=== PATIENT | male | born 1960 | race Caucasian/White ===

== ENCOUNTER 2017-08-23 09:18 | Day surgery (SDC) | END 2017-08-23 21:34 | disposition home or self-care (01) | DX: Z12.11 Encounter for screening for malignant neoplasm of colon (principal); K63.5 Polyp of colon; K64.8 Other hemorrhoids; I10 Essential (primary) hypertension | CPT/HCPCS: 45378; 93005; J2250; J3010; Z7610 ==

== ENCOUNTER 2017-10-26 11:53 | Day surgery (SDC) | END 2017-10-26 14:42 | disposition home or self-care (01) ==

== ENCOUNTER 2017-12-28 05:20 | Inpatient (IN) | END 2018-01-04 20:20 | disposition home health service (06) | DRG 330 ==

== ENCOUNTER 2018-01-08 06:10 | Inpatient (IN) | END 2018-01-15 21:15 | disposition home or self-care (01) | DRG 862 ==

== ENCOUNTER 2018-01-18 15:30 | Outpatient (CLI) | END 2018-01-18 15:59 | disposition home or self-care (01) ==

== ENCOUNTER 2018-02-01 14:33 | Outpatient (CLI) | END 2018-02-01 15:30 | disposition home or self-care (01) ==

== ENCOUNTER 2018-11-02 07:37 | Day surgery (SDC) | payer OTHER ==
[~2018-11-02] VITALS: Ht 172.7 cm; Wt 97.2 kg
[~2018-11-02 07:37] MED LIST: AMLO-147 PO; ATOR20TA38 PO; BENA10TA4 PO; CARV25TA79 PO; FURO20TA3 PO
[2018-11-02 08:11] VITALS: Ht 172.7 cm; Wt 97.2 kg
[2018-11-02] MEDS ORDERED: CAPE500T17 PO (08:19)
[2018-11-02] MEDS ORDERED: NIFE60TA18 PO (08:19)
[2018-11-02] MEDS ORDERED: APIX5TAB PO (08:19)
[2018-11-02] MEDS ORDERED: LOSA100T15 PO (08:19)
--- NOTE | 2018-11-02 08:37 | PREAC ---
Date/Time of Note Date/Time of Note DATE: 11/02/18 TIME: 08:34 Anesthesia Eval and Record Evaluation Time Pre-Procedure Interview DATE: 11/02/18 TIME: 08:34 Age 58 Sex male NPO: 8 hrs Preoperative diagnosis screening Planned procedure colonoscopy Past Medical History Past Medical History: Includes Cardio: HTN, Dyslipidemia Musculoskeletal: Other (hx of dvt) GI: Other (hx of sigmoid colon ca) Surgery & Anesthesia Issues No known issue Meds Anticoagulation: Yes Beta Maurizio within 24 hr: Yes Active Scripts Carvedilol* (Carvedilol*) 25 Mg Tablet, 25 MG PO BID for 30 Days, TAB Prov:DOELL PACHECO 01/15/18 Furosemide* (Furosemide*) 20 Mg Tablet, 20 MG PO DAILY for 30 Days, TAB Prov:ODELL PACHECO 01/15/18 Reported Medications Capecitabine* (Xeloda*) 500 Mg Tablet, 500 MG PO BID, TAB 11/02/18 Apixaban* (Eliquis*) 5 Mg Tablet, 5 MG PO BID, TAB 11/02/18 Losartan Potassium* (Losartan Potassium*) 100 Mg Tablet, 100 MG PO DAILY, TAB 11/02/18 Nifedipine* (Nifedipine ER*) 60 Mg Tablet.sa, 60 MG PO DAILY, TAB.SA 11/02/18 Atorvastatin Calcium* (Atorvastatin Calcium*) 20 Mg Tablet, 20 MG PO QHS, #30 TAB 01/07/18 Discontinued Scripts Benazepril Hcl* (Benazepril Hcl*) 10 Mg Tablet, 10 MG PO BID for 30 Days, TAB Prov:ODELL PACHECO 01/15/18 Amlodipine Besylate* (Amlodipine Besylate*) 10 Mg Tablet, 10 MG PO DAILY for 30 Days, TAB Prov:ODELL PACHECO 01/15/18 Meds reviewed: Yes Allergies Coded Allergies: No Known Allergy (Unverified , 01/07/18) Allergies Reviewed: Yes Labs/Studies Labs Reviewed: Reviewed by anesthesiologist test: N/A Pre-procedure Exam Airway: Adequate mouth opening, Adequate thyromental dist Mallampati: Mallampati II Teeth: Normal Lung: Normal Heart: Normal ASA Physical Status ASA physical status: 2 Emergency: None Planned Anesthetic General/MAC: MAC Planned Pain Management Parenteral pain med Pre-operative Attestations Prior to commencing anesthesia and surgery, the patient was re-evaluated, there was verification of: *The patient's identity *The results of appropriate recent lab work and preoperative vital signs *The above evaluation not changing prior to induction *Anesthetic plan, risk benefits, alternative and complications discussed with patient/family; questions answered; patient/family understands, accepts and wishes to proceed. JERRY HAIRSTON Nov 02, 2018 08:37
[2018-11-02] MEDS ORDERED: PROPOFOL 60 ML ONE (08:41)
[2018-11-02] MEDS ORDERED: LIDOCAINE 2% (SDV) 5 ML INJ ONE (08:42)
[2018-11-02 08:47] VITALS: BP 163/79; PULSE 51; RESP 14
[2018-11-02] MEDS ORDERED: ONDANSETRON 4 MG INJ IV PRN (09:00)
[2018-11-02] MEDS ORDERED: hydrALAzine 20 MG INJ IV PRN (09:00)
[2018-11-02] MEDS ORDERED: EPHEDrine SULFATE 50 MG/5 ML SYG IV PRN (09:00)
[2018-11-02] MEDS ORDERED: LABETALOL HCL 20MG INJ IV PRN (09:00)
[2018-11-02] MEDS ORDERED: FENTAnyl 50 MCG/ML VIAL IV PRN (09:00)
--- NOTE | 2018-11-02 09:49 | PAC ---
Date/Time of Note Date/Time of Note DATE: 11/02/18 TIME: 09:49 Post-Anesthesia Notes Post-Anesthesia Note Last documented vital signs Vital Signs Date Temp Pulse Resp B/P (MAP) Pulse Ox O2 O2 Flow FiO2 Time Delivery Rate 11/02/18 98.3 51 14 163/79 97 Room Air 09:47 (107) Activity: WNL Respiratory function: WNL Cardiovascular function: WNL Mental status: Baseline Pain reasonably controlled: Yes Hydration appropriate: Yes Nausea/Vomiting absent: Yes JERRY HAIRSTON Nov 02, 2018 09:49
== END 2018-11-02 12:17 | disposition home or self-care (01) ==
LOC: GIL 07:37
PROVIDERS: ATTEND Internal Medicine Gastroenterology
DX: Z12.11 Encounter for screening for malignant neoplasm of colon (principal); D12.0 Benign neoplasm of cecum; Z85.038 Personal history of other malignant neoplasm of large intestine; I10 Essential (primary) hypertension
CPT/HCPCS: 45380; 88305; Z7610

== ENCOUNTER 2019-01-21 06:18 | Inpatient (IN) | payer OTHER ==
[~2019-01-21] VITALS: Ht 170.2 cm; Wt 101.0 kg
[2019-01-21] VITALS (36 sets, daily range): BP systolic 87–134; BP diastolic 51–78; PULSE 48–93; RESP 12–20; BMI 32.5
[~2019-01-21 06:18] MED LIST changes: -AMLO-147 PO; +APIX5TAB PO; -BENA10TA4 PO; +CAPE500T17 PO; +LOSA100T15 PO; +NIFE60TA18 PO
[2019-01-21] MEDS ORDERED: BUPIVACAINE 0.25% (MPF) 30 ML INJ ONE (06:56)
[2019-01-21] MEDS ORDERED: DESFLURANE 15 MIN ONE (07:00)
[2019-01-21] MEDS ORDERED: SUGAMMADEX SODIUM 200 MG/2 ML VIAL IV ONE (07:00)
[2019-01-21] MEDS ORDERED: ONDANSETRON 4 MG INJ ONE (07:00)
[2019-01-21] MEDS ORDERED: hydrALAzine 20 MG INJ ONE (07:00)
[2019-01-21] MEDS ORDERED: ROCURONIUM 50 MG INJ ONE ×2 (07:00→07:18)
[2019-01-21] MEDS ORDERED: ALBUMIN HUMAN 25% 100 ML INJ ONE (07:00)
[2019-01-21] MEDS ORDERED: metroNIDAZOLE 500 MG/100 ML NS IVPB ONE (07:00)
[2019-01-21] MEDS ORDERED: FENTAnyl 50 MCG/ML VIAL ONE ×2 (07:18→09:35)
[2019-01-21] MEDS ORDERED: PROPOFOL 20 ML ONE (07:18)
[2019-01-21] MEDS ORDERED: SUCCINYLCHOLINE CHLORIDE 100 MG/5 ML SYG IV ONE (07:18)
[2019-01-21] MEDS ORDERED: MIDAZOLAM 1 MG/ML 2 ML INJ ONE (07:18)
[2019-01-21] MEDS ORDERED: ROPIVACAINE 0.5 % 30 ML VIAL ONE (07:19)
[2019-01-21] MEDS ORDERED: LIDOCAINE 2% (SDV) 5 ML INJ ONE (07:19)
[2019-01-21] MEDS ORDERED: METOCLOPRAMIDE 10 MG INJ ONE (07:19)
--- NOTE | 2019-01-21 07:36 | PREAC ---
Date/Time of Note Date/Time of Note DATE: 01/21/19 TIME: 07:34 Anesthesia Eval and Record Evaluation Time Pre-Procedure Interview DATE: 01/21/19 TIME: 07:34 Age 59 Sex male NPO: 8 hrs Preoperative diagnosis colostomy w/ herniation Planned procedure reversal of colostomy w/ mesh reinforcement Past Medical History Past Medical History: Includes Cardio: HTN, Dyslipidemia, Arrythmia, CHF Endo: Diabetes Pulm: Smoking Hx Neuro: Peripheral neuropathy Renal: CKD Hepatic: Other (s/p colostomy) GI: Obesity Heme: Coagulation disorder, Other (elequis, 2 days ago) Surgery & Anesthesia Issues No known issue Meds Anticoagulation: No Beta Maurizio within 24 hr: Yes Active Scripts Carvedilol* (Carvedilol*) 25 Mg Tablet, 25 MG PO BID for 30 Days, TAB Prov:ODELL PACHECO 01/15/18 Furosemide* (Furosemide*) 20 Mg Tablet, 20 MG PO DAILY for 30 Days, TAB Prov:CRISTAL PACHECOA 01/15/18 Reported Medications Apixaban* (Eliquis*) 5 Mg Tablet, 5 MG PO BID, TAB 11/02/18 Losartan Potassium* (Losartan Potassium*) 100 Mg Tablet, 100 MG PO DAILY, TAB 11/02/18 Nifedipine* (Nifedipine ER*) 60 Mg Tablet.sa, 60 MG PO BID, TAB.SA 11/02/18 Atorvastatin Calcium* (Atorvastatin Calcium*) 20 Mg Tablet, 20 MG PO QHS, #30 TAB 01/07/18 Discontinued Reported Medications Capecitabine* (Xeloda*) 500 Mg Tablet, 500 MG PO BID, TAB 11/02/18 Meds reviewed: Yes Allergies Coded Allergies: No Known Allergy (Unverified , 01/21/19) Allergies Reviewed: Yes Labs/Studies Labs Reviewed: Reviewed by anesthesiologist test: N/A Studies: ECG, CXR Pre-procedure Exam Airway: Adequate mouth opening, Adequate thyromental dist Mallampati: Mallampati III Teeth: Normal Lung: Normal Heart: Normal ASA Physical Status ASA physical status: 3 Emergency: None Planned Anesthetic General/MAC: ETT Planned Pain Management Sub-arachniod narcotics, Parenteral pain med, Other neuraxial med, Local by surgeon Pre-operative Attestations Prior to commencing anesthesia and surgery, the patient was re-evaluated, there was verification of: *The patient's identity *The results of appropriate recent lab work and preoperative vital signs *The above evaluation not changing prior to induction *Anesthetic plan, risk benefits, alternative and complications discussed with patient/family; questions answered; patient/family understands, accepts and wishes to proceed. MAGNOLIA MENDEZ MD Jan 21, 2019 07:36
[2019-01-21] MEDS ORDERED: morphine SULFATE/PF (10 MG/10 ML) INJ ONE (07:43)
[2019-01-21] MEDS ORDERED: EPINEPHrine 1 MG INJ ONE (07:45)
[2019-01-21] MEDS ORDERED: MIDAZOLAM 1 MG/ML 2 ML INJ IV PRN (08:00)
[2019-01-21] MEDS ORDERED: LEVALBUTEROL (NEB) 1.25 MG/0.5 ML AMP HHN PRN (08:00)
[2019-01-21] MEDS ORDERED: CEFAZOLIN 2 GM/50 ML (PMX) 50 ML IVPB ONE (08:00)
[2019-01-21] MEDS ORDERED: HYDROmorphONE 1 MG/5 ML IV SYRINGE IV PRN ×3 (08:00)
[2019-01-21] MEDS ORDERED: LORAZEPAM 2 MG INJ IV PRN (08:00)
[2019-01-21] MEDS ORDERED: ONDANSETRON 4 MG INJ IV PRN ×3 (08:00→12:00)
[2019-01-21] MEDS ORDERED: SOD CHLORIDE 0.9% 1,000 ML IV SCH (08:00)
[2019-01-21] MEDS ORDERED: DIPHENHYDRAMINE 50 MG INJ IV PRN ×3 (08:00→12:00)
[2019-01-21] MEDS ORDERED: IPRATROPIUM (NEB) 0.5 MG/2.5 ML AMP HHN PRN (08:00)
[2019-01-21] MEDS ORDERED: FENTAnyl 50 MCG/ML VIAL IV PRN ×2 (08:00)
[2019-01-21] MEDS ORDERED: MEPERIDINE 25 MG INJ IV PRN (08:00)
[2019-01-21] MEDS ORDERED: hydrALAzine 20 MG INJ IV PRN ×2 (08:00→14:00)
[2019-01-21] MEDS ORDERED: LABETALOL HCL 20MG INJ IV PRN (08:00)
[2019-01-21] MEDS ORDERED: AMPICILLIN/SULB 3 GM/NS (PMX) 100 ML IVPB SCH (09:00)
[2019-01-21] MEDS ORDERED: NALBUPHINE HCL (10 MG/1 ML) INJ IV PRN ×2 (10:00→12:00)
[2019-01-21] MEDS ORDERED: KETOROLAC 30 MG INJ IV PRN ×2 (10:00→12:00)
[2019-01-21] MEDS ORDERED: HYDROmorphONE 0.5 MG/0.5 ML SYG IV PRN ×2 (10:00)
[2019-01-21] MEDS ORDERED: FENTAnyl 2MCG/ML-ROPIV 0.2% 100 ML BAG EPI SCH ×2 (10:00→12:00)
[2019-01-21] MEDS ORDERED: ZOLPIDEM 5 MG TAB PO PRN ×2 (10:00→12:00)
[2019-01-21] MEDS ORDERED: HYDROCODONE/APAP (5/325) TAB PO PRN ×2 (10:00→12:00)
[2019-01-21] MEDS ORDERED: NALOXONE (0.4 MG/ML) INJ IV PRN ×2 (10:00→12:00)
[2019-01-21] MEDS ORDERED: HYDROmorphONE 2 MG/ML SYG ONE (10:08)
--- NOTE | 2019-01-21 11:43 | OPR ---
Date/Time of Note Date/Time of Note DATE: 01/21/19 TIME: 11:30 Operative Report Procedure Date: Jan 21, 2019 Preoperative Diagnosis colon cancer and colostomy status Postoperative Diagnosis same Operation/Procedure Performed 1. open hartmans' reversal and colorectal low pelvic anastomosis 2. segmental partial colectomy 3. open extensive lysis of adhesions 4. splenic flexure mobilization 5. open incarcerated incisional hernia repair 6. open incarcerated parastomal hernia repair 7. implantation of biologic mesh in the abdomen cpt code 88837 8. excision of cicatrix Surgeon see signature line Life Enrichment Director none Anesthesia Type: general Estimated Blood Loss: 100 - 150 ml's Transfusion none Specimen segmental colon Grafts/Implants none Complications none Pt Condition Post Procedure: stable Indications This is a 59-year-old male with a history of colon cancer in the sigmoid colon. He underwent segmental resection and end colostomy. He is undergone his chemotherapy and radiation is functional. He requests reversal of his colostomy. Risks alternatives benefits and percent were discussed the patient. In particular due to his comorbidities and his hypercoagulable state he was told that he has increased risk of bleeding infection and perioperative morbidity. Patient expressed understanding and request surgical anastomosis of his colon to allow colonic continuity. Ample time was given for questions and all questions were answered. Patient expressed understanding consents to the operation. Procedure Description Patient taken to the OR and prepped and draped in usual sterile fashion. Surgical time was performed. IV antibiotics given. 2-0 silk was used to close the colostomy in a running fashion to control any further output. Circular incision was made around the prior colostomy site with a 15 blade. Careful lysis of adhesion was performed with careful blunt dissection and with cautery the colostomy was completely mobilized. The large parastomal hernia was identified and this was also manually reduced after an extensive lysis of adhesions. The colostomy was then flipped over into the abdomen. Generous midline incision was made with a 10 blade excising the prior cicatrix. Cautery was used to go down to the area of the fascia. The fascia was opened with a 10 blade going layer by layer. Entry into the abdomen was made. This incision was taken up superiorly and inferiorly. At the superior mid epigastric region and incarcerated incisional hernia was identified. Incarcerated incisional hernia was then manually reduced. From this point extensive lysis of adhesions was performed along the wall of the abdomen laterally on both sides of the right and left. Additionally small bowel adhesions were also lysed. The colon was traced back to the colostomy site and further lysis of adhesions performed to allow full mobilization of the colostomy. Segmental resection of the colostomy and additional distal colon on the left side was sent for specimen. Doppler ultrasound was used to identify good vascular flow to the colostomy pedicle. Additional lysis of adhesions was performed to allow mobilization of the left colon the transverse colon. This was then reexamined for good hemostasis. The colon edges were freshened and good blood flow was visually seen in a pulsatile fashion. Additionally the pedicle was identified under direct Doppler which showed a biphasic flow to the colon. Additional lysis of adhesions was performed around the pelvis all the way down to the area of the rectum. Further lysis of adhesions was performed to allow good reach of the colon to the pelvis without any tension along the tension-free anastomosis. Anal sizers were used from 25 and then to 29 and this was manipulated all the way to the pelvis. The parastomal hernia was then addressed by closure with [id number] #1 Prolene. Underlay biologic 8 layer a soft mesh was then used to augment the repair of the parastomal hernia. The anvil portion was then sutured to the proximal end colostomy site with a pursestring 2-0 Prolene. The bladder was held out of harm's way by retraction with [id number] 0 chromic. EEA 29 mm stapler was then placed into the rectum and manipulated forward. The EEA stapler was opened and this was attached to the anvil of the colostomy site. This was then closed down and sealed and held down for approximately 1 minute. The EEA stapler was then fired. Leak test was performed by placing irrigation in the pelvis and closing the proximal colon to the anastomotic site. The rectum was then insufflated with bulb syringe with air. There is no evidence of any air leakage. Additionally 2 donuts were identified and the EEA stapler. Good hemostasis was ensured in the pelvic site. The fascia was then closed with the #1 loop PDS from inferior to superior and superior inferior and the incarcerated incisional hernia was repaired with running of the #1 loop PDS. This was then tied down in the middle. The surgical wound was irrigated and cleaned. The colostomy site was then irrigated and cleaned and then closed partially with a pursestring 2-0 Vicryl. Skin was closed using skin abbey. Dry dressings were applied. Ann FERNANDEZ Jan 21, 2019 11:43
--- NOTE | 2019-01-21 11:45 | PAC ---
Date/Time of Note Date/Time of Note DATE: 01/21/19 TIME: 11:45 Post-Anesthesia Notes Post-Anesthesia Note Last documented vital signs Vital Signs Date Temp Pulse Resp B/P (MAP) Pulse Ox O2 O2 Flow FiO2 Time Delivery Rate 01/21/19 97.1 48 16 133/78 99 Room Air 07:39 (96) Activity: WNL Respiratory function: WNL Cardiovascular function: WNL Mental status: Baseline Pain reasonably controlled: Yes Hydration appropriate: Yes Nausea/Vomiting absent: Yes MAGNOLIA MENDEZ MD Jan 21, 2019 11:45
[2019-01-21] MEDS ORDERED: TRIMETHOBENZAMIDE 100 MG/ML VIAL IM PRN (12:00)
[2019-01-21] MEDS: SOD CHLORIDE 0.9% 1,000 ML IV SCH ×2 (13:33→21:29)
--- NOTE | 2019-01-21 14:27 | HP ---
DATE OF ADMISSION: 01/21/2019 CHIEF COMPLAINT AND HISTORY OF PRESENT ILLNESS: The patient is a 59-year-old gentleman with a history of colon cancer diagnosed back in 10/2017. The patient in 12/2017 underwent left colon resection and leslee evaluation showed moderately differentiated metastatic carcinoma in 1/9 nodes. The patient was given chemotherapy and had an end colostomy. The patient was brought in to hospital today and underwent open Reagan reversal and colorectal low pelvic anastomosis, segmental partial colectomy, lysis of adhesion, open incarcerated incisional hernia repair, open incarcerated parastomal hernia repair. The patient is being admitted for the repair. Postoperatively, the patient is lethargic, but responds to verbal commands. Denies any chest pain. Since admission the patient has not had any vomiting, no reported fever or chills, no reported focal weakness. The patient's blood pressure has been running in the low 100s and high 90s. The patient also has history of left upper extremity deep venous thrombosis and had been taking Eliquis for that. The patient also has history of hypertension, dyslipidemia and was on multiple antihypertensive medications, although the patient's blood pressure is close to 100. The patient is moving all extremities, no resting leg pain. Other than postoperative pain, rest of the systems were unremarkable. PAST MEDICAL HISTORY: The patient has history of paroxysmal atrial fibrillation and was seen by Dr. Alejandro last year. Echocardiogram revealed EF of 60% to 65%. The patient's past medical history significant for postoperative abdominal wound infection during last admission and sepsis with bacteremia secondary to abdominal wound infection. ALLERGIES: None. SOCIAL HISTORY: No smoking or alcohol. FAMILY HISTORY: Noncontributory. PHYSICAL EXAMINATION: GENERAL: The patient sleepy, but arousable. VITAL SIGNS: Temperature 98.2, pulse 58, respirations 16, blood pressure 101/58, O2 saturation 100% on 3 liters. HEENT: No eye discharge or redness. Nose is normal. Oropharynx grossly negative. NECK: No mass. CHEST: Fairly clear. CARDIOVASCULAR: S1, S2 normal. ABDOMEN: Deferred due to recent surgery CVS: S1, S2 normal. The patient clinically is in sinus rhythm. No murmur or gallop. ABDOMEN: Soft, nontender, and reactive. Reduction was deferred due to recent surgery. EXTREMITIES: No edema. Pedal pulses palpable. SKIN: Without acute rash. NEUROLOGIC: The patient is lethargic but arousable and follows simple commands and postoperative labs revealed WBC 14.3, hemoglobin 12.3, platelet 208. Sodium 143, potassium 4.2, BUN 15, creatinine 1.1, glucose 171. Liver enzymes normal. IMPRESSION: 1. Stage III sigmoid colon cancer, status post surgery and chemo in 2018, now has been admitted for open Reagan reversal and colorectal low pelvic anastomosis. 2. History of hypertension. 3. Paroxysmal atrial fibrillation. 4. History of left upper extremity deep venous thrombosis. PLAN: The patient admitted on medical floor. The patient will be kept n.p.o. and be started on IV fluids. Will hold anticoagulants at this time due to recent surgery. For pain control, patient will also be given IV Unasyn and Flagyl as per protocol. For pain control, patient will be on Toradol, [place], and IV Dilaudid. We will use SCDs for DVT prophylaxis. We will add IV hydralazine on p.r.n. basis for hypertension since BP is only 101. All oral medications will be withheld. spoke with his children and staff nurse, Praveena. Repeat CBC and CMP will be obtained on 01/22/2019. Dictated By: ANDREY ZHENG MD AB/NTS Conf#: [id number] DID#: [id number] CC: JACOB FERNANDEZ MD;*EndCC* MTDD
[2019-01-21] MEDS: AMPICILLIN/SULB 3 GM/NS (PMX) 100 ML IVPB SCH ×2 (15:48→22:22)
[2019-01-21] MEDS: metroNIDAZOLE 500 MG/NS (PMX) 100 ML IVPB SCH (17:21)
[2019-01-21] MEDS ORDERED: ACETAMINOPHEN 1000MG/100ML IV 100 ML IVPB PRN (22:00)
[2019-01-22] VITALS (20 sets, daily range): BP systolic 95–140; BP diastolic 55–80; PULSE 88–123; RESP 18–22
[2019-01-22] MEDS ORDERED: SOD CHLORIDE 0.9% 1,000 ML IV ONE ×2 (00:30)
[2019-01-22] MEDS: metroNIDAZOLE 500 MG/NS (PMX) 100 ML IVPB SCH ×2 (00:40→08:46)
[2019-01-22] MEDS: SOD CHLORIDE 0.9% 1,000 ML IV SCH ×4 (01:43→17:29)
[2019-01-22] MEDS: AMPICILLIN/SULB 3 GM/NS (PMX) 100 ML IVPB SCH ×2 (03:15→10:07)
[2019-01-22] MEDS: HYDROmorphONE 0.5 MG/0.5 ML SYG IV PRN ×3 (08:53→20:21)
--- NOTE | 2019-01-22 13:48 | PN ---
Date/Time of Note Date/Time of Note DATE: 01/22/19 TIME: 13:43 Assessment/Plan VTE Prophylaxis Risk score (from [facility] [place]0 risk: 8 SCD applied (from [facility] [place]): Yes Pharmacological prophylaxis: NA/contraindicated Pharm contraindication: surgical contra Lines/Catheters IV [facility] Type (from [facility] Peripheral IV Assessment/Plan Hospital Course Patient with marginal urine output and increased BUN and creatinine continue IV fluids, pain is adequately controlled with IV Dilaudid patient's continues n.p.o. with ice chips only Assessment/Plan -S/p open Reagan reversal and colorectal low pelvic anastomosis, segmental partial colectomy, and open incarcerated incisional and parastomal hernia repairs with mesh by Dr. Art on 01/21/2019. Continue IV fluids and antibiotics. Continue Dilaudid and Toradol as needed for pain and Zofran as needed for nausea. -Stage III sigmoid colon cancer, status post surgery and chemo in 2018. -Acute kidney injury on chronic kidney disease, continue IV fluids monitor urine output BUN and creatinine. Dr. Stuart is asked to see patient in nephrology consultation. -Diastolic CHF -Paroxysmal atrial fibrillation, currently in sinus rhythm -Obstructive sleep apnea -History of hypertension -History of left upper extremity DVT Further recommendations based on clinical course. Plan of care discussed with Dr. Fox. Result Diagram: 01/22/1918 01/22/19 0918 Results 24hrs Laboratory Tests Test 01/22/19 03:07 01/22/19 09:18 White Blood Count 4.4 #L 7.4 # Red Blood Count 4.05 L 4.20 L Hemoglobin 12.4 L 13.0 L Hematocrit 37.2 L 38.6 L Mean Corpuscular Volume 91.9 91.9 Mean Corpuscular Hemoglobin 30.6 31.0 Mean Corpuscular Hemoglobin Concent 33.3 33.7 Red Cell Distribution Width 12.4 12.7 Platelet Count 153 # 153 Mean Platelet Volume 11.2 H 11.8 H Immature Granulocytes % 0.500 H 0.700 H Neutrophils % 82.9 H Lymphocytes % 6.7 L Monocytes % 9.4 Eosinophils % 0.0 Basophils % 0.5 Nucleated Red Blood Cells % 0.0 0.0 Immature Granulocytes # 0.020 0.050 H Neutrophils # 3.6 Lymphocytes # 0.3 L Monocytes # 0.4 Eosinophils # 0.0 Basophils # 0.0 Nucleated Red Blood Cells # 0.0 Segmented Neutrophils % (Manual) 12 L Band Neutrophils % (Manual) 65 H Lymphocytes % (Manual) 7 L Reactive Lymphocytes % (Manual) 1 H Monocytes % (Manual) 7 Metamyelocytes % (manual) 3 H Myelocytes % (Manual) 5 H Neutrophils # (Manual) 1.2 L Band Neutrophils # 4.8 H Lymphocytes (Manual) 0.5 L Reactive Lymphocytes # 0.0 Monocytes # (Manual) 0.5 Metamyelocytes # 0.2 H Myelocytes # 0.3 H Platelet Estimate NORMAL Polychromasia 1+ Poikilocytosis 1+ Anisocytosis 2+ Microcytosis 2+ Sodium Level 144 Potassium Level 4.3 Chloride Level 114 H Carbon Dioxide Level 16 L Anion Gap 14 H Blood Urea Nitrogen 33 #H Creatinine 3.22 #H Est Glomerular Filtrat Rate mL/min 20 L Glucose Level 78 # Calcium Level 7.9 L Total Bilirubin 1.0 Direct Bilirubin 0.00 Indirect Bilirubin 1.0 Aspartate Amino Transf (AST/SGOT) 25 Alanine Aminotransferase (ALT/SGPT) 23 Alkaline Phosphatase 48 Total Protein 5.4 L Albumin 3.0 L Globulin 2.40 Albumin/Globulin Ratio 1.25 Exam/Review of Systems Exam Vitals Vital Signs Date Temp Pulse Resp B/P (MAP) Pulse Ox O2 O2 Flow FiO2 Time Delivery Rate 01/22/19 99.1 105 18 115/74 91 11:35 (88) 01/22/19 Nasal 3.0 08:10 Cannula Intake and Output 01/21/19 01/21/19 01/22/19 1515:00 23:00 07:00 IntakeIntake Total 3200 ml 630 ml 2970 ml OutputOutput Total 350 ml 200 ml 125 ml BalanceBalance 2850 ml 430 ml 2845 ml Constitutional: alert, oriented (3) Head: normocephalic Neck: supple Respiratory: clear to auscultation Cardiovascular: regular rate and rhythm Gastrointestinal: soft, other (s/p surgery) Genitourinary - Male: other ([place]) Musculoskeletal: nl extremities to inspection Extremities: normal pulses Neurological: nl mental status Skin: nl turgor Results Results 24hrs Laboratory Tests Test 01/22/19 03:07 01/22/19 09:18 White Blood Count 4.4 #L 7.4 # Red Blood Count 4.05 L 4.20 L Hemoglobin 12.4 L 13.0 L Hematocrit 37.2 L 38.6 L Mean Corpuscular Volume 91.9 91.9 Mean Corpuscular Hemoglobin 30.6 31.0 Mean Corpuscular Hemoglobin Concent 33.3 33.7 Red Cell Distribution Width 12.4 12.7 Platelet Count 153 # 153 Mean Platelet Volume 11.2 H 11.8 H Immature Granulocytes % 0.500 H 0.700 H Neutrophils % 82.9 H Lymphocytes % 6.7 L Monocytes % 9.4 Eosinophils % 0.0 Basophils % 0.5 Nucleated Red Blood Cells % 0.0 0.0 Immature Granulocytes # 0.020 0.050 H Neutrophils # 3.6 Lymphocytes # 0.3 L Monocytes # 0.4 Eosinophils # 0.0 Basophils # 0.0 Nucleated Red Blood Cells # 0.0 Segmented Neutrophils % (Manual) 12 L Band Neutrophils % (Manual) 65 H Lymphocytes % (Manual) 7 L Reactive Lymphocytes % (Manual) 1 H Monocytes % (Manual) 7 Metamyelocytes % (manual) 3 H Myelocytes % (Manual) 5 H Neutrophils # (Manual) 1.2 L Band Neutrophils # 4.8 H Lymphocytes (Manual) 0.5 L Reactive Lymphocytes # 0.0 Monocytes # (Manual) 0.5 Metamyelocytes # 0.2 H Myelocytes # 0.3 H Platelet Estimate NORMAL Polychromasia 1+ Poikilocytosis 1+ Anisocytosis 2+ Microcytosis 2+ Sodium Level 144 Potassium Level 4.3 Chloride Level 114 H Carbon Dioxide Level 16 L Anion Gap 14 H Blood Urea Nitrogen 33 #H Creatinine 3.22 #H Est Glomerular Filtrat Rate mL/min 20 L Glucose Level 78 # Calcium Level 7.9 L Total Bilirubin 1.0 Direct Bilirubin 0.00 Indirect Bilirubin 1.0 Aspartate Amino Transf (AST/SGOT) 25 Alanine Aminotransferase (ALT/SGPT) 23 Alkaline Phosphatase 48 Total Protein 5.4 L Albumin 3.0 L Globulin 2.40 Albumin/Globulin Ratio 1.25 Medications Medication Current Medications Miscellaneous Information (* Miscellaneous Pharmacy Order) DURAMORPH: 3.5MG EPIDU... GIVEN NEURAXIAL XX ; Start 01/21/19 at 10:00 Ampicillin Sodium/ Sulbactam Sodium 100 ml @ 200 mls/hr Q6H IVPB Last administered on 01/22/19at 10:07; Admin Dose 200 MLS/HR; Start 01/21/19 at 15:00; Stop 01/22/19 at 14:59 Metronidazole 100 ml @ 100 mls/hr Q8H IVPB Last administered on 01/22/19at 08:46; Admin Dose 100 MLS/HR; Start 01/21/19 at 17:00; Stop 01/22/19 at 16:59 Sodium Chloride 1,000 ml @ 100 mls/hr Q10H IV Last administered on 01/22/19at 01:43; Admin Dose 100 MLS/HR; Start 01/21/19 at 11:29 Hydromorphone HCl (Dilaudid) 0.2 mg Q2H PRN IV .PAIN 1-5 Last administered on 01/22/19at 08:53; Admin Dose 0.2 MG; Start 01/21/19 at 12:00 Hydromorphone HCl (Dilaudid) 0.4 mg Q2H PRN IV .PAIN 6-10; Start 01/21/19 at 12:00 Ketorolac Tromethamine (Toradol) 30 mg Q6H PRN IV .PAIN 6-10; Start 01/21/19 at 12:00; Stop 01/24/19 at 11:59 Acetaminophen/ Hydrocodone Bitart ([place] (5/325)) 1 tab Q4H PRN PO .PAIN 4-6; Start 01/21/19 at 12:00 Diphenhydramine HCl (Benadryl) 25 mg Q4H PRN IV .PRURITUS; Start 01/21/19 at 12:00 Nalbuphine HCl (Nubain) 10 mg Q4H PRN IV .PRURITUS; Start 01/21/19 at 12:00 Ondansetron HCl (Zofran Inj) 4 mg Q6H PRN IV .NAUSEA/VOMITING; Start 01/21/19 at 12:00 Trimethobenzamide HCl (Tigan) 200 mg Q6H PRN IM .NAUSEA/VOMITING; Start 01/21/19 at 12:00 Zolpidem Tartrate (Ambien) 5 mg HS MAY REPEAT X 1 PRN PO .INSOMNIA; Start 01/21/19 at 12:00 Naloxone HCl (Narcan) 0.2 mg Q2M PRN IV .RESP RATE; Start 01/21/19 at 12:00 Hydralazine HCl (Apresoline) 10 mg Q4H PRN IV >150/95; Start 01/21/19 at 14:00 Acetaminophen 100 ml @ 400 mls/hr Q6H PRN IVPB PAIN/FEVER; Start 01/21/19 at 22:00; Stop 01/22/19 at 21:59 ODELL PACHECO Jan 22, 2019 13:48
--- NOTE | 2019-01-22 14:06 | PN ---
Date/Time of Note Date/Time of Note DATE: 01/22/19 TIME: 14:04 Assessment/Plan VTE Prophylaxis Risk score (from [facility] [place])>0 risk: 7 SCD applied (from 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 renal insufficiency on top of baseline insufficiency continue fluid bolus and monitoring closely Result Diagram: 01/22/1918 01/22/1918 Results 24hrs Laboratory Tests Test 01/22/19 03:07 01/22/19 09:18 White Blood Count 4.4 #L 7.4 # Red Blood Count 4.05 L 4.20 L Hemoglobin 12.4 L 13.0 L Hematocrit 37.2 L 38.6 L Mean Corpuscular Volume 91.9 91.9 Mean Corpuscular Hemoglobin 30.6 31.0 Mean Corpuscular Hemoglobin Concent 33.3 33.7 Red Cell Distribution Width 12.4 12.7 Platelet Count 153 # 153 Mean Platelet Volume 11.2 H 11.8 H Immature Granulocytes % 0.500 H 0.700 H Neutrophils % 82.9 H Lymphocytes % 6.7 L Monocytes % 9.4 Eosinophils % 0.0 Basophils % 0.5 Nucleated Red Blood Cells % 0.0 0.0 Immature Granulocytes # 0.020 0.050 H Neutrophils # 3.6 Lymphocytes # 0.3 L Monocytes # 0.4 Eosinophils # 0.0 Basophils # 0.0 Nucleated Red Blood Cells # 0.0 Segmented Neutrophils % (Manual) 12 L Band Neutrophils % (Manual) 65 H Lymphocytes % (Manual) 7 L Reactive Lymphocytes % (Manual) 1 H Monocytes % (Manual) 7 Metamyelocytes % (manual) 3 H Myelocytes % (Manual) 5 H Neutrophils # (Manual) 1.2 L Band Neutrophils # 4.8 H Lymphocytes (Manual) 0.5 L Reactive Lymphocytes # 0.0 Monocytes # (Manual) 0.5 Metamyelocytes # 0.2 H Myelocytes # 0.3 H Platelet Estimate NORMAL Polychromasia 1+ Poikilocytosis 1+ Anisocytosis 2+ Microcytosis 2+ Sodium Level 144 Potassium Level 4.3 Chloride Level 114 H Carbon Dioxide Level 16 L Anion Gap 14 H Blood Urea Nitrogen 33 #H Creatinine 3.22 #H Est Glomerular Filtrat Rate mL/min 20 L Glucose Level 78 # Calcium Level 7.9 L Total Bilirubin 1.0 Direct Bilirubin 0.00 Indirect Bilirubin 1.0 Aspartate Amino Transf (AST/SGOT) 25 Alanine Aminotransferase (ALT/SGPT) 23 Alkaline Phosphatase 48 Total Protein 5.4 L Albumin 3.0 L Globulin 2.40 Albumin/Globulin Ratio 1.25 Subjective 24 Hr Interval Summary Free Text/Dictation increased Cr. suspect prerenal on top of baseline renal insufficiency albumin was given by anesthesiologist during the operationg otherwise doing well Exam/Review of Systems Exam Vitals Vital Signs Date Temp Pulse Resp B/P (MAP) Pulse Ox O2 O2 Flow FiO2 Time Delivery Rate 01/22/19 107 12:01 01/22/19 99.1 18 115/74 91 11:35 (88) 01/22/19 Nasal 3.0 08:10 Cannula Intake and Output 01/21/19 01/21/19 01/22/19 1515:00 23:00 07:00 IntakeIntake Total 3200 ml 630 ml 2970 ml OutputOutput Total 350 ml 200 ml 125 ml BalanceBalance 2850 ml 430 ml 2845 ml Exam c/d/i Results Results 24hrs Laboratory Tests Test 01/22/19 03:07 01/22/19 09:18 White Blood Count 4.4 #L 7.4 # Red Blood Count 4.05 L 4.20 L Hemoglobin 12.4 L 13.0 L Hematocrit 37.2 L 38.6 L Mean Corpuscular Volume 91.9 91.9 Mean Corpuscular Hemoglobin 30.6 31.0 Mean Corpuscular Hemoglobin Concent 33.3 33.7 Red Cell Distribution Width 12.4 12.7 Platelet Count 153 # 153 Mean Platelet Volume 11.2 H 11.8 H Immature Granulocytes % 0.500 H 0.700 H Neutrophils % 82.9 H Lymphocytes % 6.7 L Monocytes % 9.4 Eosinophils % 0.0 Basophils % 0.5 Nucleated Red Blood Cells % 0.0 0.0 Immature Granulocytes # 0.020 0.050 H Neutrophils # 3.6 Lymphocytes # 0.3 L Monocytes # 0.4 Eosinophils # 0.0 Basophils # 0.0 Nucleated Red Blood Cells # 0.0 Segmented Neutrophils % (Manual) 12 L Band Neutrophils % (Manual) 65 H Lymphocytes % (Manual) 7 L Reactive Lymphocytes % (Manual) 1 H Monocytes % (Manual) 7 Metamyelocytes % (manual) 3 H Myelocytes % (Manual) 5 H Neutrophils # (Manual) 1.2 L Band Neutrophils # 4.8 H Lymphocytes (Manual) 0.5 L Reactive Lymphocytes # 0.0 Monocytes # (Manual) 0.5 Metamyelocytes # 0.2 H Myelocytes # 0.3 H Platelet Estimate NORMAL Polychromasia 1+ Poikilocytosis 1+ Anisocytosis 2+ Microcytosis 2+ Sodium Level 144 Potassium Level 4.3 Chloride Level 114 H Carbon Dioxide Level 16 L Anion Gap 14 H Blood Urea Nitrogen 33 #H Creatinine 3.22 #H Est Glomerular Filtrat Rate mL/min 20 L Glucose Level 78 # Calcium Level 7.9 L Total Bilirubin 1.0 Direct Bilirubin 0.00 Indirect Bilirubin 1.0 Aspartate Amino Transf (AST/SGOT) 25 Alanine Aminotransferase (ALT/SGPT) 23 Alkaline Phosphatase 48 Total Protein 5.4 L Albumin 3.0 L Globulin 2.40 Albumin/Globulin Ratio 1.25 Medications Medication Current Medications Miscellaneous Information (* Miscellaneous Pharmacy Order) DURAMORPH: 3.5MG EPIDU... GIVEN NEURAXIAL XX ; Start 01/21/19 at 10:00 Ampicillin Sodium/ Sulbactam Sodium 100 ml @ 200 mls/hr Q6H IVPB Last administered on 01/22/19at 10:07; Admin Dose 200 MLS/HR; Start 01/21/19 at 15:00; Stop 01/22/19 at 14:59 Metronidazole 100 ml @ 100 mls/hr Q8H IVPB Last administered on 01/22/19at 08:46; Admin Dose 100 MLS/HR; Start 01/21/19 at 17:00; Stop 01/22/19 at 16:59 Sodium Chloride 1,000 ml @ 100 mls/hr Q10H IV Last administered on 01/22/19at 01:43; Admin Dose 100 MLS/HR; Start 01/21/19 at 11:29 Hydromorphone HCl (Dilaudid) 0.2 mg Q2H PRN IV .PAIN 1-5 Last administered on 01/22/19at 08:53; Admin Dose 0.2 MG; Start 01/21/19 at 12:00 Hydromorphone HCl (Dilaudid) 0.4 mg Q2H PRN IV .PAIN 6-10; Start 01/21/19 at 12:00 Ketorolac Tromethamine (Toradol) 30 mg Q6H PRN IV .PAIN 6-10; Start 01/21/19 at 12:00; Stop 01/24/19 at 11:59 Acetaminophen/ Hydrocodone Bitart ([place] (5/325)) 1 tab Q4H PRN PO .PAIN 4-6; Start 01/21/19 at 12:00 Diphenhydramine HCl (Benadryl) 25 mg Q4H PRN IV .PRURITUS; Start 01/21/19 at 12:00 Nalbuphine HCl (Nubain) 10 mg Q4H PRN IV .PRURITUS; Start 01/21/19 at 12:00 Ondansetron HCl (Zofran Inj) 4 mg Q6H PRN IV .NAUSEA/VOMITING; Start 01/21/19 at 12:00 Trimethobenzamide HCl (Tigan) 200 mg Q6H PRN IM .NAUSEA/VOMITING; Start 01/21/19 at 12:00 Zolpidem Tartrate (Ambien) 5 mg HS MAY REPEAT X 1 PRN PO .INSOMNIA; Start 01/21/19 at 12:00 Naloxone HCl (Narcan) 0.2 mg Q2M PRN IV .RESP RATE; Start 01/21/19 at 12:00 Hydralazine HCl (Apresoline) 10 mg Q4H PRN IV >150/95; Start 01/21/19 at 14:00 Acetaminophen 100 ml @ 400 mls/hr Q6H PRN IVPB PAIN/FEVER; Start 01/21/19 at 22:00; Stop 01/22/19 at 21:59 Ann FERNANDEZ Jan 22, 2019 14:06
[2019-01-22] MEDS ORDERED: SODIUM CHLORIDE 0.9% 1L BAG IV* ONE (14:30)
--- NOTE | 2019-01-22 17:01 | OPPN ---
Date/Time of Note Date/Time of Note DATE: 01/22/19 TIME: 16:58 Anesthesia Follow up Anesthesia Follow up Last documented vital signs Vital Signs Date Temp Pulse Resp B/P (MAP) Pulse Ox O2 O2 Flow FiO2 Time Delivery Rate 01/22/19 112 16:01 01/22/19 100.0 21 132/75 95 15:21 (94) 01/22/19 Nasal 3.0 08:10 Cannula Respiratory function: WNL Cardiovascular function: WNL Comments Patient seen and examined at bedside. VSS w/ BP 110/74, P 81, RR 18, SaO2 on RA. Pt reports only a 2/10 pain scale and after discussion with attending surgeon, decision made to D/C epidural catheter and ambulate when able. Positioned L lateral, occlusive dressings removed, and epidural catheter removed completely with tip documented as intact. Pt tolerated process well and bandaid placed over catheter site. Site without erythema, induration of signs of infection. Thank you for allowing my assistance with this patient's care. MAGNOLIA MENDEZ MD Jan 22, 2019 17:01
--- NOTE | 2019-01-22 20:36 | CONS ---
DATE OF ADMISSION: 01/21/2019 DATE OF CONSULTATION: 01/22/2019 TYPE OF CONSULTATION: Nephrology. REASON FOR CONSULTATION: Acute kidney injury. PHYSICIAN REQUESTING CONSULT: Andrey Fox MD HISTORY OF PRESENT ILLNESS: This is a 59-year-old male with a past medical history of colon cancer d iagnosed in 10/2017. The patient is status post left colon resection. The patient is status post ch emotherapy. The patient had end colostomy. The patient also has history of hypertension and AFib. The patient was brought in to [facility] to undergo open Reagan's reversal. The patient underwent surgical takedown of his colostomy. Following the procedure, the patient was admit susanna to telemetry for continued evaluation. Prior to surgery, the patient denied any hemoptysis, citlaly temesis or hematochezia. In terms of patient's renal history, the patient denies any prior history of acute kidney injury or C KD. Denies any frothy urine, any rashes. Following surgery, the patient had elevated creatinine of 3.22 mg/dL. The patient had marginal urinary output. PAST MEDICAL HISTORY: As stated above, history of colon cancer, history of hypertension, history of AFib, history of left upper extremity DVT. FAMILY HISTORY: No family history of kidney disease. SOCIAL HISTORY: The patient does not drink, smoke or do drugs. ALLERGIES: NONE. PAST SURGICAL HISTORY: Status post left colon resection with end colostomy. MEDICATIONS: Have been reviewed. REVIEW OF SYSTEMS: A 14-point review of systems was conducted. Pertinent positives stated in HPI, o therwise negative. PHYSICAL EXAMINATION: VITAL SIGNS: Blood pressure is 100/62, respirations 16, pulse 70, temperature 98.2. HEENT: Head is normocephalic. NECK: Supple. HEART: Regular rate. LUNGS: Show diminished breath sounds at base. ABDOMEN: Soft, positive tenderness to palpation. Positive dressing clean, dry, intact. DERMATOLOGIC: No rashes. MUSCULOSKELETAL: No joint effusions. NEUROLOGIC: No focal deficits. LABORATORY DATA: Show sodium 144, potassium 4.3, bicarbonate 16, BUN 33, creatinine 3.22. White cou nt 10.4, hemoglobin 13.0, platelet count is 153. IMAGING STUDIES: Reviewed. Chest x-ray shows a mild increased interstitial edema. ASSESSMENT AND PLAN: This is a 59-year-old male who presents with: 1. Oliguric acute kidney injury with previously normal baseline creatinine. Etiology of acute kidne y injury is concerning for acute tubular necrosis, possibly due to hemodynamics and questionable anes thesia-induced hypertension, NSAID use. The patient's creatinine has increased from 1.1 to 3.2 mg/dL in 24-hour period. The patient has no overt signs of uremia. Plan at this point is to do a full ev aluation. We will check UA with microanalysis, check urine electrolytes. We will check a renal ultr asound to evaluate renal parenchyma and rule out obstruction, although suspicion is low. We would co ntinue supportive care, renally dose meds, avoid nephrotoxins. Discontinue any NSAIDs. Monitor the patient closely on IV fluids. No immediate need for renal replacement therapy at this time. 2. Metabolic acidosis secondary to acute kidney injury. Monitor bicarbonate levels. No need for bi carbonate therapy. 3. Mild anemia. Monitor hemoglobin and hematocrit levels. 4. Mineral bone disorder. Monitor calcium and phosphorus level. 5. History of colon cancer. The patient is status post Reagan's reversal. We will continue to mo nitor. Follow up with general surgery. Continue pain control. 6. History of stage III sigmoid colon cancer, status post surgical resection, status post chemothera py. 7. Acute heart failure. The patient has noted pulmonary congestion, elevated jugular venous distent ion. We would deescalate IV fluids and monitor closely. 8. Obstructive sleep apnea. 9. History of hypertension. 10. Paroxysmal atrial fibrillation. Continue medical management. 11. History of left upper extremity deep venous thrombosis. Thank you, Dr. Fox, for this interesting consult. It will be a pleasure to follow patient with you throughout the hospital course. Dictated By: SUSAN ZURITA DO NR/NTS Conf#: [id number] DID#: [id number] CC: ANDREY FOX MD; JACOB FERNANDEZ MD;*EndCC*
[2019-01-23] VITALS (10 sets, daily range): BP systolic 135–149; BP diastolic 83–90; PULSE 118–137; RESP 18–20
[2019-01-23] MEDS ORDERED: FUROSEMIDE 40 MG INJ IV ONE ×2 (00:30→09:30)
[2019-01-23] MEDS: CEFTRIAXONE 1 GM/50 ML (PMX) 50 ML IVPB SCH (00:39)
--- NOTE | 2019-01-23 10:20 | PN ---
DATE: 01/23/2019 Overnight, the patient was noted to be short of breath. The patient was given diuretic therapy with improvement in urinary output. No other acute events noted. No hemoptysis, hematemesis, hematochezi a. OBJECTIVE: VITAL SIGNS: Blood pressure is 149/90, respiration 18, pulse 131, temperature 99.6. HEENT: Head is normocephalic. NECK: Supple. HEART: Regular rate. LUNGS: Show diminished breath sounds at the base. Positive crackles. ABDOMEN: Soft, nontender to palpation. No rebound or guarding. EXTREMITIES: Negative for clubbing, cyanosis, no edema. DERMATOLOGIC: No rashes. MUSCULOSKELETAL: No joint effusion. NEUROLOGIC: No change in exam. MEDICATIONS: The patient's medications have been reviewed. LABORATORY DATA: Shows sodium 146, BUN 38, creatinine 2.78, magnesium 1.6. Urinalysis was reviewed, showed a of less than 1%, a white count of 13.1, hemoglobin 13.0, platelet count is 149. ASSESSMENT AND PLAN: 1. Nonoliguric acute kidney injury with previously normal baseline creatinine. Etiology of JULIETA is c oncerning for possible acute tubular necrosis likely due to hemodynamics, possible NSAID use. Zay t's renal function has improved in the last 24 hours. Recommendation at this point would be to willam nue current treatment plan. I will deescalate IV fluids as the patient is volume overloaded. Will c ontinue diuretic therapy, monitor renal function closely. Continue supportive care, renally dose all meds, avoid nephrotoxins. 2. Volume overload. The patient has noted pulmonary congestion. Will discontinue normal saline. C ontinue diuretic therapy, monitor I's and O's closely. 3. Acute hypoxemic respiratory failure, severe volume overload. Continue diuretic therapy. 4. Tachyarrhythmia, possibly due to heart failure. Continue to monitor. Other etiologies may be fr om anxiety and pain. Continue pain medication. Consider cardiology evaluation. 5. Metabolic acidosis secondary to acute kidney injury. Continue to monitor. 6. Mild anemia. Monitor hemoglobin and hematocrit levels. 7. Mineral bone disorder. Monitor calcium and phosphorus levels. 8. History of colon cancer, status post Reagan reversal, continue to monitor. 9. History of hypertension. 10. History of deep venous thrombosis. Dictated By: SUSAN HERNANDEZ/MARIAN Conf#: [id number] DID#: [id number] CC: ANDREY ZHENG MD; JACOB FERNANDEZ MD;*EndCC*
[2019-01-23] MEDS: DEXTROSE 5% 1,000 ML IV SCH (10:31)
[2019-01-23] MEDS ORDERED: MAGNESIUM SULFATE 2 GM/50 ML 50 ML IVPB ONE (11:00)
[2019-01-23] MEDS: HYDROmorphONE 0.5 MG/0.5 ML SYG IV PRN ×2 (11:36→20:14)
--- NOTE | 2019-01-23 14:25 | PN ---
Date/Time of Note Date/Time of Note DATE: 01/23/19 TIME: 14:13 Assessment/Plan VTE Prophylaxis Risk score (from [facility])>0 risk: 7 SCD applied (from [facility]): Yes Pharmacological prophylaxis: NA/contraindicated Pharm contraindication: surgical contra Lines/Catheters IV [facility]ter Type [facility]from [facility] Peripheral IV Urinary Cath still in place: Yes Reason Cath still needed: urinary retention Assessment/Plan Hospital Course Patient with tachycardia, low-grade fever, and increased conjectured congestion per chest x-ray. Urine output improved with Lasix. Pending 2D echo. Dr. Alejandro is asked to see patient in cardiology consultation. Patient had bowel movement and was able to get up and work with physical therapy earlier today and currently feels tired. Patient's condition and plan of care discussed with patient and patient's son at the bedside. Assessment/Plan -S/p open Reagan reversal and colorectal low pelvic anastomosis, segmental partial colectomy, and open incarcerated incisional and parastomal hernia repairs with mesh by Dr. Art on 01/21/2019. Continue IV fluids and antibiotics. Continue Dilaudid and Toradol as needed for pain and Zofran as needed for nausea. -Stage III sigmoid colon cancer, status post surgery and chemo in 2018. -Acute kidney injury on chronic kidney disease, monitor urine output BUN and creatinine. Dr. Stuart is following in nephrology consultation. -Acute diastolic CHF -Paroxysmal atrial fibrillation, currently in sinus rhythm -Obstructive sleep apnea -History of hypertension -History of left upper extremity DVT Further recommendations based on clinical course. Plan of care discussed with Dr. Fox. Result Diagram: 01/23/19 0515 01/23/19 0515 Results 24hrs Laboratory Tests Test 01/22/19 20:00 01/23/19 05:15 Urine Color JACQUELINE Urine Clarity CLOUDY A Urine pH 5.0 Urine Specific [place] 1.021 Urine Ketones NEGATIVE Urine Nitrite NEGATIVE Urine Bilirubin NEGATIVE Urine Urobilinogen NEGATIVE Urine Leukocyte Esterase NEGATIVE Urine Microscopic RBC 8 H Urine Microscopic WBC 0 Urine Mucus FEW A Urine Hemoglobin 2+ H Urine Random Creatinine 205.16 Urine Random Sodium < 13 L Urine Glucose NEGATIVE Urine Total Protein 45.0 H White Blood Count 13.1 #H Red Blood Count 4.28 L Hemoglobin 13.0 L Hematocrit 39.0 L Mean Corpuscular Volume 91.1 Mean Corpuscular Hemoglobin 30.4 Mean Corpuscular Hemoglobin Concent 33.3 Red Cell Distribution Width 13.0 Platelet Count 149 Mean Platelet Volume 11.8 H Immature Granulocytes % 8.100 H Neutrophils % Segmented Neutrophils % (Manual) 23 L Band Neutrophils % (Manual) 65 H Lymphocytes % Lymphocytes % (Manual) 5 L Monocytes % Monocytes % (Manual) 3 Eosinophils % Basophils % Metamyelocytes % (manual) 4 H Nucleated Red Blood Cells % 0.0 Immature Granulocytes # 1.060 H Neutrophils # Neutrophils # (Manual) 4.1 Band Neutrophils # 8.5 H Lymphocytes (Manual) 0.6 L Lymphocytes # Monocytes # Monocytes # (Manual) 0.3 Eosinophils # Basophils # Metamyelocytes # 0.5 H Nucleated Red Blood Cells # Platelet Estimate NORMAL Poikilocytosis 1+ Anisocytosis 1+ Microcytosis 1+ Sodium Level 146 H Potassium Level 4.0 Chloride Level 117 H Carbon Dioxide Level 16 L Anion Gap 13 Blood Urea Nitrogen 38 H Creatinine 2.78 H Est Glomerular Filtrat Rate mL/min 23 L Glucose Level 92 Calcium Level 8.5 Phosphorus Level 4.7 Magnesium Level 1.6 L Exam/Review of Systems Exam Vitals Vital Signs Date Temp Pulse Resp B/P (MAP) Pulse Ox O2 O2 Flow FiO2 Time Delivery Rate 01/23/19 136 12:46 01/23/19 99.9 18 144/83 93 12:14 (103) 01/23/19 Nasal 3.0 08:44 Cannula Intake and Output 01/22/19 01/22/19 01/23/19 1515:00 23:00 07:00 IntakeIntake Total 200 ml 3058 ml 720 ml OutputOutput Total 260 ml 275 ml 1400 ml BalanceBalance -60 ml 2783 ml -680 ml Exam Constitutional: alert, oriented Respiratory: clear to auscultation Cardiovascular: regular rate and rhythm Gastrointestinal: soft, other (s/p surgery) Genitourinary - Male: other ([place]) Musculoskeletal: nl extremities to inspection Extremities: normal pulses Neurological: nl mental status Results Results 24hrs Laboratory Tests Test 01/22/19 20:00 01/23/19 05:15 Urine Color JACQUELINE Urine Clarity CLOUDY A Urine pH 5.0 Urine Specific [place] 1.021 Urine Ketones NEGATIVE Urine Nitrite NEGATIVE Urine Bilirubin NEGATIVE Urine Urobilinogen NEGATIVE Urine Leukocyte Esterase NEGATIVE Urine Microscopic RBC 8 H Urine Microscopic WBC 0 Urine Mucus FEW A Urine Hemoglobin 2+ H Urine Random Creatinine 205.16 Urine Random Sodium < 13 L Urine Glucose NEGATIVE Urine Total Protein 45.0 H White Blood Count 13.1 #H Red Blood Count 4.28 L Hemoglobin 13.0 L Hematocrit 39.0 L Mean Corpuscular Volume 91.1 Mean Corpuscular Hemoglobin 30.4 Mean Corpuscular Hemoglobin Concent 33.3 Red Cell Distribution Width 13.0 Platelet Count 149 Mean Platelet Volume 11.8 H Immature Granulocytes % 8.100 H Neutrophils % Segmented Neutrophils % (Manual) 23 L Band Neutrophils % (Manual) 65 H Lymphocytes % Lymphocytes % (Manual) 5 L Monocytes % Monocytes % (Manual) 3 Eosinophils % Basophils % Metamyelocytes % (manual) 4 H Nucleated Red Blood Cells % 0.0 Immature Granulocytes # 1.060 H Neutrophils # Neutrophils # (Manual) 4.1 Band Neutrophils # 8.5 H Lymphocytes (Manual) 0.6 L Lymphocytes # Monocytes # Monocytes # (Manual) 0.3 Eosinophils # Basophils # Metamyelocytes # 0.5 H Nucleated Red Blood Cells # Platelet Estimate NORMAL Poikilocytosis 1+ Anisocytosis 1+ Microcytosis 1+ Sodium Level 146 H Potassium Level 4.0 Chloride Level 117 H Carbon Dioxide Level 16 L Anion Gap 13 Blood Urea Nitrogen 38 H Creatinine 2.78 H Est Glomerular Filtrat Rate mL/min 23 L Glucose Level 92 Calcium Level 8.5 Phosphorus Level 4.7 Magnesium Level 1.6 L Medications Medication Current Medications Miscellaneous Information (* Miscellaneous Pharmacy Order) DURAMORPH: 3.5MG EPIDU... GIVEN NEURAXIAL XX ; Start 01/21/19 at 10:00 Hydromorphone HCl (Dilaudid) 0.2 mg Q2H PRN IV .PAIN 1-5 Last administered on 01/22/19at 16:08; Admin Dose 0.2 MG; Start 01/21/19 at 12:00 Hydromorphone HCl (Dilaudid) 0.4 mg Q2H PRN IV .PAIN 6-10 Last administered on 01/23/19at 11:36; Admin Dose 0.4 MG; Start 01/21/19 at 12:00 Acetaminophen/ Hydrocodone Bitart ([place] (5/325)) 1 tab Q4H PRN PO .PAIN 4-6; Start 01/21/19 at 12:00 Diphenhydramine HCl (Benadryl) 25 mg Q4H PRN IV .PRURITUS; Start 01/21/19 at 12:00 Nalbuphine HCl (Nubain) 10 mg Q4H PRN IV .PRURITUS; Start 01/21/19 at 12:00 Ondansetron HCl (Zofran Inj) 4 mg Q6H PRN IV .NAUSEA/VOMITING Last administered on 01/22/19at 23:48; Admin Dose 4 MG; Start 01/21/19 at 12:00 Trimethobenzamide HCl (Tigan) 200 mg Q6H PRN IM .NAUSEA/VOMITING; Start 01/21/19 at 12:00 Zolpidem Tartrate (Ambien) 5 mg HS MAY REPEAT X 1 PRN PO .INSOMNIA; Start 01/21/19 at 12:00 Naloxone HCl (Narcan) 0.2 mg Q2M PRN IV .RESP RATE; Start 01/21/19 at 12:00 Hydralazine HCl (Apresoline) 10 mg Q4H PRN IV >150/95; Start 01/21/19 at 14:00 Ceftriaxone Sodium 50 ml @ 100 mls/hr Q24H IVPB Last administered on 01/23/19 00:39; Admin Dose 100 MLS/HR; Start 01/23/19 at 00:30 Dextrose 1,000 ml @ 40 mls/hr Q24H IV Last administered on 01/23/19at 10:31; Admin Dose 40 MLS/HR; Start 01/23/19 at 09:30 ODELL PACHECO Jan 23, 2019 14:23
[2019-01-23] MEDS ORDERED: DIGOXIN 500 MCG INJ IV ONE (20:30)
--- NOTE | 2019-01-23 23:44 | RADRPT ---
Echocardiogram Report Patient Name: ASHTYN PATRICKPatient ID: [id number] : 1960 (59y )Study Date: 01/23/2019 7:45:06 AM Gender: MAccession #: [id number] Tech: [facility] Location: Ref.Physician: ANDREY ZHENG Height(Cm): BSA: Weight(Kg): Quality: AdequateAccount #: Procedures: Echocardiographic Report: Transthoracic echocardiogram with complete 2D, M-Mode, and doppler examination. Indications: Post-op, and Tachycardia. Measurements: 2D/M Mode Doppler Measurement Value Normal Range Measurement Value Normal Range LVIDd 2D 3.4 [ 4.2 - 5.8 ] cm CARLY VTI 2.9 [ 2.0 - 4.0 ] cm2 LVIDs 2D 2.5 [ 2.5 - 4.0 ] cm AV Mean José Miguel 1.4 [ 70.0 - 90.0 ] cm/sec LVPWd 2D 1.5 [ 0.6 - 1.0 ] cm AV Mean PG 9.0 [ 2.0 - 4.0 ] mmHg IVSd 2D 1.6 [ 0.6 - 1.0 ] cm AV VTI 30.0 cm AoR Diam 2D 3.0 [ 2.6 - 3.4 ] cm LVOT Mean José Miguel 0.9 [ 60.0 - 80.0 ] cm/sec EDV 2D 47.4 [ 62.0 - 150.0 ] ml LVOT Mean PG 4.0 [ 1.0 - 3.0 ] mmHg ESV 2D 22.3 [ 21.0 - 61.0 ] ml LVOT Peak José Miguel 1.4 [ 70.0 - 110.0 ] cm/sec EF 2D 53.0 [ 52.0 - 72.0 ] percent LVOT Peak PG 8.0 [ 2.0 - 6.0 ] mmHg LA Dimen 2D 2.9 [ 3.0 - 4.0 ] cm LVOT VTI 23.2 [ 20.0 - 30.0 ] cm LVOT Diam 2.2 [ 2.3 - 2.9 ] cm TR Peak José Miguel 3.3 [ 100.0 - 280.0 ] cm/sec TR Peak PG 44.0 mmHg RVSP 52.0 [ 10.0 - 36.0 ] mmHg RA Pressure 8.0 mmHg Findings: Left Ventricle: Normal left ventricular systolic function. Normal left ventricular cavity size. Moderate concentric left ventricular hypertrophy. Ejection fraction is visually estimated at 65 %. Tissue Doppler/Mitral Doppler indices are consistent with impaired relaxation (Stage I diastolic dysfunction). Right Ventricle: Normal right ventricular size. Normal right ventricular systolic function. Left Atrium: The left atrium is normal in size. Right Atrium: The right atrium is normal in size. Mitral Valve: Mitral valve leaflets appear mildly thickened. Mild mitral annular calcification. Trace mitral regurgitation. Aortic Valve: Aortic valve Max velocity 2.18 m/sec. Max PG 19.00 mmHg. Mean PG 9.00 mmHg. Aortic sclerosis without significant stenosis. Trace aortic valve regurgitation. Tricuspid Valve: Normal appearance of the tricuspid valve. Estimated peak PA systolic pressure 52 mmHg. There is mild tricuspid regurgitation. Pulmonic Valve: Pulmonic valve not well visualized. Pericardium: Small pericardial effusion. Aorta: Normal aortic root. IVC: The IVC is not well visualized. Conclusions: Normal left ventricular systolic function. Normal left ventricular cavity size. Moderate concentric left ventricular hypertrophy. Ejection fraction is visually estimated at 65 %. Tissue Doppler/Mitral Doppler indices are consistent with impaired relaxation (Stage I diastolic dysfunction). Mitral valve leaflets appear mildly thickened. Mild mitral annular calcification. Trace mitral regurgitation. Aortic valve Max velocity 2.18 m/sec. Max PG 19.00 mmHg. Mean PG 9.00 mmHg. Aortic sclerosis without significant stenosis. Trace aortic valve regurgitation. Normal appearance of the tricuspid valve. Estimated peak PA systolic pressure 52 mmHg. There is mild tricuspid regurgitation. Electronically Signed By: Mihir Alejandro 2019-01-23 23:43:15 PDT
[2019-01-24] VITALS (16 sets, daily range): BP systolic 121–164; BP diastolic 77–93; PULSE 47–180; RESP 18–22
[2019-01-24] MEDS: CEFTRIAXONE 1 GM/50 ML (PMX) 50 ML IVPB SCH (01:09)
--- NOTE | 2019-01-24 01:21 | CONS ---
DATE OF ADMISSION: 01/21/2019 DATE OF CONSULTATION: 01/23/2019 REASON FOR CONSULTATION: Tachycardia, history of paroxysmal atrial fibrillation, hypertension. REQUESTING PHYSICIAN: Andrey Zheng MD HISTORY OF PRESENT ILLNESS: Mr. Kelly is a 59-year-old male with history of colon cancer chrystal gnosed back in 10/2017, status post colostomy. The patient was given chemotherapy. The patient was subsequently brought back for reversal of his colostomy which he underwent 01/21/[address] Fernandez. Po stoperatively, the patient has had significant pain and episodes of tachycardia very recently up to t he 120s and 130s starting in the evening last night. Additionally, the patient has had low-grade fev ers of 100 to 100.5. The patient at this time denies chest pain. Has significant abdominal pain. N o significant shortness of breath. PAST MEDICAL HISTORY: As above in the HPI. MEDICATIONS CURRENTLY IN THE HOSPITAL: 1. Ceftriaxone. 2. Hydralazine 10 IV push q.4h. p.r.n. 3. Fork p.r.n. 4. Benadryl p.r.n. 5. Dilaudid 0.4 mg q.2h. p.r.n. pain. ALLERGIES: NO KNOWN DRUG ALLERGIES. SOCIAL HISTORY: No current tobacco, ETOH or illicit drug use. FAMILY HISTORY: No history of sudden cardiac or early CAD. REVIEW OF SYSTEMS: As above in the HPI. CONSTITUTIONAL: No fevers, chills. Brief positive fevers. PULMONARY: No current shortness of breath. CARDIOVASCULAR: Tachycardia. GASTROINTESTINAL: Status post reversal of colostomy. GENITOURINARY: No hematuria. MUSCULOSKELETAL: Degenerative joint disease. PSYCHIATRIC: No documented psych history. NEUROLOGIC: No documented history of CVA. ENDOCRINE: No documented history of diabetes mellitus. PHYSICAL EXAMINATION: VITAL SIGNS: T current most recent 100.5, blood pressure 141/83, pulse 118, O2 sat 93% on 3 liters. GENERAL: The patient is alert, awake, in significant pain. NECK: JVP approximately 8 to 9 cm of water. CHEST: Fair movement throughout with mildly decreased breath sounds at the bases bilaterally with po or inspiratory effort. HEART: Tachycardic, regular rhythm, normal S1, S2, I/ systolic murmur. ABDOMEN: Distended. Dressing covering over the front of the abdomen with significant tenderness to palpation diffusely. EXTREMITIES: No significant pitting edema, 1+ pulses bilateral posterior tibial. LABORATORY DATA: Most recent from today, white count of 13.1, hemoglobin 13, platelet count of 149. Sodium 146, potassium 4, creatinine 2.78, BUN of 38. UA negative. Magnesium 1.6. IMAGING STUDIES: A chest x-ray from the revealing a mildly increased interstitial edema suggesti ng cardiopulmonary congestion, mildly increased bibasilar atelectasis. ELECTROCARDIOGRAM: No recent EKGs in the chart for my review at this time. The only EKG available f or my review at this time is what appears to be the patient's outpatient preop EKG which reveals a si nus bradycardia at a rate of 54, normal axis, normal intervals with lateral biphasic T-wave abnormali ties, isolated in leads aVL. IMPRESSION: 1. Tachycardia, at this time sinus tachycardia in the setting of significant pain, fevers, status po st surgery. 2. Possible congestive heart failure by chest x-ray with the patient having the onset of acute renal failure at this time. 3. Hypertension, mildly elevated. 4. Postoperative status post reversal colostomy. 5. Fevers postop. 6. Renal failure, acute. 7. History of colon carcinoma status post prior colectomy with colostomy. 8. Hypernatremia, mild. 9. Hypomagnesemia. 10. Leukocytosis. RECOMMENDATIONS: 1. At this time, we would maintain patient on telemetry monitoring to follow rhythm and rate control closely. 2. We would initiate patient on IV push beta meka as necessary to improve overall heart rate cont rol. 3. We would continue the patient's IV fluid hydration at this time. 4. Continue the patient's antibiotics and follow up all culture data. 5. We will increase pain control. 6. We will check a 2D echo to reassess patient's ejection fraction, last known to be 60% to 65% by sridevi sloan, 01/10/2019. Thank you for allowing me to take part in the care of this patient. I will continue to follow along very closely with you, with recommendations to be made as the patient progresses through his [facility] clinical course. Dictated By: EUGENE EMERY/MARIAN Conf#: [id number] DID#: [id number] CC: JACOB FERNANDEZ MD; ANDREY ZHENG MD;*EndCC*
[2019-01-24] MEDS: HYDROmorphONE 0.5 MG/0.5 ML SYG IV PRN ×4 (02:02→23:39)
[2019-01-24] MEDS: DEXTROSE 5% 1,000 ML IV SCH (08:24)
--- NOTE | 2019-01-24 08:43 | PN ---
Date/Time of Note Date/Time of Note DATE: 01/24/19 TIME: 08:41 Assessment/Plan VTE Prophylaxis Risk score (from Ns)>0 risk: 7 SCD applied (from Ns): Yes Pharmacological prophylaxis: other Lines/Catheters IV Catheter Type (from Nrsg): Peripheral IV Urinary Cath still in place: Yes Reason Cath still needed: other (indicate) (renal insufficiency) Assessment/Plan Assessment/Plan colon cancer s/p resection s/p chemo and was re anastomosed doing well but will start diet slowly due to his chemo will start abx empirically due to increased wbc JULIETA on CKD slowly improving start clears today Result Diagram: 01/24/1951201/24/1913 Results 24hrs Laboratory Tests Test 01/24/19 00:22 01/24/19 05:13 01/24/19 05:14 Troponin I 0.028 0.015 White Blood Count 15.9 #H Red Blood Count 4.02 L Hemoglobin 12.3 L Hematocrit 36.6 L Mean Corpuscular Volume 91.0 Mean Corpuscular Hemoglobin 30.6 Mean Corpuscular Hemoglobin Concent 33.6 Red Cell Distribution Width 13.4 Platelet Count 135 L Mean Platelet Volume 12.1 H Immature Granulocytes % 0.400 Neutrophils % Segmented Neutrophils % (Manual) 92 H Band Neutrophils % (Manual) 1 Lymphocytes % Lymphocytes % (Manual) 2 L Monocytes % Monocytes % (Manual) 5 Eosinophils % Basophils % Nucleated Red Blood Cells % 0.0 Immature Granulocytes # 0.070 H Neutrophils # Neutrophils # (Manual) 14.6 H Band Neutrophils # 0.1 Lymphocytes (Manual) 0.3 L Lymphocytes # Monocytes # Monocytes # (Manual) 0.7 Eosinophils # Basophils # Nucleated Red Blood Cells # Platelet Estimate DECREASED Giant Platelets 1 H Polychromasia 1+ Poikilocytosis 1+ Anisocytosis 1+ Sodium Level 144 Potassium Level 4.0 Chloride Level 113 H Carbon Dioxide Level 19 L Anion Gap 12 Blood Urea Nitrogen 53 H Creatinine 2.29 H Est Glomerular Filtrat Rate mL/min 29 L Glucose Level 140 # Calcium Level 8.6 Phosphorus Level 4.1 Magnesium Level 2.2 Subjective 24 Hr Interval Summary Free Text/Dictation patient doing well, walking and pain managed appropriately increased WBC acute on chronic renal insufficiency improving had two bm minimal flatus Exam/Review of Systems Exam Vitals Vital Signs Date Temp Pulse Resp B/P (MAP) Pulse Ox O2 O2 Flow FiO2 Time Delivery Rate 01/24/19 114 08:01 01/24/19 99.9 22 164/86 96 Nasal 5.0 07:14 (112) Cannula Intake and Output 01/23/19 01/23/19 01/24/19 1515:00 23:00 07:00 IntakeIntake Total 50 ml 100 ml 1050 ml OutputOutput Total 1300 ml 800 ml BalanceBalance 50 ml -1200 ml 250 ml Exam c/d/i ostomy packing removal no peritoneal signs Results Results 24hrs Laboratory Tests Test 01/24/19 00:22 01/24/19 05:13 01/24/19 05:14 Troponin I 0.028 0.015 White Blood Count 15.9 #H Red Blood Count 4.02 L Hemoglobin 12.3 L Hematocrit 36.6 L Mean Corpuscular Volume 91.0 Mean Corpuscular Hemoglobin 30.6 Mean Corpuscular Hemoglobin Concent 33.6 Red Cell Distribution Width 13.4 Platelet Count 135 L Mean Platelet Volume 12.1 H Immature Granulocytes % 0.400 Neutrophils % Segmented Neutrophils % (Manual) 92 H Band Neutrophils % (Manual) 1 Lymphocytes % Lymphocytes % (Manual) 2 L Monocytes % Monocytes % (Manual) 5 Eosinophils % Basophils % Nucleated Red Blood Cells % 0.0 Immature Granulocytes # 0.070 H Neutrophils # Neutrophils # (Manual) 14.6 H Band Neutrophils # 0.1 Lymphocytes (Manual) 0.3 L Lymphocytes # Monocytes # Monocytes # (Manual) 0.7 Eosinophils # Basophils # Nucleated Red Blood Cells # Platelet Estimate DECREASED Giant Platelets 1 H Polychromasia 1+ Poikilocytosis 1+ Anisocytosis 1+ Sodium Level 144 Potassium Level 4.0 Chloride Level 113 H Carbon Dioxide Level 19 L Anion Gap 12 Blood Urea Nitrogen 53 H Creatinine 2.29 H Est Glomerular Filtrat Rate mL/min 29 L Glucose Level 140 # Calcium Level 8.6 Phosphorus Level 4.1 Magnesium Level 2.2 Medications Medication Current Medications Miscellaneous Information (* Miscellaneous Pharmacy Order) DURAMORPH: 3.5MG EPIDU... GIVEN NEURAXIAL XX ; Start 01/21/19 at 10:00 Hydromorphone HCl (Dilaudid) 0.2 mg Q2H PRN IV .PAIN 1-5 Last administered on 01/22/19at 16:08; Admin Dose 0.2 MG; Start 01/21/19 at 12:00 Hydromorphone HCl (Dilaudid) 0.4 mg Q2H PRN IV .PAIN 6-10 Last administered on 01/24/19at 05:34; Admin Dose 0.4 MG; Start 01/21/19 at 12:00 Acetaminophen/ Hydrocodone Bitart ([place] (5/325)) 1 tab Q4H PRN PO .PAIN 4-6; Start 01/21/19 at 12:00 Diphenhydramine HCl (Benadryl) 25 mg Q4H PRN IV .PRURITUS; Start 01/21/19 at 12: 00 Nalbuphine HCl (Nubain) 10 mg Q4H PRN IV .PRURITUS; Start 01/21/19 at 12:00 Ondansetron HCl (Zofran Inj) 4 mg Q6H PRN IV .NAUSEA/VOMITING Last administered on 01/22/19at 23:48; Admin Dose 4 MG; Start 01/21/19 at 12:00 Trimethobenzamide HCl (Tigan) 200 mg Q6H PRN IM .NAUSEA/VOMITING; Start 01/21/19 at 12:00 Zolpidem Tartrate (Ambien) 5 mg HS MAY REPEAT X 1 PRN PO .INSOMNIA; Start 01/21/19 at 12:00 Naloxone HCl (Narcan) 0.2 mg Q2M PRN IV .RESP RATE; Start 01/21/19 at 12:00 Hydralazine HCl (Apresoline) 10 mg Q4H PRN IV >150/95 Last administered on 01/24/19at 05:34; Admin Dose 10 MG; Start 01/21/19 at 14:00 Dextrose 1,000 ml @ 40 mls/hr Q24H IV Last administered on 01/24/19at 08:24; Admin Dose 40 MLS/HR; Start 01/23/19 at 09:30 Metoprolol Tartrate (Lopressor) 5 mg Q4H PRN IV HR>110 HOld SBP<100; Start 01/23/19 at 20:30 Piperacillin Sod/ Tazobactam Sod 100 ml @ 200 mls/hr Q8 IVPB ; Start 01/24/19 at 09:00; Status UNV Metronidazole 100 ml @ 100 mls/hr Q8 IVPB ; Start 01/24/19 at 09:00; Status Ann PENALOZA Jan 24, 2019 08:43
[2019-01-24] MEDS: PIPER-TAZO 3.375 GM IV (PMX) 100 ML IVPB SCH ×3 (09:21→21:30)
[2019-01-24] MEDS: metroNIDAZOLE 500 MG/NS (PMX) 100 ML IVPB SCH ×3 (09:22→22:36)
--- NOTE | 2019-01-24 09:23 | PN ---
DATE: 01/24/2019 SUBJECTIVE: The patient continues to have abdominal pain. The patient has shortness of breath, stab le on 5 liters nasal cannula. No other acute events noted. OBJECTIVE: VITAL SIGNS: Blood pressure is 164/86, respiration 22, pulse 111, temperature 98.9. Patient's I's a nd O's reviewed. HEENT: Head is normocephalic. NECK: Supple. HEART: Regular rate. LUNGS: Show diminished breath sounds at the base. ABDOMEN: Soft, nontender to palpation without rebound or guarding. EXTREMITIES: Negative for clubbing, cyanosis, no edema. DERMATOLOGIC: No rashes. MUSCULOSKELETAL: No joint effusion. NEUROLOGIC: No change in exam. MEDICATIONS: Reviewed. LABORATORY DATA: Shows sodium 144, potassium 4.0, chloride 113, bicarbonate 19, BUN 53, creatinine 2 .29. White count 15.9, hemoglobin 12.3, platelet count is 135. ASSESSMENT AND PLAN: 1. Nonoliguric acute kidney injury with previously normal baseline creatinine. Etiology of acute ki dney injury is secondary to acute tubular necrosis due to hemodynamics, NSAID use. The patient's danya al function has been improving as the patient is entering recovery phase of acute tubular necrosis. At this point, continue current treatment plan. Continue supportive care, renally dose all meds. 2. Volume overload. The patient continues to have noted pulmonary congestion, respiratory distress. The patient's IV fluids were discontinued. Will continue diuretic therapy. Consider repeating fitz st x-ray. 4. Acute hypoxic respiratory failure secondary to pulmonary edema. Continue diuretic regimen. 5. Tachyarrhythmia. Etiology is multifactorial secondary to respiratory failure, pain. Continue cu rrent pain regimen. Continue medical management and monitor. 6. Metabolic acidosis secondary to acute kidney injury. Continue current treatment plan. 7. Anemia. Continue to monitor hemoglobin and hematocrit levels. 8. Systemic inflammatory response syndrome, possible sepsis. Continue current antibiotic regimen. 9. History of colon cancer, status post Reagan reversal. 10. Hypertension. Continue current blood pressure regimen. 11. History of deep venous thrombosis. 12. Hypernatremia, improved. Continue hypertonic fluid. Dictated By: SUSAN HERNANDEZ/MARIAN Conf#: [id number] DID#: [id number] CC: JACOB FERNANDEZ MD;*EndCC*
[2019-01-24] MEDS: ALBUTEROL/IPRATROPIUM (NEB) 3 ML AMP HHN SCH ×3 (09:29→20:00)
[2019-01-24] MEDS ORDERED: FUROSEMIDE 20 MG INJ IV ONE (09:30)
--- NOTE | 2019-01-24 13:23 | CONS ---
Assessment/Plan Assessment/Plan Hospital Course (Demo Recall) IMPRESSION: 1. Tachycardia, at this time sinus tachycardia in the setting of significant pain, fevers, status post surgery. NL EF by echo 60-65 2. Possible congestive heart failure by chest x-ray with the patient having the onset of acute renal failure at this time. 3. Hypertension, mildly elevated. 4. Postoperative status post reversal colostomy. 5. Fevers postop. 6. Renal failure, acute. 7. History of colon carcinoma status post prior colectomy with colostomy. 8. Hypernatremia, mild. 9. Hypomagnesemia. 10. Leukocytosis. Recc: -Tele -IVP BB -Pain control -Continue abx's and f/u cx data -Follow volume status closely -ONgoing renal eval and follow-up Consultation Date/Type/Reason Admit Date/Time Jan 21, 2019 at 06:18 Initial Consult Date 01/23/19 Type of Consult Cardiology Reason for Consultation tachycardia Requesting Provider: ROSIE ROCHA Date/Time of Note DATE: 01/24/19 TIME: 13:19 Exam/Review of Systems Vital Signs Vitals Vital Signs Date Temp Pulse Resp B/P (MAP) Pulse Ox O2 O2 Flow FiO2 Time Delivery Rate 01/24/19 107 12:00 01/24/19 98.0 20 141/83 96 Nasal 11:07 (102) Cannula 01/24/19 5.0 40 09:32 Intake and Output 01/23/19 01/23/19 01/24/19 1515:00 23:00 07:00 IntakeIntake Total 50 ml 100 ml 1050 ml OutputOutput Total 1300 ml 800 ml BalanceBalance 50 ml -1200 ml 250 ml Exam Exam Review of Systems: CONSTITUTIONAL: No fevers, chills. PULMONARY: No sob CARDIOVASCULAR: No chest pain/palpitations GASTROINTESTINAL: abd pain GENITOURINARY: No hematuria/dysuria. MUSCULOSKELETAL: No myagias/arthalgias. PSYCHIATRIC: The patient denies depression. NEUROLOGIC: No weakness Constitutional: alert, oriented Psych: no complaints Head: normocephalic ENMT: mucosa pink and moist Neck: supple, jvd (9 cm water) Respiratory: diminished breath sounds (at bases/B) Cardiovascular: other (tachycardic, regular rhythm) Gastrointestinal: soft Musculoskeletal: muscle tone (normal) Extremities: edema (none) Neurological: other (NO focal deficits) Labs Result Diagram: 01/24/19 0513 01/24/19 0513 Results 24hrs Laboratory Tests Test 01/24/19 00:22 01/24/19 05:13 01/24/19 05:14 Troponin I 0.028 0.015 White Blood Count 15.9 #H Red Blood Count 4.02 L Hemoglobin 12.3 L Hematocrit 36.6 L Mean Corpuscular Volume 91.0 Mean Corpuscular Hemoglobin 30.6 Mean Corpuscular Hemoglobin Concent 33.6 Red Cell Distribution Width 13.4 Platelet Count 135 L Mean Platelet Volume 12.1 H Immature Granulocytes % 0.400 Neutrophils % Segmented Neutrophils % (Manual) 92 H Band Neutrophils % (Manual) 1 Lymphocytes % Lymphocytes % (Manual) 2 L Monocytes % Monocytes % (Manual) 5 Eosinophils % Basophils % Nucleated Red Blood Cells % 0.0 Immature Granulocytes # 0.070 H Neutrophils # Neutrophils # (Manual) 14.6 H Band Neutrophils # 0.1 Lymphocytes (Manual) 0.3 L Lymphocytes # Monocytes # Monocytes # (Manual) 0.7 Eosinophils # Basophils # Nucleated Red Blood Cells # Platelet Estimate DECREASED Giant Platelets 1 H Polychromasia 1+ Poikilocytosis 1+ Anisocytosis 1+ Sodium Level 144 Potassium Level 4.0 Chloride Level 113 H Carbon Dioxide Level 19 L Anion Gap 12 Blood Urea Nitrogen 53 H Creatinine 2.29 H Est Glomerular Filtrat Rate mL/min 29 L Glucose Level 140 # Calcium Level 8.6 Phosphorus Level 4.1 Magnesium Level 2.2 Medications Medications Current Medications Miscellaneous Information (* Miscellaneous Pharmacy Order) DURAMORPH: 3.5MG EPIDU... GIVEN NEURAXIAL XX ; Start 01/21/19 at 10:00 Hydromorphone HCl (Dilaudid) 0.2 mg Q2H PRN IV .PAIN 1-5 Last administered on 01/22/19at 16:08; Admin Dose 0.2 MG; Start 01/21/19 at 12:00 Hydromorphone HCl (Dilaudid) 0.4 mg Q2H PRN IV .PAIN 6-10 Last administered on 01/24/19at 05:34; Admin Dose 0.4 MG; Start 01/21/19 at 12:00 Acetaminophen/ Hydrocodone Bitart ([place] (5/325)) 1 tab Q4H PRN PO .PAIN 4-6; Start 01/21/19 at 12:00 Diphenhydramine HCl (Benadryl) 25 mg Q4H PRN IV .PRURITUS; Start 01/21/19 at 12:00 Nalbuphine HCl (Nubain) 10 mg Q4H PRN IV .PRURITUS; Start 01/21/19 at 12:00 Ondansetron HCl (Zofran Inj) 4 mg Q6H PRN IV .NAUSEA/VOMITING Last administered on 01/22/19at 23:48; Admin Dose 4 MG; Start 01/21/19 at 12:00 Trimethobenzamide HCl (Tigan) 200 mg Q6H PRN IM .NAUSEA/VOMITING; Start 01/21/19 at 12:00 Zolpidem Tartrate (Ambien) 5 mg HS MAY REPEAT X 1 PRN PO .INSOMNIA; Start 01/21/19 at 12:00 Naloxone HCl (Narcan) 0.2 mg Q2M PRN IV .RESP RATE; Start 01/21/19 at 12:00 Hydralazine HCl (Apresoline) 10 mg Q4H PRN IV >150/95 Last administered on 01/24/19at 05:34; Admin Dose 10 MG; Start 01/21/19 at 14:00 Dextrose 1,000 ml @ 40 mls/hr Q24H IV Last administered on 01/24/19at 08:24; Admin Dose 40 MLS/HR; Start 01/23/19 at 09:30 Metoprolol Tartrate (Lopressor) 5 mg Q4H PRN IV HR>110 HOld SBP<100; Start 01/23/19 at 20:30 Piperacillin Sod/ Tazobactam Sod 100 ml @ 200 mls/hr Q8 IVPB Last administered on 01/24/19 09:21; Admin Dose 200 MLS/HR; Start 01/24/19 at 09:00 Metronidazole 100 ml @ 100 mls/hr Q8 IVPB Last administered on 01/24/19at 09:22; Admin Dose 100 MLS/HR; Start 01/24/19 at 09:00 Albuterol/ Ipratropium (Duoneb) 3 ml Q6HWA RESP THERAPY HHN Last administered on 01/24/19at 09:29; Admin Dose 3 ML; Start 01/24/19 at 09:00 EUGENE ANDERSON Jan 24, 2019 13:22
--- NOTE | 2019-01-24 14:01 | PN ---
Date/Time of Note Date/Time of Note DATE: 01/24/19 TIME: 13:56 Assessment/Plan VTE Prophylaxis Risk score (from Ns)>0 risk: 10 SCD applied (from Ns): Yes Pharmacological prophylaxis: NA/contraindicated Pharm contraindication: surgical contra Lines/Catheters IV Catheter Type (from [facility]): Peripheral IV Central line still needed: Yes Urinary Cath still in place: Yes Reason Cath still needed: urinary retention Assessment/Plan Hospital Course Patient with increased leukocytosis and low-grade fever, antibiotics changed to Zosyn and Flagyl, patient is continues to have tachycardia, denies shortness of breath. Assessment/Plan -S/p open Reagan reversal and colorectal low pelvic anastomosis, segmental partial colectomy, and open incarcerated incisional and parastomal hernia repairs with mesh by Dr. Art on 01/21/2019. Continue IV fluids and antibiotics. Continue Dilaudid and Toradol as needed for pain and Zofran as needed for nausea. -Stage III sigmoid colon cancer, status post surgery and chemo in 2018. -Acute kidney injury on chronic kidney disease, monitor urine output BUN and creatinine. Dr. Stuart is following in nephrology consultation. -Acute diastolic CHF -Paroxysmal atrial fibrillation, currently in sinus rhythm -Obstructive sleep apnea -History of hypertension -History of left upper extremity DVT Further recommendations based on clinical course. Plan of care discussed with Dr. Fox. Result Diagram: 01/24/19 0513 01/24/19512 Results 24hrs Laboratory Tests Test 01/24/19 00:22 01/24/19 05:13 01/24/19 05:14 01/24/19 13:05 Troponin I 0.028 0.015 < 0.012 White Blood Count 15.9 #H Red Blood Count 4.02 L Hemoglobin 12.3 L Hematocrit 36.6 L Mean Corpuscular 91.0 Volume Mean Corpuscular 30.6 Hemoglobin Mean Corpuscular 33.6 Hemoglobin Concent Red Cell 13.4 Distribution Width Platelet Count 135 L Mean Platelet Volume 12.1 H Immature 0.400 Granulocytes % Neutrophils % Segmented 92 H Neutrophils % (Manual) Band Neutrophils % 1 (Manual) Lymphocytes % Lymphocytes % 2 L (Manual) Monocytes % Monocytes % (Manual) 5 Eosinophils % Basophils % Nucleated Red Blood 0.0 Cells % Immature 0.070 H Granulocytes # Neutrophils # Neutrophils # 14.6 H (Manual) Band Neutrophils # 0.1 Lymphocytes (Manual) 0.3 L Lymphocytes # Monocytes # Monocytes # (Manual) 0.7 Eosinophils # Basophils # Nucleated Red Blood Cells # Platelet Estimate DECREASED Giant Platelets 1 H Polychromasia 1+ Poikilocytosis 1+ Anisocytosis 1+ Sodium Level 144 Potassium Level 4.0 Chloride Level 113 H Carbon Dioxide Level 19 L Anion Gap 12 Blood Urea Nitrogen 53 H Creatinine 2.29 H Est Glomerular 29 L Filtrat Rate mL/min Glucose Level 140 # Calcium Level 8.6 Phosphorus Level 4.1 Magnesium Level 2.2 Exam/Review of Systems Exam Vitals Vital Signs Date Temp Pulse Resp B/P (MAP) Pulse Ox O2 O2 Flow FiO2 Time Delivery Rate 01/24/19 101 19 96 Nasal 5.0 40 13:40 Cannula 01/24/19 98.0 141/83 11:07 (102) Intake and Output 01/23/19 01/23/19 01/24/19 1515:00 23:00 07:00 IntakeIntake Total 50 ml 100 ml 1050 ml OutputOutput Total 1300 ml 800 ml BalanceBalance 50 ml -1200 ml 250 ml Exam Constitutional: alert, oriented Respiratory: clear to auscultation Cardiovascular: regular rate and rhythm Gastrointestinal: soft, other (s/p surgery) Genitourinary - Male: other ([place]) Musculoskeletal: nl extremities to inspection Extremities: normal pulses Neurological: nl mental status Results Results 24hrs Laboratory Tests Test 01/24/19 00:22 01/24/19 05:13 01/24/19 05:14 01/24/19 13:05 Troponin I 0.028 0.015 < 0.012 White Blood Count 15.9 #H Red Blood Count 4.02 L Hemoglobin 12.3 L Hematocrit 36.6 L Mean Corpuscular 91.0 Volume Mean Corpuscular 30.6 Hemoglobin Mean Corpuscular 33.6 Hemoglobin Concent Red Cell 13.4 Distribution Width Platelet Count 135 L Mean Platelet Volume 12.1 H Immature 0.400 Granulocytes % Neutrophils % Segmented 92 H Neutrophils % (Manual) Band Neutrophils % 1 (Manual) Lymphocytes % Lymphocytes % 2 L (Manual) Monocytes % Monocytes % (Manual) 5 Eosinophils % Basophils % Nucleated Red Blood 0.0 Cells % Immature 0.070 H Granulocytes # Neutrophils # Neutrophils # 14.6 H (Manual) Band Neutrophils # 0.1 Lymphocytes (Manual) 0.3 L Lymphocytes # Monocytes # Monocytes # (Manual) 0.7 Eosinophils # Basophils # Nucleated Red Blood Cells # Platelet Estimate DECREASED Giant Platelets 1 H Polychromasia 1+ Poikilocytosis 1+ Anisocytosis 1+ Sodium Level 144 Potassium Level 4.0 Chloride Level 113 H Carbon Dioxide Level 19 L Anion Gap 12 Blood Urea Nitrogen 53 H Creatinine 2.29 H Est Glomerular 29 L Filtrat Rate mL/min Glucose Level 140 # Calcium Level 8.6 Phosphorus Level 4.1 Magnesium Level 2.2 Medications Medication Current Medications Miscellaneous Information (* Miscellaneous Pharmacy Order) DURAMORPH: 3.5MG EPIDU... GIVEN NEURAXIAL XX ; Start 01/21/19 at 10:00 Hydromorphone HCl (Dilaudid) 0.2 mg Q2H PRN IV .PAIN 1-5 Last administered on 01/22/19at 16:08; Admin Dose 0.2 MG; Start 01/21/19 at 12:00 Hydromorphone HCl (Dilaudid) 0.4 mg Q2H PRN IV .PAIN 6-10 Last administered on 01/24/19at 05:34; Admin Dose 0.4 MG; Start 01/21/19 at 12:00 Acetaminophen/ Hydrocodone Bitart ([place] (5/325)) 1 tab Q4H PRN PO .PAIN 4-6; Start 01/21/19 at 12:00 Diphenhydramine HCl (Benadryl) 25 mg Q4H PRN IV .PRURITUS; Start 01/21/19 at 12:00 Nalbuphine HCl (Nubain) 10 mg Q4H PRN IV .PRURITUS; Start 01/21/19 at 12:00 Ondansetron HCl (Zofran Inj) 4 mg Q6H PRN IV .NAUSEA/VOMITING Last administered on 01/22/19at 23:48; Admin Dose 4 MG; Start 01/21/19 at 12:00 Trimethobenzamide HCl (Tigan) 200 mg Q6H PRN IM .NAUSEA/VOMITING; Start 01/21/19 at 12:00 Zolpidem Tartrate (Ambien) 5 mg HS MAY REPEAT X 1 PRN PO .INSOMNIA; Start 01/21/19 at 12:00 Naloxone HCl (Narcan) 0.2 mg Q2M PRN IV .RESP RATE; Start 01/21/19 at 12:00 Hydralazine HCl (Apresoline) 10 mg Q4H PRN IV >150/95 Last administered on 01/24/19at 05:34; Admin Dose 10 MG; Start 01/21/19 at 14:00 Dextrose 1,000 ml @ 40 mls/hr Q24H IV Last administered on 01/24/19at 08:24; Admin Dose 40 MLS/HR; Start 01/23/19 at 09:30 Metoprolol Tartrate (Lopressor) 5 mg Q4H PRN IV HR>110 HOld SBP<100; Start 01/23/19 at 20:30 Piperacillin Sod/ Tazobactam Sod 100 ml @ 200 mls/hr Q8 IVPB Last administered on 01/24/19at 09:21; Admin Dose 200 MLS/HR; Start 01/24/19 at 09:00 Metronidazole 100 ml @ 100 mls/hr Q8 IVPB Last administered on 01/24/19at 09:22; Admin Dose 100 MLS/HR; Start 01/24/19 at 09:00 Albuterol/ Ipratropium (Duoneb) 3 ml Q6HWA RESP THERAPY HHN Last administered on 01/24/19at 13:39; Admin Dose 3 ML; Start 01/24/19 at 09:00 ODELL PACHECO Jan 24, 2019 14:01
[2019-01-24] MEDS: METOPROLOL 5 MG INJ IV PRN (20:29)
[2019-01-24] MEDS ORDERED: DIGOXIN 500 MCG INJ IV ONE (22:00)
[2019-01-24] MEDS: ATENOLOL 25 MG TAB PO SCH (23:36)
[2019-01-25] VITALS (12 sets, daily range): BP systolic 95–141; BP diastolic 68–77; PULSE 73–169; RESP 17–22
[2019-01-25] MEDS: LEVALBUTEROL (NEB) 0.63 MG/3 ML AMP HHN SCH ×5 (00:29→19:31)
[2019-01-25] MEDS: METOPROLOL 5 MG INJ IV PRN ×2 (00:35→05:11)
[2019-01-25] MEDS: metroNIDAZOLE 500 MG/NS (PMX) 100 ML IVPB SCH ×3 (05:15→20:08)
[2019-01-25] MEDS: PIPER-TAZO 3.375 GM IV (PMX) 100 ML IVPB SCH ×3 (06:13→20:07)
[2019-01-25] MEDS: ATENOLOL 25 MG TAB PO SCH ×2 (08:18→20:08)
[2019-01-25] MEDS: DEXTROSE 5% 1,000 ML IV SCH (08:19)
[2019-01-25] MEDS ORDERED: FUROSEMIDE 20 MG INJ IV ONE (08:30)
--- NOTE | 2019-01-25 09:20 | PN ---
DATE: 01/25/2019 SUBJECTIVE: The patient is noted to have shortness of breath overnight. No other events noted. No hemoptysis, hematemesis, or hematochezia. OBJECTIVE: VITAL SIGNS: Blood pressure is 141/74, respirations 24, pulse 90, temperature 97.6. The patient's I 's and O's were reviewed. HEENT: Head is normocephalic. NECK: Supple. HEART: Regular rate. LUNGS: Show diminished breath sounds at the base. ABDOMEN: Soft, nontender to palpation without rebound or guarding. EXTREMITIES: Negative for clubbing, cyanosis, no edema. DERMATOLOGIC: No rashes. MUSCULOSKELETAL: No joint effusion. NEUROLOGIC: No change in exam. MEDICATIONS: The patient's medications have been reviewed. LABORATORY DATA: From 01/25/2019 was reviewed. The patient's BUN 42, creatinine 1.71, magnesium 2.6 . ASSESSMENT AND PLAN: 1. Nonoliguric acute kidney injury with previously normal baseline creatinine. Etiology of acute ki dney injury is secondary to acute tubular necrosis due to hemodynamics, NSAID use. The patient's danya al function has improved. The patient is in recovery phase of acute tubular necrosis. Continue curr ent treatment plan, supportive care, renally dose all medications. 2. Volume overload. Continue low-dose diuretic therapy and monitor I's and O's closely. 3. Acute respiratory failure. Etiology may be secondary to pulmonary edema, questionable possible b ronchitis. Continue current diuretic regimen. Continue nebulizers, and supplemental oxygen. 4. Tachyarrhythmia. Continue current medical management. Follow up with cardiology and continue to treat underlying pain. 5. Metabolic acidosis secondary to acute kidney injury. Continue to monitor. 6. Anemia. Continue to monitor hemoglobin and hematocrit levels. 7. Systemic inflammatory response syndrome, possible sepsis. The patient is completing antibiotic c ourse. 8. History of colon cancer, status post Reagan reversal. 9. Hypertension. Continue current blood pressure regimen. 10. History of deep venous thrombosis. 11. Hypernatremia, improved. Dictated By: SUSAN ZURITA DO NR/NTS Conf#: [id number] DID#: [id number] CC: ANDREY ZHENG MD; JACOB FERNANDEZ MD;*End*
--- NOTE | 2019-01-25 10:45 | PN ---
Date/Time of Note Date/Time of Note DATE: 01/25/19 TIME: 10:43 Assessment/Plan VTE Prophylaxis Risk score (from Ns)>0 risk: 12 SCD applied (from Ns): Yes Pharmacological prophylaxis: other Lines/Catheters IV Catheter Type (from Nrsg): Peripheral IV Urinary Cath still in place: Yes Reason Cath still needed: urinary retention Assessment/Plan Assessment/Plan s/p chisholm's reversal from colostomy for colon ca with multiple comorbidities and cardiac issues will continue clears for now Result Diagram: 01/25/19 0505 01/25/19 0505 Results 24hrs Laboratory Tests Test 01/24/19 13:05 01/25/19 05:05 Troponin I < 0.012 White Blood Count 13.7 H Red Blood Count 3.94 L Hemoglobin 11.9 L Hematocrit 35.5 L Mean Corpuscular Volume 90.1 Mean Corpuscular Hemoglobin 30.2 Mean Corpuscular Hemoglobin Concent 33.5 Red Cell Distribution Width 13.2 Platelet Count 131 L Mean Platelet Volume 12.1 H Immature Granulocytes % 0.400 Neutrophils % 92.6 H Lymphocytes % 3.4 L Monocytes % 3.4 Eosinophils % 0.1 Basophils % 0.1 Nucleated Red Blood Cells % 0.0 Immature Granulocytes # 0.060 H Neutrophils # 12.7 H Lymphocytes # 0.5 L Monocytes # 0.5 Eosinophils # 0.0 Basophils # 0.0 Nucleated Red Blood Cells # 0.0 Sodium Level 142 Potassium Level 3.5 Chloride Level 114 H Carbon Dioxide Level 21 Anion Gap 7 Blood Urea Nitrogen 42 #H Creatinine 1.71 H Est Glomerular Filtrat Rate mL/min 41 L Glucose Level 151 Calcium Level 8.5 Phosphorus Level 2.5 Magnesium Level 2.6 H Subjective 24 Hr Interval Summary Free Text/Dictation patient had increased HR overnight which was managed with medication acute tubular necrosis improving and cr trending to baseline patient feels distended, no nausea no vomiting no flatus Exam/Review of Systems Exam Vitals Vital Signs Date Temp Pulse Resp B/P (MAP) Pulse Ox O2 O2 Flow FiO2 Time Delivery Rate 01/25/19 114 08:03 01/25/19 Nasal 4.0 08:00 Cannula 01/25/19 20 94 07:54 01/25/19 97.6 141/74 07:10 (96) 01/25/19 40 00:31 Intake and Output 01/24/19 01/24/19 01/25/19 1515:00 23:00 07:00 IntakeIntake Total 250 ml 1210 ml OutputOutput Total 1200 ml BalanceBalance 250 ml 10 ml Exam distended, no peritoneal signs c/d/i Results Results 24hrs Laboratory Tests Test 01/24/19 13:05 01/25/19 05:05 Troponin I < 0.012 White Blood Count 13.7 H Red Blood Count 3.94 L Hemoglobin 11.9 L Hematocrit 35.5 L Mean Corpuscular Volume 90.1 Mean Corpuscular Hemoglobin 30.2 Mean Corpuscular Hemoglobin Concent 33.5 Red Cell Distribution Width 13.2 Platelet Count 131 L Mean Platelet Volume 12.1 H Immature Granulocytes % 0.400 Neutrophils % 92.6 H Lymphocytes % 3.4 L Monocytes % 3.4 Eosinophils % 0.1 Basophils % 0.1 Nucleated Red Blood Cells % 0.0 Immature Granulocytes # 0.060 H Neutrophils # 12.7 H Lymphocytes # 0.5 L Monocytes # 0.5 Eosinophils # 0.0 Basophils # 0.0 Nucleated Red Blood Cells # 0.0 Sodium Level 142 Potassium Level 3.5 Chloride Level 114 H Carbon Dioxide Level 21 Anion Gap 7 Blood Urea Nitrogen 42 #H Creatinine 1.71 H Est Glomerular Filtrat Rate mL/min 41 L Glucose Level 151 Calcium Level 8.5 Phosphorus Level 2.5 Magnesium Level 2.6 H Medications Medication Current Medications Miscellaneous Information (* Miscellaneous Pharmacy Order) DURAMORPH: 3.5MG EPIDU... GIVEN NEURAXIAL XX ; Start 01/21/19 at 10:00 Hydromorphone HCl (Dilaudid) 0.2 mg Q2H PRN IV .PAIN 1-5 Last administered on 01/22/19at 16:08; Admin Dose 0.2 MG; Start 01/21/19 at 12:00 Hydromorphone HCl (Dilaudid) 0.4 mg Q2H PRN IV .PAIN 6-10 Last administered on 01/24/19at 23:39; Admin Dose 0.4 MG; Start 01/21/19 at 12:00 Acetaminophen/ Hydrocodone Bitart ([place] (5/325)) 1 tab Q4H PRN PO .PAIN 4-6 Last administered on 01/25/19at 08:34; Admin Dose 1 TAB; Start 01/21/19 at 12:00 Diphenhydramine HCl (Benadryl) 25 mg Q4H PRN IV .PRURITUS; Start 01/21/19 at 12:00 Nalbuphine HCl (Nubain) 10 mg Q4H PRN IV .PRURITUS; Start 01/21/19 at 12:00 Ondansetron HCl (Zofran Inj) 4 mg Q6H PRN IV .NAUSEA/VOMITING Last administered on 01/22/19at 23:48; Admin Dose 4 MG; Start 01/21/19 at 12:00 Trimethobenzamide HCl (Tigan) 200 mg Q6H PRN IM .NAUSEA/VOMITING; Start 01/21/19 at 12:00 Zolpidem Tartrate (Ambien) 5 mg HS MAY REPEAT X 1 PRN PO .INSOMNIA; Start 01/21/19 at 12:00 Naloxone HCl (Narcan) 0.2 mg Q2M PRN IV .RESP RATE; Start 01/21/19 at 12:00 Hydralazine HCl (Apresoline) 10 mg Q4H PRN IV >150/95 Last administered on 01/24/19at 05:34; Admin Dose 10 MG; Start 01/21/19 at 14:00 Metoprolol Tartrate (Lopressor) 5 mg Q4H PRN IV HR>110 HOld SBP<100 Last administered on 01/25/19at 05:11; Admin Dose 5 MG; Start 01/23/19 at 20:30 Piperacillin Sod/ Tazobactam Sod 100 ml @ 200 mls/hr Q8 IVPB Last administered on 01/25/19 06:13; Admin Dose 200 MLS/HR; Start 01/24/19 at 09:00 Metronidazole 100 ml @ 100 mls/hr Q8 IVPB Last administered on 01/25/19 05:15; Admin Dose 100 MLS/HR; Start 01/24/19 at 09:00 Atenolol (Tenormin) 25 mg BID PO Last administered on 01/25/19 08:18; Admin Dose 25 MG; Start 01/24/19 at 22:00 Levalbuterol (Xopenex Neb) 0.63 mg Q6H RESP THERAPY HHN Last administered on 01/25/19at 07:54; Admin Dose 0.63 MG; Start 01/24/19 at 23:30 Ann FERNANDEZ Jan 25, 2019 10:45
--- NOTE | 2019-01-25 12:08 | PN ---
Date/Time of Note Date/Time of Note DATE: 01/25/19 TIME: 12:03 Assessment/Plan VTE Prophylaxis Risk score (from Ns)>0 risk: 12 SCD applied (from [facility] [place] Yes SCD contraindicated: other Pharmacological prophylaxis: other Pharm contraindication: other Lines/Catheters IV C[facility]ter Type (from [facility]): Peripheral IV Urinary Cath still in place: Yes Reason Cath still needed: urinary retention Assessment/Plan Assessment/Plan -S/p open Reagan reversal and colorectal low pelvic anastomosis, segmental partial colectomy, and open incarcerated incisional and parastomal hernia repairs with mesh by Dr. Fernandez on 01/21/2019. - Continue IV fluids and antibiotics. - Continue Dilaudid and Toradol as needed for pain and Zofran as needed for nausea. - Constipation/ distention- will do KUB; staff notified Dr FERNANDEZ- VALORIE -Stage III sigmoid colon cancer, status post surgery and chemo in 2018. -Acute kidney injury on chronic kidney disease, monitor urine output BUN and creatinine. Dr. Stuart is following in nephrology consultation. -Acute diastolic CHF -Paroxysmal atrial fibrillation, currently in sinus rhythm -Obstructive sleep apnea -History of hypertension -History of left upper extremity DVT Further recommendations based on clinical course. Plan of care discussed with Dr. Fox. Result Diagram: 01/25/19 0505 01/25/19 0505 Results 24hrs Laboratory Tests Test 01/24/19 13:05 01/25/19 05:05 Troponin I < 0.012 White Blood Count 13.7 H Red Blood Count 3.94 L Hemoglobin 11.9 L Hematocrit 35.5 L Mean Corpuscular Volume 90.1 Mean Corpuscular Hemoglobin 30.2 Mean Corpuscular Hemoglobin Concent 33.5 Red Cell Distribution Width 13.2 Platelet Count 131 L Mean Platelet Volume 12.1 H Immature Granulocytes % 0.400 Neutrophils % 92.6 H Lymphocytes % 3.4 L Monocytes % 3.4 Eosinophils % 0.1 Basophils % 0.1 Nucleated Red Blood Cells % 0.0 Immature Granulocytes # 0.060 H Neutrophils # 12.7 H Lymphocytes # 0.5 L Monocytes # 0.5 Eosinophils # 0.0 Basophils # 0.0 Nucleated Red Blood Cells # 0.0 Sodium Level 142 Potassium Level 3.5 Chloride Level 114 H Carbon Dioxide Level 21 Anion Gap 7 Blood Urea Nitrogen 42 #H Creatinine 1.71 H Est Glomerular Filtrat Rate mL/min 41 L Glucose Level 151 Calcium Level 8.5 Phosphorus Level 2.5 Magnesium Level 2.6 H Subjective 24 Hr Interval Summary Free Text/Dictation c/o abdominal distension; constipation. Dr Fernandez notifed by staff. Constitutional: requiring O2 Eyes: no complaints ENT: no complaints Respiratory: no complaints Cardiovascular: no complaints Gastrointestinal: constipation, other (distention) Genitourinary: no complaints Musculoskeletal: no complaints Skin: no complaints Neurologic: no complaints Endocrine: no complaints Psychological: nl mood/affect Immunologic: no complaints Exam/Review of Systems Exam Vitals Vital Signs Date Temp Pulse Resp B/P (MAP) Pulse Ox O2 O2 Flow FiO2 Time Delivery Rate 01/25/19 98.6 96 22 110/68 96 Nasal 4.0 11:25 (82) Cannula 01/25/19 40 00:31 Intake and Output 01/24/19 01/24/19 01/25/19 1515:00 23:00 07:00 IntakeIntake Total 250 ml 1210 ml OutputOutput Total 1200 ml BalanceBalance 250 ml 10 ml Constitutional: alert, oriented, well developed, obese Psych: nl mood/affect Head: normocephalic Eyes: EOMI, nl lids, nl sclera ENMT: nl external ears & nose Neck: non-tender Respiratory: clear to auscultation Cardiovascular: nl pulses, other Gastrointestinal: non-tender, distended, other (surgical abdomen- ddi ) Musculoskeletal: nl extremities to inspection Extremities: normal pulses Neurological: nl speech Skin: nl turgor Lymph: nontender Results Results 24hrs Laboratory Tests Test 01/24/19 13:05 01/25/19 05:05 Troponin I < 0.012 White Blood Count 13.7 H Red Blood Count 3.94 L Hemoglobin 11.9 L Hematocrit 35.5 L Mean Corpuscular Volume 90.1 Mean Corpuscular Hemoglobin 30.2 Mean Corpuscular Hemoglobin Concent 33.5 Red Cell Distribution Width 13.2 Platelet Count 131 L Mean Platelet Volume 12.1 H Immature Granulocytes % 0.400 Neutrophils % 92.6 H Lymphocytes % 3.4 L Monocytes % 3.4 Eosinophils % 0.1 Basophils % 0.1 Nucleated Red Blood Cells % 0.0 Immature Granulocytes # 0.060 H Neutrophils # 12.7 H Lymphocytes # 0.5 L Monocytes # 0.5 Eosinophils # 0.0 Basophils # 0.0 Nucleated Red Blood Cells # 0.0 Sodium Level 142 Potassium Level 3.5 Chloride Level 114 H Carbon Dioxide Level 21 Anion Gap 7 Blood Urea Nitrogen 42 #H Creatinine 1.71 H Est Glomerular Filtrat Rate mL/min 41 L Glucose Level 151 Calcium Level 8.5 Phosphorus Level 2.5 Magnesium Level 2.6 H Medications Medication Current Medications Miscellaneous Information (* Miscellaneous Pharmacy Order) DURAMORPH: 3.5MG EPIDU... GIVEN NEURAXIAL XX ; Start 01/21/19 at 10:00 Hydromorphone HCl (Dilaudid) 0.2 mg Q2H PRN IV .PAIN 1-5 Last administered on 01/22/19at 16:08; Admin Dose 0.2 MG; Start 01/21/19 at 12:00 Hydromorphone HCl (Dilaudid) 0.4 mg Q2H PRN IV .PAIN 6-10 Last administered on 01/24/19at 23:39; Admin Dose 0.4 MG; Start 01/21/19 at 12:00 Acetaminophen/ Hydrocodone Bitart ([place] (5/325)) 1 tab Q4H PRN PO .PAIN 4-6 Last administered on 01/25/19at 08:34; Admin Dose 1 TAB; Start 01/21/19 at 12:00 Diphenhydramine HCl (Benadryl) 25 mg Q4H PRN IV .PRURITUS; Start 01/21/19 at 12:00 Nalbuphine HCl (Nubain) 10 mg Q4H PRN IV .PRURITUS; Start 01/21/19 at 12:00 Ondansetron HCl (Zofran Inj) 4 mg Q6H PRN IV .NAUSEA/VOMITING Last administered on 01/22/19at 23:48; Admin Dose 4 MG; Start 01/21/19 at 12:00 Trimethobenzamide HCl (Tigan) 200 mg Q6H PRN IM .NAUSEA/VOMITING; Start 01/21/19 at 12:00 Zolpidem Tartrate (Ambien) 5 mg HS MAY REPEAT X 1 PRN PO .INSOMNIA; Start 01/21/19 at 12:00 Naloxone HCl (Narcan) 0.2 mg Q2M PRN IV .RESP RATE; Start 01/21/19 at 12:00 Hydralazine HCl (Apresoline) 10 mg Q4H PRN IV >150/95 Last administered on 01/24/19 05:34; Admin Dose 10 MG; Start 01/21/19 at 14:00 Metoprolol Tartrate (Lopressor) 5 mg Q4H PRN IV HR>110 HOld SBP<100 Last administered on 01/25/19 05:11; Admin Dose 5 MG; Start 01/23/19 at 20:30 Piperacillin Sod/ Tazobactam Sod 100 ml @ 200 mls/hr Q8 IVPB Last administered on 01/25/19 06:13; Admin Dose 200 MLS/HR; Start 01/24/19 at 09:00 Metronidazole 100 ml @ 100 mls/hr Q8 IVPB Last administered on 01/25/19at 05:15; Admin Dose 100 MLS/HR; Start 01/24/19 at 09:00 Atenolol (Tenormin) 25 mg BID PO Last administered on 01/25/19 08:18; Admin Dose 25 MG; Start 01/24/19 at 22:00 Levalbuterol (Xopenex Neb) 0.63 mg Q6H RESP THERAPY HHN Last administered on 01/25/19at 07:54; Admin Dose 0.63 MG; Start 01/24/19 at 23:30 LUIS HARDWICK Jan 25, 2019 12:08
--- NOTE | 2019-01-25 14:15 | RADRPT ---
Vent Rate: 160 bpm RR Interval: 0 msec NH Interval: 0 msec QRS Duration: 96 msec QT Interval: 298 msec QTC Interval: 486 msec P-R-T E[place]: 0 - 59 - 0 degrees Atrial fibrillation vs flutter with rapid ventricular response Cannot rule out Inferior infarct , age undetermined Marked ST abnormality, possible lateral subendocardial injury Abnormal ECG Electronically Signed By: Kaushal Snell
[2019-01-25] MEDS: SOD CHLORIDE 0.45% 1,000 ML IV SCH (16:21)
--- NOTE | 2019-01-25 17:02 | CONS ---
Assessment/Plan Assessment/Plan Hospital Course (Demo Recall) IMPRESSION: 1. Tachycardia, at this time sinus tachycardia in the setting of significant pain, fevers, status post surgery. NL EF by echo 60-65. ON had onset of AF with RVR 2. Possible congestive heart failure by chest x-ray with the patient having the onset of acute renal failure at this time. 3. Hypertension, mildly elevated. 4. Postoperative status post reversal colostomy. 5. Fevers postop. 6. Renal failure, acute. 7. History of colon carcinoma status post prior colectomy with colostomy. 8. Hypernatremia, mild. 9. Hypomagnesemia. 10. Leukocytosis. Recc: -Tele -Continue PO BB -Digoxin IVP additional dose -start lovenox systemic anticoag if ok with surgery -Pain control -Continue abx's and f/u cx data -Follow volume status closely -Ongoing renal eval and follow-up Consultation Date/Type/Reason Admit Date/Time Jan 21, 2019 at 06:18 Initial Consult Date 01/23/19 Type of Consult Cardiology Reason for Consultation tachycardia Requesting Provider: ROSIE ROCHA Date/Time of Note DATE: 01/25/19 TIME: 16:59 Exam/Review of Systems Vital Signs Vitals Vital Signs Date Temp Pulse Resp B/P (MAP) Pulse Ox O2 O2 Flow FiO2 Time Delivery Rate 01/25/19 95 16:11 01/25/19 98.6 20 127/74 96 Room Air 15:18 (91) 01/25/19 5.0 13:27 01/25/19 40 00:31 Intake and Output 01/24/19 01/24/19 01/25/19 1515:00 23:00 07:00 IntakeIntake Total 250 ml 1210 ml OutputOutput Total 1200 ml BalanceBalance 250 ml 10 ml Exam Exam Review of Systems: CONSTITUTIONAL: No fevers, chills. PULMONARY: No sob CARDIOVASCULAR: No chest pain/palpitations GASTROINTESTINAL: abd pain GENITOURINARY: No hematuria/dysuria. MUSCULOSKELETAL: No myagias/arthalgias. PSYCHIATRIC: The patient denies depression. NEUROLOGIC: No weakness Constitutional: alert, oriented Psych: no complaints Head: normocephalic ENMT: mucosa pink and moist Neck: supple, jvd (9 cm water) Respiratory: clear to auscultation Cardiovascular: irregular rhythm (tachycardic) Gastrointestinal: soft Musculoskeletal: muscle tone (normal) Extremities: edema (none) Labs Result Diagram: 01/25/19 0505 01/25/19 0505 Results 24hrs Laboratory Tests Test 01/25/19 05:05 White Blood Count 13.7 H Red Blood Count 3.94 L Hemoglobin 11.9 L Hematocrit 35.5 L Mean Corpuscular Volume 90.1 Mean Corpuscular Hemoglobin 30.2 Mean Corpuscular Hemoglobin Concent 33.5 Red Cell Distribution Width 13.2 Platelet Count 131 L Mean Platelet Volume 12.1 H Immature Granulocytes % 0.400 Neutrophils % 92.6 H Lymphocytes % 3.4 L Monocytes % 3.4 Eosinophils % 0.1 Basophils % 0.1 Nucleated Red Blood Cells % 0.0 Immature Granulocytes # 0.060 H Neutrophils # 12.7 H Lymphocytes # 0.5 L Monocytes # 0.5 Eosinophils # 0.0 Basophils # 0.0 Nucleated Red Blood Cells # 0.0 Sodium Level 142 Potassium Level 3.5 Chloride Level 114 H Carbon Dioxide Level 21 Anion Gap 7 Blood Urea Nitrogen 42 #H Creatinine 1.71 H Est Glomerular Filtrat Rate mL/min 41 L Glucose Level 151 Calcium Level 8.5 Phosphorus Level 2.5 Magnesium Level 2.6 H Medications Medications Current Medications Miscellaneous Information (* Miscellaneous Pharmacy Order) DURAMORPH: 3.5MG EPIDU... GIVEN NEURAXIAL XX ; Start 01/21/19 at 10:00 Hydromorphone HCl (Dilaudid) 0.2 mg Q2H PRN IV .PAIN 1-5 Last administered on 01/22/19at 16:08; Admin Dose 0.2 MG; Start 01/21/19 at 12:00 Hydromorphone HCl (Dilaudid) 0.4 mg Q2H PRN IV .PAIN 6-10 Last administered on 01/24/19at 23:39; Admin Dose 0.4 MG; Start 01/21/19 at 12:00 Acetaminophen/ Hydrocodone Bitart ([place] (5/325)) 1 tab Q4H PRN PO .PAIN 4-6 Last administered on 01/25/19at 08:34; Admin Dose 1 TAB; Start 01/21/19 at 12:00 Diphenhydramine HCl (Benadryl) 25 mg Q4H PRN IV .PRURITUS; Start 01/21/19 at 12:00 Nalbuphine HCl (Nubain) 10 mg Q4H PRN IV .PRURITUS; Start 01/21/19 at 12:00 Ondansetron HCl (Zofran Inj) 4 mg Q6H PRN IV .NAUSEA/VOMITING Last administered on 01/22/19at 23:48; Admin Dose 4 MG; Start 01/21/19 at 12:00 Trimethobenzamide HCl (Tigan) 200 mg Q6H PRN IM .NAUSEA/VOMITING; Start 01/21/19 at 12:00 Zolpidem Tartrate (Ambien) 5 mg HS MAY REPEAT X 1 PRN PO .INSOMNIA; Start 01/21/19 at 12:00 Naloxone HCl (Narcan) 0.2 mg Q2M PRN IV .RESP RATE; Start 01/21/19 at 12:00 Hydralazine HCl (Apresoline) 10 mg Q4H PRN IV >150/95 Last administered on 01/24/19at 05:34; Admin Dose 10 MG; Start 01/21/19 at 14:00 Metoprolol Tartrate (Lopressor) 5 mg Q4H PRN IV HR>110 HOld SBP<100 Last administered on 01/25/19 05:11; Admin Dose 5 MG; Start 01/23/19 at 20:30 Piperacillin Sod/ Tazobactam Sod 100 ml @ 200 mls/hr Q8 IVPB Last administered on 01/25/19at 13:49; Admin Dose 200 MLS/HR; Start 01/24/19 at 09:00 Metronidazole 100 ml @ 100 mls/hr Q8 IVPB Last administered on 01/25/19 13 :49; Admin Dose 100 MLS/HR; Start 01/24/19 at 09:00 Atenolol (Tenormin) 25 mg BID PO Last administered on 01/25/19 08:18; Admin Dose 25 MG; Start 01/24/19 at 22:00 Levalbuterol (Xopenex Neb) 0.63 mg Q6H RESP THERAPY HHN Last administered on 01/25/19 13:27; Admin Dose 0.63 MG; Start 01/24/19 at 23:30 Sodium Chloride 1,000 ml @ 100 mls/hr Q10H IV Last administered on 01/25/19at 16:21; Admin Dose 100 MLS/HR; Start 01/25/19 at 16:30 EUGENE ANDERSON Jan 25, 2019 17:02
[2019-01-25] MEDS ORDERED: DIGOXIN 500 MCG INJ IV ONE (17:30)
[2019-01-25] MEDS: ENOXAPARIN 100 MG/ML SYG SC SCH (18:21)
[2019-01-25] MEDS ORDERED: LEVALBUTEROL (NEB) 0.63 MG/3 ML AMP HHN SCH (22:00)
[2019-01-26] VITALS (10 sets, daily range): BP systolic 119–141; BP diastolic 76–90; PULSE 81–108; RESP 16–18
[2019-01-26] MEDS: LEVALBUTEROL (NEB) 0.63 MG/3 ML AMP HHN SCH ×4 (02:02→20:43)
[2019-01-26] MEDS: SOD CHLORIDE 0.45% 1,000 ML IV SCH ×3 (02:30→21:11)
[2019-01-26] MEDS: PIPER-TAZO 3.375 GM IV (PMX) 100 ML IVPB SCH ×3 (05:50→21:11)
[2019-01-26] MEDS: metroNIDAZOLE 500 MG/NS (PMX) 100 ML IVPB SCH ×3 (06:50→21:11)
[2019-01-26] MEDS ORDERED: POTASSIUM CHLORIDE (SR) 20 MEQ TAB PO STA (08:38)
[2019-01-26] MEDS: ATENOLOL 25 MG TAB PO SCH ×2 (08:54→21:11)
--- NOTE | 2019-01-26 09:01 | PN ---
DATE: 01/26/2019 SUBJECTIVE: The patient stable. The patient's shortness of breath is improving. Urinary output has been adequate. OBJECTIVE: VITAL SIGNS: Blood pressure is 119/77, pulse 89, temperature 97.6. HEENT: Head is normocephalic. NECK: Supple. HEART: Regular rate. LUNGS: Show diminished breath sounds at the base. ABDOMEN: Soft, nontender to palpation without rebound or guarding. EXTREMITIES: Negative for clubbing, cyanosis, no edema. DERMATOLOGIC: No rashes. MUSCULOSKELETAL: No joint effusion. NEUROLOGIC: No change in exam. MEDICATIONS: The patient's medications have been reviewed. LABORATORY DATA: The laboratory data from 01/26/2019 was reviewed. ASSESSMENT AND PLAN: 1. Nonoliguric acute kidney injury with previously normal baseline creatinine. Etiology of acute ki dney injury secondary to acute tubular necrosis. Renal function has been improving. Continue curren t treatment plans, supportive care, renally dose all medication. 2. Volume overload secondary to acute kidney injury, questionable congestive heart failure. The pat ient is clinically improving. Continue low-dose diuretic therapy. Follow up chest x-ray. 3. Acute respiratory failure. Etiology may be secondary to pulmonary edema, possible bronchitis. C ontinue current medical management. Continue diuretic therapy. Continue nebulizers. 4. Tachyarrhythmia. Continue current medical management. Follow up with cardiology. 5. Metabolic acidosis secondary to acute kidney injury. Continue to monitor. 6. Hypokalemia, replete potassium chloride. 7. Anemia. Monitor hemoglobin and hematocrit levels. 8. Systemic inflammatory response syndrome, possible sepsis. Patient is completing antibiotic cours e. 9. History of colon cancer, status post Reagan reversal. 10. Hypertension. Continue current blood pressure regimen. 11. History of deep venous thrombosis. 12. Hyponatremia, improved. Dictated By: SUSAN ZURITA DO NR/NTS Conf#: [id number] DID#: [id number] CC: ANDREY ZHENG MD; JACOB FERNANDEZ MD;*EndCC*
[2019-01-26] MEDS: ENOXAPARIN 100 MG/ML SYG SC SCH (11:14)
--- NOTE | 2019-01-26 13:19 | PN ---
DATE: 01/26/2019 DATE OF VISIT: 01/26/2019 Postop day #5 status post closure of colostomy and repair of the parastomal hernia. SUBJECTIVE: The patient complains of too much abdominal distention. OBJECTIVE: GENERAL: Awake, alert, lying in bed. Grossly appears that the abdomen is very distended. VITAL SIGNS: Temperature maximum 98.9, heart rate 87, respirations 16, blood pressure 123/88, satura tion 97% room air. LABORATORY DATA: WBC 9100 with 84% segmented, shift to the left, hemoglobin is stable at 12.5, hemat ocrit 36.8. Chemistry: Sodium normal, potassium low 3.3, carbon monoxide is 20, which is low. BUN 34, creatinine 1.22. Creatinine is normal. BUN has increased. Chest x-ray today was read as follows: Increased opacity suggesting worsening of the pleural effusion and atelectasis infiltrate at the right base, stable small left pleural effusion and patchy atelecta sis infiltrate. HEART: Regular. LUNGS: Decreased breathing sound at bases. ABDOMEN: Very distended, very tympanic. Bowel sounds hypoactive. Dressing was changed, wound clean . EXTREMITIES: Legs no calf tenderness. Has had a very small amount of bowel movement today, not pass ing flatus. PLAN: Keep the patient n.p.o. Get a KUB today. Keep the Carrillo in place. Ambulate as much as possi ble. Patient is very distended and the abdomen is tympanic. This could be ileus or could be gastric dilatation. We will wait for the result of the KUB and official reading. Dictated By: LIAT LOOMIS MD PS/NTS Conf#: [id number] DID#: [id number] CC: JACOB FERNANDEZ MD; ANDREY ZHENG MD;*EndCC*
--- NOTE | 2019-01-26 17:47 | CONS ---
Assessment/Plan Assessment/Plan Assessment/Plan (Daily) PAF CHF HTN Postoperative status post reversal colostomy. ARF History of colon carcinoma status post prior colectomy with colostomy. Continue antibiotics Continue Flagyl Continue atenolol Continue Lovenox Consultation Date/Type/Reason Admit Date/Time Jan 21, 2019 at 06:18 Type of Consult Cardiology Date/Time of Note DATE: 01/26/19 TIME: 17:44 Past Medical History Home Meds Active Scripts Carvedilol* (Carvedilol*) 25 Mg Tablet, 25 MG PO BID for 30 Days, TAB Prov:ODELL PACHECO 01/15/18 Furosemide* (Furosemide*) 20 Mg Tablet, 20 MG PO DAILY for 30 Days, TAB Prov:ODELL PACHECO 01/15/18 Reported Medications Apixaban* (Eliquis*) 5 Mg Tablet, 5 MG PO BID, TAB 11/02/18 Losartan Potassium* (Losartan Potassium*) 100 Mg Tablet, 100 MG PO DAILY, TAB 11/02/18 Nifedipine* (Nifedipine ER*) 60 Mg Tablet.sa, 60 MG PO BID, TAB.SA 11/02/18 Atorvastatin Calcium* (Atorvastatin Calcium*) 20 Mg Tablet, 20 MG PO QHS, #30 TAB 01/07/18 Discontinued Reported Medications Capecitabine* (Xeloda*) 500 Mg Tablet, 500 MG PO BID, TAB 11/02/18 Medications Current Medications Miscellaneous Information (* Miscellaneous Pharmacy Order) DURAMORPH: 3.5MG EPIDU... GIVEN NEURAXIAL XX ; Start 01/21/19 at 10:00 Hydromorphone HCl (Dilaudid) 0.2 mg Q2H PRN IV .PAIN 1-5 Last administered on 01/22/19at 16:08; Admin Dose 0.2 MG; Start 01/21/19 at 12:00 Hydromorphone HCl (Dilaudid) 0.4 mg Q2H PRN IV .PAIN 6-10 Last administered on 01/24/19at 23:39; Admin Dose 0.4 MG; Start 01/21/19 at 12:00 Acetaminophen/ Hydrocodone Bitart ([place] (5/325)) 1 tab Q4H PRN PO .PAIN 4-6 Last administered on 01/25/19at 08:34; Admin Dose 1 TAB; Start 01/21/19 at 12:00 Diphenhydramine HCl (Benadryl) 25 mg Q4H PRN IV .PRURITUS; Start 01/21/19 at 12:00 Nalbuphine HCl (Nubain) 10 mg Q4H PRN IV .PRURITUS; Start 01/21/19 at 12:00 Ondansetron HCl (Zofran Inj) 4 mg Q6H PRN IV .NAUSEA/VOMITING Last administered on 01/22/19 23:48; Admin Dose 4 MG; Start 01/21/19 at 12:00 Trimethobenzamide HCl (Tigan) 200 mg Q6H PRN IM .NAUSEA/VOMITING; Start 01/21/19 at 12:00 Zolpidem Tartrate (Ambien) 5 mg HS MAY REPEAT X 1 PRN PO .INSOMNIA; Start 01/21/19 at 12:00 Naloxone HCl (Narcan) 0.2 mg Q2M PRN IV .RESP RATE; Start 01/21/19 at 12:00 Hydralazine HCl (Apresoline) 10 mg Q4H PRN IV >150/95 Last administered on 01/24/19 05:34; Admin Dose 10 MG; Start 01/21/19 at 14:00 Metoprolol Tartrate (Lopressor) 5 mg Q4H PRN IV HR>110 HOld SBP<100 Last administered on 01/25/19 05:11; Admin Dose 5 MG; Start 01/23/19 at 20:30 Piperacillin Sod/ Tazobactam Sod 100 ml @ 200 mls/hr Q8 IVPB Last administered on 01/26/19 15:27; Admin Dose 200 MLS/HR; Start 01/24/19 at 09:00 Metronidazole 100 ml @ 100 mls/hr Q8 IVPB Last administered on 01/26/19 16:00; Admin Dose 100 MLS/HR; Start 01/24/19 at 09:00 Atenolol (Tenormin) 25 mg BID PO Last administered on 01/26/19 08:54; Admin Dose 25 MG; Start 01/24/19 at 22:00 Levalbuterol (Xopenex Neb) 0.63 mg Q6H RESP THERAPY HHN Last administered on 01/26/19 14:07; Admin Dose 0.63 MG; Start 01/24/19 at 23:30 Sodium Chloride 1,000 ml @ 100 mls/hr Q10H IV Last administered on 01/26/19at 10:29; Admin Dose 100 MLS/HR; Start 01/25/19 at 16:30 Enoxaparin Sodium (Lovenox) 95 mg DAILY RESP THERAPY SC Last administered on 01/26/19at 11:14; Admin Dose 95 MG; Start 01/25/19 at 17:30 Allergies: Coded Allergies: No Known Allergy (Unverified , 01/21/19) Past Surgical History Past Surgical Hx: other Social History Smoking Status: Never smoker Exam/Review of Systems Vital Signs Vitals Vital Signs Date Temp Pulse Resp B/P (MAP) Pulse Ox O2 O2 Flow FiO2 Time Delivery Rate 01/26/19 98 16:00 01/26/19 98.7 16 132/90 94 15:18 (104) 01/26/19 3.0 14:10 01/26/19 Nasal 14:07 Cannula 01/25/19 40 00:31 Intake and Output 01/25/19 01/25/19 01/26/19 1515:00 23:00 07:00 IntakeIntake Total 900 ml 1300 ml OutputOutput Total 2300 ml BalanceBalance 900 ml -1000 ml Exam Constitutional: alert Head: normocephalic, atraumatic Respiratory: clear to auscultation Cardiovascular: regular rate and rhythm (no m/r/g) Gastrointestinal: soft, nl liver, spleen Extremities: normal pulses Labs Result Diagram: 01/26/19 0543 01/26/19 0543 Results 24hrs Laboratory Tests Test 01/26/19 05:43 White Blood Count 9.1 # Red Blood Count 4.07 L Hemoglobin 12.5 L Hematocrit 36.8 L Mean Corpuscular Volume 90.4 Mean Corpuscular Hemoglobin 30.7 Mean Corpuscular Hemoglobin Concent 34.0 Red Cell Distribution Width 13.5 Platelet Count 174 # Mean Platelet Volume 12.4 H Immature Granulocytes % 1.600 H Neutrophils % 84.3 H Lymphocytes % 5.9 L Monocytes % 7.0 Eosinophils % 0.9 Basophils % 0.3 Nucleated Red Blood Cells % 0.0 Immature Granulocytes # 0.150 H Neutrophils # 7.7 H Lymphocytes # 0.5 L Monocytes # 0.6 Eosinophils # 0.1 Basophils # 0.0 Nucleated Red Blood Cells # 0.0 Sodium Level 141 Potassium Level 3.3 L Chloride Level 112 H Carbon Dioxide Level 20 L Anion Gap 9 Blood Urea Nitrogen 34 H Creatinine 1.22 Est Glomerular Filtrat Rate mL/min > 60 Glucose Level 131 Calcium Level 8.5 Phosphorus Level 3.0 Magnesium Level 2.5 Medications Medications Current Medications Miscellaneous Information (* Miscellaneous Pharmacy Order) DURAMORPH: 3.5MG EPIDU... GIVEN NEURAXIAL XX ; Start 01/21/19 at 10:00 Hydromorphone HCl (Dilaudid) 0.2 mg Q2H PRN IV .PAIN 1-5 Last administered on 01/22/19at 16:08; Admin Dose 0.2 MG; Start 01/21/19 at 12:00 Hydromorphone HCl (Dilaudid) 0.4 mg Q2H PRN IV .PAIN 6-10 Last administered on 01/24/19at 23:39; Admin Dose 0.4 MG; Start 01/21/19 at 12:00 Acetaminophen/ Hydrocodone Bitart ([place] (5/325)) 1 tab Q4H PRN PO .PAIN 4-6 Last administered on 01/25/19at 08:34; Admin Dose 1 TAB; Start 01/21/19 at 12:00 Diphenhydramine HCl (Benadryl) 25 mg Q4H PRN IV .PRURITUS; Start 01/21/19 at 12:00 Nalbuphine HCl (Nubain) 10 mg Q4H PRN IV .PRURITUS; Start 01/21/19 at 12:00 Ondansetron HCl (Zofran Inj) 4 mg Q6H PRN IV .NAUSEA/VOMITING Last administered on 01/22/19at 23:48; Admin Dose 4 MG; Start 01/21/19 at 12:00 Trimethobenzamide HCl (Tigan) 200 mg Q6H PRN IM .NAUSEA/VOMITING; Start 01/21/19 at 12:00 Zolpidem Tartrate (Ambien) 5 mg HS MAY REPEAT X 1 PRN PO .INSOMNIA; Start 01/21/19 at 12:00 Naloxone HCl (Narcan) 0.2 mg Q2M PRN IV .RESP RATE; Start 01/21/19 at 12:00 Hydralazine HCl (Apresoline) 10 mg Q4H PRN IV >150/95 Last administered on 01/24/19 05:34; Admin Dose 10 MG; Start 01/21/19 at 14:00 Metoprolol Tartrate (Lopressor) 5 mg Q4H PRN IV HR>110 HOld SBP<100 Last administered on 01/25/19 05:11; Admin Dose 5 MG; Start 01/23/19 at 20:30 Piperacillin Sod/ Tazobactam Sod 100 ml @ 200 mls/hr Q8 IVPB Last administered on 01/26/19 15:27; Admin Dose 200 MLS/HR; Start 01/24/19 at 09:00 Metronidazole 100 ml @ 100 mls/hr Q8 IVPB Last administered on 01/26/19 16:00; Admin Dose 100 MLS/HR; Start 01/24/19 at 09:00 Atenolol (Tenormin) 25 mg BID PO Last administered on 01/26/19 08:54; Admin Dose 25 MG; Start 01/24/19 at 22:00 Levalbuterol (Xopenex Neb) 0.63 mg Q6H RESP THERAPY HHN Last administered on 01/26/19 14:07; Admin Dose 0.63 MG; Start 01/24/19 at 23:30 Sodium Chloride 1,000 ml @ 100 mls/hr Q10H IV Last administered on 01/26/19 10:29; Admin Dose 100 MLS/HR; Start 01/25/19 at 16:30 Enoxaparin Sodium (Lovenox) 95 mg DAILY RESP THERAPY SC Last administered on 01/26/19 11:14; Admin Dose 95 MG; Start 01/25/19 at 17:30 YESSICA RO M.D. Jan 26, 2019 17:47
--- NOTE | 2019-01-26 19:42 | PN ---
DATE: 01/26/2019 SUBJECTIVE: The patient is complaining of abdominal distention. No vomiting. Denies any chest pain , no reported fever or chills. The patient does say that he has a bowel movement and also had been r ecorded by nursing staff. PHYSICAL EXAMINATION: GENERAL: Revealed the patient to be awake, alert. VITAL SIGNS: Temperature 98.7, pulse 96, respirations 16, blood pressure 132/90, O2 saturation 94% o n 3 liters nasal cannula. HEENT: No eye discharge or redness. Oropharynx negative. NECK: No mass. CHEST: Fairly clear. CARDIOVASCULAR: S1, S2 normal. ABDOMEN: Soft, tympanic and distended. Dressing intact in the wound. EXTREMITIES: No edema. LABORATORY DATA: Done this morning revealed creatinine of 1.2, down from 1.7. IMPRESSION: 1. Status post open Reagan reversal and colorectal low pelvic anastomosis, status partial colectom y, also status post open incarcerated incision and parastomal hernia repair. The patient postoperati vely had episode of CHF and also now has ____. The patient was seen by Dr. Schwartz and workup phyllis worley. 2. Paroxysmal atrial fibrillation. The patient is in sinus rhythm. 3. Hypertension. The patient is on atenolol and p.r.n. hydralazine. 4. History of left upper extremity DVT. Continue Lovenox. Also, in view of paroxysmal atrial fibri llation. 5. Acute kidney injury. The patient is being seen by Dr. Stuart. Continue fluid management as per nephrology. The patient did receive a dose of potassium due to hypokalemia this morning. We will d o followup labs. Dictated By: ANDREY MAGALLON/MARIAN Conf#: [id number] DID#: [id number]
[2019-01-27] VITALS (12 sets, daily range): BP systolic 134–147; BP diastolic 84–91; PULSE 71–98; RESP 18–19
[2019-01-27] MEDS: LEVALBUTEROL (NEB) 0.63 MG/3 ML AMP HHN SCH ×4 (03:30→20:14)
[2019-01-27] MEDS: PIPER-TAZO 3.375 GM IV (PMX) 100 ML IVPB SCH ×3 (05:55→21:22)
[2019-01-27] MEDS: metroNIDAZOLE 500 MG/NS (PMX) 100 ML IVPB SCH ×3 (05:55→21:35)
[2019-01-27] MEDS: ATENOLOL 25 MG TAB PO SCH ×2 (08:23→21:22)
[2019-01-27] MEDS ORDERED: DEXTROSE 5%-0.45% NACL 1,000 ML IV SCH (08:30)
--- NOTE | 2019-01-27 08:32 | PN ---
DATE: 01/27/2019 SUBJECTIVE: The patient is stable, no acute events overnight. No hemoptysis, hematemesis or hematoc hezia. OBJECTIVE: VITAL SIGNS: Blood pressure is 135/90, respirations 18, pulse 86, temperature 98.3. HEENT: Head is normocephalic. NECK: Supple. HEART: Regular rate. LUNGS: Show diminished breath sounds at the base. ABDOMEN: Soft, nontender to palpation. EXTREMITIES: Negative for clubbing, cyanosis, no edema. DERMATOLOGIC: No rashes. MUSCULOSKELETAL: No joint effusion. NEUROLOGIC: No change in exam. MEDICATIONS: The patient's medications have been reviewed. LABORATORY DATA: From 01/27/2019 was reviewed. ASSESSMENT AND PLAN: 1. Nonoliguric acute kidney injury with previously normal baseline creatinine. Etiology of acute ki dney injury is secondary to acute tubular necrosis. Renal function is improving. Continue current t reatment plans, supportive care, renally dose all medicines. 2. Volume overload secondary to acute kidney injury, congestive heart failure, improving. The patie nt is status post diuretic therapy. 3. Acute respiratory failure secondary to pulmonary edema, possible bronchitis. Clinically improvin g. Continue medical management status post diuretics. Continue nebulizers. 4. Tachyarrhythmia, improved. 5. Metabolic acidosis secondary to acute kidney injury, improved. 6. Hypokalemia. Continue to monitor and replete as needed. 7. Anemia. Monitor hemoglobin and hematocrit levels. 8. Systemic inflammatory response syndrome. The patient is completing antibiotic course. 9. History of colon cancer with Reagan reversal. 10. Hypertension. Continue current blood pressure regimen. 11. History of deep vein thrombosis. 12. Hypernatremia, resolved. Dictated By: SUSAN ZURITA DO NR/NTS Conf#: [id number] DID#: [id number] CC: ANDREY ZHENG MD; JACOB FERNANDEZ MD;*End*
[2019-01-27] MEDS: ENOXAPARIN 100 MG/ML SYG SC SCH (12:29)
[2019-01-27] MEDS ORDERED: D5W-0.45 NACL + KCL 20 MEQ 1,000 ML IV SCH (14:30)
--- NOTE | 2019-01-27 15:08 | PN ---
DATE: 01/27/2019 Postop day #6 status post takedown of the Reagan end colostomy and closure of colostomy and also re pair of the parastomal hernia. SUBJECTIVE: No specific complaint. The patient states that has had 3 bowel movements today, small amount liquidish and is passing gas. OBJECTIVE: GENERAL: Awake, alert, oriented, lying down in the bed. VITAL SIGNS: Temperature maximum 98.5, heart rate fluctuating between 74 and 89, respirations 18, bl ood pressure 147/91, saturation 97% on 3 L nasal cannula. Urine output in the past 24 hours has had 2300 mL urine. The patient has Carrillo catheter . HEART: Regular. LUNGS: Decreased breathing sound at bases. ABDOMEN: Severely distended, tympanic. Bowel sounds 2+/4+ or 3+/4+, but sometimes one can hear dist ant sounds, which is characteristic of ileus. No tenderness. LOWER EXTREMITY: No pitting edema. LABORATORY DATA: Today, WBC is 9900 with 86% segmented, which is shift to the left, hemoglobin 12.1, hematocrit 35.9. Chemistry: Sodium 141, potassium 3.6, BUN is 32, creatinine has dropped to normal , which is 1.02. IMAGING: Yesterday, the belly was also distended, so we got a KUB and the report of the KUB is as fo llows: 1. Surgical clips are again seen to extend vertically across the midline, lower abdomen and pelvis: 2. Moderately organized air distended segment of small bowel are again seen in the right abdomen wit h increasing air seen within the colon, compatible with a partial distal small-bowel obstruction with the moderate ileus, 3 subsegmental atelectasis involving both lower lung zones created on the right than the left with the small bilateral pleural fluid accommodations, for extensive degenerative enthe sopathy involving the lumbar spine. PLAN: 1. Considering the abdominal findings clinically and x-ray [place], I am going to continue keeping the patient n.p.o. except ice chips. 2. I am going to order a small bowel series tomorrow with Gastrografin to make sure the patient does not have obstruction. 3. We will add potassium today maintenance IV and increase it to 75 mL, it is 50 mL at this time. 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 I am following the patient from surgical point of view for Dr. Art. Dictated By: LIAT ANDREW/MARIAN Conf#: [id number] DID#: [id number]
--- NOTE | 2019-01-27 15:11 | CONS ---
Assessment/Plan Assessment/Plan Assessment/Plan (Daily) PAF CHF HTN Status post reversal colostomy. ARF History of colon carcinoma status post prior colectomy with colostomy. Continue antibiotics Continue Flagyl Continue atenolol Continue Lovenox Consultation Date/Type/Reason Admit Date/Time Jan 21, 2019 at 06:18 Initial Consult Date Type of Consult Cardiology Requesting Provider: ROSIE ROCHA Date/Time of Note DATE: 01/27/19 TIME: 15:10 Exam/Review of Systems Vital Signs Vitals Vital Signs Date Temp Pulse Resp B/P (MAP) Pulse Ox O2 O2 Flow FiO2 Time Delivery Rate 01/27/19 3.0 13:55 01/27/19 74 16 97 Nasal 13:54 Cannula 01/27/19 98.5 147/91 11:11 (109) 01/27/19 30 04:33 Intake and Output 01/26/19 01/26/19 01/27/19 1414:59 22:59 06:59 IntakeIntake Total 500 ml 400 ml OutputOutput Total 400 ml BalanceBalance 100 ml 400 ml Exam Exam Constitutional: alert Head: normocephalic, atraumatic Respiratory: clear to auscultation Cardiovascular: regular rate and rhythm (no m/r/g) Gastrointestinal: soft, nl liver, spleen Extremities: normal pulses Labs Result Diagram: 01/27/198 01/27/19 0458 Results 24hrs Laboratory Tests Test 01/27/19 04:58 White Blood Count 9.9 Red Blood Count 3.97 L Hemoglobin 12.1 L Hematocrit 35.9 L Mean Corpuscular Volume 90.4 Mean Corpuscular Hemoglobin 30.5 Mean Corpuscular Hemoglobin Concent 33.7 Red Cell Distribution Width 13.5 Platelet Count 186 Mean Platelet Volume 11.9 H Immature Granulocytes % 1.400 H Neutrophils % 86.2 H Lymphocytes % 5.6 L Monocytes % 6.2 Eosinophils % 0.3 Basophils % 0.3 Nucleated Red Blood Cells % 0.0 Immature Granulocytes # 0.140 H Neutrophils # 8.5 H Lymphocytes # 0.6 L Monocytes # 0.6 Eosinophils # 0.0 Basophils # 0.0 Nucleated Red Blood Cells # 0.0 Sodium Level 141 Potassium Level 3.6 Chloride Level 111 H Carbon Dioxide Level 19 L Anion Gap 11 Blood Urea Nitrogen 32 H Creatinine 1.02 Est Glomerular Filtrat Rate mL/min > 60 Glucose Level 126 Calcium Level 8.1 L Phosphorus Level 3.7 Magnesium Level 2.5 Medications Medications Current Medications Miscellaneous Information (* Miscellaneous Pharmacy Order) DURAMORPH: 3.5MG EPIDU... GIVEN NEURAXIAL XX ; Start 01/21/19 at 10:00 Hydromorphone HCl (Dilaudid) 0.2 mg Q2H PRN IV .PAIN 1-5 Last administered on 01/22/19at 16:08; Admin Dose 0.2 MG; Start 01/21/19 at 12:00 Hydromorphone HCl (Dilaudid) 0.4 mg Q2H PRN IV .PAIN 6-10 Last administered on 01/24/19at 23:39; Admin Dose 0.4 MG; Start 01/21/19 at 12:00 Acetaminophen/ Hydrocodone Bitart ([place] (5/325)) 1 tab Q4H PRN PO .PAIN 4-6 Last administered on 01/25/19at 08:34; Admin Dose 1 TAB; Start 01/21/19 at 12:00 Diphenhydramine HCl (Benadryl) 25 mg Q4H PRN IV .PRURITUS; Start 01/21/19 at 12:00 Nalbuphine HCl (Nubain) 10 mg Q4H PRN IV .PRURITUS; Start 01/21/19 at 12:00 Ondansetron HCl (Zofran Inj) 4 mg Q6H PRN IV .NAUSEA/VOMITING Last administered on 01/22/19at 23:48; Admin Dose 4 MG; Start 01/21/19 at 12:00 Trimethobenzamide HCl (Tigan) 200 mg Q6H PRN IM .NAUSEA/VOMITING; Start 01/21/19 at 12:00 Zolpidem Tartrate (Ambien) 5 mg HS MAY REPEAT X 1 PRN PO .INSOMNIA; Start 01/21/19 at 12:00 Naloxone HCl (Narcan) 0.2 mg Q2M PRN IV .RESP RATE; Start 01/21/19 at 12:00 Hydralazine HCl (Apresoline) 10 mg Q4H PRN IV >150/95 Last administered on 01/24/19at 05:34; Admin Dose 10 MG; Start 01/21/19 at 14:00 Metoprolol Tartrate (Lopressor) 5 mg Q4H PRN IV HR>110 HOld SBP<100 Last administered on 01/25/19 05:11; Admin Dose 5 MG; Start 01/23/19 at 20:30 Piperacillin Sod/ Tazobactam Sod 100 ml @ 200 mls/hr Q8 IVPB Last administered on 01/27/19 14:20; Admin Dose 200 MLS/HR; Start 01/24/19 at 09:00 Metronidazole 100 ml @ 100 mls/hr Q8 IVPB Last administered on 01/27/19at 15:03; Admin Dose 100 MLS/HR; Start 01/24/19 at 09:00 Atenolol (Tenormin) 25 mg BID PO Last administered on 01/27/19 08:23; Admin Dose 25 MG; Start 01/24/19 at 22:00 Levalbuterol (Xopenex Neb) 0.63 mg Q6H RESP THERAPY HHN Last administered on 01/27/19at 13:53; Admin Dose 0.63 MG; Start 01/24/19 at 23:30 Enoxaparin Sodium (Lovenox) 95 mg DAILY RESP THERAPY SC Last administered on 01/27/19 12:29; Admin Dose 95 MG; Start 01/25/19 at 17:30 Potassium Chloride/Dextrose/ Sod Cl 1,000 ml @ 75 mls/hr [id number] IV ; Start 01/27/19 at 14:30 YESSICA RO M.D. Jan 27, 2019 15:11
[2019-01-27] MEDS ORDERED: POTASSIUM CHLORIDE (SR) 20 MEQ TAB PO STA (20:28)
[2019-01-27] MEDS ORDERED: FUROSEMIDE 40 MG INJ IV ONE (20:30)
[2019-01-28] VITALS (10 sets, daily range): BP systolic 123–153; BP diastolic 73–87; PULSE 73–101; RESP 18–22
[2019-01-28] MEDS: LEVALBUTEROL (NEB) 0.63 MG/3 ML AMP HHN SCH ×4 (02:04→21:01)
[2019-01-28] MEDS: HYDROmorphONE 0.5 MG/0.5 ML SYG IV PRN (05:56)
[2019-01-28] MEDS: PIPER-TAZO 3.375 GM IV (PMX) 100 ML IVPB SCH ×3 (05:56→20:56)
[2019-01-28] MEDS: metroNIDAZOLE 500 MG/NS (PMX) 100 ML IVPB SCH ×3 (05:56→20:56)
[2019-01-28] MEDS: ATENOLOL 25 MG TAB PO SCH ×2 (08:16→20:55)
--- NOTE | 2019-01-28 09:15 | PN ---
DATE: 01/28/2019 SUBJECTIVE: The patient was given a course of Lasix overnight with good urinary output. No other ev ents noted. OBJECTIVE: VITAL SIGNS: Blood pressure is 153/81, respirations 22, pulse 73, temperature 98.1. HEENT: Head is normocephalic. NECK: Supple. HEART: Regular rate. LUNGS: Show diminished breath sounds at the base. ABDOMEN: Soft, nontender to palpation without rebound or guarding. EXTREMITIES: Negative for clubbing, cyanosis. No edema. DERMATOLOGIC: No rashes. MUSCULOSKELETAL: No joint effusion. NEUROLOGIC: No change in exam. MEDICATIONS: Reviewed. LABORATORY DATA: From 01/28/2019 was reviewed. ASSESSMENT AND PLAN: 1. Nonoliguric acute kidney injury with previously normal baseline creatinine. Etiology of acute ki dney injury is secondary to acute tubular necrosis. Renal function is improved. Continue current tr eatment plans, supportive care, renally dose all medicines. 2. Volume overload secondary to acute kidney injury and IV fluids. The patient's IV fluids have bee n discontinued. Continue intermittent diuretic therapy. 3. Acute respiratory failure secondary to pulmonary edema, possible bronchitis. Continue diuretic t herapy. Agree with discontinuing IV fluids. 4. Tachyarrhythmia. Continue to monitor. 5. Metabolic acidosis secondary to acute kidney injury, improved. 6. Hypokalemia. Continue to monitor and replete. 7. Anemia. Monitor hemoglobin and hematocrit levels. 8. Systemic inflammatory response syndrome. The patient is completing antibiotic course. 9. History of colon cancer. 10. Hypertension. Continue current blood pressure regimen. 11. History of deep venous thrombosis. 12. Hypernatremia, resolved. Dictated By: SUSAN HERNANDEZ/NTS Conf#: [id number] DID#: [id number] CC: JACOB FERNANDEZ MD; ANDREY ZHENG MD;*EndCC*
--- NOTE | 2019-01-28 09:24 | PN ---
DATE: 01/27/2019 SUBJECTIVE: The patient had multiple bowel movements; however, still has abdominal distention. He d enies any chest pain, no reported fever or chills. PHYSICAL EXAMINATION: GENERAL: The patient is awake, alert. VITAL SIGNS: Temperature 98.5, pulse 86, respirations 18, blood pressure 147/91, O2 saturation 95% o n 3 liters. HEENT: No eye discharge or redness. Conjunctivae and lids are normal. Oropharynx is clear. NECK: No JVD. CHEST: Diminished air entry at bases. CARDIOVASCULAR: S1, S2 normal. ABDOMEN: Soft, distended, tympanic. EXTREMITIES: No edema. NEUROLOGIC: The patient is awake, alert. LABORATORY DATA: WBC 9.9, hemoglobin 12.1, platelet 186. Sodium 141, potassium 3.6, BUN 32, creatin ine 1, glucose 126. IMPRESSION AND PLAN: 1. Partial small-bowel obstruction. The patient will be continued to be n.p.o. and on IV fluid. 2. Atelectasis. Continue Xopenex. 3. Hypertension. The patient is being followed by Dr. Alejandro' group. 4. Paroxysmal atrial fibrillation and diastolic CHF. 5. Acute kidney injury. The patient is being followed by Dr. Stuart. 6. Left upper extremity deep venous thrombosis and paroxysmal atrial fibrillation. Continue Lovenox . 7. Status post colostomy reversal and colorectal low pelvic anastomosis. The patient has underlying history of colon cancer. Dictated By: ANDREY ZHENG MD AB/MARIAN Conf#: [id number] DID#: [id number] CC: ANDREY ZHENG MD; JACOB FERNANDEZ MD;*EndCC*
--- NOTE | 2019-01-28 09:59 | PN ---
Date/Time of Note Date/Time of Note DATE: 01/28/19 TIME: 09:56 Assessment/Plan VTE Prophylaxis Risk score (from Ns)>0 risk: 2 SCD applied (from Nsg): Yes Pharmacological prophylaxis: other Lines/Catheters IV Catheter Type (from Nrsg): Peripheral IV Urinary Cath still in place: No Assessment/Plan Assessment/Plan s/p reversal of chisholm's with abdominal distention will check ct of abd/pelvis to evaluate for partial bowel obstruction vs abscess will need to restart regular diet vs assess nutritional needs will continue to monitor closely Result Diagram: 01/28/19 0442 01/28/19 0459 Results 24hrs Laboratory Tests Test 01/28/19 04:42 01/28/19 04:59 White Blood Count 15.6 #H Red Blood Count 3.99 L Hemoglobin 12.3 L Hematocrit 35.6 L Mean Corpuscular Volume 89.2 Mean Corpuscular Hemoglobin 30.8 Mean Corpuscular Hemoglobin Concent 34.6 Red Cell Distribution Width 13.8 Platelet Count 257 # Mean Platelet Volume 11.9 H Immature Granulocytes % 1.700 H Neutrophils % 88.7 H Lymphocytes % 4.4 L Monocytes % 4.7 Eosinophils % 0.3 Basophils % 0.2 Nucleated Red Blood Cells % 0.0 Immature Granulocytes # 0.270 H Neutrophils # 13.9 H Lymphocytes # 0.7 L Monocytes # 0.7 Eosinophils # 0.1 Basophils # 0.0 Nucleated Red Blood Cells # 0.0 Sodium Level 139 Potassium Level 3.3 L Chloride Level 109 Carbon Dioxide Level 21 Anion Gap 9 Blood Urea Nitrogen 25 H Creatinine 0.96 Est Glomerular Filtrat Rate mL/min > 60 Glucose Level 147 Calcium Level 8.2 L Phosphorus Level 3.3 Magnesium Level 2.2 Subjective 24 Hr Interval Summary Free Text/Dictation patient was slowly improving but had some cardiac issues and his wbc went from normal to elevated today no fevers, still having bowel movements, no nausea Exam/Review of Systems Exam Vitals Vital Signs Date Temp Pulse Resp B/P (MAP) Pulse Ox O2 O2 Flow FiO2 Time Delivery Rate 01/28/19 82 20 95 Nasal 3.0 09:00 Cannula 01/28/19 98.1 153/81 07:43 (105) 01/27/19 30 04:33 Intake and Output 01/27/19 01/27/19 01/28/19 1515:00 23:00 07:00 IntakeIntake Total 100 ml 900 ml OutputOutput Total 900 ml BalanceBalance -800 ml 900 ml Exam colostomy wound healing midline incision with drainage left flank with skin tears Results Results 24hrs Laboratory Tests Test 01/28/19 04:42 01/28/19 04:59 White Blood Count 15.6 #H Red Blood Count 3.99 L Hemoglobin 12.3 L Hematocrit 35.6 L Mean Corpuscular Volume 89.2 Mean Corpuscular Hemoglobin 30.8 Mean Corpuscular Hemoglobin Concent 34.6 Red Cell Distribution Width 13.8 Platelet Count 257 # Mean Platelet Volume 11.9 H Immature Granulocytes % 1.700 H Neutrophils % 88.7 H Lymphocytes % 4.4 L Monocytes % 4.7 Eosinophils % 0.3 Basophils % 0.2 Nucleated Red Blood Cells % 0.0 Immature Granulocytes # 0.270 H Neutrophils # 13.9 H Lymphocytes # 0.7 L Monocytes # 0.7 Eosinophils # 0.1 Basophils # 0.0 Nucleated Red Blood Cells # 0.0 Sodium Level 139 Potassium Level 3.3 L Chloride Level 109 Carbon Dioxide Level 21 Anion Gap 9 Blood Urea Nitrogen 25 H Creatinine 0.96 Est Glomerular Filtrat Rate mL/min > 60 Glucose Level 147 Calcium Level 8.2 L Phosphorus Level 3.3 Magnesium Level 2.2 Medications Medication Current Medications Miscellaneous Information (* Miscellaneous Pharmacy Order) DURAMORPH: 3.5MG EPIDU... GIVEN NEURAXIAL XX ; Start 01/21/19 at 10:00 Hydromorphone HCl (Dilaudid) 0.2 mg Q2H PRN IV .PAIN 1-5 Last administered on 01/22/19at 16:08; Admin Dose 0.2 MG; Start 01/21/19 at 12:00 Hydromorphone HCl (Dilaudid) 0.4 mg Q2H PRN IV .PAIN 6-10 Last administered on 01/28/19at 05:56; Admin Dose 0.4 MG; Start 01/21/19 at 12:00 Acetaminophen/ Hydrocodone Bitart ([place] (5/325)) 1 tab Q4H PRN PO .PAIN 4-6 Last administered on 01/25/19at 08:34; Admin Dose 1 TAB; Start 01/21/19 at 12:00 Diphenhydramine HCl (Benadryl) 25 mg Q4H PRN IV .PRURITUS; Start 01/21/19 at 12:00 Nalbuphine HCl (Nubain) 10 mg Q4H PRN IV .PRURITUS; Start 01/21/19 at 12:00 Ondansetron HCl (Zofran Inj) 4 mg Q6H PRN IV .NAUSEA/VOMITING Last administered on 01/22/19at 23:48; Admin Dose 4 MG; Start 01/21/19 at 12:00 Trimethobenzamide HCl (Tigan) 200 mg Q6H PRN IM .NAUSEA/VOMITING; Start 01/21/19 at 12:00 Zolpidem Tartrate (Ambien) 5 mg HS MAY REPEAT X 1 PRN PO .INSOMNIA; Start 01/21/19 at 12:00 Naloxone HCl (Narcan) 0.2 mg Q2M PRN IV .RESP RATE; Start 01/21/19 at 12:00 Hydralazine HCl (Apresoline) 10 mg Q4H PRN IV >150/95 Last administered on 01/14 11/03at 05:34; Admin Dose 10 MG; Start 01/21/19 at 14:00 Metoprolol Tartrate (Lopressor) 5 mg Q4H PRN IV HR>110 HOld SBP<100 Last administered on 01/25/19at 05:11; Admin Dose 5 MG; Start 01/23/19 at 20:30 Piperacillin Sod/ Tazobactam Sod 100 ml @ 200 mls/hr Q8 IVPB Last administered on 01/28/19at 05:56; Admin Dose 200 MLS/HR; Start 01/24/19 at 09:00 Metronidazole 100 ml @ 100 mls/hr Q8 IVPB Last administered on 01/28/19at 05:56; Admin Dose 100 MLS/HR; Start 01/24/19 at 09:00 Atenolol (Tenormin) 25 mg BID PO Last administered on 01/28/19at 08:16; Admin Dose 25 MG; Start 01/24/19 at 22:00 Levalbuterol (Xopenex Neb) 0.63 mg Q6H RESP THERAPY HHN Last administered on 01/28/19 09:00; Admin Dose 0.63 MG; Start 01/24/19 at 23:30 Enoxaparin Sodium (Lovenox) 95 mg DAILY RESP THERAPY SC Last administered on 01/27/19at 12:29; Admin Dose 95 MG; Start 01/25/19 at 17:30 Iohexol ((Gastrografin therapeutic equivalent)) 900 ml [address]IOR TO CT ONCE PO ; Start 01/28/19 at 10:00; Stop 01/28/19 at 10:01 Sodium Chloride 1,000 ml @ 75 mls/hr [id number] IV ; Start 01/28/19 at 10:00 Ann FERNANDEZ Jan 28, 2019 09:59
[2019-01-28] MEDS ORDERED: IOHEXOL 14.3 MG(I)/ML (ADULT) BTL PO ONE (10:00)
[2019-01-28] MEDS: SOD CHLORIDE 0.45% 1,000 ML IV SCH ×2 (10:02→23:20)
[2019-01-28] MEDS: ENOXAPARIN 100 MG/ML SYG SC SCH (11:32)
--- NOTE | 2019-01-28 12:39 | PN ---
Date/Time of Note Date/Time of Note DATE: 01/28/19 TIME: 12:33 Assessment/Plan VTE Prophylaxis Risk score (from Nsg)>0 risk: 2 SCD applied (from Nsg): Yes Pharmacological prophylaxis: LMWH Lines/Catheters IV Catheter Type (from Nrsg): Peripheral IV Central line still needed: Yes Urinary Cath still in place: No Assessment/Plan Hospital Course Patient was distended abdomen and drainage from incision site, pending CT of the abdomen and pelvis. Patient is sitting in chair, denies chest pain, denies shortness of breath. Assessment/Plan -Partial small bowel obstruction versus ileus -S/p open Reagan reversal and colorectal low pelvic anastomosis, segmental partial colectomy, and open incarcerated incisional and parastomal hernia repairs with mesh by Dr. Art on 01/21/2019. Continue IV fluids and antibiotics. Patient is currently on Zosyn and Flagyl IV. Continue Fombell and Dilaudid as needed for pain and Zofran as needed for nausea. -Stage III sigmoid colon cancer, status post surgery and chemo in 2018. -Acute kidney injury on chronic kidney disease, monitor urine output BUN and creatinine. Dr. tSuart is following in nephrology consultation. -Acute diastolic CHF -Paroxysmal atrial fibrillation, currently in sinus rhythm -Obstructive sleep apnea -History of hypertension -History of left upper extremity DVT Further recommendations based on clinical course. Plan of care discussed with Dr. Fox. Result Diagram: 01/28/19 0442 01/28/19 0459 Results 24hrs Laboratory Tests Test 01/28/19 04:42 01/28/19 04:59 White Blood Count 15.6 #H Red Blood Count 3.99 L Hemoglobin 12.3 L Hematocrit 35.6 L Mean Corpuscular Volume 89.2 Mean Corpuscular Hemoglobin 30.8 Mean Corpuscular Hemoglobin Concent 34.6 Red Cell Distribution Width 13.8 Platelet Count 257 # Mean Platelet Volume 11.9 H Immature Granulocytes % 1.700 H Neutrophils % 88.7 H Lymphocytes % 4.4 L Monocytes % 4.7 Eosinophils % 0.3 Basophils % 0.2 Nucleated Red Blood Cells % 0.0 Immature Granulocytes # 0.270 H Neutrophils # 13.9 H Lymphocytes # 0.7 L Monocytes # 0.7 Eosinophils # 0.1 Basophils # 0.0 Nucleated Red Blood Cells # 0.0 Sodium Level 139 Potassium Level 3.3 L Chloride Level 109 Carbon Dioxide Level 21 Anion Gap 9 Blood Urea Nitrogen 25 H Creatinine 0.96 Est Glomerular Filtrat Rate mL/min > 60 Glucose Level 147 Calcium Level 8.2 L Phosphorus Level 3.3 Magnesium Level 2.2 Exam/Review of Systems Exam Vitals Vital Signs Date Temp Pulse Resp B/P (MAP) Pulse Ox O2 O2 Flow FiO2 Time Delivery Rate 01/28/19 84 12:01 01/28/19 97.8 22 123/81 96 Room Air 11:35 (95) Nasal Cannula 01/28/19 3.0 09:00 01/27/19 30 04:33 Intake and Output 01/27/19 01/27/19 01/28/19 1515:00 23:00 07:00 IntakeIntake Total 100 ml 900 ml OutputOutput Total 900 ml BalanceBalance -800 ml 900 ml Exam Constitutional: alert, oriented Respiratory: clear to auscultation Cardiovascular: regular rate and rhythm Gastrointestinal: soft, other (s/p surgery) Genitourinary - Male: other ([place]) Musculoskeletal: nl extremities to inspection Extremities: normal pulses Neurological: nl mental status Results Results 24hrs Laboratory Tests Test 01/28/19 04:42 01/28/19 04:59 White Blood Count 15.6 #H Red Blood Count 3.99 L Hemoglobin 12.3 L Hematocrit 35.6 L Mean Corpuscular Volume 89.2 Mean Corpuscular Hemoglobin 30.8 Mean Corpuscular Hemoglobin Concent 34.6 Red Cell Distribution Width 13.8 Platelet Count 257 # Mean Platelet Volume 11.9 H Immature Granulocytes % 1.700 H Neutrophils % 88.7 H Lymphocytes % 4.4 L Monocytes % 4.7 Eosinophils % 0.3 Basophils % 0.2 Nucleated Red Blood Cells % 0.0 Immature Granulocytes # 0.270 H Neutrophils # 13.9 H Lymphocytes # 0.7 L Monocytes # 0.7 Eosinophils # 0.1 Basophils # 0.0 Nucleated Red Blood Cells # 0.0 Sodium Level 139 Potassium Level 3.3 L Chloride Level 109 Carbon Dioxide Level 21 Anion Gap 9 Blood Urea Nitrogen 25 H Creatinine 0.96 Est Glomerular Filtrat Rate mL/min > 60 Glucose Level 147 Calcium Level 8.2 L Phosphorus Level 3.3 Magnesium Level 2.2 Medications Medication Current Medications Miscellaneous Information (* Miscellaneous Pharmacy Order) DURAMORPH: 3.5MG EPIDU... GIVEN NEURAXIAL XX ; Start 01/21/19 at 10:00 Hydromorphone HCl (Dilaudid) 0.2 mg Q2H PRN IV .PAIN 1-5 Last administered on 01/22/19at 16:08; Admin Dose 0.2 MG; Start 01/21/19 at 12:00 Hydromorphone HCl (Dilaudid) 0.4 mg Q2H PRN IV .PAIN 6-10 Last administered on 01/28/19at 05:56; Admin Dose 0.4 MG; Start 01/21/19 at 12:00 Acetaminophen/ Hydrocodone Bitart ([place] (5/325)) 1 tab Q4H PRN PO .PAIN 4-6 Last administered on 01/25/19 08:34; Admin Dose 1 TAB; Start 01/21/19 at 12:00 Diphenhydramine HCl (Benadryl) 25 mg Q4H PRN IV .PRURITUS; Start 01/21/19 at 12:00 Nalbuphine HCl (Nubain) 10 mg Q4H PRN IV .PRURITUS; Start 01/21/19 at 12:00 Ondansetron HCl (Zofran Inj) 4 mg Q6H PRN IV .NAUSEA/VOMITING Last administered on 01/22/19at 23:48; Admin Dose 4 MG; Start 01/21/19 at 12:00 Trimethobenzamide HCl (Tigan) 200 mg Q6H PRN IM .NAUSEA/VOMITING; Start 01/21/19 at 12:00 Zolpidem Tartrate (Ambien) 5 mg HS MAY REPEAT X 1 PRN PO .INSOMNIA; Start 01/21/19 at 12:00 Naloxone HCl (Narcan) 0.2 mg Q2M PRN IV .RESP RATE; Start 01/21/19 at 12:00 Hydralazine HCl (Apresoline) 10 mg Q4H PRN IV >150/95 Last administered on 01/24/19 05:34; Admin Dose 10 MG; Start 01/21/19 at 14:00 Metoprolol Tartrate (Lopressor) 5 mg Q4H PRN IV HR>110 HOld SBP<100 Last administered on 01/25/19at 05:11; Admin Dose 5 MG; Start 01/23/19 at 20:30 Piperacillin Sod/ Tazobactam Sod 100 ml @ 200 mls/hr Q8 IVPB Last administered on 01/28/19 05:56; Admin Dose 200 MLS/HR; Start 01/24/19 at 09:00 Metronidazole 100 ml @ 100 mls/hr Q8 IVPB Last administered on 01/28/19 05: 56; Admin Dose 100 MLS/HR; Start 01/24/19 at 09:00 Atenolol (Tenormin) 25 mg BID PO Last administered on 01/28/19 08:16; Admin Dose 25 MG; Start 01/24/19 at 22:00 Levalbuterol (Xopenex Neb) 0.63 mg Q6H RESP THERAPY HHN Last administered on 01/28/19 09:00; Admin Dose 0.63 MG; Start 01/24/19 at 23:30 Enoxaparin Sodium (Lovenox) 95 mg DAILY RESP THERAPY SC Last administered on 01/28/19 11:32; Admin Dose 95 MG; Start 01/25/19 at 17:30 Sodium Chloride 1,000 ml @ 75 mls/hr [id number] IV Last administered on 01/28/19 10:02; Admin Dose 75 MLS/HR; Start 01/28/19 at 10:00 ODELL PACHECO Jan 28, 2019 12:39
[2019-01-28] MEDS ORDERED: SOD CHLORIDE 0.9% 100 ML ONE (13:50)
[2019-01-28] MEDS ORDERED: IOHEXOL 300MG/ML 150 ML BTL ONE (13:50)
--- NOTE | 2019-01-28 13:56 | CONS ---
Assessment/Plan Assessment/Plan Hospital Course (Demo Recall) IMPRESSION: 1. Tachycardia, at this time sinus tachycardia in the setting of significant pain, fevers, status post surgery. NL EF by echo 60-65. ON had onset of AF with RVR 2. Possible congestive heart failure by chest x-ray with the patient having the onset of acute renal failure at this time. 3. Hypertension, mildly elevated. 4. Postoperative status post reversal colostomy. 5. Fevers postop. 6. Renal failure, acute.-improved now 7. History of colon carcinoma status post prior colectomy with colostomy. 8. Hypernatremia, mild. 9. Hypomagnesemia. 10. Leukocytosis. Recc: -Tele -Continue PO BB and lovenox systemic anticoagulation -Digoxin IVP additional dose -Pain control -Continue abx's and f/u cx data -Follow volume status closely -Ongoing renal eval and follow-up Consultation Date/Type/Reason Admit Date/Time Jan 21, 2019 at 06:18 Initial Consult Date 01/23/19 Type of Consult Cardiology Reason for Consultation tachycardia Requesting Provider: ROSIE ROCHA Date/Time of Note DATE: 01/28/19 TIME: 13:54 Exam/Review of Systems Vital Signs Vitals Vital Signs Date Temp Pulse Resp B/P (MAP) Pulse Ox O2 O2 Flow FiO2 Time Delivery Rate 01/28/19 84 12:01 01/28/19 97.8 22 123/81 96 Room Air 11:35 (95) Nasal Cannula 01/28/19 3.0 09:00 01/27/19 30 04:33 Intake and Output 01/27/19 01/27/19 01/28/19 1515:00 23:00 07:00 IntakeIntake Total 100 ml 900 ml OutputOutput Total 900 ml BalanceBalance -800 ml 900 ml Exam Exam Review of Systems: CONSTITUTIONAL: No fevers, chills. PULMONARY: No sob CARDIOVASCULAR: No chest pain/palpitations GASTROINTESTINAL: pain in abdomen GENITOURINARY: No hematuria/dysuria. MUSCULOSKELETAL: No myagias/arthalgias. PSYCHIATRIC: The patient denies depression. NEUROLOGIC: No weakness Constitutional: alert Psych: no complaints Head: normocephalic ENMT: mucosa pink and moist Neck: supple, jvd (9 cm water) Respiratory: diminished breath sounds (at bases/B) Cardiovascular: regular rate and rhythm Gastrointestinal: soft, non-tender Musculoskeletal: muscle tone (normal) Extremities: edema (trace/B) Neurological: other (No focal deficits) Labs Result Diagram: 01/28/19 0442 01/28/19 0459 Results 24hrs Laboratory Tests Test 01/28/19 04:42 01/28/19 04:59 White Blood Count 15.6 #H Red Blood Count 3.99 L Hemoglobin 12.3 L Hematocrit 35.6 L Mean Corpuscular Volume 89.2 Mean Corpuscular Hemoglobin 30.8 Mean Corpuscular Hemoglobin Concent 34.6 Red Cell Distribution Width 13.8 Platelet Count 257 # Mean Platelet Volume 11.9 H Immature Granulocytes % 1.700 H Neutrophils % 88.7 H Lymphocytes % 4.4 L Monocytes % 4.7 Eosinophils % 0.3 Basophils % 0.2 Nucleated Red Blood Cells % 0.0 Immature Granulocytes # 0.270 H Neutrophils # 13.9 H Lymphocytes # 0.7 L Monocytes # 0.7 Eosinophils # 0.1 Basophils # 0.0 Nucleated Red Blood Cells # 0.0 Sodium Level 139 Potassium Level 3.3 L Chloride Level 109 Carbon Dioxide Level 21 Anion Gap 9 Blood Urea Nitrogen 25 H Creatinine 0.96 Est Glomerular Filtrat Rate mL/min > 60 Glucose Level 147 Calcium Level 8.2 L Phosphorus Level 3.3 Magnesium Level 2.2 Medications Medications Current Medications Miscellaneous Information (* Miscellaneous Pharmacy Order) DURAMORPH: 3.5MG EPIDU... GIVEN NEURAXIAL XX ; Start 01/21/19 at 10:00 Hydromorphone HCl (Dilaudid) 0.2 mg Q2H PRN IV .PAIN 1-5 Last administered on 01/22/19at 16:08; Admin Dose 0.2 MG; Start 01/21/19 at 12:00 Hydromorphone HCl (Dilaudid) 0.4 mg Q2H PRN IV .PAIN 6-10 Last administered on 01/28/19at 05:56; Admin Dose 0.4 MG; Start 01/21/19 at 12:00 Acetaminophen/ Hydrocodone Bitart ([place] (5/325)) 1 tab Q4H PRN PO .PAIN 4-6 Last administered on 01/25/19at 08:34; Admin Dose 1 TAB; Start 01/21/19 at 12:00 Diphenhydramine HCl (Benadryl) 25 mg Q4H PRN IV .PRURITUS; Start 01/21/19 at 12:00 Nalbuphine HCl (Nubain) 10 mg Q4H PRN IV .PRURITUS; Start 01/21/19 at 12:00 Ondansetron HCl (Zofran Inj) 4 mg Q6H PRN IV .NAUSEA/VOMITING Last administered on 01/22/19at 23:48; Admin Dose 4 MG; Start 01/21/19 at 12:00 Trimethobenzamide HCl (Tigan) 200 mg Q6H PRN IM .NAUSEA/VOMITING; Start 01/21/19 at 12:00 Zolpidem Tartrate (Ambien) 5 mg HS MAY REPEAT X 1 PRN PO .INSOMNIA; Start 01/21/19 at 12:00 Naloxone HCl (Narcan) 0.2 mg Q2M PRN IV .RESP RATE; Start 01/21/19 at 12:00 Hydralazine HCl (Apresoline) 10 mg Q4H PRN IV >150/95 Last administered on 01/24/19at 05:34; Admin Dose 10 MG; Start 01/21/19 at 14:00 Metoprolol Tartrate (Lopressor) 5 mg Q4H PRN IV HR>110 HOld SBP<100 Last administered on 01/25/19 05:11; Admin Dose 5 MG; Start 01/23/19 at 20:30 Piperacillin Sod/ Tazobactam Sod 100 ml @ 200 mls/hr Q8 IVPB Last administered on 01/28/19at 05:56; Admin Dose 200 MLS/HR; Start 01/24/19 at 09:00 Metronidazole 100 ml @ 100 mls/hr Q8 IVPB Last administered on 01/28/19 05:56; Admin Dose 100 MLS/HR; Start 01/24/19 at 09:00 Atenolol (Tenormin) 25 mg BID PO Last administered on 01/28/19 08:16; Admin Dose 25 MG; Start 01/24/19 at 22:00 Levalbuterol (Xopenex Neb) 0.63 mg Q6H RESP THERAPY HHN Last administered on 01/28/19at 13:32; Admin Dose 0.63 MG; Start 01/24/19 at 23:30 Enoxaparin Sodium (Lovenox) 95 mg DAILY RESP THERAPY SC Last administered on 01/28/19at 11:32; Admin Dose 95 MG; Start 01/25/19 at 17:30 Sodium Chloride 1,000 ml @ 75 mls/hr [id number] IV Last administered on 01/28/19at 10:02; Admin Dose 75 MLS/HR; Start 01/28/19 at 10:00 EUGENE ANDERSON Jan 28, 2019 13:56
[2019-01-29] VITALS (10 sets, daily range): BP systolic 122–140; BP diastolic 73–85; PULSE 70–101; RESP 18–20
[2019-01-29] MEDS: LEVALBUTEROL (NEB) 0.63 MG/3 ML AMP HHN SCH ×4 (01:57→20:12)
[2019-01-29] MEDS: SOD CHLORIDE 0.45% 1,000 ML IV SCH (03:32)
[2019-01-29] MEDS: metroNIDAZOLE 500 MG/NS (PMX) 100 ML IVPB SCH ×3 (05:34→21:00)
[2019-01-29] MEDS: PIPER-TAZO 3.375 GM IV (PMX) 100 ML IVPB SCH ×3 (05:34→22:07)
[2019-01-29] MEDS: ATENOLOL 25 MG TAB PO SCH ×2 (07:50→20:51)
[2019-01-29] MEDS ORDERED: POTASSIUM CHLORIDE 40 MEQ in SOD CHLORIDE 0.45% 1,000 ML IV SCH (08:30)
[2019-01-29] MEDS ORDERED: POTASSIUM CHLORIDE (SR) 20 MEQ TAB PO STA (08:48)
--- NOTE | 2019-01-29 10:22 | PN ---
Date/Time of Note Date/Time of Note DATE: 01/29/19 TIME: 10:19 Assessment/Plan VTE Prophylaxis Risk score (from Ns)>0 risk: 2 SCD applied (from Ns): Yes Pharmacological prophylaxis: other Lines/Catheters IV [facility] Type (from [facility]): Peripheral IV Urinary Cath still in place: No Assessment/Plan Assessment/Plan s/p colostomy reversal for colon cancer s/p chemo with cirrhosis most likely from history of alcohol abuse small wound infection patient tolerating diet and no nausea nor vomiting with good bowel movements no concern for peritonitis or anastomotic leak but suspect leukocytosis from wound infection or pleural effusion will continue abx to prevent SBP in the perioperative period continue close monitoring and management Result Diagram: 01/29/19 0501 01/29/19 0501 Results 24hrs Laboratory Tests Test 01/29/19 04:56 01/29/19 05:01 B-Type Natriuretic Peptide 3690 H White Blood Count 19.3 #H Red Blood Count 4.03 L Hemoglobin 12.3 L Hematocrit 36.1 L Mean Corpuscular Volume 89.6 Mean Corpuscular Hemoglobin 30.5 Mean Corpuscular Hemoglobin Concent 34.1 Red Cell Distribution Width 13.9 Platelet Count 338 # Mean Platelet Volume 12.0 H Immature Granulocytes % 2.600 H Neutrophils % 88.9 H Lymphocytes % 3.6 L Monocytes % 4.0 Eosinophils % 0.6 Basophils % 0.3 Nucleated Red Blood Cells % 0.0 Immature Granulocytes # 0.510 H Neutrophils # 17.1 H Lymphocytes # 0.7 L Monocytes # 0.8 Eosinophils # 0.1 Basophils # 0.1 Nucleated Red Blood Cells # 0.0 Sodium Level 135 Potassium Level 3.0 L Chloride Level 106 Carbon Dioxide Level 21 Anion Gap 8 Blood Urea Nitrogen 23 H Creatinine 0.94 Est Glomerular Filtrat Rate mL/min > 60 Glucose Level 120 Calcium Level 8.0 L Phosphorus Level 3.7 Magnesium Level 2.2 Total Bilirubin 0.5 Direct Bilirubin 0.00 Indirect Bilirubin 0.5 Aspartate Amino Transf (AST/SGOT) 28 Alanine Aminotransferase (ALT/SGPT) 20 Alkaline Phosphatase 70 Total Protein 5.4 L Albumin 2.6 L Globulin 2.80 Albumin/Globulin Ratio 0.92 Subjective 24 Hr Interval Summary Free Text/Dictation CT scan with ascites and increased leukocytosis additionally air in the wound with probable wound infection Exam/Review of Systems Exam Vitals Vital Signs Date Temp Pulse Resp B/P (MAP) Pulse Ox O2 O2 Flow FiO2 Time Delivery Rate 01/29/19 93 2.0 08:40 01/29/19 80 20 Nasal 08:37 Cannula 01/29/19 97.4 128/84 07:14 (99) 01/27/19 30 04:33 Intake and Output 01/28/19 01/28/19 01/29/19 1515:00 23:00 07:00 IntakeIntake Total 480 ml 1500 ml BalanceBalance 480 ml 1500 ml Exam midline incision opened up with air in the wound and packed Results Results 24hrs Laboratory Tests Test 01/29/19 04:56 01/29/19 05:01 B-Type Natriuretic Peptide 3690 H White Blood Count 19.3 #H Red Blood Count 4.03 L Hemoglobin 12.3 L Hematocrit 36.1 L Mean Corpuscular Volume 89.6 Mean Corpuscular Hemoglobin 30.5 Mean Corpuscular Hemoglobin Concent 34.1 Red Cell Distribution Width 13.9 Platelet Count 338 # Mean Platelet Volume 12.0 H Immature Granulocytes % 2.600 H Neutrophils % 88.9 H Lymphocytes % 3.6 L Monocytes % 4.0 Eosinophils % 0.6 Basophils % 0.3 Nucleated Red Blood Cells % 0.0 Immature Granulocytes # 0.510 H Neutrophils # 17.1 H Lymphocytes # 0.7 L Monocytes # 0.8 Eosinophils # 0.1 Basophils # 0.1 Nucleated Red Blood Cells # 0.0 Sodium Level 135 Potassium Level 3.0 L Chloride Level 106 Carbon Dioxide Level 21 Anion Gap 8 Blood Urea Nitrogen 23 H Creatinine 0.94 Est Glomerular Filtrat Rate mL/min > 60 Glucose Level 120 Calcium Level 8.0 L Phosphorus Level 3.7 Magnesium Level 2.2 Total Bilirubin 0.5 Direct Bilirubin 0.00 Indirect Bilirubin 0.5 Aspartate Amino Transf (AST/SGOT) 28 Alanine Aminotransferase (ALT/SGPT) 20 Alkaline Phosphatase 70 Total Protein 5.4 L Albumin 2.6 L Globulin 2.80 Albumin/Globulin Ratio 0.92 Medications Medication Current Medications Miscellaneous Information (* Miscellaneous Pharmacy Order) DURAMORPH: 3.5MG EPIDU... GIVEN NEURAXIAL XX ; Start 01/21/19 at 10:00 Hydromorphone HCl (Dilaudid) 0.2 mg Q2H PRN IV .PAIN 1-5 Last administered on 4/9/19at 16:08; Admin Dose 0.2 MG; Start 01/21/19 at 12:00 Hydromorphone HCl (Dilaudid) 0.4 mg Q2H PRN IV .PAIN 6-10 Last administered on 01/28/19 05:56; Admin Dose 0.4 MG; Start 01/21/19 at 12:00 Acetaminophen/ Hydrocodone Bitart ([place] (5/325)) 1 tab Q4H PRN PO .PAIN 4-6 Last administered on 01/25/19 08:34; Admin Dose 1 TAB; Start 01/21/19 at 12:00 Diphenhydramine HCl (Benadryl) 25 mg Q4H PRN IV .PRURITUS; Start 01/21/19 at 12:00 Nalbuphine HCl (Nubain) 10 mg Q4H PRN IV .PRURITUS; Start 01/21/19 at 12:00 Ondansetron HCl (Zofran Inj) 4 mg Q6H PRN IV .NAUSEA/VOMITING Last administered on 01/22/19 23:48; Admin Dose 4 MG; Start 01/21/19 at 12:00 Trimethobenzamide HCl (Tigan) 200 mg Q6H PRN IM .NAUSEA/VOMITING; Start 01/21/19 at 12:00 Zolpidem Tartrate (Ambien) 5 mg HS MAY REPEAT X 1 PRN PO .INSOMNIA; Start 01/21/19 at 12:00 Naloxone HCl (Narcan) 0.2 mg Q2M PRN IV .RESP RATE; Start 01/21/19 at 12:00 Hydralazine HCl (Apresoline) 10 mg Q4H PRN IV >150/95 Last administered on 01/24/19 05:34; Admin Dose 10 MG; Start 01/21/19 at 14:00 Metoprolol Tartrate (Lopressor) 5 mg Q4H PRN IV HR>110 HOld SBP<100 Last administered on 01/25/19 05:11; Admin Dose 5 MG; Start 01/23/19 at 20:30 Piperacillin Sod/ Tazobactam Sod 100 ml @ 200 mls/hr Q8 IVPB Last administered on 01/29/19 05:34; Admin Dose 200 MLS/HR; Start 01/24/19 at 09:00 Metronidazole 100 ml @ 100 mls/hr Q8 IVPB Last administered on 01/29/19 05:34; Admin Dose 100 MLS/HR; Start 01/24/19 at 09:00 Atenolol (Tenormin) 25 mg BID PO Last administered on 01/29/19 07:50; Admin Dose 25 MG; Start 01/24/19 at 22:00 Levalbuterol (Xopenex Neb) 0.63 mg Q6H RESP THERAPY HHN Last administered on 01/29/19 08:34; Admin Dose 0.63 MG; Start 01/24/19 at 23:30 Enoxaparin Sodium (Lovenox) 95 mg DAILY RESP THERAPY SC Last administered on 01/28/19 11:32; Admin Dose 95 MG; Start 01/25/19 at 17:30 Potassium Chloride 40 meq/ Sodium Chloride 1,000 ml @ 40 mls/hr Q24H IV Last administered on 01/29/19 10:13; Admin Dose 40 MLS/HR; Start 01/29/19 at 08:30 Ann FERNANDEZ Jan 29, 2019 10:22
[2019-01-29] MEDS ORDERED: FUROSEMIDE 20 MG INJ IV ONE (10:30)
--- NOTE | 2019-01-29 10:39 | CONS ---
Consultation Date/Type/Reason Admit Date/Time Jan 21, 2019 at 06:18 Initial Consult Date Type of Consult Cardiology Requesting Provider: ROSIE ROCHA Date/Time of Note DATE: 01/29/19 TIME: 10:39 24 HR Interval Summary Free Text/Dictation VS reviewed - stable Exam/Review of Systems Vital Signs Vitals Vital Signs Date Temp Pulse Resp B/P (MAP) Pulse Ox O2 O2 Flow FiO2 Time Delivery Rate 01/29/19 93 2.0 08:40 01/29/19 80 20 Nasal 08:37 Cannula 01/29/19 97.4 128/84 07:14 (99) 01/27/19 30 04:33 Intake and Output 01/28/19 01/28/19 01/29/19 1515:00 23:00 07:00 IntakeIntake Total 480 ml 1500 ml BalanceBalance 480 ml 1500 ml Labs Result Diagram: 01/29/19 0501 01/29/19 0501 Results 24hrs Laboratory Tests Test 01/29/19 04:56 01/29/19 05:01 B-Type Natriuretic Peptide 3690 H White Blood Count 19.3 #H Red Blood Count 4.03 L Hemoglobin 12.3 L Hematocrit 36.1 L Mean Corpuscular Volume 89.6 Mean Corpuscular Hemoglobin 30.5 Mean Corpuscular Hemoglobin Concent 34.1 Red Cell Distribution Width 13.9 Platelet Count 338 # Mean Platelet Volume 12.0 H Immature Granulocytes % 2.600 H Neutrophils % 88.9 H Lymphocytes % 3.6 L Monocytes % 4.0 Eosinophils % 0.6 Basophils % 0.3 Nucleated Red Blood Cells % 0.0 Immature Granulocytes # 0.510 H Neutrophils # 17.1 H Lymphocytes # 0.7 L Monocytes # 0.8 Eosinophils # 0.1 Basophils # 0.1 Nucleated Red Blood Cells # 0.0 Sodium Level 135 Potassium Level 3.0 L Chloride Level 106 Carbon Dioxide Level 21 Anion Gap 8 Blood Urea Nitrogen 23 H Creatinine 0.94 Est Glomerular Filtrat Rate mL/min > 60 Glucose Level 120 Calcium Level 8.0 L Phosphorus Level 3.7 Magnesium Level 2.2 Total Bilirubin 0.5 Direct Bilirubin 0.00 Indirect Bilirubin 0.5 Aspartate Amino Transf (AST/SGOT) 28 Alanine Aminotransferase (ALT/SGPT) 20 Alkaline Phosphatase 70 Total Protein 5.4 L Albumin 2.6 L Globulin 2.80 Albumin/Globulin Ratio 0.92 Medications Medications Current Medications Miscellaneous Information (* Miscellaneous Pharmacy Order) DURAMORPH: 3.5MG EPI DU... GIVEN NEURAXIAL XX ; Start 01/21/19 at 10:00 Hydromorphone HCl (Dilaudid) 0.2 mg Q2H PRN IV .PAIN 1-5 Last administered on 01/22/19at 16:08; Admin Dose 0.2 MG; Start 01/21/19 at 12:00 Hydromorphone HCl (Dilaudid) 0.4 mg Q2H PRN IV .PAIN 6-10 Last administered on 01/28/19at 05:56; Admin Dose 0.4 MG; Start 01/21/19 at 12:00 Acetaminophen/ Hydrocodone Bitart ([place] (5/325)) 1 tab Q4H PRN PO .PAIN 4-6 Last administered on 01/25/19at 08:34; Admin Dose 1 TAB; Start 01/21/19 at 12:00 Diphenhydramine HCl (Benadryl) 25 mg Q4H PRN IV .PRURITUS; Start 01/21/19 at 12:00 Nalbuphine HCl (Nubain) 10 mg Q4H PRN IV .PRURITUS; Start 01/21/19 at 12:00 Ondansetron HCl (Zofran Inj) 4 mg Q6H PRN IV .NAUSEA/VOMITING Last administered on 01/22/19at 23:48; Admin Dose 4 MG; Start 01/21/19 at 12:00 Trimethobenzamide HCl (Tigan) 200 mg Q6H PRN IM .NAUSEA/VOMITING; Start 01/21/19 at 12:00 Zolpidem Tartrate (Ambien) 5 mg HS MAY REPEAT X 1 PRN PO .INSOMNIA; Start 01/21/19 at 12:00 Naloxone HCl (Narcan) 0.2 mg Q2M PRN IV .RESP RATE; Start 01/21/19 at 12:00 Hydralazine HCl (Apresoline) 10 mg Q4H PRN IV >150/95 Last administered on 01/24/19at 05:34; Admin Dose 10 MG; Start 01/21/19 at 14:00 Metoprolol Tartrate (Lopressor) 5 mg Q4H PRN IV HR>110 HOld SBP<100 Last administered on 01/25/19 05:11; Admin Dose 5 MG; Start 01/23/19 at 20:30 Piperacillin Sod/ Tazobactam Sod 100 ml @ 200 mls/hr Q8 IVPB Last administered on 01/29/19 05:34; Admin Dose 200 MLS/HR; Start 01/24/19 at 09:00 Metronidazole 100 ml @ 100 mls/hr Q8 IVPB Last administered on 01/29/19 05:34; Admin Dose 100 MLS/HR; Start 01/24/19 at 09:00 Atenolol (Tenormin) 25 mg BID PO Last administered on 01/29/19 07:50; Admin Dose 25 MG; Start 01/24/19 at 22:00 Levalbuterol (Xopenex Neb) 0.63 mg Q6H RESP THERAPY HHN Last administered on 01/29/19 08:34; Admin Dose 0.63 MG; Start 01/24/19 at 23:30 Enoxaparin Sodium (Lovenox) 95 mg DAILY RESP THERAPY SC Last administered on 01/28/19 11:32; Admin Dose 95 MG; Start 01/25/19 at 17:30 SUSSY ANTHONY MD Jan 29, 2019 10:39
[2019-01-29] MEDS: ENOXAPARIN 100 MG/ML SYG SC SCH (11:06)
--- NOTE | 2019-01-29 13:46 | PN ---
DATE: 01/29/2019 SUBJECTIVE: The patient is complaining of respiratory shortness of breath. As stated, the patient r eceived diuretic therapy. The patient is currently on IV fluids. No other acute events noted. No h emoptysis, hematemesis, hematochezia. OBJECTIVE: VITAL SIGNS: Blood pressure is 128/84, respiratory rate 20, pulse 84, temperature 97.4. HEENT: Head is normocephalic. NECK: Supple. HEART: Regular rate. LUNGS: Show diminished breath sounds at base. Positive crackles. ABDOMEN: Soft, nontender to palpation. No rebound or guarding. EXTREMITIES: Negative for clubbing, cyanosis. Positive edema. DERMATOLOGIC: No rashes. MUSCULOSKELETAL: No joint effusion. NEUROLOGIC: No change in exam. MEDICATIONS: Have been reviewed. LABORATORY DATA: Show sodium 135, potassium 3.0, BUN 23, creatinine 0.94. White count 19.3, hemoglo bin 12.3, platelet count 338. IMAGING STUDIES: Have been reviewed. IMAGING: Chest x-ray, CT scan of abdomen and pelvis was reviewed. The patient's CT scan does show e vidence of ascites, questionable peritonitis, questionable abscess, noted right lung infiltrate and m oderate sized pericardial effusion. ASSESSMENT AND PLAN: 1. Nonoliguric acute kidney injury with previously normal baseline creatinine. Etiology of acute ki dney injury is secondary to acute tubular necrosis. Renal function is improved. Continue to monitor . 2. Hypokalemia. We will replete with potassium chloride 60 mEq p.o. x1. 3. Volume overload. The patient has noted lower extremity edema. We would recommend to deescalate IV fluids as the patient is currently on regular diet. We will give intermittent diuretic therapy. 4. Acute respiratory failure secondary to possible pneumonia, bronchitis. Continue current antibiot ic regimen. I agree with de-escalating or discontinuing IV fluids as the patient had previous episod es of pulmonary edema. 5. Tachyarrhythmia. Etiology is multifactorial. Continue to monitor. Follow up with cardiology. 6. Metabolic acidosis secondary to acute kidney injury, improved. 7. Systemic inflammatory response syndrome. 8. History of colon cancer, status post Reagan reversal. The patient's CT scan of abdomen and pel vis was reviewed. Findings showed moderate ascites, questionable peritonitis or abscess. Follow up with general surgery. 9. Hypertension. Continue current blood pressure regimen. 10. History of deep venous thrombosis. 11. Hypernatremia, resolved. Dictated By: SUSAN ZURITA DO NR/MARIAN Conf#: [id number] DID#: [id number] CC: JACOB FERNANDEZ MD; ANDREY ZHENG MD;*EndCC*
--- NOTE | 2019-01-29 16:28 | PN ---
Date/Time of Note Date/Time of Note DATE: 01/29/19 TIME: 16:06 Assessment/Plan VTE Prophylaxis Risk score (from Nsg)>0 risk: 2 SCD applied (from Nsg): Yes Pharmacological prophylaxis: LMWH Lines/Catheters IV Catheter Type (from Nrs): Peripheral IV Urinary Cath still in place: No Assessment/Plan Hospital Course Patient with increased leukocytosis currently on Zosyn and Flagyl, CT of the abdomen and pelvis revealed moderate ascites, questionable peritonitis or abscess, and increasing right lower lobe infiltrate. Patient gets short of breath on exertion, currently on Lasix. Tolerates diet without nausea and vomiting, BM. No fever. Abdomen is very distended, soft. Assessment/Plan -Increased leukocytosis patient is currently on Zosyn and Flagyl, CT revealed moderate ascites, questionable peritonitis or abscess increased right lower lobe infiltrate. Dr. Vázquez is asked to see patient in infection disease consultation. -S/p open Reagan reversal and colorectal low pelvic anastomosis, segmental partial colectomy, and open incarcerated incisional and parastomal hernia repairs with mesh by Dr. Art on 01/21/2019. Continue [place] and Dilaudid as needed for pain and Zofran as needed for nausea. -Stage III sigmoid colon cancer, status post surgery and chemo in 2018. -Acute kidney injury on chronic kidney disease, monitor urine output BUN and creatinine. Dr. Stuart is following in nephrology consultation. -Acute on chronic diastolic CHF -Atrial fibrillation. -Obstructive sleep apnea -History of hypertension -History of left upper extremity DVT Further recommendations based on clinical course. Plan of care discussed with Dr. Fox. Result Diagram: 01/29/19 0501 01/29/19 0501 Results 24hrs Laboratory Tests Test 01/29/19 04:56 01/29/19 05:01 B-Type Natriuretic Peptide 3690 H White Blood Count 19.3 #H Red Blood Count 4.03 L Hemoglobin 12.3 L Hematocrit 36.1 L Mean Corpuscular Volume 89.6 Mean Corpuscular Hemoglobin 30.5 Mean Corpuscular Hemoglobin Concent 34.1 Red Cell Distribution Width 13.9 Platelet Count 338 # Mean Platelet Volume 12.0 H Immature Granulocytes % 2.600 H Neutrophils % 88.9 H Lymphocytes % 3.6 L Monocytes % 4.0 Eosinophils % 0.6 Basophils % 0.3 Nucleated Red Blood Cells % 0.0 Immature Granulocytes # 0.510 H Neutrophils # 17.1 H Lymphocytes # 0.7 L Monocytes # 0.8 Eosinophils # 0.1 Basophils # 0.1 Nucleated Red Blood Cells # 0.0 Sodium Level 135 Potassium Level 3.0 L Chloride Level 106 Carbon Dioxide Level 21 Anion Gap 8 Blood Urea Nitrogen 23 H Creatinine 0.94 Est Glomerular Filtrat Rate mL/min > 60 Glucose Level 120 Calcium Level 8.0 L Phosphorus Level 3.7 Magnesium Level 2.2 Total Bilirubin 0.5 Direct Bilirubin 0.00 Indirect Bilirubin 0.5 Aspartate Amino Transf (AST/SGOT) 28 Alanine Aminotransferase (ALT/SGPT) 20 Alkaline Phosphatase 70 Total Protein 5.4 L Albumin 2.6 L Globulin 2.80 Albumin/Globulin Ratio 0.92 Exam/Review of Systems Exam Vitals Vital Signs Date Temp Pulse Resp B/P (MAP) Pulse Ox O2 O2 Flow FiO2 Time Delivery Rate 01/29/19 97.9 88 20 129/79 96 Ambu Bag 15:01 (96) Nasal Cannula 01/29/19 2.0 08:40 01/27/19 30 04:33 Intake and Output 01/28/19 01/28/19 01/29/19 1515:00 23:00 07:00 IntakeIntake Total 480 ml 1500 ml BalanceBalance 480 ml 1500 ml Exam Constitutional: alert, oriented Respiratory: clear to auscultation Cardiovascular: regular rate and rhythm Gastrointestinal: soft, other (s/p surgery) Genitourinary - Male: other ([place]) Musculoskeletal: nl extremities to inspection Extremities: normal pulses Neurological: nl mental status Results Results 24hrs Laboratory Tests Test 01/29/19 04:56 01/29/19 05:01 B-Type Natriuretic Peptide 3690 H White Blood Count 19.3 #H Red Blood Count 4.03 L Hemoglobin 12.3 L Hematocrit 36.1 L Mean Corpuscular Volume 89.6 Mean Corpuscular Hemoglobin 30.5 Mean Corpuscular Hemoglobin Concent 34.1 Red Cell Distribution Width 13.9 Platelet Count 338 # Mean Platelet Volume 12.0 H Immature Granulocytes % 2.600 H Neutrophils % 88.9 H Lymphocytes % 3.6 L Monocytes % 4.0 Eosinophils % 0.6 Basophils % 0.3 Nucleated Red Blood Cells % 0.0 Immature Granulocytes # 0.510 H Neutrophils # 17.1 H Lymphocytes # 0.7 L Monocytes # 0.8 Eosinophils # 0.1 Basophils # 0.1 Nucleated Red Blood Cells # 0.0 Sodium Level 135 Potassium Level 3.0 L Chloride Level 106 Carbon Dioxide Level 21 Anion Gap 8 Blood Urea Nitrogen 23 H Creatinine 0.94 Est Glomerular Filtrat Rate mL/min > 60 Glucose Level 120 Calcium Level 8.0 L Phosphorus Level 3.7 Magnesium Level 2.2 Total Bilirubin 0.5 Direct Bilirubin 0.00 Indirect Bilirubin 0.5 Aspartate Amino Transf (AST/SGOT) 28 Alanine Aminotransferase (ALT/SGPT) 20 Alkaline Phosphatase 70 Total Protein 5.4 L Albumin 2.6 L Globulin 2.80 Albumin/Globulin Ratio 0.92 Medications Medication Current Medications Miscellaneous Information (* Miscellaneous Pharmacy Order) DURAMORPH: 3.5MG EPIDU... GIVEN NEURAXIAL XX ; Start 01/21/19 at 10:00 Hydromorphone HCl (Dilaudid) 0.2 mg Q2H PRN IV .PAIN 1-5 Last administered on 01/22/19at 16:08; Admin Dose 0.2 MG; Start 01/21/19 at 12:00 Hydromorphone HCl (Dilaudid) 0.4 mg Q2H PRN IV .PAIN 6-10 Last administered on 01/28/19at 05:56; Admin Dose 0.4 MG; Start 01/21/19 at 12:00 Acetaminophen/ Hydrocodone Bitart ([place] (5/325)) 1 tab Q4H PRN PO .PAIN 4-6 Last administered on 01/25/19at 08:34; Admin Dose 1 TAB; Start 01/21/19 at 12:00 Diphenhydramine HCl (Benadryl) 25 mg Q4H PRN IV .PRURITUS; Start 01/21/19 at 12:00 Nalbuphine HCl (Nubain) 10 mg Q4H PRN IV .PRURITUS; Start 01/21/19 at 12:00 Ondansetron HCl (Zofran Inj) 4 mg Q6H PRN IV .NAUSEA/VOMITING Last administered on 01/22/19at 23:48; Admin Dose 4 MG; Start 01/21/19 at 12:00 Trimethobenzamide HCl (Tigan) 200 mg Q6H PRN IM .NAUSEA/VOMITING; Start 01/21/19 at 12:00 Zolpidem Tartrate (Ambien) 5 mg HS MAY REPEAT X 1 PRN PO .INSOMNIA; Start 01/21/19 at 12:00 Naloxone HCl (Narcan) 0.2 mg Q2M PRN IV .RESP RATE; Start 01/21/19 at 12:00 Hydralazine HCl (Apresoline) 10 mg Q4H PRN IV >150/95 Last administered on 01/24/19 05:34; Admin Dose 10 MG; Start 01/21/19 at 14:00 Metoprolol Tartrate (Lopressor) 5 mg Q4H PRN IV HR>110 HOld SBP<100 Last administered on 01/25/19 05:11; Admin Dose 5 MG; Start 01/23/19 at 20:30 Piperacillin Sod/ Tazobactam Sod 100 ml @ 200 mls/hr Q8 IVPB Last administered on 01/29/19 14:23; Admin Dose 200 MLS/HR; Start 01/24/19 at 09:00 Metronidazole 100 ml @ 100 mls/hr Q8 IVPB Last administered on 01/29/19at 14:23; Admin Dose 100 MLS/HR; Start 01/24/19 at 09:00 Atenolol (Tenormin) 25 mg BID PO Last administered on 01/29/19 07:50; Admin Dose 25 MG; Start 01/24/19 at 22:00 Levalbuterol (Xopenex Neb) 0.63 mg Q6H RESP THERAPY HHN Last administered on 01/29/19 15:51; Admin Dose 0.63 MG; Start 01/24/19 at 23:30 Enoxaparin Sodium (Lovenox) 95 mg DAILY RESP THERAPY SC Last administered on 01/29/19 11:06; Admin Dose 95 MG; Start 01/25/19 at 17:30 ODELL PACHECO Jan 29, 2019 16:22
[2019-01-29] MEDS: ACETAMINOPHEN 325 MG TAB PO PRN (23:29)
[2019-01-29] MEDS: AL HYDROX/MG HYDROX/SIMETH 30 ML CUP PO PRN (23:30)
[2019-01-30] VITALS (12 sets, daily range): BP systolic 117–143; BP diastolic 78–87; PULSE 73–97; RESP 18–22; Ht 170.2 cm; Wt 101.0 kg
[2019-01-30] MEDS: LEVALBUTEROL (NEB) 0.63 MG/3 ML AMP HHN SCH ×4 (01:42→19:39)
[2019-01-30] MEDS: PIPER-TAZO 3.375 GM IV (PMX) 100 ML IVPB SCH ×2 (05:01→14:22)
[2019-01-30] MEDS: metroNIDAZOLE 500 MG/NS (PMX) 100 ML IVPB SCH ×2 (05:45→15:22)
[2019-01-30] MEDS ORDERED: POTASSIUM CHLORIDE (SR) 20 MEQ TAB PO STA (08:20)
[2019-01-30] MEDS ORDERED: FUROSEMIDE 20 MG INJ IV ONE (08:30)
--- NOTE | 2019-01-30 09:17 | PN ---
DATE: 01/30/2019 SUBJECTIVE: The patient is stable. No events overnight. OBJECTIVE: VITAL SIGNS: Blood pressure is 117/78, respirations 22, pulse 79, temperature 97.5. HEENT: Head is normocephalic. NECK: Supple. HEART: Regular rate. LUNGS: Show diminished breath sounds at the base. ABDOMEN: Soft, nontender to palpation without rebound or guarding. EXTREMITIES: Negative for clubbing, cyanosis. Positive edema. DERMATOLOGIC: No rashes. MUSCULOSKELETAL: No joint effusion. NEUROLOGIC: No change in exam. MEDICATIONS: Reviewed. LABORATORY DATA: Reviewed. ASSESSMENT AND PLAN: 1. Nonoliguric acute kidney injury secondary to acute tubular necrosis. Renal function is improved. Continue to monitor. 2. Hypokalemia. We will replete with potassium chloride. 3. Volume overload. The patient's IV fluids have been discontinued. Continue diuretic therapy. 4. Acute respiratory failure secondary to pneumonia, bronchitis, and pulmonary edema. Continue curr ent medical management. Continue antibiotics. Continue intermittent diuretic therapy. 5. Tachyarrhythmia. Etiology is multifactorial. Continue to monitor. Follow up with Cardiology. 6. Metabolic acidosis secondary to acute kidney injury, improved. 7. Systemic inflammatory response syndrome. 8. History of colon cancer, status post Reagan reversal. 9. Hypertension. Continue current blood pressure regimen. 10. History of deep vein thrombosis. 11. Hypernatremia, improved. Dictated By: SUSAN ZURITA DO NR/NTS Conf#: [id number] DID#: [id number] CC: ANDREY ZHENG MD; JACOB FERNANDEZ MD;*End*
--- NOTE | 2019-01-30 09:20 | QN ---
Documentation Comment ID consult was received, we will be in to see the patient, thank you. JUSTYN WORLEY NP Jan 30, 2019 09:20
[2019-01-30] MEDS: ATENOLOL 25 MG TAB PO SCH (09:35)
--- NOTE | 2019-01-30 13:01 | PN ---
Date/Time of Note Date/Time of Note DATE: 01/30/19 TIME: 12:54 Assessment/Plan VTE Prophylaxis Risk score (from Nsg)>0 risk: 3 SCD applied (from Nsg): Yes Pharmacological prophylaxis: LMWH Lines/Catheters IV Catheter Type (from Nrsg): Peripheral IV Urinary Cath still in place: No Assessment/Plan Hospital Course Patient with persistent leukocytosis, distended abdomen, and shortness of breath on exertion, currently on Zosyn and Flagyl. Patient tolerates diet without nausea and vomiting, having BMs, afebrile. Assessment/Plan -Increased leukocytosis patient is currently on Zosyn and Flagyl, CT of the abdomen and pelvis revealed moderate ascites, questionable peritonitis or abscess increased right lower lobe infiltrate. Dr. Vázquez is asked to see patient in infection disease consultation. -Possible surgical wound infection, obtain wound cx. -Right lower lobe infiltrate -S/p open Reagan reversal and colorectal low pelvic anastomosis, segmental partial colectomy, and open incarcerated incisional and parastomal hernia repairs with mesh by Dr. Art on 01/21/2019. Continue [place] and Dilaudid as needed for pain and Zofran as needed for nausea. -Stage III sigmoid colon cancer, status post surgery and chemo in 2018. -Acute kidney injury on chronic kidney disease, monitor urine output BUN and creatinine. Dr. Stuart is following in nephrology consultation. -Acute on chronic diastolic CHF -Atrial fibrillation. -Obstructive sleep apnea -History of hypertension -History of left upper extremity DVT Further recommendations based on clinical course. Plan of care discussed with Dr. Fox. Result Diagram: 01/30/19 1049 01/30/19 0517 Results 24hrs Laboratory Tests Test 01/30/19 05:17 01/30/19 10:49 Sodium Level 135 Potassium Level 3.2 L Chloride Level 106 Carbon Dioxide Level 20 L Anion Gap 9 Blood Urea Nitrogen 24 H Creatinine 1.02 Est Glomerular Filtrat Rate mL/min > 60 Glucose Level 148 Calcium Level 8.1 L Total Bilirubin 0.4 Direct Bilirubin 0.00 Indirect Bilirubin 0.4 Aspartate Amino Transf (AST/SGOT) 34 Alanine Aminotransferase (ALT/SGPT) 25 Alkaline Phosphatase 83 Total Protein 5.4 L Albumin 2.5 L Globulin 2.90 Albumin/Globulin Ratio 0.86 White Blood Count 19.9 H Red Blood Count 3.99 L Hemoglobin 12.1 L Hematocrit 36.1 L Mean Corpuscular Volume 90.5 Mean Corpuscular Hemoglobin 30.3 Mean Corpuscular Hemoglobin Concent 33.5 Red Cell Distribution Width 14.1 Platelet Count 436 #H Mean Platelet Volume 11.8 H Immature Granulocytes % 2.400 H Neutrophils % 89.6 H Lymphocytes % 2.9 L Monocytes % 3.9 Eosinophils % 0.7 Basophils % 0.5 Nucleated Red Blood Cells % 0.0 Immature Granulocytes # 0.480 H Neutrophils # 17.9 H Lymphocytes # 0.6 L Monocytes # 0.8 Eosinophils # 0.1 Basophils # 0.1 Nucleated Red Blood Cells # 0.0 Exam/Review of Systems Exam Vitals Vital Signs Date Temp Pulse Resp B/P (MAP) Pulse Ox O2 O2 Flow FiO2 Time Delivery Rate 01/30/19 98.2 95 20 135/82 96 Room Air 12:03 (99) 01/30/19 3.0 07:52 01/27/19 30 04:33 Intake and Output 01/29/19 01/29/19 01/30/19 1515:00 23:00 07:00 IntakeIntake Total 1200 ml 1000 ml OutputOutput Total 800 ml 1200 ml BalanceBalance 400 ml -200 ml Exam Constitutional: alert, oriented Respiratory: clear to auscultation Cardiovascular: regular rate and rhythm Gastrointestinal: soft, other (s/p surgery) Genitourinary - Male: other ([place]) Musculoskeletal: nl extremities to inspection Extremities: normal pulses Neurological: nl mental status Results Results 24hrs Laboratory Tests Test 01/30/19 05:17 01/30/19 10:49 Sodium Level 135 Potassium Level 3.2 L Chloride Level 106 Carbon Dioxide Level 20 L Anion Gap 9 Blood Urea Nitrogen 24 H Creatinine 1.02 Est Glomerular Filtrat Rate mL/min > 60 Glucose Level 148 Calcium Level 8.1 L Total Bilirubin 0.4 Direct Bilirubin 0.00 Indirect Bilirubin 0.4 Aspartate Amino Transf (AST/SGOT) 34 Alanine Aminotransferase (ALT/SGPT) 25 Alkaline Phosphatase 83 Total Protein 5.4 L Albumin 2.5 L Globulin 2.90 Albumin/Globulin Ratio 0.86 White Blood Count 19.9 H Red Blood Count 3.99 L Hemoglobin 12.1 L Hematocrit 36.1 L Mean Corpuscular Volume 90.5 Mean Corpuscular Hemoglobin 30.3 Mean Corpuscular Hemoglobin Concent 33.5 Red Cell Distribution Width 14.1 Platelet Count 436 #H Mean Platelet Volume 11.8 H Immature Granulocytes % 2.400 H Neutrophils % 89.6 H Lymphocytes % 2.9 L Monocytes % 3.9 Eosinophils % 0.7 Basophils % 0.5 Nucleated Red Blood Cells % 0.0 Immature Granulocytes # 0.480 H Neutrophils # 17.9 H Lymphocytes # 0.6 L Monocytes # 0.8 Eosinophils # 0.1 Basophils # 0.1 Nucleated Red Blood Cells # 0.0 Medications Medication Current Medications Miscellaneous Information (* Miscellaneous Pharmacy Order) DURAMORPH: 3.5MG EPIDU... GIVEN NEURAXIAL XX ; Start 01/21/19 at 10:00 Hydromorphone HCl (Dilaudid) 0.2 mg Q2H PRN IV .PAIN 1-5 Last administered on 01/22/19at 16:08; Admin Dose 0.2 MG; Start 01/21/19 at 12:00 Hydromorphone HCl (Dilaudid) 0.4 mg Q2H PRN IV .PAIN 6-10 Last administered on 01/28/19at 05:56; Admin Dose 0.4 MG; Start 01/21/19 at 12:00 Acetaminophen/ Hydrocodone Bitart ([place] (5/325)) 1 tab Q4H PRN PO .PAIN 4-6 Last administered on 01/25/19at 08:34; Admin Dose 1 TAB; Start 01/21/19 at 12:00 Diphenhydramine HCl (Benadryl) 25 mg Q4H PRN IV .PRURITUS; Start 01/21/19 at 12:00 Nalbuphine HCl (Nubain) 10 mg Q4H PRN IV .PRURITUS; Start 01/21/19 at 12:00 Ondansetron HCl (Zofran Inj) 4 mg Q6H PRN IV .NAUSEA/VOMITING Last administered on 01/22/19at 23:48; Admin Dose 4 MG; Start 01/21/19 at 12:00 Trimethobenzamide HCl (Tigan) 200 mg Q6H PRN IM .NAUSEA/VOMITING; Start 01/21/19 at 12:00 Zolpidem Tartrate (Ambien) 5 mg HS MAY REPEAT X 1 PRN PO .INSOMNIA; Start 01/21/19 at 12:00 Naloxone HCl (Narcan) 0.2 mg Q2M PRN IV .RESP RATE; Start 01/21/19 at 12:00 Hydralazine HCl (Apresoline) 10 mg Q4H PRN IV >150/95 Last administered on 01/24/19 05:34; Admin Dose 10 MG; Start 01/21/19 at 14:00 Metoprolol Tartrate (Lopressor) 5 mg Q4H PRN IV HR>110 HOld SBP<100 Last administered on 01/25/19 05:11; Admin Dose 5 MG; Start 01/23/19 at 20:30 Piperacillin Sod/ Tazobactam Sod 100 ml @ 200 mls/hr Q8 IVPB Last administered on 01/30/19 05:01; Admin Dose 200 MLS/HR; Start 01/24/19 at 09:00 Metronidazole 100 ml @ 100 mls/hr Q8 IVPB Last administered on 01/30/19 05:45; Admin Dose 100 MLS/HR; Start 01/24/19 at 09:00 Atenolol (Tenormin) 25 mg BID PO Last administered on 01/30/19 09:35; Admin Dose 25 MG; Start 01/24/19 at 22:00 Levalbuterol (Xopenex Neb) 0.63 mg Q6H RESP THERAPY HHN Last administered on 01/30/19 07:51; Admin Dose 0.63 MG; Start 01/24/19 at 23:30 Enoxaparin Sodium (Lovenox) 95 mg DAILY RESP THERAPY SC Last administered on 11:06; Admin Dose 95 MG; Start 01/25/19 at 17:30 Acetaminophen (Tylenol Tab) 650 mg Q6H PRN PO MILD PAIN(1-3)OR ELEVATED TEMP Last administered on 01/29/19 23:29; Admin Dose 650 MG; Start 01/29/19 at 23:30 Al Hydrox/Mg Hydrox/Simethicone (Mag-Al Plus) 30 ml Q4H PRN PO GASTROINTESTINAL UPSET Last administered on 01/29/19 23:30; Admin Dose 30 ML; Start 01/29/19 at 23:30 ODELL PACHECO Jan 30, 2019 13:01
[2019-01-30] MEDS: ENOXAPARIN 100 MG/ML SYG SC SCH ×2 (13:16→21:18)
--- NOTE | 2019-01-30 13:58 | CONS ---
Assessment/Plan Assessment/Plan Hospital Course (Demo Recall) IMPRESSION: 1. Tachycardia, at this time sinus tachycardia in the setting of significant pain, fevers, status post surgery. NL EF by echo 60-65. ON had onset of AF with RVR 2. Possible congestive heart failure by chest x-ray with the patient having the onset of acute renal failure at this time. 3. Hypertension, mildly elevated. 4. Postoperative status post reversal colostomy. 5. Fevers postop. 6. Renal failure, acute.-improved now 7. History of colon carcinoma status post prior colectomy with colostomy. 8. Hypernatremia, improved 9. Hypomagnesemia-improved 10. Leukocytosis. Recc: -Tele -Continue PO BB and lovenox systemic anticoagulation with increase to both given now improved BP{ as welll as creatnine -s/p IVP of digoxin -Pain control -Continue abx's and f/u cx data -Follow volume status closely -Ongoing renal eval and follow-up Consultation Date/Type/Reason Admit Date/Time Jan 21, 2019 at 06:18 Initial Consult Date 01/23/19 Type of Consult Cardiology Reason for Consultation tachycardia Requesting Provider: ROSIE ROCHA Date/Time of Note DATE: 01/30/19 TIME: 13:54 Exam/Review of Systems Vital Signs Vitals Vital Signs Date Temp Pulse Resp B/P (MAP) Pulse Ox O2 O2 Flow FiO2 Time Delivery Rate 01/30/19 99 18 95 Nasal 3.0 13:26 Cannula 01/30/19 98.2 135/82 12:03 (99) 01/27/19 30 04:33 Intake and Output 01/29/19 01/29/19 01/30/19 1515:00 23:00 07:00 IntakeIntake Total 1200 ml 1000 ml OutputOutput Total 800 ml 1200 ml BalanceBalance 400 ml -200 ml Exam Exam Review of Systems: CONSTITUTIONAL: No fevers, chills. PULMONARY: No sob CARDIOVASCULAR: No chest pain/palpitations GASTROINTESTINAL: No nausea/vomiting. GENITOURINARY: No hematuria/dysuria. MUSCULOSKELETAL: No myagias/arthalgias. PSYCHIATRIC: The patient denies depression. NEUROLOGIC: No weakness Constitutional: alert Psych: no complaints Head: normocephalic ENMT: mucosa pink and moist Neck: supple, jvd Respiratory: diminished breath sounds (at bases/B) Cardiovascular: irregular rhythm Gastrointestinal: soft, non-tender, distended (mildly), other (covered by dressing) Musculoskeletal: muscle tone (normal) Extremities: edema (none) Neurological: other (No focal deficits) Labs Result Diagram: 01/30/19 1049 01/30/19 0517 Results 24hrs Laboratory Tests Test 01/30/19 05:17 01/30/19 10:49 Sodium Level 135 Potassium Level 3.2 L Chloride Level 106 Carbon Dioxide Level 20 L Anion Gap 9 Blood Urea Nitrogen 24 H Creatinine 1.02 Est Glomerular Filtrat Rate mL/min > 60 Glucose Level 148 Calcium Level 8.1 L Total Bilirubin 0.4 Direct Bilirubin 0.00 Indirect Bilirubin 0.4 Aspartate Amino Transf (AST/SGOT) 34 Alanine Aminotransferase (ALT/SGPT) 25 Alkaline Phosphatase 83 Total Protein 5.4 L Albumin 2.5 L Globulin 2.90 Albumin/Globulin Ratio 0.86 White Blood Count 19.9 H Red Blood Count 3.99 L Hemoglobin 12.1 L Hematocrit 36.1 L Mean Corpuscular Volume 90.5 Mean Corpuscular Hemoglobin 30.3 Mean Corpuscular Hemoglobin Concent 33.5 Red Cell Distribution Width 14.1 Platelet Count 436 #H Mean Platelet Volume 11.8 H Immature Granulocytes % 2.400 H Neutrophils % 89.6 H Lymphocytes % 2.9 L Monocytes % 3.9 Eosinophils % 0.7 Basophils % 0.5 Nucleated Red Blood Cells % 0.0 Immature Granulocytes # 0.480 H Neutrophils # 17.9 H Lymphocytes # 0.6 L Monocytes # 0.8 Eosinophils # 0.1 Basophils # 0.1 Nucleated Red Blood Cells # 0.0 Medications Medications Current Medications Miscellaneous Information (* Miscellaneous Pharmacy Order) DURAMORPH: 3.5MG EPIDU... GIVEN NEURAXIAL XX ; Start 01/21/19 at 10:00 Hydromorphone HCl (Dilaudid) 0.2 mg Q2H PRN IV .PAIN 1-5 Last administered on 01/22/19at 16:08; Admin Dose 0.2 MG; Start 01/21/19 at 12:00 Hydromorphone HCl (Dilaudid) 0.4 mg Q2H PRN IV .PAIN 6-10 Last administered on 01/28/19at 05:56; Admin Dose 0.4 MG; Start 01/21/19 at 12:00 Acetaminophen/ Hydrocodone Bitart ([place] (5/325)) 1 tab Q4H PRN PO .PAIN 4-6 Last administered on 01/25/19 08:34; Admin Dose 1 TAB; Start 01/21/19 at 12:00 Diphenhydramine HCl (Benadryl) 25 mg Q4H PRN IV .PRURITUS; Start 01/21/19 at 12:00 Nalbuphine HCl (Nubain) 10 mg Q4H PRN IV .PRURITUS; Start 01/21/19 at 12:00 Ondansetron HCl (Zofran Inj) 4 mg Q6H PRN IV .NAUSEA/VOMITING Last administered on 01/22/19at 23:48; Admin Dose 4 MG; Start 01/21/19 at 12:00 Trimethobenzamide HCl (Tigan) 200 mg Q6H PRN IM .NAUSEA/VOMITING; Start 01/21/19 at 12:00 Zolpidem Tartrate (Ambien) 5 mg HS MAY REPEAT X 1 PRN PO .INSOMNIA; Start 01/21/19 at 12:00 Naloxone HCl (Narcan) 0.2 mg Q2M PRN IV .RESP RATE; Start 01/21/19 at 12:00 Hydralazine HCl (Apresoline) 10 mg Q4H PRN IV >150/95 Last administered on 01/24/19at 05:34; Admin Dose 10 MG; Start 01/21/19 at 14:00 Metoprolol Tartrate (Lopressor) 5 mg Q4H PRN IV HR>110 HOld SBP<100 Last administered on 01/25/19at 05:11; Admin Dose 5 MG; Start 01/23/19 at 20:30 Piperacillin Sod/ Tazobactam Sod 100 ml @ 200 mls/hr Q8 IVPB Last administered on 01/30/19 05:01; Admin Dose 200 MLS/HR; Start 01/24/19 at 09:00 Metronidazole 100 ml @ 100 mls/hr Q8 IVPB Last administered on 01/30/19at 05:45; Admin Dose 100 MLS/HR; Start 01/24/19 at 09:00 Atenolol (Tenormin) 25 mg BID PO Last administered on 4/17/19at 09:35; Admin Dose 25 MG; Start 01/24/19 at 22:00 Levalbuterol (Xopenex Neb) 0.63 mg Q6H RESP THERAPY HHN Last administered on 01/30/19 13:25; Admin Dose 0.63 MG; Start 01/24/19 at 23:30 Enoxaparin Sodium (Lovenox) 95 mg DAILY RESP THERAPY SC Last administered on 01/30/19 13:16; Admin Dose 95 MG; Start 01/25/19 at 17:30 Acetaminophen (Tylenol Tab) 650 mg Q6H PRN PO MILD PAIN(1-3)OR ELEVATED TEMP Last administered on 01/29/19at 23:29; Admin Dose 650 MG; Start 01/29/19 at 23:30 Al Hydrox/Mg Hydrox/Simethicone (Mag-Al Plus) 30 ml Q4H PRN PO GASTROINTESTINAL UPSET Last administered on 01/29/19 23:30; Admin Dose 30 ML; Start 01/29/19 at 23:30 EUGENE ANDERSON Jan 30, 2019 13:58
--- NOTE | 2019-01-30 16:32 | CONS ---
Assessment/Plan Assessment/Plan Hospital Course (Demo Recall) 1. Sepsis 2/2 to intra-abdominal infection vs. PNA based on recent CT -S/p open Reagan reversal and colorectal low pelvic anastomosis, segmental partial colectomy, and open incarcerated incisional and parastomal hernia repairs with mesh by Dr. Art on 01/21/2019. Continue Clarinda and Dilaudid as needed for pain and Zofran as needed for nausea. -Stage III sigmoid colon cancer, status post surgery and chemo in 2018. -Acute kidney injury on chronic kidney disease, monitor urine output BUN and creatinine. -Acute on chronic diastolic CHF -Atrial fibrillation. -Obstructive sleep apnea -History of hypertension -History of left upper extremity DVT R: victor cx lactic acid wound picts consider CT guided drainage Vanco/Merrem/fucon HIV MRSA screen will follow closely with you. Consultation Date/Type/Reason Admit Date/Time Jan 21, 2019 at 06:18 Date of Consultation: Jan 30, 2019 Type of Consult ID Reason for Consultation ABX RECS Requesting Provider: ODELL PACHECO Date/Time of Note DATE: 01/30/19 TIME: 16:22 cct2.5h Hx of Present Illness Mr. Kelly is a pleasant 59 yo male found to have colon CA on screening colonoscopy. He is s/p open Oliva reversal and low pelvic anastamosis, segmental partial colectomy as well as incarcerated incisional+ parastomal hernia repairs. Post op he has been noted to have occasional low grade temps as well as progressive leukocytosis. He has been on Zosyn/Flagyl since 01.24.19 per emr. Interestingly he had an admission in January of 2018 for HCAP and skin and soft tissue infection of the wound of abd wall due to MRSA.. 01.28.19 CT revealed: 1. New large amount of upper abdominal pneumoperitoneum is noted. Correlation with recent surgical history as well as patient's symptoms recommended. 2. Status post left mid abdominal colostomy with no evidence of hernia or obstruction. 3. Few loops of bowel in the mid and right abdomen which appear mildly dilated with air-fluid level without transitional point likely suggestive of ileus. No evidence of high-grade bowel obstruction. 4. Progression of diffuse moderate size ascites with question of peritonitis. 5. Left lower quadrant fluid with foci of air could be part of the diffuse ascites with air likely due to recent postsurgical changes. Abscess is in the differential diagnosis considering mild enhancement of the adjacent peritoneum. 6. Development of small right and trace left-sided pleural effusion. 7. Worsening of the right lung base infiltrate. 8. Persistent moderate size pericardial effusion. 9. Postsurgical changes of the anterior midabdominal wall now with moderate size underlying subcutaneous free air. Constitutional: chills, diaphoresis Eyes: no complaints ENT: no complaints Respiratory: no complaints Cardiovascular: no complaints Gastrointestinal: pain Genitourinary: no complaints Musculoskeletal: no complaints Skin: no complaints Neurologic: no complaints Endocrine: no complaints Lymphatic: no complaints Psychological: no complaints, nl mood/affect Past Medical History Home Meds Active Scripts Carvedilol* (Carvedilol*) 25 Mg Tablet, 25 MG PO BID for 30 Days, TAB Prov:ODELL PACHECO 01/15/18 Furosemide* (Furosemide*) 20 Mg Tablet, 20 MG PO DAILY for 30 Days, TAB Prov:ODELL PACHECO 01/15/18 Reported Medications Apixaban* (Eliquis*) 5 Mg Tablet, 5 MG PO BID, TAB 11/02/18 Losartan Potassium* (Losartan Potassium*) 100 Mg Tablet, 100 MG PO DAILY, TAB 11/02/18 Nifedipine* (Nifedipine ER*) 60 Mg Tablet.sa, 60 MG PO BID, TAB.SA 11/02/18 Atorvastatin Calcium* (Atorvastatin Calcium*) 20 Mg Tablet, 20 MG PO QHS, #30 TAB 01/07/18 Medications Current Medications Miscellaneous Information (* Miscellaneous Pharmacy Order) DURAMORPH: 3.5MG EPIDU... GIVEN NEURAXIAL XX ; Start 01/21/19 at 10:00 Hydromorphone HCl (Dilaudid) 0.2 mg Q2H PRN IV .PAIN 1-5 Last administered on 01/22/19at 16:08; Admin Dose 0.2 MG; Start 01/21/19 at 12:00 Hydromorphone HCl (Dilaudid) 0.4 mg Q2H PRN IV .PAIN 6-10 Last administered on 01/28/19at 05:56; Admin Dose 0.4 MG; Start 01/21/19 at 12:00 Acetaminophen/ Hydrocodone Bitart ([place] (5/325)) 1 tab Q4H PRN PO .PAIN 4-6 Last administered on 01/25/19 08:34; Admin Dose 1 TAB; Start 01/21/19 at 12:00 Diphenhydramine HCl (Benadryl) 25 mg Q4H PRN IV .PRURITUS; Start 01/21/19 at 12:00 Nalbuphine HCl (Nubain) 10 mg Q4H PRN IV .PRURITUS; Start 01/21/19 at 12:00 Ondansetron HCl (Zofran Inj) 4 mg Q6H PRN IV .NAUSEA/VOMITING Last administered on 01/22/19 23:48; Admin Dose 4 MG; Start 01/21/19 at 12:00 Trimethobenzamide HCl (Tigan) 200 mg Q6H PRN IM .NAUSEA/VOMITING; Start 01/21/19 at 12:00 Zolpidem Tartrate (Ambien) 5 mg HS MAY REPEAT X 1 PRN PO .INSOMNIA; Start 01/21/19 at 12:00 Naloxone HCl (Narcan) 0.2 mg Q2M PRN IV .RESP RATE; Start 01/21/19 at 12:00 Hydralazine HCl (Apresoline) 10 mg Q4H PRN IV >150/95 Last administered on 01/24/19 05:34; Admin Dose 10 MG; Start 01/21/19 at 14:00 Metoprolol Tartrate (Lopressor) 5 mg Q4H PRN IV HR>110 HOld SBP<100 Last administered on 01/25/19at 05:11; Admin Dose 5 MG; Start 01/23/19 at 20:30 Piperacillin Sod/ Tazobactam Sod 100 ml @ 200 mls/hr Q8 IVPB Last administered on 01/30/19 14:22; Admin Dose 200 MLS/HR; Start 01/24/19 at 09:00 Metronidazole 100 ml @ 100 mls/hr Q8 IVPB Last administered on 01/30/19at 15:22; Admin Dose 100 MLS/HR; Start 01/24/19 at 09:00 Levalbuterol (Xopenex Neb) 0.63 mg Q6H RESP THERAPY HHN Last administered on 01/30/19 13:25; Admin Dose 0.63 MG; Start 01/24/19 at 23:30 Acetaminophen (Tylenol Tab) 650 mg Q6H PRN PO MILD PAIN(1-3)OR ELEVATED TEMP Last administered on 01/29/19at 23:29; Admin Dose 650 MG; Start 01/29/19 at 23:30 Al Hydrox/Mg Hydrox/Simethicone (Mag-Al Plus) 30 ml Q4H PRN PO GASTROINTESTINAL UPSET Last administered on 01/29/19at 23:30; Admin Dose 30 ML; Start 01/29/19 at 23:30 Atenolol (Tenormin) 50 mg BID PO ; Start 01/30/19 at 21:00 Enoxaparin Sodium (Lovenox) 95 mg BID SC ; Start 01/30/19 at 21:00 Allergies: Coded Allergies: No Known Allergy (Unverified , 01/30/19) Past Surgical History Past Surgical Hx: other Social History Smoking Status: Never smoker Exam/Review of Systems Exam Vitals Vital Signs Date Temp Pulse Resp B/P (MAP) Pulse Ox O2 O2 Flow FiO2 Time Delivery Rate 01/30/19 98.2 85 20 134/82 97 Nasal 15:52 (99) Cannula 01/30/19 3.0 13:26 01/27/19 30 04:33 Intake and Output 01/29/19 01/29/19 01/30/19 1515:00 23:00 07:00 IntakeIntake Total 1200 ml 1000 ml OutputOutput Total 800 ml 1200 ml BalanceBalance 400 ml -200 ml Constitutional: alert, oriented, well developed Psych: no complaints, nl mood/affect Head: normocephalic, atraumatic Eyes: nl conjunctiva, EOMI, nl lids, nl sclera, PERRL ENMT: nl external ears & nose, nl lips & teeth, nl nasal mucosa & septum Respiratory: clear to auscultation, normal air movement, other (decreased bs bases) Cardiovascular: regular rate and rhythm Gastrointestinal: ascites, distended, firm Neurological: BALLROOM DANCER II-XII intact Results Result Diagram: 01/30/19 1049 01/30/19 0517 Results 24hrs Laboratory Tests Test 01/30/19 05:17 01/30/19 10:49 Sodium Level 135 Potassium Level 3.2 L Chloride Level 106 Carbon Dioxide Level 20 L Anion Gap 9 Blood Urea Nitrogen 24 H Creatinine 1.02 Est Glomerular Filtrat Rate mL/min > 60 Glucose Level 148 Calcium Level 8.1 L Total Bilirubin 0.4 Direct Bilirubin 0.00 Indirect Bilirubin 0.4 Aspartate Amino Transf (AST/SGOT) 34 Alanine Aminotransferase (ALT/SGPT) 25 Alkaline Phosphatase 83 Total Protein 5.4 L Albumin 2.5 L Globulin 2.90 Albumin/Globulin Ratio 0.86 White Blood Count 19.9 H Red Blood Count 3.99 L Hemoglobin 12.1 L Hematocrit 36.1 L Mean Corpuscular Volume 90.5 Mean Corpuscular Hemoglobin 30.3 Mean Corpuscular Hemoglobin Concent 33.5 Red Cell Distribution Width 14.1 Platelet Count 436 #H Mean Platelet Volume 11.8 H Immature Granulocytes % 2.400 H Neutrophils % 89.6 H Lymphocytes % 2.9 L Monocytes % 3.9 Eosinophils % 0.7 Basophils % 0.5 Nucleated Red Blood Cells % 0.0 Immature Granulocytes # 0.480 H Neutrophils # 17.9 H Lymphocytes # 0.6 L Monocytes # 0.8 Eosinophils # 0.1 Basophils # 0.1 Nucleated Red Blood Cells # 0.0 Medications Medication Current Medications Miscellaneous Information (* Miscellaneous Pharmacy Order) DURAMORPH: 3.5MG EPIDU... GIVEN NEURAXIAL XX ; Start 01/21/19 at 10:00 Hydromorphone HCl (Dilaudid) 0.2 mg Q2H PRN IV .PAIN 1-5 Last administered on 01/22/19at 16:08; Admin Dose 0.2 MG; Start 01/21/19 at 12:00 Hydromorphone HCl (Dilaudid) 0.4 mg Q2H PRN IV .PAIN 6-10 Last administered on 01/28/19at 05:56; Admin Dose 0.4 MG; Start 01/21/19 at 12:00 Acetaminophen/ Hydrocodone Bitart ([place] (5/325)) 1 tab Q4H PRN PO .PAIN 4-6 Last administered on 01/25/19at 08:34; Admin Dose 1 TAB; Start 01/21/19 at 12:00 Diphenhydramine HCl (Benadryl) 25 mg Q4H PRN IV .PRURITUS; Start 01/21/19 at 12:00 Nalbuphine HCl (Nubain) 10 mg Q4H PRN IV .PRURITUS; Start 01/21/19 at 12:00 Ondansetron HCl (Zofran Inj) 4 mg Q6H PRN IV .NAUSEA/VOMITING Last administered on 01/22/19 23:48; Admin Dose 4 MG; Start 01/21/19 at 12:00 Trimethobenzamide HCl (Tigan) 200 mg Q6H PRN IM .NAUSEA/VOMITING; Start 01/21/19 at 12:00 Zolpidem Tartrate (Ambien) 5 mg HS MAY REPEAT X 1 PRN PO .INSOMNIA; Start 01/21/19 at 12:00 Naloxone HCl (Narcan) 0.2 mg Q2M PRN IV .RESP RATE; Start 01/21/19 at 12:00 Hydralazine HCl (Apresoline) 10 mg Q4H PRN IV >150/95 Last administered on 01/24/19 05:34; Admin Dose 10 MG; Start 01/21/19 at 14:00 Metoprolol Tartrate (Lopressor) 5 mg Q4H PRN IV HR>110 HOld SBP<100 Last administered on 01/25/19 05:11; Admin Dose 5 MG; Start 01/23/19 at 20:30 Piperacillin Sod/ Tazobactam Sod 100 ml @ 200 mls/hr Q8 IVPB Last administered on 01/30/19 14:22; Admin Dose 200 MLS/HR; Start 01/24/19 at 09:00 Metronidazole 100 ml @ 100 mls/hr Q8 IVPB Last administered on 01/30/19 15:22; Admin Dose 100 MLS/HR; Start 01/24/19 at 09:00 Levalbuterol (Xopenex Neb) 0.63 mg Q6H RESP THERAPY HHN Last administered on 01/30/19 13:25; Admin Dose 0.63 MG; Start 01/24/19 at 23:30 Acetaminophen (Tylenol Tab) 650 mg Q6H PRN PO MILD PAIN(1-3)OR ELEVATED TEMP Last administered on 01/29/19 23:29; Admin Dose 650 MG; Start 01/29/19 at 23:30 Al Hydrox/Mg Hydrox/Simethicone (Mag-Al Plus) 30 ml Q4H PRN PO GASTROINTESTINAL UPSET Last administered on 01/29/19 23:30; Admin Dose 30 ML; Start 4/16/19 at 23:30 Atenolol (Tenormin) 50 mg BID PO ; Start 01/30/19 at 21:00 Enoxaparin Sodium (Lovenox) 95 mg BID SC ; Start 01/30/19 at 21:00 KURT SEO MD Jan 30, 2019 16:32
[2019-01-30] MEDS: AL HYDROX/MG HYDROX/SIMETH 30 ML CUP PO PRN (18:39)
[2019-01-30] MEDS ORDERED: VANCOMYCIN IV PER PHARMACY XX SCH (20:30)
[2019-01-30] MEDS: ATENOLOL 50 MG TAB PO SCH (21:12)
[2019-01-30] MEDS: MEROPENEM 500MG/50 ML (PMX) 50 ML IVPB SCH (21:58)
[2019-01-30] MEDS: FLUCONAZOLE 100 MG/50 ML (PMX) 50 ML IVPB SCH (21:58)
[2019-01-30] MEDS ORDERED: VANCOMYCIN HCL 2 GM in SOD CHLORIDE 0.9% 500 ML IVPB ONE (23:00)
[2019-01-31] VITALS (11 sets, daily range): BP systolic 113–137; BP diastolic 75–87; PULSE 80–99; RESP 18–20
[2019-01-31] MEDS: LEVALBUTEROL (NEB) 0.63 MG/3 ML AMP HHN SCH ×4 (02:35→19:34)
--- NOTE | 2019-01-31 08:03 | PN ---
Date/Time of Note Date/Time of Note DATE: 01/31/19 TIME: 08:00 Assessment/Plan VTE Prophylaxis Risk score (from [facility] [place]0 risk: 3 SCD applied (from Ns): Yes Pharmacological prophylaxis: other Lines/Catheters IV Catheter Type (from [facility]): Saline Lock Urinary Cath still in place: No Assessment/Plan Assessment/Plan s/p reversal of colostomy s/p colon cancer and chemo leukocytosis but no fevers with multiple possible etiologies including diarrhea, pulmonary, UTI, and peritonitis however clinical exam of the abdomen not consistent with peritonitis will treat with abx initially but if no significant improvement may need to place a drain in the abdomen, this needs to be weighed against the risk of causing peritonitis with a drain placement. Result Diagram: 01/31/19 0509 01/31/19 0509 Results 24hrs Laboratory Tests Test 01/30/19 10:49 01/30/19 16:54 01/30/19 19:00 01/31/19 05:09 White Blood Count 19.9 H 18.0 H Red Blood Count 3.99 L 3.85 L Hemoglobin 12.1 L 11.6 L Hematocrit 36.1 L 35.1 L Mean Corpuscular 90.5 91.2 Volume Mean Corpuscular 30.3 30.1 Hemoglobin Mean Corpuscular 33.5 33.0 Hemoglobin Concen t Red Cell 14.1 14.1 Distribution Width Platelet Count 436 #H 417 H Mean Platelet 11.8 H 11.5 H Volume Immature 2.400 H 2.400 H Granulocytes % Neutrophils % 89.6 H 88.7 H Lymphocytes % 2.9 L 2.8 L Monocytes % 3.9 4.9 Eosinophils % 0.7 0.9 Basophils % 0.5 0.3 Nucleated Red 0.0 0.0 Blood Cells % Immature 0.480 H 0.440 H Granulocytes # Neutrophils # 17.9 H 15.9 H Lymphocytes # 0.6 L 0.5 L Monocytes # 0.8 0.9 Eosinophils # 0.1 0.2 Basophils # 0.1 0.1 Nucleated Red 0.0 0.0 Blood Cells # Lactic Acid Level 2.0 Urine Color YELLOW Urine Clarity SLIGHTLY CLOUDY A Urine pH 5.0 Urine Specific 1.020 [place] Urine Ketones NEGATIVE Urine Nitrite NEGATIVE Urine Bilirubin NEGATIVE Urine NEGATIVE Urobilinogen Urine Leukocyte 3+ H Esterase Urine Microscopic 2 RBC Urine Microscopic 104 H WBC Urine Bacteria FEW A Urine Hemoglobin 1+ H Urine Glucose NEGATIVE Urine Total NEGATIVE Protein Sodium Level 136 Potassium Level 3.8 Chloride Level 108 Carbon Dioxide 22 Level Anion Gap 6 Blood Urea 18 Nitrogen Creatinine 0.95 Est Glomerular > 60 Filtrat Rate mL/min Glucose Level 170 Calcium Level 8.2 L Total Bilirubin 0.3 Direct Bilirubin 0.00 Indirect 0.3 Bilirubin Aspartate Amino 27 Transf (AST/SGOT) Alanine 19 Aminotransferase (ALT/SGPT) Alkaline 82 Phosphatase Total Protein 5.3 L Albumin 2.6 L Globulin 2.70 Albumin/Globulin 0.96 Ratio Subjective 24 Hr Interval Summary Free Text/Dictation still having diarrhea also leukocytosis with multiple possible sources including pulmonary, UTI, and question of peritonitis Exam/Review of Systems Exam Vitals Vital Signs Date Temp Pulse Resp B/P (MAP) Pulse Ox O2 O2 Flow FiO2 Time Delivery Rate 01/31/19 98.3 91 20 132/79 96 07:38 (96) 01/31/19 3.0 02:35 01/31/19 Nasal 02:35 Cannula Intake and Output 01/30/19 01/30/19 01/31/19 1414:59 22:59 06:59 IntakeIntake Total 100 ml 1750 ml 1300 ml OutputOutput Total 400 ml BalanceBalance 100 ml 1350 ml 1300 ml Exam open wound with packing no peritoneal signs but diffuse pain Results Results 24hrs Laboratory Tests Test 01/30/19 10:49 01/30/19 16:54 01/30/19 19:00 01/31/19 05:09 White Blood Count 19.9 H 18.0 H Red Blood Count 3.99 L 3.85 L Hemoglobin 12.1 L 11.6 L Hematocrit 36.1 L 35.1 L Mean Corpuscular 90.5 91.2 Volume Mean Corpuscular 30.3 30.1 Hemoglobin Mean Corpuscular 33.5 33.0 Hemoglobin Concen t Red Cell 14.1 14.1 Distribution Width Platelet Count 436 #H 417 H Mean Platelet 11.8 H 11.5 H Volume Immature 2.400 H 2.400 H Granulocytes % Neutrophils % 89.6 H 88.7 H Lymphocytes % 2.9 L 2.8 L Monocytes % 3.9 4.9 Eosinophils % 0.7 0.9 Basophils % 0.5 0.3 Nucleated Red 0.0 0.0 Blood Cells % Immature 0.480 H 0.440 H Granulocytes # Neutrophils # 17.9 H 15.9 H Lymphocytes # 0.6 L 0.5 L Monocytes # 0.8 0.9 Eosinophils # 0.1 0.2 Basophils # 0.1 0.1 Nucleated Red 0.0 0.0 Blood Cells # Lactic Acid Level 2.0 Urine Color YELLOW Urine Clarity SLIGHTLY CLOUDY A Urine pH 5.0 Urine Specific 1.020 [place] Urine Ketones NEGATIVE Urine Nitrite NEGATIVE Urine Bilirubin NEGATIVE Urine NEGATIVE Urobilinogen Urine Leukocyte 3+ H Esterase Urine Microscopic 2 RBC Urine Microscopic 104 H WBC Urine Bacteria FEW A Urine Hemoglobin 1+ H Urine Glucose NEGATIVE Urine Total NEGATIVE Protein Sodium Level 136 Potassium Level 3.8 Chloride Level 108 Carbon Dioxide 22 Level Anion Gap 6 Blood Urea 18 Nitrogen Creatinine 0.95 Est Glomerular > 60 Filtrat Rate mL/min Glucose Level 170 Calcium Level 8.2 L Total Bilirubin 0.3 Direct Bilirubin 0.00 Indirect 0.3 Bilirubin Aspartate Amino 27 Transf (AST/SGOT) Alanine 19 Aminotransferase (ALT/SGPT) Alkaline 82 Phosphatase Total Protein 5.3 L Albumin 2.6 L Globulin 2.70 Albumin/Globulin 0.96 Ratio Medications Medication Current Medications Miscellaneous Information (* Miscellaneous Pharmacy Order) DURAMORPH: 3.5MG EPIDU... GIVEN NEURAXIAL XX ; Start 01/21/19 at 10:00 Hydromorphone HCl (Dilaudid) 0.2 mg Q2H PRN IV .PAIN 1-5 Last administered on 01/22/19at 16:08; Admin Dose 0.2 MG; Start 01/21/19 at 12:00 Hydromorphone HCl (Dilaudid) 0.4 mg Q2H PRN IV .PAIN 6-10 Last administered on 01/28/19at 05:56; Admin Dose 0.4 MG; Start 01/21/19 at 12:00 Acetaminophen/ Hydrocodone Bitart ([place] (5/325)) 1 tab Q4H PRN PO .PAIN 4-6 Last administered on 01/25/19at 08:34; Admin Dose 1 TAB; Start 01/21/19 at 12:00 Diphenhydramine HCl (Benadryl) 25 mg Q4H PRN IV .PRURITUS; Start 01/21/19 at 12:00 Nalbuphine HCl (Nubain) 10 mg Q4H PRN IV .PRURITUS; Start 01/21/19 at 12:00 Ondansetron HCl (Zofran Inj) 4 mg Q6H PRN IV .NAUSEA/VOMITING Last administered on 01/22/19 23:48; Admin Dose 4 MG; Start 01/21/19 at 12:00 Trimethobenzamide HCl (Tigan) 200 mg Q6H PRN IM .NAUSEA/VOMITING; Start 01/21/19 at 12:00 Zolpidem Tartrate (Ambien) 5 mg HS MAY REPEAT X 1 PRN PO .INSOMNIA; Start 01/21/19 at 12:00 Naloxone HCl (Narcan) 0.2 mg Q2M PRN IV .RESP RATE; Start 01/21/19 at 12:00 Hydralazine HCl (Apresoline) 10 mg Q4H PRN IV >150/95 Last administered on 01/24/19 05:34; Admin Dose 10 MG; Start 01/21/19 at 14:00 Metoprolol Tartrate (Lopressor) 5 mg Q4H PRN IV HR>110 HOld SBP<100 Last administered on 01/25/19 05:11; Admin Dose 5 MG; Start 01/23/19 at 20:30 Levalbuterol (Xopenex Neb) 0.63 mg Q6H RESP THERAPY HHN Last administered on 01/31/19 02:35; Admin Dose 0.63 MG; Start 01/24/19 at 23:30 Acetaminophen (Tylenol Tab) 650 mg Q6H PRN PO MILD PAIN(1-3)OR ELEVATED TEMP Last administered on 01/29/19 23:29; Admin Dose 650 MG; Start 01/29/19 at 23:30 Al Hydrox/Mg Hydrox/Simethicone (Mag-Al Plus) 30 ml Q4H PRN PO GASTROINTESTINAL UPSET Last administered on 01/30/19 18:39; Admin Dose 30 ML; Start 01/29/19 at 23:30 Atenolol (Tenormin) 50 mg BID PO Last administered on 01/30/19 21:12; Admin Dose 50 MG; Start 01/30/19 at 21:00 Enoxaparin Sodium (Lovenox) 95 mg BID SC Last administered on 01/30/19 21:18; Admin Dose 95 MG; Start 01/30/19 at 21:00 Vancomycin HCl (Vanco Iv Per Pharmacy) VANCOMYCIN PER PHARMACY PER PROTOCOL XX ; Start 01/30/19 at 20:30 Meropenem/Sodium Chloride 50 ml @ 100 mls/hr Q12 IVPB Last administered on 01/30/19at 21:58; Admin Dose 100 MLS/HR; Start 01/30/19 at 21:00 Fluconazole/ Sodium Chloride 50 ml @ 50 mls/hr Q24H IVPB Last administered on 01/30/19at 21:58; Admin Dose 50 MLS/HR; Start 01/30/19 at 20:30 Vancomycin HCl 1.5 gm/Sodium Chloride 250 ml @ 83.333 mls/ hr Q12H IVPB ; Start 01/31/19 at 11:00 Ann FERNANDEZ Jan 31, 2019 08:03
[2019-01-31] MEDS ORDERED: POTASSIUM CHLORIDE (SR) 20 MEQ TAB PO STA (08:31)
--- NOTE | 2019-01-31 08:54 | PN ---
DATE: 01/31/2019 SUBJECTIVE: The patient is clinically improving, less shortness of breath. No other events noted ov ernight. OBJECTIVE: VITAL SIGNS: Blood pressure is 132/79, pulse is 89, respirations 20, temperature 98.3. HEENT: Head is normocephalic. NECK: Supple. HEART: Regular rate. LUNGS: Show diminished breath sounds at the base. ABDOMEN: Soft, nontender to palpation. No rebound or guarding. EXTREMITIES: Negative for clubbing, cyanosis. Positive edema. DERMATOLOGIC: No rashes. MUSCULOSKELETAL: No joint effusion. NEUROLOGIC: No change in exam. MEDICATIONS: Reviewed. LABORATORY DATA: Reviewed. ASSESSMENT AND PLAN: 1. Nonoliguric acute kidney injury, etiology is secondary to acute tubular necrosis. Renal function is improved. Continue to monitor. 2. Hypokalemia. Continue to monitor and replete as needed. 3. Volume overload. Continue intermittent diuretic therapy. 4. Acute respiratory failure secondary to pneumonia, bronchitis, pulmonary congestion. The patient is clinically improving. Continue medical management, continue antibiotic therapy. 5. Tachyarrhythmia. Etiology is multifactorial. Continue to monitor. 6. Metabolic acidosis secondary to acute kidney injury, improved. 7. Systemic inflammatory response syndrome. 8. History of colon cancer, status post Reagan reversal, continue to monitor. Follow up with gene ral surgery. 9. Hypertension. Continue current blood pressure regimen. 10. History of deep vein thrombosis. 11. Hypernatremia, improved. Dictated By: SUSAN HERNANDEZ/NTS Conf#: [id number] DID#: [id number] CC: ANDREY ZHENG MD; JACOB FERNANDEZ MD;*EndCC*
[2019-01-31] MEDS ORDERED: FUROSEMIDE 20 MG INJ IV ONE ×2 (09:00→12:00)
[2019-01-31] MEDS: ATENOLOL 50 MG TAB PO SCH ×2 (09:54→21:18)
[2019-01-31] MEDS: ENOXAPARIN 100 MG/ML SYG SC SCH ×2 (10:03→21:18)
[2019-01-31] MEDS: MEROPENEM 500MG/50 ML (PMX) 50 ML IVPB SCH ×2 (10:05→21:18)
[2019-01-31] MEDS: VANCOMYCIN HCL 1.5 GM in SOD CHLORIDE 0.9% 250 ML IVPB SCH ×2 (10:57→23:11)
[2019-01-31] MEDS ORDERED: VANCOMYCIN HCL 1.25 GM in SOD CHLORIDE 0.9% 250 ML IVPB SCH (11:00)
--- NOTE | 2019-01-31 11:51 | CONS ---
Assessment/Plan Assessment/Plan Hospital Course (Demo Recall) IMPRESSION: 1. Tachycardia, at this time sinus tachycardia in the setting of significant pain, fevers, status post surgery. NL EF by echo 60-65. ON had onset of AF with RVR 2. Possible congestive heart failure by chest x-ray with the patient having the onset of acute renal failure at this time. 3. Hypertension, mildly elevated. 4. Postoperative status post reversal colostomy. 5. Fevers postop. 6. Renal failure, acute.-improved now 7. History of colon carcinoma status post prior colectomy with colostomy. 8. Hypernatremia, improved 9. Hypomagnesemia-improved 10. Leukocytosis. Recc: -Tele -Continue PO BB and lovenox systemic anticoagulation -s/p IVP of digoxin -Pain control -Continue abx's and f/u cx data -Follow volume status closely and will give dose of lasix given trace LE edema -Ongoing renal eval and follow-up Consultation Date/Type/Reason Admit Date/Time Jan 21, 2019 at 06:18 Initial Consult Date 01/23/19 Type of Consult Cardiology Reason for Consultation tachycardia Requesting Provider: ODELL PACHECO Date/Time of Note DATE: 01/31/19 TIME: 11:49 Exam/Review of Systems Vital Signs Vitals Vital Signs Date Temp Pulse Resp B/P (MAP) Pulse Ox O2 O2 Flow FiO2 Time Delivery Rate 01/31/19 97.4 80 18 113/79 95 11:40 (90) 01/31/19 Nasal 3.0 08:50 Cannula Intake and Output 01/30/19 01/30/19 01/31/19 1414:59 22:59 06:59 IntakeIntake Total 100 ml 1750 ml 1300 ml OutputOutput Total 400 ml BalanceBalance 100 ml 1350 ml 1300 ml Exam Exam Review of Systems: CONSTITUTIONAL: No fevers, chills. PULMONARY: No sob CARDIOVASCULAR: No chest pain/palpitations GASTROINTESTINAL: No nausea/vomiting. GENITOURINARY: No hematuria/dysuria. MUSCULOSKELETAL: No myagias/arthalgias. PSYCHIATRIC: The patient denies depression. NEUROLOGIC: No weakness Constitutional: alert Psych: no complaints Head: normocephalic ENMT: mucosa pink and moist Neck: supple, jvd (9 cm watyer) Respiratory: diminished breath sounds (at basdes/B) Cardiovascular: regular rate and rhythm Gastrointestinal: distended, other (covered by dressing) Musculoskeletal: muscle tone Extremities: edema (none) Neurological: other (No focal deficits) Labs Result Diagram: 01/31/19 0509 01/31/19 0509 Results 24hrs Laboratory Tests Test 01/30/19 16:54 01/30/19 19:00 01/31/19 05:09 Lactic Acid Level 2.0 Urine Color YELLOW Urine Clarity SLIGHTLY CLOUDY A Urine pH 5.0 Urine Specific [place] 1.020 Urine Ketones NEGATIVE Urine Nitrite NEGATIVE Urine Bilirubin NEGATIVE Urine Urobilinogen NEGATIVE Urine Leukocyte Esterase 3+ H Urine Microscopic RBC 2 Urine Microscopic WBC 104 H Urine Bacteria FEW A Urine Hemoglobin 1+ H Urine Glucose NEGATIVE Urine Total Protein NEGATIVE White Blood Count 18.0 H Red Blood Count 3.85 L Hemoglobin 11.6 L Hematocrit 35.1 L Mean Corpuscular Volume 91.2 Mean Corpuscular Hemoglobin 30.1 Mean Corpuscular 33.0 Hemoglobin Concent Red Cell Distribution Width 14.1 Platelet Count 417 H Mean Platelet Volume 11.5 H Immature Granulocytes % 2.400 H Neutrophils % 88.7 H Lymphocytes % 2.8 L Monocytes % 4.9 Eosinophils % 0.9 Basophils % 0.3 Nucleated Red Blood Cells % 0.0 Immature Granulocytes # 0.440 H Neutrophils # 15.9 H Lymphocytes # 0.5 L Monocytes # 0.9 Eosinophils # 0.2 Basophils # 0.1 Nucleated Red Blood Cells # 0.0 Sodium Level 136 Potassium Level 3.8 Chloride Level 108 Carbon Dioxide Level 22 Anion Gap 6 Blood Urea Nitrogen 18 Creatinine 0.95 Est Glomerular Filtrat > 60 Rate mL/min Glucose Level 170 Calcium Level 8.2 L Total Bilirubin 0.3 Direct Bilirubin 0.00 Indirect Bilirubin 0.3 Aspartate Amino 27 Transf (AST/SGOT) Alanine 19 Aminotransferase (ALT/SGPT) Alkaline Phosphatase 82 Total Protein 5.3 L Albumin 2.6 L Globulin 2.70 Albumin/Globulin Ratio 0.96 Medications Medications Current Medications Miscellaneous Information (* Miscellaneous Pharmacy Order) DURAMORPH: 3.5MG EPIDU... GIVEN NEURAXIAL XX ; Start 01/21/19 at 10:00 Hydromorphone HCl (Dilaudid) 0.2 mg Q2H PRN IV .PAIN 1-5 Last administered on 4/9/19at 16:08; Admin Dose 0.2 MG; Start 01/21/19 at 12:00 Hydromorphone HCl (Dilaudid) 0.4 mg Q2H PRN IV .PAIN 6-10 Last administered on 01/28/19 05:56; Admin Dose 0.4 MG; Start 01/21/19 at 12:00 Acetaminophen/ Hydrocodone Bitart ([place] (5/325)) 1 tab Q4H PRN PO .PAIN 4-6 Last administered on 01/25/19 08:34; Admin Dose 1 TAB; Start 01/21/19 at 12:00 Diphenhydramine HCl (Benadryl) 25 mg Q4H PRN IV .PRURITUS; Start 01/21/19 at 12:00 Nalbuphine HCl (Nubain) 10 mg Q4H PRN IV .PRURITUS; Start 01/21/19 at 12:00 Ondansetron HCl (Zofran Inj) 4 mg Q6H PRN IV .NAUSEA/VOMITING Last administered on 01/22/19 23:48; Admin Dose 4 MG; Start 01/21/19 at 12:00 Trimethobenzamide HCl (Tigan) 200 mg Q6H PRN IM .NAUSEA/VOMITING; Start 01/21/19 at 12:00 Zolpidem Tartrate (Ambien) 5 mg HS MAY REPEAT X 1 PRN PO .INSOMNIA; Start 01/21/19 at 12:00 Naloxone HCl (Narcan) 0.2 mg Q2M PRN IV .RESP RATE; Start 01/21/19 at 12:00 Hydralazine HCl (Apresoline) 10 mg Q4H PRN IV >150/95 Last administered on 01/24/19 05:34; Admin Dose 10 MG; Start 01/21/19 at 14:00 Metoprolol Tartrate (Lopressor) 5 mg Q4H PRN IV HR>110 HOld SBP<100 Last administered on 01/25/19 05:11; Admin Dose 5 MG; Start 01/23/19 at 20:30 Levalbuterol (Xopenex Neb) 0.63 mg Q6H RESP THERAPY HHN Last administered on 01/31/19 08:50; Admin Dose 0.63 MG; Start 01/24/19 at 23:30 Acetaminophen (Tylenol Tab) 650 mg Q6H PRN PO MILD PAIN(1-3)OR ELEVATED TEMP Last administered on 01/29/19 23:29; Admin Dose 650 MG; Start 01/29/19 at 23:30 Al Hydrox/Mg Hydrox/Simethicone (Mag-Al Plus) 30 ml Q4H PRN PO GASTROINTESTINAL UPSET Last administered on 01/30/19 18:39; Admin Dose 30 ML; Start 01/29/19 at 23:30 Atenolol (Tenormin) 50 mg BID PO Last administered on 01/31/19 09:54; Admin Dose 50 MG; Start 01/30/19 at 21:00 Enoxaparin Sodium (Lovenox) 95 mg BID SC Last administered on 01/31/19 10:03; Admin Dose 95 MG; Start 01/30/19 at 21:00 Vancomycin HCl (Vanco Iv Per Pharmacy) VANCOMYCIN PER PHARMACY PER PROTOCOL XX ; Start 01/30/19 at 20:30 Meropenem/Sodium Chloride 50 ml @ 100 mls/hr Q12 IVPB Last administered on 01/31/19 10:05; Admin Dose 100 MLS/HR; Start 01/30/19 at 21:00 Fluconazole/ Sodium Chloride 50 ml @ 50 mls/hr Q24H IVPB Last administered on 01/30/19 21:58; Admin Dose 50 MLS/HR; Start 01/30/19 at 20:30 Vancomycin HCl 1.5 gm/Sodium Chloride 250 ml @ 83.333 mls/ hr Q12H IVPB Last administered on 01/31/19at 10:57; Admin Dose 83.333 MLS/HR; Start 01/31/19 at 11:00 EUGENE ANDERSON Jan 31, 2019 11:51
--- NOTE | 2019-01-31 14:41 | PN ---
Date/Time of Note Date/Time of Note DATE: 01/31/19 TIME: 14:32 Assessment/Plan VTE Prophylaxis Risk score (from Ns)>0 risk: 3 SCD applied (from Ns): Yes Pharmacological prophylaxis: NA/contraindicated Pharm contraindication: surgical contra Lines/Catheters IV C[facility] Type [facility]from [facility] [place] Urinary Cath still in place: No Assessment/Plan Hospital Course Patient was started on vancomycin and meropenem on Diflucan last night, persistent leukocytosis, abdominal distention and now with significant drainage from the surgical incision looks like a bowel leak. Dr. Art called. discussed with CATHERINE Diaz. Patient is awake alert continues on supplemental oxygen, remains hemodynamically stable, afebrile. Assessment/Plan -Increased leukocytosis patient is currently on Zosyn and Flagyl, CT of the abdomen and pelvis revealed moderate ascites, questionable peritonitis or abscess increased right lower lobe infiltrate. Dr. Vázquez is following in infection disease consultation. -Possible surgical wound infection, obtain wound cx. -Right lower lobe infiltrate -S/p open Reagan reversal and colorectal low pelvic anastomosis, segmental partial colectomy, and open incarcerated incisional and parastomal hernia repairs with mesh by Dr. Art on 01/21/2019. Continue [place] and Dilaudid as needed for pain and Zofran as needed for nausea. -Stage III sigmoid colon cancer, status post surgery and chemo in 2018. -Acute kidney injury on chronic kidney disease, monitor urine output BUN and creatinine. Dr. Stuart is following in nephrology consultation. -Acute on chronic diastolic CHF -Atrial fibrillation. -Obstructive sleep apnea -History of hypertension -History of left upper extremity DVT Further recommendations based on clinical course. Plan of care discussed with Dr. Fox. Result Diagram: 01/31/19 0509 01/31/19 0509 Results 24hrs Laboratory Tests Test 01/30/19 16:54 01/30/19 19:00 01/31/19 05:09 Lactic Acid Level 2.0 Urine Color YELLOW Urine Clarity SLIGHTLY CLOUDY A Urine pH 5.0 Urine Specific [place] 1.020 Urine Ketones NEGATIVE Urine Nitrite NEGATIVE Urine Bilirubin NEGATIVE Urine Urobilinogen NEGATIVE Urine Leukocyte Esterase 3+ H Urine Microscopic RBC 2 Urine Microscopic WBC 104 H Urine Bacteria FEW A Urine Hemoglobin 1+ H Urine Glucose NEGATIVE Urine Total Protein NEGATIVE White Blood Count 18.0 H Red Blood Count 3.85 L Hemoglobin 11.6 L Hematocrit 35.1 L Mean Corpuscular Volume 91.2 Mean Corpuscular Hemoglobin 30.1 Mean Corpuscular 33.0 Hemoglobin Concent Red Cell Distribution Width 14.1 Platelet Count 417 H Mean Platelet Volume 11.5 H Immature Granulocytes % 2.400 H Neutrophils % 88.7 H Lymphocytes % 2.8 L Monocytes % 4.9 Eosinophils % 0.9 Basophils % 0.3 Nucleated Red Blood Cells % 0.0 Immature Granulocytes # 0.440 H Neutrophils # 15.9 H Lymphocytes # 0.5 L Monocytes # 0.9 Eosinophils # 0.2 Basophils # 0.1 Nucleated Red Blood Cells # 0.0 Sodium Level 136 Potassium Level 3.8 Chloride Level 108 Carbon Dioxide Level 22 Anion Gap 6 Blood Urea Nitrogen 18 Creatinine 0.95 Est Glomerular Filtrat > 60 Rate mL/min Glucose Level 170 Calcium Level 8.2 L Total Bilirubin 0.3 Direct Bilirubin 0.00 Indirect Bilirubin 0.3 Aspartate Amino 27 Transf (AST/SGOT) Alanine 19 Aminotransferase (ALT/SGPT) Alkaline Phosphatase 82 Total Protein 5.3 L Albumin 2.6 L Globulin 2.70 Albumin/Globulin Ratio 0.96 Exam/Review of Systems Exam Vitals Vital Signs Date Temp Pulse Resp B/P (MAP) Pulse Ox O2 O2 Flow FiO2 Time Delivery Rate 01/31/19 93 21 97 Nasal 3.0 13:40 Cannula 01/31/19 97.4 113/79 11:40 (90) Intake and Output 01/30/19 01/30/19 01/31/19 1515:00 23:00 07:00 IntakeIntake Total 100 ml 1800 ml 1250 ml OutputOutput Total 400 ml BalanceBalance 100 ml 1400 ml 1250 ml Exam Constitutional: alert, oriented Respiratory: clear to auscultation Cardiovascular: regular rate and rhythm Gastrointestinal: soft, other (s/p surgery) Genitourinary - Male: other ([place]) Musculoskeletal: nl extremities to inspection Extremities: normal pulses Neurological: nl mental status Results Results 24hrs Laboratory Tests Test 01/30/19 16:54 01/30/19 19:00 01/31/19 05:09 Lactic Acid Level 2.0 Urine Color YELLOW Urine Clarity SLIGHTLY CLOUDY A Urine pH 5.0 Urine Specific [place] 1.020 Urine Ketones NEGATIVE Urine Nitrite NEGATIVE Urine Bilirubin NEGATIVE Urine Urobilinogen NEGATIVE Urine Leukocyte Esterase 3+ H Urine Microscopic RBC 2 Urine Microscopic WBC 104 H Urine Bacteria FEW A Urine Hemoglobin 1+ H Urine Glucose NEGATIVE Urine Total Protein NEGATIVE White Blood Count 18.0 H Red Blood Count 3.85 L Hemoglobin 11.6 L Hematocrit 35.1 L Mean Corpuscular Volume 91.2 Mean Corpuscular Hemoglobin 30.1 Mean Corpuscular 33.0 Hemoglobin Concent Red Cell Distribution Width 14.1 Platelet Count 417 H Mean Platelet Volume 11.5 H Immature Granulocytes % 2.400 H Neutrophils % 88.7 H Lymphocytes % 2.8 L Monocytes % 4.9 Eosinophils % 0.9 Basophils % 0.3 Nucleated Red Blood Cells % 0.0 Immature Granulocytes # 0.440 H Neutrophils # 15.9 H Lymphocytes # 0.5 L Monocytes # 0.9 Eosinophils # 0.2 Basophils # 0.1 Nucleated Red Blood Cells # 0.0 Sodium Level 136 Potassium Level 3.8 Chloride Level 108 Carbon Dioxide Level 22 Anion Gap 6 Blood Urea Nitrogen 18 Creatinine 0.95 Est Glomerular Filtrat > 60 Rate mL/min Glucose Level 170 Calcium Level 8.2 L Total Bilirubin 0.3 Direct Bilirubin 0.00 Indirect Bilirubin 0.3 Aspartate Amino 27 Transf (AST/SGOT) Alanine 19 Aminotransferase (ALT/SGPT) Alkaline Phosphatase 82 Total Protein 5.3 L Albumin 2.6 L Globulin 2.70 Albumin/Globulin Ratio 0.96 Medications Medication Current Medications Miscellaneous Information (* Miscellaneous Pharmacy Order) DURAMORPH: 3.5MG EPIDU... GIVEN NEURAXIAL XX ; Start 01/21/19 at 10:00 Hydromorphone HCl (Dilaudid) 0.2 mg Q2H PRN IV .PAIN 1-5 Last administered on 01/22/19at 16:08; Admin Dose 0.2 MG; Start 01/21/19 at 12:00 Hydromorphone HCl (Dilaudid) 0.4 mg Q2H PRN IV .PAIN 6-10 Last administered on 01/28/19at 05:56; Admin Dose 0.4 MG; Start 01/21/19 at 12:00 Acetaminophen/ Hydrocodone Bitart ([place] (5/325)) 1 tab Q4H PRN PO .PAIN 4-6 Last administered on 01/25/19at 08:34; Admin Dose 1 TAB; Start 01/21/19 at 12:00 Diphenhydramine HCl (Benadryl) 25 mg Q4H PRN IV .PRURITUS; Start 01/21/19 at 12:00 Nalbuphine HCl (Nubain) 10 mg Q4H PRN IV .PRURITUS; Start 01/21/19 at 12:00 Ondansetron HCl (Zofran Inj) 4 mg Q6H PRN IV .NAUSEA/VOMITING Last administered on 01/22/19 23:48; Admin Dose 4 MG; Start 01/21/19 at 12:00 Trimethobenzamide HCl (Tigan) 200 mg Q6H PRN IM .NAUSEA/VOMITING; Start 01/21/19 at 12:00 Zolpidem Tartrate (Ambien) 5 mg HS MAY REPEAT X 1 PRN PO .INSOMNIA; Start 01/21/19 at 12:00 Naloxone HCl (Narcan) 0.2 mg Q2M PRN IV .RESP RATE; Start 01/21/19 at 12:00 Hydralazine HCl (Apresoline) 10 mg Q4H PRN IV >150/95 Last administered on 01/24/19 05:34; Admin Dose 10 MG; Start 01/21/19 at 14:00 Metoprolol Tartrate (Lopressor) 5 mg Q4H PRN IV HR>110 HOld SBP<100 Last admin istered on 01/25/19 05:11; Admin Dose 5 MG; Start 01/23/19 at 20:30 Levalbuterol (Xopenex Neb) 0.63 mg Q6H RESP THERAPY HHN Last administered on 01/31/19 13:42; Admin Dose 0.63 MG; Start 01/24/19 at 23:30 Acetaminophen (Tylenol Tab) 650 mg Q6H PRN PO MILD PAIN(1-3)OR ELEVATED TEMP Last administered on 01/29/19 23:29; Admin Dose 650 MG; Start 01/29/19 at 23:30 Al Hydrox/Mg Hydrox/Simethicone (Mag-Al Plus) 30 ml Q4H PRN PO GASTROINTESTINAL UPSET Last administered on 01/30/19 18:39; Admin Dose 30 ML; Start 01/29/19 at 23:30 Atenolol (Tenormin) 50 mg BID PO Last administered on 01/31/19 09:54; Admin Dose 50 MG; Start 01/30/19 at 21:00 Enoxaparin Sodium (Lovenox) 95 mg BID SC Last administered on 01/31/19at 10:03; Admin Dose 95 MG; Start 01/30/19 at 21:00 Vancomycin HCl (Vanco Iv Per Pharmacy) VANCOMYCIN PER PHARMACY PER PROTOCOL XX ; Start 01/30/19 at 20:30 Meropenem/Sodium Chloride 50 ml @ 100 mls/hr Q12 IVPB Last administered on 01/31/19at 10:05; Admin Dose 100 MLS/HR; Start 01/30/19 at 21:00 Fluconazole/ Sodium Chloride 50 ml @ 50 mls/hr Q24H IVPB Last administered on 01/30/19at 21:58; Admin Dose 50 MLS/HR; Start 01/30/19 at 20:30 Vancomycin HCl 1.5 gm/Sodium Chloride 250 ml @ 83.333 mls/ hr Q12H IVPB Last administered on 01/31/19at 10:57; Admin Dose 83.333 MLS/HR; Start 01/31/19 at 11:00 Miscellaneous Information (*Rx Drug Level Order Reminder*) 1 1000 ONCE XX ; S tart 02/01/19 at 10:00; Stop 02/01/19 at 10:01 ODELL PACHECO Jan 31, 2019 14:41
--- NOTE | 2019-01-31 17:04 | CONS ---
Assessment/Plan Assessment/Plan Hospital Course (Demo Recall) 1. Sepsis 2/2 to intra-abdominal infection vs. PNA based on recent CT -S/p open Reagan reversal and colorectal low pelvic anastomosis, segmental partial colectomy, and open incarcerated incisional and parastomal hernia repairs with mesh by Dr. Art on 01/21/2019. Continue [place] and Dilaudid as needed for pain and Zofran as needed for nausea. -Stage III sigmoid colon cancer, status post surgery and chemo in 2018. -Acute kidney injury on chronic kidney disease, monitor urine output BUN and creatinine. -Acute on chronic diastolic CHF -Atrial fibrillation. -Obstructive sleep apnea -History of hypertension -History of left upper extremity DVT R: f/u victor cx; placing nursing order to ensure wound cx from drainage collected lactic acid repeat in am wound picts consider CT guided drainage and/or repeat ct given apparent increased drainage noted Vanco/Merrem/fucon continue HIV was negative MRSA screen pending will follow closely with you. Consultation Date/Type/Reason Admit Date/Time Jan 21, 2019 at 06:18 Initial Consult Date 01/30/19 Type of Consult ID Requesting Provider: ODELL PACHECO Date/Time of Note DATE: 01/31/19 TIME: 17:01 cct2.5h Exam/Review of Systems Exam Vitals Vital Signs Date Temp Pulse Resp B/P (MAP) Pulse Ox O2 O2 Flow FiO2 Time Delivery Rate 01/31/19 99 16:09 01/31/19 98.5 18 137/87 95 15:32 (104) 01/31/19 3.0 14:50 01/31/19 Nasal 13:40 Cannula Intake and Output 01/30/19 01/30/19 01/31/19 1515:00 23:00 07:00 IntakeIntake Total 100 ml 1800 ml 1250 ml OutputOutput Total 400 ml BalanceBalance 100 ml 1400 ml 1250 ml Results Result Diagram: 01/31/19 0509 01/31/19 0509 Results 24hrs Laboratory Tests Test 01/30/19 19:00 01/31/19 05:09 Urine Color YELLOW Urine Clarity SLIGHTLY CLOUDY A Urine pH 5.0 Urine Specific [place] 1.020 Urine Ketones NEGATIVE Urine Nitrite NEGATIVE Urine Bilirubin NEGATIVE Urine Urobilinogen NEGATIVE Urine Leukocyte Esterase 3+ H Urine Microscopic RBC 2 Urine Microscopic WBC 104 H Urine Bacteria FEW A Urine Hemoglobin 1+ H Urine Glucose NEGATIVE Urine Total Protein NEGATIVE White Blood Count 18.0 H Red Blood Count 3.85 L Hemoglobin 11.6 L Hematocrit 35.1 L Mean Corpuscular Volume 91.2 Mean Corpuscular Hemoglobin 30.1 Mean Corpuscular Hemoglobin Concent 33.0 Red Cell Distribution Width 14.1 Platelet Count 417 H Mean Platelet Volume 11.5 H Immature Granulocytes % 2.400 H Neutrophils % 88.7 H Lymphocytes % 2.8 L Monocytes % 4.9 Eosinophils % 0.9 Basophils % 0.3 Nucleated Red Blood Cells % 0.0 Immature Granulocytes # 0.440 H Neutrophils # 15.9 H Lymphocytes # 0.5 L Monocytes # 0.9 Eosinophils # 0.2 Basophils # 0.1 Nucleated Red Blood Cells # 0.0 Sodium Level 136 Potassium Level 3.8 Chloride Level 108 Carbon Dioxide Level 22 Anion Gap 6 Blood Urea Nitrogen 18 Creatinine 0.95 Est Glomerular Filtrat Rate mL/min > 60 Glucose Level 170 Calcium Level 8.2 L Total Bilirubin 0.3 Direct Bilirubin 0.00 Indirect Bilirubin 0.3 Aspartate Amino Transf (AST/SGOT) 27 Alanine Aminotransferase (ALT/SGPT) 19 Alkaline Phosphatase 82 Total Protein 5.3 L Albumin 2.6 L Globulin 2.70 Albumin/Globulin Ratio 0.96 Medications Medication Current Medications Miscellaneous Information (* Miscellaneous Pharmacy Order) DURAMORPH: 3.5MG EPIDU... GIVEN NEURAXIAL XX ; Start 01/21/19 at 10:00 Hydromorphone HCl (Dilaudid) 0.2 mg Q2H PRN IV .PAIN 1-5 Last administered on 01/22/19at 16:08; Admin Dose 0.2 MG; Start 01/21/19 at 12:00 Hydromorphone HCl (Dilaudid) 0.4 mg Q2H PRN IV .PAIN 6-10 Last administered on 01/28/19at 05:56; Admin Dose 0.4 MG; Start 01/21/19 at 12:00 Acetaminophen/ Hydrocodone Bitart ([place] (5/325)) 1 tab Q4H PRN PO .PAIN 4-6 Last administered on 01/25/19at 08:34; Admin Dose 1 TAB; Start 01/21/19 at 12:00 Diphenhydramine HCl (Benadryl) 25 mg Q4H PRN IV .PRURITUS; Start 01/21/19 at 12:00 Nalbuphine HCl (Nubain) 10 mg Q4H PRN IV .PRURITUS; Start 01/21/19 at 12:00 Ondansetron HCl (Zofran Inj) 4 mg Q6H PRN IV .NAUSEA/VOMITING Last administered on 01/22/19 23:48; Admin Dose 4 MG; Start 01/21/19 at 12:00 Trimethobenzamide HCl (Tigan) 200 mg Q6H PRN IM .NAUSEA/VOMITING; Start 01/21/19 at 12:00 Zolpidem Tartrate (Ambien) 5 mg HS MAY REPEAT X 1 PRN PO .INSOMNIA; Start 01/21/19 at 12:00 Naloxone HCl (Narcan) 0.2 mg Q2M PRN IV .RESP RATE; Start 01/21/19 at 12:00 Hydralazine HCl (Apresoline) 10 mg Q4H PRN IV >150/95 Last administered on 01/24/19at 05:34; Admin Dose 10 MG; Start 01/21/19 at 14:00 Metoprolol Tartrate (Lopressor) 5 mg Q4H PRN IV HR>110 HOld SBP<100 Last admin istered on 01/25/19 05:11; Admin Dose 5 MG; Start 01/23/19 at 20:30 Levalbuterol (Xopenex Neb) 0.63 mg Q6H RESP THERAPY HHN Last administered on 01/31/19at 13:42; Admin Dose 0.63 MG; Start 01/24/19 at 23:30 Acetaminophen (Tylenol Tab) 650 mg Q6H PRN PO MILD PAIN(1-3)OR ELEVATED TEMP Last administered on 01/29/19 23:29; Admin Dose 650 MG; Start 01/29/19 at 23:30 Al Hydrox/Mg Hydrox/Simethicone (Mag-Al Plus) 30 ml Q4H PRN PO GASTROINTESTINAL UPSET Last administered on 01/30/19at 18:39; Admin Dose 30 ML; Start 01/29/19 at 23:30 Atenolol (Tenormin) 50 mg BID PO Last administered on 01/31/19at 09:54; Admin Dose 50 MG; Start 4/17/19 at 21:00 Enoxaparin Sodium (Lovenox) 95 mg BID SC Last administered on 01/31/19at 10:03; Admin Dose 95 MG; Start 01/30/19 at 21:00 Vancomycin HCl (Vanco Iv Per Pharmacy) VANCOMYCIN PER PHARMACY PER PROTOCOL XX ; Start 01/30/19 at 20:30 Meropenem/Sodium Chloride 50 ml @ 100 mls/hr Q12 IVPB Last administered on 01/31/19at 10:05; Admin Dose 100 MLS/HR; Start 01/30/19 at 21:00 Fluconazole/ Sodium Chloride 50 ml @ 50 mls/hr Q24H IVPB Last administered on 01/30/19at 21:58; Admin Dose 50 MLS/HR; Start 01/30/19 at 20:30 Vancomycin HCl 1.5 gm/Sodium Chloride 250 ml @ 83.333 mls/ hr Q12H IVPB Last administered on 01/31/19at 10:57; Admin Dose 83.333 MLS/HR; Start 01/31/19 at 11:00 Miscellaneous Information (*Rx Drug Level Order Reminder*) 1 1000 ONCE XX ; S tart 02/01/19 at 10:00; Stop 02/01/19 at 10:01 KURT SEO MD Jan 31, 2019 17:04
--- NOTE | 2019-01-31 18:54 | CONS ---
Assessment/Plan Assessment/Plan Hospital Course (Demo Recall) Case reviewed with Dr. Fox and care coordinated. Rec for CT guided drainage was noted and Dr. Fox asked us to proceed with ordering as well as order cxs. Orders placed. will continue abx and follow closely with you. ty Consultation Date/Type/Reason Admit Date/Time Jan 21, 2019 at 06:18 Initial Consult Date 01/30/19 Type of Consult ID Requesting Provider: ODELL PACHECO Date/Time of Note DATE: 01/31/19 TIME: 18:52 Exam/Review of Systems Exam Vitals Vital Signs Date Temp Pulse Resp B/P (MAP) Pulse Ox O2 O2 Flow FiO2 Time Delivery Rate 01/31/19 98.1 89 19 119/82 96 18:49 (94) 01/31/19 3.0 14:50 01/31/19 Nasal 13:40 Cannula Intake and Output 01/30/19 01/30/19 01/31/19 1414:59 22:59 06:59 IntakeIntake Total 100 ml 1750 ml 1300 ml OutputOutput Total 400 ml BalanceBalance 100 ml 1350 ml 1300 ml Results Result Diagram: 01/31/19 0509 01/31/19 0509 Results 24hrs Laboratory Tests Test 01/30/19 19:00 01/31/19 05:09 Urine Color YELLOW Urine Clarity SLIGHTLY CLOUDY A Urine pH 5.0 Urine Specific [place] 1.020 Urine Ketones NEGATIVE Urine Nitrite NEGATIVE Urine Bilirubin NEGATIVE Urine Urobilinogen NEGATIVE Urine Leukocyte Esterase 3+ H Urine Microscopic RBC 2 Urine Microscopic WBC 104 H Urine Bacteria FEW A Urine Hemoglobin 1+ H Urine Glucose NEGATIVE Urine Total Protein NEGATIVE White Blood Count 18.0 H Red Blood Count 3.85 L Hemoglobin 11.6 L Hematocrit 35.1 L Mean Corpuscular Volume 91.2 Mean Corpuscular Hemoglobin 30.1 Mean Corpuscular Hemoglobin Concent 33.0 Red Cell Distribution Width 14.1 Platelet Count 417 H Mean Platelet Volume 11.5 H Immature Granulocytes % 2.400 H Neutrophils % 88.7 H Lymphocytes % 2.8 L Monocytes % 4.9 Eosinophils % 0.9 Basophils % 0.3 Nucleated Red Blood Cells % 0.0 Immature Granulocytes # 0.440 H Neutrophils # 15.9 H Lymphocytes # 0.5 L Monocytes # 0.9 Eosinophils # 0.2 Basophils # 0.1 Nucleated Red Blood Cells # 0.0 Sodium Level 136 Potassium Level 3.8 Chloride Level 108 Carbon Dioxide Level 22 Anion Gap 6 Blood Urea Nitrogen 18 Creatinine 0.95 Est Glomerular Filtrat Rate mL/min > 60 Glucose Level 170 Calcium Level 8.2 L Total Bilirubin 0.3 Direct Bilirubin 0.00 Indirect Bilirubin 0.3 Aspartate Amino Transf (AST/SGOT) 27 Alanine Aminotransferase (ALT/SGPT) 19 Alkaline Phosphatase 82 Total Protein 5.3 L Albumin 2.6 L Globulin 2.70 Albumin/Globulin Ratio 0.96 Medications Medication Current Medications Miscellaneous Information (* Miscellaneous Pharmacy Order) DURAMORPH: 3.5MG EPIDU... GIVEN NEURAXIAL XX ; Start 01/21/19 at 10:00 Hydromorphone HCl (Dilaudid) 0.2 mg Q2H PRN IV .PAIN 1-5 Last administered on 01/22/19at 16:08; Admin Dose 0.2 MG; Start 01/21/19 at 12:00 Hydromorphone HCl (Dilaudid) 0.4 mg Q2H PRN IV .PAIN 6-10 Last administered on 01/28/19at 05:56; Admin Dose 0.4 MG; Start 01/21/19 at 12:00 Acetaminophen/ Hydrocodone Bitart ([place] (5/325)) 1 tab Q4H PRN PO .PAIN 4-6 L ast administered on 01/25/19at 08:34; Admin Dose 1 TAB; Start 01/21/19 at 12:00 Diphenhydramine HCl (Benadryl) 25 mg Q4H PRN IV .PRURITUS; Start 01/21/19 at 12:00 Nalbuphine HCl (Nubain) 10 mg Q4H PRN IV .PRURITUS; Start 01/21/19 at 12:00 Ondansetron HCl (Zofran Inj) 4 mg Q6H PRN IV .NAUSEA/VOMITING Last administered on 01/22/19at 23:48; Admin Dose 4 MG; Start 01/21/19 at 12:00 Trimethobenzamide HCl (Tigan) 200 mg Q6H PRN IM .NAUSEA/VOMITING; Start 01/21/19 at 12:00 Zolpidem Tartrate (Ambien) 5 mg HS MAY REPEAT X 1 PRN PO .INSOMNIA; Start 01/21/19 at 12:00 Naloxone HCl (Narcan) 0.2 mg Q2M PRN IV .RESP RATE; Start 01/21/19 at 12:00 Hydralazine HCl (Apresoline) 10 mg Q4H PRN IV >150/95 Last administered on 01/24/19 05:34; Admin Dose 10 MG; Start 01/21/19 at 14:00 Metoprolol Tartrate (Lopressor) 5 mg Q4H PRN IV HR>110 HOld SBP<100 Last administered on 01/25/19 05:11; Admin Dose 5 MG; Start 01/23/19 at 20:30 Levalbuterol (Xopenex Neb) 0.63 mg Q6H RESP THERAPY HHN Last administered on 01/31/19 13:42; Admin Dose 0.63 MG; Start 01/24/19 at 23:30 Acetaminophen (Tylenol Tab) 650 mg Q6H PRN PO MILD PAIN(1-3)OR ELEVATED TEMP Last administered on 01/29/19at 23:29; Admin Dose 650 MG; Start 01/29/19 at 23:30 Al Hydrox/Mg Hydrox/Simethicone (Mag-Al Plus) 30 ml Q4H PRN PO GASTROINTESTINAL UPSET Last administered on 01/30/19 18:39; Admin Dose 30 ML; Start 01/29/19 at 23:30 Atenolol (Tenormin) 50 mg BID PO Last administered on 01/31/19at 09:54; Admin Dose 50 MG; Start 01/30/19 at 21:00 Enoxaparin Sodium (Lovenox) 95 mg BID SC Last administered on 01/31/19at 10:03; Admin Dose 95 MG; Start 01/30/19 at 21:00 Vancomycin HCl (Vanco Iv Per Pharmacy) VANCOMYCIN PER PHARMACY PER PROTOCOL XX ; Start 01/30/19 at 20:30 Meropenem/Sodium Chloride 50 ml @ 100 mls/hr Q12 IVPB Last administered on 01/31/19at 10:05; Admin Dose 100 MLS/HR; Start 01/30/19 at 21:00 Fluconazole/ Sodium Chloride 50 ml @ 50 mls/hr Q24H IVPB Last administered on 01/30/19at 21:58; Admin Dose 50 MLS/HR; Start 01/30/19 at 20:30 Vancomycin HCl 1.5 gm/Sodium Chloride 250 ml @ 83.333 mls/ hr Q12H IVPB Last administered on 01/31/19at 10:57; Admin Dose 83.333 MLS/HR; Start 01/31/19 at 11:00 Miscellaneous Information (*Rx Drug Level Order Reminder*) 1 1000 ONCE XX ; Start 02/01/19 at 10:00; Stop 02/01/19 at 10:01 KURT SEO MD Jan 31, 2019 18:54
[2019-01-31] MEDS: FLUCONAZOLE 100 MG/50 ML (PMX) 50 ML IVPB SCH (21:18)
[2019-01-31] MEDS ORDERED: LORAZEPAM 2 MG INJ IV PRN (22:30)
[2019-02-01] VITALS (12 sets, daily range): BP systolic 127–148; BP diastolic 76–86; PULSE 9–102; RESP 19–20
[2019-02-01] MEDS: LEVALBUTEROL (NEB) 0.63 MG/3 ML AMP HHN SCH ×4 (02:24→21:11)
[2019-02-01] MEDS ORDERED: FUROSEMIDE 20 MG INJ IV ONE (09:00)
[2019-02-01] MEDS: ENOXAPARIN 100 MG/ML SYG SC SCH ×2 (09:00→20:43)
[2019-02-01] MEDS: MEROPENEM 500MG/50 ML (PMX) 50 ML IVPB SCH (09:05)
[2019-02-01] MEDS: ATENOLOL 50 MG TAB PO SCH ×2 (09:08→20:19)
--- NOTE | 2019-02-01 09:15 | PN ---
DATE: 02/01/2019 SUBJECTIVE: The patient's abdomen is firm, distended with noted drainage from the dehiscent site. N o other events noted. No hemoptysis, hematemesis or hematochezia. OBJECTIVE: VITAL SIGNS: Blood pressure is 127/81, respirations 20, pulse 87, temperature 99.8. HEENT: Head is normocephalic. NECK: Supple. HEART: Regular rate. LUNGS: Show diminished breath sounds at the base. ABDOMEN: Firm, distended, with positive dressing. EXTREMITIES: Negative for clubbing, cyanosis, positive edema. DERMATOLOGIC: No rashes. MUSCULOSKELETAL: No joint effusion. NEUROLOGIC: No change in exam. LABORATORY DATA: Reviewed. MEDICATIONS: Reviewed. ASSESSMENT AND PLAN: 1. Nonoliguric acute kidney injury, etiology is secondary acute tubular necrosis. Renal function is improved. Continue to monitor. 2. Hypokalemia. Continue to monitor and replete as needed. 3. Volume overload. Continue intermittent diuretic therapy. 4. Acute respiratory failure secondary to pneumonia, bronchitis, improving. Continue to monitor. 5. Tachyarrhythmia. Continue to monitor. 6. Metabolic acidosis, resolved. 7. Peritonitis, possible intraabdominal abscess. Continue antibiotic therapy. Follow up with infec tious disease. The patient may require a drain. Followup with general surgery. 8. History of colon cancer. The patient is status post reversal colostomy. Now with underlying per itonitis, possible intraabdominal abscess. Continue to monitor. Follow up with general surgery, and Infectious Disease. 9. Deep vein thrombosis. Continue medical management. 10. Hypernatremia, improved. Dictated By: SUSAN ZURITA DO NR/NTS Conf#: [id number] DID#: [id number] CC: JACOB FERNANDEZ MD; ANDREY ZHENG MD;*EndCC*
[2019-02-01] MEDS: VANCOMYCIN HCL 1.5 GM in SOD CHLORIDE 0.9% 250 ML IVPB SCH ×2 (11:05→22:33)
--- NOTE | 2019-02-01 11:49 | CONS ---
[facility] HCIS Consult Follow-up Patient Name: Santiago Kelly Unit Number: [id number] Date of : 1960 Patient Status: Admitted Inpatient Attending Doctor: Ann Art Edit: MERCED RENNER M.D. on 02/04/19 @ 04:46 [place]: I discussed the management with SPRAYER HAND and agree ____ Assessment/Plan Assessment/Plan Hospital Course (Demo Recall) - Sepsis 2/2 to intra-abdominal infection vs. PNA based on recent CT - S/p open Reagan reversal and colorectal low pelvic anastomosis, segmental partial colectomy, and open incarcerated incisional and parastomal hernia repairs with mesh by Dr. Art on 01/21/2019. - Stage III sigmoid colon cancer, status post prior colectomy/colostomy and chemo in 2018. - Acute kidney injury on chronic kidney disease, monitor urine output BUN and creatinine. - Acute on chronic diastolic CHF - Atrial fibrillation. - Obstructive sleep apnea - S/p colostomy reversal - Hx hypertension - Hx left upper extremity DVT Recommendations: - Continue Vanco/Merrem/Flucon - F/u blood cultures 01/30/19 (NGTD), MRSA screen (pending), yesterday nursing order was placed to ensure wound cx from drainage collected - F/u CT guided drainage and/or repeat ct given apparent increased drainage noted - Orders for culture from CT guided drainage are in place - Wound pics will follow closely with you. Plan was d/w patient, patient's daughter in law Taylor at bedside, radiologist Dr. Huffman, and with Dr. Renner. Thank you Consultation Date/Type/Reason Admit Date/Time Jan 21, 2019 at 06:18 Initial Consult Date 01/30/19 Type of Consult ID Requesting Provider: ODELL PACHECO Date/Time of Note DATE: 02/01/19 TIME: 11:38 24 HR Interval Summary Free Text/Dictation The patient had breakfast this am, CT guided drainage will be done after 1400 today. Remains afebrile, WBC trending down 14.3. Per patient's daughter in law at bedside, the patient has been experiencing anxiety, rec'd xanax last night but became agitated and aggressive. Pt has been short of breath with exertion, no cough. Denies fevers, chills, night sweats, cp, cough, n/v/d, dysuria. Per daughter in law the urine has been clear. No rash or pruritis. Also spoke with and reviewed case with radiologist Dr. Huffman, his plan is if purulent drainage is expelled he will place a drain and sent cultures, if ascitic fluid is drained he will not place a drain and will still send fluid for culture. Exam/Review of Systems Exam Vitals Vital Signs Date Temp Pulse Resp B/P (MAP) Pulse Ox O2 O2 Flow FiO2 Time Delivery Rate 02/01/19 98.2 99 20 148/83 96 11:13 (104) 02/01/19 3.0 08:27 02/01/19 Nasal 08:27 Cannula Intake and Output 01/31/19 01/31/19 02/01/19 1414:59 22:59 06:59 IntakeIntake Total 50 ml 950 ml 1550 ml OutputOutput Total 600 ml 600 ml BalanceBalance -550 ml 350 ml 1550 ml Allergies Coded Allergies No Known Allergy (Unverified01/30/19) . Constitutional: alert, oriented, well developed, other (lethargic) Psych: anxiety Head: normocephalic, atraumatic Eyes: nl conjunctiva, nl lids ENMT: nl external ears & nose, nl nasal mucosa & septum, mucosa pink and moist (no thrush noted) Neck: supple, non-tender Respiratory: clear to auscultation, normal air movement Cardiovascular: regular rate and rhythm, nl pulses Gastrointestinal: soft (Rounded ), bowel sounds (normoactive), other (Large dressing covering abdomen, recently changed, bottom of dressing was loose, noted abbey beneath this. Small amt of serous drainage was noted.); No firm Genitourinary - Male: other (No f/c) Musculoskeletal: nl extremities to inspection Extremities: normal pulses, edema (BLE 1+) Neurological: nl mental status, nl speech, nl strength Skin: nl turgor; No rash or lesions Results Result Diagram: 02/01/19 0520 02/01/19 0520 Results 24hrs Laboratory Tests Test 02/01/19 05:20 02/01/19 05:50 02/01/19 09:55 White Blood Count 14.3 #H Red Blood Count 3.61 L Hemoglobin 10.9 L Hematocrit 32.9 L Mean Corpuscular Volume 91.1 Mean Corpuscular Hemoglobin 30.2 Mean Corpuscular 33.1 Hemoglobin Concent Red Cell Distribution Width 14.4 Platelet Count 424 H Mean Platelet Volume 11.3 H Immature Granulocytes % 1.500 H Neutrophils % 87.4 H Lymphocytes % 3.8 L Monocytes % 6.1 Eosinophils % 1.0 Basophils % 0.2 Nucleated Red Blood Cells % 0.0 Immature Granulocytes # 0.220 H Neutrophils # 12.5 H Lymphocytes # 0.6 L Monocytes # 0.9 Eosinophils # 0.1 Basophils # 0.0 Nucleated Red Blood Cells # 0.0 Sodium Level 135 Potassium Level 3.9 Chloride Level 108 Carbon Dioxide Level 21 Anion Gap 6 Blood Urea Nitrogen 16 Creatinine 0.82 Est Glomerular Filtrat > 60 Rate mL/min Glucose Level 157 Lactic Acid Level 1.3 Calcium Level 8.2 L Total Bilirubin 0.2 Direct Bilirubin 0.00 Indirect Bilirubin 0.2 Aspartate Amino Transf (AST/SGOT) 30 Alanine 21 Aminotransferase (ALT/SGPT) Alkaline Phosphatase 98 Total Protein 5.3 L Albumin 2.6 L Globulin 2.70 Albumin/Globulin Ratio 0.96 Lab Scanned Report REFERENCE LAB Vancomycin Level Trough 11.8 Medications Medication Current Medications Miscellaneous Information (* Miscellaneous Pharmacy Order) DURAMORPH: 3.5MG EPIDU... GIVEN NEURAXIAL XX ; Start 01/21/19 at 10:00 Hydromorphone HCl (Dilaudid) 0.2 mg Q2H PRN IV .PAIN 1-5 Last administered on 01/22/19at 16:08; Admin Dose 0.2 MG; Start 01/21/19 at 12:00 Hydromorphone HCl (Dilaudid) 0.4 mg Q2H PRN IV .PAIN 6-10 Last administered on 01/28/19at 05:56; Admin Dose 0.4 MG; Start 01/21/19 at 12:00 Acetaminophen/ Hydrocodone Bitart ([place] (5/325)) 1 tab Q4H PRN PO .PAIN 4-6 Last administered on 01/25/19at 08:34; Admin Dose 1 TAB; Start 01/21/19 at 12:00 Diphenhydramine HCl (Benadryl) 25 mg Q4H PRN IV .PRURITUS; Start 01/21/19 at 12:00 Nalbuphine HCl (Nubain) 10 mg Q4H PRN IV .PRURITUS; Start 01/21/19 at 12:00 Ondansetron HCl (Zofran Inj) 4 mg Q6H PRN IV .NAUSEA/VOMITING Last administered on 01/22/19 23:48; Admin Dose 4 MG; Start 01/21/19 at 12:00 Trimethobenzamide HCl (Tigan) 200 mg Q6H PRN IM .NAUSEA/VOMITING; Start 01/21/19 at 12:00 Zolpidem Tartrate (Ambien) 5 mg HS MAY REPEAT X 1 PRN PO .INSOMNIA; Start 01/21/19 at 12:00 Naloxone HCl (Narcan) 0.2 mg Q2M PRN IV .RESP RATE; Start 01/21/19 at 12:00 Hydralazine HCl (Apresoline) 10 mg Q4H PRN IV >150/95 Last administered on 01/24/19 05:34; Admin Dose 10 MG; Start 01/21/19 at 14:00 Metoprolol Tartrate (Lopressor) 5 mg Q4H PRN IV HR>110 HOld SBP<100 Last administered on 01/25/19at 05:11; Admin Dose 5 MG; Start 01/23/19 at 20:30 Levalbuterol (Xopenex Neb) 0.63 mg Q6H RESP THERAPY HHN Last administered on 02/01/19 08:22; Admin Dose 0.63 MG; Start 01/24/19 at 23:30 Acetaminophen (Tylenol Tab) 650 mg Q6H PRN PO MILD PAIN(1-3)OR ELEVATED TEMP Last administered on 01/29/19at 23:29; Admin Dose 650 MG; Start 01/29/19 at 23:30 Al Hydrox/Mg Hydrox/Simethicone (Mag-Al Plus) 30 ml Q4H PRN PO GASTROINTESTINAL UPSET Last administered on 01/30/19at 18:39; Admin Dose 30 ML; Start 01/29/19 at 23:30 Atenolol (Tenormin) 50 mg BID PO Last administered on 02/01/19at 09:08; Admin Dose 50 MG; Start 01/30/19 at 21:00 Enoxaparin Sodium (Lovenox) 95 mg BID SC Last administered on 01/31/19at 21:18; Admin Dose 95 MG; Start 01/30/19 at 21:00 Vancomycin HCl (Vanco Iv Per Pharmacy) VANCOMYCIN PER PHARMACY PER PROTOCOL XX ; Start 01/30/19 at 20:30 Fluconazole/ Sodium Chloride 50 ml @ 50 mls/hr Q24H IVPB Last administered on 01/31/19at 21:18; Admin Dose 50 MLS/HR; Start 01/30/19 at 20:30 Vancomycin HCl 1.5 gm/Sodium Chloride 250 ml @ 83.333 mls/ hr Q12H IVPB Last administered on 02/01/19at 11:05; Admin Dose 83.333 MLS/HR; Start 01/31/19 at 11:00 Meropenem/Sodium Chloride 50 ml @ 100 mls/hr Q12 IVPB ; Start 02/01/19 at 21:00 JUSTYN WORLEY NP Feb 01, 2019 11:49
--- NOTE | 2019-02-01 12:37 | PN ---
Date/Time of Note Date/Time of Note DATE: 02/01/19 TIME: 12:35 Assessment/Plan VTE Prophylaxis Risk score (from Ns)>0 risk: 6 SCD applied (from Ns): Yes Pharmacological prophylaxis: other Lines/Catheters IV [facility]atheter [facility]from [facility] Saline Lock Urinary Cath still in place: No Assessment/Plan Assessment/Plan s/p reversal of colostomy and repair of parastomal hernia and partial colectomy with ascites from alcoholic liver cirrhosis with slight improvement in leukocytosis continue diurese and fluid management acute anemia from a one time bloody BM will continue to monitor Result Diagram: 02/01/1951902/01/19519 Results 24hrs Laboratory Tests Test 02/01/19 05:20 02/01/19 05:50 02/01/19 09:55 White Blood Count 14.3 #H Red Blood Count 3.61 L Hemoglobin 10.9 L Hematocrit 32.9 L Mean Corpuscular Volume 91.1 Mean Corpuscular Hemoglobin 30.2 Mean Corpuscular 33.1 Hemoglobin Concent Red Cell Distribution Width 14.4 Platelet Count 424 H Mean Platelet Volume 11.3 H Immature Granulocytes % 1.500 H Neutrophils % 87.4 H Lymphocytes % 3.8 L Monocytes % 6.1 Eosinophils % 1.0 Basophils % 0.2 Nucleated Red Blood Cells % 0.0 Immature Granulocytes # 0.220 H Neutrophils # 12.5 H Lymphocytes # 0.6 L Monocytes # 0.9 Eosinophils # 0.1 Basophils # 0.0 Nucleated Red Blood Cells # 0.0 Sodium Level 135 Potassium Level 3.9 Chloride Level 108 Carbon Dioxide Level 21 Anion Gap 6 Blood Urea Nitrogen 16 Creatinine 0.82 Est Glomerular Filtrat > 60 Rate mL/min Glucose Level 157 Lactic Acid Level 1.3 Calcium Level 8.2 L Total Bilirubin 0.2 Direct Bilirubin 0.00 Indirect Bilirubin 0.2 Aspartate Amino Transf (AST/SGOT) 30 Alanine 21 Aminotransferase (ALT/SGPT) Alkaline Phosphatase 98 Total Protein 5.3 L Albumin 2.6 L Globulin 2.70 Albumin/Globulin Ratio 0.96 Lab Scanned Report REFERENCE LAB Vancomycin Level Trough 11.8 Subjective 24 Hr Interval Summary Free Text/Dictation leukocytosis slightly improved patient with ascites and pleural effusion and pericardial effusion patient also had a bloody bm Exam/Review of Systems Exam Vitals Vital Signs Date Temp Pulse Resp B/P (MAP) Pulse Ox O2 O2 Flow FiO2 Time Delivery Rate 02/01/19 95 12:02 02/01/19 98.2 20 148/83 96 11:13 (104) 02/01/19 3.0 08:27 02/01/19 Nasal 08:27 Cannula Intake and Output 01/31/19 01/31/19 02/01/19 1515:00 23:00 07:00 IntakeIntake Total 300 ml 700 ml 1550 ml OutputOutput Total 600 ml 600 ml BalanceBalance -300 ml 100 ml 1550 ml Exam small open wound with dressing and serous drainage Results Results 24hrs Laboratory Tests Test 02/01/19 05:20 02/01/19 05:50 02/01/19 09:55 White Blood Count 14.3 #H Red Blood Count 3.61 L Hemoglobin 10.9 L Hematocrit 32.9 L Mean Corpuscular Volume 91.1 Mean Corpuscular Hemoglobin 30.2 Mean Corpuscular 33.1 Hemoglobin Concent Red Cell Distribution Width 14.4 Platelet Count 424 H Mean Platelet Volume 11.3 H Immature Granulocytes % 1.500 H Neutrophils % 87.4 H Lymphocytes % 3.8 L Monocytes % 6.1 Eosinophils % 1.0 Basophils % 0.2 Nucleated Red Blood Cells % 0.0 Immature Granulocytes # 0.220 H Neutrophils # 12.5 H Lymphocytes # 0.6 L Monocytes # 0.9 Eosinophils # 0.1 Basophils # 0.0 Nucleated Red Blood Cells # 0.0 Sodium Level 135 Potassium Level 3.9 Chloride Level 108 Carbon Dioxide Level 21 Anion Gap 6 Blood Urea Nitrogen 16 Creatinine 0.82 Est Glomerular Filtrat > 60 Rate mL/min Glucose Level 157 Lactic Acid Level 1.3 Calcium Level 8.2 L Total Bilirubin 0.2 Direct Bilirubin 0.00 Indirect Bilirubin 0.2 Aspartate Amino Transf (AST/SGOT) 30 Alanine 21 Aminotransferase (ALT/SGPT) Alkaline Phosphatase 98 Total Protein 5.3 L Albumin 2.6 L Globulin 2.70 Albumin/Globulin Ratio 0.96 Lab Scanned Report REFERENCE LAB Vancomycin Level Trough 11.8 Medications Medication Current Medications Miscellaneous Information (* Miscellaneous Pharmacy Order) DURAMORPH: 3.5MG EPIDU... GIVEN NEURAXIAL XX ; Start 01/21/19 at 10:00 Hydromorphone HCl (Dilaudid) 0.2 mg Q2H PRN IV .PAIN 1-5 Last administered on 01/22/19 16:08; Admin Dose 0.2 MG; Start 01/21/19 at 12:00 Hydromorphone HCl (Dilaudid) 0.4 mg Q2H PRN IV .PAIN 6-10 Last administered on 01/28/19 05:56; Admin Dose 0.4 MG; Start 01/21/19 at 12:00 Acetaminophen/ Hydrocodone Bitart ([place] (5/325)) 1 tab Q4H PRN PO .PAIN 4-6 Last administered on 01/25/19 08:34; Admin Dose 1 TAB; Start 01/21/19 at 12:00 Diphenhydramine HCl (Benadryl) 25 mg Q4H PRN IV .PRURITUS; Start 01/21/19 at 12:00 Nalbuphine HCl (Nubain) 10 mg Q4H PRN IV .PRURITUS; Start 01/21/19 at 12:00 Ondansetron HCl (Zofran Inj) 4 mg Q6H PRN IV .NAUSEA/VOMITING Last administered on 01/22/19at 23:48; Admin Dose 4 MG; Start 01/21/19 at 12:00 Trimethobenzamide HCl (Tigan) 200 mg Q6H PRN IM .NAUSEA/VOMITING; Start 01/21/19 at 12:00 Zolpidem Tartrate (Ambien) 5 mg HS MAY REPEAT X 1 PRN PO .INSOMNIA; Start 01/21/19 at 12:00 Naloxone HCl (Narcan) 0.2 mg Q2M PRN IV .RESP RATE; Start 01/21/19 at 12:00 Hydralazine HCl (Apresoline) 10 mg Q4H PRN IV >150/95 Last administered on 01/24/19 05:34; Admin Dose 10 MG; Start 01/21/19 at 14:00 Metoprolol Tartrate (Lopressor) 5 mg Q4H PRN IV HR>110 HOld SBP<100 Last administered on 01/25/19 05:11; Admin Dose 5 MG; Start 01/23/19 at 20:30 Levalbuterol (Xopenex Neb) 0.63 mg Q6H RESP THERAPY HHN Last administered on 02/01/19 08:22; Admin Dose 0.63 MG; Start 01/24/19 at 23:30 Acetaminophen (Tylenol Tab) 650 mg Q6H PRN PO MILD PAIN(1-3)OR ELEVATED TEMP Last administered on 01/29/19at 23:29; Admin Dose 650 MG; Start 01/29/19 at 23:30 Al Hydrox/Mg Hydrox/Simethicone (Mag-Al Plus) 30 ml Q4H PRN PO GASTROINTESTINAL UPSET Last administered on 01/30/19 18:39; Admin Dose 30 ML; Start 01/29/19 at 23:30 Atenolol (Tenormin) 50 mg BID PO Last administered on 02/01/19 09:08; Admin Dose 50 MG; Start 01/30/19 at 21:00 Enoxaparin Sodium (Lovenox) 95 mg BID SC Last administered on 01/31/19at 21:18; Admin Dose 95 MG; Start 01/30/19 at 21:00 Vancomycin HCl (Vanco Iv Per Pharmacy) VANCOMYCIN PER PHARMACY PER PROTOCOL XX ; Start 01/30/19 at 20:30 Fluconazole/ Sodium Chloride 50 ml @ 50 mls/hr Q24H IVPB Last administered on 01/31/19at 21:18; Admin Dose 50 MLS/HR; Start 01/30/19 at 20:30 Vancomycin HCl 1.5 gm/Sodium Chloride 250 ml @ 83.333 mls/ hr Q12H IVPB Last administered on 02/01/19 11:05; Admin Dose 83.333 MLS/HR; Start 01/31/19 at 11:00 Meropenem/Sodium Chloride 50 ml @ 100 mls/hr Q12 IVPB ; Start 02/01/19 at 21:00 Ann FERNANDEZ Feb 01, 2019 12:37
--- NOTE | 2019-02-01 12:45 | PN ---
Date/Time of Note Date/Time of Note DATE: 02/01/19 TIME: 12:45 Assessment/Plan VTE Prophylaxis Risk score (from Ns)>0 risk: 6 SCD applied (from [facility] [place]): Yes SCD contraindicated: other Pharmacological prophylaxis: other Pharm contraindication: other Lines/Catheters IV Catheter Type (from [facility]): [place] Urinary Cath still in place: No Assessment/Plan Assessment/Plan -Increased leukocytosis - on Zosyn and Flagyl - CT of the abdomen and pelvis revealed moderate ascites, questionable peritonitis or abscess increased right lower lobe infiltrate. - per Dr. Vázquez in infection disease consultation. -Possible surgical wound infection, obtain wound cx. -Right lower lobe infiltrate -S/p open Reagan reversal and colorectal low pelvic anastomosis, segmental partial colectomy, and open incarcerated incisional and parastomal hernia r epairs with mesh by Dr. Art on 01/21/2019. Continue [place] and Dilaudid as needed for pain and Zofran as needed for nausea. -Stage III sigmoid colon cancer, status post surgery and chemo in 2018. - per surgery - wound care - pain control - monitor VS, CBC -Acute kidney injury on chronic kidney disease, monitor urine output BUN and creatinine. Dr. Stuart is following in nephrology consultation. -Acute on chronic diastolic CHF -Atrial fibrillation. -Obstructive sleep apnea -History of hypertension -History of left upper extremity DVT Patient seen in collaboration with Dr Fox Result Diagram: 02/01/19 0520 02/01/19 0520 Results 24hrs Laboratory Tests Test 02/01/19 05:20 02/01/19 05:50 02/01/19 09:55 White Blood Count 14.3 #H Red Blood Count 3.61 L Hemoglobin 10.9 L Hematocrit 32.9 L Mean Corpuscular Volume 91.1 Mean Corpuscular Hemoglobin 30.2 Mean Corpuscular 33.1 Hemoglobin Concent Red Cell Distribution Width 14.4 Platelet Count 424 H Mean Platelet Volume 11.3 H Immature Granulocytes % 1.500 H Neutrophils % 87.4 H Lymphocytes % 3.8 L Monocytes % 6.1 Eosinophils % 1.0 Basophils % 0.2 Nucleated Red Blood Cells % 0.0 Immature Granulocytes # 0.220 H Neutrophils # 12.5 H Lymphocytes # 0.6 L Monocytes # 0.9 Eosinophils # 0.1 Basophils # 0.0 Nucleated Red Blood Cells # 0.0 Sodium Level 135 Potassium Level 3.9 Chloride Level 108 Carbon Dioxide Level 21 Anion Gap 6 Blood Urea Nitrogen 16 Creatinine 0.82 Est Glomerular Filtrat > 60 Rate mL/min Glucose Level 157 Lactic Acid Level 1.3 Calcium Level 8.2 L Total Bilirubin 0.2 Direct Bilirubin 0.00 Indirect Bilirubin 0.2 Aspartate Amino Transf (AST/SGOT) 30 Alanine 21 Aminotransferase (ALT/SGPT) Alkaline Phosphatase 98 Total Protein 5.3 L Albumin 2.6 L Globulin 2.70 Albumin/Globulin Ratio 0.96 Lab Scanned Report REFERENCE LAB Vancomycin Level Trough 11.8 Subjective 24 Hr Interval Summary Constitutional: requiring O2 ENT: no complaints Respiratory: no complaints Cardiovascular: no complaints Gastrointestinal: pain Genitourinary: no complaints Musculoskeletal: no complaints Skin: no complaints Neurologic: no complaints Endocrine: no complaints Lymphatic: no complaints Psychological: nl mood/affect Immunologic: no complaints Exam/Review of Systems Exam Vitals Vital Signs Date Temp Pulse Resp B/P (MAP) Pulse Ox O2 O2 Flow FiO2 Time Delivery Rate 02/01/19 95 12:02 02/01/19 98.2 20 148/83 96 11:13 (104) 02/01/19 3.0 08:27 02/01/19 Nasal 08:27 Cannula Intake and Output 01/31/19 01/31/19 02/01/19 1414:59 22:59 06:59 IntakeIntake Total 50 ml 950 ml 1550 ml OutputOutput Total 600 ml 600 ml BalanceBalance -550 ml 350 ml 1550 ml Constitutional: alert, well developed, obese Psych: nl mood/affect Head: normocephalic Eyes: nl lids, nl sclera ENMT: nl external ears & nose Neck: non-tender Respiratory: diminished breath sounds (bileral at bases) Cardiovascular: nl pulses, other (s1s2) Gastrointestinal: soft, tender, other (surgical abdomen -DDI) Musculoskeletal: nl extremities to inspection Extremities: normal pulses Neurological: nl speech, other (alert/responsive) Skin: nl turgor Lymph: nontender Results Results 24hrs Laboratory Tests Test 02/01/19 05:20 02/01/19 05:50 02/01/19 09:55 White Blood Count 14.3 #H Red Blood Count 3.61 L Hemoglobin 10.9 L Hematocrit 32.9 L Mean Corpuscular Volume 91.1 Mean Corpuscular Hemoglobin 30.2 Mean Corpuscular 33.1 Hemoglobin Concent Red Cell Distribution Width 14.4 Platelet Count 424 H Mean Platelet Volume 11.3 H Immature Granulocytes % 1.500 H Neutrophils % 87.4 H Lymphocytes % 3.8 L Monocytes % 6.1 Eosinophils % 1.0 Basophils % 0.2 Nucleated Red Blood Cells % 0.0 Immature Granulocytes # 0.220 H Neutrophils # 12.5 H Lymphocytes # 0.6 L Monocytes # 0.9 Eosinophils # 0.1 Basophils # 0.0 Nucleated Red Blood Cells # 0.0 Sodium Level 135 Potassium Level 3.9 Chloride Level 108 Carbon Dioxide Level 21 Anion Gap 6 Blood Urea Nitrogen 16 Creatinine 0.82 Est Glomerular Filtrat > 60 Rate mL/min Glucose Level 157 Lactic Acid Level 1.3 Calcium Level 8.2 L Total Bilirubin 0.2 Direct Bilirubin 0.00 Indirect Bilirubin 0.2 Aspartate Amino Transf (AST/SGOT) 30 Alanine 21 Aminotransferase (ALT/SGPT) Alkaline Phosphatase 98 Total Protein 5.3 L Albumin 2.6 L Globulin 2.70 Albumin/Globulin Ratio 0.96 Lab Scanned Report REFERENCE LAB Vancomycin Level Trough 11.8 Medications Medication Current Medications Miscellaneous Information (* Miscellaneous Pharmacy Order) DURAMORPH: 3.5MG EPIDU... GIVEN NEURAXIAL XX ; Start 01/21/19 at 10:00 Hydromorphone HCl (Dilaudid) 0.2 mg Q2H PRN IV .PAIN 1-5 Last administered on at 16:08; Admin Dose 0.2 MG; Start 01/21/19 at 12:00 Hydromorphone HCl (Dilaudid) 0.4 mg Q2H PRN IV .PAIN 6-10 Last administered on 01/28/19at 05:56; Admin Dose 0.4 MG; Start 01/21/19 at 12:00 Acetaminophen/ Hydrocodone Bitart ([place] (5/325)) 1 tab Q4H PRN PO .PAIN 4-6 Last administered on 01/25/19at 08:34; Admin Dose 1 TAB; Start 01/21/19 at 12:00 Diphenhydramine HCl (Benadryl) 25 mg Q4H PRN IV .PRURITUS; Start 01/21/19 at 12:00 Nalbuphine HCl (Nubain) 10 mg Q4H PRN IV .PRURITUS; Start 01/21/19 at 12:00 Ondansetron HCl (Zofran Inj) 4 mg Q6H PRN IV .NAUSEA/VOMITING Last administered on 01/22/19 23:48; Admin Dose 4 MG; Start 01/21/19 at 12:00 Trimethobenzamide HCl (Tigan) 200 mg Q6H PRN IM .NAUSEA/VOMITING; Start 01/21/19 at 12:00 Zolpidem Tartrate (Ambien) 5 mg HS MAY REPEAT X 1 PRN PO .INSOMNIA; Start 01/21/19 at 12:00 Naloxone HCl (Narcan) 0.2 mg Q2M PRN IV .RESP RATE; Start 01/21/19 at 12:00 Hydralazine HCl (Apresoline) 10 mg Q4H PRN IV >150/95 Last administered on 01/24/19 05:34; Admin Dose 10 MG; Start 01/21/19 at 14:00 Metoprolol Tartrate (Lopressor) 5 mg Q4H PRN IV HR>110 HOld SBP<100 Last administered on 01/25/19 05:11; Admin Dose 5 MG; Start 01/23/19 at 20:30 Levalbuterol (Xopenex Neb) 0.63 mg Q6H RESP THERAPY HHN Last administered on 02/01/19 08:22; Admin Dose 0.63 MG; Start 01/24/19 at 23:30 Acetaminophen (Tylenol Tab) 650 mg Q6H PRN PO MILD PAIN(1-3)OR ELEVATED TEMP Last administered on 01/29/19 23:29; Admin Dose 650 MG; Start 01/29/19 at 23:30 Al Hydrox/Mg Hydrox/Simethicone (Mag-Al Plus) 30 ml Q4H PRN PO GASTROINTESTINAL UPSET Last administered on 01/30/19 18:39; Admin Dose 30 ML; Start 01/29/19 at 23:30 Atenolol (Tenormin) 50 mg BID PO Last administered on 02/01/19 09:08; Admin Dose 50 MG; Start 01/30/19 at 21:00 Enoxaparin Sodium (Lovenox) 95 mg BID SC Last administered on 01/31/19 21:18; Admin Dose 95 MG; Start 01/30/19 at 21:00 Vancomycin HCl (Vanco Iv Per Pharmacy) VANCOMYCIN PER PHARMACY PER PROTOCOL XX ; Start 01/30/19 at 20:30 Fluconazole/ Sodium Chloride 50 ml @ 50 mls/hr Q24H IVPB Last administered on 01/31/19at 21:18; Admin Dose 50 MLS/HR; Start 01/30/19 at 20:30 Vancomycin HCl 1.5 gm/Sodium Chloride 250 ml @ 83.333 mls/ hr Q12H IVPB Last administered on 02/01/19at 11:05; Admin Dose 83.333 MLS/HR; Start 01/31/19 at 11: 00 Meropenem/Sodium Chloride 50 ml @ 100 mls/hr Q12 IVPB ; Start 02/01/19 at 21:00 LUIS HARDWICK Feb 01, 2019 12:45
--- NOTE | 2019-02-01 15:14 | CONS ---
Assessment/Plan Assessment/Plan Hospital Course (Demo Recall) IMPRESSION: 1. Tachycardia, at this time sinus tachycardia in the setting of significant pain, fevers, status post surgery. NL EF by echo 60-65. ON had onset of AF with RVR 2. Possible congestive heart failure by chest x-ray with the patient having the onset of acute renal failure at this time. 3. Hypertension, mildly elevated. 4. Postoperative status post reversal colostomy. 5. Fevers postop. 6. Renal failure, acute.-improved now 7. History of colon carcinoma status post prior colectomy with colostomy. 8. Hypernatremia, improved 9. Hypomagnesemia-improved 10. Leukocytosis. Recc: -Tele -Continue PO BB and lovenox systemic anticoagulation with lovenox held for procedure today. -s/p IVP of digoxin with improved HR control -Pain control -Continue abx's and f/u cx data -Follow volume status closely s/p dose lasix yesterday Consultation Date/Type/Reason Admit Date/Time Jan 21, 2019 at 06:18 Initial Consult Date 01/23/19 Type of Consult Cardiology Reason for Consultation AF Requesting Provider: ODELL PACHECO Date/Time of Note DATE: 02/01/19 TIME: 15:11 Exam/Review of Systems Vital Signs Vitals Vital Signs Date Temp Pulse Resp B/P (MAP) Pulse Ox O2 O2 Flow FiO2 Time Delivery Rate 02/01/19 99.6 88 20 127/83 95 15:07 (98) 02/01/19 3.0 08:27 02/01/19 Nasal 08:27 Cannula Intake and Output 01/31/19 01/31/19 02/01/19 1515:00 23:00 07:00 IntakeIntake Total 300 ml 700 ml 1550 ml OutputOutput Total 600 ml 600 ml BalanceBalance -300 ml 100 ml 1550 ml Exam Exam Review of Systems: CONSTITUTIONAL: No fevers, chills. PULMONARY: No sob CARDIOVASCULAR: No chest pain/palpitations GASTROINTESTINAL: No nausea/vomiting. GENITOURINARY: No hematuria/dysuria. MUSCULOSKELETAL: No myagias/arthalgias. PSYCHIATRIC: The patient denies depression. NEUROLOGIC: No weakness Constitutional: alert, oriented Psych: no complaints Head: normocephalic ENMT: mucosa pink and moist Neck: supple, jvd (9 cm water) Respiratory: diminished breath sounds Cardiovascular: irregular rhythm Gastrointestinal: soft, non-tender, other (covered) Musculoskeletal: muscle tone (normal) Extremities: edema (none) Neurological: other (No focal deficits) Labs Result Diagram: 02/01/1951902/01/19 0520 Results 24hrs Laboratory Tests Test 02/01/19 05:20 02/01/19 05:50 02/01/19 09:55 White Blood Count 14.3 #H Red Blood Count 3.61 L Hemoglobin 10.9 L Hematocrit 32.9 L Mean Corpuscular Volume 91.1 Mean Corpuscular Hemoglobin 30.2 Mean Corpuscular 33.1 Hemoglobin Concent Red Cell Distribution Width 14.4 Platelet Count 424 H Mean Platelet Volume 11.3 H Immature Granulocytes % 1.500 H Neutrophils % 87.4 H Lymphocytes % 3.8 L Monocytes % 6.1 Eosinophils % 1.0 Basophils % 0.2 Nucleated Red Blood Cells % 0.0 Immature Granulocytes # 0.220 H Neutrophils # 12.5 H Lymphocytes # 0.6 L Monocytes # 0.9 Eosinophils # 0.1 Basophils # 0.0 Nucleated Red Blood Cells # 0.0 Sodium Level 135 Potassium Level 3.9 Chloride Level 108 Carbon Dioxide Level 21 Anion Gap 6 Blood Urea Nitrogen 16 Creatinine 0.82 Est Glomerular Filtrat > 60 Rate mL/min Glucose Level 157 Lactic Acid Level 1.3 Calcium Level 8.2 L Total Bilirubin 0.2 Direct Bilirubin 0.00 Indirect Bilirubin 0.2 Aspartate Amino Transf (AST/SGOT) 30 Alanine 21 Aminotransferase (ALT/SGPT) Alkaline Phosphatase 98 Total Protein 5.3 L Albumin 2.6 L Globulin 2.70 Albumin/Globulin Ratio 0.96 Lab Scanned Report REFERENCE LAB Vancomycin Level Trough 11.8 Medications Medications Current Medications Miscellaneous Information (* Miscellaneous Pharmacy Order) DURAMORPH: 3.5MG EPIDU... GIVEN NEURAXIAL XX ; Start 01/21/19 at 10:00 Hydromorphone HCl (Dilaudid) 0.2 mg Q2H PRN IV .PAIN 1-5 Last administered on 01/22/19at 16:08; Admin Dose 0.2 MG; Start 01/21/19 at 12:00 Hydromorphone HCl (Dilaudid) 0.4 mg Q2H PRN IV .PAIN 6-10 Last administered on 01/28/19 05:56; Admin Dose 0.4 MG; Start 01/21/19 at 12:00 Acetaminophen/ Hydrocodone Bitart ([place] (5/325)) 1 tab Q4H PRN PO .PAIN 4-6 Last administered on 01/25/19 08:34; Admin Dose 1 TAB; Start 01/21/19 at 12:00 Diphenhydramine HCl (Benadryl) 25 mg Q4H PRN IV .PRURITUS; Start 01/21/19 at 12:00 Nalbuphine HCl (Nubain) 10 mg Q4H PRN IV .PRURITUS; Start 01/21/19 at 12:00 Ondansetron HCl (Zofran Inj) 4 mg Q6H PRN IV .NAUSEA/VOMITING Last administered on 01/22/19 23:48; Admin Dose 4 MG; Start 01/21/19 at 12:00 Trimethobenzamide HCl (Tigan) 200 mg Q6H PRN IM .NAUSEA/VOMITING; Start 01/21/19 at 12:00 Zolpidem Tartrate (Ambien) 5 mg HS MAY REPEAT X 1 PRN PO .INSOMNIA; Start at 12:00 Naloxone HCl (Narcan) 0.2 mg Q2M PRN IV .RESP RATE; Start 01/21/19 at 12:00 Hydralazine HCl (Apresoline) 10 mg Q4H PRN IV >150/95 Last administered on 01/24/19 05:34; Admin Dose 10 MG; Start 01/21/19 at 14:00 Metoprolol Tartrate (Lopressor) 5 mg Q4H PRN IV HR>110 HOld SBP<100 Last admi nistered on 01/25/19 05:11; Admin Dose 5 MG; Start 01/23/19 at 20:30 Levalbuterol (Xopenex Neb) 0.63 mg Q6H RESP THERAPY HHN Last administered on 02/01/19 08:22; Admin Dose 0.63 MG; Start 01/24/19 at 23:30 Acetaminophen (Tylenol Tab) 650 mg Q6H PRN PO MILD PAIN(1-3)OR ELEVATED TEMP Last administered on 01/29/19 23:29; Admin Dose 650 MG; Start 01/29/19 at 23:30 Al Hydrox/Mg Hydrox/Simethicone (Mag-Al Plus) 30 ml Q4H PRN PO GASTROINTESTINAL UPSET Last administered on 01/30/19at 18:39; Admin Dose 30 ML; Start 01/29/19 at 23:30 Atenolol (Tenormin) 50 mg BID PO Last administered on 02/01/19at 09:08; Admin Dose 50 MG; Start 01/30/19 at 21:00 Enoxaparin Sodium (Lovenox) 95 mg BID SC Last administered on 01/31/19at 21:18; Admin Dose 95 MG; Start 01/30/19 at 21:00 Vancomycin HCl (Vanco Iv Per Pharmacy) VANCOMYCIN PER PHARMACY PER PROTOCOL XX ; Start 01/30/19 at 20:30 Fluconazole/ Sodium Chloride 50 ml @ 50 mls/hr Q24H IVPB Last administered on 01/31/19at 21:18; Admin Dose 50 MLS/HR; Start 01/30/19 at 20:30 Vancomycin HCl 1.5 gm/Sodium Chloride 250 ml @ 83.333 mls/ hr Q12H IVPB Last administered on 02/01/19at 11:05; Admin Dose 83.333 MLS/HR; Start 01/31/19 at 11:00 Meropenem/Sodium Chloride 50 ml @ 100 mls/hr Q12 IVPB ; Start 02/01/19 at 21:00 EUGENE ANDERSON Feb 01, 2019 15:14
[2019-02-01] MEDS ORDERED: FENTAnyl 50 MCG/ML VIAL ONE (17:02)
[2019-02-01] MEDS ORDERED: LIDOCAINE 1% (MDV) 20 ML INJ ONE (17:11)
[2019-02-01] MEDS: FLUCONAZOLE 100 MG/50 ML (PMX) 50 ML IVPB SCH (19:51)
[2019-02-01] MEDS: HYDROmorphONE 0.5 MG/0.5 ML SYG IV PRN (20:18)
[2019-02-01] MEDS: MEROPENEM 1 GM/50ML(PMX) 50 ML IVPB SCH (21:37)
[2019-02-02] VITALS (12 sets, daily range): BP systolic 131–170; BP diastolic 71–88; PULSE 78–102; RESP 19–34
[2019-02-02] MEDS: LEVALBUTEROL (NEB) 0.63 MG/3 ML AMP HHN SCH ×4 (01:33→19:52)
[2019-02-02] MEDS: MEROPENEM 1 GM/50ML(PMX) 50 ML IVPB SCH ×2 (08:43→20:52)
[2019-02-02] MEDS: ATENOLOL 50 MG TAB PO SCH ×2 (08:44→20:54)
[2019-02-02] MEDS: ENOXAPARIN 100 MG/ML SYG SC SCH ×2 (08:59→21:24)
[2019-02-02] MEDS: VANCOMYCIN HCL 1.5 GM in SOD CHLORIDE 0.9% 250 ML IVPB SCH ×2 (11:53→23:52)
--- NOTE | 2019-02-02 12:01 | PN ---
Date/Time of Note Date/Time of Note DATE: 02/02/19 TIME: 12:00 Assessment/Plan VTE Prophylaxis Risk score (from Ns)>0 risk: 7 SCD applied (from Ns): Yes Pharmacological prophylaxis: LMWH Lines/Catheters IV Catheter Type (from Nrs): Peripheral IV Urinary Cath still in place: No Assessment/Plan Hospital Course -Increased leukocytosis patient is currently on Zosyn and Flagyl, CT of the abdomen and pelvis revealed moderate ascites, questionable peritonitis or abscess increased right lower lobe infiltrate. Dr. Vázquez is following in infection disease consultation. -Possible surgical wound infection, obtain wound cx. -Right lower lobe infiltrate -S/p open Reagan reversal and colorectal low pelvic anastomosis, segmental partial colectomy, and open incarcerated incisional and parastomal hernia repairs with mesh by Dr. Art on 01/21/2019. Continue [place] and Dilaudid as needed for pain and Zofran as needed for nausea. -Stage III sigmoid colon cancer, status post surgery and chemo in 2018. -Acute kidney injury on chronic kidney disease, monitor urine output BUN and creatinine. Dr. Stuart is following in nephrology consultation. -Acute on chronic diastolic CHF -Atrial fibrillation. -Obstructive sleep apnea -History of hypertension -History of left upper extremity DVT Result Diagram: 02/02/19 0524 02/02/19 0524 Results 24hrs Laboratory Tests Test 02/02/19 05:24 White Blood Count 11.3 #H Red Blood Count 3.42 L Hemoglobin 10.6 L Hematocrit 31.8 L Mean Corpuscular Volume 93.0 Mean Corpuscular Hemoglobin 31.0 Mean Corpuscular Hemoglobin Concent 33.3 Red Cell Distribution Width 14.1 Platelet Count 419 H Mean Platelet Volume 11.0 H Immature Granulocytes % 2.100 H Neutrophils % 83.4 H Lymphocytes % 4.7 L Monocytes % 8.3 Eosinophils % 1.2 Basophils % 0.3 Nucleated Red Blood Cells % 0.0 Immature Granulocytes # 0.240 H Neutrophils # 9.4 H Lymphocytes # 0.5 L Monocytes # 0.9 Eosinophils # 0.1 Basophils # 0.0 Nucleated Red Blood Cells # 0.0 Sodium Level 135 Potassium Level 4.0 Chloride Level 107 Carbon Dioxide Level 23 Anion Gap 5 Blood Urea Nitrogen 16 Creatinine 0.87 Est Glomerular Filtrat Rate mL/min > 60 Glucose Level 143 Calcium Level 8.4 Total Bilirubin 0.2 Direct Bilirubin 0.00 Indirect Bilirubin 0.2 Aspartate Amino Transf (AST/SGOT) 29 Alanine Aminotransferase (ALT/SGPT) 22 Alkaline Phosphatase 97 Total Protein 5.3 L Albumin 2.5 L Globulin 2.80 Albumin/Globulin Ratio 0.89 Subjective 24 Hr Interval Summary Free Text/Dictation Patient complain of abdominal pain, has been eating Exam/Review of Systems Exam Vitals Vital Signs Date Temp Pulse Resp B/P (MAP) Pulse Ox O2 O2 Flow FiO2 Time Delivery Rate 02/02/19 98.1 83 28 131/71 97 11:36 (91) 02/02/19 Nasal 3.0 11:31 Cannula Intake and Output 02/01/19 02/01/19 02/02/19 1515:00 23:00 07:00 IntakeIntake Total 350 ml 650 ml OutputOutput Total 1120 ml 600 ml BalanceBalance -770 ml 50 ml Constitutional: well developed Head: normocephalic, atraumatic Neck: supple Respiratory: diminished breath sounds Cardiovascular: regular rate and rhythm Gastrointestinal: soft, non-tender Extremities: normal pulses Results Results 24hrs Laboratory Tests Test 02/02/19 05:24 White Blood Count 11.3 #H Red Blood Count 3.42 L Hemoglobin 10.6 L Hematocrit 31.8 L Mean Corpuscular Volume 93.0 Mean Corpuscular Hemoglobin 31.0 Mean Corpuscular Hemoglobin Concent 33.3 Red Cell Distribution Width 14.1 Platelet Count 419 H Mean Platelet Volume 11.0 H Immature Granulocytes % 2.100 H Neutrophils % 83.4 H Lymphocytes % 4.7 L Monocytes % 8.3 Eosinophils % 1.2 Basophils % 0.3 Nucleated Red Blood Cells % 0.0 Immature Granulocytes # 0.240 H Neutrophils # 9.4 H Lymphocytes # 0.5 L Monocytes # 0.9 Eosinophils # 0.1 Basophils # 0.0 Nucleated Red Blood Cells # 0.0 Sodium Level 135 Potassium Level 4.0 Chloride Level 107 Carbon Dioxide Level 23 Anion Gap 5 Blood Urea Nitrogen 16 Creatinine 0.87 Est Glomerular Filtrat Rate mL/min > 60 Glucose Level 143 Calcium Level 8.4 Total Bilirubin 0.2 Direct Bilirubin 0.00 Indirect Bilirubin 0.2 Aspartate Amino Transf (AST/SGOT) 29 Alanine Aminotransferase (ALT/SGPT) 22 Alkaline Phosphatase 97 Total Protein 5.3 L Albumin 2.5 L Globulin 2.80 Albumin/Globulin Ratio 0.89 Medications Medication Current Medications Miscellaneous Information (* Miscellaneous Pharmacy Order) DURAMORPH: 3.5MG EPIDU... GIVEN NEURAXIAL XX ; Start 01/21/19 at 10:00 Hydromorphone HCl (Dilaudid) 0.2 mg Q2H PRN IV .PAIN 1-5 Last administered on 01/22/19at 16:08; Admin Dose 0.2 MG; Start 01/21/19 at 12:00 Hydromorphone HCl (Dilaudid) 0.4 mg Q2H PRN IV .PAIN 6-10 Last administered on 02/01/19at 20:18; Admin Dose 0.4 MG; Start 01/21/19 at 12:00 Acetaminophen/ Hydrocodone Bitart ([place] (5/325)) 1 tab Q4H PRN PO .PAIN 4-6 Last administered on 01/25/19at 08:34; Admin Dose 1 TAB; Start 01/21/19 at 12:00 Diphenhydramine HCl (Benadryl) 25 mg Q4H PRN IV .PRURITUS; Start 01/21/19 at 12:00 Nalbuphine HCl (Nubain) 10 mg Q4H PRN IV .PRURITUS; Start 01/21/19 at 12:00 Ondansetron HCl (Zofran Inj) 4 mg Q6H PRN IV .NAUSEA/VOMITING Last administered on 01/22/19at 23:48; Admin Dose 4 MG; Start 01/21/19 at 12:00 Trimethobenzamide HCl (Tigan) 200 mg Q6H PRN IM .NAUSEA/VOMITING; Start 01/21/19 at 12:00 Zolpidem Tartrate (Ambien) 5 mg HS MAY REPEAT X 1 PRN PO .INSOMNIA; Start 01/21/19 at 12:00 Naloxone HCl (Narcan) 0.2 mg Q2M PRN IV .RESP RATE; Start 01/21/19 at 12:00 Hydralazine HCl (Apresoline) 10 mg Q4H PRN IV >150/95 Last administered on 01/24/19at 05:34; Admin Dose 10 MG; Start 01/21/19 at 14:00 Metoprolol Tartrate (Lopressor) 5 mg Q4H PRN IV HR>110 HOld SBP<100 Last administered on 01/25/19 05:11; Admin Dose 5 MG; Start 01/23/19 at 20:30 Levalbuterol (Xopenex Neb) 0.63 mg Q6H RESP THERAPY HHN Last administered on 02/02/19 08:07; Admin Dose 0.63 MG; Start 01/24/19 at 23:30 Acetaminophen (Tylenol Tab) 650 mg Q6H PRN PO MILD PAIN(1-3)OR ELEVATED TEMP Last administered on 01/29/19 23:29; Admin Dose 650 MG; Start 01/29/19 at 23:30 Al Hydrox/Mg Hydrox/Simethicone (Mag-Al Plus) 30 ml Q4H PRN PO GASTROINTESTINAL UPSET Last administered on 01/30/19 18:39; Admin Dose 30 ML; Start 01/29/19 at 23:30 Atenolol (Tenormin) 50 mg BID PO Last administered on 02/02/19 08:44; Admin Dose 50 MG; Start 01/30/19 at 21:00 Enoxaparin Sodium (Lovenox) 95 mg BID SC Last administered on 02/02/19 08:59; Admin Dose 95 MG; Start 01/30/19 at 21:00 Vancomycin HCl (Vanco Iv Per Pharmacy) VANCOMYCIN PER PHARMACY PER PROTOCOL XX ; Start 01/30/19 at 20:30 Fluconazole/ Sodium Chloride 50 ml @ 50 mls/hr Q24H IVPB Last administered on 02/01/19 19:51; Admin Dose 50 MLS/HR; Start 01/30/19 at 20:30 Vancomycin HCl 1.5 gm/Sodium Chloride 250 ml @ 83.333 mls/ hr Q12H IVPB Last administered on 02/02/19 11:53; Admin Dose 83.333 MLS/HR; Start 01/31/19 at 11:00 Meropenem/Sodium Chloride 50 ml @ 100 mls/hr Q12 IVPB Last administered on 02/02/19 08:43; Admin Dose 100 MLS/HR; Start 02/01/19 at 21:00 YESSICA CLAYTON Feb 02, 2019 12:01
--- NOTE | 2019-02-02 13:15 | CONS ---
[facility] HCIS Consult Follow-up Patient Name: Santiago Kelly Unit Number: [id number] Date of : 1960 Patient Status: Admitted Inpatient Attending Doctor: Ann Art Edit: MERCED RENNER M.D. on 02/04/19 @ 04:51 Zur[place]: I discussed the management with TECHNICIAN ANATOMIC PATHOLOGY and agree ____ Assessment/Plan Assessment/Plan Hospital Course (Demo Recall) - Sepsis 2/2 to intra-abdominal infection vs. PNA based on recent CT - S/p open Reagan reversal and colorectal low pelvic anastomosis, segmental partial colectomy, and open incarcerated incisional and parastomal hernia repairs with mesh by Dr. Art on 01/21/2019. - Stage III sigmoid colon cancer, status post prior colectomy/colostomy and chemo in 2018. - Acute kidney injury on chronic kidney disease, monitor urine output BUN and creatinine. - Acute on chronic diastolic CHF - Atrial fibrillation. - Obstructive sleep apnea - S/p colostomy reversal - Hx hypertension - Hx left upper extremity DVT Recommendations: - Continue Merrem/Flucon - D/c Vanco - ordered - F/u blood cultures 01/30/19 (NGTD), MRSA screen (in process), Abdominal wound cx (GNR and joseline), Abdominal abscess drainage (in process) - Wound pics will follow closely with you. Plan was d/w patient, CATHERINE Joel, and with Dr. Renner. Thank you Consultation Date/Type/Reason Admit Date/Time Jan 21, 2019 at 06:18 Initial Consult Date 01/30/19 Type of Consult ID Requesting Provider: ODELL PACHECO Date/Time of Note DATE: 02/02/19 TIME: 13:11 24 HR Interval Summary Free Text/Dictation Patient is c/o being unable to sleep. States "I'm so tired." C/o abdominal pain 6/10. Sob and tachypnea. Denies cough, cp, h/a, n/v/d, dysuria, pruritis, rash. per d/w RN Wisam, the patient has not been tachypneic, his RR when she measured was 22. 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 Exam/Review of Systems Exam Vitals Vital Signs Date Temp Pulse Resp B/P (MAP) Pulse Ox O2 O2 Flow FiO2 Time Delivery Rate 02/02/19 101 22 95 Nasal 3.0 13:05 Cannula 02/02/19 98.1 131/71 11:36 (91) Intake and Output 02/01/19 02/01/19 02/02/19 1515:00 23:00 07:00 IntakeIntake Total 350 ml 650 ml OutputOutput Total 1120 ml 600 ml BalanceBalance -770 ml 50 ml Allergies Coded Allergies No Known Allergy (Unverified01/30/19) Constitutional: alert, oriented, well developed, other (awake, alert, short of breath and tachypneic) Psych: anxiety, other (c/o unable to sleep) Head: normocephalic, atraumatic Eyes: nl conjunctiva, nl lids, nl sclera ENMT: nl external ears & nose, nl nasal mucosa & septum, mucosa pink and moist Neck: supple, non-tender Respiratory: clear to auscultation, diminished breath sounds, other (Short of breath, tachypneic) Cardiovascular: regular rate and rhythm, nl pulses Gastrointestinal: bowel sounds (normoactive), distended, firm, tender, other (midabdominal incision site with abbey, midline opening with slough, small amt of yellow drainage noted. R lateral abdomen with a dry blister. LLQ surgical drain containing small amt of yellow fluid with brown sediments.) Genitourinary - Male: other (no f/c) Musculoskeletal: nl extremities to inspection Extremities: normal pulses Neurological: nl mental status, nl speech, nl strength Skin: nl turgor; No rash or lesions Results Result Diagram: 02/02/19 0502/02/19523 Results 24hrs Laboratory Tests Test 02/02/19 05:24 White Blood Count 11.3 #H Red Blood Count 3.42 L Hemoglobin 10.6 L Hematocrit 31.8 L Mean Corpuscular Volume 93.0 Mean Corpuscular Hemoglobin 31.0 Mean Corpuscular Hemoglobin Concent 33.3 Red Cell Distribution Width 14.1 Platelet Count 419 H Mean Platelet Volume 11.0 H Immature Granulocytes % 2.100 H Neutrophils % 83.4 H Lymphocytes % 4.7 L Monocytes % 8.3 Eosinophils % 1.2 Basophils % 0.3 Nucleated Red Blood Cells % 0.0 Immature Granulocytes # 0.240 H Neutrophils # 9.4 H Lymphocytes # 0.5 L Monocytes # 0.9 Eosinophils # 0.1 Basophils # 0.0 Nucleated Red Blood Cells # 0.0 Sodium Level 135 Potassium Level 4.0 Chloride Level 107 Carbon Dioxide Level 23 Anion Gap 5 Blood Urea Nitrogen 16 Creatinine 0.87 Est Glomerular Filtrat Rate mL/min > 60 Glucose Level 143 Calcium Level 8.4 Total Bilirubin 0.2 Direct Bilirubin 0.00 Indirect Bilirubin 0.2 Aspartate Amino Transf (AST/SGOT) 29 Alanine Aminotransferase (ALT/SGPT) 22 Alkaline Phosphatase 97 Total Protein 5.3 L Albumin 2.5 L Globulin 2.80 Albumin/Globulin Ratio 0.89 Medications Medication Current Medications Miscellaneous Information (* Miscellaneous Pharmacy Order) DURAMORPH: 3.5MG EPIDU... GIVEN NEURAXIAL XX ; Start 01/21/19 at 10:00 Hydromorphone HCl (Dilaudid) 0.2 mg Q2H PRN IV .PAIN 1-5 Last administered on 01/22/19at 16:08; Admin Dose 0.2 MG; Start 01/21/19 at 12:00 Hydromorphone HCl (Dilaudid) 0.4 mg Q2H PRN IV .PAIN 6-10 Last administered on 02/01/19at 20:18; Admin Dose 0.4 MG; Start 01/21/19 at 12:00 Acetaminophen/ Hydrocodone Bitart ([place] (5/325)) 1 tab Q4H PRN PO .PAIN 4-6 Last administered on 01/25/19at 08:34; Admin Dose 1 TAB; Start 01/21/19 at 12:00 Diphenhydramine HCl (Benadryl) 25 mg Q4H PRN IV .PRURITUS; Start 01/21/19 at 12:00 Nalbuphine HCl (Nubain) 10 mg Q4H PRN IV .PRURITUS; Start 01/21/19 at 12:00 Ondansetron HCl (Zofran Inj) 4 mg Q6H PRN IV .NAUSEA/VOMITING Last administered on 01/22/19 23:48; Admin Dose 4 MG; Start 01/21/19 at 12:00 Trimethobenzamide HCl (Tigan) 200 mg Q6H PRN IM .NAUSEA/VOMITING; Start 01/21/19 at 12:00 Zolpidem Tartrate (Ambien) 5 mg HS MAY REPEAT X 1 PRN PO .INSOMNIA; Start 01/21/19 at 12:00 Naloxone HCl (Narcan) 0.2 mg Q2M PRN IV .RESP RATE; Start 01/21/19 at 12:00 Hydralazine HCl (Apresoline) 10 mg Q4H PRN IV >150/95 Last administered on 01/24/19 05:34; Admin Dose 10 MG; Start 01/21/19 at 14:00 Metoprolol Tartrate (Lopressor) 5 mg Q4H PRN IV HR>110 HOld SBP<100 Last administered on 01/25/19 05:11; Admin Dose 5 MG; Start 01/23/19 at 20:30 Levalbuterol (Xopenex Neb) 0.63 mg Q6H RESP THERAPY HHN Last administered on 13:05; Admin Dose 0.63 MG; Start 01/24/19 at 23:30 Acetaminophen (Tylenol Tab) 650 mg Q6H PRN PO MILD PAIN(1-3)OR ELEVATED TEMP Last administered on 01/29/19 23:29; Admin Dose 650 MG; Start 01/29/19 at 23:30 Al Hydrox/Mg Hydrox/Simethicone (Mag-Al Plus) 30 ml Q4H PRN PO GASTROINTESTINAL UPSET Last administered on 01/30/19 18:39; Admin Dose 30 ML; Start 01/29/19 at 23:30 Atenolol (Tenormin) 50 mg BID PO Last administered on 02/02/19 08:44; Admin Dose 50 MG; Start 01/30/19 at 21:00 Enoxaparin Sodium (Lovenox) 95 mg BID SC Last administered on 02/02/19 08:59; Admin Dose 95 MG; Start 01/30/19 at 21:00 Vancomycin HCl (Vanco Iv Per Pharmacy) VANCOMYCIN PER PHARMACY PER PROTOCOL XX ; Start 01/30/19 at 20:30 Fluconazole/ Sodium Chloride 50 ml @ 50 mls/hr Q24H IVPB Last administered on 02/01/19at 19:51; Admin Dose 50 MLS/HR; Start 01/30/19 at 20:30 Vancomycin HCl 1.5 gm/Sodium Chloride 250 ml @ 83.333 mls/ hr Q12H IVPB Last administered on 02/02/19at 11:53; Admin Dose 83.333 MLS/HR; Start 01/31/19 at 11:00 Meropenem/Sodium Chloride 50 ml @ 100 mls/hr Q12 IVPB Last administered on 02/02/19at 08:43; Admin Dose 100 MLS/HR; Start 02/01/19 at 21:00 Miscellaneous Information (*Rx Drug Level Order Reminder*) VANCO TROUGH ON @ 000 1000 ONCE XX ; Start 02/03/19 at 10:00; Stop 02/03/19 at 10:01 JUSTYN WORLEY TECHNICIAN ANATOMIC PATHOLOGY Feb 02, 2019 13:15
[2019-02-02] MEDS: HYDROmorphONE 0.5 MG/0.5 ML SYG IV PRN (13:39)
--- NOTE | 2019-02-02 13:59 | CONS ---
Consult Date/Type/Reason Admit Date/Time Jan 21, 2019 at 06:18 Initial Consult Date Requesting Provider: ODELL PACHECO Date/Time of Note DATE: 02/02/19 TIME: 13:57 Subjective NO acute events - HR better now - no CP noted - family at bedside - aware of care. ROS: No fever, no chills, no nausea, no vomiting, no diarrhea/constipation No recent weight changes No chest pain, no PND, no orthopnea - mild SOB No dizziness, blurred vision No thirst, no heat or cold intolerance Objective Vitals Vital Signs Date Temp Pulse Resp B/P (MAP) Pulse Ox O2 O2 Flow FiO2 Time Delivery Rate 02/02/19 101 22 95 Nasal 3.0 13:05 Cannula 02/02/19 98.1 131/71 11:36 (91) Intake and Output 02/01/19 02/01/19 02/02/19 1515:00 23:00 07:00 IntakeIntake Total 350 ml 650 ml OutputOutput Total 1120 ml 600 ml BalanceBalance -770 ml 50 ml Exam General: WN/WD/NAD, AOx 1-2 HEENT: Unicetric/atraumatic/EOMI (does not follow commands) NECK: JVD elevated, no thyromegaly Lymph: no lymphadenopathy HEART: regular with no S3, II/ systolic murmur at apex LUNGS: Coarse sounds ABD: soft, NT, ND, +BS : Intact Neuro: non focal SKIN: chronic changes EXT: trace edema Results/Medications Result Diagram: 02/02/19 0524 02/02/19 0524 Results 24 hrs Laboratory Tests Test 02/02/19 05:24 White Blood Count 11.3 #H Red Blood Count 3.42 L Hemoglobin 10.6 L Hematocrit 31.8 L Mean Corpuscular Volume 93.0 Mean Corpuscular Hemoglobin 31.0 Mean Corpuscular Hemoglobin Concent 33.3 Red Cell Distribution Width 14.1 Platelet Count 419 H Mean Platelet Volume 11.0 H Immature Granulocytes % 2.100 H Neutrophils % 83.4 H Lymphocytes % 4.7 L Monocytes % 8.3 Eosinophils % 1.2 Basophils % 0.3 Nucleated Red Blood Cells % 0.0 Immature Granulocytes # 0.240 H Neutrophils # 9.4 H Lymphocytes # 0.5 L Monocytes # 0.9 Eosinophils # 0.1 Basophils # 0.0 Nucleated Red Blood Cells # 0.0 Sodium Level 135 Potassium Level 4.0 Chloride Level 107 Carbon Dioxide Level 23 Anion Gap 5 Blood Urea Nitrogen 16 Creatinine 0.87 Est Glomerular Filtrat Rate mL/min > 60 Glucose Level 143 Calcium Level 8.4 Total Bilirubin 0.2 Direct Bilirubin 0.00 Indirect Bilirubin 0.2 Aspartate Amino Transf (AST/SGOT) 29 Alanine Aminotransferase (ALT/SGPT) 22 Alkaline Phosphatase 97 Total Protein 5.3 L Albumin 2.5 L Globulin 2.80 Albumin/Globulin Ratio 0.89 Home Meds Active Scripts Carvedilol* (Carvedilol*) 25 Mg Tablet, 25 MG PO BID for 30 Days, TAB Prov:ODELL PACHECO 01/15/18 Furosemide* (Furosemide*) 20 Mg Tablet, 20 MG PO DAILY for 30 Days, TAB Prov:ODELL PACHECO 01/15/18 Reported Medications Apixaban* (Eliquis*) 5 Mg Tablet, 5 MG PO BID, TAB 11/02/18 Losartan Potassium* (Losartan Potassium*) 100 Mg Tablet, 100 MG PO DAILY, TAB 11/02/18 Nifedipine* (Nifedipine ER*) 60 Mg Tablet.sa, 60 MG PO BID, TAB.SA 11/02/18 Atorvastatin Calcium* (Atorvastatin Calcium*) 20 Mg Tablet, 20 MG PO QHS, #30 TAB 01/07/18 Medications Current Medications Miscellaneous Information (* Miscellaneous Pharmacy Order) DURAMORPH: 3.5MG EPIDU... GIVEN NEURAXIAL XX ; Start 01/21/19 at 10:00 Hydromorphone HCl (Dilaudid) 0.2 mg Q2H PRN IV .PAIN 1-5 Last administered on 02/02/19at 13:39; Admin Dose 0.2 MG; Start 01/21/19 at 12:00 Hydromorphone HCl (Dilaudid) 0.4 mg Q2H PRN IV .PAIN 6-10 Last administered on 02/01/19at 20:18; Admin Dose 0.4 MG; Start 01/21/19 at 12:00 Acetaminophen/ Hydrocodone Bitart ([place] (5/325)) 1 tab Q4H PRN PO .PAIN 4-6 Last administered on 01/25/19at 08:34; Admin Dose 1 TAB; Start 01/21/19 at 12:00 Diphenhydramine HCl (Benadryl) 25 mg Q4H PRN IV .PRURITUS; Start 01/21/19 at 12:00 Nalbuphine HCl (Nubain) 10 mg Q4H PRN IV .PRURITUS; Start 01/21/19 at 12:00 Ondansetron HCl (Zofran Inj) 4 mg Q6H PRN IV .NAUSEA/VOMITING Last administered on 01/22/19 23:48; Admin Dose 4 MG; Start 01/21/19 at 12:00 Trimethobenzamide HCl (Tigan) 200 mg Q6H PRN IM .NAUSEA/VOMITING; Start 01/21/19 at 12:00 Zolpidem Tartrate (Ambien) 5 mg HS MAY REPEAT X 1 PRN PO .INSOMNIA; Start 01/21/19 at 12:00 Naloxone HCl (Narcan) 0.2 mg Q2M PRN IV .RESP RATE; Start 01/21/19 at 12:00 Hydralazine HCl (Apresoline) 10 mg Q4H PRN IV >150/95 Last administered on 01/24/19 05:34; Admin Dose 10 MG; Start 01/21/19 at 14:00 Metoprolol Tartrate (Lopressor) 5 mg Q4H PRN IV HR>110 HOld SBP<100 Last administered on 01/25/19 05:11; Admin Dose 5 MG; Start 01/23/19 at 20:30 Levalbuterol (Xopenex Neb) 0.63 mg Q6H RESP THERAPY HHN Last administered on 02/02/19 13:05; Admin Dose 0.63 MG; Start 01/24/19 at 23:30 Acetaminophen (Tylenol Tab) 650 mg Q6H PRN PO MILD PAIN(1-3)OR ELEVATED TEMP Last administered on 01/29/19 23:29; Admin Dose 650 MG; Start 01/29/19 at 23:30 Al Hydrox/Mg Hydrox/Simethicone (Mag-Al Plus) 30 ml Q4H PRN PO GASTROINTESTINAL UPSET Last administered on 01/30/19 18:39; Admin Dose 30 ML; Start 01/29/19 at 23:30 Atenolol (Tenormin) 50 mg BID PO Last administered on 4/20/19at 08:44; Admin Dose 50 MG; Start 01/30/19 at 21:00 Enoxaparin Sodium (Lovenox) 95 mg BID SC Last administered on 02/02/19at 08:59; Admin Dose 95 MG; Start 01/30/19 at 21:00 Vancomycin HCl (Vanco Iv Per Pharmacy) VANCOMYCIN PER PHARMACY PER PROTOCOL XX ; Start 01/30/19 at 20:30 Fluconazole/ Sodium Chloride 50 ml @ 50 mls/hr Q24H IVPB Last administered on 02/01/19at 19:51; Admin Dose 50 MLS/HR; Start 01/30/19 at 20:30 Vancomycin HCl 1.5 gm/Sodium Chloride 250 ml @ 83.333 mls/ hr Q12H IVPB Last administered on 02/02/19at 11:53; Admin Dose 83.333 MLS/HR; Start 01/31/19 at 11:00 Meropenem/Sodium Chloride 50 ml @ 100 mls/hr Q12 IVPB Last administered on 02/02/19at 08:43; Admin Dose 100 MLS/HR; Start 02/01/19 at 21:00 Miscellaneous Information (*Rx Drug Level Order Reminder*) VANCO TROUGH ON @ 000 1000 ONCE XX ; Start 02/03/19 at 10:00; Stop 02/03/19 at 10:01 Assessment/Plan Hospital Course (Demo Recall) 1. Tachycardia, at this time sinus tachycardia in the setting of significant pain, fevers, status post surgery. NL EF by echo 60-65. ON had onset of AF with RVR - now rate better controlled. 2. Possible congestive heart failure by chest x-ray with the patient having the onset of acute renal failure at this time. Improved CHF. 3. Hypertension, mildly elevated. BP well optomized nw. 4. Postoperative status post reversal colostomy - GI team follows,. 5. Fevers postop - resolved. 6. Renal failure, acute.-improved now 7. History of colon carcinoma status post prior colectomy with colostomy. 8. Hypernatremia, improved 9. Hypomagnesemia-improved 10. Leukocytosis. On anti-Bx, better overall. SUSSY ANTHONY MD Feb 02, 2019 13:59
[2019-02-02] MEDS: FLUCONAZOLE 100 MG/50 ML (PMX) 50 ML IVPB SCH (20:52)
--- NOTE | 2019-02-02 21:07 | PN ---
DATE: 02/02/2019 Status post laparotomy, reversal of the end colostomy, repair of the parastomal hernia. The patient has been complicated to some extent post-operation with abdominal distention and some infection of th e subcutaneous incisional wound. SUBJECTIVE: The patient complains of shortness of breath. Of course, the patient's son states that he has been short of breath since the past several days. OBJECTIVE: GENERAL: Awake, alert, oriented, lying down in the bed in semi-sitting position. VITAL SIGNS: Temperature recording maximum today 98.1, heart rate fluctuating between 83 and 101. R espiratory rate recorded between 22 and 28, blood pressure 140/88, saturation 95% on 3 liters nasal c annula. Clinically, there is tachypnea, awake, alert, does not complain of any pain. Symmetrical ex pansion of the chest. LUNGS: Decreased breathing sound at bases, harsh breathing sounds here and there. HEART: Atrial fibrillation. ABDOMEN: Still is very distended, protruded. Bowel sounds are present (the patient has had bowel mo vement). Wound dressing was changed and the wound looks better. EXTREMITIES: Lower extremity, there is 1+ to 2+ pitting edema. LABORATORY DATA: Today sodium 135, potassium 4, BUN, creatinine 16 and 0.87. Albumin is 2.5. Total protein is 5.3. Hematology: WBC has been normalizing in past several days, WBC 1300 with 83% segme nted, hemoglobin 10.6, hematocrit 31.8. IMAGING STUDIES: The last chest x-ray was on the 15th, 5 days ago. IMPRESSION: A 59-year-old male who underwent reversal of colostomy and repair of the parastomal frank ia. PLAN: Postop, the patient has developed subcutaneous incisional wound infection, the wound has been opened up by the surgeon before. The patient has been having a little bit of renal problem as well. So the other colleagues including infectious disease, specialist, manufacturing baker, chainstitch pants outseamer and int ernmn medicine on board managing the patient's other problems. From surgical point of view, the patient has been eating and has been having bowel movement. The abd ominal subcutaneous wound infection required removing of the abbey and opening the wound, which has been done and is being treated with wet-to-dry saline dressing change per day. I am not sure the ca use of atrial fibrillation and shortness of breath. I am going to order a stat chest x-ray and cardi ology also has seen the patient today and other medical specialties are following the patient. Dictated By: LIAT LOOMIS MD PS/NTS Conf#: [id number] DID#: [id number] CC: JACOB FERNANDEZ MD; ANDREY ZHENG MD;*EndCC*
[2019-02-03] VITALS (11 sets, daily range): BP systolic 127–175; BP diastolic 73–83; PULSE 83–114; RESP 19–28
[2019-02-03] MEDS: LEVALBUTEROL (NEB) 0.63 MG/3 ML AMP HHN SCH ×4 (01:12→19:34)
[2019-02-03] MEDS: ATENOLOL 50 MG TAB PO SCH ×2 (08:18→21:09)
[2019-02-03] MEDS: MEROPENEM 1 GM/50ML(PMX) 50 ML IVPB SCH ×2 (08:19→21:10)
[2019-02-03] MEDS: ENOXAPARIN 100 MG/ML SYG SC SCH ×2 (08:26→21:21)
--- NOTE | 2019-02-03 10:54 | CONS ---
Consultation Date/Type/Reason Admit Date/Time Jan 21, 2019 at 06:18 Initial Consult Date Type of Consult Cardiology Requesting Provider: ODELL PACHECO Date/Time of Note DATE: 02/03/19 TIME: 10:54 24 HR Interval Summary Free Text/Dictation VS review stable Exam/Review of Systems Vital Signs Vitals Vital Signs Date Temp Pulse Resp B/P (MAP) Pulse Ox O2 O2 Flow FiO2 Time Delivery Rate 02/03/19 Nasal 3.0 09:36 Cannula 02/03/19 113 08:00 02/03/19 20 94 07:41 02/03/19 98.5 131/78 07:20 (95) Intake and Output 02/02/19 02/02/19 02/03/19 1515:00 23:00 07:00 IntakeIntake Total 950 ml 400 ml OutputOutput Total 1205 ml 1255 ml BalanceBalance -255 ml -855 ml Labs Result Diagram: 02/03/19 0549 02/03/19 0549 Results 24hrs Laboratory Tests Test 02/03/19 05:49 White Blood Count 8.5 # Red Blood Count 3.49 L Hemoglobin 10.5 L Hematocrit 32.5 L Mean Corpuscular Volume 93.1 Mean Corpuscular Hemoglobin 30.1 Mean Corpuscular Hemoglobin Concent 32.3 Red Cell Distribution Width 13.9 Platelet Count 434 H Mean Platelet Volume 10.9 H Immature Granulocytes % 2.000 H Neutrophils % 80.7 H Lymphocytes % 7.0 L Monocytes % 8.6 Eosinophils % 1.2 Basophils % 0.5 Nucleated Red Blood Cells % 0.0 Immature Granulocytes # 0.170 H Neutrophils # 6.8 Lymphocytes # 0.6 L Monocytes # 0.7 Eosinophils # 0.1 Basophils # 0.0 Nucleated Red Blood Cells # 0.0 Sodium Level 135 Potassium Level 4.3 Chloride Level 107 Carbon Dioxide Level 22 Anion Gap 6 Blood Urea Nitrogen 14 Creatinine 0.76 Est Glomerular Filtrat Rate mL/min > 60 Glucose Level 161 Calcium Level 8.5 Total Bilirubin 0.4 Direct Bilirubin 0.00 Indirect Bilirubin 0.4 Aspartate Amino Transf (AST/SGOT) 35 Alanine Aminotransferase (ALT/SGPT) 21 Alkaline Phosphatase 103 Total Protein 5.7 L Albumin 2.5 L Globulin 3.20 Albumin/Globulin Ratio 0.78 Medications Medications Current Medications Miscellaneous Information (* Miscellaneous Pharmacy Order) DURAMORPH: 3.5MG EPIDU... GIVEN NEURAXIAL XX ; Start 01/21/19 at 10:00 Hydromorphone HCl (Dilaudid) 0.2 mg Q2H PRN IV .PAIN 1-5 Last administered on 02/02/19at 13:39; Admin Dose 0.2 MG; Start 01/21/19 at 12:00 Hydromorphone HCl (Dilaudid) 0.4 mg Q2H PRN IV .PAIN 6-10 Last administered on 02/01/19at 20:18; Admin Dose 0.4 MG; Start 01/21/19 at 12:00 Acetaminophen/ Hydrocodone Bitart ([place] (5/325)) 1 tab Q4H PRN PO .PAIN 4-6 Last administered on 01/25/19at 08:34; Admin Dose 1 TAB; Start 01/21/19 at 12:00 Diphenhydramine HCl (Benadryl) 25 mg Q4H PRN IV .PRURITUS; Start 01/21/19 at 12:00 Nalbuphine HCl (Nubain) 10 mg Q4H PRN IV .PRURITUS; Start 01/21/19 at 12:00 Ondansetron HCl (Zofran Inj) 4 mg Q6H PRN IV .NAUSEA/VOMITING Last administered on 01/22/19at 23:48; Admin Dose 4 MG; Start 01/21/19 at 12:00 Trimethobenzamide HCl (Tigan) 200 mg Q6H PRN IM .NAUSEA/VOMITING; Start 01/21/19 at 12:00 Zolpidem Tartrate (Ambien) 5 mg HS MAY REPEAT X 1 PRN PO .INSOMNIA; Start 01/21/19 at 12:00 Naloxone HCl (Narcan) 0.2 mg Q2M PRN IV .RESP RATE; Start 01/21/19 at 12:00 Hydralazine HCl (Apresoline) 10 mg Q4H PRN IV >150/95 Last administered on 01/24/19at 05:34; Admin Dose 10 MG; Start 01/21/19 at 14:00 Metoprolol Tartrate (Lopressor) 5 mg Q4H PRN IV HR>110 HOld SBP<100 Last administered on 01/25/19at 05:11; Admin Dose 5 MG; Start 01/23/19 at 20:30 Levalbuterol (Xopenex Neb) 0.63 mg Q6H RESP THERAPY HHN Last administered on 02/03/19 07:34; Admin Dose 0.63 MG; Start 01/24/19 at 23:30 Acetaminophen (Tylenol Tab) 650 mg Q6H PRN PO MILD PAIN(1-3)OR ELEVATED TEMP Last administered on 01/29/19 23:29; Admin Dose 650 MG; Start 01/29/19 at 23:30 Al Hydrox/Mg Hydrox/Simethicone (Mag-Al Plus) 30 ml Q4H PRN PO GASTROINTESTINAL UPSET Last administered on 01/30/19 18:39; Admin Dose 30 ML; Start 01/29/19 at 23:30 Atenolol (Tenormin) 50 mg BID PO Last administered on 02/03/19 08:18; Admin Dose 50 MG; Start 01/30/19 at 21:00 Enoxaparin Sodium (Lovenox) 95 mg BID SC Last administered on 02/03/19 08:26; Admin Dose 95 MG; Start 01/30/19 at 21:00 Vancomycin HCl (Vanco Iv Per Pharmacy) VANCOMYCIN PER PHARMACY PER PROTOCOL XX ; Start 01/30/19 at 20:30 Fluconazole/ Sodium Chloride 50 ml @ 50 mls/hr Q24H IVPB Last administered on 02/02/19 20:52; Admin Dose 50 MLS/HR; Start 01/30/19 at 20:30 Vancomycin HCl 1.5 gm/Sodium Chloride 250 ml @ 83.333 mls/ hr Q12H IVPB Last administered on 02/02/19at 23:52; Admin Dose 83.333 MLS/HR; Start 01/31/19 at 1 1:00 Meropenem/Sodium Chloride 50 ml @ 100 mls/hr Q12 IVPB Last administered on 02/03/19 08:19; Admin Dose 100 MLS/HR; Start 02/01/19 at 21:00 SUSSY ANTHONY MD Feb 03, 2019 10:54
--- NOTE | 2019-02-03 11:29 | CONS ---
[facility] HCIS Consult Follow-up Patient Name: Santiago Kelly Unit Number: [id number] Date of : 1960 Patient Status: Admitted Inpatient Attending Doctor: Ann Art Edit: MERCED RENNER M.D. on 02/04/19 @ 04:53 [place]: I discussed the management with [employer] SUPERVISOR and agree ____ Assessment/Plan Assessment/Plan Hospital Course (Demo Recall) - Sepsis 2/2 to intra-abdominal infection vs. PNA based on recent CT - S/p open Reagan reversal and colorectal low pelvic anastomosis, segmental partial colectomy, and open incarcerated incisional and parastomal hernia repairs with mesh by Dr. Art on 01/21/2019. - Abdominal wound culture 01/30/19 grew pseudomonas and joseline albicans, abscess culture 01/31/19 growing GNR and joseline albicans - Stage III sigmoid colon cancer, status post prior colectomy/colostomy and chemo in 2018. - Acute kidney injury on chronic kidney disease, monitor urine output BUN and creatinine. - Acute on chronic diastolic CHF - Atrial fibrillation. - Obstructive sleep apnea - S/p colostomy reversal - Hx hypertension - Hx left upper extremity DVT Recommendations: - Continue Merrem/Flucon - D/c Vanco - ordered - F/u blood cultures 01/30/19 (NGTD), Abdominal abscess drainage (GNR and joseline) - Wound pics - Continue local wound care. will follow closely with you. Plan was d/w patient, and with Dr. Renner. Thank you Consultation Date/Type/Reason Admit Date/Time Jan 21, 2019 at 06:18 Initial Consult Date 01/30/19 Type of Consult ID Requesting Provider: ODELL PACHECO Date/Time of Note DATE: 02/03/19 TIME: 11:23 24 HR Interval Summary Free Text/Dictation Per patient's nurse, when he stood up this morning to use the restroom for a BM, a large amount of stool came out from the patient's Left ostomy site. She covered it with a colostomy bag. Now it is draining reddish fluid. She states this happened after breakfast, and he also had a BM in the bathroom. Exam/Review of Systems Exam Vitals Vital Signs Date Temp Pulse Resp B/P (MAP) Pulse Ox O2 O2 Flow FiO2 Time Delivery Rate 02/03/19 Nasal 3.0 09:36 Cannula 02/03/19 113 08:00 02/03/19 20 94 07:41 02/03/19 98.5 131/78 07:20 (95) Intake and Output 02/02/19 02/02/19 02/03/19 1515:00 23:00 07:00 IntakeIntake Total 950 ml 400 ml OutputOutput Total 1205 ml 1255 ml BalanceBalance -255 ml -855 ml Allergies Coded Allergies No Known Allergy (Unverified01/30/19) Exam Constitutional: alert, oriented, well developed, other (awake, alert, short of breath and tachypneic) Psych: anxiety, other (c/o unable to sleep) Head: normocephalic, atraumatic Eyes: nl conjunctiva, nl lids, nl sclera ENMT: nl external ears & nose, nl nasal mucosa & septum, mucosa pink and moist (no thrush) Neck: supple, non-tender Respiratory: diminished breath sounds, wheezing (bilaterally), other (Short of breath, tachypneic) Cardiovascular: regular rate and rhythm, nl pulses Gastrointestinal: bowel sounds (normoactive), distended, firm, tender, other (midabdominal incision site with abbey, midline opening with slough, small amt of yellow drainage noted. R lateral abdomen with a dry blister. LUQ ostomy site draining serosanguinous fluid with small amt of purulent looking fluid mixed in, LLQ surgical drain containing small amt of yellow/brown fluid) Genitourinary - Male: other (no f/c) Musculoskeletal: nl extremities to inspection Extremities: normal pulses Neurological: nl mental status, nl speech, nl strength Skin: nl turgor; No rash or lesions Results Result Diagram: 02/03/19 0549 02/03/19 1029 Results 24hrs Laboratory Tests Test 02/03/19 05:49 02/03/19 10:29 White Blood Count 8.5 # Red Blood Count 3.49 L Hemoglobin 10.5 L Hematocrit 32.5 L Mean Corpuscular Volume 93.1 Mean Corpuscular Hemoglobin 30.1 Mean Corpuscular Hemoglobin Concent 32.3 Red Cell Distribution Width 13.9 Platelet Count 434 H Mean Platelet Volume 10.9 H Immature Granulocytes % 2.000 H Neutrophils % 80.7 H Lymphocytes % 7.0 L Monocytes % 8.6 Eosinophils % 1.2 Basophils % 0.5 Nucleated Red Blood Cells % 0.0 Immature Granulocytes # 0.170 H Neutrophils # 6.8 Lymphocytes # 0.6 L Monocytes # 0.7 Eosinophils # 0.1 Basophils # 0.0 Nucleated Red Blood Cells # 0.0 Sodium Level 135 Potassium Level 4.3 Chloride Level 107 Carbon Dioxide Level 22 Anion Gap 6 Blood Urea Nitrogen 14 14 Creatinine 0.76 0.76 Est Glomerular Filtrat Rate mL/min > 60 Glucose Level 161 Calcium Level 8.5 Total Bilirubin 0.4 Direct Bilirubin 0.00 Indirect Bilirubin 0.4 Aspartate Amino Transf (AST/SGOT) 35 Alanine Aminotransferase (ALT/SGPT) 21 Alkaline Phosphatase 103 Total Protein 5.7 L Albumin 2.5 L Globulin 3.20 Albumin/Globulin Ratio 0.78 Vancomycin Level Trough 16.7 Imaging Imaging CXR 02/02/19 IMPRESSION: Hypoinflation of the lungs and bibasilar atelectasis/infiltrates again seen. Moderate right pleural effusion. Enlargement of the cardiac silhouette again seen. Moderate pericardial effusion seen on CT. Small left pleural effusion again seen. Medications Medication Current Medications Miscellaneous Information (* Miscellaneous Pharmacy Order) DURAMORPH: 3.5MG EPIDU... GIVEN NEURAXIAL XX ; Start 01/21/19 at 10:00 Hydromorphone HCl (Dilaudid) 0.2 mg Q2H PRN IV .PAIN 1-5 Last administered on 02/02/19at 13:39; Admin Dose 0.2 MG; Start 01/21/19 at 12:00 Hydromorphone HCl (Dilaudid) 0.4 mg Q2H PRN IV .PAIN 6-10 Last administered on 02/01/19at 20:18; Admin Dose 0.4 MG; Start 01/21/19 at 12:00 Acetaminophen/ Hydrocodone Bitart ([place] (5/325)) 1 tab Q4H PRN PO .PAIN 4-6 Last administered on 01/25/19 08:34; Admin Dose 1 TAB; Start 01/21/19 at 12:00 Diphenhydramine HCl (Benadryl) 25 mg Q4H PRN IV .PRURITUS; Start 01/21/19 at 12:00 Nalbuphine HCl (Nubain) 10 mg Q4H PRN IV .PRURITUS; Start 01/21/19 at 12:00 Ondansetron HCl (Zofran Inj) 4 mg Q6H PRN IV .NAUSEA/VOMITING Last administered on 01/22/19 23:48; Admin Dose 4 MG; Start 01/21/19 at 12:00 Trimethobenzamide HCl (Tigan) 200 mg Q6H PRN IM .NAUSEA/VOMITING; Start 01/21/19 at 12:00 Zolpidem Tartrate (Ambien) 5 mg HS MAY REPEAT X 1 PRN PO .INSOMNIA; Start 01/21/19 at 12:00 Naloxone HCl (Narcan) 0.2 mg Q2M PRN IV .RESP RATE; Start 01/21/19 at 12:00 Hydralazine HCl (Apresoline) 10 mg Q4H PRN IV >150/95 Last administered on 01/24/19 05:34; Admin Dose 10 MG; Start 01/21/19 at 14:00 Metoprolol Tartrate (Lopressor) 5 mg Q4H PRN IV HR>110 HOld SBP<100 Last administered on 01/25/19at 05:11; Admin Dose 5 MG; Start 01/23/19 at 20:30 Levalbuterol (Xopenex Neb) 0.63 mg Q6H RESP THERAPY HHN Last administered on 02/03/19 07:34; Admin Dose 0.63 MG; Start 01/24/19 at 23:30 Acetaminophen (Tylenol Tab) 650 mg Q6H PRN PO MILD PAIN(1-3)OR ELEVATED TEMP Last administered on 01/29/19 23:29; Admin Dose 650 MG; Start 01/29/19 at 23:30 Al Hydrox/Mg Hydrox/Simethicone (Mag-Al Plus) 30 ml Q4H PRN PO GASTROINTESTINAL UPSET Last administered on 01/30/19 18:39; Admin Dose 30 ML; Start 01/29/19 at 23:30 Atenolol (Tenormin) 50 mg BID PO Last administered on 02/03/19at 08:18; Admin Dose 50 MG; Start 01/30/19 at 21:00 Enoxaparin Sodium (Lovenox) 95 mg BID SC Last administered on 02/03/19 08:26; Admin Dose 95 MG; Start 01/30/19 at 21:00 Vancomycin HCl (Vanco Iv Per Pharmacy) VANCOMYCIN PER PHARMACY PER PROTOCOL XX ; Start 01/30/19 at 20:30 Fluconazole/ Sodium Chloride 50 ml @ 50 mls/hr Q24H IVPB Last administered on 02/02/19at 20:52; Admin Dose 50 MLS/HR; Start 01/30/19 at 20:30 Vancomycin HCl 1.5 gm/Sodium Chloride 250 ml @ 83.333 mls/ hr Q12H IVPB Last administered on 02/02/19at 23:52; Admin Dose 83.333 MLS/HR; Start 01/31/19 at 11:00 Meropenem/Sodium Chloride 50 ml @ 100 mls/hr Q12 IVPB Last administered on 02/03/19 08:19; Admin Dose 100 MLS/HR; Start 02/01/19 at 21:00 JUSTYN WORLEY NP Feb 03, 2019 11:29
--- NOTE | 2019-02-03 12:09 | PN ---
Date/Time of Note Date/Time of Note DATE: 02/03/19 TIME: 12:09 Assessment/Plan VTE Prophylaxis Risk score (from Ns)>0 risk: 7 SCD applied (from Ns): Yes Pharmacological prophylaxis: LMWH Lines/Catheters IV [facility]ter [facility]from [facility] Saline Lock Urinary Cath still in place: No Assessment/Plan Hospital Course -Increased leukocytosis patient is currently on Zosyn and Flagyl, CT of the abdomen and pelvis revealed moderate ascites, questionable peritonitis or abscess increased right lower lobe infiltrate. Dr. Vázquez is following in infection disease consultation. -Possible surgical wound infection, obtain wound cx. -Right lower lobe infiltrate -S/p open Reagan reversal and colorectal low pelvic anastomosis, segmental partial colectomy, and open incarcerated incisional and parastomal hernia repairs with mesh by Dr. Art on 01/21/2019. Continue Catherine and Dilaudid as needed for pain and Zofran as needed for nausea. -Stage III sigmoid colon cancer, status post surgery and chemo in 2018. -Acute kidney injury on chronic kidney disease, monitor urine output BUN and creatinine. Dr. Stuart is following in nephrology consultation. -Acute on chronic diastolic CHF -Atrial fibrillation. -Obstructive sleep apnea -History of hypertension -History of left upper extremity DVT Result Diagram: 02/03/19 0549 02/03/19 1029 Results 24hrs Laboratory Tests Test 02/03/19 05:49 02/03/19 10:29 White Blood Count 8.5 # Red Blood Count 3.49 L Hemoglobin 10.5 L Hematocrit 32.5 L Mean Corpuscular Volume 93.1 Mean Corpuscular Hemoglobin 30.1 Mean Corpuscular Hemoglobin Concent 32.3 Red Cell Distribution Width 13.9 Platelet Count 434 H Mean Platelet Volume 10.9 H Immature Granulocytes % 2.000 H Neutrophils % 80.7 H Lymphocytes % 7.0 L Monocytes % 8.6 Eosinophils % 1.2 Basophils % 0.5 Nucleated Red Blood Cells % 0.0 Immature Granulocytes # 0.170 H Neutrophils # 6.8 Lymphocytes # 0.6 L Monocytes # 0.7 Eosinophils # 0.1 Basophils # 0.0 Nucleated Red Blood Cells # 0.0 Sodium Level 135 Potassium Level 4.3 Chloride Level 107 Carbon Dioxide Level 22 Anion Gap 6 Blood Urea Nitrogen 14 14 Creatinine 0.76 0.76 Est Glomerular Filtrat Rate mL/min > 60 Glucose Level 161 Calcium Level 8.5 Total Bilirubin 0.4 Direct Bilirubin 0.00 Indirect Bilirubin 0.4 Aspartate Amino Transf (AST/SGOT) 35 Alanine Aminotransferase (ALT/SGPT) 21 Alkaline Phosphatase 103 Total Protein 5.7 L Albumin 2.5 L Globulin 3.20 Albumin/Globulin Ratio 0.78 Vancomycin Level Trough 16.7 Subjective 24 Hr Interval Summary Free Text/Dictation Patient complain of abdominal pain Exam/Review of Systems Exam Vitals Vital Signs Date Temp Pulse Resp B/P (MAP) Pulse Ox O2 O2 Flow FiO2 Time Delivery Rate 02/03/19 98.5 86 22 175/83 96 12:01 (113) 02/03/19 Nasal 3.0 09:36 Cannula Intake and Output 02/02/19 02/02/19 02/03/19 1515:00 23:00 07:00 IntakeIntake Total 950 ml 400 ml OutputOutput Total 1205 ml 1255 ml BalanceBalance -255 ml -855 ml Constitutional: well developed Head: normocephalic, atraumatic Neck: supple Respiratory: diminished breath sounds Cardiovascular: regular rate and rhythm Gastrointestinal: firm, tender Extremities: normal pulses Results Results 24hrs Laboratory Tests Test 02/03/19 05:49 02/03/19 10:29 White Blood Count 8.5 # Red Blood Count 3.49 L Hemoglobin 10.5 L Hematocrit 32.5 L Mean Corpuscular Volume 93.1 Mean Corpuscular Hemoglobin 30.1 Mean Corpuscular Hemoglobin Concent 32.3 Red Cell Distribution Width 13.9 Platelet Count 434 H Mean Platelet Volume 10.9 H Immature Granulocytes % 2.000 H Neutrophils % 80.7 H Lymphocytes % 7.0 L Monocytes % 8.6 Eosinophils % 1.2 Basophils % 0.5 Nucleated Red Blood Cells % 0.0 Immature Granulocytes # 0.170 H Neutrophils # 6.8 Lymphocytes # 0.6 L Monocytes # 0.7 Eosinophils # 0.1 Basophils # 0.0 Nucleated Red Blood Cells # 0.0 Sodium Level 135 Potassium Level 4.3 Chloride Level 107 Carbon Dioxide Level 22 Anion Gap 6 Blood Urea Nitrogen 14 14 Creatinine 0.76 0.76 Est Glomerular Filtrat Rate mL/min > 60 Glucose Level 161 Calcium Level 8.5 Total Bilirubin 0.4 Direct Bilirubin 0.00 Indirect Bilirubin 0.4 Aspartate Amino Transf (AST/SGOT) 35 Alanine Aminotransferase (ALT/SGPT) 21 Alkaline Phosphatase 103 Total Protein 5.7 L Albumin 2.5 L Globulin 3.20 Albumin/Globulin Ratio 0.78 Vancomycin Level Trough 16.7 Medications Medication Current Medications Miscellaneous Information (* Miscellaneous Pharmacy Order) DURAMORPH: 3.5MG EPIDU... GIVEN NEURAXIAL XX ; Start 01/21/19 at 10:00 Hydromorphone HCl (Dilaudid) 0.2 mg Q2H PRN IV .PAIN 1-5 Last administered on 02/02/19at 13:39; Admin Dose 0.2 MG; Start 01/21/19 at 12:00 Hydromorphone HCl (Dilaudid) 0.4 mg Q2H PRN IV .PAIN 6-10 Last administered on 02/01/19at 20:18; Admin Dose 0.4 MG; Start 01/21/19 at 12:00 Acetaminophen/ Hydrocodone Bitart ([place] (5/325)) 1 tab Q4H PRN PO .PAIN 4-6 Last administered on 01/25/19at 08:34; Admin Dose 1 TAB; Start 01/21/19 at 12:00 Diphenhydramine HCl (Benadryl) 25 mg Q4H PRN IV .PRURITUS; Start 01/21/19 at 12:00 Nalbuphine HCl (Nubain) 10 mg Q4H PRN IV .PRURITUS; Start 01/21/19 at 12:00 Ondansetron HCl (Zofran Inj) 4 mg Q6H PRN IV .NAUSEA/VOMITING Last administered on 01/22/19at 23:48; Admin Dose 4 MG; Start 01/21/19 at 12:00 Trimethobenzamide HCl (Tigan) 200 mg Q6H PRN IM .NAUSEA/VOMITING; Start 01/21/19 at 12:00 Zolpidem Tartrate (Ambien) 5 mg HS MAY REPEAT X 1 PRN PO .INSOMNIA; Start 01/21/19 at 12:00 Naloxone HCl (Narcan) 0.2 mg Q2M PRN IV .RESP RATE; Start 01/21/19 at 12:00 Hydralazine HCl (Apresoline) 10 mg Q4H PRN IV >150/95 Last administered on 01/24/19at 05:34; Admin Dose 10 MG; Start 01/21/19 at 14:00 Metoprolol Tartrate (Lopressor) 5 mg Q4H PRN IV HR>110 HOld SBP<100 Last administered on 01/25/19at 05:11; Admin Dose 5 MG; Start 01/23/19 at 20:30 Levalbuterol (Xopenex Neb) 0.63 mg Q6H RESP THERAPY HHN Last administered on 02/03/19 07:34; Admin Dose 0.63 MG; Start 01/24/19 at 23:30 Acetaminophen (Tylenol Tab) 650 mg Q6H PRN PO MILD PAIN(1-3)OR ELEVATED TEMP Last administered on 01/29/19at 23:29; Admin Dose 650 MG; Start 01/29/19 at 23:30 Al Hydrox/Mg Hydrox/Simethicone (Mag-Al Plus) 30 ml Q4H PRN PO GASTROINTESTINAL UPSET Last administered on 01/30/19at 18:39; Admin Dose 30 ML; Start 01/29/19 at 23:30 Atenolol (Tenormin) 50 mg BID PO Last administered on 02/03/19 08:18; Admin Dose 50 MG; Start 01/30/19 at 21:00 Enoxaparin Sodium (Lovenox) 95 mg BID SC Last administered on 02/03/19 08:26; Admin Dose 95 MG; Start 01/30/19 at 21:00 Fluconazole/ Sodium Chloride 50 ml @ 50 mls/hr Q24H IVPB Last administered on 02/02/19at 20:52; Admin Dose 50 MLS/HR; Start 01/30/19 at 20:30 Meropenem/Sodium Chloride 50 ml @ 100 mls/hr Q12 IVPB Last administered on 02/03/19 08:19; Admin Dose 100 MLS/HR; Start 02/01/19 at 21:00 YESSICA CLAYTON Feb 03, 2019 12:09
[2019-02-03] MEDS ORDERED: ALBUTEROL 0.083% (NEB) 2.5 MG/3 ML AMP HHN SCH (13:00)
[2019-02-03] MEDS: VANCOMYCIN HCL 1.5 GM in SOD CHLORIDE 0.9% 250 ML IVPB SCH (14:17)
[2019-02-03] MEDS: D5W-0.45 NACL + KCL 20 MEQ 1,000 ML IV SCH (14:56)
--- NOTE | 2019-02-03 15:08 | PN ---
DATE: 02/03/2019 Postop day #13 status post laparotomy, reversal of end colostomy with repair of the parastomal hernia and few other procedures which was done on 01/21/2019. SUBJECTIVE: Complains of shortness of breath. OBJECTIVE: GENERAL: Sitting on the bedside on a chair, appears slightly tachypneic; otherwise, in no acute dist ress. VITAL SIGNS: Temperature maximum today so far 98.5, pulse rate fluctuating between 85 and 113. Rhyt hm is atrial fibrillation. Respiration is 22 and 24, blood pressure 175/83, saturation 96% on 4 lite rs nasal cannula. HEART: Atrial fibrillation. LUNGS: Decreased breathing sound at bases. ABDOMEN: Very distended, protruded. To me, it appears that this is because of abdominal fat and par tially due to distention of the bowel loops and/or free air which was reported previously in the abdo edmar cavity. Bowel sounds are present. Dressings were removed and abdominal wall was inspected. M idline incision. In the center of it, there is an opening where an abscess has been drained already. It does not look very clean at this time. On the left side of the midline at the level of the umbi licus at the area which previously was colostomy, colostomy bag has been applied by the nurse today m steve on the site of the colostomy bag because she believed that the patient is having stool drainag e from that area and to prevent pulling it on the other part of the abdominal wall. She put the bag over there, but at this time, the content of the bag is about 20 mL of fluid which appears likely ser osanguineous, is not sure at this time. Also in the left lower quadrant, there is accordion bag. In the tubing, there is some material which resembles stool or could be thick pus which has been draine d percutaneously a few days ago and the tip of the catheter is in the left lower quadrant fluid colle ction. EXTREMITIES: Lower extremity: There is 3+ pitting edema. LABORATORY DATA: WBC dropped to 8500 which is normal, differential is 80% which is slight shift to t he left, hemoglobin is stable at 10.5, hematocrit 32.5. Chemistry: Sodium, potassium are normal. B UN 14, creatinine 0.76, which is normal. Total protein 5.7, total albumin 2.5 which is very low. IMAGING: No x-ray was taken today. ASSESSMENT AND PLAN: This is a 59-year-old gentleman who had operation for reversal and closure of c olostomy and Reagan pouch anastomosis and repair of the parastomal hernia about 13 days ago. Posto p, the patient developed severe distention of the abdomen. CT scan was done which revealed presence of ascites and also fluid collection in the left side of the pelvis and lot of air in the peritoneal cavity mainly in the upper part and some pleural effusion on the right side and pericardial effusion as well. The patient gradually has been started on regular diet and has been tolerating in the sense that he is not vomiting or has not had nausea. Per his son, he has been consuming 60% to 80% of the content of the tray for breakfast and lunch. He has been having bowel movement and he states that h e has regular bowel movement, but we have some problem with the patient. There is a fluid collection in the pelvis which has been drained percutaneously by radiologist and it appears that this is liqui d fecal material. The culture has grown gram negative and joseline and the patient is on antibiotic p er infectious disease recommendation. Also, there has been infection in abdominal wall in the midlin e which has been opened by removing the abbey, but still the wound is not clean even though the wou nd is being change the dressing twice a day. Today per nurse and per patient's family, there has bee n some stool coming out from somewhere in the abdominal wall most probably from the site of the previ ous colostomy which also could be from the midline. In any case, considering these new problem, I wo uld rather to keep the patient n.p.o. and I am going to put the patient n.p.o. except ice chips and m edication and keep him on IV supplement of D5 half normal saline plus 20 potassium chloride per liter 100 mL per hour so that by tomorrow, Dr. Art and I will make a decision and also other colleagues wi ll make a decision for shortness of breath of the patient. Dictated By: LIAT LOOMIS MD PS/NTS Conf#: [id number] DID#: [id number] CC: JACOB ART MD; ANDREY ZHENG MD;*EndCC*
[2019-02-03] MEDS: FLUCONAZOLE 100 MG/50 ML (PMX) 50 ML IVPB SCH (21:07)
[2019-02-04] VITALS (13 sets, daily range): BP systolic 118–144; BP diastolic 72–84; PULSE 80–158; RESP 20
[2019-02-04] MEDS: D5W-0.45 NACL + KCL 20 MEQ 1,000 ML IV SCH (00:48)
[2019-02-04] MEDS: LEVALBUTEROL (NEB) 0.63 MG/3 ML AMP HHN SCH ×4 (01:25→21:23)
[2019-02-04] MEDS: MEROPENEM 1 GM/50ML(PMX) 50 ML IVPB SCH (08:12)
[2019-02-04] MEDS: ATENOLOL 50 MG TAB PO SCH ×2 (08:12→21:20)
[2019-02-04] MEDS: ENOXAPARIN 100 MG/ML SYG SC SCH ×2 (08:20→21:17)
[2019-02-04] MEDS ORDERED: FUROSEMIDE 20 MG INJ IV ONE (09:00)
[2019-02-04] MEDS ORDERED: IOHEXOL 14.3 MG(I)/ML (ADULT) BTL PO ONE ×2 (09:30→12:30)
--- NOTE | 2019-02-04 10:20 | CONS ---
Assessment/Plan Assessment/Plan Hospital Course (Demo Recall) IMPRESSION: 1. Tachycardia, at this time sinus tachycardia in the setting of significant pain, fevers, status post surgery. NL EF by echo 60-65. ON had onset of AF with RVR 2. Possible congestive heart failure by chest x-ray with the patient having the onset of acute renal failure at this time. 3. Hypertension, mildly elevated. 4. Postoperative status post reversal colostomy. 5. Fevers postop. 6. Renal failure, acute.-improved now 7. History of colon carcinoma status post prior colectomy with colostomy. 8. Hypernatremia, improved 9. Hypomagnesemia-improved 10. Leukocytosis. Recc: -Tele -Continue PO BB and lovenox systemic anticoagulation with lovenox held for procedure today. -s/p IVP of digoxin with improved HR control -Pain control -Continue abx's and f/u cx data -Follow volume status closely and will start gentle lasix diuresis Consultation Date/Type/Reason Admit Date/Time Jan 21, 2019 at 06:18 Initial Consult Date 01/23/19 Type of Consult Cardiology Reason for Consultation tachycardia Requesting Provider: ODELL PACHECO Date/Time of Note DATE: 02/04/19 TIME: 10:18 Exam/Review of Systems Vital Signs Vitals Vital Signs Date Temp Pulse Resp B/P (MAP) Pulse Ox O2 O2 Flow FiO2 Time Delivery Rate 02/04/19 89 09:14 02/04/19 98 Nasal 4.0 07:36 Cannula 02/04/19 98.5 20 144/72 07:07 (96) Intake and Output 02/03/19 02/03/19 02/04/19 1515:00 23:00 07:00 IntakeIntake Total 786 ml 0 ml OutputOutput Total 845 ml BalanceBalance 786 ml -845 ml Exam Exam Review of Systems: CONSTITUTIONAL: No fevers, chills. PULMONARY: No sob CARDIOVASCULAR: No chest pain/palpitations GASTROINTESTINAL: No nausea/vomiting. GENITOURINARY: No hematuria/dysuria. MUSCULOSKELETAL: No myagias/arthalgias. PSYCHIATRIC: The patient denies depression. NEUROLOGIC: No weakness Constitutional: alert Psych: no complaints Head: normocephalic ENMT: mucosa pink and moist Neck: supple, jvd (9 cm water) Respiratory: diminished breath sounds Cardiovascular: regular rate and rhythm Gastrointestinal: soft, non-tender Musculoskeletal: muscle tone (normal) Extremities: edema (none) Neurological: other (No focal deficits) Labs Result Diagram: 02/04/19 0602/04/19 06 Results 24hrs Laboratory Tests Test 02/03/19 10:29 02/04/19 06:01 Blood Urea Nitrogen 14 11 Creatinine 0.76 0.66 Vancomycin Level Trough 16.7 White Blood Count 6.4 # Red Blood Count 3.26 L Hemoglobin 9.9 L Hematocrit 31.1 L Mean Corpuscular Volume 95.4 Mean Corpuscular Hemoglobin 30.4 Mean Corpuscular Hemoglobin Concent 31.8 L Red Cell Distribution Width 13.8 Platelet Count 384 Mean Platelet Volume 10.9 H Immature Granulocytes % 1.600 H Neutrophils % 78.3 H Lymphocytes % 8.1 L Monocytes % 9.5 Eosinophils % 1.9 Basophils % 0.6 Nucleated Red Blood Cells % 0.0 Immature Granulocytes # 0.100 H Neutrophils # 5.0 Lymphocytes # 0.5 L Monocytes # 0.6 Eosinophils # 0.1 Basophils # 0.0 Nucleated Red Blood Cells # 0.0 Sodium Level 136 Potassium Level 4.6 Chloride Level 105 Carbon Dioxide Level 26 Anion Gap 5 Est Glomerular Filtrat Rate mL/min > 60 Glucose Level 159 Calcium Level 8.2 L Total Bilirubin 0.3 Direct Bilirubin 0.00 Indirect Bilirubin 0.3 Aspartate Amino Transf (AST/SGOT) 36 Alanine Aminotransferase (ALT/SGPT) 26 Alkaline Phosphatase 101 Total Protein 5.5 L Albumin 2.6 L Globulin 2.90 Albumin/Globulin Ratio 0.89 Medications Medications Current Medications Miscellaneous Information (* Miscellaneous Pharmacy Order) DURAMORPH: 3.5MG EPIDU... GIVEN NEURAXIAL XX ; Start 01/21/19 at 10:00 Hydromorphone HCl (Dilaudid) 0.2 mg Q2H PRN IV .PAIN 1-5 Last administered on 02/02/19at 13:39; Admin Dose 0.2 MG; Start 01/21/19 at 12:00 Hydromorphone HCl (Dilaudid) 0.4 mg Q2H PRN IV .PAIN 6-10 Last administered on 02/01/19at 20:18; Admin Dose 0.4 MG; Start 01/21/19 at 12:00 Acetaminophen/ Hydrocodone Bitart ([place] (5/325)) 1 tab Q4H PRN PO .PAIN 4-6 Last administered on 01/25/19 08:34; Admin Dose 1 TAB; Start 01/21/19 at 12:00 Diphenhydramine HCl (Benadryl) 25 mg Q4H PRN IV .PRURITUS; Start 01/21/19 at 12:00 Nalbuphine HCl (Nubain) 10 mg Q4H PRN IV .PRURITUS; Start 01/21/19 at 12:00 Ondansetron HCl (Zofran Inj) 4 mg Q6H PRN IV .NAUSEA/VOMITING Last administered on 01/22/19 23:48; Admin Dose 4 MG; Start 01/21/19 at 12:00 Trimethobenzamide HCl (Tigan) 200 mg Q6H PRN IM .NAUSEA/VOMITING; Start 01/21/19 at 12:00 Zolpidem Tartrate (Ambien) 5 mg HS MAY REPEAT X 1 PRN PO .INSOMNIA; Start 01/21/19 at 12:00 Naloxone HCl (Narcan) 0.2 mg Q2M PRN IV .RESP RATE; Start 01/21/19 at 12:00 Hydralazine HCl (Apresoline) 10 mg Q4H PRN IV >150/95 Last administered on 01/24/19 05:34; Admin Dose 10 MG; Start 01/21/19 at 14:00 Metoprolol Tartrate (Lopressor) 5 mg Q4H PRN IV HR>110 HOld SBP<100 Last administered on 01/25/19at 05:11; Admin Dose 5 MG; Start 01/23/19 at 20:30 Levalbuterol (Xopenex Neb) 0.63 mg Q6H RESP THERAPY HHN Last administered on 02/04/19at 07:33; Admin Dose 0.63 MG; Start 01/24/19 at 23:30 Acetaminophen (Tylenol Tab) 650 mg Q6H PRN PO MILD PAIN(1-3)OR ELEVATED TEMP Last administered on 01/29/19 23:29; Admin Dose 650 MG; Start 01/29/19 at 23:30 Al Hydrox/Mg Hydrox/Simethicone (Mag-Al Plus) 30 ml Q4H PRN PO GASTROINTESTINAL UPSET Last administered on 01/30/19at 18:39; Admin Dose 30 ML; Start 01/29/19 at 23:30 Atenolol (Tenormin) 50 mg BID PO Last administered on 02/04/19 08:12; Admin Dose 50 MG; Start 01/30/19 at 21:00 Enoxaparin Sodium (Lovenox) 95 mg BID SC Last administered on 02/04/19 08:20; Admin Dose 95 MG; Start 01/30/19 at 21:00 Fluconazole/ Sodium Chloride 50 ml @ 50 mls/hr Q24H IVPB Last administered on 02/03/19at 21:07; Admin Dose 50 MLS/HR; Start 01/30/19 at 20:30 Meropenem/Sodium Chloride 50 ml @ 100 mls/hr Q12 IVPB Last administered on 02/04/19 08:12; Admin Dose 100 MLS/HR; Start 02/01/19 at 21:00 EUGENE ANDERSON Feb 04, 2019 10:19
[2019-02-04] MEDS: FUROSEMIDE 20 MG INJ IV SCH (10:30)
--- NOTE | 2019-02-04 11:19 | PN ---
Date/Time of Note Date/Time of Note DATE: 02/04/19 TIME: 11:17 Assessment/Plan VTE Prophylaxis Risk score (from Ns)>0 risk: 4 SCD applied (from Ns): Yes Pharmacological prophylaxis: other Lines/Catheters IV Catheter Type (from [facility]): Saline Lock Urinary Cath still in place: No Assessment/Plan Assessment/Plan s/p perc ct drain for fluid collection will get CT scan to evaluate for a leak Result Diagram: 02/04/19 0601 02/04/19 0601 Results 24hrs Laboratory Tests Test 02/04/19 06:01 White Blood Count 6.4 # Red Blood Count 3.26 L Hemoglobin 9.9 L Hematocrit 31.1 L Mean Corpuscular Volume 95.4 Mean Corpuscular Hemoglobin 30.4 Mean Corpuscular Hemoglobin Concent 31.8 L Red Cell Distribution Width 13.8 Platelet Count 384 Mean Platelet Volume 10.9 H Immature Granulocytes % 1.600 H Neutrophils % 78.3 H Lymphocytes % 8.1 L Monocytes % 9.5 Eosinophils % 1.9 Basophils % 0.6 Nucleated Red Blood Cells % 0.0 Immature Granulocytes # 0.100 H Neutrophils # 5.0 Lymphocytes # 0.5 L Monocytes # 0.6 Eosinophils # 0.1 Basophils # 0.0 Nucleated Red Blood Cells # 0.0 Sodium Level 136 Potassium Level 4.6 Chloride Level 105 Carbon Dioxide Level 26 Anion Gap 5 Blood Urea Nitrogen 11 Creatinine 0.66 Est Glomerular Filtrat Rate mL/min > 60 Glucose Level 159 Calcium Level 8.2 L Total Bilirubin 0.3 Direct Bilirubin 0.00 Indirect Bilirubin 0.3 Aspartate Amino Transf (AST/SGOT) 36 Alanine Aminotransferase (ALT/SGPT) 26 Alkaline Phosphatase 101 Total Protein 5.5 L Albumin 2.6 L Globulin 2.90 Albumin/Globulin Ratio 0.89 Subjective 24 Hr Interval Summary Free Text/Dictation drains showing brown liquid however, patient is clinically stable Exam/Review of Systems Exam Vitals Vital Signs Date Temp Pulse Resp B/P (MAP) Pulse Ox O2 O2 Flow FiO2 Time Delivery Rate 02/04/19 97.9 99 20 133/79 97 11:02 (97) 02/04/19 Nasal 4.0 07:36 Cannula Intake and Output 02/03/19 02/03/19 02/04/19 1515:00 23:00 07:00 IntakeIntake Total 786 ml 0 ml OutputOutput Total 845 ml BalanceBalance 786 ml -845 ml Exam midline open wound healing and prior colostomy site with brown drainage Results Results 24hrs Laboratory Tests Test 02/04/19 06:01 White Blood Count 6.4 # Red Blood Count 3.26 L Hemoglobin 9.9 L Hematocrit 31.1 L Mean Corpuscular Volume 95.4 Mean Corpuscular Hemoglobin 30.4 Mean Corpuscular Hemoglobin Concent 31.8 L Red Cell Distribution Width 13.8 Platelet Count 384 Mean Platelet Volume 10.9 H Immature Granulocytes % 1.600 H Neutrophils % 78.3 H Lymphocytes % 8.1 L Monocytes % 9.5 Eosinophils % 1.9 Basophils % 0.6 Nucleated Red Blood Cells % 0.0 Immature Granulocytes # 0.100 H Neutrophils # 5.0 Lymphocytes # 0.5 L Monocytes # 0.6 Eosinophils # 0.1 Basophils # 0.0 Nucleated Red Blood Cells # 0.0 Sodium Level 136 Potassium Level 4.6 Chloride Level 105 Carbon Dioxide Level 26 Anion Gap 5 Blood Urea Nitrogen 11 Creatinine 0.66 Est Glomerular Filtrat Rate mL/min > 60 Glucose Level 159 Calcium Level 8.2 L Total Bilirubin 0.3 Direct Bilirubin 0.00 Indirect Bilirubin 0.3 Aspartate Amino Transf (AST/SGOT) 36 Alanine Aminotransferase (ALT/SGPT) 26 Alkaline Phosphatase 101 Total Protein 5.5 L Albumin 2.6 L Globulin 2.90 Albumin/Globulin Ratio 0.89 Medications Medication Current Medications Miscellaneous Information (* Miscellaneous Pharmacy Order) DURAMORPH: 3.5MG EPIDU... GIVEN NEURAXIAL XX ; Start 01/21/19 at 10:00 Hydromorphone HCl (Dilaudid) 0.2 mg Q2H PRN IV .PAIN 1-5 Last administered on 02/02/19at 13:39; Admin Dose 0.2 MG; Start 01/21/19 at 12:00 Hydromorphone HCl (Dilaudid) 0.4 mg Q2H PRN IV .PAIN 6-10 Last administered on 02/01/19at 20:18; Admin Dose 0.4 MG; Start 01/21/19 at 12:00 Acetaminophen/ Hydrocodone Bitart ([place] (5/325)) 1 tab Q4H PRN PO .PAIN 4-6 Last administered on 01/25/19at 08:34; Admin Dose 1 TAB; Start 01/21/19 at 12:00 Diphenhydramine HCl (Benadryl) 25 mg Q4H PRN IV .PRURITUS; Start 01/21/19 at 12:00 Nalbuphine HCl (Nubain) 10 mg Q4H PRN IV .PRURITUS; Start 01/21/19 at 12:00 Ondansetron HCl (Zofran Inj) 4 mg Q6H PRN IV .NAUSEA/VOMITING Last administered on 01/22/19at 23:48; Admin Dose 4 MG; Start 01/21/19 at 12:00 Trimethobenzamide HCl (Tigan) 200 mg Q6H PRN IM .NAUSEA/VOMITING; Start 01/21/19 at 12:00 Zolpidem Tartrate (Ambien) 5 mg HS MAY REPEAT X 1 PRN PO .INSOMNIA; Start 01/21/19 at 12:00 Naloxone HCl (Narcan) 0.2 mg Q2M PRN IV .RESP RATE; Start 01/21/19 at 12:00 Hydralazine HCl (Apresoline) 10 mg Q4H PRN IV >150/95 Last administered on 01/24/19 05:34; Admin Dose 10 MG; Start 01/21/19 at 14:00 Metoprolol Tartrate (Lopressor) 5 mg Q4H PRN IV HR>110 HOld SBP<100 Last ad ministered on 01/25/19 05:11; Admin Dose 5 MG; Start 01/23/19 at 20:30 Levalbuterol (Xopenex Neb) 0.63 mg Q6H RESP THERAPY HHN Last administered on 02/04/19at 07:33; Admin Dose 0.63 MG; Start 01/24/19 at 23:30 Acetaminophen (Tylenol Tab) 650 mg Q6H PRN PO MILD PAIN(1-3)OR ELEVATED TEMP Last administered on 01/29/19 23:29; Admin Dose 650 MG; Start 01/29/19 at 23:30 Al Hydrox/Mg Hydrox/Simethicone (Mag-Al Plus) 30 ml Q4H PRN PO GASTROINTESTINAL UPSET Last administered on 01/30/19 18:39; Admin Dose 30 ML; Start 01/29/19 at 23:30 Atenolol (Tenormin) 50 mg BID PO Last administered on 02/04/19 08:12; Admin Dose 50 MG; Start 01/30/19 at 21:00 Enoxaparin Sodium (Lovenox) 95 mg BID SC Last administered on 02/04/19 08:20; Admin Dose 95 MG; Start 01/30/19 at 21:00 Fluconazole/ Sodium Chloride 50 ml @ 50 mls/hr Q24H IVPB Last administered on 02/03/19at 21:07; Admin Dose 50 MLS/HR; Start 01/30/19 at 20:30 Meropenem/Sodium Chloride 50 ml @ 100 mls/hr Q12 IVPB Last administered on 02/04/19 08:12; Admin Dose 100 MLS/HR; Start 02/01/19 at 21:00 Furosemide (Lasix) 20 mg DAILY IV ; Start 02/04/19 at 10:30 Ann FERNANDEZ Feb 04, 2019 11:19
--- NOTE | 2019-02-04 12:52 | PN ---
Date/Time of Note Date/Time of Note DATE: 02/04/19 TIME: 12:52 Assessment/Plan VTE Prophylaxis Risk score (from Ns)>0 risk: 5 SCD applied (from Ns): Yes Pharmacological prophylaxis: LMWH Lines/Catheters IV Catheter Type (from Nrs): Saline Lock Urinary Cath still in place: No Assessment/Plan Hospital Course -Increased leukocytosis patient is currently on Zosyn and Flagyl, CT of the abdomen and pelvis revealed moderate ascites, questionable peritonitis or abscess increased right lower lobe infiltrate. Dr. Vázquez is following in infection disease consultation. -Possible surgical wound infection, obtain wound cx. -Right lower lobe infiltrate -S/p open Reagan reversal and colorectal low pelvic anastomosis, segmental partial colectomy, and open incarcerated incisional and parastomal hernia repairs with mesh by Dr. Art on 01/21/2019. Continue [place] and Dilaudid as needed for pain and Zofran as needed for nausea. -Stage III sigmoid colon cancer, status post surgery and chemo in 2018. -Acute kidney injury on chronic kidney disease, monitor urine output BUN and creatinine. Dr. Stuart is following in nephrology consultation. -Acute on chronic diastolic CHF -Atrial fibrillation. -Obstructive sleep apnea -History of hypertension -History of left upper extremity DVT Result Diagram: 02/04/19 0601 02/04/19 0601 Results 24hrs Laboratory Tests Test 02/04/19 06:01 White Blood Count 6.4 # Red Blood Count 3.26 L Hemoglobin 9.9 L Hematocrit 31.1 L Mean Corpuscular Volume 95.4 Mean Corpuscular Hemoglobin 30.4 Mean Corpuscular Hemoglobin Concent 31.8 L Red Cell Distribution Width 13.8 Platelet Count 384 Mean Platelet Volume 10.9 H Immature Granulocytes % 1.600 H Neutrophils % 78.3 H Lymphocytes % 8.1 L Monocytes % 9.5 Eosinophils % 1.9 Basophils % 0.6 Nucleated Red Blood Cells % 0.0 Immature Granulocytes # 0.100 H Neutrophils # 5.0 Lymphocytes # 0.5 L Monocytes # 0.6 Eosinophils # 0.1 Basophils # 0.0 Nucleated Red Blood Cells # 0.0 Sodium Level 136 Potassium Level 4.6 Chloride Level 105 Carbon Dioxide Level 26 Anion Gap 5 Blood Urea Nitrogen 11 Creatinine 0.66 Est Glomerular Filtrat Rate mL/min > 60 Glucose Level 159 Calcium Level 8.2 L Total Bilirubin 0.3 Direct Bilirubin 0.00 Indirect Bilirubin 0.3 Aspartate Amino Transf (AST/SGOT) 36 Alanine Aminotransferase (ALT/SGPT) 26 Alkaline Phosphatase 101 Total Protein 5.5 L Albumin 2.6 L Globulin 2.90 Albumin/Globulin Ratio 0.89 Subjective 24 Hr Interval Summary Free Text/Dictation Patient still have abdominal pain Exam/Review of Systems Exam Vitals Vital Signs Date Temp Pulse Resp B/P (MAP) Pulse Ox O2 O2 Flow FiO2 Time Delivery Rate 02/04/19 97.9 99 20 133/79 97 11:02 (97) 02/04/19 Nasal 4.0 07:36 Cannula Intake and Output 02/03/19 02/03/19 02/04/19 1414:59 22:59 06:59 IntakeIntake Total 786 ml 0 ml OutputOutput Total 845 ml BalanceBalance 786 ml -845 ml Constitutional: well developed Head: normocephalic, atraumatic Neck: supple Respiratory: diminished breath sounds Cardiovascular: regular rate and rhythm Gastrointestinal: soft, non-tender Extremities: normal pulses Results Results 24hrs Laboratory Tests Test 02/04/19 06:01 White Blood Count 6.4 # Red Blood Count 3.26 L Hemoglobin 9.9 L Hematocrit 31.1 L Mean Corpuscular Volume 95.4 Mean Corpuscular Hemoglobin 30.4 Mean Corpuscular Hemoglobin Concent 31.8 L Red Cell Distribution Width 13.8 Platelet Count 384 Mean Platelet Volume 10.9 H Immature Granulocytes % 1.600 H Neutrophils % 78.3 H Lymphocytes % 8.1 L Monocytes % 9.5 Eosinophils % 1.9 Basophils % 0.6 Nucleated Red Blood Cells % 0.0 Immature Granulocytes # 0.100 H Neutrophils # 5.0 Lymphocytes # 0.5 L Monocytes # 0.6 Eosinophils # 0.1 Basophils # 0.0 Nucleated Red Blood Cells # 0.0 Sodium Level 136 Potassium Level 4.6 Chloride Level 105 Carbon Dioxide Level 26 Anion Gap 5 Blood Urea Nitrogen 11 Creatinine 0.66 Est Glomerular Filtrat Rate mL/min > 60 Glucose Level 159 Calcium Level 8.2 L Total Bilirubin 0.3 Direct Bilirubin 0.00 Indirect Bilirubin 0.3 Aspartate Amino Transf (AST/SGOT) 36 Alanine Aminotransferase (ALT/SGPT) 26 Alkaline Phosphatase 101 Total Protein 5.5 L Albumin 2.6 L Globulin 2.90 Albumin/Globulin Ratio 0.89 Medications Medication Current Medications Miscellaneous Information (* Miscellaneous Pharmacy Order) DURAMORPH: 3.5MG EPIDU... GIVEN NEURAXIAL XX ; Start 01/21/19 at 10:00 Hydromorphone HCl (Dilaudid) 0.2 mg Q2H PRN IV .PAIN 1-5 Last administered on 02/02/19at 13:39; Admin Dose 0.2 MG; Start 01/21/19 at 12:00 Hydromorphone HCl (Dilaudid) 0.4 mg Q2H PRN IV .PAIN 6-10 Last administered on 02/01/19at 20:18; Admin Dose 0.4 MG; Start 01/21/19 at 12:00 Acetaminophen/ Hydrocodone Bitart ([place] (5/325)) 1 tab Q4H PRN PO .PAIN 4-6 Last administered on 01/25/19at 08:34; Admin Dose 1 TAB; Start 01/21/19 at 12:00 Diphenhydramine HCl (Benadryl) 25 mg Q4H PRN IV .PRURITUS; Start 01/21/19 at 12:00 Nalbuphine HCl (Nubain) 10 mg Q4H PRN IV .PRURITUS; Start 01/21/19 at 12:00 Ondansetron HCl (Zofran Inj) 4 mg Q6H PRN IV .NAUSEA/VOMITING Last administered on 01/22/19at 23:48; Admin Dose 4 MG; Start 01/21/19 at 12:00 Trimethobenzamide HCl (Tigan) 200 mg Q6H PRN IM .NAUSEA/VOMITING; Start 01/21/19 at 12:00 Zolpidem Tartrate (Ambien) 5 mg HS MAY REPEAT X 1 PRN PO .INSOMNIA; Start 01/21/19 at 12:00 Naloxone HCl (Narcan) 0.2 mg Q2M PRN IV .RESP RATE; Start 01/21/19 at 12:00 Hydralazine HCl (Apresoline) 10 mg Q4H PRN IV >150/95 Last administered on 01/24/19at 05:34; Admin Dose 10 MG; Start 01/21/19 at 14:00 Metoprolol Tartrate (Lopressor) 5 mg Q4H PRN IV HR>110 HOld SBP<100 Last administered on 01/25/19 05:11; Admin Dose 5 MG; Start 01/23/19 at 20:30 Levalbuterol (Xopenex Neb) 0.63 mg Q6H RESP THERAPY HHN Last administered on 02/04/19 07:33; Admin Dose 0.63 MG; Start 01/24/19 at 23:30 Acetaminophen (Tylenol Tab) 650 mg Q6H PRN PO MILD PAIN(1-3)OR ELEVATED TEMP Last administered on 01/29/19 23:29; Admin Dose 650 MG; Start 01/29/19 at 23:30 Al Hydrox/Mg Hydrox/Simethicone (Mag-Al Plus) 30 ml Q4H PRN PO GASTROINTESTINAL UPSET Last administered on 01/30/19 18:39; Admin Dose 30 ML; Start 01/29/19 at 23:30 Atenolol (Tenormin) 50 mg BID PO Last administered on 02/04/19 08:12; Admin Dose 50 MG; Start 01/30/19 at 21:00 Enoxaparin Sodium (Lovenox) 95 mg BID SC Last administered on 02/04/19 08:20; Admin Dose 95 MG; Start 01/30/19 at 21:00 Fluconazole/ Sodium Chloride 50 ml @ 50 mls/hr Q24H IVPB Last administered on 02/03/19 21:07; Admin Dose 50 MLS/HR; Start 01/30/19 at 20:30 Meropenem/Sodium Chloride 50 ml @ 100 mls/hr Q12 IVPB Last administered on 02/04/19 08:12; Admin Dose 100 MLS/HR; Start 02/01/19 at 21:00 Furosemide (Lasix) 20 mg DAILY IV ; Start 02/04/19 at 10:30 YESSICA CLAYTON Feb 04, 2019 12:52
--- NOTE | 2019-02-04 13:40 | CONS ---
Assessment/Plan Assessment/Plan Hospital Course (Demo Recall) assessment/impression - sepsis due to complicated intra-abdominal infection and pneumonia - s/p open Reagan reversal and colorectal low pelvic anastomosis, segmental partial colectomy, and open incarcerated incisional and parastomal hernia repairs with mesh by Dr. Art on 01/21/2019 - s/p CT guided drainage of abscess in LLQ on 02/01/2019 - Abdominal wound culture 01/30/19 and abscess culture 01/31/19 grew pseudomonas and joseline albicans - possible anastomotic leak of fecal material - Stage III sigmoid colon cancer, status post prior colectomy/colostomy and chemo in 2018 - Acute kidney injury on chronic kidney disease - Acute on chronic diastolic CHF - Atrial fibrillation. - VIJAY - S/p colostomy reversal - Hx hypertension - Hx left upper extremity DVT recommendations: - will review the result of CT today - d/c meropenem - start cefepime and metronidazole - continue fluconazole - management d/w Pt and his RN Domenico Consultation Date/Type/Reason Admit Date/Time Jan 21, 2019 at 06:18 Initial Consult Date 01/30/19 Requesting Provider: ODELL PACHECO Date/Time of Note DATE: 02/04/19 TIME: 13:32 24 HR Interval Summary Constitutional: requiring O2, other (not feeling well) Detailed Summary Eyes: no complaints ENT: no complaints Respiratory: shortness of breath Cardiovascular: no complaints Gastrointestinal: other (bloated, uncomfortable) Genitourinary: no complaints Musculoskeletal: no complaints Skin: no complaints Neurologic: no complaints Exam/Review of Systems Exam Vitals Vital Signs Date Temp Pulse Resp B/P (MAP) Pulse Ox O2 O2 Flow FiO2 Time Delivery Rate 02/04/19 97.9 99 20 133/79 97 11:02 (97) 02/04/19 Nasal 4.0 07:36 Cannula Intake and Output 02/03/19 02/03/19 02/04/19 1515:00 23:00 07:00 IntakeIntake Total 786 ml 0 ml OutputOutput Total 845 ml BalanceBalance 786 ml -845 ml Constitutional: frail Psych: no complaints, nl mood/affect Head: normocephalic, atraumatic Eyes: nl conjunctiva, nl lids, nl sclera ENMT: nl external ears & nose, nl nasal mucosa & septum, mucosa pink and moist Neck: other (not swollen) Respiratory: other (shallow breathing) Cardiovascular: regular rate and rhythm, nl pulses Gastrointestinal: distended, firm, surgical scars, other (+colostomy bag and external drainage catheter in LLL is collecting fecal material) Musculoskeletal: nl extremities to inspection Extremities: No edema Neurological: nl mental status, nl speech, lethargic Results Result Diagram: 02/04/19 0601 02/04/19 0601 Results 24hrs Laboratory Tests Test 02/04/19 06:01 White Blood Count 6.4 # Red Blood Count 3.26 L Hemoglobin 9.9 L Hematocrit 31.1 L Mean Corpuscular Volume 95.4 Mean Corpuscular Hemoglobin 30.4 Mean Corpuscular Hemoglobin Concent 31.8 L Red Cell Distribution Width 13.8 Platelet Count 384 Mean Platelet Volume 10.9 H Immature Granulocytes % 1.600 H Neutrophils % 78.3 H Lymphocytes % 8.1 L Monocytes % 9.5 Eosinophils % 1.9 Basophils % 0.6 Nucleated Red Blood Cells % 0.0 Immature Granulocytes # 0.100 H Neutrophils # 5.0 Lymphocytes # 0.5 L Monocytes # 0.6 Eosinophils # 0.1 Basophils # 0.0 Nucleated Red Blood Cells # 0.0 Sodium Level 136 Potassium Level 4.6 Chloride Level 105 Carbon Dioxide Level 26 Anion Gap 5 Blood Urea Nitrogen 11 Creatinine 0.66 Est Glomerular Filtrat Rate mL/min > 60 Glucose Level 159 Calcium Level 8.2 L Total Bilirubin 0.3 Direct Bilirubin 0.00 Indirect Bilirubin 0.3 Aspartate Amino Transf (AST/SGOT) 36 Alanine Aminotransferase (ALT/SGPT) 26 Alkaline Phosphatase 101 Total Protein 5.5 L Albumin 2.6 L Globulin 2.90 Albumin/Globulin Ratio 0.89 Medications Medication Current Medications Miscellaneous Information (* Miscellaneous Pharmacy Order) DURAMORPH: 3.5MG EPIDU... GIVEN NEURAXIAL XX ; Start 01/21/19 at 10:00 Hydromorphone HCl (Dilaudid) 0.2 mg Q2H PRN IV .PAIN 1-5 Last administered on 02/02/19at 13:39; Admin Dose 0.2 MG; Start 01/21/19 at 12:00 Hydromorphone HCl (Dilaudid) 0.4 mg Q2H PRN IV .PAIN 6-10 Last administered on 4/19/19at 20:18; Admin Dose 0.4 MG; Start 01/21/19 at 12:00 Acetaminophen/ Hydrocodone Bitart ([place] (5/325)) 1 tab Q4H PRN PO .PAIN 4-6 Last administered on 01/25/19 08:34; Admin Dose 1 TAB; Start 01/21/19 at 12:00 Diphenhydramine HCl (Benadryl) 25 mg Q4H PRN IV .PRURITUS; Start 01/21/19 at 12:00 Nalbuphine HCl (Nubain) 10 mg Q4H PRN IV .PRURITUS; Start 01/21/19 at 12:00 Ondansetron HCl (Zofran Inj) 4 mg Q6H PRN IV .NAUSEA/VOMITING Last administered on 01/22/19 23:48; Admin Dose 4 MG; Start 01/21/19 at 12:00 Trimethobenzamide HCl (Tigan) 200 mg Q6H PRN IM .NAUSEA/VOMITING; Start 01/21/19 at 12:00 Zolpidem Tartrate (Ambien) 5 mg HS MAY REPEAT X 1 PRN PO .INSOMNIA; Start 01/21/19 at 12:00 Naloxone HCl (Narcan) 0.2 mg Q2M PRN IV .RESP RATE; Start 01/21/19 at 12:00 Hydralazine HCl (Apresoline) 10 mg Q4H PRN IV >150/95 Last administered on 01/24/19 05:34; Admin Dose 10 MG; Start 01/21/19 at 14:00 Metoprolol Tartrate (Lopressor) 5 mg Q4H PRN IV HR>110 HOld SBP<100 Last administered on 01/25/19 05:11; Admin Dose 5 MG; Start 01/23/19 at 20:30 Levalbuterol (Xopenex Neb) 0.63 mg Q6H RESP THERAPY HHN Last administered on 02/04/19 07:33; Admin Dose 0.63 MG; Start 01/24/19 at 23:30 Acetaminophen (Tylenol Tab) 650 mg Q6H PRN PO MILD PAIN(1-3)OR ELEVATED TEMP Last administered on 01/29/19 23:29; Admin Dose 650 MG; Start 01/29/19 at 23:30 Al Hydrox/Mg Hydrox/Simethicone (Mag-Al Plus) 30 ml Q4H PRN PO GASTROINTESTINAL UPSET Last administered on 01/30/19at 18:39; Admin Dose 30 ML; Start 01/29/19 at 23:30 Atenolol (Tenormin) 50 mg BID PO Last administered on 02/04/19 08:12; Admin Dose 50 MG; Start 01/30/19 at 21:00 Enoxaparin Sodium (Lovenox) 95 mg BID SC Last administered on 02/04/19 08:20; Admin Dose 95 MG; Start 01/30/19 at 21:00 Fluconazole/ Sodium Chloride 50 ml @ 50 mls/hr Q24H IVPB Last administered on 02/03/19at 21:07; Admin Dose 50 MLS/HR; Start 01/30/19 at 20:30 Meropenem/Sodium Chloride 50 ml @ 100 mls/hr Q12 IVPB Last administered on 01/15 08:12; Admin Dose 100 MLS/HR; Start 02/01/19 at 21:00 Furosemide (Lasix) 20 mg DAILY IV ; Start 02/04/19 at 10:30 MERCED ESCUDERO M.D. Feb 04, 2019 13:40
[2019-02-04] MEDS: metroNIDAZOLE 500 MG/NS (PMX) 100 ML IVPB SCH ×2 (14:15→21:21)
[2019-02-04] MEDS: CEFEPIME 2GM/50 ML (PMX) 50 ML IVPB SCH ×2 (15:57→21:19)
[2019-02-04] MEDS: FLUCONAZOLE 100 MG/50 ML (PMX) 50 ML IVPB SCH (21:19)
[2019-02-05] VITALS (13 sets, daily range): BP systolic 109–165; BP diastolic 61–83; PULSE 79–116; RESP 19–22
[2019-02-05] MEDS: LEVALBUTEROL (NEB) 0.63 MG/3 ML AMP HHN SCH ×4 (02:08→21:08)
[2019-02-05] MEDS: metroNIDAZOLE 500 MG/NS (PMX) 100 ML IVPB SCH ×3 (05:45→23:43)
[2019-02-05] MEDS: FUROSEMIDE 20 MG INJ IV SCH (08:31)
[2019-02-05] MEDS: CEFEPIME 2GM/50 ML (PMX) 50 ML IVPB SCH ×2 (08:32→23:03)
[2019-02-05] MEDS: ATENOLOL 50 MG TAB PO SCH ×2 (08:32→23:03)
--- NOTE | 2019-02-05 08:41 | CONS ---
Consult Date/Type/Reason Admit Date/Time Jan 21, 2019 at 06:18 Initial Consult Date Requesting Provider: ODELL PACHECO Date/Time of Note DATE: 02/05/19 TIME: 08:39 Subjective NO acute events - pt now up to chair - a little tachy - sinus - will allow for now - no CP noted. ROS: No fever, no chills, no nausea, no vomiting, no diarrhea/constipation No recent weight changes No chest pain, no PND, no orthopnea - mild SOB No dizziness, blurred vision No thirst, no heat or cold intolerance Objective Vitals Vital Signs Date Temp Pulse Resp B/P (MAP) Pulse Ox O2 O2 Flow FiO2 Time Delivery Rate 02/05/19 96 20 96 Nasal 4.0 07:51 Cannula 02/05/19 98.0 165/80 07:05 (108) 02/05/19 36 02:13 Intake and Output 02/04/19 02/04/19 02/05/19 1515:00 23:00 07:00 IntakeIntake Total 50 ml 1150 ml 300 ml OutputOutput Total 1510 ml 10 ml BalanceBalance 50 ml -360 ml 290 ml Exam General: WN/WD/NAD, AOx 3 HEENT: Unicetric/atraumatic/EOMI (follow commands) NECK: JVD elevated, no thyromegaly Lymph: no lymphadenopathy HEART: tachy, regular with no S3, II/ systolic murmur at apex LUNGS: Coarse sounds ABD: soft, NT, ND, +BS : Intact Neuro: non focal SKIN: chronic changes EXT: trace edema Results/Medications Result Diagram: 02/04/19 0601 02/05/19 0451 Results 24 hrs Laboratory Tests Test 02/05/19 04:51 Sodium Level 138 Potassium Level 4.4 Chloride Level 107 Carbon Dioxide Level 27 Anion Gap 4 L Blood Urea Nitrogen 11 Creatinine 0.69 Est Glomerular Filtrat Rate mL/min > 60 Glucose Level 120 Calcium Level 8.7 Total Bilirubin 0.3 Direct Bilirubin 0.00 Indirect Bilirubin 0.3 Aspartate Amino Transf (AST/SGOT) 33 Alanine Aminotransferase (ALT/SGPT) 27 Alkaline Phosphatase 112 Total Protein 5.7 L Albumin 2.5 L Globulin 3.20 Albumin/Globulin Ratio 0.78 Home Meds Active Scripts Carvedilol* (Carvedilol*) 25 Mg Tablet, 25 MG PO BID for 30 Days, TAB Prov:ODELL PACHECO 01/15/18 Furosemide* (Furosemide*) 20 Mg Tablet, 20 MG PO DAILY for 30 Days, TAB Prov:ODELL PACHECO 01/15/18 Reported Medications Apixaban* (Eliquis*) 5 Mg Tablet, 5 MG PO BID, TAB 11/02/18 Losartan Potassium* (Losartan Potassium*) 100 Mg Tablet, 100 MG PO DAILY, TAB 11/02/18 Nifedipine* (Nifedipine ER*) 60 Mg Tablet.sa, 60 MG PO BID, TAB.SA 11/02/18 Atorvastatin Calcium* (Atorvastatin Calcium*) 20 Mg Tablet, 20 MG PO QHS, #30 TAB 01/07/18 Medications Current Medications Miscellaneous Information (* Miscellaneous Pharmacy Order) DURAMORPH: 3.5MG EPIDU... GIVEN NEURAXIAL XX ; Start 01/21/19 at 10:00 Hydromorphone HCl (Dilaudid) 0.2 mg Q2H PRN IV .PAIN 1-5 Last administered on 02/02/19at 13:39; Admin Dose 0.2 MG; Start 01/21/19 at 12:00 Hydromorphone HCl (Dilaudid) 0.4 mg Q2H PRN IV .PAIN 6-10 Last administered on 02/01/19at 20:18; Admin Dose 0.4 MG; Start 01/21/19 at 12:00 Acetaminophen/ Hydrocodone Bitart ([place] (5/325)) 1 tab Q4H PRN PO .PAIN 4-6 Last administered on 01/25/19at 08:34; Admin Dose 1 TAB; Start 01/21/19 at 12:00 Diphenhydramine HCl (Benadryl) 25 mg Q4H PRN IV .PRURITUS; Start 01/21/19 at 12:00 Nalbuphine HCl (Nubain) 10 mg Q4H PRN IV .PRURITUS; Start 01/21/19 at 12:00 Ondansetron HCl (Zofran Inj) 4 mg Q6H PRN IV .NAUSEA/VOMITING Last administered on 01/22/19at 23:48; Admin Dose 4 MG; Start 01/21/19 at 12:00 Trimethobenzamide HCl (Tigan) 200 mg Q6H PRN IM .NAUSEA/VOMITING; Start 01/21/19 at 12:00 Zolpidem Tartrate (Ambien) 5 mg HS MAY REPEAT X 1 PRN PO .INSOMNIA; Start 01/21/19 at 12:00 Naloxone HCl (Narcan) 0.2 mg Q2M PRN IV .RESP RATE; Start 01/21/19 at 12:00 Hydralazine HCl (Apresoline) 10 mg Q4H PRN IV >150/95 Last administered on 01/24/19at 05:34; Admin Dose 10 MG; Start 01/21/19 at 14:00 Metoprolol Tartrate (Lopressor) 5 mg Q4H PRN IV HR>110 HOld SBP<100 Last administered on 01/25/19at 05:11; Admin Dose 5 MG; Start 01/23/19 at 20:30 Levalbuterol (Xopenex Neb) 0.63 mg Q6H RESP THERAPY HHN Last administered on 02/05/19at 07:49; Admin Dose 0.63 MG; Start 01/24/19 at 23:30 Acetaminophen (Tylenol Tab) 650 mg Q6H PRN PO MILD PAIN(1-3)OR ELEVATED TEMP Last administered on 01/29/19at 23:29; Admin Dose 650 MG; Start 01/29/19 at 23:30 Al Hydrox/Mg Hydrox/Simethicone (Mag-Al Plus) 30 ml Q4H PRN PO GASTROINTESTINAL UPSET Last administered on 01/30/19at 18:39; Admin Dose 30 ML; Start 01/29/19 at 23:30 Atenolol (Tenormin) 50 mg BID PO Last administered on 02/04/19at 21:20; Admin Dose 50 MG; Start 01/30/19 at 21:00 Enoxaparin Sodium (Lovenox) 95 mg BID SC Last administered on 02/04/19 21:17; Admin Dose 95 MG; Start 01/30/19 at 21:00 Fluconazole/ Sodium Chloride 50 ml @ 50 mls/hr Q24H IVPB Last administered on 02/04/19at 21:19; Admin Dose 50 MLS/HR; Start 01/30/19 at 20:30 Furosemide (Lasix) 20 mg DAILY IV ; Start 02/04/19 at 10:30 Cefepime HCl 50 ml @ 100 mls/hr Q12 IVPB Last administered on 02/04/19at 21:19; Admin Dose 100 MLS/HR; Start 02/04/19 at 14:00 Metronidazole 100 ml @ 100 mls/hr Q8 IVPB Last administered on 02/05/19at 05:45; Admin Dose 100 MLS/HR; Start 02/04/19 at 14:00 Assessment/Plan Hospital Course (Demo Recall) 1. Tachycardia, at this time sinus tachycardia in the setting of significant pain, fevers, status post surgery. NL EF by echo 60-65. ON had onset of AF with RVR - now rate better controlled. In sinus now - rate controlled. 2. Possible congestive heart failure by chest x-ray with the patient having the onset of acute renal failure at this time. Improved CHF. Better. 3. Hypertension, mildly elevated. BP well optimized nw. Will re-check post am meds. 4. Postoperative status post reversal colostomy - GI team follows,. Con't to recover. 5. Fevers postop - resolved. 6. Renal failure, acute.-improved now 7. History of colon carcinoma status post prior colectomy with colostomy. 8. Hypernatremia, improved 9. Hypomagnesemia-improved 10. Leukocytosis. On anti-Bx, better overall. SUSSY ANTHONY MD Feb 05, 2019 08:41
[2019-02-05] MEDS: ENOXAPARIN 100 MG/ML SYG SC SCH ×2 (08:43→23:32)
--- NOTE | 2019-02-05 12:24 | PN ---
Date/Time of Note Date/Time of Note DATE: 02/05/19 TIME: 12:23 Assessment/Plan VTE Prophylaxis Risk score (from Ns)>0 risk: 9 SCD applied (from Ns): Yes Pharmacological prophylaxis: other Lines/Catheters IV Catheter Type (from Nrsg): Peripheral IV Urinary Cath still in place: No Assessment/Plan Assessment/Plan s/p chisholm's takedown with possible anastomotic leak inconclusive on CT scan will get gastrograffin enema to evaluate also right pleural effusion causing significant breathing distress will get a CT guided thoracentesis Result Diagram: 02/04/19 0601 02/05/19 0451 Results 24hrs Laboratory Tests Test 02/05/19 04:51 Sodium Level 138 Potassium Level 4.4 Chloride Level 107 Carbon Dioxide Level 27 Anion Gap 4 L Blood Urea Nitrogen 11 Creatinine 0.69 Est Glomerular Filtrat Rate mL/min > 60 Glucose Level 120 Calcium Level 8.7 Total Bilirubin 0.3 Direct Bilirubin 0.00 Indirect Bilirubin 0.3 Aspartate Amino Transf (AST/SGOT) 33 Alanine Aminotransferase (ALT/SGPT) 27 Alkaline Phosphatase 112 Total Protein 5.7 L Albumin 2.5 L Globulin 3.20 Albumin/Globulin Ratio 0.78 Subjective 24 Hr Interval Summary Free Text/Dictation CT scan was not conclusive in regards to the anastomotic leak as the contrast did not reach the colon. Patient with brown fluid coming from prior colostomy site and pelvic drain also patient with large right pleural effusion and difficulty with breathing and anxiety Exam/Review of Systems Exam Vitals Vital Signs Date Temp Pulse Resp B/P (MAP) Pulse Ox O2 O2 Flow FiO2 Time Delivery Rate 02/05/19 98.0 98 20 122/77 96 11:22 (92) 02/05/19 Nasal 08:00 Cannula 02/05/19 4.0 07:51 02/05/19 36 02:13 Intake and Output 02/04/19 02/04/19 02/05/19 1515:00 23:00 07:00 IntakeIntake Total 50 ml 1150 ml 300 ml OutputOutput Total 1510 ml 10 ml BalanceBalance 50 ml -360 ml 290 ml Exam open wound packed and prior colostomy site with brown fluid Results Results 24hrs Laboratory Tests Test 02/05/19 04:51 Sodium Level 138 Potassium Level 4.4 Chloride Level 107 Carbon Dioxide Level 27 Anion Gap 4 L Blood Urea Nitrogen 11 Creatinine 0.69 Est Glomerular Filtrat Rate mL/min > 60 Glucose Level 120 Calcium Level 8.7 Total Bilirubin 0.3 Direct Bilirubin 0.00 Indirect Bilirubin 0.3 Aspartate Amino Transf (AST/SGOT) 33 Alanine Aminotransferase (ALT/SGPT) 27 Alkaline Phosphatase 112 Total Protein 5.7 L Albumin 2.5 L Globulin 3.20 Albumin/Globulin Ratio 0.78 Medications Medication Current Medications Miscellaneous Information (* Miscellaneous Pharmacy Order) DURAMORPH: 3.5MG EPIDU... GIVEN NEURAXIAL XX ; Start 01/21/19 at 10:00 Hydromorphone HCl (Dilaudid) 0.2 mg Q2H PRN IV .PAIN 1-5 Last administered on 02/02/19at 13:39; Admin Dose 0.2 MG; Start 01/21/19 at 12:00 Hydromorphone HCl (Dilaudid) 0.4 mg Q2H PRN IV .PAIN 6-10 Last administered on 02/01/19at 20:18; Admin Dose 0.4 MG; Start 01/21/19 at 12:00 Acetaminophen/ Hydrocodone Bitart ([place] (5/325)) 1 tab Q4H PRN PO .PAIN 4-6 Last administered on 01/25/19at 08:34; Admin Dose 1 TAB; Start 01/21/19 at 12:00 Diphenhydramine HCl (Benadryl) 25 mg Q4H PRN IV .PRURITUS; Start 01/21/19 at 12:00 Nalbuphine HCl (Nubain) 10 mg Q4H PRN IV .PRURITUS; Start 01/21/19 at 12:00 Ondansetron HCl (Zofran Inj) 4 mg Q6H PRN IV .NAUSEA/VOMITING Last administered on 01/22/19at 23:48; Admin Dose 4 MG; Start 01/21/19 at 12:00 Trimethobenzamide HCl (Tigan) 200 mg Q6H PRN IM .NAUSEA/VOMITING; Start 01/21/19 at 12:00 Zolpidem Tartrate (Ambien) 5 mg HS MAY REPEAT X 1 PRN PO .INSOMNIA; Start 01/21/19 at 12:00 Naloxone HCl (Narcan) 0.2 mg Q2M PRN IV .RESP RATE; Start 01/21/19 at 12:00 Hydralazine HCl (Apresoline) 10 mg Q4H PRN IV >150/95 Last administered on 01/24/19 05:34; Admin Dose 10 MG; Start 01/21/19 at 14:00 Metoprolol Tartrate (Lopressor) 5 mg Q4H PRN IV HR>110 HOld SBP<100 Last administered on 01/25/19 05:11; Admin Dose 5 MG; Start 01/23/19 at 20:30 Levalbuterol (Xopenex Neb) 0.63 mg Q6H RESP THERAPY HHN Last administered on 02/05/19 07:49; Admin Dose 0.63 MG; Start 01/24/19 at 23:30 Acetaminophen (Tylenol Tab) 650 mg Q6H PRN PO MILD PAIN(1-3)OR ELEVATED TEMP Last administered on 01/29/19 23:29; Admin Dose 650 MG; Start 01/29/19 at 23:30 Al Hydrox/Mg Hydrox/Simethicone (Mag-Al Plus) 30 ml Q4H PRN PO GASTROINTESTINAL UPSET Last administered on 01/30/19 18:39; Admin Dose 30 ML; Start 01/29/19 at 23:30 Atenolol (Tenormin) 50 mg BID PO Last administered on 02/05/19 08:32; Admin D ose 50 MG; Start 01/30/19 at 21:00 Enoxaparin Sodium (Lovenox) 95 mg BID SC Last administered on 02/05/19 08:43; Admin Dose 95 MG; Start 01/30/19 at 21:00 Fluconazole/ Sodium Chloride 50 ml @ 50 mls/hr Q24H IVPB Last administered on 02/04/19 21:19; Admin Dose 50 MLS/HR; Start 01/30/19 at 20:30 Furosemide (Lasix) 20 mg DAILY IV Last administered on 02/05/19 08:31; Admin Dose 20 MG; Start 02/04/19 at 10:30 Cefepime HCl 50 ml @ 100 mls/hr Q12 IVPB Last administered on 02/05/19 08:32; Admin Dose 100 MLS/HR; Start 02/04/19 at 14:00 Metronidazole 100 ml @ 100 mls/hr Q8 IVPB Last administered on 4/23/19at 05:45; Admin Dose 100 MLS/HR; Start 02/04/19 at 14:00 Ann FERNANDEZ Feb 05, 2019 12:24
[2019-02-05] MEDS ORDERED: LIDOCAINE 1% (MPF) 5 ML VIAL ONE (16:19)
--- NOTE | 2019-02-05 18:41 | CONS ---
Assessment/Plan Assessment/Plan Hospital Course (Demo Recall) assessment/impression - sepsis due to complicated intra-abdominal infection and pneumonia - pleural effusion, possible parapneumonic effusion - s/p R sided thoracentesis on 02/05/2019 - s/p open Reagan reversal and colorectal low pelvic anastomosis, segmental partial colectomy, and open incarcerated incisional and parastomal hernia repairs with mesh by Dr. Art on 01/21/2019 - follow up CT on 02/04/2019 did not identify definite point of leak - s/p CT guided drainage of abscess in LLQ on 02/01/2019 - Abdominal wound culture 01/30/19 and abscess culture 01/31/19 grew pseudomonas and joseline albicans - possible anastomotic leak of fecal material - Stage III sigmoid colon cancer, status post prior colectomy/colostomy and chemo in 2018 - Acute kidney injury on chronic kidney disease - Acute on chronic diastolic CHF - Atrial fibrillation. - VIJAY - S/p colostomy reversal - Hx hypertension - Hx left upper extremity DVT recommendations: - pending results: cultures of bacteria, fungi and AFB froom R pleural effusion - added: fluid LDH and protein. Pt's CATHERINE Yen called the lab to confirm that these tests are added - ordered: ultrasound of b/l upper extremities to r/o DVT, phlebitis - continue cefepime and metronidazole (02/04/2019-). Pt previously took meropenem (01/30/2019-02/03/2019) - continue fluconazole (01/30/2019-) - management d/w Pt's two sons, CATHERINE Yen the total time I took to care for this Pt today was from 1600 to 1645 Consultation Date/Type/Reason Admit Date/Time Jan 21, 2019 at 06:18 Initial Consult Date 01/30/19 Type of Consult ID Requesting Provider: ODELL PACHECO Date/Time of Note DATE: 02/05/19 TIME: 18:23 24 HR Interval Summary Free Text/Dictation had R sided thoracentesis and is tired Subjective hx not possible: pt non-verbal Exam/Review of Systems Exam Vitals Vital Signs Date Temp Pulse Resp B/P (MAP) Pulse Ox O2 O2 Flow FiO2 Time Delivery Rate 02/05/19 81 20 109/61 96 Nasal 3.0 16:12 (77) Cannula 02/05/19 99.1 15:14 02/05/19 36 02:13 Intake and Output 02/04/19 02/04/19 02/05/19 1515:00 23:00 07:00 IntakeIntake Total 50 ml 1150 ml 300 ml OutputOutput Total 1510 ml 10 ml BalanceBalance 50 ml -360 ml 290 ml Constitutional: non-verbal, frail, obese Psych: other (asleep) Head: normocephalic, atraumatic Eyes: nl sclera, other (R pink eye) ENMT: nl external ears & nose Neck: non-tender Respiratory: diminished breath sounds Cardiovascular: regular rate and rhythm, nl pulses Gastrointestinal: distended, surgical scars, other (+external drainage catheter and an ostomy bag) Musculoskeletal: No swelling Extremities: edema (b/l UEs, and feet) Neurological: lethargic Skin: No rash or lesions Results Result Diagram: 02/04/19 0601 02/05/19 0451 Results 24hrs Laboratory Tests Test 02/05/19 04:51 Sodium Level 138 Potassium Level 4.4 Chloride Level 107 Carbon Dioxide Level 27 Anion Gap 4 L Blood Urea Nitrogen 11 Creatinine 0.69 Est Glomerular Filtrat Rate mL/min > 60 Glucose Level 120 Calcium Level 8.7 Total Bilirubin 0.3 Direct Bilirubin 0.00 Indirect Bilirubin 0.3 Aspartate Amino Transf (AST/SGOT) 33 Alanine Aminotransferase (ALT/SGPT) 27 Alkaline Phosphatase 112 Total Protein 5.7 L Albumin 2.5 L Globulin 3.20 Albumin/Globulin Ratio 0.78 Medications Medication Current Medications Miscellaneous Information (* Miscellaneous Pharmacy Order) DURAMORPH: 3.5MG EPIDU... GIVEN NEURAXIAL XX ; Start 01/21/19 at 10:00 Hydromorphone HCl (Dilaudid) 0.2 mg Q2H PRN IV .PAIN 1-5 Last administered on 02/02/19at 13:39; Admin Dose 0.2 MG; Start 01/21/19 at 12:00 Hydromorphone HCl (Dilaudid) 0.4 mg Q2H PRN IV .PAIN 6-10 Last administered on 02/01/19at 20:18; Admin Dose 0.4 MG; Start 01/21/19 at 12:00 Acetaminophen/ Hydrocodone Bitart ([place] (5/325)) 1 tab Q4H PRN PO .PAIN 4-6 Last administered on 01/25/19 08:34; Admin Dose 1 TAB; Start 01/21/19 at 12:00 Diphenhydramine HCl (Benadryl) 25 mg Q4H PRN IV .PRURITUS; Start 01/21/19 at 12:00 Nalbuphine HCl (Nubain) 10 mg Q4H PRN IV .PRURITUS; Start 01/21/19 at 12:00 Ondansetron HCl (Zofran Inj) 4 mg Q6H PRN IV .NAUSEA/VOMITING Last administered on 01/22/19 23:48; Admin Dose 4 MG; Start 01/21/19 at 12:00 Trimethobenzamide HCl (Tigan) 200 mg Q6H PRN IM .NAUSEA/VOMITING; Start 01/21/19 at 12:00 Zolpidem Tartrate (Ambien) 5 mg HS MAY REPEAT X 1 PRN PO .INSOMNIA; Start 01/21/19 at 12:00 Naloxone HCl (Narcan) 0.2 mg Q2M PRN IV .RESP RATE; Start 01/21/19 at 12:00 Hydralazine HCl (Apresoline) 10 mg Q4H PRN IV >150/95 Last administered on 01/24/19 05:34; Admin Dose 10 MG; Start 01/21/19 at 14:00 Metoprolol Tartrate (Lopressor) 5 mg Q4H PRN IV HR>110 HOld SBP<100 Last administered on 01/25/19 05:11; Admin Dose 5 MG; Start 01/23/19 at 20:30 Levalbuterol (Xopenex Neb) 0.63 mg Q6H RESP THERAPY HHN Last administered on 02/05/19at 14:01; Admin Dose 0.63 MG; Start 01/24/19 at 23:30 Acetaminophen (Tylenol Tab) 650 mg Q6H PRN PO MILD PAIN(1-3)OR ELEVATED TEMP Last administered on 01/29/19 23:29; Admin Dose 650 MG; Start 01/29/19 at 23:30 Al Hydrox/Mg Hydrox/Simethicone (Mag-Al Plus) 30 ml Q4H PRN PO GASTROINTESTINAL UPSET Last administered on 01/30/19 18:39; Admin Dose 30 ML; Start 01/29/19 at 23:30 Atenolol (Tenormin) 50 mg BID PO Last administered on 02/05/19 08:32; Admin Dose 50 MG; Start 01/30/19 at 21:00 Enoxaparin Sodium (Lovenox) 95 mg BID SC Last administered on 02/05/19 08:43; Admin Dose 95 MG; Start 01/30/19 at 21:00 Fluconazole/ Sodium Chloride 50 ml @ 50 mls/hr Q24H IVPB Last administered on 02/04/19 21:19; Admin Dose 50 MLS/HR; Start 01/30/19 at 20:30 Furosemide (Lasix) 20 mg DAILY IV Last administered on 02/05/19 08:31; Admin Dose 20 MG; Start 02/04/19 at 10:30 Cefepime HCl 50 ml @ 100 mls/hr Q12 IVPB Last administered on 02/05/19 08:32; Admin Dose 100 MLS/HR; Start 02/04/19 at 14:00 Metronidazole 100 ml @ 100 mls/hr Q8 IVPB Last administered on 02/05/19 16:44; Admin Dose 100 MLS/HR; Start 02/04/19 at 14:00 MERCED ESCUDERO M.D. Feb 05, 2019 18:34
--- NOTE | 2019-02-05 18:47 | PN ---
Date/Time of Note Date/Time of Note DATE: 02/05/19 TIME: 18:47 Assessment/Plan VTE Prophylaxis Risk score (from Ns)>0 risk: 9 SCD applied (from Ns): Yes SCD contraindicated: other Pharmacological prophylaxis: other Pharm contraindication: other Lines/Catheters IV C[facility]ter Type (from [facility]): Peripheral IV Urinary Cath still in place: No Assessment/Plan Assessment/Plan -Increased leukocytosis patient is currently on Zosyn and Flagyl, CT of the abdomen and pelvis revealed moderate ascites, questionable peritonitis or abscess increased right lower lobe infiltrate. Dr. Vázquez is following in infection disease consultation. -Possible surgical wound infection, obtain wound cx. -Right lower lobe infiltrate -S/p open Reagan reversal and colorectal low pelvic anastomosis, segmental partial colectomy, and open incarcerated incisional and parastomal hernia repairs with mesh by Dr. Art on 01/21/2019. Continue [place] and Dilaudid as needed for pain and Zofran as needed for nausea. -Stage III sigmoid colon cancer, status post surgery and chemo in 2018. -Acute kidney injury on chronic kidney disease, monitor urine output BUN and creatinine. Dr. Stuart is following in nephrology consultation. -Acute on chronic diastolic CHF -Atrial fibrillation. -Obstructive sleep apnea -History of hypertension -History of left upper extremity DVT Result Diagram: 02/04/19 0601 02/05/19 0451 Results 24hrs Laboratory Tests Test 02/05/19 04:51 Sodium Level 138 Potassium Level 4.4 Chloride Level 107 Carbon Dioxide Level 27 Anion Gap 4 L Blood Urea Nitrogen 11 Creatinine 0.69 Est Glomerular Filtrat Rate mL/min > 60 Glucose Level 120 Calcium Level 8.7 Total Bilirubin 0.3 Direct Bilirubin 0.00 Indirect Bilirubin 0.3 Aspartate Amino Transf (AST/SGOT) 33 Alanine Aminotransferase (ALT/SGPT) 27 Alkaline Phosphatase 112 Total Protein 5.7 L Albumin 2.5 L Globulin 3.20 Albumin/Globulin Ratio 0.78 Subjective 24 Hr Interval Summary Constitutional: febrile, requiring O2 Eyes: no complaints ENT: no complaints Respiratory: no complaints Cardiovascular: no complaints Gastrointestinal: pain Genitourinary: no complaints Musculoskeletal: no complaints Skin: no complaints Neurologic: no complaints Lymphatic: no complaints Psychological: nl mood/affect Immunologic: no complaints Exam/Review of Systems Exam Vitals Vital Signs Date Temp Pulse Resp B/P (MAP) Pulse Ox O2 O2 Flow FiO2 Time Delivery Rate 02/05/19 81 20 109/61 96 Nasal 3.0 16:12 (77) Cannula 02/05/19 99.1 15:14 02/05/19 36 02:13 Intake and Output 02/04/19 02/04/19 02/05/19 1515:00 23:00 07:00 IntakeIntake Total 50 ml 1150 ml 300 ml OutputOutput Total 1510 ml 10 ml BalanceBalance 50 ml -360 ml 290 ml Constitutional: alert, oriented, well developed, obese Head: atraumatic Eyes: nl lids, nl sclera ENMT: nl external ears & nose Neck: non-tender Respiratory: clear to auscultation Cardiovascular: nl pulses, other (s1s2) Gastrointestinal: soft, tender, other (surgical abdoen) Musculoskeletal: nl extremities to inspection Extremities: normal pulses Neurological: nl speech, other (alet/responsive) Skin: other (abdoinal surgical inscion- DDI) Lymph: nontender Results Results 24hrs Laboratory Tests Test 02/05/19 04:51 Sodium Level 138 Potassium Level 4.4 Chloride Level 107 Carbon Dioxide Level 27 Anion Gap 4 L Blood Urea Nitrogen 11 Creatinine 0.69 Est Glomerular Filtrat Rate mL/min > 60 Glucose Level 120 Calcium Level 8.7 Total Bilirubin 0.3 Direct Bilirubin 0.00 Indirect Bilirubin 0.3 Aspartate Amino Transf (AST/SGOT) 33 Alanine Aminotransferase (ALT/SGPT) 27 Alkaline Phosphatase 112 Total Protein 5.7 L Albumin 2.5 L Globulin 3.20 Albumin/Globulin Ratio 0.78 Medications Medication Current Medications Miscellaneous Information (* Miscellaneous Pharmacy Order) DURAMORPH: 3.5MG EPIDU... GIVEN NEURAXIAL XX ; Start 01/21/19 at 10:00 Hydromorphone HCl (Dilaudid) 0.2 mg Q2H PRN IV .PAIN 1-5 Last administered on 02/02/19at 13:39; Admin Dose 0.2 MG; Start 01/21/19 at 12:00 Hydromorphone HCl (Dilaudid) 0.4 mg Q2H PRN IV .PAIN 6-10 Last administered on 02/01/19at 20:18; Admin Dose 0.4 MG; Start 01/21/19 at 12:00 Acetaminophen/ Hydrocodone Bitart ([place] (5/325)) 1 tab Q4H PRN PO .PAIN 4-6 Last administered on 01/25/19 08:34; Admin Dose 1 TAB; Start 01/21/19 at 12:00 Diphenhydramine HCl (Benadryl) 25 mg Q4H PRN IV .PRURITUS; Start 01/21/19 at 12:00 Nalbuphine HCl (Nubain) 10 mg Q4H PRN IV .PRURITUS; Start 01/21/19 at 12:00 Ondansetron HCl (Zofran Inj) 4 mg Q6H PRN IV .NAUSEA/VOMITING Last administered on 01/22/19 23:48; Admin Dose 4 MG; Start 01/21/19 at 12:00 Trimethobenzamide HCl (Tigan) 200 mg Q6H PRN IM .NAUSEA/VOMITING; Start 01/21/19 at 12:00 Zolpidem Tartrate (Ambien) 5 mg HS MAY REPEAT X 1 PRN PO .INSOMNIA; Start 01/21/19 at 12:00 Naloxone HCl (Narcan) 0.2 mg Q2M PRN IV .RESP RATE; Start 01/21/19 at 12:00 Hydralazine HCl (Apresoline) 10 mg Q4H PRN IV >150/95 Last administered on 01/24/19at 05:34; Admin Dose 10 MG; Start 01/21/19 at 14:00 Metoprolol Tartrate (Lopressor) 5 mg Q4H PRN IV HR>110 HOld SBP<100 Last administered on 01/25/19 05:11; Admin Dose 5 MG; Start 01/23/19 at 20:30 Levalbuterol (Xopenex Neb) 0.63 mg Q6H RESP THERAPY HHN Last administered on 02/05/19at 14:01; Admin Dose 0.63 MG; Start 01/24/19 at 23:30 Acetaminophen (Tylenol Tab) 650 mg Q6H PRN PO MILD PAIN(1-3)OR ELEVATED TEMP Last administered on 01/29/19at 23:29; Admin Dose 650 MG; Start 01/29/19 at 23:30 Al Hydrox/Mg Hydrox/Simethicone (Mag-Al Plus) 30 ml Q4H PRN PO GASTROINTESTINAL UPSET Last administered on 01/30/19 18:39; Admin Dose 30 ML; Start 01/29/19 at 23:30 Atenolol (Tenormin) 50 mg BID PO Last administered on 02/05/19 08:32; Admin Dose 50 MG; Start 01/30/19 at 21:00 Enoxaparin Sodium (Lovenox) 95 mg BID SC Last administered on 02/05/19 08:43; Admin Dose 95 MG; Start 01/30/19 at 21:00 Fluconazole/ Sodium Chloride 50 ml @ 50 mls/hr Q24H IVPB Last administered on 02/04/19 21:19; Admin Dose 50 MLS/HR; Start 01/30/19 at 20:30 Furosemide (Lasix) 20 mg DAILY IV Last administered on 02/05/19 08:31; Admin Dose 20 MG; Start 02/04/19 at 10:30 Cefepime HCl 50 ml @ 100 mls/hr Q12 IVPB Last administered on 02/05/19 08:32; Admin Dose 100 MLS/HR; Start 02/04/19 at 14:00 Metronidazole 100 ml @ 100 mls/hr Q8 IVPB Last administered on 02/05/19 16:44; Admin Dose 100 MLS/HR; Start 02/04/19 at 14:00 LUIS HARDWICK Feb 05, 2019 18:47
--- NOTE | 2019-02-05 18:54 | CONS ---
Assessment/Plan Assessment/Plan Hospital Course (Demo Recall) revised assessment/impression - sepsis due to complicated intra-abdominal infection and pneumonia - pleural effusion, possible parapneumonic effusion - s/p R sided thoracentesis on 02/05/2019 - s/p open Reagan reversal and colorectal low pelvic anastomosis, segmental partial colectomy, and open incarcerated incisional and parastomal hernia repairs with mesh by Dr. Art on 01/21/2019 - follow up CT on 02/04/2019 did not identify definite point of leak - s/p CT guided drainage of abscess in LLQ on 02/01/2019 - Abdominal wound culture 01/30/19 and abscess culture 01/31/19 grew pseudomonas and joseline albicans - possible anastomotic leak of fecal material - Stage III sigmoid colon cancer, status post prior colectomy/colostomy and chemo in 2018 - Acute kidney injury on chronic kidney disease - Acute on chronic diastolic CHF - Atrial fibrillation. - VIJAY - S/p colostomy reversal - R conjunctivitis - Hx hypertension - Hx left upper extremity DVT revised recommendations: - pending results: cultures of bacteria, fungi and AFB froom R pleural effusion - added: fluid LDH and protein. Pt's CATHERINE Yen called the lab to confirm that these tests are added - ordered: ultrasound of b/l upper extremities to r/o DVT, phlebitis - continue cefepime and metronidazole (02/04/2019-). Pt previously took meropenem (01/30/2019-02/03/2019) - continue fluconazole (01/30/2019-) - start neomysin eye drop for 7 days (02/05/2019-) - management d/w Pt's two sons, CATHERINE Yen the total time I took to care for this Pt today was from 1600 to 1645 Consultation Date/Type/Reason Admit Date/Time Jan 21, 2019 at 06:18 Initial Consult Date 01/30/19 Type of Consult ID Requesting Provider: ODELL PACHECO Date/Time of Note DATE: 02/05/19 TIME: 18:51 Exam/Review of Systems Exam Vitals Vital Signs Date Temp Pulse Resp B/P (MAP) Pulse Ox O2 O2 Flow FiO2 Time Delivery Rate 02/05/19 81 20 109/61 96 Nasal 3.0 16:12 (77) Cannula 02/05/19 99.1 15:14 02/05/19 36 02:13 Intake and Output 02/04/19 02/04/19 02/05/19 1515:00 23:00 07:00 IntakeIntake Total 50 ml 1150 ml 300 ml OutputOutput Total 1510 ml 10 ml BalanceBalance 50 ml -360 ml 290 ml Results Result Diagram: 02/04/19 0601 02/05/19 0451 Results 24hrs Laboratory Tests Test 02/05/19 04:51 Sodium Level 138 Potassium Level 4.4 Chloride Level 107 Carbon Dioxide Level 27 Anion Gap 4 L Blood Urea Nitrogen 11 Creatinine 0.69 Est Glomerular Filtrat Rate mL/min > 60 Glucose Level 120 Calcium Level 8.7 Total Bilirubin 0.3 Direct Bilirubin 0.00 Indirect Bilirubin 0.3 Aspartate Amino Transf (AST/SGOT) 33 Alanine Aminotransferase (ALT/SGPT) 27 Alkaline Phosphatase 112 Total Protein 5.7 L Albumin 2.5 L Globulin 3.20 Albumin/Globulin Ratio 0.78 Medications Medication Current Medications Miscellaneous Information (* Miscellaneous Pharmacy Order) DURAMORPH: 3.5MG EPIDU... GIVEN NEURAXIAL XX ; Start 01/21/19 at 10:00 Hydromorphone HCl (Dilaudid) 0.2 mg Q2H PRN IV .PAIN 1-5 Last administered on 02/02/19at 13:39; Admin Dose 0.2 MG; Start 01/21/19 at 12:00 Hydromorphone HCl (Dilaudid) 0.4 mg Q2H PRN IV .PAIN 6-10 Last administered on 02/01/19at 20:18; Admin Dose 0.4 MG; Start 01/21/19 at 12:00 Acetaminophen/ Hydrocodone Bitart ([place] (5/325)) 1 tab Q4H PRN PO .PAIN 4-6 Last administered on 01/25/19at 08:34; Admin Dose 1 TAB; Start 01/21/19 at 12:00 Diphenhydramine HCl (Benadryl) 25 mg Q4H PRN IV .PRURITUS; Start 01/21/19 at 12:00 Nalbuphine HCl (Nubain) 10 mg Q4H PRN IV .PRURITUS; Start 01/21/19 at 12:00 Ondansetron HCl (Zofran Inj) 4 mg Q6H PRN IV .NAUSEA/VOMITING Last administered on 01/22/19 23:48; Admin Dose 4 MG; Start 01/21/19 at 12:00 Trimethobenzamide HCl (Tigan) 200 mg Q6H PRN IM .NAUSEA/VOMITING; Start 01/21/19 at 12:00 Zolpidem Tartrate (Ambien) 5 mg HS MAY REPEAT X 1 PRN PO .INSOMNIA; Start 01/21/19 at 12:00 Naloxone HCl (Narcan) 0.2 mg Q2M PRN IV .RESP RATE; Start 01/21/19 at 12:00 Hydralazine HCl (Apresoline) 10 mg Q4H PRN IV >150/95 Last administered on 01/24/19 05:34; Admin Dose 10 MG; Start 01/21/19 at 14:00 Metoprolol Tartrate (Lopressor) 5 mg Q4H PRN IV HR>110 HOld SBP<100 Last administered on 01/25/19 05:11; Admin Dose 5 MG; Start 01/23/19 at 20:30 Levalbuterol (Xopenex Neb) 0.63 mg Q6H RESP THERAPY HHN Last administered on 02/05/19 14:01; Admin Dose 0.63 MG; Start 01/24/19 at 23:30 Acetaminophen (Tylenol Tab) 650 mg Q6H PRN PO MILD PAIN(1-3)OR ELEVATED TEMP Last administered on 01/29/19 23:29; Admin Dose 650 MG; Start 01/29/19 at 23:30 Al Hydrox/Mg Hydrox/Simethicone (Mag-Al Plus) 30 ml Q4H PRN PO GASTROINTESTINAL UPSET Last administered on 01/30/19 18:39; Admin Dose 30 ML; Start 01/29/19 at 23:30 Atenolol (Tenormin) 50 mg BID PO Last administered on 02/05/19 08:32; Admin Dose 50 MG; Start 01/30/19 at 21:00 Enoxaparin Sodium (Lovenox) 95 mg BID SC Last administered on 02/05/19 08:43; Admin Dose 95 MG; Start 01/30/19 at 21:00 Fluconazole/ Sodium Chloride 50 ml @ 50 mls/hr Q24H IVPB Last administered on 02/04/19 21:19; Admin Dose 50 MLS/HR; Start 01/30/19 at 20:30 Furosemide (Lasix) 20 mg DAILY IV Last administered on 02/05/19at 08:31; Admin Dose 20 MG; Start 02/04/19 at 10:30 Cefepime HCl 50 ml @ 100 mls/hr Q12 IVPB Last administered on 02/05/19at 08:32; Admin Dose 100 MLS/HR; Start 02/04/19 at 14:00 Metronidazole 100 ml @ 100 mls/hr Q8 IVPB Last administered on 02/05/19at 16:44; Admin Dose 100 MLS/HR; Start 02/04/19 at 14:00 MERCED ESCUDERO M.D. Feb 05, 2019 18:54
[2019-02-05] MEDS: NEOMYC/POLYMYX/GRAM 10 ML OPH RIGHT EYE SCH (21:00)
[2019-02-05] MEDS: FLUCONAZOLE 100 MG/50 ML (PMX) 50 ML IVPB SCH (23:43)
[2019-02-06] VITALS (13 sets, daily range): BP systolic 115–140; BP diastolic 68–80; PULSE 78–107; RESP 19–20
[2019-02-06] MEDS: LEVALBUTEROL (NEB) 0.63 MG/3 ML AMP HHN SCH ×4 (02:17→19:48)
[2019-02-06] MEDS: metroNIDAZOLE 500 MG/NS (PMX) 100 ML IVPB SCH ×3 (05:11→22:43)
[2019-02-06] MEDS: ATENOLOL 50 MG TAB PO SCH ×2 (08:13→21:17)
[2019-02-06] MEDS: FUROSEMIDE 20 MG INJ IV SCH ×2 (08:13→17:23)
[2019-02-06] MEDS: CEFEPIME 2GM/50 ML (PMX) 50 ML IVPB SCH ×2 (08:13→21:56)
[2019-02-06] MEDS: NEOMYC/POLYMYX/GRAM 10 ML OPH RIGHT EYE SCH ×4 (08:14→21:17)
[2019-02-06] MEDS: ENOXAPARIN 100 MG/ML SYG SC SCH ×2 (08:20→21:53)
--- NOTE | 2019-02-06 12:00 | CONS ---
Assessment/Plan Assessment/Plan Hospital Course (Demo Recall) revised assessment/impression - sepsis due to complicated intra-abdominal infection and pneumonia - pleural effusion, exudative process, parapneumonic effusion LDH 1601 protein 3.2 - s/p R sided thoracentesis on 02/05/2019 - s/p open Reagan reversal and colorectal low pelvic anastomosis, segmental partial colectomy, and open incarcerated incisional and parastomal hernia repairs with mesh by Dr. Art on 01/21/2019 - follow up CT on 02/04/2019 did not identify definite point of leak - s/p CT guided drainage of abscess in LLQ on 02/01/2019 - Abdominal wound culture 01/30/19 and abscess culture 01/31/19 grew pseudomonas and joseline albicans - possible anastomotic leak of fecal material - Stage III sigmoid colon cancer, status post prior colectomy/colostomy and chemo in 2018 - Acute kidney injury on chronic kidney disease - Acute on chronic diastolic CHF - Atrial fibrillation. - VIJAY - S/p colostomy reversal - R conjunctivitis - Hx hypertension - Hx left upper extremity DVT - Superficial thrombus in R cephalic vein in the forearm and in L cephalic vein in the antecubital fossa as visualized on NOY 02/05/2019 revised recommendations: - pending results: cultures of bacteria, fungi and AFB from R pleural effusion - continue cefepime and metronidazole (02/04/2019-). 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 Consultation Date/Type/Reason Admit Date/Time Jan 21, 2019 at 06:18 Initial Consult Date 01/30/19 Type of Consult ID Requesting Provider: ODELL PACHECO Date/Time of Note DATE: 02/06/19 TIME: 11:56 24 HR Interval Summary Constitutional: improved Detailed Summary Eyes: no complaints ENT: no complaints Respiratory: no complaints Cardiovascular: no complaints Gastrointestinal: pain (says "today OK"); No nausea Genitourinary: No other Musculoskeletal: no complaints Skin: no complaints Neurologic: no complaints Exam/Review of Systems Exam Vitals Vital Signs Date Temp Pulse Resp B/P (MAP) Pulse Ox O2 O2 Flow FiO2 Time Delivery Rate 02/06/19 98.0 93 20 140/79 98 11:20 (99) 02/06/19 Nasal 4.0 08:06 Cannula 02/06/19 33 02:18 Intake and Output 02/05/19 02/05/19 02/06/19 1515:00 23:00 07:00 IntakeIntake Total 950 ml 1000 ml OutputOutput Total 950 ml 600 ml BalanceBalance 0 ml 400 ml Constitutional: frail, obese Psych: no complaints, nl mood/affect Head: normocephalic, atraumatic Eyes: nl lids, nl sclera, other (R conjuncitiva is mildly red) ENMT: nl external ears & nose, nl nasal mucosa & septum Neck: No supple Respiratory: clear to auscultation, normal air movement Cardiovascular: regular rate and rhythm, nl pulses Gastrointestinal: distended, firm, surgical scars, other (+ostomy bag plus an external drainage catheter) Musculoskeletal: nl extremities to inspection Extremities: edema (b/l UE) Neurological: lethargic Skin: ecchymosis Results Result Diagram: 02/06/19 0458 02/06/19 0458 Results 24hrs Laboratory Tests Test 02/05/19 16:00 02/06/19 04:58 Body Fluid Type PLEURAL FLUID Body Fluid Total Protein 3.2 Body Fluid Lactate Dehydrogenase 1601 White Blood Count 6.7 Red Blood Count 3.33 L Hemoglobin 9.9 L Hematocrit 30.7 L Mean Corpuscular Volume 92.2 Mean Corpuscular Hemoglobin 29.7 Mean Corpuscular Hemoglobin Concent 32.2 Red Cell Distribution Width 13.4 Platelet Count 396 Mean Platelet Volume 10.6 H Immature Granulocytes % 1.200 H Neutrophils % 79.2 H Lymphocytes % 9.1 L Monocytes % 8.9 Eosinophils % 1.3 Basophils % 0.3 Nucleated Red Blood Cells % 0.0 Immature Granulocytes # 0.080 H Neutrophils # 5.3 Lymphocytes # 0.6 L Monocytes # 0.6 Eosinophils # 0.1 Basophils # 0.0 Nucleated Red Blood Cells # 0.0 Sodium Level 138 Potassium Level 3.9 Chloride Level 106 Carbon Dioxide Level 27 Anion Gap 5 Blood Urea Nitrogen 12 Creatinine 0.71 Est Glomerular Filtrat Rate mL/min > 60 Glucose Level 120 Calcium Level 8.2 L Total Bilirubin 0.2 Direct Bilirubin 0.00 Indirect Bilirubin 0.2 Aspartate Amino Transf (AST/SGOT) 30 Alanine Aminotransferase (ALT/SGPT) 26 Alkaline Phosphatase 102 Total Protein 5.2 L Albumin 2.3 L Globulin 2.90 Albumin/Globulin Ratio 0.79 Medications Medication Current Medications Miscellaneous Information (* Miscellaneous Pharmacy Order) DURAMORPH: 3.5MG EPIDU... GIVEN NEURAXIAL XX ; Start 01/21/19 at 10:00 Hydromorphone HCl (Dilaudid) 0.2 mg Q2H PRN IV .PAIN 1-5 Last administered on 02/02/19at 13:39; Admin Dose 0.2 MG; Start 01/21/19 at 12:00 Hydromorphone HCl (Dilaudid) 0.4 mg Q2H PRN IV .PAIN 6-10 Last administered on 02/01/19at 20:18; Admin Dose 0.4 MG; Start 01/21/19 at 12:00 Acetaminophen/ Hydrocodone Bitart ([place] (5/325)) 1 tab Q4H PRN PO .PAIN 4-6 Last administered on 01/25/19at 08:34; Admin Dose 1 TAB; Start 01/21/19 at 12:00 Diphenhydramine HCl (Benadryl) 25 mg Q4H PRN IV .PRURITUS; Start 01/21/19 at 12:00 Nalbuphine HCl (Nubain) 10 mg Q4H PRN IV .PRURITUS; Start 01/21/19 at 12:00 Ondansetron HCl (Zofran Inj) 4 mg Q6H PRN IV .NAUSEA/VOMITING Last administered on 01/22/19at 23:48; Admin Dose 4 MG; Start 01/21/19 at 12:00 Trimethobenzamide HCl (Tigan) 200 mg Q6H PRN IM .NAUSEA/VOMITING; Start 01/21/19 at 12:00 Zolpidem Tartrate (Ambien) 5 mg HS MAY REPEAT X 1 PRN PO .INSOMNIA; Start 01/21/19 at 12:00 Naloxone HCl (Narcan) 0.2 mg Q2M PRN IV .RESP RATE; Start 01/21/19 at 12:00 Hydralazine HCl (Apresoline) 10 mg Q4H PRN IV >150/95 Last administered on 01/24/19at 05:34; Admin Dose 10 MG; Start 01/21/19 at 14:00 Metoprolol Tartrate (Lopressor) 5 mg Q4H PRN IV HR>110 HOld SBP<100 Last administered on 01/25/19 05:11; Admin Dose 5 MG; Start 01/23/19 at 20:30 Levalbuterol (Xopenex Neb) 0.63 mg Q6H RESP THERAPY HHN Last administered on 02/06/19 08:06; Admin Dose 0.63 MG; Start 01/24/19 at 23:30 Acetaminophen (Tylenol Tab) 650 mg Q6H PRN PO MILD PAIN(1-3)OR ELEVATED TEMP Last administered on 01/29/19 23:29; Admin Dose 650 MG; Start 01/29/19 at 23:30 Al Hydrox/Mg Hydrox/Simethicone (Mag-Al Plus) 30 ml Q4H PRN PO GASTROINTESTINAL UPSET Last administered on 01/30/19 18:39; Admin Dose 30 ML; Start 01/29/19 at 23:30 Atenolol (Tenormin) 50 mg BID PO Last administered on 02/06/19 08:13; Admin Dose 50 MG; Start 01/30/19 at 21:00 Enoxaparin Sodium (Lovenox) 95 mg BID SC Last administered on 02/06/19 08:20; Admin Dose 95 MG; Start 01/30/19 at 21:00 Fluconazole/ Sodium Chloride 50 ml @ 50 mls/hr Q24H IVPB Last administered on 02/05/19 23:43; Admin Dose 50 MLS/HR; Start 01/30/19 at 20:30 Furosemide (Lasix) 20 mg DAILY IV Last administered on 02/06/19 08:13; Admin Dose 20 MG; Start 02/04/19 at 10:30 Cefepime HCl 50 ml @ 100 mls/hr Q12 IVPB Last administered on 02/06/19 08:13; Admin Dose 100 MLS/HR; Start 02/04/19 at 14:00 Metronidazole 100 ml @ 100 mls/hr Q8 IVPB Last administered on 02/06/19 05:11; Admin Dose 100 MLS/HR; Start 02/04/19 at 14:00 Neomycin/ Polymyxin/ Gramicidin (Neosporin Oph Drop) 1 drop QID RIGHT EYE ; Start 02/05/19 at 21:00; Stop 02/12/19 at 20:59 MERCED ESCUDERO M.D. Feb 06, 2019 12:00
--- NOTE | 2019-02-06 15:24 | CONS ---
Assessment/Plan Assessment/Plan Hospital Course (Demo Recall) IMPRESSION: 1. Tachycardia, at this time sinus tachycardia in the setting of significant pain, fevers, status post surgery. NL EF by echo 60-65. ON had onset of AF with RVR 2. Possible congestive heart failure by chest x-ray with the patient having the onset of acute renal failure at this time. 3. Hypertension 4. Postoperative status post reversal colostomy. 5. Fevers postop. 6. Renal failure, acute.-improved now 7. History of colon carcinoma status post prior colectomy with colostomy. 8. Hypernatremia, improved 9. Hypomagnesemia-improved 10. Leukocytosis. Recc: -Tele -Continue PO BB and lovenox systemic anticoagulation -s/p IVP of digoxin with improved HR control -Pain control -Continue abx's and f/u cx data -Follow volume status closely and increase lasix diuresis Consultation Date/Type/Reason Admit Date/Time Jan 21, 2019 at 06:18 Initial Consult Date 01/23/19 Type of Consult Cardiology Reason for Consultation AF Requesting Provider: ODELL PACHECO Date/Time of Note DATE: 02/06/19 TIME: 15:21 Exam/Review of Systems Vital Signs Vitals Vital Signs Date Temp Pulse Resp B/P (MAP) Pulse Ox O2 O2 Flow FiO2 Time Delivery Rate 02/06/19 93 18 100 Nasal 4.0 14:08 Cannula 02/06/19 98.0 140/79 11:20 (99) 02/06/19 33 02:18 Intake and Output 02/05/19 02/05/19 02/06/19 1414:59 22:59 06:59 IntakeIntake Total 950 ml 1000 ml OutputOutput Total 950 ml 600 ml BalanceBalance 0 ml 400 ml Exam Exam Review of Systems: CONSTITUTIONAL: No fevers, chills. PULMONARY: mild sob CARDIOVASCULAR:mild sob GASTROINTESTINAL: No nausea/vomiting. GENITOURINARY: No hematuria/dysuria. MUSCULOSKELETAL: No myagias/arthalgias. PSYCHIATRIC: The patient denies depression. NEUROLOGIC: No weakness Constitutional: alert Psych: no complaints ENMT: mucosa pink and moist Neck: supple, jvd (9 cm water) Respiratory: diminished breath sounds Cardiovascular: regular rate and rhythm Gastrointestinal: soft, non-tender Musculoskeletal: muscle tone (normal) Extremities: edema Neurological: other (No focal deficits) Labs Result Diagram: 02/06/19 0458 02/06/19 0458 Results 24hrs Laboratory Tests Test 02/05/19 16:00 02/06/19 04:58 Body Fluid Type PLEURAL FLUID Body Fluid Total Protein 3.2 Body Fluid Lactate Dehydrogenase 1601 White Blood Count 6.7 Red Blood Count 3.33 L Hemoglobin 9.9 L Hematocrit 30.7 L Mean Corpuscular Volume 92.2 Mean Corpuscular Hemoglobin 29.7 Mean Corpuscular Hemoglobin Concent 32.2 Red Cell Distribution Width 13.4 Platelet Count 396 Mean Platelet Volume 10.6 H Immature Granulocytes % 1.200 H Neutrophils % 79.2 H Lymphocytes % 9.1 L Monocytes % 8.9 Eosinophils % 1.3 Basophils % 0.3 Nucleated Red Blood Cells % 0.0 Immature Granulocytes # 0.080 H Neutrophils # 5.3 Lymphocytes # 0.6 L Monocytes # 0.6 Eosinophils # 0.1 Basophils # 0.0 Nucleated Red Blood Cells # 0.0 Sodium Level 138 Potassium Level 3.9 Chloride Level 106 Carbon Dioxide Level 27 Anion Gap 5 Blood Urea Nitrogen 12 Creatinine 0.71 Est Glomerular Filtrat Rate mL/min > 60 Glucose Level 120 Calcium Level 8.2 L Total Bilirubin 0.2 Direct Bilirubin 0.00 Indirect Bilirubin 0.2 Aspartate Amino Transf (AST/SGOT) 30 Alanine Aminotransferase (ALT/SGPT) 26 Alkaline Phosphatase 102 Total Protein 5.2 L Albumin 2.3 L Globulin 2.90 Albumin/Globulin Ratio 0.79 Medications Medications Current Medications Miscellaneous Information (* Miscellaneous Pharmacy Order) DURAMORPH: 3.5MG EPIDU... GIVEN NEURAXIAL XX ; Start 01/21/19 at 10:00 Hydromorphone HCl (Dilaudid) 0.2 mg Q2H PRN IV .PAIN 1-5 Last administered on 02/02/19at 13:39; Admin Dose 0.2 MG; Start 01/21/19 at 12:00 Hydromorphone HCl (Dilaudid) 0.4 mg Q2H PRN IV .PAIN 6-10 Last administered on 02/01/19at 20:18; Admin Dose 0.4 MG; Start 01/21/19 at 12:00 Acetaminophen/ Hydrocodone Bitart ([place] (5/325)) 1 tab Q4H PRN PO .PAIN 4-6 Last administered on 01/25/19 08:34; Admin Dose 1 TAB; Start 01/21/19 at 12:00 Diphenhydramine HCl (Benadryl) 25 mg Q4H PRN IV .PRURITUS; Start 01/21/19 at 12:00 Nalbuphine HCl (Nubain) 10 mg Q4H PRN IV .PRURITUS; Start 01/21/19 at 12:00 Ondansetron HCl (Zofran Inj) 4 mg Q6H PRN IV .NAUSEA/VOMITING Last administered on 01/22/19 23:48; Admin Dose 4 MG; Start 01/21/19 at 12:00 Trimethobenzamide HCl (Tigan) 200 mg Q6H PRN IM .NAUSEA/VOMITING; Start 01/21/19 at 12:00 Zolpidem Tartrate (Ambien) 5 mg HS MAY REPEAT X 1 PRN PO .INSOMNIA; Start 01/21/19 at 12:00 Naloxone HCl (Narcan) 0.2 mg Q2M PRN IV .RESP RATE; Start 01/21/19 at 12:00 Hydralazine HCl (Apresoline) 10 mg Q4H PRN IV >150/95 Last administered on 01/24/19 05:34; Admin Dose 10 MG; Start 01/21/19 at 14:00 Metoprolol Tartrate (Lopressor) 5 mg Q4H PRN IV HR>110 HOld SBP<100 Last administered on 01/25/19 05:11; Admin Dose 5 MG; Start 01/23/19 at 20:30 Levalbuterol (Xopenex Neb) 0.63 mg Q6H RESP THERAPY HHN Last administered on 02/06/19 13:57; Admin Dose 0.63 MG; Start 01/24/19 at 23:30 Acetaminophen (Tylenol Tab) 650 mg Q6H PRN PO MILD PAIN(1-3)OR ELEVATED TEMP Last administered on 01/29/19 23:29; Admin Dose 650 MG; Start 01/29/19 at 23:30 Al Hydrox/Mg Hydrox/Simethicone (Mag-Al Plus) 30 ml Q4H PRN PO GASTROINTESTINAL UPSET Last administered on 01/30/19 18:39; Admin Dose 30 ML; Start 01/29/19 at 23:30 Atenolol (Tenormin) 50 mg BID PO Last administered on 02/06/19 08:13; Admin Dose 50 MG; Start 01/30/19 at 21:00 Enoxaparin Sodium (Lovenox) 95 mg BID SC Last administered on 02/06/19 08:20; Admin Dose 95 MG; Start 01/30/19 at 21:00 Fluconazole/ Sodium Chloride 50 ml @ 50 mls/hr Q24H IVPB Last administered on 02/05/19at 23:43; Admin Dose 50 MLS/HR; Start 01/30/19 at 20:30 Furosemide (Lasix) 20 mg DAILY IV Last administered on 02/06/19 08:13; Admin Dose 20 MG; Start 02/04/19 at 10:30 Cefepime HCl 50 ml @ 100 mls/hr Q12 IVPB Last administered on 02/06/19 08:13; Admin Dose 100 MLS/HR; Start 02/04/19 at 14:00 Metronidazole 100 ml @ 100 mls/hr Q8 IVPB Last administered on 02/06/19 13:34; Admin Dose 100 MLS/HR; Start 02/04/19 at 14:00 Neomycin/ Polymyxin/ Gramicidin (Neosporin Oph Drop) 1 drop QID RIGHT EYE Last administered on 02/06/19 13:33; Admin Dose 1 DROP; Start 02/05/19 at 21:00; Stop 02/12/19 at 20:59 EUGENE ANDERSON Feb 06, 2019 15:24
--- NOTE | 2019-02-06 18:02 | PN ---
Date/Time of Note Date/Time of Note DATE: 02/06/19 TIME: 17:56 Assessment/Plan VTE Prophylaxis Risk score (from Ns)>0 risk: 8 SCD applied (from [facility] No SCD contraindicated: other Pharmacological prophylaxis: other Pharm contraindication: other Lines/Catheters IV Catheter Type (from [facility]): Peripheral IV Urinary Cath still in place: No Assessment/Plan Assessment/Plan -Increased leukocytosis patient is currently on Zosyn and Flagyl, CT of the abdomen and pelvis revealed moderate ascites, questionable peritonitis or abscess increased right lower lobe infiltrate. Dr. Vázquez is following in infection disease consultation. -Possible surgical wound infection, obtain wound cx. -Right lower lobe infiltrate -S/p open Reagan reversal and colorectal low pelvic anastomosis, segmental partial colectomy, and open incarcerated incisional and parastomal hernia repairs with mesh by Dr. Art on 01/21/2019. Continue [place] and Dilaudid as needed for pain and Zofran as needed for nausea. -Stage III sigmoid colon cancer, status post surgery and chemo in 2018. -Acute kidney injury on chronic kidney disease, monitor urine output BUN and creatinine. Dr. Stuart is following in nephrology consultation. -Acute on chronic diastolic CHF -Atrial fibrillation. -Obstructive sleep apnea -History of hypertension -History of left upper extremity DVT Result Diagram: 02/06/198 02/06/19 0458 Results 24hrs Laboratory Tests Test 02/06/19 04:58 White Blood Count 6.7 Red Blood Count 3.33 L Hemoglobin 9.9 L Hematocrit 30.7 L Mean Corpuscular Volume 92.2 Mean Corpuscular Hemoglobin 29.7 Mean Corpuscular Hemoglobin Concent 32.2 Red Cell Distribution Width 13.4 Platelet Count 396 Mean Platelet Volume 10.6 H Immature Granulocytes % 1.200 H Neutrophils % 79.2 H Lymphocytes % 9.1 L Monocytes % 8.9 Eosinophils % 1.3 Basophils % 0.3 Nucleated Red Blood Cells % 0.0 Immature Granulocytes # 0.080 H Neutrophils # 5.3 Lymphocytes # 0.6 L Monocytes # 0.6 Eosinophils # 0.1 Basophils # 0.0 Nucleated Red Blood Cells # 0.0 Sodium Level 138 Potassium Level 3.9 Chloride Level 106 Carbon Dioxide Level 27 Anion Gap 5 Blood Urea Nitrogen 12 Creatinine 0.71 Est Glomerular Filtrat Rate mL/min > 60 Glucose Level 120 Calcium Level 8.2 L Total Bilirubin 0.2 Direct Bilirubin 0.00 Indirect Bilirubin 0.2 Aspartate Amino Transf (AST/SGOT) 30 Alanine Aminotransferase (ALT/SGPT) 26 Alkaline Phosphatase 102 Total Protein 5.2 L Albumin 2.3 L Globulin 2.90 Albumin/Globulin Ratio 0.79 Subjective 24 Hr Interval Summary Free Text/Dictation -sp thoracenteses - feels better Eyes: no complaints ENT: no complaints Respiratory: no complaints Cardiovascular: no complaints Gastrointestinal: pain Genitourinary: no complaints Skin: no complaints Neurologic: no complaints Psychological: nl mood/affect Immunologic: no complaints Exam/Review of Systems Exam Vitals Vital Signs Date Temp Pulse Resp B/P (MAP) Pulse Ox O2 O2 Flow FiO2 Time Delivery Rate 02/06/19 4.0 16:17 02/06/19 78 16:06 02/06/19 97.9 20 133/72 98 15:50 (92) 02/06/19 Nasal 14:08 Cannula 02/06/19 33 02:18 Intake and Output 02/05/19 02/05/19 02/06/19 1515:00 23:00 07:00 IntakeIntake Total 950 ml 1000 ml OutputOutput Total 950 ml 600 ml BalanceBalance 0 ml 400 ml Constitutional: alert, well developed, obese Psych: nl mood/affect Eyes: nl lids, nl sclera ENMT: nl external ears & nose Respiratory: diminished breath sounds Cardiovascular: nl pulses, other (s1s2) Gastrointestinal: soft, other (sugical abdomen) Musculoskeletal: muscle weakness Extremities: normal pulses Results Results 24hrs Laboratory Tests Test 02/06/19 04:58 White Blood Count 6.7 Red Blood Count 3.33 L Hemoglobin 9.9 L Hematocrit 30.7 L Mean Corpuscular Volume 92.2 Mean Corpuscular Hemoglobin 29.7 Mean Corpuscular Hemoglobin Concent 32.2 Red Cell Distribution Width 13.4 Platelet Count 396 Mean Platelet Volume 10.6 H Immature Granulocytes % 1.200 H Neutrophils % 79.2 H Lymphocytes % 9.1 L Monocytes % 8.9 Eosinophils % 1.3 Basophils % 0.3 Nucleated Red Blood Cells % 0.0 Immature Granulocytes # 0.080 H Neutrophils # 5.3 Lymphocytes # 0.6 L Monocytes # 0.6 Eosinophils # 0.1 Basophils # 0.0 Nucleated Red Blood Cells # 0.0 Sodium Level 138 Potassium Level 3.9 Chloride Level 106 Carbon Dioxide Level 27 Anion Gap 5 Blood Urea Nitrogen 12 Creatinine 0.71 Est Glomerular Filtrat Rate mL/min > 60 Glucose Level 120 Calcium Level 8.2 L Total Bilirubin 0.2 Direct Bilirubin 0.00 Indirect Bilirubin 0.2 Aspartate Amino Transf (AST/SGOT) 30 Alanine Aminotransferase (ALT/SGPT) 26 Alkaline Phosphatase 102 Total Protein 5.2 L Albumin 2.3 L Globulin 2.90 Albumin/Globulin Ratio 0.79 Medications Medication Current Medications Miscellaneous Information (* Miscellaneous Pharmacy Order) DURAMORPH: 3.5MG EPIDU... GIVEN NEURAXIAL XX ; Start 01/21/19 at 10:00 Hydromorphone HCl (Dilaudid) 0.2 mg Q2H PRN IV .PAIN 1-5 Last administered on 02/02/19at 13:39; Admin Dose 0.2 MG; Start 01/21/19 at 12:00 Hydromorphone HCl (Dilaudid) 0.4 mg Q2H PRN IV .PAIN 6-10 Last administered on 02/01/19at 20:18; Admin Dose 0.4 MG; Start 01/21/19 at 12:00 Acetaminophen/ Hydrocodone Bitart ([place] (5/325)) 1 tab Q4H PRN PO .PAIN 4-6 Last administered on 01/25/19at 08:34; Admin Dose 1 TAB; Start 01/21/19 at 12:00 Diphenhydramine HCl (Benadryl) 25 mg Q4H PRN IV .PRURITUS; Start 01/21/19 at 12:00 Nalbuphine HCl (Nubain) 10 mg Q4H PRN IV .PRURITUS; Start 01/21/19 at 12:00 Ondansetron HCl (Zofran Inj) 4 mg Q6H PRN IV .NAUSEA/VOMITING Last administered on 01/22/19at 23:48; Admin Dose 4 MG; Start 01/21/19 at 12:00 Trimethobenzamide HCl (Tigan) 200 mg Q6H PRN IM .NAUSEA/VOMITING; Start 01/21/19 at 12:00 Zolpidem Tartrate (Ambien) 5 mg HS MAY REPEAT X 1 PRN PO .INSOMNIA; Start 01/21/19 at 12:00 Naloxone HCl (Narcan) 0.2 mg Q2M PRN IV .RESP RATE; Start 01/21/19 at 12:00 Hydralazine HCl (Apresoline) 10 mg Q4H PRN IV >150/95 Last administered on 01/24/19 05:34; Admin Dose 10 MG; Start 01/21/19 at 14:00 Metoprolol Tartrate (Lopressor) 5 mg Q4H PRN IV HR>110 HOld SBP<100 Last administered on 01/25/19 05:11; Admin Dose 5 MG; Start 01/23/19 at 20:30 Levalbuterol (Xopenex Neb) 0.63 mg Q6H RESP THERAPY HHN Last administered on 02/06/19 13:57; Admin Dose 0.63 MG; Start 01/24/19 at 23:30 Acetaminophen (Tylenol Tab) 650 mg Q6H PRN PO MILD PAIN(1-3)OR ELEVATED TEMP Last administered on 01/29/19 23:29; Admin Dose 650 MG; Start 01/29/19 at 23:30 Al Hydrox/Mg Hydrox/Simethicone (Mag-Al Plus) 30 ml Q4H PRN PO GASTROINTESTINAL UPSET Last administered on 01/30/19 18:39; Admin Dose 30 ML; Start 01/29/19 at 23:30 Atenolol (Tenormin) 50 mg BID PO Last administered on 02/06/19 08:13; Admin Dose 50 MG; Start 01/30/19 at 21:00 Enoxaparin Sodium (Lovenox) 95 mg BID SC Last administered on 02/06/19 08:20; Admin Dose 95 MG; Start 01/30/19 at 21:00 Fluconazole/ Sodium Chloride 50 ml @ 50 mls/hr Q24H IVPB Last administered on 02/05/19 23:43; Admin Dose 50 MLS/HR; Start 01/30/19 at 20:30 Cefepime HCl 50 ml @ 100 mls/hr Q12 IVPB Last administered on 02/06/19 08:13; Admin Dose 100 MLS/HR; Start 02/04/19 at 14:00 Metronidazole 100 ml @ 100 mls/hr Q8 IVPB Last administered on 02/06/19 13:34; Admin Dose 100 MLS/HR; Start 02/04/19 at 14:00 Neomycin/ Polymyxin/ Gramicidin (Neosporin Oph Drop) 1 drop QID RIGHT EYE Last administered on 02/06/19at 17:23; Admin Dose 1 DROP; Start 02/05/19 at 21:00; Stop 02/12/19 at 20:59 Furosemide (Lasix) 20 mg BID DIURETICS IV Last administered on 02/06/19at 17:23; Admin Dose 20 MG; Start 02/06/19 at 18:00 LUIS HARDWICK Feb 06, 2019 18:02
[2019-02-06] MEDS: FLUCONAZOLE 100 MG/50 ML (PMX) 50 ML IVPB SCH (21:16)
[2019-02-07] VITALS (9 sets, daily range): BP systolic 121–163; BP diastolic 70–81; PULSE 79–101; RESP 18–20
[2019-02-07] MEDS: LEVALBUTEROL (NEB) 0.63 MG/3 ML AMP HHN SCH ×4 (02:21→21:32)
[2019-02-07] MEDS: metroNIDAZOLE 500 MG/NS (PMX) 100 ML IVPB SCH ×3 (05:44→22:24)
[2019-02-07] MEDS: FUROSEMIDE 20 MG INJ IV SCH ×2 (05:45→17:09)
[2019-02-07] MEDS: CEFEPIME 2GM/50 ML (PMX) 50 ML IVPB SCH ×2 (08:05→21:21)
[2019-02-07] MEDS: NEOMYC/POLYMYX/GRAM 10 ML OPH RIGHT EYE SCH ×4 (08:06→21:31)
[2019-02-07] MEDS: ATENOLOL 50 MG TAB PO SCH ×2 (08:06→21:24)
[2019-02-07] MEDS: ENOXAPARIN 100 MG/ML SYG SC SCH ×2 (08:14→21:30)
--- NOTE | 2019-02-07 10:08 | CONS ---
[facility] HCIS Consult Follow-up Patient Name: Santiago Kelly Unit Number: [id number] Date of : 1960 Patient Status: Admitted Inpatient Attending Doctor: Ann Art Edit: MERCED RENNER M.D. on 02/07/19 @ 21:16 [place]: I discussed the management with MATTRESS STRIPPER Zully and agree Assessment/Plan Assessment/Plan Hospital Course (Demo Recall) assessment/impression: - Sepsis due to complicated intra-abdominal infection and pneumonia, improved - pleural effusion, exudative process, parapneumonic effusion LDH 1601 protein 3.2 - S/p R sided thoracentesis on 02/05/2019 - S/p open Reagan reversal and colorectal low pelvic anastomosis, segmental partial colectomy, and open incarcerated incisional and parastomal hernia repairs with mesh by Dr. Art on 01/21/2019 - Follow up CT on 02/04/2019 did not identify definite point of leak - S/p CT guided drainage of abscess in LLQ on 02/01/2019 - Abdominal wound culture 01/30/19 and abscess culture 01/31/19 grew pseudomonas and joseline albicans - Possible anastomotic leak of fecal material - Stage III sigmoid colon cancer, status post prior colectomy/colostomy and chemo in 2018 - Acute kidney injury on chronic kidney disease - Acute on chronic diastolic CHF - Atrial fibrillation. - VIJAY - S/p colostomy reversal - R conjunctivitis - Hx hypertension - Hx left upper extremity DVT - Superficial thrombus in R cephalic vein in the forearm and in L cephalic vein in the antecubital fossa as visualized on NOY 02/05/2019 recommendations: - pending results: cultures of bacteria, fungi and AFB from R pleural effusion (NGTD) - continue cefepime and metronidazole (02/04/2019-). Pt previously took meropenem (01/30/2019-02/03/2019) - continue fluconazole (01/30/2019-) - continue neomycin eye drop for 7 days (02/05/2019-) - awaiting gastrograffin enema Management d/w patient, pt's family at bedside, CATHERINE Acuña, and with Dr. Renner Consultation Date/Type/Reason Admit Date/Time Jan 21, 2019 at 06:18 Initial Consult Date 01/30/19 Type of Consult Infectious Disease Requesting Provider: ODELL PACHECO Date/Time of Note DATE: 02/07/19 TIME: 10:04 24 HR Interval Summary Free Text/Dictation NPO since MN, awaiting Gastrograffin enema, and O2 weaned down from 4 to 3L via NC. Pt ambulated in hallway earlier. C/o intermittent SOB. Denies pain, n/v/d, dysuria. States feels tired ("[place]"). Exam/Review of Systems Exam Vitals Vital Signs Date Temp Pulse Resp B/P (MAP) Pulse Ox O2 O2 Flow FiO2 Time Delivery Rate 02/07/19 94 08:04 02/07/19 3.0 08:02 02/07/19 20 94 Nasal 08:02 Cannula 02/07/19 98.0 121/73 07:27 (89) 02/06/19 33 02:18 Intake and Output 02/06/19 02/06/19 02/07/19 1515:00 23:00 07:00 IntakeIntake Total 50 ml 1150 ml 100 ml OutputOutput Total 900 ml 350 ml BalanceBalance 50 ml 250 ml -250 ml Constitutional: alert, oriented, well developed, frail, obese Psych: nl mood/affect Head: normocephalic, atraumatic Eyes: nl lids, other (Mild R conjunctival erythema, no drainage) ENMT: nl external ears & nose, nl lips & teeth, nl nasal mucosa & septum, mucosa pink and moist, other (just finished brushing his teeth) Neck: supple Respiratory: clear to auscultation, diminished breath sounds (at bases), other (On O2 at 3L via NC) Cardiovascular: regular rate and rhythm, nl pulses Gastrointestinal: soft, distended, surgical scars, other (+ostomy bag; +external drainage catheter that was recently emptied) Musculoskeletal: nl extremities to inspection Extremities: edema Neurological: nl mental status, nl speech (Slovenian speaking) Skin: nl turgor, ecchymosis Results Result Diagram: 02/06/19 0458 02/07/19 0506 Results 24hrs Laboratory Tests Test 02/07/19 05:06 Sodium Level 138 Potassium Level 3.3 L Chloride Level 105 Carbon Dioxide Level 28 Anion Gap 5 Blood Urea Nitrogen 10 Creatinine 0.63 Est Glomerular Filtrat Rate mL/min > 60 Glucose Level 116 Calcium Level 8.2 L Total Bilirubin 0.2 Direct Bilirubin 0.00 Indirect Bilirubin 0.2 Aspartate Amino Transf (AST/SGOT) 35 Alanine Aminotransferase (ALT/SGPT) 27 Alkaline Phosphatase 98 Total Protein 5.3 L Albumin 2.4 L Globulin 2.90 Albumin/Globulin Ratio 0.82 Medications Medication Current Medications Miscellaneous Information (* Miscellaneous Pharmacy Order) DURAMORPH: 3.5MG EPIDU... GIVEN NEURAXIAL XX ; Start 01/21/19 at 10:00 Hydromorphone HCl (Dilaudid) 0.2 mg Q2H PRN IV .PAIN 1-5 Last administered on 02/02/19at 13:39; Admin Dose 0.2 MG; Start 01/21/19 at 12:00 Hydromorphone HCl (Dilaudid) 0.4 mg Q2H PRN IV .PAIN 6-10 Last administered on 02/01/19at 20:18; Admin Dose 0.4 MG; Start 01/21/19 at 12:00 Acetaminophen/ Hydrocodone Bitart ([place] (5/325)) 1 tab Q4H PRN PO .PAIN 4-6 Last administered on 01/25/19at 08:34; Admin Dose 1 TAB; Start 01/21/19 at 12:00 Diphenhydramine HCl (Benadryl) 25 mg Q4H PRN IV .PRURITUS; Start 01/21/19 at 12:00 Nalbuphine HCl (Nubain) 10 mg Q4H PRN IV .PRURITUS; Start 01/21/19 at 12:00 Ondansetron HCl (Zofran Inj) 4 mg Q6H PRN IV .NAUSEA/VOMITING Last administered on 01/22/19at 23:48; Admin Dose 4 MG; Start 01/21/19 at 12:00 Trimethobenzamide HCl (Tigan) 200 mg Q6H PRN IM .NAUSEA/VOMITING; Start 01/21/19 at 12:00 Zolpidem Tartrate (Ambien) 5 mg HS MAY REPEAT X 1 PRN PO .INSOMNIA; Start 01/21/19 at 12:00 Naloxone HCl (Narcan) 0.2 mg Q2M PRN IV .RESP RATE; Start 01/21/19 at 12:00 Hydralazine HCl (Apresoline) 10 mg Q4H PRN IV >150/95 Last administered on 01/24/19 05:34; Admin Dose 10 MG; Start 01/21/19 at 14:00 Metoprolol Tartrate (Lopressor) 5 mg Q4H PRN IV HR>110 HOld SBP<100 Last administered on 01/25/19 05:11; Admin Dose 5 MG; Start 01/23/19 at 20:30 Levalbuterol (Xopenex Neb) 0.63 mg Q6H RESP THERAPY HHN Last administered on 02/07/19 07:59; Admin Dose 0.63 MG; Start 01/24/19 at 23:30 Acetaminophen (Tylenol Tab) 650 mg Q6H PRN PO MILD PAIN(1-3)OR ELEVATED TEMP [place] [facility] administered on 01/29/19 23:29; Admin Dose 650 MG; Start 01/29/19 at 23:30 Al Hydrox/Mg Hydrox/Simethicone (Mag-Al Plus) 30 ml Q4H PRN PO GASTROINTESTINAL UPSET Last administered on 01/30/19 18:39; Admin Dose 30 ML; Start 01/29/19 at 23:30 Atenolol (Tenormin) 50 mg BID PO Last administered on 02/07/19 08:06; Admin Dose 50 MG; Start 01/30/19 at 21:00 Enoxaparin Sodium (Lovenox) 95 mg BID SC Last administered on 02/07/19 08:14; Admin Dose 95 MG; Start 01/30/19 at 21:00 Fluconazole/ Sodium Chloride 50 ml @ 50 mls/hr Q24H IVPB Last administered on 02/06/19 21:16; Admin Dose 50 MLS/HR; Start 01/30/19 at 20:30 Cefepime HCl 50 ml @ 100 mls/hr Q12 IVPB Last administered on 4/25/19at 08:05; Admin Dose 100 MLS/HR; Start 02/04/19 at 14:00 Metronidazole 100 ml @ 100 mls/hr Q8 IVPB Last administered on 02/07/19at 05:44; Admin Dose 100 MLS/HR; Start 02/04/19 at 14:00 Neomycin/ Polymyxin/ Gramicidin (Neosporin Oph Drop) 1 drop QID RIGHT EYE Last administered on 02/07/19 08:06; Admin Dose 1 DROP; Start 02/05/19 at 21:00; Stop 02/12/19 at 20:59 Furosemide (Lasix) 20 mg BID DIURETICS IV Last administered on 02/07/19at 05:45; Admin Dose 20 MG; Start 02/06/19 at 18:00 YVETTE BAÑUELOS NP Feb 07, 2019 10:08
--- NOTE | 2019-02-07 12:29 | CONS ---
Assessment/Plan Assessment/Plan Hospital Course (Demo Recall) IMPRESSION: 1. Tachycardia, at this time sinus tachycardia in the setting of significant pain, fevers, status post surgery. NL EF by echo 60-65. ON had onset of AF with RVR 2. Possible congestive heart failure by chest x-ray with the patient having the onset of acute renal failure at this time. 3. Hypertension 4. Postoperative status post reversal colostomy. 5. Fevers postop. 6. Renal failure, acute.-improved now 7. History of colon carcinoma status post prior colectomy with colostomy. 8. Hypernatremia, improved 9. Hypomagnesemia-improved 10. Leukocytosis. Recc: -Tele -Continue PO BB and lovenox systemic anticoagulation -s/p IVP of digoxin with improved HR control -Pain control -Continue abx's and f/u cx data -Follow volume status closely s/p increase lasix diuresis -Awaiting gastrograffin enema Consultation Date/Type/Reason Admit Date/Time Jan 21, 2019 at 06:18 Initial Consult Date 01/23/19 Type of Consult Cardiology Reason for Consultation AF Requesting Provider: ODELL PACHECO Date/Time of Note DATE: 02/07/19 TIME: 12:26 Exam/Review of Systems Vital Signs Vitals Vital Signs Date Temp Pulse Resp B/P (MAP) Pulse Ox O2 O2 Flow FiO2 Time Delivery Rate 02/07/19 90 12:02 02/07/19 98.0 19 130/70 97 11:58 (90) 02/07/19 3.0 08:02 02/07/19 Nasal 08:02 Cannula 02/06/19 33 02:18 Intake and Output 02/06/19 02/06/19 02/07/19 1515:00 23:00 07:00 IntakeIntake Total 50 ml 1150 ml 100 ml OutputOutput Total 900 ml 350 ml BalanceBalance 50 ml 250 ml -250 ml Exam Exam Review of Systems: CONSTITUTIONAL: No fevers, chills. PULMONARY: No sob CARDIOVASCULAR: No chest pain/palpitations GASTROINTESTINAL:abd pain GENITOURINARY: No hematuria/dysuria. MUSCULOSKELETAL: No myagias/arthalgias. PSYCHIATRIC: The patient denies depression. NEUROLOGIC: No weakness Constitutional: alert Psych: no complaints Head: normocephalic ENMT: mucosa pink and moist Neck: supple, jvd (9 cm water) Respiratory: diminished breath sounds (at bases/B) Cardiovascular: regular rate and rhythm Gastrointestinal: soft, distended Extremities: edema (none) Neurological: other (No focal deficits) Labs Result Diagram: 02/06/19 0458 02/07/19 0506 Results 24hrs Laboratory Tests Test 02/07/19 05:06 Sodium Level 138 Potassium Level 3.3 L Chloride Level 105 Carbon Dioxide Level 28 Anion Gap 5 Blood Urea Nitrogen 10 Creatinine 0.63 Est Glomerular Filtrat Rate mL/min > 60 Glucose Level 116 Calcium Level 8.2 L Total Bilirubin 0.2 Direct Bilirubin 0.00 Indirect Bilirubin 0.2 Aspartate Amino Transf (AST/SGOT) 35 Alanine Aminotransferase (ALT/SGPT) 27 Alkaline Phosphatase 98 Total Protein 5.3 L Albumin 2.4 L Globulin 2.90 Albumin/Globulin Ratio 0.82 Medications Medications Current Medications Miscellaneous Information (* Miscellaneous Pharmacy Order) DURAMORPH: 3.5MG EP IDU... GIVEN NEURAXIAL XX ; Start 01/21/19 at 10:00 Hydromorphone HCl (Dilaudid) 0.2 mg Q2H PRN IV .PAIN 1-5 Last administered on 02/02/19at 13:39; Admin Dose 0.2 MG; Start 01/21/19 at 12:00 Hydromorphone HCl (Dilaudid) 0.4 mg Q2H PRN IV .PAIN 6-10 Last administered on 02/01/19at 20:18; Admin Dose 0.4 MG; Start 01/21/19 at 12:00 Acetaminophen/ Hydrocodone Bitart ([place] (5/325)) 1 tab Q4H PRN PO .PAIN 4-6 Last administered on 01/25/19at 08:34; Admin Dose 1 TAB; Start 01/21/19 at 12:00 Diphenhydramine HCl (Benadryl) 25 mg Q4H PRN IV .PRURITUS; Start 01/21/19 at 12:00 Nalbuphine HCl (Nubain) 10 mg Q4H PRN IV .PRURITUS; Start 01/21/19 at 12:00 Ondansetron HCl (Zofran Inj) 4 mg Q6H PRN IV .NAUSEA/VOMITING Last administered on 01/22/19at 23:48; Admin Dose 4 MG; Start 01/21/19 at 12:00 Trimethobenzamide HCl (Tigan) 200 mg Q6H PRN IM .NAUSEA/VOMITING; Start 01/21/19 at 12:00 Zolpidem Tartrate (Ambien) 5 mg HS MAY REPEAT X 1 PRN PO .INSOMNIA; Start 01/21/19 at 12:00 Naloxone HCl (Narcan) 0.2 mg Q2M PRN IV .RESP RATE; Start 01/21/19 at 12:00 Hydralazine HCl (Apresoline) 10 mg Q4H PRN IV >150/95 Last administered on 01/24/19at 05:34; Admin Dose 10 MG; Start 01/21/19 at 14:00 Metoprolol Tartrate (Lopressor) 5 mg Q4H PRN IV HR>110 HOld SBP<100 Last administered on 01/25/19at 05:11; Admin Dose 5 MG; Start 01/23/19 at 20:30 Levalbuterol (Xopenex Neb) 0.63 mg Q6H RESP THERAPY HHN Last administered on 02/07/19at 07:59; Admin Dose 0.63 MG; Start 01/24/19 at 23:30 Acetaminophen (Tylenol Tab) 650 mg Q6H PRN PO MILD PAIN(1-3)OR ELEVATED TEMP Last administered on 01/29/19at 23:29; Admin Dose 650 MG; Start 01/29/19 at 23:30 Al Hydrox/Mg Hydrox/Simethicone (Mag-Al Plus) 30 ml Q4H PRN PO GASTROINTESTINAL UPSET Last administered on 01/30/19at 18:39; Admin Dose 30 ML; Start 01/29/19 at 23:30 Atenolol (Tenormin) 50 mg BID PO Last administered on 02/07/19 08:06; Admin Dose 50 MG; Start 01/30/19 at 21:00 Enoxaparin Sodium (Lovenox) 95 mg BID SC Last administered on 02/07/19 08:14; Admin Dose 95 MG; Start 01/30/19 at 21:00 Fluconazole/ Sodium Chloride 50 ml @ 50 mls/hr Q24H IVPB Last administered on 02/06/19at 21:16; Admin Dose 50 MLS/HR; Start 01/30/19 at 20:30 Cefepime HCl 50 ml @ 100 mls/hr Q12 IVPB Last administered on 02/07/19 08:05; Admin Dose 100 MLS/HR; Start 02/04/19 at 14:00 Metronidazole 100 ml @ 100 mls/hr Q8 IVPB Last administered on 02/07/19 05:44; Admin Dose 100 MLS/HR; Start 02/04/19 at 14:00 Neomycin/ Polymyxin/ Gramicidin (Neosporin Oph Drop) 1 drop QID RIGHT EYE Last administered on 02/07/19 08:06; Admin Dose 1 DROP; Start 02/05/19 at 21:00; Stop 02/12/19 at 20:59 Furosemide (Lasix) 20 mg BID DIURETICS IV Last administered on 02/07/19 05:45; Admin Dose 20 MG; Start 02/06/19 at 18:00 EUGENE ANDERSON Feb 07, 2019 12:29
--- NOTE | 2019-02-07 12:35 | PN ---
Date/Time of Note Date/Time of Note DATE: 02/07/19 TIME: 12:34 Assessment/Plan VTE Prophylaxis Risk score (from Ns)>0 risk: 6 SCD applied (from Nsg): Yes Pharmacological prophylaxis: other Lines/Catheters IV Catheter Type (from Nrsg): Saline Lock Urinary Cath still in place: No Assessment/Plan Assessment/Plan s/p reversal of chisholm's colostomy with possible leak will check with CT scan Result Diagram: 02/06/19 0458 02/07/19 0506 Results 24hrs Laboratory Tests Test 02/07/19 05:06 Sodium Level 138 Potassium Level 3.3 L Chloride Level 105 Carbon Dioxide Level 28 Anion Gap 5 Blood Urea Nitrogen 10 Creatinine 0.63 Est Glomerular Filtrat Rate mL/min > 60 Glucose Level 116 Calcium Level 8.2 L Total Bilirubin 0.2 Direct Bilirubin 0.00 Indirect Bilirubin 0.2 Aspartate Amino Transf (AST/SGOT) 35 Alanine Aminotransferase (ALT/SGPT) 27 Alkaline Phosphatase 98 Total Protein 5.3 L Albumin 2.4 L Globulin 2.90 Albumin/Globulin Ratio 0.82 Subjective 24 Hr Interval Summary Free Text/Dictation awaiting CT scan to check for anastomotic leak Exam/Review of Systems Exam Vitals Vital Signs Date Temp Pulse Resp B/P (MAP) Pulse Ox O2 O2 Flow FiO2 Time Delivery Rate 02/07/19 90 12:02 02/07/19 98.0 19 130/70 97 11:58 (90) 02/07/19 3.0 08:02 02/07/19 Nasal 08:02 Cannula 02/06/19 33 02:18 Intake and Output 02/06/19 02/06/19 02/07/19 1515:00 23:00 07:00 IntakeIntake Total 50 ml 1150 ml 100 ml OutputOutput Total 900 ml 350 ml BalanceBalance 50 ml 250 ml -250 ml Exam drains in place with brown fluid Results Results 24hrs Laboratory Tests Test 02/07/19 05:06 Sodium Level 138 Potassium Level 3.3 L Chloride Level 105 Carbon Dioxide Level 28 Anion Gap 5 Blood Urea Nitrogen 10 Creatinine 0.63 Est Glomerular Filtrat Rate mL/min > 60 Glucose Level 116 Calcium Level 8.2 L Total Bilirubin 0.2 Direct Bilirubin 0.00 Indirect Bilirubin 0.2 Aspartate Amino Transf (AST/SGOT) 35 Alanine Aminotransferase (ALT/SGPT) 27 Alkaline Phosphatase 98 Total Protein 5.3 L Albumin 2.4 L Globulin 2.90 Albumin/Globulin Ratio 0.82 Medications Medication Current Medications Miscellaneous Information (* Miscellaneous Pharmacy Order) DURAMORPH: 3.5MG EPIDU... GIVEN NEURAXIAL XX ; Start 01/21/19 at 10:00 Hydromorphone HCl (Dilaudid) 0.2 mg Q2H PRN IV .PAIN 1-5 Last administered on 02/02/19at 13:39; Admin Dose 0.2 MG; Start 01/21/19 at 12:00 Hydromorphone HCl (Dilaudid) 0.4 mg Q2H PRN IV .PAIN 6-10 Last administered on 02/01/19at 20:18; Admin Dose 0.4 MG; Start 01/21/19 at 12:00 Acetaminophen/ Hydrocodone Bitart ([place] (5/325)) 1 tab Q4H PRN PO .PAIN 4-6 Last administered on 01/25/19at 08:34; Admin Dose 1 TAB; Start 01/21/19 at 12:00 Diphenhydramine HCl (Benadryl) 25 mg Q4H PRN IV .PRURITUS; Start 01/21/19 at 12:00 Nalbuphine HCl (Nubain) 10 mg Q4H PRN IV .PRURITUS; Start 01/21/19 at 12:00 Ondansetron HCl (Zofran Inj) 4 mg Q6H PRN IV .NAUSEA/VOMITING Last administered on 01/22/19at 23:48; Admin Dose 4 MG; Start 01/21/19 at 12:00 Trimethobenzamide HCl (Tigan) 200 mg Q6H PRN IM .NAUSEA/VOMITING; Start 01/21/19 at 12:00 Zolpidem Tartrate (Ambien) 5 mg HS MAY REPEAT X 1 PRN PO .INSOMNIA; Start 01/21/19 at 12:00 Naloxone HCl (Narcan) 0.2 mg Q2M PRN IV .RESP RATE; Start 01/21/19 at 12:00 Hydralazine HCl (Apresoline) 10 mg Q4H PRN IV >150/95 Last administered on 01/24/19at 05:34; Admin Dose 10 MG; Start 01/21/19 at 14:00 Metoprolol Tartrate (Lopressor) 5 mg Q4H PRN IV HR>110 HOld SBP<100 Last administered on 01/25/19 05:11; Admin Dose 5 MG; Start 01/23/19 at 20:30 Levalbuterol (Xopenex Neb) 0.63 mg Q6H RESP THERAPY HHN Last administered on 02/07/19 07:59; Admin Dose 0.63 MG; Start 01/24/19 at 23:30 Acetaminophen (Tylenol Tab) 650 mg Q6H PRN PO MILD PAIN(1-3)OR ELEVATED TEMP Last administered on 01/29/19 23:29; Admin Dose 650 MG; Start 01/29/19 at 23:30 Al Hydrox/Mg Hydrox/Simethicone (Mag-Al Plus) 30 ml Q4H PRN PO GASTROINTESTINAL UPSET Last administered on 01/30/19 18:39; Admin Dose 30 ML; Start 01/29/19 at 23:30 Atenolol (Tenormin) 50 mg BID PO Last administered on 02/07/19 08:06; Admin Dose 50 MG; Start 01/30/19 at 21:00 Enoxaparin Sodium (Lovenox) 95 mg BID SC Last administered on 02/07/19 08:14; Admin Dose 95 MG; Start 01/30/19 at 21:00 Fluconazole/ Sodium Chloride 50 ml @ 50 mls/hr Q24H IVPB Last administered on 02/06/19 21:16; Admin Dose 50 MLS/HR; Start 01/30/19 at 20:30 Cefepime HCl 50 ml @ 100 mls/hr Q12 IVPB Last administered on 02/07/19 08:05; Admin Dose 100 MLS/HR; Start 02/04/19 at 14:00 Metronidazole 100 ml @ 100 mls/hr Q8 IVPB Last administered on 02/07/19 05:44; Admin Dose 100 MLS/HR; Start 02/04/19 at 14:00 Neomycin/ Polymyxin/ Gramicidin (Neosporin Oph Drop) 1 drop QID RIGHT EYE Last administered on 02/07/19 08:06; Admin Dose 1 DROP; Start 02/05/19 at 21:00; Stop 02/12/19 at 20:59 Furosemide (Lasix) 20 mg BID DIURETICS IV Last administered on 4/25/19at 05:45; Admin Dose 20 MG; Start 02/06/19 at 18:00 Ann FERNANDEZ Feb 07, 2019 12:35
[2019-02-07] MEDS ORDERED: IOHEXOL 300MG/ML 150 ML BTL ONE (13:19)
--- NOTE | 2019-02-07 20:12 | PN ---
Date/Time of Note Date/Time of Note DATE: 02/07/19 TIME: 20:10 Assessment/Plan VTE Prophylaxis Risk score (from Nsg)>0 risk: 6 SCD applied (from Nsg): Yes Lines/Catheters IV Catheter Type (from Nrsg): Saline Lock Urinary Cath still in place: No Assessment/Plan Assessment/Plan - Hypokalemia- K replaced; AM BMP -Increased leukocytosis patient is currently on Zosyn and Flagyl, CT of the abdomen and pelvis revealed moderate ascites, questionable peritonitis or abscess increased right lower lobe infiltrate. Dr. Vázquez is following in infection disease consultation. -Possible surgical wound infection, obtain wound cx. -Right lower lobe infiltrate -S/p open Reagan reversal and colorectal low pelvic anastomosis, segmental partial colectomy, and open incarcerated incisional and parastomal hernia repair s with mesh by Dr. Fernandez on 01/21/2019. Continue [place] and Dilaudid as needed for pain and Zofran as needed for nausea. -Stage III sigmoid colon cancer, status post surgery and chemo in 2018. -Acute kidney injury on chronic kidney disease, monitor urine output BUN and creatinine. Dr. Stuart is following in nephrology consultation. -Acute on chronic diastolic CHF -Atrial fibrillation. -Obstructive sleep apnea -History of hypertension -History of left upper extremity DVT Result Diagram: 02/06/19 0458 02/07/19 0506 Results 24hrs Laboratory Tests Test 02/07/19 05:06 Sodium Level 138 Potassium Level 3.3 L Chloride Level 105 Carbon Dioxide Level 28 Anion Gap 5 Blood Urea Nitrogen 10 Creatinine 0.63 Est Glomerular Filtrat Rate mL/min > 60 Glucose Level 116 Calcium Level 8.2 L Total Bilirubin 0.2 Direct Bilirubin 0.00 Indirect Bilirubin 0.2 Aspartate Amino Transf (AST/SGOT) 35 Alanine Aminotransferase (ALT/SGPT) 27 Alkaline Phosphatase 98 Total Protein 5.3 L Albumin 2.4 L Globulin 2.90 Albumin/Globulin Ratio 0.82 Subjective 24 Hr Interval Summary Free Text/Dictation npo tonight for possible procedure per Dr FERNANDEZ pre staff. Exam/Review of Systems Exam Vitals Vital Signs Date Temp Pulse Resp B/P (MAP) Pulse Ox O2 O2 Flow FiO2 Time Delivery Rate 02/07/19 79 20:01 02/07/19 98.3 18 163/78 100 20:01 (106) 02/07/19 3.0 08:02 02/07/19 Nasal 08:02 Cannula 02/06/19 33 02:18 Intake and Output 02/06/19 02/06/19 02/07/19 1515:00 23:00 07:00 IntakeIntake Total 50 ml 1150 ml 100 ml OutputOutput Total 900 ml 350 ml BalanceBalance 50 ml 250 ml -250 ml Constitutional: alert, oriented, well developed Psych: nl mood/affect Head: atraumatic Eyes: nl lids ENMT: nl external ears & nose Neck: non-tender Respiratory: diminished breath sounds Cardiovascular: nl pulses, other Gastrointestinal: soft, tender, other Musculoskeletal: nl extremities to inspection Extremities: normal pulses Neurological: nl mental status, nl speech Skin: nl turgor Lymph: nontender Results Results 24hrs Laboratory Tests Test 02/07/19 05:06 Sodium Level 138 Potassium Level 3.3 L Chloride Level 105 Carbon Dioxide Level 28 Anion Gap 5 Blood Urea Nitrogen 10 Creatinine 0.63 Est Glomerular Filtrat Rate mL/min > 60 Glucose Level 116 Calcium Level 8.2 L Total Bilirubin 0.2 Direct Bilirubin 0.00 Indirect Bilirubin 0.2 Aspartate Amino Transf (AST/SGOT) 35 Alanine Aminotransferase (ALT/SGPT) 27 Alkaline Phosphatase 98 Total Protein 5.3 L Albumin 2.4 L Globulin 2.90 Albumin/Globulin Ratio 0.82 Medications Medication Current Medications Miscellaneous Information (* Miscellaneous Pharmacy Order) DURAMORPH: 3.5MG EPI DU... GIVEN NEURAXIAL XX ; Start 01/21/19 at 10:00 Hydromorphone HCl (Dilaudid) 0.2 mg Q2H PRN IV .PAIN 1-5 Last administered on 02/02/19at 13:39; Admin Dose 0.2 MG; Start 01/21/19 at 12:00 Hydromorphone HCl (Dilaudid) 0.4 mg Q2H PRN IV .PAIN 6-10 Last administered on 02/01/19at 20:18; Admin Dose 0.4 MG; Start 01/21/19 at 12:00 Acetaminophen/ Hydrocodone Bitart ([place] (5/325)) 1 tab Q4H PRN PO .PAIN 4-6 Last administered on 01/25/19at 08:34; Admin Dose 1 TAB; Start 01/21/19 at 12:00 Diphenhydramine HCl (Benadryl) 25 mg Q4H PRN IV .PRURITUS; Start 01/21/19 at 12:00 Nalbuphine HCl (Nubain) 10 mg Q4H PRN IV .PRURITUS; Start 01/21/19 at 12:00 Ondansetron HCl (Zofran Inj) 4 mg Q6H PRN IV .NAUSEA/VOMITING Last administered on 01/22/19 23:48; Admin Dose 4 MG; Start 01/21/19 at 12:00 Trimethobenzamide HCl (Tigan) 200 mg Q6H PRN IM .NAUSEA/VOMITING; Start 01/21/19 at 12:00 Zolpidem Tartrate (Ambien) 5 mg HS MAY REPEAT X 1 PRN PO .INSOMNIA; Start 01/21/19 at 12:00 Naloxone HCl (Narcan) 0.2 mg Q2M PRN IV .RESP RATE; Start 01/21/19 at 12:00 Hydralazine HCl (Apresoline) 10 mg Q4H PRN IV >150/95 Last administered on 01/24/19 05:34; Admin Dose 10 MG; Start 01/21/19 at 14:00 Metoprolol Tartrate (Lopressor) 5 mg Q4H PRN IV HR>110 HOld SBP<100 Last administered on 01/25/19 05:11; Admin Dose 5 MG; Start 01/23/19 at 20:30 Levalbuterol (Xopenex Neb) 0.63 mg Q6H RESP THERAPY HHN Last administered on 02/07/19 07:59; Admin Dose 0.63 MG; Start 01/24/19 at 23:30 Acetaminophen (Tylenol Tab) 650 mg Q6H PRN PO MILD PAIN(1-3)OR ELEVATED TEMP Last administered on 01/29/19 23:29; Admin Dose 650 MG; Start 01/29/19 at 23:30 Al Hydrox/Mg Hydrox/Simethicone (Mag-Al Plus) 30 ml Q4H PRN PO GASTROINTESTINAL UPSET Last administered on 01/30/19 18:39; Admin Dose 30 ML; Start 01/29/19 at 23:30 Atenolol (Tenormin) 50 mg BID PO Last administered on 02/07/19 08:06; Admin Dose 50 MG; Start 01/30/19 at 21:00 Enoxaparin Sodium (Lovenox) 95 mg BID SC Last administered on 02/07/19at 08:14; Admin Dose 95 MG; Start 01/30/19 at 21:00 Fluconazole/ Sodium Chloride 50 ml @ 50 mls/hr Q24H IVPB Last administered on 02/06/19at 21:16; Admin Dose 50 MLS/HR; Start 01/30/19 at 20:30 Cefepime HCl 50 ml @ 100 mls/hr Q12 IVPB Last administered on 02/07/19at 08:05; Admin Dose 100 MLS/HR; Start 02/04/19 at 14:00 Metronidazole 100 ml @ 100 mls/hr Q8 IVPB Last administered on 02/07/19at 15:34; Admin Dose 100 MLS/HR; Start 02/04/19 at 14:00 Neomycin/ Polymyxin/ Gramicidin (Neosporin Oph Drop) 1 drop QID RIGHT EYE Last administered on 02/07/19at 17:09; Admin Dose 1 DROP; Start 02/05/19 at 21:00; Stop 02/12/19 at 20:59 Furosemide (Lasix) 20 mg BID DIURETICS IV Last administered on 02/07/19 17:09; Admin Dose 20 MG; Start 02/06/19 at 18:00 Potassium Chloride 10 meq/ Sodium Chloride 1,005 ml @ 75 mls/hr [id number] IV ; Start 02/07/19 at 23:59 LUIS HARDWICK Feb 07, 2019 20:12
[2019-02-07] MEDS: FLUCONAZOLE 100 MG/50 ML (PMX) 50 ML IVPB SCH (20:30)
[2019-02-07] MEDS ORDERED: POTASSIUM CHLORIDE 10 MEQ in SOD CHLORIDE 0.9% 1,000 ML IV SCH (23:59)
[2019-02-08] VITALS (12 sets, daily range): BP systolic 108–135; BP diastolic 66–76; PULSE 81–114; RESP 16–19
[2019-02-08] MEDS: LEVALBUTEROL (NEB) 0.63 MG/3 ML AMP HHN SCH ×4 (01:34→19:10)
[2019-02-08] MEDS: metroNIDAZOLE 500 MG/NS (PMX) 100 ML IVPB SCH ×3 (05:24→22:37)
[2019-02-08] MEDS: FUROSEMIDE 20 MG INJ IV SCH ×2 (05:24→18:26)
--- NOTE | 2019-02-08 08:34 | PN ---
Date/Time of Note Date/Time of Note DATE: 02/08/19 TIME: 08:33 Assessment/Plan VTE Prophylaxis Risk score (from Ns)>0 risk: 4 SCD applied (from Ns): Yes Pharmacological prophylaxis: other Lines/Catheters IV Catheter Type (from Nrsg): Saline Lock Urinary Cath still in place: No Assessment/Plan Assessment/Plan anastomotic leak will reexplore Result Diagram: 02/06/19 0458 02/08/19 0503 Results 24hrs Laboratory Tests Test 02/08/19 05:03 Sodium Level 137 Potassium Level 3.3 L Chloride Level 104 Carbon Dioxide Level 29 Anion Gap 4 L Blood Urea Nitrogen 10 Creatinine 0.67 Est Glomerular Filtrat Rate mL/min > 60 Glucose Level 110 Calcium Level 8.1 L Total Bilirubin 0.2 Direct Bilirubin 0.00 Indirect Bilirubin 0.2 Aspartate Amino Transf (AST/SGOT) 35 Alanine Aminotransferase (ALT/SGPT) 28 Alkaline Phosphatase 90 Total Protein 5.2 L Albumin 2.4 L Globulin 2.80 Albumin/Globulin Ratio 0.85 Subjective 24 Hr Interval Summary Free Text/Dictation CT scan shows anastomotic leak Exam/Review of Systems Exam Vitals Vital Signs Date Temp Pulse Resp B/P (MAP) Pulse Ox O2 O2 Flow FiO2 Time Delivery Rate 02/08/19 98.7 98 18 124/68 98 Nasal 2.0 08:26 (86) Cannula 02/06/19 33 02:18 Intake and Output 02/07/19 02/07/19 02/08/19 1515:00 23:00 07:00 IntakeIntake Total 550 ml 1650 ml OutputOutput Total 1000 ml 1500 ml BalanceBalance -450 ml 150 ml Exam brown drainage from colostomy site Results Results 24hrs Laboratory Tests Test 02/08/19 05:03 Sodium Level 137 Potassium Level 3.3 L Chloride Level 104 Carbon Dioxide Level 29 Anion Gap 4 L Blood Urea Nitrogen 10 Creatinine 0.67 Est Glomerular Filtrat Rate mL/min > 60 Glucose Level 110 Calcium Level 8.1 L Total Bilirubin 0.2 Direct Bilirubin 0.00 Indirect Bilirubin 0.2 Aspartate Amino Transf (AST/SGOT) 35 Alanine Aminotransferase (ALT/SGPT) 28 Alkaline Phosphatase 90 Total Protein 5.2 L Albumin 2.4 L Globulin 2.80 Albumin/Globulin Ratio 0.85 Medications Medication Current Medications Miscellaneous Information (* Miscellaneous Pharmacy Order) DURAMORPH: 3.5MG EPIDU... GIVEN NEURAXIAL XX ; Start 01/21/19 at 10:00 Hydromorphone HCl (Dilaudid) 0.2 mg Q2H PRN IV .PAIN 1-5 Last administered on 02/02/19at 13:39; Admin Dose 0.2 MG; Start 01/21/19 at 12:00 Hydromorphone HCl (Dilaudid) 0.4 mg Q2H PRN IV .PAIN 6-10 Last administered on 02/01/19at 20:18; Admin Dose 0.4 MG; Start 01/21/19 at 12:00 Acetaminophen/ Hydrocodone Bitart ([place] (5/325)) 1 tab Q4H PRN PO .PAIN 4-6 Last administered on 01/25/19 08:34; Admin Dose 1 TAB; Start 01/21/19 at 12:00 Diphenhydramine HCl (Benadryl) 25 mg Q4H PRN IV .PRURITUS; Start 01/21/19 at 12:00 Nalbuphine HCl (Nubain) 10 mg Q4H PRN IV .PRURITUS; Start 01/21/19 at 12:00 Ondansetron HCl (Zofran Inj) 4 mg Q6H PRN IV .NAUSEA/VOMITING Last administered on 01/22/19at 23:48; Admin Dose 4 MG; Start 01/21/19 at 12:00 Trimethobenzamide HCl (Tigan) 200 mg Q6H PRN IM .NAUSEA/VOMITING; Start 01/21/19 at 12:00 Zolpidem Tartrate (Ambien) 5 mg HS MAY REPEAT X 1 PRN PO .INSOMNIA; Start 01/21/19 at 12:00 Naloxone HCl (Narcan) 0.2 mg Q2M PRN IV .RESP RATE; Start 01/21/19 at 12:00 Hydralazine HCl (Apresoline) 10 mg Q4H PRN IV >150/95 Last administered on 01/24/19at 05:34; Admin Dose 10 MG; Start 01/21/19 at 14:00 Metoprolol Tartrate (Lopressor) 5 mg Q4H PRN IV HR>110 HOld SBP<100 Last administered on 01/25/19at 05:11; Admin Dose 5 MG; Start 01/23/19 at 20:30 Levalbuterol (Xopenex Neb) 0.63 mg Q6H RESP THERAPY HHN Last administered on 02/08/19 07:45; Admin Dose 0.63 MG; Start 01/24/19 at 23:30 Acetaminophen (Tylenol Tab) 650 mg Q6H PRN PO MILD PAIN(1-3)OR ELEVATED TEMP Last administered on 01/29/19 23:29; Admin Dose 650 MG; Start 01/29/19 at 23:30 Al Hydrox/Mg Hydrox/Simethicone (Mag-Al Plus) 30 ml Q4H PRN PO GASTROINTESTINAL UPSET Last administered on 01/30/19 18:39; Admin Dose 30 ML; Start 01/29/19 at 23:30 Atenolol (Tenormin) 50 mg BID PO Last administered on 02/07/19 21:24; Admin Dose 50 MG; Start 01/30/19 at 21:00 Enoxaparin Sodium (Lovenox) 95 mg BID SC Last administered on 02/07/19 21:30; Admin Dose 95 MG; Start 01/30/19 at 21:00 Fluconazole/ Sodium Chloride 50 ml @ 50 mls/hr Q24H IVPB Last administered on 02/07/19 20:30; Admin Dose 50 MLS/HR; Start 01/30/19 at 20:30 Cefepime HCl 50 ml @ 100 mls/hr Q12 IVPB Last administered on 02/07/19 21:21; Admin Dose 100 MLS/HR; Start 02/04/19 at 14:00 Metronidazole 100 ml @ 100 mls/hr Q8 IVPB Last administered on 02/08/19 05:24; Admin Dose 100 MLS/HR; Start 02/04/19 at 14:00 Neomycin/ Polymyxin/ Gramicidin (Neosporin Oph Drop) 1 drop QID RIGHT EYE Last administered on 02/07/19 21:31; Admin Dose 1 DROP; Start 02/05/19 at 21:00; Stop 02/12/19 at 20:59 Furosemide (Lasix) 20 mg BID DIURETICS IV Last administered on 02/08/19 05:24; Admin Dose 20 MG; Start 02/06/19 at 18:00 Potassium Chloride 10 meq/ Sodium Chloride 1,005 ml @ 75 mls/hr [id number] IV Last administered on 02/07/19at 23:43; Admin Dose 75 MLS/HR; Start 02/07/19 at 23:59 Ann FERNANDEZ Feb 08, 2019 08:34
[2019-02-08] MEDS: CEFEPIME 2GM/50 ML (PMX) 50 ML IVPB SCH ×2 (08:42→21:20)
[2019-02-08] MEDS: ENOXAPARIN 100 MG/ML SYG SC SCH (09:00)
[2019-02-08] MEDS: ATENOLOL 50 MG TAB PO SCH ×2 (09:00→20:39)
[2019-02-08] MEDS: NEOMYC/POLYMYX/GRAM 10 ML OPH RIGHT EYE SCH ×4 (09:58→21:00)
--- NOTE | 2019-02-08 12:49 | PN ---
Date/Time of Note Date/Time of Note DATE: 02/08/19 TIME: 12:48 Assessment/Plan VTE Prophylaxis Risk score (from Nsg)>0 risk: 4 SCD applied (from Nsg): Yes Pharmacological prophylaxis: other Lines/Catheters IV Catheter Type (from Nrsg): Saline Lock Urinary Cath still in place: No Assessment/Plan Result Diagram: 02/06/19 0458 02/08/19 0503 Results 24hrs Laboratory Tests Test 02/08/19 05:03 Sodium Level 137 Potassium Level 3.3 L Chloride Level 104 Carbon Dioxide Level 29 Anion Gap 4 L Blood Urea Nitrogen 10 Creatinine 0.67 Est Glomerular Filtrat Rate mL/min > 60 Glucose Level 110 Calcium Level 8.1 L Total Bilirubin 0.2 Direct Bilirubin 0.00 Indirect Bilirubin 0.2 Aspartate Amino Transf (AST/SGOT) 35 Alanine Aminotransferase (ALT/SGPT) 28 Alkaline Phosphatase 90 Total Protein 5.2 L Albumin 2.4 L Globulin 2.80 Albumin/Globulin Ratio 0.85 Subjective 24 Hr Interval Summary Free Text/Dictation patient is currently on therapeutic dose of lovenox and this will be stopped for two day before exploration as the patient is currently stable. Exam/Review of Systems Exam Vitals Vital Signs Date Temp Pulse Resp B/P (MAP) Pulse Ox O2 O2 Flow FiO2 Time Delivery Rate 02/08/19 100 12:02 02/08/19 98.7 16 108/66 98 Nasal 2.0 11:30 (80) Cannula 02/06/19 33 02:18 Intake and Output 02/07/19 02/07/19 02/08/19 1515:00 23:00 07:00 IntakeIntake Total 550 ml 1650 ml OutputOutput Total 1000 ml 1500 ml BalanceBalance -450 ml 150 ml Results Results 24hrs Laboratory Tests Test 02/08/19 05:03 Sodium Level 137 Potassium Level 3.3 L Chloride Level 104 Carbon Dioxide Level 29 Anion Gap 4 L Blood Urea Nitrogen 10 Creatinine 0.67 Est Glomerular Filtrat Rate mL/min > 60 Glucose Level 110 Calcium Level 8.1 L Total Bilirubin 0.2 Direct Bilirubin 0.00 Indirect Bilirubin 0.2 Aspartate Amino Transf (AST/SGOT) 35 Alanine Aminotransferase (ALT/SGPT) 28 Alkaline Phosphatase 90 Total Protein 5.2 L Albumin 2.4 L Globulin 2.80 Albumin/Globulin Ratio 0.85 Medications Medication Current Medications Miscellaneous Information (* Miscellaneous Pharmacy Order) DURAMORPH: 3.5MG EPIDU... GIVEN NEURAXIAL XX ; Start 01/21/19 at 10:00 Hydromorphone HCl (Dilaudid) 0.2 mg Q2H PRN IV .PAIN 1-5 Last administered on 02/02/19at 13:39; Admin Dose 0.2 MG; Start 01/21/19 at 12:00 Hydromorphone HCl (Dilaudid) 0.4 mg Q2H PRN IV .PAIN 6-10 Last administered on 02/01/19at 20:18; Admin Dose 0.4 MG; Start 01/21/19 at 12:00 Acetaminophen/ Hydrocodone Bitart ([place] (5/325)) 1 tab Q4H PRN PO .PAIN 4-6 Last administered on 01/25/19at 08:34; Admin Dose 1 TAB; Start 01/21/19 at 12:00 Diphenhydramine HCl (Benadryl) 25 mg Q4H PRN IV .PRURITUS; Start 01/21/19 at 12:00 Nalbuphine HCl (Nubain) 10 mg Q4H PRN IV .PRURITUS; Start 01/21/19 at 12:00 Ondansetron HCl (Zofran Inj) 4 mg Q6H PRN IV .NAUSEA/VOMITING Last administered on 01/22/19at 23:48; Admin Dose 4 MG; Start 01/21/19 at 12:00 Trimethobenzamide HCl (Tigan) 200 mg Q6H PRN IM .NAUSEA/VOMITING; Start 01/21/19 at 12:00 Zolpidem Tartrate (Ambien) 5 mg HS MAY REPEAT X 1 PRN PO .INSOMNIA; Start 01/21/19 at 12:00 Naloxone HCl (Narcan) 0.2 mg Q2M PRN IV .RESP RATE; Start 01/21/19 at 12:00 Hydralazine HCl (Apresoline) 10 mg Q4H PRN IV >150/95 Last administered on 01/24/19at 05:34; Admin Dose 10 MG; Start 01/21/19 at 14:00 Metoprolol Tartrate (Lopressor) 5 mg Q4H PRN IV HR>110 HOld SBP<100 Last administered on 01/25/19at 05:11; Admin Dose 5 MG; Start 01/23/19 at 20:30 Levalbuterol (Xopenex Neb) 0.63 mg Q6H RESP THERAPY HHN Last administered on 02/08/19 07:45; Admin Dose 0.63 MG; Start 01/24/19 at 23:30 Acetaminophen (Tylenol Tab) 650 mg Q6H PRN PO MILD PAIN(1-3)OR ELEVATED TEMP Last administered on 01/29/19 23:29; Admin Dose 650 MG; Start 01/29/19 at 23:30 Al Hydrox/Mg Hydrox/Simethicone (Mag-Al Plus) 30 ml Q4H PRN PO GASTROINTESTINAL UPSET Last administered on 01/30/19 18:39; Admin Dose 30 ML; Start 01/29/19 at 23:30 Atenolol (Tenormin) 50 mg BID PO Last administered on 02/07/19 21:24; Admin D ose 50 MG; Start 01/30/19 at 21:00 Enoxaparin Sodium (Lovenox) 95 mg BID SC Last administered on 02/07/19 21:30; Admin Dose 95 MG; Start 01/30/19 at 21:00 Fluconazole/ Sodium Chloride 50 ml @ 50 mls/hr Q24H IVPB Last administered on 02/07/19 20:30; Admin Dose 50 MLS/HR; Start 01/30/19 at 20:30 Cefepime HCl 50 ml @ 100 mls/hr Q12 IVPB Last administered on 02/08/19 08:42; Admin Dose 100 MLS/HR; Start 02/04/19 at 14:00 Metronidazole 100 ml @ 100 mls/hr Q8 IVPB Last administered on 02/08/19 05:24; Admin Dose 100 MLS/HR; Start 02/04/19 at 14:00 Neomycin/ Polymyxin/ Gramicidin (Neosporin Oph Drop) 1 drop QID RIGHT EYE Last administered on 02/08/19 09:58; Admin Dose 1 DROP; Start 02/05/19 at 21:00; Stop 02/12/19 at 20:59 Furosemide (Lasix) 20 mg BID DIURETICS IV Last administered on 02/08/19 05:24; Admin Dose 20 MG; Start 02/06/19 at 18:00 Potassium Chloride 10 meq/ Sodium Chloride 1,005 ml @ 75 mls/hr [id number] IV Last administered on 02/07/19at 23:43; Admin Dose 75 MLS/HR; Start 02/07/19 at 23:59 Ann FERNANDEZ Feb 08, 2019 12:49
--- NOTE | 2019-02-08 13:32 | CONS ---
Assessment/Plan Assessment/Plan Hospital Course (Demo Recall) assessment/impression - sepsis due to complicated intra-abdominal infection and pneumonia - pleural effusion, exudative process, parapneumonic effusion LDH 1601 protein 3.2, no malignancy on cytology - s/p R sided thoracentesis on 02/05/2019 - s/p open Reagan reversal and colorectal low pelvic anastomosis, segmental partial colectomy, and open incarcerated incisional and parastomal hernia r epairs with mesh by Dr. Art on 01/21/2019 - follow up CT on 02/04/2019 did not identify definite point of leak - s/p CT guided drainage of abscess in LLQ on 02/01/2019 - Abdominal wound culture 01/30/19 and abscess culture 01/31/19 grew pseudomonas and joseline albicans - possible anastomotic leak of fecal material - Stage III sigmoid colon cancer, status post prior colectomy/colostomy and chemo in 2018 - Acute kidney injury on chronic kidney disease - Acute on chronic diastolic CHF - Atrial fibrillation. - VIJAY - S/p colostomy reversal - R conjunctivitis - Hx hypertension - Hx left upper extremity DVT - Superficial thrombus in R cephalic vein in the forearm and in L cephalic vein in the antecubital fossa as visualized on NOY 02/05/2019 revised recommendations: - pending results: cultures of bacteria, fungi and AFB from R pleural effusion - ordered: coag - continue cefepime and metronidazole (02/04/2019-). 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 Consultation Date/Type/Reason Admit Date/Time Jan 21, 2019 at 06:18 Initial Consult Date 01/30/19 Type of Consult ID Requesting Provider: ODELL PACHECO Date/Time of Note DATE: 02/08/19 TIME: 13:27 24 HR Interval Summary Free Text/Dictation Pt was taken to pre-op but surgical exploration was postponed due to the fact he had received lovenox Subjective hx not possible: other (Pt appeared quite upset as he was wheeled back into his room from the pre-op area and was not talking as usual) Constitutional: other ("same") Exam/Review of Systems Exam Vitals Vital Signs Date Temp Pulse Resp B/P (MAP) Pulse Ox O2 O2 Flow FiO2 Time Delivery Rate 02/08/19 100 12:02 02/08/19 98.7 16 108/66 98 Nasal 2.0 11:30 (80) Cannula 02/06/19 33 02:18 Intake and Output 02/07/19 02/07/19 02/08/19 1515:00 23:00 07:00 IntakeIntake Total 550 ml 1650 ml OutputOutput Total 1000 ml 1500 ml BalanceBalance -450 ml 150 ml Constitutional: alert, frail Psych: nl mood/affect; No confusion Head: normocephalic, atraumatic Eyes: other (R conjunctiva was red) ENMT: nl external ears & nose, nl nasal mucosa & septum Neck: other (not swollen) Respiratory: other (normal resp effort) Gastrointestinal: surgical scars, other (+ostomy bag and external drainage catheter) Musculoskeletal: No swelling Extremities: normal pulses Neurological: lethargic Skin: No rash or lesions Results Result Diagram: 02/06/19 0458 02/08/19 0503 Results 24hrs Laboratory Tests Test 02/08/19 05:03 Sodium Level 137 Potassium Level 3.3 L Chloride Level 104 Carbon Dioxide Level 29 Anion Gap 4 L Blood Urea Nitrogen 10 Creatinine 0.67 Est Glomerular Filtrat Rate mL/min > 60 Glucose Level 110 Calcium Level 8.1 L Total Bilirubin 0.2 Direct Bilirubin 0.00 Indirect Bilirubin 0.2 Aspartate Amino Transf (AST/SGOT) 35 Alanine Aminotransferase (ALT/SGPT) 28 Alkaline Phosphatase 90 Total Protein 5.2 L Albumin 2.4 L Globulin 2.80 Albumin/Globulin Ratio 0.85 Medications Medication Current Medications Miscellaneous Information (* Miscellaneous Pharmacy Order) DURAMORPH: 3.5MG EPIDU... GIVEN NEURAXIAL XX ; Start 01/21/19 at 10:00 Hydromorphone HCl (Dilaudid) 0.2 mg Q2H PRN IV .PAIN 1-5 Last administered on 02/02/19at 13:39; Admin Dose 0.2 MG; Start 01/21/19 at 12:00 Hydromorphone HCl (Dilaudid) 0.4 mg Q2H PRN IV .PAIN 6-10 Last administered on 02/01/19at 20:18; Admin Dose 0.4 MG; Start 01/21/19 at 12:00 Acetaminophen/ Hydrocodone Bitart ([place] (5/325)) 1 tab Q4H PRN PO .PAIN 4-6 Last administered on 01/25/19at 08:34; Admin Dose 1 TAB; Start 01/21/19 at 12:00 Diphenhydramine HCl (Benadryl) 25 mg Q4H PRN IV .PRURITUS; Start 01/21/19 at 12:00 Nalbuphine HCl (Nubain) 10 mg Q4H PRN IV .PRURITUS; Start 01/21/19 at 12:00 Ondansetron HCl (Zofran Inj) 4 mg Q6H PRN IV .NAUSEA/VOMITING Last administered on 01/22/19at 23:48; Admin Dose 4 MG; Start 01/21/19 at 12:00 Trimethobenzamide HCl (Tigan) 200 mg Q6H PRN IM .NAUSEA/VOMITING; Start 01/21/19 at 12:00 Zolpidem Tartrate (Ambien) 5 mg HS MAY REPEAT X 1 PRN PO .INSOMNIA; Start 01/21/19 at 12:00 Naloxone HCl (Narcan) 0.2 mg Q2M PRN IV .RESP RATE; Start 01/21/19 at 12:00 Hydralazine HCl (Apresoline) 10 mg Q4H PRN IV >150/95 Last administered on 01/24/19at 05:34; Admin Dose 10 MG; Start 01/21/19 at 14:00 Metoprolol Tartrate (Lopressor) 5 mg Q4H PRN IV HR>110 HOld SBP<100 Last administered on 01/25/19at 05:11; Admin Dose 5 MG; Start 01/23/19 at 20:30 Levalbuterol (Xopenex Neb) 0.63 mg Q6H RESP THERAPY HHN Last administered on 02/08/19at 07:45; Admin Dose 0.63 MG; Start 01/24/19 at 23:30 Acetaminophen (Tylenol Tab) 650 mg Q6H PRN PO MILD PAIN(1-3)OR ELEVATED TEMP Last administered on 01/29/19at 23:29; Admin Dose 650 MG; Start 01/29/19 at 23:30 Al Hydrox/Mg Hydrox/Simethicone (Mag-Al Plus) 30 ml Q4H PRN PO GASTROINTESTINAL UPSET Last administered on 01/30/19at 18:39; Admin Dose 30 ML; Start 01/29/19 at 23:30 Atenolol (Tenormin) 50 mg BID PO Last administered on 02/07/19at 21:24; Admin Dose 50 MG; Start 01/30/19 at 21:00 Fluconazole/ Sodium Chloride 50 ml @ 50 mls/hr Q24H IVPB Last administered on 02/07/19at 20:30; Admin Dose 50 MLS/HR; Start 01/30/19 at 20:30 Cefepime HCl 50 ml @ 100 mls/hr Q12 IVPB Last administered on 02/08/19at 08:42; Admin Dose 100 MLS/HR; Start 02/04/19 at 14:00 Metronidazole 100 ml @ 100 mls/hr Q8 IVPB Last administered on 02/08/19at 05:24; Admin Dose 100 MLS/HR; Start 02/04/19 at 14:00 Neomycin/ Polymyxin/ Gramicidin (Neosporin Oph Drop) 1 drop QID RIGHT EYE Last administered on 02/08/19at 09:58; Admin Dose 1 DROP; Start 02/05/19 at 21:00; Stop 02/12/19 at 20:59 Furosemide (Lasix) 20 mg BID DIURETICS IV Last administered on 02/08/19at 05:24; Admin Dose 20 MG; Start 02/06/19 at 18:00 Potassium Chloride 10 meq/ Sodium Chloride 1,005 ml @ 75 mls/hr [id number] IV ; Start 02/10/19 at 23:00 MERCED ESCUDERO M.D. Feb 08, 2019 13:32
--- NOTE | 2019-02-08 13:33 | CONS ---
Assessment/Plan Assessment/Plan Hospital Course (Demo Recall) assessment/impression - sepsis due to complicated intra-abdominal infection and pneumonia - pleural effusion, exudative process, parapneumonic effusion LDH 1601 protein 3.2, no malignancy on cytology - s/p R sided thoracentesis on 02/05/2019 - s/p open Reagan reversal and colorectal low pelvic anastomosis, segmental partial colectomy, and open incarcerated incisional and parastomal hernia r epairs with mesh by Dr. Art on 01/21/2019 - follow up CT on 02/04/2019 did not identify definite point of leak - s/p CT guided drainage of abscess in LLQ on 02/01/2019 - Abdominal wound culture 01/30/19 and abscess culture 01/31/19 grew pseudomonas, joseline albicans and glabrata - possible anastomotic leak of fecal material - Stage III sigmoid colon cancer, status post prior colectomy/colostomy and chem o in 2018 - Acute kidney injury on chronic kidney disease - Acute on chronic diastolic CHF - Atrial fibrillation. - VIJAY - S/p colostomy reversal - R conjunctivitis - Hx hypertension - Hx left upper extremity DVT - Superficial thrombus in R cephalic vein in the forearm and in L cephalic vein in the antecubital fossa as visualized on NOY 02/05/2019 revised recommendations: - pending results: cultures of bacteria, fungi and AFB of R pleural effusion - ordered: coag - continue cefepime and metronidazole (02/04/2019-). 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 Consultation Date/Type/Reason Admit Date/Time Jan 21, 2019 at 06:18 Initial Consult Date 01/30/19 Type of Consult ID Requesting Provider: ODELL PACHECO Date/Time of Note DATE: 02/08/19 TIME: 13:33 Exam/Review of Systems Exam Vitals Vital Signs Date Temp Pulse Resp B/P (MAP) Pulse Ox O2 O2 Flow FiO2 Time Delivery Rate 02/08/19 100 12:02 02/08/19 98.7 16 108/66 98 Nasal 2.0 11:30 (80) Cannula 02/06/19 33 02:18 Intake and Output 02/07/19 02/07/19 02/08/19 1515:00 23:00 07:00 IntakeIntake Total 550 ml 1650 ml OutputOutput Total 1000 ml 1500 ml BalanceBalance -450 ml 150 ml Results Result Diagram: 02/06/19 0458 02/08/19 0503 Results 24hrs Laboratory Tests Test 02/08/19 05:03 Sodium Level 137 Potassium Level 3.3 L Chloride Level 104 Carbon Dioxide Level 29 Anion Gap 4 L Blood Urea Nitrogen 10 Creatinine 0.67 Est Glomerular Filtrat Rate mL/min > 60 Glucose Level 110 Calcium Level 8.1 L Total Bilirubin 0.2 Direct Bilirubin 0.00 Indirect Bilirubin 0.2 Aspartate Amino Transf (AST/SGOT) 35 Alanine Aminotransferase (ALT/SGPT) 28 Alkaline Phosphatase 90 Total Protein 5.2 L Albumin 2.4 L Globulin 2.80 Albumin/Globulin Ratio 0.85 Medications Medication Current Medications Miscellaneous Information (* Miscellaneous Pharmacy Order) DURAMORPH: 3.5MG EPIDU... GIVEN NEURAXIAL XX ; Start 01/21/19 at 10:00 Hydromorphone HCl (Dilaudid) 0.2 mg Q2H PRN IV .PAIN 1-5 Last administered on 02/02/19at 13:39; Admin Dose 0.2 MG; Start 01/21/19 at 12:00 Hydromorphone HCl (Dilaudid) 0.4 mg Q2H PRN IV .PAIN 6-10 Last administered on 02/01/19at 20:18; Admin Dose 0.4 MG; Start 01/21/19 at 12:00 Acetaminophen/ Hydrocodone Bitart ([place] (5/325)) 1 tab Q4H PRN PO .PAIN 4-6 Last administered on 01/25/19at 08:34; Admin Dose 1 TAB; Start 01/21/19 at 12:00 Diphenhydramine HCl (Benadryl) 25 mg Q4H PRN IV .PRURITUS; Start 01/21/19 at 12:00 Nalbuphine HCl (Nubain) 10 mg Q4H PRN IV .PRURITUS; Start 01/21/19 at 12:00 Ondansetron HCl (Zofran Inj) 4 mg Q6H PRN IV .NAUSEA/VOMITING Last administered on 01/22/19at 23:48; Admin Dose 4 MG; Start 01/21/19 at 12:00 Trimethobenzamide HCl (Tigan) 200 mg Q6H PRN IM .NAUSEA/VOMITING; Start 01/21/19 at 12:00 Zolpidem Tartrate (Ambien) 5 mg HS MAY REPEAT X 1 PRN PO .INSOMNIA; Start 01/21/19 at 12:00 Naloxone HCl (Narcan) 0.2 mg Q2M PRN IV .RESP RATE; Start 01/21/19 at 12:00 Hydralazine HCl (Apresoline) 10 mg Q4H PRN IV >150/95 Last administered on 01/24/19 05:34; Admin Dose 10 MG; Start 01/21/19 at 14:00 Metoprolol Tartrate (Lopressor) 5 mg Q4H PRN IV HR>110 HOld SBP<100 Last administered on 01/25/19 05:11; Admin Dose 5 MG; Start 01/23/19 at 20:30 Levalbuterol (Xopenex Neb) 0.63 mg Q6H RESP THERAPY HHN Last administered on 02/08/19at 07:45; Admin Dose 0.63 MG; Start 01/24/19 at 23:30 Acetaminophen (Tylenol Tab) 650 mg Q6H PRN PO MILD PAIN(1-3)OR ELEVATED TEMP Last administered on 01/29/19 23:29; Admin Dose 650 MG; Start 01/29/19 at 23:30 Al Hydrox/Mg Hydrox/Simethicone (Mag-Al Plus) 30 ml Q4H PRN PO GASTROINTESTINAL UPSET Last administered on 01/30/19 18:39; Admin Dose 30 ML; Start 01/29/19 at 23:30 Atenolol (Tenormin) 50 mg BID PO Last administered on 02/07/19 21:24; Admin Dose 50 MG; Start 01/30/19 at 21:00 Fluconazole/ Sodium Chloride 50 ml @ 50 mls/hr Q24H IVPB Last administered on 02/07/19 20:30; Admin Dose 50 MLS/HR; Start 01/30/19 at 20:30 Cefepime HCl 50 ml @ 100 mls/hr Q12 IVPB Last administered on 02/08/19 08:42; Admin Dose 100 MLS/HR; Start 02/04/19 at 14:00 Metronidazole 100 ml @ 100 mls/hr Q8 IVPB Last administered on 02/08/19at 05:24; Admin Dose 100 MLS/HR; Start 02/04/19 at 14:00 Neomycin/ Polymyxin/ Gramicidin (Neosporin Oph Drop) 1 drop QID RIGHT EYE Last administered on 02/08/19at 09:58; Admin Dose 1 DROP; Start 02/05/19 at 21:00; Stop 02/12/19 at 20:59 Furosemide (Lasix) 20 mg BID DIURETICS IV Last administered on 02/08/19at 05:24; Admin Dose 20 MG; Start 02/06/19 at 18:00 Potassium Chloride 10 meq/ Sodium Chloride 1,005 ml @ 75 mls/hr [id number] IV ; Start 02/10/19 at 23:00 MERCED ESCUDERO M.D. Feb 08, 2019 13:33
--- NOTE | 2019-02-08 13:50 | CONS ---
Assessment/Plan Assessment/Plan Hospital Course (Demo Recall) IMPRESSION: 1. Tachycardia, at this time sinus tachycardia in the setting of significant pain, fevers, status post surgery. NL EF by echo 60-65. ON had onset of AF with RVR 2. Possible congestive heart failure by chest x-ray with the patient having the onset of acute renal failure at this time. 3. Hypertension 4. Postoperative status post reversal colostomy. 5. Fevers postop. 6. Renal failure, acute.-improved now 7. History of colon carcinoma status post prior colectomy with colostomy with anastomatic leak by abd CT 8. Hypernatremia, improved 9. Hypomagnesemia-improved 10. Leukocytosis. Recc: -Tele -Continue PO BB -s/p IVP of digoxin with improved HR control -Pain control -Continue abx's and f/u cx data -Follow volume status closely s/p increase lasix diuresis -? need for repeat surgery with lovenox held in anticipation of repeat surgery Consultation Date/Type/Reason Admit Date/Time Jan 21, 2019 at 06:18 Initial Consult Date 01/23/19 Type of Consult Cardiology Reason for Consultation CHF Requesting Provider: ODELL PACHECO Date/Time of Note DATE: 02/08/19 TIME: 13:43 Exam/Review of Systems Vital Signs Vitals Vital Signs Date Temp Pulse Resp B/P (MAP) Pulse Ox O2 O2 Flow FiO2 Time Delivery Rate 02/08/19 100 12:02 02/08/19 98.7 16 108/66 98 Nasal 2.0 11:30 (80) Cannula 02/06/19 33 02:18 Intake and Output 02/07/19 02/07/19 02/08/19 1515:00 23:00 07:00 IntakeIntake Total 550 ml 1650 ml OutputOutput Total 1000 ml 1500 ml BalanceBalance -450 ml 150 ml Exam Exam Review of Systems: CONSTITUTIONAL: No fevers, chills. PULMONARY: No sob CARDIOVASCULAR: No chest pain/palpitations GASTROINTESTINAL: No nausea/vomiting. GENITOURINARY: No hematuria/dysuria. MUSCULOSKELETAL: No myagias/arthalgias. PSYCHIATRIC: The patient denies depression. NEUROLOGIC: No weakness Constitutional: alert, oriented Psych: no complaints ENMT: mucosa pink and moist Neck: supple, jvd (9 cm water) Respiratory: clear to auscultation Cardiovascular: regular rate and rhythm Gastrointestinal: distended, tender (to palpation) Musculoskeletal: muscle tone (normal) Extremities: edema (none) Labs Result Diagram: 02/06/19 0458 02/08/19 0503 Results 24hrs Laboratory Tests Test 02/08/19 05:03 Sodium Level 137 Potassium Level 3.3 L Chloride Level 104 Carbon Dioxide Level 29 Anion Gap 4 L Blood Urea Nitrogen 10 Creatinine 0.67 Est Glomerular Filtrat Rate mL/min > 60 Glucose Level 110 Calcium Level 8.1 L Total Bilirubin 0.2 Direct Bilirubin 0.00 Indirect Bilirubin 0.2 Aspartate Amino Transf (AST/SGOT) 35 Alanine Aminotransferase (ALT/SGPT) 28 Alkaline Phosphatase 90 Total Protein 5.2 L Albumin 2.4 L Globulin 2.80 Albumin/Globulin Ratio 0.85 Medications Medications Current Medications Miscellaneous Information (* Miscellaneous Pharmacy Order) DURAMORPH: 3.5MG EPIDU... GIVEN NEURAXIAL XX ; Start 01/21/19 at 10:00 Hydromorphone HCl (Dilaudid) 0.2 mg Q2H PRN IV .PAIN 1-5 Last administered on 02/02/19at 13:39; Admin Dose 0.2 MG; Start 01/21/19 at 12:00 Hydromorphone HCl (Dilaudid) 0.4 mg Q2H PRN IV .PAIN 6-10 Last administered on 02/01/19at 20:18; Admin Dose 0.4 MG; Start 01/21/19 at 12:00 Acetaminophen/ Hydrocodone Bitart ([place] (5/325)) 1 tab Q4H PRN PO .PAIN 4-6 Last administered on 01/25/19at 08:34; Admin Dose 1 TAB; Start 01/21/19 at 12:00 Diphenhydramine HCl (Benadryl) 25 mg Q4H PRN IV .PRURITUS; Start 01/21/19 at 12:00 Nalbuphine HCl (Nubain) 10 mg Q4H PRN IV .PRURITUS; Start 01/21/19 at 12:00 Ondansetron HCl (Zofran Inj) 4 mg Q6H PRN IV .NAUSEA/VOMITING Last administered on 01/22/19at 23:48; Admin Dose 4 MG; Start 01/21/19 at 12:00 Trimethobenzamide HCl (Tigan) 200 mg Q6H PRN IM .NAUSEA/VOMITING; Start 01/21/19 at 12:00 Zolpidem Tartrate (Ambien) 5 mg HS MAY REPEAT X 1 PRN PO .INSOMNIA; Start 01/21/19 at 12:00 Naloxone HCl (Narcan) 0.2 mg Q2M PRN IV .RESP RATE; Start 01/21/19 at 12:00 Hydralazine HCl (Apresoline) 10 mg Q4H PRN IV >150/95 Last administered on 01/24/19 05:34; Admin Dose 10 MG; Start 01/21/19 at 14:00 Metoprolol Tartrate (Lopressor) 5 mg Q4H PRN IV HR>110 HOld SBP<100 Last administered on 01/25/19 05:11; Admin Dose 5 MG; Start 01/23/19 at 20:30 Levalbuterol (Xopenex Neb) 0.63 mg Q6H RESP THERAPY HHN Last administered on 02/08/19 13:42; Admin Dose 0.63 MG; Start 01/24/19 at 23:30 Acetaminophen (Tylenol Tab) 650 mg Q6H PRN PO MILD PAIN(1-3)OR ELEVATED TEMP Last administered on 01/29/19 23:29; Admin Dose 650 MG; Start 01/29/19 at 23:30 Al Hydrox/Mg Hydrox/Simethicone (Mag-Al Plus) 30 ml Q4H PRN PO GASTROINTESTINAL UPSET Last administered on 01/30/19 18:39; Admin Dose 30 ML; Start 01/29/19 at 23:30 Atenolol (Tenormin) 50 mg BID PO Last administered on 02/07/19 21:24; Admin Dose 50 MG; Start 01/30/19 at 21:00 Fluconazole/ Sodium Chloride 50 ml @ 50 mls/hr Q24H IVPB Last administered on 02/07/19 20:30; Admin Dose 50 MLS/HR; Start 01/30/19 at 20:30 Cefepime HCl 50 ml @ 100 mls/hr Q12 IVPB Last administered on 02/08/19 08:42; Admin Dose 100 MLS/HR; Start 02/04/19 at 14:00 Metronidazole 100 ml @ 100 mls/hr Q8 IVPB Last administered on 02/08/19at 05:24; Admin Dose 100 MLS/HR; Start 02/04/19 at 14:00 Neomycin/ Polymyxin/ Gramicidin (Neosporin Oph Drop) 1 drop QID RIGHT EYE Last administered on 02/08/19at 09:58; Admin Dose 1 DROP; Start 02/05/19 at 21:00; Stop 02/12/19 at 20:59 Furosemide (Lasix) 20 mg BID DIURETICS IV Last administered on 02/08/19at 05:24; Admin Dose 20 MG; Start 02/06/19 at 18:00 Potassium Chloride 10 meq/ Sodium Chloride 1,005 ml @ 75 mls/hr [id number] IV ; Start 02/10/19 at 23:00 EUGENE ANDERSON Feb 08, 2019 13:50
--- NOTE | 2019-02-08 13:54 | PN ---
Date/Time of Note Date/Time of Note DATE: 02/08/19 TIME: 13:51 Assessment/Plan VTE Prophylaxis Risk score (from Nsg)>0 risk: 1 SCD applied (from Nsg): No Lines/Catheters IV Catheter Type (from Nrsg): [place] Urinary Cath still in place: No Assessment/Plan Assessment/Plan - Hypokalemia- K replaced; AM BMP -Increased leukocytosis patient is currently on Zosyn and Flagyl, CT of the abdomen and pelvis revealed moderate ascites, questionable peritonitis or abscess increased right lower lobe infiltrate. Dr. Vázquez is following in infection disease consultation. -Possible surgical wound infection, obtain wound cx. -Right lower lobe infiltrate -S/p open Reagan reversal and colorectal low pelvic anastomosis, segmental partial colectomy, and open incarcerated incisional and parastomal hernia repairs with mesh by Dr. Art on 01/21/2019. Continue [place] and Dilaudid as needed for pain and Zofran as needed for nausea. -Stage III sigmoid colon cancer, status post surgery and chemo in 2018. -Acute kidney injury on chronic kidney disease, monitor urine output BUN and creatinine. Dr. Stuart is following in nephrology consultation. -Acute on chronic diastolic CHF -Atrial fibrillation. -Obstructive sleep apnea -History of hypertension -History of left upper extremity DVT Result Diagram: 02/06/19 0458 02/08/19 0503 Results 24hrs Laboratory Tests Test 02/08/19 05:03 Sodium Level 137 Potassium Level 3.3 L Chloride Level 104 Carbon Dioxide Level 29 Anion Gap 4 L Blood Urea Nitrogen 10 Creatinine 0.67 Est Glomerular Filtrat Rate mL/min > 60 Glucose Level 110 Calcium Level 8.1 L Total Bilirubin 0.2 Direct Bilirubin 0.00 Indirect Bilirubin 0.2 Aspartate Amino Transf (AST/SGOT) 35 Alanine Aminotransferase (ALT/SGPT) 28 Alkaline Phosphatase 90 Total Protein 5.2 L Albumin 2.4 L Globulin 2.80 Albumin/Globulin Ratio 0.85 Exam/Review of Systems Exam Vitals Vital Signs Date Temp Pulse Resp B/P (MAP) Pulse Ox O2 O2 Flow FiO2 Time Delivery Rate 02/08/19 96 2.0 13:43 02/08/19 93 18 Nasal 13:43 Cannula 02/08/19 98.7 108/66 11:30 (80) 02/06/19 33 02:18 Intake and Output 02/07/19 02/07/19 02/08/19 1515:00 23:00 07:00 IntakeIntake Total 550 ml 1650 ml OutputOutput Total 1000 ml 1500 ml BalanceBalance -450 ml 150 ml Constitutional: alert, oriented, well developed, obese Psych: nl mood/affect ENMT: nl external ears & nose Respiratory: clear to auscultation Cardiovascular: nl pulses, other (s1s2) Gastrointestinal: soft, non-tender, other (surgical) Musculoskeletal: nl extremities to inspection Extremities: normal pulses Neurological: nl mental status, nl speech Skin: nl turgor Lymph: nontender Results Results 24hrs Laboratory Tests Test 02/08/19 05:03 Sodium Level 137 Potassium Level 3.3 L Chloride Level 104 Carbon Dioxide Level 29 Anion Gap 4 L Blood Urea Nitrogen 10 Creatinine 0.67 Est Glomerular Filtrat Rate mL/min > 60 Glucose Level 110 Calcium Level 8.1 L Total Bilirubin 0.2 Direct Bilirubin 0.00 Indirect Bilirubin 0.2 Aspartate Amino Transf (AST/SGOT) 35 Alanine Aminotransferase (ALT/SGPT) 28 Alkaline Phosphatase 90 Total Protein 5.2 L Albumin 2.4 L Globulin 2.80 Albumin/Globulin Ratio 0.85 Medications Medication Current Medications Miscellaneous Information (* Miscellaneous Pharmacy Order) DURAMORPH: 3.5MG EPIDU... GIVEN NEURAXIAL XX ; Start 01/21/19 at 10:00 Hydromorphone HCl (Dilaudid) 0.2 mg Q2H PRN IV .PAIN 1-5 Last administered on 02/02/19at 13:39; Admin Dose 0.2 MG; Start 01/21/19 at 12:00 Hydromorphone HCl (Dilaudid) 0.4 mg Q2H PRN IV .PAIN 6-10 Last administered on 02/01/19at 20:18; Admin Dose 0.4 MG; Start 01/21/19 at 12:00 Acetaminophen/ Hydrocodone Bitart ([place] (5/325)) 1 tab Q4H PRN PO .PAIN 4-6 Last administered on 01/25/19at 08:34; Admin Dose 1 TAB; Start 01/21/19 at 12:00 Diphenhydramine HCl (Benadryl) 25 mg Q4H PRN IV .PRURITUS; Start 01/21/19 at 12:00 Nalbuphine HCl (Nubain) 10 mg Q4H PRN IV .PRURITUS; Start 01/21/19 at 12:00 Ondansetron HCl (Zofran Inj) 4 mg Q6H PRN IV .NAUSEA/VOMITING Last administered on 01/22/19 23:48; Admin Dose 4 MG; Start 01/21/19 at 12:00 Trimethobenzamide HCl (Tigan) 200 mg Q6H PRN IM .NAUSEA/VOMITING; Start 01/21/19 at 12:00 Zolpidem Tartrate (Ambien) 5 mg HS MAY REPEAT X 1 PRN PO .INSOMNIA; Start 01/21/19 at 12:00 Naloxone HCl (Narcan) 0.2 mg Q2M PRN IV .RESP RATE; Start 01/21/19 at 12:00 Hydralazine HCl (Apresoline) 10 mg Q4H PRN IV >150/95 Last administered on 01/24/19 05:34; Admin Dose 10 MG; Start 01/21/19 at 14:00 Metoprolol Tartrate (Lopressor) 5 mg Q4H PRN IV HR>110 HOld SBP<100 Last administered on 01/25/19 05:11; Admin Dose 5 MG; Start 01/23/19 at 20:30 Levalbuterol (Xopenex Neb) 0.63 mg Q6H RESP THERAPY HHN Last administered on 02/08/19at 13:42; Admin Dose 0.63 MG; Start 01/24/19 at 23:30 Acetaminophen (Tylenol Tab) 650 mg Q6H PRN PO MILD PAIN(1-3)OR ELEVATED TEMP Last administered on 01/29/19 23:29; Admin Dose 650 MG; Start 01/29/19 at 23:30 Al Hydrox/Mg Hydrox/Simethicone (Mag-Al Plus) 30 ml Q4H PRN PO GASTROINTESTINAL UPSET Last administered on 01/30/19 18:39; Admin Dose 30 ML; Start 01/29/19 at 23:30 Atenolol (Tenormin) 50 mg BID PO Last administered on 02/07/19 21:24; Admin Dose 50 MG; Start 01/30/19 at 21:00 Fluconazole/ Sodium Chloride 50 ml @ 50 mls/hr Q24H IVPB Last administered on 4/25/19at 20:30; Admin Dose 50 MLS/HR; Start 01/30/19 at 20:30 Cefepime HCl 50 ml @ 100 mls/hr Q12 IVPB Last administered on 02/08/19at 08:42; Admin Dose 100 MLS/HR; Start 02/04/19 at 14:00 Metronidazole 100 ml @ 100 mls/hr Q8 IVPB Last administered on 02/08/19at 05:24; Admin Dose 100 MLS/HR; Start 02/04/19 at 14:00 Neomycin/ Polymyxin/ Gramicidin (Neosporin Oph Drop) 1 drop QID RIGHT EYE Last administered on 02/08/19at 09:58; Admin Dose 1 DROP; Start 02/05/19 at 21:00; Stop 02/12/19 at 20:59 Furosemide (Lasix) 20 mg BID DIURETICS IV Last administered on 02/08/19 05:24; Admin Dose 20 MG; Start 02/06/19 at 18:00 Potassium Chloride 10 meq/ Sodium Chloride 1,005 ml @ 75 mls/hr [id number] IV ; Start 02/10/19 at 23:00 LUIS HARDWICK Feb 08, 2019 13:54
[2019-02-08] MEDS ORDERED: POTASSIUM CHLORIDE 100 ML IVPB ONE ×2 (14:00)
[2019-02-08] MEDS: FLUCONAZOLE 100 MG/50 ML (PMX) 50 ML IVPB SCH (20:32)
[2019-02-09] VITALS (12 sets, daily range): BP systolic 117–144; BP diastolic 69–86; PULSE 87–100; RESP 18–22
[2019-02-09] MEDS: LEVALBUTEROL (NEB) 0.63 MG/3 ML AMP HHN SCH ×4 (01:22→19:33)
[2019-02-09] MEDS: metroNIDAZOLE 500 MG/NS (PMX) 100 ML IVPB SCH ×3 (05:56→22:47)
[2019-02-09] MEDS: FUROSEMIDE 20 MG INJ IV SCH ×2 (05:57→17:17)
[2019-02-09] MEDS: CEFEPIME 2GM/50 ML (PMX) 50 ML IVPB SCH ×2 (08:16→22:07)
[2019-02-09] MEDS: ATENOLOL 50 MG TAB PO SCH ×2 (08:16→20:46)
[2019-02-09] MEDS: NEOMYC/POLYMYX/GRAM 10 ML OPH RIGHT EYE SCH ×4 (08:18→20:53)
--- NOTE | 2019-02-09 09:52 | CONS ---
Consult Date/Type/Reason Admit Date/Time Jan 21, 2019 at 06:18 Initial Consult Date Requesting Provider: ODELL PACHECO Date/Time of Note DATE: 02/09/19 TIME: 09:51 Subjective NO acute e vents - rate controlled - no CP now. ROS: No fever, no chills, no nausea, no vomiting, no diarrhea/constipation No recent weight changes No chest pain, no PND, no orthopnea + adb discomfort + fatigue No dizziness, blurred vision No thirst, no heat or cold intolerance Objective Vitals Vital Signs Date Temp Pulse Resp B/P (MAP) Pulse Ox O2 O2 Flow FiO2 Time Delivery Rate 02/09/19 100 08:10 02/09/19 16 98 Nasal 2.0 08:10 Cannula 02/09/19 97.7 117/78 07:31 (91) 02/06/19 33 02:18 Intake and Output 02/08/19 02/08/19 02/09/19 1515:00 23:00 07:00 IntakeIntake Total 850 ml OutputOutput Total 1600 ml BalanceBalance -750 ml Exam General: WN/WD/NAD, AOx 2-3 HEENT: Unicetric/atraumatic/EOMI (follow commands) NECK: JVD elevated, no thyromegaly Lymph: no lymphadenopathy HEART: regular with no S3, II/ systolic murmur at apex LUNGS: Coarse sounds ABD: soft, NT, ND, +BS : Intact Neuro: non focal SKIN: chronic changes EXT: trace edema Results/Medications Result Diagram: 02/06/19 0458 02/09/19 0505 Results 24 hrs Laboratory Tests Test 02/08/19 14:31 02/09/19 05:05 Prothrombin Time 14.4 # Prothrombin Time Ratio 1.1 INR International Normalized Ratio 1.11 Activated Partial Thromboplast Time 40.0 H Sodium Level 138 Potassium Level 3.5 Chloride Level 105 Carbon Dioxide Level 28 Anion Gap 5 Blood Urea Nitrogen 11 Creatinine 0.65 Est Glomerular Filtrat Rate mL/min > 60 Glucose Level 121 Calcium Level 8.3 L Total Bilirubin 0.1 L Direct Bilirubin 0.00 Indirect Bilirubin 0.1 Aspartate Amino Transf (AST/SGOT) 36 Alanine Aminotransferase (ALT/SGPT) 26 Alkaline Phosphatase 102 Total Protein 5.5 L Albumin 2.5 L Globulin 3.00 Albumin/Globulin Ratio 0.83 [facility] Active Scripts Carvedilol* (Carvedilol*) 25 Mg Tablet, 25 MG PO BID for 30 Days, TAB Prov:ODELL PACHECO 01/15/18 Furosemide* (Furosemide*) 20 Mg Tablet, 20 MG PO DAILY for 30 Days, TAB Prov:ODELL PACHECO 01/15/18 Reported Medications Apixaban* (Eliquis*) 5 Mg Tablet, 5 MG PO BID, TAB 11/02/18 Losartan Potassium* (Losartan Potassium*) 100 Mg Tablet, 100 MG PO DAILY, TAB 11/02/18 Nifedipine* (Nifedipine ER*) 60 Mg Tablet.sa, 60 MG PO BID, TAB.SA 11/02/18 Atorvastatin Calcium* (Atorvastatin Calcium*) 20 Mg Tablet, 20 MG PO QHS, #30 TAB 01/07/18 Medications Current Medications Miscellaneous Information (* Miscellaneous Pharmacy Order) DURAMORPH: 3.5MG EPIDU... GIVEN NEURAXIAL XX ; Start 01/21/19 at 10:00 Hydromorphone HCl (Dilaudid) 0.2 mg Q2H PRN IV .PAIN 1-5 Last administered on 02/02/19at 13:39; Admin Dose 0.2 MG; Start 01/21/19 at 12:00 Hydromorphone HCl (Dilaudid) 0.4 mg Q2H PRN IV .PAIN 6-10 Last administered on 02/01/19at 20:18; Admin Dose 0.4 MG; Start 01/21/19 at 12:00 Acetaminophen/ Hydrocodone Bitart ([place] (5/325)) 1 tab Q4H PRN PO .PAIN 4-6 Last administered on 01/25/19at 08:34; Admin Dose 1 TAB; Start 01/21/19 at 12:00 Diphenhydramine HCl (Benadryl) 25 mg Q4H PRN IV .PRURITUS; Start 01/21/19 at 12:00 Nalbuphine HCl (Nubain) 10 mg Q4H PRN IV .PRURITUS; Start 01/21/19 at 12:00 Ondansetron HCl (Zofran Inj) 4 mg Q6H PRN IV .NAUSEA/VOMITING Last administered on 01/22/19at 23:48; Admin Dose 4 MG; Start 01/21/19 at 12:00 Trimethobenzamide HCl (Tigan) 200 mg Q6H PRN IM .NAUSEA/VOMITING; Start 01/21/19 at 12:00 Zolpidem Tartrate (Ambien) 5 mg HS MAY REPEAT X 1 PRN PO .INSOMNIA; Start 01/21/19 at 12:00 Naloxone HCl (Narcan) 0.2 mg Q2M PRN IV .RESP RATE; Start 01/21/19 at 12:00 Hydralazine HCl (Apresoline) 10 mg Q4H PRN IV >150/95 Last administered on 01/24/19 05:34; Admin Dose 10 MG; Start 01/21/19 at 14:00 Metoprolol Tartrate (Lopressor) 5 mg Q4H PRN IV HR>110 HOld SBP<100 Last administered on 01/25/19 05:11; Admin Dose 5 MG; Start 01/23/19 at 20:30 Levalbuterol (Xopenex Neb) 0.63 mg Q6H RESP THERAPY HHN Last administered on 02/09/19 08:08; Admin Dose 0.63 MG; Start 01/24/19 at 23:30 Acetaminophen (Tylenol Tab) 650 mg Q6H PRN PO MILD PAIN(1-3)OR ELEVATED TEMP Last administered on 01/29/19at 23:29; Admin Dose 650 MG; Start 01/29/19 at 23:30 Al Hydrox/Mg Hydrox/Simethicone (Mag-Al Plus) 30 ml Q4H PRN PO GASTROINTESTINAL UPSET Last administered on 01/30/19 18:39; Admin Dose 30 ML; Start 01/29/19 at 23:30 Atenolol (Tenormin) 50 mg BID PO Last administered on 02/09/19 08:16; Admin Dose 50 MG; Start 01/30/19 at 21:00 Fluconazole/ Sodium Chloride 50 ml @ 50 mls/hr Q24H IVPB Last administered on 02/08/19 20:32; Admin Dose 50 MLS/HR; Start 01/30/19 at 20:30 Cefepime HCl 50 ml @ 100 mls/hr Q12 IVPB Last administered on 02/09/19 08:16; Admin Dose 100 MLS/HR; Start 4/22/19 at 14:00 Metronidazole 100 ml @ 100 mls/hr Q8 IVPB Last administered on 02/09/19at 05:56; Admin Dose 100 MLS/HR; Start 02/04/19 at 14:00 Neomycin/ Polymyxin/ Gramicidin (Neosporin Oph Drop) 1 drop QID RIGHT EYE Last administered on 02/08/19at 16:31; Admin Dose 1 DROP; Start 02/05/19 at 21:00; Stop 02/12/19 at 20:59 Furosemide (Lasix) 20 mg BID DIURETICS IV Last administered on 02/09/19at 05:57; Admin Dose 20 MG; Start 02/06/19 at 18:00 Potassium Chloride 10 meq/ Sodium Chloride 1,005 ml @ 75 mls/hr [id number] IV ; Start 02/10/19 at 23:00 Assessment/Plan Hospital Course (Demo Recall) 1. Tachycardia, at this time sinus tachycardia in the setting of significant pain, fevers, status post surgery. NL EF by echo 60-65. ON had onset of AF with RVR - now rate better controlled. In sinus now - rate controlled. HR better now. Trated. 2. Possible congestive heart failure by chest x-ray with the patient having the onset of acute renal failure at this time. Improved CHF. Better. Keep euvolemic. 3. Hypertension, mildly elevated. BP well optimized nw. Will re-check post am meds. 4. Postoperative status post reversal colostomy - GI team follows,. Con't to recover. On therapy. 5. Fevers postop - resolved. 6. Renal failure, acute.-improved now - renal team follows. 7. History of colon carcinoma status post prior colectomy with colostomy. 8. Hypernatremia, improved 9. Hypomagnesemia-improved 10. Leukocytosis. On anti-Bx, better overall. SUSSY ANTHONY MD Feb 09, 2019 09:52
--- NOTE | 2019-02-09 10:11 | CONS ---
Assessment/Plan Assessment/Plan Hospital Course (Demo Recall) assessment/impression - sepsis due to complicated intra-abdominal infection and pneumonia - pleural effusion, exudative process, parapneumonic effusion LDH 1601 protein 3.2, no malignancy on cytology - s/p R sided thoracentesis on 02/05/2019 - s/p open Reagan reversal and colorectal low pelvic anastomosis, segmental partial colectomy, and open incarcerated incisional and parastomal hernia r epairs with mesh by Dr. Art on 01/21/2019 - follow up CT on 02/04/2019 did not identify definite point of leak - s/p CT guided drainage of abscess in LLQ on 02/01/2019 - abdominal wound culture 01/30/19 and abscess culture 01/31/19 grew pseudomonas, joseline albicans and glabrata - possible anastomotic leak of fecal material - stage III sigmoid colon cancer, status post prior colectomy/colostomy and chem o in 2017 - s/p acute kidney injury on chronic kidney disease - acute on chronic diastolic CHF - atrial fibrillation - VIJAY - s/p colostomy reversal - R conjunctivitis - Hx hypertension - Hx left upper extremity DVT - superficial thrombus in R cephalic vein in the forearm and in L cephalic vein in the antecubital fossa as visualized on NOY 02/05/2019 recommendations: - pending results: cultures of bacteria, fungi and AFB of R pleural effusion - continue cefepime and metronidazole (02/04/2019-). Pt previously took meropenem (01/30/2019-02/03/2019) - continue fluconazole (01/30/2019-) - continue neomycin eye drop for 7 days (02/05/2019-) Management d/w CATHERINE Sam and with Dr. Vázquez Consultation Date/Type/Reason Admit Date/Time Jan 21, 2019 at 06:18 Initial Consult Date 01/30/19 Type of Consult Infectious Disease Requesting Provider: ODELL PACHECO Date/Time of Note DATE: 02/09/19 TIME: 10:09 24 HR Interval Summary Free Text/Dictation C/o same SOB. Denies pain. Exam/Review of Systems Exam Vitals Vital Signs Date Temp Pulse Resp B/P (MAP) Pulse Ox O2 O2 Flow FiO2 Time Delivery Rate 02/09/19 100 08:10 02/09/19 16 98 Nasal 2.0 08:10 Cannula 02/09/19 97.7 117/78 07:31 (91) 02/06/19 33 02:18 Intake and Output 02/08/19 02/08/19 02/09/19 1515:00 23:00 07:00 IntakeIntake Total 850 ml OutputOutput Total 1600 ml BalanceBalance -750 ml Exam Constitutional: alert, oriented, well developed, frail, obese Psych: nl mood/affect Head: normocephalic, atraumatic Eyes: nl lids, other (R conjunctival erythema, no drainage) ENMT: nl external ears & nose, nl lips & teeth, nl nasal mucosa & septum, mucosa pink and moist Neck: supple Respiratory: clear to auscultation, diminished breath sounds (at bases), other (On O2 at 2L via NC) Cardiovascular: nl pulses, other (irregularly irregular, slightly tachycardic) Gastrointestinal: soft, distended, surgical scars, other (+ostomy bag x2 and +external drainage catheter) Musculoskeletal: nl extremities to inspection Extremities: normal pulses, edema (pretibial/pedal) Neurological: nl mental status, nl speech (Frisian speaking) Skin: nl turgor, ecchymosis Results Result Diagram: 02/06/19 0458 02/09/19 0505 Results 24hrs Laboratory Tests Test 02/08/19 14:31 02/09/19 05:05 Prothrombin Time 14.4 # Prothrombin Time Ratio 1.1 INR International Normalized Ratio 1.11 Activated Partial Thromboplast Time 40.0 H Sodium Level 138 Potassium Level 3.5 Chloride Level 105 Carbon Dioxide Level 28 Anion Gap 5 Blood Urea Nitrogen 11 Creatinine 0.65 Est Glomerular Filtrat Rate mL/min > 60 Glucose Level 121 Calcium Level 8.3 L Total Bilirubin 0.1 L Direct Bilirubin 0.00 Indirect Bilirubin 0.1 Aspartate Amino Transf (AST/SGOT) 36 Alanine Aminotransferase (ALT/SGPT) 26 Alkaline Phosphatase 102 Total Protein 5.5 L Albumin 2.5 L Globulin 3.00 Albumin/Globulin Ratio 0.83 Medications Medication Current Medications Miscellaneous Information (* Miscellaneous Pharmacy Order) DURAMORPH: 3.5MG EPIDU... GIVEN NEURAXIAL XX ; Start 01/21/19 at 10:00 Hydromorphone HCl (Dilaudid) 0.2 mg Q2H PRN IV .PAIN 1-5 Last administered on 02/02/19 13:39; Admin Dose 0.2 MG; Start 01/21/19 at 12:00 Hydromorphone HCl (Dilaudid) 0.4 mg Q2H PRN IV .PAIN 6-10 Last administered on 02/01/19 20:18; Admin Dose 0.4 MG; Start 01/21/19 at 12:00 Acetaminophen/ Hydrocodone Bitart ([place] (5/325)) 1 tab Q4H PRN PO .PAIN 4-6 Last administered on 01/25/19 08:34; Admin Dose 1 TAB; Start 01/21/19 at 12:00 Diphenhydramine HCl (Benadryl) 25 mg Q4H PRN IV .PRURITUS; Start 01/21/19 at 12:00 Nalbuphine HCl (Nubain) 10 mg Q4H PRN IV .PRURITUS; Start 01/21/19 at 12:00 Ondansetron HCl (Zofran Inj) 4 mg Q6H PRN IV .NAUSEA/VOMITING Last administered on 01/22/19 23:48; Admin Dose 4 MG; Start 01/21/19 at 12:00 Trimethobenzamide HCl (Tigan) 200 mg Q6H PRN IM .NAUSEA/VOMITING; Start 01/21/19 at 12:00 Zolpidem Tartrate (Ambien) 5 mg HS MAY REPEAT X 1 PRN PO .INSOMNIA; Start 01/21/19 at 12:00 Naloxone HCl (Narcan) 0.2 mg Q2M PRN IV .RESP RATE; Start 01/21/19 at 12:00 Hydralazine HCl (Apresoline) 10 mg Q4H PRN IV >150/95 Last administered on 01/24/19 05:34; Admin Dose 10 MG; Start 01/21/19 at 14:00 Metoprolol Tartrate (Lopressor) 5 mg Q4H PRN IV HR>110 HOld SBP<100 Last administered on 01/25/19 05:11; Admin Dose 5 MG; Start 01/23/19 at 20:30 Levalbuterol (Xopenex Neb) 0.63 mg Q6H RESP THERAPY HHN Last administered on 02/09/19 08:08; Admin Dose 0.63 MG; Start 01/24/19 at 23:30 Acetaminophen (Tylenol Tab) 650 mg Q6H PRN PO MILD PAIN(1-3)OR ELEVATED TEMP L ast administered on 01/29/19 23:29; Admin Dose 650 MG; Start 01/29/19 at 23:30 Al Hydrox/Mg Hydrox/Simethicone (Mag-Al Plus) 30 ml Q4H PRN PO GASTROINTESTINAL UPSET Last administered on 01/30/19 18:39; Admin Dose 30 ML; Start 01/29/19 at 23:30 Atenolol (Tenormin) 50 mg BID PO Last administered on 02/09/19 08:16; Admin Dose 50 MG; Start 01/30/19 at 21:00 Fluconazole/ Sodium Chloride 50 ml @ 50 mls/hr Q24H IVPB Last administered on 02/08/19 20:32; Admin Dose 50 MLS/HR; Start 01/30/19 at 20:30 Cefepime HCl 50 ml @ 100 mls/hr Q12 IVPB Last administered on 02/09/19 08:16; Admin Dose 100 MLS/HR; Start 02/04/19 at 14:00 Metronidazole 100 ml @ 100 mls/hr Q8 IVPB Last administered on 02/09/19 05:56; Admin Dose 100 MLS/HR; Start 02/04/19 at 14:00 Neomycin/ Polymyxin/ Gramicidin (Neosporin Oph Drop) 1 drop QID RIGHT EYE Last administered on 02/08/19 16:31; Admin Dose 1 DROP; Start 02/05/19 at 21:00; Stop 02/12/19 at 20:59 Furosemide (Lasix) 20 mg BID DIURETICS IV Last administered on 02/09/19 05:57; Admin Dose 20 MG; Start 02/06/19 at 18:00 Potassium Chloride 10 meq/ Sodium Chloride 1,005 ml @ 75 mls/hr [id number] IV ; Start 02/10/19 at 23:00 YVETTE BAÑUELOS NP Feb 09, 2019 10:11
--- NOTE | 2019-02-09 11:38 | PN ---
Date/Time of Note Date/Time of Note DATE: 02/09/19 TIME: 11:36 Assessment/Plan VTE Prophylaxis Risk score (from Ns)>0 risk: 4 SCD applied (from Ns): No SCD contraindicated: other Pharmacological prophylaxis: other Lines/Catheters [facility] Mid Line Urinary Cath still in place: No Assessment/Plan Assessment/Plan s/p reversal chisholm's with anastomosis leak will perform exp lap on monday Result Diagram: 02/06/19 0458 02/09/19 0505 Results 24hrs Laboratory Tests Test 02/08/19 14:31 02/09/19 05:05 Prothrombin Time 14.4 # Prothrombin Time Ratio 1.1 INR International Normalized Ratio 1.11 Activated Partial Thromboplast Time 40.0 H Sodium Level 138 Potassium Level 3.5 Chloride Level 105 Carbon Dioxide Level 28 Anion Gap 5 Blood Urea Nitrogen 11 Creatinine 0.65 Est Glomerular Filtrat Rate mL/min > 60 Glucose Level 121 Calcium Level 8.3 L Total Bilirubin 0.1 L Direct Bilirubin 0.00 Indirect Bilirubin 0.1 Aspartate Amino Transf (AST/SGOT) 36 Alanine Aminotransferase (ALT/SGPT) 26 Alkaline Phosphatase 102 Total Protein 5.5 L Albumin 2.5 L Globulin 3.00 Albumin/Globulin Ratio 0.83 Subjective 24 Hr Interval Summary Free Text/Dictation no new issues patient taken off anticoagulation Exam/Review of Systems Exam Vitals Vital Signs Date Temp Pulse Resp B/P (MAP) Pulse Ox O2 O2 Flow FiO2 Time Delivery Rate 02/09/19 98.2 96 22 132/71 97 Nasal 11:21 (91) Cannula 02/09/19 2.0 08:10 02/06/19 33 02:18 Intake and Output 02/08/19 02/08/19 02/09/19 1515:00 23:00 07:00 IntakeIntake Total 850 ml OutputOutput Total 1600 ml BalanceBalance -750 ml Exam brown fluid drainage from prior ostomy site Results Results 24hrs Laboratory Tests Test 02/08/19 14:31 02/09/19 05:05 Prothrombin Time 14.4 # Prothrombin Time Ratio 1.1 INR International Normalized Ratio 1.11 Activated Partial Thromboplast Time 40.0 H Sodium Level 138 Potassium Level 3.5 Chloride Level 105 Carbon Dioxide Level 28 Anion Gap 5 Blood Urea Nitrogen 11 Creatinine 0.65 Est Glomerular Filtrat Rate mL/min > 60 Glucose Level 121 Calcium Level 8.3 L Total Bilirubin 0.1 L Direct Bilirubin 0.00 Indirect Bilirubin 0.1 Aspartate Amino Transf (AST/SGOT) 36 Alanine Aminotransferase (ALT/SGPT) 26 Alkaline Phosphatase 102 Total Protein 5.5 L Albumin 2.5 L Globulin 3.00 Albumin/Globulin Ratio 0.83 Medications Medication Current Medications Miscellaneous Information (* Miscellaneous Pharmacy Order) DURAMORPH: 3.5MG EPIDU... GIVEN NEURAXIAL XX ; Start 01/21/19 at 10:00 Hydromorphone HCl (Dilaudid) 0.2 mg Q2H PRN IV .PAIN 1-5 Last administered on 02/02/19at 13:39; Admin Dose 0.2 MG; Start 01/21/19 at 12:00 Hydromorphone HCl (Dilaudid) 0.4 mg Q2H PRN IV .PAIN 6-10 Last administered on 02/01/19at 20:18; Admin Dose 0.4 MG; Start 01/21/19 at 12:00 Acetaminophen/ Hydrocodone Bitart ([place] (5/325)) 1 tab Q4H PRN PO .PAIN 4-6 Last administered on 01/25/19at 08:34; Admin Dose 1 TAB; Start 01/21/19 at 12:00 Diphenhydramine HCl (Benadryl) 25 mg Q4H PRN IV .PRURITUS; Start 01/21/19 at 12:00 Nalbuphine HCl (Nubain) 10 mg Q4H PRN IV .PRURITUS; Start 01/21/19 at 12:00 Ondansetron HCl (Zofran Inj) 4 mg Q6H PRN IV .NAUSEA/VOMITING Last administered on 01/22/19at 23:48; Admin Dose 4 MG; Start 01/21/19 at 12:00 Trimethobenzamide HCl (Tigan) 200 mg Q6H PRN IM .NAUSEA/VOMITING; Start 01/21/19 at 12:00 Zolpidem Tartrate (Ambien) 5 mg HS MAY REPEAT X 1 PRN PO .INSOMNIA; Start 01/21/19 at 12:00 Naloxone HCl (Narcan) 0.2 mg Q2M PRN IV .RESP RATE; Start 01/21/19 at 12:00 Hydralazine HCl (Apresoline) 10 mg Q4H PRN IV >150/95 Last administered on 01/24/19 05:34; Admin Dose 10 MG; Start 01/21/19 at 14:00 Metoprolol Tartrate (Lopressor) 5 mg Q4H PRN IV HR>110 HOld SBP<100 Last administered on 01/25/19 05:11; Admin Dose 5 MG; Start 01/23/19 at 20:30 Levalbuterol (Xopenex Neb) 0.63 mg Q6H RESP THERAPY HHN Last administered on 02/09/19 08:08; Admin Dose 0.63 MG; Start 01/24/19 at 23:30 Acetaminophen (Tylenol Tab) 650 mg Q6H PRN PO MILD PAIN(1-3)OR ELEVATED TEMP Last administered on 01/29/19 23:29; Admin Dose 650 MG; Start 01/29/19 at 23:30 Al Hydrox/Mg Hydrox/Simethicone (Mag-Al Plus) 30 ml Q4H PRN PO GASTROINTESTINAL UPSET Last administered on 01/30/19 18:39; Admin Dose 30 ML; Start 01/29/19 at 23:30 Atenolol (Tenormin) 50 mg BID PO Last administered on 02/09/19 08:16; Admin Dose 50 MG; Start 01/30/19 at 21:00 Fluconazole/ Sodium Chloride 50 ml @ 50 mls/hr Q24H IVPB Last administered on 02/08/19 20:32; Admin Dose 50 MLS/HR; Start 01/30/19 at 20:30 Cefepime HCl 50 ml @ 100 mls/hr Q12 IVPB Last administered on 02/09/19 08:16; Admin Dose 100 MLS/HR; Start 02/04/19 at 14:00 Metronidazole 100 ml @ 100 mls/hr Q8 IVPB Last administered on 02/09/19 05:56; Admin Dose 100 MLS/HR; Start 02/04/19 at 14:00 Neomycin/ Polymyxin/ Gramicidin (Neosporin Oph Drop) 1 drop QID RIGHT EYE Last administered on 02/08/19 16:31; Admin Dose 1 DROP; Start 02/05/19 at 21:00; Stop 02/12/19 at 20:59 Furosemide (Lasix) 20 mg BID DIURETICS IV Last administered on 02/09/19at 05:57; Admin Dose 20 MG; Start 02/06/19 at 18:00 Potassium Chloride 10 meq/ Sodium Chloride 1,005 ml @ 75 mls/hr [id number] IV ; Start 02/10/19 at 23:00 Ann FERNANDEZ Feb 09, 2019 11:38
--- NOTE | 2019-02-09 11:49 | PN ---
Date/Time of Note Date/Time of Note DATE: 02/09/19 TIME: 11:37 Assessment/Plan VTE Prophylaxis Risk score (from Ns)>0 risk: 4 SCD applied (from [facility] [place]): No SCD contraindicated: other Pharmacological prophylaxis: other Pharm contraindication: other Lines/Catheters IV Catheter Type (from [facility]): Mid Line Central line still needed: Yes Urinary Cath still in place: No Assessment/Plan Assessment/Plan - Hypokalemia- K reSOLVED -Increased leukocytosis patient is currently on Zosyn and Flagyl, CT of the abdomen and pelvis revealed moderate ascites, questionable peritonitis or abscess increased right lower lobe infiltrate. Dr. Vázquez is following in infection disease consultation. -Possible surgical wound infection, obtain wound cx. -Right lower lobe infiltrate -S/p open Reagan reversal and colorectal low pelvic anastomosis, segmental partial colectomy, and open incarcerated incisional and parastomal hernia repairs with mesh by Dr. Art on 01/21/2019. Continue [place] and Dilaudid as needed for pain and Zofran as needed for nausea. -Stage III sigmoid colon cancer, status post surgery and chemo in 2018. -Acute kidney injury on chronic kidney disease, monitor urine output BUN and creatinine. Dr. Stuart is following in nephrology consultation. -Acute on chronic diastolic CHF -Atrial fibrillation. -Obstructive sleep apnea -History of hypertension -History of left upper extremity DVT Result Diagram: 02/06/19 0458 02/09/19 0505 Results 24hrs Laboratory Tests Test 02/08/19 14:31 02/09/19 05:05 Prothrombin Time 14.4 # Prothrombin Time Ratio 1.1 INR International Normalized Ratio 1.11 Activated Partial Thromboplast Time 40.0 H Sodium Level 138 Potassium Level 3.5 Chloride Level 105 Carbon Dioxide Level 28 Anion Gap 5 Blood Urea Nitrogen 11 Creatinine 0.65 Est Glomerular Filtrat Rate mL/min > 60 Glucose Level 121 Calcium Level 8.3 L Total Bilirubin 0.1 L Direct Bilirubin 0.00 Indirect Bilirubin 0.1 Aspartate Amino Transf (AST/SGOT) 36 Alanine Aminotransferase (ALT/SGPT) 26 Alkaline Phosphatase 102 Total Protein 5.5 L Albumin 2.5 L Globulin 3.00 Albumin/Globulin Ratio 0.83 Subjective 24 Hr Interval Summary Free Text/Dictation Possible sx on Monday. dw staff Constitutional: requiring IVF, requiring O2 ENT: no complaints Respiratory: shortness of breath (on exertion) Cardiovascular: no complaints Gastrointestinal: no complaints Genitourinary: no complaints Musculoskeletal: other (general weakness ) Skin: no complaints Neurologic: no complaints Endocrine: no complaints Psychological: nl mood/affect Immunologic: no complaints Exam/Review of Systems Exam Vitals Vital Signs Date Temp Pulse Resp B/P (MAP) Pulse Ox O2 O2 Flow FiO2 Time Delivery Rate 02/09/19 98.2 96 22 132/71 97 Nasal 11:21 (91) Cannula 02/09/19 2.0 08:10 02/06/19 33 02:18 Intake and Output 02/08/19 02/08/19 02/09/19 1515:00 23:00 07:00 IntakeIntake Total 850 ml OutputOutput Total 1600 ml BalanceBalance -750 ml Constitutional: alert, well developed, obese Psych: nl mood/affect Head: atraumatic Eyes: nl lids, nl sclera ENMT: nl external ears & nose Neck: non-tender Respiratory: diminished breath sounds (at bases bilaterally) Cardiovascular: nl pulses, other (s1s2) Gastrointestinal: tender, other (surgical abdomen) Musculoskeletal: nl extremities to inspection Extremities: normal pulses Skin: nl turgor Lymph: nontender Results Results 24hrs Laboratory Tests Test 02/08/19 14:31 02/09/19 05:05 Prothrombin Time 14.4 # Prothrombin Time Ratio 1.1 INR International Normalized Ratio 1.11 Activated Partial Thromboplast Time 40.0 H Sodium Level 138 Potassium Level 3.5 Chloride Level 105 Carbon Dioxide Level 28 Anion Gap 5 Blood Urea Nitrogen 11 Creatinine 0.65 Est Glomerular Filtrat Rate mL/min > 60 Glucose Level 121 Calcium Level 8.3 L Total Bilirubin 0.1 L Direct Bilirubin 0.00 Indirect Bilirubin 0.1 Aspartate Amino Transf (AST/SGOT) 36 Alanine Aminotransferase (ALT/SGPT) 26 Alkaline Phosphatase 102 Total Protein 5.5 L Albumin 2.5 L Globulin 3.00 Albumin/Globulin Ratio 0.83 Medications Medication Current Medications Miscellaneous Information (* Miscellaneous Pharmacy Order) DURAMORPH: 3.5MG EPIDU... GIVEN NEURAXIAL XX ; Start 01/21/19 at 10:00 Hydromorphone HCl (Dilaudid) 0.2 mg Q2H PRN IV .PAIN 1-5 Last administered on 02/02/19at 13:39; Admin Dose 0.2 MG; Start 01/21/19 at 12:00 Hydromorphone HCl (Dilaudid) 0.4 mg Q2H PRN IV .PAIN 6-10 Last administered on 02/01/19 20:18; Admin Dose 0.4 MG; Start 01/21/19 at 12:00 Acetaminophen/ Hydrocodone Bitart ([place] (5/325)) 1 tab Q4H PRN PO .PAIN 4-6 Last administered on 01/25/19 08:34; Admin Dose 1 TAB; Start 01/21/19 at 12:00 Diphenhydramine HCl (Benadryl) 25 mg Q4H PRN IV .PRURITUS; Start 01/21/19 at 12:00 Nalbuphine HCl (Nubain) 10 mg Q4H PRN IV .PRURITUS; Start 01/21/19 at 12:00 Ondansetron HCl (Zofran Inj) 4 mg Q6H PRN IV .NAUSEA/VOMITING Last administered on 01/22/19 23:48; Admin Dose 4 MG; Start 01/21/19 at 12:00 Trimethobenzamide HCl (Tigan) 200 mg Q6H PRN IM .NAUSEA/VOMITING; Start 01/21/19 at 12:00 Zolpidem Tartrate (Ambien) 5 mg HS MAY REPEAT X 1 PRN PO .INSOMNIA; Start 01/21/19 at 12:00 Naloxone HCl (Narcan) 0.2 mg Q2M PRN IV .RESP RATE; Start 01/21/19 at 12:00 Hydralazine HCl (Apresoline) 10 mg Q4H PRN IV >150/95 Last administered on 01/24/19 05:34; Admin Dose 10 MG; Start 01/21/19 at 14:00 Metoprolol Tartrate (Lopressor) 5 mg Q4H PRN IV HR>110 HOld SBP<100 Last administered on 01/25/19 05:11; Admin Dose 5 MG; Start 01/23/19 at 20:30 Levalbuterol (Xopenex Neb) 0.63 mg Q6H RESP THERAPY HHN Last administered on 02/09/19 08:08; Admin Dose 0.63 MG; Start 01/24/19 at 23:30 Acetaminophen (Tylenol Tab) 650 mg Q6H PRN PO MILD PAIN(1-3)OR ELEVATED TEMP Last administered on 01/29/19 23:29; Admin Dose 650 MG; Start 01/29/19 at 23:30 Al Hydrox/Mg Hydrox/Simethicone (Mag-Al Plus) 30 ml Q4H PRN PO GASTROINTESTINAL UPSET Last administered on 01/30/19 18:39; Admin Dose 30 ML; Start 01/29/19 at 23:30 Atenolol (Tenormin) 50 mg BID PO Last administered on 02/09/19 08:16; Admin Dose 50 MG; Start 01/30/19 at 21:00 Fluconazole/ Sodium Chloride 50 ml @ 50 mls/hr Q24H IVPB Last administered on 02/08/19 20:32; Admin Dose 50 MLS/HR; Start 01/30/19 at 20:30 Cefepime HCl 50 ml @ 100 mls/hr Q12 IVPB Last administered on 02/09/19 08:16; Admin Dose 100 MLS/HR; Start 02/04/19 at 14:00 Metronidazole 100 ml @ 100 mls/hr Q8 IVPB Last administered on 02/09/19 05:56; Admin Dose 100 MLS/HR; Start 02/04/19 at 14:00 Neomycin/ Polymyxin/ Gramicidin (Neosporin Oph Drop) 1 drop QID RIGHT EYE Last administered on 02/08/19 16:31; Admin Dose 1 DROP; Start 02/05/19 at 21:00; Stop 02/12/19 at 20:59 Furosemide (Lasix) 20 mg BID DIURETICS IV Last administered on 02/09/19 05:57; Admin Dose 20 MG; Start 02/06/19 at 18:00 Potassium Chloride 10 meq/ Sodium Chloride 1,005 ml @ 75 mls/hr [id number] IV ; Start 02/10/19 at 23:00 LUIS HARDWICK Feb 09, 2019 11:48
[2019-02-09] MEDS: FLUCONAZOLE 100 MG/50 ML (PMX) 50 ML IVPB SCH (20:45)
[2019-02-10] VITALS (11 sets, daily range): BP systolic 107–146; BP diastolic 63–83; PULSE 58–100; RESP 18–20
[2019-02-10] MEDS: LEVALBUTEROL (NEB) 0.63 MG/3 ML AMP HHN SCH ×4 (01:10→19:17)
[2019-02-10] MEDS: metroNIDAZOLE 500 MG/NS (PMX) 100 ML IVPB SCH ×2 (06:15→13:34)
[2019-02-10] MEDS: FUROSEMIDE 20 MG INJ IV SCH ×2 (06:15→17:26)
[2019-02-10] MEDS: ATENOLOL 50 MG TAB PO SCH ×2 (08:09→21:54)
[2019-02-10] MEDS: NEOMYC/POLYMYX/GRAM 10 ML OPH RIGHT EYE SCH ×4 (08:09→21:55)
[2019-02-10] MEDS: CEFEPIME 2GM/50 ML (PMX) 50 ML IVPB SCH ×2 (08:10→23:28)
--- NOTE | 2019-02-10 09:45 | CONS ---
[facility] HCIS Consult Follow-up Patient Name: Santiago Kelly Unit Number: [id number] Date of : 1960 Patient Status: Admitted Inpatient Attending Doctor: Ann Art Edit: MERCED RENNER M.D. on 02/11/19 @ 15:45 [place]: I discussed the management with [employer] Anthony and agree Assessment/Plan Assessment/Plan Hospital Course (Demo Recall) assessment/impression: - sepsis due to complicated intra-abdominal infection and pneumonia - improving - pleural effusion, exudative process, parapneumonic effusion LDH 1601 protein 3.2, no malignancy on cytology - s/p R sided thoracentesis on 02/05/2019 - s/p open Reagan reversal and colorectal low pelvic anastomosis, segmental partial colectomy, and open incarcerated incisional and parastomal hernia repairs with mesh by Dr. Art on 01/21/2019 - follow up CT on 02/04/2019 did not identify definite point of leak - s/p CT guided drainage of abscess in LLQ on 02/01/2019 - abdominal wound culture 01/30/19 and abscess culture 01/31/19 grew pseudomonas, joseline albicans and glabrata - possible anastomotic leak of fecal material - stage III sigmoid colon cancer, status post prior colectomy/colostomy and chemo in 2018 - s/p acute kidney injury on chronic kidney disease - acute on chronic diastolic CHF - atrial fibrillation - VIJAY - s/p colostomy reversal - R conjunctivitis - Hx hypertension - Hx left upper extremity DVT - superficial thrombus in R cephalic vein in the forearm and in L cephalic vein in the antecubital fossa as visualized on NOY 02/05/2019 recommendations: - pending results: cultures of AFB and fungi of R pleural effusion - continue cefepime and metronidazole (02/04/2019-). Pt previously took meropenem (01/30/2019-02/03/2019) - continue fluconazole (01/30/2019-) - continue neomycin eye drop for 7 days (02/05/2019-) Management d/w patient, RN Flaco, and with Dr. Renner Consultation Date/Type/Reason Admit Date/Time Jan 21, 2019 at 06:18 Initial Consult Date 01/30/19 Type of Consult Infectious Disease Requesting Provider: ODELL PACHECO Date/Time of Note DATE: 02/10/19 TIME: 09:44 24 HR Interval Summary Free Text/Dictation No acute issues; plan for NPO after MN and OR tomorrow per d/w nursing. Pt reports unchanged intermittent SOB. Denies pain, n/v/d, dysuria. States BLE edema has overall improved. Exam/Review of Systems Exam Vitals Vital Signs Date Temp Pulse Resp B/P (MAP) Pulse Ox O2 O2 Flow FiO2 Time Delivery Rate 02/10/19 84 20 98 Nasal 2.0 09:33 Cannula 02/10/19 98.2 135/82 07:44 (99) Intake and Output 02/09/19 02/09/19 02/10/19 1515:00 23:00 07:00 IntakeIntake Total 50 ml 800 ml 680 ml OutputOutput Total 550 ml 800 ml 1250 ml BalanceBalance -500 ml 0 ml -570 ml Exam Constitutional: alert, oriented, well developed, frail, obese Psych: nl mood/affect Head: normocephalic, atraumatic Eyes: nl lids, other (R conjunctival erythema has improved, no drainage) ENMT: nl external ears & nose, nl lips & teeth, nl nasal mucosa & septum, mucosa pink and moist Neck: supple Respiratory: clear to auscultation, diminished breath sounds (at bases), other (On O2 at 2L via NC) Cardiovascular: nl pulses, other (irregularly irregular, slightly tachycardic) Gastrointestinal: soft, distended, surgical scars, other (+ostomy bag x2 and +external drainage catheter on RLQ) Musculoskeletal: nl extremities to inspection Extremities: normal pulses, edema (pretibial/pedal) Neurological: nl mental status, nl speech (Sami speaking) Skin: nl turgor, ecchymosis Results Result Diagram: 02/06/19 0458 02/09/19 0505 Medications Medication Current Medications Miscellaneous Information (* Miscellaneous Pharmacy Order) DURAMORPH: 3.5MG EPIDU... GIVEN NEURAXIAL XX ; Start 01/21/19 at 10:00 Hydromorphone HCl (Dilaudid) 0.2 mg Q2H PRN IV .PAIN 1-5 Last administered on 02/02/19at 13:39; Admin Dose 0.2 MG; Start 01/21/19 at 12:00 Hydromorphone HCl (Dilaudid) 0.4 mg Q2H PRN IV .PAIN 6-10 Last administered on 02/01/19at 20:18; Admin Dose 0.4 MG; Start 01/21/19 at 12:00 Acetaminophen/ Hydrocodone Bitart ([place] (5/325)) 1 tab Q4H PRN PO .PAIN 4-6 Last administered on 01/25/19at 08:34; Admin Dose 1 TAB; Start 01/21/19 at 12:00 Diphenhydramine HCl (Benadryl) 25 mg Q4H PRN IV .PRURITUS; Start 01/21/19 at 12:00 Nalbuphine HCl (Nubain) 10 mg Q4H PRN IV .PRURITUS; Start 01/21/19 at 12:00 Ondansetron HCl (Zofran Inj) 4 mg Q6H PRN IV .NAUSEA/VOMITING Last administered on 01/22/19at 23:48; Admin Dose 4 MG; Start 01/21/19 at 12:00 Trimethobenzamide HCl (Tigan) 200 mg Q6H PRN IM .NAUSEA/VOMITING; Start 01/21/19 at 12:00 Zolpidem Tartrate (Ambien) 5 mg HS MAY REPEAT X 1 PRN PO .INSOMNIA; Start 01/21/19 at 12:00 Naloxone HCl (Narcan) 0.2 mg Q2M PRN IV .RESP RATE; Start 01/21/19 at 12:00 Hydralazine HCl (Apresoline) 10 mg Q4H PRN IV >150/95 Last administered on 01/24/19at 05:34; Admin Dose 10 MG; Start 01/21/19 at 14:00 Metoprolol Tartrate (Lopressor) 5 mg Q4H PRN IV HR>110 HOld SBP<100 Last administered on 01/25/19at 05:11; Admin Dose 5 MG; Start 01/23/19 at 20:30 Levalbuterol (Xopenex Neb) 0.63 mg Q6H RESP THERAPY HHN Last administered on 02/10/19 09:29; Admin Dose 0.63 MG; Start 01/24/19 at 23:30 Acetaminophen (Tylenol Tab) 650 mg Q6H PRN PO MILD PAIN(1-3)OR ELEVATED TEMP Last administered on 01/29/19 23:29; Admin Dose 650 MG; Start 01/29/19 at 23:30 Al Hydrox/Mg Hydrox/Simethicone (Mag-Al Plus) 30 ml Q4H PRN PO GASTROINTESTINAL UPSET Last administered on 01/30/19 18:39; Admin Dose 30 ML; Start 01/29/19 at 23:30 Atenolol (Tenormin) 50 mg BID PO Last administered on 02/10/19 08:09; Admin Dose 50 MG; Start 01/30/19 at 21:00 Fluconazole/ Sodium Chloride 50 ml @ 50 mls/hr Q24H IVPB Last administered on 02/09/19 20:45; Admin Dose 50 MLS/HR; Start 01/30/19 at 20:30 Cefepime HCl 50 ml @ 100 mls/hr Q12 IVPB Last administered on 02/10/19 08:10; Admin Dose 100 MLS/HR; Start 02/04/19 at 14:00 Metronidazole 100 ml @ 100 mls/hr Q8 IVPB Last administered on 02/10/19 06:15; Admin Dose 100 MLS/HR; Start 02/04/19 at 14:00 Neomycin/ Polymyxin/ Gramicidin (Neosporin Oph Drop) 1 drop QID RIGHT EYE Last administered on 02/10/19 08:09; Admin Dose 1 DROP; Start 02/05/19 at 21:00; Stop 02/12/19 at 20:59 Furosemide (Lasix) 20 mg BID DIURETICS IV Last administered on 02/10/19 06:15; Admin Dose 20 MG; Start 02/06/19 at 18:00 Potassium Chloride 10 meq/ Sodium Chloride 1,005 ml @ 75 mls/hr [id number] IV ; Start 02/10/19 at 23:00 YVETTE BAÑUELOS NP Feb 10, 2019 09:45
--- NOTE | 2019-02-10 13:46 | PN ---
Date/Time of Note Date/Time of Note DATE: 02/10/19 TIME: 13:44 Assessment/Plan VTE Prophylaxis Risk score (from Nsg)>0 risk: 4 SCD applied (from Nsg): No Lines/Catheters IV Catheter Type (from Nrsg): Mid Line Urinary Cath still in place: No Assessment/Plan Assessment/Plan - Hypokalemia- K reSOLVED -Increased leukocytosis patient is currently on Zosyn and Flagyl, CT of the abdomen and pelvis revealed moderate ascites, questionable peritonitis or abscess increased right lower lobe infiltrate. Dr. Vázquez is following in infection disease consultation. -Possible surgical wound infection, obtain wound cx. -Right lower lobe infiltrate -S/p open Reagan reversal and colorectal low pelvic anastomosis, segmental partial colectomy, and open incarcerated incisional and parastomal hernia repairs with mesh by Dr. Art on 01/21/2019. Continue [place] and Dilaudid as needed for pain and Zofran as needed for nausea. -Stage III sigmoid colon cancer, status post surgery and chemo in 2018. -Acute kidney injury on chronic kidney disease, monitor urine output BUN and creatinine. Dr. Stuart is following in nephrology consultation. -Acute on chronic diastolic CHF -Atrial fibrillation. -Obstructive sleep apnea -History of hypertension -History of left upper extremity DVT Result Diagram: 02/06/19 0458 02/09/19 0505 Subjective 24 Hr Interval Summary Free Text/Dictation SX tomorrow. Exam/Review of Systems Exam Vitals Vital Signs Date Temp Pulse Resp B/P (MAP) Pulse Ox O2 O2 Flow FiO2 Time Delivery Rate 02/10/19 83 12:03 02/10/19 98.4 18 131/73 99 11:42 (92) 02/10/19 Nasal 2.0 09:33 Cannula Intake and Output 02/09/19 02/09/19 02/10/19 1515:00 23:00 07:00 IntakeIntake Total 50 ml 800 ml 680 ml OutputOutput Total 550 ml 800 ml 1250 ml BalanceBalance -500 ml 0 ml -570 ml Medications Medication Current Medications Miscellaneous Information (* Miscellaneous Pharmacy Order) DURAMORPH: 3.5MG EPIDU... GIVEN NEURAXIAL XX ; Start 01/21/19 at 10:00 Hydromorphone HCl (Dilaudid) 0.2 mg Q2H PRN IV .PAIN 1-5 Last administered on 02/02/19 13:39; Admin Dose 0.2 MG; Start 01/21/19 at 12:00 Hydromorphone HCl (Dilaudid) 0.4 mg Q2H PRN IV .PAIN 6-10 Last administered on 02/01/19 20:18; Admin Dose 0.4 MG; Start 01/21/19 at 12:00 Acetaminophen/ Hydrocodone Bitart ([place] (5/325)) 1 tab Q4H PRN PO .PAIN 4-6 Last administered on 01/25/19 08:34; Admin Dose 1 TAB; Start 01/21/19 at 12:00 Diphenhydramine HCl (Benadryl) 25 mg Q4H PRN IV .PRURITUS; Start 01/21/19 at 12:00 Nalbuphine HCl (Nubain) 10 mg Q4H PRN IV .PRURITUS; Start 01/21/19 at 12:00 Ondansetron HCl (Zofran Inj) 4 mg Q6H PRN IV .NAUSEA/VOMITING Last administered on 01/22/19 23:48; Admin Dose 4 MG; Start 01/21/19 at 12:00 Trimethobenzamide HCl (Tigan) 200 mg Q6H PRN IM .NAUSEA/VOMITING; Start 01/21/19 at 12:00 Zolpidem Tartrate (Ambien) 5 mg HS MAY REPEAT X 1 PRN PO .INSOMNIA; Start 01/21/19 at 12:00 Naloxone HCl (Narcan) 0.2 mg Q2M PRN IV .RESP RATE; Start 01/21/19 at 12:00 Hydralazine HCl (Apresoline) 10 mg Q4H PRN IV >150/95 Last administered on 01/24/19 05:34; Admin Dose 10 MG; Start 01/21/19 at 14:00 Metoprolol Tartrate (Lopressor) 5 mg Q4H PRN IV HR>110 HOld SBP<100 Last administered on 01/25/19 05:11; Admin Dose 5 MG; Start 01/23/19 at 20:30 Levalbuterol (Xopenex Neb) 0.63 mg Q6H RESP THERAPY HHN Last administered on 02/10/19 13:21; Admin Dose 0.63 MG; Start 01/24/19 at 23:30 Acetaminophen (Tylenol Tab) 650 mg Q6H PRN PO MILD PAIN(1-3)OR ELEVATED TEMP Last administered on 01/29/19 23:29; Admin Dose 650 MG; Start 01/29/19 at 23:30 Al Hydrox/Mg Hydrox/Simethicone (Mag-Al Plus) 30 ml Q4H PRN PO GASTROINTESTINAL UPSET Last administered on 01/30/19 18:39; Admin Dose 30 ML; Start 01/29/19 at 23:30 Atenolol (Tenormin) 50 mg BID PO Last administered on 02/10/19 08:09; Admin Dose 50 MG; Start 01/30/19 at 21:00 Fluconazole/ Sodium Chloride 50 ml @ 50 mls/hr Q24H IVPB Last administered on 02/09/19 20:45; Admin Dose 50 MLS/HR; Start 01/30/19 at 20:30 Cefepime HCl 50 ml @ 100 mls/hr Q12 IVPB Last administered on 02/10/19 08:10; Admin Dose 100 MLS/HR; Start 02/04/19 at 14:00 Metronidazole 100 ml @ 100 mls/hr Q8 IVPB Last administered on 02/10/19 13:34; Admin Dose 100 MLS/HR; Start 02/04/19 at 14:00 Neomycin/ Polymyxin/ Gramicidin (Neosporin Oph Drop) 1 drop QID RIGHT EYE Last administered on 02/10/19 13:34; Admin Dose 1 DROP; Start 02/05/19 at 21:00; Stop 02/12/19 at 20:59 Furosemide (Lasix) 20 mg BID DIURETICS IV Last administered on 02/10/19 06:15; Admin Dose 20 MG; Start 02/06/19 at 18:00 Potassium Chloride 10 meq/ Sodium Chloride 1,005 ml @ 75 mls/hr [id number] IV ; Start 02/10/19 at 23:00 LUIS HARDWICK Feb 10, 2019 13:46
--- NOTE | 2019-02-10 14:20 | CONS ---
Consult Date/Type/Reason Admit Date/Time Jan 21, 2019 at 06:18 Initial Consult Date Requesting Provider: ODELL PACHECO Date/Time of Note DATE: 02/10/19 TIME: 14:19 Subjective NO acute events - pt comfortable - no CP noted - in good fluid status now. Con't resp Rx. ROS: No fever, no chills, no nausea, no vomiting, no diarrhea/constipation No recent weight changes No chest pain, no PND, no orthopnea - mild abd discomfort, improved SOB No dizziness, blurred vision No thirst, no heat or cold intolerance Objective Vitals Vital Signs Date Temp Pulse Resp B/P (MAP) Pulse Ox O2 O2 Flow FiO2 Time Delivery Rate 02/10/19 80 18 96 Nasal 2.0 13:25 Cannula 02/10/19 98.4 131/73 11:42 (92) Intake and Output 02/09/19 02/09/19 02/10/19 1515:00 23:00 07:00 IntakeIntake Total 50 ml 800 ml 680 ml OutputOutput Total 550 ml 800 ml 1250 ml BalanceBalance -500 ml 0 ml -570 ml Exam General: WN/WD/NAD, AOx 3 [place]ic HEENT: Unicetric/atraumatic/EOMI ( follow commands) NECK: JVD elevated, no thyromegaly Lymph: no lymphadenopathy HEART: regular with no S3, II/ systolic murmur at apex LUNGS: Coarse sounds ABD: soft, NT, ND, +BS : Intact Neuro: non focal SKIN: chronic changes EXT: trace edema Results/Medications Result Diagram: 02/06/19 0458 02/09/19 0505 Home Meds Active Scripts Carvedilol* (Carvedilol*) 25 Mg Tablet, 25 MG PO BID for 30 Days, TAB Prov:ODELL PACHECO 01/15/18 Furosemide* (Furosemide*) 20 Mg Tablet, 20 MG PO DAILY for 30 Days, TAB Prov:ODELL PACHECO 01/15/18 Reported Medications Apixaban* (Eliquis*) 5 Mg Tablet, 5 MG PO BID, TAB 11/02/18 Losartan Potassium* (Losartan Potassium*) 100 Mg Tablet, 100 MG PO DAILY, TAB 11/02/18 Nifedipine* (Nifedipine ER*) 60 Mg Tablet.sa, 60 MG PO BID, TAB.SA 11/02/18 Atorvastatin Calcium* (Atorvastatin Calcium*) 20 Mg Tablet, 20 MG PO QHS, #30 TAB 01/07/18 Medications Current Medications Miscellaneous Information (* Miscellaneous Pharmacy Order) DURAMORPH: 3.5MG EPIDU... GIVEN NEURAXIAL XX ; Start 01/21/19 at 10:00 Hydromorphone HCl (Dilaudid) 0.2 mg Q2H PRN IV .PAIN 1-5 Last administered on 02/02/19at 13:39; Admin Dose 0.2 MG; Start 01/21/19 at 12:00 Hydromorphone HCl (Dilaudid) 0.4 mg Q2H PRN IV .PAIN 6-10 Last administered on 02/01/19at 20:18; Admin Dose 0.4 MG; Start 01/21/19 at 12:00 Acetaminophen/ Hydrocodone Bitart ([place] (5/325)) 1 tab Q4H PRN PO .PAIN 4-6 Last administered on 01/25/19at 08:34; Admin Dose 1 TAB; Start 01/21/19 at 12:00 Diphenhydramine HCl (Benadryl) 25 mg Q4H PRN IV .PRURITUS; Start 01/21/19 at 12:00 Nalbuphine HCl (Nubain) 10 mg Q4H PRN IV .PRURITUS; Start 01/21/19 at 12:00 Ondansetron HCl (Zofran Inj) 4 mg Q6H PRN IV .NAUSEA/VOMITING Last administered on 01/22/19at 23:48; Admin Dose 4 MG; Start 01/21/19 at 12:00 Trimethobenzamide HCl (Tigan) 200 mg Q6H PRN IM .NAUSEA/VOMITING; Start 01/21/19 at 12:00 Zolpidem Tartrate (Ambien) 5 mg HS MAY REPEAT X 1 PRN PO .INSOMNIA; Start 01/21/19 at 12:00 Naloxone HCl (Narcan) 0.2 mg Q2M PRN IV .RESP RATE; Start 01/21/19 at 12:00 Hydralazine HCl (Apresoline) 10 mg Q4H PRN IV >150/95 Last administered on 01/24/19at 05:34; Admin Dose 10 MG; Start 01/21/19 at 14:00 Metoprolol Tartrate (Lopressor) 5 mg Q4H PRN IV HR>110 HOld SBP<100 Last administered on 01/25/19 05:11; Admin Dose 5 MG; Start 01/23/19 at 20:30 Levalbuterol (Xopenex Neb) 0.63 mg Q6H RESP THERAPY HHN Last administered on 02/10/19 13:21; Admin Dose 0.63 MG; Start 01/24/19 at 23:30 Acetaminophen (Tylenol Tab) 650 mg Q6H PRN PO MILD PAIN(1-3)OR ELEVATED TEMP Last administered on 01/29/19 23:29; Admin Dose 650 MG; Start 01/29/19 at 23:30 Al Hydrox/Mg Hydrox/Simethicone (Mag-Al Plus) 30 ml Q4H PRN PO GASTROINTESTINAL UPSET Last administered on 01/30/19 18:39; Admin Dose 30 ML; Start 01/29/19 at 23:30 Atenolol (Tenormin) 50 mg BID PO Last administered on 02/10/19 08:09; Admin Dose 50 MG; Start 01/30/19 at 21:00 Fluconazole/ Sodium Chloride 50 ml @ 50 mls/hr Q24H IVPB Last administered on 02/09/19 20:45; Admin Dose 50 MLS/HR; Start 01/30/19 at 20:30 Cefepime HCl 50 ml @ 100 mls/hr Q12 IVPB Last administered on 02/10/19 08:10; Admin Dose 100 MLS/HR; Start 02/04/19 at 14:00 Metronidazole 100 ml @ 100 mls/hr Q8 IVPB Last administered on 02/10/19 13:34; Admin Dose 100 MLS/HR; Start 02/04/19 at 14:00 Neomycin/ Polymyxin/ Gramicidin (Neosporin Oph Drop) 1 drop QID RIGHT EYE Last administered on 02/10/19 13:34; Admin Dose 1 DROP; Start 02/05/19 at 21:00; Stop 02/12/19 at 20:59 Furosemide (Lasix) 20 mg BID DIURETICS IV Last administered on 02/10/19 06:15; Admin Dose 20 MG; Start 02/06/19 at 18:00 Potassium Chloride 10 meq/ Sodium Chloride 1,005 ml @ 75 mls/hr [id number] IV ; Start 02/10/19 at 23:00 Assessment/Plan Hospital Course (Demo Recall) 1. Tachycardia, at this time sinus tachycardia in the setting of significant pain, fevers, status post surgery. NL EF by echo 60-65. ON had onset of AF with RVR - now rate better controlled. In sinus now - rate controlled. HR better now. rate controlled in sinus now. 2. Possible congestive heart failure by chest x-ray with the patient having the onset of acute renal failure at this time. Improved CHF. Better. Keep eu volemic. 3. Hypertension, mildly elevated. BP well optimized nw. Will re-check post am meds. 4. Postoperative status post reversal colostomy - GI team follows,. Con't to recover. On therapy. Surgical team follows. 5. Fevers postop - resolved. 6. Renal failure, acute.-improved now - renal team follows. 7. History of colon carcinoma status post prior colectomy with colostomy. 8. Hypernatremia, improved 9. Hypomagnesemia-improved 10. Leukocytosis. On anti-Bx, better overall. SUSSY ANTHONY MD Feb 10, 2019 14:20
--- NOTE | 2019-02-10 15:24 | PN ---
DATE: 02/10/2019 SUBJECTIVE: The patient does not have any specific complaint. He states that he is waiting for his operation tomorrow. OBJECTIVE: GENERAL: Alert, oriented, lying down in the bed in a semi-sitting position in no acute distress. VITAL SIGNS: Temperature maximum 98.4, heart rate 87 regular, respiration is 18, blood pressure 131/73, saturation 99% on room air. HEART: Regular. LUNGS: Clear. Decreased breathing sound mainly on the right side base. ABDOMEN: Distention is less than few days ago. Bowel sound is present. There are 2 colostomy bags over 2 spots on the abdominal wound. One is at the site of previous colostomy. The other one is in midline. Both contains some fluid which appears to be the color of contrast material that he had a couple of days ago. It appears that the content is draining from the leakage through this anterior abdominal wall defect and accumulating in the bag. EXTREMITIES: Lower extremity: No pitting edema, no calf tenderness. LABORATORY DATA: CBC, there is no hematology done today. The last one was at 02/06/2019. We are going to do one tomorrow. Chemistry, the last one was yesterday, sodium, potassium, BUN and creatinine are within normal limits. We will repeat it tomorrow morning. PTT and PT, we will repeat it tomorrow morning. ASSESSMENT AND PLAN: A 59-year-old gentleman who underwent takedown of colostomy and reversal of the Reagan procedure and repair of the parastomal hernia. Postop, the patient had some complications of severe distention and problem shortness of breath, though the leukocyte count normalized. Eventually, the CT scan and Gastrografin enema revealed presence of leak in the anastomotic site. He saw Dr. Art who is planning to take the patient to the OR tomorrow. The patient is going to n.p.o. after midnight, already is on antibiotic per recommendation of infectious disease. The patient planned to have operation of exploratory laparotomy, possible placement of colostomy or possible replacement of ileostomy and washout and drainage of the abscesses, peritoneal washout. Dictated By: LIAT LOMOIS MD PS/NTS Conf#: [id number] DID#: [id number] CC: JACOB ART MD; ANDREY ZHENG MD;*EndCC* MTDD
[2019-02-10] MEDS: FLUCONAZOLE 100 MG/50 ML (PMX) 50 ML IVPB SCH (21:46)
[2019-02-10] MEDS: ACETAMINOPHEN 325 MG TAB PO PRN (21:54)
[2019-02-10] MEDS ORDERED: POTASSIUM CHLORIDE 10 MEQ in SOD CHLORIDE 0.45% 1,000 ML IV SCH (23:00)
[2019-02-11] VITALS (26 sets, daily range): BP systolic 98–140; BP diastolic 67–88; PULSE 20–114; RESP 18–54
[2019-02-11] MEDS: metroNIDAZOLE 500 MG/NS (PMX) 100 ML IVPB SCH ×5 (00:44→21:53)
[2019-02-11] MEDS: LEVALBUTEROL (NEB) 0.63 MG/3 ML AMP HHN SCH ×4 (02:03→20:00)
[2019-02-11] MEDS: FUROSEMIDE 20 MG INJ IV SCH ×2 (05:16→18:38)
[2019-02-11] MEDS: CEFEPIME 2GM/50 ML (PMX) 50 ML IVPB SCH ×2 (08:50→21:53)
[2019-02-11] MEDS: POTASSIUM CHLORIDE 40 MEQ in SOD CHLORIDE 0.45% 1,000 ML IV SCH ×2 (08:50→21:54)
[2019-02-11] MEDS: ATENOLOL 50 MG TAB PO SCH ×2 (08:51→21:00)
[2019-02-11] MEDS: NEOMYC/POLYMYX/GRAM 10 ML OPH RIGHT EYE SCH ×3 (08:52→21:00)
--- NOTE | 2019-02-11 11:41 | CONS ---
Assessment/Plan Assessment/Plan Hospital Course (Demo Recall) IMPRESSION: 1. Tachycardia c/w AF now improved HR control. NL EF by echo 60-65 2. Possible congestive heart failure by chest x-ray with the patient having the onset of acute renal failure at this time. 3. Hypertension 4. Postoperative status post reversal colostomy. 5. Fevers postop. 6. Renal failure, acute.-improved now 7. History of colon carcinoma status post prior colectomy with colostomy with anastomatic leak by abd CT 8. Hypernatremia, improved 9. Hypomagnesemia-improved 10. Leukocytosis. Recc: -Tele -Continue PO BB -will give dose IVP digoxin to assure good HR control -Pain control -Continue abx's and f/u cx data -Follow volume status closely with ongoing lasix diuresis -Need for repeat surgery with lovenox held in anticipation of repeat surgery to be done today? Consultation Date/Type/Reason Admit Date/Time Jan 21, 2019 at 06:18 Initial Consult Date 01/23/19 Type of Consult Cardiology Reason for Consultation AF Requesting Provider: ODELL PACHECO Date/Time of Note DATE: 02/11/19 TIME: 11:39 Exam/Review of Systems Vital Signs Vitals Vital Signs Date Temp Pulse Resp B/P (MAP) Pulse Ox O2 O2 Flow FiO2 Time Delivery Rate 02/11/19 98.0 85 18 123/82 98 11:20 (96) 02/11/19 Nasal 2.0 08:15 Cannula 02/11/19 28 08:15 Intake and Output 02/10/19 02/10/19 02/11/19 1515:00 23:00 07:00 IntakeIntake Total 150 ml 850 ml 1140 ml OutputOutput Total 1450 ml 2050 ml BalanceBalance 150 ml -600 ml -910 ml Exam Exam Review of Systems: CONSTITUTIONAL: No fevers, chills. PULMONARY: No sob CARDIOVASCULAR: No chest pain/palpitations GASTROINTESTINAL: mild abd pain GENITOURINARY: No hematuria/dysuria. MUSCULOSKELETAL: No myagias/arthalgias. PSYCHIATRIC: The patient denies depression. NEUROLOGIC: No weakness Constitutional: alert Psych: no complaints Head: normocephalic ENMT: mucosa pink and moist Neck: supple, jvd (9 cm water) Respiratory: diminished breath sounds Cardiovascular: irregular rhythm Gastrointestinal: soft, non-tender Musculoskeletal: muscle weakness (generalized) Extremities: edema (none) Neurological: other (No focal deficits) Labs Result Diagram: 02/11/198 02/11/198 Results 24hrs Laboratory Tests Test 02/10/19 14:35 02/11/19 04:58 White Blood Count 5.4 5.9 Red Blood Count 3.19 L 3.30 L Hemoglobin 9.4 L 9.8 L Hematocrit 29.5 L 30.0 L Mean Corpuscular Volume 92.5 90.9 Mean Corpuscular Hemoglobin 29.5 29.7 Mean Corpuscular Hemoglobin Concent 31.9 L 32.7 Red Cell Distribution Width 13.3 13.5 Platelet Count 260 # 267 Mean Platelet Volume 10.5 H 10.6 H Immature Granulocytes % 0.900 H 1.000 H Neutrophils % 79.4 H 75.9 Lymphocytes % 9.6 L 8.6 L Monocytes % 8.2 11.7 H Eosinophils % 1.7 2.5 Basophils % 0.2 0.3 Nucleated Red Blood Cells % 0.0 0.0 Immature Granulocytes # 0.050 H 0.060 H Neutrophils # 4.3 4.5 Lymphocytes # 0.5 L 0.5 L Monocytes # 0.4 0.7 Eosinophils # 0.1 0.2 Basophils # 0.0 0.0 Nucleated Red Blood Cells # 0.0 0.0 Sodium Level 138 139 Potassium Level 3.3 L 3.2 L Chloride Level 100 104 Carbon Dioxide Level 32 H 30 Anion Gap 6 5 Blood Urea Nitrogen 12 12 Creatinine 0.78 0.71 Est Glomerular Filtrat Rate mL/min > 60 > 60 Glucose Level 126 132 Calcium Level 8.2 L 8.7 Prothrombin Time 14.6 Prothrombin Time Ratio 1.1 INR International Normalized Ratio 1.13 Activated Partial Thromboplast Time 35.4 H Medications Medications Current Medications Miscellaneous Information (* Miscellaneous Pharmacy Order) DURAMORPH: 3.5MG EPIDU... GIVEN NEURAXIAL XX ; Start 01/21/19 at 10:00 Hydromorphone HCl (Dilaudid) 0.2 mg Q2H PRN IV .PAIN 1-5 Last administered on 02/02/19at 13:39; Admin Dose 0.2 MG; Start 01/21/19 at 12:00 Hydromorphone HCl (Dilaudid) 0.4 mg Q2H PRN IV .PAIN 6-10 Last administered on 02/01/19 20:18; Admin Dose 0.4 MG; Start 01/21/19 at 12:00 Acetaminophen/ Hydrocodone Bitart ([place] (5/325)) 1 tab Q4H PRN PO .PAIN 4-6 Last administered on 01/25/19 08:34; Admin Dose 1 TAB; Start 01/21/19 at 12:00 Diphenhydramine HCl (Benadryl) 25 mg Q4H PRN IV .PRURITUS; Start 01/21/19 at 12:00 Nalbuphine HCl (Nubain) 10 mg Q4H PRN IV .PRURITUS; Start 01/21/19 at 12:00 Ondansetron HCl (Zofran Inj) 4 mg Q6H PRN IV .NAUSEA/VOMITING Last administered on 01/22/19 23:48; Admin Dose 4 MG; Start 01/21/19 at 12:00 Trimethobenzamide HCl (Tigan) 200 mg Q6H PRN IM .NAUSEA/VOMITING; Start 01/21/19 at 12:00 Zolpidem Tartrate (Ambien) 5 mg HS MAY REPEAT X 1 PRN PO .INSOMNIA; Start 01/21/19 at 12:00 Naloxone HCl (Narcan) 0.2 mg Q2M PRN IV .RESP RATE; Start 01/21/19 at 12:00 Hydralazine HCl (Apresoline) 10 mg Q4H PRN IV >150/95 Last administered on 01/24/19 05:34; Admin Dose 10 MG; Start 01/21/19 at 14:00 Metoprolol Tartrate (Lopressor) 5 mg Q4H PRN IV HR>110 HOld SBP<100 Last administered on 01/25/19 05:11; Admin Dose 5 MG; Start 01/23/19 at 20:30 Levalbuterol (Xopenex Neb) 0.63 mg Q6H RESP THERAPY HHN Last administered on 02/11/19 08:11; Admin Dose 0.63 MG; Start 01/24/19 at 23:30 Acetaminophen (Tylenol Tab) 650 mg Q6H PRN PO MILD PAIN(1-3)OR ELEVATED TEMP Last administered on 02/10/19 21:54; Admin Dose 650 MG; Start 01/29/19 at 23:30 Al Hydrox/Mg Hydrox/Simethicone (Mag-Al Plus) 30 ml Q4H PRN PO GASTROINTESTINAL UPSET Last administered on 01/30/19 18:39; Admin Dose 30 ML; Start 01/29/19 at 23:30 Atenolol (Tenormin) 50 mg BID PO Last administered on 02/11/19 08:51; Admin Dose 50 MG; Start 01/30/19 at 21:00 Fluconazole/ Sodium Chloride 50 ml @ 50 mls/hr Q24H IVPB Last administered on 02/10/19 21:46; Admin Dose 50 MLS/HR; Start 01/30/19 at 20:30 Cefepime HCl 50 ml @ 100 mls/hr Q12 IVPB Last administered on 02/11/19 08:50; Admin Dose 100 MLS/HR; Start 02/04/19 at 14:00 Metronidazole 100 ml @ 100 mls/hr Q8 IVPB Last administered on 02/11/19 05:16; Admin Dose 100 MLS/HR; Start 02/04/19 at 14:00 Neomycin/ Polymyxin/ Gramicidin (Neosporin Oph Drop) 1 drop QID RIGHT EYE Last administered on 02/11/19 08:52; Admin Dose 1 DROP; Start 02/05/19 at 21:00; Stop 02/12/19 at 20:59 Furosemide (Lasix) 20 mg BID DIURETICS IV Last administered on 02/11/19 05:16; Admin Dose 20 MG; Start 02/06/19 at 18:00 Potassium Chloride 40 meq/ Sodium Chloride 1,020 ml @ 75 mls/hr [id number] IV Last administered on 02/11/19 08:50; Admin Dose 75 MLS/HR; Start 02/11/19 at 07:25 EUGENE ANDERSON Feb 11, 2019 11:41
[2019-02-11] MEDS ORDERED: DIGOXIN 500 MCG INJ IV ONE (12:00)
--- NOTE | 2019-02-11 13:24 | PREAC ---
Date/Time of Note Date/Time of Note DATE: 02/11/19 TIME: 13:21 Anesthesia Eval and Record Evaluation Time Pre-Procedure Interview DATE: 02/11/19 TIME: 13:21 Age 59 Sex male NPO: 8 hrs Preoperative diagnosis S/P colectomy, intraabdominal infection Planned procedure Exploratory Laparotomy Past Medical History Past Medical History: Includes Cardio: HTN, Dyslipidemia, CHF Endo: Diabetes Renal: JULIETA GI: Morbid obesity Surgery & Anesthesia Issues No known issue Meds Anticoagulation: No Beta Maurizio within 24 hr: No Reason Beta Maurizio not given: Pt. not on B-Maurizio Active Scripts Carvedilol* (Carvedilol*) 25 Mg Tablet, 25 MG PO BID for 30 Days, TAB Prov:ODELL PACHECO 01/15/18 Furosemide* (Furosemide*) 20 Mg Tablet, 20 MG PO DAILY for 30 Days, TAB Prov:ODELL PACHECO 01/15/18 Reported Medications Apixaban* (Eliquis*) 5 Mg Tablet, 5 MG PO BID, TAB 11/02/18 Losartan Potassium* (Losartan Potassium*) 100 Mg Tablet, 100 MG PO DAILY, TAB 11/02/18 Nifedipine* (Nifedipine ER*) 60 Mg Tablet.sa, 60 MG PO BID, TAB.SA 11/02/18 Atorvastatin Calcium* (Atorvastatin Calcium*) 20 Mg Tablet, 20 MG PO QHS, #30 TAB 01/07/18 Current Medications Miscellaneous Information (* Miscellaneous Pharmacy Order) DURAMORPH: 3.5MG EPIDU... GIVEN NEURAXIAL XX ; Start 01/21/19 at 10:00 Hydromorphone HCl (Dilaudid) 0.2 mg Q2H PRN IV .PAIN 1-5 Last administered on 02/02/19at 13:39; Admin Dose 0.2 MG; Start 01/21/19 at 12:00 Hydromorphone HCl (Dilaudid) 0.4 mg Q2H PRN IV .PAIN 6-10 Last administered on 02/01/19at 20:18; Admin Dose 0.4 MG; Start 01/21/19 at 12:00 Acetaminophen/ Hydrocodone Bitart ([place] (5/325)) 1 tab Q4H PRN PO .PAIN 4-6 Last administered on 01/25/19at 08:34; Admin Dose 1 TAB; Start 01/21/19 at 12:00 Diphenhydramine HCl (Benadryl) 25 mg Q4H PRN IV .PRURITUS; Start 01/21/19 at 12:00 Nalbuphine HCl (Nubain) 10 mg Q4H PRN IV .PRURITUS; Start 01/21/19 at 12:00 Ondansetron HCl (Zofran Inj) 4 mg Q6H PRN IV .NAUSEA/VOMITING Last administered on 01/22/19at 23:48; Admin Dose 4 MG; Start 01/21/19 at 12:00 Trimethobenzamide HCl (Tigan) 200 mg Q6H PRN IM .NAUSEA/VOMITING; Start 01/21/19 at 12:00 Zolpidem Tartrate (Ambien) 5 mg HS MAY REPEAT X 1 PRN PO .INSOMNIA; Start 01/21/19 at 12:00 Naloxone HCl (Narcan) 0.2 mg Q2M PRN IV .RESP RATE; Start 01/21/19 at 12:00 Hydralazine HCl (Apresoline) 10 mg Q4H PRN IV >150/95 Last administered on 01/24/19 05:34; Admin Dose 10 MG; Start 01/21/19 at 14:00 Metoprolol Tartrate (Lopressor) 5 mg Q4H PRN IV HR>110 HOld SBP<100 Last administered on 01/25/19 05:11; Admin Dose 5 MG; Start 01/23/19 at 20:30 Levalbuterol (Xopenex Neb) 0.63 mg Q6H RESP THERAPY HHN Last administered on 02/11/19 08:11; Admin Dose 0.63 MG; Start 01/24/19 at 23:30 Acetaminophen (Tylenol Tab) 650 mg Q6H PRN PO MILD PAIN(1-3)OR ELEVATED TEMP Last administered on 02/10/19 21:54; Admin Dose 650 MG; Start 01/29/19 at 23:30 Al Hydrox/Mg Hydrox/Simethicone (Mag-Al Plus) 30 ml Q4H PRN PO GASTROINTESTINAL UPSET Last administered on 01/30/19 18:39; Admin Dose 30 ML; Start 01/29/19 at 23:30 Atenolol (Tenormin) 50 mg BID PO Last administered on 02/11/19 08:51; Admin Dose 50 MG; Start 01/30/19 at 21:00 Fluconazole/ Sodium Chloride 50 ml @ 50 mls/hr Q24H IVPB Last administered on 02/10/19 21:46; Admin Dose 50 MLS/HR; Start 01/30/19 at 20:30 Cefepime HCl 50 ml @ 100 mls/hr Q12 IVPB Last administered on 02/11/19 08:50; Admin Dose 100 MLS/HR; Start 02/04/19 at 14:00 Metronidazole 100 ml @ 100 mls/hr Q8 IVPB Last administered on 02/11/19 05:16; Admin Dose 100 MLS/HR; Start 02/04/19 at 14:00 Neomycin/ Polymyxin/ Gramicidin (Neosporin Oph Drop) 1 drop QID RIGHT EYE Last administered on 02/11/19 08:52; Admin Dose 1 DROP; Start 02/05/19 at 21:00; Stop 02/12/19 at 20:59 Furosemide (Lasix) 20 mg BID DIURETICS IV Last administered on 02/11/19 05:16; Admin Dose 20 MG; Start 02/06/19 at 18:00 Potassium Chloride 40 meq/ Sodium Chloride 1,020 ml @ 75 mls/hr [id number] IV Last administered on 02/11/19 08:50; Admin Dose 75 MLS/HR; Start 02/11/19 at 07:25 Meds reviewed: Yes Allergies Coded Allergies: No Known Allergy (Unverified , 01/30/19) Allergies Reviewed: Yes Labs/Studies Labs Reviewed: Reviewed by anesthesiologist Result Diagram: 02/11/19 0458 02/11/19 0458 Laboratory Tests 02/11/19 04:58 test: N/A Studies: ECG Pre-procedure Exam Last vitals Vital Signs Date Temp Pulse Resp B/P (MAP) Pulse Ox O2 O2 Flow FiO2 Time Delivery Rate 02/11/19 87 12:01 02/11/19 98.0 18 123/82 98 11:20 (96) 02/11/19 Nasal 2.0 08:15 Cannula 02/11/19 08:15 Airway: Adequate mouth opening, Adequate thyromental dist Mallampati: Mallampati II Teeth: Normal Lung: Normal Heart: Normal ASA Physical Status ASA physical status: 3 Emergency: None Planned Anesthetic General/MAC: ETT Planned Pain Management Sub-arachniod narcotics, Parenteral pain med Pre-operative Attestations Prior to commencing anesthesia and surgery, the patient was re-evaluated, there was verification of: *The patient's identity *The results of appropriate recent lab work and preoperative vital signs *The above evaluation not changing prior to induction *Anesthetic plan, risk benefits, alternative and complications discussed with patient/family; questions answered; patient/family understands, accepts and wishes to proceed. AMY RAUSCH MD Feb 11, 2019 13:24
[2019-02-11] MEDS ORDERED: BUPIVACAINE 0.5% (SDV) 30 ML INJ ONE (13:26)
[2019-02-11] MEDS ORDERED: MIDAZOLAM 1 MG/ML 2 ML INJ ONE (13:30)
[2019-02-11] MEDS ORDERED: morphine SULFATE/PF (10 MG/10 ML) INJ ONE (13:45)
--- NOTE | 2019-02-11 13:47 | HPN ---
Date/Time of Note Date/Time of Note DATE: 02/11/19 TIME: 13:47 Interval H&P Admission Note Pt. seen H&P reviewed: No system changes Ann FERNANDEZ Feb 11, 2019 13:47
[2019-02-11] MEDS ORDERED: PHENYLephrine (100 MCG/ML) 10ML SYG ONE (13:56)
[2019-02-11] MEDS ORDERED: PHENYLephrine 10 MG INJ ONE ×2 (13:58→15:58)
--- NOTE | 2019-02-11 15:49 | CONS ---
Assessment/Plan Assessment/Plan Hospital Course (Demo Recall) assessment/impression # sepsis, respiratory - sepsis due to complicated intra-abdominal infection and pneumonia - pleural effusion, exudative process, parapneumonic effusion LDH 1601 protein 3.2, no malignancy on cytology - s/p R sided thoracentesis on 02/05/2019 - VIJAY # GI, onc - s/p open Reagan reversal and colorectal low pelvic anastomosis, segmental partial colectomy, and open incarcerated incisional and parastomal hernia repairs with mesh by Dr. Art on 01/21/2019 - follow up CT on 02/04/2019 did not identify definite point of leak--> anastomotic leak was identified on gastograffin - s/p CT guided drainage of abscess in LLQ on 02/01/2019 - Abdominal wound culture 01/30/19 and abscess culture 01/31/19 grew pseudomonas, joseline albicans and glabrata - S/p colostomy reversal - Stage III sigmoid colon cancer, status post prior colectomy/colostomy and chemo in 2018 # renal, cardiovascular - Acute kidney injury on chronic kidney disease - Acute on chronic diastolic CHF - Atrial fibrillation. - Hx hypertension - Hx left upper extremity DVT - Superficial thrombus in R cephalic vein in the forearm and in L cephalic vein in the antecubital fossa as visualized on NOY 02/05/2019 # other conditions - R conjunctivitis recommendations: - pending results: cultures of bacteria, fungi and AFB of R pleural effusion from 02/05/2019 - continue cefepime and metronidazole (02/04/2019-), fluconazole (01/30/2019-). Pt previously took meropenem (01/30/2019-02/03/2019) - continue neomysin eye drop for 7 days (02/05/2019-) - management d/w Pt's CATHERINE Mccabe Consultation Date/Type/Reason Admit Date/Time Jan 21, 2019 at 06:18 Initial Consult Date 01/30/19 Type of Consult ID Requesting Provider: ODELL PACHECO Date/Time of Note DATE: 02/11/19 TIME: 15:46 24 HR Interval Summary Free Text/Dictation Pt was in OR for ex lap Exam/Review of Systems Exam Vitals Vital Signs Date Temp Pulse Resp B/P (MAP) Pulse Ox O2 O2 Flow FiO2 Time Delivery Rate 02/11/19 87 12:01 02/11/19 98.0 18 123/82 98 11:20 (96) 02/11/19 Nasal 2.0 08:15 Cannula 02/11/19 28 08:15 Intake and Output 02/10/19 02/10/19 02/11/19 1515:00 23:00 07:00 IntakeIntake Total 150 ml 850 ml 1140 ml OutputOutput Total 1450 ml 2050 ml BalanceBalance 150 ml -600 ml -910 ml Exam Pt was in OR for ex lap Results Result Diagram: 02/11/19 0458 02/11/19 0458 Results 24hrs Laboratory Tests Test 02/11/19 04:58 White Blood Count 5.9 Red Blood Count 3.30 L Hemoglobin 9.8 L Hematocrit 30.0 L Mean Corpuscular Volume 90.9 Mean Corpuscular Hemoglobin 29.7 Mean Corpuscular Hemoglobin Concent 32.7 Red Cell Distribution Width 13.5 Platelet Count 267 Mean Platelet Volume 10.6 H Immature Granulocytes % 1.000 H Neutrophils % 75.9 Lymphocytes % 8.6 L Monocytes % 11.7 H Eosinophils % 2.5 Basophils % 0.3 Nucleated Red Blood Cells % 0.0 Immature Granulocytes # 0.060 H Neutrophils # 4.5 Lymphocytes # 0.5 L Monocytes # 0.7 Eosinophils # 0.2 Basophils # 0.0 Nucleated Red Blood Cells # 0.0 Prothrombin Time 14.6 Prothrombin Time Ratio 1.1 INR International Normalized Ratio 1.13 Activated Partial Thromboplast Time 35.4 H Sodium Level 139 Potassium Level 3.2 L Chloride Level 104 Carbon Dioxide Level 30 Anion Gap 5 Blood Urea Nitrogen 12 Creatinine 0.71 Est Glomerular Filtrat Rate mL/min > 60 Glucose Level 132 Calcium Level 8.7 Medications Medication Current Medications Miscellaneous Information (* Miscellaneous Pharmacy Order) DURAMORPH: 3.5MG EPIDU... GIVEN NEURAXIAL XX ; Start 01/21/19 at 10:00 Hydromorphone HCl (Dilaudid) 0.2 mg Q2H PRN IV .PAIN 1-5 Last administered on 02/02/19at 13:39; Admin Dose 0.2 MG; Start 01/21/19 at 12:00 Hydromorphone HCl (Dilaudid) 0.4 mg Q2H PRN IV .PAIN 6-10 Last administered on 02/01/19 20:18; Admin Dose 0.4 MG; Start 01/21/19 at 12:00 Acetaminophen/ Hydrocodone Bitart ([place] (5/325)) 1 tab Q4H PRN PO .PAIN 4-6 Last administered on 01/25/19 08:34; Admin Dose 1 TAB; Start 01/21/19 at 12:00 Diphenhydramine HCl (Benadryl) 25 mg Q4H PRN IV .PRURITUS; Start 01/21/19 at 12:00 Nalbuphine HCl (Nubain) 10 mg Q4H PRN IV .PRURITUS; Start 01/21/19 at 12:00 Ondansetron HCl (Zofran Inj) 4 mg Q6H PRN IV .NAUSEA/VOMITING Last administered on 01/22/19 23:48; Admin Dose 4 MG; Start 01/21/19 at 12:00 Trimethobenzamide HCl (Tigan) 200 mg Q6H PRN IM .NAUSEA/VOMITING; Start 01/21/19 at 12:00 Zolpidem Tartrate (Ambien) 5 mg HS MAY REPEAT X 1 PRN PO .INSOMNIA; Start 01/21/19 at 12:00 Naloxone HCl (Narcan) 0.2 mg Q2M PRN IV .RESP RATE; Start 01/21/19 at 12:00 Hydralazine HCl (Apresoline) 10 mg Q4H PRN IV >150/95 Last administered on 01/24/19 05:34; Admin Dose 10 MG; Start 01/21/19 at 14:00 Metoprolol Tartrate (Lopressor) 5 mg Q4H PRN IV HR>110 HOld SBP<100 Last administered on 01/25/19 05:11; Admin Dose 5 MG; Start 01/23/19 at 20:30 Levalbuterol (Xopenex Neb) 0.63 mg Q6H RESP THERAPY HHN Last administered on 02/11/19 08:11; Admin Dose 0.63 MG; Start 01/24/19 at 23:30 Acetaminophen (Tylenol Tab) 650 mg Q6H PRN PO MILD PAIN(1-3)OR ELEVATED TEMP Last administered on 02/10/19 21:54; Admin Dose 650 MG; Start 01/29/19 at 23:30 Al Hydrox/Mg Hydrox/Simethicone (Mag-Al Plus) 30 ml Q4H PRN PO GASTROINTESTINAL UPSET Last administered on 01/30/19 18:39; Admin Dose 30 ML; Start 01/29/19 at 23:30 Atenolol (Tenormin) 50 mg BID PO Last administered on 02/11/19 08:51; Admin Dose 50 MG; Start 01/30/19 at 21:00 Fluconazole/ Sodium Chloride 50 ml @ 50 mls/hr Q24H IVPB Last administered on 02/10/19 21:46; Admin Dose 50 MLS/HR; Start 01/30/19 at 20:30 Cefepime HCl 50 ml @ 100 mls/hr Q12 IVPB Last administered on 02/11/19 08:50; Admin Dose 100 MLS/HR; Start 02/04/19 at 14:00 Metronidazole 100 ml @ 100 mls/hr Q8 IVPB Last administered on 02/11/19 05:16; Admin Dose 100 MLS/HR; Start 02/04/19 at 14:00 Neomycin/ Polymyxin/ Gramicidin (Neosporin Oph Drop) 1 drop QID RIGHT EYE Last administered on 02/11/19 08:52; Admin Dose 1 DROP; Start 02/05/19 at 21:00; Stop 02/12/19 at 20:59 Furosemide (Lasix) 20 mg BID DIURETICS IV Last administered on 02/11/19 05:16; Admin Dose 20 MG; Start 02/06/19 at 18:00 Potassium Chloride 40 meq/ Sodium Chloride 1,020 ml @ 75 mls/hr [id number] IV Last administered on 02/11/19 08:50; Admin Dose 75 MLS/HR; Start 02/11/19 at 07:25 MERCED ESCUDERO M.D. Feb 11, 2019 15:49
[2019-02-11] MEDS ORDERED: ROCURONIUM 50 MG INJ ONE (15:55)
[2019-02-11] MEDS ORDERED: GLYCOPYRROLATE 0.4 MG INJ ONE (15:55)
[2019-02-11] MEDS ORDERED: CIPROFLOXACIN 400MG/D5W 200 ML ONE (15:55)
[2019-02-11] MEDS ORDERED: metroNIDAZOLE 500 MG/NS (PMX) 100 ML IVPB ONE (15:55)
[2019-02-11] MEDS ORDERED: LIDOCAINE 2% (SDV) 5 ML INJ ONE (15:55)
[2019-02-11] MEDS ORDERED: NEOSTIGMINE 3 MG/3 ML SYRINGE ONE (15:55)
[2019-02-11] MEDS ORDERED: ETOMIDATE 20 MG INJ ONE (15:55)
[2019-02-11] MEDS ORDERED: ONDANSETRON 4 MG INJ ONE (16:03)
[2019-02-11] MEDS ORDERED: SOD CHLORIDE 0.9% 1,000 ML IV SCH (16:04)
--- NOTE | 2019-02-11 16:17 | OPR ---
Date/Time of Note Date/Time of Note DATE: 02/11/19 TIME: 16:10 Operative Report Procedure Date: Feb 11, 2019 Preoperative Diagnosis anastomotic leak and abscess Postoperative Diagnosis same Operation/Procedure Performed 1. exploratory laparotomy 2. washout of abdominal abscess 3. percutaneous placement of RUDDY #19 drain in left lower abdomen 4. percutaneous placement of ayan #24 drain in the right lower abdomen 5. diverting loop ileostomy 6. lysis of adhesions Surgeon see signature line Channel Rebuilder none Anesthesia Type: general Estimated Blood Loss: 50 - 100 ml's Transfusion none Specimen none Grafts/Implants none Complications none Pt Condition Post Procedure: stable Indications This is a 59-year-old male with alcoholic cirrhosis with anastomotic leak from a Oliva's reversal. He had a delayed presentation with abscess. He is brought to the OR for exploratory laparotomy with diverting loop ileostomy. Risks alt ernatives benefits and percent were discussed the patient. Patient expressed understanding and consents to the operation. Procedure Description Patient is taken to the OR and prepped and draped in usual sterile fashion. Prior midline incisional abbey were removed. Midline incision was then opened up. Initial exploration showed minimal amount of abscess and a hostile abdomen with already advanced adhesion formation and some hardened formation of adhesions. Thorough washout of the abdomen was performed. Lysis of adhesions was performed carefully and meticulously using sharp dissection with Metzenbaum scissors. Decision was made to perform a diverting loop ileostomy considering the CT findings of an anastomotic leak. Further lysis of adhesions allowed small finding of a pus pocket which was drained. Further dissection into the pelvis was not feasible due to the hardened adhesion formation. Using the prior colostomy site a #19 RUDDY drain was placed in the left lower abdomen. Additi onally a #24 Ayan drain was placed in the right lower abdomen. Further lysis of adhesions was performed to allow mobilization of mid ileal small bowel to allow for loop ileostomy. Circular disc of tissue was resected off the right abdomen. This was taken down to the fascia. The fascia was then cauterized and divided. The muscle was split and the posterior sheath was also divided this allowed easy access of 2 fingers. Barclay was used to mobilize the loop ileostomy freely without any tension. This was then pulled through the loop ileostomy site. Midline incision was then closed with a #1 loop PDS from superior inferior and inferior superior. The wound was irrigated with irrigation to clean out any contamination. The skin was closed with skin staple s with placement of Telfa between the abbey to allow drainage. Local anesthesia was injected to the midline incision. The right ileostomy was matured by placing a red rubber catheter posterior to the loop ileostomy. The red rubber catheter was secured in place with interrupted 2-0 Prolene. The ileostomy was then matured using interrupted 3-0 chromic. The drains were secured with 2-0 nylon. The prior colostomy site was closed with a running 2-0 Vicryl around the drain. The ileostomy bag and dry dressings were applied. Ann FERNANDEZ Feb 11, 2019 16:17
--- NOTE | 2019-02-11 16:26 | PAC ---
Date/Time of Note Date/Time of Note DATE: 02/11/19 TIME: 16:26 Post-Anesthesia Notes Post-Anesthesia Note Last documented vital signs Vital Signs Date Temp Pulse Resp B/P (MAP) Pulse Ox O2 O2 Flow FiO2 Time Delivery Rate 02/11/19 87 12:01 02/11/19 98.0 18 123/82 98 11:20 (96) 02/11/19 Nasal 2.0 08:15 Cannula 02/11/19 28 08:15 Activity: WNL Respiratory function: WNL Cardiovascular function: WNL Mental status: Baseline Pain reasonably controlled: Yes Hydration appropriate: Yes Nausea/Vomiting absent: Yes Comments BP:134/67, P:104, Spo2:100%, T:98,8 AMY RAUSCH MD Feb 11, 2019 16:26
[2019-02-11] MEDS ORDERED: FENTAnyl 50 MCG/ML VIAL IV PRN (16:30)
[2019-02-11] MEDS ORDERED: ONDANSETRON 4 MG INJ IV PRN (16:30)
[2019-02-11] MEDS ORDERED: NALOXONE (0.4 MG/ML) INJ IV PRN (16:30)
[2019-02-11] MEDS ORDERED: METOCLOPRAMIDE 10 MG INJ IV PRN (16:30)
[2019-02-11] MEDS ORDERED: HYDROmorphONE 1 MG/5 ML IV SYRINGE IV PRN ×2 (16:30)
[2019-02-11] MEDS ORDERED: morphine 2 MG INJ IV PRN (16:30)
[2019-02-11] MEDS ORDERED: HYDROCODONE/APAP (5/325) TAB PO PRN (16:30)
[2019-02-11] MEDS ORDERED: MEPERIDINE 25 MG INJ IV PRN (16:30)
[2019-02-11] MEDS ORDERED: DIPHENHYDRAMINE 50 MG INJ IV PRN (16:30)
[2019-02-11] MEDS: CIPROFLOXACIN 400MG/D5W 200 ML IVPB SCH (17:21)
[2019-02-11] MEDS: ACCU-CHEK XX SCH ×2 (17:31→21:00)
--- NOTE | 2019-02-11 18:43 | PN ---
Date/Time of Note Date/Time of Note DATE: 02/11/19 TIME: 18:20 Assessment/Plan VTE Prophylaxis Risk score (from Ns)>0 risk: 5 SCD applied (from [facility] [place]): Yes SCD contraindicated: other Pharmacological prophylaxis: other Pharm contraindication: other Lines/Catheters [facility] C[facility]from [facility] Mid Line Central line still needed: Yes Urinary Cath still in place: Yes Reason Cath still needed: urinary retention Assessment/Plan Assessment/Plan - SP exploratory laparotomy; anastomotic leak and abscess - ICU MONITORING - recommendations per sx - VS per protocol - Hypokalemia - will order stat BMP - fu -Increased leukocytosis patient is currently on Zosyn and Flagyl, CT of the abdomen and pelvis revealed moderate ascites, questionable peritonitis or abscess increased right lower lobe infiltrate. Dr. Vázquez is following in infection disease consultation. -Possible surgical wound infection, obtain wound cx. -Right lower lobe infiltrate -S/p open Reagan reversal and colorectal low pelvic anastomosis, segmental partial colectomy, and open incarcerated incisional and parastomal hernia repairs with mesh by Dr. Art on 01/21/2019. Continue [place] and Dilaudid as needed for pain and Zofran as needed for nausea. -Stage III sigmoid colon cancer, status post surgery and chemo in 2018. -Acute kidney injury on chronic kidney disease, monitor urine output BUN and creatinine. Dr. Stuart is following in nephrology consultation. -Acute on chronic diastolic CHF -Atrial fibrillation. -Obstructive sleep apnea -History of hypertension -History of left upper extremity DVT Total Critical care time spent is [address] Fox Result Diagram: 02/11/19 0458 02/11/19 0458 Results 24hrs Laboratory Tests Test 02/11/19 04:58 02/11/19 17:33 White Blood Count 5.9 Red Blood Count 3.30 L Hemoglobin 9.8 L Hematocrit 30.0 L Mean Corpuscular Volume 90.9 Mean Corpuscular Hemoglobin 29.7 Mean Corpuscular Hemoglobin Concent 32.7 Red Cell Distribution Width 13.5 Platelet Count 267 Mean Platelet Volume 10.6 H Immature Granulocytes % 1.000 H Neutrophils % 75.9 Lymphocytes % 8.6 L Monocytes % 11.7 H Eosinophils % 2.5 Basophils % 0.3 Nucleated Red Blood Cells % 0.0 Immature Granulocytes # 0.060 H Neutrophils # 4.5 Lymphocytes # 0.5 L Monocytes # 0.7 Eosinophils # 0.2 Basophils # 0.0 Nucleated Red Blood Cells # 0.0 Prothrombin Time 14.6 Prothrombin Time Ratio 1.1 INR International Normalized Ratio 1.13 Activated Partial Thromboplast Time 35.4 H Sodium Level 139 Potassium Level 3.2 L Chloride Level 104 Carbon Dioxide Level 30 Anion Gap 5 Blood Urea Nitrogen 12 Creatinine 0.71 Est Glomerular Filtrat Rate mL/min > 60 Glucose Level 132 Calcium Level 8.7 Bedside Glucose 129 Subjective 24 Hr Interval Summary Free Text/Dictation POST OP today . Got transferred from recovery. Family at bed side - all Qs answered. dw staff Subjective hx not possible: pt non-verbal Constitutional: requiring IVF, requiring O2 Eyes: no complaints ENT: no complaints Respiratory: no complaints Gastrointestinal: pain, nausea Genitourinary: no complaints Musculoskeletal: no complaints Neurologic: no complaints Psychological: no complaints Immunologic: no complaints Exam/Review of Systems Exam Vitals Vital Signs Date Temp Pulse Resp B/P (MAP) Pulse Ox O2 O2 Flow FiO2 Time Delivery Rate 02/11/19 86 24 106/75 98 Nasal 3.0 17:44 (85) Cannula 02/11/19 98.0 16:54 02/11/19 28 08:15 Intake and Output 02/10/19 02/10/19 02/11/19 1515:00 23:00 07:00 IntakeIntake Total 150 ml 850 ml 1140 ml OutputOutput Total 1450 ml 2050 ml BalanceBalance 150 ml -600 ml -910 ml Constitutional: alert, well developed, obese Psych: nl mood/affect Eyes: nl lids, nl sclera Neck: non-tender Respiratory: diminished breath sounds Cardiovascular: nl pulses (Dressing ), other (s1s2) Gastrointestinal: other (surgical abdomen- dressing noted- dry/intact. RLQ- colostomy noted) Musculoskeletal: nl extremities to inspection Results Results 24hrs Laboratory Tests Test 02/11/19 04:58 02/11/19 17:33 White Blood Count 5.9 Red Blood Count 3.30 L Hemoglobin 9.8 L Hematocrit 30.0 L Mean Corpuscular Volume 90.9 Mean Corpuscular Hemoglobin 29.7 Mean Corpuscular Hemoglobin Concent 32.7 Red Cell Distribution Width 13.5 Platelet Count 267 Mean Platelet Volume 10.6 H Immature Granulocytes % 1.000 H Neutrophils % 75.9 Lymphocytes % 8.6 L Monocytes % 11.7 H Eosinophils % 2.5 Basophils % 0.3 Nucleated Red Blood Cells % 0.0 Immature Granulocytes # 0.060 H Neutrophils # 4.5 Lymphocytes # 0.5 L Monocytes # 0.7 Eosinophils # 0.2 Basophils # 0.0 Nucleated Red Blood Cells # 0.0 Prothrombin Time 14.6 Prothrombin Time Ratio 1.1 INR International Normalized Ratio 1.13 Activated Partial Thromboplast Time 35.4 H Sodium Level 139 Potassium Level 3.2 L Chloride Level 104 Carbon Dioxide Level 30 Anion Gap 5 Blood Urea Nitrogen 12 Creatinine 0.71 Est Glomerular Filtrat Rate mL/min > 60 Glucose Level 132 Calcium Level 8.7 Bedside Glucose 129 Medications Medication Current Medications Miscellaneous Information (* Miscellaneous Pharmacy Order) DURAMORPH: 3.5MG EPIDU... GIVEN NEURAXIAL XX ; Start 01/21/19 at 10:00 Hydromorphone HCl (Dilaudid) 0.2 mg Q2H PRN IV .PAIN 1-5 Last administered on 02/02/19at 13:39; Admin Dose 0.2 MG; Start 01/21/19 at 12:00 Hydromorphone HCl (Dilaudid) 0.4 mg Q2H PRN IV .PAIN 6-10 Last administered on 02/01/19at 20:18; Admin Dose 0.4 MG; Start 01/21/19 at 12:00 Acetaminophen/ Hydrocodone Bitart ([place] (5/325)) 1 tab Q4H PRN PO .PAIN 4-6 Last administered on 01/25/19at 08:34; Admin Dose 1 TAB; Start 01/21/19 at 12:00 Diphenhydramine HCl (Benadryl) 25 mg Q4H PRN IV .PRURITUS; Start 01/21/19 at 12:00 Nalbuphine HCl (Nubain) 10 mg Q4H PRN IV .PRURITUS; Start 01/21/19 at 12:00 Ondansetron HCl (Zofran Inj) 4 mg Q6H PRN IV .NAUSEA/VOMITING Last administered on 01/22/19at 23:48; Admin Dose 4 MG; Start 01/21/19 at 12:00 Trimethobenzamide HCl (Tigan) 200 mg Q6H PRN IM .NAUSEA/VOMITING; Start 01/21/19 at 12:00 Zolpidem Tartrate (Ambien) 5 mg HS MAY REPEAT X 1 PRN PO .INSOMNIA; Start 01/21/19 at 12:00 Naloxone HCl (Narcan) 0.2 mg Q2M PRN IV .RESP RATE; Start 01/21/19 at 12:00 Hydralazine HCl (Apresoline) 10 mg Q4H PRN IV >150/95 Last administered on 01/24/19 05:34; Admin Dose 10 MG; Start 01/21/19 at 14:00 Metoprolol Tartrate (Lopressor) 5 mg Q4H PRN IV HR>110 HOld SBP<100 Last administered on 01/25/19 05:11; Admin Dose 5 MG; Start 01/23/19 at 20:30 Levalbuterol (Xopenex Neb) 0.63 mg Q6H RESP THERAPY HHN Last administered on 02/11/19 08:11; Admin Dose 0.63 MG; Start 01/24/19 at 23:30 Acetaminophen (Tylenol Tab) 650 mg Q6H PRN PO MILD PAIN(1-3)OR ELEVATED TEMP Last administered on 02/10/19 21:54; Admin Dose 650 MG; Start 01/29/19 at 23:30 Al Hydrox/Mg Hydrox/Simethicone (Mag-Al Plus) 30 ml Q4H PRN PO GASTROINTESTINAL UPSET Last administered on 01/30/19 18:39; Admin Dose 30 ML; Start 01/29/19 at 23:30 Atenolol (Tenormin) 50 mg BID PO Last administered on 02/11/19 08:51; Admin Dose 50 MG; Start 01/30/19 at 21:00 Fluconazole/ Sodium Chloride 50 ml @ 50 mls/hr Q24H IVPB Last administered on 02/10/19 21:46; Admin Dose 50 MLS/HR; Start 01/30/19 at 20:30 Cefepime HCl 50 ml @ 100 mls/hr Q12 IVPB Last administered on 02/11/19 08:50; Admin Dose 100 MLS/HR; Start 02/04/19 at 14:00 Metronidazole 100 ml @ 100 mls/hr Q8 IVPB Last administered on 4/29/19at 05:16; Admin Dose 100 MLS/HR; Start 02/04/19 at 14:00 Neomycin/ Polymyxin/ Gramicidin (Neosporin Oph Drop) 1 drop QID RIGHT EYE Last administered on 02/11/19at 08:52; Admin Dose 1 DROP; Start 02/05/19 at 21:00; Stop 02/12/19 at 20:59 Furosemide (Lasix) 20 mg BID DIURETICS IV Last administered on 02/11/19 05:16; Admin Dose 20 MG; Start 02/06/19 at 18:00 Potassium Chloride 40 meq/ Sodium Chloride 1,020 ml @ 75 mls/hr [id number] IV Last administered on 02/11/19 08:50; Admin Dose 75 MLS/HR; Start 02/11/19 at 07:25 Metronidazole 100 ml @ 100 mls/hr Q8H IVPB Last administered on 02/11/19 17:21; Admin Dose 100 MLS/HR; Start 02/11/19 at 16:30; Stop 02/12/19 at 16:29 Ciprofloxacin/ Dextrose 200 ml @ 200 mls/hr Q12H IVPB Last administered on 02/11/19 17:21; Admin Dose 200 MLS/HR; Start 02/11/19 at 16:30; Stop 02/12/19 at 16:29 Morphine Sulfate (morphine) 2 mg Q2H PRN IV PAIN LEVEL 6-10; Start 02/11/19 at 16:30 Acetaminophen/ Hydrocodone Bitart ([place] (5/325)) 1 tab Q6H PRN PO PAIN LEVEL 6-10; Start 02/11/19 at 16:30 Sodium Chloride 1,000 ml @ 100 mls/hr Q10H IV Last administered on 02/11/19 17:23; Admin Dose 100 MLS/HR; Start 02/11/19 at 16:04 Diagnostic Test (Pha) (Accu-Chek) 1 ea Q4 XX Last administered on 02/11/19at 17:31; Admin Dose 1 EA; Start 02/11/19 at 17:00 Total Parenteral Nutrition 1,000 ml @ 0 mls/hr Q0M IV ; Start 02/11/19 at 16:08; Status UNV Fat Emulsion Intravenous 250 ml @ 10.4 mls/hr DAILY IV ; Start 02/12/19 at 09:00; Status UNV Miscellaneous Information (* Miscellaneous Pharmacy Order) 1 ea ONCE ONCE XX ; Start 02/11/19 at 16:30; Stop 02/11/19 at 16:31; Status UNV Hydromorphone HCl (Dilaudid) 0.2 mg PACU PRN IV MILD PAIN 1-3; Start 02/11/19 at 16:30; Stop 02/11/19 at 21:00 Hydromorphone HCl (Dilaudid) 0.4 mg PACU PRN IV MOD PAIN 4-6; Start 02/11/19 at 16:30; Stop 02/11/19 at 21:00 Fentanyl (Sublimaze) 25 mcg PACU ORDER PRN IV MILD PAIN 1-3; Start 02/11/19 at 16:30; Stop 02/11/19 at 21:00 Ondansetron HCl (Zofran Inj) 4 mg PACU ORDER PRN IV NAUSEA/VOMITING Last administered on 02/11/19at 17:48; Admin Dose 4 MG; Start 02/11/19 at 16:30; Stop 02/11/19 at 21:00 Metoclopramide HCl (Reglan) 10 mg PACU ORDER PRN IV NAUSEA/VOMITING; Start 02/11/19 at 16:30; Stop 02/11/19 at 21:00 Meperidine HCl (Demerol) 25 mg PACU ORDER PRN IV .RIGORS; Start 02/11/19 at 16:30; Stop 02/11/19 at 21:00 Diphenhydramine HCl (Benadryl) 25 mg PACU ORDER PRN IV .PRURITUS; Start 02/11/19 at 16:30; Stop 02/11/19 at 21:00 Miscellaneous Information (* Miscellaneous Pharmacy Order) DURAMORPH: 0.2 MG SPI... GIVEN NEURAXIAL XX ; Start 02/11/19 at 16:30; Status UNV LUIS HARDWICK Feb 11, 2019 18:32
[2019-02-11] MEDS: FLUCONAZOLE 100 MG/50 ML (PMX) 50 ML IVPB SCH (21:53)
[2019-02-12] VITALS (24 sets, daily range): BP systolic 94–115; BP diastolic 59–91; PULSE 96–171; RESP 20–33
[2019-02-12] MEDS: metroNIDAZOLE 500 MG/NS (PMX) 100 ML IVPB SCH ×4 (00:30→23:52)
[2019-02-12] MEDS: ACCU-CHEK XX SCH ×6 (01:15→20:23)
[2019-02-12] MEDS: LEVALBUTEROL (NEB) 0.63 MG/3 ML AMP HHN SCH ×4 (02:00→20:00)
--- NOTE | 2019-02-12 04:35 | PN ---
Date/Time of Note Date/Time of Note DATE: 02/12/19 TIME: 04:28 Assessment/Plan VTE Prophylaxis Risk score (from Ns)>0 risk: 8 SCD applied (from [facility] [place]): Yes SCD contraindicated: other Pharmacological prophylaxis: other Pharm contraindication: other Lines/Catheters IV Catheter Type (from [facility] Mid Line Central line still needed: Yes Urinary Cath still in place: Yes Reason Cath still needed: urinary retention Assessment/Plan Assessment/Plan - Possible sepsis- hypotensive, tachycardia, leukocytosis stat - victor cultures - cxr - Lactic Acid - urine c/s - NS bolus 250 x1 - SP exploratory laparotomy; anastomotic leak and abscess - ICU MONITORING - recommendations per sx - VS per protocol - Hypokalemia- RESOLVED -Increased leukocytosis patient is currently on Zosyn and Flagyl, CT of the abdomen and pelvis revealed moderate ascites, questionable peritonitis or abscess increased right lower lobe infiltrate. Dr. Vázquez is following in infection disease consultation. -Possible surgical wound infection, obtain wound cx. -Right lower lobe infiltrate -S/p open Reagan reversal and colorectal low pelvic anastomosis, segmental partial colectomy, and open incarcerated incisional and parastomal hernia repairs with mesh by Dr. Art on 01/21/2019. Continue [place] and Dilaudid as needed for pain and Zofran as needed for nausea. -Stage III sigmoid colon cancer, status post surgery and chemo in 2018. -Acute kidney injury on chronic kidney disease, monitor urine output BUN and creatinine. Dr. Stuart is following in nephrology consultation. -Acute on chronic diastolic CHF -Atrial fibrillation. -Obstructive sleep apnea -History of hypertension -History of left upper extremity DVT Total Critical care time spent is 45 mins. Mason Fox Result Diagram: 02/11/19182802/11/191828 Results 24hrs Laboratory Tests Test 02/11/19 04:58 02/11/19 17:33 02/11/19 18:29 02/11/19 21:59 White Blood Count 5.9 11.6 #H Red Blood Count 3.30 L 3.38 L Hemoglobin 9.8 L 10.0 L Hematocrit 30.0 L 31.5 L Mean Corpuscular 90.9 93.2 Volume Mean Corpuscular 29.7 29.6 Hemoglobin Mean Corpuscular 32.7 31.7 L Hemoglobin Concent Red Cell 13.5 13.4 Distribution Width Platelet Count 267 286 Mean Platelet Volume 10.6 H 10.3 Immature 1.000 H 0.900 H Granulocytes % Neutrophils % 75.9 85.7 H Lymphocytes % 8.6 L 4.9 L Monocytes % 11.7 H 7.3 Eosinophils % 2.5 0.9 Basophils % 0.3 0.3 Nucleated Red Blood 0.0 0.0 Cells % Immature 0.060 H 0.110 H Granulocytes # Neutrophils # 4.5 10.0 H Lymphocytes # 0.5 L 0.6 L Monocytes # 0.7 0.9 Eosinophils # 0.2 0.1 Basophils # 0.0 0.0 Nucleated Red Blood 0.0 0.0 Cells # Prothrombin Time 14.6 Prothrombin Time 1.1 Ratio INR International 1.13 Normalized Ratio Activated 35.4 H Partial Thromboplast Time Sodium Level 139 137 Potassium Level 3.2 L 3.8 Chloride Level 104 103 Carbon Dioxide Level 30 29 Anion Gap 5 5 Blood Urea Nitrogen 12 12 Creatinine 0.71 0.83 Est Glomerular > 60 > 60 Filtrat Rate mL/min Glucose Level 132 166 Calcium Level 8.7 8.4 Bedside Glucose 129 130 Phosphorus Level 4.1 Magnesium Level 1.8 Total Bilirubin 0.2 Direct Bilirubin 0.00 Indirect Bilirubin 0.2 Aspartate Amino 32 Transf (AST/SGOT) Alanine 27 Aminotransferase (AL T/SGPT) Alkaline Phosphatase 95 Total Protein 5.6 L Albumin 2.5 L Globulin 3.10 Albumin/Globulin 0.80 Ratio Prealbumin 10.7 L Triglycerides Level 146 Test 02/12/19 01:12 Bedside Glucose 134 Subjective 24 Hr Interval Summary Free Text/Dictation Patient is tachy; wbc elevated, hypotension - will do panculture; CXR - ID/ CARDIO FOLLOWS Constitutional: requiring IVF, requiring O2 ENT: no complaints Respiratory: no complaints Cardiovascular: no complaints Gastrointestinal: pain Neurologic: no complaints Exam/Review of Systems Exam Vitals Vital Signs Date Temp Pulse Resp B/P (MAP) Pulse Ox O2 O2 Flow FiO2 Time Delivery Rate 02/12/19 121 24 98/63 (75) 96 Nasal 2.0 03:00 Cannula 02/12/19 98.5 00:00 02/11/19 28 08:15 Intake and Output 02/11/19 02/11/19 02/12/19 1515:00 23:00 07:00 IntakeIntake Total 1000 ml 750 ml 300 ml OutputOutput Total 1150 ml 1165 ml 160 ml BalanceBalance -150 ml -415 ml 140 ml Constitutional: alert, obese Eyes: nl lids, nl sclera ENMT: nl external ears & nose Respiratory: diminished breath sounds Cardiovascular: nl pulses, other (s1s2) Gastrointestinal: other (surgical abdomen) Extremities: edema Neurological: other (alert; responsive) Lymph: nontender Results Results 24hrs Laboratory Tests Test 02/11/19 04:58 02/11/19 17:33 02/11/19 18:29 02/11/19 21:59 White Blood Count 5.9 11.6 #H Red Blood Count 3.30 L 3.38 L Hemoglobin 9.8 L 10.0 L Hematocrit 30.0 L 31.5 L Mean Corpuscular 90.9 93.2 Volume Mean Corpuscular 29.7 29.6 Hemoglobin Mean Corpuscular 32.7 31.7 L Hemoglobin Concent Red Cell 13.5 13.4 Distribution Width Platelet Count 267 286 Mean Platelet Volume 10.6 H 10.3 Immature 1.000 H 0.900 H Granulocytes % Neutrophils % 75.9 85.7 H Lymphocytes % 8.6 L 4.9 L Monocytes % 11.7 H 7.3 Eosinophils % 2.5 0.9 Basophils % 0.3 0.3 Nucleated Red Blood 0.0 0.0 Cells % Immature 0.060 H 0.110 H Granulocytes # Neutrophils # 4.5 10.0 H Lymphocytes # 0.5 L 0.6 L Monocytes # 0.7 0.9 Eosinophils # 0.2 0.1 Basophils # 0.0 0.0 Nucleated Red Blood 0.0 0.0 Cells # Prothrombin Time 14.6 Prothrombin Time 1.1 Ratio INR International 1.13 Normalized Ratio Activated 35.4 H Partial Thromboplast Time Sodium Level 139 137 Potassium Level 3.2 L 3.8 Chloride Level 104 103 Carbon Dioxide Level 30 29 Anion Gap 5 5 Blood Urea Nitrogen 12 12 Creatinine 0.71 0.83 Est Glomerular > 60 > 60 Filtrat Rate mL/min Glucose Level 132 166 Calcium Level 8.7 8.4 Bedside Glucose 129 130 Phosphorus Level 4.1 Magnesium Level 1.8 Total Bilirubin 0.2 Direct Bilirubin 0.00 Indirect Bilirubin 0.2 Aspartate Amino 32 Transf (AST/SGOT) Alanine 27 Aminotransferase (AL T/SGPT) Alkaline Phosphatase 95 Total Protein 5.6 L Albumin 2.5 L Globulin 3.10 Albumin/Globulin 0.80 Ratio Prealbumin 10.7 L Triglycerides Level 146 Test 02/12/19 01:12 Bedside Glucose 134 Medications Medication Current Medications Miscellaneous Information (* Miscellaneous Pharmacy Order) DURAMORPH: 3.5MG EPIDU... GIVEN NEURAXIAL XX ; Start 01/21/19 at 10:00 Hydromorphone HCl (Dilaudid) 0.2 mg Q2H PRN IV .PAIN 1-5 Last administered on 02/02/19at 13:39; Admin Dose 0.2 MG; Start 01/21/19 at 12:00 Hydromorphone HCl (Dilaudid) 0.4 mg Q2H PRN IV .PAIN 6-10 Last administered on 02/01/19at 20:18; Admin Dose 0.4 MG; Start 01/21/19 at 12:00 Acetaminophen/ Hydrocodone Bitart ([place] (5/325)) 1 tab Q4H PRN PO .PAIN 4-6 Last administered on 01/25/19at 08:34; Admin Dose 1 TAB; Start 01/21/19 at 12:00 Diphenhydramine HCl (Benadryl) 25 mg Q4H PRN IV .PRURITUS; Start 01/21/19 at 12:00 Nalbuphine HCl (Nubain) 10 mg Q4H PRN IV .PRURITUS; Start 01/21/19 at 12:00 Ondansetron HCl (Zofran Inj) 4 mg Q6H PRN IV .NAUSEA/VOMITING Last administered on 01/22/19at 23:48; Admin Dose 4 MG; Start 01/21/19 at 12:00 Trimethobenzamide HCl (Tigan) 200 mg Q6H PRN IM .NAUSEA/VOMITING; Start 01/21/19 at 12:00 Zolpidem Tartrate (Ambien) 5 mg HS MAY REPEAT X 1 PRN PO .INSOMNIA; Start at 12:00 Naloxone HCl (Narcan) 0.2 mg Q2M PRN IV .RESP RATE; Start 01/21/19 at 12:00 Hydralazine HCl (Apresoline) 10 mg Q4H PRN IV >150/95 Last administered on 01/24/19 05:34; Admin Dose 10 MG; Start 01/21/19 at 14:00 Metoprolol Tartrate (Lopressor) 5 mg Q4H PRN IV HR>110 HOld SBP<100 Last a dministered on 01/25/19 05:11; Admin Dose 5 MG; Start 01/23/19 at 20:30 Levalbuterol (Xopenex Neb) 0.63 mg Q6H RESP THERAPY HHN Last administered on 02/11/19 08:11; Admin Dose 0.63 MG; Start 01/24/19 at 23:30 Acetaminophen (Tylenol Tab) 650 mg Q6H PRN PO MILD PAIN(1-3)OR ELEVATED TEMP Last administered on 02/10/19 21:54; Admin Dose 650 MG; Start 01/29/19 at 23:30 Al Hydrox/Mg Hydrox/Simethicone (Mag-Al Plus) 30 ml Q4H PRN PO GASTROINTESTINAL UPSET Last administered on 01/30/19 18:39; Admin Dose 30 ML; Start 01/29/19 at 23:30 Atenolol (Tenormin) 50 mg BID PO Last administered on 02/11/19 08:51; Admin Dose 50 MG; Start 01/30/19 at 21:00 Fluconazole/ Sodium Chloride 50 ml @ 50 mls/hr Q24H IVPB Last administered on 02/11/19 21:53; Admin Dose 50 MLS/HR; Start 01/30/19 at 20:30 Cefepime HCl 50 ml @ 100 mls/hr Q12 IVPB Last administered on 02/11/19 21:53; Admin Dose 100 MLS/HR; Start 02/04/19 at 14:00 Metronidazole 100 ml @ 100 mls/hr Q8 IVPB Last administered on 02/11/19 21 :53; Admin Dose 100 MLS/HR; Start 02/04/19 at 14:00 Neomycin/ Polymyxin/ Gramicidin (Neosporin Oph Drop) 1 drop QID RIGHT EYE Last administered on 02/11/19 08:52; Admin Dose 1 DROP; Start 02/05/19 at 21:00; Stop 02/12/19 at 20:59 Furosemide (Lasix) 20 mg BID DIURETICS IV Last administered on 4/29/19at 18:38; Admin Dose 20 MG; Start 02/06/19 at 18:00 Potassium Chloride 40 meq/ Sodium Chloride 1,020 ml @ 75 mls/hr [id number] IV Last administered on 02/11/19at 21:54; Admin Dose 75 MLS/HR; Start 02/11/19 at 07:25 Ciprofloxacin/ Dextrose 200 ml @ 200 mls/hr Q12H IVPB Last administered on 02/11/19at 17:21; Admin Dose 200 MLS/HR; Start 02/11/19 at 16:30; Stop 02/12/19 at 16:29 Morphine Sulfate (morphine) 2 mg Q2H PRN IV PAIN LEVEL 6-10; Start 02/11/19 at 16:30 Acetaminophen/ Hydrocodone Bitart ([place] (5/325)) 1 tab Q6H PRN PO PAIN LEVEL 6-10; Start 02/11/19 at 16:30 Diagnostic Test (Pha) (Accu-Chek) 1 ea Q4 XX Last administered on 02/12/19at 01:15; Admin Dose 1 EA; Start 02/11/19 at 17:00 Total Parenteral Nutrition 1,000 ml @ 0 mls/hr Q0M IV ; Start 02/11/19 at 16:08; Status UNV Fat Emulsion Intravenous 250 ml @ 10.4 mls/hr DAILY IV ; Start 02/12/19 at 09:00; Status UNV Miscellaneous Information (* Miscellaneous Pharmacy Order) 1 ea ONCE ONCE XX ; Start 02/11/19 at 16:30; Stop 02/11/19 at 16:31; Status UNV Miscellaneous Information (* Miscellaneous Pharmacy Order) DURAMORPH: 0.2 MG SPI... GIVEN NEURAXIAL XX ; Start 02/11/19 at 16:30 LUIS HARDWICK Feb 12, 2019 04:35
[2019-02-12] MEDS ORDERED: SOD CHLORIDE 0.9% 500 ML IV ONE ×2 (05:00→07:30)
[2019-02-12] MEDS ORDERED: ACETAMINOPHEN 1000MG/100ML IV 100 ML IVPB PRN (05:00)
[2019-02-12] MEDS: CIPROFLOXACIN 400MG/D5W 200 ML IVPB SCH (05:07)
[2019-02-12] MEDS: FUROSEMIDE 20 MG INJ IV SCH ×2 (05:08→18:15)
[2019-02-12] MEDS: ATENOLOL 50 MG TAB PO SCH ×2 (08:17→21:00)
[2019-02-12] MEDS: NEOMYC/POLYMYX/GRAM 10 ML OPH RIGHT EYE SCH ×3 (10:29→16:16)
[2019-02-12] MEDS: CEFEPIME 2GM/50 ML (PMX) 50 ML IVPB SCH ×2 (10:29→23:06)
[2019-02-12] MEDS: POTASSIUM CHLORIDE 40 MEQ in SOD CHLORIDE 0.45% 1,000 ML IV SCH (10:35)
--- NOTE | 2019-02-12 12:35 | CONS ---
Assessment/Plan Assessment/Plan Hospital Course (Demo Recall) assessment/impression # sepsis, respiratory - sepsis due to complicated intra-abdominal infection and pneumonia - pleural effusion, exudative process, parapneumonic effusion LDH 1601 protein 3.2, no e/o malignancy on cytology - s/p R sided thoracentesis on 02/05/2019 - VIJAY # GI, onc - s/p ex lap, washout of abdominal abscess, CLEVE, diverting loop ileostomy on 02/11/2019 - s/p open Reagan reversal and colorectal low pelvic anastomosis, segmental partial colectomy, and open incarcerated incisional and parastomal hernia repairs with mesh by Dr. Art on 01/21/2019 - thrush - follow up CT on 02/04/2019 did not identify definite point of leak--> anastomotic leak was identified on gastograffin - s/p CT guided drainage of abscess in LLQ on 02/01/2019 - Abdominal wound culture 01/30/19 and abscess culture 01/31/19 grew pseudomonas, joseline albicans and glabrata - S/p colostomy reversal - Stage III sigmoid colon cancer, status post prior colectomy/colostomy and chemo in 2017 # renal, cardiovascular - Acute kidney injury on chronic kidney disease - Acute on chronic diastolic CHF - Atrial fibrillation. - Hx hypertension - Hx left upper extremity DVT - Superficial thrombus in R cephalic vein in the forearm and in L cephalic vein in the antecubital fossa as visualized on NOY 02/05/2019 # other conditions - R conjunctivitis, resolved recommendations: - pending results: cultures of bacteria, fungi and AFB of R pleural effusion from 02/05/2019 - ordered: fluid from [facility] #1 for cultures of aerobic and anaerobic bacteria and fungi - continue cefepime and metronidazole (02/04/2019-), fluconazole (01/30/2019-). Pt previously took meropenem (01/30/2019-02/03/2019) - increase the dose of flucon to 200 mg daily because he developed thrush - start nystatin oral cleanse q6hrs (02/12/2019-) - continue neomysin eye drop for 7 days (02/05/2019-) - management d/w Pt, his son, and RN Fransisco the critical are time I took to care for this Pt today was from 1200 to 1230 Consultation Date/Type/Reason Admit Date/Time Jan 21, 2019 at 06:18 Initial Consult Date 01/30/19 Type of Consult ID Requesting Provider: ODELL PACHECO Date/Time of Note DATE: 02/12/19 TIME: 12:29 24 HR Interval Summary Constitutional: requiring O2, other (in lot of pain) Detailed Summary Eyes: no complaints ENT: no complaints Respiratory: sputum Cardiovascular: no complaints Gastrointestinal: pain, other (+ileostomy); No nausea Genitourinary: other (+FC) Musculoskeletal: no complaints Skin: no complaints Neurologic: no complaints Exam/Review of Systems Exam Vitals Vital Signs Date Temp Pulse Resp B/P (MAP) Pulse Ox O2 O2 Flow FiO2 Time Delivery Rate 02/12/19 107 12:00 02/12/19 22 94/69 (77) 96 09:00 02/12/19 Nasal 2.0 08:40 Cannula 02/12/19 100.0 06:26 02/11/19 28 08:15 Intake and Output 02/11/19 02/11/19 02/12/19 1515:00 23:00 07:00 IntakeIntake Total 1000 ml 750 ml 1000 ml OutputOutput Total 1150 ml 1165 ml 545 ml BalanceBalance -150 ml -415 ml 455 ml Constitutional: frail Psych: no complaints, nl mood/affect Head: normocephalic, atraumatic Eyes: nl conjunctiva, nl lids, nl sclera ENMT: nl external ears & nose, nl nasal mucosa & septum, mucosa pink and moist Neck: other (not swollen) Respiratory: clear to auscultation, normal air movement, congested cough Cardiovascular: regular rate and rhythm, nl pulses Gastrointestinal: soft, distended, surgical scars, tender, other (+midline wound, ileostomy, 2 JPs and 1 accordion bag) Genitourinary - Male: other (FC) Musculoskeletal: nl extremities to inspection Extremities: No edema Neurological: lethargic Skin: nl turgor; No rash or lesions Results Result Diagram: 02/12/19 0449 02/12/199 Results 24hrs Laboratory Tests Test 02/11/19 17:33 02/11/19 18:29 02/11/19 21:59 02/12/19 01:12 Bedside Glucose 129 130 134 White Blood Count 11.6 #H Red Blood Count 3.38 L Hemoglobin 10.0 L Hematocrit 31.5 L Mean Corpuscular 93.2 Volume Mean Corpuscular 29.6 Hemoglobin Mean Corpuscular 31.7 L Hemoglobin Concent Red Cell 13.4 Distribution Width Platelet Count 286 Mean Platelet Volume 10.3 Immature 0.900 H Granulocytes % Neutrophils % 85.7 H Lymphocytes % 4.9 L Monocytes % 7.3 Eosinophils % 0.9 Basophils % 0.3 Nucleated Red Blood 0.0 Cells % Immature 0.110 H Granulocytes # Neutrophils # 10.0 H Lymphocytes # 0.6 L Monocytes # 0.9 Eosinophils # 0.1 Basophils # 0.0 Nucleated Red Blood 0.0 Cells # Sodium Level 137 Potassium Level 3.8 Chloride Level 103 Carbon Dioxide Level 29 Anion Gap 5 Blood Urea Nitrogen 12 Creatinine 0.83 Est Glomerular > 60 Filtrat Rate mL/min Glucose Level 166 Calcium Level 8.4 Phosphorus Level 4.1 Magnesium Level 1.8 Total Bilirubin 0.2 Direct Bilirubin 0.00 Indirect Bilirubin 0.2 Aspartate Amino 32 Transf (AST/SGOT) Alanine 27 Aminotransferase (AL T/SGPT) Alkaline Phosphatase 95 Total Protein 5.6 L Albumin 2.5 L Globulin 3.10 Albumin/Globulin 0.80 Ratio Prealbumin 10.7 L Triglycerides Level 146 Test 02/12/19 04:49 02/12/19 04:50 02/12/19 05:00 02/12/19 08:15 White Blood Count 11.7 H Red Blood Count 3.60 L Hemoglobin 10.7 L Hematocrit 33.7 L Mean Corpuscular 93.6 Volume Mean Corpuscular 29.7 Hemoglobin Mean Corpuscular 31.8 L Hemoglobin Concent Red Cell 13.7 Distribution Width Platelet Count 310 Mean Platelet Volume 10.6 H Immature 0.800 H Granulocytes % Neutrophils % 86.6 H Lymphocytes % 3.9 L Monocytes % 8.1 Eosinophils % 0.3 Basophils % 0.3 Nucleated Red Blood 0.0 Cells % Immature 0.090 H Granulocytes # Neutrophils # 10.1 H Lymphocytes # 0.5 L Monocytes # 0.9 Eosinophils # 0.0 Basophils # 0.0 Nucleated Red Blood 0.0 Cells # Sodium Level 139 Potassium Level 4.4 Chloride Level 103 Carbon Dioxide Level 30 Anion Gap 6 Blood Urea Nitrogen 15 Creatinine 0.97 Est Glomerular > 60 Filtrat Rate mL/min Glucose Level 125 # Calcium Level 8.6 Phosphorus Level 4.0 Magnesium Level 1.8 Total Bilirubin 0.3 Direct Bilirubin 0.00 Indirect Bilirubin 0.3 Aspartate Amino 25 Transf (AST/SGOT) Alanine 25 Aminotransferase (AL T/SGPT) Alkaline Phosphatase 90 Total Protein 5.7 L Albumin 2.5 L Globulin 3.20 Albumin/Globulin 0.78 Ratio Bedside Glucose 128 146 Urine Color JACQUELINE Urine Clarity CLEAR Urine pH 6.0 Urine Specific 1.020 [place] Urine Ketones TRACE A Urine Nitrite NEGATIVE Urine Bilirubin NEGATIVE Urine Urobilinogen NEGATIVE Urine Leukocyte TRACE A Esterase Urine Microscopic 1 RBC Urine Microscopic 4 WBC Urine Mucus FEW A Urine Hemoglobin NEGATIVE Urine Glucose NEGATIVE Urine Total Protein 1+ H Lactic Acid Level 1.6 Medications Medication Current Medications Miscellaneous Information (* Miscellaneous Pharmacy Order) DURAMORPH: 3.5MG EPIDU... GIVEN NEURAXIAL XX ; Start 01/21/19 at 10:00 Hydromorphone HCl (Dilaudid) 0.2 mg Q2H PRN IV .PAIN 1-5 Last administered on 02/02/19at 13:39; Admin Dose 0.2 MG; Start 01/21/19 at 12:00 Hydromorphone HCl (Dilaudid) 0.4 mg Q2H PRN IV .PAIN 6-10 Last administered on 02/01/19at 20:18; Admin Dose 0.4 MG; Start 01/21/19 at 12:00 Acetaminophen/ Hydrocodone Bitart ([place] (5/325)) 1 tab Q4H PRN PO .PAIN 4-6 Last administered on 01/25/19at 08:34; Admin Dose 1 TAB; Start 01/21/19 at 12:00 Diphenhydramine HCl (Benadryl) 25 mg Q4H PRN IV .PRURITUS; Start 01/21/19 at 12:00 Nalbuphine HCl (Nubain) 10 mg Q4H PRN IV .PRURITUS; Start 01/21/19 at 12:00 Ondansetron HCl (Zofran Inj) 4 mg Q6H PRN IV .NAUSEA/VOMITING Last administered on 01/22/19at 23:48; Admin Dose 4 MG; Start 01/21/19 at 12:00 Trimethobenzamide HCl (Tigan) 200 mg Q6H PRN IM .NAUSEA/VOMITING; Start 01/21/19 at 12:00 Zolpidem Tartrate (Ambien) 5 mg HS MAY REPEAT X 1 PRN PO .INSOMNIA; Start 01/21/19 at 12:00 Naloxone HCl (Narcan) 0.2 mg Q2M PRN IV .RESP RATE; Start 01/21/19 at 12:00 Hydralazine HCl (Apresoline) 10 mg Q4H PRN IV >150/95 Last administered on 01/24/19 05:34; Admin Dose 10 MG; Start 01/21/19 at 14:00 Metoprolol Tartrate (Lopressor) 5 mg Q4H PRN IV HR>110 HOld SBP<100 Last administered on 01/25/19 05:11; Admin Dose 5 MG; Start 01/23/19 at 20:30 Levalbuterol (Xopenex Neb) 0.63 mg Q6H RESP THERAPY HHN Last administered on 02/12/19 08:37; Admin Dose 0.63 MG; Start 01/24/19 at 23:30 Acetaminophen (Tylenol Tab) 650 mg Q6H PRN PO MILD PAIN(1-3)OR ELEVATED TEMP Last administered on 02/10/19 21:54; Admin Dose 650 MG; Start 01/29/19 at 23:30 Al Hydrox/Mg Hydrox/Simethicone (Mag-Al Plus) 30 ml Q4H PRN PO GASTROINTESTINAL UPSET Last administered on 01/30/19 18:39; Admin Dose 30 ML; Start 01/29/19 at 23:30 Atenolol (Tenormin) 50 mg BID PO Last administered on 02/11/19 08:51; Admin Dose 50 MG; Start 01/30/19 at 21:00 Cefepime HCl 50 ml @ 100 mls/hr Q12 IVPB Last administered on 02/12/19 10:29; Admin Dose 100 MLS/HR; Start 02/04/19 at 14:00 Metronidazole 100 ml @ 100 mls/hr Q8 IVPB Last administered on 02/12/19 05:07; Admin Dose 100 MLS/HR; Start 02/04/19 at 14:00 Neomycin/ Polymyxin/ Gramicidin (Neosporin Oph Drop) 1 drop QID RIGHT EYE Last administered on 02/12/19 10:29; Admin Dose 1 DROP; Start 02/05/19 at 21:00; Stop 02/12/19 at 20:59 Furosemide (Lasix) 20 mg BID DIURETICS IV Last administered on 02/12/19at 05:08; Admin Dose 20 MG; Start 02/06/19 at 18:00 Potassium Chloride 40 meq/ Sodium Chloride 1,020 ml @ 75 mls/hr [id number] IV Last administered on 02/11/19at 21:54; Admin Dose 75 MLS/HR; Start 02/11/19 at 07:25 Ciprofloxacin/ Dextrose 200 ml @ 200 mls/hr Q12H IVPB Last administered on 02/12/19at 05:07; Admin Dose 200 MLS/HR; Start 02/11/19 at 16:30; Stop 02/12/19 at 16:29 Morphine Sulfate (morphine) 2 mg Q2H PRN IV PAIN LEVEL 6-10; Start 02/11/19 at 16:30 Acetaminophen/ Hydrocodone Bitart ([place] (5/325)) 1 tab Q6H PRN PO PAIN LEVEL 6-10; Start 02/11/19 at 16:30 Diagnostic Test (Pha) (Accu-Chek) 1 ea Q4 XX Last administered on 02/12/19at 05:07; Admin Dose 1 EA; Start 02/11/19 at 17:00 Total Parenteral Nutrition 1,000 ml @ 0 mls/hr Q0M IV ; Start 02/11/19 at 16:08; Status UNV Fat Emulsion Intravenous 250 ml @ 10.4 mls/hr DAILY IV ; Start 02/12/19 at 09:00; Status UNV Miscellaneous Information (* Miscellaneous Pharmacy Order) 1 ea ONCE ONCE XX ; Start 02/11/19 at 16:30; Stop 02/11/19 at 16:31; Status UNV Miscellaneous Information (* Miscellaneous Pharmacy Order) DURAMORPH: 0.2 MG SPI... GIVEN NEURAXIAL XX ; Start 02/11/19 at 16:30 Acetaminophen 100 ml @ 400 mls/hr Q6H PRN IVPB FEVER Last administered on 02/12/19at 05:41; Admin Dose 400 MLS/HR; Start 02/12/19 at 05:00; Stop 02/13/19 at 04:59 Fluconazole 100 ml @ 100 mls/hr Q24H IVPB ; Start 02/12/19 at 12:30; Status UNV Nystatin (Nystatin Susp) 5 ml QID PO ; Start 02/12/19 at 13:00; Status UNV MERCED ESCUDERO M.D. Feb 12, 2019 12:35
--- NOTE | 2019-02-12 13:12 | CONS ---
Consult Date/Type/Reason Admit Date/Time Jan 21, 2019 at 06:18 Initial Consult Date Requesting Provider: ODELL PACHECO Date/Time of Note DATE: 02/12/19 TIME: 13:09 Subjective NO acute events - pt now in ICU post colostomy and ex-lap - a. fib since Mid January - now tachy - not a good candidate for CV as he can not be anti-coagulated post op - will allow for now as BP is moistly stable. When OK to fully anti- coagulate, will consider CV as pt was in sinus recency by EKG in the chart. ROS: No fever, no chills, no nausea, no vomiting, no diarrhea/constipation No recent weight changes No chest pain, no PND, no orthopnea - mild abd discomfort + stoma output No dizziness, blurred vision No thirst, no heat or cold intolerance Objective Vitals Vital Signs Date Temp Pulse Resp B/P (MAP) Pulse Ox O2 O2 Flow FiO2 Time Delivery Rate 02/12/19 113 27 100/70 94 Nasal 2.0 12:00 (80) Cannula 02/12/19 100.0 06:26 02/11/19 28 08:15 Intake and Output 02/11/19 02/11/19 02/12/19 1515:00 23:00 07:00 IntakeIntake Total 1000 ml 750 ml 1000 ml OutputOutput Total 1150 ml 1165 ml 545 ml BalanceBalance -150 ml -415 ml 455 ml Exam General: WN/WD/NAD, AOx 3 HEENT: Unicetric/atraumatic/EOMI ( follow commands) NECK: JVD elevated, no thyromegaly Lymph: no lymphadenopathy HEART: irregular with no S3, II/ systolic murmur at apex, PMI L LUNGS: Coarse sounds ABD: soft, NT, ND, +BS - distended, + stoma : Intact Neuro: non focal SKIN: chronic changes EXT: trace edema Results/Medications Result Diagram: 02/12/1944802/12/19448 Results 24 hrs Laboratory Tests Test 02/11/19 17:33 02/11/19 18:29 02/11/19 21:59 02/12/19 01:12 Bedside Glucose 129 130 134 White Blood Count 11.6 #H Red Blood Count 3.38 L Hemoglobin 10.0 L Hematocrit 31.5 L Mean Corpuscular 93.2 Volume Mean Corpuscular 29.6 Hemoglobin Mean Corpuscular 31.7 L Hemoglobin Concent Red Cell 13.4 Distribution Width Platelet Count 286 Mean Platelet Volume 10.3 Immature 0.900 H Granulocytes % Neutrophils % 85.7 H Lymphocytes % 4.9 L Monocytes % 7.3 Eosinophils % 0.9 Basophils % 0.3 Nucleated Red Blood 0.0 Cells % Immature 0.110 H Granulocytes # Neutrophils # 10.0 H Lymphocytes # 0.6 L Monocytes # 0.9 Eosinophils # 0.1 Basophils # 0.0 Nucleated Red Blood 0.0 Cells # Sodium Level 137 Potassium Level 3.8 Chloride Level 103 Carbon Dioxide Level 29 Anion Gap 5 Blood Urea Nitrogen 12 Creatinine 0.83 Est Glomerular > 60 Filtrat Rate mL/min Glucose Level 166 Calcium Level 8.4 Phosphorus Level 4.1 Magnesium Level 1.8 Total Bilirubin 0.2 Direct Bilirubin 0.00 Indirect Bilirubin 0.2 Aspartate Amino 32 Transf (AST/SGOT) Alanine 27 Aminotransferase (AL T/SGPT) Alkaline Phosphatase 95 Total Protein 5.6 L Albumin 2.5 L Globulin 3.10 Albumin/Globulin 0.80 Ratio Prealbumin 10.7 L Triglycerides Level 146 Test 02/12/19 04:49 02/12/19 04:50 02/12/19 05:00 02/12/19 08:15 White Blood Count 11.7 H Red Blood Count 3.60 L Hemoglobin 10.7 L Hematocrit 33.7 L Mean Corpuscular 93.6 Volume Mean Corpuscular 29.7 Hemoglobin Mean Corpuscular 31.8 L Hemoglobin Concent Red Cell 13.7 Distribution Width Platelet Count 310 Mean Platelet Volume 10.6 H Immature 0.800 H Granulocytes % Neutrophils % 86.6 H Lymphocytes % 3.9 L Monocytes % 8.1 Eosinophils % 0.3 Basophils % 0.3 Nucleated Red Blood 0.0 Cells % Immature 0.090 H Granulocytes # Neutrophils # 10.1 H Lymphocytes # 0.5 L Monocytes # 0.9 Eosinophils # 0.0 Basophils # 0.0 Nucleated Red Blood 0.0 Cells # Sodium Level 139 Potassium Level 4.4 Chloride Level 103 Carbon Dioxide Level 30 Anion Gap 6 Blood Urea Nitrogen 15 Creatinine 0.97 Est Glomerular > 60 Filtrat Rate mL/min Glucose Level 125 # Calcium Level 8.6 Phosphorus Level 4.0 Magnesium Level 1.8 Total Bilirubin 0.3 Direct Bilirubin 0.00 Indirect Bilirubin 0.3 Aspartate Amino 25 Transf (AST/SGOT) Alanine 25 Aminotransferase (AL T/SGPT) Alkaline Phosphatase 90 Total Protein 5.7 L Albumin 2.5 L Globulin 3.20 Albumin/Globulin 0.78 Ratio Bedside Glucose 128 146 Urine Color JACQUELINE Urine Clarity CLEAR Urine pH 6.0 Urine Specific 1.020 [place] Urine Ketones TRACE A Urine Nitrite NEGATIVE Urine Bilirubin NEGATIVE Urine Urobilinogen NEGATIVE Urine Leukocyte TRACE A Esterase Urine Microscopic 1 RBC Urine Microscopic 4 WBC Urine Mucus FEW A Urine Hemoglobin NEGATIVE Urine Glucose NEGATIVE Urine Total Protein 1+ H Lactic Acid Level 1.6 Home Meds Active Scripts Carvedilol* (Carvedilol*) 25 Mg Tablet, 25 MG PO BID for 30 Days, TAB Prov:ODELL PACHECO 01/15/18 Furosemide* (Furosemide*) 20 Mg Tablet, 20 MG PO DAILY for 30 Days, TAB Prov:ODELL PACHECO 01/15/18 Reported Medications Apixaban* (Eliquis*) 5 Mg Tablet, 5 MG PO BID, TAB 11/02/18 Losartan Potassium* (Losartan Potassium*) 100 Mg Tablet, 100 MG PO DAILY, TAB 11/02/18 Nifedipine* (Nifedipine ER*) 60 Mg Tablet.sa, 60 MG PO BID, TAB.SA 11/02/18 Atorvastatin Calcium* (Atorvastatin Calcium*) 20 Mg Tablet, 20 MG PO QHS, #30 TAB 01/07/18 Medications Current Medications Miscellaneous Information (* Miscellaneous Pharmacy Order) DURAMORPH: 3.5MG EPIDU... GIVEN NEURAXIAL XX ; Start 01/21/19 at 10:00 Hydromorphone HCl (Dilaudid) 0.2 mg Q2H PRN IV .PAIN 1-5 Last administered on 02/02/19at 13:39; Admin Dose 0.2 MG; Start 01/21/19 at 12:00 Hydromorphone HCl (Dilaudid) 0.4 mg Q2H PRN IV .PAIN 6-10 Last administered on 02/01/19at 20:18; Admin Dose 0.4 MG; Start 01/21/19 at 12:00 Acetaminophen/ Hydrocodone Bitart ([place] (5/325)) 1 tab Q4H PRN PO .PAIN 4-6 Last administered on 01/25/19 08:34; Admin Dose 1 TAB; Start 01/21/19 at 12:00 Diphenhydramine HCl (Benadryl) 25 mg Q4H PRN IV .PRURITUS; Start 01/21/19 at 12:00 Nalbuphine HCl (Nubain) 10 mg Q4H PRN IV .PRURITUS; Start 01/21/19 at 12:00 Ondansetron HCl (Zofran Inj) 4 mg Q6H PRN IV .NAUSEA/VOMITING Last administered on 01/22/19 23:48; Admin Dose 4 MG; Start 01/21/19 at 12:00 Trimethobenzamide HCl (Tigan) 200 mg Q6H PRN IM .NAUSEA/VOMITING; Start 01/21/19 at 12:00 Zolpidem Tartrate (Ambien) 5 mg HS MAY REPEAT X 1 PRN PO .INSOMNIA; Start 01/21/19 at 12:00 Naloxone HCl (Narcan) 0.2 mg Q2M PRN IV .RESP RATE; Start 01/21/19 at 12:00 Hydralazine HCl (Apresoline) 10 mg Q4H PRN IV >150/95 Last administered on 01/24/19 05:34; Admin Dose 10 MG; Start 01/21/19 at 14:00 Metoprolol Tartrate (Lopressor) 5 mg Q4H PRN IV HR>110 HOld SBP<100 Last administered on 01/25/19 05:11; Admin Dose 5 MG; Start 01/23/19 at 20:30 Levalbuterol (Xopenex Neb) 0.63 mg Q6H RESP THERAPY HHN Last administered on 02/12/19 08:37; Admin Dose 0.63 MG; Start 01/24/19 at 23:30 Acetaminophen (Tylenol Tab) 650 mg Q6H PRN PO MILD PAIN(1-3)OR ELEVATED TEMP Last administered on 02/10/19 21:54; Admin Dose 650 MG; Start 01/29/19 at 23:30 Al Hydrox/Mg Hydrox/Simethicone (Mag-Al Plus) 30 ml Q4H PRN PO GASTROINTESTINAL UPSET Last administered on 01/30/19 18:39; Admin Dose 30 ML; Start 01/29/19 at 23:30 Atenolol (Tenormin) 50 mg BID PO Last administered on 02/11/19 08:51; Admin Dose 50 MG; Start 01/30/19 at 21:00 Cefepime HCl 50 ml @ 100 mls/hr Q12 IVPB Last administered on 02/12/19 10:29; Admin Dose 100 MLS/HR; Start 02/04/19 at 14:00 Metronidazole 100 ml @ 100 mls/hr Q8 IVPB Last administered on 02/12/19 05:07; Admin Dose 100 MLS/HR; Start 02/04/19 at 14:00 Neomycin/ Polymyxin/ Gramicidin (Neosporin Oph Drop) 1 drop QID RIGHT EYE Last administered on 02/12/19 10:29; Admin Dose 1 DROP; Start 02/05/19 at 21:00; Stop 02/12/19 at 20:59 Furosemide (Lasix) 20 mg BID DIURETICS IV Last administered on 02/12/19 05:08; Admin Dose 20 MG; Start 02/06/19 at 18:00 Potassium Chloride 40 meq/ Sodium Chloride 1,020 ml @ 75 mls/hr [id number] IV Last administered on 02/11/19at 21:54; Admin Dose 75 MLS/HR; Start 02/11/19 at 07:25 Ciprofloxacin/ Dextrose 200 ml @ 200 mls/hr Q12H IVPB Last administered on 02/12/19 05:07; Admin Dose 200 MLS/HR; Start 02/11/19 at 16:30; Stop 02/12/19 at 16:29 Morphine Sulfate (morphine) 2 mg Q2H PRN IV PAIN LEVEL 6-10; Start 02/11/19 at 16:30 Acetaminophen/ Hydrocodone Bitart ([place] (5/325)) 1 tab Q6H PRN PO PAIN LEVEL 6-10; Start 02/11/19 at 16:30 Diagnostic Test (Pha) (Accu-Chek) 1 ea Q4 XX Last administered on 02/12/19 05:07; Admin Dose 1 EA; Start 02/11/19 at 17:00 Total Parenteral Nutrition 1,000 ml @ 0 mls/hr Q0M IV ; Start 02/11/19 at 16:08; Status UNV Fat Emulsion Intravenous 250 ml @ 10.4 mls/hr DAILY IV ; Start 02/12/19 at 09:00; Status UNV Miscellaneous Information (* Miscellaneous Pharmacy Order) 1 ea ONCE ONCE XX ; Start 02/11/19 at 16:30; Stop 02/11/19 at 16:31; Status UNV Miscellaneous Information (* Miscellaneous Pharmacy Order) DURAMORPH: 0.2 MG SPI... GIVEN NEURAXIAL XX ; Start 02/11/19 at 16:30 Acetaminophen 100 ml @ 400 mls/hr Q6H PRN IVPB FEVER Last administered on 02/12/19at 05:41; Admin Dose 400 MLS/HR; Start 02/12/19 at 05:00; Stop 02/13/19 at 04:59 Fluconazole 100 ml @ 100 mls/hr Q24H IVPB ; Start 02/12/19 at 12:30; Status UNV Nystatin (Nystatin Susp) 5 ml QID PO ; Start 02/12/19 at 13:00; Status UNV Assessment/Plan Hospital Course (Demo Recall) 1. Tachycardia, at this time sinus tachycardia in the setting of significant pain, fevers, status post surgery. NL EF by echo 60-65. ON had onset of AF with RVR - now rate better controlled. In a. fib now with RVR - a. fib since Mid January - now tachy - not a good candidate for CV as he can not be anti-coagulated post op - will allow for now as BP is moistly stable. When OK to fully anti- coagulate, will consider CV as pt was in sinus recency by EKG in the chart. 2. Possible congestive heart failure by chest x-ray with the patient having the onset of acute renal failure at this time. Improved CHF. Better. Keep euvolemic. Stable. 3. Hypertension, mildly elevated. BP well optimized nw. Will re-check post am meds. 4. Postoperative status post reversal colostomy - GI team follows,. Con't to recover. On therapy. Surgical team follows. 5. No new episodes. 6. Renal failure, acute.-improved now - renal team follows. 7. History of colon carcinoma status post prior colectomy with colostomy - now with therapy post op. 8. Hypernatremia, improved 9. Hypomagnesemia-improved 10. Leukocytosis. On anti-Bx, better overall. SUSSY ANTHONY MD Feb 12, 2019 13:12
--- NOTE | 2019-02-12 13:43 | PN ---
Date/Time of Note Date/Time of Note DATE: 02/12/19 TIME: 13:41 Assessment/Plan VTE Prophylaxis Risk score (from Nsg)>0 risk: 8 SCD applied (from Nsg): Yes Pharmacological prophylaxis: other Lines/Catheters IV Catheter Type (from Nrsg): Mid Line Urinary Cath still in place: Yes Reason Cath still needed: other (indicate) Assessment/Plan Assessment/Plan s/p exp lap and drainage and diverting loop ileostomy continue care start TPN ok to transfer to [facility] if all other teams agree Result Diagram: 02/12/19 0449 02/12/19 0449 Results 24hrs Laboratory Tests Test 02/11/19 17:33 02/11/19 18:29 02/11/19 21:59 02/12/19 01:12 Bedside Glucose 129 130 134 White Blood Count 11.6 #H Red Blood Count 3.38 L Hemoglobin 10.0 L Hematocrit 31.5 L Mean Corpuscular 93.2 Volume Mean Corpuscular 29.6 Hemoglobin Mean Corpuscular 31.7 L Hemoglobin Concent Red Cell 13.4 Distribution Width Platelet Count 286 Mean Platelet Volume 10.3 Immature 0.900 H Granulocytes % Neutrophils % 85.7 H Lymphocytes % 4.9 L Monocytes % 7.3 Eosinophils % 0.9 Basophils % 0.3 Nucleated Red Blood 0.0 Cells % Immature 0.110 H Granulocytes # Neutrophils # 10.0 H Lymphocytes # 0.6 L Monocytes # 0.9 Eosinophils # 0.1 Basophils # 0.0 Nucleated Red Blood 0.0 Cells # Sodium Level 137 Potassium Level 3.8 Chloride Level 103 Carbon Dioxide Level 29 Anion Gap 5 Blood Urea Nitrogen 12 Creatinine 0.83 Est Glomerular > 60 Filtrat Rate mL/min Glucose Level 166 Calcium Level 8.4 Phosphorus Level 4.1 Magnesium Level 1.8 Total Bilirubin 0.2 Direct Bilirubin 0.00 Indirect Bilirubin 0.2 Aspartate Amino 32 Transf (AST/SGOT) Alanine 27 Aminotransferase (AL T/SGPT) Alkaline Phosphatase 95 Total Protein 5.6 L Albumin 2.5 L Globulin 3.10 Albumin/Globulin 0.80 Ratio Prealbumin 10.7 L Triglycerides Level 146 Test 02/12/19 04:49 02/12/19 04:50 02/12/19 05:00 02/12/19 08:15 White Blood Count 11.7 H Red Blood Count 3.60 L Hemoglobin 10.7 L Hematocrit 33.7 L Mean Corpuscular 93.6 Volume Mean Corpuscular 29.7 Hemoglobin Mean Corpuscular 31.8 L Hemoglobin Concent Red Cell 13.7 Distribution Width Platelet Count 310 Mean Platelet Volume 10.6 H Immature 0.800 H Granulocytes % Neutrophils % 86.6 H Lymphocytes % 3.9 L Monocytes % 8.1 Eosinophils % 0.3 Basophils % 0.3 Nucleated Red Blood 0.0 Cells % Immature 0.090 H Granulocytes # Neutrophils # 10.1 H Lymphocytes # 0.5 L Monocytes # 0.9 Eosinophils # 0.0 Basophils # 0.0 Nucleated Red Blood 0.0 Cells # Sodium Level 139 Potassium Level 4.4 Chloride Level 103 Carbon Dioxide Level 30 Anion Gap 6 Blood Urea Nitrogen 15 Creatinine 0.97 Est Glomerular > 60 Filtrat Rate mL/min Glucose Level 125 # Calcium Level 8.6 Phosphorus Level 4.0 Magnesium Level 1.8 Total Bilirubin 0.3 Direct Bilirubin 0.00 Indirect Bilirubin 0.3 Aspartate Amino 25 Transf (AST/SGOT) Alanine 25 Aminotransferase (AL T/SGPT) Alkaline Phosphatase 90 Total Protein 5.7 L Albumin 2.5 L Globulin 3.20 Albumin/Globulin 0.78 Ratio Bedside Glucose 128 146 Urine Color JACQUELINE Urine Clarity CLEAR Urine pH 6.0 Urine Specific 1.020 [place] Urine Ketones TRACE A Urine Nitrite NEGATIVE Urine Bilirubin NEGATIVE Urine Urobilinogen NEGATIVE Urine Leukocyte TRACE A Esterase Urine Microscopic 1 RBC Urine Microscopic 4 WBC Urine Mucus FEW A Urine Hemoglobin NEGATIVE Urine Glucose NEGATIVE Urine Total Protein 1+ H Lactic Acid Level 1.6 Subjective 24 Hr Interval Summary Free Text/Dictation patient doing ok, need supplemental nutrition with TPN per dietary recs also needs tele monitoring Exam/Review of Systems Exam Vitals Vital Signs Date Temp Pulse Resp B/P (MAP) Pulse Ox O2 O2 Flow FiO2 Time Delivery Rate 02/12/19 113 27 100/70 94 Nasal 2.0 12:00 (80) Cannula 02/12/19 100.0 06:26 02/11/19 28 08:15 Intake and Output 02/11/19 02/11/19 02/12/19 1515:00 23:00 07:00 IntakeIntake Total 1000 ml 750 ml 1000 ml OutputOutput Total 1150 ml 1165 ml 545 ml BalanceBalance -150 ml -415 ml 455 ml Exam c/d/i drains working ileostomy viable Results Results 24hrs Laboratory Tests Test 02/11/19 17:33 02/11/19 18:29 02/11/19 21:59 02/12/19 01:12 Bedside Glucose 129 130 134 White Blood Count 11.6 #H Red Blood Count 3.38 L Hemoglobin 10.0 L Hematocrit 31.5 L Mean Corpuscular 93.2 Volume Mean Corpuscular 29.6 Hemoglobin Mean Corpuscular 31.7 L Hemoglobin Concent Red Cell 13.4 Distribution Width Platelet Count 286 Mean Platelet Volume 10.3 Immature 0.900 H Granulocytes % Neutrophils % 85.7 H Lymphocytes % 4.9 L Monocytes % 7.3 Eosinophils % 0.9 Basophils % 0.3 Nucleated Red Blood 0.0 Cells % Immature 0.110 H Granulocytes # Neutrophils # 10.0 H Lymphocytes # 0.6 L Monocytes # 0.9 Eosinophils # 0.1 Basophils # 0.0 Nucleated Red Blood 0.0 Cells # Sodium Level 137 Potassium Level 3.8 Chloride Level 103 Carbon Dioxide Level 29 Anion Gap 5 Blood Urea Nitrogen 12 Creatinine 0.83 Est Glomerular > 60 Filtrat Rate mL/min Glucose Level 166 Calcium Level 8.4 Phosphorus Level 4.1 Magnesium Level 1.8 Total Bilirubin 0.2 Direct Bilirubin 0.00 Indirect Bilirubin 0.2 Aspartate Amino 32 Transf (AST/SGOT) Alanine 27 Aminotransferase (AL T/SGPT) Alkaline Phosphatase 95 Total Protein 5.6 L Albumin 2.5 L Globulin 3.10 Albumin/Globulin 0.80 Ratio Prealbumin 10.7 L Triglycerides Level 146 Test 02/12/19 04:49 02/12/19 04:50 02/12/19 05:00 02/12/19 08:15 White Blood Count 11.7 H Red Blood Count 3.60 L Hemoglobin 10.7 L Hematocrit 33.7 L Mean Corpuscular 93.6 Volume Mean Corpuscular 29.7 Hemoglobin Mean Corpuscular 31.8 L Hemoglobin Concent Red Cell 13.7 Distribution Width Platelet Count 310 Mean Platelet Volume 10.6 H Immature 0.800 H Granulocytes % Neutrophils % 86.6 H Lymphocytes % 3.9 L Monocytes % 8.1 Eosinophils % 0.3 Basophils % 0.3 Nucleated Red Blood 0.0 Cells % Immature 0.090 H Granulocytes # Neutrophils # 10.1 H Lymphocytes # 0.5 L Monocytes # 0.9 Eosinophils # 0.0 Basophils # 0.0 Nucleated Red Blood 0.0 Cells # Sodium Level 139 Potassium Level 4.4 Chloride Level 103 Carbon Dioxide Level 30 Anion Gap 6 Blood Urea Nitrogen 15 Creatinine 0.97 Est Glomerular > 60 Filtrat Rate mL/min Glucose Level 125 # Calcium Level 8.6 Phosphorus Level 4.0 Magnesium Level 1.8 Total Bilirubin 0.3 Direct Bilirubin 0.00 Indirect Bilirubin 0.3 Aspartate Amino 25 Transf (AST/SGOT) Alanine 25 Aminotransferase (AL T/SGPT) Alkaline Phosphatase 90 Total Protein 5.7 L Albumin 2.5 L Globulin 3.20 Albumin/Globulin 0.78 Ratio Bedside Glucose 128 146 Urine Color JACQUELINE Urine Clarity CLEAR Urine pH 6.0 Urine Specific 1.020 [place] Urine Ketones TRACE A Urine Nitrite NEGATIVE Urine Bilirubin NEGATIVE Urine Urobilinogen NEGATIVE Urine Leukocyte TRACE A Esterase Urine Microscopic 1 RBC Urine Microscopic 4 WBC Urine Mucus FEW A Urine Hemoglobin NEGATIVE Urine Glucose NEGATIVE Urine Total Protein 1+ H Lactic Acid Level 1.6 Medications Medication Current Medications Miscellaneous Information (* Miscellaneous Pharmacy Order) DURAMORPH: 3.5MG EPIDU... GIVEN NEURAXIAL XX ; Start 01/21/19 at 10:00 Hydromorphone HCl (Dilaudid) 0.2 mg Q2H PRN IV .PAIN 1-5 Last administered on 02/02/19at 13:39; Admin Dose 0.2 MG; Start 01/21/19 at 12:00 Hydromorphone HCl (Dilaudid) 0.4 mg Q2H PRN IV .PAIN 6-10 Last administered on 02/01/19at 20:18; Admin Dose 0.4 MG; Start 01/21/19 at 12:00 Acetaminophen/ Hydrocodone Bitart ([place] (5/325)) 1 tab Q4H PRN PO .PAIN 4-6 Last administered on 01/25/19at 08:34; Admin Dose 1 TAB; Start 01/21/19 at 12:00 Diphenhydramine HCl (Benadryl) 25 mg Q4H PRN IV .PRURITUS; Start 01/21/19 at 12:00 Nalbuphine HCl (Nubain) 10 mg Q4H PRN IV .PRURITUS; Start 01/21/19 at 12:00 Ondansetron HCl (Zofran Inj) 4 mg Q6H PRN IV .NAUSEA/VOMITING Last administered on 01/22/19 23:48; Admin Dose 4 MG; Start 01/21/19 at 12:00 Trimethobenzamide HCl (Tigan) 200 mg Q6H PRN IM .NAUSEA/VOMITING; Start 01/21/19 at 12:00 Zolpidem Tartrate (Ambien) 5 mg HS MAY REPEAT X 1 PRN PO .INSOMNIA; Start 01/21/19 at 12:00 Naloxone HCl (Narcan) 0.2 mg Q2M PRN IV .RESP RATE; Start 01/21/19 at 12:00 Hydralazine HCl (Apresoline) 10 mg Q4H PRN IV >150/95 Last administered on 01/24/19 05:34; Admin Dose 10 MG; Start 01/21/19 at 14:00 Metoprolol Tartrate (Lopressor) 5 mg Q4H PRN IV HR>110 HOld SBP<100 Last administered on 01/25/19 05:11; Admin Dose 5 MG; Start 01/23/19 at 20:30 Levalbuterol (Xopenex Neb) 0.63 mg Q6H RESP THERAPY HHN Last administered on 02/12/19 08:37; Admin Dose 0.63 MG; Start 01/24/19 at 23:30 Acetaminophen (Tylenol Tab) 650 mg Q6H PRN PO MILD PAIN(1-3)OR ELEVATED TEMP Last administered on 02/10/19 21:54; Admin Dose 650 MG; Start 01/29/19 at 23:30 Al Hydrox/Mg Hydrox/Simethicone (Mag-Al Plus) 30 ml Q4H PRN PO GASTROINTESTINAL UPSET Last administered on 01/30/19 18:39; Admin Dose 30 ML; Start 01/29/19 at 23:30 Atenolol (Tenormin) 50 mg BID PO Last administered on 02/11/19 08:51; Admin Dose 50 MG; Start 01/30/19 at 21:00 Cefepime HCl 50 ml @ 100 mls/hr Q12 IVPB Last administered on 02/12/19 10:29; Admin Dose 100 MLS/HR; Start 02/04/19 at 14:00 Metronidazole 100 ml @ 100 mls/hr Q8 IVPB Last administered on 02/12/19 13:21; Admin Dose 100 MLS/HR; Start 02/04/19 at 14:00 Neomycin/ Polymyxin/ Gramicidin (Neosporin Oph Drop) 1 drop QID RIGHT EYE Last administered on 02/12/19at 13:23; Admin Dose 1 DROP; Start 02/05/19 at 21:00; Stop 02/12/19 at 20:59 Furosemide (Lasix) 20 mg BID DIURETICS IV Last administered on 02/12/19at 05:08; Admin Dose 20 MG; Start 02/06/19 at 18:00 Potassium Chloride 40 meq/ Sodium Chloride 1,020 ml @ 75 mls/hr [id number] IV Last administered on 02/11/19at 21:54; Admin Dose 75 MLS/HR; Start 02/11/19 at 07:25; Stop 02/12/19 at 15:59 Ciprofloxacin/ Dextrose 200 ml @ 200 mls/hr Q12H IVPB Last administered on 02/12/19at 05:07; Admin Dose 200 MLS/HR; Start 02/11/19 at 16:30; Stop 02/12/19 at 16:29 Morphine Sulfate (morphine) 2 mg Q2H PRN IV PAIN LEVEL 6-10; Start 02/11/19 at 16:30 Acetaminophen/ Hydrocodone Bitart ([place] (5/325)) 1 tab Q6H PRN PO PAIN LEVEL 6-10; Start 02/11/19 at 16:30 Diagnostic Test (Pha) (Accu-Chek) 1 ea Q4 XX Last administered on 02/12/19at 05:07; Admin Dose 1 EA; Start 02/11/19 at 17:00 Total Parenteral Nutrition 1,000 ml @ 50 mls/hr Q20H IV ; Start 02/12/19 at 16:00 Fat Emulsion Intravenous 250 ml @ 20.833 mls/ hr Q24H IV ; Start 02/12/19 at 16:00 Miscellaneous Information (* Miscellaneous Pharmacy Order) 1 ea ONCE ONCE XX ; Start 02/11/19 at 16:30; Stop 02/11/19 at 16:31; Status UNV Miscellaneous Information (* Miscellaneous Pharmacy Order) DURAMORPH: 0.2 MG SPI... GIVEN NEURAXIAL XX ; Start 02/11/19 at 16:30 Acetaminophen 100 ml @ 400 mls/hr Q6H PRN IVPB FEVER Last administered on 02/12/19at 05:41; Admin Dose 400 MLS/HR; Start 02/12/19 at 05:00; Stop 02/13/19 at 04:59 Fluconazole 100 ml @ 100 mls/hr Q24H IVPB ; Start 02/12/19 at 12:30 Nystatin (Nystatin Susp) 5 ml QID PO ; Start 02/12/19 at 13:00; Status UNV Ann FERNANDEZ Feb 12, 2019 13:43
[2019-02-12] MEDS: NYSTATIN SUSP 5 ML CUP PO SCH ×3 (14:10→22:36)
[2019-02-12] MEDS: FLUCONAZOLE 200 MG (PMX) 100 ML IVPB SCH (14:34)
[2019-02-12] MEDS: FAT EMULSION 20% 250 ML IV SCH (15:43)
[2019-02-12] MEDS: TPN 1,000 ML IV SCH (15:43)
[2019-02-13] VITALS (15 sets, daily range): BP systolic 106–125; BP diastolic 72–80; PULSE 66–175; RESP 18–20
[2019-02-13] MEDS: ACCU-CHEK XX SCH ×6 (01:15→20:44)
[2019-02-13] MEDS: LEVALBUTEROL (NEB) 0.63 MG/3 ML AMP HHN SCH ×4 (02:00→19:21)
[2019-02-13] MEDS: METOPROLOL 5 MG INJ IV PRN ×2 (02:24→06:22)
[2019-02-13] MEDS: metroNIDAZOLE 500 MG/NS (PMX) 100 ML IVPB SCH ×3 (05:12→21:41)
[2019-02-13] MEDS: FUROSEMIDE 20 MG INJ IV SCH ×2 (05:12→17:42)
--- NOTE | 2019-02-13 05:17 | PN ---
Date/Time of Note Date/Time of Note DATE: 02/13/19 TIME: 05:16 Assessment/Plan VTE Prophylaxis Risk score (from Nsg)>0 risk: 7 SCD applied (from Nsg): Yes Lines/Catheters IV Catheter Type (from Nrsg): Saline Lock Urinary Cath still in place: Yes Reason Cath still needed: urinary retention Assessment/Plan Assessment/Plan - Possible sepsis - per ID - SP exploratory laparotomy; anastomotic leak and abscess - recommendations per sx -Increased leukocytosis patient is currently on Zosyn and Flagyl, CT of the abdomen and pelvis revealed moderate ascites, questionable peritonitis or a bscess increased right lower lobe infiltrate. Dr. Vázquez is following in infection disease consultation. -Possible surgical wound infection, obtain wound cx. -Right lower lobe infiltrate -S/p open Reagan reversal and colorectal low pelvic anastomosis, segmental partial colectomy, and open incarcerated incisional and parastomal hernia repairs with mesh by Dr. Art on 01/21/2019. Continue [place] and Dilaudid as needed for pain and Zofran as needed for nausea. -Stage III sigmoid colon cancer, status post surgery and chemo in 2018. -Acute kidney injury on chronic kidney disease, monitor urine output BUN and creatinine. Dr. Stuart is following in nephrology consultation. -Acute on chronic diastolic CHF -Atrial fibrillation. -Obstructive sleep apnea -History of hypertension -History of left upper extremity DVT Dw Dr Fox Result Diagram: 02/12/199 02/12/199 Results 24hrs Laboratory Tests Test 02/12/19 08:15 02/12/19 13:38 02/12/19 16:17 02/12/19 20:20 Bedside Glucose 146 102 135 131 Test 02/13/19 01:02 02/13/19 05:10 Bedside Glucose 154 148 Exam/Review of Systems Exam Vitals Vital Signs Date Temp Pulse Resp B/P (MAP) Pulse Ox O2 O2 Flow FiO2 Time Delivery Rate 02/13/19 98.9 70 18 108/72 96 04:00 (84) 02/13/19 Nasal 2.0 02:15 Cannula 02/11/19 28 08:15 Intake and Output 02/12/19 02/12/19 02/13/19 1414:59 22:59 06:59 IntakeIntake Total 1175 ml 241.6 ml OutputOutput Total 706 ml 234 ml 2 ml BalanceBalance 469 ml 7.6 ml -2 ml Results Results 24hrs Laboratory Tests Test 02/12/19 08:15 02/12/19 13:38 02/12/19 16:17 02/12/19 20:20 Bedside Glucose 146 102 135 131 Test 02/13/19 01:02 02/13/19 05:10 Bedside Glucose 154 148 Medications Medication Current Medications Miscellaneous Information (* Miscellaneous Pharmacy Order) DURAMORPH: 3.5MG EPIDU... GIVEN NEURAXIAL XX ; Start 01/21/19 at 10:00 Hydromorphone HCl (Dilaudid) 0.2 mg Q2H PRN IV .PAIN 1-5 Last administered on 02/02/19at 13:39; Admin Dose 0.2 MG; Start 01/21/19 at 12:00 Hydromorphone HCl (Dilaudid) 0.4 mg Q2H PRN IV .PAIN 6-10 Last administered on 02/01/19at 20:18; Admin Dose 0.4 MG; Start 01/21/19 at 12:00 Acetaminophen/ Hydrocodone Bitart ([place] (5/325)) 1 tab Q4H PRN PO .PAIN 4-6 Last administered on 01/25/19at 08:34; Admin Dose 1 TAB; Start 01/21/19 at 12:00 Diphenhydramine HCl (Benadryl) 25 mg Q4H PRN IV .PRURITUS; Start 01/21/19 at 12:00 Nalbuphine HCl (Nubain) 10 mg Q4H PRN IV .PRURITUS; Start 01/21/19 at 12:00 Ondansetron HCl (Zofran Inj) 4 mg Q6H PRN IV .NAUSEA/VOMITING Last administered on 01/22/19at 23:48; Admin Dose 4 MG; Start 01/21/19 at 12:00 Trimethobenzamide HCl (Tigan) 200 mg Q6H PRN IM .NAUSEA/VOMITING; Start 01/21/19 at 12:00 Zolpidem Tartrate (Ambien) 5 mg HS MAY REPEAT X 1 PRN PO .INSOMNIA; Start 01/21/19 at 12:00 Naloxone HCl (Narcan) 0.2 mg Q2M PRN IV .RESP RATE; Start 01/21/19 at 12:00 Hydralazine HCl (Apresoline) 10 mg Q4H PRN IV >150/95 Last administered on 01/24/19 05:34; Admin Dose 10 MG; Start 01/21/19 at 14:00 Metoprolol Tartrate (Lopressor) 5 mg Q4H PRN IV HR>110 HOld SBP<100 Last administered on 02/13/19 02:24; Admin Dose 5 MG; Start 01/23/19 at 20:30 Levalbuterol (Xopenex Neb) 0.63 mg Q6H RESP THERAPY HHN Last administered on 02/13/19 02:00; Admin Dose 0.63 MG; Start 01/24/19 at 23:30 Acetaminophen (Tylenol Tab) 650 mg Q6H PRN PO MILD PAIN(1-3)OR ELEVATED TEMP Last administered on 02/10/19 21:54; Admin Dose 650 MG; Start 01/29/19 at 23:30 Al Hydrox/Mg Hydrox/Simethicone (Mag-Al Plus) 30 ml Q4H PRN PO GASTROINTESTINAL UPSET Last administered on 01/30/19 18:39; Admin Dose 30 ML; Start 01/29/19 at 23:30 Atenolol (Tenormin) 50 mg BID PO Last administered on 02/11/19 08:51; Admin Dose 50 MG; Start 01/30/19 at 21:00 Cefepime HCl 50 ml @ 100 mls/hr Q12 IVPB Last administered on 02/12/19 23:06; Admin Dose 100 MLS/HR; Start 02/04/19 at 14:00 Metronidazole 100 ml @ 100 mls/hr Q8 IVPB Last administered on 02/13/19 05:12; Admin Dose 100 MLS/HR; Start 02/04/19 at 14:00 Furosemide (Lasix) 20 mg BID DIURETICS IV Last administered on 02/13/19 05:12; Admin Dose 20 MG; Start 02/06/19 at 18:00 Morphine Sulfate (morphine) 2 mg Q2H PRN IV PAIN LEVEL 6-10; Start 02/11/19 at 16:30 Acetaminophen/ Hydrocodone Bitart ([place] (5/325)) 1 tab Q6H PRN PO PAIN LEVEL 6-10; Start 02/11/19 at 16:30 Diagnostic Test (Pha) (Accu-Chek) 1 ea Q4 XX Last administered on 02/13/19at 05:13; Admin Dose 1 EA; Start 02/11/19 at 17:00 Total Parenteral Nutrition 1,000 ml @ 50 mls/hr Q20H IV Last administered on 02/12/19at 15:43; Admin Dose 50 MLS/HR; Start 02/12/19 at 16:00 Fat Emulsion Intravenous 250 ml @ 20.833 mls/ hr Q24H IV Last administered on 02/12/19at 15:43; Admin Dose 20.833 MLS/HR; Start 02/12/19 at 16:00 Miscellaneous Information (* Miscellaneous Pharmacy Order) DURAMORPH: 0.2 MG SPI... GIVEN NEURAXIAL XX ; Start 02/11/19 at 16:30 Fluconazole 100 ml @ 100 mls/hr Q24H IVPB Last administered on 02/12/19at 14:34; Admin Dose 100 MLS/HR; Start 02/12/19 at 12:30 Nystatin (Nystatin Susp) 5 ml QID PO Last administered on 02/12/19at 22:36; Admin Dose 5 ML; Start 02/12/19 at 13:00 LUIS HARDWICK February 13, 2019 05:17
[2019-02-13] MEDS: NYSTATIN SUSP 5 ML CUP PO SCH ×4 (09:44→20:31)
[2019-02-13] MEDS: ATENOLOL 50 MG TAB PO SCH ×2 (09:45→20:31)
[2019-02-13] MEDS: CEFEPIME 2GM/50 ML (PMX) 50 ML IVPB SCH ×2 (10:56→20:32)
[2019-02-13] MEDS: TPN 1,000 ML IV SCH (11:15)
[2019-02-13] MEDS: FLUCONAZOLE 200 MG (PMX) 100 ML IVPB SCH (12:36)
--- NOTE | 2019-02-13 12:54 | CONS ---
Assessment/Plan Assessment/Plan Hospital Course (Demo Recall) assessment/impression # sepsis, respiratory - sepsis due to complicated intra-abdominal infection and pneumonia - pleural effusion, exudative process, parapneumonic effusion LDH 1601 protein 3.2, no e/o malignancy on cytology - s/p R sided thoracentesis on 02/05/2019 - VIJAY # GI, onc - s/p ex lap, washout of abdominal abscess, CLEVE, diverting loop ileostomy on 02/11/2019 - s/p open Reagan reversal and colorectal low pelvic anastomosis, segmental partial colectomy, and open incarcerated incisional and parastomal hernia repairs with mesh by Dr. Art on 01/21/2019 - thrush - follow up CT on 02/04/2019 did not identify definite point of leak--> anastomotic leak was identified on gastograffin - s/p CT guided drainage of abscess in LLQ on 02/01/2019 - Abdominal wound culture 01/30/19 and abscess culture 01/31/19 grew pseudomonas, joseline albicans and glabrata - S/p colostomy reversal - Stage III sigmoid colon cancer, status post prior colectomy/colostomy and chemo in 2017 # renal, cardiovascular - Acute kidney injury on chronic kidney disease - Acute on chronic diastolic CHF - Atrial fibrillation. - Hx hypertension - Hx left upper extremity DVT - Superficial thrombus in R cephalic vein in the forearm and in L cephalic vein in the antecubital fossa as visualized on NOY 02/05/2019 # other conditions - R conjunctivitis, resolved after neomycin eye drop x 7 days recommendations: - pending results: fluid from RUDDY #1 for cultures of aerobic and anaerobic bacteria and fungi - continue cefepime and metronidazole (02/04/2019-), fluconazole (01/30/2019-). Pt previously took meropenem (01/30/2019-02/03/2019) - continue nystatin for thrush (02/12/2019-) - management d/w Pt, his son, RN Consultation Date/Type/Reason Admit Date/Time Jan 21, 2019 at 06:18 Initial Consult Date 01/30/19 Type of Consult ID Requesting Provider: ODELL PACHECO Date/Time of Note DATE: 02/13/19 TIME: 12:49 24 HR Interval Summary Constitutional: improved Detailed Summary Eyes: no complaints ENT: no complaints Respiratory: no complaints Cardiovascular: no complaints Gastrointestinal: no complaints, passing stool (ileostomy bag) Genitourinary: other (FC) Musculoskeletal: no complaints Skin: no complaints Neurologic: No headache, No other (sleepiness) Exam/Review of Systems Exam Vitals Vital Signs Date Temp Pulse Resp B/P (MAP) Pulse Ox O2 O2 Flow FiO2 Time Delivery Rate 02/13/19 98.4 98 20 112/74 97 Nasal 11:29 (87) Cannula 02/13/19 2.0 08:00 02/11/19 28 08:15 Intake and Output 02/12/19 02/12/19 02/13/19 1515:00 23:00 07:00 IntakeIntake Total 1200 ml 141.6 ml 250 ml OutputOutput Total 556 ml 184 ml 2152 ml BalanceBalance 644 ml -42.4 ml -1902 ml Constitutional: frail Psych: no complaints, nl mood/affect Head: normocephalic, atraumatic Eyes: nl conjunctiva, nl lids, nl sclera ENMT: nl external ears & nose, nl nasal mucosa & septum, mucosa pink and moist Neck: other (not swollen) Respiratory: clear to auscultation Cardiovascular: regular rate and rhythm, nl pulses Gastrointestinal: soft, distended, surgical scars, other (ileostoomy bag, JPs and accordion drain) Musculoskeletal: other (FC) Extremities: No edema Neurological: lethargic Skin: nl turgor; No rash or lesions Results Result Diagram: 02/12/19 0449 02/13/19 0745 Results 24hrs Laboratory Tests Test 02/12/19 13:38 02/12/19 16:17 02/12/19 20:20 02/13/19 01:02 Bedside Glucose 102 135 131 154 Test 02/13/19 05:10 02/13/19 07:45 02/13/19 09:41 Bedside Glucose 148 157 Sodium Level 138 Potassium Level 3.7 Chloride Level 103 Carbon Dioxide Level 29 Anion Gap 6 Blood Urea Nitrogen 14 Creatinine 0.78 Est Glomerular > 60 Filtrat Rate mL/min Glucose Level 150 Calcium Level 8.4 Phosphorus Level 3.0 Magnesium Level 2.0 Medications Medication Current Medications Miscellaneous Information (* Miscellaneous Pharmacy Order) DURAMORPH: 3.5MG EPIDU... GIVEN NEURAXIAL XX ; Start 01/21/19 at 10:00 Hydromorphone HCl (Dilaudid) 0.2 mg Q2H PRN IV .PAIN 1-5 Last administered on 02/02/19at 13:39; Admin Dose 0.2 MG; Start 01/21/19 at 12:00 Hydromorphone HCl (Dilaudid) 0.4 mg Q2H PRN IV .PAIN 6-10 Last administered on 02/01/19at 20:18; Admin Dose 0.4 MG; Start 01/21/19 at 12:00 Acetaminophen/ Hydrocodone Bitart ([place] (5/325)) 1 tab Q4H PRN PO .PAIN 4-6 Last administered on 01/25/19at 08:34; Admin Dose 1 TAB; Start 01/21/19 at 12:00 Diphenhydramine HCl (Benadryl) 25 mg Q4H PRN IV .PRURITUS; Start 01/21/19 at 12:00 Nalbuphine HCl (Nubain) 10 mg Q4H PRN IV .PRURITUS; Start 01/21/19 at 12:00 Ondansetron HCl (Zofran Inj) 4 mg Q6H PRN IV .NAUSEA/VOMITING Last administered on 01/22/19at 23:48; Admin Dose 4 MG; Start 01/21/19 at 12:00 Trimethobenzamide HCl (Tigan) 200 mg Q6H PRN IM .NAUSEA/VOMITING; Start 01/21/19 at 12:00 Zolpidem Tartrate (Ambien) 5 mg HS MAY REPEAT X 1 PRN PO .INSOMNIA; Start 01/21/19 at 12:00 Naloxone HCl (Narcan) 0.2 mg Q2M PRN IV .RESP RATE; Start 01/21/19 at 12:00 Hydralazine HCl (Apresoline) 10 mg Q4H PRN IV >150/95 Last administered on 01/24at 05:34; Admin Dose 10 MG; Start 01/21/19 at 14:00 Metoprolol Tartrate (Lopressor) 5 mg Q4H PRN IV HR>110 HOld SBP<100 Last administered on 02/13/19at 06:22; Admin Dose 5 MG; Start 01/23/19 at 20:30 Levalbuterol (Xopenex Neb) 0.63 mg Q6H RESP THERAPY HHN Last administered on 02/13/19 08:00; Admin Dose 0.63 MG; Start 01/24/19 at 23:30 Acetaminophen (Tylenol Tab) 650 mg Q6H PRN PO MILD PAIN(1-3)OR ELEVATED TEMP Last administered on 02/10/19 21:54; Admin Dose 650 MG; Start 01/29/19 at 23:30 Al Hydrox/Mg Hydrox/Simethicone (Mag-Al Plus) 30 ml Q4H PRN PO GASTROINTESTINAL UPSET Last administered on 01/30/19 18:39; Admin Dose 30 ML; Start 01/29/19 at 23:30 Atenolol (Tenormin) 50 mg BID PO Last administered on 02/13/19 09:45; Admin Dose 50 MG; Start 01/30/19 at 21:00 Cefepime HCl 50 ml @ 100 mls/hr Q12 IVPB Last administered on 02/13/19 10:56; Admin Dose 100 MLS/HR; Start 02/04/19 at 14:00 Metronidazole 100 ml @ 100 mls/hr Q8 IVPB Last administered on 02/13/19 05:12; Admin Dose 100 MLS/HR; Start 02/04/19 at 14:00 Furosemide (Lasix) 20 mg BID DIURETICS IV Last administered on 02/13/19 05:12; Admin Dose 20 MG; Start 02/06/19 at 18:00 Morphine Sulfate (morphine) 2 mg Q2H PRN IV PAIN LEVEL 6-10; Start 02/11/19 at 16:30 Acetaminophen/ Hydrocodone Bitart ([place] (5/325)) 1 tab Q6H PRN PO PAIN LEVEL 6-10; Start 02/11/19 at 16:30 Diagnostic Test (Pha) (Accu-Chek) 1 ea Q4 XX Last administered on 02/13/19 12:38; Admin Dose 1 EA; Start 02/11/19 at 17:00 Total Parenteral Nutrition 1,000 ml @ 50 mls/hr Q20H IV Last administered on 02/13/19 11:15; Admin Dose 50 MLS/HR; Start 02/12/19 at 16:00 Fat Emulsion Intravenous 250 ml @ 20.833 mls/ hr Q24H IV Last administered on 4/30/19at 15:43; Admin Dose 20.833 MLS/HR; Start 02/12/19 at 16:00 Miscellaneous Information (* Miscellaneous Pharmacy Order) DURAMORPH: 0.2 MG SPI... GIVEN NEURAXIAL XX ; Start 02/11/19 at 16:30 Fluconazole 100 ml @ 100 mls/hr Q24H IVPB Last administered on 02/13/19at 12:36; Admin Dose 100 MLS/HR; Start 02/12/19 at 12:30 Nystatin (Nystatin Susp) 5 ml QID PO Last administered on 02/13/19at 12:36; Admin Dose 5 ML; Start 02/12/19 at 13:00 MERCED ESCUDERO M.D. February 13, 2019 12:54
[2019-02-13] MEDS: FAT EMULSION 20% 250 ML IV SCH (15:13)
--- NOTE | 2019-02-13 16:40 | CONS ---
Assessment/Plan Assessment/Plan Hospital Course (Demo Recall) IMPRESSION: 1. Tachycardia c/w AF now improved HR control. NL EF by echo 60-65 2. Possible congestive heart failure by chest x-ray with the patient having the onset of acute renal failure at this time. 3. Hypertension 4. Postoperative status post reversal colostomy. 5. Fevers postop. 6. Renal failure, acute.-improved now 7. History of colon carcinoma status post prior colectomy with colostomy with anastomatic leak by abd CT and now post-op s/p repeat surgery with removal abscess and placement of drains 8. Hypernatremia, improved 9. Hypomagnesemia-improved 10. Leukocytosis. Recc: -Tele -Continue PO BB -will give additional dose IVP digoxin to assure good HR control -Pain control -Continue abx's and f/u cx data -Follow volume status closely and resume IV lasix diuresis -? ability to resume lovenox for AF -routine post-op care -ON TPN Consultation Date/Type/Reason Admit Date/Time Jan 21, 2019 at 06:18 Initial Consult Date 01/23/19 Type of Consult Cardiology Reason for Consultation tachycardia/AF Requesting Provider: ODELL PACHECO Date/Time of Note DATE: 02/13/19 TIME: 16:36 Exam/Review of Systems Vital Signs Vitals Vital Signs Date Temp Pulse Resp B/P (MAP) Pulse Ox O2 O2 Flow FiO2 Time Delivery Rate 02/13/19 99.4 91 20 117/78 95 Nasal 15:46 (91) Cannula 02/13/19 2.0 14:15 02/11/19 28 08:15 Intake and Output 02/12/19 02/12/19 02/13/19 1515:00 23:00 07:00 IntakeIntake Total 1200 ml 141.6 ml 250 ml OutputOutput Total 556 ml 184 ml 2152 ml BalanceBalance 644 ml -42.4 ml -1902 ml Exam Exam Review of Systems: CONSTITUTIONAL: No fevers, chills. PULMONARY: No sob CARDIOVASCULAR: No chest pain/palpitations GASTROINTESTINAL: No nausea/vomiting. GENITOURINARY: No hematuria/dysuria. MUSCULOSKELETAL: No myagias/arthalgias. PSYCHIATRIC: The patient denies depression. NEUROLOGIC: No weakness Constitutional: alert Psych: no complaints Head: normocephalic ENMT: mucosa pink and moist Neck: supple, jvd (9 cm water) Respiratory: diminished breath sounds (at bases/B) Cardiovascular: irregular rhythm Gastrointestinal: soft, other (covered by dressing with drains in place) Musculoskeletal: muscle tone (normal) Extremities: edema (bilateral) Neurological: other (No focal deficits) Labs Result Diagram: 02/12/19 0449 02/13/19 0745 Results 24hrs Laboratory Tests Test 02/12/19 20:20 02/13/19 01:02 02/13/19 05:10 02/13/19 07:45 Bedside Glucose 131 154 148 Sodium Level 138 Potassium Level 3.7 Chloride Level 103 Carbon Dioxide Level 29 Anion Gap 6 Blood Urea Nitrogen 14 Creatinine 0.78 Est Glomerular Filtrat > 60 Rate mL/min Glucose Level 150 Calcium Level 8.4 Phosphorus Level 3.0 Magnesium Level 2.0 Test 02/13/19 09:41 02/13/19 12:37 Bedside Glucose 157 155 Medications Medications Current Medications Hydralazine HCl (Apresoline) 10 mg Q4H PRN IV >150/95 Last administered on 01/24/19at 05:34; Admin Dose 10 MG; Start 01/21/19 at 14:00 Metoprolol Tartrate (Lopressor) 5 mg Q4H PRN IV HR>110 HOld SBP<100 Last administered on 02/13/19 06:22; Admin Dose 5 MG; Start 01/23/19 at 20:30 Levalbuterol (Xopenex Neb) 0.63 mg Q6H RESP THERAPY HHN Last administered on 02/13/19at 14:15; Admin Dose 0.63 MG; Start 01/24/19 at 23:30 Acetaminophen (Tylenol Tab) 650 mg Q6H PRN PO MILD PAIN(1-3)OR ELEVATED TEMP Last administered on 02/10/19at 21:54; Admin Dose 650 MG; Start 01/29/19 at 23:30 Al Hydrox/Mg Hydrox/Simethicone (Mag-Al Plus) 30 ml Q4H PRN PO GASTROINTESTINAL UPSET Last administered on 01/30/19 18:39; Admin Dose 30 ML; Start 01/29/19 at 23:30 Atenolol (Tenormin) 50 mg BID PO Last administered on 02/13/19 09:45; Admin Dose 50 MG; Start 01/30/19 at 21:00 Cefepime HCl 50 ml @ 100 mls/hr Q12 IVPB Last administered on 02/13/19 10:56; Admin Dose 100 MLS/HR; Start 02/04/19 at 14:00 Metronidazole 100 ml @ 100 mls/hr Q8 IVPB Last administered on 02/13/19 15:13; Admin Dose 100 MLS/HR; Start 02/04/19 at 14:00 Furosemide (Lasix) 20 mg BID DIURETICS IV Last administered on 02/13/19 05:12; Admin Dose 20 MG; Start 02/06/19 at 18:00 Morphine Sulfate (morphine) 2 mg Q2H PRN IV PAIN LEVEL 6-10; Start 02/11/19 at 16:30 Acetaminophen/ Hydrocodone Bitart ([place] (5/325)) 1 tab Q6H PRN PO PAIN LEVEL 6-10; Start 02/11/19 at 16:30 Diagnostic Test (Pha) (Accu-Chek) 1 ea Q4 XX Last administered on 02/13/19 12:38; Admin Dose 1 EA; Start 02/11/19 at 17:00 Total Parenteral Nutrition 1,000 ml @ 50 mls/hr Q20H IV Last administered on 02/13/19 11:15; Admin Dose 50 MLS/HR; Start 02/12/19 at 16:00 Fat Emulsion Intravenous 250 ml @ 20.833 mls/ hr Q24H IV Last administered on 02/13/19 15:13; Admin Dose 20.833 MLS/HR; Start 02/12/19 at 16:00 Miscellaneous Information (* Miscellaneous Pharmacy Order) DURAMORPH: 0.2 MG SPI... GIVEN NEURAXIAL XX ; Start 02/11/19 at 16:30 Fluconazole 100 ml @ 100 mls/hr Q24H IVPB Last administered on 02/13/19 12:36; Admin Dose 100 MLS/HR; Start 02/12/19 at 12:30 Nystatin (Nystatin Susp) 5 ml QID PO Last administered on 02/13/19 12:36; Admin Dose 5 ML; Start 02/12/19 at 13:00 EUGENE ANDERSON February 13, 2019 16:40
[2019-02-14] VITALS (14 sets, daily range): BP systolic 115–152; BP diastolic 77–89; PULSE 82–179; RESP 18–20
[2019-02-14] MEDS: ACCU-CHEK XX SCH ×6 (01:00→21:48)
[2019-02-14] MEDS: LEVALBUTEROL (NEB) 0.63 MG/3 ML AMP HHN SCH ×4 (01:26→20:06)
[2019-02-14] MEDS: FUROSEMIDE 20 MG INJ IV SCH ×2 (06:18→17:46)
[2019-02-14] MEDS: metroNIDAZOLE 500 MG/NS (PMX) 100 ML IVPB SCH ×3 (06:19→21:46)
[2019-02-14] MEDS: TPN 1,000 ML IV SCH (08:42)
[2019-02-14] MEDS: CEFEPIME 2GM/50 ML (PMX) 50 ML IVPB SCH ×2 (09:38→21:43)
[2019-02-14] MEDS: ATENOLOL 50 MG TAB PO SCH ×2 (09:41→21:46)
[2019-02-14] MEDS: NYSTATIN SUSP 5 ML CUP PO SCH ×4 (09:41→21:45)
--- NOTE | 2019-02-14 11:47 | PN ---
Date/Time of Note Date/Time of Note DATE: 02/14/19 TIME: 11:46 Assessment/Plan VTE Prophylaxis Risk score (from Ns)>0 risk: 7 SCD applied (from Nsg): Yes Pharmacological prophylaxis: other Lines/Catheters IV Catheter Type (from Nrsg): Saline Lock Urinary Cath still in place: Yes Reason Cath still needed: other (indicate) Assessment/Plan Assessment/Plan s/p loop ileostomy for diversion for colorectal anastomotic leak will start soft diet continue TPN for now until nutritional needs are met Result Diagram: 02/12/19 0449 02/14/19 0613 Results 24hrs Laboratory Tests Test 02/13/19 12:37 02/13/19 17:42 02/13/19 20:43 02/14/19 02:07 Bedside Glucose 155 154 131 129 Test 02/14/19 06:13 02/14/19 06:21 02/14/19 08:39 Sodium Level 138 Potassium Level 3.8 Chloride Level 103 Carbon Dioxide Level 31 Anion Gap 4 L Blood Urea Nitrogen 13 Creatinine 0.67 Est Glomerular Filtrat > 60 Rate mL/min Glucose Level 140 Calcium Level 8.7 Phosphorus Level 3.6 Magnesium Level 2.1 Bedside Glucose 150 162 Subjective 24 Hr Interval Summary Free Text/Dictation ileostomy functional patient improving Exam/Review of Systems Exam Vitals Vital Signs Date Temp Pulse Resp B/P (MAP) Pulse Ox O2 O2 Flow FiO2 Time Delivery Rate 02/14/19 99.3 92 20 118/78 94 Room Air 11:32 (91) 02/14/19 2.0 10:36 02/11/19 28 08:15 Intake and Output 02/13/19 02/13/19 02/14/19 1515:00 23:00 07:00 IntakeIntake Total 80 ml OutputOutput Total 5 ml 2000 ml 0 ml BalanceBalance -5 ml -1920 ml 0 ml Exam ileostomy viable and working Results Results 24hrs Laboratory Tests Test 02/13/19 12:37 02/13/19 17:42 02/13/19 20:43 02/14/19 02:07 Bedside Glucose 155 154 131 129 Test 02/14/19 06:13 02/14/19 06:21 02/14/19 08:39 Sodium Level 138 Potassium Level 3.8 Chloride Level 103 Carbon Dioxide Level 31 Anion Gap 4 L Blood Urea Nitrogen 13 Creatinine 0.67 Est Glomerular Filtrat > 60 Rate mL/min Glucose Level 140 Calcium Level 8.7 Phosphorus Level 3.6 Magnesium Level 2.1 Bedside Glucose 150 162 Medications Medication Current Medications Hydralazine HCl (Apresoline) 10 mg Q4H PRN IV >150/95 Last administered on 01/24/19 05:34; Admin Dose 10 MG; Start 01/21/19 at 14:00 Metoprolol Tartrate (Lopressor) 5 mg Q4H PRN IV HR>110 HOld SBP<100 Last administered on 02/13/19 06:22; Admin Dose 5 MG; Start 01/23/19 at 20:30 Levalbuterol (Xopenex Neb) 0.63 mg Q6H RESP THERAPY HHN Last administered on 02/14/19 08:32; Admin Dose 0.63 MG; Start 01/24/19 at 23:30 Acetaminophen (Tylenol Tab) 650 mg Q6H PRN PO MILD PAIN(1-3)OR ELEVATED TEMP Last administered on 02/10/19 21:54; Admin Dose 650 MG; Start 01/29/19 at 23:30 Al Hydrox/Mg Hydrox/Simethicone (Mag-Al Plus) 30 ml Q4H PRN PO GASTROINTESTINAL UPSET Last administered on 01/30/19 18:39; Admin Dose 30 ML; Start 01/29/19 at 23:30 Atenolol (Tenormin) 50 mg BID PO Last administered on 02/14/19 09:41; Admin Dose 50 MG; Start 01/30/19 at 21:00 Cefepime HCl 50 ml @ 100 mls/hr Q12 IVPB Last administered on 02/14/19 09:38; Admin Dose 100 MLS/HR; Start 02/04/19 at 14:00 Metronidazole 100 ml @ 100 mls/hr Q8 IVPB Last administered on 02/14/19 06:19; Admin Dose 100 MLS/HR; Start 02/04/19 at 14:00 Furosemide (Lasix) 20 mg BID DIURETICS IV Last administered on 02/14/19 06:18; Admin Dose 20 MG; Start 02/06/19 at 18:00 Morphine Sulfate (morphine) 2 mg Q2H PRN IV PAIN LEVEL 6-10; Start 02/11/19 at 16:30 Acetaminophen/ Hydrocodone Bitart ([place] (5/325)) 1 tab Q6H PRN PO PAIN LEVEL 6-10; Start 02/11/19 at 16:30 Diagnostic Test (Pha) (Accu-Chek) 1 ea Q4 XX Last administered on 02/14/19at 09:41; Admin Dose 1 EA; Start 02/11/19 at 17:00 Total Parenteral Nutrition 1,000 ml @ 50 mls/hr Q20H IV Last administered on 02/14/19at 08:42; Admin Dose 50 MLS/HR; Start 02/12/19 at 16:00 Fat Emulsion Intravenous 250 ml @ 20.833 mls/ hr Q24H IV Last administered on 02/13/19at 15:13; Admin Dose 20.833 MLS/HR; Start 02/12/19 at 16:00 Miscellaneous Information (* Miscellaneous Pharmacy Order) DURAMORPH: 0.2 MG SPI... GIVEN NEURAXIAL XX ; Start 02/11/19 at 16:30 Fluconazole 100 ml @ 100 mls/hr Q24H IVPB Last administered on 02/13/19at 12:36; Admin Dose 100 MLS/HR; Start 02/12/19 at 12:30 Nystatin (Nystatin Susp) 5 ml QID PO Last administered on 02/14/19 09:41; Admin Dose 5 ML; Start 02/12/19 at 13:00 Ann FERNANDEZ February 14, 2019 11:47
--- NOTE | 2019-02-14 12:38 | CONS ---
[facility] HCIS Consult Follow-up Patient Name: Santiago Kelly Unit Number: [id number] Date of : 1960 Patient Status: Admitted Inpatient Attending Doctor: Michoacano Fox MD Edit: MERCED RENNER M.D. on 02/14/19 @ 20:27 Zurdo: I discussed the management with BRENDAN Bañuelos and agree Assessment/Plan Assessment/Plan Hospital Course (Demo Recall) assessment/impression # sepsis, respiratory - sepsis due to complicated intra-abdominal infection and pneumonia - pleural effusion, exudative process, parapneumonic effusion LDH 1601 protein 3.2, no e/o malignancy on cytology - s/p R sided thoracentesis on 02/05/2019 - VIJAY # GI, onc - s/p ex lap, washout of abdominal abscess, CLEVE, diverting loop ileostomy on 02/11/2019 - s/p open Reagan reversal and colorectal low pelvic anastomosis, segmental partial colectomy, and open incarcerated incisional and parastomal hernia repairs with mesh by Dr. Art on 01/21/2019 - thrush - follow up CT on 02/04/2019 did not identify definite point of leak--> anastomotic leak was identified on gastograffin - s/p CT guided drainage of abscess in LLQ on 02/01/2019 - abdominal wound culture 01/30/19 and abscess culture 01/31/19 grew pseudomonas, joseline albicans and glabrata - s/p colostomy reversal - stage III sigmoid colon cancer, status post prior colectomy/colostomy and chemo in 2018 # renal, cardiovascular - acute kidney injury on chronic kidney disease - acute on chronic diastolic CHF - atrial fibrillation. - Hx hypertension - Hx left upper extremity DVT - superficial thrombus in R cephalic vein in the forearm and in L cephalic vein in the antecubital fossa as visualized on NOY 02/05/2019 # other conditions - R conjunctivitis, resolved after neomycin eye drop x 7 days recommendations: - pending results: fluid from RUDDY #1 for cultures of aerobic and anaerobic bacteria and fungi - continue cefepime and metronidazole (02/04/2019-), fluconazole (01/30/2019-). Pt previously took meropenem (01/30/2019-02/03/2019) - continue nystatin for thrush (02/12/2019-) Management d/w patient, CATHERINE Cain, and with Dr. Renner Consultation Date/Type/Reason Admit Date/Time Jan 21, 2019 at 06:18 Initial Consult Date 01/30/19 Type of Consult Infectious Disease Requesting Provider: ODELL PACHECO Date/Time of Note DATE: 02/14/19 TIME: 12:35 24 HR Interval Summary Free Text/Dictation Pt denies pain, n/v, or SOB. Planning to DC [place] today per d/w nursing. Exam/Review of Systems Exam Vitals Vital Signs Date Temp Pulse Resp B/P (MAP) Pulse Ox O2 O2 Flow FiO2 Time Delivery Rate 02/14/19 99.3 92 20 118/78 94 Room Air 11:32 (91) 02/14/19 2.0 10:36 02/11/19 28 08:15 Intake and Output 02/13/19 02/13/19 02/14/19 1515:00 23:00 07:00 IntakeIntake Total 80 ml OutputOutput Total 5 ml 2000 ml 0 ml BalanceBalance -5 ml -1920 ml 0 ml Exam Constitutional: alert, oriented, well developed, frail, obese Psych: nl mood/affect Head: normocephalic, atraumatic Eyes: nl conjunctiva, nl lids, nl sclera ENMT: nl external ears & nose, nl lips & teeth, nl nasal mucosa & septum, mucosa pink and moist (no thrush) Neck: supple Respiratory: clear to auscultation, diminished breath sounds (at bases, R>L), other (On O2 at 2L via NC) Cardiovascular: nl pulses, other (irregularly irregular) Gastrointestinal: soft, distended, surgical scars, other (+ileostomy bag with stool; JPs x2 and accordion drain) Genitourinary-Male: other (+FC with migdalia urine) Musculoskeletal: nl extremities to inspection Extremities: normal pulses, edema (trace pretibial/pedal) Neurological: nl mental status, nl speech (Speech accented; Primarily [place] speaking) Skin: nl turgor, other (ML abdominal dressing c/d/i) Results Result Diagram: 02/12/19 0449 02/14/19 0613 Results 24hrs Laboratory Tests Test 02/13/19 12:37 02/13/19 17:42 02/13/19 20:43 02/14/19 02:07 Bedside Glucose 155 154 131 129 Test 02/14/19 06:13 02/14/19 06:21 02/14/19 08:39 Sodium Level 138 Potassium Level 3.8 Chloride Level 103 Carbon Dioxide Level 31 Anion Gap 4 L Blood Urea Nitrogen 13 Creatinine 0.67 Est Glomerular Filtrat > 60 Rate mL/min Glucose Level 140 Calcium Level 8.7 Phosphorus Level 3.6 Magnesium Level 2.1 Bedside Glucose 150 162 Medications Medication Current Medications Hydralazine HCl (Apresoline) 10 mg Q4H PRN IV >150/95 Last administered on 01/24/19at 05:34; Admin Dose 10 MG; Start 01/21/19 at 14:00 Metoprolol Tartrate (Lopressor) 5 mg Q4H PRN IV HR>110 HOld SBP<100 Last administered on 02/13/19 06:22; Admin Dose 5 MG; Start 01/23/19 at 20:30 Levalbuterol (Xopenex Neb) 0.63 mg Q6H RESP THERAPY HHN Last administered on 02/14/19 08:32; Admin Dose 0.63 MG; Start 01/24/19 at 23:30 Acetaminophen (Tylenol Tab) 650 mg Q6H PRN PO MILD PAIN(1-3)OR ELEVATED TEMP Last administered on 02/10/19 21:54; Admin Dose 650 MG; Start 01/29/19 at 23:30 Al Hydrox/Mg Hydrox/Simethicone (Mag-Al Plus) 30 ml Q4H PRN PO GASTROINTESTINAL UPSET Last administered on 01/30/19at 18:39; Admin Dose 30 ML; Start 01/29/19 at 23:30 Atenolol (Tenormin) 50 mg BID PO Last administered on 02/14/19 09:41; Admin Dose 50 MG; Start 01/30/19 at 21:00 Cefepime HCl 50 ml @ 100 mls/hr Q12 IVPB Last administered on 02/14/19 09:38; Admin Dose 100 MLS/HR; Start 02/04/19 at 14:00 Metronidazole 100 ml @ 100 mls/hr Q8 IVPB Last administered on 02/14/19 06:19; Admin Dose 100 MLS/HR; Start 02/04/19 at 14:00 Furosemide (Lasix) 20 mg BID DIURETICS IV Last administered on 02/14/19 06:18; Admin Dose 20 MG; Start 02/06/19 at 18:00 Morphine Sulfate (morphine) 2 mg Q2H PRN IV PAIN LEVEL 6-10; Start 02/11/19 at 16:30 Acetaminophen/ Hydrocodone Bitart ([place] (5/325)) 1 tab Q6H PRN PO PAIN LEVEL 6-10; Start 02/11/19 at 16:30 Diagnostic Test (Pha) (Accu-Chek) 1 ea Q4 XX Last administered on 02/14/19 09:41; Admin Dose 1 EA; Start 02/11/19 at 17:00 Total Parenteral Nutrition 1,000 ml @ 50 mls/hr Q20H IV Last administered on 02/14/19 08:42; Admin Dose 50 MLS/HR; Start 02/12/19 at 16:00 Fat Emulsion Intravenous 250 ml @ 20.833 mls/ hr Q24H IV Last administered on 02/13/19 15:13; Admin Dose 20.833 MLS/HR; Start 02/12/19 at 16:00 Miscellaneous Information (* Miscellaneous Pharmacy Order) DURAMORPH: 0.2 MG SPI... GIVEN NEURAXIAL XX ; Start 02/11/19 at 16:30 Fluconazole 100 ml @ 100 mls/hr Q24H IVPB Last administered on 02/13/19 12:36; Admin Dose 100 MLS/HR; Start 02/12/19 at 12:30 Nystatin (Nystatin Susp) 5 ml QID PO Last administered on 02/14/19 09:41; Admin Dose 5 ML; Start 02/12/19 at 13:00 YVETTE BAÑUELOS NP February 14, 2019 12:37
[2019-02-14] MEDS: FLUCONAZOLE 200 MG (PMX) 100 ML IVPB SCH (12:44)
--- NOTE | 2019-02-14 14:11 | CONS ---
Assessment/Plan Assessment/Plan Hospital Course (Demo Recall) IMPRESSION: 1. Tachycardia c/w AF now improved HR control. NL EF by echo 60-65 2. Possible congestive heart failure by chest x-ray with the patient having the onset of acute renal failure at this time. 3. Hypertension 4. Postoperative status post reversal colostomy. 5. Fevers postop. 6. Renal failure, acute.-improved now 7. History of colon carcinoma status post prior colectomy with colostomy with anastomatic leak by abd CT and now post-op s/p repeat surgery with removal abscess and placement of drains 8. Hypernatremia, improved 9. Hypomagnesemia-improved 10. Leukocytosis. Recc: -Tele -Continue PO BB and will start low dose CCB to improve HR control overall -s/p dose IVP digoxin to assure good HR control -Pain control -Continue abx's and f/u cx data -Follow volume status closely and resume IV lasix diuresis -? ability to resume lovenox for AF -routine post-op care -ON TPN Consultation Date/Type/Reason Admit Date/Time Jan 21, 2019 at 06:18 Initial Consult Date 01/23/19 Type of Consult Cardiology Reason for Consultation AF Requesting Provider: ODELL PACHECO Date/Time of Note DATE: 02/14/19 TIME: 14:09 Exam/Review of Systems Vital Signs Vitals Vital Signs Date Temp Pulse Resp B/P (MAP) Pulse Ox O2 O2 Flow FiO2 Time Delivery Rate 02/14/19 2.0 12:51 02/14/19 98 20 94 Nasal 12:51 Cannula 02/14/19 99.3 118/78 11:32 (91) 02/11/19 28 08:15 Intake and Output 02/13/19 02/13/19 02/14/19 1515:00 23:00 07:00 IntakeIntake Total 80 ml OutputOutput Total 5 ml 2000 ml 0 ml BalanceBalance -5 ml -1920 ml 0 ml Exam Exam Review of Systems: CONSTITUTIONAL: No fevers, chills. PULMONARY: No sob CARDIOVASCULAR: No chest pain/palpitations GASTROINTESTINAL: No nausea/vomiting. GENITOURINARY: No hematuria/dysuria. MUSCULOSKELETAL: mild abd pain. PSYCHIATRIC: The patient denies depression. NEUROLOGIC: No weakness Constitutional: alert Psych: no complaints Head: normocephalic ENMT: mucosa pink and moist Neck: supple, jvd (9 cm water) Respiratory: diminished breath sounds (at bases/B) Cardiovascular: irregular rhythm Gastrointestinal: tender (to palpation, covered by dressing) Musculoskeletal: muscle tone (normal) Extremities: edema (none) Neurological: other (No focal deficits) Labs Result Diagram: 02/12/19 0449 02/14/19 0613 Results 24hrs Laboratory Tests Test 02/13/19 17:42 02/13/19 20:43 02/14/19 02:07 02/14/19 06:13 Bedside Glucose 154 131 129 Sodium Level 138 Potassium Level 3.8 Chloride Level 103 Carbon Dioxide Level 31 Anion Gap 4 L Blood Urea Nitrogen 13 Creatinine 0.67 Est Glomerular Filtrat > 60 Rate mL/min Glucose Level 140 Calcium Level 8.7 Phosphorus Level 3.6 Magnesium Level 2.1 Test 02/14/19 06:21 02/14/19 08:39 02/14/19 12:41 Bedside Glucose 150 162 143 Medications Medications Current Medications Hydralazine HCl (Apresoline) 10 mg Q4H PRN IV >150/95 Last administered on 01/24/19 05:34; Admin Dose 10 MG; Start 01/21/19 at 14:00 Metoprolol Tartrate (Lopressor) 5 mg Q4H PRN IV HR>110 HOld SBP<100 Last administered on 02/13/19at 06:22; Admin Dose 5 MG; Start 01/23/19 at 20:30 Levalbuterol (Xopenex Neb) 0.63 mg Q6H RESP THERAPY HHN Last administered on 02/14/19at 12:50; Admin Dose 0.63 MG; Start 01/24/19 at 23:30 Acetaminophen (Tylenol Tab) 650 mg Q6H PRN PO MILD PAIN(1-3)OR ELEVATED TEMP Last administered on 02/10/19at 21:54; Admin Dose 650 MG; Start 01/29/19 at 23:30 Al Hydrox/Mg Hydrox/Simethicone (Mag-Al Plus) 30 ml Q4H PRN PO GASTROINTESTINAL UPSET Last administered on 01/30/19at 18:39; Admin Dose 30 ML; Start 01/29/19 at 23:30 Atenolol (Tenormin) 50 mg BID PO Last administered on 02/14/19 09:41; Admin Dose 50 MG; Start 01/30/19 at 21:00 Cefepime HCl 50 ml @ 100 mls/hr Q12 IVPB Last administered on 02/14/19 09:38; Admin Dose 100 MLS/HR; Start 02/04/19 at 14:00 Metronidazole 100 ml @ 100 mls/hr Q8 IVPB Last administered on 02/14/19 13:47; Admin Dose 100 MLS/HR; Start 02/04/19 at 14:00 Furosemide (Lasix) 20 mg BID DIURETICS IV Last administered on 02/14/19 06:18; Admin Dose 20 MG; Start 02/06/19 at 18:00 Morphine Sulfate (morphine) 2 mg Q2H PRN IV PAIN LEVEL 6-10; Start 02/11/19 at 16:30 Acetaminophen/ Hydrocodone Bitart ([place] (5/325)) 1 tab Q6H PRN PO PAIN LEVEL 6-10; Start 02/11/19 at 16:30 Diagnostic Test (Pha) (Accu-Chek) 1 ea Q4 XX Last administered on 02/14/19 12:42; Admin Dose 1 EA; Start 02/11/19 at 17:00 Total Parenteral Nutrition 1,000 ml @ 50 mls/hr Q20H IV Last administered on 02/14/19 08:42; Admin Dose 50 MLS/HR; Start 02/12/19 at 16:00 Fat Emulsion Intravenous 250 ml @ 20.833 mls/ hr Q24H IV Last administered on 02/13/19 15:13; Admin Dose 20.833 MLS/HR; Start 02/12/19 at 16:00 Miscellaneous Information (* Miscellaneous Pharmacy Order) DURAMORPH: 0.2 MG SPI... GIVEN NEURAXIAL XX ; Start 02/11/19 at 16:30 Fluconazole 100 ml @ 100 mls/hr Q24H IVPB Last administered on 02/14/19 12:44; Admin Dose 100 MLS/HR; Start 02/12/19 at 12:30 Nystatin (Nystatin Susp) 5 ml QID PO Last administered on 02/14/19 12:45; Admin Dose 5 ML; Start 02/12/19 at 13:00 EUGENE ANDERSON February 14, 2019 14:11
[2019-02-14] MEDS: FAT EMULSION 20% 250 ML IV SCH (16:06)
--- NOTE | 2019-02-14 23:25 | PN ---
Date/Time of Note Date/Time of Note DATE: 02/14/19 TIME: 23:24 Assessment/Plan VTE Prophylaxis Risk score (from Nsg)>0 risk: 9 SCD applied (from Nsg): Yes Lines/Catheters IV Catheter Type (from Nrsg): Saline Lock Urinary Cath still in place: Yes Assessment/Plan Result Diagram: 02/12/19 0449 02/14/19 0613 Results 24hrs Laboratory Tests Test 02/14/19 02:07 02/14/19 06:13 02/14/19 06:21 02/14/19 08:39 Bedside Glucose 129 150 162 Sodium Level 138 Potassium Level 3.8 Chloride Level 103 Carbon Dioxide Level 31 Anion Gap 4 L Blood Urea Nitrogen 13 Creatinine 0.67 Est Glomerular Filtrat > 60 Rate mL/min Glucose Level 140 Calcium Level 8.7 Phosphorus Level 3.6 Magnesium Level 2.1 Test 02/14/19 12:41 02/14/19 17:43 02/14/19 21:47 Bedside Glucose 143 137 176 Exam/Review of Systems Exam Vitals Vital Signs Date Temp Pulse Resp B/P (MAP) Pulse Ox O2 O2 Flow FiO2 Time Delivery Rate 02/14/19 94 20:30 02/14/19 2.0 20:06 02/14/19 18 95 Nasal 20:06 Cannula 02/14/19 99.0 125/77 19:23 (93) 02/11/19 28 08:15 Intake and Output 02/13/19 02/13/19 02/14/19 1515:00 23:00 07:00 IntakeIntake Total 80 ml OutputOutput Total 5 ml 2000 ml 0 ml BalanceBalance -5 ml -1920 ml 0 ml Results Results 24hrs Laboratory Tests Test 02/14/19 02:07 02/14/19 06:13 02/14/19 06:21 02/14/19 08:39 Bedside Glucose 129 150 162 Sodium Level 138 Potassium Level 3.8 Chloride Level 103 Carbon Dioxide Level 31 Anion Gap 4 L Blood Urea Nitrogen 13 Creatinine 0.67 Est Glomerular Filtrat > 60 Rate mL/min Glucose Level 140 Calcium Level 8.7 Phosphorus Level 3.6 Magnesium Level 2.1 Test 02/14/19 12:41 02/14/19 17:43 02/14/19 21:47 Bedside Glucose 143 137 176 Medications Medication Current Medications Hydralazine HCl (Apresoline) 10 mg Q4H PRN IV >150/95 Last administered on 01/14 05:34; Admin Dose 10 MG; Start 01/21/19 at 14:00 Metoprolol Tartrate (Lopressor) 5 mg Q4H PRN IV HR>110 HOld SBP<100 Last administered on 02/13/19 06:22; Admin Dose 5 MG; Start 01/23/19 at 20:30 Levalbuterol (Xopenex Neb) 0.63 mg Q6H RESP THERAPY HHN Last administered on 02/14/19 20:06; Admin Dose 0.63 MG; Start 01/24/19 at 23:30 Acetaminophen (Tylenol Tab) 650 mg Q6H PRN PO MILD PAIN(1-3)OR ELEVATED TEMP Last administered on 02/10/19 21:54; Admin Dose 650 MG; Start 01/29/19 at 23:30 Al Hydrox/Mg Hydrox/Simethicone (Mag-Al Plus) 30 ml Q4H PRN PO GASTROINTESTINAL UPSET Last administered on 01/30/19 18:39; Admin Dose 30 ML; Start 01/29/19 at 23:30 Atenolol (Tenormin) 50 mg BID PO Last administered on 02/14/19 21:46; Admin Dose 50 MG; Start 01/30/19 at 21:00 Cefepime HCl 50 ml @ 100 mls/hr Q12 IVPB Last administered on 02/14/19 21:43; Admin Dose 100 MLS/HR; Start 02/04/19 at 14:00 Metronidazole 100 ml @ 100 mls/hr Q8 IVPB Last administered on 02/14/19 21:46; Admin Dose 100 MLS/HR; Start 02/04/19 at 14:00 Furosemide (Lasix) 20 mg BID DIURETICS IV Last administered on 02/14/19 17:46; Admin Dose 20 MG; Start 02/06/19 at 18:00 Morphine Sulfate (morphine) 2 mg Q2H PRN IV PAIN LEVEL 6-10; Start 02/11/19 at 16:30 Acetaminophen/ Hydrocodone Bitart ([place] (5/325)) 1 tab Q6H PRN PO PAIN LEVEL 6-10; Start 02/11/19 at 16:30 Diagnostic Test (Pha) (Accu-Chek) 1 ea Q4 XX Last administered on 02/14/19at 21:48; Admin Dose 1 EA; Start 02/11/19 at 17:00 Total Parenteral Nutrition 1,000 ml @ 50 mls/hr Q20H IV Last administered on 02/14/19at 08:42; Admin Dose 50 MLS/HR; Start 02/12/19 at 16:00 Fat Emulsion Intravenous 250 ml @ 20.833 mls/ hr Q24H IV Last administered on 02/14/19at 16:06; Admin Dose 20.833 MLS/HR; Start 02/12/19 at 16:00 Miscellaneous Information (* Miscellaneous Pharmacy Order) DURAMORPH: 0.2 MG SPI... GIVEN NEURAXIAL XX ; Start 02/11/19 at 16:30 Fluconazole 100 ml @ 100 mls/hr Q24H IVPB Last administered on 02/14/19at 12:44; Admin Dose 100 MLS/HR; Start 02/12/19 at 12:30 Nystatin (Nystatin Susp) 5 ml QID PO Last administered on 02/14/19at 21:45; Admin Dose 5 ML; Start 02/12/19 at 13:00 Diltiazem HCl (Cardizem Cd) 120 mg DAILY@2100 PO ; Start 02/15/19 at 21:00 LUIS HARDWICK February 14, 2019 23:25
[2019-02-15] VITALS (12 sets, daily range): BP systolic 113–128; BP diastolic 63–84; PULSE 86–104; RESP 20
[2019-02-15] MEDS: ACCU-CHEK XX SCH ×4 (00:52→17:39)
[2019-02-15] MEDS: LEVALBUTEROL (NEB) 0.63 MG/3 ML AMP HHN SCH ×4 (01:20→19:44)
[2019-02-15] MEDS: TPN 1,000 ML IV SCH ×2 (03:36→22:30)
[2019-02-15] MEDS: FUROSEMIDE 20 MG INJ IV SCH ×2 (05:56→17:39)
[2019-02-15] MEDS: metroNIDAZOLE 500 MG/NS (PMX) 100 ML IVPB SCH ×3 (05:57→22:01)
[2019-02-15] MEDS: NYSTATIN SUSP 5 ML CUP PO SCH ×4 (08:17→22:00)
[2019-02-15] MEDS: ATENOLOL 50 MG TAB PO SCH ×2 (08:19→22:01)
[2019-02-15] MEDS: CEFEPIME 2GM/50 ML (PMX) 50 ML IVPB SCH ×2 (08:19→22:06)
[2019-02-15] MEDS: METOPROLOL 5 MG INJ IV PRN (08:21)
--- NOTE | 2019-02-15 08:56 | PN ---
Date/Time of Note Date/Time of Note DATE: 02/15/19 TIME: 08:53 Assessment/Plan VTE Prophylaxis Risk score (from Nsg)>0 risk: 9 SCD applied (from Nsg): Yes Lines/Catheters IV Catheter Type (from Nrsg): Peripheral IV Urinary Cath still in place: Yes Reason Cath still needed: urinary retention Assessment/Plan Assessment/Plan - SP exploratory laparotomy; anastomotic leak and abscess -Increased leukocytosis patient is currently on Zosyn and Flagyl, CT of the abdomen and pelvis revealed moderate ascites, questionable peritonitis or abscess increased right lower lobe infiltrate. - per Dr. Vázquez following in infection disease consultation. -Possible surgical wound infection, obtain wound cx. -Right lower lobe infiltrate -S/p open Reagan reversal and colorectal low pelvic anastomosis, segmental partial colectomy, and open incarcerated incisional and parastomal hernia repairs with mesh by Dr. Art on 01/21/2019. Continue [place] and Dilaudid as needed for pain and Zofran as needed for nausea. -Stage III sigmoid colon cancer, status post surgery and chemo in 2018. -Acute kidney injury on chronic kidney disease, monitor urine output BUN and creatinine. Dr. Stuart is following in nephrology consultation. -Acute on chronic diastolic CHF -Atrial fibrillation. -Obstructive sleep apnea -History of hypertension -History of left upper extremity DVT Total Critical care time spent is [address] Fox Result Diagram: 02/12/19 0449 02/14/19 0613 Results 24hrs Laboratory Tests Test 02/14/19 12:41 02/14/19 17:43 02/14/19 21:47 02/15/19 00:52 Bedside Glucose 143 137 176 145 Test 02/15/19 06:05 02/15/19 08:16 Bedside Glucose 134 142 Subjective 24 Hr Interval Summary Free Text/Dictation feel better today Exam/Review of Systems Exam Vitals Vital Signs Date Temp Pulse Resp B/P (MAP) Pulse Ox O2 O2 Flow FiO2 Time Delivery Rate 02/15/19 87 18 97 Nasal 2.0 08:40 Cannula 02/15/19 98.6 113/63 08:06 (80) 02/11/19 28 08:15 Intake and Output 02/14/19 02/14/19 02/15/19 1515:00 23:00 07:00 IntakeIntake Total 310 ml 970 ml OutputOutput Total 4500 ml 2300 ml 1250 ml BalanceBalance -4500 ml -1990 ml -280 ml Results Results 24hrs Laboratory Tests Test 02/14/19 12:41 02/14/19 17:43 02/14/19 21:47 02/15/19 00:52 Bedside Glucose 143 137 176 145 Test 02/15/19 06:05 02/15/19 08:16 Bedside Glucose 134 142 Medications Medication Current Medications Hydralazine HCl (Apresoline) 10 mg Q4H PRN IV >150/95 Last administered on 01/24/19 05:34; Admin Dose 10 MG; Start 01/21/19 at 14:00 Metoprolol Tartrate (Lopressor) 5 mg Q4H PRN IV HR>110 HOld SBP<100 Last administered on 02/15/19 08:21; Admin Dose 5 MG; Start 01/23/19 at 20:30 Levalbuterol (Xopenex Neb) 0.63 mg Q6H RESP THERAPY HHN Last administered on 02/15/19 08:37; Admin Dose 0.63 MG; Start 01/24/19 at 23:30 Acetaminophen (Tylenol Tab) 650 mg Q6H PRN PO MILD PAIN(1-3)OR ELEVATED TEMP Last administered on 02/10/19 21:54; Admin Dose 650 MG; Start 01/29/19 at 23:30 Al Hydrox/Mg Hydrox/Simethicone (Mag-Al Plus) 30 ml Q4H PRN PO GASTROINTESTINAL UPSET Last administered on 01/30/19 18:39; Admin Dose 30 ML; Start 01/29/19 at 23:30 Atenolol (Tenormin) 50 mg BID PO Last administered on 02/15/19 08:19; Admin Dose 50 MG; Start 01/30/19 at 21:00 Cefepime HCl 50 ml @ 100 mls/hr Q12 IVPB Last administered on 02/15/19 08:19; Admin Dose 100 MLS/HR; Start 02/04/19 at 14:00 Metronidazole 100 ml @ 100 mls/hr Q8 IVPB Last administered on 02/15/19 05:57; Admin Dose 100 MLS/HR; Start 02/04/19 at 14:00 Furosemide (Lasix) 20 mg BID DIURETICS IV Last administered on 02/15/19at 05:56; Admin Dose 20 MG; Start 02/06/19 at 18:00 Morphine Sulfate (morphine) 2 mg Q2H PRN IV PAIN LEVEL 6-10; Start 02/11/19 at 16:30 Acetaminophen/ Hydrocodone Bitart ([place] (5/325)) 1 tab Q6H PRN PO PAIN LEVEL 6-10; Start 02/11/19 at 16:30 Total Parenteral Nutrition 1,000 ml @ 50 mls/hr Q20H IV Last administered on 02/15/19at 03:36; Admin Dose 50 MLS/HR; Start 02/12/19 at 16:00 Fat Emulsion Intravenous 250 ml @ 20.833 mls/ hr Q24H IV Last administered on 02/14/19at 16:06; Admin Dose 20.833 MLS/HR; Start 02/12/19 at 16:00 Miscellaneous Information (* Miscellaneous Pharmacy Order) DURAMORPH: 0.2 MG SPI... GIVEN NEURAXIAL XX ; Start 02/11/19 at 16:30 Fluconazole 100 ml @ 100 mls/hr Q24H IVPB Last administered on 02/14/19at 12:44; Admin Dose 100 MLS/HR; Start 02/12/19 at 12:30 Nystatin (Nystatin Susp) 5 ml QID PO Last administered on 02/15/19at 08:17; Admin Dose 5 ML; Start 02/12/19 at 13:00 Diltiazem HCl (Cardizem Cd) 120 mg DAILY@2100 PO ; Start 02/15/19 at 21:00 Diagnostic Test (Pha) (Accu-Chek) 1 ea Q6 XX ; Start 02/15/19 at 12:00 LUIS HARDWICK February 15, 2019 08:56
[2019-02-15] MEDS: FLUCONAZOLE 200 MG (PMX) 100 ML IVPB SCH (14:22)
--- NOTE | 2019-02-15 14:48 | CONS ---
Assessment/Plan Assessment/Plan Hospital Course (Demo Recall) IMPRESSION: 1. Tachycardia c/w AF now improved HR control. NL EF by echo 60-65 2. Possible congestive heart failure by chest x-ray with the patient having the onset of acute renal failure at this time. 3. Hypertension 4. Postoperative status post reversal colostomy. 5. Fevers postop. 6. Renal failure, acute.-improved now 7. History of colon carcinoma status post prior colectomy with colostomy with anastomatic leak by abd CT and now post-op s/p repeat surgery with removal abscess and placement of drains 8. Hypernatremia, improved 9. Hypomagnesemia-improved 10. Leukocytosis. Recc: -Tele -Continue PO BB and now CCB and f/u HR after recieving new CCB -s/p dose IVP digoxin to assure good HR control -Pain control -Continue abx's and f/u cx data -Follow volume status closely with ongoing lasix -? ability to resume lovenox for AF -routine post-op care -ON TPN Consultation Date/Type/Reason Admit Date/Time Jan 21, 2019 at 06:18 Initial Consult Date 01/23/19 Type of Consult Cardiology Reason for Consultation tachycardia Requesting Provider: ODELL PACHECO Date/Time of Note DATE: 02/15/19 TIME: 14:45 Exam/Review of Systems Vital Signs Vitals Vital Signs Date Temp Pulse Resp B/P (MAP) Pulse Ox O2 O2 Flow FiO2 Time Delivery Rate 02/15/19 2.0 14:04 02/15/19 96 18 Nasal 14:02 Cannula 02/15/19 98.3 116/75 98 12:09 (89) 02/11/19 28 08:15 Intake and Output 02/14/19 02/14/19 02/15/19 1515:00 23:00 07:00 IntakeIntake Total 310 ml 970 ml OutputOutput Total 4500 ml 2300 ml 1250 ml BalanceBalance -4500 ml -1990 ml -280 ml Exam Exam Review of Systems: CONSTITUTIONAL: No fevers, chills. PULMONARY: No sob CARDIOVASCULAR: No chest pain/palpitations GASTROINTESTINAL: mild abd pain GENITOURINARY: No hematuria/dysuria. MUSCULOSKELETAL: No myagias/arthalgias. PSYCHIATRIC: The patient denies depression. NEUROLOGIC: No weakness Constitutional: alert Psych: no complaints Head: normocephalic ENMT: mucosa pink and moist Neck: supple, jvd (9 cm water) Respiratory: diminished breath sounds (at bases/B) Cardiovascular: irregular rhythm Gastrointestinal: other (covered by dressing) Musculoskeletal: muscle weakness (generalized) Extremities: edema (trace/B) Neurological: other (No focal deficits) Labs Result Diagram: 02/12/19 0449 02/14/19 0613 Results 24hrs Laboratory Tests Test 02/14/19 17:43 02/14/19 21:47 02/15/19 00:52 02/15/19 06:05 Bedside Glucose 137 176 145 134 Test 02/15/19 08:16 02/15/19 12:20 02/15/19 13:57 Bedside Glucose 142 139 White Blood Count Pending Red Blood Count Pending Hemoglobin Pending Hematocrit Pending Mean Corpuscular Volume Pending Mean Corpuscular Pending Hemoglobin Mean Corpuscular Pending Hemoglobin Concent Red Cell Distribution Pending Width Platelet Count Pending Mean Platelet Volume Pending Medications Medications Current Medications Hydralazine HCl (Apresoline) 10 mg Q4H PRN IV >150/95 Last administered on 01/24/19at 05:34; Admin Dose 10 MG; Start 01/21/19 at 14:00 Metoprolol Tartrate (Lopressor) 5 mg Q4H PRN IV HR>110 HOld SBP<100 Last administered on 02/15/19 08:21; Admin Dose 5 MG; Start 01/23/19 at 20:30 Levalbuterol (Xopenex Neb) 0.63 mg Q6H RESP THERAPY HHN Last administered on at 14:00; Admin Dose 0.63 MG; Start 01/24/19 at 23:30 Acetaminophen (Tylenol Tab) 650 mg Q6H PRN PO MILD PAIN(1-3)OR ELEVATED TEMP Last administered on 02/10/19at 21:54; Admin Dose 650 MG; Start 01/29/19 at 23:30 Al Hydrox/Mg Hydrox/Simethicone (Mag-Al Plus) 30 ml Q4H PRN PO GASTROINTESTINAL UPSET Last administered on 01/30/19at 18:39; Admin Dose 30 ML; Start 01/29/19 at 23:30 Atenolol (Tenormin) 50 mg BID PO Last administered on 02/15/19 08:19; Admin Dose 50 MG; Start 01/30/19 at 21:00 Cefepime HCl 50 ml @ 100 mls/hr Q12 IVPB Last administered on 02/15/19at 08:19; Admin Dose 100 MLS/HR; Start 02/04/19 at 14:00 Metronidazole 100 ml @ 100 mls/hr Q8 IVPB Last administered on 02/15/19at 13:14; Admin Dose 100 MLS/HR; Start 02/04/19 at 14:00 Furosemide (Lasix) 20 mg BID DIURETICS IV Last administered on 02/15/19at 05:56; Admin Dose 20 MG; Start 02/06/19 at 18:00 Morphine Sulfate (morphine) 2 mg Q2H PRN IV PAIN LEVEL 6-10; Start 02/11/19 at 16:30 Acetaminophen/ Hydrocodone Bitart ([place] (5/325)) 1 tab Q6H PRN PO PAIN LEVEL 6-10; Start 02/11/19 at 16:30 Total Parenteral Nutrition 1,000 ml @ 50 mls/hr Q20H IV Last administered on 02/15/19at 03:36; Admin Dose 50 MLS/HR; Start 02/12/19 at 16:00 Fat Emulsion Intravenous 250 ml @ 20.833 mls/ hr Q24H IV Last administered on 02/14/19at 16:06; Admin Dose 20.833 MLS/HR; Start 02/12/19 at 16:00 Miscellaneous Information (* Miscellaneous Pharmacy Order) DURAMORPH: 0.2 MG SPI... GIVEN NEURAXIAL XX ; Start 02/11/19 at 16:30 Fluconazole 100 ml @ 100 mls/hr Q24H IVPB Last administered on 02/15/19at 14:22; Admin Dose 100 MLS/HR; Start 02/12/19 at 12:30 Nystatin (Nystatin Susp) 5 ml QID PO Last administered on 02/15/19at 12:21; Admin Dose 5 ML; Start 02/12/19 at 13:00 Diltiazem HCl (Cardizem Cd) 120 mg DAILY@2100 PO ; Start 02/15/19 at 21:00 Diagnostic Test (Pha) (Accu-Chek) 1 ea Q6 XX Last administered on 02/15/19at 12:20; Admin Dose 1 EA; Start 02/15/19 at 12:00 EUGENE ANDERSON February 15, 2019 14:48
[2019-02-15] MEDS: FAT EMULSION 20% 250 ML IV SCH (16:10)
--- NOTE | 2019-02-15 18:43 | CONS ---
Assessment/Plan Assessment/Plan Hospital Course (Demo Recall) assessment/impression # sepsis, respiratory - sepsis due to complicated intra-abdominal infection and pneumonia, improved - pleural effusion, exudative process, parapneumonic effusion LDH 1601 protein 3.2, no e/o malignancy on cytology - s/p R sided thoracentesis on 02/05/2019 - VIJAY # GI, onc - s/p ex lap, washout of abdominal abscess, CLEVE, diverting loop ileostomy on 02/11/2019 - s/p open Reagan reversal and colorectal low pelvic anastomosis, segmental partial colectomy, and open incarcerated incisional and parastomal hernia repairs with mesh by Dr. Art on 01/21/2019 - thrush - follow up CT on 02/04/2019 did not identify definite point of leak--> anastomotic leak was identified on gastograffin - s/p CT guided drainage of abscess in LLQ on 02/01/2019 - Abdominal wound culture 01/30/19 and abscess culture 01/31/19 grew pseudomonas, joseline albicans and glabrata - S/p colostomy reversal - Stage III sigmoid colon cancer, status post prior colectomy/colostomy and chemo in 2018 # renal, cardiovascular - Acute kidney injury on chronic kidney disease - Acute on chronic diastolic CHF - Atrial fibrillation. - Hx hypertension - Hx left upper extremity DVT - Superficial thrombus in R cephalic vein in the forearm and in L cephalic vein in the antecubital fossa as visualized on NOY 02/05/2019 # other conditions - R conjunctivitis, resolved after neomycin eye drop x 7 days recommendations: - pending results: fluid from RUDDY #1 for cultures of aerobic and anaerobic bacteria and fungi - ordered: procalcitonin in AM - continue cefepime and metronidazole (02/04/2019-), fluconazole (01/30/2019-). Pt previously took meropenem (01/30/2019-02/03/2019) - if Pt continues to improve, will de-escalate his antibiotics - continue nystatin for thrush (02/12/2019-) - I recommend PT/OT - management d/w Pt, his Consultation Date/Type/Reason Admit Date/Time Jan 21, 2019 at 06:18 Initial Consult Date 01/30/19 Type of Consult ID Requesting Provider: ODELL PACHECO Date/Time of Note DATE: 02/15/19 TIME: 18:40 24 HR Interval Summary Constitutional: other (feel weak) Detailed Summary Eyes: no complaints ENT: no complaints Respiratory: cough, sputum; No pleuritic pain, No shortness of breath Cardiovascular: no complaints Gastrointestinal: passing stool (+ostomy bag); No pain, No nausea Genitourinary: other (+uses a urinal) Musculoskeletal: other (has not got out of bed) Neurologic: no complaints Exam/Review of Systems Exam Vitals Vital Signs Date Temp Pulse Resp B/P (MAP) Pulse Ox O2 O2 Flow FiO2 Time Delivery Rate 02/15/19 100 16:17 02/15/19 98.9 20 125/73 97 Nasal 15:22 (90) Cannula 02/15/19 2.0 14:04 02/11/19 28 08:15 Intake and Output 02/14/19 02/14/19 02/15/19 1515:00 23:00 07:00 IntakeIntake Total 310 ml 970 ml OutputOutput Total 4500 ml 2300 ml 1250 ml BalanceBalance -4500 ml -1990 ml -280 ml Constitutional: alert, oriented Psych: no complaints, nl mood/affect Head: normocephalic, atraumatic Eyes: nl conjunctiva, nl lids, nl sclera ENMT: nl external ears & nose, nl nasal mucosa & septum, mucosa pink and moist Neck: other (not swollen) Respiratory: congested cough, crackles/rales Cardiovascular: regular rate and rhythm, nl pulses Gastrointestinal: soft, distended, surgical scars, other (+RUDDY drain and ostomy bag); No tender Genitourinary - Male: other (no Carrillo) Musculoskeletal: nl extremities to inspection Extremities: No edema Neurological: ULTRASOUND MANAGER II-XII intact, nl mental status, nl speech Skin: nl turgor; No rash or lesions Results Result Diagram: 02/15/19 1357 02/15/19 1357 Results 24hrs Laboratory Tests Test 02/14/19 21:47 02/15/19 00:52 02/15/19 06:05 02/15/19 08:16 Bedside Glucose 176 145 134 142 Test 02/15/19 12:20 02/15/19 13:57 02/15/19 17:38 Bedside Glucose 139 142 White Blood Count 8.6 # Red Blood Count 3.21 L Hemoglobin 9.4 L Hematocrit 29.0 L Mean Corpuscular Volume 90.3 Mean Corpuscular 29.3 Hemoglobin Mean Corpuscular 32.4 Hemoglobin Concent Red Cell Distribution 13.8 Width Platelet Count 258 Mean Platelet Volume 11.1 H Immature Granulocytes % 0.800 H Neutrophils % 83.4 H Lymphocytes % 6.3 L Monocytes % 7.2 Eosinophils % 2.1 Basophils % 0.2 Nucleated Red Blood 0.0 Cells % Immature Granulocytes # 0.070 H Neutrophils # 7.2 Lymphocytes # 0.5 L Monocytes # 0.6 Eosinophils # 0.2 Basophils # 0.0 Nucleated Red Blood 0.0 Cells # Sodium Level 138 Potassium Level 3.7 Chloride Level 101 Carbon Dioxide Level 30 Anion Gap 7 Blood Urea Nitrogen 17 Creatinine 0.68 Est Glomerular Filtrat > 60 Rate mL/min Glucose Level 164 Calcium Level 8.9 Medications Medication Current Medications Hydralazine HCl (Apresoline) 10 mg Q4H PRN IV >150/95 Last administered on 01/24/19at 05:34; Admin Dose 10 MG; Start 01/21/19 at 14:00 Metoprolol Tartrate (Lopressor) 5 mg Q4H PRN IV HR>110 HOld SBP<100 Last administered on 02/15/19 08:21; Admin Dose 5 MG; Start 01/23/19 at 20:30 Levalbuterol (Xopenex Neb) 0.63 mg Q6H RESP THERAPY HHN Last administered on 02/15/19 14:00; Admin Dose 0.63 MG; Start 01/24/19 at 23:30 Acetaminophen (Tylenol Tab) 650 mg Q6H PRN PO MILD PAIN(1-3)OR ELEVATED TEMP Last administered on 02/10/19at 21:54; Admin Dose 650 MG; Start 01/29/19 at 23:30 Al Hydrox/Mg Hydrox/Simethicone (Mag-Al Plus) 30 ml Q4H PRN PO GASTROINTESTINAL UPSET Last administered on 01/30/19at 18:39; Admin Dose 30 ML; Start 01/29/19 at 23:30 Atenolol (Tenormin) 50 mg BID PO Last administered on 02/15/19 08:19; Admin Dose 50 MG; Start 01/30/19 at 21:00 Cefepime HCl 50 ml @ 100 mls/hr Q12 IVPB Last administered on 02/15/19 08:19; Admin Dose 100 MLS/HR; Start 02/04/19 at 14:00 Metronidazole 100 ml @ 100 mls/hr Q8 IVPB Last administered on 02/15/19 13:14; Admin Dose 100 MLS/HR; Start 02/04/19 at 14:00 Furosemide (Lasix) 20 mg BID DIURETICS IV Last administered on 02/15/19 17:39; Admin Dose 20 MG; Start 02/06/19 at 18:00 Morphine Sulfate (morphine) 2 mg Q2H PRN IV PAIN LEVEL 6-10; Start 02/11/19 at 16:30 Acetaminophen/ Hydrocodone Bitart ([place] (5/325)) 1 tab Q6H PRN PO PAIN LEVEL 6-10; Start 02/11/19 at 16:30 Total Parenteral Nutrition 1,000 ml @ 50 mls/hr Q20H IV Last administered on 02/15/19 03:36; Admin Dose 50 MLS/HR; Start 02/12/19 at 16:00 Fat Emulsion Intravenous 250 ml @ 20.833 mls/ hr Q24H IV Last administered on 02/15/19 16:10; Admin Dose 20.833 MLS/HR; Start 02/12/19 at 16:00 Miscellaneous Information (* Miscellaneous Pharmacy Order) DURAMORPH: 0.2 MG SPI... GIVEN NEURAXIAL XX ; Start 02/11/19 at 16:30 Fluconazole 100 ml @ 100 mls/hr Q24H IVPB Last administered on 02/15/19 14:22; Admin Dose 100 MLS/HR; Start 02/12/19 at 12:30 Nystatin (Nystatin Susp) 5 ml QID PO Last administered on 02/15/19 16:10; Admin Dose 5 ML; Start 02/12/19 at 13:00 Diltiazem HCl (Cardizem Cd) 120 mg DAILY@2100 PO ; Start 02/15/19 at 21:00 Diagnostic Test (Pha) (Accu-Chek) 1 ea Q6 XX Last administered on 02/15/19 17:39; Admin Dose 1 EA; Start 02/15/19 at 12:00 Enoxaparin Sodium (Lovenox) 80 mg BID SC ; Start 02/15/19 at 21:00; Status UNV MERCED ESCUDERO M.D. February 15, 2019 18:43
[2019-02-15] MEDS ORDERED: ENOXAPARIN 80 MG/0.8 ML SYG SC SCH (21:00)
[2019-02-15] MEDS: DILTIAZEM (CD) 120 MG CAP PO SCH (22:01)
[2019-02-16] VITALS (10 sets, daily range): BP systolic 105–135; BP diastolic 60–78; PULSE 68–123; RESP 20
[2019-02-16] MEDS: ACCU-CHEK XX SCH ×5 (00:40→23:33)
[2019-02-16] MEDS: LEVALBUTEROL (NEB) 0.63 MG/3 ML AMP HHN SCH ×4 (01:38→19:40)
[2019-02-16] MEDS: FUROSEMIDE 20 MG INJ IV SCH (05:12)
[2019-02-16] MEDS: metroNIDAZOLE 500 MG/NS (PMX) 100 ML IVPB SCH ×2 (05:12→14:28)
[2019-02-16] MEDS: ATENOLOL 50 MG TAB PO SCH ×2 (09:00→20:06)
[2019-02-16] MEDS: CEFEPIME 2GM/50 ML (PMX) 50 ML IVPB SCH ×2 (09:29→20:07)
[2019-02-16] MEDS: NYSTATIN SUSP 5 ML CUP PO SCH ×4 (09:31→20:06)
--- NOTE | 2019-02-16 12:07 | PN ---
Date/Time of Note Date/Time of Note DATE: 02/16/19 TIME: 12:06 Assessment/Plan VTE Prophylaxis Risk score (from Ns)>0 risk: 11 SCD applied (from Ns): Yes Pharmacological prophylaxis: LMWH Lines/Catheters IV Catheter Type (from [facility]): Peripheral IV Urinary Cath still in place: Yes Reason Cath still needed: skin wounds contaminated by urine Assessment/Plan Hospital Course - SP exploratory laparotomy; anastomotic leak and abscess -Increased leukocytosis patient is currently on Zosyn and Flagyl, CT of the abdomen and pelvis revealed moderate ascites, questionable peritonitis or abscess increased right lower lobe infiltrate. - per Dr. Vázquez following in infection disease consultation. -Possible surgical wound infection, obtain wound cx. -Right lower lobe infiltrate -S/p open Reagan reversal and colorectal low pelvic anastomosis, segmental partial colectomy, and open incarcerated incisional and parastomal hernia repairs with mesh by Dr. Art on 01/21/2019. Continue [place] and Dilaudid as needed for pain and Zofran as needed for nausea. -Stage III sigmoid colon cancer, status post surgery and chemo in 2018. -Acute kidney injury on chronic kidney disease, monitor urine output BUN and creatinine. Dr. Stuart is following in nephrology consultation. -Acute on chronic diastolic CHF -Atrial fibrillation. -Obstructive sleep apnea -History of hypertension -History of left upper extremity DVT Result Diagram: 02/16/19 0606 02/15/19 1357 Results 24hrs Laboratory Tests Test 02/15/19 12:20 02/15/19 13:57 02/15/19 17:38 02/15/19 22:04 Bedside Glucose 139 142 152 White Blood Count 8.6 # Red Blood Count 3.21 L Hemoglobin 9.4 L Hematocrit 29.0 L Mean Corpuscular Volume 90.3 Mean Corpuscular 29.3 Hemoglobin Mean Corpuscular 32.4 Hemoglobin Concent Red Cell Distribution 13.8 Width Platelet Count 258 Mean Platelet Volume 11.1 H Immature Granulocytes % 0.800 H Neutrophils % 83.4 H Lymphocytes % 6.3 L Monocytes % 7.2 Eosinophils % 2.1 Basophils % 0.2 Nucleated Red Blood 0.0 Cells % Immature Granulocytes # 0.070 H Neutrophils # 7.2 Lymphocytes # 0.5 L Monocytes # 0.6 Eosinophils # 0.2 Basophils # 0.0 Nucleated Red Blood 0.0 Cells # Sodium Level 138 Potassium Level 3.7 Chloride Level 101 Carbon Dioxide Level 30 Anion Gap 7 Blood Urea Nitrogen 17 Creatinine 0.68 Est Glomerular Filtrat > 60 Rate mL/min Glucose Level 164 Calcium Level 8.9 Test 02/16/19 00:36 02/16/19 05:08 02/16/19 06:06 Bedside Glucose 158 160 White Blood Count 9.0 Red Blood Count 3.36 L Hemoglobin 9.7 L Hematocrit 30.4 L Mean Corpuscular Volume 90.5 Mean Corpuscular 28.9 L Hemoglobin Mean Corpuscular 31.9 L Hemoglobin Concent Red Cell Distribution 13.7 Width Platelet Count 312 # Mean Platelet Volume 10.9 H Immature Granulocytes % 1.300 H Neutrophils % 79.7 H Lymphocytes % 8.2 L Monocytes % 7.6 Eosinophils % 2.6 Basophils % 0.6 Nucleated Red Blood 0.0 Cells % Immature Granulocytes # 0.120 H Neutrophils # 7.2 Lymphocytes # 0.7 L Monocytes # 0.7 Eosinophils # 0.2 Basophils # 0.1 Nucleated Red Blood 0.0 Cells # Procalcitonin 0.16 H Subjective 24 Hr Interval Summary Free Text/Dictation Feels tired but denies much pain Exam/Review of Systems Exam Vitals Vital Signs Date Temp Pulse Resp B/P (MAP) Pulse Ox O2 O2 Flow FiO2 Time Delivery Rate 02/16/19 98.3 90 20 116/68 97 Nasal 3.0 11:24 (84) Cannula Intake and Output 02/15/19 02/15/19 02/16/19 1515:00 23:00 07:00 IntakeIntake Total 610 ml 990 ml 1270 ml OutputOutput Total 900 ml 4750 ml 1850 ml BalanceBalance -290 ml -3760 ml -580 ml Constitutional: well developed Head: normocephalic, atraumatic Neck: supple Respiratory: diminished breath sounds Cardiovascular: regular rate and rhythm Gastrointestinal: soft, non-tender Extremities: normal pulses Results Results 24hrs Laboratory Tests Test 02/15/19 12:20 02/15/19 13:57 02/15/19 17:38 02/15/19 22:04 Bedside Glucose 139 142 152 White Blood Count 8.6 # Red Blood Count 3.21 L Hemoglobin 9.4 L Hematocrit 29.0 L Mean Corpuscular Volume 90.3 Mean Corpuscular 29.3 Hemoglobin Mean Corpuscular 32.4 Hemoglobin Concent Red Cell Distribution 13.8 Width Platelet Count 258 Mean Platelet Volume 11.1 H Immature Granulocytes % 0.800 H Neutrophils % 83.4 H Lymphocytes % 6.3 L Monocytes % 7.2 Eosinophils % 2.1 Basophils % 0.2 Nucleated Red Blood 0.0 Cells % Immature Granulocytes # 0.070 H Neutrophils # 7.2 Lymphocytes # 0.5 L Monocytes # 0.6 Eosinophils # 0.2 Basophils # 0.0 Nucleated Red Blood 0.0 Cells # Sodium Level 138 Potassium Level 3.7 Chloride Level 101 Carbon Dioxide Level 30 Anion Gap 7 Blood Urea Nitrogen 17 Creatinine 0.68 Est Glomerular Filtrat > 60 Rate mL/min Glucose Level 164 Calcium Level 8.9 Test 02/16/19 00:36 02/16/19 05:08 02/16/19 06:06 Bedside Glucose 158 160 White Blood Count 9.0 Red Blood Count 3.36 L Hemoglobin 9.7 L Hematocrit 30.4 L Mean Corpuscular Volume 90.5 Mean Corpuscular 28.9 L Hemoglobin Mean Corpuscular 31.9 L Hemoglobin Concent Red Cell Distribution 13.7 Width Platelet Count 312 # Mean Platelet Volume 10.9 H Immature Granulocytes % 1.300 H Neutrophils % 79.7 H Lymphocytes % 8.2 L Monocytes % 7.6 Eosinophils % 2.6 Basophils % 0.6 Nucleated Red Blood 0.0 Cells % Immature Granulocytes # 0.120 H Neutrophils # 7.2 Lymphocytes # 0.7 L Monocytes # 0.7 Eosinophils # 0.2 Basophils # 0.1 Nucleated Red Blood 0.0 Cells # Procalcitonin 0.16 H Medications Medication Current Medications Hydralazine HCl (Apresoline) 10 mg Q4H PRN IV >150/95 Last administered on 01/24/19at 05:34; Admin Dose 10 MG; Start 01/21/19 at 14:00 Metoprolol Tartrate (Lopressor) 5 mg Q4H PRN IV HR>110 HOld SBP<100 Last administered on 02/15/19at 08:21; Admin Dose 5 MG; Start 01/23/19 at 20:30 Levalbuterol (Xopenex Neb) 0.63 mg Q6H RESP THERAPY HHN Last administered on 02/16/19at 07:50; Admin Dose 0.63 MG; Start 01/24/19 at 23:30 Acetaminophen (Tylenol Tab) 650 mg Q6H PRN PO MILD PAIN(1-3)OR ELEVATED TEMP Last administered on 02/10/19 21:54; Admin Dose 650 MG; Start 01/29/19 at 23:30 Al Hydrox/Mg Hydrox/Simethicone (Mag-Al Plus) 30 ml Q4H PRN PO GASTROINTESTINAL UPSET Last administered on 01/30/19 18:39; Admin Dose 30 ML; Start 01/29/19 at 23:30 Atenolol (Tenormin) 50 mg BID PO Last administered on 02/15/19 22:01; Admin Dose 50 MG; Start 01/30/19 at 21:00 Cefepime HCl 50 ml @ 100 mls/hr Q12 IVPB Last administered on 02/16/19 09:29; Admin Dose 100 MLS/HR; Start 02/04/19 at 14:00 Metronidazole 100 ml @ 100 mls/hr Q8 IVPB Last administered on 02/16/19 05:12; Admin Dose 100 MLS/HR; Start 02/04/19 at 14:00 Furosemide (Lasix) 20 mg BID DIURETICS IV Last administered on 02/16/19 05:12; Admin Dose 20 MG; Start 02/06/19 at 18:00 Morphine Sulfate (morphine) 2 mg Q2H PRN IV PAIN LEVEL 6-10; Start 02/11/19 at 16:30 Acetaminophen/ Hydrocodone Bitart ([place] (5/325)) 1 tab Q6H PRN PO PAIN LEVEL 6-10; Start 02/11/19 at 16:30 Total Parenteral Nutrition 1,000 ml @ 50 mls/hr Q20H IV Last administered on 02/15/19 22:30; Admin Dose 50 MLS/HR; Start 02/12/19 at 16:00 Fat Emulsion Intravenous 250 ml @ 20.833 mls/ hr Q24H IV Last administered on 02/15/19 16:10; Admin Dose 20.833 MLS/HR; Start 02/12/19 at 16:00 Miscellaneous Information (* Miscellaneous Pharmacy Order) DURAMORPH: 0.2 MG SPI... GIVEN NEURAXIAL XX ; Start 02/11/19 at 16:30 Fluconazole 100 ml @ 100 mls/hr Q24H IVPB Last administered on 02/15/19at 14:22; Admin Dose 100 MLS/HR; Start 02/12/19 at 12:30 Nystatin (Nystatin Susp) 5 ml QID PO Last administered on 02/16/19at 09:31; Admin Dose 5 ML; Start 02/12/19 at 13:00 Diltiazem HCl (Cardizem Cd) 120 mg DAILY@2100 PO Last administered on 02/15/19at 22:01; Admin Dose 120 MG; Start 02/15/19 at 21:00 Diagnostic Test (Pha) (Accu-Chek) 1 ea Q6 XX Last administered on 02/16/19at 05:09; Admin Dose 1 EA; Start 02/15/19 at 12:00 Enoxaparin Sodium (Lovenox) 80 mg BID SC ; Start 02/15/19 at 21:00; Status UNV Miscellaneous Information (*Order Clarification Bulletin) MEDICATION REQUIRES CLARIFICATI... Q8H XX ; Start 02/15/19 at 19:30 YESSICA CLAYTON February 16, 2019 12:07
[2019-02-16] MEDS: FLUCONAZOLE 200 MG (PMX) 100 ML IVPB SCH (12:50)
--- NOTE | 2019-02-16 15:58 | CONS ---
Assessment/Plan Assessment/Plan Hospital Course (Demo Recall) IMPRESSION: 1. Tachycardia c/w AF now improved HR control. NL EF by echo 60-65 2. Possible congestive heart failure by chest x-ray with the patient having the onset of acute renal failure at this time. 3. Hypertension 4. Postoperative status post reversal colostomy. 5. Fevers postop. 6. Renal failure, acute.-improved now 7. History of colon carcinoma status post prior colectomy with colostomy with anastomatic leak by abd CT and now post-op s/p repeat surgery with removal abscess and placement of drains 8. Hypernatremia, improved 9. Hypomagnesemia-improved 10. Leukocytosis. Recc: -Tele -Continue PO BB and now CCB and f/u HR closely -s/p dose IVP digoxin to assure good HR control -Pain control -Continue abx's and f/u cx data -Follow volume status closely with ongoing lasix which I will decresae to daily -? ability to resume lovenox for AF ? if surgery was contacted and asked this question as order has been written but awaiting approval -routine post-op care -ON TPN Consultation Date/Type/Reason Admit Date/Time Jan 21, 2019 at 06:18 Initial Consult Date 01/23/19 Type of Consult Cardiology Reason for Consultation AF Requesting Provider: ODELL PACHECO Date/Time of Note DATE: 02/16/19 TIME: 15:55 Exam/Review of Systems Vital Signs Vitals Vital Signs Date Temp Pulse Resp B/P (MAP) Pulse Ox O2 O2 Flow FiO2 Time Delivery Rate 02/16/19 75 16 95 Nasal 3.0 13:01 Cannula 02/16/19 98.3 116/68 11:24 (84) Intake and Output 02/15/19 02/15/19 02/16/19 1414:59 22:59 06:59 IntakeIntake Total 610 ml 940 ml 1320 ml OutputOutput Total 900 ml 4750 ml 1850 ml BalanceBalance -290 ml -3810 ml -530 ml Exam Exam Review of Systems: CONSTITUTIONAL: No fevers, chills. PULMONARY: No sob CARDIOVASCULAR: No chest pain/palpitations GASTROINTESTINAL: No nausea/vomiting. GENITOURINARY: No hematuria/dysuria. MUSCULOSKELETAL: abd pain PSYCHIATRIC: The patient denies depression. NEUROLOGIC: No weakness Constitutional: alert Psych: no complaints Head: normocephalic ENMT: mucosa pink and moist Neck: supple, jvd (9 cm water) Respiratory: diminished breath sounds (at bases/B) Cardiovascular: irregular rhythm Gastrointestinal: other (covered by dressing, colostomy) Musculoskeletal: muscle weakness (mild generalized) Extremities: edema (none) Neurological: focal weakness (NO focal deficits) Labs Result Diagram: 02/16/19 0606 02/15/19 1357 Results 24hrs Laboratory Tests Test 02/15/19 17:38 02/15/19 22:04 02/16/19 00:36 02/16/19 05:08 Bedside Glucose 142 152 158 160 Test 02/16/19 06:06 02/16/19 12:35 White Blood Count 9.0 Red Blood Count 3.36 L Hemoglobin 9.7 L Hematocrit 30.4 L Mean Corpuscular Volume 90.5 Mean Corpuscular 28.9 L Hemoglobin Mean Corpuscular 31.9 L Hemoglobin Concent Red Cell Distribution 13.7 Width Platelet Count 312 # Mean Platelet Volume 10.9 H Immature Granulocytes % 1.300 H Neutrophils % 79.7 H Lymphocytes % 8.2 L Monocytes % 7.6 Eosinophils % 2.6 Basophils % 0.6 Nucleated Red Blood 0.0 Cells % Immature Granulocytes # 0.120 H Neutrophils # 7.2 Lymphocytes # 0.7 L Monocytes # 0.7 Eosinophils # 0.2 Basophils # 0.1 Nucleated Red Blood 0.0 Cells # Procalcitonin 0.16 H Bedside Glucose 179 Medications Medications Current Medications Hydralazine HCl (Apresoline) 10 mg Q4H PRN IV >150/95 Last administered on 01/24/19at 05:34; Admin Dose 10 MG; Start 01/21/19 at 14:00 Metoprolol Tartrate (Lopressor) 5 mg Q4H PRN IV HR>110 HOld SBP<100 Last administered on 02/15/19at 08:21; Admin Dose 5 MG; Start 01/23/19 at 20:30 Levalbuterol (Xopenex Neb) 0.63 mg Q6H RESP THERAPY HHN Last administered on 02/16/19at 13:00; Admin Dose 0.63 MG; Start 01/24/19 at 23:30 Acetaminophen (Tylenol Tab) 650 mg Q6H PRN PO MILD PAIN(1-3)OR ELEVATED TEMP Last administered on 02/10/19 21:54; Admin Dose 650 MG; Start 01/29/19 at 23:30 Al Hydrox/Mg Hydrox/Simethicone (Mag-Al Plus) 30 ml Q4H PRN PO GASTROINTESTINAL UPSET Last administered on 01/30/19 18:39; Admin Dose 30 ML; Start 01/29/19 at 23:30 Atenolol (Tenormin) 50 mg BID PO Last administered on 02/15/19 22:01; Admin Dose 50 MG; Start 01/30/19 at 21:00 Cefepime HCl 50 ml @ 100 mls/hr Q12 IVPB Last administered on 02/16/19 09:29; Admin Dose 100 MLS/HR; Start 02/04/19 at 14:00 Metronidazole 100 ml @ 100 mls/hr Q8 IVPB Last administered on 02/16/19 14:28; Admin Dose 100 MLS/HR; Start 02/04/19 at 14:00 Furosemide (Lasix) 20 mg BID DIURETICS IV Last administered on 02/16/19 05:12; Admin Dose 20 MG; Start 02/06/19 at 18:00 Morphine Sulfate (morphine) 2 mg Q2H PRN IV PAIN LEVEL 6-10; Start 02/11/19 at 16:30 Acetaminophen/ Hydrocodone Bitart ([place] (5/325)) 1 tab Q6H PRN PO PAIN LEVEL 6-10; Start 02/11/19 at 16:30 Total Parenteral Nutrition 1,000 ml @ 50 mls/hr Q20H IV Last administered on 02/15/19 22:30; Admin Dose 50 MLS/HR; Start 02/12/19 at 16:00 Fat Emulsion Intravenous 250 ml @ 20.833 mls/ hr Q24H IV Last administered on 02/15/19 16:10; Admin Dose 20.833 MLS/HR; Start 02/12/19 at 16:00 Miscellaneous Information (* Miscellaneous Pharmacy Order) DURAMORPH: 0.2 MG SPI... GIVEN NEURAXIAL XX ; Start 02/11/19 at 16:30 Fluconazole 100 ml @ 100 mls/hr Q24H IVPB Last administered on 5/4/19at 12:50; Admin Dose 100 MLS/HR; Start 02/12/19 at 12:30 Nystatin (Nystatin Susp) 5 ml QID PO Last administered on 02/16/19at 12:50; Admin Dose 5 ML; Start 02/12/19 at 13:00 Diltiazem HCl (Cardizem Cd) 120 mg DAILY@2100 PO Last administered on 02/15/19at 22:01; Admin Dose 120 MG; Start 02/15/19 at 21:00 Diagnostic Test (Pha) (Accu-Chek) 1 ea Q6 XX Last administered on 02/16/19at 05:0 9; Admin Dose 1 EA; Start 02/15/19 at 12:00 Enoxaparin Sodium (Lovenox) 80 mg BID SC ; Start 02/15/19 at 21:00; Status UNV Miscellaneous Information (*Order Clarification Bulletin) MEDICATION REQUIRES CLARIFICATI... Q8H XX ; Start 02/15/19 at 19:30 EUGENE ANDERSON February 16, 2019 15:58
[2019-02-16] MEDS: FAT EMULSION 20% 250 ML IV SCH (16:19)
--- NOTE | 2019-02-16 16:23 | PN ---
DATE: 02/16/2019 Postop day #5. This is a second operation. Status post laparotomy, peritoneal washout for abscess and infection, placement of diverting loop ileostomy. SUBJECTIVE: Feels better. Appetite is improving. He stated that he had a good meal today. No nausea, no vomiting, . VITAL SIGNS: Temperature 98.3, heart rate 92, respirations between 16 and 20, blood pressure 106/68, saturation 95% to 97% on 3 liters nasal cannula. LABORATORY DATA: WBC 9000. Differential is 79.7%. Hemoglobin 9.7, hematocrit 30.4. Chemistry procalcitonin is 0.16. I and O's: Urine output in the past 24 hours, 2400 mL. Morales-Strauss drain 30 cc in the past 24 hours. The other is 1 mL. Currently on drain is almost zero. CLINICAL EXAM: HEART: Regular. LUNGS: Clear. Decreased breathing sound mainly on the right base. Dressing changed, incisional wound is clean. ASSESSMENT: Postop day #5 second operation. The abdominal peritoneal washout, drainage of the abscesses and placement of diverting loop ileostomy. The patient is stable now tolerating food and ileostomy is discharge has not formed the stool yet. PLAN: Continue current care. Continue antibiotics. Discontinuation of TPN per internal medicine service. We will continue to follow the patient. Dictated By: LIAT LOOMIS MD PS/NTS Conf#: [id number] DID#: [id number] CC: JACOB FERNANDEZ MD;*EndCC* MTDD
[2019-02-16] MEDS: DIGOXIN 500 MCG INJ IV SCH ×2 (17:44→23:30)
[2019-02-16] MEDS: TPN 1,000 ML IV SCH (19:05)
[2019-02-16] MEDS: DILTIAZEM (CD) 120 MG CAP PO SCH (20:06)
[2019-02-16] MEDS: ENOXAPARIN 80 MG/0.8 ML SYG SC SCH (20:48)
--- NOTE | 2019-02-16 22:03 | CONS ---
Assessment/Plan Assessment/Plan Hospital Course (Demo Recall) assessment/impression # sepsis, respiratory - sepsis due to complicated intra-abdominal infection and pneumonia, improved - recurrent pleural effusion - congested cough probably due to pleural effusion - R pleural effusion, exudative process, parapneumonic effusion LDH 1601 protein 3.2, no e/o malignancy on cytology - s/p R sided thoracentesis on 02/05/2019 - VIJAY # GI, onc - s/p ex lap, washout of abdominal abscess, CLEVE, diverting loop ileostomy on 02/11/2019 - s/p open Reagan reversal and colorectal low pelvic anastomosis, segmental partial colectomy, and open incarcerated incisional and parastomal hernia repairs with mesh by Dr. Art on 01/21/2019 - thrush, resolving - follow up CT on 02/04/2019 did not identify definite point of leak--> anastomotic leak was identified on gastograffin - s/p CT guided drainage of abscess in LLQ on 02/01/2019 - Abdominal wound culture 01/30/19 and abscess culture 01/31/19 grew pseudomonas, joseline albicans and glabrata - S/p colostomy reversal - Stage III sigmoid colon cancer, status post prior colectomy/colostomy and chemo in 2018 # renal, cardiovascular - Acute kidney injury on chronic kidney disease - Acute on chronic diastolic CHF - Atrial fibrillation. - Hx hypertension - Hx left upper extremity DVT - Superficial thrombus in R cephalic vein in the forearm and in L cephalic vein in the antecubital fossa as visualized on NOY 02/05/2019 # other conditions - R conjunctivitis, resolved after neomycin eye drop x 7 days recommendations: - ordered: chest NOY to assess the size of effusion, resp culture, influenza A and B screen - if sufficient amount of fluid is found, I recommend repeat thoracentesis - As Pt starts to improve and as his procalcitonin is not very high, I recommend de-escalating his antibiotics: continue cefepime (02/04/2019-) and fluconazole (01/30/2019-). Pt previously took meropenem (01/30/2019-02/03/2019), metronidazole (02/04/2019-02/16/2019) - continue nystatin for thrush (02/12/2019-) - management d/w Pt, his RN Consultation Date/Type/Reason Admit Date/Time Jan 21, 2019 at 06:18 Initial Consult Date 01/30/19 Type of Consult ID Requesting Provider: ODELL PACHECO Date/Time of Note DATE: 02/16/19 TIME: 21:55 24 HR Interval Summary Constitutional: improved, other (started to take some PO) Detailed Summary Eyes: no complaints ENT: no complaints Respiratory: cough, sputum; No pleuritic pain, No shortness of breath Cardiovascular: no complaints Gastrointestinal: passing stool (ostomy bag), other (bloated); No pain Genitourinary: no complaints Musculoskeletal: no complaints Skin: no complaints Neurologic: no complaints Exam/Review of Systems Exam Vitals Vital Signs Date Temp Pulse Resp B/P (MAP) Pulse Ox O2 O2 Flow FiO2 Time Delivery Rate 02/16/19 98.6 68 20 121/78 99 20:00 (92) 02/16/19 Nasal 2.0 20:00 Cannula Intake and Output 02/15/19 02/15/19 02/16/19 1515:00 23:00 07:00 IntakeIntake Total 610 ml 990 ml 1270 ml OutputOutput Total 900 ml 4750 ml 1850 ml BalanceBalance -290 ml -3760 ml -580 ml Constitutional: frail Psych: no complaints, nl mood/affect Head: normocephalic, atraumatic Eyes: nl conjunctiva, nl lids, nl sclera ENMT: nl external ears & nose, nl nasal mucosa & septum, mucosa pink and moist Neck: other (not swollen) Respiratory: congested cough, crackles/rales Cardiovascular: regular rate and rhythm, nl pulses Gastrointestinal: soft, distended, surgical scars, tender, other (+ostomy bag) Musculoskeletal: nl extremities to inspection Extremities: No edema Neurological: CLIP COATER II-XII intact, nl mental status, nl speech Skin: nl turgor; No rash or lesions Results Result Diagram: 02/16/19 0606 02/15/19 1357 Results 24hrs Laboratory Tests Test 02/15/19 22:04 02/16/19 00:36 02/16/19 05:08 02/16/19 06:06 Bedside Glucose 152 158 160 White Blood Count 9.0 Red Blood Count 3.36 L Hemoglobin 9.7 L Hematocrit 30.4 L Mean Corpuscular Volume 90.5 Mean Corpuscular 28.9 L Hemoglobin Mean Corpuscular 31.9 L Hemoglobin Concent Red Cell Distribution 13.7 Width Platelet Count 312 # Mean Platelet Volume 10.9 H Immature Granulocytes % 1.300 H Neutrophils % 79.7 H Lymphocytes % 8.2 L Monocytes % 7.6 Eosinophils % 2.6 Basophils % 0.6 Nucleated Red Blood 0.0 Cells % Immature Granulocytes # 0.120 H Neutrophils # 7.2 Lymphocytes # 0.7 L Monocytes # 0.7 Eosinophils # 0.2 Basophils # 0.1 Nucleated Red Blood 0.0 Cells # Procalcitonin 0.16 H Test 02/16/19 12:35 02/16/19 17:53 Bedside Glucose 179 122 Medications Medication Current Medications Hydralazine HCl (Apresoline) 10 mg Q4H PRN IV >150/95 Last administered on 01/24/19 05:34; Admin Dose 10 MG; Start 01/21/19 at 14:00 Metoprolol Tartrate (Lopressor) 5 mg Q4H PRN IV HR>110 HOld SBP<100 Last administered on 02/15/19 08:21; Admin Dose 5 MG; Start 01/23/19 at 20:30 Levalbuterol (Xopenex Neb) 0.63 mg Q6H RESP THERAPY HHN Last administered on 02/16/19 19:40; Admin Dose 0.63 MG; Start 01/24/19 at 23:30 Acetaminophen (Tylenol Tab) 650 mg Q6H PRN PO MILD PAIN(1-3)OR ELEVATED TEMP Last administered on 02/10/19 21:54; Admin Dose 650 MG; Start 01/29/19 at 23:30 Al Hydrox/Mg Hydrox/Simethicone (Mag-Al Plus) 30 ml Q4H PRN PO GASTROINTESTINAL UPSET Last administered on 01/30/19 18:39; Admin Dose 30 ML; Start 01/29/19 at 23:30 Atenolol (Tenormin) 50 mg BID PO Last administered on 02/16/19 20:06; Admin Dose 50 MG; Start 01/30/19 at 21:00 Cefepime HCl 50 ml @ 100 mls/hr Q12 IVPB Last administered on 02/16/19 20:07; Admin Dose 100 MLS/HR; Start 02/04/19 at 14:00 Metronidazole 100 ml @ 100 mls/hr Q8 IVPB Last administered on 02/16/19 14:28; Admin Dose 100 MLS/HR; Start 02/04/19 at 14:00 Morphine Sulfate (morphine) 2 mg Q2H PRN IV PAIN LEVEL 6-10; Start 02/11/19 at 16:30 Acetaminophen/ Hydrocodone Bitart ([place] (5/325)) 1 tab Q6H PRN PO PAIN LEVEL 6-10; Start 02/11/19 at 16:30 Total Parenteral Nutrition 1,000 ml @ 50 mls/hr Q20H IV Last administered on 02/16/19 19:05; Admin Dose 50 MLS/HR; Start 02/12/19 at 16:00 Fat Emulsion Intravenous 250 ml @ 20.833 mls/ hr Q24H IV Last administered on 02/16/19 16:19; Admin Dose 20.833 MLS/HR; Start 02/12/19 at 16:00 Fluconazole 100 ml @ 100 mls/hr Q24H IVPB Last administered on 02/16/19 12:50; Admin Dose 100 MLS/HR; Start 02/12/19 at 12:30 Nystatin (Nystatin Susp) 5 ml QID PO Last administered on 02/16/19 20:06; Admin Dose 5 ML; Start 02/12/19 at 13:00 Diltiazem HCl (Cardizem Cd) 120 mg DAILY@2100 PO Last administered on 02/16/19 20:06; Admin Dose 120 MG; Start 02/15/19 at 21:00 Diagnostic Test (Pha) (Accu-Chek) 1 ea Q6 XX Last administered on 02/16/19 05:09; Admin Dose 1 EA; Start 02/15/19 at 12:00 Furosemide (Lasix) 20 mg DAILY IV ; Start 02/17/19 at 09:00 Enoxaparin Sodium (Lovenox) 80 mg BID SC Last administered on 02/16/19 20:48; Admin Dose 80 MG; Start 02/16/19 at 21:00 Digoxin (Digoxin) 250 mcg Q6H IV Last administered on 02/16/19 17:44; Admin Dose 250 MCG; Start 02/16/19 at 18:00; Stop 02/17/19 at 00:01 MERCED ESCUDERO M.D. February 16, 2019 22:03
[2019-02-17] VITALS (13 sets, daily range): BP systolic 115–121; BP diastolic 71–86; PULSE 67–177; RESP 18–20
[2019-02-17] MEDS: LEVALBUTEROL (NEB) 0.63 MG/3 ML AMP HHN SCH ×4 (00:58→19:57)
[2019-02-17] MEDS: ACCU-CHEK XX SCH ×3 (05:33→17:23)
[2019-02-17] MEDS: CEFEPIME 2GM/50 ML (PMX) 50 ML IVPB SCH ×2 (09:10→20:32)
[2019-02-17] MEDS: NYSTATIN SUSP 5 ML CUP PO SCH ×4 (09:11→20:31)
[2019-02-17] MEDS: FUROSEMIDE 20 MG INJ IV SCH (09:11)
[2019-02-17] MEDS: ATENOLOL 50 MG TAB PO SCH ×2 (09:12→20:31)
[2019-02-17] MEDS: ENOXAPARIN 80 MG/0.8 ML SYG SC SCH ×2 (09:39→20:46)
[2019-02-17] MEDS: FLUCONAZOLE 200 MG (PMX) 100 ML IVPB SCH (12:37)
--- NOTE | 2019-02-17 12:47 | PN ---
Date/Time of Note Date/Time of Note DATE: 02/17/19 TIME: 12:47 Assessment/Plan VTE Prophylaxis Risk score (from Ns)>0 risk: 9 SCD applied (from Ns): Yes Pharmacological prophylaxis: LMWH Lines/Catheters IV Catheter Type (from Nrs): Peripheral IV Urinary Cath still in place: No Assessment/Plan Hospital Course - SP exploratory laparotomy; anastomotic leak and abscess -Increased leukocytosis patient is currently on Zosyn and Flagyl, CT of the abdomen and pelvis revealed moderate ascites, questionable peritonitis or abscess increased right lower lobe infiltrate. - per Dr. Vázquez following in infection disease consultation. -Possible surgical wound infection, obtain wound cx. -Right lower lobe infiltrate -S/p open Reagan reversal and colorectal low pelvic anastomosis, segmental partial colectomy, and open incarcerated incisional and parastomal hernia repairs with mesh by Dr. Art on 01/21/2019. Continue [place] and Dilaudid as needed for pain and Zofran as needed for nausea. -Stage III sigmoid colon cancer, status post surgery and chemo in 2018. -Acute kidney injury on chronic kidney disease, monitor urine output BUN and creatinine. Dr. Stuart is following in nephrology consultation. -Acute on chronic diastolic CHF -Atrial fibrillation. -Obstructive sleep apnea -History of hypertension -History of left upper extremity DVT Result Diagram: 02/16/19 0606 02/17/19 0616 Results 24hrs Laboratory Tests Test 02/16/19 17:53 02/16/19 23:29 02/17/19 05:30 02/17/19 06:16 Bedside Glucose 122 141 137 Sodium Level 137 Potassium Level 4.0 Chloride Level 102 Carbon Dioxide Level 29 Anion Gap 6 Blood Urea Nitrogen 20 Creatinine 0.76 Est Glomerular Filtrat > 60 Rate mL/min Glucose Level 130 Calcium Level 8.8 Phosphorus Level 4.1 Magnesium Level 2.3 Test 02/17/19 11:38 Bedside Glucose 167 Subjective 24 Hr Interval Summary Free Text/Dictation Patient still has some abdominal pain Exam/Review of Systems Exam Vitals Vital Signs Date Temp Pulse Resp B/P (MAP) Pulse Ox O2 O2 Flow FiO2 Time Delivery Rate 02/17/19 90 12:04 02/17/19 99.3 20 118/78 97 Nasal 11:42 (91) Cannula 02/17/19 2.0 08:38 Intake and Output 02/16/19 02/16/19 02/17/19 1414:59 22:59 06:59 IntakeIntake Total 100 ml 1550 ml 1550 ml OutputOutput Total 950 ml 800 ml BalanceBalance 100 ml 600 ml 750 ml Constitutional: well developed Head: normocephalic, atraumatic Neck: supple Respiratory: diminished breath sounds Cardiovascular: regular rate and rhythm Gastrointestinal: soft, non-tender Extremities: normal pulses Results Results 24hrs Laboratory Tests Test 02/16/19 17:53 02/16/19 23:29 02/17/19 05:30 02/17/19 06:16 Bedside Glucose 122 141 137 Sodium Level 137 Potassium Level 4.0 Chloride Level 102 Carbon Dioxide Level 29 Anion Gap 6 Blood Urea Nitrogen 20 Creatinine 0.76 Est Glomerular Filtrat > 60 Rate mL/min Glucose Level 130 Calcium Level 8.8 Phosphorus Level 4.1 Magnesium Level 2.3 Test 02/17/19 11:38 Bedside Glucose 167 Medications Medication Current Medications Hydralazine HCl (Apresoline) 10 mg Q4H PRN IV >150/95 Last administered on 01/24/19 05:34; Admin Dose 10 MG; Start 01/21/19 at 14:00 Metoprolol Tartrate (Lopressor) 5 mg Q4H PRN IV HR>110 HOld SBP<100 Last administered on 02/15/19 08:21; Admin Dose 5 MG; Start 01/23/19 at 20:30 Levalbuterol (Xopenex Neb) 0.63 mg Q6H RESP THERAPY HHN Last administered on 02/17/19 08:32; Admin Dose 0.63 MG; Start 01/24/19 at 23:30 Acetaminophen (Tylenol Tab) 650 mg Q6H PRN PO MILD PAIN(1-3)OR ELEVATED TEMP Last administered on 02/10/19 21:54; Admin Dose 650 MG; Start 01/29/19 at 23:30 Al Hydrox/Mg Hydrox/Simethicone (Mag-Al Plus) 30 ml Q4H PRN PO GASTROINTESTINAL UPSET Last administered on 01/30/19 18:39; Admin Dose 30 ML; Start 01/29/19 at 23:30 Atenolol (Tenormin) 50 mg BID PO Last administered on 02/17/19 09:12; Admin Dose 50 MG; Start 01/30/19 at 21:00 Cefepime HCl 50 ml @ 100 mls/hr Q12 IVPB Last administered on 02/17/19 09:10; Admin Dose 100 MLS/HR; Start 02/04/19 at 14:00 Morphine Sulfate (morphine) 2 mg Q2H PRN IV PAIN LEVEL 6-10; Start 02/11/19 at 16:30 Acetaminophen/ Hydrocodone Bitart ([place] (5/325)) 1 tab Q6H PRN PO PAIN LEVEL 6-10; Start 02/11/19 at 16:30 Total Parenteral Nutrition 1,000 ml @ 50 mls/hr Q20H IV Last administered on 02/16/19 19:05; Admin Dose 50 MLS/HR; Start 02/12/19 at 16:00 Fat Emulsion Intravenous 250 ml @ 20.833 mls/ hr Q24H IV Last administered on 02/16/19 16:19; Admin Dose 20.833 MLS/HR; Start 02/12/19 at 16:00 Fluconazole 100 ml @ 100 mls/hr Q24H IVPB Last administered on 02/17/19 12:37; Admin Dose 100 MLS/HR; Start 02/12/19 at 12:30 Nystatin (Nystatin Susp) 5 ml QID PO Last administered on 02/17/19 12:36; Admin Dose 5 ML; Start 02/12/19 at 13:00 Diltiazem HCl (Cardizem Cd) 120 mg DAILY@2100 PO Last administered on 02/16/19 20:06; Admin Dose 120 MG; Start 02/15/19 at 21:00 Diagnostic Test (Pha) (Accu-Chek) 1 ea Q6 XX Last administered on 02/17/19 05:33; Admin Dose 1 EA; Start 02/15/19 at 12:00 Furosemide (Lasix) 20 mg DAILY IV Last administered on 02/17/19 09:11; Admin Dose 20 MG; Start 02/17/19 at 09:00 Enoxaparin Sodium (Lovenox) 80 mg BID SC Last administered on 02/17/19 09:39; Admin Dose 80 MG; Start 02/16/19 at 21:00 YESSICA CLAYTON February 17, 2019 12:47
--- NOTE | 2019-02-17 14:20 | CONS ---
Assessment/Plan Assessment/Plan Hospital Course (Demo Recall) IMPRESSION: 1. Tachycardia c/w AF now improved HR control. NL EF by echo 60-65 2. Possible congestive heart failure by chest x-ray with the patient having the onset of acute renal failure at this time. 3. Hypertension 4. Postoperative status post reversal colostomy. 5. Fevers postop. 6. Renal failure, acute.-improved now 7. History of colon carcinoma status post prior colectomy with colostomy with anastomatic leak by abd CT and now post-op s/p repeat surgery with removal abscess and placement of drains 8. Hypernatremia, improved 9. Hypomagnesemia-improved 10. Leukocytosis. Recc: -Tele -Continue PO BB and now CCB and f/u HR closely which is currently reasonable -s/p dose IVP digoxin to assure good HR control -Pain control -Continue abx's and f/u cx data -Follow volume status closely with ongoing lasix which I will decrease to daily -Continue lovenox -routine post-op care -now off TPN -influenza swabs negative Consultation Date/Type/Reason Admit Date/Time Jan 21, 2019 at 06:18 Initial Consult Date 01/23/19 Type of Consult Cardiology Reason for Consultation AF Requesting Provider: ODELL PACHECO Date/Time of Note DATE: 02/17/19 TIME: 14:18 Exam/Review of Systems Vital Signs Vitals Vital Signs Date Temp Pulse Resp B/P (MAP) Pulse Ox O2 O2 Flow FiO2 Time Delivery Rate 02/17/19 90 12:04 02/17/19 99.3 20 118/78 97 Nasal 11:42 (91) Cannula 02/17/19 2.0 08:38 Intake and Output 02/16/19 02/16/19 02/17/19 1515:00 23:00 07:00 IntakeIntake Total 100 ml 1550 ml 1550 ml OutputOutput Total 950 ml 800 ml BalanceBalance 100 ml 600 ml 750 ml Exam Exam Review of Systems: CONSTITUTIONAL: No fevers, chills. PULMONARY: No sob CARDIOVASCULAR: No chest pain/palpitations GASTROINTESTINAL: No nausea/vomiting. GENITOURINARY: No hematuria/dysuria. MUSCULOSKELETAL: No myagias/arthalgias. PSYCHIATRIC: The patient denies depression. NEUROLOGIC: No weakness Constitutional: alert Psych: no complaints Head: normocephalic ENMT: mucosa pink and moist Neck: supple, jvd (9 cm water) Respiratory: diminished breath sounds (at bases/B) Cardiovascular: irregular rhythm Gastrointestinal: soft, non-tender Musculoskeletal: muscle weakness (mild generalized) Extremities: edema (none) Neurological: other (No focal deficits) Labs Result Diagram: 02/16/19 0606 02/17/19 0616 Results 24hrs Laboratory Tests Test 02/16/19 17:53 02/16/19 23:29 02/17/19 05:30 02/17/19 06:16 Bedside Glucose 122 141 137 Sodium Level 137 Potassium Level 4.0 Chloride Level 102 Carbon Dioxide Level 29 Anion Gap 6 Blood Urea Nitrogen 20 Creatinine 0.76 Est Glomerular Filtrat > 60 Rate mL/min Glucose Level 130 Calcium Level 8.8 Phosphorus Level 4.1 Magnesium Level 2.3 Test 02/17/19 11:38 Bedside Glucose 167 Medications Medications Current Medications Hydralazine HCl (Apresoline) 10 mg Q4H PRN IV >150/95 Last administered on 01/24/19at 05:34; Admin Dose 10 MG; Start 01/21/19 at 14:00 Metoprolol Tartrate (Lopressor) 5 mg Q4H PRN IV HR>110 HOld SBP<100 Last administered on 02/15/19 08:21; Admin Dose 5 MG; Start 01/23/19 at 20:30 Levalbuterol (Xopenex Neb) 0.63 mg Q6H RESP THERAPY HHN Last administered on 02/17/19 08:32; Admin Dose 0.63 MG; Start 01/24/19 at 23:30 Acetaminophen (Tylenol Tab) 650 mg Q6H PRN PO MILD PAIN(1-3)OR ELEVATED TEMP Last administered on 02/10/19 21:54; Admin Dose 650 MG; Start 01/29/19 at 23:30 Al Hydrox/Mg Hydrox/Simethicone (Mag-Al Plus) 30 ml Q4H PRN PO GASTROINTESTINAL UPSET Last administered on 01/30/19 18:39; Admin Dose 30 ML; Start 01/29/19 at 23:30 Atenolol (Tenormin) 50 mg BID PO Last administered on 02/17/19 09:12; Admin Dose 50 MG; Start 01/30/19 at 21:00 Cefepime HCl 50 ml @ 100 mls/hr Q12 IVPB Last administered on 02/17/19 09:10; Admin Dose 100 MLS/HR; Start 02/04/19 at 14:00 Morphine Sulfate (morphine) 2 mg Q2H PRN IV PAIN LEVEL 6-10; Start 02/11/19 at 16:30 Acetaminophen/ Hydrocodone Bitart ([place] (5/325)) 1 tab Q6H PRN PO PAIN LEVEL 6-10; Start 02/11/19 at 16:30 Fluconazole 100 ml @ 100 mls/hr Q24H IVPB Last administered on 02/17/19 12:37; Admin Dose 100 MLS/HR; Start 02/12/19 at 12:30 Nystatin (Nystatin Susp) 5 ml QID PO Last administered on 02/17/19 12:36; Admin Dose 5 ML; Start 02/12/19 at 13:00 Diltiazem HCl (Cardizem Cd) 120 mg DAILY@2100 PO Last administered on 02/16/19 20:06; Admin Dose 120 MG; Start 02/15/19 at 21:00 Diagnostic Test (Pha) (Accu-Chek) 1 ea Q6 XX Last administered on 02/17/19 05:33; Admin Dose 1 EA; Start 02/15/19 at 12:00 Furosemide (Lasix) 20 mg DAILY IV Last administered on 02/17/19 09:11; Admin Dose 20 MG; Start 02/17/19 at 09:00 Enoxaparin Sodium (Lovenox) 80 mg BID SC Last administered on 02/17/19 09:39; Admin Dose 80 MG; Start 02/16/19 at 21:00 EUGENE ANDERSON February 17, 2019 14:20
--- NOTE | 2019-02-17 15:45 | PN ---
DATE: 02/17/2019 Postop day #6 status post laparotomy, peritoneal washout, drainage of abscess, placement of diverting loop ileostomy. SUBJECTIVE: No complaint. Per nurse, the patient's appetite is good and has finished all the food o n his tray. Ileostomy is functioning. The patient states that he has had 2 or 3 bowel movements per rectum and anus today. OBJECTIVE: GENERAL: Alert, awake, oriented. VITAL SIGNS: Temperature maximum 99.3, heart rate fluctuating between 90 and 96, respirations 20, bl ood pressure 118/78, saturation 97% on room air. LABORATORY DATA: WBC 9000 with 79% segmented from yesterday. Today, there is no hematology. Chemis try today, sodium, potassium, BUN and creatinine within normal limits. HEART: Regular. LUNGS: Clear. Decreased breathing sound mainly on the right side. ABDOMEN: Slightly distended, but it is not tender. Minimal tenderness on deep pressure. There is a Ayan drain and a Morales which has slight amount of bloody fluid. The pigtail drain contains defin ite purulent material in the tubing, but in 24 hours, the drainage is not that much. The patient has no problems urinating. PLAN: Continue current care, antibiotics and other medications. Get out of bed and walk around. Cl eanse the incision line daily with Betadine and change dressing per day and p.r.n. Dictated By: LIAT LOOMIS MD PS/NTS Conf#: [id number] DID#: [id number] CC: JACOB FERNANDEZ MD;*EndCC*
--- NOTE | 2019-02-17 17:20 | CONS ---
Assessment/Plan Assessment/Plan Hospital Course (Demo Recall) assessment/impression # sepsis, respiratory - sepsis due to complicated intra-abdominal infection and pneumonia, resolving - recurrent pleural effusion, follow up chest US on 02/17/2019 showed small R sided effusion - congested cough probably due to pleural effusion and fluid overload, influenza AB negative on 02/17/2019. Improving - R pleural effusion, exudative process, parapneumonic effusion LDH 1601 protein 3.2, no e/o malignancy on cytology - s/p R sided thoracentesis on 02/05/2019 - VIJAY # GI, onc - s/p ex lap, washout of abdominal abscess, CLEVE, diverting loop ileostomy on 02/11/2019 - s/p open Reagan reversal and colorectal low pelvic anastomosis, segmental partial colectomy, and open incarcerated incisional and parastomal hernia repairs with mesh by Dr. Art on 01/21/2019 - thrush, resolving - follow up CT on 02/04/2019 did not identify definite point of leak--> anastomotic leak was identified on gastograffin - s/p CT guided drainage of abscess in LLQ on 02/01/2019 - Abdominal wound culture 01/30/19 and abscess culture 01/31/19 grew pseudomonas, joseline albicans and glabrata - S/p colostomy reversal - Stage III sigmoid colon cancer, status post prior colectomy/colostomy and chem o in 2017 # renal, cardiovascular - Acute kidney injury on chronic kidney disease, resolved - Acute on chronic diastolic CHF, improved - Atrial fibrillation. - Hx hypertension - Hx left upper extremity DVT - Superficial thrombus in R cephalic vein in the forearm and in L cephalic vein in the antecubital fossa as visualized on NOY 02/05/2019 # other conditions - R conjunctivitis, resolved after neomycin eye drop x 7 days recommendations: - pending result: sputum culture from 02/16/2019 - if his sputum culture is unremarkable, we may de-escalate or his his antibiotic, cefepime (02/04/2019-). Pt previously took meropenem (01/30/2019- 02/03/2019), metronidazole (02/04/2019-02/16/2019) - continue fluconazole (01/30/2019-) and nystatin (02/12/2019-) until thrush resolves - management d/w Pt, his RN Julia Consultation Date/Type/Reason Admit Date/Time Jan 21, 2019 at 06:18 Initial Consult Date 01/30/19 Type of Consult ID Requesting Provider: ODELL PACHECO Date/Time of Note DATE: 02/17/19 TIME: 17:12 24 HR Interval Summary Constitutional: improved Detailed Summary Eyes: no complaints ENT: no complaints Respiratory: no complaints, other (less cough, no longer needing O2) Cardiovascular: no complaints Gastrointestinal: passing stool (in the bag) Genitourinary: no complaints Musculoskeletal: no complaints Skin: no complaints Exam/Review of Systems Exam Vitals Vital Signs Date Temp Pulse Resp B/P (MAP) Pulse Ox O2 O2 Flow FiO2 Time Delivery Rate 02/17/19 104 16:03 02/17/19 98.8 20 115/73 95 Room Air 15:15 (87) 02/17/19 21 14:45 02/17/19 2.0 08:38 Intake and Output 02/16/19 02/16/19 02/17/19 1515:00 23:00 07:00 IntakeIntake Total 100 ml 1550 ml 1550 ml OutputOutput Total 950 ml 800 ml BalanceBalance 100 ml 600 ml 750 ml Constitutional: alert, oriented Psych: no complaints, nl mood/affect Head: normocephalic, atraumatic Eyes: nl conjunctiva, nl lids, nl sclera ENMT: nl external ears & nose, nl nasal mucosa & septum, mucosa pink and moist Neck: other (not swollen) Respiratory: congested cough, diminished breath sounds Cardiovascular: regular rate and rhythm, nl pulses Gastrointestinal: soft, distended, surgical scars, other (+ostomy bag) Genitourinary - Male: nl penis, nl scrotum Musculoskeletal: nl extremities to inspection Extremities: No edema Neurological: CELL CLEANER II-XII intact, nl mental status Skin: nl turgor; No rash or lesions Results Result Diagram: 02/16/19 0606 02/17/19 0616 Results 24hrs Laboratory Tests Test 02/16/19 17:53 02/16/19 23:29 02/17/19 05:30 02/17/19 06:16 Bedside Glucose 122 141 137 Sodium Level 137 Potassium Level 4.0 Chloride Level 102 Carbon Dioxide Level 29 Anion Gap 6 Blood Urea Nitrogen 20 Creatinine 0.76 Est Glomerular Filtrat > 60 Rate mL/min Glucose Level 130 Calcium Level 8.8 Phosphorus Level 4.1 Magnesium Level 2.3 Test 02/17/19 11:38 Bedside Glucose 167 Medications Medication Current Medications Hydralazine HCl (Apresoline) 10 mg Q4H PRN IV >150/95 Last administered on 01/24/19 05:34; Admin Dose 10 MG; Start 01/21/19 at 14:00 Metoprolol Tartrate (Lopressor) 5 mg Q4H PRN IV HR>110 HOld SBP<100 Last administered on 02/15/19 08:21; Admin Dose 5 MG; Start 01/23/19 at 20:30 Levalbuterol (Xopenex Neb) 0.63 mg Q6H RESP THERAPY HHN Last administered on 02/17/19 14:45; Admin Dose 0.63 MG; Start 01/24/19 at 23:30 Acetaminophen (Tylenol Tab) 650 mg Q6H PRN PO MILD PAIN(1-3)OR ELEVATED TEMP Last administered on 02/10/19 21:54; Admin Dose 650 MG; Start 01/29/19 at 23:30 Al Hydrox/Mg Hydrox/Simethicone (Mag-Al Plus) 30 ml Q4H PRN PO GASTROINTESTINAL UPSET Last administered on 01/30/19 18:39; Admin Dose 30 ML; Start 01/29/19 at 23:30 Atenolol (Tenormin) 50 mg BID PO Last administered on 02/17/19 09:12; Admin Dose 50 MG; Start 01/30/19 at 21:00 Cefepime HCl 50 ml @ 100 mls/hr Q12 IVPB Last administered on 02/17/19 09:10; Admin Dose 100 MLS/HR; Start 02/04/19 at 14:00 Morphine Sulfate (morphine) 2 mg Q2H PRN IV PAIN LEVEL 6-10; Start 02/11/19 at 16:30 Acetaminophen/ Hydrocodone Bitart ([place] (5/325)) 1 tab Q6H PRN PO PAIN LEVEL 6-10; Start 02/11/19 at 16:30 Fluconazole 100 ml @ 100 mls/hr Q24H IVPB Last administered on 02/17/19 12:37; Admin Dose 100 MLS/HR; Start 02/12/19 at 12:30 Nystatin (Nystatin Susp) 5 ml QID PO Last administered on 02/17/19 12:36; Admin Dose 5 ML; Start 02/12/19 at 13:00 Diltiazem HCl (Cardizem Cd) 120 mg DAILY@2100 PO Last administered on 02/16/19 20:06; Admin Dose 120 MG; Start 02/15/19 at 21:00 Diagnostic Test (Pha) (Accu-Chek) 1 ea Q6 XX Last administered on 02/17/19 05:33; Admin Dose 1 EA; Start 02/15/19 at 12:00 Furosemide (Lasix) 20 mg DAILY IV Last administered on 02/17/19 09:11; Admin Dose 20 MG; Start 02/17/19 at 09:00 Enoxaparin Sodium (Lovenox) 80 mg BID SC Last administered on 02/17/19 09:39; Admin Dose 80 MG; Start 02/16/19 at 21:00 MERCED ESCUDERO M.D. February 17, 2019 17:19
[2019-02-17] MEDS: DILTIAZEM (CD) 120 MG CAP PO SCH (20:31)
[2019-02-18] VITALS (13 sets, daily range): BP systolic 112–130; BP diastolic 67–77; PULSE 67–188; RESP 18–20
[2019-02-18] MEDS: ACCU-CHEK XX SCH ×4 (00:28→18:52)
[2019-02-18] MEDS: LEVALBUTEROL (NEB) 0.63 MG/3 ML AMP HHN SCH ×4 (01:28→19:20)
--- NOTE | 2019-02-18 07:45 | PN ---
DATE: 02/15/2019 Postop day #4 (second operation). Status post laparotomy, washout of the peritoneal cavity, placement of a diverting loop ileostomy in right lower quadrant for protection of the anastomosis in the colorectal area, which has sustained a small leak. SUBJECTIVE: Feels better. No specific complaint. OBJECTIVE: GENERAL: Awake, alert and oriented, in bed lying down, in no acute distress. VITAL SIGNS: Temperature maximum today 98.7, heart rate has been fluctuating between 94 and 103, in atrial fibrillation; respiratory rate 18 or 20, blood pressure 113/63, saturation 97% on 2 liters nasal cannula. HEART: Atrial fibrillation in the 90s and 100s. LUNGS: Decreased breathing sound mainly on the right side. ABDOMEN: Distended. Bowel sound is present. Ileostomy is functioning. There is a lot of liquidish material in the ileostomy bag. Midline dressing was changed. The wound is not very clean, so we put new sterile sponges covering the midline wound. There are 2 Ayan drainage tubes which is draining a little bit of serosanguineous fluid. There is a pigtail which has been there since a long time ago connected to the accardeon bag and is draining a slight amount of purulent material. Abdomen is not tender. EXTREMITIES: Lower extremities, no calf tenderness. LABORATORY DATA: There is no hematology since 4 days ago. Chemistry yesterday, sodium, potassium, BUN, creatinine normal. Chest x-ray from 4 days ago, nothing today. ASSESSMENT: The patient appears better than before this operation, all of the tubes are in place. He is tolerating regular diet. PLAN: Continue current care. Change dressing daily. Get a chest x-ray today or tomorrow and do some blood work tomorrow. Dictated By: LIAT LOOMIS MD PS/NTS Conf#: [id number] DID#: [id number]
[2019-02-18] MEDS: CEFEPIME 2GM/50 ML (PMX) 50 ML IVPB SCH (08:33)
[2019-02-18] MEDS: NYSTATIN SUSP 5 ML CUP PO SCH ×4 (08:41→20:55)
[2019-02-18] MEDS: ATENOLOL 50 MG TAB PO SCH ×2 (08:42→20:55)
[2019-02-18] MEDS: FUROSEMIDE 20 MG INJ IV SCH (08:42)
[2019-02-18] MEDS: ENOXAPARIN 80 MG/0.8 ML SYG SC SCH ×2 (08:59→21:12)
--- NOTE | 2019-02-18 11:08 | CONS ---
Assessment/Plan Assessment/Plan Hospital Course (Demo Recall) assessment/impression # sepsis, respiratory - sepsis due to complicated intra-abdominal infection and pneumonia, resolving - recurrent pleural effusion, follow up chest US on 02/17/2019 showed small R sided effusion - congested cough probably due to pleural effusion and fluid overload, influenza AB negative on 02/17/2019. Improving - R pleural effusion, exudative process, parapneumonic effusion LDH 1601 protein 3.2, no e/o malignancy on cytology - s/p R sided thoracentesis on 02/05/2019 - VIJAY # GI, onc - s/p ex lap, washout of abdominal abscess, CLEVE, diverting loop ileostomy on 02/11/2019 - s/p open Reagan reversal and colorectal low pelvic anastomosis, segmental partial colectomy, and open incarcerated incisional and parastomal hernia repairs with mesh by Dr. Art on 01/21/2019 - thrush, resolving - follow up CT on 02/04/2019 did not identify definite point of leak--> anastomotic leak was identified on gastograffin - s/p CT guided drainage of abscess in LLQ on 02/01/2019 - Abdominal wound culture 01/30/19 and abscess culture 01/31/19 grew pseudomonas, joseline albicans and glabrata - S/p colostomy reversal - Stage III sigmoid colon cancer, status post prior colectomy/colostomy and chem o in 2017 # renal, cardiovascular - Acute kidney injury on chronic kidney disease, resolved - Acute on chronic diastolic CHF, improved - Atrial fibrillation. - Hx hypertension - Hx left upper extremity DVT - Superficial thrombus in R cephalic vein in the forearm and in L cephalic vein in the antecubital fossa as visualized on NOY 02/05/2019 # other conditions - R conjunctivitis, resolved after neomycin eye drop x 7 days recommendations: - pending result: sputum culture from 02/16/2019 (prelim nl tex) - If his sputum culture is unremarkable, we may de-escalate or his his antibiotic, cefepime (02/04/2019-). Pt previously took meropenem (01/30/2019- 02/03/2019), metronidazole (02/04/2019-02/16/2019) - continue fluconazole (01/30/2019-) and nystatin (02/12/2019-) until thrush re solves - management d/w patient and with Dr. Vázquez. Thank you Consultation Date/Type/Reason Admit Date/Time Jan 21, 2019 at 06:18 Initial Consult Date 01/30/19 Type of Consult ID Requesting Provider: ODELL PACHECO Date/Time of Note DATE: 02/18/19 TIME: 11:05 Detailed Summary Eyes: no complaints ENT: no complaints Respiratory: cough (occasional), sputum (clear ); No pain, No shortness of breath, No wheezing Cardiovascular: no complaints Gastrointestinal: nausea (intermittent), passing stool (liquid stool in ileostomy large amts per pt ), other (+midabdominal incision wound); No pain, No constipation, No decreased appetite Genitourinary: no complaints Musculoskeletal: no complaints Skin: other (mid abdominal incision site) Neurologic: no complaints Psychological: nl mood/affect Exam/Review of Systems Exam Vitals Vital Signs Date Temp Pulse Resp B/P (MAP) Pulse Ox O2 O2 Flow FiO2 Time Delivery Rate 02/18/19 71 17 96 08:14 02/18/19 Nasal 2.0 07:56 Cannula 02/18/19 98.0 112/75 07:39 (87) 02/18/19 21 01:28 Intake and Output 02/17/19 02/17/19 02/18/19 1515:00 23:00 07:00 IntakeIntake Total 1160 ml 800 ml OutputOutput Total 1000 ml 2110 ml BalanceBalance 160 ml -1310 ml Allergies Coded Allergies No Known Allergy (Unverified01/30/19) Exam Constitutional: alert, oriented, well developed, other (awake, alert, short of breath and tachypneic) Psych: anxiety, other (c/o unable to sleep) Head: normocephalic, atraumatic Eyes: nl conjunctiva, nl lids, nl sclera ENMT: nl external ears & nose, nl nasal mucosa & septum, mucosa pink and moist (no thrush) Neck: supple, non-tender Respiratory: diminished breath sounds, wheezing (bilaterally), other (Short of breath, tachypneic) Cardiovascular: regular rate and rhythm, nl pulses Gastrointestinal: bowel sounds (normoactive), distended, firm, tender, other (midabdominal incision site with abbey, midline opening with slough, small amt of yellow drainage noted. R lateral abdomen with a dry blister. LUQ ostomy site draining serosanguinous fluid with small amt of purulent looking fluid mixed in, LLQ surgical drain containing small amt of yellow/brown fluid) Genitourinary - Male: other (no f/c) Musculoskeletal: nl extremities to inspection Extremities: normal pulses Neurological: nl mental status, nl speech, nl strength Skin: nl turgor; No rash or lesions Constitutional: alert, oriented, well developed Psych: no complaints, nl mood/affect Head: normocephalic, atraumatic Eyes: nl conjunctiva, nl lids, nl sclera ENMT: nl external ears & nose, nl nasal mucosa & septum, mucosa pink and moist (yellow discoloration of tongue g/w thrush - improving ) Neck: supple, non-tender, other (no swelling) Respiratory: congested cough, diminished breath sounds Cardiovascular: regular rate and rhythm, nl pulses Gastrointestinal: soft, distended, surgical scars (mid abdominal incision site covered with a c/d/i abd pad, minimal drainage from incision. There are abbey and mid incision site wound dehiscence noted. R and L RUDDY sites draining min amt sanguinous fluid. L external drain with scant drainage noted. ), other (+RLQ ileostomy - with yellow loose/liquid stool noted.) Musculoskeletal: nl extremities to inspection Extremities: normal pulses Neurological: [employer] II-X[employer] intact, nl mental status, nl speech, nl strength Skin: nl turgor; No rash or lesions Results Result Diagram: 02/16/19 0606 02/17/19 0616 Results 24hrs Laboratory Tests Test 02/17/19 11:38 02/17/19 17:22 02/17/19 23:07 02/18/19 05:36 Bedside Glucose 167 126 111 111 Test 02/18/19 06:15 Prealbumin 18.3 Imaging Imaging CXR 02/18/19 IMPRESSION: Stable appearance of the chest including small to moderate right pleural effusion which obscures the right lung base and diaphragm. Stable cardiomegaly. Chest US 02/17/19 IMPRESSION: Small right pleural effusion. Medications Medication Current Medications Hydralazine HCl (Apresoline) 10 mg Q4H PRN IV >150/95 Last administered on 01/24/19at 05:34; Admin Dose 10 MG; Start 01/21/19 at 14:00 Metoprolol Tartrate (Lopressor) 5 mg Q4H PRN IV HR>110 HOld SBP<100 Last administered on 02/15/19 08:21; Admin Dose 5 MG; Start 01/23/19 at 20:30 Levalbuterol (Xopenex Neb) 0.63 mg Q6H RESP THERAPY HHN Last administered on 02/18/19 08:12; Admin Dose 0.63 MG; Start 01/24/19 at 23:30 Acetaminophen (Tylenol Tab) 650 mg Q6H PRN PO MILD PAIN(1-3)OR ELEVATED TEMP Last administered on 02/10/19 21:54; Admin Dose 650 MG; Start 01/29/19 at 23:30 Al Hydrox/Mg Hydrox/Simethicone (Mag-Al Plus) 30 ml Q4H PRN PO GASTROINTESTINAL UPSET Last administered on 01/30/19 18:39; Admin Dose 30 ML; Start 01/29/19 at 23:30 Atenolol (Tenormin) 50 mg BID PO Last administered on 02/18/19 08:42; Admin Dose 50 MG; Start 01/30/19 at 21:00 Cefepime HCl 50 ml @ 100 mls/hr Q12 IVPB Last administered on 02/18/19 08:33; Admin Dose 100 MLS/HR; Start 02/04/19 at 14:00 Morphine Sulfate (morphine) 2 mg Q2H PRN IV PAIN LEVEL 6-10; Start 02/11/19 at 16:30 Acetaminophen/ Hydrocodone Bitart ([place] (5/325)) 1 tab Q6H PRN PO PAIN LEVEL 6-10; Start 02/11/19 at 16:30 Fluconazole 100 ml @ 100 mls/hr Q24H IVPB Last administered on 02/17/19 12:37; Admin Dose 100 MLS/HR; Start 02/12/19 at 12:30 Nystatin (Nystatin Susp) 5 ml QID PO Last administered on 02/18/19 08:41; Admin Dose 5 ML; Start 02/12/19 at 13:00 Diltiazem HCl (Cardizem Cd) 120 mg DAILY@2100 PO Last administered on 02/17/19 20:31; Admin Dose 120 MG; Start 02/15/19 at 21:00 Diagnostic Test (Pha) (Accu-Chek) 1 ea Q6 XX Last administered on 02/18/19at 05:45; Admin Dose 1 EA; Start 02/15/19 at 12:00 Furosemide (Lasix) 20 mg DAILY IV Last administered on 02/18/19at 08:42; Admin Dose 20 MG; Start 02/17/19 at 09:00 Enoxaparin Sodium (Lovenox) 80 mg BID SC Last administered on 02/18/19at 08:59; Admin Dose 80 MG; Start 02/16/19 at 21:00 JUSTYN WORLEY NP February 18, 2019 11:08
[2019-02-18] MEDS: FLUCONAZOLE 200 MG (PMX) 100 ML IVPB SCH (12:03)
--- NOTE | 2019-02-18 13:00 | PN ---
Date/Time of Note Date/Time of Note DATE: 02/18/19 TIME: 12:57 Assessment/Plan VTE Prophylaxis Risk score (from Ns)>0 risk: 9 SCD applied (from Nsg): Yes Pharmacological prophylaxis: LMWH Lines/Catheters IV Catheter Type (from Nrsg): Peripheral IV Central line still needed: Yes Urinary Cath still in place: No Assessment/Plan Hospital Course Patient is awake alert, continues to be in atrial fibrillation with episode of rapid ventricular response overnight, currently heart rates in the low 100s. Patient is afebrile. Status post removal of abdominal drains by surgeon, patient still has accordion drain. Assessment/Plan -Atrial fibrillation with rapid ventricular response. Dr. Alejandro is following in cardiology consultation. Continue Lovenox and Cardizem, telemetry monitoring. -Anastomotic leak and intra-abdominal abscess, S/p CT guided drainage of abscess in LLQ on 02/01/2019. Status post laparotomy, washout of the peritoneal cavity, placement of a diverting loop ileostomy in right lower quadrant for protection of the anastomosis in the colorectal area on 02/11/[address] Art. -Sepsis secondary to intra-abdominal infection and pneumonia, resolved, s/p treatment with antibiotics. Dr. Bosch is following in infection disease c onsultation. -R pleural effusion, s/p R sided thoracentesis on 02/05/2019 -S/p open Reagan reversal and colorectal low pelvic anastomosis, segmental partial colectomy, and open incarcerated incisional and parastomal hernia repairs with mesh by Dr. Art on 01/21/2019. Continue [place] and Dilaudid as needed for pain and Zofran as needed for nausea. -Stage III sigmoid colon cancer, status post surgery and chemo in 2018. -Acute kidney injury on chronic kidney disease, monitor urine output BUN and c reatinine. Dr. Stuart is following in nephrology consultation. -Acute on chronic diastolic CHF -Protein calorie malnutrition, improved. Patient required TPN which is currently stopped, patient tolerates a regular diet. -Obstructive sleep apnea -History of hypertension -History of left upper extremity DVT, status post bilateral upper extremity ultrasound on 02/05/2019: No sonographic evidence for bilateral upper extremity deep venous thrombosis. Superficial thrombus in the right cephalic vein in the forearm. Cephalic vein in the upper arm is patent. Superficial thrombus in the left cephalic vein in the antecubital fossa. Cephalic vein in the upper arm is patent. Further recommendations based on clinical course. Plan of care discussed with Dr. Fox. Result Diagram: 02/16/19 0606 02/17/19 0616 Results 24hrs Laboratory Tests Test 02/17/19 17:22 02/17/19 23:07 02/18/19 05:36 02/18/19 06:15 Bedside Glucose 126 111 111 Prealbumin 18.3 Test 02/18/19 11:52 Bedside Glucose 131 Exam/Review of Systems Exam Vitals Vital Signs Date Temp Pulse Resp B/P (MAP) Pulse Ox O2 O2 Flow FiO2 Time Delivery Rate 02/18/19 98.0 89 18 113/77 98 12:22 (89) 02/18/19 Nasal 2.0 07:56 Cannula 02/18/19 21 01:28 Intake and Output 02/17/19 02/17/19 02/18/19 1515:00 23:00 07:00 IntakeIntake Total 1160 ml 800 ml OutputOutput Total 1000 ml 2110 ml BalanceBalance 160 ml -1310 ml Constitutional: alert, oriented Respiratory: clear to auscultation Cardiovascular: irregular rhythm Gastrointestinal: soft, other (Abdominal surgical incision, accordion drain) Extremities: normal pulses Neurological: nl mental status Results Results 24hrs Laboratory Tests Test 02/17/19 17:22 02/17/19 23:07 02/18/19 05:36 02/18/19 06:15 Bedside Glucose 126 111 111 Prealbumin 18.3 Test 02/18/19 11:52 Bedside Glucose 131 Medications Medication Current Medications Hydralazine HCl (Apresoline) 10 mg Q4H PRN IV >150/95 Last administered on 01/24/19at 05:34; Admin Dose 10 MG; Start 01/21/19 at 14:00 Metoprolol Tartrate (Lopressor) 5 mg Q4H PRN IV HR>110 HOld SBP<100 Last admin istered on 02/15/19 08:21; Admin Dose 5 MG; Start 01/23/19 at 20:30 Levalbuterol (Xopenex Neb) 0.63 mg Q6H RESP THERAPY HHN Last administered on 02/18/19 08:12; Admin Dose 0.63 MG; Start 01/24/19 at 23:30 Acetaminophen (Tylenol Tab) 650 mg Q6H PRN PO MILD PAIN(1-3)OR ELEVATED TEMP Last administered on 02/10/19 21:54; Admin Dose 650 MG; Start 01/29/19 at 23:30 Al Hydrox/Mg Hydrox/Simethicone (Mag-Al Plus) 30 ml Q4H PRN PO GASTROINTESTINAL UPSET Last administered on 01/30/19 18:39; Admin Dose 30 ML; Start 01/29/19 at 23:30 Atenolol (Tenormin) 50 mg BID PO Last administered on 02/18/19 08:42; Admin Dose 50 MG; Start 01/30/19 at 21:00 Cefepime HCl 50 ml @ 100 mls/hr Q12 IVPB Last administered on 02/18/19 08:33; Admin Dose 100 MLS/HR; Start 02/04/19 at 14:00 Morphine Sulfate (morphine) 2 mg Q2H PRN IV PAIN LEVEL 6-10; Start 02/11/19 at 16:30 Acetaminophen/ Hydrocodone Bitart ([place] (5/325)) 1 tab Q6H PRN PO PAIN LEVEL 6-10; Start 02/11/19 at 16:30 Fluconazole 100 ml @ 100 mls/hr Q24H IVPB Last administered on 02/18/19 12:03; Admin Dose 100 MLS/HR; Start 02/12/19 at 12:30 Nystatin (Nystatin Susp) 5 ml QID PO Last administered on 02/18/19 12:04; Admin Dose 5 ML; Start 02/12/19 at 13:00 Diltiazem HCl (Cardizem Cd) 120 mg DAILY@2100 PO Last administered on 02/17/19 20:31; Admin Dose 120 MG; Start 02/15/19 at 21:00 Diagnostic Test (Pha) (Accu-Chek) 1 ea Q6 XX Last administered on 02/18/19 11:53; Admin Dose 1 EA; Start 02/15/19 at 12:00 Furosemide (Lasix) 20 mg DAILY IV Last administered on 02/18/19 08:42; Admin Dose 20 MG; Start 02/17/19 at 09:00 Enoxaparin Sodium (Lovenox) 80 mg BID SC Last administered on 5/6/19at 08:59; Admin Dose 80 MG; Start 02/16/19 at 21:00 ODELL PACHECO February 18, 2019 13:00
--- NOTE | 2019-02-18 13:10 | PN ---
Date/Time of Note Date/Time of Note DATE: 02/18/19 TIME: 13:07 Assessment/Plan VTE Prophylaxis Risk score (from Ns)>0 risk: 9 SCD applied (from Ns): Yes Pharmacological prophylaxis: other Lines/Catheters IV Catheter Type (from Nrsg): Peripheral IV Urinary Cath still in place: No Assessment/Plan Assessment/Plan s/p loop ileostomy for anastomotic leak dispo planning and may need placement due to wound care needs will keep the perc drain for now due to draining infection Result Diagram: 02/16/19 0606 02/17/19 0616 Results 24hrs Laboratory Tests Test 02/17/19 17:22 02/17/19 23:07 02/18/19 05:36 02/18/19 06:15 Bedside Glucose 126 111 111 Prealbumin 18.3 Test 02/18/19 11:52 Bedside Glucose 131 Subjective 24 Hr Interval Summary Free Text/Dictation patient improving slowly, RUDDY drains with minimal serosanguinous output nutritionally prealbumin is appropriate and will stop TPN patient tolerating regular diet Exam/Review of Systems Exam Vitals Vital Signs Date Temp Pulse Resp B/P (MAP) Pulse Ox O2 O2 Flow FiO2 Time Delivery Rate 02/18/19 98.0 89 18 113/77 98 12:22 (89) 02/18/19 Nasal 2.0 07:56 Cannula 02/18/19 21 01:28 Intake and Output 02/17/19 02/17/19 02/18/19 1414:59 22:59 06:59 IntakeIntake Total 1160 ml 800 ml OutputOutput Total 1000 ml 2110 ml BalanceBalance 160 ml -1310 ml Exam small open wounds ileostomy with output Results Results 24hrs Laboratory Tests Test 02/17/19 17:22 02/17/19 23:07 02/18/19 05:36 02/18/19 06:15 Bedside Glucose 126 111 111 Prealbumin 18.3 Test 02/18/19 11:52 Bedside Glucose 131 Medications Medication Current Medications Hydralazine HCl (Apresoline) 10 mg Q4H PRN IV >150/95 Last administered on 01/24/19at 05:34; Admin Dose 10 MG; Start 01/21/19 at 14:00 Metoprolol Tartrate (Lopressor) 5 mg Q4H PRN IV HR>110 HOld SBP<100 Last administered on 02/15/19 08:21; Admin Dose 5 MG; Start 01/23/19 at 20:30 Levalbuterol (Xopenex Neb) 0.63 mg Q6H RESP THERAPY HHN Last administered on 02/18/19 08:12; Admin Dose 0.63 MG; Start 01/24/19 at 23:30 Acetaminophen (Tylenol Tab) 650 mg Q6H PRN PO MILD PAIN(1-3)OR ELEVATED TEMP Last administered on 02/10/19 21:54; Admin Dose 650 MG; Start 01/29/19 at 23:30 Al Hydrox/Mg Hydrox/Simethicone (Mag-Al Plus) 30 ml Q4H PRN PO GASTROINTESTINAL UPSET Last administered on 01/30/19 18:39; Admin Dose 30 ML; Start 01/29/19 at 23:30 Atenolol (Tenormin) 50 mg BID PO Last administered on 02/18/19 08:42; Admin Dose 50 MG; Start 01/30/19 at 21:00 Morphine Sulfate (morphine) 2 mg Q2H PRN IV PAIN LEVEL 6-10; Start 02/11/19 at 16:30 Acetaminophen/ Hydrocodone Bitart ([place] (5/325)) 1 tab Q6H PRN PO PAIN LEVEL 6-10; Start 02/11/19 at 16:30 Fluconazole 100 ml @ 100 mls/hr Q24H IVPB Last administered on 02/18/19 12:03; Admin Dose 100 MLS/HR; Start 02/12/19 at 12:30 Nystatin (Nystatin Susp) 5 ml QID PO Last administered on 02/18/19 12:04; Admin Dose 5 ML; Start 02/12/19 at 13:00 Diltiazem HCl (Cardizem Cd) 120 mg DAILY@2100 PO Last administered on 02/17/19 20:31; Admin Dose 120 MG; Start 02/15/19 at 21:00 Diagnostic Test (Pha) (Accu-Chek) 1 ea Q6 XX Last administered on 02/18/19 11:53; Admin Dose 1 EA; Start 02/15/19 at 12:00 Furosemide (Lasix) 20 mg DAILY IV Last administered on 02/18/19 08:42; Admin Dose 20 MG; Start 02/17/19 at 09:00 Enoxaparin Sodium (Lovenox) 80 mg BID SC Last administered on 02/18/19at 08:59; Admin Dose 80 MG; Start 02/16/19 at 21:00 Ann FERNANDEZ February 18, 2019 13:10
--- NOTE | 2019-02-18 13:29 | CONS ---
Assessment/Plan Assessment/Plan Hospital Course (Demo Recall) IMPRESSION: 1. Tachycardia c/w AF now improved HR control. NL EF by echo 60-65 2. Possible congestive heart failure by chest x-ray with the patient having the onset of acute renal failure at this time. 3. Hypertension 4. Postoperative status post reversal colostomy. 5. Fevers postop. 6. Renal failure, acute.-improved now 7. History of colon carcinoma status post prior colectomy with colostomy with anastomatic leak by abd CT and now post-op s/p repeat surgery with removal abscess and placement of drains 8. Hypernatremia, improved 9. Hypomagnesemia-improved 10. Leukocytosis. Recc: -Tele -Continue PO BB and now CCB with slight increase -s/p dose IVP digoxin to assure good HR control -Pain control -Continue abx's and f/u cx data -Follow volume status closely with ongoing lasix which I will decrease to daily -Continue lovenox -routine post-op care -now off TPN -influenza swabs negative Consultation Date/Type/Reason Admit Date/Time Jan 21, 2019 at 06:18 Initial Consult Date 01/23/19 Type of Consult Cardiology Reason for Consultation tachycardia Requesting Provider: ODELL PACHECO Date/Time of Note DATE: 02/18/19 TIME: 13:28 Exam/Review of Systems Vital Signs Vitals Vital Signs Date Temp Pulse Resp B/P (MAP) Pulse Ox O2 O2 Flow FiO2 Time Delivery Rate 02/18/19 98.0 89 18 113/77 98 12:22 (89) 02/18/19 Nasal 2.0 07:56 Cannula 02/18/19 21 01:28 Intake and Output 02/17/19 02/17/19 02/18/19 1515:00 23:00 07:00 IntakeIntake Total 1160 ml 800 ml OutputOutput Total 1000 ml 2110 ml BalanceBalance 160 ml -1310 ml Exam Exam Review of Systems: CONSTITUTIONAL: No fevers, chills. PULMONARY: No sob CARDIOVASCULAR: No chest pain/palpitations GASTROINTESTINAL: No nausea/vomiting. GENITOURINARY: No hematuria/dysuria. MUSCULOSKELETAL: No myagias/arthalgias. PSYCHIATRIC: The patient denies depression. NEUROLOGIC: No weakness Constitutional: alert, oriented ENMT: mucosa pink and moist Neck: supple, jvd (9 cm water) Respiratory: diminished breath sounds Cardiovascular: regular rate and rhythm Gastrointestinal: soft, non-tender Musculoskeletal: muscle tone (normal) Extremities: edema (none) Neurological: other (No focal deficits) Labs Result Diagram: 02/16/19 0606 02/17/19 0616 Results 24hrs Laboratory Tests Test 02/17/19 17:22 02/17/19 23:07 02/18/19 05:36 02/18/19 06:15 Bedside Glucose 126 111 111 Prealbumin 18.3 Test 02/18/19 11:52 Bedside Glucose 131 Medications Medications Current Medications Hydralazine HCl (Apresoline) 10 mg Q4H PRN IV >150/95 Last administered on 01/24/19 05:34; Admin Dose 10 MG; Start 01/21/19 at 14:00 Metoprolol Tartrate (Lopressor) 5 mg Q4H PRN IV HR>110 HOld SBP<100 Last administered on 02/15/19 08:21; Admin Dose 5 MG; Start 01/23/19 at 20:30 Levalbuterol (Xopenex Neb) 0.63 mg Q6H RESP THERAPY HHN Last administered on 02/18/19 08:12; Admin Dose 0.63 MG; Start 01/24/19 at 23:30 Acetaminophen (Tylenol Tab) 650 mg Q6H PRN PO MILD PAIN(1-3)OR ELEVATED TEMP Last administered on 02/10/19at 21:54; Admin Dose 650 MG; Start 01/29/19 at 23:30 Al Hydrox/Mg Hydrox/Simethicone (Mag-Al Plus) 30 ml Q4H PRN PO GASTROINTESTINAL UPSET Last administered on 01/30/19at 18:39; Admin Dose 30 ML; Start 01/29/19 at 23:30 Atenolol (Tenormin) 50 mg BID PO Last administered on 02/18/19 08:42; Admin Dose 50 MG; Start 01/30/19 at 21:00 Morphine Sulfate (morphine) 2 mg Q2H PRN IV PAIN LEVEL 6-10; Start 02/11/19 at 16:30 Acetaminophen/ Hydrocodone Bitart ([place] (5/325)) 1 tab Q6H PRN PO PAIN LEVEL 6-10; Start 4/29/19 at 16:30 Fluconazole 100 ml @ 100 mls/hr Q24H IVPB Last administered on 02/18/19 12:03; Admin Dose 100 MLS/HR; Start 02/12/19 at 12:30 Nystatin (Nystatin Susp) 5 ml QID PO Last administered on 02/18/19 12:04; Admin Dose 5 ML; Start 02/12/19 at 13:00 Diltiazem HCl (Cardizem Cd) 120 mg DAILY@2100 PO Last administered on 02/17/19 20:31; Admin Dose 120 MG; Start 02/15/19 at 21:00 Diagnostic Test (Pha) (Accu-Chek) 1 ea Q6 XX Last administered on 02/18/19 11:53; Admin Dose 1 EA; Start 02/15/19 at 12:00 Furosemide (Lasix) 20 mg DAILY IV Last administered on 02/18/19 08:42; Admin Dose 20 MG; Start 02/17/19 at 09:00 Enoxaparin Sodium (Lovenox) 80 mg BID SC Last administered on 02/18/19 08:59; Admin Dose 80 MG; Start 02/16/19 at 21:00 EUGENE ANDERSON February 18, 2019 13:29
[2019-02-18] MEDS: METOPROLOL 5 MG INJ IV PRN (18:53)
[2019-02-18] MEDS: DILTIAZEM (CD) 120 MG CAP PO SCH (20:55)
[2019-02-19] VITALS (12 sets, daily range): BP systolic 107–121; BP diastolic 65–79; PULSE 70–93; RESP 18–20
[2019-02-19] MEDS: ACCU-CHEK XX SCH ×4 (00:30→17:52)
[2019-02-19] MEDS: LEVALBUTEROL (NEB) 0.63 MG/3 ML AMP HHN SCH ×4 (01:20→21:43)
[2019-02-19] MEDS: ATENOLOL 50 MG TAB PO SCH ×2 (09:02→21:00)
[2019-02-19] MEDS: FUROSEMIDE 20 MG INJ IV SCH (09:02)
[2019-02-19] MEDS: DILTIAZEM (CD) 120 MG CAP PO SCH ×2 (09:02→21:00)
[2019-02-19] MEDS: NYSTATIN SUSP 5 ML CUP PO SCH ×4 (09:02→21:05)
--- NOTE | 2019-02-19 09:23 | CONS ---
Consult Date/Type/Reason Admit Date/Time Jan 21, 2019 at 06:18 Initial Consult Date Requesting Provider: ODELL PACHECO Date/Time of Note DATE: 02/19/19 TIME: 09:19 Subjective NO acute events - BP in good range - comfortable - a. fib now - had some RVR last night - better currently. ROS: No fever, no chills, no nausea, no vomiting, no diarrhea/constipation + productive cough Objective Vitals Vital Signs Date Temp Pulse Resp B/P (MAP) Pulse Ox O2 O2 Flow FiO2 Time Delivery Rate 02/19/19 89 20 93 21 08:48 02/19/19 98.0 112/70 07:59 (84) 02/18/19 Nasal 2.0 07:56 Cannula Intake and Output 02/18/19 02/18/19 02/19/19 1515:00 23:00 07:00 IntakeIntake Total 800 ml 480 ml OutputOutput Total 6000 ml 1480 ml BalanceBalance -5200 ml -1000 ml Exam Geneal: WN/WD/NAD, AOx 3 HEENT: Unicetric/atraumatic/EOMI (follows commands) NECK: JVD elevated, no thyromegaly Lymph: no lymphadenopathy HEART: irregular with no S3, II/ systolic murmur at apex LUNGS: Coarse sounds ABD: soft, NT, ND, +BS : Intact Neuro: non focal SKIN: chronic changes EXT: trace edema Results/Medications Result Diagram: 02/16/19 0606 02/17/19 0616 Results 24 hrs Laboratory Tests Test 02/18/19 11:52 02/18/19 17:22 02/19/19 00:23 02/19/19 05:59 Bedside Glucose 131 106 109 118 Home Meds Active Scripts Carvedilol* (Carvedilol*) 25 Mg Tablet, 25 MG PO BID for 30 Days, TAB Prov:ODELL PACHECO 01/15/18 Furosemide* (Furosemide*) 20 Mg Tablet, 20 MG PO DAILY for 30 Days, TAB Prov:ODELL PACHECO 01/15/18 Reported Medications Apixaban* (Eliquis*) 5 Mg Tablet, 5 MG PO BID, TAB 11/02/18 Losartan Potassium* (Losartan Potassium*) 100 Mg Tablet, 100 MG PO DAILY, TAB 11/02/18 Nifedipine* (Nifedipine ER*) 60 Mg Tablet.sa, 60 MG PO BID, TAB.SA 11/02/18 Atorvastatin Calcium* (Atorvastatin Calcium*) 20 Mg Tablet, 20 MG PO QHS, #30 TAB 01/07/18 Medications Current Medications Hydralazine HCl (Apresoline) 10 mg Q4H PRN IV >150/95 Last administered on 01/24/19 05:34; Admin Dose 10 MG; Start 01/21/19 at 14:00 Metoprolol Tartrate (Lopressor) 5 mg Q4H PRN IV HR>110 HOld SBP<100 Last administered on 02/18/19 18:53; Admin Dose 5 MG; Start 01/23/19 at 20:30 Levalbuterol (Xopenex Neb) 0.63 mg Q6H RESP THERAPY HHN Last administered on 02/19/19 08:48; Admin Dose 0.63 MG; Start 01/24/19 at 23:30 Acetaminophen (Tylenol Tab) 650 mg Q6H PRN PO MILD PAIN(1-3)OR ELEVATED TEMP Last administered on 02/10/19 21:54; Admin Dose 650 MG; Start 01/29/19 at 23:30 Al Hydrox/Mg Hydrox/Simethicone (Mag-Al Plus) 30 ml Q4H PRN PO GASTROINTESTINAL UPSET Last administered on 01/30/19 18:39; Admin Dose 30 ML; Start 01/29/19 at 23:30 Atenolol (Tenormin) 50 mg BID PO Last administered on 02/18/19 20:55; Admin Dose 50 MG; Start 01/30/19 at 21:00 Morphine Sulfate (morphine) 2 mg Q2H PRN IV PAIN LEVEL 6-10; Start 02/11/19 at 16:30 Acetaminophen/ Hydrocodone Bitart ([place] (5/325)) 1 tab Q6H PRN PO PAIN LEVEL 6-10; Start 02/11/19 at 16:30 Fluconazole 100 ml @ 100 mls/hr Q24H IVPB Last administered on 02/18/19 12:03; Admin Dose 100 MLS/HR; Start 02/12/19 at 12:30 Nystatin (Nystatin Susp) 5 ml QID PO Last administered on 02/18/19 20:55; Admin Dose 5 ML; Start 02/12/19 at 13:00 Diagnostic Test (Pha) (Accu-Chek) 1 ea Q6 XX Last administered on 02/19/19at 0 6:07; Admin Dose 1 EA; Start 02/15/19 at 12:00 Furosemide (Lasix) 20 mg DAILY IV Last administered on 02/18/19at 08:42; Admin Dose 20 MG; Start 02/17/19 at 09:00 Enoxaparin Sodium (Lovenox) 80 mg BID SC Last administered on 02/18/19at 21:12; Admin Dose 80 MG; Start 02/16/19 at 21:00 Diltiazem HCl (Cardizem Cd) 120 mg BID PO Last administered on 02/18/19at 20:55; Admin Dose 120 MG; Start 02/18/19 at 21:00 Assessment/Plan Hospital Course (Demo Recall) 1. A. fib - rate cntrolled now- had few episodes of RVR, better now 2. Possible congestive heart failure by chest x-ray with the patient having the onset of acute renal failure at this time. Improved CHF. Better. Keep euvolemic. Stable. Better now. 3. Hypertension, mildly elevated. BP well optimized nw. Will re-check post am meds. Treated. 4. Postoperative status post reversal colostomy - GI team follows,. Con't to recover. On therapy. Surgical team follows. Drains. 5. No new episodes. 6. Renal failure, acute.-improved now - renal team follows. CR stable. 7. History of colon carcinoma status post prior colectomy with colostomy - now with therapy post op. 8. Hypernatremia, improved 9. Hypomagnesemia-improved 10. Leukocytosis. On anti-Bx, better overall. SUSSY ANTHONY MD February 19, 2019 09:23
[2019-02-19] MEDS: ENOXAPARIN 80 MG/0.8 ML SYG SC SCH ×2 (10:05→21:51)
[2019-02-19] MEDS: FLUCONAZOLE 200 MG (PMX) 100 ML IVPB SCH (12:13)
--- NOTE | 2019-02-19 14:21 | CONS ---
Assessment/Plan Assessment/Plan Hospital Course (Demo Recall) assessment/impression # sepsis, respiratory - sepsis due to complicated intra-abdominal infection and pneumonia, resolved - recurrent pleural effusion, follow up chest US on 02/17/2019 showed small R sided effusion - congested cough probably due to pleural effusion and fluid overload, influenza AB negative on 02/17/2019. Improving and stable on room air - R pleural effusion, exudative process, parapneumonic effusion LDH 1601 protein 3.2, no e/o malignancy on cytology - s/p R sided thoracentesis on 02/05/2019 - VIJAY # GI, onc - s/p ex lap, washout of abdominal abscess, CLEVE, diverting loop ileostomy on 02/11/2019 - s/p open Reagan reversal and colorectal low pelvic anastomosis, segmental partial colectomy, and open incarcerated incisional and parastomal hernia repairs with mesh by Dr. Art on 01/21/2019 - thrush, resolving - follow up CT on 02/04/2019 did not identify definite point of leak--> anastomotic leak was identified on gastograffin - s/p CT guided drainage of abscess in LLQ on 02/01/2019 - abdominal wound culture 01/30/19 and abscess culture 01/31/19 grew pseudomonas, joseline albicans and glabrata - s/p colostomy reversal - stage III sigmoid colon cancer, status post prior colectomy/colostomy and chemo in 2017 # renal, cardiovascular - acute kidney injury on chronic kidney disease, resolved - acute on chronic diastolic CHF, improved - atrial fibrillation with RVR, converted to SR - Hx hypertension - Hx left upper extremity DVT - superficial thrombus in R cephalic vein in the forearm and in L cephalic vein in the antecubital fossa as visualized on NOY 02/05/2019 # other conditions - R conjunctivitis, resolved after neomycin eye drop x 7 days recommendations: - Consider Ceftriaxone 1 gm IV daily until repeat imaging shows resolution of intra-abdominal fluid collection. Pt previously took meropenem (01/30/2019- 02/03/2019), metronidazole (02/04/2019-02/16/2019) and cefepime (02/04/2019-02/18/2019) - Continue fluconazole (01/30/2019-) and nystatin (02/12/2019-) until thrush resolves Management d/w patient, CATHERINE Koo, and with Dr. Vázquez. Consultation Date/Type/Reason Admit Date/Time Jan 21, 2019 at 06:18 Initial Consult Date 01/30/19 Type of Consult Infectious Disease Requesting Provider: ODELL PACHECO Date/Time of Note DATE: 02/19/19 TIME: 14:15 24 HR Interval Summary Free Text/Dictation Pt is tolerating regular diet. Cefepime was dc'd by Dr. Art yesterday. Remains afebrile. Influenza screen negative and resp cx revealed normal tex. Pt had Afib with RVR but converted to SR overnight per d/w nursing. DC planning has been initiated per d/w nursing. Exam/Review of Systems Exam Vitals Vital Signs Date Temp Pulse Resp B/P (MAP) Pulse Ox O2 O2 Flow FiO2 Time Delivery Rate 02/19/19 98.0 71 18 118/79 99 12:38 (92) 02/19/19 21 08:48 02/18/19 Nasal 2.0 07:56 Cannula Intake and Output 02/18/19 02/18/19 02/19/19 1515:00 23:00 07:00 IntakeIntake Total 800 ml 480 ml OutputOutput Total 6000 ml 1480 ml BalanceBalance -5200 ml -1000 ml Exam Constitutional: alert, oriented, well developed, obese Psych: nl mood/affect Head: normocephalic, atraumatic Eyes: nl conjunctiva, nl lids, nl sclera ENMT: nl external ears & nose, nl lips & teeth, nl nasal mucosa & septum, mucos a pink and moist (residual thrush noted on posterior tongue) Neck: supple Respiratory: clear to auscultation, diminished breath sounds (R>L), other (On room air) Cardiovascular: regular rate and rhythm, nl pulses Gastrointestinal: soft, distended, surgical scars, other (+RLQ ileostomy bag with yellowish stool; + accordion drain) Genitourinary-Male: nl penis, nl scrotum Musculoskeletal: nl extremities to inspection Extremities: normal pulses Neurological: nl mental status, nl speech (Speech accented; Primarily Estonian speaking) Skin: nl turgor, other (ML abdominal dressing c/d/i with abbey underneath) Results Result Diagram: 02/16/19 0606 02/17/19 0616 Results 24hrs Laboratory Tests Test 02/18/19 17:22 02/19/19 00:23 02/19/19 05:59 02/19/19 12:12 Bedside Glucose 106 109 118 137 Imaging Imaging CXR 02/18/2019: Stable appearance of the chest including small to moderate right pleural effusion which obscures the right lung base and diaphragm. Stable cardiomegaly. Medications Medication Current Medications Hydralazine HCl (Apresoline) 10 mg Q4H PRN IV >150/95 Last administered on 01/24/19 05:34; Admin Dose 10 MG; Start 01/21/19 at 14:00 Metoprolol Tartrate (Lopressor) 5 mg Q4H PRN IV HR>110 HOld SBP<100 Last administered on 02/18/19 18:53; Admin Dose 5 MG; Start 01/23/19 at 20:30 Levalbuterol (Xopenex Neb) 0.63 mg Q6H RESP THERAPY HHN Last administered on 02/19/19 08:48; Admin Dose 0.63 MG; Start 01/24/19 at 23:30 Acetaminophen (Tylenol Tab) 650 mg Q6H PRN PO MILD PAIN(1-3)OR ELEVATED TEMP Last administered on 02/10/19 21:54; Admin Dose 650 MG; Start 01/29/19 at 23:30 Al Hydrox/Mg Hydrox/Simethicone (Mag-Al Plus) 30 ml Q4H PRN PO GASTROINTESTINAL UPSET Last administered on 01/30/19 18:39; Admin Dose 30 ML; Start 01/29/19 at 23:30 Atenolol (Tenormin) 50 mg BID PO Last administered on 02/19/19 09:02; Admin Dose 50 MG; Start 01/30/19 at 21:00 Morphine Sulfate (morphine) 2 mg Q2H PRN IV PAIN LEVEL 6-10; Start 02/11/19 at 16:30 Acetaminophen/ Hydrocodone Bitart ([place] (5/325)) 1 tab Q6H PRN PO PAIN LEVEL 6-10; Start 02/11/19 at 16:30 Fluconazole 100 ml @ 100 mls/hr Q24H IVPB Last administered on 02/19/19at 12:13; Admin Dose 100 MLS/HR; Start 02/12/19 at 12:30 Nystatin (Nystatin Susp) 5 ml QID PO Last administered on 02/19/19 12:13; Admin Dose 5 ML; Start 02/12/19 at 13:00 Diagnostic Test (Pha) (Accu-Chek) 1 ea Q6 XX Last administered on 02/19/19 12:13; Admin Dose 1 EA; Start 02/15/19 at 12:00 Furosemide (Lasix) 20 mg DAILY IV Last administered on 02/19/19 09:02; Admin Dose 20 MG; Start 02/17/19 at 09:00 Enoxaparin Sodium (Lovenox) 80 mg BID SC Last administered on 02/19/19 10:05; Admin Dose 80 MG; Start 02/16/19 at 21:00 Diltiazem HCl (Cardizem Cd) 120 mg BID PO Last administered on 02/19/19 09:02; Admin Dose 120 MG; Start 02/18/19 at 21:00 YVETTE BAÑUELOS NP February 19, 2019 14:21
--- NOTE | 2019-02-19 16:12 | CONS ---
Assessment/Plan Assessment/Plan Hospital Course (Demo Recall) I personally examined the patient today along with BRENDAN Cruz. EMR reviewed. Care coordinated and directed. I discussed care with patient and sons at bedside. I answered there questions. Monitor very closely off abx. Continuation of CTX until drainage abates and imaging ensures complete resolution would be preferable. Consultation Date/Type/Reason Admit Date/Time Jan 21, 2019 at 06:18 Initial Consult Date 01/30/19 Type of Consult ID Requesting Provider: ODELL PACHECO Date/Time of Note DATE: 02/19/19 TIME: 16:10 Exam/Review of Systems Exam Vitals Vital Signs Date Temp Pulse Resp B/P (MAP) Pulse Ox O2 O2 Flow FiO2 Time Delivery Rate 02/19/19 86 20 94 21 14:18 02/19/19 98.0 118/79 12:38 (92) 02/18/19 Nasal 2.0 07:56 Cannula Intake and Output 02/18/19 02/18/19 02/19/19 1515:00 23:00 07:00 IntakeIntake Total 800 ml 480 ml OutputOutput Total 6000 ml 1480 ml BalanceBalance -5200 ml -1000 ml Results Result Diagram: 02/16/19 0606 02/17/19 0616 Results 24hrs Laboratory Tests Test 02/18/19 17:22 02/19/19 00:23 02/19/19 05:59 02/19/19 12:12 Bedside Glucose 106 109 118 137 Medications Medication Current Medications Hydralazine HCl (Apresoline) 10 mg Q4H PRN IV >150/95 Last administered on 01/24/19at 05:34; Admin Dose 10 MG; Start 01/21/19 at 14:00 Metoprolol Tartrate (Lopressor) 5 mg Q4H PRN IV HR>110 HOld SBP<100 Last administered on 02/18/19at 18:53; Admin Dose 5 MG; Start 01/23/19 at 20:30 Levalbuterol (Xopenex Neb) 0.63 mg Q6H RESP THERAPY HHN Last administered on 02/19/19at 14:18; Admin Dose 0.63 MG; Start 01/24/19 at 23:30 Acetaminophen (Tylenol Tab) 650 mg Q6H PRN PO MILD PAIN(1-3)OR ELEVATED TEMP Last administered on 02/10/19 21:54; Admin Dose 650 MG; Start 01/29/19 at 23:30 Al Hydrox/Mg Hydrox/Simethicone (Mag-Al Plus) 30 ml Q4H PRN PO GASTROINTESTINAL UPSET Last administered on 01/30/19 18:39; Admin Dose 30 ML; Start 01/29/19 at 23:30 Atenolol (Tenormin) 50 mg BID PO Last administered on 02/19/19 09:02; Admin Dose 50 MG; Start 01/30/19 at 21:00 Morphine Sulfate (morphine) 2 mg Q2H PRN IV PAIN LEVEL 6-10; Start 02/11/19 at 16:30 Acetaminophen/ Hydrocodone Bitart ([place] (5/325)) 1 tab Q6H PRN PO PAIN LEVEL 6-10; Start 02/11/19 at 16:30 Fluconazole 100 ml @ 100 mls/hr Q24H IVPB Last administered on 02/19/19 12:13; Admin Dose 100 MLS/HR; Start 02/12/19 at 12:30 Nystatin (Nystatin Susp) 5 ml QID PO Last administered on 02/19/19 12:13; Admin Dose 5 ML; Start 02/12/19 at 13:00 Diagnostic Test (Pha) (Accu-Chek) 1 ea Q6 XX Last administered on 02/19/19 12:13; Admin Dose 1 EA; Start 02/15/19 at 12:00 Furosemide (Lasix) 20 mg DAILY IV Last administered on 02/19/19 09:02; Admin Dose 20 MG; Start 02/17/19 at 09:00 Enoxaparin Sodium (Lovenox) 80 mg BID SC Last administered on 02/19/19 10:05; Admin Dose 80 MG; Start 02/16/19 at 21:00 Diltiazem HCl (Cardizem Cd) 120 mg BID PO Last administered on 02/19/19 09:02; Admin Dose 120 MG; Start 02/18/19 at 21:00 KURT SEO MD February 19, 2019 16:11
--- NOTE | 2019-02-19 17:27 | PN ---
Date/Time of Note Date/Time of Note DATE: 02/19/19 TIME: 17:25 Assessment/Plan VTE Prophylaxis Risk score (from Ns)>0 risk: 13 SCD applied (from Nsg): Yes Pharmacological prophylaxis: other Lines/Catheters IV Catheter Type (from Nrsg): Saline Lock Urinary Cath still in place: No Assessment/Plan Assessment/Plan s/p loop ileostomy with abscess dispo planning and wound care and home health dc home when this is set up Result Diagram: 02/16/19 0606 02/17/19 0616 Results 24hrs Laboratory Tests Test 02/19/19 00:23 02/19/19 05:59 02/19/19 12:12 Bedside Glucose 109 118 137 Subjective 24 Hr Interval Summary Free Text/Dictation patient doing well tolerating diet no fevers even though abx were stopped perc drain in appropriate place Exam/Review of Systems Exam Vitals Vital Signs Date Temp Pulse Resp B/P (MAP) Pulse Ox O2 O2 Flow FiO2 Time Delivery Rate 02/19/19 98.0 73 18 121/65 98 16:40 (83) 02/19/19 21 14:18 02/18/19 Nasal 2.0 07:56 Cannula Intake and Output 02/18/19 02/18/19 02/19/19 1414:59 22:59 06:59 IntakeIntake Total 800 ml 480 ml OutputOutput Total 6000 ml 1480 ml BalanceBalance -5200 ml -1000 ml Exam healing wound and drain in place with output Results Results 24hrs Laboratory Tests Test 02/19/19 00:23 02/19/19 05:59 02/19/19 12:12 Bedside Glucose 109 118 137 Medications Medication Current Medications Hydralazine HCl (Apresoline) 10 mg Q4H PRN IV >150/95 Last administered on 01/24/19at 05:34; Admin Dose 10 MG; Start 01/21/19 at 14:00 Metoprolol Tartrate (Lopressor) 5 mg Q4H PRN IV HR>110 HOld SBP<100 Last administered on 02/18/19at 18:53; Admin Dose 5 MG; Start 01/23/19 at 20:30 Levalbuterol (Xopenex Neb) 0.63 mg Q6H RESP THERAPY HHN Last administered on 02/19/19at 14:18; Admin Dose 0.63 MG; Start 01/24/19 at 23:30 Acetaminophen (Tylenol Tab) 650 mg Q6H PRN PO MILD PAIN(1-3)OR ELEVATED TEMP Last administered on 02/10/19 21:54; Admin Dose 650 MG; Start 01/29/19 at 23:30 Al Hydrox/Mg Hydrox/Simethicone (Mag-Al Plus) 30 ml Q4H PRN PO GASTROINTESTINAL UPSET Last administered on 01/30/19 18:39; Admin Dose 30 ML; Start 01/29/19 at 23:30 Atenolol (Tenormin) 50 mg BID PO Last administered on 02/19/19 09:02; Admin Dose 50 MG; Start 01/30/19 at 21:00 Morphine Sulfate (morphine) 2 mg Q2H PRN IV PAIN LEVEL 6-10; Start 02/11/19 at 16:30 Acetaminophen/ Hydrocodone Bitart ([place] (5/325)) 1 tab Q6H PRN PO PAIN LEVEL 6-10; Start 02/11/19 at 16:30 Fluconazole 100 ml @ 100 mls/hr Q24H IVPB Last administered on 02/19/19 12:13; Admin Dose 100 MLS/HR; Start 02/12/19 at 12:30 Nystatin (Nystatin Susp) 5 ml QID PO Last administered on 02/19/19 12:13; Admin Dose 5 ML; Start 02/12/19 at 13:00 Diagnostic Test (Pha) (Accu-Chek) 1 ea Q6 XX Last administered on 02/19/19 12:13; Admin Dose 1 EA; Start 02/15/19 at 12:00 Furosemide (Lasix) 20 mg DAILY IV Last administered on 02/19/19 09:02; Admin Dose 20 MG; Start 02/17/19 at 09:00 Enoxaparin Sodium (Lovenox) 80 mg BID SC Last administered on 02/19/19 10:05; Admin Dose 80 MG; Start 02/16/19 at 21:00 Diltiazem HCl (Cardizem Cd) 120 mg BID PO Last administered on 02/19/19 09:02; Admin Dose 120 MG; Start 02/18/19 at 21:00 Ann FERNANDEZ February 19, 2019 17:27
--- NOTE | 2019-02-19 19:25 | PN ---
Date/Time of Note Date/Time of Note DATE: 02/19/19 TIME: Assessment/Plan VTE Prophylaxis Risk score (from Nsg)>0 risk: 13 SCD applied (from Nsg): Yes Pharmacological prophylaxis: LMWH Lines/Catheters IV Catheter Type (from Nrsg): Saline Lock Urinary Cath still in place: No Assessment/Plan Hospital Course Patient is awake alert able to tolerate diet, plan of care discussed with the patient his family. Prefers to go home with home health instead of alf facility. PT eval. Assessment/Plan -Atrial fibrillation with rapid ventricular response. Dr. Alejandro is following in cardiology consultation. Continue Lovenox and Cardizem, telemetry monito ring. -Anastomotic leak and intra-abdominal abscess, S/p CT guided drainage of abscess in LLQ on 02/01/2019. Status post laparotomy, washout of the peritoneal cavity, placement of a diverting loop ileostomy in right lower quadrant for protection of the anastomosis in the colorectal area on 02/11/[address] Art. -Sepsis secondary to intra-abdominal infection and pneumonia, resolved, s/p treatment with antibiotics. Dr. Bosch is following in infection disease consultation. -R pleural effusion, s/p R sided thoracentesis on 02/05/2019 -S/p open Reagan reversal and colorectal low pelvic anastomosis, segmental partial colectomy, and open incarcerated incisional and parastomal hernia repairs with mesh by Dr. Art on 01/21/2019. Continue [place] and Dilaudid as needed for pain and Zofran as needed for nausea. -Stage III sigmoid colon cancer, status post surgery and chemo in 2018. -Acute kidney injury on chronic kidney disease, monitor urine output BUN and creatinine. Dr. Stuart is following in nephrology consultation. -Acute on chronic diastolic CHF -Protein calorie malnutrition, improved. Patient required TPN which is currently stopped, patient tolerates a regular diet. -Obstructive sleep apnea -History of hypertension -History of left upper extremity DVT, status post bilateral upper extremity ultrasound on 02/05/2019: No sonographic evidence for bilateral upper extremity deep venous thrombosis. Superficial thrombus in the right cephalic vein in the forearm. Cephalic vein in the upper arm is patent. Superficial thrombus in the left cephalic vein in the antecubital fossa. Cephalic vein in the upper arm is patent. Further recommendations based on clinical course. Plan of care discussed with Dr. oFx. Result Diagram: 02/19/19 1753 02/17/19 0616 Results 24hrs Laboratory Tests Test 02/19/19 00:23 02/19/19 05:59 02/19/19 12:12 02/19/19 17:41 Bedside Glucose 109 118 137 111 Test 02/19/19 17:53 White Blood Count 10.7 Red Blood Count 3.63 L Hemoglobin 10.6 L Hematocrit 32.2 L Mean Corpuscular Volume 88.7 Mean Corpuscular 29.2 Hemoglobin Mean Corpuscular 32.9 Hemoglobin Concent Red Cell Distribution 13.5 Width Platelet Count 494 #H Mean Platelet Volume 10.9 H Immature Granulocytes % 2.700 H Neutrophils % 77.1 H Lymphocytes % 9.8 L Monocytes % 8.4 Eosinophils % 1.5 Basophils % 0.5 Nucleated Red Blood 0.0 Cells % Immature Granulocytes # 0.290 H Neutrophils # 8.2 H Lymphocytes # 1.1 Monocytes # 0.9 Eosinophils # 0.2 Basophils # 0.1 Nucleated Red Blood 0.0 Cells # Exam/Review of Systems Exam Vitals Vital Signs Date Temp Pulse Resp B/P (MAP) Pulse Ox O2 O2 Flow FiO2 Time Delivery Rate 02/19/19 98.0 73 18 121/65 98 16:40 (83) 02/19/19 21 14:18 02/18/19 Nasal 2.0 07:56 Cannula Intake and Output 02/18/19 02/18/19 02/19/19 1515:00 23:00 07:00 IntakeIntake Total 800 ml 480 ml OutputOutput Total 6000 ml 1480 ml BalanceBalance -5200 ml -1000 ml Exam Constitutional: alert, oriented Respiratory: clear to auscultation Cardiovascular: irregular rhythm Gastrointestinal: soft, other (Abdominal surgical incision, accordion drain) Extremities: normal pulses Neurological: nl mental status Results Results 24hrs Laboratory Tests Test 02/19/19 00:23 02/19/19 05:59 02/19/19 12:12 02/19/19 17:41 Bedside Glucose 109 118 137 111 Test 02/19/19 17:53 White Blood Count 10.7 Red Blood Count 3.63 L Hemoglobin 10.6 L Hematocrit 32.2 L Mean Corpuscular Volume 88.7 Mean Corpuscular 29.2 Hemoglobin Mean Corpuscular 32.9 Hemoglobin Concent Red Cell Distribution 13.5 Width Platelet Count 494 #H Mean Platelet Volume 10.9 H Immature Granulocytes % 2.700 H Neutrophils % 77.1 H Lymphocytes % 9.8 L Monocytes % 8.4 Eosinophils % 1.5 Basophils % 0.5 Nucleated Red Blood 0.0 Cells % Immature Granulocytes # 0.290 H Neutrophils # 8.2 H Lymphocytes # 1.1 Monocytes # 0.9 Eosinophils # 0.2 Basophils # 0.1 Nucleated Red Blood 0.0 Cells # Medications Medication Current Medications Hydralazine HCl (Apresoline) 10 mg Q4H PRN IV >150/95 Last administered on 01/24/19at 05:34; Admin Dose 10 MG; Start 01/21/19 at 14:00 Metoprolol Tartrate (Lopressor) 5 mg Q4H PRN IV HR>110 HOld SBP<100 Last administered on 02/18/19at 18:53; Admin Dose 5 MG; Start 01/23/19 at 20:30 Levalbuterol (Xopenex Neb) 0.63 mg Q6H RESP THERAPY HHN Last administered on 02/19/19at 14:18; Admin Dose 0.63 MG; Start 01/24/19 at 23:30 Acetaminophen (Tylenol Tab) 650 mg Q6H PRN PO MILD PAIN(1-3)OR ELEVATED TEMP Last administered on 02/10/19at 21:54; Admin Dose 650 MG; Start 01/29/19 at 23:30 Al Hydrox/Mg Hydrox/Simethicone (Mag-Al Plus) 30 ml Q4H PRN PO GASTROINTESTINAL UPSET Last administered on 01/30/19at 18:39; Admin Dose 30 ML; Start 01/29/19 at 23:30 Atenolol (Tenormin) 50 mg BID PO Last administered on 02/19/19 09:02; Admin Dose 50 MG; Start 01/30/19 at 21:00 Morphine Sulfate (morphine) 2 mg Q2H PRN IV PAIN LEVEL 6-10; Start 02/11/19 at 16:30 Acetaminophen/ Hydrocodone Bitart ([place] (5/325)) 1 tab Q6H PRN PO PAIN LEVEL 6-10; Start 02/11/19 at 16:30 Fluconazole 100 ml @ 100 mls/hr Q24H IVPB Last administered on 02/19/19 12:13; Admin Dose 100 MLS/HR; Start 02/12/19 at 12:30 Nystatin (Nystatin Susp) 5 ml QID PO Last administered on 02/19/19 17:52; Admin Dose 5 ML; Start 02/12/19 at 13:00 Diagnostic Test (Pha) (Accu-Chek) 1 ea Q6 XX Last administered on 02/19/19 17:52; Admin Dose 1 EA; Start 02/15/19 at 12:00 Furosemide (Lasix) 20 mg DAILY IV Last administered on 02/19/19 09:02; Admin Dose 20 MG; Start 02/17/19 at 09:00 Enoxaparin Sodium (Lovenox) 80 mg BID SC Last administered on 02/19/19 10:05; Admin Dose 80 MG; Start 02/16/19 at 21:00 Diltiazem HCl (Cardizem Cd) 120 mg BID PO Last administered on 02/19/19 09:02; Admin Dose 120 MG; Start 02/18/19 at 21:00 ODELL PACHECO February 19, 2019 19:25
[2019-02-20] VITALS (13 sets, daily range): BP systolic 108–130; BP diastolic 66–83; PULSE 71–92; RESP 18–22
[2019-02-20] MEDS: ACCU-CHEK XX SCH ×4 (00:19→18:13)
[2019-02-20] MEDS: LEVALBUTEROL (NEB) 0.63 MG/3 ML AMP HHN SCH ×4 (02:01→19:27)
[2019-02-20] MEDS: ENOXAPARIN 80 MG/0.8 ML SYG SC SCH ×2 (09:00→20:29)
[2019-02-20] MEDS: NYSTATIN SUSP 5 ML CUP PO SCH ×4 (10:09→20:20)
[2019-02-20] MEDS: DILTIAZEM (CD) 120 MG CAP PO SCH ×2 (10:10→20:20)
[2019-02-20] MEDS: FUROSEMIDE 20 MG INJ IV SCH (10:10)
[2019-02-20] MEDS: ATENOLOL 50 MG TAB PO SCH ×2 (10:10→20:20)
--- NOTE | 2019-02-20 11:53 | PN ---
Date/Time of Note Date/Time of Note DATE: 02/20/19 TIME: 11:51 Assessment/Plan VTE Prophylaxis Risk score (from Ns)>0 risk: 13 SCD applied (from Ns): Yes Pharmacological prophylaxis: LMWH Lines/Catheters IV Catheter Type (from Nrsg): [place] Lock Urinary Cath still in place: No Assessment/Plan Hospital Course Patient's creatinine increased to 1.69 2 compared to 0.79 couple of days ago, nephrology reevaluation, IV fluids, BMP tomorrow. Patient was evaluated by physical therapy was able to walk however feels very dizzy, continue PT. Assessment/Plan -Atrial fibrillation with rapid ventricular response. Dr. Alejandro is following in cardiology consultation. Continue Lovenox and Cardizem, telemetry monitoring. -Anastomotic leak and intra-abdominal abscess, S/p CT guided drainage of abscess in LLQ on 02/01/2019. Status post laparotomy, washout of the peritoneal cavity, placement of a diverting loop ileostomy in right lower quadrant for protection of the anastomosis in the colorectal area on 02/11/[address] Art. -Sepsis secondary to intra-abdominal infection and pneumonia, resolved, s/p treatment with antibiotics. Dr. Bosch is following in infection disease consultation. -R pleural effusion, s/p R sided thoracentesis on 02/05/2019 -S/p open Reagan reversal and colorectal low pelvic anastomosis, segmental partial colectomy, and open incarcerated incisional and parastomal hernia repairs with mesh by Dr. Art on 01/21/2019. Continue [place] and Dilaudid as needed for pain and Zofran as needed for nausea. -Stage III sigmoid colon cancer, status post surgery and chemo in 2018. -Acute kidney injury on chronic kidney disease, monitor urine output BUN and creatinine. Dr. Stuart is following in nephrology consultation. -Acute on chronic diastolic CHF -Protein calorie malnutrition, improved. Patient required TPN which is currently stopped, patient tolerates a regular diet. -Obstructive sleep apnea -History of hypertension -History of left upper extremity DVT, status post bilateral upper extremity ultrasound on 02/05/2019: No sonographic evidence for bilateral upper extremity deep venous thrombosis. Superficial thrombus in the right cephalic vein in the forearm. Cephalic vein in the upper arm is patent. Superficial thrombus in the left cephalic vein in the antecubital fossa. Cephalic vein in the upper arm is patent. Further recommendations based on clinical course. Plan of care discussed with Dr. Fox. Result Diagram: 02/20/19 0640 02/20/19 0640 Results 24hrs Laboratory Tests Test 02/19/19 12:12 02/19/19 17:41 02/19/19 17:53 02/20/19 00:15 Bedside Glucose 137 111 130 White Blood Count 10.7 Red Blood Count 3.63 L Hemoglobin 10.6 L Hematocrit 32.2 L Mean Corpuscular Volume 88.7 Mean Corpuscular 29.2 Hemoglobin Mean Corpuscular 32.9 Hemoglobin Concent Red Cell Distribution 13.5 Width Platelet Count 494 #H Mean Platelet Volume 10.9 H Immature Granulocytes % 2.700 H Neutrophils % 77.1 H Lymphocytes % 9.8 L Monocytes % 8.4 Eosinophils % 1.5 Basophils % 0.5 Nucleated Red Blood 0.0 Cells % Immature Granulocytes # 0.290 H Neutrophils # 8.2 H Lymphocytes # 1.1 Monocytes # 0.9 Eosinophils # 0.2 Basophils # 0.1 Nucleated Red Blood 0.0 Cells # Test 02/20/19 05:47 02/20/19 06:40 Bedside Glucose 118 White Blood Count 9.1 Red Blood Count 3.54 L Hemoglobin 10.0 L Hematocrit 31.5 L Mean Corpuscular Volume 89.0 Mean Corpuscular 28.2 L Hemoglobin Mean Corpuscular 31.7 L Hemoglobin Concent Red Cell Distribution 13.7 Width Platelet Count 458 H Mean Platelet Volume 11.0 H Immature Granulocytes % 4.300 H Neutrophils % 74.9 Lymphocytes % 9.4 L Monocytes % 9.1 Eosinophils % 1.7 Basophils % 0.6 Nucleated Red Blood 0.0 Cells % Immature Granulocytes # 0.390 H Neutrophils # 6.8 Lymphocytes # 0.9 Monocytes # 0.8 Eosinophils # 0.2 Basophils # 0.1 Nucleated Red Blood 0.0 Cells # Sodium Level 134 L Potassium Level 3.8 Chloride Level 92 L Carbon Dioxide Level 33 H Anion Gap 9 Blood Urea Nitrogen 35 H Creatinine 1.69 H Est Glomerular Filtrat 42 L Rate mL/min Glucose Level 133 Calcium Level 8.9 Magnesium Level 2.3 Exam/Review of Systems Exam Vitals Vital Signs Date Temp Pulse Resp B/P (MAP) Pulse Ox O2 O2 Flow FiO2 Time Delivery Rate 02/20/19 86 18 94 21 08:28 02/20/19 98.0 130/77 08:00 (94) 02/20/19 Room Air 04:32 02/18/19 2.0 07:56 Intake and Output 02/19/19 02/19/19 02/20/19 1515:00 23:00 07:00 IntakeIntake Total 960 ml OutputOutput Total 30 ml 20 ml 2165 ml BalanceBalance -30 ml -20 ml -1205 ml Exam Constitutional: alert, oriented Respiratory: clear to auscultation Cardiovascular: irregular rhythm Gastrointestinal: soft, other (Abdominal surgical incision, accordion drain) Extremities: normal pulses Neurological: nl mental status Results Results 24hrs Laboratory Tests Test 02/19/19 12:12 02/19/19 17:41 02/19/19 17:53 02/20/19 00:15 Bedside Glucose 137 111 130 White Blood Count 10.7 Red Blood Count 3.63 L Hemoglobin 10.6 L Hematocrit 32.2 L Mean Corpuscular Volume 88.7 Mean Corpuscular 29.2 Hemoglobin Mean Corpuscular 32.9 Hemoglobin Concent Red Cell Distribution 13.5 Width Platelet Count 494 #H Mean Platelet Volume 10.9 H Immature Granulocytes % 2.700 H Neutrophils % 77.1 H Lymphocytes % 9.8 L Monocytes % 8.4 Eosinophils % 1.5 Basophils % 0.5 Nucleated Red Blood 0.0 Cells % Immature Granulocytes # 0.290 H Neutrophils # 8.2 H Lymphocytes # 1.1 Monocytes # 0.9 Eosinophils # 0.2 Basophils # 0.1 Nucleated Red Blood 0.0 Cells # Test 02/20/19 05:47 02/20/19 06:40 Bedside Glucose 118 White Blood Count 9.1 Red Blood Count 3.54 L Hemoglobin 10.0 L Hematocrit 31.5 L Mean Corpuscular Volume 89.0 Mean Corpuscular 28.2 L Hemoglobin Mean Corpuscular 31.7 L Hemoglobin Concent Red Cell Distribution 13.7 Width Platelet Count 458 H Mean Platelet Volume 11.0 H Immature Granulocytes % 4.300 H Neutrophils % 74.9 Lymphocytes % 9.4 L Monocytes % 9.1 Eosinophils % 1.7 Basophils % 0.6 Nucleated Red Blood 0.0 Cells % Immature Granulocytes # 0.390 H Neutrophils # 6.8 Lymphocytes # 0.9 Monocytes # 0.8 Eosinophils # 0.2 Basophils # 0.1 Nucleated Red Blood 0.0 Cells # Sodium Level 134 L Potassium Level 3.8 Chloride Level 92 L Carbon Dioxide Level 33 H Anion Gap 9 Blood Urea Nitrogen 35 H Creatinine 1.69 H Est Glomerular Filtrat 42 L Rate mL/min Glucose Level 133 Calcium Level 8.9 Magnesium Level 2.3 Medications Medication Current Medications Hydralazine HCl (Apresoline) 10 mg Q4H PRN IV >150/95 Last administered on 01/24/19 05:34; Admin Dose 10 MG; Start 01/21/19 at 14:00 Metoprolol Tartrate (Lopressor) 5 mg Q4H PRN IV HR>110 HOld SBP<100 Last administered on 02/18/19 18:53; Admin Dose 5 MG; Start 01/23/19 at 20:30 Levalbuterol (Xopenex Neb) 0.63 mg Q6H RESP THERAPY HHN Last administered on 02/20/19 08:18; Admin Dose 0.63 MG; Start 01/24/19 at 23:30 Acetaminophen (Tylenol Tab) 650 mg Q6H PRN PO MILD PAIN(1-3)OR ELEVATED TEMP Last administered on 02/10/19 21:54; Admin Dose 650 MG; Start 01/29/19 at 23:30 Al Hydrox/Mg Hydrox/Simethicone (Mag-Al Plus) 30 ml Q4H PRN PO GASTROINTESTINAL UPSET Last administered on 01/30/19 18:39; Admin Dose 30 ML; Start 01/29/19 at 23:30 Atenolol (Tenormin) 50 mg BID PO Last administered on 02/20/19 10:10; Admin Dose 50 MG; Start 01/30/19 at 21:00 Morphine Sulfate (morphine) 2 mg Q2H PRN IV PAIN LEVEL 6-10; Start 02/11/19 at 16:30 Acetaminophen/ Hydrocodone Bitart ([place] (5/325)) 1 tab Q6H PRN PO PAIN LEVEL 6-10; Start 02/11/19 at 16:30 Fluconazole 100 ml @ 100 mls/hr Q24H IVPB Last administered on 02/19/19 12:13; Admin Dose 100 MLS/HR; Start 02/12/19 at 12:30 Nystatin (Nystatin Susp) 5 ml QID PO Last administered on 02/20/19 10:09; Admin Dose 5 ML; Start 02/12/19 at 13:00 Diagnostic Test (Pha) (Accu-Chek) 1 ea Q6 XX Last administered on 02/20/19 06:17; Admin Dose 1 EA; Start 02/15/19 at 12:00 Furosemide (Lasix) 20 mg DAILY IV Last administered on 02/20/19 10:10; Admin Dose 20 MG; Start 02/17/19 at 09:00 Enoxaparin Sodium (Lovenox) 80 mg BID SC Last administered on 02/19/19at 21:51; Admin Dose 80 MG; Start 02/16/19 at 21:00 Diltiazem HCl (Cardizem Cd) 120 mg BID PO Last administered on 02/20/19 10:10; Admin Dose 120 MG; Start 02/18/19 at 21:00 ODELL PACHECO February 20, 2019 11:53
[2019-02-20] MEDS: FLUCONAZOLE 200 MG (PMX) 100 ML IVPB SCH (13:05)
--- NOTE | 2019-02-20 13:25 | CONS ---
Assessment/Plan Assessment/Plan Hospital Course (Demo Recall) # sepsis, respiratory - sepsis due to complicated intra-abdominal infection and pneumonia, resolved - recurrent pleural effusion, follow up chest US on 02/17/2019 showed small R sided effusion - congested cough probably due to pleural effusion and fluid overload, influenza AB negative on 02/17/2019. Improving and stable on room air - R pleural effusion, exudative process, parapneumonic effusion LDH 1601 protein 3.2, no e/o malignancy on cytology - s/p R sided thoracentesis on 02/05/2019 - VIJAY # GI, onc - s/p ex lap, washout of abdominal abscess, CLEVE, diverting loop ileostomy on 02/11/2019 - s/p open Reagan reversal and colorectal low pelvic anastomosis, segmental partial colectomy, and open incarcerated incisional and parastomal hernia repairs with mesh by Dr. Art on 01/21/2019 - thrush, resolving - follow up CT on 02/04/2019 did not identify definite point of leak--> anastomotic leak was identified on gastograffin - s/p CT guided drainage of abscess in LLQ on 02/01/2019 - abdominal wound culture 01/30/19 and abscess culture 01/31/19 grew pseudomonas, joseline albicans and glabrata - s/p colostomy reversal - stage III sigmoid colon cancer, status post prior colectomy/colostomy and chem o in 2017 # renal, cardiovascular - acute kidney injury on chronic kidney disease, resolved - acute on chronic diastolic CHF, improved - atrial fibrillation with RVR, converted to SR - Hx hypertension - Hx left upper extremity DVT - superficial thrombus in R cephalic vein in the forearm and in L cephalic vein in the antecubital fossa as visualized on NOY 02/05/2019 # other conditions - R conjunctivitis, resolved after neomycin eye drop x 7 days recommendations: - Consider Ceftriaxone 1 gm IV daily until repeat imaging shows resolution of intra-abdominal fluid collection. Pt previously took meropenem (01/30/2019- 02/03/2019), metronidazole (02/04/2019-02/16/2019) and cefepime (02/04/2019-02/18/2019) - Continue fluconazole (01/30/2019-) and nystatin (02/12/2019-) until thrush r esolves Consultation Date/Type/Reason Admit Date/Time Jan 21, 2019 at 06:18 Initial Consult Date 01/30/19 Type of Consult ID Requesting Provider: ODELL PACHECO Date/Time of Note DATE: 02/20/19 TIME: 13:23 Exam/Review of Systems Exam Vitals Vital Signs Date Temp Pulse Resp B/P (MAP) Pulse Ox O2 O2 Flow FiO2 Time Delivery Rate 02/20/19 90 12:51 02/20/19 98.0 22 124/83 96 Room Air 12:03 (97) 02/20/19 21 08:28 02/18/19 2.0 07:56 Intake and Output 02/19/19 02/19/19 02/20/19 1515:00 23:00 07:00 IntakeIntake Total 960 ml OutputOutput Total 30 ml 20 ml 2165 ml BalanceBalance -30 ml -20 ml -1205 ml Constitutional: alert, oriented, well developed Psych: no complaints, nl mood/affect Head: normocephalic, atraumatic Eyes: nl conjunctiva, EOMI, nl lids, nl sclera, PERRL ENMT: nl external ears & nose, nl lips & teeth, nl nasal mucosa & septum Neck: supple, non-tender Respiratory: clear to auscultation, normal air movement Cardiovascular: regular rate and rhythm Gastrointestinal: soft, distended 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, nl mental status, nl speech, nl strength Results Result Diagram: 02/20/19 0640 02/20/19 0640 Results 24hrs Laboratory Tests Test 02/19/19 17:41 02/19/19 17:53 02/20/19 00:15 02/20/19 05:47 Bedside Glucose 111 130 118 White Blood Count 10.7 Red Blood Count 3.63 L Hemoglobin 10.6 L Hematocrit 32.2 L Mean Corpuscular Volume 88.7 Mean Corpuscular 29.2 Hemoglobin Mean Corpuscular 32.9 Hemoglobin Concent Red Cell Distribution 13.5 Width Platelet Count 494 #H Mean Platelet Volume 10.9 H Immature Granulocytes % 2.700 H Neutrophils % 77.1 H Lymphocytes % 9.8 L Monocytes % 8.4 Eosinophils % 1.5 Basophils % 0.5 Nucleated Red Blood 0.0 Cells % Immature Granulocytes # 0.290 H Neutrophils # 8.2 H Lymphocytes # 1.1 Monocytes # 0.9 Eosinophils # 0.2 Basophils # 0.1 Nucleated Red Blood 0.0 Cells # Test 02/20/19 06:40 02/20/19 12:40 White Blood Count 9.1 Red Blood Count 3.54 L Hemoglobin 10.0 L Hematocrit 31.5 L Mean Corpuscular Volume 89.0 Mean Corpuscular 28.2 L Hemoglobin Mean Corpuscular 31.7 L Hemoglobin Concent Red Cell Distribution 13.7 Width Platelet Count 458 H Mean Platelet Volume 11.0 H Immature Granulocytes % 4.300 H Neutrophils % 74.9 Lymphocytes % 9.4 L Monocytes % 9.1 Eosinophils % 1.7 Basophils % 0.6 Nucleated Red Blood 0.0 Cells % Immature Granulocytes # 0.390 H Neutrophils # 6.8 Lymphocytes # 0.9 Monocytes # 0.8 Eosinophils # 0.2 Basophils # 0.1 Nucleated Red Blood 0.0 Cells # Sodium Level 134 L Potassium Level 3.8 Chloride Level 92 L Carbon Dioxide Level 33 H Anion Gap 9 Blood Urea Nitrogen 35 H Creatinine 1.69 H Est Glomerular Filtrat 42 L Rate mL/min Glucose Level 133 Calcium Level 8.9 Magnesium Level 2.3 Bedside Glucose 145 Medications Medication Current Medications Hydralazine HCl (Apresoline) 10 mg Q4H PRN IV >150/95 Last administered on 01/24/19 05:34; Admin Dose 10 MG; Start 01/21/19 at 14:00 Metoprolol Tartrate (Lopressor) 5 mg Q4H PRN IV HR>110 HOld SBP<100 Last administered on 02/18/19 18:53; Admin Dose 5 MG; Start 01/23/19 at 20:30 Levalbuterol (Xopenex Neb) 0.63 mg Q6H RESP THERAPY HHN Last administered on 02/20/19 08:18; Admin Dose 0.63 MG; Start 01/24/19 at 23:30 Acetaminophen (Tylenol Tab) 650 mg Q6H PRN PO MILD PAIN(1-3)OR ELEVATED TEMP Last administered on 02/10/19at 21:54; Admin Dose 650 MG; Start 01/29/19 at 23:30 Al Hydrox/Mg Hydrox/Simethicone (Mag-Al Plus) 30 ml Q4H PRN PO GASTROINTESTINAL UPSET Last administered on 01/30/19 18:39; Admin Dose 30 ML; Start 01/29/19 at 23:30 Atenolol (Tenormin) 50 mg BID PO Last administered on 02/20/19 10:10; Admin Dose 50 MG; Start 01/30/19 at 21:00 Morphine Sulfate (morphine) 2 mg Q2H PRN IV PAIN LEVEL 6-10; Start 02/11/19 at 16:30 Acetaminophen/ Hydrocodone Bitart ([place] (5/325)) 1 tab Q6H PRN PO PAIN LEVEL 6-10; Start 02/11/19 at 16:30 Fluconazole 100 ml @ 100 mls/hr Q24H IVPB Last administered on 02/20/19 13:05; Admin Dose 100 MLS/HR; Start 02/12/19 at 12:30 Nystatin (Nystatin Susp) 5 ml QID PO Last administered on 02/20/19 13:05; Admin Dose 5 ML; Start 02/12/19 at 13:00 Diagnostic Test (Pha) (Accu-Chek) 1 ea Q6 XX Last administered on 02/20/19 12:00; Admin Dose 1 EA; Start 02/15/19 at 12:00 Furosemide (Lasix) 20 mg DAILY IV Last administered on 02/20/19 10:10; Admin Dose 20 MG; Start 02/17/19 at 09:00 Enoxaparin Sodium (Lovenox) 80 mg BID SC Last administered on 02/20/19 09:00; Admin Dose 80 MG; Start 02/16/19 at 21:00 Diltiazem HCl (Cardizem Cd) 120 mg BID PO Last administered on 02/20/19 10:10; Admin Dose 120 MG; Start 02/18/19 at 21:00 KURT SEO MD February 20, 2019 13:25
--- NOTE | 2019-02-20 14:51 | CONS ---
Assessment/Plan Assessment/Plan Hospital Course (Demo Recall) IMPRESSION: 1. Tachycardia c/w AF now converted to SR NL EF by echo 60-65 2. Possible congestive heart failure by chest x-ray with the patient having the onset of acute renal failure at this time. 3. Hypertension 4. Postoperative status post reversal colostomy. 5. Fevers postop. 6. Renal failure, acute.-improved now 7. History of colon carcinoma status post prior colectomy with colostomy with anastomatic leak by abd CT and now post-op s/p repeat surgery with removal abscess and placement of drains 8. Hypernatremia, improved 9. Hypomagnesemia-improved 10. Leukocytosis. Recc: -Tele -Continue PO BB/CCB as tolerated -Pain control -Continue abx's and f/u cx data -Follow volume status closely and will hold lasix given onset ARF -Continue lovenox -routine post-op care -now off TPN Consultation Date/Type/Reason Admit Date/Time Jan 21, 2019 at 06:18 Initial Consult Date 01/23/19 Type of Consult Cardiology Reason for Consultation tachycardia Requesting Provider: ODELL PACHECO Date/Time of Note DATE: 02/20/19 TIME: 14:49 Exam/Review of Systems Vital Signs Vitals Vital Signs Date Temp Pulse Resp B/P (MAP) Pulse Ox O2 O2 Flow FiO2 Time Delivery Rate 02/20/19 85 18 96 21 14:03 02/20/19 98.0 124/83 Room Air 12:03 (97) 02/18/19 2.0 07:56 Intake and Output 02/19/19 02/19/19 02/20/19 1515:00 23:00 07:00 IntakeIntake Total 960 ml OutputOutput Total 30 ml 20 ml 2165 ml BalanceBalance -30 ml -20 ml -1205 ml Exam Exam Review of Systems: CONSTITUTIONAL: No fevers, chills. PULMONARY: No sob CARDIOVASCULAR: No chest pain/palpitations GASTROINTESTINAL: No nausea/vomiting. GENITOURINARY: No hematuria/dysuria. MUSCULOSKELETAL: No myagias/arthalgias. PSYCHIATRIC: The patient denies depression. NEUROLOGIC: No weakness Constitutional: alert Psych: no complaints Head: normocephalic ENMT: mucosa pink and moist Neck: supple, jvd (9 cm water) Respiratory: diminished breath sounds (at bases/B) Cardiovascular: regular rate and rhythm Gastrointestinal: soft, tender (to palpation mild) Musculoskeletal: muscle tone (normal) Extremities: edema (none) Neurological: other (No focal deficits) Labs Result Diagram: 02/20/19 0640 02/20/19 0640 Results 24hrs Laboratory Tests Test 02/19/19 17:41 02/19/19 17:53 02/20/19 00:15 02/20/19 05:47 Bedside Glucose 111 130 118 White Blood Count 10.7 Red Blood Count 3.63 L Hemoglobin 10.6 L Hematocrit 32.2 L Mean Corpuscular Volume 88.7 Mean Corpuscular 29.2 Hemoglobin Mean Corpuscular 32.9 Hemoglobin Concent Red Cell Distribution 13.5 Width Platelet Count 494 #H Mean Platelet Volume 10.9 H Immature Granulocytes % 2.700 H Neutrophils % 77.1 H Lymphocytes % 9.8 L Monocytes % 8.4 Eosinophils % 1.5 Basophils % 0.5 Nucleated Red Blood 0.0 Cells % Immature Granulocytes # 0.290 H Neutrophils # 8.2 H Lymphocytes # 1.1 Monocytes # 0.9 Eosinophils # 0.2 Basophils # 0.1 Nucleated Red Blood 0.0 Cells # Test 02/20/19 06:40 02/20/19 12:40 White Blood Count 9.1 Red Blood Count 3.54 L Hemoglobin 10.0 L Hematocrit 31.5 L Mean Corpuscular Volume 89.0 Mean Corpuscular 28.2 L Hemoglobin Mean Corpuscular 31.7 L Hemoglobin Concent Red Cell Distribution 13.7 Width Platelet Count 458 H Mean Platelet Volume 11.0 H Immature Granulocytes % 4.300 H Neutrophils % 74.9 Lymphocytes % 9.4 L Monocytes % 9.1 Eosinophils % 1.7 Basophils % 0.6 Nucleated Red Blood 0.0 Cells % Immature Granulocytes # 0.390 H Neutrophils # 6.8 Lymphocytes # 0.9 Monocytes # 0.8 Eosinophils # 0.2 Basophils # 0.1 Nucleated Red Blood 0.0 Cells # Sodium Level 134 L Potassium Level 3.8 Chloride Level 92 L Carbon Dioxide Level 33 H Anion Gap 9 Blood Urea Nitrogen 35 H Creatinine 1.69 H Est Glomerular Filtrat 42 L Rate mL/min Glucose Level 133 Calcium Level 8.9 Magnesium Level 2.3 Bedside Glucose 145 Medications Medications Current Medications Hydralazine HCl (Apresoline) 10 mg Q4H PRN IV >150/95 Last administered on 05:34; Admin Dose 10 MG; Start 01/21/19 at 14:00 Metoprolol Tartrate (Lopressor) 5 mg Q4H PRN IV HR>110 HOld SBP<100 Last administered on 02/18/19 18:53; Admin Dose 5 MG; Start 01/23/19 at 20:30 Levalbuterol (Xopenex Neb) 0.63 mg Q6H RESP THERAPY HHN Last administered on 02/20/19 13:53; Admin Dose 0.63 MG; Start 01/24/19 at 23:30 Acetaminophen (Tylenol Tab) 650 mg Q6H PRN PO MILD PAIN(1-3)OR ELEVATED TEMP Last administered on 02/10/19 21:54; Admin Dose 650 MG; Start 01/29/19 at 23:30 Al Hydrox/Mg Hydrox/Simethicone (Mag-Al Plus) 30 ml Q4H PRN PO GASTROINTESTINAL UPSET Last administered on 01/30/19 18:39; Admin Dose 30 ML; Start 01/29/19 at 23:30 Atenolol (Tenormin) 50 mg BID PO Last administered on 02/20/19 10:10; Admin Dose 50 MG; Start 01/30/19 at 21:00 Morphine Sulfate (morphine) 2 mg Q2H PRN IV PAIN LEVEL 6-10; Start 02/11/19 at 16:30 Acetaminophen/ Hydrocodone Bitart ([place] (5/325)) 1 tab Q6H PRN PO PAIN LEVEL 6-10; Start 02/11/19 at 16:30 Fluconazole 100 ml @ 100 mls/hr Q24H IVPB Last administered on 02/20/19 13:05; Admin Dose 100 MLS/HR; Start 02/12/19 at 12:30 Nystatin (Nystatin Susp) 5 ml QID PO Last administered on 02/20/19 13:05; Admin Dose 5 ML; Start 02/12/19 at 13:00 Diagnostic Test (Pha) (Accu-Chek) 1 ea Q6 XX Last administered on 02/20/19 12: 00; Admin Dose 1 EA; Start 02/15/19 at 12:00 Furosemide (Lasix) 20 mg DAILY IV Last administered on 02/20/19at 10:10; Admin Dose 20 MG; Start 02/17/19 at 09:00 Enoxaparin Sodium (Lovenox) 80 mg BID SC Last administered on 02/20/19at 09:00; Admin Dose 80 MG; Start 02/16/19 at 21:00 Diltiazem HCl (Cardizem Cd) 120 mg BID PO Last administered on 02/20/19at 10:10; Admin Dose 120 MG; Start 02/18/19 at 21:00 EUGENE ANDERSON February 20, 2019 14:51
--- NOTE | 2019-02-20 15:37 | PN ---
DATE: 02/20/2019 SUBJECTIVE: Feels much better. Minimal pain. Is tolerating diet. Ileostomy is functioning. The p atient states that has had regular normal bowel movement but the nurse said there was only a small am ount of stool from the rectum. No nausea, no vomiting. OBJECTIVE: GENERAL: Alert and awake. VITAL SIGNS: Temperature maximum today 98, heart rate 92, respirations 22, blood pressure 124/83, sa turation 96% on room air. LABORATORY DATA: WBC 9100 with 74% segmented, which is normal. Hemoglobin 10, hematocrit 31.5. Jyothi telet count is 458. Chemistry today, sodium is normal, potassium is 3.8, chloride 92, carbon dioxide 33, BUN has increased to 35. Creatinine has increased to 1.69. On 02/17/2019 BUN was 20 and creati nine was 0.76. So I am not sure what the cause of increased creatinine and BUN. Probably is prerena l. The patient was encouraged to drink a lot of fluid. Nephrology is following the patient. Infect ious disease is following the patient. PHYSICAL EXAMINATION: HEART: Regular. LUNGS: Clear. Decreased breathing sound right side. ABDOMEN: Mildly distended and protruded with fat. Ayan drains have been removed already. Dressing was checked. Midline incision is clean. There is no cellulitis. Pigtail drain is in place and draining a little bit amount of purulent liquid. Ileos ness is functioning. The content of the ileostomy shows undigested carrots, I feel that the patient is not chewing his food properly. Infectious disease has recommended to continue ceftriaxone. Also, continue fluconazole. PLAN: Apparently the plan was to discharge the patient in the care of home health but considering th at the BUN and creatinine are increased today, so they are going to keep the patient until the proble m is cleared. From surgical point of view, the patient can be discharged at this time if he is clear ed by internal medicine and other colleagues. Dictated By: LIAT LOOMIS MD PS/NTS Conf#: [id number] DID#: [id number] CC: JACOB FERNANDEZ MD;*EndCC*
[2019-02-20] MEDS: ALBUMIN HUMAN 25% 100 ML IV SCH (18:51)
--- NOTE | 2019-02-20 20:21 | PN ---
DATE: 02/20/2019 SUBJECTIVE: The patient since my previous evaluation underwent repeat surgical exploration due to an astomotic leak and abscess. The patient had an ileostomy placement and washout of peritoneal cavity. The patient was placed on broad spectrum antibiotics, antifungal therapy. The patient has slowly b een clinically improving. The patient's renal function in the last 48 hours showed increase in creat inine from 0.76 to 1.69 mg/dL. During this time, the patient has been on diuretic therapy. There mora ve been no reports of any hemoptysis, hematemesis or hematochezia. OBJECTIVE: VITAL SIGNS: Blood pressure is 118/66, respiration 22, pulse 77, temperature 98.0. HEENT: Head is normocephalic. NECK: Supple. HEART: Regular rate. LUNGS: Show diminished breath sounds at base. ABDOMEN: Soft, positive ileostomy. EXTREMITIES: Negative for clubbing, cyanosis. No edema. DERMATOLOGIC: No rashes. MUSCULOSKELETAL: No joint effusion. NEUROLOGIC: No change in exam. MEDICATIONS: Have been reviewed. LABORATORY DATA: Have been reviewed. ASSESSMENT AND PLAN: 1. Nonoliguric acute kidney injury with previous baseline creatinine of 0.76 of mg/dL. Etiology of acute kidney injury is likely secondary to volume depletion secondary to diuretic therapy. The possi bility of tubular injury due to nephrotoxicity is a consideration. Other possibilities such as inter stitial nephritis are consideration. Lower suspicion for acute glomerulonephritis or vasculitis. Pl an at this point is to check UA with microanalysis, check urine electrolytes. We will discontinue IV diuretics. We will give the patient gentle fluid challenge with IV albumin and monitor renal functi on closely. Continue supportive care, renally dose all meds, avoid nephrotoxins. 2. Hypernatremia likely secondary to acute kidney injury causing decreased free water urinary excret ion. We will continue to monitor. 3. Alkalosis possibly compensatory versus acute kidney injury. Continue to monitor. 4. Anemia. Monitor hemoglobin and hematocrit levels. 5. Mineral bone disorder. Monitor calcium and phosphorus levels. 6. Anastomotic leak status post laparotomy with washout of peritoneal cavity and placement of divert ing ileostomy. Continue to monitor. 7. Sepsis secondary to intraabdominal infection and pneumonia. Continue antibiotic therapy. 8. Right pleural effusion, status post thoracentesis. 9. History of colon cancer, status post surgery and chemotherapy. 10. Acute on chronic congestive heart failure. The patient appears compensated. Continue to monito r. Hold diuretic therapy. 11. History of obstructive sleep apnea. 12. History of hypertension. 13. Lower extremity deep venous thrombosis. Continue medical management. 14. Atrial fibrillation. Continue current treatment plan. Follow up with cardiology. Dictated By: SUSAN ZURITA DO NR/NTS Conf#: [id number] DID#: [id number] CC: JACOB FERNANDEZ MD; ANDREY ZHENG MD;*EndCC*
[2019-02-21] VITALS (12 sets, daily range): BP systolic 108–130; BP diastolic 66–75; PULSE 70–79; RESP 16–19
[2019-02-21] MEDS: ACCU-CHEK XX SCH ×4 (00:54→17:56)
[2019-02-21] MEDS: ALBUMIN HUMAN 25% 100 ML IV SCH ×2 (02:14→11:12)
[2019-02-21] MEDS: LEVALBUTEROL (NEB) 0.63 MG/3 ML AMP HHN SCH ×4 (02:20→21:10)
[2019-02-21] MEDS: NYSTATIN SUSP 5 ML CUP PO SCH ×4 (09:00→20:44)
[2019-02-21] MEDS: DILTIAZEM (CD) 120 MG CAP PO SCH ×2 (09:01→20:43)
[2019-02-21] MEDS: ATENOLOL 50 MG TAB PO SCH ×2 (09:01→20:44)
[2019-02-21] MEDS: ENOXAPARIN 80 MG/0.8 ML SYG SC SCH ×2 (09:10→21:31)
[2019-02-21] MEDS: SOD CHLORIDE 0.9% 1,000 ML IV SCH (09:12)
--- NOTE | 2019-02-21 11:02 | PN ---
DATE: 02/21/2019 SUBJECTIVE: The patient is stable, no events overnight. No fever, chills, nausea or vomiting. The patient continues to have copious output. No other events noted. OBJECTIVE: VITAL SIGNS: Blood pressure is 112/66, respirations 16, pulse 71, temperature 98.6. HEENT: Head is normocephalic. HEART: Regular rate. LUNGS: Show diminished breath sounds at the base. ABDOMEN: Soft, nontender to palpation without rebound or guarding. EXTREMITIES: Negative for clubbing, cyanosis, no edema. DERMATOLOGIC: No rashes. MUSCULOSKELETAL: No joint effusion. NEUROLOGIC: No change in exam. MEDICATIONS: Reviewed. LABORATORY DATA: Reviewed. Urinalysis shows FENa less than 1%. ASSESSMENT AND PLAN: 1. Nonoliguric acute kidney injury with previous baseline creatinine of 0.7 mg/dL. Etiology of acute kidney injury is likely secondary to volume depletion. The patient's urinalysis was reviewed. Find ings are consistent with volume depletion. The patient also has excessive GI losses. Plan at this p oint is to intensify IV fluids, start the patient on normal saline 75 mL per hour, monitor I's and O' s and volume status closely. 2. Hyponatremia, etiology is secondary to acute kidney injury. Continue to monitor. Continue to tr eat underlying acute kidney injury as stated above. 3. Alkalosis, etiology is acute kidney injury. Continue IV fluids. 4. Anemia. Monitor hemoglobin and hematocrit levels. 5. Mineral bone disorder. Monitor calcium and phosphorus levels. 6. Anastomotic leak status post laparotomy with peritoneal washout and diverting ileostomy. Continu e to monitor. 7. Sepsis secondary to intra-abdominal infection, pneumonia. Continue current antibiotic therapy. 8. Right pleural effusion status post thoracentesis. 9. History of colon cancer, status post surgery and chemotherapy. 10. History of heart failure. The patient currently appears hypokalemia. Continue IV fluids. Ceci tor volume status. 11. History of obstructive sleep apnea. 12. History of hypertension. 13. Lower extremity deep vein thrombosis. Continue medical management. 14. Atrial fibrillation. Continue current treatment plan. Dictated By: SUSAN HERNANDEZ/MARIAN Conf#: [id number] DID#: [id number] CC: JACOB FERNANDEZ MD; ANDREY ZHENG MD;*EndCC*
[2019-02-21] MEDS: LOPERAMIDE 2 MG CAP PO SCH ×3 (12:50→20:43)
[2019-02-21] MEDS: FLUCONAZOLE 200 MG (PMX) 100 ML IVPB SCH (12:50)
--- NOTE | 2019-02-21 13:19 | CONS ---
Assessment/Plan Assessment/Plan Hospital Course (Demo Recall) # sepsis, respiratory - sepsis due to complicated intra-abdominal infection and pneumonia, resolved - recurrent pleural effusion, follow up chest US on 02/17/2019 showed small R sided effusion - congested cough probably due to pleural effusion and fluid overload, influenza AB negative on 02/17/2019. Improving and stable on room air - R pleural effusion, exudative process, parapneumonic effusion LDH 1601 protein 3.2, no e/o malignancy on cytology - s/p R sided thoracentesis on 02/05/2019 - VIJAY # GI, onc - s/p ex lap, washout of abdominal abscess, CLEVE, diverting loop ileostomy on 02/11/2019 - s/p open Reagan reversal and colorectal low pelvic anastomosis, segmental partial colectomy, and open incarcerated incisional and parastomal hernia repairs with mesh by Dr. Art on 01/21/2019 - thrush, resolving - follow up CT on 02/04/2019 did not identify definite point of leak--> anastomotic leak was identified on gastograffin - s/p CT guided drainage of abscess in LLQ on 02/01/2019 - abdominal wound culture 01/30/19 and abscess culture 01/31/19 grew pseudomonas, joseline albicans and glabrata - s/p colostomy reversal - stage III sigmoid colon cancer, status post prior colectomy/colostomy and chem o in 2017 # renal, cardiovascular - acute kidney injury on chronic kidney disease, resolved - acute on chronic diastolic CHF, improved - atrial fibrillation with RVR, converted to SR - Hx hypertension - Hx left upper extremity DVT - superficial thrombus in R cephalic vein in the forearm and in L cephalic vein in the antecubital fossa as visualized on NOY 02/05/2019 # other conditions - R conjunctivitis, resolved after neomycin eye drop x 7 days recommendations: - Consider Ceftriaxone 1 gm IV daily until repeat imaging shows resolution of intra-abdominal fluid collection. Pt previously took meropenem (01/30/2019- 02/03/2019), metronidazole (02/04/2019-02/16/2019) and cefepime (02/04/2019-02/18/2019) - Continue fluconazole (01/30/2019-) and nystatin (02/12/2019-) until thrush r esolves Above plan discussed and coordinated with via [facility]. Consultation Date/Type/Reason Admit Date/Time Jan 21, 2019 at 06:18 Initial Consult Date 01/30/19 Requesting Provider: ODELL PACHECO Date/Time of Note DATE: 02/21/19 TIME: 13:19 24 HR Interval Summary Free Text/Dictation WBC 9.1 Afebrile and asymptomatic. Per d/w nurse, pt will be started on IVF for increased Cr. Constitutional: no complaints Detailed Summary Additional Comments Pt denied ROS, denies any complaints. Exam/Review of Systems Exam Vitals Vital Signs Date Temp Pulse Resp B/P (MAP) Pulse Ox O2 O2 Flow FiO2 Time Delivery Rate 02/21/19 77 12:38 02/21/19 98.5 18 116/74 98 Room Air 11:31 (88) 02/21/19 21 08:17 02/18/19 2.0 07:56 Intake and Output 02/20/19 02/20/19 02/21/19 1515:00 23:00 07:00 IntakeIntake Total 800 ml OutputOutput Total 60 ml 1700 ml BalanceBalance -60 ml -900 ml Constitutional: alert, oriented, well developed Psych: no complaints, nl mood/affect; No confusion Head: normocephalic, atraumatic Eyes: nl conjunctiva, PERRL; No icteric ENMT: nl external ears & nose, mucosa pink and moist, other (oral thrush ) Neck: supple Respiratory: clear to auscultation, normal air movement, respirations (WNL); No congested cough, No crackles/rales, No diminished breath sounds, No intercostal retraction, No labored breathing, No wheezing Cardiovascular: regular rate and rhythm, nl pulses; No bruits Gastrointestinal: soft, bowel sounds (normoactive), other ((midabdominal inci archana site covered with dressing c/d/i. LUQ ostomy site draining serosanguinous fluid with small amt of purulent looking fluid mixed in, LLQ surgical drain bag empty ); No distended, No rebound or guarding Musculoskeletal: nl extremities to inspection, range of motion Extremities: normal pulses; No clubbing, No edema Neurological: nl mental status, nl speech, nl strength; No confused, No numbness Skin: ecchymosis, other (midabdominal wound) Results Result Diagram: 02/20/19 0640 02/21/19 0743 Results 24hrs Laboratory Tests Test 02/20/19 17:52 02/21/19 00:01 02/21/19 00:52 02/21/19 05:59 Bedside Glucose 141 117 119 Urine Color YELLOW Urine Clarity SLIGHTLY CLOUDY A Urine pH 5.0 Urine Specific 1.011 [place] Urine Ketones NEGATIVE Urine Nitrite NEGATIVE Urine Bilirubin NEGATIVE Urine Urobilinogen NEGATIVE Urine Leukocyte NEGATIVE Esterase Urine Microscopic 0 RBC Urine Microscopic 0 WBC Urine Hemoglobin 1+ H Urine Random 95.17 Creatinine Urine Random < 13 L Sodium Urine Glucose NEGATIVE Urine Total 40.0 H Protein Test 02/21/19 07:43 02/21/19 11:55 Sodium Level 133 L Potassium Level 3.8 Chloride Level 87 L Carbon Dioxide 34 H Level Anion Gap 12 Blood Urea 38 H Nitrogen Creatinine 1.86 H Est Glomerular 37 L Filtrat Rate mL/min Glucose Level 126 Calcium Level 9.6 Phosphorus Level 4.9 Magnesium Level 2.3 Bedside Glucose 149 Medications Medication Current Medications Hydralazine HCl (Apresoline) 10 mg Q4H PRN IV >150/95 Last administered on 01/24/19at 05:34; Admin Dose 10 MG; Start 01/21/19 at 14:00 Metoprolol Tartrate (Lopressor) 5 mg Q4H PRN IV HR>110 HOld SBP<100 Last administered on 02/18/19at 18:53; Admin Dose 5 MG; Start 01/23/19 at 20:30 Levalbuterol (Xopenex Neb) 0.63 mg Q6H RESP THERAPY HHN Last administered on 02/21/19at 08:16; Admin Dose 0.63 MG; Start 01/24/19 at 23:30 Acetaminophen (Tylenol Tab) 650 mg Q6H PRN PO MILD PAIN(1-3)OR ELEVATED TEMP Last administered on 02/10/19 21:54; Admin Dose 650 MG; Start 01/29/19 at 23:30 Al Hydrox/Mg Hydrox/Simethicone (Mag-Al Plus) 30 ml Q4H PRN PO GASTROINTESTINAL UPSET Last administered on 01/30/19at 18:39; Admin Dose 30 ML; Start 01/29/19 at 23:30 Atenolol (Tenormin) 50 mg BID PO Last administered on 02/21/19 09:01; Admin Dose 50 MG; Start 01/30/19 at 21:00 Morphine Sulfate (morphine) 2 mg Q2H PRN IV PAIN LEVEL 6-10; Start 02/11/19 at 16:30 Acetaminophen/ Hydrocodone Bitart ([place] (5/325)) 1 tab Q6H PRN PO PAIN LEVEL 6-10; Start 02/11/19 at 16:30 Fluconazole 100 ml @ 100 mls/hr Q24H IVPB Last administered on 02/21/19 12:50; Admin Dose 100 MLS/HR; Start 02/12/19 at 12:30 Nystatin (Nystatin Susp) 5 ml QID PO Last administered on 02/21/19 12:50; Admin Dose 5 ML; Start 02/12/19 at 13:00 Diagnostic Test (Pha) (Accu-Chek) 1 ea Q6 XX Last administered on 02/21/19 12:41; Admin Dose 1 EA; Start 02/15/19 at 12:00 Enoxaparin Sodium (Lovenox) 80 mg BID SC Last administered on 02/21/19 09:10; Admin Dose 80 MG; Start 02/16/19 at 21:00 Diltiazem HCl (Cardizem Cd) 120 mg BID PO Last administered on 02/21/19 09:01; Admin Dose 120 MG; Start 02/18/19 at 21:00 Sodium Chloride 1,000 ml @ 75 mls/hr [id number] IV Last administered on 02/21/19 09:12; Admin Dose 75 MLS/HR; Start 02/21/19 at 09:00 Loperamide HCl (Imodium Cap) 2 mg QID PO Last administered on 02/21/19 12:50; Admin Dose 2 MG; Start 02/21/19 at 13:00 CHRISTOPH REED NP February 21, 2019 13:19
--- NOTE | 2019-02-21 14:30 | PN ---
Date/Time of Note Date/Time of Note DATE: 02/21/19 TIME: 14:28 Assessment/Plan VTE Prophylaxis Risk score (from Ns)>0 risk: 11 SCD applied (from Ns): Yes Pharmacological prophylaxis: other Lines/Catheters IV Catheter Type (from Nrs): Saline Lock Urinary Cath still in place: No Assessment/Plan Assessment/Plan s/p loop diversion ileostomy for anastomotic leak slight increased cr. will start imodium to slow down transit will continue to monitor closely and with close followup if cr improves ok to dc home tomorrow Result Diagram: 02/20/19 0640 02/21/19 0743 Results 24hrs Laboratory Tests Test 02/20/19 17:52 02/21/19 00:01 02/21/19 00:52 02/21/19 05:59 Bedside Glucose 141 117 119 Urine Color YELLOW Urine Clarity SLIGHTLY CLOUDY A Urine pH 5.0 Urine Specific 1.011 [place] Urine Ketones NEGATIVE Urine Nitrite NEGATIVE Urine Bilirubin NEGATIVE Urine Urobilinogen NEGATIVE Urine Leukocyte NEGATIVE Esterase Urine Microscopic 0 RBC Urine Microscopic 0 WBC Urine Hemoglobin 1+ H Urine Random 95.17 Creatinine Urine Random < 13 L Sodium Urine Glucose NEGATIVE Urine Total 40.0 H Protein Test 02/21/19 07:43 02/21/19 11:55 Sodium Level 133 L Potassium Level 3.8 Chloride Level 87 L Carbon Dioxide 34 H Level Anion Gap 12 Blood Urea 38 H Nitrogen Creatinine 1.86 H Est Glomerular 37 L Filtrat Rate mL/min Glucose Level 126 Calcium Level 9.6 Phosphorus Level 4.9 Magnesium Level 2.3 Bedside Glucose 149 Subjective 24 Hr Interval Summary Free Text/Dictation ileostomy output was more semisolid Cr. increased will give more fluids no evidence of sepsis or infection after abx was stopped no fevers no leukocytosis Exam/Review of Systems Exam Vitals Vital Signs Date Temp Pulse Resp B/P (MAP) Pulse Ox O2 O2 Flow FiO2 Time Delivery Rate 02/21/19 77 12:38 02/21/19 98.5 18 116/74 98 Room Air 11:31 (88) 02/21/19 21 08:17 02/18/19 2.0 07:56 Intake and Output 02/20/19 02/20/19 02/21/19 1515:00 23:00 07:00 IntakeIntake Total 800 ml OutputOutput Total 60 ml 1700 ml BalanceBalance -60 ml -900 ml Exam healing wound with viable ileostomy and more solid output Results Results 24hrs Laboratory Tests Test 02/20/19 17:52 02/21/19 00:01 02/21/19 00:52 02/21/19 05:59 Bedside Glucose 141 117 119 Urine Color YELLOW Urine Clarity SLIGHTLY CLOUDY A Urine pH 5.0 Urine Specific 1.011 [place] Urine Ketones NEGATIVE Urine Nitrite NEGATIVE Urine Bilirubin NEGATIVE Urine Urobilinogen NEGATIVE Urine Leukocyte NEGATIVE Esterase Urine Microscopic 0 RBC Urine Microscopic 0 WBC Urine Hemoglobin 1+ H Urine Random 95.17 Creatinine Urine Random < 13 L Sodium Urine Glucose NEGATIVE Urine Total 40.0 H Protein Test 02/21/19 07:43 02/21/19 11:55 Sodium Level 133 L Potassium Level 3.8 Chloride Level 87 L Carbon Dioxide 34 H Level Anion Gap 12 Blood Urea 38 H Nitrogen Creatinine 1.86 H Est Glomerular 37 L Filtrat Rate mL/min Glucose Level 126 Calcium Level 9.6 Phosphorus Level 4.9 Magnesium Level 2.3 Bedside Glucose 149 Medications Medication Current Medications Hydralazine HCl (Apresoline) 10 mg Q4H PRN IV >150/95 Last administered on 01/24/19 05:34; Admin Dose 10 MG; Start 01/21/19 at 14:00 Metoprolol Tartrate (Lopressor) 5 mg Q4H PRN IV HR>110 HOld SBP<100 Last administered on 02/18/19 18:53; Admin Dose 5 MG; Start 01/23/19 at 20:30 Levalbuterol (Xopenex Neb) 0.63 mg Q6H RESP THERAPY HHN Last administered on 02/21/19 08:16; Admin Dose 0.63 MG; Start 01/24/19 at 23:30 Acetaminophen (Tylenol Tab) 650 mg Q6H PRN PO MILD PAIN(1-3)OR ELEVATED TEMP Last administered on 02/10/19 21:54; Admin Dose 650 MG; Start 01/29/19 at 23:30 Al Hydrox/Mg Hydrox/Simethicone (Mag-Al Plus) 30 ml Q4H PRN PO GASTROINTESTINAL UPSET Last administered on 01/30/19 18:39; Admin Dose 30 ML; Start 01/29/19 at 23:30 Atenolol (Tenormin) 50 mg BID PO Last administered on 02/21/19 09:01; Admin Dose 50 MG; Start 01/30/19 at 21:00 Morphine Sulfate (morphine) 2 mg Q2H PRN IV PAIN LEVEL 6-10; Start 02/11/19 at 16:30 Acetaminophen/ Hydrocodone Bitart ([place] (5/325)) 1 tab Q6H PRN PO PAIN LEVEL 6-10; Start 02/11/19 at 16:30 Fluconazole 100 ml @ 100 mls/hr Q24H IVPB Last administered on 02/21/19 12:50; Admin Dose 100 MLS/HR; Start 02/12/19 at 12:30 Nystatin (Nystatin Susp) 5 ml QID PO Last administered on 02/21/19 12:50; Admin Dose 5 ML; Start 02/12/19 at 13:00 Diagnostic Test (Pha) (Accu-Chek) 1 ea Q6 XX Last administered on 02/21/19 12:41; Admin Dose 1 EA; Start 02/15/19 at 12:00 Enoxaparin Sodium (Lovenox) 80 mg BID SC Last administered on 02/21/19 09:10; Admin Dose 80 MG; Start 02/16/19 at 21:00 Diltiazem HCl (Cardizem Cd) 120 mg BID PO Last administered on 02/21/19 09:01; Admin Dose 120 MG; Start 02/18/19 at 21:00 Sodium Chloride 1,000 ml @ 75 mls/hr [id number] IV Last administered on 02/21/19 09:12; Admin Dose 75 MLS/HR; Start 02/21/19 at 09:00 Loperamide HCl (Imodium Cap) 2 mg QID PO Last administered on 02/21/19 12:50; Admin Dose 2 MG; Start 02/21/19 at 13:00 Ann FERNANDEZ February 21, 2019 14:30
--- NOTE | 2019-02-21 15:47 | PN ---
Date/Time of Note Date/Time of Note DATE: 02/21/19 TIME: 15:40 Assessment/Plan VTE Prophylaxis Risk score (from Ns)>0 risk: 13 SCD applied (from Ns): Yes Pharmacological prophylaxis: LMWH Lines/Catheters IV C[facility]from [facility] Saline Lock Urinary Cath still in place: No Assessment/Plan Hospital Course Patient with elevated creatinine 1.86 today, continued on IV fluids and albumin, continue to monitor renal function. Assessment/Plan -Atrial fibrillation with rapid ventricular response. Dr. Alejandro is following in cardiology consultation. Continue Lovenox and Cardizem, telemetry monitoring. -Anastomotic leak and intra-abdominal abscess, S/p CT guided drainage of abscess in LLQ on 02/01/2019. Status post laparotomy, washout of the peritoneal cavity, placement of a diverting loop ileostomy in right lower quadrant for protection of the anastomosis in the colorectal area on 02/11/[address] Art. Continue ceftriaxone per ID recommendation. -Sepsis secondary to intra-abdominal infection and pneumonia, resolved, s/p treatment with antibiotics. Dr. Bosch is following in infection disease consultation. -R pleural effusion, s/p R sided thoracentesis on 02/05/2019 -S/p open Reagan reversal and colorectal low pelvic anastomosis, segmental partial colectomy, and open incarcerated incisional and parastomal hernia repairs with mesh by Dr. Art on 01/21/2019. Continue [place] and Dilaudid as needed for pain and Zofran as needed for nausea. -Stage III sigmoid colon cancer, status post surgery and chemo in 2018. -Acute kidney injury on chronic kidney disease, monitor urine output BUN and creatinine. Dr. Stuart is following in nephrology consultation. -Acute on chronic diastolic CHF -Protein calorie malnutrition, improved. Patient required TPN which is currently stopped, patient tolerates a regular diet. -Obstructive sleep apnea -History of hypertension -History of left upper extremity DVT, status post bilateral upper extremity ultrasound on 02/05/2019: No sonographic evidence for bilateral upper extremity deep venous thrombosis. Superficial thrombus in the right cephalic vein in the forearm. Cephalic vein in the upper arm is patent. Superficial thrombus in the left cephalic vein in the antecubital fossa. Cephalic vein in the upper arm is patent. Further recommendations based on clinical course. Plan of care discussed with Dr. Fox. Result Diagram: 02/20/19 0640 02/21/19 0743 Results 24hrs Laboratory Tests Test 02/20/19 17:52 02/21/19 00:01 02/21/19 00:52 02/21/19 05:59 Bedside Glucose 141 117 119 Urine Color YELLOW Urine Clarity SLIGHTLY CLOUDY A Urine pH 5.0 Urine Specific 1.011 [place] Urine Ketones NEGATIVE Urine Nitrite NEGATIVE Urine Bilirubin NEGATIVE Urine Urobilinogen NEGATIVE Urine Leukocyte NEGATIVE Esterase Urine Microscopic 0 RBC Urine Microscopic 0 WBC Urine Hemoglobin 1+ H Urine Random 95.17 Creatinine Urine Random < 13 L Sodium Urine Glucose NEGATIVE Urine Total 40.0 H Protein Test 02/21/19 07:43 02/21/19 11:55 Sodium Level 133 L Potassium Level 3.8 Chloride Level 87 L Carbon Dioxide 34 H Level Anion Gap 12 Blood Urea 38 H Nitrogen Creatinine 1.86 H Est Glomerular 37 L Filtrat Rate mL/min Glucose Level 126 Calcium Level 9.6 Phosphorus Level 4.9 Magnesium Level 2.3 Bedside Glucose 149 Exam/Review of Systems Exam Vitals Vital Signs Date Temp Pulse Resp B/P (MAP) Pulse Ox O2 O2 Flow FiO2 Time Delivery Rate 02/21/19 77 12:38 02/21/19 98.5 18 116/74 98 Room Air 11:31 (88) 02/21/19 21 08:17 02/18/19 2.0 07:56 Intake and Output 02/20/19 02/20/19 02/21/19 1515:00 23:00 07:00 IntakeIntake Total 800 ml OutputOutput Total 60 ml 1700 ml BalanceBalance -60 ml -900 ml Exam Constitutional: alert, oriented Respiratory: clear to auscultation Cardiovascular: irregular rhythm Gastrointestinal: soft, other (Abdominal surgical incision, accordion drain) Extremities: normal pulses Neurological: nl mental status Results Results 24hrs Laboratory Tests Test 02/20/19 17:52 02/21/19 00:01 02/21/19 00:52 02/21/19 05:59 Bedside Glucose 141 117 119 Urine Color YELLOW Urine Clarity SLIGHTLY CLOUDY A Urine pH 5.0 Urine Specific 1.011 [place] Urine Ketones NEGATIVE Urine Nitrite NEGATIVE Urine Bilirubin NEGATIVE Urine Urobilinogen NEGATIVE Urine Leukocyte NEGATIVE Esterase Urine Microscopic 0 RBC Urine Microscopic 0 WBC Urine Hemoglobin 1+ H Urine Random 95.17 Creatinine Urine Random < 13 L Sodium Urine Glucose NEGATIVE Urine Total 40.0 H Protein Test 02/21/19 07:43 02/21/19 11:55 Sodium Level 133 L Potassium Level 3.8 Chloride Level 87 L Carbon Dioxide 34 H Level Anion Gap 12 Blood Urea 38 H Nitrogen Creatinine 1.86 H Est Glomerular 37 L Filtrat Rate mL/min Glucose Level 126 Calcium Level 9.6 Phosphorus Level 4.9 Magnesium Level 2.3 Bedside Glucose 149 Medications Medication Current Medications Hydralazine HCl (Apresoline) 10 mg Q4H PRN IV >150/95 Last administered on 01/24/19 05:34; Admin Dose 10 MG; Start 01/21/19 at 14:00 Metoprolol Tartrate (Lopressor) 5 mg Q4H PRN IV HR>110 HOld SBP<100 Last administered on 02/18/19 18:53; Admin Dose 5 MG; Start 01/23/19 at 20:30 Levalbuterol (Xopenex Neb) 0.63 mg Q6H RESP THERAPY HHN Last administered on 02/21/19 08:16; Admin Dose 0.63 MG; Start 01/24/19 at 23:30 Acetaminophen (Tylenol Tab) 650 mg Q6H PRN PO MILD PAIN(1-3)OR ELEVATED TEMP Last administered on 02/10/19 21:54; Admin Dose 650 MG; Start 01/29/19 at 23:30 Al Hydrox/Mg Hydrox/Simethicone (Mag-Al Plus) 30 ml Q4H PRN PO GASTROINTESTINAL UPSET Last administered on 01/30/19at 18:39; Admin Dose 30 ML; Start 01/29/19 at 23:30 Atenolol (Tenormin) 50 mg BID PO Last administered on 02/21/19 09:01; Admin Dose 50 MG; Start 01/30/19 at 21:00 Morphine Sulfate (morphine) 2 mg Q2H PRN IV PAIN LEVEL 6-10; Start 02/11/19 at 16:30 Acetaminophen/ Hydrocodone Bitart ([place] (5/325)) 1 tab Q6H PRN PO PAIN LEVEL 6-10; Start 02/11/19 at 16:30 Fluconazole 100 ml @ 100 mls/hr Q24H IVPB Last administered on 02/21/19at 12:50; Admin Dose 100 MLS/HR; Start 02/12/19 at 12:30 Nystatin (Nystatin Susp) 5 ml QID PO Last administered on 02/21/19 12:50; Admin Dose 5 ML; Start 02/12/19 at 13:00 Diagnostic Test (Pha) (Accu-Chek) 1 ea Q6 XX Last administered on 02/21/19 12:41; Admin Dose 1 EA; Start 02/15/19 at 12:00 Enoxaparin Sodium (Lovenox) 80 mg BID SC Last administered on 02/21/19 09:10; Admin Dose 80 MG; Start 02/16/19 at 21:00 Diltiazem HCl (Cardizem Cd) 120 mg BID PO Last administered on 02/21/19 09:01; Admin Dose 120 MG; Start 02/18/19 at 21:00 Sodium Chloride 1,000 ml @ 75 mls/hr [id number] IV Last administered on 02/21/19 09:12; Admin Dose 75 MLS/HR; Start 02/21/19 at 09:00 Loperamide HCl (Imodium Cap) 2 mg QID PO Last administered on 02/21/19 12:50; Admin Dose 2 MG; Start 02/21/19 at 13:00 ODELL PACHECO February 21, 2019 15:47
[2019-02-21] MEDS: CEFTRIAXONE 1 GM/50 ML (PMX) 50 ML IVPB SCH (16:59)
--- NOTE | 2019-02-21 20:02 | CONS ---
Assessment/Plan Assessment/Plan Hospital Course (Demo Recall) IMPRESSION: 1. Tachycardia c/w AF now converted to SR NL EF by echo 60-65 2. Possible congestive heart failure by chest x-ray with the patient having the onset of acute renal failure at this time. 3. Hypertension 4. Postoperative status post reversal colostomy. 5. Fevers postop. 6. Renal failure, acute 7. History of colon carcinoma status post prior colectomy with colostomy with anastomatic leak by abd CT and now post-op s/p repeat surgery with removal abscess and placement of drains 8. Hypernatremia, improved 9. Hypomagnesemia-improved 10. Leukocytosis. Recc: -Tele -Continue PO BB/CCB as tolerated -Pain control -Continue abx's and f/u cx data -Follow volume status closely and will hold lasix given onset ARF and now on gentle iVF hydration -Continue lovenox -routine post-op care -now off TPN Consultation Date/Type/Reason Admit Date/Time Jan 21, 2019 at 06:18 Initial Consult Date 01/23/19 Type of Consult Cardiology Reason for Consultation PAF Requesting Provider: ODELL PACHECO Date/Time of Note DATE: 02/21/19 TIME: 20:01 Exam/Review of Systems Vital Signs Vitals Vital Signs Date Temp Pulse Resp B/P (MAP) Pulse Ox O2 O2 Flow FiO2 Time Delivery Rate 02/21/19 98.2 78 18 114/67 98 19:55 (83) 02/21/19 Room Air 15:57 02/21/19 21 08:17 02/18/19 2.0 07:56 Intake and Output 02/20/19 02/20/19 02/21/19 1515:00 23:00 07:00 IntakeIntake Total 800 ml OutputOutput Total 60 ml 1700 ml BalanceBalance -60 ml -900 ml Exam Exam Review of Systems: CONSTITUTIONAL: No fevers, chills. PULMONARY: No sob CARDIOVASCULAR: No chest pain/palpitations GASTROINTESTINAL: No nausea/vomiting. GENITOURINARY: No hematuria/dysuria. MUSCULOSKELETAL: No myagias/arthalgias. PSYCHIATRIC: The patient denies depression. NEUROLOGIC: No weakness Constitutional: alert Psych: no complaints Head: normocephalic ENMT: mucosa pink and moist Neck: supple, jvd (9 cm water) Respiratory: diminished breath sounds (at bases/B) Cardiovascular: regular rate and rhythm Gastrointestinal: soft, non-tender Musculoskeletal: muscle tone (normal) Extremities: edema (none) Labs Result Diagram: 02/20/19 0640 02/21/19 0743 Results 24hrs Laboratory Tests Test 02/21/19 00:01 02/21/19 00:52 02/21/19 05:59 02/21/19 07:43 Urine Color YELLOW Urine Clarity SLIGHTLY CLOUDY A Urine pH 5.0 Urine Specific 1.011 [place] Urine Ketones NEGATIVE Urine Nitrite NEGATIVE Urine Bilirubin NEGATIVE Urine Urobilinogen NEGATIVE Urine Leukocyte NEGATIVE Esterase Urine Microscopic 0 RBC Urine Microscopic 0 WBC Urine Hemoglobin 1+ H Urine Random 95.17 Creatinine Urine Random < 13 L Sodium Urine Glucose NEGATIVE Urine Total 40.0 H Protein Bedside Glucose 117 119 Sodium Level 133 L Potassium Level 3.8 Chloride Level 87 L Carbon Dioxide 34 H Level Anion Gap 12 Blood Urea 38 H Nitrogen Creatinine 1.86 H Est Glomerular 37 L Filtrat Rate mL/min Glucose Level 126 Calcium Level 9.6 Phosphorus Level 4.9 Magnesium Level 2.3 Test 02/21/19 11:55 02/21/19 17:16 Bedside Glucose 149 137 Medications Medications Current Medications Hydralazine HCl (Apresoline) 10 mg Q4H PRN IV >150/95 Last administered on 01/24/19at 05:34; Admin Dose 10 MG; Start 01/21/19 at 14:00 Metoprolol Tartrate (Lopressor) 5 mg Q4H PRN IV HR>110 HOld SBP<100 Last administered on 02/18/19 18:53; Admin Dose 5 MG; Start 01/23/19 at 20:30 Levalbuterol (Xopenex Neb) 0.63 mg Q6H RESP THERAPY HHN Last administered on 02/21/19 08:16; Admin Dose 0.63 MG; Start 01/24/19 at 23:30 Acetaminophen (Tylenol Tab) 650 mg Q6H PRN PO MILD PAIN(1-3)OR ELEVATED TEMP Last administered on 02/10/19 21:54; Admin Dose 650 MG; Start 01/29/19 at 23:30 Al Hydrox/Mg Hydrox/Simethicone (Mag-Al Plus) 30 ml Q4H PRN PO GASTROINTESTINAL UPSET Last administered on 01/30/19 18:39; Admin Dose 30 ML; Start 01/29/19 at 23:30 Atenolol (Tenormin) 50 mg BID PO Last administered on 02/21/19 09:01; Admin Dose 50 MG; Start 01/30/19 at 21:00 Morphine Sulfate (morphine) 2 mg Q2H PRN IV PAIN LEVEL 6-10; Start 02/11/19 at 16:30 Acetaminophen/ Hydrocodone Bitart ([place] (5/325)) 1 tab Q6H PRN PO PAIN LEVEL 6-10; Start 02/11/19 at 16:30 Fluconazole 100 ml @ 100 mls/hr Q24H IVPB Last administered on 02/21/19 12:50; Admin Dose 100 MLS/HR; Start 02/12/19 at 12:30 Nystatin (Nystatin Susp) 5 ml QID PO Last administered on 02/21/19 16:59; Admin Dose 5 ML; Start 02/12/19 at 13:00 Diagnostic Test (Pha) (Accu-Chek) 1 ea Q6 XX Last administered on 02/21/19 17:56; Admin Dose 1 EA; Start 02/15/19 at 12:00 Enoxaparin Sodium (Lovenox) 80 mg BID SC Last administered on 02/21/19 09:10; Admin Dose 80 MG; Start 02/16/19 at 21:00 Diltiazem HCl (Cardizem Cd) 120 mg BID PO Last administered on 02/21/19 09:01; Admin Dose 120 MG; Start 02/18/19 at 21:00 Sodium Chloride 1,000 ml @ 75 mls/hr [id number] IV Last administered on 02/21/19 09:12; Admin Dose 75 MLS/HR; Start 02/21/19 at 09:00 Loperamide HCl (Imodium Cap) 2 mg QID PO Last administered on 02/21/19 16:59; Admin Dose 2 MG; Start 02/21/19 at 13:00 Ceftriaxone Sodium 50 ml @ 100 mls/hr Q24H IVPB Last administered on 02/21/19 16:59; Admin Dose 100 MLS/HR; Start 02/21/19 at 16:00 EUGENE ANDERSON February 21, 2019 20:02
[2019-02-22] VITALS (11 sets, daily range): BP systolic 111–131; BP diastolic 67–71; PULSE 73–80; RESP 19–20
[2019-02-22] MEDS: SOD CHLORIDE 0.9% 1,000 ML IV SCH ×3 (00:07→20:47)
[2019-02-22] MEDS: LEVALBUTEROL (NEB) 0.63 MG/3 ML AMP HHN SCH ×4 (01:48→19:55)
[2019-02-22] MEDS: ACCU-CHEK XX SCH ×4 (06:17→17:48)
--- NOTE | 2019-02-22 08:46 | PN ---
DATE: 02/22/2019 SUBJECTIVE: The patient is stable. The patient has had minimal urinary output in the last 24 hours. The patient continues to have copious output from his ileostomy. No other events noted. OBJECTIVE: VITAL SIGNS: Blood pressure is 126/70, pulse 74, respirations 20, temperature 98.7. HEENT: Head is normocephalic. NECK: Supple. HEART: Regular rate. LUNGS: Show diminished breath sounds at the base. ABDOMEN: Soft, nontender to palpation without rebound or guarding. EXTREMITIES: Negative for clubbing, cyanosis, no edema. DERMATOLOGIC: No rashes. MUSCULOSKELETAL: No joint effusion. NEUROLOGIC: No change in exam. MEDICATIONS: Reviewed. LABORATORY DATA: Reviewed. ASSESSMENT AND PLAN: 1. Nonoliguric acute kidney injury with previous baseline creatinine of 0.7 mg/dL. Etiology of acut e kidney injury is secondary to volume depletion secondary to gastrointestinal losses. The patient w as initiated on IV fluids with stabilization of renal function. Plan is to continue IV hydration. W e will decrease rate of 100 mL per hour. Monitor I's and O's and volume status closely. 2. Hypernatremia secondary to acute kidney injury, improved. Continue to monitor. 3. Anemia. Continue to monitor hemoglobin and hematocrit levels. 4. Metabolic alkalosis. Etiology is secondary to acute kidney injury, volume depletion. Continue I V hydration and monitor. 5. Anemia. Monitor hemoglobin and hematocrit levels. 6. Mineral bone disorder, monitor calcium and phosphorus levels. 7. Anastomotic leak status post laparotomy with peritoneal washout and diverting ileostomy. Continu e to monitor. 8. Sepsis secondary to intraabdominal infection, pneumonia. The patient is completing antibiotic co urse. 9. History of colon cancer, status post surgery and chemotherapy. 10. History of heart failure. Continue to monitor closely on IV hydration. 11. History of sleep apnea. 12. History of hypertension. 13. Left lower extremity thrombosis. Continue medical management. 14. Atrial fibrillation. Continue current treatment plan. Dictated By: SUSAN HERNANDEZ/NTS Conf#: [id number] DID#: [id number] CC: JACOB FERNANDEZ MD; ANDREY ZHENG MD;*EndCC*
[2019-02-22] MEDS: NYSTATIN SUSP 5 ML CUP PO SCH ×4 (08:57→21:32)
[2019-02-22] MEDS: LOPERAMIDE 2 MG CAP PO SCH ×4 (08:57→21:31)
[2019-02-22] MEDS: DILTIAZEM (CD) 120 MG CAP PO SCH ×2 (08:58→21:32)
[2019-02-22] MEDS: ATENOLOL 50 MG TAB PO SCH ×2 (08:59→21:32)
[2019-02-22] MEDS: ENOXAPARIN 80 MG/0.8 ML SYG SC SCH ×2 (09:13→21:40)
--- NOTE | 2019-02-22 10:13 | CONS ---
Consult Date/Type/Reason Admit Date/Time Jan 21, 2019 at 06:18 Initial Consult Date Requesting Provider: ODELL PACHECO Date/Time of Note DATE: 02/22/19 TIME: 10:11 Subjective NO acute events - pt comfortable + urine output, Dr. Stuart follows ROS: No fever, no chills, no nausea, no vomiting, no diarrhea/constipation No recent weight changes No chest pain, no PND, no orthopnea - mild SOB No dizziness, blurred vision No thirst, no heat or cold intolerance Objective Vitals Vital Signs Date Temp Pulse Resp B/P (MAP) Pulse Ox O2 O2 Flow FiO2 Time Delivery Rate 02/22/19 82 18 93 21 09:06 02/22/19 98.7 126/70 Room Air 07:29 (88) 02/18/19 2.0 07:56 Intake and Output 02/21/19 02/21/19 02/22/19 1515:00 23:00 07:00 IntakeIntake Total 2400 ml 600 ml OutputOutput Total 0 ml 1800 ml 1200 ml BalanceBalance 0 ml 600 ml -600 ml Exam General: WN/WD/NAD, AOx 3 comfortable HEENT: Unicetric/atraumatic/EOMI ( follows commands) NECK: JVD elevated, no thyromegaly Lymph: no lymphadenopathy HEART: regular with no S3, II/ systolic murmur at apex LUNGS: Coarse sounds ABD: soft, NT, ND, +BS : Intact Neuro: non focal SKIN: chronic changes EXT: trace edema Results/Medications Result Diagram: 02/22/19 0620 02/22/19 0619 Results 24 hrs Laboratory Tests Test 02/21/19 11:55 02/21/19 17:16 02/22/19 00:06 02/22/19 06:08 Bedside Glucose 149 137 115 119 Test 02/22/19 06:19 02/22/19 06:20 Sodium Level 135 Potassium Level 3.8 Chloride Level 90 L Carbon Dioxide Level 36 H Anion Gap 9 Blood Urea Nitrogen 43 H Creatinine 1.88 H Est Glomerular 37 L Filtrat Rate mL/min Glucose Level 107 Calcium Level 9.5 Phosphorus Level 4.9 Magnesium Level 2.3 White Blood Count 9.1 Red Blood Count 3.46 L Hemoglobin 10.1 L Hematocrit 30.8 L Mean Corpuscular 89.0 Volume Mean Corpuscular 29.2 Hemoglobin Mean Corpuscular 32.8 Hemoglobin Concent Red Cell 13.7 Distribution Width Platelet Count 416 H Mean Platelet Volume 11.3 H Immature 3.300 H Granulocytes % Neutrophils % 74.2 Lymphocytes % 10.4 L Monocytes % 10.1 Eosinophils % 1.7 Basophils % 0.3 Nucleated Red Blood 0.0 Cells % Immature 0.300 H Granulocytes # Neutrophils # 6.7 Lymphocytes # 0.9 Monocytes # 0.9 Eosinophils # 0.2 Basophils # 0.0 Nucleated Red Blood 0.0 Cells # Home Meds Active Scripts Carvedilol* (Carvedilol*) 25 Mg Tablet, 25 MG PO BID for 30 Days, TAB Prov:ODELL PACHECO 01/15/18 Furosemide* (Furosemide*) 20 Mg Tablet, 20 MG PO DAILY for 30 Days, TAB Prov:ODELL PACHECO 01/15/18 Reported Medications Apixaban* (Eliquis*) 5 Mg Tablet, 5 MG PO BID, TAB 11/02/18 Losartan Potassium* (Losartan Potassium*) 100 Mg Tablet, 100 MG PO DAILY, TAB 11/02/18 Nifedipine* (Nifedipine ER*) 60 Mg Tablet.sa, 60 MG PO BID, TAB.SA 11/02/18 Atorvastatin Calcium* (Atorvastatin Calcium*) 20 Mg Tablet, 20 MG PO QHS, #30 TAB 01/07/18 Medications Current Medications Hydralazine HCl (Apresoline) 10 mg Q4H PRN IV >150/95 Last administered on 01/24/19at 05:34; Admin Dose 10 MG; Start 01/21/19 at 14:00 Metoprolol Tartrate (Lopressor) 5 mg Q4H PRN IV HR>110 HOld SBP<100 Last administered on 02/18/19at 18:53; Admin Dose 5 MG; Start 01/23/19 at 20:30 Levalbuterol (Xopenex Neb) 0.63 mg Q6H RESP THERAPY HHN Last administered on 02/22/19at 09:06; Admin Dose 0.63 MG; Start 01/24/19 at 23:30 Acetaminophen (Tylenol Tab) 650 mg Q6H PRN PO MILD PAIN(1-3)OR ELEVATED TEMP Last administered on 02/10/19at 21:54; Admin Dose 650 MG; Start 01/29/19 at 23:30 Al Hydrox/Mg Hydrox/Simethicone (Mag-Al Plus) 30 ml Q4H PRN PO GASTROINTESTINAL UPSET Last administered on 01/30/19 18:39; Admin Dose 30 ML; Start 01/29/19 at 23:30 Atenolol (Tenormin) 50 mg BID PO Last administered on 02/22/19 08:59; Admin D ose 50 MG; Start 01/30/19 at 21:00 Morphine Sulfate (morphine) 2 mg Q2H PRN IV PAIN LEVEL 6-10; Start 02/11/19 at 16:30 Acetaminophen/ Hydrocodone Bitart ([place] (5/325)) 1 tab Q6H PRN PO PAIN LEVEL 6-10; Start 02/11/19 at 16:30 Fluconazole 100 ml @ 100 mls/hr Q24H IVPB Last administered on 02/21/19 12:50; Admin Dose 100 MLS/HR; Start 02/12/19 at 12:30 Nystatin (Nystatin Susp) 5 ml QID PO Last administered on 02/22/19 08:57; Admin Dose 5 ML; Start 02/12/19 at 13:00 Diagnostic Test (Pha) (Accu-Chek) 1 ea Q6 XX Last administered on 02/22/19 06:17; Admin Dose 1 EA; Start 02/15/19 at 12:00 Enoxaparin Sodium (Lovenox) 80 mg BID SC Last administered on 02/22/19 09:13; Admin Dose 80 MG; Start 02/16/19 at 21:00 Diltiazem HCl (Cardizem Cd) 120 mg BID PO Last administered on 02/22/19 08:58; Admin Dose 120 MG; Start 02/18/19 at 21:00 Sodium Chloride 1,000 ml @ 100 mls/hr Q10H IV Last administered on 02/22/19 00:07; Admin Dose 75 MLS/HR; Start 02/21/19 at 09:00 Loperamide HCl (Imodium Cap) 2 mg QID PO Last administered on 02/22/19 08:57; Admin Dose 2 MG; Start 02/21/19 at 13:00 Ceftriaxone Sodium 50 ml @ 100 mls/hr Q24H IVPB Last administered on 5/9/19at 16:59; Admin Dose 100 MLS/HR; Start 02/21/19 at 16:00 Assessment/Plan Hospital Course (Demo Recall) 1. A. fib - rate cntrolled now- had few episodes of RVR, better now - will monitor clinically now. 2. Possible congestive heart failure by chest x-ray with the patient having the onset of acute renal failure at this time. Improved CHF. Better. Keep euvolemic. Stable. Better now. 3. Hypertension, mildly elevated. BP well optimized nw. Will re-check post am meds. Treated. 4. Postoperative status post reversal colostomy - GI team follows,. Con't to recover. On therapy. Surgical team follows. Drains. 5. No new episodes. 6. Renal failure, acute.-improved now - renal team follows. CR stable at 1.88 - renal team follows. 7. History of colon carcinoma status post prior colectomy with colostomy - now with therapy post op. Defer to surgical team. 8. Hypernatremia, improved 9. Hypomagnesemia-improved 10. Leukocytosis. On anti-Bx, better overall. SUSSY ANTHONY MD February 22, 2019 10:13
--- NOTE | 2019-02-22 11:04 | PN ---
Date/Time of Note Date/Time of Note DATE: 02/22/19 TIME: 11:03 Assessment/Plan VTE Prophylaxis Risk score (from Nsg)>0 risk: 12 SCD applied (from Nsg): Yes Lines/Catheters IV Catheter Type (from Nrsg): Saline Lock Urinary Cath still in place: No Assessment/Plan Assessment/Plan -Atrial fibrillation with rapid ventricular response. Dr. Alejandro is following in cardiology consultation. Continue Lovenox and Cardizem, telemetry monitoring. -Anastomotic leak and intra-abdominal abscess, S/p CT guided drainage of abscess in LLQ on 02/01/2019. Status post laparotomy, washout of the peritoneal cavity, placement of a diverting loop ileostomy in right lower quadrant for protection of the anastomosis in the colorectal area on 02/11/[address] Art. Continue ceftriaxone per ID recommendation. -Sepsis secondary to intra-abdominal infection and pneumonia, resolved, s/p treatment with antibiotics. Dr. Bosch is following in infection disease consultation. -R pleural effusion, s/p R sided thoracentesis on 02/05/2019 -S/p open Reagan reversal and colorectal low pelvic anastomosis, segmental partial colectomy, and open incarcerated incisional and parastomal hernia repairs with mesh by Dr. Art on 01/21/2019. Continue [place] and Dilaudid as needed for pain and Zofran as needed for nausea. -Stage III sigmoid colon cancer, status post surgery and chemo in 2018. -Acute kidney injury on chronic kidney disease, monitor urine output BUN and creatinine. Dr. Stuart is following in nephrology consultation. -Acute on chronic diastolic CHF -Protein calorie malnutrition, improved. Patient required TPN which is currently stopped, patient tolerates a regular diet. -Obstructive sleep apnea -History of hypertension -History of left upper extremity DVT, status post bilateral upper extremity ultrasound on 02/05/2019: No sonographic evidence for bilateral upper extremity deep venous thrombosis. Superficial thrombus in the right cephalic vein in the forearm. Cephalic vein in the upper arm is patent. Superficial thrombus in the left cephalic vein in the antecubital fossa. Cephalic vein in the upper arm is patent. Further recommendations based on clinical course. Plan of care discussed with Dr. Fox.-Atrial fibrillation with rapid ventricular response. Dr. Alejandro is following in cardiology consultation. Continue Lovenox and Cardizem, telemetry monitoring. -Anastomotic leak and intra-abdominal abscess, S/p CT guided drainage of abscess in LLQ on 02/01/2019. Status post laparotomy, washout of the peritoneal cavity, placement of a diverting loop ileostomy in right lower quadrant for protection o f the anastomosis in the colorectal area on 02/11/[address] Art. Continue ceftriaxone per ID recommendation. -Sepsis secondary to intra-abdominal infection and pneumonia, resolved, s/p treatment with antibiotics. Dr. Bosch is following in infection disease consultation. -R pleural effusion, s/p R sided thoracentesis on 02/05/2019 -S/p open Reagan reversal and colorectal low pelvic anastomosis, segmental partial colectomy, and open incarcerated incisional and parastomal hernia repairs with mesh by Dr. Art on 01/21/2019. Continue [place] and Dilaudid as needed for pain and Zofran as needed for nausea. -Stage III sigmoid colon cancer, status post surgery and chemo in 2018. -Acute kidney injury on chronic kidney disease, monitor urine output BUN and creatinine. Dr. Stuart is following in nephrology consultation. -Acute on chronic diastolic CHF -Protein calorie malnutrition, improved. Patient required TPN which is currently stopped, patient tolerates a regular diet. -Obstructive sleep apnea -History of hypertension -History of left upper extremity DVT, status post bilateral upper extremity ultrasound on 02/05/2019: No sonographic evidence for bilateral upper extremity deep venous thrombosis. Superficial thrombus in the right cephalic vein in the forearm. Cephalic vein in the upper arm is patent. Superficial thrombus in the left cephalic vein in the antecubital fossa. Cephalic vein in the upper arm is patent. Further recommendations based on clinical course. Plan of care discussed with Dr. Fox. Result Diagram: 02/22/19 0620 02/22/19 0619 Results 24hrs Laboratory Tests Test 02/21/19 11:55 02/21/19 17:16 02/22/19 00:06 02/22/19 06:08 Bedside Glucose 149 137 115 119 Test 02/22/19 06:19 02/22/19 06:20 Sodium Level 135 Potassium Level 3.8 Chloride Level 90 L Carbon Dioxide Level 36 H Anion Gap 9 Blood Urea Nitrogen 43 H Creatinine 1.88 H Est Glomerular 37 L Filtrat Rate mL/min Glucose Level 107 Calcium Level 9.5 Phosphorus Level 4.9 Magnesium Level 2.3 White Blood Count 9.1 Red Blood Count 3.46 L Hemoglobin 10.1 L Hematocrit 30.8 L Mean Corpuscular 89.0 Volume Mean Corpuscular 29.2 Hemoglobin Mean Corpuscular 32.8 Hemoglobin Concent Red Cell 13.7 Distribution Width Platelet Count 416 H Mean Platelet Volume 11.3 H Immature 3.300 H Granulocytes % Neutrophils % 74.2 Lymphocytes % 10.4 L Monocytes % 10.1 Eosinophils % 1.7 Basophils % 0.3 Nucleated Red Blood 0.0 Cells % Immature 0.300 H Granulocytes # Neutrophils # 6.7 Lymphocytes # 0.9 Monocytes # 0.9 Eosinophils # 0.2 Basophils # 0.0 Nucleated Red Blood 0.0 Cells # Exam/Review of Systems Exam Vitals Vital Signs Date Temp Pulse Resp B/P (MAP) Pulse Ox O2 O2 Flow FiO2 Time Delivery Rate 02/22/19 97.7 80 20 117/71 94 Room Air 10:58 (86) 02/22/19 21 09:06 02/18/19 2.0 07:56 Intake and Output 02/21/19 02/21/19 02/22/19 1515:00 23:00 07:00 IntakeIntake Total 2400 ml 600 ml OutputOutput Total 0 ml 1800 ml 1200 ml BalanceBalance 0 ml 600 ml -600 ml Results Results 24hrs Laboratory Tests Test 02/21/19 11:55 02/21/19 17:16 02/22/19 00:06 02/22/19 06:08 Bedside Glucose 149 137 115 119 Test 02/22/19 06:19 02/22/19 06:20 Sodium Level 135 Potassium Level 3.8 Chloride Level 90 L Carbon Dioxide Level 36 H Anion Gap 9 Blood Urea Nitrogen 43 H Creatinine 1.88 H Est Glomerular 37 L Filtrat Rate mL/min Glucose Level 107 Calcium Level 9.5 Phosphorus Level 4.9 Magnesium Level 2.3 White Blood Count 9.1 Red Blood Count 3.46 L Hemoglobin 10.1 L Hematocrit 30.8 L Mean Corpuscular 89.0 Volume Mean Corpuscular 29.2 Hemoglobin Mean Corpuscular 32.8 Hemoglobin Concent Red Cell 13.7 Distribution Width Platelet Count 416 H Mean Platelet Volume 11.3 H Immature 3.300 H Granulocytes % Neutrophils % 74.2 Lymphocytes % 10.4 L Monocytes % 10.1 Eosinophils % 1.7 Basophils % 0.3 Nucleated Red Blood 0.0 Cells % Immature 0.300 H Granulocytes # Neutrophils # 6.7 Lymphocytes # 0.9 Monocytes # 0.9 Eosinophils # 0.2 Basophils # 0.0 Nucleated Red Blood 0.0 Cells # Medications Medication Current Medications Hydralazine HCl (Apresoline) 10 mg Q4H PRN IV >150/95 Last administered on 01/24/19 05:34; Admin Dose 10 MG; Start 01/21/19 at 14:00 Metoprolol Tartrate (Lopressor) 5 mg Q4H PRN IV HR>110 HOld SBP<100 Last administered on 02/18/19 18:53; Admin Dose 5 MG; Start 01/23/19 at 20:30 Levalbuterol (Xopenex Neb) 0.63 mg Q6H RESP THERAPY HHN Last administered on 02/22/19 09:06; Admin Dose 0.63 MG; Start 01/24/19 at 23:30 Acetaminophen (Tylenol Tab) 650 mg Q6H PRN PO MILD PAIN(1-3)OR ELEVATED TEMP Last administered on 02/10/19 21:54; Admin Dose 650 MG; Start 01/29/19 at 23:30 Al Hydrox/Mg Hydrox/Simethicone (Mag-Al Plus) 30 ml Q4H PRN PO GASTROINTESTINAL UPSET Last administered on 01/30/19at 18:39; Admin Dose 30 ML; Start 01/29/19 at 23:30 Atenolol (Tenormin) 50 mg BID PO Last administered on 02/22/19 08:59; Admin Do se 50 MG; Start 01/30/19 at 21:00 Morphine Sulfate (morphine) 2 mg Q2H PRN IV PAIN LEVEL 6-10; Start 02/11/19 at 16:30 Acetaminophen/ Hydrocodone Bitart ([place] (5/325)) 1 tab Q6H PRN PO PAIN LEVEL 6 -10; Start 02/11/19 at 16:30 Fluconazole 100 ml @ 100 mls/hr Q24H IVPB Last administered on 02/21/19at 12:50; Admin Dose 100 MLS/HR; Start 02/12/19 at 12:30 Nystatin (Nystatin Susp) 5 ml QID PO Last administered on 02/22/19 08:57; Admin Dose 5 ML; Start 02/12/19 at 13:00 Diagnostic Test (Pha) (Accu-Chek) 1 ea Q6 XX Last administered on 02/22/19 06:17; Admin Dose 1 EA; Start 02/15/19 at 12:00 Enoxaparin Sodium (Lovenox) 80 mg BID SC Last administered on 02/22/19 09:13; Admin Dose 80 MG; Start 02/16/19 at 21:00 Diltiazem HCl (Cardizem Cd) 120 mg BID PO Last administered on 02/22/19 08:58; Admin Dose 120 MG; Start 02/18/19 at 21:00 Sodium Chloride 1,000 ml @ 100 mls/hr Q10H IV Last administered on 02/22/19 00:07; Admin Dose 75 MLS/HR; Start 02/21/19 at 09:00 Loperamide HCl (Imodium Cap) 2 mg QID PO Last administered on 02/22/19 08:57; Admin Dose 2 MG; Start 02/21/19 at 13:00 Ceftriaxone Sodium 50 ml @ 100 mls/hr Q24H IVPB Last administered on 02/21/19 16:59; Admin Dose 100 MLS/HR; Start 02/21/19 at 16:00 LUIS HARDWICK February 22, 2019 11:03
--- NOTE | 2019-02-22 11:54 | PN ---
Date/Time of Note Date/Time of Note DATE: 02/22/19 TIME: 11:51 Assessment/Plan VTE Prophylaxis Risk score (from Ns)>0 risk: 12 SCD applied (from Ns): Yes Pharmacological prophylaxis: other Lines/Catheters IV C[facility]ter Type [facility]from [facility] [place] Lock Urinary Cath still in place: No Assessment/Plan Assessment/Plan s/p loop ileostomy for diversion after anastomotic leak will continue to monitor as recent increase in cr if patient is unable to keep up with fluid replacement may need TPN for a short time infection resolving and will continue to follow Result Diagram: 02/22/1920 02/22/19618 Results 24hrs Laboratory Tests Test 02/21/19 11:55 02/21/19 17:16 02/22/19 00:06 02/22/19 06:08 Bedside Glucose 149 137 115 119 Test 02/22/19 06:19 02/22/19 06:20 Sodium Level 135 Potassium Level 3.8 Chloride Level 90 L Carbon Dioxide Level 36 H Anion Gap 9 Blood Urea Nitrogen 43 H Creatinine 1.88 H Est Glomerular 37 L Filtrat Rate mL/min Glucose Level 107 Calcium Level 9.5 Phosphorus Level 4.9 Magnesium Level 2.3 White Blood Count 9.1 Red Blood Count 3.46 L Hemoglobin 10.1 L Hematocrit 30.8 L Mean Corpuscular 89.0 Volume Mean Corpuscular 29.2 Hemoglobin Mean Corpuscular 32.8 Hemoglobin Concent Red Cell 13.7 Distribution Width Platelet Count 416 H Mean Platelet Volume 11.3 H Immature 3.300 H Granulocytes % Neutrophils % 74.2 Lymphocytes % 10.4 L Monocytes % 10.1 Eosinophils % 1.7 Basophils % 0.3 Nucleated Red Blood 0.0 Cells % Immature 0.300 H Granulocytes # Neutrophils # 6.7 Lymphocytes # 0.9 Monocytes # 0.9 Eosinophils # 0.2 Basophils # 0.0 Nucleated Red Blood 0.0 Cells # Subjective 24 Hr Interval Summary Free Text/Dictation slight increase in CR is acute on chronic renal insufficiency which may be exacerated by his diverting loop ileostomy imodium being increased to delay intestional transit and allow better water absorption if patient is having difficulty with keeping up with fluid replacements may need to continue TPN for a few weeks regards to infection patient doing well and did not have problems off abx or any leukocytosis Exam/Review of Systems Exam Vitals Vital Signs Date Temp Pulse Resp B/P (MAP) Pulse Ox O2 O2 Flow FiO2 Time Delivery Rate 02/22/19 97.7 80 20 117/71 94 Room Air 10:58 (86) 02/22/19 21 09:06 02/18/19 2.0 07:56 Intake and Output 02/21/19 02/21/19 02/22/19 1515:00 23:00 07:00 IntakeIntake Total 2400 ml 600 ml OutputOutput Total 0 ml 1800 ml 1200 ml BalanceBalance 0 ml 600 ml -600 ml Exam c/d/i wound healing ileostomy viable with output Results Results 24hrs Laboratory Tests Test 02/21/19 11:55 02/21/19 17:16 02/22/19 00:06 02/22/19 06:08 Bedside Glucose 149 137 115 119 Test 02/22/19 06:19 02/22/19 06:20 Sodium Level 135 Potassium Level 3.8 Chloride Level 90 L Carbon Dioxide Level 36 H Anion Gap 9 Blood Urea Nitrogen 43 H Creatinine 1.88 H Est Glomerular 37 L Filtrat Rate mL/min Glucose Level 107 Calcium Level 9.5 Phosphorus Level 4.9 Magnesium Level 2.3 White Blood Count 9.1 Red Blood Count 3.46 L Hemoglobin 10.1 L Hematocrit 30.8 L Mean Corpuscular 89.0 Volume Mean Corpuscular 29.2 Hemoglobin Mean Corpuscular 32.8 Hemoglobin Concent Red Cell 13.7 Distribution Width Platelet Count 416 H Mean Platelet Volume 11.3 H Immature 3.300 H Granulocytes % Neutrophils % 74.2 Lymphocytes % 10.4 L Monocytes % 10.1 Eosinophils % 1.7 Basophils % 0.3 Nucleated Red Blood 0.0 Cells % Immature 0.300 H Granulocytes # Neutrophils # 6.7 Lymphocytes # 0.9 Monocytes # 0.9 Eosinophils # 0.2 Basophils # 0.0 Nucleated Red Blood 0.0 Cells # Medications Medication Current Medications Hydralazine HCl (Apresoline) 10 mg Q4H PRN IV >150/95 Last administered on 01/24/19at 05:34; Admin Dose 10 MG; Start 01/21/19 at 14:00 Metoprolol Tartrate (Lopressor) 5 mg Q4H PRN IV HR>110 HOld SBP<100 Last administered on 02/18/19at 18:53; Admin Dose 5 MG; Start 01/23/19 at 20:30 Levalbuterol (Xopenex Neb) 0.63 mg Q6H RESP THERAPY HHN Last administered on 02/22/19 09:06; Admin Dose 0.63 MG; Start 01/24/19 at 23:30 Acetaminophen (Tylenol Tab) 650 mg Q6H PRN PO MILD PAIN(1-3)OR ELEVATED TEMP [place] administered on 02/10/19 21:54; Admin Dose 650 MG; Start 01/29/19 at 23:30 Al Hydrox/Mg Hydrox/Simethicone (Mag-Al Plus) 30 ml Q4H PRN PO GASTROINTESTINAL UPSET Last administered on 01/30/19 18:39; Admin Dose 30 ML; Start 01/29/19 at 23:30 Atenolol (Tenormin) 50 mg BID PO Last administered on 02/22/19 08:59; Admin Dose 50 MG; Start 01/30/19 at 21:00 Morphine Sulfate (morphine) 2 mg Q2H PRN IV PAIN LEVEL 6-10; Start 02/11/19 at 16:30 Acetaminophen/ Hydrocodone Bitart ([place] (5/325)) 1 tab Q6H PRN PO PAIN LEVEL 6-10; Start 02/11/19 at 16:30 Fluconazole 100 ml @ 100 mls/hr Q24H IVPB Last administered on 02/21/19 12:50; Admin Dose 100 MLS/HR; Start 02/12/19 at 12:30 Nystatin (Nystatin Susp) 5 ml QID PO Last administered on 02/22/19 08:57; Admin Dose 5 ML; Start 02/12/19 at 13:00 Diagnostic Test (Pha) (Accu-Chek) 1 ea Q6 XX Last administered on 02/22/19 06:17; Admin Dose 1 EA; Start 02/15/19 at 12:00 Enoxaparin Sodium (Lovenox) 80 mg BID SC Last administered on 02/22/19 09:13; Admin Dose 80 MG; Start 02/16/19 at 21:00 Diltiazem HCl (Cardizem Cd) 120 mg BID PO Last administered on 02/22/19 08:58; Admin Dose 120 MG; Start 02/18/19 at 21:00 Sodium Chloride 1,000 ml @ 100 mls/hr Q10H IV Last administered on 02/22/19at 00:07; Admin Dose 75 MLS/HR; Start 02/21/19 at 09:00 Loperamide HCl (Imodium Cap) 2 mg QID PO Last administered on 02/22/19at 08:57; Admin Dose 2 MG; Start 02/21/19 at 13:00 Ceftriaxone Sodium 50 ml @ 100 mls/hr Q24H IVPB Last administered on 02/21/19at 16:59; Admin Dose 100 MLS/HR; Start 02/21/19 at 16:00 Ann FERNANDEZ February 22, 2019 11:54
[2019-02-22] MEDS: FLUCONAZOLE 200 MG (PMX) 100 ML IVPB SCH (12:32)
--- NOTE | 2019-02-22 13:41 | CONS ---
Assessment/Plan Assessment/Plan Hospital Course (Demo Recall) Case will be coordinated with BRENDAN REED via [employer] texting and phone call. I reviewed the emr as well and will be directing care shortly. Consultation Date/Type/Reason Admit Date/Time Jan 21, 2019 at 06:18 Initial Consult Date 01/30/19 Type of Consult ID Requesting Provider: ODELL PACHECO Date/Time of Note DATE: 02/22/19 TIME: 13:41 Exam/Review of Systems Exam Vitals Vital Signs Date Temp Pulse Resp B/P (MAP) Pulse Ox O2 O2 Flow FiO2 Time Delivery Rate 02/22/19 78 13:21 02/22/19 97.7 20 117/71 94 Room Air 10:58 (86) 02/22/19 21 09:06 02/18/19 2.0 07:56 Intake and Output 02/21/19 02/21/19 02/22/19 1515:00 23:00 07:00 IntakeIntake Total 2400 ml 600 ml OutputOutput Total 0 ml 1800 ml 1200 ml BalanceBalance 0 ml 600 ml -600 ml Results Result Diagram: 02/22/19 0620 02/22/19 0619 Results 24hrs Laboratory Tests Test 02/21/19 17:16 02/22/19 00:06 02/22/19 06:08 02/22/19 06:19 Bedside Glucose 137 115 119 Sodium Level 135 Potassium Level 3.8 Chloride Level 90 L Carbon Dioxide Level 36 H Anion Gap 9 Blood Urea Nitrogen 43 H Creatinine 1.88 H Est Glomerular 37 L Filtrat Rate mL/min Glucose Level 107 Calcium Level 9.5 Phosphorus Level 4.9 Magnesium Level 2.3 Test 02/22/19 06:20 02/22/19 12:30 White Blood Count 9.1 Red Blood Count 3.46 L Hemoglobin 10.1 L Hematocrit 30.8 L Mean Corpuscular 89.0 Volume Mean Corpuscular 29.2 Hemoglobin Mean Corpuscular 32.8 Hemoglobin Concent Red Cell 13.7 Distribution Width Platelet Count 416 H Mean Platelet Volume 11.3 H Immature 3.300 H Granulocytes % Neutrophils % 74.2 Lymphocytes % 10.4 L Monocytes % 10.1 Eosinophils % 1.7 Basophils % 0.3 Nucleated Red Blood 0.0 Cells % Immature 0.300 H Granulocytes # Neutrophils # 6.7 Lymphocytes # 0.9 Monocytes # 0.9 Eosinophils # 0.2 Basophils # 0.0 Nucleated Red Blood 0.0 Cells # Bedside Glucose 194 Medications Medication Current Medications Hydralazine HCl (Apresoline) 10 mg Q4H PRN IV >150/95 Last administered on 01/24/19 05:34; Admin Dose 10 MG; Start 01/21/19 at 14:00 Metoprolol Tartrate (Lopressor) 5 mg Q4H PRN IV HR>110 HOld SBP<100 Last administered on 02/18/19 18:53; Admin Dose 5 MG; Start 01/23/19 at 20:30 Levalbuterol (Xopenex Neb) 0.63 mg Q6H RESP THERAPY HHN Last administered on 02/22/19 09:06; Admin Dose 0.63 MG; Start 01/24/19 at 23:30 Acetaminophen (Tylenol Tab) 650 mg Q6H PRN PO MILD PAIN(1-3)OR ELEVATED TEMP Last administered on 02/10/19 21:54; Admin Dose 650 MG; Start 01/29/19 at 23:30 Al Hydrox/Mg Hydrox/Simethicone (Mag-Al Plus) 30 ml Q4H PRN PO GASTROINTESTINAL UPSET Last administered on 01/30/19 18:39; Admin Dose 30 ML; Start 01/29/19 at 23:30 Atenolol (Tenormin) 50 mg BID PO Last administered on 02/22/19 08:59; Admin Dose 50 MG; Start 01/30/19 at 21:00 Morphine Sulfate (morphine) 2 mg Q2H PRN IV PAIN LEVEL 6-10; Start 02/11/19 at 16:30 Acetaminophen/ Hydrocodone Bitart ([place] (5/325)) 1 tab Q6H PRN PO PAIN LEVEL 6-10; Start 02/11/19 at 16:30 Fluconazole 100 ml @ 100 mls/hr Q24H IVPB Last administered on 02/22/19 12 :32; Admin Dose 100 MLS/HR; Start 02/12/19 at 12:30 Nystatin (Nystatin Susp) 5 ml QID PO Last administered on 02/22/19 12:32; Admin Dose 5 ML; Start 02/12/19 at 13:00 Diagnostic Test (Pha) (Accu-Chek) 1 ea Q6 XX Last administered on 02/22/19 12:34; Admin Dose 1 EA; Start 02/15/19 at 12:00 Enoxaparin Sodium (Lovenox) 80 mg BID SC Last administered on 02/22/19 09:13; Admin Dose 80 MG; Start 02/16/19 at 21:00 Diltiazem HCl (Cardizem Cd) 120 mg BID PO Last administered on 02/22/19 08:58; Admin Dose 120 MG; Start 02/18/19 at 21:00 Sodium Chloride 1,000 ml @ 100 mls/hr Q10H IV Last administered on 02/22/19 12:56; Admin Dose 100 MLS/HR; Start 02/21/19 at 09:00 Ceftriaxone Sodium 50 ml @ 100 mls/hr Q24H IVPB Last administered on 02/21/19 16:59; Admin Dose 100 MLS/HR; Start 02/21/19 at 16:00 Loperamide HCl (Imodium Cap) 4 mg QID PO Last administered on 02/22/19 12:33; Admin Dose 4 MG; Start 02/22/19 at 13:00 KURT SEO MD February 22, 2019 13:41
[2019-02-22] MEDS: ONDANSETRON 4 MG INJ IV PRN (16:07)
[2019-02-22] MEDS: CEFTRIAXONE 1 GM/50 ML (PMX) 50 ML IVPB SCH (16:07)
--- NOTE | 2019-02-22 16:42 | CONS ---
Assessment/Plan Assessment/Plan Hospital Course (Demo Recall) # sepsis, respiratory - sepsis due to complicated intra-abdominal infection and pneumonia, resolved - recurrent pleural effusion, follow up chest US on 02/17/2019 showed small R sided effusion - congested cough probably due to pleural effusion and fluid overload, influenza AB negative on 02/17/2019. Improving and stable on room air - R pleural effusion, exudative process, parapneumonic effusion LDH 1601 protein 3.2, no e/o malignancy on cytology - s/p R sided thoracentesis on 02/05/2019 - VIJAY # GI, onc - s/p ex lap, washout of abdominal abscess, CLEVE, diverting loop ileostomy on 02/11/2019 - s/p open Reagan reversal and colorectal low pelvic anastomosis, segmental partial colectomy, and open incarcerated incisional and parastomal hernia repairs with mesh by Dr. Art on 01/21/2019 - thrush, resolving - follow up CT on 02/04/2019 did not identify definite point of leak--> anastomotic leak was identified on gastograffin - s/p CT guided drainage of abscess in LLQ on 02/01/2019 - abdominal wound culture 01/30/19 and abscess culture 01/31/19 grew pseudomonas, joseline albicans and glabrata - s/p colostomy reversal - stage III sigmoid colon cancer, status post prior colectomy/colostomy and chem o in 2017 # renal, cardiovascular - acute kidney injury on chronic kidney disease, resolved - acute on chronic diastolic CHF, improved - atrial fibrillation with RVR, converted to SR - Hx hypertension - Hx left upper extremity DVT - superficial thrombus in R cephalic vein in the forearm and in L cephalic vein in the antecubital fossa as visualized on NOY 02/05/2019 # other conditions - R conjunctivitis, resolved after neomycin eye drop x 7 days recommendations: - Continue Ceftriaxone 1 gm IV daily (02/21/19 - ) until repeat imaging shows resolution of intra-abdominal fluid collection. Pt previously took meropenem (01/30/2019-02/03/2019), metronidazole (02/04/2019-02/16/2019) and cefepime (02/04/2019-02/18/2019) - Continue fluconazole (01/30/2019-) and nystatin (02/12/2019-) until thrush resolves Above plan discussed and coordinated with via [employer]. Consultation Date/Type/Reason Admit Date/Time Jan 21, 2019 at 06:18 Initial Consult Date 01/30/19 Requesting Provider: ODELL PACHECO Date/Time of Note DATE: 02/22/19 TIME: 16:42 24 HR Interval Summary Free Text/Dictation P has remained afebrile and asymptomatic. No acute changes in condition. Detailed Summary Eyes: no complaints ENT: no complaints Respiratory: no complaints Cardiovascular: no complaints Gastrointestinal: decreased appetite Genitourinary: no complaints Musculoskeletal: no complaints Skin: no complaints Neurologic: no complaints Endocrine: no complaints Psychological: no complaints Exam/Review of Systems Exam Vitals Vital Signs Date Temp Pulse Resp B/P (MAP) Pulse Ox O2 O2 Flow FiO2 Time Delivery Rate 02/22/19 73 16:23 02/22/19 99.2 20 119/70 96 Room Air 14:56 (86) 02/22/19 21 14:37 02/18/19 2.0 07:56 Intake and Output 02/21/19 02/21/19 02/22/19 1515:00 23:00 07:00 IntakeIntake Total 2400 ml 600 ml OutputOutput Total 0 ml 1800 ml 1200 ml BalanceBalance 0 ml 600 ml -600 ml Exam Constitutional: alert, oriented, well developed Psych: no complaints, nl mood/affect; No confusion Head: normocephalic, atraumatic Eyes: nl conjunctiva, PERRL; No icteric ENMT: nl external ears & nose, mucosa pink and moist, other (oral thrush ) Neck: supple Respiratory: clear to auscultation, normal air movement, respirations (WNL); No congested cough, No crackles/rales, No diminished breath sounds, No intercostal retraction, No labored breathing, No wheezing Cardiovascular: regular rate and rhythm, nl pulses; No bruits Gastrointestinal: soft, bowel sounds (normoactive), other (midabdominal incision site covered with dressing c/d/i. ostomy with clear brown liquid small amount, LLQ surgical drain bag empty ); No distended, No rebound or guarding Musculoskeletal: nl extremities to inspection, range of motion Extremities: normal pulses; No clubbing, No edema Neurological: nl mental status, nl speech, nl strength; No confused, No numbness Skin: ecchymosis, other (midabdominal wound) Results Result Diagram: 02/22/19 0620 02/22/19 0619 Results 24hrs Laboratory Tests Test 02/21/19 17:16 02/22/19 00:06 02/22/19 06:08 02/22/19 06:19 Bedside Glucose 137 115 119 Sodium Level 135 Potassium Level 3.8 Chloride Level 90 L Carbon Dioxide Level 36 H Anion Gap 9 Blood Urea Nitrogen 43 H Creatinine 1.88 H Est Glomerular 37 L Filtrat Rate mL/min Glucose Level 107 Calcium Level 9.5 Phosphorus Level 4.9 Magnesium Level 2.3 Test 02/22/19 06:20 02/22/19 12:30 White Blood Count 9.1 Red Blood Count 3.46 L Hemoglobin 10.1 L Hematocrit 30.8 L Mean Corpuscular 89.0 Volume Mean Corpuscular 29.2 Hemoglobin Mean Corpuscular 32.8 Hemoglobin Concent Red Cell 13.7 Distribution Width Platelet Count 416 H Mean Platelet Volume 11.3 H Immature 3.300 H Granulocytes % Neutrophils % 74.2 Lymphocytes % 10.4 L Monocytes % 10.1 Eosinophils % 1.7 Basophils % 0.3 Nucleated Red Blood 0.0 Cells % Immature 0.300 H Granulocytes # Neutrophils # 6.7 Lymphocytes # 0.9 Monocytes # 0.9 Eosinophils # 0.2 Basophils # 0.0 Nucleated Red Blood 0.0 Cells # Bedside Glucose 194 Medications Medication Current Medications Metoprolol Tartrate (Lopressor) 5 mg Q4H PRN IV HR>110 HOld SBP<100 Last administered on 02/18/19 18:53; Admin Dose 5 MG; Start 01/23/19 at 20:30 Levalbuterol (Xopenex Neb) 0.63 mg Q6H RESP THERAPY HHN Last administered on 02/22/19at 14:36; Admin Dose 0.63 MG; Start 01/24/19 at 23:30 Acetaminophen (Tylenol Tab) 650 mg Q6H PRN PO MILD PAIN(1-3)OR ELEVATED TEMP Last administered on 02/10/19at 21:54; Admin Dose 650 MG; Start 01/29/19 at 23:30 Al Hydrox/Mg Hydrox/Simethicone (Mag-Al Plus) 30 ml Q4H PRN PO GASTROINTESTINAL UPSET Last administered on 01/30/19 18:39; Admin Dose 30 ML; Start 01/29/19 at 23:30 Atenolol (Tenormin) 50 mg BID PO Last administered on 02/22/19 08:59; Admin Dose 50 MG; Start 01/30/19 at 21:00 Morphine Sulfate (morphine) 2 mg Q2H PRN IV PAIN LEVEL 6-10; Start 02/11/19 at 16:30 Acetaminophen/ Hydrocodone Bitart ([place] (5/325)) 1 tab Q6H PRN PO PAIN LEVEL 6-10; Start 02/11/19 at 16:30 Fluconazole 100 ml @ 100 mls/hr Q24H IVPB Last administered on 02/22/19 12:32; Admin Dose 100 MLS/HR; Start 02/12/19 at 12:30 Nystatin (Nystatin Susp) 5 ml QID PO Last administered on 02/22/19 12:32; Admin Dose 5 ML; Start 02/12/19 at 13:00 Diagnostic Test (Pha) (Accu-Chek) 1 ea Q6 XX Last administered on 02/22/19 12:34; Admin Dose 1 EA; Start 02/15/19 at 12:00 Enoxaparin Sodium (Lovenox) 80 mg BID SC Last administered on 02/22/19 09:13; Admin Dose 80 MG; Start 02/16/19 at 21:00 Diltiazem HCl (Cardizem Cd) 120 mg BID PO Last administered on 02/22/19 08:58; Admin Dose 120 MG; Start 02/18/19 at 21:00 Sodium Chloride 1,000 ml @ 100 mls/hr Q10H IV Last administered on 02/22/19 12:56; Admin Dose 100 MLS/HR; Start 02/21/19 at 09:00 Ceftriaxone Sodium 50 ml @ 100 mls/hr Q24H IVPB Last administered on 02/22/19 16:07; Admin Dose 100 MLS/HR; Start 02/21/19 at 16:00 Loperamide HCl (Imodium Cap) 4 mg QID PO Last administered on 02/22/19 12:33; Admin Dose 4 MG; Start 02/22/19 at 13:00 Ondansetron HCl (Zofran Inj) 4 mg Q6H PRN IV NAUSEA AND/OR VOMITING Last administered on 02/22/19at 16:07; Admin Dose 4 MG; Start 02/22/19 at 16:00 CHRISTOPH REED NP February 22, 2019 16:42
[2019-02-23] VITALS (12 sets, daily range): BP systolic 106–127; BP diastolic 63–69; PULSE 66–96; RESP 16–18
[2019-02-23] MEDS: SOD CHLORIDE 0.9% 1,000 ML IV SCH ×2 (00:11→15:30)
[2019-02-23] MEDS: ACCU-CHEK XX SCH ×4 (00:17→17:43)
[2019-02-23] MEDS: LEVALBUTEROL (NEB) 0.63 MG/3 ML AMP HHN SCH ×4 (02:31→21:07)
[2019-02-23] MEDS: DILTIAZEM (CD) 120 MG CAP PO SCH ×2 (09:00→22:12)
[2019-02-23] MEDS: ATENOLOL 50 MG TAB PO SCH ×2 (09:00→22:12)
[2019-02-23] MEDS: LOPERAMIDE 2 MG CAP PO SCH ×4 (09:40→22:11)
[2019-02-23] MEDS: NYSTATIN SUSP 5 ML CUP PO SCH ×4 (09:40→22:11)
[2019-02-23] MEDS: ENOXAPARIN 80 MG/0.8 ML SYG SC SCH ×2 (09:54→22:25)
--- NOTE | 2019-02-23 11:48 | CONS ---
Assessment/Plan Assessment/Plan Hospital Course (Demo Recall) 1. Nonoliguric acute kidney injury with previous baseline creatinine of 0.7 mg/dL. Etiology of acute kidney injury is secondary to volume depletion secondary to gastrointestinal losses. The patient was initiated on IV fluids with stabilization of renal function. cont ivf 2. Hypernatremia secondary to acute kidney injury, improved. Continue to monitor. 3. Anemia. Continue to monitor hemoglobin and hematocrit levels. 4. Metabolic alkalosis. Etiology is secondary to acute kidney injury, volume depletion. Continue IV hydration and monitor. 5. Anemia. Monitor hemoglobin and hematocrit levels. 6. Mineral bone disorder, monitor calcium and phosphorus levels. 7. Anastomotic leak status post laparotomy with peritoneal washout and diverting ileostomy. Continue to monitor. 8. Sepsis secondary to intraabdominal infection, pneumonia. The patient is completing antibiotic course. 9. History of colon cancer, status post surgery and chemotherapy. 10. History of heart failure. Continue to monitor closely on IV hydration. 11. History of sleep apnea. 12. History of hypertension. 13. Left lower extremity thrombosis. Continue medical management. 14. Atrial fibrillation. Continue current treatment plan. Consultation Date/Type/Reason Admit Date/Time Jan 21, 2019 at 06:18 Initial Consult Date 01/30/19 Requesting Provider: ODELL PACHECO Date/Time of Note DATE: 02/23/19 TIME: 11:47 24 HR Interval Summary Free Text/Dictation afebrile. no n/v. adequate urine output d/w rn gen nad cv rrr pulm ctab abd soft, nd, nt +bs ext: no edema Exam/Review of Systems Exam Vitals Vital Signs Date Temp Pulse Resp B/P (MAP) Pulse Ox O2 O2 Flow FiO2 Time Delivery Rate 02/23/19 98.4 77 16 106/65 94 11:30 (79) 02/23/19 21 08:40 02/23/19 Room Air 04:04 Intake and Output 02/22/19 02/22/19 02/23/19 1515:00 23:00 07:00 IntakeIntake Total 960 ml 500 ml OutputOutput Total 0 ml 2850 ml 1300 ml BalanceBalance 0 ml -1890 ml -800 ml Results Result Diagram: 02/23/19 0554 02/23/19 0554 Results 24hrs Laboratory Tests Test 02/22/19 12:30 02/22/19 17:47 02/23/19 00:10 02/23/19 05:54 Bedside Glucose 194 147 118 White Blood Count 10.4 Red Blood Count 3.21 L Hemoglobin 9.3 L Hematocrit 29.0 L Mean Corpuscular 90.3 Volume Mean Corpuscular 29.0 Hemoglobin Mean Corpuscular 32.1 Hemoglobin Concent Red Cell 13.7 Distribution Width Platelet Count 388 Mean Platelet Volume 11.1 H Immature 2.000 H Granulocytes % Neutrophils % 79.3 H Lymphocytes % 7.4 L Monocytes % 9.3 Eosinophils % 1.6 Basophils % 0.4 Nucleated Red Blood 0.0 Cells % Immature 0.210 H Granulocytes # Neutrophils # 8.2 H Lymphocytes # 0.8 Monocytes # 1.0 H Eosinophils # 0.2 Basophils # 0.0 Nucleated Red Blood 0.0 Cells # Sodium Level 135 Potassium Level 4.0 Chloride Level 94 L Carbon Dioxide Level 34 H Anion Gap 7 Blood Urea Nitrogen 41 H Creatinine 1.76 H Est Glomerular 40 L Filtrat Rate mL/min Glucose Level 109 Calcium Level 9.0 Phosphorus Level 4.2 Magnesium Level 2.2 Test 02/23/19 06:25 Bedside Glucose 113 Medications Medication Current Medications Metoprolol Tartrate (Lopressor) 5 mg Q4H PRN IV HR>110 HOld SBP<100 Last administered on 02/18/19 18:53; Admin Dose 5 MG; Start 01/23/19 at 20:30 Levalbuterol (Xopenex Neb) 0.63 mg Q6H RESP THERAPY HHN Last administered on 02/23/19 08:38; Admin Dose 0.63 MG; Start 01/24/19 at 23:30 Acetaminophen (Tylenol Tab) 650 mg Q6H PRN PO MILD PAIN(1-3)OR ELEVATED TEMP Last administered on 02/10/19 21:54; Admin Dose 650 MG; Start 01/29/19 at 23:30 Al Hydrox/Mg Hydrox/Simethicone (Mag-Al Plus) 30 ml Q4H PRN PO GASTROINTESTINAL UPSET Last administered on 01/30/19 18:39; Admin Dose 30 ML; Start 01/29/19 at 23:30 Atenolol (Tenormin) 50 mg BID PO Last administered on 02/22/19 21:32; Admin Dose 50 MG; Start 01/30/19 at 21:00 Morphine Sulfate (morphine) 2 mg Q2H PRN IV PAIN LEVEL 6-10; Start 02/11/19 at 16:30 Acetaminophen/ Hydrocodone Bitart ([place] (5/325)) 1 tab Q6H PRN PO PAIN LEVEL 6-10; Start 02/11/19 at 16:30 Fluconazole 100 ml @ 100 mls/hr Q24H IVPB Last administered on 02/22/19 12:32; Admin Dose 100 MLS/HR; Start 02/12/19 at 12:30 Nystatin (Nystatin Susp) 5 ml QID PO Last administered on 02/23/19 09:40; Admin Dose 5 ML; Start 02/12/19 at 13:00 Diagnostic Test (Pha) (Accu-Chek) 1 ea Q6 XX Last administered on 02/23/19 06:42; Admin Dose 1 EA; Start 02/15/19 at 12:00 Enoxaparin Sodium (Lovenox) 80 mg BID SC Last administered on 02/23/19 09:54; Admin Dose 80 MG; Start 02/16/19 at 21:00 Diltiazem HCl (Cardizem Cd) 120 mg BID PO Last administered on 02/22/19 21:32; Admin Dose 120 MG; Start 02/18/19 at 21:00 Sodium Chloride 1,000 ml @ 100 mls/hr Q10H IV Last administered on 02/23/19 00:11; Admin Dose 100 MLS/HR; Start 02/21/19 at 09:00 Ceftriaxone Sodium 50 ml @ 100 mls/hr Q24H IVPB Last administered on 02/22/19 16:07; Admin Dose 100 MLS/HR; Start 02/21/19 at 16:00 Loperamide HCl (Imodium Cap) 4 mg QID PO Last administered on 02/23/19 09:40; Admin Dose 4 MG; Start 02/22/19 at 13:00 Ondansetron HCl (Zofran Inj) 4 mg Q6H PRN IV NAUSEA AND/OR VOMITING Last administered on 02/22/19 16:07; Admin Dose 4 MG; Start 02/22/19 at 16:00 Miscellaneous Information (*Order Clarification Bulletin) MEDICATION REQUIRES CLARIFICATI... Q8H XX ; Start 02/22/19 at 21:00 SANJU JOE MD February 23, 2019 11:48
[2019-02-23] MEDS: FLUCONAZOLE 200 MG (PMX) 100 ML IVPB SCH (12:23)
--- NOTE | 2019-02-23 14:04 | CONS ---
Consult Date/Type/Reason Admit Date/Time Jan 21, 2019 at 06:18 Initial Consult Date Requesting Provider: ODELL PACHECO Date/Time of Note DATE: 02/23/19 TIME: 14:02 Subjective NO acute events - pt stable overall - in good fluid status - better today - denies CP now ROS: No fever, no chills, no nausea, no vomiting, no diarrhea/constipation No recent weight changes No chest pain, no PND, no orthopnea + abd discomfort No dizziness, blurred vision No thirst, no heat or cold intolerance Objective Vitals Vital Signs Date Temp Pulse Resp B/P (MAP) Pulse Ox O2 O2 Flow FiO2 Time Delivery Rate 02/23/19 76 95 21 13:42 02/23/19 98.4 16 106/65 11:30 (79) 02/23/19 Room Air 04:04 Intake and Output 02/22/19 02/22/19 02/23/19 1414:59 22:59 06:59 IntakeIntake Total 960 ml 500 ml OutputOutput Total 0 ml 2850 ml 1300 ml BalanceBalance 0 ml -1890 ml -800 ml Exam General: WN/WD/NAD, AOx 3 HEENT: Unicetric/atraumatic/EOMI (follows commands) NECK: JVD elevated, no thyromegaly Lymph: no lymphadenopathy HEART: regular with no S3, II/ systolic murmur at apex, PMI L LUNGS: Coarse sounds ABD: soft, NT, ND, +BS - drains : Intact Neuro: non focal SKIN: chronic changes EXT: trace edema Results/Medications Result Diagram: 02/23/19 0554 02/23/19 0554 Results 24 hrs Laboratory Tests Test 02/22/19 17:47 02/23/19 00:10 02/23/19 05:54 02/23/19 06:25 Bedside Glucose 147 118 113 White Blood Count 10.4 Red Blood Count 3.21 L Hemoglobin 9.3 L Hematocrit 29.0 L Mean Corpuscular 90.3 Volume Mean Corpuscular 29.0 Hemoglobin Mean Corpuscular 32.1 Hemoglobin Concent Red Cell 13.7 Distribution Width Platelet Count 388 Mean Platelet Volume 11.1 H Immature 2.000 H Granulocytes % Neutrophils % 79.3 H Lymphocytes % 7.4 L Monocytes % 9.3 Eosinophils % 1.6 Basophils % 0.4 Nucleated Red Blood 0.0 Cells % Immature 0.210 H Granulocytes # Neutrophils # 8.2 H Lymphocytes # 0.8 Monocytes # 1.0 H Eosinophils # 0.2 Basophils # 0.0 Nucleated Red Blood 0.0 Cells # Sodium Level 135 Potassium Level 4.0 Chloride Level 94 L Carbon Dioxide Level 34 H Anion Gap 7 Blood Urea Nitrogen 41 H Creatinine 1.76 H Est Glomerular 40 L Filtrat Rate mL/min Glucose Level 109 Calcium Level 9.0 Phosphorus Level 4.2 Magnesium Level 2.2 Test 02/23/19 12:18 Bedside Glucose 130 Home Meds Active Scripts Carvedilol* (Carvedilol*) 25 Mg Tablet, 25 MG PO BID for 30 Days, TAB Prov:ODELL PACHECO 01/15/18 Furosemide* (Furosemide*) 20 Mg Tablet, 20 MG PO DAILY for 30 Days, TAB Prov:ODELL PACHECO 01/15/18 Reported Medications Apixaban* (Eliquis*) 5 Mg Tablet, 5 MG PO BID, TAB 11/02/18 Losartan Potassium* (Losartan Potassium*) 100 Mg Tablet, 100 MG PO DAILY, TAB 11/02/18 Nifedipine* (Nifedipine ER*) 60 Mg Tablet.sa, 60 MG PO BID, TAB.SA 11/02/18 Atorvastatin Calcium* (Atorvastatin Calcium*) 20 Mg Tablet, 20 MG PO QHS, #30 TAB 01/07/18 Medications Current Medications Metoprolol Tartrate (Lopressor) 5 mg Q4H PRN IV HR>110 HOld SBP<100 Last administered on 02/18/19 18:53; Admin Dose 5 MG; Start 01/23/19 at 20:30 Levalbuterol (Xopenex Neb) 0.63 mg Q6H RESP THERAPY HHN Last administered on 02/23/19at 13:41; Admin Dose 0.63 MG; Start 01/24/19 at 23:30 Acetaminophen (Tylenol Tab) 650 mg Q6H PRN PO MILD PAIN(1-3)OR ELEVATED TEMP Last administered on 02/10/19at 21:54; Admin Dose 650 MG; Start 01/29/19 at 23:30 Al Hydrox/Mg Hydrox/Simethicone (Mag-Al Plus) 30 ml Q4H PRN PO GASTROINTESTINAL UPSET Last administered on 01/30/19 18:39; Admin Dose 30 ML; Start 01/29/19 at 23:30 Atenolol (Tenormin) 50 mg BID PO Last administered on 02/22/19 21:32; Admin Dose 50 MG; Start 01/30/19 at 21:00 Morphine Sulfate (morphine) 2 mg Q2H PRN IV PAIN LEVEL 6-10; Start 02/11/19 at 16:30 Acetaminophen/ Hydrocodone Bitart ([place] (5/325)) 1 tab Q6H PRN PO PAIN LEVEL 6-10; Start 02/11/19 at 16:30 Fluconazole 100 ml @ 100 mls/hr Q24H IVPB Last administered on 02/23/19 12:23; Admin Dose 100 MLS/HR; Start 02/12/19 at 12:30 Nystatin (Nystatin Susp) 5 ml QID PO Last administered on 02/23/19 12:18; Admin Dose 5 ML; Start 02/12/19 at 13:00 Diagnostic Test (Pha) (Accu-Chek) 1 ea Q6 XX Last administered on 02/23/19 12:18; Admin Dose 1 EA; Start 02/15/19 at 12:00 Enoxaparin Sodium (Lovenox) 80 mg BID SC Last administered on 02/23/19 09:54; Admin Dose 80 MG; Start 02/16/19 at 21:00 Diltiazem HCl (Cardizem Cd) 120 mg BID PO Last administered on 02/22/19 21:32; Admin Dose 120 MG; Start 02/18/19 at 21:00 Sodium Chloride 1,000 ml @ 100 mls/hr Q10H IV Last administered on 02/23/19 00:11; Admin Dose 100 MLS/HR; Start 02/21/19 at 09:00 Ceftriaxone Sodium 50 ml @ 100 mls/hr Q24H IVPB Last administered on 02/22/19 16:07; Admin Dose 100 MLS/HR; Start 02/21/19 at 16:00 Loperamide HCl (Imodium Cap) 4 mg QID PO Last administered on 02/23/19 12:18; Admin Dose 4 MG; Start 02/22/19 at 13:00 Ondansetron HCl (Zofran Inj) 4 mg Q6H PRN IV NAUSEA AND/OR VOMITING Last administered on 02/22/19at 16:07; Admin Dose 4 MG; Start 02/22/19 at 16:00 Miscellaneous Information (*Order Clarification Bulletin) MEDICATION REQUIRES CLARIFICATI... Q8H XX ; Start 02/22/19 at 21:00 Assessment/Plan Hospital Course (Demo Recall) 1. A. fib - rate cntrolled now- had few episodes of RVR, better now - CONVERTED TO SINUS. 2. Possible congestive heart failure by chest x-ray with the patient having the onset of acute renal failure at this time. Improved CHF. Better. Keep euvolemic. Stable. Better now. 3. Hypertension, mildly elevated. BP well optimized nw. Will re-check post am meds. Treated. 4. Postoperative status post reversal colostomy - GI team follows,. Con't to recover. On therapy. Surgical team follows. Drains. Surgical team follows. 5. No new episodes. 6. Renal failure, acute.-improved now - renal team follows. CR stable at 1.88 - renal team follows. On therapy now. 7. History of colon carcinoma status post prior colectomy with colostomy - now with therapy post op. Defer to surgical team. 8. Hypernatremia, improved 9. Hypomagnesemia-improved 10. Leukocytosis. On anti-Bx, better overall. SUSSY ANTHONY MD February 23, 2019 14:03
--- NOTE | 2019-02-23 14:16 | PN ---
DATE: 02/23/2019 SUBJECTIVE: Feels good, eating regular diet, drinking fluids, has been out of bed and walking around . Has had a small amount of bowel movement per rectum. No nausea, no vomiting. OBJECTIVE: GENERAL: Awake, alert, oriented. VITAL SIGNS: Today there has been 1 episode of temperature rise to 99.6 at 7:00 a.m., but at 11:30 a .m. is 98.4, heart rate is 77, respirations 16, blood pressure 106/65, saturation 94% room air. LABORATORY DATA: Today sodium and potassium normal. BUN is 41, creatinine almost the same as yester day is 1.76, but still is high. Hematology: WBC is 10,400, which is normal, differential is 79% seg mented slightly, hemoglobin 9.3, hematocrit 29, and platelet is 388. It was 416 before and today has dropped a little bit. PHYSICAL EXAM: HEART: Regular. LUNGS: Clear. Decreased breathing sound at bases. ABDOMEN: Not distended. Bowel sounds present. Midline incision wound is healing here and is partia lly open, but there is no purulent discharge. Ileostomy is functioning, has a lot of liquid yellowis h material in the ileostomy. Chest x-ray from February 18 showed there is a small to moderate right pleural effusion in the right side , stable cardiomegaly. No other chest x-ray since then. The patient is also on this treatment and management with infectious disease, cardiology and nephrolo gy. PLAN: Continue current care. Continue treating the midline incisional wound with Betadine painting once or twice per day. We will continue to follow along with other colleagues. Dictated By: LIAT LOOMIS MD PS/NTS Conf#: [id number] DID#: [id number] CC: JACOB FERNANDEZ MD; ANDREY ZHENG MD;*EndCC*
--- NOTE | 2019-02-23 14:24 | PN ---
Date/Time of Note Date/Time of Note DATE: 02/23/19 TIME: 14:22 Assessment/Plan VTE Prophylaxis Risk score (from Nsg)>0 risk: 11 SCD applied (from Nsg): Yes Lines/Catheters IV Catheter Type (from Nrsg): Saline Lock Urinary Cath still in place: No Assessment/Plan Assessment/Plan -Atrial fibrillation with rapid ventricular response. Dr. Alejandro is following in cardiology consultation. Continue Lovenox and Cardizem, telemetry monitoring. -Anastomotic leak and intra-abdominal abscess, S/p CT guided drainage of abscess in LLQ on 02/01/2019. Status post laparotomy, washout of the peritoneal cavity, placement of a diverting loop ileostomy in right lower quadrant for protection of the anastomosis in the colorectal area on 02/11/[address] Art. Continue ceftriaxone per ID recommendation. -Sepsis secondary to intra-abdominal infection and pneumonia, resolved, s/p treatment with antibiotics. Dr. Bosch is following in infection disease consultation. -R pleural effusion, s/p R sided thoracentesis on 02/05/2019 -S/p open Reagan reversal and colorectal low pelvic anastomosis, segmental partial colectomy, and open incarcerated incisional and parastomal hernia repairs with mesh by Dr. Art on 01/21/2019. Continue [place] and Dilaudid as needed for pain and Zofran as needed for nausea. -Stage III sigmoid colon cancer, status post surgery and chemo in 2018. -Acute kidney injury on chronic kidney disease, monitor urine output BUN and creatinine. Dr. Stuart is following in nephrology consultation. -Acute on chronic diastolic CHF -Protein calorie malnutrition, improved. Patient required TPN which is currently stopped, patient tolerates a regular diet. -Obstructive sleep apnea -History of hypertension -History of left upper extremity DVT, status post bilateral upper extremity ultrasound on 02/05/2019: No sonographic evidence for bilateral upper extremity deep venous thrombosis. Superficial thrombus in the right cephalic vein in the forearm. Cephalic vein in the upper arm is patent. Superficial thrombus in the left cephalic vein in the antecubital fossa. Cephalic vein in the upper arm is patent. Further recommendations based on clinical course. Plan of care discussed with Dr. Fox. Result Diagram: 02/23/19 0554 02/23/19 0554 Results 24hrs Laboratory Tests Test 02/22/19 17:47 02/23/19 00:10 02/23/19 05:54 02/23/19 06:25 Bedside Glucose 147 118 113 White Blood Count 10.4 Red Blood Count 3.21 L Hemoglobin 9.3 L Hematocrit 29.0 L Mean Corpuscular 90.3 Volume Mean Corpuscular 29.0 Hemoglobin Mean Corpuscular 32.1 Hemoglobin Concent Red Cell 13.7 Distribution Width Platelet Count 388 Mean Platelet Volume 11.1 H Immature 2.000 H Granulocytes % Neutrophils % 79.3 H Lymphocytes % 7.4 L Monocytes % 9.3 Eosinophils % 1.6 Basophils % 0.4 Nucleated Red Blood 0.0 Cells % Immature 0.210 H Granulocytes # Neutrophils # 8.2 H Lymphocytes # 0.8 Monocytes # 1.0 H Eosinophils # 0.2 Basophils # 0.0 Nucleated Red Blood 0.0 Cells # Sodium Level 135 Potassium Level 4.0 Chloride Level 94 L Carbon Dioxide Level 34 H Anion Gap 7 Blood Urea Nitrogen 41 H Creatinine 1.76 H Est Glomerular 40 L Filtrat Rate mL/min Glucose Level 109 Calcium Level 9.0 Phosphorus Level 4.2 Magnesium Level 2.2 Test 02/23/19 12:18 Bedside Glucose 130 Exam/Review of Systems Exam Vitals Vital Signs Date Temp Pulse Resp B/P (MAP) Pulse Ox O2 O2 Flow FiO2 Time Delivery Rate 02/23/19 76 95 21 13:42 02/23/19 98.4 16 106/65 11:30 (79) 02/23/19 Room Air 04:04 Intake and Output 02/22/19 02/22/19 02/23/19 1515:00 23:00 07:00 IntakeIntake Total 960 ml 500 ml OutputOutput Total 0 ml 2850 ml 1300 ml BalanceBalance 0 ml -1890 ml -800 ml Results Results 24hrs Laboratory Tests Test 02/22/19 17:47 02/23/19 00:10 02/23/19 05:54 02/23/19 06:25 Bedside Glucose 147 118 113 White Blood Count 10.4 Red Blood Count 3.21 L Hemoglobin 9.3 L Hematocrit 29.0 L Mean Corpuscular 90.3 Volume Mean Corpuscular 29.0 Hemoglobin Mean Corpuscular 32.1 Hemoglobin Concent Red Cell 13.7 Distribution Width Platelet Count 388 Mean Platelet Volume 11.1 H Immature 2.000 H Granulocytes % Neutrophils % 79.3 H Lymphocytes % 7.4 L Monocytes % 9.3 Eosinophils % 1.6 Basophils % 0.4 Nucleated Red Blood 0.0 Cells % Immature 0.210 H Granulocytes # Neutrophils # 8.2 H Lymphocytes # 0.8 Monocytes # 1.0 H Eosinophils # 0.2 Basophils # 0.0 Nucleated Red Blood 0.0 Cells # Sodium Level 135 Potassium Level 4.0 Chloride Level 94 L Carbon Dioxide Level 34 H Anion Gap 7 Blood Urea Nitrogen 41 H Creatinine 1.76 H Est Glomerular 40 L Filtrat Rate mL/min Glucose Level 109 Calcium Level 9.0 Phosphorus Level 4.2 Magnesium Level 2.2 Test 02/23/19 12:18 Bedside Glucose 130 Medications Medication Current Medications Metoprolol Tartrate (Lopressor) 5 mg Q4H PRN IV HR>110 HOld SBP<100 Last administered on 02/18/19 18:53; Admin Dose 5 MG; Start 01/23/19 at 20:30 Levalbuterol (Xopenex Neb) 0.63 mg Q6H RESP THERAPY HHN Last administered on 02/23/19 13:41; Admin Dose 0.63 MG; Start 01/24/19 at 23:30 Acetaminophen (Tylenol Tab) 650 mg Q6H PRN PO MILD PAIN(1-3)OR ELEVATED TEMP Last administered on 02/10/19 21:54; Admin Dose 650 MG; Start 01/29/19 at 23:30 Al Hydrox/Mg Hydrox/Simethicone (Mag-Al Plus) 30 ml Q4H PRN PO GASTROINTESTINAL UPSET Last administered on 01/30/19 18:39; Admin Dose 30 ML; Start 01/29/19 at 23:30 Atenolol (Tenormin) 50 mg BID PO Last administered on 02/22/19 21:32; Admin Dose 50 MG; Start 01/30/19 at 21:00 Morphine Sulfate (morphine) 2 mg Q2H PRN IV PAIN LEVEL 6-10; Start 02/11/19 at 16:30 Acetaminophen/ Hydrocodone Bitart ([place] (5/325)) 1 tab Q6H PRN PO PAIN LEVEL 6-10; Start 02/11/19 at 16:30 Fluconazole 100 ml @ 100 mls/hr Q24H IVPB Last administered on 02/23/19 12:23; Admin Dose 100 MLS/HR; Start 02/12/19 at 12:30 Nystatin (Nystatin Susp) 5 ml QID PO Last administered on 02/23/19 12:18; Adm in Dose 5 ML; Start 02/12/19 at 13:00 Diagnostic Test (Pha) (Accu-Chek) 1 ea Q6 XX Last administered on 02/23/19 12:18; Admin Dose 1 EA; Start 02/15/19 at 12:00 Enoxaparin Sodium (Lovenox) 80 mg BID SC Last administered on 02/23/19 09:54; Admin Dose 80 MG; Start 02/16/19 at 21:00 Diltiazem HCl (Cardizem Cd) 120 mg BID PO Last administered on 02/22/19 21:32; Admin Dose 120 MG; Start 02/18/19 at 21:00 Sodium Chloride 1,000 ml @ 100 mls/hr Q10H IV Last administered on 02/23/19 00:11; Admin Dose 100 MLS/HR; Start 02/21/19 at 09:00 Ceftriaxone Sodium 50 ml @ 100 mls/hr Q24H IVPB Last administered on 02/22/19 16:07; Admin Dose 100 MLS/HR; Start 02/21/19 at 16:00 Loperamide HCl (Imodium Cap) 4 mg QID PO Last administered on 02/23/19 12:18; Admin Dose 4 MG; Start 02/22/19 at 13:00 Ondansetron HCl (Zofran Inj) 4 mg Q6H PRN IV NAUSEA AND/OR VOMITING Last administered on 02/22/19 16:07; Admin Dose 4 MG; Start 02/22/19 at 16:00 Miscellaneous Information (*Order Clarification Bulletin) MEDICATION REQUIRES CLARIFICATI... Q8H XX ; Start 02/22/19 at 21:00 LUIS HARDWICK February 23, 2019 14:24
[2019-02-23] MEDS: CEFTRIAXONE 1 GM/50 ML (PMX) 50 ML IVPB SCH (15:30)
--- NOTE | 2019-02-23 15:34 | CONS ---
[facility] HCIS Consult Follow-up Patient Name: Santiago Kelly Unit Number: [id number] Date of : 1960 Patient Status: Admitted Inpatient Attending Doctor: Michoacano Fox MD Edit: MERCED ESCUDERO M.D. on 02/25/19 @ 03:20 [place]: I discussed the management with BRENDAN Bañuelos and agree Assessment/Plan Assessment/Plan Hospital Course (Demo Recall) # sepsis, respiratory - sepsis due to complicated intra-abdominal infection and pneumonia, resolved - recurrent pleural effusion, follow up chest US on 02/17/2019 showed small R sided effusion - congested cough probably due to pleural effusion and fluid overload, influenza AB negative on 02/17/2019. Improving and stable on room air - R pleural effusion, exudative process, parapneumonic effusion LDH 1601 protein 3.2, no e/o malignancy on cytology - s/p R sided thoracentesis on 02/05/2019 - VIJAY # GI, onc - s/p ex lap, washout of abdominal abscess, CLEVE, diverting loop ileostomy on 02/11/2019 - s/p open Reagan reversal and colorectal low pelvic anastomosis, segmental partial colectomy, and open incarcerated incisional and parastomal hernia repairs with mesh by Dr. Art on 01/21/2019 - thrush, resolving - follow up CT on 02/04/2019 did not identify definite point of leak--> anastomotic leak was identified on gastograffin - s/p CT guided drainage of abscess in LLQ on 02/01/2019 - abdominal wound culture 01/30/19 and abscess culture 01/31/19 grew pseudomonas, joseline albicans and glabrata - s/p colostomy reversal - stage III sigmoid colon cancer, status post prior colectomy/colostomy and chemo in 2018 # renal, cardiovascular - recurrent acute kidney injury on chronic kidney disease - acute on chronic diastolic CHF, improved - atrial fibrillation with RVR, converted to SR - Hx hypertension - Hx left upper extremity DVT - superficial thrombus in R cephalic vein in the forearm and in L cephalic vein in the antecubital fossa as visualized on NOY 02/05/2019 # other conditions - R conjunctivitis, resolved after neomycin eye drop x 7 days recommendations: - Continue Ceftriaxone 1 gm IV daily (02/21/19 - ) until repeat imaging shows resolution of intra-abdominal fluid collection. Pt previously took meropenem (01/30/2019-02/03/2019), metronidazole (02/04/2019-02/16/2019) and cefepime (02/04/2019-02/18/2019) - Continue fluconazole (01/30/2019-) and nystatin (02/12/2019-) until thrush resolves\ - Monitor renal function Management d/w patient, CATHERINE Silva and with Dr. Solorio Consultation Date/Type/Reason Admit Date/Time Jan 21, 2019 at 06:18 Initial Consult Date 01/30/19 Type of Consult Infectious Disease Requesting Provider: ODELL PACHECO Date/Time of Note DATE: 02/23/19 TIME: 15:34 24 HR Interval Summary Free Text/Dictation Pt with no complaints. No acute issues per d/w nursing. Renal fxn slowly improving. Exam/Review of Systems Exam Vitals Vital Signs Date Temp Pulse Resp B/P (MAP) Pulse Ox O2 O2 Flow FiO2 Time Delivery Rate 02/23/19 98.5 96 16 113/69 95 15:08 (84) 02/23/19 21 13:42 02/23/19 Room Air 04:04 Intake and Output 02/22/19 02/22/19 02/23/19 1515:00 23:00 07:00 IntakeIntake Total 960 ml 500 ml OutputOutput Total 0 ml 2850 ml 1300 ml BalanceBalance 0 ml -1890 ml -800 ml Exam Constitutional: alert, oriented, well developed, obese, other (multiple family at bedside) Psych: nl mood/affect Head: normocephalic, atraumatic Eyes: nl conjunctiva, nl lids, nl sclera ENMT: nl external ears & nose, nl lips & teeth, nl nasal mucosa & septum, m ucosa pink and moist (residual thrush noted on posterior tongue) Neck: supple Respiratory: clear to auscultation, diminished breath sounds (R>L), other (On room air) Cardiovascular: regular rate and rhythm, nl pulses Gastrointestinal: soft, distended, surgical scars, other (+RLQ ileostomy bag with yellowish stool) Genitourinary-Male: nl penis, nl scrotum Musculoskeletal: nl extremities to inspection Extremities: normal pulses Neurological: nl mental status, nl speech (Speech accented; Primarily [place] speaking) Skin: nl turgor, other (ML abdominal dressing c/d/i with few [place] underneath) Results Result Diagram: 02/23/19 0554 02/23/19 0554 Results 24hrs Laboratory Tests Test 02/22/19 17:47 02/23/19 00:10 02/23/19 05:54 02/23/19 06:25 Bedside Glucose 147 118 113 White Blood Count 10.4 Red Blood Count 3.21 L Hemoglobin 9.3 L Hematocrit 29.0 L Mean Corpuscular 90.3 Volume Mean Corpuscular 29.0 Hemoglobin Mean Corpuscular 32.1 Hemoglobin Concent Red Cell 13.7 Distribution Width Platelet Count 388 Mean Platelet Volume 11.1 H Immature 2.000 H Granulocytes % Neutrophils % 79.3 H Lymphocytes % 7.4 L Monocytes % 9.3 Eosinophils % 1.6 Basophils % 0.4 Nucleated Red Blood 0.0 Cells % Immature 0.210 H Granulocytes # Neutrophils # 8.2 H Lymphocytes # 0.8 Monocytes # 1.0 H Eosinophils # 0.2 Basophils # 0.0 Nucleated Red Blood 0.0 Cells # Sodium Level 135 Potassium Level 4.0 Chloride Level 94 L Carbon Dioxide Level 34 H Anion Gap 7 Blood Urea Nitrogen 41 H Creatinine 1.76 H Est Glomerular 40 L Filtrat Rate mL/min Glucose Level 109 Calcium Level 9.0 Phosphorus Level 4.2 Magnesium Level 2.2 Test 02/23/19 12:18 Bedside Glucose 130 Medications Medication Current Medications Metoprolol Tartrate (Lopressor) 5 mg Q4H PRN IV HR>110 HOld SBP<100 Last administered on 02/18/19at 18:53; Admin Dose 5 MG; Start 01/23/19 at 20:30 Levalbuterol (Xopenex Neb) 0.63 mg Q6H RESP THERAPY HHN Last administered on 5/11/19at 13:41; Admin Dose 0.63 MG; Start 01/24/19 at 23:30 Acetaminophen (Tylenol Tab) 650 mg Q6H PRN PO MILD PAIN(1-3)OR ELEVATED TEMP Last administered on 02/10/19 21:54; Admin Dose 650 MG; Start 01/29/19 at 23:30 Al Hydrox/Mg Hydrox/Simethicone (Mag-Al Plus) 30 ml Q4H PRN PO GASTROINTESTINAL UPSET Last administered on 01/30/19 18:39; Admin Dose 30 ML; Start 01/29/19 at 23:30 Atenolol (Tenormin) 50 mg BID PO Last administered on 02/22/19 21:32; Admin Dose 50 MG; Start 01/30/19 at 21:00 Morphine Sulfate (morphine) 2 mg Q2H PRN IV PAIN LEVEL 6-10; Start 02/11/19 at 16:30 Acetaminophen/ Hydrocodone Bitart ([place] (5/325)) 1 tab Q6H PRN PO PAIN LEVEL 6-10; Start 02/11/19 at 16:30 Fluconazole 100 ml @ 100 mls/hr Q24H IVPB Last administered on 02/23/19 12:23; Admin Dose 100 MLS/HR; Start 02/12/19 at 12:30 Nystatin (Nystatin Susp) 5 ml QID PO Last administered on 02/23/19 12:18; Admin Dose 5 ML; Start 02/12/19 at 13:00 Diagnostic Test (Pha) (Accu-Chek) 1 ea Q6 XX Last administered on 02/23/19 12:18; Admin Dose 1 EA; Start 02/15/19 at 12:00 Enoxaparin Sodium (Lovenox) 80 mg BID SC Last administered on 02/23/19 09:54; Admin Dose 80 MG; Start 02/16/19 at 21:00 Diltiazem HCl (Cardizem Cd) 120 mg BID PO Last administered on 02/22/19 21:32; Admin Dose 120 MG; Start 02/18/19 at 21:00 Sodium Chloride 1,000 ml @ 100 mls/hr Q10H IV Last administered on 02/23/19 15:30; Admin Dose 100 MLS/HR; Start 02/21/19 at 09:00 Ceftriaxone Sodium 50 ml @ 100 mls/hr Q24H IVPB Last administered on 02/23/19at 15:30; Admin Dose 100 MLS/HR; Start 02/21/19 at 16:00 Loperamide HCl (Imodium Cap) 4 mg QID PO Last administered on 02/23/19at 12:18; Admin Dose 4 MG; Start 02/22/19 at 13:00 Ondansetron HCl (Zofran Inj) 4 mg Q6H PRN IV NAUSEA AND/OR VOMITING Last administered on 02/22/19at 16:07; Admin Dose 4 MG; Start 02/22/19 at 16:00 Miscellaneous Information (*Order Clarification Bulletin) MEDICATION REQUIRES CLARIFICATI... Q8H XX ; Start 02/22/19 at 21:00 YVETTE BAÑUELOS NP February 23, 2019 15:34
[2019-02-24] VITALS (11 sets, daily range): BP systolic 110–129; BP diastolic 63–78; PULSE 76–89; RESP 16–18
[2019-02-24] MEDS: LEVALBUTEROL (NEB) 0.63 MG/3 ML AMP HHN SCH ×4 (01:17→21:19)
[2019-02-24] MEDS: ACCU-CHEK XX SCH ×3 (02:07→21:00)
[2019-02-24] MEDS: SOD CHLORIDE 0.9% 1,000 ML IV SCH (03:11)
[2019-02-24] MEDS: LOPERAMIDE 2 MG CAP PO SCH ×4 (09:37→21:10)
[2019-02-24] MEDS: ATENOLOL 50 MG TAB PO SCH ×2 (09:39→21:10)
[2019-02-24] MEDS: DILTIAZEM (CD) 120 MG CAP PO SCH ×2 (09:39→21:10)
[2019-02-24] MEDS: NYSTATIN SUSP 5 ML CUP PO SCH ×3 (09:39→16:13)
[2019-02-24] MEDS: ENOXAPARIN 80 MG/0.8 ML SYG SC SCH ×2 (09:48→22:02)
--- NOTE | 2019-02-24 11:28 | CONS ---
Assessment/Plan Assessment/Plan Hospital Course (Demo Recall) 1. Nonoliguric acute kidney injury with previous baseline creatinine of 0.7 mg/dL. Etiology of acute kidney injury is secondary to volume depletion secondary to gastrointestinal losses. The patient was initiated on IV fluids with stabilization of renal function. cont ivf 2. Hypernatremia secondary to acute kidney injury, improved. Continue to monitor. 3. Anemia. Continue to monitor hemoglobin and hematocrit levels. 4. Metabolic alkalosis. Etiology is secondary to acute kidney injury, volume depletion. Continue IV hydration and monitor. 5. Anemia. Monitor hemoglobin and hematocrit levels. 6. Mineral bone disorder, monitor calcium and phosphorus levels. 7. Anastomotic leak status post laparotomy with peritoneal washout and diverting ileostomy. Continue to monitor. 8. Sepsis secondary to intraabdominal infection, pneumonia. The patient is completing antibiotic course. 9. History of colon cancer, status post surgery and chemotherapy. 10. History of heart failure. Continue to monitor closely on IV hydration. 11. History of sleep apnea. 12. History of hypertension. 13. Left lower extremity thrombosis. Continue medical management. 14. Atrial fibrillation. Continue current treatment plan. Consultation Date/Type/Reason Admit Date/Time Jan 21, 2019 at 06:18 Initial Consult Date 01/30/19 Requesting Provider: ODELL PACHECO Date/Time of Note DATE: 02/24/19 TIME: 11:26 24 HR Interval Summary Free Text/Dictation denies shortness of breath or n/v urinating without issues gen nad cv rrr pulm ctab abd soft, nd nt +bs ext: no edema Exam/Review of Systems Exam Vitals Vital Signs Date Temp Pulse Resp B/P (MAP) Pulse Ox O2 O2 Flow FiO2 Time Delivery Rate 02/24/19 99.9 82 16 128/74 96 11:02 (92) 02/24/19 21 01:17 02/23/19 Room Air 04:04 Intake and Output 02/23/19 02/23/19 02/24/19 1414:59 22:59 06:59 IntakeIntake Total 950 ml 300 ml OutputOutput Total 1050 ml 1700 ml BalanceBalance -100 ml -1400 ml Results Result Diagram: 02/23/19 0554 02/24/19 0733 Results 24hrs Laboratory Tests Test 02/23/19 12:18 02/23/19 17:43 02/24/19 01:59 02/24/19 07:33 Bedside Glucose 130 99 121 Sodium Level 136 Potassium Level 4.2 Chloride Level 99 Carbon Dioxide Level 32 H Anion Gap 5 Blood Urea Nitrogen 29 #H Creatinine 1.41 H Est Glomerular 51 L Filtrat Rate mL/min Glucose Level 115 Calcium Level 8.6 Test 02/24/19 09:58 Bedside Glucose 141 Medications Medication Current Medications Metoprolol Tartrate (Lopressor) 5 mg Q4H PRN IV HR>110 HOld SBP<100 Last administered on 02/18/19 18:53; Admin Dose 5 MG; Start 01/23/19 at 20:30 Levalbuterol (Xopenex Neb) 0.63 mg Q6H RESP THERAPY HHN Last administered on 02/24/19 08:57; Admin Dose 0.63 MG; Start 01/24/19 at 23:30 Acetaminophen (Tylenol Tab) 650 mg Q6H PRN PO MILD PAIN(1-3)OR ELEVATED TEMP Last administered on 02/10/19 21:54; Admin Dose 650 MG; Start 01/29/19 at 23:30 Al Hydrox/Mg Hydrox/Simethicone (Mag-Al Plus) 30 ml Q4H PRN PO GASTROINTESTINAL UPSET Last administered on 01/30/19 18:39; Admin Dose 30 ML; Start 01/29/19 at 23:30 Atenolol (Tenormin) 50 mg BID PO Last administered on 02/24/19 09:39; Admin Dose 50 MG; Start 01/30/19 at 21:00 Morphine Sulfate (morphine) 2 mg Q2H PRN IV PAIN LEVEL 6-10; Start 02/11/19 at 16:30 Acetaminophen/ Hydrocodone Bitart ([place] (5/325)) 1 tab Q6H PRN PO PAIN LEVEL 6-10; Start 02/11/19 at 16:30 Fluconazole 100 ml @ 100 mls/hr Q24H IVPB Last administered on 02/23/19 12:23; Admin Dose 100 MLS/HR; Start 02/12/19 at 12:30 Nystatin (Nystatin Susp) 5 ml QID PO Last administered on 02/24/19 09:39; Admin Dose 5 ML; Start 02/12/19 at 13:00 Enoxaparin Sodium (Lovenox) 80 mg BID SC Last administered on 02/24/19 09:48; Admin Dose 80 MG; Start 02/16/19 at 21:00 Diltiazem HCl (Cardizem Cd) 120 mg BID PO Last administered on 02/24/19 09:39; Admin Dose 120 MG; Start 02/18/19 at 21:00 Ceftriaxone Sodium 50 ml @ 100 mls/hr Q24H IVPB Last administered on 02/23/19 15:30; Admin Dose 100 MLS/HR; Start 02/21/19 at 16:00 Loperamide HCl (Imodium Cap) 4 mg QID PO Last administered on 02/24/19 09:37; Admin Dose 4 MG; Start 02/22/19 at 13:00 Ondansetron HCl (Zofran Inj) 4 mg Q6H PRN IV NAUSEA AND/OR VOMITING Last administered on 02/22/19 16:07; Admin Dose 4 MG; Start 02/22/19 at 16:00 Miscellaneous Information (*Order Clarification Bulletin) MEDICATION REQUIRES CLARIFICATI... Q8H XX ; Start 02/22/19 at 21:00 Diagnostic Test (Pha) (Accu-Chek) 1 ea Q12 XX Last administered on 02/24/19 09 :59; Admin Dose 1 EA; Start 02/24/19 at 09:00 SANJU JOE MD February 24, 2019 11:28
[2019-02-24] MEDS: FLUCONAZOLE 200 MG (PMX) 100 ML IVPB SCH (12:18)
--- NOTE | 2019-02-24 13:57 | PN ---
DATE: 02/24/2019 SUBJECTIVE: States that as soon as he eats food he gets nauseous, but no vomiting. Appetite is not very good . No new events otherwise. OBJECTIVE: GENERAL: Awake, alert, oriented, lying down in bed in no acute distress. VITAL SIGNS: Temperature maximum today 99.9, heart rate 82, respirations 16, blood pressure 128/74, saturation 96% on room air. HEART: Regular. LUNGS: Decreased breathing sound at bases. ABDOMEN: Slightly distended. Bowel sounds present. Ileostomy functioning full of undigested FOODS. Midline incision it was locally debrided and cleaned out and necrotic scabs were removed. Undernea th is clean wound to be painted with Betadine daily and covered with sterile sponges. There is a pig tail drain in the left lower quadrant which still is draining brownish purulent material. The amount of drainage in the past 24-hour accumulated in the accordion bag has been recorded as 100 mL. LABORATORY DATA: Sodium and potassium normal today. BUN started to decrease to 39, which is still h igh. Creatinine slightly decreased again, today is 1.41; still is a little bit high, but less than y esterday. Hematology: No hematology today, but yesterday it was WBC 10,400 with 79% segmented, slig htly shift to the left, hemoglobin 9.3, hematocrit 29. IMAGING: Chest x-ray: The last chest x-ray was on 02/18/2019, so we are going to repeat another one tomorrow. ASSESSMENT AND PLAN: This is a 59-year-old gentleman who underwent about 5 weeks ago closure of colo stomy and repair of the parastomal hernia. The patient developed leak and abscess formation in the l eft lower quadrant which was drained percutaneously and later on, when proved to be leak laparotomy, washout of the peritoneal cavity and placement of the diverting loop ileostomy was performed by surge on. Postop, gradually patient did better, has been on for awhile. A couple of times the kidne y function deteriorated. Last time it started deteriorating as of 02/20/2019 which BUN increased to 35 and creatinine 1.69. Optician Apprentice Dispensing on the board treating the patient with over hydration. The pat ient has had pleural effusion, possible pneumonia. Of course, infection in the peritoneal cavity abs cess. Appropriate cultures have been taken. Infectious disease treating the patient with antibacter ial and antifungal. Overall, the patient's status is better after second operation. As was miguelangel mancera, the last CBC which was done yesterday, 02/23/2019, shows WBC 10,400 which is normal, differential is 79%, neutrophils slight shift to the left, some decrease in hemoglobin, which is 9.3. PLAN: From general surgical point of view, the incision line is clean now. Ileostomy is functioning but a little bit concerned about the quality of what is coming out of ileostomy, which shows what ap pears that this is undigested food that the patient is eating, so we are going to address this one ne xt week and I will discuss the surgeon of [place] Dr. Art about this. Continue current care, which is being given by director talent, infectious disease, internal medicine, surgeon and of course, the antoni guevara nurses. Dictated By: LIAT LOOMIS MD PS/MARIAN Conf#: [id number] DID#: [id number]
--- NOTE | 2019-02-24 15:11 | CONS ---
Consult Date/Type/Reason Admit Date/Time Jan 21, 2019 at 06:18 Initial Consult Date Requesting Provider: ODELL PACHECO Date/Time of Note DATE: 02/24/19 TIME: 15:09 Subjective NO acute evens - surgical team follows - no ectopy on tele. ROS: No fever, no chills, no nausea, no vomiting, no diarrhea/constipation - mild SOB now Objective Vitals Vital Signs Date Temp Pulse Resp B/P (MAP) Pulse Ox O2 O2 Flow FiO2 Time Delivery Rate 02/24/19 88 12:27 02/24/19 99.9 16 128/74 96 11:02 (92) 02/24/19 21 01:17 02/23/19 Room Air 04:04 Intake and Output 02/23/19 02/23/19 02/24/19 1515:00 23:00 07:00 IntakeIntake Total 950 ml 300 ml OutputOutput Total 1050 ml 1700 ml BalanceBalance -100 ml -1400 ml Exam General: WN/WD/NAD, AOx 3 HEENT: Unicetric/atraumatic/EOMI (follow commands) NECK: JVD elevated, no thyromegaly Lymph: no lymphadenopathy HEART: regular with no S3, II/ systolic murmur at apex LUNGS: Coarse sounds ABD: soft, NT, ND, +BS - post op : Intact Neuro: non focal SKIN: chronic changes EXT: trace edema Results/Medications Result Diagram: 02/23/19 0554 02/24/19 0733 Results 24 hrs Laboratory Tests Test 02/23/19 17:43 02/24/19 01:59 02/24/19 07:33 02/24/19 09:58 Bedside Glucose 99 121 141 Sodium Level 136 Potassium Level 4.2 Chloride Level 99 Carbon Dioxide Level 32 H Anion Gap 5 Blood Urea Nitrogen 29 #H Creatinine 1.41 H Est Glomerular 51 L Filtrat Rate mL/min Glucose Level 115 Calcium Level 8.6 Home Meds Active Scripts Carvedilol* (Carvedilol*) 25 Mg Tablet, 25 MG PO BID for 30 Days, TAB Prov:ODELL PACHECO 01/15/18 Furosemide* (Furosemide*) 20 Mg Tablet, 20 MG PO DAILY for 30 Days, TAB Prov:ODELL PACHECO 01/15/18 Reported Medications Apixaban* (Eliquis*) 5 Mg Tablet, 5 MG PO BID, TAB 11/02/18 Losartan Potassium* (Losartan Potassium*) 100 Mg Tablet, 100 MG PO DAILY, TAB 11/02/18 Nifedipine* (Nifedipine ER*) 60 Mg Tablet.sa, 60 MG PO BID, TAB.SA 11/02/18 Atorvastatin Calcium* (Atorvastatin Calcium*) 20 Mg Tablet, 20 MG PO QHS, #30 T AB 01/07/18 Medications Current Medications Metoprolol Tartrate (Lopressor) 5 mg Q4H PRN IV HR>110 HOld SBP<100 Last administered on 02/18/19 18:53; Admin Dose 5 MG; Start 01/23/19 at 20:30 Levalbuterol (Xopenex Neb) 0.63 mg Q6H RESP THERAPY HHN Last administered on 02/24/19 14:36; Admin Dose 0.63 MG; Start 01/24/19 at 23:30 Acetaminophen (Tylenol Tab) 650 mg Q6H PRN PO MILD PAIN(1-3)OR ELEVATED TEMP Last administered on 02/10/19at 21:54; Admin Dose 650 MG; Start 01/29/19 at 23:30 Al Hydrox/Mg Hydrox/Simethicone (Mag-Al Plus) 30 ml Q4H PRN PO GASTROINTESTINAL UPSET Last administered on 01/30/19at 18:39; Admin Dose 30 ML; Start 01/29/19 at 23:30 Atenolol (Tenormin) 50 mg BID PO Last administered on 02/24/19 09:39; Admin Dose 50 MG; Start 01/30/19 at 21:00 Morphine Sulfate (morphine) 2 mg Q2H PRN IV PAIN LEVEL 6-10; Start 02/11/19 at 16:30 Acetaminophen/ Hydrocodone Bitart ([place] (5/325)) 1 tab Q6H PRN PO PAIN LEVEL 6-10; Start 02/11/19 at 16:30 Fluconazole 100 ml @ 100 mls/hr Q24H IVPB Last administered on 02/24/19at 12:18; Admin Dose 100 MLS/HR; Start 02/12/19 at 12:30 Nystatin (Nystatin Susp) 5 ml QID PO Last administered on 02/24/19 12:28; Admin Dose 5 ML; Start 02/12/19 at 13:00 Enoxaparin Sodium (Lovenox) 80 mg BID SC Last administered on 02/24/19 09:48; Admin Dose 80 MG; Start 02/16/19 at 21:00 Diltiazem HCl (Cardizem Cd) 120 mg BID PO Last administered on 02/24/19 09:39; Admin Dose 120 MG; Start 02/18/19 at 21:00 Ceftriaxone Sodium 50 ml @ 100 mls/hr Q24H IVPB Last administered on 02/23/19 15:30; Admin Dose 100 MLS/HR; Start 02/21/19 at 16:00 Loperamide HCl (Imodium Cap) 4 mg QID PO Last administered on 02/24/19 12:28; Admin Dose 4 MG; Start 02/22/19 at 13:00 Ondansetron HCl (Zofran Inj) 4 mg Q6H PRN IV NAUSEA AND/OR VOMITING Last administered on 02/22/19 16:07; Admin Dose 4 MG; Start 02/22/19 at 16:00 Miscellaneous Information (*Order Clarification Bulletin) MEDICATION REQUIRES CLARIFICATI... Q8H XX ; Start 02/22/19 at 21:00 Diagnostic Test (Pha) (Accu-Chek) 1 ea Q12 XX Last administered on 02/24/19 09:59; Admin Dose 1 EA; Start 02/24/19 at 09:00 Assessment/Plan Hospital Course (Demo Recall) 1. A. fib - rate cntrolled now- had few episodes of RVR, better now - CONVERTED TO SINUS. On tele - no tachy- brday noted. 2. Possible congestive heart failure by chest x-ray with the patient having the onset of acute renal failure at this time. Improved CHF. Better. Keep euvolemic. Stable. Better now. 3. Hypertension, mildly elevated. BP well optimized nw. Will re-check post am meds. Treated. 4. Postoperative status post reversal colostomy - GI team follows,. Con't to recover. On therapy. Surgical team follows. Drains. Surgical team follows. 5. No new episodes. 6. Renal failure, acute.-improved now - renal team follows. CR con't to improve. 7. History of colon carcinoma status post prior colectomy with colostomy - now with therapy post op. Defer to surgical team. 8. Hypernatremia, improved 136 now. 9. Hypomagnesemia-improved 10. Leukocytosis. On anti-Bx, better overall. SUSSY ANTHONY MD February 24, 2019 15:11
--- NOTE | 2019-02-24 15:35 | CONS ---
[facility] HCIS Consult Follow-up Patient Name: Santiago Kelly Unit Number: [id number] Date of : 1960 Patient Status: Admitted Inpatient Attending Doctor: Michoacano Fox MD Edit: MERCED RENNER M.D. on 02/25/19 @ 03:21 Zurdo: I discussed the management with BRENDAN Bañuelos and agree Assessment/Plan Assessment/Plan Hospital Course (Demo Recall) # sepsis, respiratory - sepsis due to complicated intra-abdominal infection and pneumonia, resolved - recurrent pleural effusion, follow up chest US on 02/17/2019 showed small R sided effusion - congested cough probably due to pleural effusion and fluid overload, influenza AB negative on 02/17/2019. Improving and stable on room air - R pleural effusion, exudative process, parapneumonic effusion LDH 1601 protein 3.2, no e/o malignancy on cytology - s/p R sided thoracentesis on 02/05/2019 - VIJAY # GI, onc - s/p ex lap, washout of abdominal abscess, CLEVE, diverting loop ileostomy on 02/11/2019 - s/p open Reagan reversal and colorectal low pelvic anastomosis, segmental partial colectomy, and open incarcerated incisional and parastomal hernia repairs with mesh by Dr. Art on 01/21/2019 - thrush, resolving - follow up CT on 02/04/2019 did not identify definite point of leak--> anastomotic leak was identified on gastograffin - s/p CT guided drainage of abscess in LLQ on 02/01/2019 - abdominal wound culture 01/30/19 and abscess culture 01/31/19 grew pseudomonas, joseline albicans and glabrata - s/p colostomy reversal - stage III sigmoid colon cancer, status post prior colectomy/colostomy and chemo in 2018 # renal, cardiovascular - recurrent acute kidney injury on chronic kidney disease - acute on chronic diastolic CHF, improved - atrial fibrillation with RVR, converted to SR - Hx hypertension - Hx left upper extremity DVT - superficial thrombus in R cephalic vein in the forearm and in L cephalic vein in the antecubital fossa as visualized on NOY 02/05/2019 # other conditions - R conjunctivitis, resolved after neomycin eye drop x 7 days recommendations: - Send abdominal fluid drainage for C&S - Change Ceftriaxone (02/21/2019-) back to Cefepime (02/24/2019-) to cover possible recurrent Pseudomonas infection - Restart IV metronidazole (02/24/2019-) for anaerobic coverage - Continue fluconazole (01/30/2019-) due to recent Joseline infection - DC nystatin (02/12/2019-) as oral thrush has resolved - Ordered repeat 12 lead EKG to evaluate for QT prolongation (QTc 486 on 01/24/2019). Consideration of de-escalating to Cipro, but this has interaction with Fluconazole and Lipitor for risk of QT prolongation. - Monitor renal function - We recommend continued antibiotics until repeat imaging shows resolution of intra-abdominal fluid collection. Antibiotics to be adjusted based on above findings. - Of note: Pt previously took meropenem (01/30/2019-02/03/2019), metronidazole (02/04/2019-02/16/2019) and cefepime (02/04/2019-02/18/2019) - Pt and his family need education on ileostomy care Management d/w patient, pt's family including his sister at bedside, CATHERINE Silva and with Dr. Renner at length. All questions answered. Therapeutic time provided. Total time spent: 45 min Consultation Date/Type/Reason Admit Date/Time Jan 21, 2019 at 06:18 Initial Consult Date 01/30/19 Type of Consult Infectious Disease Requesting Provider: ODELL PACHECO Date/Time of Note DATE: 02/24/19 TIME: 15:34 24 HR Interval Summary Free Text/Dictation Renal function is slowly improving with IVF. Pt noted to have some undigested food particles in ileostomy. Tmax 99.9F. WBC slight trend up. Pt denies pain, SOB, n/v, dysuria. Family asking for nursing to drain ileostomy bag that is full of mostly gas; asking for teaching on ileostomy care. Exam/Review of Systems Exam Vitals Vital Signs Date Temp Pulse Resp B/P (MAP) Pulse Ox O2 O2 Flow FiO2 Time Delivery Rate 02/24/19 88 12:27 02/24/19 99.9 16 128/74 96 11:02 (92) 02/24/19 21 01:17 02/23/19 Room Air 04:04 Intake and Output 02/23/19 02/23/19 02/24/19 1515:00 23:00 07:00 IntakeIntake Total 100 ml 1000 ml 300 ml OutputOutput Total 1050 ml 1700 ml BalanceBalance 100 ml -50 ml -1400 ml Exam Constitutional: alert, oriented, well developed, obese, other (multiple family at bedside) Psych: nl mood/affect Head: normocephalic, atraumatic Eyes: nl conjunctiva, nl lids, nl sclera ENMT: nl external ears & nose, nl lips & teeth, nl nasal mucosa & septum, mucosa pink and moist (no thrush noted) Neck: supple Respiratory: clear to auscultation, diminished breath sounds (R>L), other (On room air) Cardiovascular: regular rate and rhythm, nl pulses Gastrointestinal: soft, distended, surgical scars, other (+RLQ ileostomy bag with yellowish stool with small amount of undigested food particles noted; LLQ drain with brownish purulent drainage) Genitourinary-Male: nl penis, nl scrotum Musculoskeletal: nl extremities to inspection Extremities: normal pulses Neurological: nl mental status, nl speech (Speech accented; Primarily Egyptian s peaking) Skin: nl turgor, other (ML abdominal dressing c/d/i with few abbey underneath) Results Result Diagram: 02/23/19 0554 02/24/19 0733 Results 24hrs Laboratory Tests Test 02/23/19 17:43 02/24/19 01:59 02/24/19 07:33 02/24/19 09:58 Bedside Glucose 99 121 141 Sodium Level 136 Potassium Level 4.2 Chloride Level 99 Carbon Dioxide Level 32 H Anion Gap 5 Blood Urea Nitrogen 29 #H Creatinine 1.41 H Est Glomerular 51 L Filtrat Rate mL/min Glucose Level 115 Calcium Level 8.6 Medications Medication Current Medications Metoprolol Tartrate (Lopressor) 5 mg Q4H PRN IV HR>110 HOld SBP<100 Last administered on 5/6/19at 18:53; Admin Dose 5 MG; Start 01/23/19 at 20:30 Levalbuterol (Xopenex Neb) 0.63 mg Q6H RESP THERAPY HHN Last administered on 02/24/19 14:36; Admin Dose 0.63 MG; Start 01/24/19 at 23:30 Acetaminophen (Tylenol Tab) 650 mg Q6H PRN PO MILD PAIN(1-3)OR ELEVATED TEMP L ast administered on 02/10/19 21:54; Admin Dose 650 MG; Start 01/29/19 at 23:30 Al Hydrox/Mg Hydrox/Simethicone (Mag-Al Plus) 30 ml Q4H PRN PO GASTROINTESTINAL UPSET Last administered on 01/30/19 18:39; Admin Dose 30 ML; Start 01/29/19 at 23:30 Atenolol (Tenormin) 50 mg BID PO Last administered on 02/24/19 09:39; Admin Dose 50 MG; Start 01/30/19 at 21:00 Morphine Sulfate (morphine) 2 mg Q2H PRN IV PAIN LEVEL 6-10; Start 02/11/19 at 16:30 Acetaminophen/ Hydrocodone Bitart ([place] (5/325)) 1 tab Q6H PRN PO PAIN LEVEL 6-10; Start 02/11/19 at 16:30 Fluconazole 100 ml @ 100 mls/hr Q24H IVPB Last administered on 02/24/19 12:18; Admin Dose 100 MLS/HR; Start 02/12/19 at 12:30 Nystatin (Nystatin Susp) 5 ml QID PO Last administered on 02/24/19 12:28; Admin Dose 5 ML; Start 02/12/19 at 13:00 Enoxaparin Sodium (Lovenox) 80 mg BID SC Last administered on 02/24/19 09:48; Admin Dose 80 MG; Start 02/16/19 at 21:00 Diltiazem HCl (Cardizem Cd) 120 mg BID PO Last administered on 02/24/19 09:39; Admin Dose 120 MG; Start 02/18/19 at 21:00 Ceftriaxone Sodium 50 ml @ 100 mls/hr Q24H IVPB Last administered on 02/23/19 15:30; Admin Dose 100 MLS/HR; Start 02/21/19 at 16:00 Loperamide HCl (Imodium Cap) 4 mg QID PO Last administered on 02/24/19at 12:28; Admin Dose 4 MG; Start 02/22/19 at 13:00 Ondansetron HCl (Zofran Inj) 4 mg Q6H PRN IV NAUSEA AND/OR VOMITING Last administered on 02/22/19at 16:07; Admin Dose 4 MG; Start 02/22/19 at 16:00 Miscellaneous Information (*Order Clarification Bulletin) MEDICATION REQUIRES CLARIFICATI... Q8H XX ; Start 02/22/19 at 21:00 Diagnostic Test (Pha) (Accu-Chek) 1 ea Q12 XX Last administered on 02/24/19at 09:59; Admin Dose 1 EA; Start 02/24/19 at 09:00 YVETTE BAÑUELOS NP February 24, 2019 15:35
[2019-02-24] MEDS: CEFTRIAXONE 1 GM/50 ML (PMX) 50 ML IVPB SCH (16:12)
[2019-02-24] MEDS: ONDANSETRON 4 MG INJ IV PRN (18:23)
[2019-02-24] MEDS: metroNIDAZOLE 500 MG/NS (PMX) 100 ML IVPB SCH (21:10)
[2019-02-24] MEDS: CEFEPIME 2GM/50 ML (PMX) 50 ML IVPB SCH (22:01)
[2019-02-25] VITALS (12 sets, daily range): BP systolic 110–121; BP diastolic 60–70; PULSE 64–80; RESP 16–66
[2019-02-25] MEDS: LEVALBUTEROL (NEB) 0.63 MG/3 ML AMP HHN SCH ×4 (01:24→20:55)
[2019-02-25] MEDS: metroNIDAZOLE 500 MG/NS (PMX) 100 ML IVPB SCH ×3 (06:48→22:01)
[2019-02-25] MEDS: LOPERAMIDE 2 MG CAP PO SCH ×4 (08:29→21:07)
[2019-02-25] MEDS: CEFEPIME 2GM/50 ML (PMX) 50 ML IVPB SCH ×2 (08:29→22:01)
--- NOTE | 2019-02-25 08:29 | PN ---
DATE: 02/25/2019 SUBJECTIVE: The patient is stable, no events overnight. No fevers, chills, nausea or vomiting. OBJECTIVE: VITAL SIGNS: Blood pressure is 110/65, pulse 65, respirations 16, temperature 98.7. HEENT: Head is normocephalic. NECK: Supple. HEART: Regular rate. LUNGS: Show diminished breath sounds at the base. ABDOMEN: Soft, nontender to palpation. No rebound or guarding. EXTREMITIES: Negative for clubbing, cyanosis, no edema. DERMATOLOGIC: No rashes. MUSCULOSKELETAL: No joint effusion. NEUROLOGIC: No change in exam. MEDICATIONS: Reviewed. LABORATORY DATA: Reviewed. ASSESSMENT AND PLAN: 1. Nonoliguric acute kidney injury with previous baseline creatinine of 0.7 mg/dL. Etiology of cute kidney injury is secondary to volume depletion. Renal function has improved with IV fluids. We esperanza l continue to monitor. Continue current treatment plans, supportive care, renally dose all medicatio ns. 2. Hypernatremia, improved. Continue to encourage free water intake. 3. Anemia. Monitor hemoglobin and hematocrit levels. 4. Mineral bone disorder, monitor calcium and phosphorus levels. 5. Metabolic acidosis secondary to acute kidney injury. Continue to monitor. 6. Anemia. Continue to monitor hemoglobin and hematocrit levels. 7. Anastomotic leak status post laparotomy with peritoneal washout and diverting ileostomy. Continu e to monitor. 8. Sepsis secondary to intraabdominal infection, pneumonia. The patient is completing antibiotic co urse. 9. History of colon cancer, status post surgery and chemotherapy. 10. History of heart failure. The patient is status post IV fluids. 11. Lower extremity thrombus. Continue medical management. 12. Atrial fibrillation. Continue current treatment plan. Dictated By: SUSAN ZURITA DO NR/NTS Conf#: [id number] DID#: [id number] CC: JACOB FERNANDEZ MD; ANDREY ZHENG MD;*EndCC*
[2019-02-25] MEDS: DILTIAZEM (CD) 120 MG CAP PO SCH ×2 (08:31→21:07)
[2019-02-25] MEDS: ATENOLOL 50 MG TAB PO SCH ×2 (08:34→21:07)
--- NOTE | 2019-02-25 08:45 | CONS ---
Consult Date/Type/Reason Admit Date/Time Jan 21, 2019 at 06:18 Initial Consult Date Requesting Provider: ODELL PACHECO Date/Time of Note DATE: 02/25/19 TIME: 08:42 Subjective NO acute vents - pt comfortable - BP in good range - will monitor clinically now. Able to tolerate full breakfast OK. ROS: No fever, no chills, no nausea, no vomiting, no diarrhea/constipation No recent weight changes No chest pain, no PND, no orthopnea - mild abd discomfort No dizziness, blurred vision No thirst, no heat or cold intolerance Objective Vitals Vital Signs Date Temp Pulse Resp B/P (MAP) Pulse Ox O2 O2 Flow FiO2 Time Delivery Rate 02/25/19 67 18 92 21 07:34 02/25/19 98.7 110/65 07:16 (80) 02/23/19 Room Air 04:04 Intake and Output 02/24/19 02/24/19 02/25/19 1515:00 23:00 07:00 IntakeIntake Total 100 ml 2400 ml 800 ml OutputOutput Total 500 ml 1210 ml BalanceBalance 100 ml 1900 ml -410 ml Exam General: WN/WD/NAD, AOx 3 HEENT: Unicetric/atraumatic/EOMI (follows commands) NECK: JVD elevated, no thyromegaly Lymph: no lymphadenopathy HEART: regular with no S3, II/ systolic murmur at apex LUNGS: Coarse sounds ABD: soft, NT, ND, +BS, post op : Intact Neuro: non focal SKIN: chronic changes EXT: trace edema Results/Medications Result Diagram: 02/25/19 0653 02/25/19 0653 Results 24 hrs Laboratory Tests Test 02/24/19 09:58 02/24/19 22:03 02/25/19 06:53 Bedside Glucose 141 176 White Blood Count 6.9 # Red Blood Count 2.91 L Hemoglobin 8.4 L Hematocrit 26.7 L Mean Corpuscular Volume 91.8 Mean Corpuscular Hemoglobin 28.9 L Mean Corpuscular Hemoglobin Concent 31.5 L Red Cell Distribution Width 13.5 Platelet Count 292 # Mean Platelet Volume 11.0 H Immature Granulocytes % 1.400 H Neutrophils % 78.4 H Lymphocytes % 6.8 L Monocytes % 10.3 Eosinophils % 2.7 Basophils % 0.4 Nucleated Red Blood Cells % 0.0 Immature Granulocytes # 0.100 H Neutrophils # 5.4 Lymphocytes # 0.5 L Monocytes # 0.7 Eosinophils # 0.2 Basophils # 0.0 Nucleated Red Blood Cells # 0.0 Sodium Level 137 Potassium Level 4.3 Chloride Level 101 Carbon Dioxide Level 28 Anion Gap 8 Blood Urea Nitrogen 23 H Creatinine 1.25 H Est Glomerular Filtrat Rate mL/min 59 L Glucose Level 101 Calcium Level 9.0 Home Meds Active Scripts Carvedilol* (Carvedilol*) 25 Mg Tablet, 25 MG PO BID for 30 Days, TAB Prov:ODELL PACHECO 01/15/18 Furosemide* (Furosemide*) 20 Mg Tablet, 20 MG PO DAILY for 30 Days, TAB Prov:ODELL PACHECO 01/15/18 Reported Medications Apixaban* (Eliquis*) 5 Mg Tablet, 5 MG PO BID, TAB 11/02/18 Losartan Potassium* (Losartan Potassium*) 100 Mg Tablet, 100 MG PO DAILY, TAB 11/02/18 Nifedipine* (Nifedipine ER*) 60 Mg Tablet.sa, 60 MG PO BID, TAB.SA 11/02/18 Atorvastatin Calcium* (Atorvastatin Calcium*) 20 Mg Tablet, 20 MG PO QHS, #30 TAB 01/07/18 Medications Current Medications Metoprolol Tartrate (Lopressor) 5 mg Q4H PRN IV HR>110 HOld SBP<100 Last administered on 02/18/19 18:53; Admin Dose 5 MG; Start 01/23/19 at 20:30 Levalbuterol (Xopenex Neb) 0.63 mg Q6H RESP THERAPY HHN Last administered on 02/25/19at 07:33; Admin Dose 0.63 MG; Start 01/24/19 at 23:30 Acetaminophen (Tylenol Tab) 650 mg Q6H PRN PO MILD PAIN(1-3)OR ELEVATED TEMP Last administered on 02/10/19at 21:54; Admin Dose 650 MG; Start 01/29/19 at 23:30 Al Hydrox/Mg Hydrox/Simethicone (Mag-Al Plus) 30 ml Q4H PRN PO GASTROINTESTINAL UPSET Last administered on 01/30/19 18:39; Admin Dose 30 ML; Start 01/29/19 at 23:30 Atenolol (Tenormin) 50 mg BID PO Last administered on 02/24/19 21:10; Admin Dose 50 MG; Start 01/30/19 at 21:00 Morphine Sulfate (morphine) 2 mg Q2H PRN IV PAIN LEVEL 6-10; Start 02/11/19 at 16:30 Acetaminophen/ Hydrocodone Bitart ([place] (5/325)) 1 tab Q6H PRN PO PAIN LEVEL 6-10; Start 02/11/19 at 16:30 Fluconazole 100 ml @ 100 mls/hr Q24H IVPB Last administered on 02/24/19 12:18; Admin Dose 100 MLS/HR; Start 02/12/19 at 12:30 Enoxaparin Sodium (Lovenox) 80 mg BID SC Last administered on 02/24/19 22:02; Admin Dose 80 MG; Start 02/16/19 at 21:00 Diltiazem HCl (Cardizem Cd) 120 mg BID PO Last administered on 02/24/19 21:10; Admin Dose 120 MG; Start 02/18/19 at 21:00 Loperamide HCl (Imodium Cap) 4 mg QID PO Last administered on 02/24/19 21:10; Admin Dose 4 MG; Start 02/22/19 at 13:00 Ondansetron HCl (Zofran Inj) 4 mg Q6H PRN IV NAUSEA AND/OR VOMITING Last administered on 02/24/19 18:23; Admin Dose 4 MG; Start 02/22/19 at 16:00 Diagnostic Test (Pha) (Accu-Chek) 1 ea Q12 XX Last administered on 02/24/19 21:00; Admin Dose 1 EA; Start 02/24/19 at 09:00 Metronidazole 100 ml @ 100 mls/hr Q8 IVPB Last administered on 02/25/19 06:48; Admin Dose 100 MLS/HR; Start 02/24/19 at 22:00 Cefepime HCl 50 ml @ 100 mls/hr Q12 IVPB Last administered on 02/24/19 22:01; Admin Dose 100 MLS/HR; Start 02/24/19 at 21:00 Assessment/Plan Hospital Course (Demo Recall) 1. A. fib - rate cntrolled now- had few episodes of RVR, better now - CONVERTED TO SINUS. On tele - no tachy- brday noted. Remains sinus at 80s now. 2. Possible congestive heart failure by chest x-ray with the patient having the onset of acute renal failure at this time. Improved CHF. Better. Keep euvolemic. Stable. Better now. Euvolemic by exam. 3. Hypertension, mildly elevated. BP well optimized nw. Will re-check post am meds. Treated. 4. Postoperative status post reversal colostomy - GI team follows,. Con't to recover. On therapy. Surgical team follows. Drains. Surgical team follows. 5. Renal failure, acute.-improved now - renal team follows. CR con't to improve. 6. History of colon carcinoma status post prior colectomy with colostomy - now with therapy post op. Defer to surgical team. 7. Leukocytosis. On anti-Bx, better overall. SUSSY ANTHONY MD February 25, 2019 08:45
[2019-02-25] MEDS: ACCU-CHEK XX SCH ×2 (08:56→21:16)
[2019-02-25] MEDS: ENOXAPARIN 80 MG/0.8 ML SYG SC SCH ×2 (08:56→21:11)
--- NOTE | 2019-02-25 10:52 | RADRPT ---
Vent Rate: 63 bpm RR Interval: 948 msec DC Interval: 202 msec QRS Duration: 84 msec QT Interval: 385 msec QTC Interval: 395 msec P-R-T [place]: 38 - 50 - -88 degrees Sinus rhythm...normal P axis, V-rate 50- 99 Borderline prolonged DC interval...DC >202, V-rate 50- 90 Borderline T abnormalities, diffuse leads...T flat/neg Electronically Signed By: Blayne Montero
--- NOTE | 2019-02-25 11:59 | PN ---
Date/Time of Note Date/Time of Note DATE: 02/25/19 TIME: 11:57 Assessment/Plan VTE Prophylaxis Risk score (from Ns)>0 risk: 12 SCD applied (from Ns): Yes Pharmacological prophylaxis: other Lines/Catheters [facility]from [facility] Saline Lock Urinary Cath still in place: No Assessment/Plan Assessment/Plan s/p anastomotic leak with diverting loop ileostomy will place on home TPN and dispo planning Result Diagram: 02/25/19 0653 02/25/19 0653 Results 24hrs Laboratory Tests Test 02/24/19 22:03 02/25/19 06:53 02/25/19 08:48 Bedside Glucose 176 125 White Blood Count 6.9 # Red Blood Count 2.91 L Hemoglobin 8.4 L Hematocrit 26.7 L Mean Corpuscular Volume 91.8 Mean Corpuscular Hemoglobin 28.9 L Mean Corpuscular Hemoglobin Concent 31.5 L Red Cell Distribution Width 13.5 Platelet Count 292 # Mean Platelet Volume 11.0 H Immature Granulocytes % 1.400 H Neutrophils % 78.4 H Lymphocytes % 6.8 L Monocytes % 10.3 Eosinophils % 2.7 Basophils % 0.4 Nucleated Red Blood Cells % 0.0 Immature Granulocytes # 0.100 H Neutrophils # 5.4 Lymphocytes # 0.5 L Monocytes # 0.7 Eosinophils # 0.2 Basophils # 0.0 Nucleated Red Blood Cells # 0.0 Sodium Level 137 Potassium Level 4.3 Chloride Level 101 Carbon Dioxide Level 28 Anion Gap 8 Blood Urea Nitrogen 23 H Creatinine 1.25 H Est Glomerular Filtrat Rate mL/min 59 L Glucose Level 101 Calcium Level 9.0 Subjective 24 Hr Interval Summary Free Text/Dictation patients cr improving accordion output decreasing Exam/Review of Systems Exam Vitals Vital Signs Date Temp Pulse Resp B/P (MAP) Pulse Ox O2 O2 Flow FiO2 Time Delivery Rate 02/25/19 98.6 67 16 121/70 94 11:13 (87) 02/25/19 21 07:34 02/23/19 Room Air 04:04 Intake and Output 02/24/19 02/24/19 02/25/19 1515:00 23:00 07:00 IntakeIntake Total 100 ml 2400 ml 800 ml OutputOutput Total 500 ml 1210 ml BalanceBalance 100 ml 1900 ml -410 ml Exam granulating midline incision ileostomy viable with high output Results Results 24hrs Laboratory Tests Test 02/24/19 22:03 02/25/19 06:53 02/25/19 08:48 Bedside Glucose 176 125 White Blood Count 6.9 # Red Blood Count 2.91 L Hemoglobin 8.4 L Hematocrit 26.7 L Mean Corpuscular Volume 91.8 Mean Corpuscular Hemoglobin 28.9 L Mean Corpuscular Hemoglobin Concent 31.5 L Red Cell Distribution Width 13.5 Platelet Count 292 # Mean Platelet Volume 11.0 H Immature Granulocytes % 1.400 H Neutrophils % 78.4 H Lymphocytes % 6.8 L Monocytes % 10.3 Eosinophils % 2.7 Basophils % 0.4 Nucleated Red Blood Cells % 0.0 Immature Granulocytes # 0.100 H Neutrophils # 5.4 Lymphocytes # 0.5 L Monocytes # 0.7 Eosinophils # 0.2 Basophils # 0.0 Nucleated Red Blood Cells # 0.0 Sodium Level 137 Potassium Level 4.3 Chloride Level 101 Carbon Dioxide Level 28 Anion Gap 8 Blood Urea Nitrogen 23 H Creatinine 1.25 H Est Glomerular Filtrat Rate mL/min 59 L Glucose Level 101 Calcium Level 9.0 Medications Medication Current Medications Metoprolol Tartrate (Lopressor) 5 mg Q4H PRN IV HR>110 HOld SBP<100 Last administered on 02/18/19 18:53; Admin Dose 5 MG; Start 01/23/19 at 20:30 Levalbuterol (Xopenex Neb) 0.63 mg Q6H RESP THERAPY HHN Last administered on 02/25/19 07:33; Admin Dose 0.63 MG; Start 01/24/19 at 23:30 Acetaminophen (Tylenol Tab) 650 mg Q6H PRN PO MILD PAIN(1-3)OR ELEVATED TEMP Last administered on 02/10/19 21:54; Admin Dose 650 MG; Start 01/29/19 at 23:30 Al Hydrox/Mg Hydrox/Simethicone (Mag-Al Plus) 30 ml Q4H PRN PO GASTROINTESTINAL UPSET Last administered on 01/30/19at 18:39; Admin Dose 30 ML; Start 01/29/19 at 23:30 Atenolol (Tenormin) 50 mg BID PO Last administered on 02/25/19 08:34; Admin Dose 50 MG; Start 01/30/19 at 21:00 Morphine Sulfate (morphine) 2 mg Q2H PRN IV PAIN LEVEL 6-10; Start 02/11/19 at 16:30 Acetaminophen/ Hydrocodone Bitart ([place] (5/325)) 1 tab Q6H PRN PO PAIN LEVEL 6-10; Start 02/11/19 at 16:30 Fluconazole 100 ml @ 100 mls/hr Q24H IVPB Last administered on 02/24/19 12:18; Admin Dose 100 MLS/HR; Start 02/12/19 at 12:30 Enoxaparin Sodium (Lovenox) 80 mg BID SC Last administered on 02/25/19 08:56; Admin Dose 80 MG; Start 02/16/19 at 21:00 Diltiazem HCl (Cardizem Cd) 120 mg BID PO Last administered on 02/25/19 08:31; Admin Dose 120 MG; Start 02/18/19 at 21:00 Loperamide HCl (Imodium Cap) 4 mg QID PO Last administered on 02/25/19 08:29; Admin Dose 4 MG; Start 02/22/19 at 13:00 Ondansetron HCl (Zofran Inj) 4 mg Q6H PRN IV NAUSEA AND/OR VOMITING Last admin istered on 02/24/19 18:23; Admin Dose 4 MG; Start 02/22/19 at 16:00 Diagnostic Test (Pha) (Accu-Chek) 1 ea Q12 XX Last administered on 02/25/19 08:56; Admin Dose 1 EA; Start 02/24/19 at 09:00 Metronidazole 100 ml @ 100 mls/hr Q8 IVPB Last administered on 02/25/19 06:48; Admin Dose 100 MLS/HR; Start 02/24/19 at 22:00 Cefepime HCl 50 ml @ 100 mls/hr Q12 IVPB Last administered on 02/25/19 08:29; Admin Dose 100 MLS/HR; Start 02/24/19 at 21:00 Ann FERNANDEZ February 25, 2019 11:59
--- NOTE | 2019-02-25 12:11 | CONS ---
Assessment/Plan Assessment/Plan Hospital Course (Demo Recall) # sepsis, respiratory - sepsis due to complicated intra-abdominal infection and pneumonia, resolved - recurrent pleural effusion, follow up chest US on 02/17/2019 showed small R sided effusion - congested cough probably due to pleural effusion and fluid overload, influenza AB negative on 02/17/2019. Improving and stable on room air - R pleural effusion, exudative process, parapneumonic effusion LDH 1601 protein 3.2, no e/o malignancy on cytology - s/p R sided thoracentesis on 02/05/2019 - VIJAY # GI, onc - s/p ex lap, washout of abdominal abscess, CLEVE, diverting loop ileostomy on 02/11/2019 - s/p open Reagan reversal and colorectal low pelvic anastomosis, segmental partial colectomy, and open incarcerated incisional and parastomal hernia repairs with mesh by Dr. Art on 01/21/2019 - thrush, resolving - follow up CT on 02/04/2019 did not identify definite point of leak--> anastomotic leak was identified on gastograffin - s/p CT guided drainage of abscess in LLQ on 02/01/2019 - abdominal wound culture 01/30/19 and abscess culture 01/31/19 grew pseudomonas, joseline albicans and glabrata - s/p colostomy reversal - stage III sigmoid colon cancer, status post prior colectomy/colostomy and chem o in 2017 # renal, cardiovascular - recurrent acute kidney injury on chronic kidney disease - acute on chronic diastolic CHF, improved - atrial fibrillation with RVR, converted to SR - Hx hypertension - Hx left upper extremity DVT - superficial thrombus in R cephalic vein in the forearm and in L cephalic vein in the antecubital fossa as visualized on NOY 02/05/2019 # other conditions - R conjunctivitis, resolved after neomycin eye drop x 7 days recommendations: - await abdominal fluid drainage for C&S ; nursing order placed - Change Ceftriaxone (02/21/2019-) back to Cefepime (02/24/2019-) to cover possible recurrent Pseudomonas infection - Restart IV metronidazole (02/24/2019-) for anaerobic coverage - Continue fluconazole (01/30/2019-) due to recent Joseline infection - DC nystatin (02/12/2019-) as oral thrush has resolved - Ordered repeat 12 lead EKG to evaluate for QT prolongation (QTc 486 on 01/24/2019). Consideration of de-escalating to Cipro, but this has interaction with Fluconazole and Lipitor for risk of QT prolongation. --repeat read appears improved - Monitor renal function - We recommend continued antibiotics until repeat imaging shows resolution of i ntra-abdominal fluid collection. Antibiotics to be adjusted based on above findings. - a consideration of procalcitonin serially in days prior to abx cessation should be entertained - Of note: Pt previously took meropenem (01/30/2019-02/03/2019), metronidazole (02/04/2019-02/16/2019) and cefepime (02/04/2019-02/18/2019) - Pt and his family need education on ileostomy care Consultation Date/Type/Reason Admit Date/Time Jan 21, 2019 at 06:18 Initial Consult Date 01/30/19 Type of Consult ID Requesting Provider: ODELL PACHECO Date/Time of Note DATE: 02/25/19 TIME: 11:59 24 HR Interval Summary Free Text/Dictation no further fevers recorded in emr. d/w PT Elena and nurse Kraig. Exam/Review of Systems Exam Vitals Vital Signs Date Temp Pulse Resp B/P (MAP) Pulse Ox O2 O2 Flow FiO2 Time Delivery Rate 02/25/19 98.6 67 16 121/70 94 11:13 (87) 02/25/19 21 07:34 02/23/19 Room Air 04:04 Intake and Output 02/24/19 02/24/19 02/25/19 1515:00 23:00 07:00 IntakeIntake Total 100 ml 2400 ml 800 ml OutputOutput Total 500 ml 1210 ml BalanceBalance 100 ml 1900 ml -410 ml Constitutional: alert, oriented Head: normocephalic Eyes: EOMI Neck: supple Respiratory: clear to auscultation Cardiovascular: regular rate and rhythm Gastrointestinal: soft Results Result Diagram: 02/25/19 0653 02/25/19 0653 Results 24hrs Laboratory Tests Test 02/24/19 22:03 02/25/19 06:53 02/25/19 08:48 Bedside Glucose 176 125 White Blood Count 6.9 # Red Blood Count 2.91 L Hemoglobin 8.4 L Hematocrit 26.7 L Mean Corpuscular Volume 91.8 Mean Corpuscular Hemoglobin 28.9 L Mean Corpuscular Hemoglobin Concent 31.5 L Red Cell Distribution Width 13.5 Platelet Count 292 # Mean Platelet Volume 11.0 H Immature Granulocytes % 1.400 H Neutrophils % 78.4 H Lymphocytes % 6.8 L Monocytes % 10.3 Eosinophils % 2.7 Basophils % 0.4 Nucleated Red Blood Cells % 0.0 Immature Granulocytes # 0.100 H Neutrophils # 5.4 Lymphocytes # 0.5 L Monocytes # 0.7 Eosinophils # 0.2 Basophils # 0.0 Nucleated Red Blood Cells # 0.0 Sodium Level 137 Potassium Level 4.3 Chloride Level 101 Carbon Dioxide Level 28 Anion Gap 8 Blood Urea Nitrogen 23 H Creatinine 1.25 H Est Glomerular Filtrat Rate mL/min 59 L Glucose Level 101 Calcium Level 9.0 Medications Medication Current Medications Metoprolol Tartrate (Lopressor) 5 mg Q4H PRN IV HR>110 HOld SBP<100 Last administered on 02/18/19 18:53; Admin Dose 5 MG; Start 01/23/19 at 20:30 Levalbuterol (Xopenex Neb) 0.63 mg Q6H RESP THERAPY HHN Last administered on 02/25/19 07:33; Admin Dose 0.63 MG; Start 01/24/19 at 23:30 Acetaminophen (Tylenol Tab) 650 mg Q6H PRN PO MILD PAIN(1-3)OR ELEVATED TEMP Last administered on 02/10/19at 21:54; Admin Dose 650 MG; Start 01/29/19 at 23:30 Al Hydrox/Mg Hydrox/Simethicone (Mag-Al Plus) 30 ml Q4H PRN PO GASTROINTESTINAL UPSET Last administered on 01/30/19at 18:39; Admin Dose 30 ML; Start 01/29/19 at 23:30 Atenolol (Tenormin) 50 mg BID PO Last administered on 02/25/19 08:34; Admin Dose 50 MG; Start 01/30/19 at 21:00 Morphine Sulfate (morphine) 2 mg Q2H PRN IV PAIN LEVEL 6-10; Start 02/11/19 at 16:30 Acetaminophen/ Hydrocodone Bitart ([place] (5/325)) 1 tab Q6H PRN PO PAIN LEVEL 6-10; Start 02/11/19 at 16:30 Fluconazole 100 ml @ 100 mls/hr Q24H IVPB Last administered on 02/24/19 12:18; Admin Dose 100 MLS/HR; Start 02/12/19 at 12:30 Enoxaparin Sodium (Lovenox) 80 mg BID SC Last administered on 02/25/19 08:56; Admin Dose 80 MG; Start 02/16/19 at 21:00 Diltiazem HCl (Cardizem Cd) 120 mg BID PO Last administered on 02/25/19 08:31; Admin Dose 120 MG; Start 02/18/19 at 21:00 Loperamide HCl (Imodium Cap) 4 mg QID PO Last administered on 02/25/19 08:29; Admin Dose 4 MG; Start 02/22/19 at 13:00 Ondansetron HCl (Zofran Inj) 4 mg Q6H PRN IV NAUSEA AND/OR VOMITING Last administered on 02/24/19 18:23; Admin Dose 4 MG; Start 02/22/19 at 16:00 Diagnostic Test (Pha) (Accu-Chek) 1 ea Q12 XX Last administered on 02/25/19 08:56; Admin Dose 1 EA; Start 02/24/19 at 09:00 Metronidazole 100 ml @ 100 mls/hr Q8 IVPB Last administered on 02/25/19 06:48; Admin Dose 100 MLS/HR; Start 02/24/19 at 22:00 Cefepime HCl 50 ml @ 100 mls/hr Q12 IVPB Last administered on 02/25/19 08:29; Admin Dose 100 MLS/HR; Start 02/24/19 at 21:00 KURT SEO MD February 25, 2019 12:09
[2019-02-25] MEDS: FLUCONAZOLE 200 MG (PMX) 100 ML IVPB SCH (12:45)
[2019-02-25] MEDS: ONDANSETRON 4 MG INJ IV PRN (14:11)
--- NOTE | 2019-02-25 16:27 | PN ---
Date/Time of Note Date/Time of Note DATE: 02/25/19 TIME: 16:25 Assessment/Plan VTE Prophylaxis Risk score (from Ns)>0 risk: 12 SCD applied (from Ns): Yes Pharmacological prophylaxis: LMWH Lines/Catheters IV [facility]from [facility] [place] Urinary Cath still in place: No Assessment/Plan Hospital Course Patient remains hemodynamically stable, complains that after he eats he has output from ileostomy within 15 to [address] Art patient will be started on TPN and will go on TPN at home in addition to p.o. diet. Will obtain PICC line for TPN at home, discussed with case management. Assessment/Plan -Atrial fibrillation with rapid ventricular response, currently in sinus rhythm. Dr. Alejandro is following in cardiology consultation. Continue Lovenox and Cardizem, telemetry monitoring. -Anastomotic leak and intra-abdominal abscess, S/p CT guided drainage of abscess in LLQ on 02/01/2019. Status post laparotomy, washout of the peritoneal cavity, placement of a diverting loop ileostomy in right lower quadrant for protection of the anastomosis in the colorectal area on 02/11/[address] Art. Continue ceftriaxone per ID recommendation. -Sepsis secondary to intra-abdominal infection and pneumonia, resolved, s/p treatment with antibiotics. Dr. Bosch is following in infection disease consultation. -R pleural effusion, s/p R sided thoracentesis on 02/05/2019 -S/p open Reagan reversal and colorectal low pelvic anastomosis, segmental partial colectomy, and open incarcerated incisional and parastomal hernia repairs with mesh by Dr. Art on 01/21/2019. Continue [place] and Dilaudid as needed for pain and Zofran as needed for nausea. -Stage III sigmoid colon cancer, status post surgery and chemo in 2018. -Acute kidney injury on chronic kidney disease, monitor urine output BUN and creatinine. Dr. Stuart is following in nephrology consultation. -Acute on chronic diastolic CHF -Protein calorie malnutrition, improved. Patient required TPN which is currently stopped, patient tolerates a regular diet. -Obstructive sleep apnea -History of hypertension -History of left upper extremity DVT, status post bilateral upper extremity ultrasound on 02/05/2019: No sonographic evidence for bilateral upper extremity deep venous thrombosis. Superficial thrombus in the right cephalic vein in the forearm. Cephalic vein in the upper arm is patent. Superficial thrombus in the left cephalic vein in the antecubital fossa. Cephalic vein in the upper arm is patent. Further recommendations based on clinical course. Plan of care discussed with Dr. Fox. Result Diagram: 02/25/19 0653 02/25/19 0653 Results 24hrs Laboratory Tests Test 02/24/19 22:03 02/25/19 06:53 02/25/19 08:48 Bedside Glucose 176 125 White Blood Count 6.9 # Red Blood Count 2.91 L Hemoglobin 8.4 L Hematocrit 26.7 L Mean Corpuscular Volume 91.8 Mean Corpuscular Hemoglobin 28.9 L Mean Corpuscular Hemoglobin Concent 31.5 L Red Cell Distribution Width 13.5 Platelet Count 292 # Mean Platelet Volume 11.0 H Immature Granulocytes % 1.400 H Neutrophils % 78.4 H Lymphocytes % 6.8 L Monocytes % 10.3 Eosinophils % 2.7 Basophils % 0.4 Nucleated Red Blood Cells % 0.0 Immature Granulocytes # 0.100 H Neutrophils # 5.4 Lymphocytes # 0.5 L Monocytes # 0.7 Eosinophils # 0.2 Basophils # 0.0 Nucleated Red Blood Cells # 0.0 Sodium Level 137 Potassium Level 4.3 Chloride Level 101 Carbon Dioxide Level 28 Anion Gap 8 Blood Urea Nitrogen 23 H Creatinine 1.25 H Est Glomerular Filtrat Rate mL/min 59 L Glucose Level 101 Calcium Level 9.0 Exam/Review of Systems Exam Vitals Vital Signs Date Temp Pulse Resp B/P (MAP) Pulse Ox O2 O2 Flow FiO2 Time Delivery Rate 02/25/19 98.8 77 16 120/60 93 15:25 (80) 02/25/19 21 13:00 02/23/19 Room Air 04:04 Intake and Output 02/24/19 02/24/19 02/25/19 1515:00 23:00 07:00 IntakeIntake Total 100 ml 2400 ml 800 ml OutputOutput Total 500 ml 1210 ml BalanceBalance 100 ml 1900 ml -410 ml Exam Constitutional: alert, oriented Respiratory: clear to auscultation Cardiovascular: irregular rhythm Gastrointestinal: soft, other (Abdominal surgical incision, accordion drain) Extremities: normal pulses Neurological: nl mental status Results Results 24hrs Laboratory Tests Test 02/24/19 22:03 02/25/19 06:53 02/25/19 08:48 Bedside Glucose 176 125 White Blood Count 6.9 # Red Blood Count 2.91 L Hemoglobin 8.4 L Hematocrit 26.7 L Mean Corpuscular Volume 91.8 Mean Corpuscular Hemoglobin 28.9 L Mean Corpuscular Hemoglobin Concent 31.5 L Red Cell Distribution Width 13.5 Platelet Count 292 # Mean Platelet Volume 11.0 H Immature Granulocytes % 1.400 H Neutrophils % 78.4 H Lymphocytes % 6.8 L Monocytes % 10.3 Eosinophils % 2.7 Basophils % 0.4 Nucleated Red Blood Cells % 0.0 Immature Granulocytes # 0.100 H Neutrophils # 5.4 Lymphocytes # 0.5 L Monocytes # 0.7 Eosinophils # 0.2 Basophils # 0.0 Nucleated Red Blood Cells # 0.0 Sodium Level 137 Potassium Level 4.3 Chloride Level 101 Carbon Dioxide Level 28 Anion Gap 8 Blood Urea Nitrogen 23 H Creatinine 1.25 H Est Glomerular Filtrat Rate mL/min 59 L Glucose Level 101 Calcium Level 9.0 Medications Medication Current Medications Metoprolol Tartrate (Lopressor) 5 mg Q4H PRN IV HR>110 HOld SBP<100 Last administered on 02/18/19 18:53; Admin Dose 5 MG; Start 01/23/19 at 20:30 Levalbuterol (Xopenex Neb) 0.63 mg Q6H RESP THERAPY HHN Last administered on 02/25/19 13:00; Admin Dose 0.63 MG; Start 01/24/19 at 23:30 Acetaminophen (Tylenol Tab) 650 mg Q6H PRN PO MILD PAIN(1-3)OR ELEVATED TEMP Last administered on 02/10/19 21:54; Admin Dose 650 MG; Start 01/29/19 at 23:30 Al Hydrox/Mg Hydrox/Simethicone (Mag-Al Plus) 30 ml Q4H PRN PO GASTROINTESTINAL UPSET Last administered on 01/30/19 18:39; Admin Dose 30 ML; Start 01/29/19 at 23:30 Atenolol (Tenormin) 50 mg BID PO Last administered on 02/25/19 08:34; Admin Dose 50 MG; Start 01/30/19 at 21:00 Morphine Sulfate (morphine) 2 mg Q2H PRN IV PAIN LEVEL 6-10; Start 02/11/19 at 16:30 Acetaminophen/ Hydrocodone Bitart ([place] (5/325)) 1 tab Q6H PRN PO PAIN LEVEL 6-10; Start 02/11/19 at 16:30 Fluconazole 100 ml @ 100 mls/hr Q24H IVPB Last administered on 02/25/19 12:45; Admin Dose 100 MLS/HR; Start 02/12/19 at 12:30 Enoxaparin Sodium (Lovenox) 80 mg BID SC Last administered on 02/25/19 08:56; Admin Dose 80 MG; Start 02/16/19 at 21:00 Diltiazem HCl (Cardizem Cd) 120 mg BID PO Last administered on 02/25/19 08:31; Admin Dose 120 MG; Start 02/18/19 at 21:00 Loperamide HCl (Imodium Cap) 4 mg QID PO Last administered on 02/25/19 12:45; Admin Dose 4 MG; Start 02/22/19 at 13:00 Ondansetron HCl (Zofran Inj) 4 mg Q6H PRN IV NAUSEA AND/OR VOMITING Last administered on 02/25/19 14:11; Admin Dose 4 MG; Start 02/22/19 at 16:00 Diagnostic Test (Pha) (Accu-Chek) 1 ea Q12 XX Last administered on 02/25/19 08:56; Admin Dose 1 EA; Start 02/24/19 at 09:00 Metronidazole 100 ml @ 100 mls/hr Q8 IVPB Last administered on 02/25/19 14:11; Admin Dose 100 MLS/HR; Start 02/24/19 at 22:00 Cefepime HCl 50 ml @ 100 mls/hr Q12 IVPB Last administered on 02/25/19 08:29; Admin Dose 100 MLS/HR; Start 02/24/19 at 21:00 ODELL PACHECO February 25, 2019 16:27
[2019-02-25] MEDS ORDERED: LIDOCAINE 1% (MPF) 5 ML VIAL SC ONE (16:30)
[2019-02-25] MEDS ORDERED: *CONTINUE SAME TPN IV ONE (17:00)
[2019-02-25] MEDS ORDERED: GUAIFENESIN 20 MG/ML 5ML CUP PO PRN (17:00)
[2019-02-26] VITALS (10 sets, daily range): BP systolic 110–123; BP diastolic 62–66; PULSE 64–75; RESP 18–20
[2019-02-26] MEDS: metroNIDAZOLE 500 MG/NS (PMX) 100 ML IVPB SCH ×3 (06:23→21:56)
--- NOTE | 2019-02-26 08:53 | PN ---
DATE: 02/26/2019 SUBJECTIVE: The patient is stable, no events overnight. OBJECTIVE: VITAL SIGNS: Blood pressure is 110/62, pulse 64, respirations 20, temperature 99.2. HEENT: Head is normocephalic. NECK: Supple. HEART: Regular rate. LUNGS: Show diminished breath sounds at the base. ABDOMEN: Soft, nontender to palpation. Positive ileostomy. EXTREMITIES: Negative for clubbing, cyanosis, no edema. DERMATOLOGIC: No rashes. MUSCULOSKELETAL: No joint effusion. NEUROLOGIC: No change in exam. MEDICATIONS: Reviewed. LABORATORY DATA: Reviewed. ASSESSMENT AND PLAN: 1. Nonoliguric acute kidney injury with previous baseline creatinine of 0.7 mg/dL. Etiology of acut e kidney injury is secondary to volume depletion. Renal function is improved with IV fluids, continu e to monitor, continue supportive care. 2. Hypernatremia, improved. Continue to encourage free water intake. 3. Anemia. Monitor hemoglobin and hematocrit levels. 4. Mineral bone disorder. Monitor calcium and phosphorus levels. 5. Metabolic acidosis, resolved. 6. Anastomotic leak status post laparotomy with peritoneal washout and diverting ileostomy. 7. Sepsis secondary to intraabdominal infection, pneumonia, improving. The patient is completing an tibiotic course. 8. History of colon cancer, status post surgery and chemotherapy. 9. History of heart failure. 10. Lower extremity thrombus. 11. Atrial fibrillation. Continue medical management. Dictated By: SUSAN ZURITA DO NR/NTS Conf#: [id number] DID#: [id number] CC: JACOB FERNANDEZ MD; ANDREY ZHENG MD;*EndCC*
[2019-02-26] MEDS: CEFEPIME 2GM/50 ML (PMX) 50 ML IVPB SCH ×2 (09:06→20:46)
[2019-02-26] MEDS: ACCU-CHEK XX SCH ×2 (09:12→21:10)
[2019-02-26] MEDS: DILTIAZEM (CD) 120 MG CAP PO SCH ×2 (09:12→20:46)
[2019-02-26] MEDS: LOPERAMIDE 2 MG CAP PO SCH ×4 (09:12→20:45)
[2019-02-26] MEDS: ATENOLOL 50 MG TAB PO SCH ×2 (09:12→20:46)
[2019-02-26] MEDS: ENOXAPARIN 80 MG/0.8 ML SYG SC SCH ×2 (09:13→21:10)
--- NOTE | 2019-02-26 10:43 | CONS ---
Consult Date/Type/Reason Admit Date/Time Jan 21, 2019 at 06:18 Initial Consult Date Requesting Provider: ODELL PACHECO Date/Time of Note DATE: 02/26/19 TIME: 10:42 Subjective NO acute events - pt comfortable - no CP now - PICC line planned. ROS: No fever, no chills, no nausea, no vomiting, no diarrhea/constipation - stable abd discomfort No recent weight changes No chest pain, no PND, no orthopnea No dizziness, blurred vision No thirst, no heat or cold intolerance Objective Vitals Vital Signs Date Temp Pulse Resp B/P (MAP) Pulse Ox O2 O2 Flow FiO2 Time Delivery Rate 02/26/19 67 08:01 02/26/19 99.2 20 110/62 93 Room Air 07:41 (78) 02/25/19 21 20:56 Intake and Output 02/25/19 02/25/19 02/26/19 1515:00 23:00 07:00 IntakeIntake Total 1250 ml 1000 ml OutputOutput Total 0 ml 2800 ml 1800 ml BalanceBalance 0 ml -1550 ml -800 ml Exam General: WN/WD/NAD, AOx 3 HEENT: Unicetric/atraumatic/EOMI (follow commands) NECK: JVD elevated, no thyromegaly Lymph: no lymphadenopathy HEART: regular with no S3, II/ systolic murmur at apex LUNGS: Coarse sounds ABD: soft, NT, ND, +BS - post op : Intact Neuro: non focal SKIN: chronic changes EXT: trace edema Results/Medications Result Diagram: 02/26/19 0620 02/26/19 0620 Results 24 hrs Laboratory Tests Test 02/25/19 21:16 02/26/19 06:20 02/26/19 09:04 Bedside Glucose 132 153 White Blood Count 6.4 Red Blood Count 3.00 L Hemoglobin 8.5 L Hematocrit 26.8 L Mean Corpuscular Volume 89.3 Mean Corpuscular Hemoglobin 28.3 L Mean Corpuscular Hemoglobin Concent 31.7 L Red Cell Distribution Width 13.6 Platelet Count 292 Mean Platelet Volume 11.2 H Immature Granulocytes % 1.200 H Neutrophils % 79.5 H Lymphocytes % 4.8 L Monocytes % 11.4 H Eosinophils % 2.8 Basophils % 0.3 Nucleated Red Blood Cells % 0.0 Immature Granulocytes # 0.080 H Neutrophils # 5.1 Lymphocytes # 0.3 L Monocytes # 0.7 Eosinophils # 0.2 Basophils # 0.0 Nucleated Red Blood Cells # 0.0 Sodium Level 134 L Potassium Level 4.4 Chloride Level 102 Carbon Dioxide Level 26 Anion Gap 6 Blood Urea Nitrogen 20 Creatinine 1.24 Est Glomerular Filtrat Rate mL/min 59 L Glucose Level 98 Calcium Level 9.3 Phosphorus Level 4.2 Magnesium Level 1.8 Home Meds Active Scripts Carvedilol* (Carvedilol*) 25 Mg Tablet, 25 MG PO BID for 30 Days, TAB Prov:ODELL PACHECO 01/15/18 Furosemide* (Furosemide*) 20 Mg Tablet, 20 MG PO DAILY for 30 Days, TAB Prov:ODELL PACHECO 01/15/18 Reported Medications Apixaban* (Eliquis*) 5 Mg Tablet, 5 MG PO BID, TAB 11/02/18 Losartan Potassium* (Losartan Potassium*) 100 Mg Tablet, 100 MG PO DAILY, TAB 11/02/18 Nifedipine* (Nifedipine ER*) 60 Mg Tablet.sa, 60 MG PO BID, TAB.SA 11/02/18 Atorvastatin Calcium* (Atorvastatin Calcium*) 20 Mg Tablet, 20 MG PO QHS, #30 TAB 01/07/18 Medications Current Medications Metoprolol Tartrate (Lopressor) 5 mg Q4H PRN IV HR>110 HOld SBP<100 Last administered on 02/18/19 18:53; Admin Dose 5 MG; Start 01/23/19 at 20:30 Acetaminophen (Tylenol Tab) 650 mg Q6H PRN PO MILD PAIN(1-3)OR ELEVATED TEMP Last administered on 02/10/19at 21:54; Admin Dose 650 MG; Start 01/29/19 at 23:30 Al Hydrox/Mg Hydrox/Simethicone (Mag-Al Plus) 30 ml Q4H PRN PO GASTROINTESTINAL UPSET Last administered on 01/30/19at 18:39; Admin Dose 30 ML; Start 01/29/19 at 23:30 Atenolol (Tenormin) 50 mg BID PO Last administered on 02/26/19at 09:12; Admin Dose 50 MG; Start 01/30/19 at 21:00 Morphine Sulfate (morphine) 2 mg Q2H PRN IV PAIN LEVEL 6-10; Start 02/11/19 at 16:30 Acetaminophen/ Hydrocodone Bitart ([place] (5/325)) 1 tab Q6H PRN PO PAIN LEVEL 6-10; Start 02/11/19 at 16:30 Fluconazole 100 ml @ 100 mls/hr Q24H IVPB Last administered on 02/25/19 12:45; Admin Dose 100 MLS/HR; Start 02/12/19 at 12:30 Enoxaparin Sodium (Lovenox) 80 mg BID SC Last administered on 02/26/19 09:13; Admin Dose 80 MG; Start 02/16/19 at 21:00 Diltiazem HCl (Cardizem Cd) 120 mg BID PO Last administered on 02/26/19 09:12; Admin Dose 120 MG; Start 02/18/19 at 21:00 Loperamide HCl (Imodium Cap) 4 mg QID PO Last administered on 02/26/19 09:12; Admin Dose 4 MG; Start 02/22/19 at 13:00 Ondansetron HCl (Zofran Inj) 4 mg Q6H PRN IV NAUSEA AND/OR VOMITING Last administered on 02/25/19 14:11; Admin Dose 4 MG; Start 02/22/19 at 16:00 Diagnostic Test (Pha) (Accu-Chek) 1 ea Q12 XX Last administered on 02/26/19 09:12; Admin Dose 1 EA; Start 02/24/19 at 09:00 Metronidazole 100 ml @ 100 mls/hr Q8 IVPB Last administered on 02/26/19 06:23; Admin Dose 100 MLS/HR; Start 02/24/19 at 22:00 Cefepime HCl 50 ml @ 100 mls/hr Q12 IVPB Last administered on 02/26/19 09:06; Admin Dose 100 MLS/HR; Start 02/24/19 at 21:00 Total Parenteral Nutrition 1,000 ml @ 0 mls/hr Q0M IV ; Start 02/25/19 at 16:48; Status UNV Guaifenesin (Robitussin Liquid Cup) 100 mg Q4H PRN PO COUGH Last administered on 02/25/19at 17:58; Admin Dose 100 MG; Start 02/25/19 at 17:00 Assessment/Plan Hospital Course (Demo Recall) 1. A. fib - rate cntrolled now- had few episodes of RVR, better now - CONVERTED TO SINUS. On tele - no tachy- brday noted. Remains sinus at 80s now. Remains in sinus. 2. Possible congestive heart failure by chest x-ray with the patient having the onset of acute renal failure at this time. Improved CHF. Better. Keep euvolemic. Stable. Better now. Euvolemic by exam. BETTER fluid status. 3. Hypertension, mildly elevated. BP well optimized nw. Will re-check post am meds. Treated. In [place] now. 4. Postoperative status post reversal colostomy - GI team follows,. Con't to recover. On therapy. Surgical team follows. Drains. PICC line planned. 5. Renal failure, acute.-improved now - renal team follows. CR con't to improve. 6. History of colon carcinoma status post prior colectomy with colostomy - now with therapy post op. Defer to surgical team. 7. Leukocytosis. On anti-Bx, better overall. SUSSY ANTHONY MD February 26, 2019 10:43
--- NOTE | 2019-02-26 11:20 | CONS ---
Assessment/Plan Assessment/Plan Hospital Course (Demo Recall) # sepsis, respiratory - sepsis due to complicated intra-abdominal infection and pneumonia, resolved - recurrent pleural effusion, follow up chest US on 02/17/2019 showed small R sided effusion - congested cough probably due to pleural effusion and fluid overload, influenza AB negative on 02/17/2019. Improving and stable on room air - R pleural effusion, exudative process, parapneumonic effusion LDH 1601 protein 3.2, no e/o malignancy on cytology - s/p R sided thoracentesis on 02/05/2019 - VIJAY # GI, onc - s/p ex lap, washout of abdominal abscess, CLEVE, diverting loop ileostomy on 02/11/2019 - s/p open Reagan reversal and colorectal low pelvic anastomosis, segmental partial colectomy, and open incarcerated incisional and parastomal hernia repairs with mesh by Dr. Art on 01/21/2019 - thrush, resolving - follow up CT on 02/04/2019 did not identify definite point of leak--> anastomotic leak was identified on gastograffin - s/p CT guided drainage of abscess in LLQ on 02/01/2019 - abdominal wound culture 01/30/19 and abscess culture 01/31/19 grew pseudomonas, joseline albicans and glabrata - s/p colostomy reversal - stage III sigmoid colon cancer, status post prior colectomy/colostomy and chem o in 2017 # renal, cardiovascular - recurrent acute kidney injury on chronic kidney disease - acute on chronic diastolic CHF, improved - atrial fibrillation with RVR, converted to SR - Hx hypertension - Hx left upper extremity DVT - superficial thrombus in R cephalic vein in the forearm and in L cephalic vein in the antecubital fossa as visualized on NOY 02/05/2019 # other conditions - R conjunctivitis, resolved after neomycin eye drop x 7 days Recommendations: - F/u abdominal fluid drainage for C&S (prelim GNR and staph species) - Continue Cefepime (02/24/2019-) to cover possible recurrent Pseudomonas infection - s/p Ceftriaxone (02/21/2019-02/24/19) - Continue IV metronidazole (02/24/2019-) for anaerobic coverage - Continue fluconazole (01/30/2019-) due to recent Joseline infection - Ordered repeat 12 lead EKG to evaluate for QT prolongation (QTc 486 on 01/24/2019). Consideration of de-escalating to Cipro, but this has interaction with Fluconazole and Lipitor for risk of QT prolongation. - repeat read appears improved - Monitor renal function - We recommend continued antibiotics until repeat imaging shows resolution of intra-abdominal fluid collection. Antibiotics to be adjusted based on above findings. - Consider repeat CT Abd/pelvis - a consideration of procalcitonin serially in days prior to abx cessation should be entertained - Of note: Pt previously took meropenem (01/30/2019-02/03/2019), metronidazole (02/04/2019-02/16/2019) and cefepime (02/04/2019-02/18/2019) - Pt and his family need education on ileostomy care Plan was d/w patient, and with Dr. Vázquez via [employer] messaging. Thank you Consultation Date/Type/Reason Admit Date/Time Jan 21, 2019 at 06:18 Initial Consult Date 01/30/19 Type of Consult ID Requesting Provider: ODELL PACHECO Date/Time of Note DATE: 02/26/19 TIME: 11:16 24 HR Interval Summary Free Text/Dictation The patient has remained afebrile, wbc 6.4. Obtained PICC line today - was being completed when I entered the room. Detailed Summary Eyes: no complaints ENT: no complaints Respiratory: no complaints Cardiovascular: no complaints Gastrointestinal: flatus, passing stool; No pain, No decreased appetite, No nausea, No vomiting Genitourinary: no complaints Musculoskeletal: no complaints Skin: other (abdominal incision site and drain) Neurologic: no complaints Endocrine: no complaints Lymphatic: no complaints Psychological: no complaints, nl mood/affect Exam/Review of Systems Exam Vitals Vital Signs Date Temp Pulse Resp B/P (MAP) Pulse Ox O2 O2 Flow FiO2 Time Delivery Rate 02/26/19 67 08:01 02/26/19 99.2 20 110/62 93 Room Air 07:41 (78) 02/25/19 21 20:56 Intake and Output 02/25/19 02/25/19 02/26/19 1515:00 23:00 07:00 IntakeIntake Total 1250 ml 1000 ml OutputOutput Total 0 ml 2800 ml 1800 ml BalanceBalance 0 ml -1550 ml -800 ml Allergies Coded Allergies No Known Allergy (Unverified01/30/19) . Exam Constitutional: alert, oriented, well developed (laying flat in bed while PICC RN completes PICC dressing - line was just inserted) Psych: no complaints, nl mood/affect Head: normocephalic, atraumatic Eyes: nl conjunctiva, nl lids, nl sclera ENMT: nl external ears & nose, nl nasal mucosa & septum, mucosa pink and moist Neck: supple, non-tender, other (no swelling) Respiratory: clear to auscultation, normal air movement Cardiovascular: regular rate and rhythm, nl pulses Gastrointestinal: soft, distended, surgical scars (mid abdominal incision site covered with a c/d/i abd pad), other (+RLQ ileostomy bag with yellowish liquid stool; LLQ drain with brownish purulent drainage) Musculoskeletal: nl extremities to inspection Extremities: normal pulses Neurological: [employer] II-XII intact, nl mental status, nl speech, nl strength Skin: nl turgor; No rash or lesions Results Result Diagram: 02/26/19 0620 02/26/19 0620 Results 24hrs Laboratory Tests Test 02/25/19 21:16 02/26/19 06:20 02/26/19 09:04 Bedside Glucose 132 153 White Blood Count 6.4 Red Blood Count 3.00 L Hemoglobin 8.5 L Hematocrit 26.8 L Mean Corpuscular Volume 89.3 Mean Corpuscular Hemoglobin 28.3 L Mean Corpuscular Hemoglobin Concent 31.7 L Red Cell Distribution Width 13.6 Platelet Count 292 Mean Platelet Volume 11.2 H Immature Granulocytes % 1.200 H Neutrophils % 79.5 H Lymphocytes % 4.8 L Monocytes % 11.4 H Eosinophils % 2.8 Basophils % 0.3 Nucleated Red Blood Cells % 0.0 Immature Granulocytes # 0.080 H Neutrophils # 5.1 Lymphocytes # 0.3 L Monocytes # 0.7 Eosinophils # 0.2 Basophils # 0.0 Nucleated Red Blood Cells # 0.0 Sodium Level 134 L Potassium Level 4.4 Chloride Level 102 Carbon Dioxide Level 26 Anion Gap 6 Blood Urea Nitrogen 20 Creatinine 1.24 Est Glomerular Filtrat Rate mL/min 59 L Glucose Level 98 Calcium Level 9.3 Phosphorus Level 4.2 Magnesium Level 1.8 Imaging Imaging CXR 02/25/19 IMPRESSION: Cardiomegaly. Mild central pulmonary vascular congestion and interstitial prominence in both lungs. Patchy infiltrates throughout the right lung with moderate right pleural effusion. Atelectasis in the left lower lobe with small left pleural effusion. Medications Medication Current Medications Metoprolol Tartrate (Lopressor) 5 mg Q4H PRN IV HR>110 HOld SBP<100 Last administered on 02/18/19 18:53; Admin Dose 5 MG; Start 01/23/19 at 20:30 Acetaminophen (Tylenol Tab) 650 mg Q6H PRN PO MILD PAIN(1-3)OR ELEVATED TEMP Last administered on 02/10/19 21:54; Admin Dose 650 MG; Start 01/29/19 at 23:30 Al Hydrox/Mg Hydrox/Simethicone (Mag-Al Plus) 30 ml Q4H PRN PO GASTROINTESTINAL UPSET Last administered on 01/30/19 18:39; Admin Dose 30 ML; Start 01/29/19 at 23:30 Atenolol (Tenormin) 50 mg BID PO Last administered on 02/26/19 09:12; Admin Dose 50 MG; Start 01/30/19 at 21:00 Morphine Sulfate (morphine) 2 mg Q2H PRN IV PAIN LEVEL 6-10; Start 02/11/19 at 16:30 Acetaminophen/ Hydrocodone Bitart ([place] (5/325)) 1 tab Q6H PRN PO PAIN LEVEL 6-10; Start 02/11/19 at 16:30 Fluconazole 100 ml @ 100 mls/hr Q24H IVPB Last administered on 02/25/19 12:45; Admin Dose 100 MLS/HR; Start 02/12/19 at 12:30 Enoxaparin Sodium (Lovenox) 80 mg BID SC Last administered on 02/26/19 09:13; Admin Dose 80 MG; Start 02/16/19 at 21:00 Diltiazem HCl (Cardizem Cd) 120 mg BID PO Last administered on 02/26/19 09:12; Admin Dose 120 MG; Start 02/18/19 at 21:00 Loperamide HCl (Imodium Cap) 4 mg QID PO Last administered on 02/26/19 09:12; Admin Dose 4 MG; Start 02/22/19 at 13:00 Ondansetron HCl (Zofran Inj) 4 mg Q6H PRN IV NAUSEA AND/OR VOMITING Last administered on 5/13/19at 14:11; Admin Dose 4 MG; Start 02/22/19 at 16:00 Diagnostic Test (Pha) (Accu-Chek) 1 ea Q12 XX Last administered on 02/26/19 09:12; Admin Dose 1 EA; Start 02/24/19 at 09:00 Metronidazole 100 ml @ 100 mls/hr Q8 IVPB Last administered on 02/26/19 06:23; Admin Dose 100 MLS/HR; Start 02/24/19 at 22:00 Cefepime HCl 50 ml @ 100 mls/hr Q12 IVPB Last administered on 02/26/19 09:06; Admin Dose 100 MLS/HR; Start 02/24/19 at 21:00 Total Parenteral Nutrition 1,000 ml @ 0 mls/hr Q0M IV ; Start 02/25/19 at 16:48; Status UNV Guaifenesin (Robitussin Liquid Cup) 100 mg Q4H PRN PO COUGH Last administered on 02/25/19 17:58; Admin Dose 100 MG; Start 02/25/19 at 17:00 JUSTYN WORLEY [employer] February 26, 2019 11:20
[2019-02-26] MEDS: FLUCONAZOLE 200 MG (PMX) 100 ML IVPB SCH (12:12)
--- NOTE | 2019-02-26 14:48 | PN ---
Date/Time of Note Date/Time of Note DATE: 02/26/19 TIME: 14:45 Assessment/Plan VTE Prophylaxis Risk score (from Nsg)>0 risk: 6 SCD applied (from Nsg): Yes Pharmacological prophylaxis: LMWH Lines/Catheters IV Catheter Type (from Nrsg): Saline Lock Urinary Cath still in place: No Assessment/Plan Hospital Course Patient is undergoing PICC line placement for TPN at home. Patient will be started on TPN in house and continued at home. Follow-up on intra-abdominal drain culture for final recommendations for antibiotics. Patient is currently on cefepime and Flagyl. Assessment/Plan -Atrial fibrillation with rapid ventricular response, currently in sinus rhythm. Dr. Alejandro is following in cardiology consultation. Continue Lovenox and Cardizem, telemetry monitoring. -Anastomotic leak and intra-abdominal abscess, S/p CT guided drainage of abscess in LLQ on 02/01/2019. Status post laparotomy, washout of the peritoneal cavity, placement of a diverting loop ileostomy in right lower quadrant for protection of the anastomosis in the colorectal area on 02/11/[address] Art. Continue ceftriaxone per ID recommendation. -Sepsis secondary to intra-abdominal infection and pneumonia, resolved, s/p treatment with antibiotics. Dr. Bosch is following in infection disease consultation. -R pleural effusion, s/p R sided thoracentesis on 02/05/2019 -S/p open Reagan reversal and colorectal low pelvic anastomosis, segmental partial colectomy, and open incarcerated incisional and parastomal hernia repairs with mesh by Dr. Art on 01/21/2019. Continue [place] and Dilaudid as needed for pain and Zofran as needed for nausea. -Stage III sigmoid colon cancer, status post surgery and chemo in 2018. -Acute kidney injury on chronic kidney disease, monitor urine output BUN and creatinine. Dr. Stuart is following in nephrology consultation. -Acute on chronic diastolic CHF -Protein calorie malnutrition, improved. Patient required TPN which is currently stopped, patient tolerates a regular diet. -Obstructive sleep apnea -History of hypertension -History of left upper extremity DVT, status post bilateral upper extremity ultrasound on 02/05/2019: No sonographic evidence for bilateral upper extremity deep venous thrombosis. Superficial thrombus in the right cephalic vein in the forearm. Cephalic vein in the upper arm is patent. Superficial thrombus in the left cephalic vein in the antecubital fossa. Cephalic vein in the upper arm is patent. Further recommendations based on clinical course. Plan of care discussed with Dr. Fox. Result Diagram: 02/26/19 0620 02/26/19 0620 Results 24hrs Laboratory Tests Test 02/25/19 21:16 02/26/19 06:20 02/26/19 09:04 Bedside Glucose 132 153 White Blood Count 6.4 Red Blood Count 3.00 L Hemoglobin 8.5 L Hematocrit 26.8 L Mean Corpuscular Volume 89.3 Mean Corpuscular Hemoglobin 28.3 L Mean Corpuscular Hemoglobin Concent 31.7 L Red Cell Distribution Width 13.6 Platelet Count 292 Mean Platelet Volume 11.2 H Immature Granulocytes % 1.200 H Neutrophils % 79.5 H Lymphocytes % 4.8 L Monocytes % 11.4 H Eosinophils % 2.8 Basophils % 0.3 Nucleated Red Blood Cells % 0.0 Immature Granulocytes # 0.080 H Neutrophils # 5.1 Lymphocytes # 0.3 L Monocytes # 0.7 Eosinophils # 0.2 Basophils # 0.0 Nucleated Red Blood Cells # 0.0 Sodium Level 134 L Potassium Level 4.4 Chloride Level 102 Carbon Dioxide Level 26 Anion Gap 6 Blood Urea Nitrogen 20 Creatinine 1.24 Est Glomerular Filtrat Rate mL/min 59 L Glucose Level 98 Calcium Level 9.3 Phosphorus Level 4.2 Magnesium Level 1.8 Exam/Review of Systems Exam Vitals Vital Signs Date Temp Pulse Resp B/P (MAP) Pulse Ox O2 O2 Flow FiO2 Time Delivery Rate 02/26/19 71 12:11 02/26/19 98.8 20 110/65 92 Room Air 12:06 (80) 02/25/19 21 20:56 Intake and Output 02/25/19 02/25/19 02/26/19 1414:59 22:59 06:59 IntakeIntake Total 1250 ml OutputOutput Total 0 ml 2800 ml BalanceBalance 0 ml -1550 ml Exam Constitutional: alert, oriented Respiratory: clear to auscultation Cardiovascular: regular rhythm Gastrointestinal: soft, other (Abdominal surgical incision, accordion drain) Extremities: normal pulses Neurological: nl mental status Results Results 24hrs Laboratory Tests Test 02/25/19 21:16 02/26/19 06:20 02/26/19 09:04 Bedside Glucose 132 153 White Blood Count 6.4 Red Blood Count 3.00 L Hemoglobin 8.5 L Hematocrit 26.8 L Mean Corpuscular Volume 89.3 Mean Corpuscular Hemoglobin 28.3 L Mean Corpuscular Hemoglobin Concent 31.7 L Red Cell Distribution Width 13.6 Platelet Count 292 Mean Platelet Volume 11.2 H Immature Granulocytes % 1.200 H Neutrophils % 79.5 H Lymphocytes % 4.8 L Monocytes % 11.4 H Eosinophils % 2.8 Basophils % 0.3 Nucleated Red Blood Cells % 0.0 Immature Granulocytes # 0.080 H Neutrophils # 5.1 Lymphocytes # 0.3 L Monocytes # 0.7 Eosinophils # 0.2 Basophils # 0.0 Nucleated Red Blood Cells # 0.0 Sodium Level 134 L Potassium Level 4.4 Chloride Level 102 Carbon Dioxide Level 26 Anion Gap 6 Blood Urea Nitrogen 20 Creatinine 1.24 Est Glomerular Filtrat Rate mL/min 59 L Glucose Level 98 Calcium Level 9.3 Phosphorus Level 4.2 Magnesium Level 1.8 Medications Medication Current Medications Metoprolol Tartrate (Lopressor) 5 mg Q4H PRN IV HR>110 HOld SBP<100 Last administered on 02/18/19at 18:53; Admin Dose 5 MG; Start 01/23/19 at 20:30 Acetaminophen (Tylenol Tab) 650 mg Q6H PRN PO MILD PAIN(1-3)OR ELEVATED TEMP Last administered on 02/10/19at 21:54; Admin Dose 650 MG; Start 01/29/19 at 23:30 Al Hydrox/Mg Hydrox/Simethicone (Mag-Al Plus) 30 ml Q4H PRN PO GASTROINTESTINAL UPSET Last administered on 01/30/19at 18:39; Admin Dose 30 ML; Start 01/29/19 at 23:30 Atenolol (Tenormin) 50 mg BID PO Last administered on 02/26/19at 09:12; Admin Dose 50 MG; Start 01/30/19 at 21:00 Morphine Sulfate (morphine) 2 mg Q2H PRN IV PAIN LEVEL 6-10; Start 02/11/19 at 16:30 Acetaminophen/ Hydrocodone Bitart ([place] (5/325)) 1 tab Q6H PRN PO PAIN LEVEL 6-10; Start 02/11/19 at 16:30 Fluconazole 100 ml @ 100 mls/hr Q24H IVPB Last administered on 02/26/19 12:12; Admin Dose 100 MLS/HR; Start 02/12/19 at 12:30 Enoxaparin Sodium (Lovenox) 80 mg BID SC Last administered on 02/26/19 09:13; Admin Dose 80 MG; Start 02/16/19 at 21:00 Diltiazem HCl (Cardizem Cd) 120 mg BID PO Last administered on 02/26/19 09:12; Admin Dose 120 MG; Start 02/18/19 at 21:00 Loperamide HCl (Imodium Cap) 4 mg QID PO Last administered on 02/26/19 12:12; Admin Dose 4 MG; Start 02/22/19 at 13:00 Ondansetron HCl (Zofran Inj) 4 mg Q6H PRN IV NAUSEA AND/OR VOMITING Last administered on 02/25/19 14:11; Admin Dose 4 MG; Start 02/22/19 at 16:00 Diagnostic Test (Pha) (Accu-Chek) 1 ea Q12 XX Last administered on 02/26/19 09:12; Admin Dose 1 EA; Start 02/24/19 at 09:00 Metronidazole 100 ml @ 100 mls/hr Q8 IVPB Last administered on 02/26/19 06:23; Admin Dose 100 MLS/HR; Start 02/24/19 at 22:00 Cefepime HCl 50 ml @ 100 mls/hr Q12 IVPB Last administered on 02/26/19 09:06; Admin Dose 100 MLS/HR; Start 02/24/19 at 21:00 Total Parenteral Nutrition 1,000 ml @ 60 mls/hr [id number] IV ; Start 02/26/19 at 16:00 Guaifenesin (Robitussin Liquid Cup) 100 mg Q4H PRN PO COUGH Last administered on 02/25/19 17:58; Admin Dose 100 MG; Start 02/25/19 at 17:00 ODELL PACHECO February 26, 2019 14:48
--- NOTE | 2019-02-26 16:57 | PN ---
Date/Time of Note Date/Time of Note DATE: 02/26/19 TIME: 16:56 Assessment/Plan VTE Prophylaxis Risk score (from Nsg)>0 risk: 11 SCD applied (from Nsg): Yes Pharmacological prophylaxis: other Lines/Catheters IV Catheter Type (from Nrsg): Saline Lock Urinary Cath still in place: No Assessment/Plan Assessment/Plan s/p loop ileostomy after diversion tpn set up and dc home and f/u in 1 week Result Diagram: 02/26/19 0620 02/26/19 0620 Results 24hrs Laboratory Tests Test 02/25/19 21:16 02/26/19 06:20 02/26/19 09:04 Bedside Glucose 132 153 White Blood Count 6.4 Red Blood Count 3.00 L Hemoglobin 8.5 L Hematocrit 26.8 L Mean Corpuscular Volume 89.3 Mean Corpuscular Hemoglobin 28.3 L Mean Corpuscular Hemoglobin Concent 31.7 L Red Cell Distribution Width 13.6 Platelet Count 292 Mean Platelet Volume 11.2 H Immature Granulocytes % 1.200 H Neutrophils % 79.5 H Lymphocytes % 4.8 L Monocytes % 11.4 H Eosinophils % 2.8 Basophils % 0.3 Nucleated Red Blood Cells % 0.0 Immature Granulocytes # 0.080 H Neutrophils # 5.1 Lymphocytes # 0.3 L Monocytes # 0.7 Eosinophils # 0.2 Basophils # 0.0 Nucleated Red Blood Cells # 0.0 Sodium Level 134 L Potassium Level 4.4 Chloride Level 102 Carbon Dioxide Level 26 Anion Gap 6 Blood Urea Nitrogen 20 Creatinine 1.24 Est Glomerular Filtrat Rate mL/min 59 L Glucose Level 98 Calcium Level 9.3 Phosphorus Level 4.2 Magnesium Level 1.8 Subjective 24 Hr Interval Summary Free Text/Dictation patient doing well PICC line in place setting up home tpn Exam/Review of Systems Exam Vitals Vital Signs Date Temp Pulse Resp B/P (MAP) Pulse Ox O2 O2 Flow FiO2 Time Delivery Rate 02/26/19 73 16:01 02/26/19 99.9 20 111/62 94 Room Air 15:24 (78) 02/25/19 21 20:56 Intake and Output 02/25/19 02/25/19 02/26/19 1515:00 23:00 07:00 IntakeIntake Total 1250 ml 1000 ml OutputOutput Total 0 ml 2800 ml 1800 ml BalanceBalance 0 ml -1550 ml -800 ml Exam c/d/i healing wound ileostomy viable drain output successively less Results Results 24hrs Laboratory Tests Test 02/25/19 21:16 02/26/19 06:20 02/26/19 09:04 Bedside Glucose 132 153 White Blood Count 6.4 Red Blood Count 3.00 L Hemoglobin 8.5 L Hematocrit 26.8 L Mean Corpuscular Volume 89.3 Mean Corpuscular Hemoglobin 28.3 L Mean Corpuscular Hemoglobin Concent 31.7 L Red Cell Distribution Width 13.6 Platelet Count 292 Mean Platelet Volume 11.2 H Immature Granulocytes % 1.200 H Neutrophils % 79.5 H Lymphocytes % 4.8 L Monocytes % 11.4 H Eosinophils % 2.8 Basophils % 0.3 Nucleated Red Blood Cells % 0.0 Immature Granulocytes # 0.080 H Neutrophils # 5.1 Lymphocytes # 0.3 L Monocytes # 0.7 Eosinophils # 0.2 Basophils # 0.0 Nucleated Red Blood Cells # 0.0 Sodium Level 134 L Potassium Level 4.4 Chloride Level 102 Carbon Dioxide Level 26 Anion Gap 6 Blood Urea Nitrogen 20 Creatinine 1.24 Est Glomerular Filtrat Rate mL/min 59 L Glucose Level 98 Calcium Level 9.3 Phosphorus Level 4.2 Magnesium Level 1.8 Medications Medication Current Medications Metoprolol Tartrate (Lopressor) 5 mg Q4H PRN IV HR>110 HOld SBP<100 Last administered on 02/18/19 18:53; Admin Dose 5 MG; Start 01/23/19 at 20:30 Acetaminophen (Tylenol Tab) 650 mg Q6H PRN PO MILD PAIN(1-3)OR ELEVATED TEMP Last administered on 02/10/19at 21:54; Admin Dose 650 MG; Start 01/29/19 at 23:30 Al Hydrox/Mg Hydrox/Simethicone (Mag-Al Plus) 30 ml Q4H PRN PO GASTROINTESTINAL UPSET Last administered on 01/30/19at 18:39; Admin Dose 30 ML; Start 01/29/19 at 23:30 Atenolol (Tenormin) 50 mg BID PO Last administered on 02/26/19 09:12; Admin Dose 50 MG; Start 01/30/19 at 21:00 Morphine Sulfate (morphine) 2 mg Q2H PRN IV PAIN LEVEL 6-10; Start 02/11/19 at 16:30 Acetaminophen/ Hydrocodone Bitart ([place] (5/325)) 1 tab Q6H PRN PO PAIN LEVEL 6-10; Start 02/11/19 at 16:30 Fluconazole 100 ml @ 100 mls/hr Q24H IVPB Last administered on 02/26/19 12:12; Admin Dose 100 MLS/HR; Start 02/12/19 at 12:30 Enoxaparin Sodium (Lovenox) 80 mg BID SC Last administered on 02/26/19 09:13; Admin Dose 80 MG; Start 02/16/19 at 21:00 Diltiazem HCl (Cardizem Cd) 120 mg BID PO Last administered on 02/26/19 09:12; Admin Dose 120 MG; Start 02/18/19 at 21:00 Loperamide HCl (Imodium Cap) 4 mg QID PO Last administered on 02/26/19 12:12; Admin Dose 4 MG; Start 02/22/19 at 13:00 Ondansetron HCl (Zofran Inj) 4 mg Q6H PRN IV NAUSEA AND/OR VOMITING Last administered on 02/25/19 14:11; Admin Dose 4 MG; Start 02/22/19 at 16:00 Diagnostic Test (Pha) (Accu-Chek) 1 ea Q12 XX Last administered on 02/26/19 09:12; Admin Dose 1 EA; Start 02/24/19 at 09:00 Metronidazole 100 ml @ 100 mls/hr Q8 IVPB Last administered on 02/26/19 15:48; Admin Dose 100 MLS/HR; Start 02/24/19 at 22:00 Cefepime HCl 50 ml @ 100 mls/hr Q12 IVPB Last administered on 02/26/19 09:06; Admin Dose 100 MLS/HR; Start 02/24/19 at 21:00 Total Parenteral Nutrition 1,000 ml @ 60 mls/hr [id number] IV ; Start 02/26/19 at 16:00 Guaifenesin (Robitussin Liquid Cup) 100 mg Q4H PRN PO COUGH Last administered on 02/25/19 17:58; Admin Dose 100 MG; Start 02/25/19 at 17:00 Ann FERNANDEZ February 26, 2019 16:57
[2019-02-26] MEDS ORDERED: TPN 1,000 ML IV SCH (17:00)
[2019-02-26] MEDS: TPN 1,000 ML IV SCH (18:23)
[2019-02-26] MEDS: ACETAMINOPHEN 325 MG TAB PO PRN (19:01)
[2019-02-27] VITALS (11 sets, daily range): BP systolic 113–126; BP diastolic 64–71; PULSE 52–80; RESP 16–18
[2019-02-27] MEDS: metroNIDAZOLE 500 MG/NS (PMX) 100 ML IVPB SCH ×3 (05:29→22:22)
[2019-02-27] MEDS: TPN 1,000 ML IV SCH (08:43)
[2019-02-27] MEDS: LOPERAMIDE 2 MG CAP PO SCH ×4 (08:44→20:28)
[2019-02-27] MEDS: CEFEPIME 2GM/50 ML (PMX) 50 ML IVPB SCH (08:44)
[2019-02-27] MEDS: ATENOLOL 50 MG TAB PO SCH ×2 (08:45→20:30)
[2019-02-27] MEDS: DILTIAZEM (CD) 120 MG CAP PO SCH ×2 (08:46→20:29)
[2019-02-27] MEDS: ENOXAPARIN 80 MG/0.8 ML SYG SC SCH ×2 (09:32→20:35)
[2019-02-27] MEDS: ACCU-CHEK XX SCH ×2 (09:33→20:36)
--- NOTE | 2019-02-27 09:50 | PN ---
DATE: 02/27/2019 SUBJECTIVE: The patient is stable. No events overnight. OBJECTIVE: VITAL SIGNS: Blood pressure is 115/64, respirations 18, pulse 62, temperature 98.4. HEENT: Head is normocephalic. NECK: Supple. HEART: Regular rate. LUNGS: Show diminished breath sounds at the base. ABDOMEN: Soft, nontender to palpation without rebound or guarding. EXTREMITIES: Negative for clubbing, cyanosis, no edema. DERMATOLOGIC: No rashes. MUSCULOSKELETAL: No joint effusion. NEUROLOGIC: No change in exam. MEDICATIONS: Reviewed. LABORATORY DATA: Reviewed. ASSESSMENT AND PLAN: 1. Nonoliguric acute kidney injury with a previous baseline creatinine of 0.7 mg/dL. Etiology of ac [place] kidney injury is secondary to volume depletion. Renal function is improved after being given IV fluids, continue to monitor. 2. Hypernatremia, resolved. 3. Anemia. Monitor hemoglobin and hematocrit levels. 4. Mineral bone disorder. Monitor calcium and phosphorus levels. 5. Metabolic acidosis, resolved. 6. Anastomotic leak status post laparotomy with peritoneal washout and diverting ileostomy. 7. Sepsis secondary to intraabdominal infection, pneumonia, improving. The patient is completing an tibiotic course. 8. History of colon cancer, status post surgery and chemotherapy. 9. History of heart failure. 10. Lower extremity thrombus. 11. Atrial fibrillation. Continue medical management. Dictated By: SUSAN ZURITA DO NR/NTS Conf#: [id number] DID#: [id number] CC: JACOB FERNANDEZ MD; ANDREY ZHENG MD;*EndCC*
[2019-02-27] MEDS: ONDANSETRON 4 MG INJ IV PRN ×2 (11:53→17:58)
[2019-02-27] MEDS: FLUCONAZOLE 200 MG (PMX) 100 ML IVPB SCH (12:18)
--- NOTE | 2019-02-27 13:00 | PN ---
Date/Time of Note Date/Time of Note DATE: 02/27/19 TIME: 12:55 Assessment/Plan VTE Prophylaxis Risk score (from Nsg)>0 risk: 11 SCD applied (from Nsg): Yes Pharmacological prophylaxis: LMWH Lines/Catheters IV Catheter Type (from Nrsg): PICC Line Central line still needed: Yes Urinary Cath still in place: No Assessment/Plan Hospital Course Patient had a low-grade fever last night, patient continues on cefepime and Flagyl, await for final recommendation for antibiotics, follow-up on intra- abdominal drain culture for final recommendations for antibiotics. Patient started on TPN, case management for DC planning with arrangement for TPN at home. Assessment/Plan -Atrial fibrillation with rapid ventricular response, currently in sinus rhythm. Dr. Alejandro is following in cardiology consultation. Continue Lovenox and Cardizem, telemetry monitoring. -Anastomotic leak and intra-abdominal abscess, S/p CT guided drainage of abscess in LLQ on 02/01/2019. Status post laparotomy, washout of the peritoneal cavity, placement of a diverting loop ileostomy in right lower quadrant for protection of the anastomosis in the colorectal area on 02/11/[address] Art. Continue ceftriaxone per ID recommendation. -Sepsis secondary to intra-abdominal infection and pneumonia, resolved, s/p treatment with antibiotics. Dr. Bosch is following in infection disease consultation. -R pleural effusion, s/p R sided thoracentesis on 02/05/2019 -S/p open Reagan reversal and colorectal low pelvic anastomosis, segmental partial colectomy, and open incarcerated incisional and parastomal hernia repairs with mesh by Dr. Art on 01/21/2019. Continue [place] and Dilaudid as needed for pain and Zofran as needed for nausea. -Stage III sigmoid colon cancer, status post surgery and chemo in 2018. -Acute kidney injury on chronic kidney disease, monitor urine output BUN and creatinine. Dr. Stuart is following in nephrology consultation. -Acute on chronic diastolic CHF -Protein calorie malnutrition, improved. patient tolerates a regular diet, restarted on TPN due to dehydration and malabsorption due to large ileostomy output. -Obstructive sleep apnea -History of hypertension -History of left upper extremity DVT, status post bilateral upper extremity ult rasound on 02/05/2019: No sonographic evidence for bilateral upper extremity deep venous thrombosis. Superficial thrombus in the right cephalic vein in the forearm. Cephalic vein in the upper arm is patent. Superficial thrombus in the left cephalic vein in the antecubital fossa. Cephalic vein in the upper arm is patent. Further recommendations based on clinical course. Plan of care discussed with Dr. Fox. Result Diagram: 02/27/19 0618 02/27/19 0618 Results 24hrs Laboratory Tests Test 02/26/19 21:06 02/27/19 06:18 02/27/19 08:36 Bedside Glucose 177 136 White Blood Count 5.0 # Red Blood Count 2.87 L Hemoglobin 8.2 L Hematocrit 26.1 L Mean Corpuscular Volume 90.9 Mean Corpuscular Hemoglobin 28.6 L Mean Corpuscular Hemoglobin Concent 31.4 L Red Cell Distribution Width 13.4 Platelet Count 233 # Mean Platelet Volume 11.6 H Immature Granulocytes % 0.800 H Neutrophils % 79.8 H Lymphocytes % 5.1 L Monocytes % 10.7 Eosinophils % 3.2 Basophils % 0.4 Nucleated Red Blood Cells % 0.0 Immature Granulocytes # 0.040 H Neutrophils # 4.0 Lymphocytes # 0.3 L Monocytes # 0.5 Eosinophils # 0.2 Basophils # 0.0 Nucleated Red Blood Cells # 0.0 Sodium Level 136 Potassium Level 4.0 Chloride Level 105 Carbon Dioxide Level 22 Anion Gap 9 Blood Urea Nitrogen 22 H Creatinine 0.98 Est Glomerular Filtrat Rate mL/min > 60 Glucose Level 122 Calcium Level 9.1 Exam/Review of Systems Exam Vitals Vital Signs Date Temp Pulse Resp B/P (MAP) Pulse Ox O2 O2 Flow FiO2 Time Delivery Rate 02/27/19 98.4 71 16 117/66 96 11:00 (83) 02/27/19 Room Air 07:11 02/25/19 21 20:56 Intake and Output 02/26/19 02/26/19 02/27/19 1515:00 23:00 07:00 IntakeIntake Total 790 ml 1260 ml OutputOutput Total 550 ml 2350 ml BalanceBalance 240 ml -1090 ml Exam Constitutional: alert, oriented Respiratory: clear to auscultation Cardiovascular: regular rhythm Gastrointestinal: soft, other (Abdominal surgical incision, accordion drain) Extremities: normal pulses Neurological: nl mental status Results Results 24hrs Laboratory Tests Test 02/26/19 21:06 02/27/19 06:18 02/27/19 08:36 Bedside Glucose 177 136 White Blood Count 5.0 # Red Blood Count 2.87 L Hemoglobin 8.2 L Hematocrit 26.1 L Mean Corpuscular Volume 90.9 Mean Corpuscular Hemoglobin 28.6 L Mean Corpuscular Hemoglobin Concent 31.4 L Red Cell Distribution Width 13.4 Platelet Count 233 # Mean Platelet Volume 11.6 H Immature Granulocytes % 0.800 H Neutrophils % 79.8 H Lymphocytes % 5.1 L Monocytes % 10.7 Eosinophils % 3.2 Basophils % 0.4 Nucleated Red Blood Cells % 0.0 Immature Granulocytes # 0.040 H Neutrophils # 4.0 Lymphocytes # 0.3 L Monocytes # 0.5 Eosinophils # 0.2 Basophils # 0.0 Nucleated Red Blood Cells # 0.0 Sodium Level 136 Potassium Level 4.0 Chloride Level 105 Carbon Dioxide Level 22 Anion Gap 9 Blood Urea Nitrogen 22 H Creatinine 0.98 Est Glomerular Filtrat Rate mL/min > 60 Glucose Level 122 Calcium Level 9.1 Medications Medication Current Medications Metoprolol Tartrate (Lopressor) 5 mg Q4H PRN IV HR>110 HOld SBP<100 Last admini stered on 02/18/19at 18:53; Admin Dose 5 MG; Start 01/23/19 at 20:30 Acetaminophen (Tylenol Tab) 650 mg Q6H PRN PO MILD PAIN(1-3)OR ELEVATED TEMP Last administered on 02/26/19at 19:01; Admin Dose 650 MG; Start 01/29/19 at 23:30 Al Hydrox/Mg Hydrox/Simethicone (Mag-Al Plus) 30 ml Q4H PRN PO GASTROINTESTINAL UPSET Last administered on 01/30/19at 18:39; Admin Dose 30 ML; Start 01/29/19 at 23:30 Atenolol (Tenormin) 50 mg BID PO Last administered on 02/27/19at 08:45; Admin Dose 50 MG; Start 01/30/19 at 21:00 Morphine Sulfate (morphine) 2 mg Q2H PRN IV PAIN LEVEL 6-10; Start 02/11/19 at 16:30 Acetaminophen/ Hydrocodone Bitart ([place] (5/325)) 1 tab Q6H PRN PO PAIN LEVEL 6-10; Start 02/11/19 at 16:30 Fluconazole 100 ml @ 100 mls/hr Q24H IVPB Last administered on 02/27/19 12:18; Admin Dose 100 MLS/HR; Start 02/12/19 at 12:30 Enoxaparin Sodium (Lovenox) 80 mg BID SC Last administered on 02/27/19 09:32; Admin Dose 80 MG; Start 02/16/19 at 21:00 Diltiazem HCl (Cardizem Cd) 120 mg BID PO Last administered on 02/27/19 08:46; Admin Dose 120 MG; Start 02/18/19 at 21:00 Loperamide HCl (Imodium Cap) 4 mg QID PO Last administered on 02/27/19 12:18; Admin Dose 4 MG; Start 02/22/19 at 13:00 Ondansetron HCl (Zofran Inj) 4 mg Q6H PRN IV NAUSEA AND/OR VOMITING Last administered on 02/27/19 11:53; Admin Dose 4 MG; Start 02/22/19 at 16:00 Diagnostic Test (Pha) (Accu-Chek) 1 ea Q12 XX Last administered on 02/27/19 09:33; Admin Dose 1 EA; Start 02/24/19 at 09:00 Metronidazole 100 ml @ 100 mls/hr Q8 IVPB Last administered on 02/27/19 05:29; Admin Dose 100 MLS/HR; Start 02/24/19 at 22:00 Cefepime HCl 50 ml @ 100 mls/hr Q12 IVPB Last administered on 02/27/19 08:44; Admin Dose 100 MLS/HR; Start 02/24/19 at 21:00 Total Parenteral Nutrition 1,000 ml @ 60 mls/hr [id number] IV Last administered on 02/27/19 08:43; Admin Dose 60 MLS/HR; Start 02/26/19 at 16:00 Guaifenesin (Robitussin Liquid Cup) 100 mg Q4H PRN PO COUGH Last administered on 02/25/19 17:58; Admin Dose 100 MG; Start 02/25/19 at 17:00 IV Flush (NS 10 ml) 10 ml Q8 PRN IV IV PROTOCOL; Start 02/26/19 at 18:00 ODELL PACHECO February 27, 2019 13:00
--- NOTE | 2019-02-27 15:45 | CONS ---
Assessment/Plan Assessment/Plan Hospital Course (Demo Recall) IMPRESSION: 1. Tachycardia c/w AF now converted to SR NL EF by echo 60-65 2. Possible congestive heart failure by chest x-ray with the patient having the onset of acute renal failure at this time. 3. Hypertension 4. Postoperative status post reversal colostomy. 5. Fevers postop. 6. Renal failure, acute 7. History of colon carcinoma status post prior colectomy with colostomy with anastomatic leak by abd CT and now post-op s/p repeat surgery with removal abscess and placement of drains 8. Hypernatremia, improved 9. Hypomagnesemia-improved 10. Leukocytosis. Recc: -Tele -Continue PO BB/CCB as tolerated -Pain control -Continue abx's and f/u cx data -Follow volume status closely off of lasix -Continue lovenox -routine post-op care -now off TPN Consultation Date/Type/Reason Admit Date/Time Jan 21, 2019 at 06:18 Initial Consult Date 01/23/19 Type of Consult Cardiology Reason for Consultation AF Requesting Provider: ODELL PACHECO Date/Time of Note DATE: 02/27/19 TIME: 15:44 Exam/Review of Systems Vital Signs Vitals Vital Signs Date Temp Pulse Resp B/P (MAP) Pulse Ox O2 O2 Flow FiO2 Time Delivery Rate 02/27/19 98.9 66 18 113/67 95 Room Air 15:11 (82) 02/25/19 21 20:56 Intake and Output 02/26/19 02/26/19 02/27/19 1515:00 23:00 07:00 IntakeIntake Total 790 ml 1260 ml OutputOutput Total 550 ml 2350 ml BalanceBalance 240 ml -1090 ml Exam Exam Review of Systems: CONSTITUTIONAL: No fevers, chills. PULMONARY: No sob CARDIOVASCULAR: No chest pain/palpitations GASTROINTESTINAL: No nausea/vomiting. GENITOURINARY: No hematuria/dysuria. MUSCULOSKELETAL: No myagias/arthalgias. PSYCHIATRIC: The patient denies depression. NEUROLOGIC: No weakness Constitutional: alert Psych: no complaints Head: normocephalic ENMT: mucosa pink and moist Neck: supple, jvd (8 cm water) Respiratory: diminished breath sounds (at bases/B) Cardiovascular: regular rate and rhythm Gastrointestinal: soft, other (covered by dressing) Musculoskeletal: muscle tone (normal) Extremities: edema (none) Neurological: other (NO focal deficitis) Labs Result Diagram: 02/27/1918 02/27/19 0618 Results 24hrs Laboratory Tests Test 02/26/19 21:06 02/27/19 06:18 02/27/19 08:36 Bedside Glucose 177 136 White Blood Count 5.0 # Red Blood Count 2.87 L Hemoglobin 8.2 L Hematocrit 26.1 L Mean Corpuscular Volume 90.9 Mean Corpuscular Hemoglobin 28.6 L Mean Corpuscular Hemoglobin Concent 31.4 L Red Cell Distribution Width 13.4 Platelet Count 233 # Mean Platelet Volume 11.6 H Immature Granulocytes % 0.800 H Neutrophils % 79.8 H Lymphocytes % 5.1 L Monocytes % 10.7 Eosinophils % 3.2 Basophils % 0.4 Nucleated Red Blood Cells % 0.0 Immature Granulocytes # 0.040 H Neutrophils # 4.0 Lymphocytes # 0.3 L Monocytes # 0.5 Eosinophils # 0.2 Basophils # 0.0 Nucleated Red Blood Cells # 0.0 Sodium Level 136 Potassium Level 4.0 Chloride Level 105 Carbon Dioxide Level 22 Anion Gap 9 Blood Urea Nitrogen 22 H Creatinine 0.98 Est Glomerular Filtrat Rate mL/min > 60 Glucose Level 122 Calcium Level 9.1 Medications Medications Current Medications Metoprolol Tartrate (Lopressor) 5 mg Q4H PRN IV HR>110 HOld SBP<100 Last administered on 02/18/19 18:53; Admin Dose 5 MG; Start 01/23/19 at 20:30 Acetaminophen (Tylenol Tab) 650 mg Q6H PRN PO MILD PAIN(1-3)OR ELEVATED TEMP Last administered on 02/26/19at 19:01; Admin Dose 650 MG; Start 01/29/19 at 23:30 Al Hydrox/Mg Hydrox/Simethicone (Mag-Al Plus) 30 ml Q4H PRN PO GASTROINTESTINAL UPSET Last administered on 01/30/19at 18:39; Admin Dose 30 ML; Start 01/29/19 at 23:30 Atenolol (Tenormin) 50 mg BID PO Last administered on 02/27/19 08:45; Admin Dose 50 MG; Start 01/30/19 at 21:00 Morphine Sulfate (morphine) 2 mg Q2H PRN IV PAIN LEVEL 6-10; Start 02/11/19 at 16:30 Acetaminophen/ Hydrocodone Bitart ([place] (5/325)) 1 tab Q6H PRN PO PAIN LEVEL 6-10; Start 02/11/19 at 16:30 Fluconazole 100 ml @ 100 mls/hr Q24H IVPB Last administered on 02/27/19 12:18; Admin Dose 100 MLS/HR; Start 02/12/19 at 12:30 Enoxaparin Sodium (Lovenox) 80 mg BID SC Last administered on 02/27/19 09:32; Admin Dose 80 MG; Start 02/16/19 at 21:00 Diltiazem HCl (Cardizem Cd) 120 mg BID PO Last administered on 02/27/19 08:46; Admin Dose 120 MG; Start 02/18/19 at 21:00 Loperamide HCl (Imodium Cap) 4 mg QID PO Last administered on 02/27/19 12:18; Admin Dose 4 MG; Start 02/22/19 at 13:00 Ondansetron HCl (Zofran Inj) 4 mg Q6H PRN IV NAUSEA AND/OR VOMITING Last administered on 02/27/19 11:53; Admin Dose 4 MG; Start 02/22/19 at 16:00 Diagnostic Test (Pha) (Accu-Chek) 1 ea Q12 XX Last administered on 02/27/19 09:33; Admin Dose 1 EA; Start 02/24/19 at 09:00 Metronidazole 100 ml @ 100 mls/hr Q8 IVPB Last administered on 02/27/19 14:13; Admin Dose 100 MLS/HR; Start 02/24/19 at 22:00 Cefepime HCl 50 ml @ 100 mls/hr Q12 IVPB Last administered on 02/27/19 08:44; Admin Dose 100 MLS/HR; Start 02/24/19 at 21:00 Total Parenteral Nutrition 1,000 ml @ 60 mls/hr [id number] IV Last administered on 02/27/19 08:43; Admin Dose 60 MLS/HR; Start 02/26/19 at 16:00 Guaifenesin (Robitussin Liquid Cup) 100 mg Q4H PRN PO COUGH Last administered on 02/25/19 17:58; Admin Dose 100 MG; Start 02/25/19 at 17:00 IV Flush (NS 10 ml) 10 ml Q8 PRN IV IV PROTOCOL; Start 02/26/19 at 18:00 EUGENE ANDERSON February 27, 2019 15:45
--- NOTE | 2019-02-27 16:34 | CONS ---
Assessment/Plan Assessment/Plan Hospital Course (Demo Recall) # sepsis, respiratory - sepsis due to complicated intra-abdominal infection and pneumonia, resolved - recurrent pleural effusion, follow up chest US on 02/17/2019 showed small R sided effusion - congested cough probably due to pleural effusion and fluid overload, influenza AB negative on 02/17/2019. Improving and stable on room air - R pleural effusion, exudative process, parapneumonic effusion LDH 1601 protein 3.2, no e/o malignancy on cytology - s/p R sided thoracentesis on 02/05/2019 - VIJAY # GI, onc - s/p ex lap, washout of abdominal abscess, CLEVE, diverting loop ileostomy on 02/11/2019 - s/p open Reagan reversal and colorectal low pelvic anastomosis, segmental partial colectomy, and open incarcerated incisional and parastomal hernia repairs with mesh by Dr. Art on 01/21/2019 - thrush, resolving - follow up CT on 02/04/2019 did not identify definite point of leak--> anastomotic leak was identified on gastograffin - s/p CT guided drainage of abscess in LLQ on 02/01/2019 - abdominal wound culture 01/30/19 and abscess culture 01/31/19 grew pseudomonas, joseline albicans and glabrata - s/p colostomy reversal - stage III sigmoid colon cancer, status post prior colectomy/colostomy and chem o in 2017 # renal, cardiovascular - recurrent acute kidney injury on chronic kidney disease - acute on chronic diastolic CHF, improved - atrial fibrillation with RVR, converted to SR - Hx hypertension - Hx left upper extremity DVT - superficial thrombus in R cephalic vein in the forearm and in L cephalic vein in the antecubital fossa as visualized on NOY 02/05/2019 # other conditions - R conjunctivitis, resolved after neomycin eye drop x 7 days Recommendations: - IV Levaquin x 7 days at least or until drainage resolved - Continue IV metronidazole (02/24/2019-) for anaerobic coverage for 7 days at least or until drainage resolved - d/c fluconazole - doubt need for additional abx coverage of wrapper rewinder at this time but will follow closely clinically with you - periodic ekg while on floroquinolone or azole - We recommend continued antibiotics until repeat imaging shows resolution of intra-abdominal fluid collection. Antibiotics to be adjusted based on above findings. - Consider repeat CT Abd/pelvis - Of note: Pt previously took meropenem (01/30/2019-02/03/2019), metronidazole (02/04/2019-02/16/2019) and cefepime (02/04/2019-02/18/2019) - Pt and his family need education on ileostomy care Plan was coordinated with BRENDAN Gustafson yesterday via [employer] messaging. Consultation Date/Type/Reason Admit Date/Time Jan 21, 2019 at 06:18 Initial Consult Date 01/30/19 Type of Consult ID Requesting Provider: ODELL PACHECO Date/Time of Note DATE: 02/27/19 TIME: 16:28 prolonged service time 1 hr Exam/Review of Systems Exam Vitals Vital Signs Date Temp Pulse Resp B/P (MAP) Pulse Ox O2 O2 Flow FiO2 Time Delivery Rate 02/27/19 68 16:08 02/27/19 98.9 18 113/67 95 Room Air 15:11 (82) 02/25/19 21 20:56 Intake and Output 02/26/19 02/26/19 02/27/19 1515:00 23:00 07:00 IntakeIntake Total 790 ml 1260 ml OutputOutput Total 550 ml 2350 ml BalanceBalance 240 ml -1090 ml Constitutional: alert, oriented, well developed Psych: no complaints, nl mood/affect Head: normocephalic, atraumatic Eyes: nl conjunctiva, EOMI, nl lids, nl sclera, PERRL Respiratory: clear to auscultation Cardiovascular: regular rate and rhythm Gastrointestinal: soft, distended, other (accordion drain with serous drainage noted) Neurological: CLIMATOLOGY TEACHER II-XII intact Results Result Diagram: 02/27/19 0618 02/27/19 0618 Results 24hrs Laboratory Tests Test 02/26/19 21:06 02/27/19 06:18 02/27/19 08:36 Bedside Glucose 177 136 White Blood Count 5.0 # Red Blood Count 2.87 L Hemoglobin 8.2 L Hematocrit 26.1 L Mean Corpuscular Volume 90.9 Mean Corpuscular Hemoglobin 28.6 L Mean Corpuscular Hemoglobin Concent 31.4 L Red Cell Distribution Width 13.4 Platelet Count 233 # Mean Platelet Volume 11.6 H Immature Granulocytes % 0.800 H Neutrophils % 79.8 H Lymphocytes % 5.1 L Monocytes % 10.7 Eosinophils % 3.2 Basophils % 0.4 Nucleated Red Blood Cells % 0.0 Immature Granulocytes # 0.040 H Neutrophils # 4.0 Lymphocytes # 0.3 L Monocytes # 0.5 Eosinophils # 0.2 Basophils # 0.0 Nucleated Red Blood Cells # 0.0 Sodium Level 136 Potassium Level 4.0 Chloride Level 105 Carbon Dioxide Level 22 Anion Gap 9 Blood Urea Nitrogen 22 H Creatinine 0.98 Est Glomerular Filtrat Rate mL/min > 60 Glucose Level 122 Calcium Level 9.1 Medications Medication Current Medications Metoprolol Tartrate (Lopressor) 5 mg Q4H PRN IV HR>110 HOld SBP<100 Last administered on 02/18/19 18:53; Admin Dose 5 MG; Start 01/23/19 at 20:30 Acetaminophen (Tylenol Tab) 650 mg Q6H PRN PO MILD PAIN(1-3)OR ELEVATED TEMP Last administered on 02/26/19 19:01; Admin Dose 650 MG; Start 01/29/19 at 23:30 Al Hydrox/Mg Hydrox/Simethicone (Mag-Al Plus) 30 ml Q4H PRN PO GASTROINTESTINAL UPSET Last administered on 01/30/19 18:39; Admin Dose 30 ML; Start 01/29/19 at 23:30 Atenolol (Tenormin) 50 mg BID PO Last administered on 02/27/19 08:45; Admin Dose 50 MG; Start 01/30/19 at 21:00 Morphine Sulfate (morphine) 2 mg Q2H PRN IV PAIN LEVEL 6-10; Start 02/11/19 at 16:30 Acetaminophen/ Hydrocodone Bitart ([place] (5/325)) 1 tab Q6H PRN PO PAIN LEVEL 6-10; Start 02/11/19 at 16:30 Fluconazole 100 ml @ 100 mls/hr Q24H IVPB Last administered on 02/27/19 12:18; Admin Dose 100 MLS/HR; Start 02/12/19 at 12:30 Enoxaparin Sodium (Lovenox) 80 mg BID SC Last administered on 02/27/19 09:32; Admin Dose 80 MG; Start 02/16/19 at 21:00 Diltiazem HCl (Cardizem Cd) 120 mg BID PO Last administered on 5/15/19at 08:46; Admin Dose 120 MG; Start 02/18/19 at 21:00 Loperamide HCl (Imodium Cap) 4 mg QID PO Last administered on 02/27/19 12:18; Admin Dose 4 MG; Start 02/22/19 at 13:00 Ondansetron HCl (Zofran Inj) 4 mg Q6H PRN IV NAUSEA AND/OR VOMITING Last administered on 02/27/19 11:53; Admin Dose 4 MG; Start 02/22/19 at 16:00 Diagnostic Test (Pha) (Accu-Chek) 1 ea Q12 XX Last administered on 02/27/19 09:33; Admin Dose 1 EA; Start 02/24/19 at 09:00 Metronidazole 100 ml @ 100 mls/hr Q8 IVPB Last administered on 02/27/19 14:13; Admin Dose 100 MLS/HR; Start 02/24/19 at 22:00 Cefepime HCl 50 ml @ 100 mls/hr Q12 IVPB Last administered on 02/27/19 08:44; Admin Dose 100 MLS/HR; Start 02/24/19 at 21:00 Total Parenteral Nutrition 1,000 ml @ 60 mls/hr [id number] IV Last administered on 02/27/19 08:43; Admin Dose 60 MLS/HR; Start 02/26/19 at 16:00 Guaifenesin (Robitussin Liquid Cup) 100 mg Q4H PRN PO COUGH Last administered on 02/25/19 17:58; Admin Dose 100 MG; Start 02/25/19 at 17:00 IV Flush (NS 10 ml) 10 ml Q8 PRN IV IV PROTOCOL; Start 02/26/19 at 18:00 KURT SEO MD February 27, 2019 16:34
--- NOTE | 2019-02-27 17:21 | PN ---
DATE: 02/27/2019 SUBJECTIVE: The patient continues to complain of nausea and anorexia. Today, he has been out of bed and walked around along with physical therapist. OBJECTIVE: GENERAL: Awake, alert, no acute distress. VITAL SIGNS: Temperature today 98.7 maximum but, last night, he has had an episode of 101, heart rat e is between 62 and 71, respirations 18, blood pressure 117/66 and saturation 96% on room air. LABORATORY DATA: WBC is 5000, which is normal; differential is 80% with a slight shift. Platelet mora s been coming down and today is 233, which is a normal range. Hemoglobin 8.2, hematocrit 26.1. Chem istry: Sodium and potassium normal. BUN ____ and creatinine 0.98 which is improving after the patie nt has been receiving IV hydration. PHYSICAL EXAMINATION: HEART: Regular. LUNGS: Decreased breathing sound at bases, mostly on the right side. ABDOMEN: There is an ileostomy. She is full of fluid and some semi-formed stool, yellowish. [place] l drain in the left lower quadrant is still in place. The amount of drainage has been recorded in th e past 24 hours as 0 while the patient is being flushed once or twice a day with 10 mL of normal sali ne. A few days ago when I saw the patient, there was definite obvious pus and purulent liquid in the tubing. A midline incision dressing was changed. All the abbey were removed. The scabs over the open area were removed and relatively clean. No obvious purulent discharge. PLAN: Painting the wound with Betadine and covering with dry dressing b.i.d. Overall plan has been suggested by the general surgeon, Dr. Art, and other colleagues to discharge the patient with TPN, al though the TPN has been started and they are going to discharge the patient on the basis of home TPN and possibly elemental diet if they can find per RN. The Infectious Disease people want to also cont inue some kind of antibiotic for the patient to take it at home either IV or p.o. At this time, the patient is on cefepime and Flagyl. So, ultimately: 1. The patient is going to be discharged home with TPN. 2. The patient is going to be discharged home most probably with some sort of antibiotics. 3. The patient is going to be discharged home with oral intake and, if possible, elemental diet or E nsure or any other kind of this canned food. The midline wound needs daily dressing with Betadine pa inting. We will continue to follow the patient ____ in the house and later on when the patient gets discharge, the patient should be followed from a surgical point of view by Dr. Art in the office. Dictated By: LIAT LOOMIS MD PS/NTS Conf#: [id number] DID#: [id number] CC: JACOB ART MD;*EndCC*
[2019-02-27] MEDS: LEVOFLOXACIN 500MG/D5W (PMX) 100 ML IVPB SCH (17:34)
[2019-02-28] VITALS: BP 130/75; PULSE 75; PULSE 77; RESP 18
[2019-02-28] MEDS: TPN 1,000 ML IV SCH (00:59)
[2019-02-28] MEDS: ONDANSETRON 4 MG INJ IV PRN (00:59)
[2019-02-28 04:00] VITALS: BP 130/73; PULSE 76; PULSE 79; RESP 18
[2019-02-28] MEDS: metroNIDAZOLE 500 MG/NS (PMX) 100 ML IVPB SCH ×2 (05:15→14:01)
[2019-02-28 07:58] VITALS: BP 128/73; PULSE 83; RESP 22
[2019-02-28 08:11] VITALS: PULSE 85
[2019-02-28] MEDS: LOPERAMIDE 2 MG CAP PO SCH ×2 (08:37→14:01)
[2019-02-28] MEDS: ATENOLOL 50 MG TAB PO SCH (08:37)
[2019-02-28] MEDS: DILTIAZEM (CD) 120 MG CAP PO SCH (08:37)
[2019-02-28] MEDS: ENOXAPARIN 80 MG/0.8 ML SYG SC SCH (08:40)
[2019-02-28] MEDS: ACCU-CHEK XX SCH (08:47)
--- NOTE | 2019-02-28 09:29 | PN ---
DATE: 02/28/2019 SUBJECTIVE: The patient is stable, no events overnight. The patient is currently on TPN. OBJECTIVE: VITAL SIGNS: Blood pressure is 128/73, pulse 85, temperature 97.8. HEENT: Head is normocephalic. NECK: Supple. HEART: Regular rate. LUNGS: Show diminished breath sounds at the base. ABDOMEN: Soft, nontender to palpation without rebound or guarding. EXTREMITIES: Negative for clubbing, cyanosis, no edema. DERMATOLOGIC: No rashes. MUSCULOSKELETAL: No joint effusion. NEUROLOGIC: No change in exam. MEDICATIONS: Reviewed. LABORATORY DATA: Reviewed. ASSESSMENT AND PLAN: 1. Nonoliguric acute kidney injury. Etiology of acute kidney injury is secondary to hemodynamics. Renal function is improved. Continue to monitor. 2. Hypernatremia, resolved. 3. Anemia. Monitor hemoglobin and hematocrit levels. 4. Mineral bone disorder. Monitor calcium and phosphorus levels. 5. Metabolic acidosis, resolved. 6. Anastomotic leak status post laparotomy with peritoneal washout and diverting ileostomy. 7. Sepsis secondary to intraabdominal infection, pneumonia, improving. The patient is completing an tibiotic course. 8. History of colon cancer, status post surgery and chemotherapy. 9. History of heart failure. 10. Nutrition. The patient is on TPN. 11. Atrial fibrillation. Continue medical management. Dictated By: SUSAN ZURITA DO NR/NTS Conf#: [id number] DID#: [id number] CC: ANDREY ZHENG MD; JACOB FERNANDEZ MD;*EndCC*
[2019-02-28 11:45] VITALS: BP 105/69; PULSE 78; RESP 22
[2019-02-28] MEDS ORDERED: MAGNESIUM SULFATE 1 GM/D5W 100 ML IVPB ONE (12:00)
[2019-02-28 12:04] VITALS: PULSE 72
[2019-02-28] MEDS ORDERED: DILT120C77 PO (12:10)
[2019-02-28] MEDS ORDERED: LOPE-123 PO (12:10)
[2019-02-28] MEDS ORDERED: ATEN50TA PO (12:10)
--- NOTE | 2019-02-28 12:12 | PN ---
Date/Time of Note Date/Time of Note DATE: 02/28/19 TIME: 12:11 Assessment/Plan VTE Prophylaxis Risk score (from Nsg)>0 risk: 5 SCD applied (from Nsg): Yes Pharmacological prophylaxis: other Lines/Catheters IV Catheter Type (from Nrsg): PICC Line Central line still needed: Yes Urinary Cath still in place: No Assessment/Plan Assessment/Plan s/p loop ileostomy for diversion on TPN dc home and f/u in 1 week Result Diagram: 02/28/19 0603 02/28/19 0603 Results 24hrs Laboratory Tests Test 02/27/19 20:26 02/28/19 06:03 02/28/19 08:46 Bedside Glucose 148 134 White Blood Count 4.8 Red Blood Count 2.91 L Hemoglobin 8.3 L Hematocrit 26.1 L Mean Corpuscular Volume 89.7 Mean Corpuscular Hemoglobin 28.5 L Mean Corpuscular Hemoglobin Concent 31.8 L Red Cell Distribution Width 13.2 Platelet Count 228 Mean Platelet Volume 11.3 H Immature Granulocytes % 1.000 H Neutrophils % 75.4 Lymphocytes % 8.5 L Monocytes % 12.2 H Eosinophils % 2.5 Basophils % 0.4 Nucleated Red Blood Cells % 0.0 Immature Granulocytes # 0.050 H Neutrophils # 3.7 Lymphocytes # 0.4 L Monocytes # 0.6 Eosinophils # 0.1 Basophils # 0.0 Nucleated Red Blood Cells # 0.0 Sodium Level 137 Potassium Level 4.1 Chloride Level 108 Carbon Dioxide Level 21 Anion Gap 8 Blood Urea Nitrogen 17 Creatinine 0.91 Est Glomerular Filtrat Rate mL/min > 60 Glucose Level 112 Calcium Level 8.9 Phosphorus Level 3.6 Magnesium Level 1.7 Prealbumin 13.6 L Subjective 24 Hr Interval Summary Free Text/Dictation patient doing well on TPN no issues Exam/Review of Systems Exam Vitals Vital Signs Date Temp Pulse Resp B/P (MAP) Pulse Ox O2 O2 Flow FiO2 Time Delivery Rate 02/28/19 72 12:04 02/28/19 97.8 22 105/69 96 Room Air 11:45 (81) 02/25/19 21 20:56 Intake and Output 02/27/19 02/27/19 02/28/19 1515:00 23:00 07:00 IntakeIntake Total 1580 ml 1500 ml OutputOutput Total 1450 ml 900 ml BalanceBalance 130 ml 600 ml Exam c/d/i healing midline wound ileostomy viable Results Results 24hrs Laboratory Tests Test 02/27/19 20:26 02/28/19 06:03 02/28/19 08:46 Bedside Glucose 148 134 White Blood Count 4.8 Red Blood Count 2.91 L Hemoglobin 8.3 L Hematocrit 26.1 L Mean Corpuscular Volume 89.7 Mean Corpuscular Hemoglobin 28.5 L Mean Corpuscular Hemoglobin Concent 31.8 L Red Cell Distribution Width 13.2 Platelet Count 228 Mean Platelet Volume 11.3 H Immature Granulocytes % 1.000 H Neutrophils % 75.4 Lymphocytes % 8.5 L Monocytes % 12.2 H Eosinophils % 2.5 Basophils % 0.4 Nucleated Red Blood Cells % 0.0 Immature Granulocytes # 0.050 H Neutrophils # 3.7 Lymphocytes # 0.4 L Monocytes # 0.6 Eosinophils # 0.1 Basophils # 0.0 Nucleated Red Blood Cells # 0.0 Sodium Level 137 Potassium Level 4.1 Chloride Level 108 Carbon Dioxide Level 21 Anion Gap 8 Blood Urea Nitrogen 17 Creatinine 0.91 Est Glomerular Filtrat Rate mL/min > 60 Glucose Level 112 Calcium Level 8.9 Phosphorus Level 3.6 Magnesium Level 1.7 Prealbumin 13.6 L Medications Medication Current Medications Metoprolol Tartrate (Lopressor) 5 mg Q4H PRN IV HR>110 HOld SBP<100 Last administered on 02/18/19at 18:53; Admin Dose 5 MG; Start 01/23/19 at 20:30 Acetaminophen (Tylenol Tab) 650 mg Q6H PRN PO MILD PAIN(1-3)OR ELEVATED TEMP Last administered on 02/26/19at 19:01; Admin Dose 650 MG; Start 01/29/19 at 23:30 Al Hydrox/Mg Hydrox/Simethicone (Mag-Al Plus) 30 ml Q4H PRN PO GASTROINTESTINAL UPSET Last administered on 01/30/19at 18:39; Admin Dose 30 ML; Start 01/29/19 at 23:30 Atenolol (Tenormin) 50 mg BID PO Last administered on 02/28/19at 08:37; Admin Dose 50 MG; Start 01/30/19 at 21:00 Morphine Sulfate (morphine) 2 mg Q2H PRN IV PAIN LEVEL 6-10; Start 02/11/19 at 16:30 Acetaminophen/ Hydrocodone Bitart ([place] (5/325)) 1 tab Q6H PRN PO PAIN LEVEL 6-10; Start 02/11/19 at 16:30 Enoxaparin Sodium (Lovenox) 80 mg BID SC Last administered on 02/28/19 08:40; Admin Dose 80 MG; Start 02/16/19 at 21:00 Diltiazem HCl (Cardizem Cd) 120 mg BID PO Last administered on 02/28/19 08:37; Admin Dose 120 MG; Start 02/18/19 at 21:00 Loperamide HCl (Imodium Cap) 4 mg QID PO Last administered on 02/28/19 08:37; Admin Dose 4 MG; Start 02/22/19 at 13:00 Ondansetron HCl (Zofran Inj) 4 mg Q6H PRN IV NAUSEA AND/OR VOMITING Last administered on 02/28/19 00:59; Admin Dose 4 MG; Start 02/22/19 at 16:00 Diagnostic Test (Pha) (Accu-Chek) 1 ea Q12 XX Last administered on 02/28/19 08:47; Admin Dose 1 EA; Start 02/24/19 at 09:00 Metronidazole 100 ml @ 100 mls/hr Q8 IVPB Last administered on 02/28/19 05:15; Admin Dose 100 MLS/HR; Start 02/24/19 at 22:00 Total Parenteral Nutrition 1,000 ml @ 60 mls/hr [id number] IV Last administered on 02/28/19 00:59; Admin Dose 60 MLS/HR; Start 02/26/19 at 16:00 Guaifenesin (Robitussin Liquid Cup) 100 mg Q4H PRN PO COUGH Last administered on 02/25/19 17:58; Admin Dose 100 MG; Start 02/25/19 at 17:00 IV Flush (NS 10 ml) 10 ml Q8 PRN IV IV PROTOCOL; Start 02/26/19 at 18:00 Levofloxacin/ Dextrose 100 ml @ 100 mls/hr Q24H IVPB Last administered on 02/27/19 17:34; Admin Dose 100 MLS/HR; Start 02/27/19 at 17:30 Magnesium Sulfate/ Dextrose 100 ml @ 100 mls/hr ONCE ONCE IVPB ; Start 02/28/19 at 12:00; Stop 02/28/19 at 12:59 Ann FERNANDEZ February 28, 2019 12:12
[2019-02-28] MEDS ORDERED: LACT-135 PO (12:20)
--- NOTE | 2019-02-28 12:35 | CONS ---
Assessment/Plan Assessment/Plan Hospital Course (Demo Recall) IMPRESSION: 1. Tachycardia c/w AF now converted to SR NL EF by echo 60-65 2. Possible congestive heart failure by chest x-ray with the patient having the onset of acute renal failure at this time. 3. Hypertension 4. Postoperative status post reversal colostomy. 5. Fevers postop. 6. Renal failure, acute 7. History of colon carcinoma status post prior colectomy with colostomy with anastomatic leak by abd CT and now post-op s/p repeat surgery with removal abscess and placement of drains 8. Hypernatremia, improved 9. Hypomagnesemia-improved 10. Leukocytosis. Recc: -Tele -Continue PO BB/CCB as tolerated -Pain control -Continue abx's and f/u cx data -Follow volume status closely off of lasix -Continue lovenox -routine post-op care -now back on TPN Consultation Date/Type/Reason Admit Date/Time Jan 21, 2019 at 06:18 Initial Consult Date 01/23/19 Type of Consult Cardiology Reason for Consultation PAF Requesting Provider: ODELL PACHECO Date/Time of Note DATE: 02/28/19 TIME: 12:34 Exam/Review of Systems Vital Signs Vitals Vital Signs Date Temp Pulse Resp B/P (MAP) Pulse Ox O2 O2 Flow FiO2 Time Delivery Rate 02/28/19 72 12:04 02/28/19 97.8 22 105/69 96 Room Air 11:45 (81) 02/25/19 21 20:56 Intake and Output 02/27/19 02/27/19 02/28/19 1515:00 23:00 07:00 IntakeIntake Total 1580 ml 1500 ml OutputOutput Total 1450 ml 900 ml BalanceBalance 130 ml 600 ml Exam Exam Review of Systems: CONSTITUTIONAL: No fevers, chills. PULMONARY: No sob CARDIOVASCULAR: No chest pain/palpitations GASTROINTESTINAL: No nausea/vomiting. GENITOURINARY: No hematuria/dysuria. MUSCULOSKELETAL: No myagias/arthalgias. PSYCHIATRIC: The patient denies depression. NEUROLOGIC: No weakness Constitutional: alert Psych: no complaints Head: normocephalic ENMT: mucosa pink and moist Neck: supple, jvd (9 cm water) Respiratory: diminished breath sounds (at bases/B) Cardiovascular: regular rate and rhythm Gastrointestinal: soft, other (covered by dressing) Musculoskeletal: muscle tone (normal) Extremities: edema (none) Neurological: other (No focalm deficits) Labs Result Diagram: 02/28/19 0602/28/19 0603 Results 24hrs Laboratory Tests Test 02/27/19 20:26 02/28/19 06:03 02/28/19 08:46 Bedside Glucose 148 134 White Blood Count 4.8 Red Blood Count 2.91 L Hemoglobin 8.3 L Hematocrit 26.1 L Mean Corpuscular Volume 89.7 Mean Corpuscular Hemoglobin 28.5 L Mean Corpuscular Hemoglobin Concent 31.8 L Red Cell Distribution Width 13.2 Platelet Count 228 Mean Platelet Volume 11.3 H Immature Granulocytes % 1.000 H Neutrophils % 75.4 Lymphocytes % 8.5 L Monocytes % 12.2 H Eosinophils % 2.5 Basophils % 0.4 Nucleated Red Blood Cells % 0.0 Immature Granulocytes # 0.050 H Neutrophils # 3.7 Lymphocytes # 0.4 L Monocytes # 0.6 Eosinophils # 0.1 Basophils # 0.0 Nucleated Red Blood Cells # 0.0 Sodium Level 137 Potassium Level 4.1 Chloride Level 108 Carbon Dioxide Level 21 Anion Gap 8 Blood Urea Nitrogen 17 Creatinine 0.91 Est Glomerular Filtrat Rate mL/min > 60 Glucose Level 112 Calcium Level 8.9 Phosphorus Level 3.6 Magnesium Level 1.7 Prealbumin 13.6 L Medications Medications Current Medications Metoprolol Tartrate (Lopressor) 5 mg Q4H PRN IV HR>110 HOld SBP<100 Last administered on 02/18/19 18:53; Admin Dose 5 MG; Start 01/23/19 at 20:30 Acetaminophen (Tylenol Tab) 650 mg Q6H PRN PO MILD PAIN(1-3)OR ELEVATED TEMP Last administered on 02/26/19at 19:01; Admin Dose 650 MG; Start 01/29/19 at 23:30 Al Hydrox/Mg Hydrox/Simethicone (Mag-Al Plus) 30 ml Q4H PRN PO GASTROINTESTINAL UPSET Last administered on 01/30/19at 18:39; Admin Dose 30 ML; Start 01/29/19 at 23:30 Atenolol (Tenormin) 50 mg BID PO Last administered on 02/28/19at 08:37; Admin Dose 50 MG; Start 01/30/19 at 21:00 Morphine Sulfate (morphine) 2 mg Q2H PRN IV PAIN LEVEL 6-10; Start 02/11/19 at 16:30 Acetaminophen/ Hydrocodone Bitart ([place] (5/325)) 1 tab Q6H PRN PO PAIN LEVEL 6-10; Start 02/11/19 at 16:30 Enoxaparin Sodium (Lovenox) 80 mg BID SC Last administered on 02/28/19 08:40; Admin Dose 80 MG; Start 02/16/19 at 21:00 Diltiazem HCl (Cardizem Cd) 120 mg BID PO Last administered on 02/28/19 08:37; Admin Dose 120 MG; Start 02/18/19 at 21:00 Loperamide HCl (Imodium Cap) 4 mg QID PO Last administered on 02/28/19 08:37; Admin Dose 4 MG; Start 02/22/19 at 13:00 Ondansetron HCl (Zofran Inj) 4 mg Q6H PRN IV NAUSEA AND/OR VOMITING Last administered on 02/28/19 00:59; Admin Dose 4 MG; Start 02/22/19 at 16:00 Diagnostic Test (Pha) (Accu-Chek) 1 ea Q12 XX Last administered on 02/28/19 08:47; Admin Dose 1 EA; Start 02/24/19 at 09:00 Metronidazole 100 ml @ 100 mls/hr Q8 IVPB Last administered on 02/28/19 05:15; Admin Dose 100 MLS/HR; Start 02/24/19 at 22:00 Total Parenteral Nutrition 1,000 ml @ 60 mls/hr [id number] IV Last administered on 02/28/19 00:59; Admin Dose 60 MLS/HR; Start 02/26/19 at 16:00 Guaifenesin (Robitussin Liquid Cup) 100 mg Q4H PRN PO COUGH Last administered on 02/25/19 17:58; Admin Dose 100 MG; Start 02/25/19 at 17:00 IV Flush (NS 10 ml) 10 ml Q8 PRN IV IV PROTOCOL; Start 02/26/19 at 18:00 Levofloxacin/ Dextrose 100 ml @ 100 mls/hr Q24H IVPB Last administered on 02/27/19 17:34; Admin Dose 100 MLS/HR; Start 02/27/19 at 17:30 Magnesium Sulfate/ Dextrose 100 ml @ 100 mls/hr ONCE ONCE IVPB Last administered on 02/28/19at 12:12; Admin Dose 100 MLS/HR; Start 02/28/19 at 12:00; Stop 02/28/19 at 12:59 EUGENE ANDERSON February 28, 2019 12:35
--- NOTE | 2019-02-28 13:16 | DS ---
Date/Time of Note Date/Time of Note DATE: 02/28/19 TIME: 13:11 Discharge Summary Admission/Discharge Info Admit Date/Time Jan 21, 2019 at 06:18 Discharge Date/Time Patient Condition: Stable Hx of Present Illness The patient is a 59-year-old gentleman with a history of colon cancer diagnosed back in 10/2017. The patient in 12/2017 underwent left colon resection and leslee evaluation showed moderately differentiated metastatic carcinoma in 1/9 nodes. The patient was given chemotherapy and had an end colostomy. The patient was brought in to hospital today and underwent open Reagan reversal and colorectal low pelvic anastomosis, segmental partial colectomy, lysis of adhesion, open incarcerated incisional hernia repair, open incarcerated pawan tomal hernia repair. The patient is being admitted for the repair. Postoperatively, the patient is lethargic, but responds to verbal commands. Denies any chest pain. Since admission the patient has not had any vomiting, no reported fever or chills, no reported focal weakness. The patient's blood pressure has been running in the low 100s and high 90s. The patient also has history of left upper extremity deep venous thrombosis and had been taking Eliquis for that. The patient also has history of hypertension, dyslipidemia and was on multiple antihypertensive medications, although the patient's blood pressure is close to 100. The patient is moving all extremities, no resting leg pain. Other than postoperative pain, rest of the systems were unremarkable. PAST MEDICAL HISTORY: The patient has history of paroxysmal atrial fibrillation and was seen by Dr. Alejandro last year. Echocardiogram revealed EF of 60% to 65%. The patient's past medical history significant for postoperative abdominal wound infection during last admission and sepsi Hospital Course Patient discharged home with home health services for PICC line and abdominal drain care, TPN for dehydration and malnutrition dosed by pharmacy for 3 weeks, Levaquin and Flagyl IV for 1 more week. -Atrial fibrillation with rapid ventricular response, currently in sinus rhythm. Dr. Alejandro is following in cardiology consultation. Continue Lovenox and Cardizem, resume Eliquis on DC. -Anastomotic leak and intra-abdominal abscess, S/p CT guided drainage of abscess in LLQ on 02/01/2019. Status post laparotomy, washout of the peritoneal cavity, placement of a diverting loop ileostomy in right lower quadrant for protection of the anastomosis in the colorectal area on 02/11/[address] Art. Continue antibiotics per ID recommendation. -Sepsis secondary to intra-abdominal infection and pneumonia, resolved, s/p treatment with antibiotics. Dr. Vázquez is following in infection disease consultation. -R pleural effusion, s/p R sided thoracentesis on 02/05/2019 -S/p open Reagan reversal and colorectal low pelvic anastomosis, segmental partial colectomy, and open incarcerated incisional and parastomal hernia repairs with mesh by Dr. Art on 01/21/2019. Continue [place] and Dilaudid as needed for pain and Zofran as needed for nausea. -Stage III sigmoid colon cancer, status post surgery and chemo in 2018. -Acute kidney injury on chronic kidney disease, monitor urine output BUN and creatinine. Dr. Stuart is following in nephrology consultation. -Acute on chronic diastolic CHF -Protein calorie malnutrition, improved. patient tolerates a regular diet, restarted on TPN due to dehydration and malabsorption due to large ileostomy output. -Obstructive sleep apnea -History of hypertension -History of left upper extremity DVT, status post bilateral upper extremity ultrasound on 02/05/2019: No sonographic evidence for bilateral upper extremity deep venous thrombosis. Superficial thrombus in the right cephalic vein in the forearm. Cephalic vein in the upper arm is patent. Superficial thrombus in the left cephalic vein in the antecubital fossa. Cephalic vein in the upper arm is patent. Plan of care discussed with Dr. Fox. Home Meds Active Scripts Lactose-Reduced Food (Ensure Original) 237 Ml Liquid, 237 ML PO AC A, #10 Prov:ODELL PACHECO 02/28/19 Diltiazem Hcl* (Cardizem CD*) 120 Mg Cap.sr.24h, 120 MG PO BID for 30 Days Prov:ODELL PACHECO 02/28/19 Atenolol* (Atenolol*) 50 Mg Tablet, 50 MG PO BID for 30 Days, TAB Prov:ODELL PACHECO 02/28/19 Loperamide Hcl* (Loperamide Hcl*) 2 Mg Cap, 4 MG PO QID for 7 Days, CAP Prov:ODELL PACHECO 02/28/19 Carvedilol* (Carvedilol*) 25 Mg Tablet, 25 MG PO BID for 30 Days, TAB Prov:ODELL PACHECO 01/15/18 Furosemide* (Furosemide*) 20 Mg Tablet, 20 MG PO DAILY for 30 Days, TAB Prov:ODELL PACHECO 01/15/18 Reported Medications Apixaban* (Eliquis*) 5 Mg Tablet, 5 MG PO BID, TAB 11/02/18 Losartan Potassium* (Losartan Potassium*) 100 Mg Tablet, 100 MG PO DAILY, TAB 11/02/18 Nifedipine* (Nifedipine ER*) 60 Mg Tablet.sa, 60 MG PO BID, TAB.SA 11/02/18 Atorvastatin Calcium* (Atorvastatin Calcium*) 20 Mg Tablet, 20 MG PO QHS, #30 TAB 01/07/18 Follow-up Plan d/c home when arranged to for drain and PICC line care, TPN for 3 weeks, RX to dose, labs and Levaquin and Flagyl IV for 7 days. Pt to f/up with Dr Art in 1-2 weeks. Primary Care Provider [facility] Time spent on discharge: > 30 minutes Pending Labs Laboratory Tests Test 02/27/19 20:26 02/28/19 06:03 02/28/19 08:46 Bedside Glucose 148 mg/dL (70-220) 134 mg/dL (70-220) White Blood Count 4.8 10^3/ul (4.8-10.8) Red Blood Count 2.91 10^6/ul (4.70-6.10) Hemoglobin 8.3 g/dl (14.0-18.0) Hematocrit 26.1 % (42.0-52.0) Mean Corpuscular 89.7 Volume fl (82.0-101.0) Mean Corpuscular 28.5 pg (29.0-33.0) Hemoglobin Mean Corpuscular 31.8 Hemoglobin Concent g/dl (32.0-37.0) Red Cell 13.2 % (11.5-14.5) Distribution Width Platelet Count 228 10^3/UL (140-415) Mean Platelet 11.3 fl (7.4-10.4) Volume Immature 1.000 Granulocytes % % (0.001-0.429) Neutrophils % 75.4 % (39.0-77.0) Lymphocytes % 8.5 % (15.0-51.0) Monocytes % 12.2 % (0.0-11.0) Eosinophils % 2.5 % (0.0-7.0) Basophils % 0.4 % (0.0-2.0) Nucleated Red Blood 0.0 Cells % /100WBC (0.0-0.0) Immature 0.050 Granulocytes # 10^3/ul (0.0-0.031) Neutrophils # 3.7 10^3/ul (1.6-7.5) Lymphocytes # 0.4 10^3/ul (0.8-2.9) Monocytes # 0.6 10^3/ul (0.3-0.9) Eosinophils # 0.1 10^3/ul (0.0-0.5) Basophils # 0.0 10^3/ul (0.0-0.1) Nucleated Red Blood 0.0 Cells # 10^3/ul (0.0-0.0) Sodium Level 137 mmol/L (135-144) Potassium Level 4.1 mmol/L (3.5-5.1) Chloride Level 108 mmol/L (97-110) Carbon Dioxide 21 mmol/L (21-31) Level Anion Gap 8 (5-13) Blood Urea 17 mg/dl (7-20) Nitrogen Creatinine 0.91 mg/dl (0.61-1.24) Est Glomerular > 60 mL/min (>60) Filtrat Rate mL/min Glucose Level 112 mg/dl (70-220) Calcium Level 8.9 mg/dl (8.4-10.2) Phosphorus Level 3.6 mg/dl (2.5-4.9) Magnesium Level 1.7 mg/dl (1.7-2.5) Prealbumin 13.6 mg/dl (17.6-36.0) ODELL PACHECO February 28, 2019 13:16
[2019-02-28] MEDS: LEVOFLOXACIN 500MG/D5W (PMX) 100 ML IVPB SCH (14:17)
== END 2019-02-28 16:25 | disposition home health service (06) | DRG 329 ==
LOC: REC 06:18 → 6WM 13:22 → ICU 02-11 18:02 → TEL 02-12 19:00
PROVIDERS: ADMIT Surgery; ATTEND Internal Medicine
PROC: 0WUF0JZ Supplement Abdominal Wall with Synthetic Substitute, Open Approach (ICD-10-PCS; 2019-01-21)
PROC: 0DBG0ZZ Excision of Left Large Intestine, Open Approach (ICD-10-PCS; 2019-01-21)
PROC: 0DN80ZZ Release Small Intestine, Open Approach (ICD-10-PCS; 2019-01-21)
PROC: 0DNE0ZZ Release Large Intestine, Open Approach (ICD-10-PCS; 2019-01-21)
PROC: 0DNP0ZZ Release Rectum, Open Approach (ICD-10-PCS; 2019-01-21)
PROC: 0DNW0ZZ Release Peritoneum, Open Approach (ICD-10-PCS; 2019-01-21)
PROC: 0HB7XZZ Excision of Abdomen Skin, External Approach (ICD-10-PCS; 2019-01-21)
PROC: 0DSM0ZZ Reposition Descending Colon, Open Approach (ICD-10-PCS; principal; 2019-01-21 07:30)
PROC: 0W9J30Z Drainage of Pelvic Cavity with Drainage Device, Percutaneous Approach (ICD-10-PCS; 2019-02-01)
PROC: 0W993ZZ Drainage of Right Pleural Cavity, Percutaneous Approach (ICD-10-PCS; 2019-02-05)
PROC: 0D1B0Z4 Bypass Ileum to Cutaneous, Open Approach (ICD-10-PCS; 2019-02-11)
PROC: 0DNB0ZZ Release Ileum, Open Approach (ICD-10-PCS; 2019-02-11)
PROC: 02H633Z Insertion of Infusion Device into Right Atrium, Percutaneous Approach (ICD-10-PCS; 2019-02-26)
DX: Z43.3 Encounter for attention to colostomy (principal); N17.0 Acute kidney failure with tubular necrosis; J18.9 Pneumonia, unspecified organism; I50.33 Acute on chronic diastolic (congestive) heart failure; E87.2 Acidosis; I13.0 Hypertensive heart and chronic kidney disease with heart failure and stage 1 through stage 4 chronic kidney disease, or unspecified chronic kidney disease; I82.722 Chronic embolism and thrombosis of deep veins of left upper extremity; K43.0 Incisional hernia with obstruction, without gangrene; T81.41XA Infection following a procedure, superficial incisional surgical site, initial encounter; T81.44XA Sepsis following a procedure, initial encounter; E87.0 Hyperosmolality and hypernatremia; K56.600 Partial intestinal obstruction, unspecified as to cause; J98.11 Atelectasis; J90 Pleural effusion, not elsewhere classified; L02.211 Cutaneous abscess of abdominal wall; I31.3 Pericardial effusion (noninflammatory); T81.89XA Other complications of procedures, not elsewhere classified, initial encounter; D64.9 Anemia, unspecified; E83.42 Hypomagnesemia; E78.5 Hyperlipidemia, unspecified; E11.42 Type 2 diabetes mellitus with diabetic polyneuropathy; E66.9 Obesity, unspecified; E87.79 Other fluid overload; B96.5 Pseudomonas (aeruginosa) (mallei) (pseudomallei) as the cause of diseases classified elsewhere; F41.9 Anxiety disorder, unspecified; G89.18 Other acute postprocedural pain; G47.33 Obstructive sleep apnea (adult) (pediatric); I48.0 Paroxysmal atrial fibrillation; K70.31 Alcoholic cirrhosis of liver with ascites; K59.00 Constipation, unspecified; N18.9 Chronic kidney disease, unspecified; R14.0 Abdominal distension (gaseous); Z92.21 Personal history of antineoplastic chemotherapy; Z92.3 Personal history of irradiation; Z85.038 Personal history of other malignant neoplasm of large intestine; Z90.49 Acquired absence of other specified parts of digestive tract; Z87.891 Personal history of nicotine dependence; Z68.34 Body mass index [BMI] 34.0-34.9, adult; Z79.01 Long term (current) use of anticoagulants
CPT/HCPCS: 32555; 36569; 71045; 71046; 74018; 74176; 74177; 76604; 76775; 76937; 77012; 80048; 80053; 80202; 81001; 81003; 82043; 82565; 82962; 83605; 83615; 83735; 83880; 84100; 84134; 84145; 84155; 84157; 84300; 84443; 84478; 84484; 84520; 85025; 85610; 85730; 86703; 87070; 87075; 87081; 87086; 87102; 87116; 87400; 88104; 88305; 89220; 93005; 93306; 93970; 94640; 94664; 97110; 97116; 97161; 97164; 97530; C1729; J0131; J0171; J0295; J0360; J0692; J0696; J0744; J1170; J1450; J1650; J1940; J1956; J2060; J2175; J2185; J2250; J2270; J2274; J2370; J2405; J2543; J2710; J2765; J2795; J3010; J3370; J3475; J3480; J7030; J7040; J7042; J7050; J7070; P9047; Q4166; Q9967

== ENCOUNTER 2019-03-08 22:58 | Inpatient (IN) | payer OTHER ==
[~2019-03-08] VITALS: Ht 170.2 cm; Wt 87.0 kg
[~2019-03-08 22:58] MED LIST changes: +ATEN50TA PO; -CAPE500T17 PO; -CARV25TA79 PO; +DILT120C77 PO; -FURO20TA3 PO; +LACT-135 PO; +LOPE-123 PO; -LOSA100T15 PO; -NIFE60TA18 PO
--- NOTE | 2019-03-08 23:47 | ERD ---
ER Documentation Chief Complaint Chief Complaint PICC NOT WORKING HPI The patient is a 59-year-old male, presenting to the ER because of malfunction of the left upper extremity PICC line. He received TPN and antibiotics Levaquin IV and Flagyl IV due to recent abdominal surgery from extensive abdominal surgery due to colon cancer. He denies fever, chills, neck pain, chest pain, dyspnea, complains of vague minimal abdominal pain, denies vomiting, dysuria, diarrhea. He does not smoke nor drink Medical history: atrial fibrillation, h/o left upper extremity DVT,, dyslipidemia, sleep apnea, hypertension, history of CHF, colon cancer treated with chemotherapy and surgery Past surgical history: Ileostomy, colostomy, extended She intestinal surgery due to colon cancer, incarcerated incisional/parastomal hernia ROS All systems reviewed and are negative except as per history of present illness. Medications Home Meds Active Scripts Lactose-Reduced Food (Ensure Original) 237 Ml Liquid, 237 ML PO AC A, #10 Prov:ODELL PACHECO 02/28/19 Diltiazem Hcl* (Cardizem CD*) 120 Mg Cap.sr.24h, 120 MG PO BID for 30 Days Prov:ODELL PACHECO 02/28/19 Atenolol* (Atenolol*) 50 Mg Tablet, 50 MG PO BID for 30 Days, TAB Prov:ODELL PACHECO 02/28/19 Reported Medications Apixaban* (Eliquis*) 5 Mg Tablet, 5 MG PO BID, TAB 11/02/18 Atorvastatin Calcium* (Atorvastatin Calcium*) 20 Mg Tablet, 20 MG PO QHS, #30 TAB 01/07/18 Discontinued Scripts Loperamide Hcl* (Loperamide Hcl*) 2 Mg Cap, 4 MG PO QID for 7 Days, CAP Prov:ODELL PACHECO 02/28/19 Allergies Allergies: Coded Allergies: No Known Allergy (Unverified , 03/09/19) PMhx/Soc History of Surgery: Yes (colostomy insertion 12/2017) Anesthesia Reaction: No Hx Neurological Disorder: No Hx Respiratory Disorders: Yes (VIJAY) Hx Cardiac Disorders: Yes (HTN, CHF) Hx Psychiatric Problems: No Hx Miscellaneous Medical Probl: No Hx Alcohol Use: Yes Hx Substance Use: No Hx Tobacco Use: Yes Physical Exam Vitals Vital Signs Date Temp Pulse Resp B/P (MAP) Pulse Ox O2 O2 Flow FiO2 Time Delivery Rate 03/09/19 98.6 03:10 03/09/19 98.6 83 16 136/79 96 Room Air 03:04 (98) 03/08/19 101.6 78 18 136/78 97 Room Air 23:53 (97) 03/08/19 101.0 85 18 149/92 96 23:17 (111) Physical Exam Const: No acute distress. Head: Atraumatic. Eyes: Normal Conjunctiva. ENT: Normal External Ears, Nose and Mouth. Neck: Full range of motion. No meningismus. Resp: Clear to auscultation bilaterally. Cardio: Regular rate and rhythm. Abd: Soft, non distended, normal bowel sounds, minimal abdominal discomfort, no rigidity/rebound/CVA tenderness. Skin: No petechiae or rashes. Back: No midline or flank tenderness. Ext: No cyanosis, or edema. Neur: Awake and alert. No focal deficit Psych: Normal Mood and Affect. Result Diagram: 03/09/19 0024 03/09/19 0024 Results 24 hrs Laboratory Tests Test 03/09/19 00:24 03/09/19 00:27 03/09/19 00:38 White Blood Count 6.3 10^3/ul Red Blood Count 3.03 10^6/ul Hemoglobin 8.4 g/dl Hematocrit 26.3 % Mean Corpuscular Volume 86.8 fl Mean Corpuscular Hemoglobin 27.7 pg Mean Corpuscular 31.9 g/dl Hemoglobin Concent Red Cell Distribution Width 13.6 % Platelet Count 281 10^3/UL Mean Platelet Volume 10.6 fl Immature Granulocytes % 1.100 % Neutrophils % 77.6 % Lymphocytes % 9.6 % Monocytes % 8.6 % Eosinophils % 2.9 % Basophils % 0.2 % Nucleated Red Blood Cells % 0.0 /100WBC Immature Granulocytes # 0.070 10^3/ul Neutrophils # 4.9 10^3/ul Lymphocytes # 0.6 10^3/ul Monocytes # 0.5 10^3/ul Eosinophils # 0.2 10^3/ul Basophils # 0.0 10^3/ul Nucleated Red Blood Cells # 0.0 10^3/ul Prothrombin Time 17.1 Sec Prothrombin Time Ratio 1.3 INR International Normalized Ratio 1.38 Activated Partial Thromboplast 49.0 Sec Time Sodium Level 134 mmol/L Potassium Level 3.8 mmol/L Chloride Level 103 mmol/L Carbon Dioxide Level 23 mmol/L Anion Gap 8 Blood Urea Nitrogen 17 mg/dl Creatinine 0.69 mg/dl Est Glomerular Filtrat Rate mL/min > 60 mL/min Glucose Level 145 mg/dl Calcium Level 8.7 mg/dl Total Bilirubin 0.4 mg/dl Direct Bilirubin 0.00 mg/dl Indirect Bilirubin 0.4 mg/dl Aspartate Amino Transf (AST/SGOT) 28 IU/L Alanine 24 IU/L Aminotransferase (ALT/SGPT) Alkaline Phosphatase 190 IU/L Troponin I < 0.012 ng/ml Total Protein 6.5 g/dl Albumin 3.1 g/dl Globulin 3.40 g/dl Albumin/Globulin Ratio 0.91 POC Venous Lactate 1.4 mmol/L Bedside Urine pH (LAB) 5.5 Bedside Urine Protein (LAB) 1+ Bedside Urine Glucose (UA) Negative Bedside Urine Ketones (LAB) Trace Bedside Urine Blood Negative Bedside Urine Nitrite (LAB) Negative Bedside Urine Leukocyte Esterase Negative (L Current Medications Medications Dose Sig/[place] Start Time Status Last (Trade) Ordered Route PRN Stop Time Admin Dose Reason Admin Alteplase, 2 mg MAY REPEAT 03/09/19 03/09/19 Recombinant X1 PRN 00:30 02:30 (Cathflo CATHETER IF (Activase)) CATHETER REMAINS OCCULUDED 650 mg ONCE ONCE 03/09/19 DC Acetaminophen PO 03:00 (Tylenol 03/09/19 03:01 Tab) Procedures/[place] [id number] Radiology Main Line: [phone] DIAGNOSTIC IMAGING REPORT Patient: ASHTYN PATRICK : 1960 Age: 59 Sex: M MR #: [id number] DOS: 03/09/19 0002 Ordering MD: VERONIKA FLORIAN MD Location: E/R Room/Bed: PROCEDURE: XR Chest. CLINICAL INDICATION: Possible Sepsis TECHNIQUE: Single frontal view of the chest COMPARISON: 02/26/2019 FINDINGS: Left upper extremity PICC again seen, with tip retracted in the study interval, now terminating in the region of the cavoatrial junction. Tortuous aorta is noted with atherosclerotic calcifications. Cardiac and mediastinal contours otherwise unremarkable. Moderate right-sided pleural effusion is identified with consolidation. Findings are grossly unchanged compared to prior study, given differences in technique and patient positioning. No pneumothorax identified. Spinal degenerative changes noted. No acute bony abnormality identified. Remaining soft tissues unremarkable. IMPRESSION: Slight retraction of the left upper extremity PICC compared to prior study 02/26/2019, now terminating in the region of the cavoatrial junction. Persistent right lung consolidation with moderate pleural effusion. Findings are grossly unchanged. RPTAT:HCLE Physician Cathi Date Time Electronically viewed and signed by Physician Cathi on 03/09/2019 02:14 cE/ CC: VERONIKA FLORIAN MD [phone] EKG: Read by emergency physician Rate/Rhythm: Normal Sinus Rhythm 84 beats/min QRS, ST, T-waves: No ST elevation, no T inversion, RWA, nonspecific ST abnormality Impression: Abnormal EKG MEDICAL MAKING DECISION: The patient is a 59-year-old male, presenting with acute malfunction of picklike, did not work after we infuse Cathflo. He was treated with Tylenol for fever, vancomycin IV and Zosyn IV empirically due to acute febrile illness with recent abdominal infection The differential diagnoses considered include but are not limited to pneumonia, empyema, UTI, nephritis, recurrent abdominal infection/abscess Departure Diagnosis: Primary Impression: Febrile illness Additional Impressions: Occluded PICC line Pleural effusion, right Anemia Condition: Stable Comments I discussed the findings with the patient. I discussed the patient with Dr. Fox at 3:20 AM, who was made aware of the lab, the treatment, the patient condition. The patient is admitted to [facility] Disclaimer: Inadvertent spelling and grammatical errors are likely due to EHR/dictation software use and do not reflect on the overall quality of patient care. Also, please note that the electronic time recorded on this note does not necessarily reflect the actual time of the patient encounter. VERONIKA FLORIAN MD March 08, 2019 23:47
[2019-03-09] MEDS ORDERED: ALTEPLASE (CATHFLO) 2 MG INJ CATHETER PRN (00:30)
[2019-03-09] MEDS ORDERED: ACETAMINOPHEN 325 MG TAB PO ONE (03:00)
[2019-03-09] MEDS ORDERED: VANCOMYCIN 1 GM (PMX) 250 ML IVPB ONE (03:30)
[2019-03-09] MEDS ORDERED: PIPER-TAZO 3.375 GM IV (PMX) 100 ML IVPB ONE (03:30)
[2019-03-09 04:32] VITALS: Ht 170.2 cm; Wt 87.0 kg
[2019-03-09] MEDS ORDERED: HYDROmorphONE 0.5 MG/0.5 ML SYG IV PRN (06:00)
[2019-03-09] MEDS ORDERED: HYDROCODONE/APAP (5/325) TAB PO PRN (06:00)
[2019-03-09] MEDS: INSULIN ASPART [NOVOLOG] 3 ML PEN SC SCH ×3 (06:00→17:29)
[2019-03-09] MEDS ORDERED: VANCOMYCIN IV PER PHARMACY XX SCH (06:00)
[2019-03-09] MEDS ORDERED: PIPER-TAZO 3.375 GM IV (PMX) 100 ML IVPB SCH (06:00)
[2019-03-09] MEDS ORDERED: GLUCOSE GEL 15 GRAM TUBE BUCCAL PRN (06:30)
[2019-03-09] MEDS ORDERED: DEXTROSE 50% 50 ML SYRINGE IV PRN ×2 (06:30)
[2019-03-09] MEDS ORDERED: GLUCAGON 1 MG INJ IM PRN (06:30)
[2019-03-09] MEDS ORDERED: GLUCOSE GEL 15 GRAM TUBE PO PRN ×2 (06:30)
[2019-03-09 08:00] VITALS: BP 147/81; PULSE 89; RESP 18
[2019-03-09] MEDS: PIPER-TAZO 3.375 GM IV (PMX) 100 ML IVPB SCH ×3 (08:13→18:02)
[2019-03-09] MEDS: ENOXAPARIN 40 MG/0.4 ML SYG SC SCH (08:17)
[2019-03-09] MEDS: ACETAMINOPHEN 325 MG TAB PO PRN (09:33)
[2019-03-09] MEDS ORDERED: PENDING SANTYL ORDER FOR WOUND CARE XX PRN (12:00)
[2019-03-09] MEDS ORDERED: TPN 1,000 ML IV SCH (12:35)
[2019-03-09] MEDS: ACCU-CHEK XX SCH ×3 (13:00→21:00)
[2019-03-09 14:00] VITALS: BP 145/81; PULSE 79; RESP 18
[2019-03-09] MEDS ORDERED: VANCOMYCIN 1 GM 250 ML IVPB SCH (15:00)
[2019-03-09] MEDS: VANCOMYCIN HCL 1.25 GM in SOD CHLORIDE 0.9% 250 ML IVPB SCH (15:04)
[2019-03-09] MEDS: TPN 1,000 ML IV SCH (18:02)
[2019-03-09 20:00] VITALS: BP 145/73; PULSE 95; RESP 18
--- NOTE | 2019-03-09 20:29 | HP ---
Date/Time of Note Date/Time of Note DATE: 03/09/19 TIME: 20:25 Assessment/Plan VTE Prophylaxis Risk score (from Ns)>0 risk: 1 SCD applied (from [facility] [place]): No SCD contraindicated: other Pharmacological prophylaxis: other Pharm contraindication: other Lines/Catheters IV Catheter Type (from [facility]): PICC Line Central line still needed: Yes Urinary Cath still in place: No Assessment/Plan Assessment/Plan - Febrile illness possibly 2/2 post op complication - Admit to unit - id consult - surgery consult - admission orders done - SCD for dvt prophylaxis - Occluded PICC line - picc line niurse consult - cXR - US doppler r/o DVT - Pleural effusion, right - Pulm consult appreciated -Hx -R pleural effusion, s/p R sided thoracentesis on 02/05/2019 -Anemia - monitor CBC -Former smoker - Reinforce smoking cessation -Hx Atrial fibrillation with rapid ventricular response -Stage III sigmoid colon cancer, status post surgery and chemo in 2018. -Acute kidney injury on chronic kidney disease- BUN/Cr WNL - monitor urine output BUN and creatinine. - nephro consult appreciated -Acute on chronic diastolic CHF - cardiology consult appreciated -Protein calorie malnutrition- on TPN - dietary consult -Obstructive sleep apnea -History of hypertension -History of left upper extremity DVT, status post bilateral upper extremity ultrasound on 02/05/2019: No sonographic evidence for bilateral upper extremity deep venous thrombosis. Superficial thrombus in the right cephalic vein in the forearm. Cephalic vein in the upper arm is patent. Superficial thrombus in the left cephalic vein in the antecubital fossa. Cephalic vein in the upper arm is patent. Further recommendations based on clinical course. Plan of care discussed with Dr. Fox. Result Diagram: 03/09/19 0024 03/09/19 1335 Results 24hrs Laboratory Tests Test 03/09/19 00:24 03/09/19 00:27 03/09/19 00:38 03/09/19 04:01 White Blood Count 6.3 # Red Blood Count 3.03 L Hemoglobin 8.4 L Hematocrit 26.3 L Mean Corpuscular 86.8 Volume Mean Corpuscular 27.7 L Hemoglobin Mean Corpuscular 31.9 L Hemoglobin Concent Red Cell 13.6 Distribution Width Platelet Count 281 # Mean Platelet Volume 10.6 H Immature 1.100 H Granulocytes % Neutrophils % 77.6 H Lymphocytes % 9.6 L Monocytes % 8.6 Eosinophils % 2.9 Basophils % 0.2 Nucleated Red Blood 0.0 Cells % Immature 0.070 H Granulocytes # Neutrophils # 4.9 Lymphocytes # 0.6 L Monocytes # 0.5 Eosinophils # 0.2 Basophils # 0.0 Nucleated Red Blood 0.0 Cells # Prothrombin Time 17.1 H Prothrombin Time 1.3 Ratio INR International 1.38 Normalized Ratio Activated 49.0 H Partial Thromboplast Time Sodium Level 134 L Potassium Level 3.8 Chloride Level 103 Carbon Dioxide Level 23 Anion Gap 8 Blood Urea Nitrogen 17 Creatinine 0.69 Est Glomerular > 60 Filtrat Rate mL/min Glucose Level 145 Calcium Level 8.7 Total Bilirubin 0.4 Direct Bilirubin 0.00 Indirect Bilirubin 0.4 Aspartate Amino 28 Transf (AST/SGOT) Alanine 24 Aminotransferase (AL T/SGPT) Alkaline Phosphatase 190 H Troponin I < 0.012 Total Protein 6.5 Albumin 3.1 L Globulin 3.40 H Albumin/Globulin 0.91 Ratio POC Venous Lactate 1.4 Bedside Urine pH 5.5 (LAB) Bedside Urine 1+ H Protein (LAB) Bedside Urine Negative Glucose (UA) Bedside Urine Trace H Ketones (LAB) Bedside Urine Blood Negative Bedside Urine Negative Nitrite (LAB) Bedside Urine Negative Leukocyte Esterase (L Lactic Acid Level 0.8 Test 03/09/19 05:01 03/09/19 06:58 03/09/19 12:15 03/09/19 13:35 Hemoglobin A1c 6.1 H Lactic Acid Level 1.1 Phosphorus Level 4.1 4.5 Magnesium Level 1.8 1.9 Prealbumin 11.4 L 12.0 L Triglycerides Level 96 88 Bedside Glucose 135 162 Sodium Level 137 Potassium Level 4.0 Chloride Level 105 Carbon Dioxide Level 24 Anion Gap 8 Blood Urea Nitrogen 13 Creatinine 0.69 Est Glomerular > 60 Filtrat Rate mL/min Glucose Level 127 Calcium Level 8.3 L Total Bilirubin 0.4 Direct Bilirubin 0.00 Indirect Bilirubin 0.4 Aspartate Amino 26 Transf (AST/SGOT) Alanine 21 Aminotransferase (AL T/SGPT) Alkaline Phosphatase 192 H Total Protein 6.5 Albumin 3.0 L Globulin 3.50 H Albumin/Globulin 0.85 Ratio Test 03/09/19 17:28 Bedside Glucose 129 HPI/ROS Admit Date/Time Admit Date/Time March 09, 2019 at 03:20 Hx of Present Illness HPI The patient is a 59-year-old male, presenting to the ER because of malfunction of the left upper extremity PICC line. He received TPN and antibiotics Levaquin IV and Flagyl IV due to recent abdominal surgery from extensive abdominal surgery due to colon cancer. He denies chest pain/palpitations/ shortness of breath/headache/ cough/ abdominal pain /NVD. Denies any fall /injury/ recent travel/contact with any sick. Denies any right/lrft calf pain. Denies focal weakness/numbness. Patient is admitted under Dr Fox for further treatment and evaluation. He does not smoke nor drink Family at bed side- all Qs answered.Plan of care dw Staff ROS All systems reviewed and are negative except as per history of present illness. Medications Home Meds Active Scripts Lactose-Reduced Food (Ensure Original) 237 Ml Liquid, 237 ML PO AC A, #10 Prov:ODELL PACHECO 02/28/19 Diltiazem Hcl* (Cardizem CD*) 120 Mg Cap.sr.24h, 120 MG PO BID for 30 Days Prov:ODELL PACHECO 02/28/19 Atenolol* (Atenolol*) 50 Mg Tablet, 50 MG PO BID for 30 Days, TAB Prov:ODELL PACHECO 02/28/19 Reported Medications Apixaban* (Eliquis*) 5 Mg Tablet, 5 MG PO BID, TAB 11/02/18 Atorvastatin Calcium* (Atorvastatin Calcium*) 20 Mg Tablet, 20 MG PO QHS, #30 TAB 01/07/18 Discontinued Scripts Loperamide Hcl* (Loperamide Hcl*) 2 Mg Cap, 4 MG PO QID for 7 Days, CAP Prov:ODELL PACHECO 02/28/19 Allergies Allergies: Coded Allergies: No Known Allergy (Unverified , 03/09/19) ROS Eyes: no complaints ENT: no complaints Respiratory: no complaints Cardiovascular: no complaints Gastrointestinal: no complaints, other (surgical abdomen) Musculoskeletal: no complaints Skin: no complaints Neurologic: no complaints Endocrine: no complaints Lymphatic: no complaints Psychological: nl mood/affect Immunologic: immunodeficiency PMH/Family/Social Past Medical History PMhx/Soc Past Medical history: atrial fibrillation, h/o left upper extremity DVT,, dyslipidemia, sleep apnea, hypertension, history of CHF, colon cancer treated with chemotherapy and surgery Past surgical history: Ileostomy, colostomy, extended She intestinal surgery due to colon cancer, incarcerated incisional/parastomal hernia History of Surgery: Yes (colostomy insertion 12/2017) Anesthesia Reaction: No Hx Neurological Disorder: No Hx Respiratory Disorders: Yes (VIJAY) Hx Cardiac Disorders: Yes (HTN, CHF) Hx Psychiatric Problems: No Hx Miscellaneous Medical Probl: No Hx Alcohol Use: Yes Hx Substance Use: No Hx Tobacco Use: Yes Medications Current Medications Alteplase, Recombinant (Cathflo (Activase)) 2 mg MAY REPEAT X1 PRN CATHETER IF CATHETER REMAINS OCCULUDED Last administered on 03/09/19at 02:30; Admin Dose 2 MG; Start 03/09/19 at 00:30 Vancomycin HCl (Vanco Iv Per Pharmacy) VANCOMYCIN PER PHARMACY PER PROTOCOL XX ; Start 03/09/19 at 06:00 Acetaminophen (Tylenol Tab) 650 mg Q4H PRN PO MILD PAIN(1-3)OR ELEVATED TEMP Last administered on 03/09/19at 09:33; Admin Dose 650 MG; Start 03/09/19 at 06:00 Acetaminophen/ Hydrocodone Bitart ([place] (5/325)) 1 tab Q4H PRN PO MODERATE PAIN LEVEL 4-6; Start 03/09/19 at 06:00 Hydromorphone HCl (Dilaudid) 0.5 mg Q3H PRN IV SEVERE PAIN LEVEL 7-10; Start 03/09/19 at 06:00 Enoxaparin Sodium (Lovenox) 40 mg DAILY SC Last administered on 03/09/19at 08:17; Admin Dose 40 MG; Start 03/09/19 at 09:00 Insulin Aspart (Novolog Insulin Pen) NOVOLOG *MILD* ALGORI... Q6 SC ; Start 03/09/19 at 06:00 Piperacillin Sod/ Tazobactam Sod 100 ml @ 200 mls/hr Q6 IVPB Last administered on 03/09/19at 18:02; Admin Dose 200 MLS/HR; Start 03/09/19 at 08:00 Miscellaneous Information 1 ea NOTE XX ; Start 03/09/19 at 06:30 Glucose (Glutose) 15 gm Q15M PRN PO DECREASED GLUCOSE; Start 03/09/19 at 06:30 Glucose (Glutose) 22.5 gm Q15M PRN PO DECREASED GLUCOSE; Start 03/09/19 at 06:30 Dextrose (D50w Syringe) 25 ml Q15M PRN IV DECREASED GLUCOSE; Start 03/09/19 at 06:30 Dextrose (D50w Syringe) 50 ml Q15M PRN IV DECREASED GLUCOSE; Start 03/09/19 at 06:30 Glucagon (Glucagen) 1 mg Q15M PRN IM DECREASED GLUCOSE; Start 03/09/19 at 06:30 Glucose (Glutose) 15 gm Q15M PRN BUCCAL DECREASED GLUCOSE; Start 03/09/19 at 06:30 Vancomycin HCl 1.25 gm/Sodium Chloride 250 ml @ 83.333 mls/ hr Q12H IVPB Last administered on 03/09/19at 15:04; Admin Dose 83.333 MLS/HR; Start 03/09/19 at 13:00 Miscellaneous Information (Pending Santyl Order For Wound Care) This patient mora... PRN PRN XX WOUND CARE; Start 03/09/19 at 12:00 Diagnostic Test (Pha) (Accu-Chek) 1 ea Q4 XX ; Start 03/09/19 at 13:00 Total Parenteral Nutrition 1,000 ml @ 80 mls/hr [id number] IV Last administered on 03/09/19at 18:02; Admin Dose 80 MLS/HR; Start 03/09/19 at 18:30 Coded Allergies: No Known Allergy (Unverified , 03/09/19) Past Surgical History Past Surgical Hx: other Family History Significant Family History: no pertinent family hx, other Social History Alcohol Use: none Smoking Status: Former smoker Drug Use: none Exam/Review of Systems Vital Signs Vitals Vital Signs Date Temp Pulse Resp B/P (MAP) Pulse Ox O2 O2 Flow FiO2 Time Delivery Rate 03/09/19 98.0 79 18 145/81 95 Room Air 14:00 (102) Exam Constitutional: alert, oriented, well developed Psych: nl mood/affect Head: atraumatic Eyes: nl lids, nl sclera ENMT: nl external ears & nose Neck: non-tender Respiratory: clear to auscultation Cardiovascular: nl pulses, other (S1S2) Gastrointestinal: soft, other (Surgical abdomen- DDi ) Musculoskeletal: nl extremities to inspection Extremities: normal pulses Neurological: nl mental status, nl speech Skin: nl turgor Lymph: nontender LUIS HARDWICK March 09, 2019 20:28
[2019-03-10] MEDS: ACCU-CHEK XX SCH ×2 (01:00→05:00)
[2019-03-10] MEDS: PIPER-TAZO 3.375 GM IV (PMX) 100 ML IVPB SCH ×4 (01:15→17:52)
[2019-03-10] MEDS: VANCOMYCIN HCL 1.25 GM in SOD CHLORIDE 0.9% 250 ML IVPB SCH ×2 (01:55→13:52)
[2019-03-10 02:00] VITALS: BP 150/77; PULSE 99; RESP 18
[2019-03-10] MEDS: INSULIN ASPART [NOVOLOG] 3 ML PEN SC SCH ×4 (05:42→17:51)
[2019-03-10] MEDS: TPN 1,000 ML IV SCH ×2 (05:45→18:38)
--- NOTE | 2019-03-10 07:05 | CONS ---
Consultation Date/Type/Reason Admit Date/Time March 09, 2019 at 03:20 Date/Time of Note DATE: 03/10/19 TIME: 07:05 Past Medical History Home Meds Active Scripts Lactose-Reduced Food (Ensure Original) 237 Ml Liquid, 237 ML PO AC A, #10 Prov:ODELL PACHECO 02/28/19 Diltiazem Hcl* (Cardizem CD*) 120 Mg Cap.sr.24h, 120 MG PO BID for 30 Days Prov:DANILOODELL GUADALUPE 02/28/19 Atenolol* (Atenolol*) 50 Mg Tablet, 50 MG PO BID for 30 Days, TAB Prov:DANILOCOLLINSODELL 02/28/19 Reported Medications Apixaban* (Eliquis*) 5 Mg Tablet, 5 MG PO BID, TAB 11/02/18 Atorvastatin Calcium* (Atorvastatin Calcium*) 20 Mg Tablet, 20 MG PO QHS, #30 TAB 01/07/18 Discontinued Scripts Loperamide Hcl* (Loperamide Hcl*) 2 Mg Cap, 4 MG PO QID for 7 Days, CAP Prov:JENNIE PACHECOLANA 02/28/19 Medications Current Medications Alteplase, Recombinant (Cathflo (Activase)) 2 mg MAY REPEAT X1 PRN CATHETER IF CATHETER REMAINS OCCULUDED Last administered on 03/09/19at 02:30; Admin Dose 2 MG; Start 03/09/19 at 00:30 Vancomycin HCl (Vanco Iv Per Pharmacy) VANCOMYCIN PER PHARMACY PER PROTOCOL XX ; Start 03/09/19 at 06:00 Acetaminophen (Tylenol Tab) 650 mg Q4H PRN PO MILD PAIN(1-3)OR ELEVATED TEMP Last administered on 03/09/19at 09:33; Admin Dose 650 MG; Start 03/09/19 at 06:00 Acetaminophen/ Hydrocodone Bitart ([place] (5/325)) 1 tab Q4H PRN PO MODERATE PAIN LEVEL 4-6; Start 03/09/19 at 06:00 Hydromorphone HCl (Dilaudid) 0.5 mg Q3H PRN IV SEVERE PAIN LEVEL 7-10; Start 03/09/19 at 06:00 Enoxaparin Sodium (Lovenox) 40 mg DAILY SC Last administered on 03/09/19at 08:17; Admin Dose 40 MG; Start 03/09/19 at 09:00 Insulin Aspart (Novolog Insulin Pen) NOVOLOG *MILD* ALGORI... Q6 SC ; Start 03/09/19 at 06:00 Piperacillin Sod/ Tazobactam Sod 100 ml @ 200 mls/hr Q6 IVPB Last administered on 03/10/19at 05:41; Admin Dose 200 MLS/HR; Start 03/09/19 at 08:00 Miscellaneous Information 1 ea NOTE XX ; Start 03/09/19 at 06:30 Glucose (Glutose) 15 gm Q15M PRN PO DECREASED GLUCOSE; Start 03/09/19 at 06:30 Glucose (Glutose) 22.5 gm Q15M PRN PO DECREASED GLUCOSE; Start 03/09/19 at 06:3 0 Dextrose (D50w Syringe) 25 ml Q15M PRN IV DECREASED GLUCOSE; Start 03/09/19 at 06:30 Dextrose (D50w Syringe) 50 ml Q15M PRN IV DECREASED GLUCOSE; Start 03/09/19 at 06:30 Glucagon (Glucagen) 1 mg Q15M PRN IM DECREASED GLUCOSE; Start 03/09/19 at 06:30 Glucose (Glutose) 15 gm Q15M PRN BUCCAL DECREASED GLUCOSE; Start 03/09/19 at 06:30 Vancomycin HCl 1.25 gm/Sodium Chloride 250 ml @ 83.333 mls/ hr Q12H IVPB Last administered on 03/10/19at 01:55; Admin Dose 83.333 MLS/HR; Start 03/09/19 at 13:00 Miscellaneous Information (Pending [facility] Order For Wound Care) This patient mora... PRN PRN XX WOUND CARE; Start 03/09/19 at 12:00 Total Parenteral Nutrition 1,000 ml @ 80 mls/hr [id number] IV Last administered on 03/10/19at 05:45; Admin Dose 80 MLS/HR; Start 03/09/19 at 18:30 Allergies: Coded Allergies: No Known Allergy (Unverified , 03/09/19) Past Surgical History Past Surgical Hx: other Social History Smoking Status: Former smoker Exam/Review of Systems Exam Vitals Vital Signs Date Temp Pulse Resp B/P (MAP) Pulse Ox O2 O2 Flow FiO2 Time Delivery Rate 03/10/19 100.1 99 18 150/77 94 Room Air 02:00 (101) Intake and Output 03/09/19 03/09/19 03/10/19 1515:00 23:00 07:00 IntakeIntake Total 450 ml 1150 ml 1670 ml OutputOutput Total 1205 ml 330 ml BalanceBalance 450 ml -55 ml 1340 ml Results Result Diagram: 03/10/19 0527 03/09/19 1335 Results 24hrs Laboratory Tests Test 03/09/19 12:15 03/09/19 13:35 03/09/19 17:28 03/10/19 00:56 Bedside Glucose 162 129 134 Sodium Level 137 Potassium Level 4.0 Chloride Level 105 Carbon Dioxide Level 24 Anion Gap 8 Blood Urea Nitrogen 13 Creatinine 0.69 Est Glomerular > 60 Filtrat Rate mL/min Glucose Level 127 Calcium Level 8.3 L Phosphorus Level 4.5 Magnesium Level 1.9 Total Bilirubin 0.4 Direct Bilirubin 0.00 Indirect Bilirubin 0.4 Aspartate Amino 26 Transf (AST/SGOT) Alanine 21 Aminotransferase (AL T/SGPT) Alkaline Phosphatase 192 H Total Protein 6.5 Albumin 3.0 L Globulin 3.50 H Albumin/Globulin 0.85 Ratio Prealbumin 12.0 L Triglycerides Level 88 Test 03/10/19 05:27 03/10/19 05:37 White Blood Count 6.0 Red Blood Count 2.92 L Hemoglobin 8.2 L Hematocrit 25.5 L Mean Corpuscular 87.3 Volume Mean Corpuscular 28.1 L Hemoglobin Mean Corpuscular 32.2 Hemoglobin Concent Red Cell 13.5 Distribution Width Platelet Count 297 Mean Platelet Volume 10.7 H Immature 0.500 H Granulocytes % Neutrophils % 78.9 H Lymphocytes % 7.7 L Monocytes % 9.2 Eosinophils % 3.2 Basophils % 0.5 Nucleated Red Blood 0.0 Cells % Immature 0.030 Granulocytes # Neutrophils # 4.8 Lymphocytes # 0.5 L Monocytes # 0.6 Eosinophils # 0.2 Basophils # 0.0 Nucleated Red Blood 0.0 Cells # Bedside Glucose 126 Medications Medication Current Medications Alteplase, Recombinant (Cathflo (Activase)) 2 mg MAY REPEAT X1 PRN CATHETER IF CATHETER REMAINS OCCULUDED Last administered on 03/09/19at 02:30; Admin Dose 2 MG; Start 03/09/19 at 00:30 Vancomycin HCl (Vanco Iv Per Pharmacy) VANCOMYCIN PER PHARMACY PER PROTOCOL XX ; Start 03/09/19 at 06:00 Acetaminophen (Tylenol Tab) 650 mg Q4H PRN PO MILD PAIN(1-3)OR ELEVATED TEMP Last administered on 03/09/19at 09:33; Admin Dose 650 MG; Start 03/09/19 at 06:00 Acetaminophen/ Hydrocodone Bitart ([place] (5/325)) 1 tab Q4H PRN PO MODERATE PAIN LEVEL 4-6; Start 03/09/19 at 06:00 Hydromorphone HCl (Dilaudid) 0.5 mg Q3H PRN IV SEVERE PAIN LEVEL 7-10; Start 03/09/19 at 06:00 Enoxaparin Sodium (Lovenox) 40 mg DAILY SC Last administered on 03/09/19at 08:17; Admin Dose 40 MG; Start 03/09/19 at 09:00 Insulin Aspart (Novolog Insulin Pen) NOVOLOG *MILD* ALGORI... Q6 SC ; Start 03/09/19 at 06:00 Piperacillin Sod/ Tazobactam Sod 100 ml @ 200 mls/hr Q6 IVPB Last administered on 03/10/19at 05:41; Admin Dose 200 MLS/HR; Start 03/09/19 at 08:00 Miscellaneous Information 1 ea NOTE XX ; Start 03/09/19 at 06:30 Glucose (Glutose) 15 gm Q15M PRN PO DECREASED GLUCOSE; Start 03/09/19 at 06:30 Glucose (Glutose) 22.5 gm Q15M PRN PO DECREASED GLUCOSE; Start 03/09/19 at 06:30 Dextrose (D50w Syringe) 25 ml Q15M PRN IV DECREASED GLUCOSE; Start 03/09/19 at 06:30 Dextrose (D50w Syringe) 50 ml Q15M PRN IV DECREASED GLUCOSE; Start 03/09/19 at 06:30 Glucagon (Glucagen) 1 mg Q15M PRN IM DECREASED GLUCOSE; Start 03/09/19 at 06:30 Glucose (Glutose) 15 gm Q15M PRN BUCCAL DECREASED GLUCOSE; Start 03/09/19 at 06:30 Vancomycin HCl 1.25 gm/Sodium Chloride 250 ml @ 83.333 mls/ hr Q12H IVPB Last administered on 03/10/19at 01:55; Admin Dose 83.333 MLS/HR; Start 03/09/19 at 13:00 Miscellaneous Information (Pending Santyl Order For Wound Care) This patient mora... PRN PRN XX WOUND CARE; Start 03/09/19 at 12:00 Total Parenteral Nutrition 1,000 ml @ 80 mls/hr [id number] IV Last administered on 03/10/19at 05:45; Admin Dose 80 MLS/HR; Start 03/09/19 at 18:30 KURT SEO MD March 10, 2019 07:05
--- NOTE | 2019-03-10 07:10 | CONS ---
Assessment/Plan Assessment/Plan Hospital Course (Demo Recall) I personally reviewed the EMR this am, CXR reviewed remotely via paqs. consol noted as per impression from rads. consider upper extrem ultz victor cx procalc cont. abx consider ct chest/abd/pelvis we will be in shortly for further eval. Consultation Date/Type/Reason Admit Date/Time March 09, 2019 at 03:20 Initial Consult Date Date/Time of Note DATE: 03/10/19 TIME: 07:08 Exam/Review of Systems Exam Vitals Vital Signs Date Temp Pulse Resp B/P (MAP) Pulse Ox O2 O2 Flow FiO2 Time Delivery Rate 03/10/19 100.1 99 18 150/77 94 Room Air 02:00 (101) Intake and Output 03/09/19 03/09/19 03/10/19 1515:00 23:00 07:00 IntakeIntake Total 450 ml 1150 ml 1670 ml OutputOutput Total 1205 ml 330 ml BalanceBalance 450 ml -55 ml 1340 ml Results Result Diagram: 03/10/19 0527 03/09/19 1335 Results 24hrs Laboratory Tests Test 03/09/19 12:15 03/09/19 13:35 03/09/19 17:28 03/10/19 00:56 Bedside Glucose 162 129 134 Sodium Level 137 Potassium Level 4.0 Chloride Level 105 Carbon Dioxide Level 24 Anion Gap 8 Blood Urea Nitrogen 13 Creatinine 0.69 Est Glomerular > 60 Filtrat Rate mL/min Glucose Level 127 Calcium Level 8.3 L Phosphorus Level 4.5 Magnesium Level 1.9 Total Bilirubin 0.4 Direct Bilirubin 0.00 Indirect Bilirubin 0.4 Aspartate Amino 26 Transf (AST/SGOT) Alanine 21 Aminotransferase (AL T/SGPT) Alkaline Phosphatase 192 H Total Protein 6.5 Albumin 3.0 L Globulin 3.50 H Albumin/Globulin 0.85 Ratio Prealbumin 12.0 L Triglycerides Level 88 Test 03/10/19 05:27 03/10/19 05:37 White Blood Count 6.0 Red Blood Count 2.92 L Hemoglobin 8.2 L Hematocrit 25.5 L Mean Corpuscular 87.3 Volume Mean Corpuscular 28.1 L Hemoglobin Mean Corpuscular 32.2 Hemoglobin Concent Red Cell 13.5 Distribution Width Platelet Count 297 Mean Platelet Volume 10.7 H Immature 0.500 H Granulocytes % Neutrophils % 78.9 H Lymphocytes % 7.7 L Monocytes % 9.2 Eosinophils % 3.2 Basophils % 0.5 Nucleated Red Blood 0.0 Cells % Immature 0.030 Granulocytes # Neutrophils # 4.8 Lymphocytes # 0.5 L Monocytes # 0.6 Eosinophils # 0.2 Basophils # 0.0 Nucleated Red Blood 0.0 Cells # Phosphorus Level 4.0 Magnesium Level 1.9 Bedside Glucose 126 Medications Medication Current Medications Alteplase, Recombinant (Cathflo (Activase)) 2 mg MAY REPEAT X1 PRN CATHETER IF CATHETER REMAINS OCCULUDED Last administered on 03/09/19at 02:30; Admin Dose 2 MG; Start 03/09/19 at 00:30 Vancomycin HCl (Vanco Iv Per Pharmacy) VANCOMYCIN PER PHARMACY PER PROTOCOL XX ; Start 03/09/19 at 06:00 Acetaminophen (Tylenol Tab) 650 mg Q4H PRN PO MILD PAIN(1-3)OR ELEVATED TEMP Last administered on 03/09/19at 09:33; Admin Dose 650 MG; Start 03/09/19 at 06:00 Acetaminophen/ Hydrocodone Bitart ([place] (5/325)) 1 tab Q4H PRN PO MODERATE PAIN LEVEL 4-6; Start 03/09/19 at 06:00 Hydromorphone HCl (Dilaudid) 0.5 mg Q3H PRN IV SEVERE PAIN LEVEL 7-10; Start 03/09/19 at 06:00 Enoxaparin Sodium (Lovenox) 40 mg DAILY SC Last administered on 03/09/19at 08:17; Admin Dose 40 MG; Start 03/09/19 at 09:00 Insulin Aspart (Novolog Insulin Pen) NOVOLOG *MILD* ALGORI... Q6 SC ; Start 03/09/19 at 06:00 Piperacillin Sod/ Tazobactam Sod 100 ml @ 200 mls/hr Q6 IVPB Last administered on 03/10/19at 05:41; Admin Dose 200 MLS/HR; Start 03/09/19 at 08:00 Miscellaneous Information 1 ea NOTE XX ; Start 03/09/19 at 06:30 Glucose (Glutose) 15 gm Q15M PRN PO DECREASED GLUCOSE; Start 03/09/19 at 06:30 Glucose (Glutose) 22.5 gm Q15M PRN PO DECREASED GLUCOSE; Start 03/09/19 at 06:30 Dextrose (D50w Syringe) 25 ml Q15M PRN IV DECREASED GLUCOSE; Start 03/09/19 at 06:30 Dextrose (D50w Syringe) 50 ml Q15M PRN IV DECREASED GLUCOSE; Start 03/09/19 at 06:30 Glucagon (Glucagen) 1 mg Q15M PRN IM DECREASED GLUCOSE; Start 03/09/19 at 06:30 Glucose (Glutose) 15 gm Q15M PRN BUCCAL DECREASED GLUCOSE; Start 03/09/19 at 06:30 Vancomycin HCl 1.25 gm/Sodium Chloride 250 ml @ 83.333 mls/ hr Q12H IVPB Last administered on 03/10/19at 01:55; Admin Dose 83.333 MLS/HR; Start 03/09/19 at 13:00 Miscellaneous Information (Pending Santyl Order For Wound Care) This patient mora... PRN PRN XX WOUND CARE; Start 03/09/19 at 12:00 Total Parenteral Nutrition 1,000 ml @ 80 mls/hr [id number] IV Last administered on 03/10/19at 05:45; Admin Dose 80 MLS/HR; Start 03/09/19 at 18:30 KURT SEO MD March 10, 2019 07:10
--- NOTE | 2019-03-10 07:40 | PN ---
Date/Time of Note Date/Time of Note DATE: 03/10/19 TIME: 07:40 Assessment/Plan VTE Prophylaxis Risk score (from Ns)>0 risk: 5 SCD applied (from [facility]): No SCD contraindicated: other Pharmacological prophylaxis: other Pharm contraindication: other Lines/Catheters IV Catheter Type (from [facility]): PICC Line Central line still needed: Yes Urinary Cath still in place: No Assessment/Plan Assessment/Plan - Febrile illness possibly 2/2 post op complication - per id consult - surgery consult - Occluded PICC line - picc line niurse consult - cXR - US doppler r/o DVT - Pleural effusion, right - per Pulm consult -Hx -R pleural effusion, s/p R sided thoracentesis on 02/05/2019 -Anemia - monitor CBC -Former smoker - Reinforce smoking cessation -Hx Atrial fibrillation with rapid ventricular response- stable - will get cardiology consult to evaluate any cardiomyopathy -Stage III sigmoid colon cancer, status post surgery and chemo in 2018. -Acute kidney injury on chronic kidney disease- BUN/Cr WNL - monitor urine output BUN and creatinine. - nephro consult appreciated -Acute on chronic diastolic CHF - cardiology consult appreciated -Protein calorie malnutrition- on TPN - dietary consult -Obstructive sleep apnea -History of hypertension -History of left upper extremity DVT, status post bilateral upper extremity ultrasound on 02/05/2019: No sonographic evidence for bilateral upper extremity deep venous thrombosis. Superficial thrombus in the right cephalic vein in the forearm. Cephalic vein in the upper arm is patent. Superficial thrombus in the left cephalic vein in the antecubital fossa. Cephalic vein in the upper arm is patent. Further recommendations based on clinical course. Plan of care discussed with Dr. Fox. Result Diagram: 03/10/19 0527 03/09/19 1335 Results 24hrs Laboratory Tests Test 03/09/19 12:15 03/09/19 13:35 03/09/19 17:28 03/10/19 00:56 Bedside Glucose 162 129 134 Sodium Level 137 Potassium Level 4.0 Chloride Level 105 Carbon Dioxide Level 24 Anion Gap 8 Blood Urea Nitrogen 13 Creatinine 0.69 Est Glomerular > 60 Filtrat Rate mL/min Glucose Level 127 Calcium Level 8.3 L Phosphorus Level 4.5 Magnesium Level 1.9 Total Bilirubin 0.4 Direct Bilirubin 0.00 Indirect Bilirubin 0.4 Aspartate Amino 26 Transf (AST/SGOT) Alanine 21 Aminotransferase (AL T/SGPT) Alkaline Phosphatase 192 H Total Protein 6.5 Albumin 3.0 L Globulin 3.50 H Albumin/Globulin 0.85 Ratio Prealbumin 12.0 L Triglycerides Level 88 Test 03/10/19 05:26 03/10/19 05:27 03/10/19 05:37 Sodium Level 136 Potassium Level 3.8 Chloride Level 107 Carbon Dioxide Level 22 Anion Gap 7 Blood Urea Nitrogen 12 Creatinine 0.66 Est Glomerular > 60 Filtrat Rate mL/min Glucose Level 122 Calcium Level 8.3 L White Blood Count 6.0 Red Blood Count 2.92 L Hemoglobin 8.2 L Hematocrit 25.5 L Mean Corpuscular 87.3 Volume Mean Corpuscular 28.1 L Hemoglobin Mean Corpuscular 32.2 Hemoglobin Concent Red Cell 13.5 Distribution Width Platelet Count 297 Mean Platelet Volume 10.7 H Immature 0.500 H Granulocytes % Neutrophils % 78.9 H Lymphocytes % 7.7 L Monocytes % 9.2 Eosinophils % 3.2 Basophils % 0.5 Nucleated Red Blood 0.0 Cells % Immature 0.030 Granulocytes # Neutrophils # 4.8 Lymphocytes # 0.5 L Monocytes # 0.6 Eosinophils # 0.2 Basophils # 0.0 Nucleated Red Blood 0.0 Cells # Phosphorus Level 4.0 Magnesium Level 1.9 Bedside Glucose 126 Subjective 24 Hr Interval Summary Free Text/Dictation Remains on TPN afebrile- ID follows patient denies any complaints no events reported overnight dw staff Constitutional: febrile, requiring IVF Eyes: no complaints ENT: no complaints Respiratory: no complaints Cardiovascular: no complaints Gastrointestinal: no complaints Genitourinary: no complaints Musculoskeletal: no complaints Skin: no complaints Neurologic: no complaints Endocrine: no complaints Psychological: nl mood/affect Exam/Review of Systems Exam Vitals Vital Signs Date Temp Pulse Resp B/P (MAP) Pulse Ox O2 O2 Flow FiO2 Time Delivery Rate 03/10/19 100.1 99 18 150/77 94 Room Air 02:00 (101) Intake and Output 03/09/19 03/09/19 03/10/19 1515:00 23:00 07:00 IntakeIntake Total 450 ml 1150 ml 1670 ml OutputOutput Total 1205 ml 330 ml BalanceBalance 450 ml -55 ml 1340 ml Constitutional: alert, oriented, well developed, obese Psych: nl mood/affect Head: normocephalic Eyes: nl lids, nl sclera ENMT: nl external ears & nose Neck: non-tender Respiratory: clear to auscultation Cardiovascular: nl pulses, other (s1s2) Gastrointestinal: soft, other (surgical abdomen - DDI) Musculoskeletal: nl extremities to inspection Extremities: edema Neurological: nl mental status, nl speech Lymph: nontender Results Results 24hrs Laboratory Tests Test 03/09/19 12:15 03/09/19 13:35 03/09/19 17:28 03/10/19 00:56 Bedside Glucose 162 129 134 Sodium Level 137 Potassium Level 4.0 Chloride Level 105 Carbon Dioxide Level 24 Anion Gap 8 Blood Urea Nitrogen 13 Creatinine 0.69 Est Glomerular > 60 Filtrat Rate mL/min Glucose Level 127 Calcium Level 8.3 L Phosphorus Level 4.5 Magnesium Level 1.9 Total Bilirubin 0.4 Direct Bilirubin 0.00 Indirect Bilirubin 0.4 Aspartate Amino 26 Transf (AST/SGOT) Alanine 21 Aminotransferase (AL T/SGPT) Alkaline Phosphatase 192 H Total Protein 6.5 Albumin 3.0 L Globulin 3.50 H Albumin/Globulin 0.85 Ratio Prealbumin 12.0 L Triglycerides Level 88 Test 03/10/19 05:26 03/10/19 05:27 03/10/19 05:37 Sodium Level 136 Potassium Level 3.8 Chloride Level 107 Carbon Dioxide Level 22 Anion Gap 7 Blood Urea Nitrogen 12 Creatinine 0.66 Est Glomerular > 60 Filtrat Rate mL/min Glucose Level 122 Calcium Level 8.3 L White Blood Count 6.0 Red Blood Count 2.92 L Hemoglobin 8.2 L Hematocrit 25.5 L Mean Corpuscular 87.3 Volume Mean Corpuscular 28.1 L Hemoglobin Mean Corpuscular 32.2 Hemoglobin Concent Red Cell 13.5 Distribution Width Platelet Count 297 Mean Platelet Volume 10.7 H Immature 0.500 H Granulocytes % Neutrophils % 78.9 H Lymphocytes % 7.7 L Monocytes % 9.2 Eosinophils % 3.2 Basophils % 0.5 Nucleated Red Blood 0.0 Cells % Immature 0.030 Granulocytes # Neutrophils # 4.8 Lymphocytes # 0.5 L Monocytes # 0.6 Eosinophils # 0.2 Basophils # 0.0 Nucleated Red Blood 0.0 Cells # Phosphorus Level 4.0 Magnesium Level 1.9 Bedside Glucose 126 Medications Medication Current Medications Alteplase, Recombinant (Cathflo (Activase)) 2 mg MAY REPEAT X1 PRN CATHETER IF CATHETER REMAINS OCCULUDED Last administered on 03/09/19at 02:30; Admin Dose 2 MG; Start 03/09/19 at 00:30 Vancomycin HCl (Vanco Iv Per Pharmacy) VANCOMYCIN PER PHARMACY PER PROTOCOL XX ; Start 03/09/19 at 06:00 Acetaminophen (Tylenol Tab) 650 mg Q4H PRN PO MILD PAIN(1-3)OR ELEVATED TEMP Last administered on 03/09/19at 09:33; Admin Dose 650 MG; Start 03/09/19 at 06:00 Acetaminophen/ Hydrocodone Bitart ([place] (5/325)) 1 tab Q4H PRN PO MODERATE PAIN LEVEL 4-6; Start 03/09/19 at 06:00 Hydromorphone HCl (Dilaudid) 0.5 mg Q3H PRN IV SEVERE PAIN LEVEL 7-10; Start 03/09/19 at 06:00 Enoxaparin Sodium (Lovenox) 40 mg DAILY SC Last administered on 03/09/19at 08:17; Admin Dose 40 MG; Start 03/09/19 at 09:00 Insulin Aspart (Novolog Insulin Pen) NOVOLOG *MILD* ALGORI... Q6 SC ; Start 03/09/19 at 06:00 Piperacillin Sod/ Tazobactam Sod 100 ml @ 200 mls/hr Q6 IVPB Last administered on 03/10/19at 05:41; Admin Dose 200 MLS/HR; Start 03/09/19 at 08:00 Miscellaneous Information 1 ea NOTE XX ; Start 03/09/19 at 06:30 Glucose (Glutose) 15 gm Q15M PRN PO DECREASED GLUCOSE; Start 03/09/19 at 06:30 Glucose (Glutose) 22.5 gm Q15M PRN PO DECREASED GLUCOSE; Start 03/09/19 at 06:30 Dextrose (D50w Syringe) 25 ml Q15M PRN IV DECREASED GLUCOSE; Start 03/09/19 at 06:30 Dextrose (D50w Syringe) 50 ml Q15M PRN IV DECREASED GLUCOSE; Start 03/09/19 at 06:30 Glucagon (Glucagen) 1 mg Q15M PRN IM DECREASED GLUCOSE; Start 03/09/19 at 06:30 Glucose (Glutose) 15 gm Q15M PRN BUCCAL DECREASED GLUCOSE; Start 03/09/19 at 06:30 Vancomycin HCl 1.25 gm/Sodium Chloride 250 ml @ 83.333 mls/ hr Q12H IVPB Last administered on 03/10/19at 01:55; Admin Dose 83.333 MLS/HR; Start 03/09/19 at 13:00 Miscellaneous Information (Pending Santyl Order For Wound Care) This patient mora... PRN PRN XX WOUND CARE; Start 03/09/19 at 12:00 Total Parenteral Nutrition 1,000 ml @ 80 mls/hr [id number] IV Last administered on 03/10/19at 05:45; Admin Dose 80 MLS/HR; Start 03/09/19 at 18:30 LUIS HARDWICK March 10, 2019 07:40
[2019-03-10 08:35] VITALS: BP 140/75; PULSE 91; RESP 17
[2019-03-10] MEDS: ENOXAPARIN 40 MG/0.4 ML SYG SC SCH (09:38)
--- NOTE | 2019-03-10 11:50 | CONS ---
Assessment/Plan Assessment/Plan Assessment/Plan (Daily) Assessment and recommendations; 1. Patient admitted with recurrent right pleural effusion, etiology unclear. Possibly parapneumonic in etiology with at least some component of partial loculation. 2. History of recent colon cancer. Status post chemotherapy. Status post colostomy. Patient also has a RUDDY drain in place. 3. Prior history of smoking. 4. History of upper extremity DVT possibly PICC line related. Patient not on chronic anticoagulation. 5. History of paroxysmal atrial fibrillation. 6. Hypertension. 7. Functional ileus. Patient currently on TPN. Continue current supportive care. Obtain ultrasound-guided right thoracentesis. Send fluid for protein, Gram stain, as well as cytology. The patient possibly may benefit from postthoracentesis CT imaging of the chest for better visualization of lung parenchyma and pleura. Consultation Date/Type/Reason Admit Date/Time March 09, 2019 at 03:20 Date of Consultation: March 10, 2019 Type of Consult Pulmonary Patient is a 59-year-old gentleman who was admitted on the of this month with complaints of cough. Upon evaluation a chest x-ray was done which is showing a right pleural effusion with possibly right lower lobe pneumonia. Patient denies any chest pain, fever, any sputum production or hemoptysis. At the time I saw him in the room, patient appeared very comfortable on room air. And did not appear to be in any distress whatsoever. Patient denies any recent nausea vomiting. Past medical history; 1. Recently diagnosed colon cancer status post resection, status post chemotherapy. 2. Colostomy. 3. Patient maintained on TPN. 4. History of paroxysmal atrial fibrillation. 5. Upper extremity DVT history. 6. Hypertension. 7. Anemia. 8. History of recent right thoracentesis as well. About a liter of fluid was removed few months ago. Medications; reviewed. Allergies; none. Social history; patient is a former smoker. Family history; noncontributory. Patient does have a supportive family. 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 Currently disabled. Review of systems; denies any headache, visual changes, dysphagia, chest pain, angina, wheezing, complains of scant cough without any sputum production or hemoptysis. Denies any fever or chills. Denies any nausea vomiting. Any edema. Patient has lost some weight recently. Denies any skin changes or any new arthritis symptoms. General exam; elderly male, awake alert, currently no distress. Date/Time of Note DATE: 03/10/19 TIME: 11:45 Past Medical History Home Meds Active Scripts Lactose-Reduced Food (Ensure Original) 237 Ml Liquid, 237 ML PO AC A, #10 Prov:ODELL PACHECO 02/28/19 Diltiazem Hcl* (Cardizem CD*) 120 Mg Cap.sr.24h, 120 MG PO BID for 30 Days Prov:DANILOODELL GUADALUPE 02/28/19 Atenolol* (Atenolol*) 50 Mg Tablet, 50 MG PO BID for 30 Days, TAB Prov:JENNIE PACHECOLANA 02/28/19 Reported Medications Apixaban* (Eliquis*) 5 Mg Tablet, 5 MG PO BID, TAB 11/02/18 Atorvastatin Calcium* (Atorvastatin Calcium*) 20 Mg Tablet, 20 MG PO QHS, #30 TAB 01/07/18 Discontinued Scripts Loperamide Hcl* (Loperamide Hcl*) 2 Mg Cap, 4 MG PO QID for 7 Days, CAP Prov:ODELL PACHECO 02/28/19 Medications Current Medications Alteplase, Recombinant (Cathflo (Activase)) 2 mg MAY REPEAT X1 PRN CATHETER IF CATHETER REMAINS OCCULUDED Last administered on 03/09/19at 02:30; Admin Dose 2 MG; Start 03/09/19 at 00:30 Vancomycin HCl (Vanco Iv Per Pharmacy) VANCOMYCIN PER PHARMACY PER PROTOCOL XX ; Start 03/09/19 at 06:00 Acetaminophen (Tylenol Tab) 650 mg Q4H PRN PO MILD PAIN(1-3)OR ELEVATED TEMP Last administered on 03/09/19at 09:33; Admin Dose 650 MG; Start 03/09/19 at 06:00 Acetaminophen/ Hydrocodone Bitart ([place] (5/325)) 1 tab Q4H PRN PO MODERATE PAIN LEVEL 4-6; Start 03/09/19 at 06:00 Hydromorphone HCl (Dilaudid) 0.5 mg Q3H PRN IV SEVERE PAIN LEVEL 7-10; Start 03/09/19 at 06:00 Enoxaparin Sodium (Lovenox) 40 mg DAILY SC Last administered on 03/10/19at 09:38; Admin Dose 40 MG; Start 03/09/19 at 09:00 Insulin Aspart (Novolog Insulin Pen) NOVOLOG *MILD* ALGORI... Q6 SC ; Start 03/09/19 at 06:00 Piperacillin Sod/ Tazobactam Sod 100 ml @ 200 mls/hr Q6 IVPB Last administered on 03/10/19at 05:41; Admin Dose 200 MLS/HR; Start 03/09/19 at 08:00 Miscellaneous Information 1 ea NOTE XX ; Start 03/09/19 at 06:30 Glucose (Glutose) 15 gm Q15M PRN PO DECREASED GLUCOSE; Start 03/09/19 at 06:30 Glucose (Glutose) 22.5 gm Q15M PRN PO DECREASED GLUCOSE; Start 03/09/19 at 06:30 Dextrose (D50w Syringe) 25 ml Q15M PRN IV DECREASED GLUCOSE; Start 03/09/19 at 06:30 Dextrose (D50w Syringe) 50 ml Q15M PRN IV DECREASED GLUCOSE; Start 03/09/19 at 06:30 Glucagon (Glucagen) 1 mg Q15M PRN IM DECREASED GLUCOSE; Start 03/09/19 at 06:30 Glucose (Glutose) 15 gm Q15M PRN BUCCAL DECREASED GLUCOSE; Start 03/09/19 at 06:30 Vancomycin HCl 1.25 gm/Sodium Chloride 250 ml @ 83.333 mls/ hr Q12H IVPB Last administered on 03/10/19at 01:55; Admin Dose 83.333 MLS/HR; Start 03/09/19 at 13:00 Miscellaneous Information (Pending [facility] Order For Wound Care) This patient mora... PRN PRN XX WOUND CARE; Start 03/09/19 at 12:00 Total Parenteral Nutrition 1,000 ml @ 80 mls/hr [id number] IV Last administered on 03/10/19at 05:45; Admin Dose 80 MLS/HR; Start 03/09/19 at 18:30 Allergies: Coded Allergies: No Known Allergy (Unverified , 03/09/19) Past Surgical History Past Surgical Hx: other Social History Smoking Status: Former smoker Exam/Review of Systems Exam Vitals Vital Signs Date Temp Pulse Resp B/P (MAP) Pulse Ox O2 O2 Flow FiO2 Time Delivery Rate 03/10/19 99.1 91 17 140/75 94 08:35 (96) 03/10/19 Room Air 02:00 Intake and Output 03/09/19 03/09/19 03/10/19 1515:00 23:00 07:00 IntakeIntake Total 450 ml 1150 ml 1670 ml OutputOutput Total 1205 ml 330 ml BalanceBalance 450 ml -55 ml 1340 ml Exam HEENT exam; supple neck, no JVD. No lymphadenopathy. Midline trachea. No thyromegaly. No neck masses. Patient has fair dentition. Chest exam; diminished breath sounds regular. Rest of the lung hernandez are clear. S1-S2 audible, no murmurs. Regular rhythm. Abdomen exam; soft, colostomy in place. RUDDY drain in place. Midline dressing in place. Abdomen is nontender. Mildly protuberant. Organomegaly difficult to assess. Extremity exam; no peripheral edema clubbing. F[employer] LIQUID exam; no focal deficit. Results Result Diagram: 03/10/19 0527 03/10/19 0526 Results 24hrs Laboratory Tests Test 03/09/19 12:15 03/09/19 13:35 03/09/19 17:28 03/10/19 00:56 Bedside Glucose 162 129 134 Sodium Level 137 Potassium Level 4.0 Chloride Level 105 Carbon Dioxide Level 24 Anion Gap 8 Blood Urea Nitrogen 13 Creatinine 0.69 Est Glomerular > 60 Filtrat Rate mL/min Glucose Level 127 Calcium Level 8.3 L Phosphorus Level 4.5 Magnesium Level 1.9 Total Bilirubin 0.4 Direct Bilirubin 0.00 Indirect Bilirubin 0.4 Aspartate Amino 26 Transf (AST/SGOT) Alanine 21 Aminotransferase (AL T/SGPT) Alkaline Phosphatase 192 H Total Protein 6.5 Albumin 3.0 L Globulin 3.50 H Albumin/Globulin 0.85 Ratio Prealbumin 12.0 L Triglycerides Level 88 Test 03/10/19 05:26 03/10/19 05:27 03/10/19 05:37 Sodium Level 136 Potassium Level 3.8 Chloride Level 107 Carbon Dioxide Level 22 Anion Gap 7 Blood Urea Nitrogen 12 Creatinine 0.66 Est Glomerular > 60 Filtrat Rate mL/min Glucose Level 122 Calcium Level 8.3 L White Blood Count 6.0 Red Blood Count 2.92 L Hemoglobin 8.2 L Hematocrit 25.5 L Mean Corpuscular 87.3 Volume Mean Corpuscular 28.1 L Hemoglobin Mean Corpuscular 32.2 Hemoglobin Concent Red Cell 13.5 Distribution Width Platelet Count 297 Mean Platelet Volume 10.7 H Immature 0.500 H Granulocytes % Neutrophils % 78.9 H Lymphocytes % 7.7 L Monocytes % 9.2 Eosinophils % 3.2 Basophils % 0.5 Nucleated Red Blood 0.0 Cells % Immature 0.030 Granulocytes # Neutrophils # 4.8 Lymphocytes # 0.5 L Monocytes # 0.6 Eosinophils # 0.2 Basophils # 0.0 Nucleated Red Blood 0.0 Cells # Phosphorus Level 4.0 Magnesium Level 1.9 Bedside Glucose 126 Medications Medication Current Medications Alteplase, Recombinant (Cathflo (Activase)) 2 mg MAY REPEAT X1 PRN CATHETER IF CATHETER REMAINS OCCULUDED Last administered on 03/09/19at 02:30; Admin Dose 2 MG; Start 03/09/19 at 00:30 Vancomycin HCl (Vanco Iv Per Pharmacy) VANCOMYCIN PER PHARMACY PER PROTOCOL XX ; Start 03/09/19 at 06:00 Acetaminophen (Tylenol Tab) 650 mg Q4H PRN PO MILD PAIN(1-3)OR ELEVATED TEMP Last administered on 03/09/19at 09:33; Admin Dose 650 MG; Start 03/09/19 at 06:00 Acetaminophen/ Hydrocodone Bitart ([place] (5/325)) 1 tab Q4H PRN PO MODERATE PAIN LEVEL 4-6; Start 03/09/19 at 06:00 Hydromorphone HCl (Dilaudid) 0.5 mg Q3H PRN IV SEVERE PAIN LEVEL 7-10; Start 03/09/19 at 06:00 Enoxaparin Sodium (Lovenox) 40 mg DAILY SC Last administered on 03/10/19at 09:38; Admin Dose 40 MG; Start 03/09/19 at 09:00 Insulin Aspart (Novolog Insulin Pen) NOVOLOG *MILD* ALGORI... Q6 SC ; Start 03/09/19 at 06:00 Piperacillin Sod/ Tazobactam Sod 100 ml @ 200 mls/hr Q6 IVPB Last administered on 03/10/19at 05:41; Admin Dose 200 MLS/HR; Start 03/09/19 at 08:00 Miscellaneous Information 1 ea NOTE XX ; Start 03/09/19 at 06:30 Glucose (Glutose) 15 gm Q15M PRN PO DECREASED GLUCOSE; Start 03/09/19 at 06:30 Glucose (Glutose) 22.5 gm Q15M PRN PO DECREASED GLUCOSE; Start 03/09/19 at 06:30 Dextrose (D50w Syringe) 25 ml Q15M PRN IV DECREASED GLUCOSE; Start 03/09/19 at 06:30 Dextrose (D50w Syringe) 50 ml Q15M PRN IV DECREASED GLUCOSE; Start 03/09/19 at 06:30 Glucagon (Glucagen) 1 mg Q15M PRN IM DECREASED GLUCOSE; Start 03/09/19 at 06:30 Glucose (Glutose) 15 gm Q15M PRN BUCCAL DECREASED GLUCOSE; Start 03/09/19 at 06:30 Vancomycin HCl 1.25 gm/Sodium Chloride 250 ml @ 83.333 mls/ hr Q12H IVPB Last administered on 03/10/19at 01:55; Admin Dose 83.333 MLS/HR; Start 03/09/19 at 13:00 Miscellaneous Information (Pending Santyl Order For Wound Care) This patient mora... PRN PRN XX WOUND CARE; Start 03/09/19 at 12:00 Total Parenteral Nutrition 1,000 ml @ 80 mls/hr [id number] IV Last administered on 03/10/19at 05:45; Admin Dose 80 MLS/HR; Start 03/09/19 at 18:30 FRANC HARRIS March 10, 2019 11:49
[2019-03-10 14:00] VITALS: BP 142/70; PULSE 90; RESP 18
--- NOTE | 2019-03-10 14:20 | CONS ---
Assessment/Plan Assessment/Plan Hospital Course (Demo Recall) # sepsis, respiratory - Sirs with Fevers 101 on admission - s/p sepsis due to complicated intra-abdominal infection and pneumonia, resolved - recurrent pleural effusion, follow up chest US on 02/17/2019 showed small R sided effusion. CXR 03/09/19 showed moderate R sided pleural effusion - s/p congested cough probably due to pleural effusion and fluid overload, influenza AB negative on 02/17/2019. Improving and stable on room air - s/p R pleural effusion, exudative process, parapneumonic effusion LDH 1601 protein 3.2, no e/o malignancy on cytology - s/p R sided thoracentesis on 02/05/2019 - VIJAY # GI, onc - s/p ex lap, washout of abdominal abscess, CLEVE, diverting loop ileostomy on 02/11/2019 - s/p open Reagan reversal and colorectal low pelvic anastomosis, segmental partial colectomy, and open incarcerated incisional and parastomal hernia repairs with mesh by Dr. Art on 01/21/2019 - thrush, resolving - follow up CT on 02/04/2019 did not identify definite point of leak--> anastomotic leak was identified on gastograffin - s/p CT guided drainage of abscess in LLQ on 02/01/2019 - abdominal wound culture 01/30/19 and abscess culture 01/31/19 grew pseudomonas, joseline albicans and glabrata - s/p colostomy reversal - stage III sigmoid colon cancer, status post prior colectomy/colostomy and ch emo in 2018 # renal, cardiovascular - recurrent acute kidney injury on chronic kidney disease - acute on chronic diastolic CHF, improved - s/p atrial fibrillation with RVR, converted to SR - Hx hypertension - Hx left upper extremity DVT - superficial thrombus in R cephalic vein in the forearm and in L cephalic vein in the antecubital fossa as visualized on NOY 02/05/2019 # other conditions - s/p R conjunctivitis, resolved after neomycin eye drop x 7 days Recommendations: - Continue vanco/zosyn (03/09/19 - ) - Consider repeat CT Chest/Abd/pelvis - Consider Upper extremity ultrasound - F/u blood cultures 03/09/19 (NGTD), UA was neg, urine cx grew mixed GPorgs - Am procalcitonin and cbc ordered - Of note: Pt previously took meropenem (01/30/2019-02/03/2019), metronidazole (02/04/2019-02/16/2019) and cefepime (02/04/2019-02/18/2019); Flagyl (02/24/19 - 03/08/19) and Levaquin ( - 03/08/19); s/p fluconazole Plan was d/w patient and with Dr. Vázquez via [employer] messaging. Consultation Date/Type/Reason Admit Date/Time March 09, 2019 at 03:20 Initial Consult Date 03/10/19 Type of Consult ID Date/Time of Note DATE: 03/10/19 TIME: 14:04 24 HR Interval Summary Free Text/Dictation Per d/w patient, he states that when he was home he felt "well, nothing was wrong." States one of the two picc ports was clogged, they attempted declotting at home but it was unsuccessful, so he was sent to hospital, but then he states on admission he had fevers but states he had no fevers at home and that he did not feel any symptoms on admission accompanying the fevers. Detailed Summary Eyes: no complaints ENT: no complaints Respiratory: no complaints; No cough, No shortness of breath, No sputum, No wheezing Cardiovascular: no complaints; No chest pain, No palpitations Gastrointestinal: no complaints; No constipation, No decreased appetite, No diarrhea, No nausea, No vomiting Genitourinary: no complaints; No dysuria Musculoskeletal: no complaints; No bone/joint pain, No neck pain, No restricted range of motion, No swelling Skin: no complaints; No erythema Neurologic: no complaints; No dizziness, No headache Lymphatic: no complaints Psychological: no complaints, nl mood/affect Immunologic: no complaints; No pruritis Additional Comments Denies fevers, chills, night sweats. Exam/Review of Systems Exam Vitals Vital Signs Date Temp Pulse Resp B/P (MAP) Pulse Ox O2 O2 Flow FiO2 Time Delivery Rate 03/10/19 99.1 91 17 140/75 94 08:35 (96) 03/10/19 Room Air 02:00 Allergies Coded Allergies No Known Allergy (Unverified03/09/19) Intake and Output 03/09/19 03/09/19 03/10/19 1515:00 23:00 07:00 IntakeIntake Total 450 ml 1150 ml 1670 ml OutputOutput Total 1205 ml 330 ml BalanceBalance 450 ml -55 ml 1340 ml Constitutional: alert, oriented, well developed; No distress, No frail Psych: no complaints, nl mood/affect Head: normocephalic, atraumatic Eyes: nl conjunctiva, nl lids, nl sclera ENMT: nl external ears & nose, nl nasal mucosa & septum, mucosa pink and moist (no thrush) Neck: supple, non-tender Respiratory: clear to auscultation, normal air movement; No congested cough, No labored breathing, No wheezing Cardiovascular: regular rate and rhythm, nl pulses, other (LUE picc site is c/d/i, the clotted port is capped. pt also has a R hand PIV which is c/d/i.) Gastrointestinal: soft, non-tender, bowel sounds ( normoactive), other (RLQ ostomy with small amt of brown stool with small amt of sanguinous fluid noted. Mid abdominal surgical incision with scattered dry scabs, towards the lower mid portion there is a small moist open area without pus or foul odor. No erythema or tenderness to palpation. LLQ external drain noted with purulent drainage small amt in bag. ) Genitourinary - Male: other (bladder flat ) Musculoskeletal: nl extremities to inspection Extremities: normal pulses Neurological: ACID PUMPER II-XII intact, nl mental status, nl speech, nl strength Skin: nl turgor; No rash or lesions Results Result Diagram: 03/10/1952603/10/19 0526 Results 24hrs Laboratory Tests Test 03/09/19 17:28 03/10/19 00:56 03/10/19 05:26 03/10/19 05:27 Bedside Glucose 129 134 Sodium Level 136 Potassium Level 3.8 Chloride Level 107 Carbon Dioxide Level 22 Anion Gap 7 Blood Urea Nitrogen 12 Creatinine 0.66 Est Glomerular > 60 Filtrat Rate mL/min Glucose Level 122 Calcium Level 8.3 L White Blood Count 6.0 Red Blood Count 2.92 L Hemoglobin 8.2 L Hematocrit 25.5 L Mean Corpuscular 87.3 Volume Mean Corpuscular 28.1 L Hemoglobin Mean Corpuscular 32.2 Hemoglobin Concent Red Cell 13.5 Distribution Width Platelet Count 297 Mean Platelet Volume 10.7 H Immature 0.500 H Granulocytes % Neutrophils % 78.9 H Lymphocytes % 7.7 L Monocytes % 9.2 Eosinophils % 3.2 Basophils % 0.5 Nucleated Red Blood 0.0 Cells % Immature 0.030 Granulocytes # Neutrophils # 4.8 Lymphocytes # 0.5 L Monocytes # 0.6 Eosinophils # 0.2 Basophils # 0.0 Nucleated Red Blood 0.0 Cells # Phosphorus Level 4.0 Magnesium Level 1.9 Test 03/10/19 05:37 03/10/19 12:24 Bedside Glucose 126 138 Medications Medication Current Medications Alteplase, Recombinant (Cathflo (Activase)) 2 mg MAY REPEAT X1 PRN CATHETER IF CATHETER REMAINS OCCULUDED Last administered on 03/09/19at 02:30; Admin Dose 2 MG; Start 03/09/19 at 00:30 Vancomycin HCl (Vanco Iv Per Pharmacy) VANCOMYCIN PER PHARMACY PER PROTOCOL XX ; Start 03/09/19 at 06:00 Acetaminophen (Tylenol Tab) 650 mg Q4H PRN PO MILD PAIN(1-3)OR ELEVATED TEMP Last administered on 03/09/19at 09:33; Admin Dose 650 MG; Start 03/09/19 at 06:00 Acetaminophen/ Hydrocodone Bitart ([place] (5/325)) 1 tab Q4H PRN PO MODERATE PAIN LEVEL 4-6; Start 03/09/19 at 06:00 Hydromorphone HCl (Dilaudid) 0.5 mg Q3H PRN IV SEVERE PAIN LEVEL 7-10; Start 03/09/19 at 06:00 Enoxaparin Sodium (Lovenox) 40 mg DAILY SC Last administered on 03/10/19at 09:38; Admin Dose 40 MG; Start 03/09/19 at 09:00 Insulin Aspart (Novolog Insulin Pen) NOVOLOG *MILD* ALGORI... Q6 SC ; Start 03/09/19 at 06:00 Piperacillin Sod/ Tazobactam Sod 100 ml @ 200 mls/hr Q6 IVPB Last administered on 03/10/19at 12:21; Admin Dose 200 MLS/HR; Start 03/09/19 at 08:00 Miscellaneous Information 1 ea NOTE XX ; Start 03/09/19 at 06:30 Glucose (Glutose) 15 gm Q15M PRN PO DECREASED GLUCOSE; Start 03/09/19 at 06:30 Glucose (Glutose) 22.5 gm Q15M PRN PO DECREASED GLUCOSE; Start 03/09/19 at 06:30 Dextrose (D50w Syringe) 25 ml Q15M PRN IV DECREASED GLUCOSE; Start 03/09/19 at 06:30 Dextrose (D50w Syringe) 50 ml Q15M PRN IV DECREASED GLUCOSE; Start 03/09/19 at 06:30 Glucagon (Glucagen) 1 mg Q15M PRN IM DECREASED GLUCOSE; Start 03/09/19 at 06:30 Glucose (Glutose) 15 gm Q15M PRN BUCCAL DECREASED GLUCOSE; Start 03/09/19 at 06:30 Vancomycin HCl 1.25 gm/Sodium Chloride 250 ml @ 83.333 mls/ hr Q12H IVPB Last administered on 03/10/19at 13:52; Admin Dose 83.333 MLS/HR; Start 03/09/19 at 13:00 Miscellaneous Information (Pending Santyl Order For Wound Care) This patient mora... PRN PRN XX WOUND CARE; Start 03/09/19 at 12:00 Total Parenteral Nutrition 1,000 ml @ 80 mls/hr [id number] IV Last administered on 03/10/19at 05:45; Admin Dose 80 MLS/HR; Start 03/09/19 at 18:30 Miscellaneous Information (*Rx Drug Level Order Reminder*) VANCO TR LEVEL PRIOR... 0000 ONCE XX ; Start 03/11/19 at 00:00; Stop 03/11/19 at 00:01 JUSTYN WORLEY NP March 10, 2019 14:20
[2019-03-10 16:04] VITALS: PULSE 90
[2019-03-10] MEDS: ACETAMINOPHEN 325 MG TAB PO PRN (16:06)
[2019-03-10 20:00] VITALS: BP 149/76; PULSE 84; RESP 18
[2019-03-11] MEDS: PIPER-TAZO 3.375 GM IV (PMX) 100 ML IVPB SCH ×5 (00:15→23:41)
[2019-03-11 02:00] VITALS: BP 149/82; PULSE 99; RESP 18
[2019-03-11] MEDS: VANCOMYCIN HCL 1.25 GM in SOD CHLORIDE 0.9% 250 ML IVPB SCH ×2 (02:40→14:10)
[2019-03-11] MEDS: INSULIN ASPART [NOVOLOG] 3 ML PEN SC SCH ×5 (05:24→23:56)
[2019-03-11] MEDS: TPN 1,000 ML IV SCH ×2 (07:36→21:29)
--- NOTE | 2019-03-11 07:52 | CONS ---
Assessment/Plan Assessment/Plan Hospital Course (Demo Recall) care coordinated with [facility] yesterday. I will be in shortly for further eval this am Consultation Date/Type/Reason Admit Date/Time March 09, 2019 at 03:20 Initial Consult Date Date/Time of Note DATE: 03/11/19 TIME: 07:51 Exam/Review of Systems Exam Vitals Vital Signs Date Temp Pulse Resp B/P (MAP) Pulse Ox O2 O2 Flow FiO2 Time Delivery Rate 03/11/19 99.5 99 18 149/82 93 02:00 (104) 03/10/19 Room Air 02:00 Intake and Output 03/10/19 03/10/19 03/11/19 1515:00 23:00 07:00 IntakeIntake Total 460 ml 1710 ml 1470 ml OutputOutput Total 900 ml 1305 ml 1000 ml BalanceBalance -440 ml 405 ml 470 ml Results Result Diagram: 03/11/19 0549 03/11/19 0549 Results 24hrs Laboratory Tests Test 03/10/19 12:24 03/10/19 17:50 03/11/19 00:17 03/11/19 01:00 Bedside Glucose 138 139 127 Vancomycin Level 12.8 Trough Test 03/11/19 05:23 03/11/19 05:49 Bedside Glucose 125 White Blood Count 5.6 Red Blood Count 2.84 L Hemoglobin 8.0 L Hematocrit 25.0 L Mean Corpuscular 88.0 Volume Mean Corpuscular 28.2 L Hemoglobin Mean Corpuscular 32.0 Hemoglobin Concent Red Cell 13.6 Distribution Width Platelet Count 288 Mean Platelet Volume 10.3 Immature 0.500 H Granulocytes % Neutrophils % 79.7 H Lymphocytes % 8.0 L Monocytes % 8.0 Eosinophils % 3.4 Basophils % 0.4 Nucleated Red Blood 0.0 Cells % Immature 0.030 Granulocytes # Neutrophils # 4.5 Lymphocytes # 0.5 L Monocytes # 0.5 Eosinophils # 0.2 Basophils # 0.0 Nucleated Red Blood 0.0 Cells # Sodium Level 137 Potassium Level 3.8 Chloride Level 108 Carbon Dioxide Level 23 Anion Gap 6 Blood Urea Nitrogen 13 Creatinine 0.67 Est Glomerular > 60 Filtrat Rate mL/min Glucose Level 113 Calcium Level 8.2 L Phosphorus Level 3.7 Magnesium Level 1.9 B-Type Natriuretic 401 H Peptide Triglycerides Level 93 Cholesterol Level 69 L LDL Cholesterol, 33 Calculated HDL Cholesterol 17 L Cholesterol/HDL 4.0 Ratio Procalcitonin 0.08 Medications Medication Current Medications Alteplase, Recombinant (Cathflo (Activase)) 2 mg MAY REPEAT X1 PRN CATHETER IF CATHETER REMAINS OCCULUDED Last administered on 03/09/19at 02:30; Admin Dose 2 MG; Start 03/09/19 at 00:30 Vancomycin HCl (Vanco Iv Per Pharmacy) VANCOMYCIN PER PHARMACY PER PROTOCOL XX ; Start 03/09/19 at 06:00 Acetaminophen (Tylenol Tab) 650 mg Q4H PRN PO MILD PAIN(1-3)OR ELEVATED TEMP Last administered on 03/10/19at 16:06; Admin Dose 650 MG; Start 03/09/19 at 06:00 Acetaminophen/ Hydrocodone Bitart ([place] (5/325)) 1 tab Q4H PRN PO MODERATE PAIN LEVEL 4-6; Start 03/09/19 at 06:00 Hydromorphone HCl (Dilaudid) 0.5 mg Q3H PRN IV SEVERE PAIN LEVEL 7-10; Start 03/09/19 at 06:00 Insulin Aspart (Novolog Insulin Pen) NOVOLOG *MILD* ALGORI... Q6 SC ; Start 03/09/19 at 06:00 Piperacillin Sod/ Tazobactam Sod 100 ml @ 200 mls/hr Q6 IVPB Last administered on 03/11/19at 05:24; Admin Dose 200 MLS/HR; Start 03/09/19 at 08:00 Miscellaneous Information 1 ea NOTE XX ; Start 03/09/19 at 06:30 Glucose (Glutose) 15 gm Q15M PRN PO DECREASED GLUCOSE; Start 03/09/19 at 06:30 Glucose (Glutose) 22.5 gm Q15M PRN PO DECREASED GLUCOSE; Start 03/09/19 at 06:30 Dextrose (D50w Syringe) 25 ml Q15M PRN IV DECREASED GLUCOSE; Start 03/09/19 at 06:30 Dextrose (D50w Syringe) 50 ml Q15M PRN IV DECREASED GLUCOSE; Start 03/09/19 at 06:30 Glucagon (Glucagen) 1 mg Q15M PRN IM DECREASED GLUCOSE; Start 03/09/19 at 06:30 Glucose (Glutose) 15 gm Q15M PRN BUCCAL DECREASED GLUCOSE; Start 03/09/19 at 06:30 Vancomycin HCl 1.25 gm/Sodium Chloride 250 ml @ 83.333 mls/ hr Q12H IVPB Last administered on 03/11/19at 02:40; Admin Dose 83.333 MLS/HR; Start 03/09/19 at 13:00 Miscellaneous Information (Pending Santyl Order For Wound Care) This patient mora... PRN PRN XX WOUND CARE; Start 03/09/19 at 12:00 Total Parenteral Nutrition 1,000 ml @ 80 mls/hr [id number] IV Last administered on 03/11/19at 07:36; Admin Dose 80 MLS/HR; Start 03/09/19 at 18:30 Enoxaparin Sodium (Lovenox) 40 mg DAILY SC ; Start 03/12/19 at 09:00 KURT SEO MD March 11, 2019 07:52
[2019-03-11 08:27] VITALS: BP 143/79; PULSE 96; RESP 18
--- NOTE | 2019-03-11 11:33 | CONS ---
Consult Date/Type/Reason Admit Date/Time March 09, 2019 at 03:20 Initial Consult Date 03/10/19 Type of Consult Pulmonary Date/Time of Note DATE: 03/11/19 TIME: 11:31 Subjective Patient remained stable on room air this morning no respiratory distress. Continues TPN. Objective Vital Signs Date Temp Pulse Resp B/P (MAP) Pulse Ox O2 O2 Flow FiO2 Time Delivery Rate 03/11/19 100.1 96 18 143/79 96 08:27 (100) 03/10/19 Room Air 02:00 Intake and Output 03/10/19 03/10/19 03/11/19 1515:00 23:00 07:00 IntakeIntake Total 460 ml 1710 ml 1470 ml OutputOutput Total 900 ml 1305 ml 1000 ml BalanceBalance -440 ml 405 ml 470 ml Exam GENERAL: Well-nourished well-developed gentleman comfortable at rest VITAL SIGNS: per chart NECK: Supple. No JVD or lymphadenopathy. CARDIAC EXAM: S1, S2. No added sounds or murmurs. CHEST: Diminished air entry right lung. ABDOMEN: Soft, nontender. No guarding or rebound. EXTREMITIES: No cyanosis, clubbing or edema. NEUROLOGIC: Generalized weakness. No focal deficits. Results/Medications Result Diagram: 03/11/19 0549 03/11/19 0549 Results 24 hrs Laboratory Tests Test 03/10/19 12:24 03/10/19 17:50 03/11/19 00:17 03/11/19 01:00 Bedside Glucose 138 139 127 Vancomycin Level 12.8 Trough Test 03/11/19 05:23 03/11/19 05:49 Bedside Glucose 125 White Blood Count 5.6 Red Blood Count 2.84 L Hemoglobin 8.0 L Hematocrit 25.0 L Mean Corpuscular 88.0 Volume Mean Corpuscular 28.2 L Hemoglobin Mean Corpuscular 32.0 Hemoglobin Concent Red Cell 13.6 Distribution Width Platelet Count 288 Mean Platelet Volume 10.3 Immature 0.500 H Granulocytes % Neutrophils % 79.7 H Lymphocytes % 8.0 L Monocytes % 8.0 Eosinophils % 3.4 Basophils % 0.4 Nucleated Red Blood 0.0 Cells % Immature 0.030 Granulocytes # Neutrophils # 4.5 Lymphocytes # 0.5 L Monocytes # 0.5 Eosinophils # 0.2 Basophils # 0.0 Nucleated Red Blood 0.0 Cells # Sodium Level 137 Potassium Level 3.8 Chloride Level 108 Carbon Dioxide Level 23 Anion Gap 6 Blood Urea Nitrogen 13 Creatinine 0.67 Est Glomerular > 60 Filtrat Rate mL/min Glucose Level 113 Calcium Level 8.2 L Phosphorus Level 3.7 Magnesium Level 1.9 B-Type Natriuretic 401 H Peptide Triglycerides Level 93 Cholesterol Level 69 L LDL Cholesterol, 33 Calculated HDL Cholesterol 17 L Cholesterol/HDL 4.0 Ratio Procalcitonin 0.08 Medications Current Medications Alteplase, Recombinant (Cathflo (Activase)) 2 mg MAY REPEAT X1 PRN CATHETER IF CATHETER REMAINS OCCULUDED Last administered on 03/09/19at 02:30; Admin Dose 2 MG; Start 03/09/19 at 00:30 Vancomycin HCl (Vanco Iv Per Pharmacy) VANCOMYCIN PER PHARMACY PER PROTOCOL XX ; Start 03/09/19 at 06:00 Acetaminophen (Tylenol Tab) 650 mg Q4H PRN PO MILD PAIN(1-3)OR ELEVATED TEMP Last administered on 03/10/19at 16:06; Admin Dose 650 MG; Start 03/09/19 at 06:00 Acetaminophen/ Hydrocodone Bitart ([place] (5/325)) 1 tab Q4H PRN PO MODERATE PAIN LEVEL 4-6; Start 03/09/19 at 06:00 Hydromorphone HCl (Dilaudid) 0.5 mg Q3H PRN IV SEVERE PAIN LEVEL 7-10; Start 03/09/19 at 06:00 Insulin Aspart (Novolog Insulin Pen) NOVOLOG *MILD* ALGORI... Q6 SC ; Start 03/09/19 at 06:00 Piperacillin Sod/ Tazobactam Sod 100 ml @ 200 mls/hr Q6 IVPB Last administered on 03/11/19at 05:24; Admin Dose 200 MLS/HR; Start 03/09/19 at 08:00 Miscellaneous Information 1 ea NOTE XX ; Start 03/09/19 at 06:30 Glucose (Glutose) 15 gm Q15M PRN PO DECREASED GLUCOSE; Start 03/09/19 at 06:30 Glucose (Glutose) 22.5 gm Q15M PRN PO DECREASED GLUCOSE; Start 03/09/19 at 06:30 Dextrose (D50w Syringe) 25 ml Q15M PRN IV DECREASED GLUCOSE; Start 03/09/19 at 06:30 Dextrose (D50w Syringe) 50 ml Q15M PRN IV DECREASED GLUCOSE; Start 03/09/19 at 06:30 Glucagon (Glucagen) 1 mg Q15M PRN IM DECREASED GLUCOSE; Start 03/09/19 at 06:30 Glucose (Glutose) 15 gm Q15M PRN BUCCAL DECREASED GLUCOSE; Start 03/09/19 at 06:30 Vancomycin HCl 1.25 gm/Sodium Chloride 250 ml @ 83.333 mls/ hr Q12H IVPB Last administered on 03/11/19at 02:40; Admin Dose 83.333 MLS/HR; Start 03/09/19 at 13:00 Miscellaneous Information (Pending Santyl Order For Wound Care) This patient mora... PRN PRN XX WOUND CARE; Start 03/09/19 at 12:00 Total Parenteral Nutrition 1,000 ml @ 80 mls/hr [id number] IV Last administered on 03/11/19at 07:36; Admin Dose 80 MLS/HR; Start 03/09/19 at 18:30 Enoxaparin Sodium (Lovenox) 40 mg DAILY SC ; Start 03/12/19 at 09:00 Assessment/Plan Hospital Course (Demo Recall) Assessment 1. Right pleural effusion possibly post infective versus malignant. 2 history of upper extremity deep vein thrombosis 3. History of colon cancer status post resection and chemotherapy. Postop ileus on TPN. Plan 1. Continue TPN. Consider initiation of p.o. diet per surgery. 2. Right thoracentesis.Pleural fluid studies. 3. Encourage out of bed RAFAEL HERNANDEZ MD, [facility] March 11, 2019 11:33
[2019-03-11] MEDS ORDERED: LIDOCAINE 1% (MPF) 5 ML VIAL ONE (13:11)
[2019-03-11] MEDS ORDERED: POTASSIUM CHLORIDE 50 ML IVPB ONE (13:30)
--- NOTE | 2019-03-11 13:50 | CONS ---
Assessment/Plan Assessment/Plan Hospital Course (Demo Recall) # sepsis, respiratory - Sirs with Fevers 101 on admission - s/p sepsis due to complicated intra-abdominal infection and pneumonia, resolved - recurrent pleural effusion, follow up chest US on 02/17/2019 showed small R sided effusion. CXR 03/09/19 showed moderate R sided pleural effusion - s/p congested cough probably due to pleural effusion and fluid overload, influenza AB negative on 02/17/2019. Improving and stable on room air - s/p R pleural effusion, exudative process, parapneumonic effusion LDH 1601 protein 3.2, no e/o malignancy on cytology - s/p R sided thoracentesis on 02/05/2019 - VIJAY # GI, onc - s/p ex lap, washout of abdominal abscess, CLEVE, diverting loop ileostomy on 02/11/2019 - s/p open Reagan reversal and colorectal low pelvic anastomosis, segmental partial colectomy, and open incarcerated incisional and parastomal hernia repairs with mesh by Dr. Art on 01/21/2019 - thrush, resolving - follow up CT on 02/04/2019 did not identify definite point of leak--> anastomotic leak was identified on gastograffin - s/p CT guided drainage of abscess in LLQ on 02/01/2019 - abdominal wound culture 01/30/19 and abscess culture 01/31/19 grew pseudomonas, joseline albicans and glabrata - s/p colostomy reversal - stage III sigmoid colon cancer, status post prior colectomy/colostomy and ch emo in 2017 # renal, cardiovascular - recurrent acute kidney injury on chronic kidney disease - acute on chronic diastolic CHF, improved - s/p atrial fibrillation with RVR, converted to SR - Hx hypertension - Hx left upper extremity DVT - superficial thrombus in R cephalic vein in the forearm and in L cephalic vein in the antecubital fossa as visualized on NOY 02/05/2019 # other conditions - s/p R conjunctivitis, resolved after neomycin eye drop x 7 days - Of note: Pt previously took meropenem (01/30/2019-02/03/2019), metronidazole (02/04/2019-02/16/2019) and cefepime (02/04/2019-02/18/2019); Flagyl (02/24/19 - 03/08/19) and Levaquin ( - 03/08/19); s/p fluconazole Recommendations: - Continue vanco/zosyn (03/09/19 - ) - Consider repeat CT Chest/Abd/pelvis --- consider adding CT abdomen pelvis to current CT chest ordered (relayed to primary team) - serial procalc - await megan drain cxs - await thoracentesis studies/cxs Consultation Date/Type/Reason Admit Date/Time March 09, 2019 at 03:20 Initial Consult Date Date/Time of Note DATE: 03/11/19 TIME: 13:46 Exam/Review of Systems Exam Vitals Vital Signs Date Temp Pulse Resp B/P (MAP) Pulse Ox O2 O2 Flow FiO2 Time Delivery Rate 03/11/19 100.1 96 18 143/79 96 08:27 (100) 03/10/19 Room Air 02:00 Intake and Output 03/10/19 03/10/19 03/11/19 1515:00 23:00 07:00 IntakeIntake Total 460 ml 1710 ml 1470 ml OutputOutput Total 900 ml 1305 ml 1000 ml BalanceBalance -440 ml 405 ml 470 ml Constitutional: alert, oriented, well developed Head: normocephalic, atraumatic Eyes: EOMI Neck: supple Respiratory: clear to auscultation Cardiovascular: regular rate and rhythm Gastrointestinal: soft, distended, other (drain in place) Neurological: 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 II-XII 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 Results Result Diagram: 03/11/19 0549 03/11/19 0549 Results 24hrs Laboratory Tests Test 03/10/19 17:50 03/11/19 00:17 03/11/19 01:00 03/11/19 05:23 Bedside Glucose 139 127 125 Vancomycin Level 12.8 Trough Test 03/11/19 05:49 03/11/19 12:07 White Blood Count 5.6 Red Blood Count 2.84 L Hemoglobin 8.0 L Hematocrit 25.0 L Mean Corpuscular 88.0 Volume Mean Corpuscular 28.2 L Hemoglobin Mean Corpuscular 32.0 Hemoglobin Concent Red Cell 13.6 Distribution Width Platelet Count 288 Mean Platelet Volume 10.3 Immature 0.500 H Granulocytes % Neutrophils % 79.7 H Lymphocytes % 8.0 L Monocytes % 8.0 Eosinophils % 3.4 Basophils % 0.4 Nucleated Red Blood 0.0 Cells % Immature 0.030 Granulocytes # Neutrophils # 4.5 Lymphocytes # 0.5 L Monocytes # 0.5 Eosinophils # 0.2 Basophils # 0.0 Nucleated Red Blood 0.0 Cells # Sodium Level 137 Potassium Level 3.8 Chloride Level 108 Carbon Dioxide Level 23 Anion Gap 6 Blood Urea Nitrogen 13 Creatinine 0.67 Est Glomerular > 60 Filtrat Rate mL/min Glucose Level 113 Calcium Level 8.2 L Phosphorus Level 3.7 Magnesium Level 1.9 B-Type Natriuretic 401 H Peptide Triglycerides Level 93 Cholesterol Level 69 L LDL Cholesterol, 33 Calculated HDL Cholesterol 17 L Cholesterol/HDL 4.0 Ratio Procalcitonin 0.08 Bedside Glucose 146 Medications Medication Current Medications Alteplase, Recombinant (Cathflo (Activase)) 2 mg MAY REPEAT X1 PRN CATHETER IF CATHETER REMAINS OCCULUDED Last administered on 03/09/19at 02:30; Admin Dose 2 MG; Start 03/09/19 at 00:30 Vancomycin HCl (Vanco Iv Per Pharmacy) VANCOMYCIN PER PHARMACY PER PROTOCOL XX ; Start 03/09/19 at 06:00 Acetaminophen (Tylenol Tab) 650 mg Q4H PRN PO MILD PAIN(1-3)OR ELEVATED TEMP Last administered on 03/10/19at 16:06; Admin Dose 650 MG; Start 03/09/19 at 06:00 Acetaminophen/ Hydrocodone Bitart ([place] (5/325)) 1 tab Q4H PRN PO MODERATE PAIN LEVEL 4-6; Start 03/09/19 at 06:00 Hydromorphone HCl (Dilaudid) 0.5 mg Q3H PRN IV SEVERE PAIN LEVEL 7-10; Start 03/09/19 at 06:00 Insulin Aspart (Novolog Insulin Pen) NOVOLOG *MILD* ALGORI... Q6 SC Last administered on 03/11/19at 12:09; Admin Dose 1 UNIT; Start 03/09/19 at 06:00 Piperacillin Sod/ Tazobactam Sod 100 ml @ 200 mls/hr Q6 IVPB Last administered on 03/11/19at 12:04; Admin Dose 200 MLS/HR; Start 03/09/19 at 08:00 Miscellaneous Information 1 ea NOTE XX ; Start 03/09/19 at 06:30 Glucose (Glutose) 15 gm Q15M PRN PO DECREASED GLUCOSE; Start 03/09/19 at 06:30 Glucose (Glutose) 22.5 gm Q15M PRN PO DECREASED GLUCOSE; Start 03/09/19 at 0 6:30 Dextrose (D50w Syringe) 25 ml Q15M PRN IV DECREASED GLUCOSE; Start 03/09/19 at 06:30 Dextrose (D50w Syringe) 50 ml Q15M PRN IV DECREASED GLUCOSE; Start 03/09/19 at 06:30 Glucagon (Glucagen) 1 mg Q15M PRN IM DECREASED GLUCOSE; Start 03/09/19 at 06:30 Glucose (Glutose) 15 gm Q15M PRN BUCCAL DECREASED GLUCOSE; Start 03/09/19 at 06:30 Vancomycin HCl 1.25 gm/Sodium Chloride 250 ml @ 83.333 mls/ hr Q12H IVPB Last administered on 03/11/19at 02:40; Admin Dose 83.333 MLS/HR; Start 03/09/19 at 1 3:00 Miscellaneous Information (Pending Santyl Order For Wound Care) This patient mora... PRN PRN XX WOUND CARE; Start 03/09/19 at 12:00 Total Parenteral Nutrition 1,000 ml @ 80 mls/hr [id number] IV Last administered on 03/11/19at 07:36; Admin Dose 80 MLS/HR; Start 03/09/19 at 18:30 Enoxaparin Sodium (Lovenox) 40 mg DAILY SC ; Start 03/12/19 at 09:00 Potassium Chloride 50 ml @ 50 mls/hr ONCE ONCE IVPB ; Start 03/11/19 at 13:30; Stop 03/11/19 at 14:29 KURT SEO MD March 11, 2019 13:50
--- NOTE | 2019-03-11 14:17 | CONS ---
DATE OF ADMISSION: 03/09/2019 DATE OF CONSULTATION: TYPE OF CONSULTATION: Nephrology. REASON FOR CONSULTATION: History of acute kidney injury, history of proteinuria. PHYSICIAN REQUESTING CONSULT: Dr. Zheng. HISTORY OF PRESENT ILLNESS: This is a 59-year-old male with a past medical history of DVT, dyslipide richie, hypertension, CHF, history of colon cancer, status post chemotherapy, surgical resection who pre viously had a prolonged course at [facility] due to complications from recent abdom inal surgery for colon cancer. The patient eventually required an exploratory laparotomy with colost bola. The patient had a prolonged hospital course but eventually was discharged home with IV antibiot ics. The patient now returns back to [facility] due to malfunction of left upper e xtremity PICC line. The patient was subsequently admitted to med/surg for evaluation. In terms of patient's renal history, the patient developed acute kidney injury during the hospital co urse due to issues of hemodynamics and sepsis. The patient's renal function has improved. The patie nt now presents with a renal function within normal limits. There has been no report of any hemoptys is, hematemesis, or hematochezia. PAST MEDICAL HISTORY: As stated above, history of AFib, history of DVT, history of dyslipidemia, hist ory of sleep apnea, history of hypertension, history of CHF, history of colon cancer surgery. The pa tient is status post colectomy with ileostomy, history of colon cancer resection. FAMILY HISTORY: No family history of kidney disease. SOCIAL HISTORY: Does not drink, smoke or do drugs. MEDICATIONS: The patient's medications have been reviewed. REVIEW OF SYSTEMS: A 14-point review of systems was conducted. Pertinent positives stated in HPI, o therwise negative. PHYSICAL EXAMINATION: VITAL SIGNS: Blood pressure 143/79, respiration 18, pulse 96, temperature 100.1. HEENT: Head is normocephalic. NECK: Supple. HEART: Regular rate. LUNGS: Show diminished breath sounds at the base. ABDOMEN: Soft, nontender to palpation without rebound or guarding. EXTREMITIES: Negative for clubbing, cyanosis, no edema. DERMATOLOGIC: No rashes. MUSCULOSKELETAL: No joint effusion. NEUROLOGIC: No focal deficits. MEDICATIONS: The patient's medications have been reviewed. LABORATORY DATA: Has been reviewed. ASSESSMENT AND PLAN: This is a 59-year-old male who presents with: 1. History of acute kidney injury. The patient's renal function is improved. At this point, would continue current treatment plan. Continue supportive care, renally dose all medication. 2. Right pleural effusion, etiology may be infectious versus malignant. Continue to monitor. Consi crispin thoracentesis. Follow up with pulmonary. 3. History of colon cancer, status post resection, history of ileostomy. Continue to monitor. Cons ider oncology evaluation. 4. Possible sepsis secondary to pneumonia. Continue current medical management. Follow up with inf ectious disease, continue broad spectrum antibiotics. 5. History of diastolic heart failure. The patient is currently compensated. Continue to monitor. 6. History of atrial fibrillation. Continue medical management. 7. History of hypertension. Continue to monitor. 8. History of upper extremity deep venous thrombosis. 9. Status post exploratory laparotomy with abdominal abscess washout. Continue to monitor. Thank you, Dr. Zheng, for this interesting consult. It will be a pleasure to follow patient with you throughout the hospital course. Dictated By: SUSAN ZURITA DO NR/NTS Conf#: [id number] DID#: [id number] CC: KURT SEO MD; ANDREY ZHENG MD;*EndCC*
[2019-03-11 14:34] VITALS: BP 139/70; PULSE 88; RESP 19
--- NOTE | 2019-03-11 16:07 | CONS ---
DATE OF ADMISSION: 03/09/2019 DATE OF CONSULTATION: 03/11/2019 TYPE OF CONSULTATION: Surgical. REQUESTING PHYSICIAN: Dr. Zheng. REASON FOR CONSULTATION: Evaluate this patient from abdominal point of view because the patient has had a recent operation and recent problem with his abdomen, but the reason for admission is now becau se the PICC line that the patient has been receiving antibiotics and TPN at home through which has no t been functioning properly, so the patient came to the emergency room 2 days ago and was admitted fo r this matter. HISTORY OF PRESENT ILLNESS: Apparently, the patient came to the emergency room because of the malfun ctioning of the PICC line on the left side and also when he came to the emergency room on 03/08/2019 at 2300 hours, he was found to have temperature 101, heart rate 85, respiration 18, blood pressure 14 9/92, saturation 96% on room air. So the patient was evaluated and CBC was done which showed the WBC was only 6300 with 77.6% neutrophil which is almost normal, differential normal leukocyte, hemoglobi n was 8.4, hematocrit 26.3 and chemistry was done at that time, which sodium was slightly low at 134, potassium 3.8 and the rest of the figures was almost normal. Alkaline phosphatase was 190, slightly elevated. Total protein was low 6.5, albumin was 3.1, which is low. Coagulation profile shows INR was 1.38, which is upper normal limit. Then urinalysis showed only 1+ protein, otherwise was negativ e except trace ketones. At that time, a chest x-ray was done in the emergency department which was r ead as follows: 1. Slight retraction of the left upper extremity PICC compared to the prior study of 02/26/2019. No terminating in the region of the cavoatrial junction. 2. Persistent right lung consolidation with moderate pleural effusion. Findings are grossly unchang ed. So, considering the above findings, the patient was admitted, started on antibiotics and consult ation from multiple speciality including infectious disease and pulmonary and nephrology was requeste d. This is a 59-year-old gentleman who, as was mentioned, presented to the emergency room on 03/09/2019 because of malfunction of the left upper extremity PICC line. The patient has been receiving TPN and antibiotic Levaquin and Flagyl IV through this line because of the recent problem that the patient h ad sustained in the hospital while the patient underwent operation which was an extensive operation f or closure and takedown of the colostomy and also repair of the parastomal hernia and the reason that the patient had colostomy was the last year, patient had a cancer of colon sigmoid for which he had underwent resection of the cancer and colostomy and also patient underwent chemotherapy after that an d recently in February 2019, the patient was admitted for the closure of colostomy and repair of the pawan tomal hernia, which was done, but later developed an abdominal abscess for which a drain was performe d and later on, it was suspicious to leak; therefore, laparotomy was performed and diverting loop ile ostomy was performed on the right side for the patient and the culture for the abscess of the abdomen was performed. According to the culture results, the patient was started on different kind of antib iotics per infectious disease and eventually patient got better and also, it should be mentioned that while in the previous admission which was in the beginning of February in this hospital, patient had pleu ral effusion and for which once patient underwent pleuracentesis, eventually patient was feeling bett er and was discharged home, as was mentioned, with PICC line on the left side to have TPN and antibio tic at home. Now, patient is admitted for malfunctioning the PICC line and also was found to have fe leatha of 101 in the emergency room. ALLERGIES: NOT KNOWN. REVIEW OF SYSTEMS: Basically is what was mentioned in the history of present illness. Respiratory s ystem: History of obstructive sleep apnea. PAST MEDICAL HISTORY: Also, patient has had history of atrial fibrillation. History of left upper e xtremity superficial vein thrombosis. Dyslipidemia. Sleep apnea. Hypertension. History of congest romel heart failure. History of colon cancer treated with chemotherapy and surgery. PAST SURGICAL HISTORY: Colon resection last year, takedown of the colostomy this year, placement of ileostomy this year. 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 PHYSICAL EXAMINATION: GENERAL: Today, patient is alert, awake, oriented x3, sitting on the bedside dangling his feet and h is legs and having some soup. The patient just came back from radiology department where they did a right-sided thoracentesis. VITAL SIGNS: Today, temperature maximum has been 100.1, heart rate 96, respiration 18, blood pressur e 143/79, saturation 96% on room air. CHEST: Symmetrical expansion of hemithoraces. HEART: Regular. LUNGS: Decreased breathing sound on bases, especially on the right side. ABDOMEN: Slightly protruded with fat. There is midline incision for the laparotomy, which was done about a month ago or so. The wound is clean now, although the scar is white and it has a mild infect ion of the subcutaneous tissue, but grossly there is no infection at this time. Ileostomy is functio armen and there is yellowish liquid in the ileostomy bag. Left side left lower quadrant there is a pi gtail drain connected to the accordion bag which has minimal drainage, but what is in the tubing appe ars purulent. And we know that for this matter, patient is receiving antibiotics IV. There is no te nderness. There is no guarding, no rebound tenderness in the abdominal area. No sign of peritoneal irritation at this time. LOWER EXTREMITIES: No pitting edema, no calf tenderness. LABORATORY DATA: Today, WBC 5600 with 79% segmented with shift to the left, hemoglobin 8, hematocrit 25. Chemistry: Today, sodium, potassium, BUN, creatinine normal. B-natriuretic peptide is 401, wh ich is elevated. Cholesterol is 69, which is low. HDL cholesterol is 17, which is very low. No oth er lab test was done today. IMAGING: Chest x-ray today was done which revealed presence of moderate right pleural effusion and a lso left pleural effusion and for this matter, patient was taken to the radiology department and pleu racentesis on the right side was done, but unfortunately, the report is not in the computer, so I am not sure how many mL they have drained. IMPRESSION AND PLAN: Here is a 59-year-old gentleman who was in this hospital about 2 months ago, u nderwent closure of colostomy and repair of the paracolostomy hernia. The patient got complicated po stop requiring placement of the pigtail percutaneous drain for drainage of the abscess in the left lo wer quadrant and later on, laparotomy and placement of diverting ileostomy. The patient has had also problem with his lungs, especially on the right side pleural effusion which once has been drained th at aspirated before and now again reaccumulated and a recent chest x-ray shows pleural effusion and a lso some consolidation in the right lung. The pulmonary team is seeing the patient and doing an inve stigation in regard to this matter. The patient also has had some evidence of acute kidney failure o n chronic kidney damage which is being handled by the nephrology department. From a general surgical point of view at this time, patient's abdomen is soft. The patient's ileostomy is functioning, ou what appears in the ileostomy is liquidish and there is no formed content in that. The patient mora s been also on oral feeding but as per patient and per family, the appetite is not good. So, at this time, there is no acute surgical abdomen and I would suggest that we continue the antibiotics as has been initiated by the infectious disease and from surgical point of view, we will continue to keep t he pigtail drain in the left lower quadrant and we will continue to follow the patient and make neces dennis decision according to the hospital course. Dictated By: LIAT LOOMIS MD PS/NTS Conf#: [id number] DID#: [id number] CC: ANDREY ZHENG MD;*EndCC*
[2019-03-11] MEDS ORDERED: FUROSEMIDE 20 MG INJ IV ONE (16:30)
--- NOTE | 2019-03-11 18:45 | PN ---
Date/Time of Note Date/Time of Note DATE: 03/11/19 TIME: 18:42 Assessment/Plan VTE Prophylaxis Risk score (from Nsg)>0 risk: 5 SCD applied (from Nsg): Yes Pharmacological prophylaxis: LMWH Lines/Catheters IV Catheter Type (from Nrsg): PICC Line Central line still needed: Yes Urinary Cath still in place: No Assessment/Plan Hospital Course Patient is awake alert, with low-grade fever, denies shortness of breath at rest, patient is status post thoracentesis today, discussed with Dr. Vázquez, will obtain a CT of the abdomen and pelvis. Assessment/Plan -Sepsis secondary to pneumonia, continue IV hydration, broad-spectrum antibiotics. Dr. Vázquez is following in infection disease consultation. -Right lower lobe pneumonia -Right lung pleural effusion status post ultrasound-guided guided thoracentesis on 03/11/2019. Dr. Cardona is following in pulmonology consultation -Left upper extremity PICC line malfunction, resolved, venous Doppler is negative for DVT. -Chest pain with abnormal EKG, troponin is negative x3. Dr. Alejandro is following in cardiology consultation. -Stage III sigmoid colon cancer, status post surgery and chemo in 2018. -Chronic diastolic CHF -Paroxysmal atrial fibrillation, continue Lovenox. -Protein calorie malnutrition, continue TPN due to dehydration and malabsorption due to large ileostomy output. -History of anastomotic leak and intra-abdominal abscess, Status post laparotomy, washout of the peritoneal cavity, placement of a diverting loop ileostomy in right lower quadrant for protection of the anastomosis in the colorectal area on 02/11/[address] Art. Patient was on Levaquin and Flagyl at home. -History of open Reagan reversal and colorectal low pelvic anastomosis, segmental partial colectomy, and open incarcerated incisional and parastomal hernia repairs with mesh by Dr. Art on 01/21/2019. -Hx of Obstructive sleep apnea Further recommendations based on clinical course. Plan of care discussed with Dr. Fox. Result Diagram: 03/11/19 0549 03/11/19 0549 Results 24hrs Laboratory Tests Test 03/11/19 00:17 03/11/19 01:00 03/11/19 05:23 03/11/19 05:49 Bedside Glucose 127 125 Vancomycin Level 12.8 Trough White Blood Count 5.6 Red Blood Count 2.84 L Hemoglobin 8.0 L Hematocrit 25.0 L Mean Corpuscular 88.0 Volume Mean Corpuscular 28.2 L Hemoglobin Mean Corpuscular 32.0 Hemoglobin Concent Red Cell 13.6 Distribution Width Platelet Count 288 Mean Platelet Volume 10.3 Immature 0.500 H Granulocytes % Neutrophils % 79.7 H Lymphocytes % 8.0 L Monocytes % 8.0 Eosinophils % 3.4 Basophils % 0.4 Nucleated Red Blood 0.0 Cells % Immature 0.030 Granulocytes # Neutrophils # 4.5 Lymphocytes # 0.5 L Monocytes # 0.5 Eosinophils # 0.2 Basophils # 0.0 Nucleated Red Blood 0.0 Cells # Sodium Level 137 Potassium Level 3.8 Chloride Level 108 Carbon Dioxide Level 23 Anion Gap 6 Blood Urea Nitrogen 13 Creatinine 0.67 Est Glomerular > 60 Filtrat Rate mL/min Glucose Level 113 Calcium Level 8.2 L Phosphorus Level 3.7 Magnesium Level 1.9 B-Type Natriuretic 401 H Peptide Triglycerides Level 93 Cholesterol Level 69 L LDL Cholesterol, 33 Calculated HDL Cholesterol 17 L Cholesterol/HDL 4.0 Ratio Procalcitonin 0.08 Test 03/11/19 12:07 03/11/19 12:47 03/11/19 17:33 Bedside Glucose 146 161 Body Fluid Type Body Fluid 607 Lactate Dehydrogenas e Total Protein 4.3 #L Exam/Review of Systems Exam Vitals Vital Signs Date Temp Pulse Resp B/P (MAP) Pulse Ox O2 O2 Flow FiO2 Time Delivery Rate 03/11/19 98.8 88 19 139/70 96 14:34 (93) 03/10/19 Room Air 02:00 Intake and Output 03/10/19 03/10/19 03/11/19 1515:00 23:00 07:00 IntakeIntake Total 460 ml 1710 ml 1470 ml OutputOutput Total 900 ml 1305 ml 1000 ml BalanceBalance -440 ml 405 ml 470 ml Constitutional: alert, oriented Head: normocephalic Neck: supple Respiratory: diminished breath sounds Cardiovascular: nl pulses Gastrointestinal: soft, non-tender, other (Abdominal surgical incision with dressing, left lower quadrant drain) Musculoskeletal: nl extremities to inspection Extremities: normal pulses Neurological: nl mental status Skin: nl turgor Results Results 24hrs Laboratory Tests Test 03/11/19 00:17 03/11/19 01:00 03/11/19 05:23 03/11/19 05:49 Bedside Glucose 127 125 Vancomycin Level 12.8 Trough White Blood Count 5.6 Red Blood Count 2.84 L Hemoglobin 8.0 L Hematocrit 25.0 L Mean Corpuscular 88.0 Volume Mean Corpuscular 28.2 L Hemoglobin Mean Corpuscular 32.0 Hemoglobin Concent Red Cell 13.6 Distribution Width Platelet Count 288 Mean Platelet Volume 10.3 Immature 0.500 H Granulocytes % Neutrophils % 79.7 H Lymphocytes % 8.0 L Monocytes % 8.0 Eosinophils % 3.4 Basophils % 0.4 Nucleated Red Blood 0.0 Cells % Immature 0.030 Granulocytes # Neutrophils # 4.5 Lymphocytes # 0.5 L Monocytes # 0.5 Eosinophils # 0.2 Basophils # 0.0 Nucleated Red Blood 0.0 Cells # Sodium Level 137 Potassium Level 3.8 Chloride Level 108 Carbon Dioxide Level 23 Anion Gap 6 Blood Urea Nitrogen 13 Creatinine 0.67 Est Glomerular > 60 Filtrat Rate mL/min Glucose Level 113 Calcium Level 8.2 L Phosphorus Level 3.7 Magnesium Level 1.9 B-Type Natriuretic 401 H Peptide Triglycerides Level 93 Cholesterol Level 69 L LDL Cholesterol, 33 Calculated HDL Cholesterol 17 L Cholesterol/HDL 4.0 Ratio Procalcitonin 0.08 Test 03/11/19 12:07 03/11/19 12:47 03/11/19 17:33 Bedside Glucose 146 161 Body Fluid Type Body Fluid 607 Lactate Dehydrogenas e Total Protein 4.3 #L Medications Medication Current Medications Alteplase, Recombinant (Cathflo (Activase)) 2 mg MAY REPEAT X1 PRN CATHETER IF CATHETER REMAINS OCCULUDED Last administered on 03/09/19at 02:30; Admin Dose 2 MG; Start 03/09/19 at 00:30 Vancomycin HCl (Vanco Iv Per Pharmacy) VANCOMYCIN PER PHARMACY PER PROTOCOL XX ; Start 03/09/19 at 06:00 Acetaminophen (Tylenol Tab) 650 mg Q4H PRN PO MILD PAIN(1-3)OR ELEVATED TEMP Last administered on 03/10/19at 16:06; Admin Dose 650 MG; Start 03/09/19 at 06:00 Acetaminophen/ Hydrocodone Bitart ([place] (5/325)) 1 tab Q4H PRN PO MODERATE PAIN LEVEL 4-6; Start 03/09/19 at 06:00 Hydromorphone HCl (Dilaudid) 0.5 mg Q3H PRN IV SEVERE PAIN LEVEL 7-10; Start 03/09/19 at 06:00 Insulin Aspart (Novolog Insulin Pen) NOVOLOG *MILD* ALGORI... Q6 SC Last administered on 03/11/19at 17:44; Admin Dose 1 UNIT; Start 03/09/19 at 06:00 Piperacillin Sod/ Tazobactam Sod 100 ml @ 200 mls/hr Q6 IVPB Last administered on 03/11/19at 17:37; Admin Dose 200 MLS/HR; Start 03/09/19 at 08:00 Miscellaneous Information 1 ea NOTE XX ; Start 03/09/19 at 06:30 Glucose (Glutose) 15 gm Q15M PRN PO DECREASED GLUCOSE; Start 03/09/19 at 06:30 Glucose (Glutose) 22.5 gm Q15M PRN PO DECREASED GLUCOSE; Start 03/09/19 at 06:30 Dextrose (D50w Syringe) 25 ml Q15M PRN IV DECREASED GLUCOSE; Start 03/09/19 at 06:30 Dextrose (D50w Syringe) 50 ml Q15M PRN IV DECREASED GLUCOSE; Start 03/09/19 at 06:30 Glucagon (Glucagen) 1 mg Q15M PRN IM DECREASED GLUCOSE; Start 03/09/19 at 06:30 Glucose (Glutose) 15 gm Q15M PRN BUCCAL DECREASED GLUCOSE; Start 03/09/19 at 06:30 Vancomycin HCl 1.25 gm/Sodium Chloride 250 ml @ 83.333 mls/ hr Q12H IVPB Last administered on 03/11/19at 14:10; Admin Dose 83.333 MLS/HR; Start 03/09/19 at 13:00 Miscellaneous Information [facility] This patient mora... PRN PRN XX WOUND CARE; Start 03/09/19 at 12:00 Total Parenteral Nutrition 1,000 ml @ 80 mls/hr [id number] IV Last administered on 03/11/19at 07:36; Admin Dose 80 MLS/HR; Start 03/09/19 at 18:30 Enoxaparin Sodium (Lovenox) 40 mg DAILY SC ; Start 03/12/19 at 09:00 ODELL PACHECO March 11, 2019 18:45
[2019-03-11 20:00] VITALS: BP 145/75; PULSE 98; RESP 18
--- NOTE | 2019-03-11 20:17 | CONS ---
DATE OF ADMISSION: 03/09/2019 DATE OF CONSULTATION: 03/11/2019 TYPE OF CONSULTATION: Pulmonary. REASON FOR CONSULTATION: Possible congestive heart failure, shortness of breath, chest pain. REQUESTING PHYSICIAN: Andrey Fox M.D. HISTORY OF PRESENT ILLNESS: Mr. Kelly is a 59-year-old male with a history of colon CA status post colectomy with placement of colostomy and was found to have an anastomotic leak recently and underwent repeat surgery, and had an abscess and had to have removal of abscess and placement of drains; hypertension; congestive heart failure, diastolic, acute on chronic with an echo showing EF of 60% to 65%, thus would be diastolic on 01/23/2019 who was discharged to outpatient followup and represented with fevers; history of deep venous thrombosis; history of episode of paroxysmal atrial fibrillation during prior hospitalization who was then discharged to outpatient followup and represented due to a PICC line that was not working that he was using to receive TPN and antibiotics. Initially, upon arrival on the , temperature 101, blood pressure 140/92, pulse 85, respirations 18, satting 96%. The patient's labs were white count 6.3, hemoglobin 11.4, platelet count 281. Sodium of 134, potassium 3.8, creatinine 0.6, BUN 17. Alkaline phosphatase 190, AST 28, ALT 24, albumin 3.1, INR 1.38. The patient underwent a chest x-ray revealing a persistent right lung consolidation, a moderate right pleural effusion. Venous ultrasound that revealed no evidence of DVT, the right basilic vein thrombophlebitis. A chest CT that revealed a reduction of a small to moderate loculated right effusion with improved aeration of right lower lung material seen within the right lower thoracic pleural space cardiomegaly and then a subsequent thoracentesis on the right side today monitoring 75 mL. The patient additionally states now that he has chest pain when taking a deep breath but not at other times, and it also radiates to his back having back pain and dyspnea on exertion. PAST MEDICAL HISTORY: As above in HPI. MEDICATIONS: Currently in hospital: 1. Lovenox TPN. 2. Vancomycin. 3. Zosyn 4. Insulin sliding scale. ALLERGIES: NO KNOWN DRUG ALLERGIES. SOCIAL HISTORY: No current tobacco. History of EtOH abuse but none now. No history of drug abuse. FAMILY HISTORY: No history of sudden cardiac or early CAD. REVIEW OF SYSTEMS: As above in HPI. CONSTITUTIONAL: Positive fevers. PULMONARY: Positive shortness of breath. CARDIOVASCULAR: Positive chest pain. GASTROINTESTINAL: Status post colostomy and colectomy. GENITOURINARY: No hematuria. MUSCULOSKELETAL: Degenerative joint disease. PSYCHIATRIC: The patient denies depression. NEUROLOGIC: No documented history of CVA. ENDOCRINE: No documented history of diabetes mellitus. PHYSICAL EXAMINATION: VITAL SIGNS: Temperature of 98.8, T-max 100.1, blood pressure 130/70, pulse 88, respiratory rate 19, satting 96%. GENERAL: The patient is alert, awake, no acute distress. NECK: JVP approximately 8 to 9 cm of water. CHEST: Fair air movement throughout. HEART: Regular rate and rhythm. Normal S1, S2, I/ systolic murmur. Nondisplaced PMI. ABDOMEN: Positive bowel sounds, soft. EXTREMITIES: No significant pitting edema. ABDOMEN: Initially notable for a colostomy. LABORATORY DATA: Most recent from today, sodium 137, potassium 3.8, creatinine 0.67, BUN of 13. BNP of 401. White blood cell count 5.6, hemoglobin 8.0, platelet count of 288. IMAGING STUDIES: As above in HPI. No further imaging studies for my review at this time. ELECTROCARDIOGRAM: Electrocardiograms for the chart, revealed normal sinus rhythm, rate 84 with right axis deviation and nonspecific ST abnormalities diffusely. IMPRESSION: 1. Chest pain, assess for acute coronary syndrome with chest pain being pleuritic at this time, but patient does have an EKG analysis for acute coronary syndrome. 2. Abnormal echocardiogram with nonspecific ST-T abnormalities, assess for acute coronary syndrome. 3. History of congestive heart failure, diastolic, by most recent echo with increased BNP at this time. Thus, possibly acute on chronic. 4. Right pleural effusion, status post thoracentesis. 5. Colon CA status post colectomy with colostomy complicated by previous abscess requiring drainage. 6. Diabetes mellitus. 7. Fevers. 8. Urinary tract infection. RECOMMENDATIONS: 1. At this time, would continue to follow the patient's blood pressure closely and will write for IV push p.r.n. antihypertensives as necessary with hydralazine and continue to remain elevated. We will start the patient on Clonidine patch. 2. Would complete a rule out for myocardial infarction to ensure the patient's chest pain is not due to acute coronary syndrome, ischemia or infarction. 3. Would continue to check serial EKGs, assess for significant ongoing changes. 4. We will give the patient a dose of Lasix and follow volume status closely and continue the patient's antibiotics and follow up all culture data. 5. Continue the patient's TPN. 6. Followup studies from thoracentesis. Thank you for allowing me to take part in the care of this patient. I will continue to follow along very closely with you, with recommendations to be made as the patient progresses through his inpatient hospital clinical course. Dictated By: EUGENE EMERY/NTS Conf#: [id number] DID#: [id number] CC: ANDREY FOX MD;*EndCC* MTDD
[2019-03-11] MEDS: ACETAMINOPHEN 325 MG TAB PO PRN (20:41)
[2019-03-12] MEDS: VANCOMYCIN HCL 1.25 GM in SOD CHLORIDE 0.9% 250 ML IVPB SCH ×2 (00:55→13:16)
[2019-03-12 02:00] VITALS: BP 150/77; PULSE 94; RESP 17
[2019-03-12] MEDS: PIPER-TAZO 3.375 GM IV (PMX) 100 ML IVPB SCH ×4 (05:27→23:40)
[2019-03-12] MEDS: INSULIN ASPART [NOVOLOG] 3 ML PEN SC SCH ×4 (05:36→23:48)
[2019-03-12 07:58] VITALS: BP 142/73; PULSE 91; RESP 17
[2019-03-12] MEDS: TPN 1,000 ML IV SCH ×2 (09:00→14:54)
[2019-03-12] MEDS: ENOXAPARIN 40 MG/0.4 ML SYG SC SCH (09:22)
--- NOTE | 2019-03-12 09:40 | PN ---
DATE: 03/12/2019 SUBJECTIVE: The patient is stable, no events overnight. OBJECTIVE: VITAL SIGNS: Blood pressure is 142/73, respirations 17, pulse 91, temperature is 100. HEENT: Head is normocephalic. NECK: Supple. HEART: Regular rate. LUNGS: Show diminished breath sounds at the base. ABDOMEN: Soft, nontender to palpation without rebound or guarding. EXTREMITIES: Negative for clubbing, cyanosis, no edema. DERMATOLOGIC: No rashes. MUSCULOSKELETAL: No joint effusion. NEUROLOGIC: No change in exam. MEDICATIONS: Reviewed. LABORATORY DATA: Reviewed. ASSESSMENT AND PLAN: 1. History of acute kidney injury. Renal function is improved. Renal function is stable, continue to monitor. 2. Hypokalemia, replete with potassium chloride. 3. Pleural effusion, etiology may be infectious versus malignant. Continue to monitor. Consider th oracentesis. 4. History of colon cancer, status post resection. Continue to monitor. 5. Sepsis secondary to pneumonia. The patient is completing antibiotic course. 6. Nutrition. Continue TPN. 7. Diastolic heart failure, currently compensated. Continue to monitor. 8. History of atrial fibrillation. 9. History of hypertension. 10. History of upper extremity deep vein thrombosis. 11. Status post exploratory laparotomy with abdominal washout. Dictated By: SUSAN ZURITA DO NR/NTS Conf#: [id number] DID#: [id number] CC: ANDREY ZHENG MD; KURT SEO MD;*EndCC*
[2019-03-12] MEDS ORDERED: POTASSIUM CHLORIDE 100 ML IVPB ONE (10:00)
--- NOTE | 2019-03-12 11:05 | CONS ---
Assessment/Plan Assessment/Plan Assessment/Plan (Daily) Assessment and recommendations; 1. Patient with history of recent colon resection due to cancer status post chemoradiation admitted for shortness of breath due to right lower lobe pneumonia with likely right parapneumonic effusion. Status post thoracentesis yesterday. Cytology is pending on the pleural fluid. Patient currently on appropriate antimicrobial regimen. 2. Postop ileus, maintained on TPN. Continue with supportive care. Further recommendations once pleural fluid cytology is obtained. Consultation Date/Type/Reason Admit Date/Time March 09, 2019 at 03:20 Initial Consult Date 03/10/19 Type of Consult Pulmonary Patient is a 59-year-old gentleman who was admitted on the of this month with complaints of cough. Upon evaluation a chest x-ray was done which is showing a right pleural effusion with possibly right lower lobe pneumonia. Patient denies any chest pain, fever, any sputum production or hemoptysis. At the time I saw him in the room, patient appeared very comfortable on room air. And did not appear to be in any distress whatsoever. Patient denies any recent nausea vomiting. Past medical history; 1. Recently diagnosed colon cancer status post resection, status post chemotherapy. 2. Colostomy. 3. Patient maintained on TPN. 4. History of paroxysmal atrial fibrillation. 5. Upper extremity DVT history. 6. Hypertension. 7. Anemia. 8. History of recent right thoracentesis as well. About a liter of fluid was removed few months ago. Medications; reviewed. Allergies; none. Social history; patient is a former smoker. Family history; noncontributory. Patient does have a supportive family. 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 Currently disabled. Review of systems; denies any headache, visual changes, dysphagia, chest pain, angina, wheezing, complains of scant cough without any sputum production or hemoptysis. Denies any fever or chills. Denies any nausea vomiting. Any edema. Patient has lost some weight recently. Denies any skin changes or any new arthritis symptoms. General exam; elderly male, awake alert, currently no distress. Date/Time of Note DATE: 03/12/19 TIME: 11:02 24 HR Interval Summary Free Text/Dictation Patient's condition is stable. Denies any shortness of breath, chest pain, nausea vomiting or abdominal pain. General exam; elderly male, currently no distress. Awake and alert. Exam/Review of Systems Exam Vitals Vital Signs Date Temp Pulse Resp B/P (MAP) Pulse Ox O2 O2 Flow FiO2 Time Delivery Rate 03/12/19 100.0 91 17 142/73 94 Room Air 07:58 (96) Intake and Output 03/11/19 03/11/19 03/12/19 1515:00 23:00 07:00 IntakeIntake Total 780 ml 1520 ml 1050 ml OutputOutput Total 450 ml 1005 ml 2051 ml BalanceBalance 330 ml 515 ml -1001 ml Exam H EENT exam; supple neck, no JVD. No lymphadenopathy. Midline trachea. No thyromegaly. Patient has fair dentition. No neck masses. Chest exam; diminished breath sounds like regular. Rest of the lung hernandez are clear. S1-S2 audible, no murmurs. Regular rhythm. Abdomen exam; soft, protuberant. Laparotomy scar is well-healed. Colostomy in right lower quadrant. Bowel sounds are very sluggish. Extremity exam; no peripheral edema. 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 Results Result Diagram: 03/12/19 0546 03/12/19 0546 Results 24hrs Laboratory Tests Test 03/11/19 12:07 03/11/19 12:47 03/11/19 17:33 03/11/19 18:38 Bedside Glucose 146 161 Body Fluid Type Body Fluid 607 Lactate Dehydrogenas e Total Protein 4.3 #L Troponin I < 0.012 Test 03/11/19 23:51 03/12/19 00:51 03/12/19 05:35 03/12/19 05:46 Bedside Glucose 163 110 Troponin I < 0.012 < 0.012 White Blood Count 6.0 Red Blood Count 2.85 L Hemoglobin 7.9 L Hematocrit 24.6 L Mean Corpuscular 86.3 Volume Mean Corpuscular 27.7 L Hemoglobin Mean Corpuscular 32.1 Hemoglobin Concent Red Cell 13.5 Distribution Width Platelet Count 319 Mean Platelet Volume 10.4 Immature 0.700 H Granulocytes % Neutrophils % 78.7 H Lymphocytes % 8.8 L Monocytes % 8.5 Eosinophils % 3.0 Basophils % 0.3 Nucleated Red Blood 0.0 Cells % Immature 0.040 H Granulocytes # Neutrophils # 4.8 Lymphocytes # 0.5 L Monocytes # 0.5 Eosinophils # 0.2 Basophils # 0.0 Nucleated Red Blood 0.0 Cells # Sodium Level 138 Potassium Level 3.4 L Chloride Level 107 Carbon Dioxide Level 23 Anion Gap 8 Blood Urea Nitrogen 14 Creatinine 0.69 Est Glomerular > 60 Filtrat Rate mL/min Glucose Level 105 Calcium Level 8.6 Phosphorus Level 4.1 Magnesium Level 1.8 Medications Medication Current Medications Alteplase, Recombinant (Cathflo (Activase)) 2 mg MAY REPEAT X1 PRN CATHETER IF CATHETER REMAINS OCCULUDED Last administered on 03/09/19at 02:30; Admin Dose 2 MG ; Start 03/09/19 at 00:30 Vancomycin HCl (Vanco Iv Per Pharmacy) VANCOMYCIN PER PHARMACY PER PROTOCOL XX ; Start 03/09/19 at 06:00 Acetaminophen (Tylenol Tab) 650 mg Q4H PRN PO MILD PAIN(1-3)OR ELEVATED TEMP Last administered on 03/11/19at 20:41; Admin Dose 650 MG; Start 03/09/19 at 06:00 Acetaminophen/ Hydrocodone Bitart ([place] (5/325)) 1 tab Q4H PRN PO MODERATE PAIN LEVEL 4-6; Start 03/09/19 at 06:00 Hydromorphone HCl (Dilaudid) 0.5 mg Q3H PRN IV SEVERE PAIN LEVEL 7-10; Start 03/09/19 at 06:00 Insulin Aspart (Novolog Insulin Pen) NOVOLOG *MILD* ALGORI... Q6 SC Last administered on 03/11/19at 23:56; Admin Dose 1 UNIT; Start 03/09/19 at 06:00 Piperacillin Sod/ Tazobactam Sod 100 ml @ 200 mls/hr Q6 IVPB Last administered on 03/12/19at 05:27; Admin Dose 200 MLS/HR; Start 03/09/19 at 08:00 Miscellaneous Information 1 ea NOTE XX ; Start 03/09/19 at 06:30 Glucose (Glutose) 15 gm Q15M PRN PO DECREASED GLUCOSE; Start 03/09/19 at 06:30 Glucose (Glutose) 22.5 gm Q15M PRN PO DECREASED GLUCOSE; Start 03/09/19 at 06:30 Dextrose (D50w Syringe) 25 ml Q15M PRN IV DECREASED GLUCOSE; Start 03/09/19 at 06:30 Dextrose (D50w Syringe) 50 ml Q15M PRN IV DECREASED GLUCOSE; Start 03/09/19 at 06:30 Glucagon (Glucagen) 1 mg Q15M PRN IM DECREASED GLUCOSE; Start 03/09/19 at 06:30 Glucose (Glutose) 15 gm Q15M PRN BUCCAL DECREASED GLUCOSE; Start 03/09/19 at 06:30 Vancomycin HCl 1.25 gm/Sodium Chloride 250 ml @ 83.333 mls/ hr Q12H IVPB Last administered on 03/12/19at 00:55; Admin Dose 83.333 MLS/HR; Start 03/09/19 at 13:00 Miscellaneous Information (Pending [facility] Order For Wound Care) This patient mora... PRN PRN XX WOUND CARE; Start 03/09/19 at 12:00 Total Parenteral Nutrition 1,000 ml @ 80 mls/hr [id number] IV Last administered on 03/11/19at 21:29; Admin Dose 80 MLS/HR; Start 03/09/19 at 18:30 Enoxaparin Sodium (Lovenox) 40 mg DAILY SC Last administered on 03/12/19at 09:22; Admin Dose 40 MG; Start 03/12/19 at 09:00 Potassium Chloride 100 ml @ 50 mls/hr ONCE ONCE IVPB Last administered on 03/12/19at 09:18; Admin Dose 50 MLS/HR; Start 03/12/19 at 10:00; Stop 03/12/19 at 11:59 FRANC HARRIS March 12, 2019 11:04
--- NOTE | 2019-03-12 12:15 | CONS ---
Consult Date/Type/Reason Admit Date/Time March 09, 2019 at 03:20 Initial Consult Date 03/10/19 Date/Time of Note DATE: 03/12/19 TIME: 12:13 Subjective No acute events - pt comfortable - no Cp now. ROS: No fever, no chills, no nausea, no vomiting, no diarrhea/constipation No recent weight changes No chest pain, no PND, no orthopnea - mild SOB No dizziness, blurred vision No thirst, no heat or cold intolerance Objective Vitals Vital Signs Date Temp Pulse Resp B/P (MAP) Pulse Ox O2 O2 Flow FiO2 Time Delivery Rate 03/12/19 100.0 91 17 142/73 94 Room Air 07:58 (96) Intake and Output 03/11/19 03/11/19 03/12/19 1515:00 23:00 07:00 IntakeIntake Total 780 ml 1520 ml 1050 ml OutputOutput Total 450 ml 1005 ml 2051 ml BalanceBalance 330 ml 515 ml -1001 ml Exam General: WN/WD/NAD, AOx 3 HEENT: Unicetric/atraumatic/EOMI (follows commands) NECK: JVD elevated, no thyromegaly Lymph: no lymphadenopathy HEART: regular with no S3, II/ systolic murmur at apex LUNGS: Coarse sounds ABD: soft, NT, ND, +BS - post op changes : Intact Neuro: non focal SKIN: chronic changes EXT: trace edema Results/Medications Result Diagram: 03/12/19 0546 03/12/19 0546 Results 24 hrs Laboratory Tests Test 03/11/19 12:47 03/11/19 17:33 03/11/19 18:38 03/11/19 23:51 Body Fluid Type Body Fluid 607 Lactate Dehydrogenas e Total Protein 4.3 #L Bedside Glucose 161 163 Troponin I < 0.012 Test 03/12/19 00:51 03/12/19 05:35 03/12/19 05:46 Troponin I < 0.012 < 0.012 Bedside Glucose 110 White Blood Count 6.0 Red Blood Count 2.85 L Hemoglobin 7.9 L Hematocrit 24.6 L Mean Corpuscular 86.3 Volume Mean Corpuscular 27.7 L Hemoglobin Mean Corpuscular 32.1 Hemoglobin Concent Red Cell 13.5 Distribution Width Platelet Count 319 Mean Platelet Volume 10.4 Immature 0.700 H Granulocytes % Neutrophils % 78.7 H Lymphocytes % 8.8 L Monocytes % 8.5 Eosinophils % 3.0 Basophils % 0.3 Nucleated Red Blood 0.0 Cells % Immature 0.040 H Granulocytes # Neutrophils # 4.8 Lymphocytes # 0.5 L Monocytes # 0.5 Eosinophils # 0.2 Basophils # 0.0 Nucleated Red Blood 0.0 Cells # Sodium Level 138 Potassium Level 3.4 L Chloride Level 107 Carbon Dioxide Level 23 Anion Gap 8 Blood Urea Nitrogen 14 Creatinine 0.69 Est Glomerular > 60 Filtrat Rate mL/min Glucose Level 105 Calcium Level 8.6 Phosphorus Level 4.1 Magnesium Level 1.8 Home Meds Active Scripts Lactose-Reduced Food (Ensure Original) 237 Ml Liquid, 237 ML PO AC A, #10 Prov:ODELL PACHECO 02/28/19 Diltiazem Hcl* (Cardizem CD*) 120 Mg Cap.sr.24h, 120 MG PO BID for 30 Days Prov:ODELL PACHECO 02/28/19 Atenolol* (Atenolol*) 50 Mg Tablet, 50 MG PO BID for 30 Days, TAB Prov:ODELL PACHECO 02/28/19 Reported Medications Apixaban* (Eliquis*) 5 Mg Tablet, 5 MG PO BID, TAB 11/02/18 Atorvastatin Calcium* (Atorvastatin Calcium*) 20 Mg Tablet, 20 MG PO QHS, #30 TAB 01/07/18 Discontinued Scripts Loperamide Hcl* (Loperamide Hcl*) 2 Mg Cap, 4 MG PO QID for 7 Days, CAP Prov:ODELL PACHECO 02/28/19 Medications Current Medications Alteplase, Recombinant (Cathflo (Activase)) 2 mg MAY REPEAT X1 PRN CATHETER IF CATHETER REMAINS OCCULUDED Last administered on 03/09/19at 02:30; Admin Dose 2 MG; Start 03/09/19 at 00:30 Vancomycin HCl (Vanco Iv Per Pharmacy) VANCOMYCIN PER PHARMACY PER PROTOCOL XX ; Start 03/09/19 at 06:00 Acetaminophen (Tylenol Tab) 650 mg Q4H PRN PO MILD PAIN(1-3)OR ELEVATED TEMP Last administered on 03/11/19at 20:41; Admin Dose 650 MG; Start 03/09/19 at 06:00 Acetaminophen/ Hydrocodone Bitart ([place] (5/325)) 1 tab Q4H PRN PO MODERATE PAIN LEVEL 4-6; Start 03/09/19 at 06:00 Hydromorphone HCl (Dilaudid) 0.5 mg Q3H PRN IV SEVERE PAIN LEVEL 7-10; Start 03/09/19 at 06:00 Insulin Aspart (Novolog Insulin Pen) NOVOLOG *MILD* ALGORI... Q6 SC Last administered on 03/11/19at 23:56; Admin Dose 1 UNIT; Start 03/09/19 at 06:00 Piperacillin Sod/ Tazobactam Sod 100 ml @ 200 mls/hr Q6 IVPB Last administered on 03/12/19at 05:27; Admin Dose 200 MLS/HR; Start 03/09/19 at 08:00 Miscellaneous Information 1 ea NOTE XX ; Start 03/09/19 at 06:30 Glucose (Glutose) 15 gm Q15M PRN PO DECREASED GLUCOSE; Start 03/09/19 at 06:30 Glucose (Glutose) 22.5 gm Q15M PRN PO DECREASED GLUCOSE; Start 03/09/19 at 06:30 Dextrose (D50w Syringe) 25 ml Q15M PRN IV DECREASED GLUCOSE; Start 03/09/19 at 06:30 Dextrose (D50w Syringe) 50 ml Q15M PRN IV DECREASED GLUCOSE; Start 03/09/19 at 06:30 Glucagon (Glucagen) 1 mg Q15M PRN IM DECREASED GLUCOSE; Start 03/09/19 at 06:30 Glucose (Glutose) 15 gm Q15M PRN BUCCAL DECREASED GLUCOSE; Start 03/09/19 at 06:30 Vancomycin HCl 1.25 gm/Sodium Chloride 250 ml @ 83.333 mls/ hr Q12H IVPB Last administered on 03/12/19at 00:55; Admin Dose 83.333 MLS/HR; Start 03/09/19 at 13:00 Miscellaneous Information (Pending [facility] Order For Wound Care) This patient mora... PRN PRN XX WOUND CARE; Start 03/09/19 at 12:00 Total Parenteral Nutrition 1,000 ml @ 80 mls/hr [id number] IV Last administered on 03/11/19at 21:29; Admin Dose 80 MLS/HR; Start 03/09/19 at 18:30 Enoxaparin Sodium (Lovenox) 40 mg DAILY SC Last administered on 03/12/19at 09:22; Admin Dose 40 MG; Start 03/12/19 at 09:00 Assessment/Plan Hospital Course (Demo Recall) 1. Chest pain, assess for acute coronary syndrome with chest pain being pleuritic at this time, but patient does have an EKG analysis for acute coronary syndrome- r/o SD - doubt ischemia. 2. Abnormal echocardiogram with nonspecific ST-T abnormalities, assess for acute coronary syndrome. 3. History of congestive heart failure, diastolic, by most recent echo with increased BNP at this time. Thus, possibly acute on chronic. Better now - stable fluid status. 4. Right pleural effusion, status post thoracentesis - improved symptoms now. 5. Colon CA status post colectomy with colostomy complicated by previous abscess requiring drainage. Defer to surgical team,. 6. Diabetes mellitus. 7. Fevers. 8. Urinary tract infection. SUSSY ANTHONY MD March 12, 2019 12:15
[2019-03-12 14:00] VITALS: BP 154/85; PULSE 99; RESP 18
--- NOTE | 2019-03-12 17:44 | CONS ---
DATE OF ADMISSION: 03/09/2019 DATE OF CONSULTATION: 03/12/2019 INDICATION: This is a 59-year-old male who has a complicated medical history. He underwent colon ca ncer surgery with end colostomy. This was performed last year. He underwent chemotherapy treatment. He presents for reanastomosis. He underwent an attempted reanastomosis with leak. He developed an astomotic leak and abscess. He had a percutaneous drainage placed and multiple drains and a loop ile ostomy for diversion. He was also placed on PICC line for additional nutritional supplementation. Mary laureano was sent home. He presents today with an issue of his malfunctioning PICC line and fevers. Evalua tion showed a right pleural effusion which was drained with thoracentesis with improvement. Currentl y, he is doing well and, after PICC line management, can be discharged from a surgical standpoint. H is ileostomy is functioning appropriately. After his infection has resolved, he will be reevaluated for his anastomotic leak and also for reversal of his loop ileostomy. General surgery will continue to follow as needed. Dictated By: JACOB FERNANDEZ MD SB/MARIAN Conf#: [id number] DID#: [id number] CC: ANDREY ZHENG MD;*EndCC*
--- NOTE | 2019-03-12 18:23 | PN ---
Date/Time of Note Date/Time of Note DATE: 03/12/19 TIME: 18:14 Assessment/Plan VTE Prophylaxis Risk score (from Ns)>0 risk: 9 SCD applied (from Nsg): Yes Pharmacological prophylaxis: LMWH Lines/Catheters IV Catheter Type (from Nrsg): PICC Line Central line still needed: Yes Urinary Cath still in place: No Assessment/Plan Hospital Course Patient continues to have low-grade fever currently on vancomycin and Zosyn, complains of intermittent nausea and poor appetite, CT of the abdomen and pelvis noted. Assessment/Plan -Sepsis secondary to pneumonia, continue IV hydration, broad-spectrum antibiotics. Dr. Vázquez is following in infection disease consultation. -Right lower lobe pneumonia -Right lung pleural effusion, status post ultrasound-guided guided thoracentesis on 03/11/2019. Dr. Cardona is following in pulmonology consultation -Left upper extremity PICC line malfunction, resolved, venous Doppler is negative for DVT. -Chest pain with abnormal EKG, troponin is negative x3. Dr. Alejandro is following in cardiology consultation. -Stage III sigmoid colon cancer, status post surgery and chemo in 2018. -Chronic diastolic CHF -Paroxysmal atrial fibrillation, continue Lovenox. -Protein calorie malnutrition, continue TPN due to dehydration and malabsorption due to large ileostomy output. -History of anastomotic leak and intra-abdominal abscess, Status post laparotomy, washout of the peritoneal cavity, placement of a diverting loop ileostomy in right lower quadrant for protection of the anastomosis in the colorectal area on 02/11/[address] Art. Patient was on Levaquin and Flagyl at home. CT of the abdomen and pelvis on 03/11/2019 with near complete resolution of abscess. -History of open Reagan reversal and colorectal low pelvic anastomosis, segmental partial colectomy, and open incarcerated incisional and parastomal h ernia repairs with mesh by Dr. Art on 01/21/2019. -Hx of Obstructive sleep apnea Further recommendations based on clinical course. Plan of care discussed with Dr. Fox. Result Diagram: 03/12/19 0546 03/12/19 0546 Results 24hrs Laboratory Tests Test 03/11/19 18:38 03/11/19 23:51 03/12/19 00:51 03/12/19 05:35 Troponin I < 0.012 < 0.012 Bedside Glucose 163 110 Test 03/12/19 05:46 03/12/19 12:25 White Blood Count 6.0 Red Blood Count 2.85 L Hemoglobin 7.9 L Hematocrit 24.6 L Mean Corpuscular 86.3 Volume Mean Corpuscular 27.7 L Hemoglobin Mean Corpuscular 32.1 Hemoglobin Concent Red Cell 13.5 Distribution Width Platelet Count 319 Mean Platelet Volume 10.4 Immature 0.700 H Granulocytes % Neutrophils % 78.7 H Lymphocytes % 8.8 L Monocytes % 8.5 Eosinophils % 3.0 Basophils % 0.3 Nucleated Red Blood 0.0 Cells % Immature 0.040 H Granulocytes # Neutrophils # 4.8 Lymphocytes # 0.5 L Monocytes # 0.5 Eosinophils # 0.2 Basophils # 0.0 Nucleated Red Blood 0.0 Cells # Sodium Level 138 Potassium Level 3.4 L Chloride Level 107 Carbon Dioxide Level 23 Anion Gap 8 Blood Urea Nitrogen 14 Creatinine 0.69 Est Glomerular > 60 Filtrat Rate mL/min Glucose Level 105 Calcium Level 8.6 Phosphorus Level 4.1 Magnesium Level 1.8 Troponin I < 0.012 Bedside Glucose 144 Exam/Review of Systems Exam Vitals Vital Signs Date Temp Pulse Resp B/P (MAP) Pulse Ox O2 O2 Flow FiO2 Time Delivery Rate 03/12/19 99.1 99 18 154/85 96 Room Air 14:00 (108) Intake and Output 03/11/19 03/11/19 03/12/19 1515:00 23:00 07:00 IntakeIntake Total 780 ml 1520 ml 1050 ml OutputOutput Total 450 ml 1005 ml 2051 ml BalanceBalance 330 ml 515 ml -1001 ml Exam Constitutional: alert, oriented Respiratory: diminished breath sounds Cardiovascular: nl pulses Gastrointestinal: soft, non-tender, other (Abdominal surgical incision with dressing, left lower quadrant drain) Musculoskeletal: nl extremities to inspection Extremities: normal pulses Neurological: nl mental status Skin: nl turgor Results Results 24hrs Laboratory Tests Test 03/11/19 18:38 03/11/19 23:51 03/12/19 00:51 03/12/19 05:35 Troponin I < 0.012 < 0.012 Bedside Glucose 163 110 Test 03/12/19 05:46 03/12/19 12:25 White Blood Count 6.0 Red Blood Count 2.85 L Hemoglobin 7.9 L Hematocrit 24.6 L Mean Corpuscular 86.3 Volume Mean Corpuscular 27.7 L Hemoglobin Mean Corpuscular 32.1 Hemoglobin Concent Red Cell 13.5 Distribution Width Platelet Count 319 Mean Platelet Volume 10.4 Immature 0.700 H Granulocytes % Neutrophils % 78.7 H Lymphocytes % 8.8 L Monocytes % 8.5 Eosinophils % 3.0 Basophils % 0.3 Nucleated Red Blood 0.0 Cells % Immature 0.040 H Granulocytes # Neutrophils # 4.8 Lymphocytes # 0.5 L Monocytes # 0.5 Eosinophils # 0.2 Basophils # 0.0 Nucleated Red Blood 0.0 Cells # Sodium Level 138 Potassium Level 3.4 L Chloride Level 107 Carbon Dioxide Level 23 Anion Gap 8 Blood Urea Nitrogen 14 Creatinine 0.69 Est Glomerular > 60 Filtrat Rate mL/min Glucose Level 105 Calcium Level 8.6 Phosphorus Level 4.1 Magnesium Level 1.8 Troponin I < 0.012 Bedside Glucose 144 Medications Medication Current Medications Alteplase, Recombinant (Cathflo (Activase)) 2 mg MAY REPEAT X1 PRN CATHETER IF CATHETER REMAINS OCCULUDED Last administered on 03/09/19at 02:30; Admin Dose 2 MG; Start 03/09/19 at 00:30 Vancomycin HCl (Vanco Iv Per Pharmacy) VANCOMYCIN PER PHARMACY PER PROTOCOL XX ; Start 03/09/19 at 06:00 Acetaminophen (Tylenol Tab) 650 mg Q4H PRN PO MILD PAIN(1-3)OR ELEVATED TEMP Last administered on 03/11/19at 20:41; Admin Dose 650 MG; Start 03/09/19 at 06:00 Acetaminophen/ Hydrocodone Bitart ([place] (5/325)) 1 tab Q4H PRN PO MODERATE PAIN LEVEL 4-6; Start 03/09/19 at 06:00 Hydromorphone HCl (Dilaudid) 0.5 mg Q3H PRN IV SEVERE PAIN LEVEL 7-10; Start 03/09/19 at 06:00 Insulin Aspart (Novolog Insulin Pen) NOVOLOG *MILD* ALGORI... Q6 SC Last administered on 03/12/19 12:29; Admin Dose 1 UNIT; Start 03/09/19 at 06:00 Piperacillin Sod/ Tazobactam Sod 100 ml @ 200 mls/hr Q6 IVPB Last administered on 03/12/19 12:27; Admin Dose 200 MLS/HR; Start 03/09/19 at 08:00 Miscellaneous Information 1 ea NOTE XX ; Start 03/09/19 at 06:30 Glucose (Glutose) 15 gm Q15M PRN PO DECREASED GLUCOSE; Start 03/09/19 at 06:30 Glucose (Glutose) 22.5 gm Q15M PRN PO DECREASED GLUCOSE; Start 03/09/19 at 06:30 Dextrose (D50w Syringe) 25 ml Q15M PRN IV DECREASED GLUCOSE; Start 03/09/19 at 06:30 Dextrose (D50w Syringe) 50 ml Q15M PRN IV DECREASED GLUCOSE; Start 03/09/19 at 06:30 Glucagon (Glucagen) 1 mg Q15M PRN IM DECREASED GLUCOSE; Start 03/09/19 at 06:30 Glucose (Glutose) 15 gm Q15M PRN BUCCAL DECREASED GLUCOSE; Start 03/09/19 at 06:30 Vancomycin HCl 1.25 gm/Sodium Chloride 250 ml @ 83.333 mls/ hr Q12H IVPB Last administered on 03/12/19at 13:16; Admin Dose 83.333 MLS/HR; Start 03/09/19 at 13:00 Miscellaneous Information (Pending Santyl Order For Wound Care) This patient mora... PRN PRN XX WOUND CARE; Start 03/09/19 at 12:00 Total Parenteral Nutrition 1,000 ml @ 80 mls/hr [id number] IV Last administered on 03/12/19at 14:54; Admin Dose 80 MLS/HR; Start 03/09/19 at 18:30 Enoxaparin Sodium (Lovenox) 40 mg DAILY SC Last administered on 03/12/19at 09:22; Admin Dose 40 MG; Start 03/12/19 at 09:00 ODELL PACHECO March 12, 2019 18:23
--- NOTE | 2019-03-12 19:18 | CONS ---
Assessment/Plan Assessment/Plan Hospital Course (Demo Recall) # sepsis, respiratory - persistent RLL infiltrate with complex pleural effusion - recurrent pleural effusion, follow up chest US on 02/17/2019 showed small R sided effusion. CXR 03/09/19 showed moderate R sided pleural effusion - s/p repeat R sided thoracentesis, exudative process as LDH was 607 - h/o R pleural effusion, exudative process, parapneumonic effusion LDH 1601 protein 3.2, no e/o malignancy on cytology - h/o R sided thoracentesis on 02/05/2019 - possibly residual intra-abdominal infection as CT on 03/11/2019 showed residual fat stranding throughout the abdomen and pelvis - h/o sepsis due to complicated intra-abdominal infection and pneumonia - VIJAY # GI, onc - residual fat stranding throughout the abdomen and pelvis on CT 03/11/2019 - s/p ex lap, washout of abdominal abscess, CLEVE, diverting loop ileostomy on 02/11/2019 - s/p open Reagan reversal and colorectal low pelvic anastomosis, segmental partial colectomy, and open incarcerated incisional and parastomal hernia repairs with mesh by Dr. Art on 01/21/2019 - h/o thrush, resolved - h/o follow up CT on 02/04/2019 did not identify definite point of leak--> anastomotic leak was identified on gastograffin - h/o CT guided drainage of abscess in LLQ on 02/01/2019 - h/o abdominal wound culture 01/30/19 and abscess culture 01/31/19 grew pseudomonas, joseline albicans and glabrata - h/o colostomy reversal - h/o stage III sigmoid colon cancer, status post prior colectomy/colostomy and chemo in 2017 # renal, cardiovascular - h/o recurrent acute kidney injury on chronic kidney disease - h/o acute on chronic diastolic CHF, improved - h/o atrial fibrillation with RVR, converted to SR - h/o hypertension - h/o left upper extremity DVT - h/o superficial thrombus in R cephalic vein in the forearm and in L cephalic vein in the antecubital fossa as visualized on NOY 02/05/2019 # other conditions - h/o R conjunctivitis, resolved after neomycin eye drop x 7 days - Of note: Pt previously took meropenem (01/30/2019-02/03/2019), metronidazole (02/04/2019-02/16/2019) and cefepime (02/04/2019-02/18/2019); Flagyl (02/24/19 - 03/08/19) and Levaquin ( - 03/08/19); s/p fluconazole Recommendations: - pending results: cultures of blood and pleural effusion - ordered: aerobic and anaerobic cultures of intra-abdominal fluid in the catheter (if sufficient amount is collected) - continue vanco/zosyn (03/09/19 - ) empirically management d/w Pt and his RN Henry Consultation Date/Type/Reason Admit Date/Time March 09, 2019 at 03:20 Initial Consult Date 03/10/19 Type of Consult ID Requesting Provider: ANDREY ZHENG MD Date/Time of Note DATE: 03/12/19 TIME: 19:10 24 HR Interval Summary Free Text/Dictation walked with a walker Constitutional: improved Detailed Summary Eyes: no complaints ENT: no complaints Respiratory: no complaints Cardiovascular: no complaints Gastrointestinal: no complaints Genitourinary: other (eating very little) Musculoskeletal: no complaints Skin: no complaints Neurologic: no complaints Exam/Review of Systems Exam Vitals Vital Signs Date Temp Pulse Resp B/P (MAP) Pulse Ox O2 O2 Flow FiO2 Time Delivery Rate 03/12/19 99.1 99 18 154/85 96 Room Air 14:00 (108) Intake and Output 03/11/19 03/11/19 03/12/19 1515:00 23:00 07:00 IntakeIntake Total 780 ml 1520 ml 1050 ml OutputOutput Total 450 ml 1005 ml 2051 ml BalanceBalance 330 ml 515 ml -1001 ml Constitutional: alert, oriented, well developed Psych: no complaints, nl mood/affect Head: normocephalic, atraumatic Eyes: nl conjunctiva, EOMI, nl lids ENMT: nl external ears & nose, nl lips & teeth, nl nasal mucosa & septum Neck: supple, non-tender Respiratory: clear to auscultation, normal air movement Cardiovascular: regular rate and rhythm, nl pulses Gastrointestinal: soft, non-tender, surgical scars, other (+colostomy bag in RLQ, external drain in RLQ); No distended Musculoskeletal: nl extremities to inspection Extremities: normal pulses Neurological: DATABASE ARCHITECT II-XII intact, nl mental status, nl speech Skin: nl turgor; No rash or lesions Results Result Diagram: 03/12/19 0546 03/12/19 0546 Results 24hrs Laboratory Tests Test 03/11/19 23:51 03/12/19 00:51 03/12/19 05:35 03/12/19 05:46 Bedside Glucose 163 110 Troponin I < 0.012 < 0.012 White Blood Count 6.0 Red Blood Count 2.85 L Hemoglobin 7.9 L Hematocrit 24.6 L Mean Corpuscular 86.3 Volume Mean Corpuscular 27.7 L Hemoglobin Mean Corpuscular 32.1 Hemoglobin Concent Red Cell 13.5 Distribution Width Platelet Count 319 Mean Platelet Volume 10.4 Immature 0.700 H Granulocytes % Neutrophils % 78.7 H Lymphocytes % 8.8 L Monocytes % 8.5 Eosinophils % 3.0 Basophils % 0.3 Nucleated Red Blood 0.0 Cells % Immature 0.040 H Granulocytes # Neutrophils # 4.8 Lymphocytes # 0.5 L Monocytes # 0.5 Eosinophils # 0.2 Basophils # 0.0 Nucleated Red Blood 0.0 Cells # Sodium Level 138 Potassium Level 3.4 L Chloride Level 107 Carbon Dioxide Level 23 Anion Gap 8 Blood Urea Nitrogen 14 Creatinine 0.69 Est Glomerular > 60 Filtrat Rate mL/min Glucose Level 105 Calcium Level 8.6 Phosphorus Level 4.1 Magnesium Level 1.8 Test 03/12/19 12:25 03/12/19 18:28 Bedside Glucose 144 138 Medications Medication Current Medications Alteplase, Recombinant (Cathflo (Activase)) 2 mg MAY REPEAT X1 PRN CATHETER IF CATHETER REMAINS OCCULUDED Last administered on 03/09/19at 02:30; Admin Dose 2 MG; Start 03/09/19 at 00:30 Vancomycin HCl (Vanco Iv Per Pharmacy) VANCOMYCIN PER PHARMACY PER PROTOCOL XX ; Start 03/09/19 at 06:00 Acetaminophen (Tylenol Tab) 650 mg Q4H PRN PO MILD PAIN(1-3)OR ELEVATED TEMP Last administered on 03/11/19at 20:41; Admin Dose 650 MG; Start 03/09/19 at 06:00 Acetaminophen/ Hydrocodone Bitart ([place] (5/325)) 1 tab Q4H PRN PO MODERATE PAIN LEVEL 4-6; Start 03/09/19 at 06:00 Hydromorphone HCl (Dilaudid) 0.5 mg Q3H PRN IV SEVERE PAIN LEVEL 7-10; Start 03/09/19 at 06:00 Insulin Aspart (Novolog Insulin Pen) NOVOLOG *MILD* ALGORI... Q6 SC Last administered on 03/12/19at 12:29; Admin Dose 1 UNIT; Start 03/09/19 at 06:00 Piperacillin Sod/ Tazobactam Sod 100 ml @ 200 mls/hr Q6 IVPB Last administered on 03/12/19at 18:29; Admin Dose 200 MLS/HR; Start 03/09/19 at 08:00 Miscellaneous Information 1 ea NOTE XX ; Start 03/09/19 at 06:30 Glucose (Glutose) 15 gm Q15M PRN PO DECREASED GLUCOSE; Start 03/09/19 at 06:30 Glucose (Glutose) 22.5 gm Q15M PRN PO DECREASED GLUCOSE; Start 03/09/19 at 06:30 Dextrose (D50w Syringe) 25 ml Q15M PRN IV DECREASED GLUCOSE; Start 03/09/19 at 06:30 Dextrose (D50w Syringe) 50 ml Q15M PRN IV DECREASED GLUCOSE; Start 03/09/19 at 06:30 Glucagon (Glucagen) 1 mg Q15M PRN IM DECREASED GLUCOSE; Start 03/09/19 at 06:30 Glucose (Glutose) 15 gm Q15M PRN BUCCAL DECREASED GLUCOSE; Start 03/09/19 at 06:30 Vancomycin HCl 1.25 gm/Sodium Chloride 250 ml @ 83.333 mls/ hr Q12H IVPB Last administered on 03/12/19at 13:16; Admin Dose 83.333 MLS/HR; Start 03/09/19 at 13:00 Miscellaneous Information (Pending Santyl Order For Wound Care) This patient mora... PRN PRN XX WOUND CARE; Start 03/09/19 at 12:00 Total Parenteral Nutrition 1,000 ml @ 80 mls/hr [id number] IV Last administered on 03/12/19at 14:54; Admin Dose 80 MLS/HR; Start 03/09/19 at 18:30 Enoxaparin Sodium (Lovenox) 40 mg DAILY SC Last administered on 03/12/19at 09:22; Admin Dose 40 MG; Start 03/12/19 at 09:00 MERCED ESCUDERO M.D. March 12, 2019 19:18
[2019-03-12 20:00] VITALS: BP 159/83; PULSE 89; RESP 18
[2019-03-13] MEDS: VANCOMYCIN HCL 1.25 GM in SOD CHLORIDE 0.9% 250 ML IVPB SCH ×2 (01:23→12:33)
[2019-03-13] MEDS: ALTEPLASE (CATHFLO) 2 MG INJ CATHETER PRN ×2 (01:36→04:47)
[2019-03-13 02:00] VITALS: BP 153/81; PULSE 98; RESP 17
[2019-03-13] MEDS: TPN 1,000 ML IV SCH ×3 (03:06→16:40)
[2019-03-13] MEDS: PIPER-TAZO 3.375 GM IV (PMX) 100 ML IVPB SCH ×3 (05:37→17:35)
[2019-03-13] MEDS: INSULIN ASPART [NOVOLOG] 3 ML PEN SC SCH ×3 (05:49→17:35)
[2019-03-13 08:02] VITALS: BP 152/85; PULSE 84; RESP 16
[2019-03-13] MEDS: ENOXAPARIN 40 MG/0.4 ML SYG SC SCH (08:57)
--- NOTE | 2019-03-13 09:01 | RADRPT ---
Vent Rate: 93 bpm RR Interval: 648 msec ND Interval: 183 msec QRS Duration: 79 msec QT Interval: 353 msec QTC Interval: 439 msec P-R-T Nabb: 39 - 58 - 35 degrees Sinus rhythm...normal Electronically Signed By: Adarsh Pizarro
--- NOTE | 2019-03-13 09:39 | CONS ---
Assessment/Plan Assessment/Plan Assessment/Plan (Daily) Assessment and recommendations; next 1. Patient admitted for shortness of breath with hypoxemia due to right lower lobe pneumonia, status post thoracentesis with marked medical improvement. Likely parapneumonic in etiology. However cytology on the fluid is pending. 2. Recent history of colon cancer status post colostomy. 3. Postop ileus, patient maintained on TPN. Continue current supportive care. Further recommendations once fluid cytology is obtained. Obtain follow-up chest x-ray. Consultation Date/Type/Reason Admit Date/Time March 09, 2019 at 03:20 Initial Consult Date 03/10/19 Type of Consult Pulmonary Patient is a 59-year-old gentleman who was admitted on the of this month with complaints of cough. Upon evaluation a chest x-ray was done which is showing a right pleural effusion with possibly right lower lobe pneumonia. Patient denies any chest pain, fever, any sputum production or hemoptysis. At the time I saw him in the room, patient appeared very comfortable on room air. And did not appear to be in any distress whatsoever. Patient denies any recent nausea vomiting. Past medical history; 1. Recently diagnosed colon cancer status post resection, status post chemotherapy. 2. Colostomy. 3. Patient maintained on TPN. 4. History of paroxysmal atrial fibrillation. 5. Upper extremity DVT history. 6. Hypertension. 7. Anemia. 8. History of recent right thoracentesis as well. About a liter of fluid was removed few months ago. Medications; reviewed. Allergies; none. Social history; patient is a former smoker. Family history; noncontributory. Patient does have a supportive family. 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 Currently disabled. Review of systems; denies any headache, visual changes, dysphagia, chest pain, angina, wheezing, complains of scant cough without any sputum production or hemoptysis. Denies any fever or chills. Denies any nausea vomiting. Any edema. Patient has lost some weight recently. Denies any skin changes or any new arthritis symptoms. General exam; elderly male, awake alert, currently no distress. Requesting Provider: ANDREY ZHENG MD Date/Time of Note DATE: 03/13/19 TIME: 09:36 24 HR Interval Summary Free Text/Dictation Patient's condition is stable. Remains awake and alert. Denies any shortness of breath, chest pain, coughing, wheezing, sputum production. Denies any abdominal pain, nausea vomiting. General exam; elderly male, sitting comfortably on bed. Currently no distress. Awake and alert. Exam/Review of Systems Exam Vitals Vital Signs Date Temp Pulse Resp B/P (MAP) Pulse Ox O2 O2 Flow FiO2 Time Delivery Rate 03/13/19 99.1 84 16 152/85 95 08:02 (107) 03/12/19 Room Air 14:00 Intake and Output 03/12/19 03/12/19 03/13/19 1515:00 23:00 07:00 IntakeIntake Total 600 ml 1710 ml 1450 ml OutputOutput Total 350 ml 2550 ml 1830 ml BalanceBalance 250 ml -840 ml -380 ml Exam H EENT exam; supple neck, no JVD. No lymphadenopathy. Midline trachea. No thyromegaly. Patient has fair dentition. Chest exam; clear to auscultation. S1-S2 audible, no murmurs. Regular rhythm. Abdomen exam; soft, colostomy in place. Midline dressing in place. Bowel sounds audible. Extremity exam; trace edema. [employer] exam; no focal deficit. Results Result Diagram: 03/13/19 0444 03/13/19 0444 Results 24hrs Laboratory Tests Test 03/12/19 12:25 03/12/19 18:28 03/12/19 23:44 03/13/19 04:44 Bedside Glucose 144 138 144 White Blood Count 5.0 Red Blood Count 2.75 L Hemoglobin 7.5 L Hematocrit 23.7 L Mean Corpuscular 86.2 Volume Mean Corpuscular 27.3 L Hemoglobin Mean Corpuscular 31.6 L Hemoglobin Concent Red Cell 13.7 Distribution Width Platelet Count 316 Mean Platelet Volume 10.7 H Immature 0.600 H Granulocytes % Neutrophils % 77.7 H Lymphocytes % 9.3 L Monocytes % 8.2 Eosinophils % 3.6 Basophils % 0.6 Nucleated Red Blood 0.0 Cells % Immature 0.030 Granulocytes # Neutrophils # 3.9 Lymphocytes # 0.5 L Monocytes # 0.4 Eosinophils # 0.2 Basophils # 0.0 Nucleated Red Blood 0.0 Cells # Sodium Level 137 Potassium Level 3.7 Chloride Level 107 Carbon Dioxide Level 24 Anion Gap 6 Blood Urea Nitrogen 13 Creatinine 0.65 Est Glomerular > 60 Filtrat Rate mL/min Glucose Level 154 Calcium Level 8.3 L Phosphorus Level 3.8 Magnesium Level 1.9 Test 03/13/19 05:45 Bedside Glucose 150 Medications Medication Current Medications Vancomycin HCl (Vanco Iv Per Pharmacy) VANCOMYCIN PER PHARMACY PER PROTOCOL XX ; Start 03/09/19 at 06:00 Acetaminophen (Tylenol Tab) 650 mg Q4H PRN PO MILD PAIN(1-3)OR ELEVATED TEMP Last administered on 03/11/19at 20:41; Admin Dose 650 MG; Start 03/09/19 at 06:00 Acetaminophen/ Hydrocodone Bitart ([place] (5/325)) 1 tab Q4H PRN PO MODERATE PAIN LEVEL 4-6; Start 03/09/19 at 06:00 Hydromorphone HCl (Dilaudid) 0.5 mg Q3H PRN IV SEVERE PAIN LEVEL 7-10; Start 03/09/19 at 06:00 Insulin Aspart (Novolog Insulin Pen) NOVOLOG *MILD* ALGORI... Q6 SC Last administered on 03/13/19at 05:49; Admin Dose 1 UNIT; Start 03/09/19 at 06:00 Piperacillin Sod/ Tazobactam Sod 100 ml @ 200 mls/hr Q6 IVPB Last administered on 03/13/19at 05:37; Admin Dose 200 MLS/HR; Start 03/09/19 at 08:00 Miscellaneous Information 1 ea NOTE XX ; Start 03/09/19 at 06:30 Glucose (Glutose) 15 gm Q15M PRN PO DECREASED GLUCOSE; Start 03/09/19 at 06:30 Glucose (Glutose) 22.5 gm Q15M PRN PO DECREASED GLUCOSE; Start 03/09/19 at 06:30 Dextrose (D50w Syringe) 25 ml Q15M PRN IV DECREASED GLUCOSE; Start 03/09/19 at 06:30 Dextrose (D50w Syringe) 50 ml Q15M PRN IV DECREASED GLUCOSE; Start 03/09/19 at 06:30 Glucagon (Glucagen) 1 mg Q15M PRN IM DECREASED GLUCOSE; Start 03/09/19 at 06:30 Glucose (Glutose) 15 gm Q15M PRN BUCCAL DECREASED GLUCOSE; Start 03/09/19 at 06:30 Vancomycin HCl 1.25 gm/Sodium Chloride 250 ml @ 83.333 mls/ hr Q12H IVPB Last administered on 03/13/19at 01:23; Admin Dose 83.333 MLS/HR; Start 03/09/19 at 13:00 Miscellaneous Information [facility] This patient mora... PRN PRN XX WOUND CARE; Start 03/09/19 at 12:00 Total Parenteral Nutrition 1,000 ml @ 80 mls/hr [id number] IV Last administered on 03/13/19at 03:06; Admin Dose 80 MLS/HR; Start 03/09/19 at 18:30 Enoxaparin Sodium (Lovenox) 40 mg DAILY SC Last administered on 03/13/19at 08:57; Admin Dose 40 MG; Start 03/12/19 at 09:00 Alteplase, Recombinant (Cathflo (Activase)) 2 mg MAY REPEAT X1 PRN CATHETER IF CATHETER REMAINS OCCULUDED Last administered on 03/13/19at 04:47; Admin Dose 2 MG; Start 03/12/19 at 19:30 FRANC HARRIS March 13, 2019 09:39
--- NOTE | 2019-03-13 10:39 | PN ---
DATE: 03/13/2019 SUBJECTIVE: The patient is stable. No events overnight. No fever, chills, nausea or vomiting. OBJECTIVE: VITAL SIGNS: Blood pressure is 150/85, respirations 16, pulse 85, temperature 99.1. HEENT: Head is normocephalic. NECK: Supple. HEART: Regular rate. LUNGS: Show diminished breath sounds at the base. ABDOMEN: Soft, nontender to palpation. No rebound or guarding. EXTREMITIES: Negative for clubbing, cyanosis, no edema. DERMATOLOGIC: No rashes. MUSCULOSKELETAL: No joint effusion. NEUROLOGIC: No change in exam. MEDICATIONS: Reviewed. LABORATORY DATA: Reviewed. ASSESSMENT AND PLAN: 1. History of acute kidney injury. Renal function is improved. Continue to monitor. 2. Hypokalemia, improved. 3. Pleural effusion. Etiology may be infectious versus malignant. Continue to monitor. Consider t horacentesis. 4. History of colon cancer, status post resection. 5. Sepsis secondary to pneumonia. The patient is completing antibiotic course. 6. Nutrition. Continue TPN. 7. Diastolic heart failure. The patient is currently compensated. 8. History of atrial fibrillation. 9. History of hypertension. 10. History of deep vein thrombosis. 11. Status post exploratory laparotomy with abdominal washout. 12. We will follow the patient as needed. Dictated By: SUSAN ZURITA DO NR/NTS Conf#: [id number] DID#: [id number] CC: KURT SEO MD; ANDREY ZHENG MD;*EndCC*
[2019-03-13 15:01] VITALS: BP 149/79; PULSE 83; RESP 16
--- NOTE | 2019-03-13 16:20 | PN ---
Date/Time of Note Date/Time of Note DATE: 03/13/19 TIME: 16:20 Assessment/Plan VTE Prophylaxis Risk score (from Ns)>0 risk: 7 SCD applied (from Nsg): Yes Pharmacological prophylaxis: LMWH Lines/Catheters IV Catheter Type (from Nrsg): Peripheral IV Urinary Cath still in place: No Assessment/Plan Hospital Course Patient continues on RA without distress, complains of intermittent nausea, poor appetite. Assessment/Plan -Sepsis secondary to pneumonia, continue IV hydration, antibiotics per ID. Dr. Renner is following in infection disease consultation. -Right lower lobe pneumonia -Right lung pleural effusion, status post ultrasound-guided guided thoracentesis on 03/11/2019. Dr. Cardona is following in pulmonology consultation -Left upper extremity PICC line malfunction, resolved, venous Doppler is negative for DVT. -Chest pain with abnormal EKG, troponin is negative x3. Dr. Alejandro is following in cardiology consultation. -Stage III sigmoid colon cancer, status post surgery and chemo in 2018. -Chronic diastolic CHF -Paroxysmal atrial fibrillation, continue Lovenox. -Protein calorie malnutrition, continue TPN due to dehydration and malabsorption due to large ileostomy output. -History of anastomotic leak and intra-abdominal abscess, Status post laparotomy, washout of the peritoneal cavity, placement of a diverting loop ileostomy in right lower quadrant for protection of the anastomosis in the colorectal area on 02/11/[address] Art. Patient was on Levaquin and Flagyl at home. CT of the abdomen and pelvis on 03/11/2019 with near complete resolution of abscess. -History of open Reagan reversal and colorectal low pelvic anastomosis, segmental partial colectomy, and open incarcerated incisional and parastomal hernia repairs with mesh by Dr. Art on 01/21/2019. -Hx of Obstructive sleep apnea Further recommendations based on clinical course. Plan of care discussed with Dr. Fox. Result Diagram: 03/13/19 0444 03/13/19 0444 Results 24hrs Laboratory Tests Test 03/12/19 18:28 03/12/19 23:44 03/13/19 04:44 03/13/19 05:45 Bedside Glucose 138 144 150 White Blood Count 5.0 Red Blood Count 2.75 L Hemoglobin 7.5 L Hematocrit 23.7 L Mean Corpuscular 86.2 Volume Mean Corpuscular 27.3 L Hemoglobin Mean Corpuscular 31.6 L Hemoglobin Concent Red Cell 13.7 Distribution Width Platelet Count 316 Mean Platelet Volume 10.7 H Immature 0.600 H Granulocytes % Neutrophils % 77.7 H Lymphocytes % 9.3 L Monocytes % 8.2 Eosinophils % 3.6 Basophils % 0.6 Nucleated Red Blood 0.0 Cells % Immature 0.030 Granulocytes # Neutrophils # 3.9 Lymphocytes # 0.5 L Monocytes # 0.4 Eosinophils # 0.2 Basophils # 0.0 Nucleated Red Blood 0.0 Cells # Sodium Level 137 Potassium Level 3.7 Chloride Level 107 Carbon Dioxide Level 24 Anion Gap 6 Blood Urea Nitrogen 13 Creatinine 0.65 Est Glomerular > 60 Filtrat Rate mL/min Glucose Level 154 Calcium Level 8.3 L Phosphorus Level 3.8 Magnesium Level 1.9 Test 03/13/19 12:34 Bedside Glucose 125 Exam/Review of Systems Exam Vitals Vital Signs Date Temp Pulse Resp B/P (MAP) Pulse Ox O2 O2 Flow FiO2 Time Delivery Rate 03/13/19 98.3 83 16 149/79 97 15:01 (102) 03/12/19 Room Air 14:00 Intake and Output 03/12/19 03/12/19 03/13/19 1515:00 23:00 07:00 IntakeIntake Total 600 ml 1710 ml 1450 ml OutputOutput Total 350 ml 2550 ml 1830 ml BalanceBalance 250 ml -840 ml -380 ml Exam Constitutional: alert, oriented Respiratory: diminished breath sounds Cardiovascular: nl pulses Gastrointestinal: soft, non-tender, other (Abdominal surgical incision with dressing, left lower quadrant drain) Musculoskeletal: nl extremities to inspection Extremities: normal pulses Neurological: nl mental status Skin: nl turgor Results Results 24hrs Laboratory Tests Test 03/12/19 18:28 03/12/19 23:44 03/13/19 04:44 03/13/19 05:45 Bedside Glucose 138 144 150 White Blood Count 5.0 Red Blood Count 2.75 L Hemoglobin 7.5 L Hematocrit 23.7 L Mean Corpuscular 86.2 Volume Mean Corpuscular 27.3 L Hemoglobin Mean Corpuscular 31.6 L Hemoglobin Concent Red Cell 13.7 Distribution Width Platelet Count 316 Mean Platelet Volume 10.7 H Immature 0.600 H Granulocytes % Neutrophils % 77.7 H Lymphocytes % 9.3 L Monocytes % 8.2 Eosinophils % 3.6 Basophils % 0.6 Nucleated Red Blood 0.0 Cells % Immature 0.030 Granulocytes # Neutrophils # 3.9 Lymphocytes # 0.5 L Monocytes # 0.4 Eosinophils # 0.2 Basophils # 0.0 Nucleated Red Blood 0.0 Cells # Sodium Level 137 Potassium Level 3.7 Chloride Level 107 Carbon Dioxide Level 24 Anion Gap 6 Blood Urea Nitrogen 13 Creatinine 0.65 Est Glomerular > 60 Filtrat Rate mL/min Glucose Level 154 Calcium Level 8.3 L Phosphorus Level 3.8 Magnesium Level 1.9 Test 03/13/19 12:34 Bedside Glucose 125 Medications Medication Current Medications Vancomycin HCl (Vanco Iv Per Pharmacy) VANCOMYCIN PER PHARMACY PER PROTOCOL XX ; Start 03/09/19 at 06:00 Acetaminophen (Tylenol Tab) 650 mg Q4H PRN PO MILD PAIN(1-3)OR ELEVATED TEMP Last administered on 03/11/19at 20:41; Admin Dose 650 MG; Start 03/09/19 at 06:00 Acetaminophen/ Hydrocodone Bitart ([place] (5/325)) 1 tab Q4H PRN PO MODERATE PAIN LEVEL 4-6; Start 03/09/19 at 06:00 Hydromorphone HCl (Dilaudid) 0.5 mg Q3H PRN IV SEVERE PAIN LEVEL 7-10; Start 03/09/19 at 06:00 Insulin Aspart (Novolog Insulin Pen) NOVOLOG *MILD* ALGORI... Q6 SC Last administered on 03/13/19at 05:49; Admin Dose 1 UNIT; Start 03/09/19 at 06:00 Piperacillin Sod/ Tazobactam Sod 100 ml @ 200 mls/hr Q6 IVPB Last administered on 03/13/19at 12:31; Admin Dose 200 MLS/HR; Start 03/09/19 at 08:00 Miscellaneous Information 1 ea NOTE XX ; Start 03/09/19 at 06:30 Glucose (Glutose) 15 gm Q15M PRN PO DECREASED GLUCOSE; Start 03/09/19 at 06:30 Glucose (Glutose) 22.5 gm Q15M PRN PO DECREASED GLUCOSE; Start 03/09/19 at 06:30 Dextrose (D50w Syringe) 25 ml Q15M PRN IV DECREASED GLUCOSE; Start 03/09/19 at 06:30 Dextrose (D50w Syringe) 50 ml Q15M PRN IV DECREASED GLUCOSE; Start 03/09/19 at 06:30 Glucagon (Glucagen) 1 mg Q15M PRN IM DECREASED GLUCOSE; Start 03/09/19 at 06:30 Glucose (Glutose) 15 gm Q15M PRN BUCCAL DECREASED GLUCOSE; Start 03/09/19 at 06:30 Vancomycin HCl 1.25 gm/Sodium Chloride 250 ml @ 83.333 mls/ hr Q12H IVPB Last administered on 03/13/19at 12:33; Admin Dose 83.333 MLS/HR; Start 03/09/19 at 13:00 Miscellaneous Information (Pending Santyl Order For Wound Care) This patient mora... PRN PRN XX WOUND CARE; Start 03/09/19 at 12:00 Total Parenteral Nutrition 1,000 ml @ 80 mls/hr [id number] IV Last administered on 03/13/19at 03:06; Admin Dose 80 MLS/HR; Start 03/09/19 at 18:30 Enoxaparin Sodium (Lovenox) 40 mg DAILY SC Last administered on 03/13/19at 08:57; Admin Dose 40 MG; Start 03/12/19 at 09:00 Alteplase, Recombinant (Cathflo (Activase)) 2 mg MAY REPEAT X1 PRN CATHETER IF CATHETER REMAINS OCCULUDED Last administered on 03/13/19at 04:47; Admin Dose 2 MG; Start 03/12/19 at 19:30 ODELL PACHECO March 13, 2019 16:20
--- NOTE | 2019-03-13 16:29 | CONS ---
Assessment/Plan Assessment/Plan Hospital Course (Demo Recall) # sepsis, respiratory - persistent RLL infiltrate with complex pleural effusion - recurrent pleural effusion, follow up chest US on 02/17/2019 showed small R sided effusion. CXR 03/09/19 showed moderate R sided pleural effusion - s/p repeat R sided thoracentesis, exudative process as LDH was 607 - h/o R pleural effusion, exudative process, parapneumonic effusion LDH 1601 protein 3.2, no e/o malignancy on cytology - h/o R sided thoracentesis on 02/05/2019 - possibly residual intra-abdominal infection as CT on 03/11/2019 showed residual fat stranding throughout the abdomen and pelvis - h/o sepsis due to complicated intra-abdominal infection and pneumonia - VIJAY # GI, onc - residual fat stranding throughout the abdomen and pelvis on CT 03/11/2019 - s/p ex lap, washout of abdominal abscess, CLEVE, diverting loop ileostomy on 02/11/2019 - s/p open Reagan reversal and colorectal low pelvic anastomosis, segmental partial colectomy, and open incarcerated incisional and parastomal hernia repairs with mesh by Dr. Art on 01/21/2019 - h/o thrush, resolved - h/o follow up CT on 02/04/2019 did not identify definite point of leak--> anastomotic leak was identified on gastograffin - h/o CT guided drainage of abscess in LLQ on 02/01/2019 - h/o abdominal wound culture 01/30/19 and abscess culture 01/31/19 grew pseudomonas, joseline albicans and glabrata - h/o colostomy reversal - h/o stage III sigmoid colon cancer, status post prior colectomy/colostomy and chemo in 2017 # renal, cardiovascular - h/o recurrent acute kidney injury on chronic kidney disease - h/o acute on chronic diastolic CHF, improved - h/o atrial fibrillation with RVR, converted to SR - h/o hypertension - h/o left upper extremity DVT - h/o superficial thrombus in R cephalic vein in the forearm and in L cephalic vein in the antecubital fossa as visualized on NOY 02/05/2019 # other conditions - h/o R conjunctivitis, resolved after neomycin eye drop x 7 days - Of note: Pt previously took meropenem (01/30/2019-02/03/2019), metronidazole (02/04/2019-02/16/2019) and cefepime (02/04/2019-02/18/2019); Flagyl (02/24/19 - 03/08/19) and Levaquin ( - 03/08/19); s/p fluconazole recommendations: - pending results: cultures of blood, pleural effusion, aerobic and anaerobic cultures of intra-abdominal fluid in the catheter (gram negative and staph spp) - continue vancomycin and pip/tazo (restart 03/09/19) empirically. Once the final culture result of intra-abdominal fluid in the catheter becomes available, hopefully in 1-2 days, I will adjust his antibiotic regimen. Dr. Art is planning to keep the drainage catheter for approximately 8 more days and so antibiotics may be continued for the same duration management d/w Pt Consultation Date/Type/Reason Admit Date/Time March 09, 2019 at 03:20 Initial Consult Date 03/10/19 Type of Consult ID Requesting Provider: ANDREY ZHENG MD Date/Time of Note DATE: 03/13/19 TIME: 16:28 24 HR Interval Summary Constitutional: no complaints Detailed Summary Eyes: no complaints ENT: no complaints Respiratory: no complaints Cardiovascular: no complaints Gastrointestinal: passing stool (into a colostomy bag); No pain Genitourinary: no complaints Musculoskeletal: no complaints Skin: no complaints Neurologic: no complaints Exam/Review of Systems Exam Vitals Vital Signs Date Temp Pulse Resp B/P (MAP) Pulse Ox O2 O2 Flow FiO2 Time Delivery Rate 03/13/19 98.3 83 16 149/79 97 15:01 (102) 03/12/19 Room Air 14:00 Intake and Output 03/12/19 03/12/19 03/13/19 1515:00 23:00 07:00 IntakeIntake Total 600 ml 1710 ml 1450 ml OutputOutput Total 350 ml 2550 ml 1830 ml BalanceBalance 250 ml -840 ml -380 ml Constitutional: alert, oriented, well developed Psych: no complaints, nl mood/affect Head: normocephalic, atraumatic Eyes: nl conjunctiva, nl lids, nl sclera ENMT: nl external ears & nose, nl nasal mucosa & septum, mucosa pink and moist Neck: No non-tender Respiratory: clear to auscultation, normal air movement Cardiovascular: regular rate and rhythm Gastrointestinal: soft, surgical scars, other (+colostomy bag in RLQ, an e xternal drainage catheter in LLQ collecting purulent material); No distended Musculoskeletal: nl extremities to inspection Extremities: No edema Neurological: [employer] II-XII intact, nl mental status, nl speech Skin: nl turgor; No rash or lesions Results Result Diagram: 03/13/19 0444 03/13/19 0444 Results 24hrs Laboratory Tests Test 03/12/19 18:28 03/12/19 23:44 03/13/19 04:44 03/13/19 05:45 Bedside Glucose 138 144 150 White Blood Count 5.0 Red Blood Count 2.75 L Hemoglobin 7.5 L Hematocrit 23.7 L Mean Corpuscular 86.2 Volume Mean Corpuscular 27.3 L Hemoglobin Mean Corpuscular 31.6 L Hemoglobin Concent Red Cell 13.7 Distribution Width Platelet Count 316 Mean Platelet Volume 10.7 H Immature 0.600 H Granulocytes % Neutrophils % 77.7 H Lymphocytes % 9.3 L Monocytes % 8.2 Eosinophils % 3.6 Basophils % 0.6 Nucleated Red Blood 0.0 Cells % Immature 0.030 Granulocytes # Neutrophils # 3.9 Lymphocytes # 0.5 L Monocytes # 0.4 Eosinophils # 0.2 Basophils # 0.0 Nucleated Red Blood 0.0 Cells # Sodium Level 137 Potassium Level 3.7 Chloride Level 107 Carbon Dioxide Level 24 Anion Gap 6 Blood Urea Nitrogen 13 Creatinine 0.65 Est Glomerular > 60 Filtrat Rate mL/min Glucose Level 154 Calcium Level 8.3 L Phosphorus Level 3.8 Magnesium Level 1.9 Test 03/13/19 12:34 Bedside Glucose 125 Medications Medication Current Medications Vancomycin HCl (Vanco Iv Per Pharmacy) VANCOMYCIN PER PHARMACY PER PROTOCOL XX ; Start 03/09/19 at 06:00 Acetaminophen (Tylenol Tab) 650 mg Q4H PRN PO MILD PAIN(1-3)OR ELEVATED TEMP Last administered on 03/11/19at 20:41; Admin Dose 650 MG; Start 03/09/19 at 06:00 Acetaminophen/ Hydrocodone Bitart ([place] (5/325)) 1 tab Q4H PRN PO MODERATE PAIN LEVEL 4-6; Start 03/09/19 at 06:00 Hydromorphone HCl (Dilaudid) 0.5 mg Q3H PRN IV SEVERE PAIN LEVEL 7-10; Start 03/09/19 at 06:00 Insulin Aspart (Novolog Insulin Pen) NOVOLOG *MILD* ALGORI... Q6 SC Last administered on 03/13/19at 05:49; Admin Dose 1 UNIT; Start 03/09/19 at 06:00 Piperacillin Sod/ Tazobactam Sod 100 ml @ 200 mls/hr Q6 IVPB Last administered on 03/13/19at 12:31; Admin Dose 200 MLS/HR; Start 03/09/19 at 08:00 Miscellaneous Information 1 ea NOTE XX ; Start 03/09/19 at 06:30 Glucose (Glutose) 15 gm Q15M PRN PO DECREASED GLUCOSE; Start 03/09/19 at 06:30 Glucose (Glutose) 22.5 gm Q15M PRN PO DECREASED GLUCOSE; Start 03/09/19 at 06:3 0 Dextrose (D50w Syringe) 25 ml Q15M PRN IV DECREASED GLUCOSE; Start 03/09/19 at 06:30 Dextrose (D50w Syringe) 50 ml Q15M PRN IV DECREASED GLUCOSE; Start 03/09/19 at 06:30 Glucagon (Glucagen) 1 mg Q15M PRN IM DECREASED GLUCOSE; Start 03/09/19 at 06:30 Glucose (Glutose) 15 gm Q15M PRN BUCCAL DECREASED GLUCOSE; Start 03/09/19 at 06:30 Vancomycin HCl 1.25 gm/Sodium Chloride 250 ml @ 83.333 mls/ hr Q12H IVPB Last administered on 03/13/19at 12:33; Admin Dose 83.333 MLS/HR; Start 03/09/19 at 13:00 Miscellaneous Information (Pending Santyl Order For Wound Care) This patient mora... PRN PRN XX WOUND CARE; Start 03/09/19 at 12:00 Total Parenteral Nutrition 1,000 ml @ 80 mls/hr [id number] IV Last administered on 03/13/19at 03:06; Admin Dose 80 MLS/HR; Start 03/09/19 at 18:30 Enoxaparin Sodium (Lovenox) 40 mg DAILY SC Last administered on 03/13/19at 08:57; Admin Dose 40 MG; Start 03/12/19 at 09:00 Alteplase, Recombinant (Cathflo (Activase)) 2 mg MAY REPEAT X1 PRN CATHETER IF CATHETER REMAINS OCCULUDED Last administered on 03/13/19at 04:47; Admin Dose 2 MG; Start 03/12/19 at 19:30 MERCED ESCUDERO M.D. March 13, 2019 16:29
--- NOTE | 2019-03-13 18:01 | CONS ---
Assessment/Plan Assessment/Plan Hospital Course (Demo Recall) IMPRESSION: 1. Chest pain, assess for acute coronary syndrome with chest pain being pleuritic at this time -neg trop x 3 2. Abnormal echocardiogram with nonspecific ST-T abnormalities, assess for acute coronary syndrome. 3. History of congestive heart failure, diastolic, by most recent echo with increased BNP at this time. Thus, possibly acute on chronic. 4. Right pleural effusion, status post thoracentesis. 5. Colon CA status post colectomy with colostomy complicated by previous abs cess requiring drainage. 6. Diabetes mellitus. 7. Fevers. 8. Urinary tract infection. 9. HTN Recc: -Continue TPN -Contiue abx's and f/u cx data -STart clonidine TTS to improve BP Consultation Date/Type/Reason Admit Date/Time March 09, 2019 at 03:20 Initial Consult Date 03/10/19 Type of Consult Cardiology Reason for Consultation Chest pain Requesting Provider: ANDREY ZHENG MD Date/Time of Note DATE: 03/13/19 TIME: 17:58 Exam/Review of Systems Vital Signs Vitals Vital Signs Date Temp Pulse Resp B/P (MAP) Pulse Ox O2 O2 Flow FiO2 Time Delivery Rate 03/13/19 98.3 83 16 149/79 97 15:01 (102) 03/12/19 Room Air 14:00 Intake and Output 03/12/19 03/12/19 03/13/19 1515:00 23:00 07:00 IntakeIntake Total 600 ml 1710 ml 1450 ml OutputOutput Total 350 ml 2550 ml 1830 ml BalanceBalance 250 ml -840 ml -380 ml Exam Exam Review of Systems: CONSTITUTIONAL: No fevers, chills. PULMONARY: No sob CARDIOVASCULAR: No chest pain/palpitations GASTROINTESTINAL:colostomy GENITOURINARY: No hematuria/dysuria. MUSCULOSKELETAL: No myagias/arthalgias. PSYCHIATRIC: The patient denies depression. NEUROLOGIC: No weakness Constitutional: alert, oriented Psych: no complaints Head: normocephalic ENMT: mucosa pink and moist Neck: supple, jvd (9 cm water) Respiratory: clear to auscultation Cardiovascular: regular rate and rhythm Gastrointestinal: soft, non-tender Musculoskeletal: muscle tone (normal) Extremities: edema (none) Neurological: other (NO focal defiicts) Labs Result Diagram: 03/13/19 0444 03/13/19 0444 Results 24hrs Laboratory Tests Test 03/12/19 18:28 03/12/19 23:44 03/13/19 04:44 03/13/19 05:45 Bedside Glucose 138 144 150 White Blood Count 5.0 Red Blood Count 2.75 L Hemoglobin 7.5 L Hematocrit 23.7 L Mean Corpuscular 86.2 Volume Mean Corpuscular 27.3 L Hemoglobin Mean Corpuscular 31.6 L Hemoglobin Concent Red Cell 13.7 Distribution Width Platelet Count 316 Mean Platelet Volume 10.7 H Immature 0.600 H Granulocytes % Neutrophils % 77.7 H Lymphocytes % 9.3 L Monocytes % 8.2 Eosinophils % 3.6 Basophils % 0.6 Nucleated Red Blood 0.0 Cells % Immature 0.030 Granulocytes # Neutrophils # 3.9 Lymphocytes # 0.5 L Monocytes # 0.4 Eosinophils # 0.2 Basophils # 0.0 Nucleated Red Blood 0.0 Cells # Sodium Level 137 Potassium Level 3.7 Chloride Level 107 Carbon Dioxide Level 24 Anion Gap 6 Blood Urea Nitrogen 13 Creatinine 0.65 Est Glomerular > 60 Filtrat Rate mL/min Glucose Level 154 Calcium Level 8.3 L Phosphorus Level 3.8 Magnesium Level 1.9 Test 03/13/19 12:34 03/13/19 17:34 Bedside Glucose 125 124 Medications Medications Current Medications Vancomycin HCl (Vanco Iv Per Pharmacy) VANCOMYCIN PER PHARMACY PER PROTOCOL XX ; Start 03/09/19 at 06:00 Acetaminophen (Tylenol Tab) 650 mg Q4H PRN PO MILD PAIN(1-3)OR ELEVATED TEMP Last administered on 03/11/19at 20:41; Admin Dose 650 MG; Start 03/09/19 at 06:00 Acetaminophen/ Hydrocodone Bitart ([place] (5/325)) 1 tab Q4H PRN PO MODERATE PAIN LEVEL 4-6; Start 03/09/19 at 06:00 Hydromorphone HCl (Dilaudid) 0.5 mg Q3H PRN IV SEVERE PAIN LEVEL 7-10; Start 03/09/19 at 06:00 Insulin Aspart (Novolog Insulin Pen) NOVOLOG *MILD* ALGORI... Q6 SC Last administered on 03/13/19at 05:49; Admin Dose 1 UNIT; Start 03/09/19 at 06:00 Piperacillin Sod/ Tazobactam Sod 100 ml @ 200 mls/hr Q6 IVPB Last administered on 03/13/19at 17:35; Admin Dose 200 MLS/HR; Start 03/09/19 at 08:00 Miscellaneous Information 1 ea NOTE XX ; Start 03/09/19 at 06:30 Glucose (Glutose) 15 gm Q15M PRN PO DECREASED GLUCOSE; Start 03/09/19 at 06:30 Glucose (Glutose) 22.5 gm Q15M PRN PO DECREASED GLUCOSE; Start 03/09/19 at 06:30 Dextrose (D50w Syringe) 25 ml Q15M PRN IV DECREASED GLUCOSE; Start 03/09/19 at 06:30 Dextrose (D50w Syringe) 50 ml Q15M PRN IV DECREASED GLUCOSE; Start 03/09/19 at 06:30 Glucagon (Glucagen) 1 mg Q15M PRN IM DECREASED GLUCOSE; Start 03/09/19 at 06:30 Glucose (Glutose) 15 gm Q15M PRN BUCCAL DECREASED GLUCOSE; Start 03/09/19 at 06:30 Vancomycin HCl 1.25 gm/Sodium Chloride 250 ml @ 83.333 mls/ hr Q12H IVPB Last administered on 03/13/19at 12:33; Admin Dose 83.333 MLS/HR; Start 03/09/19 at 13:00 Miscellaneous Information [facility] This patient mora... PRN PRN XX WOUND CARE; Start 03/09/19 at 12:00 Total Parenteral Nutrition 1,000 ml @ 80 mls/hr [id number] IV Last administered on 03/13/19at 16:40; Admin Dose 80 MLS/HR; Start 03/09/19 at 18:30 Enoxaparin Sodium (Lovenox) 40 mg DAILY SC Last administered on 03/13/19at 08:57; Admin Dose 40 MG; Start 03/12/19 at 09:00 Alteplase, Recombinant (Cathflo (Activase)) 2 mg MAY REPEAT X1 PRN CATHETER IF CATHETER REMAINS OCCULUDED Last administered on 03/13/19at 04:47; Admin Dose 2 MG; Start 03/12/19 at 19:30 EUGENE ANDERSON March 13, 2019 18:01
[2019-03-13] MEDS ORDERED: CLONIDINE 0.1 MG/24 HR PATCH TRANSDERM SCH (19:30)
[2019-03-13 20:00] VITALS: BP 149/87; PULSE 81; RESP 18
[2019-03-13] MEDS ORDERED: CLONIDINE 0.2 MG/24 HR PATCH TRANSDERM SCH (20:30)
[2019-03-14] MEDS: PIPER-TAZO 3.375 GM IV (PMX) 100 ML IVPB SCH ×4 (00:01→18:43)
[2019-03-14] MEDS: VANCOMYCIN HCL 1.25 GM in SOD CHLORIDE 0.9% 250 ML IVPB SCH ×3 (01:07→16:31)
[2019-03-14 02:00] VITALS: BP 154/80; PULSE 78; RESP 17
[2019-03-14] MEDS: TPN 1,000 ML IV SCH ×2 (05:50→18:43)
[2019-03-14] MEDS: INSULIN ASPART [NOVOLOG] 3 ML PEN SC SCH ×4 (05:53→17:30)
[2019-03-14 08:00] VITALS: BP 137/64; PULSE 94; RESP 20
[2019-03-14] MEDS: ENOXAPARIN 40 MG/0.4 ML SYG SC SCH (09:12)
--- NOTE | 2019-03-14 11:32 | CONS ---
Consult Date/Type/Reason Admit Date/Time March 09, 2019 at 03:20 Initial Consult Date 03/10/19 Type of Consult Pulmonary Requesting Provider: ANDREY ZHENG MD Date/Time of Note DATE: 03/14/19 TIME: 11:31 Subjective Patient comfortable this morning with no respiratory distress Objective Vital Signs Date Temp Pulse Resp B/P (MAP) Pulse Ox O2 O2 Flow FiO2 Time Delivery Rate 03/14/19 98.8 94 20 137/64 96 08:00 (88) 03/14/19 Room Air 02:00 Intake and Output 03/13/19 03/13/19 03/14/19 1515:00 23:00 07:00 IntakeIntake Total 350 ml 1400 ml 1350 ml OutputOutput Total 0 ml 1305 ml 1900 ml BalanceBalance 350 ml 95 ml -550 ml Exam GENERAL: VITAL SIGNS well-nourished well-developed gentleman: per chart NECK: Supple. No JVD or lymphadenopathy. CARDIAC EXAM: S1, S2. No added sounds or murmurs. CHEST: Diminished air entry right base ABDOMEN: Soft, nontender. No guarding or rebound. EXTREMITIES: No cyanosis, clubbing or edema. NEUROLOGIC: Generalized weakness. No focal deficits. Results/Medications Result Diagram: 03/13/19 0444 03/14/19 0935 Results 24 hrs Laboratory Tests Test 03/13/19 12:34 03/13/19 17:34 03/14/19 00:10 03/14/19 05:52 Bedside Glucose 125 124 130 128 Test 03/14/19 06:59 03/14/19 09:07 03/14/19 09:35 Sodium Level 135 Potassium Level 4.6 Chloride Level 106 Carbon Dioxide Level 22 Anion Gap 7 Blood Urea Nitrogen 11 Creatinine 0.83 Est Glomerular > 60 Filtrat Rate mL/min Glucose Level 652 #*H 178 # Calcium Level 7.7 L Phosphorus Level 4.2 Magnesium Level 2.4 Bedside Glucose 182 Medications Current Medications Vancomycin HCl (Vanco Iv Per Pharmacy) VANCOMYCIN PER PHARMACY PER PROTOCOL XX ; Start 03/09/19 at 06:00 Acetaminophen (Tylenol Tab) 650 mg Q4H PRN PO MILD PAIN(1-3)OR ELEVATED TEMP Last administered on 03/11/19at 20:41; Admin Dose 650 MG; Start 03/09/19 at 06:00 Acetaminophen/ Hydrocodone Bitart ([place] (5/325)) 1 tab Q4H PRN PO MODERATE PAIN LEVEL 4-6; Start 03/09/19 at 06:00 Hydromorphone HCl (Dilaudid) 0.5 mg Q3H PRN IV SEVERE PAIN LEVEL 7-10; Start 03/09/19 at 06:00 Insulin Aspart (Novolog Insulin Pen) NOVOLOG *MILD* ALGORI... Q6 SC Last administered on 03/13/19at 05:49; Admin Dose 1 UNIT; Start 03/09/19 at 06:00 Piperacillin Sod/ Tazobactam Sod 100 ml @ 200 mls/hr Q6 IVPB Last administered on 03/14/19at 05:45; Admin Dose 200 MLS/HR; Start 03/09/19 at 08:00 Miscellaneous Information 1 ea NOTE XX ; Start 03/09/19 at 06:30 Glucose (Glutose) 15 gm Q15M PRN PO DECREASED GLUCOSE; Start 03/09/19 at 06:30 Glucose (Glutose) 22.5 gm Q15M PRN PO DECREASED GLUCOSE; Start 03/09/19 at 06:30 Dextrose (D50w Syringe) 25 ml Q15M PRN IV DECREASED GLUCOSE; Start 03/09/19 at 06:30 Dextrose (D50w Syringe) 50 ml Q15M PRN IV DECREASED GLUCOSE; Start 03/09/19 at 06:30 Glucagon (Glucagen) 1 mg Q15M PRN IM DECREASED GLUCOSE; Start 03/09/19 at 06:30 Glucose (Glutose) 15 gm Q15M PRN BUCCAL DECREASED GLUCOSE; Start 03/09/19 at 06:30 Vancomycin HCl 1.25 gm/Sodium Chloride 250 ml @ 83.333 mls/ hr Q12H IVPB Last administered on 03/14/19at 01:07; Admin Dose 83.333 MLS/HR; Start 03/09/19 at 13:00 Miscellaneous Information (Pending [facility] Order For Wound Care) This patient mora... PRN PRN XX WOUND CARE; Start 03/09/19 at 12:00 Total Parenteral Nutrition 1,000 ml @ 80 mls/hr [id number] IV Last administered on 03/14/19at 05:50; Admin Dose 80 MLS/HR; Start 03/09/19 at 18:30 Enoxaparin Sodium (Lovenox) 40 mg DAILY SC Last administered on 03/14/19at 09:12; Admin Dose 40 MG; Start 03/12/19 at 09:00 Alteplase, Recombinant (Cathflo (Activase)) 2 mg MAY REPEAT X1 PRN CATHETER IF CATHETER REMAINS OCCULUDED Last administered on 03/13/19at 04:47; Admin Dose 2 MG; Start 03/12/19 at 19:30 Clonidine HCl (Catapres-Tts 2 Patch) 1 patch Q7D TRANSDERM Last administered on 03/13/19at 21:27; Admin Dose 1 PATCH; Start 03/13/19 at 20:30 Assessment/Plan Hospital Course (Demo Recall) Assessment 1. Right pleural effusion loculated possibly parapneumonic 2 history of upper extremity deep vein thrombosis 3. History of colon cancer status post resection and chemotherapy. Postop ileus on TPN. Plan 1. Continue TPN. Consider initiation of p.o. diet per surgery. 2. Await pleural fluid cytology 3. Encourage out of bed 4. We will discuss decortication with family however given recent colon cancer surgery would hold off for a month or so. RAFAEL HERNANDEZ MD, [facility] March 14, 2019 11:32
[2019-03-14 14:00] VITALS: BP 154/82; PULSE 90; RESP 20
--- NOTE | 2019-03-14 14:26 | CONS ---
[facility] HCIS Consult Follow-up Patient Name: Santiago Kelly Unit Number: [id number] Date of : 1960 Patient Status: Admitted Inpatient Attending Doctor: Andrey Zheng MD Edit: MERCED RENNER M.D. on 03/17/19 @ 01:06 [place]: I discussed the management with BRENDAN Bañuelos and agree Assessment/Plan Assessment/Plan Hospital Course (Demo Recall) # sepsis, respiratory - persistent RLL infiltrate with complex pleural effusion - recurrent pleural effusion, follow up chest US on 02/17/2019 showed small R sided effusion. CXR 03/09/19 showed moderate R sided pleural effusion - s/p repeat R sided thoracentesis, exudative process as LDH was 607 - h/o R pleural effusion, exudative process, parapneumonic effusion LDH 1601 protein 3.2, no e/o malignancy on cytology - h/o R sided thoracentesis on 02/05/2019 - possibly residual intra-abdominal infection as CT on 03/11/2019 showed residual fat stranding throughout the abdomen and pelvis; wound culture grew Stenotrophomonas, CoNS, and scant Lactobacillus (possible colonizers) - h/o sepsis due to complicated intra-abdominal infection and pneumonia - VIJAY # GI, onc - residual fat stranding throughout the abdomen and pelvis on CT 03/11/2019 - s/p ex lap, washout of abdominal abscess, CLEVE, diverting loop ileostomy on 02/11/2019 - s/p open Reagan reversal and colorectal low pelvic anastomosis, segmental partial colectomy, and open incarcerated incisional and parastomal hernia repairs with mesh by Dr. Art on 01/21/2019 - h/o thrush, resolved - h/o follow up CT on 02/04/2019 did not identify definite point of leak--> anastomotic leak was identified on gastograffin - h/o CT guided drainage of abscess in LLQ on 02/01/2019 - h/o abdominal wound culture 01/30/19 and abscess culture 01/31/19 grew pseudomonas, joseline albicans and glabrata - h/o colostomy reversal - h/o stage III sigmoid colon cancer, status post prior colectomy/colostomy and chemo in 2018 # renal, cardiovascular - h/o recurrent acute kidney injury on chronic kidney disease - h/o acute on chronic diastolic CHF, improved - h/o atrial fibrillation with RVR, converted to SR - h/o hypertension - h/o left upper extremity DVT - h/o superficial thrombus in R cephalic vein in the forearm and in L cephalic vein in the antecubital fossa as visualized on NOY 02/05/2019 # other conditions - h/o R conjunctivitis, resolved after neomycin eye drop x 7 days - Of note: Pt previously took meropenem (01/30/2019-02/03/2019), metronidazole (02/04/2019-02/16/2019) and cefepime (02/04/2019-02/18/2019); Flagyl (02/24/19 - 03/08/19) and Levaquin ( - 03/08/19); s/p fluconazole Recommendations: - continue vancomycin and pip/tazo (restart 03/09/19-) empirically. Dr. Art is planning to keep the drainage catheter for approximately 7 more days and so antibiotics may be continued for the same duration Management d/w patient, CATHERINE Zafar, and with Dr. Renner Consultation Date/Type/Reason Admit Date/Time March 09, 2019 at 03:20 Initial Consult Date 03/10/19 Type of Consult Infectious Disease Requesting Provider: ANDREY ZHENG MD Date/Time of Note DATE: 03/14/19 TIME: 14:24 24 HR Interval Summary Free Text/Dictation Remains afebrile, WBC and lactic WNL, and abd wound culture grew Stenotrophomonas, CoNS, and scant Lactobacillus. Denies pain, SOB, n/v, dysuria. Remains on TPN and eating small amount PO per d/w nursing. Exam/Review of Systems Exam Vitals Vital Signs Date Temp Pulse Resp B/P (MAP) Pulse Ox O2 O2 Flow FiO2 Time Delivery Rate 03/14/19 98.8 94 20 137/64 96 08:00 (88) 03/14/19 Room Air 02:00 Intake and Output 03/13/19 03/13/19 03/14/19 1515:00 23:00 07:00 IntakeIntake Total 350 ml 1400 ml 1350 ml OutputOutput Total 0 ml 1305 ml 1900 ml BalanceBalance 350 ml 95 ml -550 ml Constitutional: alert, oriented, well developed, obese Psych: no complaints, nl mood/affect Head: normocephalic, atraumatic Eyes: nl conjunctiva, nl lids, nl sclera ENMT: nl external ears & nose, nl nasal mucosa & septum, mucosa pink and moist Neck: supple, non-tender Respiratory: clear to auscultation, normal air movement Cardiovascular: regular rate and rhythm, nl pulses Gastrointestinal: soft, non-tender, surgical scars, other (RLQ ilestomy intact with liquid stool; LLQ external drainage catheter in place with purulent output) Musculoskeletal: nl extremities to inspection Extremities: normal pulses, other (LUE PICC c/d/i) Neurological: VOCAL ARTIST II-XII intact, nl mental status, nl speech Skin: nl turgor; No rash or lesions Results Result Diagram: 03/13/19 0444 03/14/19 0935 Results 24hrs Laboratory Tests Test 03/13/19 17:34 03/14/19 00:10 03/14/19 05:52 03/14/19 06:59 Bedside Glucose 124 130 128 Sodium Level 135 Potassium Level 4.6 Chloride Level 106 Carbon Dioxide Level 22 Anion Gap 7 Blood Urea Nitrogen 11 Creatinine 0.83 Est Glomerular > 60 Filtrat Rate mL/min Glucose Level 652 #*H Calcium Level 7.7 L Phosphorus Level 4.2 Magnesium Level 2.4 Test 03/14/19 09:07 03/14/19 09:35 03/14/19 12:11 Bedside Glucose 182 156 Glucose Level 178 # Imaging Imaging CXR 03/14/2019: Right basilar infiltrate is mildly improved. Moderate right pleural effusion unchanged. Medications Medication Current Medications Vancomycin HCl (Vanco Iv Per Pharmacy) VANCOMYCIN PER PHARMACY PER PROTOCOL XX ; Start 03/09/19 at 06:00 Acetaminophen (Tylenol Tab) 650 mg Q4H PRN PO MILD PAIN(1-3)OR ELEVATED TEMP Last administered on 03/11/19at 20:41; Admin Dose 650 MG; Start 03/09/19 at 06:00 Acetaminophen/ Hydrocodone Bitart ([place] (5/325)) 1 tab Q4H PRN PO MODERATE PAIN LEVEL 4-6; Start 03/09/19 at 06:00 Hydromorphone HCl (Dilaudid) 0.5 mg Q3H PRN IV SEVERE PAIN LEVEL 7-10; Start 03/09/19 at 06:00 Insulin Aspart (Novolog Insulin Pen) NOVOLOG *MILD* ALGORI... Q6 SC Last administered on 03/14/19at 12:13; Admin Dose 1 UNIT; Start 03/09/19 at 06:00 Piperacillin Sod/ Tazobactam Sod 100 ml @ 200 mls/hr Q6 IVPB Last administered on 03/14/19at 12:13; Admin Dose 200 MLS/HR; Start 03/09/19 at 08:00 Miscellaneous Information 1 ea NOTE XX ; Start 03/09/19 at 06:30 Glucose (Glutose) 15 gm Q15M PRN PO DECREASED GLUCOSE; Start 03/09/19 at 06:30 Glucose (Glutose) 22.5 gm Q15M PRN PO DECREASED GLUCOSE; Start 03/09/19 at 06:30 Dextrose (D50w Syringe) 25 ml Q15M PRN IV DECREASED GLUCOSE; Start 03/09/19 at 06:30 Dextrose (D50w Syringe) 50 ml Q15M PRN IV DECREASED GLUCOSE; Start 03/09/19 at 06:30 Glucagon (Glucagen) 1 mg Q15M PRN IM DECREASED GLUCOSE; Start 03/09/19 at 06:30 Glucose (Glutose) 15 gm Q15M PRN BUCCAL DECREASED GLUCOSE; Start 03/09/19 at 06:30 Vancomycin HCl 1.25 gm/Sodium Chloride 250 ml @ 83.333 mls/ hr Q12H IVPB Last administered on 03/14/19at 01:07; Admin Dose 83.333 MLS/HR; Start 03/09/19 at 13:00 Miscellaneous Information (Pending [facility] Order For Wound Care) This patient mora. .. PRN PRN XX WOUND CARE; Start 03/09/19 at 12:00 Total Parenteral Nutrition 1,000 ml @ 80 mls/hr [id number] IV Last administered on 03/14/19at 05:50; Admin Dose 80 MLS/HR; Start 03/09/19 at 18:30 Enoxaparin Sodium (Lovenox) 40 mg DAILY SC Last administered on 03/14/19at 09:12; Admin Dose 40 MG; Start 03/12/19 at 09:00 Alteplase, Recombinant (Cathflo (Activase)) 2 mg MAY REPEAT X1 PRN CATHETER IF C ATHETER REMAINS OCCULUDED Last administered on 03/13/19at 04:47; Admin Dose 2 MG; Start 03/12/19 at 19:30 Clonidine HCl (Catapres-Tts 2 Patch) 1 patch Q7D TRANSDERM Last administered on 03/13/19at 21:27; Admin Dose 1 PATCH; Start 03/13/19 at 20:30 YVETTE BAÑUELOS NP March 14, 2019 14:26
[2019-03-14 16:00] VITALS: BP 148/66; PULSE 90
--- NOTE | 2019-03-14 17:54 | PN ---
Date/Time of Note Date/Time of Note DATE: 03/14/19 TIME: 17:52 Assessment/Plan VTE Prophylaxis Risk score (from Nsg)>0 risk: 1 SCD applied (from Nsg): Yes Pharmacological prophylaxis: other Lines/Catheters IV Catheter Type (from Nrsg): Saline Lock Urinary Cath still in place: No Assessment/Plan Assessment/Plan s/p diverting loop ileostomy for anastomotic leak ok to dc home from surgical standpoint and see in the office to pull out drainage catheter will continue to follow Result Diagram: 03/13/19 0444 03/14/19 0935 Results 24hrs Laboratory Tests Test 03/14/19 00:10 03/14/19 05:52 03/14/19 06:59 03/14/19 09:07 Bedside Glucose 130 128 182 Sodium Level 135 Potassium Level 4.6 Chloride Level 106 Carbon Dioxide Level 22 Anion Gap 7 Blood Urea Nitrogen 11 Creatinine 0.83 Est Glomerular > 60 Filtrat Rate mL/min Glucose Level 652 #*H Calcium Level 7.7 L Phosphorus Level 4.2 Magnesium Level 2.4 Test 03/14/19 09:35 03/14/19 12:11 03/14/19 14:28 03/14/19 17:29 Glucose Level 178 # Bedside Glucose 156 120 Vancomycin Level 10.7 Trough Subjective 24 Hr Interval Summary Free Text/Dictation overall patient has improved and blocked PICC line has been addressed minimal infection in the abdomen with drainage patient tolerating diet and on TPN Exam/Review of Systems Exam Vitals Vital Signs Date Temp Pulse Resp B/P (MAP) Pulse Ox O2 O2 Flow FiO2 Time Delivery Rate 03/14/19 98.8 90 20 154/82 96 14:00 (106) 03/14/19 Room Air 02:00 Intake and Output 03/13/19 03/13/19 03/14/19 1515:00 23:00 07:00 IntakeIntake Total 350 ml 1400 ml 1350 ml OutputOutput Total 0 ml 1305 ml 1900 ml BalanceBalance 350 ml 95 ml -550 ml Exam well healed incisions colostomy site healed ileostomy viable and function LLQ drain in place abd soft nontender Results Results 24hrs Laboratory Tests Test 03/14/19 00:10 03/14/19 05:52 03/14/19 06:59 03/14/19 09:07 Bedside Glucose 130 128 182 Sodium Level 135 Potassium Level 4.6 Chloride Level 106 Carbon Dioxide Level 22 Anion Gap 7 Blood Urea Nitrogen 11 Creatinine 0.83 Est Glomerular > 60 Filtrat Rate mL/min Glucose Level 652 #*H Calcium Level 7.7 L Phosphorus Level 4.2 Magnesium Level 2.4 Test 03/14/19 09:35 03/14/19 12:11 03/14/19 14:28 03/14/19 17:29 Glucose Level 178 # Bedside Glucose 156 120 Vancomycin Level 10.7 Trough Medications Medication Current Medications Vancomycin HCl (Vanco Iv Per Pharmacy) VANCOMYCIN PER PHARMACY PER PROTOCOL XX ; Start 03/09/19 at 06:00 Acetaminophen (Tylenol Tab) 650 mg Q4H PRN PO MILD PAIN(1-3)OR ELEVATED TEMP Last administered on 03/11/19at 20:41; Admin Dose 650 MG; Start 03/09/19 at 06:00 Acetaminophen/ Hydrocodone Bitart ([place] (5/325)) 1 tab Q4H PRN PO MODERATE PAIN LEVEL 4-6; Start 03/09/19 at 06:00 Hydromorphone HCl (Dilaudid) 0.5 mg Q3H PRN IV SEVERE PAIN LEVEL 7-10; Start 03/09/19 at 06:00 Insulin Aspart (Novolog Insulin Pen) NOVOLOG *MILD* ALGORI... Q6 SC Last administered on 03/14/19at 12:13; Admin Dose 1 UNIT; Start 03/09/19 at 06:00 Piperacillin Sod/ Tazobactam Sod 100 ml @ 200 mls/hr Q6 IVPB Last administered on 03/14/19at 12:13; Admin Dose 200 MLS/HR; Start 03/09/19 at 08:00 Miscellaneous Information 1 ea NOTE XX ; Start 03/09/19 at 06:30 Glucose (Glutose) 15 gm Q15M PRN PO DECREASED GLUCOSE; Start 03/09/19 at 06:30 Glucose (Glutose) 22.5 gm Q15M PRN PO DECREASED GLUCOSE; Start 03/09/19 at 06:30 Dextrose (D50w Syringe) 25 ml Q15M PRN IV DECREASED GLUCOSE; Start 03/09/19 at 06:30 Dextrose (D50w Syringe) 50 ml Q15M PRN IV DECREASED GLUCOSE; Start 03/09/19 at 06:30 Glucagon (Glucagen) 1 mg Q15M PRN IM DECREASED GLUCOSE; Start 03/09/19 at 06:30 Glucose (Glutose) 15 gm Q15M PRN BUCCAL DECREASED GLUCOSE; Start 03/09/19 at 06:30 Vancomycin HCl 1.25 gm/Sodium Chloride 250 ml @ 83.333 mls/ hr Q12H IVPB Last administered on 03/14/19at 16:31; Admin Dose 83.333 MLS/HR; Start 03/09/19 at 13:00 Miscellaneous Information (Pending [facility] Order For Wound Care) This patient mora... PRN PRN XX WOUND CARE; Start 03/09/19 at 12:00 Total Parenteral Nutrition 1,000 ml @ 80 mls/hr [id number] IV Last administered on 03/14/19at 05:50; Admin Dose 80 MLS/HR; Start 03/09/19 at 18:30 Enoxaparin Sodium (Lovenox) 40 mg DAILY SC Last administered on 03/14/19 09:12; Admin Dose 40 MG; Start 03/12/19 at 09:00 Alteplase, Recombinant (Cathflo (Activase)) 2 mg MAY REPEAT X1 PRN CATHETER IF CATHETER REMAINS OCCULUDED Last administered on 03/13/19 04:47; Admin Dose 2 MG; Start 03/12/19 at 19:30 Clonidine HCl (Catapres-Tts 2 Patch) 1 patch Q7D TRANSDERM Last administered on 03/13/19at 21:27; Admin Dose 1 PATCH; Start 03/13/19 at 20:30 Ann FERNANDEZ March 14, 2019 17:54
--- NOTE | 2019-03-14 18:40 | PN ---
Date/Time of Note Date/Time of Note DATE: 03/14/19 TIME: 18:35 Assessment/Plan VTE Prophylaxis Risk score (from Nsg)>0 risk: 1 SCD applied (from Nsg): Yes Pharmacological prophylaxis: LMWH Lines/Catheters IV Catheter Type (from Nrsg): PICC Line Central line still needed: Yes Urinary Cath still in place: No Reason Cath still needed: urinary retention Assessment/Plan Hospital Course Patient is comfortable on room air at rest continues on TPN continues on p.o. diet with poor appetite. Patient has right lung pleural effusion or empyema per CT after ultrasound-guided thoracentesis, pending cytology. Glucose level on BMP in the a.m. is inaccurate because it was drawn from the line where TPN is going, Accu-Chek is within normal limits, discussed with CATHERINE Bear in the morning. Assessment/Plan -Sepsis secondary to pneumonia, continue IV hydration, antibiotics per ID. Dr. Renner is following in infection disease consultation. -Right lower lobe pneumonia -Right lung pleural effusion or empyema, status post ultrasound-guided guided thoracentesis on 03/11/2019. Dr. Cardona is following in pulmonology consultation -Left upper extremity PICC line malfunction, resolved, venous Doppler is negative for DVT. -Chest pain with abnormal EKG, troponin is negative x3. Dr. Alejandro is following in cardiology consultation. -Stage III sigmoid colon cancer, status post surgery and chemo in 2018. -Chronic diastolic CHF -Paroxysmal atrial fibrillation, continue Lovenox. -Protein calorie malnutrition, continue TPN due to dehydration and malabsorption due to large ileostomy output. -History of anastomotic leak and intra-abdominal abscess, Status post laparotomy, washout of the peritoneal cavity, placement of a diverting loop ileostomy in right lower quadrant for protection of the anastomosis in the colorectal area on 02/11/[address] Art. Patient was on Levaquin and Flagyl at home. CT of the abdomen and pelvis on 03/11/2019 with near complete resolution of abscess. -History of open Reagan reversal and colorectal low pelvic anastomosis, segmental partial colectomy, and open incarcerated incisional and parastomal hernia repairs with mesh by Dr. Art on 01/21/2019. -Hx of Obstructive sleep apnea Further recommendations based on clinical course. Plan of care discussed with Dr. Fox. Result Diagram: 03/13/19 0444 03/14/19 0935 Results 24hrs Laboratory Tests Test 03/14/19 00:10 03/14/19 05:52 03/14/19 06:59 03/14/19 09:07 Bedside Glucose 130 128 182 Sodium Level 135 Potassium Level 4.6 Chloride Level 106 Carbon Dioxide Level 22 Anion Gap 7 Blood Urea Nitrogen 11 Creatinine 0.83 Est Glomerular > 60 Filtrat Rate mL/min Glucose Level 652 #*H Calcium Level 7.7 L Phosphorus Level 4.2 Magnesium Level 2.4 Test 03/14/19 09:35 03/14/19 12:11 03/14/19 14:28 03/14/19 17:29 Glucose Level 178 # Bedside Glucose 156 120 Vancomycin Level 10.7 Trough Exam/Review of Systems Exam Vitals Vital Signs Date Temp Pulse Resp B/P (MAP) Pulse Ox O2 O2 Flow FiO2 Time Delivery Rate 03/14/19 90 148/66 16:00 (93) 03/14/19 98.8 20 96 14:00 03/14/19 Room Air 02:00 Intake and Output 03/13/19 03/13/19 03/14/19 1515:00 23:00 07:00 IntakeIntake Total 350 ml 1400 ml 1450 ml OutputOutput Total 0 ml 1305 ml 1900 ml BalanceBalance 350 ml 95 ml -450 ml Exam Constitutional: alert, oriented Respiratory: diminished breath sounds Cardiovascular: nl pulses Gastrointestinal: soft, non-tender, other (Abdominal surgical incision, left lower quadrant drain) Musculoskeletal: nl extremities to inspection Extremities: normal pulses Neurological: nl mental status Skin: nl turgor Results Results 24hrs Laboratory Tests Test 03/14/19 00:10 03/14/19 05:52 03/14/19 06:59 03/14/19 09:07 Bedside Glucose 130 128 182 Sodium Level 135 Potassium Level 4.6 Chloride Level 106 Carbon Dioxide Level 22 Anion Gap 7 Blood Urea Nitrogen 11 Creatinine 0.83 Est Glomerular > 60 Filtrat Rate mL/min Glucose Level 652 #*H Calcium Level 7.7 L Phosphorus Level 4.2 Magnesium Level 2.4 Test 03/14/19 09:35 03/14/19 12:11 03/14/19 14:28 03/14/19 17:29 Glucose Level 178 # Bedside Glucose 156 120 Vancomycin Level 10.7 Trough Medications Medication Current Medications Vancomycin HCl (Vanco Iv Per Pharmacy) VANCOMYCIN PER PHARMACY PER PROTOCOL XX ; Start 03/09/19 at 06:00 Acetaminophen (Tylenol Tab) 650 mg Q4H PRN PO MILD PAIN(1-3)OR ELEVATED TEMP Last administered on 03/11/19at 20:41; Admin Dose 650 MG; Start 03/09/19 at 06:00 Acetaminophen/ Hydrocodone Bitart ([place] (5/325)) 1 tab Q4H PRN PO MODERATE PAIN LEVEL 4-6; Start 03/09/19 at 06:00 Hydromorphone HCl (Dilaudid) 0.5 mg Q3H PRN IV SEVERE PAIN LEVEL 7-10; Start 03/09/19 at 06:00 Insulin Aspart (Novolog Insulin Pen) NOVOLOG *MILD* ALGORI... Q6 SC Last administered on 03/14/19at 12:13; Admin Dose 1 UNIT; Start 03/09/19 at 06:00 Piperacillin Sod/ Tazobactam Sod 100 ml @ 200 mls/hr Q6 IVPB Last administered on 03/14/19at 12:13; Admin Dose 200 MLS/HR; Start 03/09/19 at 08:00 Miscellaneous Information 1 ea NOTE XX ; Start 03/09/19 at 06:30 Glucose (Glutose) 15 gm Q15M PRN PO DECREASED GLUCOSE; Start 03/09/19 at 06:30 Glucose (Glutose) 22.5 gm Q15M PRN PO DECREASED GLUCOSE; Start 03/09/19 at 06:30 Dextrose (D50w Syringe) 25 ml Q15M PRN IV DECREASED GLUCOSE; Start 03/09/19 at 06:30 Dextrose (D50w Syringe) 50 ml Q15M PRN IV DECREASED GLUCOSE; Start 03/09/19 at 06:30 Glucagon (Glucagen) 1 mg Q15M PRN IM DECREASED GLUCOSE; Start 03/09/19 at 06:30 Glucose (Glutose) 15 gm Q15M PRN BUCCAL DECREASED GLUCOSE; Start 03/09/19 at 06:30 Vancomycin HCl 1.25 gm/Sodium Chloride 250 ml @ 83.333 mls/ hr Q12H IVPB Last administered on 03/14/19at 16:31; Admin Dose 83.333 MLS/HR; Start 03/09/19 at 13:00 Miscellaneous Information [facility] This patient mora... PRN PRN XX WOUND CARE; Start 03/09/19 at 12:00 Total Parenteral Nutrition 1,000 ml @ 80 mls/hr [id number] IV Last administered on 03/14/19at 05:50; Admin Dose 80 MLS/HR; Start 03/09/19 at 18:30 Enoxaparin Sodium (Lovenox) 40 mg DAILY SC Last administered on 03/14/19at 09:12; Admin Dose 40 MG; Start 03/12/19 at 09:00 Alteplase, Recombinant (Cathflo (Activase)) 2 mg MAY REPEAT X1 PRN CATHETER IF CATHETER REMAINS OCCULUDED Last administered on 03/13/19at 04:47; Admin Dose 2 MG; Start 03/12/19 at 19:30 Clonidine HCl (Catapres-Tts 2 Patch) 1 patch Q7D TRANSDERM Last administered on 03/13/19at 21:27; Admin Dose 1 PATCH; Start 03/13/19 at 20:30 ODELL PACHECO March 14, 2019 18:40
--- NOTE | 2019-03-14 19:25 | CONS ---
Assessment/Plan Assessment/Plan Hospital Course (Demo Recall) IMPRESSION: 1. Chest pain, assess for acute coronary syndrome with chest pain being pleuritic at this time -neg trop x 3 2. Abnormal echocardiogram with nonspecific ST-T abnormalities, assess for acute coronary syndrome. 3. History of congestive heart failure, diastolic, by most recent echo with increased BNP at this time. Thus, possibly acute on chronic. 4. Right pleural effusion, status post thoracentesis. 5. Colon CA status post colectomy with colostomy complicated by previous abs cess requiring drainage. 6. Diabetes mellitus. 7. Fevers. 8. Urinary tract infection. 9. HTN Recc: -Continue TPN -Contiue abx's and f/u cx data -Continue clonidine TTS to improve BP Consultation Date/Type/Reason Admit Date/Time March 09, 2019 at 03:20 Initial Consult Date 03/10/19 Type of Consult Cardiology Reason for Consultation chest pain Requesting Provider: ANDREY ZHENG MD Date/Time of Note DATE: 03/14/19 TIME: 19:16 Exam/Review of Systems Vital Signs Vitals Vital Signs Date Temp Pulse Resp B/P (MAP) Pulse Ox O2 O2 Flow FiO2 Time Delivery Rate 03/14/19 90 148/66 16:00 (93) 03/14/19 98.8 20 96 14:00 03/14/19 Room Air 02:00 Intake and Output 03/13/19 03/13/19 03/14/19 1515:00 23:00 07:00 IntakeIntake Total 350 ml 1400 ml 1450 ml OutputOutput Total 0 ml 1305 ml 1900 ml BalanceBalance 350 ml 95 ml -450 ml Exam Exam Review of Systems: CONSTITUTIONAL: No fevers, chills. PULMONARY: No sob CARDIOVASCULAR: No chest pain/palpitations GASTROINTESTINAL: No nausea/vomiting. GENITOURINARY: No hematuria/dysuria. MUSCULOSKELETAL: No myagias/arthalgias. PSYCHIATRIC: The patient denies depression. NEUROLOGIC: No weakness Constitutional: alert Psych: no complaints Head: normocephalic ENMT: mucosa pink and moist Neck: jvd (9 cm water) Respiratory: diminished breath sounds Cardiovascular: regular rate and rhythm Gastrointestinal: soft, non-tender Musculoskeletal: muscle tone Extremities: edema (none) Neurological: other (no focal deficits) Labs Result Diagram: 03/13/19 0444 03/14/19 0935 Results 24hrs Laboratory Tests Test 03/14/19 00:10 03/14/19 05:52 03/14/19 06:59 03/14/19 09:07 Bedside Glucose 130 128 182 Sodium Level 135 Potassium Level 4.6 Chloride Level 106 Carbon Dioxide Level 22 Anion Gap 7 Blood Urea Nitrogen 11 Creatinine 0.83 Est Glomerular > 60 Filtrat Rate mL/min Glucose Level 652 #*H Calcium Level 7.7 L Phosphorus Level 4.2 Magnesium Level 2.4 Test 03/14/19 09:35 03/14/19 12:11 03/14/19 14:28 03/14/19 17:29 Glucose Level 178 # Bedside Glucose 156 120 Vancomycin Level 10.7 Trough Medications Medications Current Medications Vancomycin HCl (Vanco Iv Per Pharmacy) VANCOMYCIN PER PHARMACY PER PROTOCOL XX ; Start 03/09/19 at 06:00 Acetaminophen (Tylenol Tab) 650 mg Q4H PRN PO MILD PAIN(1-3)OR ELEVATED TEMP Last administered on 03/11/19at 20:41; Admin Dose 650 MG; Start 03/09/19 at 06:00 Acetaminophen/ Hydrocodone Bitart ([place] (5/325)) 1 tab Q4H PRN PO MODERATE PAIN LEVEL 4-6; Start 03/09/19 at 06:00 Hydromorphone HCl (Dilaudid) 0.5 mg Q3H PRN IV SEVERE PAIN LEVEL 7-10; Start 03/09/19 at 06:00 Insulin Aspart (Novolog Insulin Pen) NOVOLOG *MILD* ALGORI... Q6 SC Last administered on 03/14/19at 12:13; Admin Dose 1 UNIT; Start 03/09/19 at 06:00 Piperacillin Sod/ Tazobactam Sod 100 ml @ 200 mls/hr Q6 IVPB Last administered on 03/14/19at 18:43; Admin Dose 200 MLS/HR; Start 03/09/19 at 08:00 Miscellaneous Information 1 ea NOTE XX ; Start 03/09/19 at 06:30 Glucose (Glutose) 15 gm Q15M PRN PO DECREASED GLUCOSE; Start 03/09/19 at 06:30 Glucose (Glutose) 22.5 gm Q15M PRN PO DECREASED GLUCOSE; Start 03/09/19 at 06:30 Dextrose (D50w Syringe) 25 ml Q15M PRN IV DECREASED GLUCOSE; Start 03/09/19 at 06:30 Dextrose (D50w Syringe) 50 ml Q15M PRN IV DECREASED GLUCOSE; Start 03/09/19 at 06:30 Glucagon (Glucagen) 1 mg Q15M PRN IM DECREASED GLUCOSE; Start 03/09/19 at 06:30 Glucose (Glutose) 15 gm Q15M PRN BUCCAL DECREASED GLUCOSE; Start 03/09/19 at 06:30 Vancomycin HCl 1.25 gm/Sodium Chloride 250 ml @ 83.333 mls/ hr Q12H IVPB Last administered on 03/14/19 16:31; Admin Dose 83.333 MLS/HR; Start 03/09/19 at 13:00 Miscellaneous Information (Pending Santyl Order For Wound Care) This patient mora... PRN PRN XX WOUND CARE; Start 03/09/19 at 12:00 Total Parenteral Nutrition 1,000 ml @ 80 mls/hr [id number] IV Last administered on 03/14/19at 18:43; Admin Dose 80 MLS/HR; Start 03/09/19 at 18:30 Enoxaparin Sodium (Lovenox) 40 mg DAILY SC Last administered on 03/14/19at 09:12; Admin Dose 40 MG; Start 03/12/19 at 09:00 Alteplase, Recombinant (Cathflo (Activase)) 2 mg MAY REPEAT X1 PRN CATHETER IF CATHETER REMAINS OCCULUDED Last administered on 03/13/19at 04:47; Admin Dose 2 MG; Start 03/12/19 at 19:30 Clonidine HCl (Catapres-Tts 2 Patch) 1 patch Q7D TRANSDERM Last administered on 03/13/19at 21:27; Admin Dose 1 PATCH; Start 03/13/19 at 20:30 EUGENE ANDERSON March 14, 2019 19:25
[2019-03-14 20:00] VITALS: BP 157/82; PULSE 86
[2019-03-15] MEDS: PIPER-TAZO 3.375 GM IV (PMX) 100 ML IVPB SCH ×5 (00:08→23:28)
[2019-03-15] MEDS: VANCOMYCIN HCL 1.25 GM in SOD CHLORIDE 0.9% 250 ML IVPB SCH ×2 (00:48→14:17)
[2019-03-15 02:00] VITALS: BP 152/83; PULSE 89; RESP 18
[2019-03-15] MEDS: INSULIN ASPART [NOVOLOG] 3 ML PEN SC SCH ×5 (06:00→23:45)
[2019-03-15 08:00] VITALS: BP 155/85; PULSE 100; RESP 18
[2019-03-15] MEDS: ENOXAPARIN 40 MG/0.4 ML SYG SC SCH (08:23)
[2019-03-15] MEDS: TPN 1,000 ML IV SCH ×2 (10:56→23:47)
[2019-03-15 14:00] VITALS: BP 120/62; PULSE 90; RESP 18
--- NOTE | 2019-03-15 14:13 | CONS ---
Consult Date/Type/Reason Admit Date/Time March 09, 2019 at 03:20 Initial Consult Date 03/10/19 Type of Consult Pulmonary Requesting Provider: ANDREY ZHENG MD Date/Time of Note DATE: 03/15/19 TIME: 14:12 Subjective Patient is comfortable this morning no respiratory distress Objective Vital Signs Date Temp Pulse Resp B/P (MAP) Pulse Ox O2 O2 Flow FiO2 Time Delivery Rate 03/15/19 98.8 100 18 155/85 100 08:00 (108) 03/15/19 Room Air 02:00 Intake and Output 03/14/19 03/14/19 03/15/19 1515:00 23:00 07:00 IntakeIntake Total 450 ml 1730 ml 1550 ml OutputOutput Total 1400 ml 950 ml 2500 ml BalanceBalance -950 ml 780 ml -950 ml Exam GENERAL: VITAL SIGNS well-nourished well-developed gentleman: NECK: Supple. No JVD or lymphadenopathy. CARDIAC EXAM: S1, S2. No added sounds or murmurs. CHEST: Diminished air entry right base ABDOMEN: Soft, nontender. No guarding or rebound. EXTREMITIES: No cyanosis, clubbing or edema. NEUROLOGIC: Generalized weakness. No focal deficits Results/Medications Result Diagram: 03/13/19 0444 03/15/19 0538 Results 24 hrs Laboratory Tests Test 03/14/19 14:28 03/14/19 17:29 03/15/19 00:13 03/15/19 05:38 Vancomycin Level 10.7 Trough Bedside Glucose 120 125 Sodium Level 139 Potassium Level 3.7 Chloride Level 108 Carbon Dioxide Level 25 Anion Gap 6 Blood Urea Nitrogen 12 Creatinine 0.68 Est Glomerular > 60 Filtrat Rate mL/min Glucose Level 143 Calcium Level 8.8 Phosphorus Level 3.8 Magnesium Level 2.1 Test 03/15/19 06:13 03/15/19 12:20 Bedside Glucose 130 199 Medications Current Medications Vancomycin HCl (Vanco Iv Per Pharmacy) VANCOMYCIN PER PHARMACY PER PROTOCOL XX ; Start 03/09/19 at 06:00 Acetaminophen (Tylenol Tab) 650 mg Q4H PRN PO MILD PAIN(1-3)OR ELEVATED TEMP Last administered on 03/11/19at 20:41; Admin Dose 650 MG; Start 03/09/19 at 06:00 Acetaminophen/ Hydrocodone Bitart ([place] (5/325)) 1 tab Q4H PRN PO MODERATE PAIN LEVEL 4-6; Start 03/09/19 at 06:00 Hydromorphone HCl (Dilaudid) 0.5 mg Q3H PRN IV SEVERE PAIN LEVEL 7-10; Start 03/09/19 at 06:00 Insulin Aspart (Novolog Insulin Pen) NOVOLOG *MILD* ALGORI... Q6 SC Last administered on 03/15/19at 12:23; Admin Dose 2 UNIT; Start 03/09/19 at 06:00 Piperacillin Sod/ Tazobactam Sod 100 ml @ 200 mls/hr Q6 IVPB Last administered on 03/15/19at 12:21; Admin Dose 200 MLS/HR; Start 03/09/19 at 08:00 Miscellaneous Information 1 ea NOTE XX ; Start 03/09/19 at 06:30 Glucose (Glutose) 15 gm Q15M PRN PO DECREASED GLUCOSE; Start 03/09/19 at 06:30 Glucose (Glutose) 22.5 gm Q15M PRN PO DECREASED GLUCOSE; Start 03/09/19 at 06: 30 Dextrose (D50w Syringe) 25 ml Q15M PRN IV DECREASED GLUCOSE; Start 03/09/19 at 06:30 Dextrose (D50w Syringe) 50 ml Q15M PRN IV DECREASED GLUCOSE; Start 03/09/19 at 06:30 Glucagon (Glucagen) 1 mg Q15M PRN IM DECREASED GLUCOSE; Start 03/09/19 at 06:30 Glucose (Glutose) 15 gm Q15M PRN BUCCAL DECREASED GLUCOSE; Start 03/09/19 at 06:30 Vancomycin HCl 1.25 gm/Sodium Chloride 250 ml @ 83.333 mls/ hr Q12H IVPB Last administered on 03/15/19at 00:48; Admin Dose 83.333 MLS/HR; Start 03/09/19 at 13: 00 Miscellaneous Information (Pending [facility] Order For Wound Care) This patient mora... PRN PRN XX WOUND CARE; Start 03/09/19 at 12:00 Total Parenteral Nutrition 1,000 ml @ 80 mls/hr [id number] IV Last administered on 03/15/19at 10:56; Admin Dose 80 MLS/HR; Start 03/09/19 at 18:30 Enoxaparin Sodium (Lovenox) 40 mg DAILY SC Last administered on 03/15/19 08:23; Admin Dose 40 MG; Start 03/12/19 at 09:00 Alteplase, Recombinant (Cathflo (Activase)) 2 mg MAY REPEAT X1 PRN CATHETER IF CATHETER REMAINS OCCULUDED Last administered on 03/13/19at 04:47; Admin Dose 2 MG; Start 03/12/19 at 19:30 Clonidine HCl (Catapres-Tts 2 Patch) 1 patch Q7D TRANSDERM Last administered on 03/13/19at 21:27; Admin Dose 1 PATCH; Start 03/13/19 at 20:30 Assessment/Plan Hospital Course (Demo Recall) Assessment 1. Right pleural effusion loculated possibly parapneumonic 2 history of upper extremity deep vein thrombosis 3. History of colon cancer status post resection and chemotherapy. Postop ileus on TPN. Plan 1. Continue TPN. Consider initiation of p.o. diet per surgery. 2. Await pleural fluid cytology 3. Encourage out of bed 4. We will discuss decortication with family however given recent colon cancer surgery would hold off for a month or so. Consider DC planning once tolerating p.o. diet RA[facility] HER[facility]DEZ [facility] March 15, 2019 14:13
--- NOTE | 2019-03-15 17:23 | CONS ---
Assessment/Plan Assessment/Plan Hospital Course (Demo Recall) IMPRESSION: 1. Chest pain, assess for acute coronary syndrome with chest pain being pleuritic at this time -neg trop x 3 2. Abnormal echocardiogram with nonspecific ST-T abnormalities, assess for acute coronary syndrome. 3. History of congestive heart failure, diastolic, by most recent echo with increased BNP at this time. Thus, possibly acute on chronic. 4. Right pleural effusion, status post thoracentesis. 5. Colon CA status post colectomy with colostomy complicated by previous abs cess requiring drainage. 6. Diabetes mellitus. 7. Fevers. 8. Urinary tract infection. 9. HTN Recc: -Continue TPN -Contiue abx's and f/u cx data -Continue clonidine TTS and currently reasonable BP closely Consultation Date/Type/Reason Admit Date/Time March 09, 2019 at 03:20 Initial Consult Date 03/10/19 Type of Consult Cardiology Reason for Consultation chest pain Requesting Provider: ANDREY ZHENG MD Date/Time of Note DATE: 03/15/19 TIME: 17:22 Exam/Review of Systems Vital Signs Vitals Vital Signs Date Temp Pulse Resp B/P (MAP) Pulse Ox O2 O2 Flow FiO2 Time Delivery Rate 03/15/19 98.6 90 18 120/62 96 14:00 (81) 03/15/19 Room Air 02:00 Intake and Output 03/14/19 03/14/19 03/15/19 1515:00 23:00 07:00 IntakeIntake Total 450 ml 1730 ml 1550 ml OutputOutput Total 1400 ml 950 ml 2500 ml BalanceBalance -950 ml 780 ml -950 ml Exam Exam Review of Systems: CONSTITUTIONAL: No fevers, chills. PULMONARY: No sob CARDIOVASCULAR: No chest pain/palpitations GASTROINTESTINAL: colostomy GENITOURINARY: No hematuria/dysuria. MUSCULOSKELETAL: No myagias/arthalgias. PSYCHIATRIC: The patient denies depression. NEUROLOGIC: No weakness Constitutional: oriented Psych: no complaints Head: normocephalic ENMT: mucosa pink and moist Neck: supple, jvd (9 cm water) Respiratory: clear to auscultation Cardiovascular: regular rate and rhythm Gastrointestinal: soft, non-tender Musculoskeletal: muscle tone (normal) Extremities: edema (none) Neurological: other (No focal defiicts) Labs Result Diagram: 03/13/19 0444 03/15/19 0538 Results 24hrs Laboratory Tests Test 03/14/19 17:29 03/15/19 00:13 03/15/19 05:38 03/15/19 06:13 Bedside Glucose 120 125 130 Sodium Level 139 Potassium Level 3.7 Chloride Level 108 Carbon Dioxide Level 25 Anion Gap 6 Blood Urea Nitrogen 12 Creatinine 0.68 Est Glomerular > 60 Filtrat Rate mL/min Glucose Level 143 Calcium Level 8.8 Phosphorus Level 3.8 Magnesium Level 2.1 Test 03/15/19 12:20 Bedside Glucose 199 Medications Medications Current Medications Vancomycin HCl (Vanco Iv Per Pharmacy) VANCOMYCIN PER PHARMACY PER PROTOCOL XX ; Start 03/09/19 at 06:00 Acetaminophen (Tylenol Tab) 650 mg Q4H PRN PO MILD PAIN(1-3)OR ELEVATED TEMP Last administered on 03/11/19at 20:41; Admin Dose 650 MG; Start 03/09/19 at 06:00 Acetaminophen/ Hydrocodone Bitart ([place] (5/325)) 1 tab Q4H PRN PO MODERATE PAIN LEVEL 4-6; Start 03/09/19 at 06:00 Hydromorphone HCl (Dilaudid) 0.5 mg Q3H PRN IV SEVERE PAIN LEVEL 7-10; Start 03/09/19 at 06:00 Insulin Aspart (Novolog Insulin Pen) NOVOLOG *MILD* ALGORI... Q6 SC Last administered on 03/15/19at 12:23; Admin Dose 2 UNIT; Start 03/09/19 at 06:00 Piperacillin Sod/ Tazobactam Sod 100 ml @ 200 mls/hr Q6 IVPB Last administered on 03/15/19at 12:21; Admin Dose 200 MLS/HR; Start 03/09/19 at 08:00 Miscellaneous Information 1 ea NOTE XX ; Start 03/09/19 at 06:30 Glucose (Glutose) 15 gm Q15M PRN PO DECREASED GLUCOSE; Start 03/09/19 at 06:30 Glucose (Glutose) 22.5 gm Q15M PRN PO DECREASED GLUCOSE; Start 03/09/19 at 06:30 Dextrose (D50w Syringe) 25 ml Q15M PRN IV DECREASED GLUCOSE; Start 03/09/19 at 06:30 Dextrose (D50w Syringe) 50 ml Q15M PRN IV DECREASED GLUCOSE; Start 03/09/19 at 06:30 Glucagon (Glucagen) 1 mg Q15M PRN IM DECREASED GLUCOSE; Start 03/09/19 at 06:30 Glucose (Glutose) 15 gm Q15M PRN BUCCAL DECREASED GLUCOSE; Start 03/09/19 at 06:30 Vancomycin HCl 1.25 gm/Sodium Chloride 250 ml @ 83.333 mls/ hr Q12H IVPB Last administered on 03/15/19 14:17; Admin Dose 83.333 MLS/HR; Start 03/09/19 at 13:00 Miscellaneous Information (Pending Santyl Order For Wound Care) This patient mora... PRN PRN XX WOUND CARE; Start 03/09/19 at 12:00 Total Parenteral Nutrition 1,000 ml @ 80 mls/hr [id number] IV Last administered on 03/15/19at 10:56; Admin Dose 80 MLS/HR; Start 03/09/19 at 18:30 Enoxaparin Sodium (Lovenox) 40 mg DAILY SC Last administered on 03/15/19at 08:23; Admin Dose 40 MG; Start 03/12/19 at 09:00 Alteplase, Recombinant (Cathflo (Activase)) 2 mg MAY REPEAT X1 PRN CATHETER IF CATHETER REMAINS OCCULUDED Last administered on 03/13/19at 04:47; Admin Dose 2 MG; Start 03/12/19 at 19:30 Clonidine HCl (Catapres-Tts 2 Patch) 1 patch Q7D TRANSDERM Last administered on 03/13/19at 21:27; Admin Dose 1 PATCH; Start 03/13/19 at 20:30 EUGENE ANDERSON March 15, 2019 17:23
[2019-03-15] MEDS ORDERED: CLONIDINE 0.3 MG/24 HR PATCH TRANSDERM SCH (17:30)
[2019-03-15 17:45] VITALS: BP 147/86; PULSE 82
--- NOTE | 2019-03-15 19:02 | CONS ---
Assessment/Plan Assessment/Plan Hospital Course (Demo Recall) # sepsis, respiratory - persistent RLL infiltrate with complex pleural effusion - recurrent pleural effusion, follow up chest US on 02/17/2019 showed small R sided effusion. CXR 03/09/19 showed moderate R sided pleural effusion - s/p repeat R sided thoracentesis, exudative process as LDH was 607 - h/o R pleural effusion, exudative process, parapneumonic effusion LDH 1601 protein 3.2, no e/o malignancy on cytology - h/o R sided thoracentesis on 02/05/2019 - possibly residual intra-abdominal infection as CT on 03/11/2019 showed residual fat stranding throughout the abdomen and pelvis; wound culture grew Stenotrophomonas, CoNS, and scant Lactobacillus (possible colonizers) - h/o sepsis due to complicated intra-abdominal infection and pneumonia - VIJAY # GI, onc - residual fat stranding throughout the abdomen and pelvis on CT 03/11/2019 - s/p ex lap, washout of abdominal abscess, CLEVE, diverting loop ileostomy on 02/11/2019 - s/p open Reagan reversal and colorectal low pelvic anastomosis, segmental partial colectomy, and open incarcerated incisional and parastomal hernia repairs with mesh by Dr. Art on 01/21/2019 - h/o thrush, resolved - h/o follow up CT on 02/04/2019 did not identify definite point of leak--> anastomotic leak was identified on gastograffin - h/o CT guided drainage of abscess in LLQ on 02/01/2019 - h/o abdominal wound culture 01/30/19 and abscess culture 01/31/19 grew p seudomonas, joseline albicans and glabrata - h/o colostomy reversal - h/o stage III sigmoid colon cancer, status post prior colectomy/colostomy and chemo in 2018 # renal, cardiovascular - h/o recurrent acute kidney injury on chronic kidney disease - h/o acute on chronic diastolic CHF, improved - h/o atrial fibrillation with RVR, converted to SR - h/o hypertension - h/o left upper extremity DVT - h/o superficial thrombus in R cephalic vein in the forearm and in L cephalic vein in the antecubital fossa as visualized on NOY 02/05/2019 # other conditions - h/o R conjunctivitis, resolved after neomycin eye drop x 7 days - Of note: Pt previously took meropenem (01/30/2019-02/03/2019), metronidazole (02/04/2019-02/16/2019) and cefepime (02/04/2019-02/18/2019); Flagyl (02/24/19 - 03/08/19) and Levaquin ( - 03/08/19); s/p fluconazole Recommendations: - continue vancomycin and pip/tazo (restart 03/09/19-) empirically. Dr. Art is planning to keep the drainage catheter for approximately 7 more days and so antibiotics may be continued for the same duration management d/w Pt and his nurse Ev Consultation Date/Type/Reason Admit Date/Time March 09, 2019 at 03:20 Initial Consult Date 03/10/19 Type of Consult ID Requesting Provider: ANDREY ZHENG MD Date/Time of Note DATE: 03/15/19 TIME: 19:02 24 HR Interval Summary Constitutional: no complaints, poor po, other (no appetite) Detailed Summary Eyes: no complaints ENT: no complaints Respiratory: no complaints Cardiovascular: no complaints Gastrointestinal: passing stool (into a colostoomy bag) Genitourinary: no complaints Musculoskeletal: no complaints Skin: no complaints Neurologic: no complaints Exam/Review of Systems Exam Vitals Vital Signs Date Temp Pulse Resp B/P (MAP) Pulse Ox O2 O2 Flow FiO2 Time Delivery Rate 03/15/19 82 147/86 17:45 (106) 03/15/19 98.6 18 96 14:00 03/15/19 Room Air 02:00 Intake and Output 03/14/19 03/14/19 03/15/19 1515:00 23:00 07:00 IntakeIntake Total 450 ml 1730 ml 1550 ml OutputOutput Total 1400 ml 950 ml 2500 ml BalanceBalance -950 ml 780 ml -950 ml Constitutional: alert, oriented, well developed Psych: no complaints, nl mood/affect Head: normocephalic, atraumatic Eyes: nl conjunctiva, nl lids ENMT: nl external ears & nose, nl nasal mucosa & septum Neck: non-tender Respiratory: clear to auscultation, normal air movement Cardiovascular: regular rate and rhythm, nl pulses Gastrointestinal: soft, ascites Musculoskeletal: nl extremities to inspection Neurological: SCIENCE INTERN II-XII intact, nl mental status, nl speech, nl strength Skin: nl turgor; No rash or lesions Results Result Diagram: 03/13/19 0444 03/15/19 0538 Results 24hrs Laboratory Tests Test 03/15/19 00:13 03/15/19 05:38 03/15/19 06:13 03/15/19 12:20 Bedside Glucose 125 130 199 Sodium Level 139 Potassium Level 3.7 Chloride Level 108 Carbon Dioxide Level 25 Anion Gap 6 Blood Urea Nitrogen 12 Creatinine 0.68 Est Glomerular > 60 Filtrat Rate mL/min Glucose Level 143 Calcium Level 8.8 Phosphorus Level 3.8 Magnesium Level 2.1 Test 03/15/19 17:31 Bedside Glucose 114 Medications Medication Current Medications Vancomycin HCl (Vanco Iv Per Pharmacy) VANCOMYCIN PER PHARMACY PER PROTOCOL XX ; Start 03/09/19 at 06:00 Acetaminophen (Tylenol Tab) 650 mg Q4H PRN PO MILD PAIN(1-3)OR ELEVATED TEMP Last administered on 03/11/19at 20:41; Admin Dose 650 MG; Start 03/09/19 at 06:00 Acetaminophen/ Hydrocodone Bitart ([place] (5/325)) 1 tab Q4H PRN PO MODERATE PAIN LEVEL 4-6; Start 03/09/19 at 06:00 Hydromorphone HCl (Dilaudid) 0.5 mg Q3H PRN IV SEVERE PAIN LEVEL 7-10; Start 03/09/19 at 06:00 Insulin Aspart (Novolog Insulin Pen) NOVOLOG *MILD* ALGORI... Q6 SC Last administered on 03/15/19at 12:23; Admin Dose 2 UNIT; Start 03/09/19 at 06:00 Piperacillin Sod/ Tazobactam Sod 100 ml @ 200 mls/hr Q6 IVPB Last administered on 03/15/19at 17:40; Admin Dose 200 MLS/HR; Start 03/09/19 at 08:00 Miscellaneous Information 1 ea NOTE XX ; Start 03/09/19 at 06:30 Glucose (Glutose) 15 gm Q15M PRN PO DECREASED GLUCOSE; Start 03/09/19 at 06:30 Glucose (Glutose) 22.5 gm Q15M PRN PO DECREASED GLUCOSE; Start 03/09/19 at 06:30 Dextrose (D50w Syringe) 25 ml Q15M PRN IV DECREASED GLUCOSE; Start 03/09/19 at 06:30 Dextrose (D50w Syringe) 50 ml Q15M PRN IV DECREASED GLUCOSE; Start 03/09/19 at 06:30 Glucagon (Glucagen) 1 mg Q15M PRN IM DECREASED GLUCOSE; Start 03/09/19 at 06:30 Glucose (Glutose) 15 gm Q15M PRN BUCCAL DECREASED GLUCOSE; Start 03/09/19 at 06:30 Vancomycin HCl 1.25 gm/Sodium Chloride 250 ml @ 83.333 mls/ hr Q12H IVPB Last administered on 03/15/19at 14:17; Admin Dose 83.333 MLS/HR; Start 03/09/19 at 13:00 Miscellaneous Information (Pending Santyl Order For Wound Care) This patient mora... PRN PRN XX WOUND CARE; Start 03/09/19 at 12:00 Total Parenteral Nutrition 1,000 ml @ 80 mls/hr [id number] IV Last administered on 03/15/19at 10:56; Admin Dose 80 MLS/HR; Start 03/09/19 at 18:30 Enoxaparin Sodium (Lovenox) 40 mg DAILY SC Last administered on 03/15/19at 08:23; Admin Dose 40 MG; Start 03/12/19 at 09:00 Alteplase, Recombinant (Cathflo (Activase)) 2 mg MAY REPEAT X1 PRN CATHETER IF CATHETER REMAINS OCCULUDED Last administered on 03/13/19at 04:47; Admin Dose 2 MG; Start 03/12/19 at 19:30 Clonidine HCl (Catapres-Tts 3 Patch) 1 patch Q7D TRANSDERM Last administered on 03/15/19at 17:47; Admin Dose 1 PATCH; Start 03/15/19 at 17:30 MERCED ESCUDERO M.D. March 15, 2019 19:02
[2019-03-15 20:00] VITALS: BP 153/83; PULSE 82; RESP 18
[2019-03-16] MEDS: VANCOMYCIN HCL 1.25 GM in SOD CHLORIDE 0.9% 250 ML IVPB SCH ×2 (00:55→13:32)
[2019-03-16 02:01] VITALS: BP 142/79; PULSE 79; RESP 18
[2019-03-16] MEDS: PIPER-TAZO 3.375 GM IV (PMX) 100 ML IVPB SCH ×3 (05:48→17:51)
[2019-03-16] MEDS: INSULIN ASPART [NOVOLOG] 3 ML PEN SC SCH ×3 (05:59→17:41)
[2019-03-16 08:00] VITALS: BP 154/84; PULSE 75; RESP 18
[2019-03-16] MEDS: ENOXAPARIN 40 MG/0.4 ML SYG SC SCH (09:11)
--- NOTE | 2019-03-16 11:46 | CONS ---
Assessment/Plan Assessment/Plan Hospital Course (Demo Recall) 1. History of acute kidney injury. Renal function is improved. Continue to monitor. 2. Hypokalemia, improved. no labs today 3. Pleural effusion. Etiology may be infectious versus malignant. Continue to monitor. Consider thoracentesis. 4. History of colon cancer, status post resection. 5. Sepsis secondary to pneumonia. The patient is completing antibiotic course. 6. Nutrition. Continue TPN. 7. Diastolic heart failure. The patient is currently compensated. 8. History of atrial fibrillation. 9. History of hypertension. 10. History of deep vein thrombosis. 11. Status post exploratory laparotomy with abdominal washout. will see pt prn. please call with specific questions Consultation Date/Type/Reason Admit Date/Time March 09, 2019 at 03:20 Initial Consult Date 03/10/19 Requesting Provider: ANDREY ZHENG MD Date/Time of Note DATE: 03/16/19 TIME: 11:45 24 HR Interval Summary Free Text/Dictation denies shortness of breath, n/v adequate urine output d/w rn gen nad cv rrr pulm ctab abd soft, nd, nt +bs ext: no edema Exam/Review of Systems Exam Vitals Vital Signs Date Temp Pulse Resp B/P (MAP) Pulse Ox O2 O2 Flow FiO2 Time Delivery Rate 03/16/19 97.9 75 18 154/84 97 Room Air 08:00 (107) Intake and Output 03/15/19 03/15/19 03/16/19 1515:00 23:00 07:00 IntakeIntake Total 750 ml 1070 ml 2170 ml OutputOutput Total 675 ml 1755 ml 3500 ml BalanceBalance 75 ml -685 ml -1330 ml Results Result Diagram: 03/13/19 0444 03/15/19 0538 Results 24hrs Laboratory Tests Test 03/15/19 12:20 03/15/19 17:31 03/15/19 23:35 03/16/19 05:59 Bedside Glucose 199 114 150 119 Prealbumin 15.1 L Medications Medication Current Medications Vancomycin HCl (Vanco Iv Per Pharmacy) VANCOMYCIN PER PHARMACY PER PROTOCOL XX ; Start 03/09/19 at 06:00 Acetaminophen (Tylenol Tab) 650 mg Q4H PRN PO MILD PAIN(1-3)OR ELEVATED TEMP Last administered on 03/11/19at 20:41; Admin Dose 650 MG; Start 03/09/19 at 06:00 Acetaminophen/ Hydrocodone Bitart ([place] (5/325)) 1 tab Q4H PRN PO MODERATE PAIN LEVEL 4-6; Start 03/09/19 at 06:00 Hydromorphone HCl (Dilaudid) 0.5 mg Q3H PRN IV SEVERE PAIN LEVEL 7-10; Start 03/09/19 at 06:00 Insulin Aspart (Novolog Insulin Pen) NOVOLOG *MILD* ALGORI... Q6 SC Last administered on 03/15/19at 23:45; Admin Dose 1 UNIT; Start 03/09/19 at 06:00 Piperacillin Sod/ Tazobactam Sod 100 ml @ 200 mls/hr Q6 IVPB Last administered on 03/16/19at 05:48; Admin Dose 200 MLS/HR; Start 03/09/19 at 08:00 Miscellaneous Information 1 ea NOTE XX ; Start 03/09/19 at 06:30 Glucose (Glutose) 15 gm Q15M PRN PO DECREASED GLUCOSE; Start 03/09/19 at 06:30 Glucose (Glutose) 22.5 gm Q15M PRN PO DECREASED GLUCOSE; Start 03/09/19 at 06:30 Dextrose (D50w Syringe) 25 ml Q15M PRN IV DECREASED GLUCOSE; Start 03/09/19 at 06:30 Dextrose (D50w Syringe) 50 ml Q15M PRN IV DECREASED GLUCOSE; Start 03/09/19 at 06:30 Glucagon (Glucagen) 1 mg Q15M PRN IM DECREASED GLUCOSE; Start 03/09/19 at 06:30 Glucose (Glutose) 15 gm Q15M PRN BUCCAL DECREASED GLUCOSE; Start 03/09/19 at 06:30 Vancomycin HCl 1.25 gm/Sodium Chloride 250 ml @ 83.333 mls/ hr Q12H IVPB Last administered on 03/16/19at 00:55; Admin Dose 83.333 MLS/HR; Start 03/09/19 at 13:00 Miscellaneous Information ([facility]) This patient mora... PRN PRN XX WOUND CARE; Start 03/09/19 at 12:00 Total Parenteral Nutrition 1,000 ml @ 80 mls/hr [id number] IV Last administered on 03/15/19at 23:47; Admin Dose 80 MLS/HR; Start 03/09/19 at 18:30 Enoxaparin Sodium (Lovenox) 40 mg DAILY SC Last administered on 03/16/19at 09:11; Admin Dose 40 MG; Start 03/12/19 at 09:00 Alteplase, Recombinant (Cathflo (Activase)) 2 mg MAY REPEAT X1 PRN CATHETER IF CATHETER REMAINS OCCULUDED Last administered on 03/13/19at 04:47; Admin Dose 2 MG; Start 03/12/19 at 19:30 Clonidine HCl (Catapres-Tts 3 Patch) 1 patch Q7D TRANSDERM Last administered on 03/15/19at 17:47; Admin Dose 1 PATCH; Start 03/15/19 at 17:30 SANJU JOE MD Mar 16, 2019 11:46
--- NOTE | 2019-03-16 12:53 | PN ---
Date/Time of Note Date/Time of Note DATE: 03/16/19 TIME: 12:52 Assessment/Plan VTE Prophylaxis Risk score (from Ns)>0 risk: 8 SCD applied (from Ns): Yes Pharmacological prophylaxis: LMWH Lines/Catheters IV Catheter Type (from Nrs): Saline Lock Urinary Cath still in place: No Assessment/Plan Hospital Course -Sepsis secondary to pneumonia, continue IV hydration, antibiotics per ID. Dr. Renner is following in infection disease consultation. -Right lower lobe pneumonia -Right lung pleural effusion or empyema, status post ultrasound-guided guided thoracentesis on 03/11/2019. Dr. Cardona is following in pulmonology consultation -Left upper extremity PICC line malfunction, resolved, venous Doppler is negative for DVT. -Chest pain with abnormal EKG, troponin is negative x3. Dr. Alejandro is following in cardiology consultation. -Stage III sigmoid colon cancer, status post surgery and chemo in 2018. -Chronic diastolic CHF -Paroxysmal atrial fibrillation, continue Lovenox. -Protein calorie malnutrition, continue TPN due to dehydration and malabsorption due to large ileostomy output. -History of anastomotic leak and intra-abdominal abscess, Status post laparotomy, washout of the peritoneal cavity, placement of a diverting loop ileostomy in right lower quadrant for protection of the anastomosis in the colorectal area on 02/11/[address] Art. Patient was on Levaquin and Flagyl at home. CT of the abdomen and pelvis on 03/11/2019 with near complete resolution of abscess. -History of open Reagan reversal and colorectal low pelvic anastomosis, segmental partial colectomy, and open incarcerated incisional and parastomal hernia repairs with mesh by Dr. Art on 01/21/2019. -Hx of Obstructive sleep apnea Result Diagram: 03/13/19 0444 03/15/19 0538 Results 24hrs Laboratory Tests Test 03/15/19 17:31 03/15/19 23:35 03/16/19 05:59 03/16/19 12:07 Bedside Glucose 114 150 119 152 Prealbumin 15.1 L Subjective 24 Hr Interval Summary Free Text/Dictation Patient has no complaints Exam/Review of Systems Exam Vitals Vital Signs Date Temp Pulse Resp B/P (MAP) Pulse Ox O2 O2 Flow FiO2 Time Delivery Rate 03/16/19 97.9 75 18 154/84 97 Room Air 08:00 (107) Intake and Output 03/15/19 03/15/19 03/16/19 1515:00 23:00 07:00 IntakeIntake Total 750 ml 1070 ml 2170 ml OutputOutput Total 675 ml 1755 ml 3500 ml BalanceBalance 75 ml -685 ml -1330 ml Constitutional: well developed Head: normocephalic, atraumatic Neck: supple Respiratory: clear to auscultation Cardiovascular: regular rate and rhythm Gastrointestinal: soft, non-tender Extremities: normal pulses Results Results 24hrs Laboratory Tests Test 03/15/19 17:31 03/15/19 23:35 03/16/19 05:59 03/16/19 12:07 Bedside Glucose 114 150 119 152 Prealbumin 15.1 L Medications Medication Current Medications Vancomycin HCl (Vanco Iv Per Pharmacy) VANCOMYCIN PER PHARMACY PER PROTOCOL XX ; Start 03/09/19 at 06:00 Acetaminophen (Tylenol Tab) 650 mg Q4H PRN PO MILD PAIN(1-3)OR ELEVATED TEMP Last administered on 03/11/19at 20:41; Admin Dose 650 MG; Start 03/09/19 at 06:00 Acetaminophen/ Hydrocodone Bitart ([place] (5/325)) 1 tab Q4H PRN PO MODERATE PAIN LEVEL 4-6; Start 03/09/19 at 06:00 Hydromorphone HCl (Dilaudid) 0.5 mg Q3H PRN IV SEVERE PAIN LEVEL 7-10; Start 03/09/19 at 06:00 Insulin Aspart (Novolog Insulin Pen) NOVOLOG *MILD* ALGORI... Q6 SC Last administered on 03/16/19at 12:09; Admin Dose 1 UNIT; Start 03/09/19 at 06:00 Piperacillin Sod/ Tazobactam Sod 100 ml @ 200 mls/hr Q6 IVPB Last administered on 03/16/19at 12:09; Admin Dose 200 MLS/HR; Start 03/09/19 at 08:00 Miscellaneous Information 1 ea NOTE XX ; Start 03/09/19 at 06:30 Glucose (Glutose) 15 gm Q15M PRN PO DECREASED GLUCOSE; Start 03/09/19 at 06:30 Glucose (Glutose) 22.5 gm Q15M PRN PO DECREASED GLUCOSE; Start 03/09/19 at 06:30 Dextrose (D50w Syringe) 25 ml Q15M PRN IV DECREASED GLUCOSE; Start 03/09/19 at 06:30 Dextrose (D50w Syringe) 50 ml Q15M PRN IV DECREASED GLUCOSE; Start 03/09/19 at 06:30 Glucagon (Glucagen) 1 mg Q15M PRN IM DECREASED GLUCOSE; Start 03/09/19 at 06:30 Glucose (Glutose) 15 gm Q15M PRN BUCCAL DECREASED GLUCOSE; Start 03/09/19 at 06:30 Vancomycin HCl 1.25 gm/Sodium Chloride 250 ml @ 83.333 mls/ hr Q12H IVPB Last administered on 03/16/19at 00:55; Admin Dose 83.333 MLS/HR; Start 03/09/19 at 13:00 [facility]isc[facility] This patient mora... PRN PRN XX WOUND CARE; Start 03/09/19 at 12:00 Total Parenteral Nutrition 1,000 ml @ 80 mls/hr [id number] IV Last administered on 03/15/19at 23:47; Admin Dose 80 MLS/HR; Start 03/09/19 at 18:30 Enoxaparin Sodium (Lovenox) 40 mg DAILY SC Last administered on 03/16/19at 09:11; Admin Dose 40 MG; Start 03/12/19 at 09:00 Alteplase, Recombinant (Cathflo (Activase)) 2 mg MAY REPEAT X1 PRN CATHETER IF CATHETER REMAINS OCCULUDED Last administered on 03/13/19at 04:47; Admin Dose 2 MG; Start 03/12/19 at 19:30 Clonidine HCl (Catapres-Tts 3 Patch) 1 patch Q7D TRANSDERM Last administered on 03/15/19at 17:47; Admin Dose 1 PATCH; Start 03/15/19 at 17:30 YESSICA CLAYTON Mar 16, 2019 12:53
--- NOTE | 2019-03-16 13:06 | CONS ---
Consult Date/Type/Reason Admit Date/Time March 09, 2019 at 03:20 Initial Consult Date 03/10/19 Requesting Provider: ANDREY ZHENG MD Date/Time of Note DATE: 03/16/19 TIME: 13:05 Subjective NO acute events - pt comfortable - pain controlled - increased PO intake. ROS: No fever, no chills, no nausea, no vomiting, no diarrhea/constipation Objective Vitals Vital Signs Date Temp Pulse Resp B/P (MAP) Pulse Ox O2 O2 Flow FiO2 Time Delivery Rate 03/16/19 97.9 75 18 154/84 97 Room Air 08:00 (107) Intake and Output 03/15/19 03/15/19 03/16/19 1515:00 23:00 07:00 IntakeIntake Total 750 ml 1070 ml 2170 ml OutputOutput Total 675 ml 1755 ml 3500 ml BalanceBalance 75 ml -685 ml -1330 ml Exam General: WN/WD/NAD, AOx 3 HEENT: Unicetric/atraumatic/EOMI (follow commands) NECK: JVD elevated, no thyromegaly Lymph: no lymphadenopathy HEART: regular with no S3, II/ systolic murmur at apex LUNGS: Coarse sounds ABD: soft, NT, ND, +BS - post op changes : Intact Neuro: non focal SKIN: chronic changes EXT: trace edema Results/Medications Result Diagram: 03/13/19 0444 03/15/19 0538 Results 24 hrs Laboratory Tests Test 03/15/19 17:31 03/15/19 23:35 03/16/19 05:59 03/16/19 12:07 Bedside Glucose 114 150 119 152 Prealbumin 15.1 L Home Meds Active Scripts Lactose-Reduced Food (Ensure Original) 237 Ml Liquid, 237 ML PO AC A, #10 Prov:ODELL PACHECO 02/28/19 Diltiazem Hcl* (Cardizem CD*) 120 Mg Cap.sr.24h, 120 MG PO BID for 30 Days Prov:ODELL PACHECO 02/28/19 Atenolol* (Atenolol*) 50 Mg Tablet, 50 MG PO BID for 30 Days, TAB Prov:ODELL PACHECO 02/28/19 Reported Medications Apixaban* (Eliquis*) 5 Mg Tablet, 5 MG PO BID, TAB 11/02/18 Atorvastatin Calcium* (Atorvastatin Calcium*) 20 Mg Tablet, 20 MG PO QHS, #30 TAB 01/07/18 Discontinued Scripts Loperamide Hcl* (Loperamide Hcl*) 2 Mg Cap, 4 MG PO QID for 7 Days, CAP Prov:ODELL PACHECO 02/28/19 Medications Current Medications Vancomycin HCl (Vanco Iv Per Pharmacy) VANCOMYCIN PER PHARMACY PER PROTOCOL XX ; Start 03/09/19 at 06:00 Acetaminophen (Tylenol Tab) 650 mg Q4H PRN PO MILD PAIN(1-3)OR ELEVATED TEMP Last administered on 03/11/19at 20:41; Admin Dose 650 MG; Start 03/09/19 at 06:00 Acetaminophen/ Hydrocodone Bitart ([place] (5/325)) 1 tab Q4H PRN PO MODERATE PAIN LEVEL 4-6; Start 03/09/19 at 06:00 Hydromorphone HCl (Dilaudid) 0.5 mg Q3H PRN IV SEVERE PAIN LEVEL 7-10; Start 03/09/19 at 06:00 Insulin Aspart (Novolog Insulin Pen) NOVOLOG *MILD* ALGORI... Q6 SC Last administered on 03/16/19at 12:09; Admin Dose 1 UNIT; Start 03/09/19 at 06:00 Piperacillin Sod/ Tazobactam Sod 100 ml @ 200 mls/hr Q6 IVPB Last administered on 03/16/19at 12:09; Admin Dose 200 MLS/HR; Start 03/09/19 at 08:00 Miscellaneous Information 1 ea NOTE XX ; Start 03/09/19 at 06:30 Glucose (Glutose) 15 gm Q15M PRN PO DECREASED GLUCOSE; Start 03/09/19 at 06:30 Glucose (Glutose) 22.5 gm Q15M PRN PO DECREASED GLUCOSE; Start 03/09/19 at 06:30 Dextrose (D50w Syringe) 25 ml Q15M PRN IV DECREASED GLUCOSE; Start 03/09/19 at 06:30 Dextrose (D50w Syringe) 50 ml Q15M PRN IV DECREASED GLUCOSE; Start 03/09/19 at 06:30 Glucagon (Glucagen) 1 mg Q15M PRN IM DECREASED GLUCOSE; Start 03/09/19 at 06:30 Glucose (Glutose) 15 gm Q15M PRN BUCCAL DECREASED GLUCOSE; Start 03/09/19 at 06 :30 Vancomycin HCl 1.25 gm/Sodium Chloride 250 ml @ 83.333 mls/ hr Q12H IVPB Last administered on 03/16/19at 00:55; Admin Dose 83.333 MLS/HR; Start 03/09/19 at 13:00 Miscellaneous Information (Pending Santyl Order For Wound Care) This patient mora... PRN PRN XX WOUND CARE; Start 03/09/19 at 12:00 Total Parenteral Nutrition 1,000 ml @ 80 mls/hr [id number] IV Last administered on 03/15/19at 23:47; Admin Dose 80 MLS/HR; Start 03/09/19 at 18:30 Enoxaparin Sodium (Lovenox) 40 mg DAILY SC Last administered on 03/16/19at 09:11; Admin Dose 40 MG; Start 03/12/19 at 09:00 Alteplase, Recombinant (Cathflo (Activase)) 2 mg MAY REPEAT X1 PRN CATHETER IF CATHETER REMAINS OCCULUDED Last administered on 03/13/19at 04:47; Admin Dose 2 MG; Start 03/12/19 at 19:30 Clonidine HCl (Catapres-Tts 3 Patch) 1 patch Q7D TRANSDERM Last administered on 03/15/19at 17:47; Admin Dose 1 PATCH; Start 03/15/19 at 17:30 Assessment/Plan Hospital Course (Demo Recall) 1. Chest pain, assess for acute coronary syndrome with chest pain being pleuritic at this time, but patient does have an EKG analysis for acute coronary syndrome- r/o UT - doubt ischemia. NO new Sx., 2. Abnormal echocardiogram with nonspecific ST-T abnormalities, assess for acute coronary syndrome. 3. History of congestive heart failure, diastolic, by most recent echo with increased BNP at this time. Thus, possibly acute on chronic. Better now - stable fluid status. 4. Right pleural effusion, status post thoracentesis - improved symptoms now. 5. Colon CA status post colectomy with colostomy complicated by previous abscess requiring drainage. Defer to surgical team,. 6. Diabetes mellitus. 7. HTN - on high side - esperanza add Rx tomorrow if still high/ . SUSSY ANTHONY MD Mar 16, 2019 13:06
[2019-03-16] MEDS: TPN 1,000 ML IV SCH (13:37)
[2019-03-16 14:00] VITALS: BP 144/85; PULSE 84; RESP 18
--- NOTE | 2019-03-16 14:36 | CONS ---
Consult Date/Type/Reason Admit Date/Time March 09, 2019 at 03:20 Initial Consult Date 03/10/19 Type of Consultation: Pulm Requesting Provider: ANDREY ZHENG MD Date/Time of Note DATE: 03/16/19 TIME: 14:35 Subjective No events. Objective Vitals Vital Signs Date Temp Pulse Resp B/P (MAP) Pulse Ox O2 O2 Flow FiO2 Time Delivery Rate 03/16/19 97.9 75 18 154/84 97 Room Air 08:00 (107) Intake and Output 03/15/19 03/15/19 03/16/19 1515:00 23:00 07:00 IntakeIntake Total 750 ml 1070 ml 2170 ml OutputOutput Total 675 ml 1755 ml 3500 ml BalanceBalance 75 ml -685 ml -1330 ml Exam NECK: Supple. No JVD or lymphadenopathy. CARDIAC EXAM: S1, S2. No added sounds or murmurs. CHEST: Diminished air entry right base ABDOMEN: Soft, nontender. No guarding or rebound. EXTREMITIES: No cyanosis, clubbing or edema. NEUROLOGIC: Generalized weakness. No focal deficits Results/Medications Result Diagram: 03/13/19 0444 03/15/19 0538 Results 24 hrs Laboratory Tests Test 03/15/19 17:31 03/15/19 23:35 03/16/19 05:59 03/16/19 12:07 Bedside Glucose 114 150 119 152 Prealbumin 15.1 L Home Meds Active Scripts Lactose-Reduced Food (Ensure Original) 237 Ml Liquid, 237 ML PO AC A, #10 Prov:ODELL PACHECO 02/28/19 Diltiazem Hcl* (Cardizem CD*) 120 Mg Cap.sr.24h, 120 MG PO BID for 30 Days Prov:ODELL PACHECO 02/28/19 Atenolol* (Atenolol*) 50 Mg Tablet, 50 MG PO BID for 30 Days, TAB Prov:ODELL PACHECO 02/28/19 Reported Medications Apixaban* (Eliquis*) 5 Mg Tablet, 5 MG PO BID, TAB 11/02/18 Atorvastatin Calcium* (Atorvastatin Calcium*) 20 Mg Tablet, 20 MG PO QHS, #30 TAB 01/07/18 Discontinued Scripts Loperamide Hcl* (Loperamide Hcl*) 2 Mg Cap, 4 MG PO QID for 7 Days, CAP Prov:ODELL PACHECO 02/28/19 Medications Current Medications Vancomycin HCl (Vanco Iv Per Pharmacy) VANCOMYCIN PER PHARMACY PER PROTOCOL XX ; Start 03/09/19 at 06:00 Acetaminophen (Tylenol Tab) 650 mg Q4H PRN PO MILD PAIN(1-3)OR ELEVATED TEMP Last administered on 03/11/19at 20:41; Admin Dose 650 MG; Start 03/09/19 at 06:00 Acetaminophen/ Hydrocodone Bitart ([place] (5/325)) 1 tab Q4H PRN PO MODERATE PAIN LEVEL 4-6; Start 03/09/19 at 06:00 Hydromorphone HCl (Dilaudid) 0.5 mg Q3H PRN IV SEVERE PAIN LEVEL 7-10; Start 03/09/19 at 06:00 Insulin Aspart (Novolog Insulin Pen) NOVOLOG *MILD* ALGORI... Q6 SC Last administered on 03/16/19at 12:09; Admin Dose 1 UNIT; Start 03/09/19 at 06:00 Piperacillin Sod/ Tazobactam Sod 100 ml @ 200 mls/hr Q6 IVPB Last administered on 03/16/19at 12:09; Admin Dose 200 MLS/HR; Start 03/09/19 at 08:00 Miscellaneous Information 1 ea NOTE XX ; Start 03/09/19 at 06:30 Glucose (Glutose) 15 gm Q15M PRN PO DECREASED GLUCOSE; Start 03/09/19 at 06:30 Glucose (Glutose) 22.5 gm Q15M PRN PO DECREASED GLUCOSE; Start 03/09/19 at 06:30 Dextrose (D50w Syringe) 25 ml Q15M PRN IV DECREASED GLUCOSE; Start 03/09/19 at 06:30 Dextrose (D50w Syringe) 50 ml Q15M PRN IV DECREASED GLUCOSE; Start 03/09/19 at 06:30 Glucagon (Glucagen) 1 mg Q15M PRN IM DECREASED GLUCOSE; Start 03/09/19 at 06:30 Glucose (Glutose) 15 gm Q15M PRN BUCCAL DECREASED GLUCOSE; Start 03/09/19 at 06:30 Vancomycin HCl 1.25 gm/Sodium Chloride 250 ml @ 83.333 mls/ hr Q12H IVPB Last administered on 03/16/19 13:32; Admin Dose 83.333 MLS/HR; Start 03/09/19 at 13:00 Miscellaneous Information (Pending Santyl Order For Wound Care) This patient mora... PRN PRN XX WOUND CARE; Start 03/09/19 at 12:00 Total Parenteral Nutrition 1,000 ml @ 80 mls/hr [id number] IV Last administered on 03/16/19 13:37; Admin Dose 80 MLS/HR; Start 03/09/19 at 18:30 Enoxaparin Sodium (Lovenox) 40 mg DAILY SC Last administered on 03/16/19 09:11; Admin Dose 40 MG; Start 03/12/19 at 09:00 Alteplase, Recombinant (Cathflo (Activase)) 2 mg MAY REPEAT X1 PRN CATHETER IF CATHETER REMAINS OCCULUDED Last administered on 03/13/19 04:47; Admin Dose 2 MG; Start 03/12/19 at 19:30 Clonidine HCl (Catapres-Tts 3 Patch) 1 patch Q7D TRANSDERM Last administered on 03/15/19at 17:47; Admin Dose 1 PATCH; Start 03/15/19 at 17:30 Assessment/Plan Assessment/Plan (Daily) IMP: 1. Right pleural effusion loculated possibly parapneumonic 2 History of upper extremity deep vein thrombosis 3. History of colon cancer status post resection and chemotherapy. Postop ileus on TPN. RECS: 1. F/U pleural cytology 2. CXR in 2-3 days ADONAY COTTON MD Mar 16, 2019 14:36
[2019-03-16 20:00] VITALS: BP 138/74; PULSE 74; RESP 18
[2019-03-16 20:21] VITALS: BP 108/52; PULSE 108; RESP 20
--- NOTE | 2019-03-16 21:55 | PN ---
DATE: 03/16/2019 Status post diverting loop ileostomy for anastomotic leak after having had colostomy repaired and revision on the left side several weeks ago. The patient at this time was admitted for malfunctioning PICC line. SUBJECTIVE: Feels okay. Eating right, but appetite is not good. OBJECTIVE: GENERAL: Awake, alert, oriented. VITAL SIGNS: Temperature maximum 97.9, heart rate 75, respiration 18, blood pressure 154/84, saturation 97% room air. LABORATORY DATA: WBC 5000 with 77% segmented, hemoglobin 7.5, hematocrit 23.7. Chemistry, prealbumin is 15.1, which is low. CLINICAL EXAMINATION: HEART: Regular. LUNGS: Clear. ABDOMEN: Soft. Midline incision wound. Wide scar but is clean now. There is no evidence of gross infection over there. The ileostomy is functioning and the pigtail drain in the left lower quadrant is still there. There is minimal amount of drainage in the tubing. It is about 4 to 5 mL now per day, which looks purulent. Per Dr. Art, his decision was made to remove it when the patient comes for followup in the office. Otherwise, from abdominal surgery point of view, the patient is okay to be discharged and of course continue the medications as was prescribed by the infectious disease and also the TPN at home. The patient is being discharged to continue to follow visit Dr. Art in the office. Dictated By: LIAT ANDREW/MARIAN Conf#: [id number] DID#: [id number] MTDD
--- NOTE | 2019-03-16 23:42 | CONS ---
Assessment/Plan Assessment/Plan Hospital Course (Demo Recall) # sepsis, respiratory - persistent RLL infiltrate with complex pleural effusion, his resp status is stable - s/p recurrent pleural effusion, follow up chest US on 02/17/2019 showed small R sided effusion. CXR 03/09/19 showed moderate R sided pleural effusion - s/p repeat R sided thoracentesis, exudative process as LDH was 607 - h/o R pleural effusion, exudative process, parapneumonic effusion LDH 1601 protein 3.2, no e/o malignancy on cytology - h/o R sided thoracentesis on 02/05/2019 - possibly residual intra-abdominal infection as CT on 03/11/2019 showed residual fat stranding throughout the abdomen and pelvis; wound culture grew Stenotrophomonas, CoNS, and scant Lactobacillus (possible colonizers) - h/o sepsis due to complicated intra-abdominal infection and pneumonia - VIJAY # GI, onc - s/p residual fat stranding throughout the abdomen and pelvis on CT 03/11/2019 - s/p ex lap, washout of abdominal abscess, CLEVE, diverting loop ileostomy on 02/11/2019 - s/p open Reagan reversal and colorectal low pelvic anastomosis, segmental partial colectomy, and open incarcerated incisional and parastomal hernia repairs with mesh by Dr. Art on 01/21/2019 - h/o thrush, resolved - h/o follow up CT on 02/04/2019 did not identify definite point of leak--> anastomotic leak was identified on gastograffin - h/o CT guided drainage of abscess in LLQ on 02/01/2019 - h/o abdominal wound culture 01/30/19 and abscess culture 01/31/19 grew pseudomonas, joseline albicans and glabrata - h/o colostomy reversal - h/o stage III sigmoid colon cancer, status post prior colectomy/colostomy and chemo in 2018 # renal, cardiovascular - h/o recurrent acute kidney injury on chronic kidney disease - h/o acute on chronic diastolic CHF, improved - h/o atrial fibrillation with RVR, converted to SR - h/o hypertension - h/o left upper extremity DVT - h/o superficial thrombus in R cephalic vein in the forearm and in L cephalic vein in the antecubital fossa as visualized on NOY 02/05/2019 # other conditions - h/o R conjunctivitis, resolved after neomycin eye drop x 7 days - Of note: Pt previously took meropenem (01/30/2019-02/03/2019), metronidazole (02/04/2019-02/16/2019) and cefepime (02/04/2019-02/18/2019); Flagyl (02/24/19 - 03/08/19) and Levaquin ( - 03/08/19); s/p fluconazole recommendations: - complete vancomycin and pip/tazo (restart 03/09/19-) today and then monitor Pt off systemic antibiotics management d/w Pt, his brother and sister in law the total time I took to care for this Pt today was 45 min Consultation Date/Type/Reason Admit Date/Time March 09, 2019 at 03:20 Initial Consult Date 03/10/19 Type of Consult ID Requesting Provider: ANDREY ZHENG MD Date/Time of Note DATE: 03/16/19 TIME: 23:42 24 HR Interval Summary Constitutional: improved Detailed Summary Eyes: no complaints ENT: no complaints Respiratory: no complaints Cardiovascular: no complaints Gastrointestinal: no complaints, passing stool (into a colostomy bag) Genitourinary: no complaints Musculoskeletal: no complaints Skin: no complaints Neurologic: no complaints Exam/Review of Systems Exam Vitals Vital Signs Date Temp Pulse Resp B/P (MAP) Pulse Ox O2 O2 Flow FiO2 Time Delivery Rate 03/16/19 98.6 74 18 138/74 97 20:00 (95) 03/16/19 Room Air 14:00 Intake and Output 03/15/19 03/15/19 03/16/19 1515:00 23:00 07:00 IntakeIntake Total 750 ml 1070 ml 2170 ml OutputOutput Total 675 ml 1755 ml 3500 ml BalanceBalance 75 ml -685 ml -1330 ml Constitutional: alert, oriented, well developed Psych: no complaints, nl mood/affect Head: normocephalic, atraumatic Eyes: nl conjunctiva, nl lids, nl sclera ENMT: nl external ears & nose, nl nasal mucosa & septum, mucosa pink and moist Neck: supple, non-tender Respiratory: clear to auscultation, normal air movement Cardiovascular: regular rate and rhythm, nl pulses Gastrointestinal: soft, non-tender, surgical scars, other (+colostomy bag); No distended Musculoskeletal: nl extremities to inspection Extremities: No edema Results Result Diagram: 03/13/19 0444 03/15/19 0538 Results 24hrs Laboratory Tests Test 03/16/19 05:59 03/16/19 12:07 03/16/19 17:38 Bedside Glucose 119 152 172 Prealbumin 15.1 L Medications Medication Current Medications Vancomycin HCl (Vanco Iv Per Pharmacy) VANCOMYCIN PER PHARMACY PER PROTOCOL XX ; Start 03/09/19 at 06:00 Acetaminophen (Tylenol Tab) 650 mg Q4H PRN PO MILD PAIN(1-3)OR ELEVATED TEMP Last administered on 03/11/19at 20:41; Admin Dose 650 MG; Start 03/09/19 at 06:00 Acetaminophen/ Hydrocodone Bitart ([place] (5/325)) 1 tab Q4H PRN PO MODERATE PAIN LEVEL 4-6; Start 03/09/19 at 06:00 Hydromorphone HCl (Dilaudid) 0.5 mg Q3H PRN IV SEVERE PAIN LEVEL 7-10; Start 03/09/19 at 06:00 Insulin Aspart (Novolog Insulin Pen) NOVOLOG *MILD* ALGORI... Q6 SC Last administered on 03/16/19at 17:41; Admin Dose 1 UNIT; Start 03/09/19 at 06:00 Piperacillin Sod/ Tazobactam Sod 100 ml @ 200 mls/hr Q6 IVPB Last administered on 03/16/19at 17:51; Admin Dose 200 MLS/HR; Start 03/09/19 at 08:00 Miscellaneous Information 1 ea NOTE XX ; Start 03/09/19 at 06:30 Glucose (Glutose) 15 gm Q15M PRN PO DECREASED GLUCOSE; Start 03/09/19 at 06:30 Glucose (Glutose) 22.5 gm Q15M PRN PO DECREASED GLUCOSE; Start 03/09/19 at 06:30 Dextrose (D50w Syringe) 25 ml Q15M PRN IV DECREASED GLUCOSE; Start 03/09/19 at 06:30 Dextrose (D50w Syringe) 50 ml Q15M PRN IV DECREASED GLUCOSE; Start 03/09/19 at 06:30 Glucagon (Glucagen) 1 mg Q15M PRN IM DECREASED GLUCOSE; Start 03/09/19 at 06:30 Glucose (Glutose) 15 gm Q15M PRN BUCCAL DECREASED GLUCOSE; Start 03/09/19 at 06:30 Vancomycin HCl 1.25 gm/Sodium Chloride 250 ml @ 83.333 mls/ hr Q12H IVPB Last administered on 03/16/19at 13:32; Admin Dose 83.333 MLS/HR; Start 03/09/19 at 13:00 Miscellaneous Information (Pending Santyl Order For Wound Care) This patient mora... PRN PRN XX WOUND CARE; Start 03/09/19 at 12:00 Total Parenteral Nutrition 1,000 ml @ 80 mls/hr [id number] IV Last administered on 03/16/19at 13:37; Admin Dose 80 MLS/HR; Start 03/09/19 at 18:30 Enoxaparin Sodium (Lovenox) 40 mg DAILY SC Last administered on 03/16/19at 09:11; Admin Dose 40 MG; Start 03/12/19 at 09:00 Alteplase, Recombinant (Cathflo (Activase)) 2 mg MAY REPEAT X1 PRN CATHETER IF CATHETER REMAINS OCCULUDED Last administered on 03/13/19at 04:47; Admin Dose 2 MG; Start 03/12/19 at 19:30 Clonidine HCl (Catapres-Tts 3 Patch) 1 patch Q7D TRANSDERM Last administered on 03/15/19at 17:47; Admin Dose 1 PATCH; Start 03/15/19 at 17:30 MERCED ESCUDERO M.D. Mar 16, 2019 23:42
[2019-03-17] MEDS: PIPER-TAZO 3.375 GM IV (PMX) 100 ML IVPB SCH (00:58)
[2019-03-17] MEDS: TPN 1,000 ML IV SCH ×2 (02:14→15:02)
[2019-03-17] MEDS: INSULIN ASPART [NOVOLOG] 3 ML PEN SC SCH ×5 (06:00→23:18)
[2019-03-17 07:58] VITALS: BP 138/77; PULSE 67; RESP 17
[2019-03-17] MEDS: ENOXAPARIN 40 MG/0.4 ML SYG SC SCH (08:55)
--- NOTE | 2019-03-17 11:55 | PN ---
Date/Time of Note Date/Time of Note DATE: 03/17/19 TIME: 11:54 Assessment/Plan VTE Prophylaxis Risk score (from Ns)>0 risk: 7 SCD applied (from Ns): Yes Pharmacological prophylaxis: LMWH Lines/Catheters IV Catheter Type (from Nrs): Saline Lock Urinary Cath still in place: No Assessment/Plan Hospital Course -Sepsis secondary to pneumonia, continue IV hydration, antibiotics per ID. Dr. Renner is following in infection disease consultation. -Right lower lobe pneumonia -Right lung pleural effusion or empyema, status post ultrasound-guided guided thoracentesis on 03/11/2019. Dr. Cardona is following in pulmonology consultation -Left upper extremity PICC line malfunction, resolved, venous Doppler is negative for DVT. -Chest pain with abnormal EKG, troponin is negative x3. Dr. Alejandro is following in cardiology consultation. -Stage III sigmoid colon cancer, status post surgery and chemo in 2018. -Chronic diastolic CHF -Paroxysmal atrial fibrillation, continue Lovenox. -Protein calorie malnutrition, continue TPN due to dehydration and malabsorption due to large ileostomy output. -History of anastomotic leak and intra-abdominal abscess, Status post laparotomy, washout of the peritoneal cavity, placement of a diverting loop ileostomy in right lower quadrant for protection of the anastomosis in the colorectal area on 02/11/[address] Art. Patient was on Levaquin and Flagyl at home. CT of the abdomen and pelvis on 03/11/2019 with near complete resolution of abscess. -History of open Reagan reversal and colorectal low pelvic anastomosis, segmental partial colectomy, and open incarcerated incisional and parastomal hernia repairs with mesh by Dr. Art on 01/21/2019. -Hx of Obstructive sleep apnea Result Diagram: 03/17/19 0553 03/15/19 0538 Results 24hrs Laboratory Tests Test 03/16/19 12:07 03/16/19 17:38 03/17/19 00:54 03/17/19 05:53 Bedside Glucose 152 172 137 White Blood Count 4.4 L Red Blood Count 3.82 #L Hemoglobin 10.3 #L Hematocrit 33.1 #L Mean Corpuscular Volume 86.6 Mean Corpuscular 27.0 L Hemoglobin Mean Corpuscular 31.1 L Hemoglobin Concent Red Cell Distribution 13.9 Width Platelet Count 326 Mean Platelet Volume 10.4 Immature Granulocytes % 0.500 H Neutrophils % 74.5 Lymphocytes % 10.7 L Monocytes % 9.3 Eosinophils % 4.8 Basophils % 0.2 Nucleated Red Blood 0.0 Cells % Immature Granulocytes # 0.020 Neutrophils # 3.3 Lymphocytes # 0.5 L Monocytes # 0.4 Eosinophils # 0.2 Basophils # 0.0 Nucleated Red Blood 0.0 Cells # Test 03/17/19 06:02 Bedside Glucose 113 Subjective 24 Hr Interval Summary Free Text/Dictation Patient denies any pain Exam/Review of Systems Exam Vitals Vital Signs Date Temp Pulse Resp B/P (MAP) Pulse Ox O2 O2 Flow FiO2 Time Delivery Rate 03/17/19 99.1 67 17 138/77 97 Room Air 07:58 (97) Intake and Output 03/16/19 03/16/19 03/17/19 1515:00 23:00 07:00 IntakeIntake Total 700 ml 1570 ml 1020 ml OutputOutput Total 1000 ml 2525 ml 600 ml BalanceBalance -300 ml -955 ml 420 ml Constitutional: well developed Head: normocephalic, atraumatic Neck: supple Respiratory: clear to auscultation Cardiovascular: regular rate and rhythm Gastrointestinal: soft, non-tender Extremities: normal pulses Results Results 24hrs Laboratory Tests Test 03/16/19 12:07 03/16/19 17:38 03/17/19 00:54 03/17/19 05:53 Bedside Glucose 152 172 137 White Blood Count 4.4 L Red Blood Count 3.82 #L Hemoglobin 10.3 #L Hematocrit 33.1 #L Mean Corpuscular Volume 86.6 Mean Corpuscular 27.0 L Hemoglobin Mean Corpuscular 31.1 L Hemoglobin Concent Red Cell Distribution 13.9 Width Platelet Count 326 Mean Platelet Volume 10.4 Immature Granulocytes % 0.500 H Neutrophils % 74.5 Lymphocytes % 10.7 L Monocytes % 9.3 Eosinophils % 4.8 Basophils % 0.2 Nucleated Red Blood 0.0 Cells % Immature Granulocytes # 0.020 Neutrophils # 3.3 Lymphocytes # 0.5 L Monocytes # 0.4 Eosinophils # 0.2 Basophils # 0.0 Nucleated Red Blood 0.0 Cells # Test 03/17/19 06:02 Bedside Glucose 113 Medications Medication Current Medications Acetaminophen (Tylenol Tab) 650 mg Q4H PRN PO MILD PAIN(1-3)OR ELEVATED TEMP Last administered on 03/11/19at 20:41; Admin Dose 650 MG; Start 03/09/19 at 06:00 Acetaminophen/ Hydrocodone Bitart ([place] (5/325)) 1 tab Q4H PRN PO MODERATE PAIN LEVEL 4-6; Start 03/09/19 at 06:00 Hydromorphone HCl (Dilaudid) 0.5 mg Q3H PRN IV SEVERE PAIN LEVEL 7-10; Start 03/09/19 at 06:00 Insulin Aspart (Novolog Insulin Pen) NOVOLOG *MILD* ALGORI... Q6 SC Last administered on 03/16/19at 17:41; Admin Dose 1 UNIT; Start 03/09/19 at 06:00 Miscellaneous Information 1 ea NOTE XX ; Start 03/09/19 at 06:30 Glucose (Glutose) 15 gm Q15M PRN PO DECREASED GLUCOSE; Start 03/09/19 at 06:30 Glucose (Glutose) 22.5 gm Q15M PRN PO DECREASED GLUCOSE; Start 03/09/19 at 06:30 Dextrose (D50w Syringe) 25 ml Q15M PRN IV DECREASED GLUCOSE; Start 03/09/19 at 06:30 Dextrose (D50w Syringe) 50 ml Q15M PRN IV DECREASED GLUCOSE; Start 03/09/19 at 06:30 Glucagon (Glucagen) 1 mg Q15M PRN IM DECREASED GLUCOSE; Start 03/09/19 at 06:30 Glucose (Glutose) 15 gm Q15M PRN BUCCAL DECREASED GLUCOSE; Start 03/09/19 at 06:30 Miscellaneous Information (Pending Santyl Order For Wound Care) This patient mora... PRN PRN XX WOUND CARE; Start 03/09/19 at 12:00 Total Parenteral Nutrition 1,000 ml @ 80 mls/hr [id number] IV Last administered on 03/17/19at 02:14; Admin Dose 80 MLS/HR; Start 03/09/19 at 18:30 Enoxaparin Sodium (Lovenox) 40 mg DAILY SC Last administered on 03/17/19at 08:55; Admin Dose 40 MG; Start 03/12/19 at 09:00 Alteplase, Recombinant (Cathflo (Activase)) 2 mg MAY REPEAT X1 PRN CATHETER IF CATHETER REMAINS OCCULUDED Last administered on 03/13/19at 04:47; Admin Dose 2 MG; Start 03/12/19 at 19:30 Clonidine HCl (Catapres-Tts 3 Patch) 1 patch Q7D TRANSDERM Last administered on 03/15/19at 17:47; Admin Dose 1 PATCH; Start 03/15/19 at 17:30 YESSICA CLAYTON Mar 17, 2019 11:55
[2019-03-17 14:00] VITALS: BP 148/76; PULSE 70; RESP 17
--- NOTE | 2019-03-17 14:47 | CONS ---
Assessment/Plan Assessment/Plan Hospital Course (Demo Recall) 1. Chest pain, assess for acute coronary syndrome with chest pain being pleuritic at this time, but patient does have an EKG analysis for acute coronary syndrome- r/o ND - doubt ischemia. NO new Sx., 2. Abnormal echocardiogram with nonspecific ST-T abnormalities, assess for acute coronary syndrome. 3. History of congestive heart failure, diastolic, by most recent echo with increased BNP at this time. Thus, possibly acute on chronic. Better now - stable fluid status. 4. Right pleural effusion, status post thoracentesis - improved symptoms now. 5. Colon CA status post colectomy with colostomy complicated by previous abscess requiring drainage. Defer to surgical team,. 6. Diabetes mellitus. 7. HTN - on high side - esperanza add Rx tomorrow if still high/ . Consultation Date/Type/Reason Admit Date/Time March 09, 2019 at 03:20 Initial Consult Date 03/10/19 Requesting Provider: ANDREY ZHENG MD Date/Time of Note DATE: 03/17/19 TIME: 14:47 24 HR Interval Summary Free Text/Dictation VS reviewed - stable. Exam/Review of Systems Exam Vitals Vital Signs Date Temp Pulse Resp B/P (MAP) Pulse Ox O2 O2 Flow FiO2 Time Delivery Rate 03/17/19 99.1 67 17 138/77 97 Room Air 07:58 (97) Intake and Output 03/16/19 03/16/19 03/17/19 1515:00 23:00 07:00 IntakeIntake Total 700 ml 1570 ml 1020 ml OutputOutput Total 1000 ml 2525 ml 600 ml BalanceBalance -300 ml -955 ml 420 ml Results Result Diagram: 03/17/19 0553 03/15/19 0538 Results 24hrs Laboratory Tests Test 03/16/19 17:38 03/17/19 00:54 03/17/19 05:53 03/17/19 06:02 Bedside Glucose 172 137 113 White Blood Count 4.4 L Red Blood Count 3.82 #L Hemoglobin 10.3 #L Hematocrit 33.1 #L Mean Corpuscular Volume 86.6 Mean Corpuscular 27.0 L Hemoglobin Mean Corpuscular 31.1 L Hemoglobin Concent Red Cell Distribution 13.9 Width Platelet Count 326 Mean Platelet Volume 10.4 Immature Granulocytes % 0.500 H Neutrophils % 74.5 Lymphocytes % 10.7 L Monocytes % 9.3 Eosinophils % 4.8 Basophils % 0.2 Nucleated Red Blood 0.0 Cells % Immature Granulocytes # 0.020 Neutrophils # 3.3 Lymphocytes # 0.5 L Monocytes # 0.4 Eosinophils # 0.2 Basophils # 0.0 Nucleated Red Blood 0.0 Cells # Test 03/17/19 12:26 Bedside Glucose 179 Medications Medication Current Medications Acetaminophen (Tylenol Tab) 650 mg Q4H PRN PO MILD PAIN(1-3)OR ELEVATED TEMP Last administered on 03/11/19at 20:41; Admin Dose 650 MG; Start 03/09/19 at 06:00 Acetaminophen/ Hydrocodone Bitart ([place] (5/325)) 1 tab Q4H PRN PO MODERATE PAIN LEVEL 4-6; Start 03/09/19 at 06:00 Hydromorphone HCl (Dilaudid) 0.5 mg Q3H PRN IV SEVERE PAIN LEVEL 7-10; Start 03/09/19 at 06:00 Insulin Aspart (Novolog Insulin Pen) NOVOLOG *MILD* ALGORI... Q6 SC Last administered on 03/17/19at 12:30; Admin Dose 1 UNIT; Start 03/09/19 at 06:00 Miscellaneous Information 1 ea NOTE XX ; Start 03/09/19 at 06:30 Glucose (Glutose) 15 gm Q15M PRN PO DECREASED GLUCOSE; Start 03/09/19 at 06:30 Glucose (Glutose) 22.5 gm Q15M PRN PO DECREASED GLUCOSE; Start 03/09/19 at 06:30 Dextrose (D50w Syringe) 25 ml Q15M PRN IV DECREASED GLUCOSE; Start 03/09/19 at 06:30 Dextrose (D50w Syringe) 50 ml Q15M PRN IV DECREASED GLUCOSE; Start 03/09/19 at 06:30 Glucagon (Glucagen) 1 mg Q15M PRN IM DECREASED GLUCOSE; Start 03/09/19 at 06:30 Glucose (Glutose) 15 gm Q15M PRN BUCCAL DECREASED GLUCOSE; Start 03/09/19 at 06:30 Miscellaneous Information (Pending [facility]) This patient h a... PRN PRN XX WOUND CARE; Start 03/09/19 at 12:00 Total Parenteral Nutrition 1,000 ml @ 80 mls/hr [id number] IV Last administered on 03/17/19 02:14; Admin Dose 80 MLS/HR; Start 03/09/19 at 18:30 Enoxaparin Sodium (Lovenox) 40 mg DAILY SC Last administered on 03/17/19at 08:55; Admin Dose 40 MG; Start 03/12/19 at 09:00 Alteplase, Recombinant (Cathflo (Activase)) 2 mg MAY REPEAT X1 PRN CATHETER IF C ATHETER REMAINS OCCULUDED Last administered on 03/13/19at 04:47; Admin Dose 2 MG; Start 03/12/19 at 19:30 Clonidine HCl (Catapres-Tts 3 Patch) 1 patch Q7D TRANSDERM Last administered on 03/15/19at 17:47; Admin Dose 1 PATCH; Start 03/15/19 at 17:30 SUSSY ANTHONY MD Mar 17, 2019 14:47
--- NOTE | 2019-03-17 16:38 | CONS ---
Consult Date/Type/Reason Admit Date/Time March 09, 2019 at 03:20 Initial Consult Date 03/10/19 Type of Consultation: Pulm Requesting Provider: ANDREY ZHENG MD Date/Time of Note DATE: 03/17/19 TIME: 16:37 Subjective No events overnight. Objective Vitals Vital Signs Date Temp Pulse Resp B/P (MAP) Pulse Ox O2 O2 Flow FiO2 Time Delivery Rate 03/17/19 99.1 67 17 138/77 97 Room Air 07:58 (97) Intake and Output 03/16/19 03/16/19 03/17/19 1515:00 23:00 07:00 IntakeIntake Total 700 ml 1570 ml 1020 ml OutputOutput Total 1000 ml 2525 ml 600 ml BalanceBalance -300 ml -955 ml 420 ml Exam NECK: Supple. No JVD or lymphadenopathy. CARDIAC EXAM: S1, S2. No added sounds or murmurs. CHEST: Diminished air entry right base ABDOMEN: Soft, nontender. No guarding or rebound. EXTREMITIES: No cyanosis, clubbing or edema. NEUROLOGIC: Generalized weakness. No focal deficits Results/Medications Result Diagram: 03/17/19 0553 03/15/19 0538 Results 24 hrs Laboratory Tests Test 03/16/19 17:38 03/17/19 00:54 03/17/19 05:53 03/17/19 06:02 Bedside Glucose 172 137 113 White Blood Count 4.4 L Red Blood Count 3.82 #L Hemoglobin 10.3 #L Hematocrit 33.1 #L Mean Corpuscular Volume 86.6 Mean Corpuscular 27.0 L Hemoglobin Mean Corpuscular 31.1 L Hemoglobin Concent Red Cell Distribution 13.9 Width Platelet Count 326 Mean Platelet Volume 10.4 Immature Granulocytes % 0.500 H Neutrophils % 74.5 Lymphocytes % 10.7 L Monocytes % 9.3 Eosinophils % 4.8 Basophils % 0.2 Nucleated Red Blood 0.0 Cells % Immature Granulocytes # 0.020 Neutrophils # 3.3 Lymphocytes # 0.5 L Monocytes # 0.4 Eosinophils # 0.2 Basophils # 0.0 Nucleated Red Blood 0.0 Cells # Test 03/17/19 12:26 Bedside Glucose 179 Home Meds Active Scripts Lactose-Reduced Food (Ensure Original) 237 Ml Liquid, 237 ML PO AC A, #10 Prov:ODELL PACHECO 02/28/19 Diltiazem Hcl* (Cardizem CD*) 120 Mg Cap.sr.24h, 120 MG PO BID for 30 Days Prov:ODELL PACHECO 02/28/19 Atenolol* (Atenolol*) 50 Mg Tablet, 50 MG PO BID for 30 Days, TAB Prov:ODELL PACHECO 02/28/19 Reported Medications Apixaban* (Eliquis*) 5 Mg Tablet, 5 MG PO BID, TAB 11/02/18 Atorvastatin Calcium* (Atorvastatin Calcium*) 20 Mg Tablet, 20 MG PO QHS, #30 TAB 01/07/18 Medications Current Medications Acetaminophen (Tylenol Tab) 650 mg Q4H PRN PO MILD PAIN(1-3)OR ELEVATED TEMP Last administered on 03/11/19at 20:41; Admin Dose 650 MG; Start 03/09/19 at 06:00 Acetaminophen/ Hydrocodone Bitart ([place] (5/325)) 1 tab Q4H PRN PO MODERATE PAIN LEVEL 4-6; Start 03/09/19 at 06:00 Hydromorphone HCl (Dilaudid) 0.5 mg Q3H PRN IV SEVERE PAIN LEVEL 7-10; Start 03/09/19 at 06:00 Insulin Aspart (Novolog Insulin Pen) NOVOLOG *MILD* ALGORI... Q6 SC Last administered on 03/17/19at 12:30; Admin Dose 1 UNIT; Start 03/09/19 at 06:00 Miscellaneous Information 1 ea NOTE XX ; Start 03/09/19 at 06:30 Glucose (Glutose) 15 gm Q15M PRN PO DECREASED GLUCOSE; Start 03/09/19 at 06:30 Glucose (Glutose) 22.5 gm Q15M PRN PO DECREASED GLUCOSE; Start 03/09/19 at 06: 30 Dextrose (D50w Syringe) 25 ml Q15M PRN IV DECREASED GLUCOSE; Start 03/09/19 at 06:30 Dextrose (D50w Syringe) 50 ml Q15M PRN IV DECREASED GLUCOSE; Start 03/09/19 at 06:30 Glucagon (Glucagen) 1 mg Q15M PRN IM DECREASED GLUCOSE; Start 03/09/19 at 06:30 Glucose (Glutose) 15 gm Q15M PRN BUCCAL DECREASED GLUCOSE; Start 03/09/19 at 06:30 Miscellaneous Information (Pending Santyl Order For Wound Care) This patient mora... PRN PRN XX WOUND CARE; Start 03/09/19 at 12:00 Total Parenteral Nutrition 1,000 ml @ 80 mls/hr [id number] IV Last administered on 03/17/19at 15:02; Admin Dose 80 MLS/HR; Start 03/09/19 at 18:30 Enoxaparin Sodium (Lovenox) 40 mg DAILY SC Last administered on 03/17/19at 08:55; Admin Dose 40 MG; Start 03/12/19 at 09:00 Alteplase, Recombinant (Cathflo (Activase)) 2 mg MAY REPEAT X1 PRN CATHETER IF CATHETER REMAINS OCCULUDED Last administered on 03/13/19at 04:47; Admin Dose 2 MG; Start 03/12/19 at 19:30 Clonidine HCl (Catapres-Tts 3 Patch) 1 patch Q7D TRANSDERM Last administered on 03/15/19at 17:47; Admin Dose 1 PATCH; Start 03/15/19 at 17:30 Assessment/Plan Assessment/Plan (Daily) IMP: 1. Right pleural effusion loculated possibly parapneumonic 2 History of upper extremity deep vein thrombosis 3. History of colon cancer status post resection and chemotherapy. Postop ileus on TPN. RECS: 1. F/U pleural cytology 2. CXR in 2 days ADONAY COTTON MD Mar 17, 2019 16:38
--- NOTE | 2019-03-17 18:08 | PN ---
DATE: 03/17/2019 HOSPITAL COURSE: The patient was admitted to the emergency room because of malfunctioning PICC line that was used at home for TPN and for giving IV antibiotics to the patient. The patient was admitted to medical service and necessary workup was done. Infectious disease consultation was obtained. Th e patient was started on IV antibiotics. The patient is on p.o. diet, but the intake is not good stewart ugh. The patient says that his appetite is poor. That is why the patient is on TPN and he was on TP N at home. When he is going to be discharged, he is going to go home with TPN at home. 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 Now, the abdomen is slightly protruded with fat and gas. Abdomen is soft. Midline wound has healed with large wide scar. Ileostomy is functioning, but the content of the ileostomy is mostly li quidish. There is a pigtail drain in the left pelvic and lower quadrant intraperitoneal area which h as been draining pus for long time, but gradually has decreased and nowadays is draining very minimal 2 to 3 mL of yellowish pus in 24 hours. PLAN: From surgical point of view, the patient can go home on and Dr. Art, the surgeon wants to see him in the office in a couple of weeks to remove the pigtail drain when he sees him in the office. M eanwhile, the medical service will continue the medical management and will decide when they want to discharge the patient home. Dictated By: LIAT LOOMIS MD PS/NTS Conf#: [id number] DID#: [id number] CC: KURT SEO MD; ANDREY ZHENG MD;*EndCC*
[2019-03-17 20:00] VITALS: BP 145/80; PULSE 78; RESP 18
[2019-03-18 02:00] VITALS: BP 129/72; PULSE 72; RESP 19
[2019-03-18] MEDS: TPN 1,000 ML IV SCH ×2 (03:04→18:26)
[2019-03-18] MEDS: INSULIN ASPART [NOVOLOG] 3 ML PEN SC SCH ×3 (05:56→18:28)
[2019-03-18 07:21] VITALS: BP 139/73; PULSE 67; RESP 16
[2019-03-18 07:35] VITALS: BP 124/75; PULSE 67; RESP 16
[2019-03-18] MEDS: ENOXAPARIN 40 MG/0.4 ML SYG SC SCH (08:55)
--- NOTE | 2019-03-18 13:00 | CONS ---
Consult Date/Type/Reason Admit Date/Time March 09, 2019 at 03:20 Initial Consult Date 03/10/19 Type of Consult Pulmonary Requesting Provider: ANDREY ZHENG MD Date/Time of Note DATE: 03/18/19 TIME: 12:58 Subjective Patient stable with no respiratory distress. Objective Vital Signs Date Temp Pulse Resp B/P (MAP) Pulse Ox O2 O2 Flow FiO2 Time Delivery Rate 03/18/19 98.3 67 16 124/75 97 Room Air 07:35 (91) Intake and Output 03/17/19 03/17/19 03/18/19 1515:00 23:00 07:00 IntakeIntake Total 1280 ml 360 ml 1250 ml OutputOutput Total 1050 ml 1905 ml 900 ml BalanceBalance 230 ml -1545 ml 350 ml Exam GENERAL: Well-nourished well-developed gentleman comfortable at rest VITAL SIGNS: per chart NECK: Supple. No JVD or lymphadenopathy. CARDIAC EXAM: S1, S2. No added sounds or murmurs. CHEST: Diminished air entry right base ABDOMEN: Soft, nontender. No guarding or rebound. EXTREMITIES: No cyanosis, clubbing or edema. NEUROLOGIC: Generalized weakness. No focal deficits. Results/Medications Result Diagram: 03/17/19 0553 03/18/19 0441 Results 24 hrs Laboratory Tests Test 03/17/19 17:18 03/17/19 23:14 03/18/19 04:41 03/18/19 05:56 Bedside Glucose 125 152 116 Sodium Level 139 Potassium Level 4.0 Chloride Level 106 Carbon Dioxide Level 25 Anion Gap 8 Blood Urea Nitrogen 17 Creatinine 0.65 Est Glomerular Filtrat > 60 Rate mL/min Glucose Level 120 Calcium Level 9.0 Phosphorus Level 4.0 Magnesium Level 2.1 Aspartate Amino 55 H Transf (AST/SGOT) Alanine 68 Aminotransferase (ALT/SG PT) Alkaline Phosphatase 291 H Triglycerides Level 89 Test 03/18/19 12:33 Bedside Glucose 153 Medications Current Medications Acetaminophen (Tylenol Tab) 650 mg Q4H PRN PO MILD PAIN(1-3)OR ELEVATED TEMP Last administered on 03/11/19at 20:41; Admin Dose 650 MG; Start 03/09/19 at 06:00 Acetaminophen/ Hydrocodone Bitart ([place] (5/325)) 1 tab Q4H PRN PO MODERATE PAIN LEVEL 4-6; Start 03/09/19 at 06:00 Hydromorphone HCl (Dilaudid) 0.5 mg Q3H PRN IV SEVERE PAIN LEVEL 7-10; Start 03/09/19 at 06:00 Insulin Aspart (Novolog Insulin Pen) NOVOLOG *MILD* ALGORI... Q6 SC Last administered on 03/17/19at 23:18; Admin Dose 2 UNIT; Start 03/09/19 at 06:00 Miscellaneous Information 1 ea NOTE XX ; Start 03/09/19 at 06:30 Glucose (Glutose) 15 gm Q15M PRN PO DECREASED GLUCOSE; Start 03/09/19 at 06:30 Glucose (Glutose) 22.5 gm Q15M PRN PO DECREASED GLUCOSE; Start 03/09/19 at 06:30 Dextrose (D50w Syringe) 25 ml Q15M PRN IV DECREASED GLUCOSE; Start 03/09/19 at 06:30 Dextrose (D50w Syringe) 50 ml Q15M PRN IV DECREASED GLUCOSE; Start 03/09/19 at 06:30 Glucagon (Glucagen) 1 mg Q15M PRN IM DECREASED GLUCOSE; Start 03/09/19 at 06:30 Glucose (Glutose) 15 gm Q15M PRN BUCCAL DECREASED GLUCOSE; Start 03/09/19 at 06:30 Miscellaneous Information (Pending [facility] Order For Wound Care) This patient mora... PRN PRN XX WOUND CARE; Start 03/09/19 at 12:00 Total Parenteral Nutrition 1,000 ml @ 80 mls/hr [id number] IV Last administered on 03/18/19at 03:04; Admin Dose 80 MLS/HR; Start 03/09/19 at 18:30 Enoxaparin Sodium (Lovenox) 40 mg DAILY SC Last administered on 03/18/19at 08:55; Admin Dose 40 MG; Start 03/12/19 at 09:00 Alteplase, Recombinant (Cathflo (Activase)) 2 mg MAY REPEAT X1 PRN CATHETER IF CATHETER REMAINS OCCULUDED Last administered on 03/13/19at 04:47; Admin Dose 2 MG; Start 03/12/19 at 19:30 Clonidine HCl (Catapres-Tts 3 Patch) 1 patch Q7D TRANSDERM Last administered on 03/15/19at 17:47; Admin Dose 1 PATCH; Start 03/15/19 at 17:30 Assessment/Plan Hospital Course (Demo Recall) IMP: 1. Right pleural effusion loculated possibly parapneumonic 2 History of upper extremity deep vein thrombosis 3. History of colon cancer status post resection and chemotherapy. Postop ileus on TPN. RECS: 1. Continue antibiotics per primary team 2. CXR in 2 days 3. Continues TPN [facility]DEZ [facility] Mar 18, 2019 13:00
--- NOTE | 2019-03-18 13:10 | CONS ---
Assessment/Plan Assessment/Plan Hospital Course (Demo Recall) IMPRESSION: 1. Chest pain, assess for acute coronary syndrome with chest pain being pleuritic at this time -neg trop x 3 2. Abnormal echocardiogram with nonspecific ST-T abnormalities, assess for acute coronary syndrome. 3. History of congestive heart failure, diastolic, by most recent echo with increased BNP at this time. Thus, possibly acute on chronic.-reasonable volume stATUS 4. Right pleural effusion, status post thoracentesis. 5. Colon CA status post colectomy with colostomy complicated by previous abscess requiring drainage. 6. Diabetes mellitus. 7. Fevers. 8. Urinary tract infection. 9. HTN-reasonable on TTS#3 Recc: -Continue TPN -Contiue abx's and f/u cx data -Continue clonidine TTS#3 WITH currently reasonable BP closely Consultation Date/Type/Reason Admit Date/Time March 09, 2019 at 03:20 Initial Consult Date 03/10/19 Type of Consult Cardiology Reason for Consultation chest pain Requesting Provider: ANDREY ZHENG MD Date/Time of Note DATE: 03/18/19 TIME: 13:08 Exam/Review of Systems Vital Signs Vitals Vital Signs Date Temp Pulse Resp B/P (MAP) Pulse Ox O2 O2 Flow FiO2 Time Delivery Rate 03/18/19 98.3 67 16 124/75 97 Room Air 07:35 (91) Intake and Output 03/17/19 03/17/19 03/18/19 1515:00 23:00 07:00 IntakeIntake Total 1280 ml 360 ml 1250 ml OutputOutput Total 1050 ml 1905 ml 900 ml BalanceBalance 230 ml -1545 ml 350 ml Exam Exam Review of Systems: CONSTITUTIONAL: No fevers, chills. PULMONARY: No sob CARDIOVASCULAR: No chest pain/palpitations GASTROINTESTINAL: No nausea/vomiting. GENITOURINARY: No hematuria/dysuria. MUSCULOSKELETAL: No myagias/arthalgias. PSYCHIATRIC: The patient denies depression. NEUROLOGIC: No weakness Constitutional: alert Psych: no complaints Head: normocephalic ENMT: mucosa pink and moist Neck: supple, jvd (9 cm water) Respiratory: clear to auscultation Cardiovascular: regular rate and rhythm Gastrointestinal: soft, non-tender, other (ostomy) Musculoskeletal: muscle tone (normal) Extremities: edema (none) Labs Result Diagram: 03/17/19 0553 03/18/19 0441 Results 24hrs Laboratory Tests Test 03/17/19 17:18 03/17/19 23:14 03/18/19 04:41 03/18/19 05:56 Bedside Glucose 125 152 116 Sodium Level 139 Potassium Level 4.0 Chloride Level 106 Carbon Dioxide Level 25 Anion Gap 8 Blood Urea Nitrogen 17 Creatinine 0.65 Est Glomerular Filtrat > 60 Rate mL/min Glucose Level 120 Calcium Level 9.0 Phosphorus Level 4.0 Magnesium Level 2.1 Aspartate Amino 55 H Transf (AST/SGOT) Alanine 68 Aminotransferase (ALT/SG PT) Alkaline Phosphatase 291 H Triglycerides Level 89 Test 03/18/19 12:33 Bedside Glucose 153 Medications Medications Current Medications Acetaminophen (Tylenol Tab) 650 mg Q4H PRN PO MILD PAIN(1-3)OR ELEVATED TEMP Last administered on 03/11/19at 20:41; Admin Dose 650 MG; Start 03/09/19 at 06:00 Acetaminophen/ Hydrocodone Bitart ([place] (5/325)) 1 tab Q4H PRN PO MODERATE PAIN LEVEL 4-6; Start 03/09/19 at 06:00 Hydromorphone HCl (Dilaudid) 0.5 mg Q3H PRN IV SEVERE PAIN LEVEL 7-10; Start 03/09/19 at 06:00 Insulin Aspart (Novolog Insulin Pen) NOVOLOG *MILD* ALGORI... Q6 SC Last administered on 03/18/19at 13:03; Admin Dose 1 UNIT; Start 03/09/19 at 06:00 Miscellaneous Information 1 ea NOTE XX ; Start 03/09/19 at 06:30 Glucose (Glutose) 15 gm Q15M PRN PO DECREASED GLUCOSE; Start 03/09/19 at 06:30 Glucose (Glutose) 22.5 gm Q15M PRN PO DECREASED GLUCOSE; Start 03/09/19 at 06:30 Dextrose (D50w Syringe) 25 ml Q15M PRN IV DECREASED GLUCOSE; Start 03/09/19 at 06:30 Dextrose (D50w Syringe) 50 ml Q15M PRN IV DECREASED GLUCOSE; Start 03/09/19 at 06:30 Glucagon (Glucagen) 1 mg Q15M PRN IM DECREASED GLUCOSE; Start 03/09/19 at 06:30 Glucose (Glutose) 15 gm Q15M PRN BUCCAL DECREASED GLUCOSE; Start 03/09/19 at 06:30 Miscellaneous Information ([facility] This patient mora... PRN PRN XX WOUND CARE; Start 03/09/19 at 12:00 Total Parenteral Nutrition 1,000 ml @ 80 mls/hr [id number] IV Last administered on 03/18/19at 03:04; Admin Dose 80 MLS/HR; Start 03/09/19 at 18:30 Enoxaparin Sodium (Lovenox) 40 mg DAILY SC Last administered on 03/18/19 08:55; Admin Dose 40 MG; Start 03/12/19 at 09:00 Alteplase, Recombinant (Cathflo (Activase)) 2 mg MAY REPEAT X1 PRN CATHETER IF CATHETER REMAINS OCCULUDED Last administered on 03/13/19at 04:47; Admin Dose 2 MG; Start 03/12/19 at 19:30 Clonidine HCl (Catapres-Tts 3 Patch) 1 patch Q7D TRANSDERM Last administered on 03/15/19at 17:47; Admin Dose 1 PATCH; Start 03/15/19 at 17:30 EUGENE ANDESRON Mar 18, 2019 13:10
--- NOTE | 2019-03-18 17:29 | CONS ---
Assessment/Plan Assessment/Plan Hospital Course (Demo Recall) # sepsis, respiratory - persistent RLL infiltrate with complex pleural effusion; resp status is stable on room air - s/p recurrent pleural effusion, follow up chest US on 02/17/2019 showed small R sided effusion. CXR 03/09/19 showed moderate R sided pleural effusion - s/p repeat R sided thoracentesis, exudative process as LDH was 607 - h/o R pleural effusion, exudative process, parapneumonic effusion LDH 1601 protein 3.2, no e/o malignancy on cytology - h/o R sided thoracentesis on 02/05/2019 - possibly residual intra-abdominal infection as CT on 03/11/2019 showed residual fat stranding throughout the abdomen and pelvis; wound culture grew Stenotrophomonas, CoNS, and scant Lactobacillus (possible colonizers) - h/o sepsis due to complicated intra-abdominal infection and pneumonia - VIJAY # GI, onc - s/p residual fat stranding throughout the abdomen and pelvis on CT 03/11/2019 - s/p ex lap, washout of abdominal abscess, CLEVE, diverting loop ileostomy on 02/11/2019 - s/p open Reagan reversal and colorectal low pelvic anastomosis, segmental partial colectomy, and open incarcerated incisional and parastomal hernia repairs with mesh by Dr. Art on 01/21/2019 - h/o thrush, resolved - h/o follow up CT on 02/04/2019 did not identify definite point of leak--> anastomotic leak was identified on gastograffin - h/o CT guided drainage of abscess in LLQ on 02/01/2019 - h/o abdominal wound culture 01/30/19 and abscess culture 01/31/19 grew pseudomonas, joseline albicans and glabrata - h/o colostomy reversal - h/o stage III sigmoid colon cancer, status post prior colectomy/colostomy and chemo in 2018 # renal, cardiovascular - h/o recurrent acute kidney injury on chronic kidney disease - h/o acute on chronic diastolic CHF, improved - h/o atrial fibrillation with RVR, converted to SR - h/o hypertension - h/o left upper extremity DVT - h/o superficial thrombus in R cephalic vein in the forearm and in L cephalic vein in the antecubital fossa as visualized on NOY 02/05/2019 # other conditions - h/o R conjunctivitis, resolved after neomycin eye drop x 7 days - Of note: Pt previously took meropenem (01/30/2019-02/03/2019), metronidazole (02/04/2019-02/16/2019) and cefepime (02/04/2019-02/18/2019); Flagyl (02/24/19 - 03/08/19) and Levaquin ( - 03/08/19); s/p fluconazole Recommendations: - monitor closely off systemic antibiotics; s/p vancomycin and pip/tazo (restart 03/09/19-03/17/19) Management d/w patient, [employer] Janelle and with Dr. Vázquez Consultation Date/Type/Reason Admit Date/Time March 09, 2019 at 03:20 Initial Consult Date 03/10/19 Type of Consult Infectious Disease Requesting Provider: ANDREY ZHENG MD Date/Time of Note DATE: 03/18/19 TIME: 17:27 24 HR Interval Summary Free Text/Dictation Pt states he is anxious to go home. No acute issues. Denies pain or SOB. Exam/Review of Systems Exam Vitals Vital Signs Date Temp Pulse Resp B/P (MAP) Pulse Ox O2 O2 Flow FiO2 Time Delivery Rate 03/18/19 98.3 67 16 124/75 97 Room Air 07:35 (91) Intake and Output 03/17/19 03/17/19 03/18/19 1515:00 23:00 07:00 IntakeIntake Total 1280 ml 360 ml 1250 ml OutputOutput Total 1050 ml 1905 ml 900 ml BalanceBalance 230 ml -1545 ml 350 ml Constitutional: alert, oriented, well developed, obese Psych: no complaints, nl mood/affect Head: normocephalic, atraumatic ENMT: nl external ears & nose, nl nasal mucosa & septum, mucosa pink and moist Neck: supple Respiratory: clear to auscultation, normal air movement Cardiovascular: regular rate and rhythm Gastrointestinal: soft, non-tender, bowel sounds, surgical scars, other (Ileostomy with liquid output); No distended Musculoskeletal: nl extremities to inspection Extremities: normal pulses; No edema Neurological: nl mental status, nl speech Skin: nl turgor Results Result Diagram: 03/17/19 0553 03/18/19 0441 Results 24hrs Laboratory Tests Test 03/17/19 23:14 03/18/19 04:41 03/18/19 05:56 03/18/19 12:33 Bedside Glucose 152 116 153 Sodium Level 139 Potassium Level 4.0 Chloride Level 106 Carbon Dioxide Level 25 Anion Gap 8 Blood Urea Nitrogen 17 Creatinine 0.65 Est Glomerular Filtrat > 60 Rate mL/min Glucose Level 120 Calcium Level 9.0 Phosphorus Level 4.0 Magnesium Level 2.1 Aspartate Amino 55 H Transf (AST/SGOT) Alanine 68 Aminotransferase (ALT/SG PT) Alkaline Phosphatase 291 H Triglycerides Level 89 Imaging Imaging CXR 03/14/2019: Right basilar infiltrate is mildly improved. Moderate right pleural effusion unchanged. Medications Medication Current Medications Acetaminophen (Tylenol Tab) 650 mg Q4H PRN PO MILD PAIN(1-3)OR ELEVATED TEMP Last administered on 03/11/19at 20:41; Admin Dose 650 MG; Start 03/09/19 at 06:00 Acetaminophen/ Hydrocodone Bitart ([place] (5/325)) 1 tab Q4H PRN PO MODERATE PAIN LEVEL 4-6; Start 03/09/19 at 06:00 Hydromorphone HCl (Dilaudid) 0.5 mg Q3H PRN IV SEVERE PAIN LEVEL 7-10; Start 03/09/19 at 06:00 Insulin Aspart (Novolog Insulin Pen) NOVOLOG *MILD* ALGORI... Q6 SC Last administered on 03/18/19at 13:03; Admin Dose 1 UNIT; Start 03/09/19 at 06:00 Miscellaneous Information 1 ea NOTE XX ; Start 03/09/19 at 06:30 Glucose (Glutose) 15 gm Q15M PRN PO DECREASED GLUCOSE; Start 03/09/19 at 06:30 Glucose (Glutose) 22.5 gm Q15M PRN PO DECREASED GLUCOSE; Start 03/09/19 at 06:30 Dextrose (D50w Syringe) 25 ml Q15M PRN IV DECREASED GLUCOSE; Start 03/09/19 at 06:30 Dextrose (D50w Syringe) 50 ml Q15M PRN IV DECREASED GLUCOSE; Start 03/09/19 at 06:30 Glucagon (Glucagen) 1 mg Q15M PRN IM DECREASED GLUCOSE; Start 03/09/19 at 06:30 Glucose (Glutose) 15 gm Q15M PRN BUCCAL DECREASED GLUCOSE; Start 03/09/19 at 06:30 Miscellaneous Information (Pending [facility] Order For Wound Care) This patient mora... PRN PRN XX WOUND CARE; Start 03/09/19 at 12:00 Total Parenteral Nutrition 1,000 ml @ 80 mls/hr [id number] IV Last administered on 03/18/19 03:04; Admin Dose 80 MLS/HR; Start 03/09/19 at 18:30 Enoxaparin Sodium (Lovenox) 40 mg DAILY SC Last administered on 03/18/19at 08:55; Admin Dose 40 MG; Start 03/12/19 at 09:00 Alteplase, Recombinant (Cathflo (Activase)) 2 mg MAY REPEAT X1 PRN CATHETER IF CATHETER REMAINS OCCULUDED Last administered on 03/13/19 04:47; Admin Dose 2 MG; Start 03/12/19 at 19:30 Clonidine HCl (Catapres-Tts 3 Patch) 1 patch Q7D TRANSDERM Last administered on 03/15/19at 17:47; Admin Dose 1 PATCH; Start 03/15/19 at 17:30 YVETTE BAÑUELOS NP Mar 18, 2019 17:29
--- NOTE | 2019-03-18 18:13 | PN ---
Date/Time of Note Date/Time of Note DATE: 03/18/19 TIME: 18:12 Assessment/Plan VTE Prophylaxis Risk score (from Nsg)>0 risk: 8 SCD applied (from Nsg): Yes Pharmacological prophylaxis: LMWH Lines/Catheters IV Catheter Type (from Nrsg): PICC Line Central line still needed: Yes Urinary Cath still in place: No Assessment/Plan Hospital Course Patient remains hemodynamically stable, afebrile, continued antibiotics for pneumonia, will obtain chest x-ray tomorrow. Assessment/Plan -Sepsis secondary to pneumonia, continue IV hydration, antibiotics per ID. Dr. Renner is following in infection disease consultation. -Right lower lobe pneumonia -Right lung pleural effusion or empyema, status post ultrasound-guided guided thoracentesis on 03/11/2019. Dr. Cardona is following in pulmonology consultation -Left upper extremity PICC line malfunction, resolved, venous Doppler is negative for DVT. -Chest pain with abnormal EKG, troponin is negative x3. Dr. Alejandro is following in cardiology consultation. -Stage III sigmoid colon cancer, status post surgery and chemo in 2018. -Chronic diastolic CHF -Paroxysmal atrial fibrillation, continue Lovenox. -Protein calorie malnutrition, continue TPN due to dehydration and malabsorption due to large ileostomy output. -History of anastomotic leak and intra-abdominal abscess, Status post laparotomy, washout of the peritoneal cavity, placement of a diverting loop ileostomy in right lower quadrant for protection of the anastomosis in the colorectal area on 02/11/[address] Art. Patient was on Levaquin and Flagyl at home. CT of the abdomen and pelvis on 03/11/2019 with near complete resolution of abscess. -History of open Reagan reversal and colorectal low pelvic anastomosis, segmental partial colectomy, and open incarcerated incisional and parastomal hernia repairs with mesh by Dr. Art on 01/21/2019. -Hx of Obstructive sleep apnea Further recommendations based on clinical course. Plan of care discussed with Dr. Fox. Result Diagram: 03/17/19 0553 03/18/19 0441 Results 24hrs Laboratory Tests Test 03/17/19 23:14 03/18/19 04:41 03/18/19 05:56 03/18/19 12:33 Bedside Glucose 152 116 153 Sodium Level 139 Potassium Level 4.0 Chloride Level 106 Carbon Dioxide Level 25 Anion Gap 8 Blood Urea Nitrogen 17 Creatinine 0.65 Est Glomerular Filtrat > 60 Rate mL/min Glucose Level 120 Calcium Level 9.0 Phosphorus Level 4.0 Magnesium Level 2.1 Aspartate Amino 55 H Transf (AST/SGOT) Alanine 68 Aminotransferase (ALT/SG PT) Alkaline Phosphatase 291 H Triglycerides Level 89 Test 03/18/19 17:50 Bedside Glucose 147 Exam/Review of Systems Exam Vitals Vital Signs Date Temp Pulse Resp B/P (MAP) Pulse Ox O2 O2 Flow FiO2 Time Delivery Rate 03/18/19 98.3 67 16 124/75 97 Room Air 07:35 (91) Intake and Output 03/17/19 03/17/19 03/18/19 1515:00 23:00 07:00 IntakeIntake Total 1280 ml 360 ml 1250 ml OutputOutput Total 1050 ml 1905 ml 900 ml BalanceBalance 230 ml -1545 ml 350 ml Exam Constitutional: alert, oriented Respiratory: diminished breath sounds Cardiovascular: nl pulses Gastrointestinal: soft, non-tender, other (Abdominal surgical incision, left lower quadrant drain) Musculoskeletal: nl extremities to inspection Extremities: normal pulses Neurological: nl mental status Skin: nl turgor Results Results 24hrs Laboratory Tests Test 03/17/19 23:14 03/18/19 04:41 03/18/19 05:56 03/18/19 12:33 Bedside Glucose 152 116 153 Sodium Level 139 Potassium Level 4.0 Chloride Level 106 Carbon Dioxide Level 25 Anion Gap 8 Blood Urea Nitrogen 17 Creatinine 0.65 Est Glomerular Filtrat > 60 Rate mL/min Glucose Level 120 Calcium Level 9.0 Phosphorus Level 4.0 Magnesium Level 2.1 Aspartate Amino 55 H Transf (AST/SGOT) Alanine 68 Aminotransferase (ALT/SG PT) Alkaline Phosphatase 291 H Triglycerides Level 89 Test 03/18/19 17:50 Bedside Glucose 147 Medications Medication Current Medications Acetaminophen (Tylenol Tab) 650 mg Q4H PRN PO MILD PAIN(1-3)OR ELEVATED TEMP Last administered on 03/11/19at 20:41; Admin Dose 650 MG; Start 03/09/19 at 06:00 Acetaminophen/ Hydrocodone Bitart ([place] (5/325)) 1 tab Q4H PRN PO MODERATE PAIN LEVEL 4-6; Start 03/09/19 at 06:00 Hydromorphone HCl (Dilaudid) 0.5 mg Q3H PRN IV SEVERE PAIN LEVEL 7-10; Start 03/09/19 at 06:00 Insulin Aspart (Novolog Insulin Pen) NOVOLOG *MILD* ALGORI... Q6 SC Last administered on 03/18/19 13:03; Admin Dose 1 UNIT; Start 03/09/19 at 06:00 Miscellaneous Information 1 ea NOTE XX ; Start 03/09/19 at 06:30 Glucose (Glutose) 15 gm Q15M PRN PO DECREASED GLUCOSE; Start 03/09/19 at 06:30 Glucose (Glutose) 22.5 gm Q15M PRN PO DECREASED GLUCOSE; Start 03/09/19 at 06:30 Dextrose (D50w Syringe) 25 ml Q15M PRN IV DECREASED GLUCOSE; Start 03/09/19 at 06:30 Dextrose (D50w Syringe) 50 ml Q15M PRN IV DECREASED GLUCOSE; Start 03/09/19 at 06:30 Glucagon (Glucagen) 1 mg Q15M PRN IM DECREASED GLUCOSE; Start 03/09/19 at 06:30 Glucose (Glutose) 15 gm Q15M PRN BUCCAL DECREASED GLUCOSE; Start 03/09/19 at 06:30 Miscellaneous Information (Pending Santyl Order For Wound Care) This patient mora... PRN PRN XX WOUND CARE; Start 03/09/19 at 12:00 Total Parenteral Nutrition 1,000 ml @ 80 mls/hr [id number] IV Last administered on 03/18/19 03:04; Admin Dose 80 MLS/HR; Start 03/09/19 at 18:30 Enoxaparin Sodium (Lovenox) 40 mg DAILY SC Last administered on 03/18/19 08:55; Admin Dose 40 MG; Start 03/12/19 at 09:00 Alteplase, Recombinant (Cathflo (Activase)) 2 mg MAY REPEAT X1 PRN CATHETER IF CATHETER REMAINS OCCULUDED Last administered on 03/13/19 04:47; Admin Dose 2 MG; Start 03/12/19 at 19:30 Clonidine HCl (Catapres-Tts 3 Patch) 1 patch Q7D TRANSDERM Last administered on 03/15/19 17:47; Admin Dose 1 PATCH; Start 03/15/19 at 17:30 ODELL PACHECO Mar 18, 2019 18:13
[2019-03-18 19:52] VITALS: BP 137/76; PULSE 68; RESP 20
[2019-03-19] MEDS: INSULIN ASPART [NOVOLOG] 3 ML PEN SC SCH ×4 (00:13→17:37)
[2019-03-19 02:23] VITALS: BP 123/71; PULSE 75; RESP 18
[2019-03-19] MEDS: TPN 1,000 ML IV SCH ×3 (06:25→19:40)
[2019-03-19 07:43] VITALS: BP 114/73; PULSE 73; RESP 16
[2019-03-19] MEDS: ENOXAPARIN 40 MG/0.4 ML SYG SC SCH (10:09)
--- NOTE | 2019-03-19 10:21 | CONS ---
Consultation Date/Type/Reason Admit Date/Time March 09, 2019 at 03:20 Initial Consult Date 03/10/19 Type of Consult Cardiology Requesting Provider: ANDREY ZHENG MD Date/Time of Note DATE: 03/19/19 TIME: 10:21 24 HR Interval Summary Free Text/Dictation VS reviewed - stable. Exam/Review of Systems Vital Signs Vitals Vital Signs Date Temp Pulse Resp B/P (MAP) Pulse Ox O2 O2 Flow FiO2 Time Delivery Rate 03/19/19 97.7 73 16 114/73 96 Room Air 07:43 (87) Intake and Output 03/18/19 03/18/19 03/19/19 1515:00 23:00 07:00 IntakeIntake Total 1900 ml 1440 ml 1200 ml OutputOutput Total 2150 ml 660 ml 1050 ml BalanceBalance -250 ml 780 ml 150 ml Labs Result Diagram: 03/17/19 0553 03/18/19 0441 Results 24hrs Laboratory Tests Test 03/18/19 12:33 03/18/19 17:50 03/18/19 20:34 03/19/19 00:10 Bedside Glucose 153 147 135 158 Test 03/19/19 06:24 Bedside Glucose 134 Medications Medications Current Medications Acetaminophen (Tylenol Tab) 650 mg Q4H PRN PO MILD PAIN(1-3)OR ELEVATED TEMP Last administered on 03/11/19at 20:41; Admin Dose 650 MG; Start 03/09/19 at 06:00 Acetaminophen/ Hydrocodone Bitart ([place] (5/325)) 1 tab Q4H PRN PO MODERATE PAIN LEVEL 4-6; Start 03/09/19 at 06:00 Hydromorphone HCl (Dilaudid) 0.5 mg Q3H PRN IV SEVERE PAIN LEVEL 7-10; Start 03/09/19 at 06:00 Insulin Aspart (Novolog Insulin Pen) NOVOLOG *MILD* ALGORI... Q6 SC Last administered on 03/19/19at 00:13; Admin Dose 1 UNIT; Start 03/09/19 at 06:00 Miscellaneous Information 1 ea NOTE XX ; Start 03/09/19 at 06:30 Glucose (Glutose) 15 gm Q15M PRN PO DECREASED GLUCOSE; Start 03/09/19 at 06:30 Glucose (Glutose) 22.5 gm Q15M PRN PO DECREASED GLUCOSE; Start 03/09/19 at 06:30 Dextrose (D50w Syringe) 25 ml Q15M PRN IV DECREASED GLUCOSE; Start 03/09/19 at 06:30 Dextrose (D50w Syringe) 50 ml Q15M PRN IV DECREASED GLUCOSE; Start 03/09/19 at 06:30 Glucagon (Glucagen) 1 mg Q15M PRN IM DECREASED GLUCOSE; Start 03/09/19 at 06:30 Glucose (Glutose) 15 gm Q15M PRN BUCCAL DECREASED GLUCOSE; Start 03/09/19 at 06:30 Miscellaneous Information (Pending Santyl Order For Wound Care) This patient mora... PRN PRN XX WOUND CARE; Start 03/09/19 at 12:00 Total Parenteral Nutrition 1,000 ml @ 80 mls/hr [id number] IV Last administered on 03/19/19at 06:25; Admin Dose 80 MLS/HR; Start 03/09/19 at 18:30 Enoxaparin Sodium (Lovenox) 40 mg DAILY SC Last administered on 03/19/19at 10:09; Admin Dose 40 MG; Start 03/12/19 at 09:00 Alteplase, Recombinant (Cathflo (Activase)) 2 mg MAY REPEAT X1 PRN CATHETER IF CATHETER REMAINS OCCULUDED Last administered on 03/13/19at 04:47; Admin Dose 2 MG; Start 03/12/19 at 19:30 Clonidine HCl (Catapres-Tts 3 Patch) 1 patch Q7D TRANSDERM Last administered on 03/15/19at 17:47; Admin Dose 1 PATCH; Start 03/15/19 at 17:30 SUSSY ANTHONY MD Mar 19, 2019 10:21
--- NOTE | 2019-03-19 13:46 | CONS ---
Assessment/Plan Assessment/Plan Hospital Course (Demo Recall) # sepsis, respiratory - persistent RLL infiltrate with complex pleural effusion; resp status is stable on room air - s/p recurrent pleural effusion, follow up chest US on 02/17/2019 showed small R sided effusion. CXR 03/09/19 showed moderate R sided pleural effusion - s/p repeat R sided thoracentesis, exudative process as LDH was 607 - h/o R pleural effusion, exudative process, parapneumonic effusion LDH 1601 protein 3.2, no e/o malignancy on cytology - h/o R sided thoracentesis on 02/05/2019 - possibly residual intra-abdominal infection as CT on 03/11/2019 showed residual fat stranding throughout the abdomen and pelvis; wound culture grew Stenotrophomonas, CoNS, and scant Lactobacillus (possible colonizers) - h/o sepsis due to complicated intra-abdominal infection and pneumonia - VIJAY # GI, onc - s/p residual fat stranding throughout the abdomen and pelvis on CT 03/11/2019 - s/p ex lap, washout of abdominal abscess, CLEVE, diverting loop ileostomy on 02/11/2019 - s/p open Reagan reversal and colorectal low pelvic anastomosis, segmental partial colectomy, and open incarcerated incisional and parastomal hernia repairs with mesh by Dr. Art on 01/21/2019 - h/o thrush, resolved - h/o follow up CT on 02/04/2019 did not identify definite point of leak--> anastomotic leak was identified on gastograffin - h/o CT guided drainage of abscess in LLQ on 02/01/2019 - h/o abdominal wound culture 01/30/19 and abscess culture 01/31/19 grew pseudomonas, joseline albicans and glabrata - h/o colostomy reversal - h/o stage III sigmoid colon cancer, status post prior colectomy/colostomy and chemo in 2018 # renal, cardiovascular - h/o recurrent acute kidney injury on chronic kidney disease - h/o acute on chronic diastolic CHF, improved - h/o atrial fibrillation with RVR, converted to SR - h/o hypertension - h/o left upper extremity DVT - h/o superficial thrombus in R cephalic vein in the forearm and in L cephalic vein in the antecubital fossa as visualized on NOY 02/05/2019 # other conditions - h/o R conjunctivitis, resolved after neomycin eye drop x 7 days - Of note: Pt previously took meropenem (01/30/2019-02/03/2019), metronidazole (02/04/2019-02/16/2019) and cefepime (02/04/2019-02/18/2019); Flagyl (02/24/19 - 03/08/19) and Levaquin ( - 03/08/19); s/p fluconazole Recommendations: - monitor closely off systemic antibiotics; s/p vancomycin and pip/tazo (restart 03/09/19-03/17/19) Consultation Date/Type/Reason Admit Date/Time March 09, 2019 at 03:20 Initial Consult Date Requesting Provider: ANDREY ZHENG MD Date/Time of Note DATE: 03/19/19 TIME: 13:43 Exam/Review of Systems Exam Vitals Vital Signs Date Temp Pulse Resp B/P (MAP) Pulse Ox O2 O2 Flow FiO2 Time Delivery Rate 03/19/19 97.7 73 16 114/73 96 Room Air 07:43 (87) Intake and Output 03/18/19 03/18/19 03/19/19 1515:00 23:00 07:00 IntakeIntake Total 1900 ml 1440 ml 1200 ml OutputOutput Total 2150 ml 660 ml 1050 ml BalanceBalance -250 ml 780 ml 150 ml Constitutional: alert, oriented, well developed Psych: no complaints, nl mood/affect Head: normocephalic, atraumatic Eyes: nl conjunctiva, EOMI, nl lids, nl sclera, PERRL ENMT: nl external ears & nose, nl lips & teeth, nl nasal mucosa & septum Respiratory: clear to auscultation, normal air movement Cardiovascular: regular rate and rhythm Gastrointestinal: soft Neurological: REAL ESTATE ACCOUNT EXECUTIVE II-XII intact Results Result Diagram: 03/17/19 0553 03/18/19 0441 Results 24hrs Laboratory Tests Test 03/18/19 17:50 03/18/19 20:34 03/19/19 00:10 03/19/19 06:24 Bedside Glucose 147 135 158 134 Test 03/19/19 12:22 Bedside Glucose 166 Medications Medication Current Medications Acetaminophen (Tylenol Tab) 650 mg Q4H PRN PO MILD PAIN(1-3)OR ELEVATED TEMP Last administered on 03/11/19at 20:41; Admin Dose 650 MG; Start 03/09/19 at 06:00 Acetaminophen/ Hydrocodone Bitart ([place] (5/325)) 1 tab Q4H PRN PO MODERATE PAIN LEVEL 4-6; Start 03/09/19 at 06:00 Hydromorphone HCl (Dilaudid) 0.5 mg Q3H PRN IV SEVERE PAIN LEVEL 7-10; Start 03/09/19 at 06:00 Insulin Aspart (Novolog Insulin Pen) NOVOLOG *MILD* ALGORI... Q6 SC Last administered on 03/19/19at 12:26; Admin Dose 1 UNIT; Start 03/09/19 at 06:00 Miscellaneous Information 1 ea NOTE XX ; Start 03/09/19 at 06:30 Glucose (Glutose) 15 gm Q15M PRN PO DECREASED GLUCOSE; Start 03/09/19 at 06:30 Glucose (Glutose) 22.5 gm Q15M PRN PO DECREASED GLUCOSE; Start 03/09/19 at 06:30 Dextrose (D50w Syringe) 25 ml Q15M PRN IV DECREASED GLUCOSE; Start 03/09/19 at 06:30 Dextrose (D50w Syringe) 50 ml Q15M PRN IV DECREASED GLUCOSE; Start 03/09/19 at 06:30 Glucagon (Glucagen) 1 mg Q15M PRN IM DECREASED GLUCOSE; Start 03/09/19 at 06:30 Glucose (Glutose) 15 gm Q15M PRN BUCCAL DECREASED GLUCOSE; Start 03/09/19 at 06:30 Miscellaneous Information ([facility]) This patient mora... PRN PRN XX WOUND CARE; Start 03/09/19 at 12:00 Total Parenteral Nutrition 1,000 ml @ 80 mls/hr [id number] IV Last administered on 03/19/19at 06:25; Admin Dose 80 MLS/HR; Start 03/09/19 at 18:30 Enoxaparin Sodium (Lovenox) 40 mg DAILY SC Last administered on 03/19/19at 10:09; Admin Dose 40 MG; Start 03/12/19 at 09:00 Alteplase, Recombinant (Cathflo (Activase)) 2 mg MAY REPEAT X1 PRN CATHETER IF CATHETER REMAINS OCCULUDED Last administered on 03/13/19at 04:47; Admin Dose 2 MG; Start 03/12/19 at 19:30 Clonidine HCl (Catapres-Tts 3 Patch) 1 patch Q7D TRANSDERM Last administered on 03/15/19at 17:47; Admin Dose 1 PATCH; Start 03/15/19 at 17:30 KURT SEO MD Mar 19, 2019 13:46
--- NOTE | 2019-03-19 14:13 | CONS ---
Consult Date/Type/Reason Admit Date/Time March 09, 2019 at 03:20 Initial Consult Date 03/10/19 Type of Consult Pulmonary Requesting Provider: ANDREY ZHENG MD Date/Time of Note DATE: 03/19/19 TIME: 14:11 Subjective No events, continues TPN. Objective Vital Signs Date Temp Pulse Resp B/P (MAP) Pulse Ox O2 O2 Flow FiO2 Time Delivery Rate 03/19/19 97.7 73 16 114/73 96 Room Air 07:43 (87) Intake and Output 03/18/19 03/18/19 03/19/19 1515:00 23:00 07:00 IntakeIntake Total 1900 ml 1440 ml 1200 ml OutputOutput Total 2150 ml 660 ml 1050 ml BalanceBalance -250 ml 780 ml 150 ml Exam GENERAL: Well-nourished well-developed gentleman comfortable at rest VITAL SIGNS: per chart NECK: Supple. No JVD or lymphadenopathy. CARDIAC EXAM: S1, S2. No added sounds or murmurs. CHEST: Diminished air entry right base ABDOMEN: Soft, nontender. No guarding or rebound. EXTREMITIES: No cyanosis, clubbing or edema. NEUROLOGIC: Generalized weakness. No focal deficits. Results/Medications Result Diagram: 03/17/19 0553 03/18/19 0441 Results 24 hrs Laboratory Tests Test 03/18/19 17:50 03/18/19 20:34 03/19/19 00:10 03/19/19 06:24 Bedside Glucose 147 135 158 134 Test 03/19/19 12:22 Bedside Glucose 166 Medications Current Medications Acetaminophen (Tylenol Tab) 650 mg Q4H PRN PO MILD PAIN(1-3)OR ELEVATED TEMP Last administered on 03/11/19at 20:41; Admin Dose 650 MG; Start 03/09/19 at 06:00 Acetaminophen/ Hydrocodone Bitart ([place] (5/325)) 1 tab Q4H PRN PO MODERATE PAIN LEVEL 4-6; Start 03/09/19 at 06:00 Hydromorphone HCl (Dilaudid) 0.5 mg Q3H PRN IV SEVERE PAIN LEVEL 7-10; Start 03/09/19 at 06:00 Insulin Aspart (Novolog Insulin Pen) NOVOLOG *MILD* ALGORI... Q6 SC Last administered on 03/19/19at 12:26; Admin Dose 1 UNIT; Start 03/09/19 at 06:00 Miscellaneous Information 1 ea NOTE XX ; Start 03/09/19 at 06:30 Glucose (Glutose) 15 gm Q15M PRN PO DECREASED GLUCOSE; Start 03/09/19 at 06:30 Glucose (Glutose) 22.5 gm Q15M PRN PO DECREASED GLUCOSE; Start 03/09/19 at 06:30 Dextrose (D50w Syringe) 25 ml Q15M PRN IV DECREASED GLUCOSE; Start 03/09/19 at 06:30 Dextrose (D50w Syringe) 50 ml Q15M PRN IV DECREASED GLUCOSE; Start 03/09/19 at 06:30 Glucagon (Glucagen) 1 mg Q15M PRN IM DECREASED GLUCOSE; Start 03/09/19 at 06:30 Glucose (Glutose) 15 gm Q15M PRN BUCCAL DECREASED GLUCOSE; Start 03/09/19 at 06:30 Miscellaneous Information (Pending Santyl Order For Wound Care) This patient mora... PRN PRN XX WOUND CARE; Start 03/09/19 at 12:00 Total Parenteral Nutrition 1,000 ml @ 80 mls/hr [id number] IV Last administered on 03/19/19at 06:25; Admin Dose 80 MLS/HR; Start 03/09/19 at 18:30 Enoxaparin Sodium (Lovenox) 40 mg DAILY SC Last administered on 03/19/19at 10:09; Admin Dose 40 MG; Start 03/12/19 at 09:00 Alteplase, Recombinant (Cathflo (Activase)) 2 mg MAY REPEAT X1 PRN CATHETER IF CATHETER REMAINS OCCULUDED Last administered on 03/13/19at 04:47; Admin Dose 2 MG; Start 03/12/19 at 19:30 Clonidine HCl (Catapres-Tts 3 Patch) 1 patch Q7D TRANSDERM Last administered on 03/15/19at 17:47; Admin Dose 1 PATCH; Start 03/15/19 at 17:30 Assessment/Plan Hospital Course (Demo Recall) IMP: 1. Right pleural effusion loculated possibly parapneumonic 2 History of upper extremity deep vein thrombosis 3. History of colon cancer status post resection and chemotherapy. Postop ileus on TPN. RECS: 1. Continue antibiotics per primary team 2. Repeat CT chest 1 month 3. Continues TPN would hold off on decortication for a few weeks until nutritional status improved. If patient has loculated effusion on subsequent CT chest would refer to thoracic surgery for decortication. RAFAEL HERNANDEZ MD, [facility] Mar 19, 2019 14:13
[2019-03-19 14:32] VITALS: BP 120/74; PULSE 73; RESP 16
[2019-03-19] MEDS ORDERED: CLON1PAT3 TRANSDERM (16:59)
--- NOTE | 2019-03-19 17:06 | PN ---
Date/Time of Note Date/Time of Note DATE: 03/19/19 TIME: 17:04 Assessment/Plan VTE Prophylaxis Risk score (from Nsg)>0 risk: 6 SCD applied (from Nsg): Yes Pharmacological prophylaxis: LMWH Lines/Catheters IV Catheter Type (from Nrsg): PICC Line Central line still needed: Yes Urinary Cath still in place: No Assessment/Plan Hospital Course Patient remains hemodynamically stable, chest x-ray noted, discussed with Dr. Levine, PERLITA planning Assessment/Plan -Sepsis secondary to pneumonia, continue IV hydration, antibiotics per ID. Dr. Renner is following in infection disease consultation. -Right lower lobe pneumonia -Right lung pleural effusion or empyema, status post ultrasound-guided guided thoracentesis on 03/11/2019. Dr. Cardona is following in pulmonology consultation -Left upper extremity PICC line malfunction, resolved, venous Doppler is negative for DVT. -Chest pain with abnormal EKG, troponin is negative x3. Dr. Alejandro is fo llowing in cardiology consultation. -Stage III sigmoid colon cancer, status post surgery and chemo in 2018. -Chronic diastolic CHF -Paroxysmal atrial fibrillation, continue Lovenox. -Protein calorie malnutrition, continue TPN due to dehydration and malabsorption due to large ileostomy output. -History of anastomotic leak and intra-abdominal abscess, Status post laparotomy, washout of the peritoneal cavity, placement of a diverting loop ileostomy in right lower quadrant for protection of the anastomosis in the colorectal area on 02/11/[address] Art. Patient was on Levaquin and Flagyl at home. CT of the abdomen and pelvis on 03/11/2019 with near complete resolution of abscess. -History of open Reagan reversal and colorectal low pelvic anastomosis, segmental partial colectomy, and open incarcerated incisional and parastomal hernia repairs with mesh by Dr. Art on 01/21/2019. -Hx of Obstructive sleep apnea Further recommendations based on clinical course. Plan of care discussed with Dr. Fox. Result Diagram: 03/17/19 0553 03/18/19 0441 Results 24hrs Laboratory Tests Test 03/18/19 17:50 03/18/19 20:34 03/19/19 00:10 03/19/19 06:24 Bedside Glucose 147 135 158 134 Test 03/19/19 12:22 Bedside Glucose 166 Exam/Review of Systems Exam Vitals Vital Signs Date Temp Pulse Resp B/P (MAP) Pulse Ox O2 O2 Flow FiO2 Time Delivery Rate 03/19/19 99.3 73 16 120/74 97 Room Air 14:32 (89) Intake and Output 03/18/19 03/18/19 03/19/19 1515:00 23:00 07:00 IntakeIntake Total 1900 ml 1440 ml 1200 ml OutputOutput Total 2150 ml 660 ml 1050 ml BalanceBalance -250 ml 780 ml 150 ml Exam Constitutional: alert, oriented Respiratory: diminished breath sounds Cardiovascular: nl pulses Gastrointestinal: soft, non-tender, other (Abdominal surgical incision, left lower quadrant drain) Musculoskeletal: nl extremities to inspection Extremities: normal pulses Neurological: nl mental status Skin: nl turgor Results Results 24hrs Laboratory Tests Test 03/18/19 17:50 03/18/19 20:34 03/19/19 00:10 03/19/19 06:24 Bedside Glucose 147 135 158 134 Test 03/19/19 12:22 Bedside Glucose 166 Medications Medication Current Medications Acetaminophen (Tylenol Tab) 650 mg Q4H PRN PO MILD PAIN(1-3)OR ELEVATED TEMP Last administered on 03/11/19at 20:41; Admin Dose 650 MG; Start 03/09/19 at 06:00 Acetaminophen/ Hydrocodone Bitart ([place] (5/325)) 1 tab Q4H PRN PO MODERATE PAIN LEVEL 4-6; Start 03/09/19 at 06:00 Hydromorphone HCl (Dilaudid) 0.5 mg Q3H PRN IV SEVERE PAIN LEVEL 7-10; Start 03/09/19 at 06:00 Insulin Aspart (Novolog Insulin Pen) NOVOLOG *MILD* ALGORI... Q6 SC Last administered on 03/19/19at 12:26; Admin Dose 1 UNIT; Start 03/09/19 at 06:00 Miscellaneous Information 1 ea NOTE XX ; Start 03/09/19 at 06:30 Glucose (Glutose) 15 gm Q15M PRN PO DECREASED GLUCOSE; Start 03/09/19 at 06:30 Glucose (Glutose) 22.5 gm Q15M PRN PO DECREASED GLUCOSE; Start 03/09/19 at 06:30 Dextrose (D50w Syringe) 25 ml Q15M PRN IV DECREASED GLUCOSE; Start 03/09/19 at 06:30 Dextrose (D50w Syringe) 50 ml Q15M PRN IV DECREASED GLUCOSE; Start 03/09/19 at 06:30 Glucagon (Glucagen) 1 mg Q15M PRN IM DECREASED GLUCOSE; Start 03/09/19 at 06:30 Glucose (Glutose) 15 gm Q15M PRN BUCCAL DECREASED GLUCOSE; Start 03/09/19 at 06:30 Miscellaneous Information (Pending Santyl Order For Wound Care) This patient mora... PRN PRN XX WOUND CARE; Start 03/09/19 at 12:00 Total Parenteral Nutrition 1,000 ml @ 80 mls/hr [id number] IV Last administered on 03/19/19at 06:25; Admin Dose 80 MLS/HR; Start 03/09/19 at 18:30 Enoxaparin Sodium (Lovenox) 40 mg DAILY SC Last administered on 03/19/19at 10:09; Admin Dose 40 MG; Start 03/12/19 at 09:00 Alteplase, Recombinant (Cathflo (Activase)) 2 mg MAY REPEAT X1 PRN CATHETER IF CATHETER REMAINS OCCULUDED Last administered on 03/13/19at 04:47; Admin Dose 2 MG; Start 03/12/19 at 19:30 Clonidine HCl (Catapres-Tts 3 Patch) 1 patch Q7D TRANSDERM Last administered on 03/15/19at 17:47; Admin Dose 1 PATCH; Start 03/15/19 at 17:30 ODELL PACHECO Mar 19, 2019 17:06
[2019-03-19 20:02] VITALS: BP 128/75; PULSE 81; RESP 18
[2019-03-20] MEDS: INSULIN ASPART [NOVOLOG] 3 ML PEN SC SCH ×2 (00:18→06:00)
[2019-03-20 02:28] VITALS: BP 120/70; PULSE 74; RESP 16
[2019-03-20] MEDS: TPN 1,000 ML IV SCH (06:13)
[2019-03-20 07:52] VITALS: BP 124/71; PULSE 65; RESP 17
[2019-03-20] MEDS: ENOXAPARIN 40 MG/0.4 ML SYG SC SCH (08:11)
--- NOTE | 2019-03-20 11:49 | CONS ---
Assessment/Plan Assessment/Plan Hospital Course (Demo Recall) # sepsis, respiratory - persistent RLL infiltrate with complex pleural effusion; resp status is stable on room air - s/p recurrent pleural effusion, follow up chest US on 02/17/2019 showed small R sided effusion. CXR 03/09/19 showed moderate R sided pleural effusion - s/p repeat R sided thoracentesis, exudative process as LDH was 607 - h/o R pleural effusion, exudative process, parapneumonic effusion LDH 1601 protein 3.2, no e/o malignancy on cytology - h/o R sided thoracentesis on 02/05/2019 - possibly residual intra-abdominal infection as CT on 03/11/2019 showed residual fat stranding throughout the abdomen and pelvis; wound culture grew Stenotrophomonas, CoNS, and scant Lactobacillus (possible colonizers) - h/o sepsis due to complicated intra-abdominal infection and pneumonia - VIJAY # GI, onc - s/p residual fat stranding throughout the abdomen and pelvis on CT 03/11/2019 - s/p ex lap, washout of abdominal abscess, CLEVE, diverting loop ileostomy on 02/11/2019 - s/p open Reagan reversal and colorectal low pelvic anastomosis, segmental partial colectomy, and open incarcerated incisional and parastomal hernia repairs with mesh by Dr. Art on 01/21/2019 - h/o thrush, resolved - h/o follow up CT on 02/04/2019 did not identify definite point of leak--> anastomotic leak was identified on gastograffin - h/o CT guided drainage of abscess in LLQ on 02/01/2019 - h/o abdominal wound culture 01/30/19 and abscess culture 01/31/19 grew pseudomonas, joseline albicans and glabrata - h/o colostomy reversal - h/o stage III sigmoid colon cancer, status post prior colectomy/colostomy and chemo in 2018 # renal, cardiovascular - h/o recurrent acute kidney injury on chronic kidney disease - h/o acute on chronic diastolic CHF, improved - h/o atrial fibrillation with RVR, converted to SR - h/o hypertension - h/o left upper extremity DVT - h/o superficial thrombus in R cephalic vein in the forearm and in L cephalic vein in the antecubital fossa as visualized on NOY 02/05/2019 # other conditions - h/o R conjunctivitis, resolved after neomycin eye drop x 7 days - Of note: Pt previously took meropenem (01/30/2019-02/03/2019), metronidazole (02/04/2019-02/16/2019) and cefepime (02/04/2019-02/18/2019); Flagyl (02/24/19 - 03/08/19) and Levaquin ( - 03/08/19); s/p fluconazole Recommendations: - monitor closely off systemic antibiotics; s/p vancomycin and pip/tazo (restart 03/09/19-03/17/19) Plan was d/w Consultation Date/Type/Reason Admit Date/Time March 09, 2019 at 03:20 Initial Consult Date 03/10/19 Type of Consult ID Requesting Provider: ANDREY ZHENG MD Date/Time of Note DATE: 03/20/19 TIME: 11:48 Exam/Review of Systems Exam Vitals Vital Signs Date Temp Pulse Resp B/P (MAP) Pulse Ox O2 O2 Flow FiO2 Time Delivery Rate 03/20/19 98.6 65 17 124/71 97 Room Air 07:52 (88) Allergies Coded Allergies No Known Allergy (Unverified03/09/19) Intake and Output 03/19/19 03/19/19 03/20/19 1515:00 23:00 07:00 IntakeIntake Total 700 ml 1000 ml 1000 ml OutputOutput Total 1450 ml 700 ml 900 ml BalanceBalance -750 ml 300 ml 100 ml Results Result Diagram: 03/17/19 0553 03/20/19 1004 Results 24hrs Laboratory Tests Test 03/19/19 12:22 03/19/19 17:36 03/19/19 23:55 03/20/19 05:53 Bedside Glucose 166 126 165 134 Test 03/20/19 07:52 03/20/19 10:04 Bedside Glucose 124 Sodium Level 137 Potassium Level 4.0 Chloride Level 104 Carbon Dioxide Level 25 Anion Gap 8 Blood Urea Nitrogen 22 H Creatinine 0.69 Est Glomerular Filtrat > 60 Rate mL/min Glucose Level 140 Calcium Level 9.3 Phosphorus Level 4.3 Magnesium Level 2.0 Medications Medication Current Medications Acetaminophen (Tylenol Tab) 650 mg Q4H PRN PO MILD PAIN(1-3)OR ELEVATED TEMP Last administered on 03/11/19at 20:41; Admin Dose 650 MG; Start 03/09/19 at 06:00 Acetaminophen/ Hydrocodone Bitart ([place] (5/325)) 1 tab Q4H PRN PO MODERATE PAIN LEVEL 4-6; Start 03/09/19 at 06:00 Hydromorphone HCl (Dilaudid) 0.5 mg Q3H PRN IV SEVERE PAIN LEVEL 7-10; Start 03/09/19 at 06:00 Insulin Aspart (Novolog Insulin Pen) NOVOLOG *MILD* ALGORI... Q6 SC Last administered on 03/20/19at 00:18; Admin Dose 1 UNIT; Start 03/09/19 at 06:00 Miscellaneous Information 1 ea NOTE XX ; Start 03/09/19 at 06:30 Glucose (Glutose) 15 gm Q15M PRN PO DECREASED GLUCOSE; Start 03/09/19 at 06:30 Glucose (Glutose) 22.5 gm Q15M PRN PO DECREASED GLUCOSE; Start 03/09/19 at 06:30 Dextrose (D50w Syringe) 25 ml Q15M PRN IV DECREASED GLUCOSE; Start 03/09/19 at 06:30 Dextrose (D50w Syringe) 50 ml Q15M PRN IV DECREASED GLUCOSE; Start 03/09/19 at 06:30 Glucagon (Glucagen) 1 mg Q15M PRN IM DECREASED GLUCOSE; Start 03/09/19 at 06:30 Glucose (Glutose) 15 gm Q15M PRN BUCCAL DECREASED GLUCOSE; Start 03/09/19 at 06:30 Miscellaneous Information (Pending [facility] Order For Wound Care) This patient mora... PRN PRN XX WOUND CARE; Start 03/09/19 at 12:00 Total Parenteral Nutrition 1,000 ml @ 80 mls/hr [id number] IV Last administered on 03/20/19at 06:13; Admin Dose 80 MLS/HR; Start 03/09/19 at 18:30 Enoxaparin Sodium (Lovenox) 40 mg DAILY SC Last administered on 03/20/19at 08:11; Admin Dose 40 MG; Start 03/12/19 at 09:00 Alteplase, Recombinant (Cathflo (Activase)) 2 mg MAY REPEAT X1 PRN CATHETER IF CATHETER REMAINS OCCULUDED Last administered on 03/13/19at 04:47; Admin Dose 2 MG; Start 03/12/19 at 19:30 Clonidine HCl (Catapres-Tts 3 Patch) 1 patch Q7D TRANSDERM Last administered on 03/15/19at 17:47; Admin Dose 1 PATCH; Start 03/15/19 at 17:30 JUSTYN WORLEY NP Mar 20, 2019 11:49
--- NOTE | 2019-03-20 19:42 | DS ---
Date/Time of Note Date/Time of Note DATE: 03/20/19 TIME: 19:38 Discharge Summary Admission/Discharge Info Admit Date/Time March 09, 2019 at 03:20 Discharge Date/Time Mar 20, 2019 at 11:55 Patient Condition: Stable Hx of Present Illness The patient is a 59-year-old male, presenting to the ER because of malfunction of the left upper extremity PICC line. He received TPN and antibiotics Levaquin IV and Flagyl IV due to recent abdominal surgery from extensive abdominal surgery due to colon cancer. He denies chest pain/palpitations/ shortness of breath/headache/ cough/ abdominal pain /NVD. Denies any fall /injury/ recent travel/contact with any sick. Denies any right/lrft calf pain. Denies focal weakness/numbness. Hospital Course -Sepsis secondary to pneumonia, resolved, completed treatment with antibiotics. Dr. Renner is following in infection disease consultation. -Right lower lobe pneumonia -Right lung pleural effusion or empyema, status post ultrasound-guided guided thoracentesis on 03/11/2019. Dr. Cardona is following in pulmonology consultation. Patient no respiratory distress on room air. Follow-up with Dr. Levine in 2 weeks as an outpatient. -Left upper extremity PICC line malfunction, resolved, venous Doppler is negati ve for DVT. -Chest pain with abnormal EKG, troponin is negative x3. Dr. Alejandro is following in cardiology consultation. -Stage III sigmoid colon cancer, status post surgery and chemo in 2018. -Chronic diastolic CHF -Paroxysmal atrial fibrillation, continue Lovenox. -Protein calorie malnutrition, continue TPN due to dehydration and malabsorption due to large ileostomy output. -History of anastomotic leak and intra-abdominal abscess, Status post laparotomy, washout of the peritoneal cavity, placement of a diverting loop ileostomy in right lower quadrant for protection of the anastomosis in the colorectal area on 02/11/[address] Art. Patient was on Levaquin and Flagyl at home. CT of the abdomen and pelvis on 03/11/2019 with near complete resolution of abscess. Abdominal drain, follow-up with Dr. Benavidez in 1 week. -History of open Reaagn reversal and colorectal low pelvic anastomosis, segmental partial colectomy, and open incarcerated incisional and parastomal hernia repairs with mesh by Dr. Art on 01/21/2019. -Hx of Obstructive sleep apnea Plan of care discussed with Dr. Fox. Home Meds Active Scripts Clonidine Patch (CLONIDINE PATCH) 0.3 Mg/24 Hr Patch, 1 PATCH TRANSDERM Q7D for 30 Days Prov:ODELL PACHECO 03/19/19 Lactose-Reduced Food (Ensure Original) 237 Ml Liquid, 237 ML PO AC A, #10 Prov:ODELL PACHECO 02/28/19 Reported Medications Apixaban* (Eliquis*) 5 Mg Tablet, 5 MG PO BID, TAB 11/02/18 Atorvastatin Calcium* (Atorvastatin Calcium*) 20 Mg Tablet, 20 MG PO QHS, #30 TAB 01/07/18 Discontinued Scripts Diltiazem Hcl* (Cardizem CD*) 120 Mg Cap.sr.24h, 120 MG PO BID for 30 Days Prov:ODELL PACHECO 02/28/19 Atenolol* (Atenolol*) 50 Mg Tablet, 50 MG PO BID for 30 Days, TAB Prov:ODELL PACHECO 02/28/19 Follow-up Plan Discharge after arrangement is made to resume TPN and home health services, patient to follow-up with in pulmonology consultation in 2 weeks, CT of the chest in 2 weeks, follow-up with Dr. Art in 1 week. Primary Care Provider [facility] Time spent on discharge: > 30 minutes Pending Labs Laboratory Tests Test 03/19/19 23:55 03/20/19 05:53 03/20/19 07:52 03/20/19 10:04 Bedside 165 134 124 Glucose mg/dL (70-220) mg/dL (70-220) mg/dL (70-220) Sodium Level 137 mmol/L (135-14 4) Potassium 4.0 Level mmol/L (3.5-5. 1) Chloride Level 104 mmol/L (97-110 ) Carbon Dioxide 25 Level mmol/L (21-31) Anion Gap 8 (5-13) Blood Urea 22 Nitrogen mg/dl (7-20) Creatinine 0.69 mg/dl (0.61-1. 24) Est Glomerular > 60 Filtrat mL/min (>60) Rate mL/min Glucose Level 140 mg/dl (70-220) Calcium Level 9.3 mg/dl (8.4-10. 2) Phosphorus 4.3 Level mg/dl (2.5-4.9 ) Magnesium 2.0 Level mg/dl (1.7-2.5 ) ODELL PACHECO Mar 20, 2019 19:42
== END 2019-03-20 11:55 | disposition home health service (06) | DRG 871 ==
LOC: E/R 22:58 → PP2 03-09 03:20
PROVIDERS: ADMIT Internal Medicine; ATTEND Internal Medicine
PROC: 0W9930Z Drainage of Right Pleural Cavity with Drainage Device, Percutaneous Approach (ICD-10-PCS; principal; 2019-03-11)
DX: A41.9 Sepsis, unspecified organism (principal); I50.33 Acute on chronic diastolic (congestive) heart failure; J18.9 Pneumonia, unspecified organism; K65.1 Peritoneal abscess; T82.898A Other specified complication of vascular prosthetic devices, implants and grafts, initial encounter; J90 Pleural effusion, not elsewhere classified; I13.0 Hypertensive heart and chronic kidney disease with heart failure and stage 1 through stage 4 chronic kidney disease, or unspecified chronic kidney disease; N17.9 Acute kidney failure, unspecified; E46 Unspecified protein-calorie malnutrition; K56.7 Ileus, unspecified; N39.0 Urinary tract infection, site not specified; I82.611 Acute embolism and thrombosis of superficial veins of right upper extremity; C18.9 Malignant neoplasm of colon, unspecified; K91.2 Postsurgical malabsorption, not elsewhere classified; R07.89 Other chest pain; E78.5 Hyperlipidemia, unspecified; G47.33 Obstructive sleep apnea (adult) (pediatric); D64.9 Anemia, unspecified; N18.9 Chronic kidney disease, unspecified; Z68.30 Body mass index [BMI] 30.0-30.9, adult; I48.0 Paroxysmal atrial fibrillation; Z93.2 Ileostomy status; E86.0 Dehydration; E87.6 Hypokalemia; Z87.891 Personal history of nicotine dependence; B95.7 Other staphylococcus as the cause of diseases classified elsewhere
CPT/HCPCS: 36415; 71045; 71250; 74176; 76604; 76942; 80048; 80053; 80061; 80202; 81003; 82947; 82962; 83036; 83605; 83615; 83735; 83880; 84075; 84100; 84134; 84145; 84155; 84450; 84460; 84478; 84484; 85025; 85610; 85730; 87070; 87075; 87086; 87102; 87116; 93005; 93970; J1650; J1815; J1940; J2543; J2997; J3370; J3480; J7050

== ENCOUNTER 2019-04-05 12:01 | Emergency (ER) | payer OTHER ==
[~2019-04-05] VITALS: Ht 172.7 cm; Wt 82.3 kg
[~2019-04-05 12:01] MED LIST changes: -ATEN50TA PO; +CLON1PAT3 TRANSDERM; -DILT120C77 PO; -LOPE-123 PO
[2019-04-05 12:09] VITALS: BP 142/77; PULSE 81; RESP 18; Ht 172.7 cm; Wt 82.3 kg
--- NOTE | 2019-04-05 12:28 | ERD ---
ER Documentation Chief Complaint Chief Complaint rash to the picc line site x 1 week; no fevers HPI 59-year-old man here with son for complaints of 1 week of itchy red skin over the left anterior arm where a PICC line was placed about a month ago. Patient complains of mild itching but has had no fevers or chills, no bleeding from the skin, no arm swelling, no purulent discharge. Patient denies chest pain or shortness of breath. A recent left upper extremity ultrasound was negative for DVT. Patient is currently undergoing IV antibiotic therapy daily for recent pul monary infection and empyema ROS All systems reviewed and are negative except as per history of present illness. Medications Home Meds Active Scripts Mupirocin* (Bactroban*) 2% -22 Gram Oint...g., 1 APPLIC TOP BID for 14 Days, EA Prov:SIVAKUMAR GUNDERSON MD 04/05/19 Prednisone* (Prednisone*) 20 Mg Tab, 40 MG PO DAILY for 5 Days, TAB Prov:SIVAKUMAR GUNDERSON MD 04/05/19 Clonidine Patch (CLONIDINE PATCH) 0.3 Mg/24 Hr Patch, 1 PATCH TRANSDERM Q7D for 30 Days Prov:ODELL PACHECO 03/19/19 Lactose-Reduced Food (Ensure Original) 237 Ml Liquid, 237 ML PO AC A, #10 Prov:ODELL PACHECO 02/28/19 Reported Medications Apixaban* (Eliquis*) 5 Mg Tablet, 5 MG PO BID, TAB 11/02/18 Atorvastatin Calcium* (Atorvastatin Calcium*) 20 Mg Tablet, 20 MG PO QHS, #30 TAB 01/07/18 Allergies Allergies: Coded Allergies: No Known Allergy (Unverified , 03/09/19) PMhx/Soc Recent right lower lobe pneumonia, pleural effusion, empyema, stage III: Cancer, CHF, paroxysmal atrial fibrillation, obstructive sleep apnea History of Surgery: Yes (picc line ; colon surgery) Anesthesia Reaction: No Hx Neurological Disorder: No Hx Respiratory Disorders: No Hx Cardiac Disorders: No Hx Psychiatric Problems: Yes (Anxiety) Hx Miscellaneous Medical Probl: Yes (colon cancer) Hx Alcohol Use: Yes (30 year drinker. Sober for 3 Years) Hx Substance Use: No Hx Tobacco Use: Yes (Former Smoker) Smoking Status: Former smoker FmHx Family History: No diabetes Physical Exam Vitals Vital Signs Date Temp Pulse Resp B/P (MAP) Pulse Ox O2 O2 Flow FiO2 Time Delivery Rate 04/05/19 98.6 81 18 142/77 99 12:09 (98) Physical Exam Const: Well-developed well-nourished man, no apparent distress, afebrile Resp: Clear to auscultation bilaterally Cardio: Regular rate and rhythm, no murmurs Abd: Soft, non tender, non distended. Normal bowel sounds Skin: Mild erythematous vesiculopapular dermatitis over the left upper extremity right around the PICC line. There is no purulent discharge, no ulcers, no pustules, no skin desquamation. There are no target lesions and no fluctuant masses noted. Ext: No cyanosis, or edema, calves symmetrical, no popliteal cords sign Neur: Awake and alert x3, no focal deficits or facial asymmetry Psych: Normal Mood and Affect Results 24 hrs Current Medications Medications Dose Sig/Kalia Start Time Status Last (Trade) Ordered Route PRN Stop Time Admin Dose Reason Admin Silver 1 applic ONCE ONCE 04/05/19 DC Sulfadiazine TOP 12:30 (Thermazene 04/05/19 12:31 1% 25 Gm) Procedures/MDM Silver sulfadiazine ointment was applied to this contact dermatitis and I recommended mupirocin 2% antibiotic ointment to be applied twice a day along with silver sulfadiazine to help control this rash. There are no signs of abscess or cellulitis and no signs of upper extremity deep vein thrombosis. Patient feels much better at this time, and vital signs are normal, symptoms have improved. I did give strict instructions to return to the ED if symptoms continue or worsen, patient will otherwise follow-up with primary care physician. Patient understood instructions and agreed to plan. Disclaimer: Inadvertent spelling and grammatical errors are likely due to EHR/dictation software use and do not reflect on the overall quality of patient care. Also, please note that the electronic time recorded on this note does not necessarily reflect the actual time of the patient encounter. Departure Diagnosis: Primary Impression: Chemical induced allergic contact dermatitis Condition: SIVAKUMAR Boyce MD Apr 05, 2019 12:28
[2019-04-05] MEDS ORDERED: SILVER SULFADIAZINE 1% 25 GM CR TOP ONE (12:30)
[2019-04-05] MEDS ORDERED: MUPI22OI2 TOP (12:31)
[2019-04-05] MEDS ORDERED: PRED20TA PO (12:31)
== END 2019-04-05 13:03 | disposition home or self-care (01) ==
LOC: E/R 12:01
DX: L23.5 Allergic contact dermatitis due to other chemical products (principal); I50.9 Heart failure, unspecified; Z85.038 Personal history of other malignant neoplasm of large intestine; Z87.891 Personal history of nicotine dependence; Z79.01 Long term (current) use of anticoagulants
CPT/HCPCS: Z7502; Z7610; 99282

== ENCOUNTER 2019-05-17 17:55 | Emergency (ER) | payer OTHER ==
[~2019-05-17] VITALS: Ht 152.4 cm; Wt 70.0 kg
[~2019-05-17 17:55] MED LIST changes: +FLUD0.1T10 PO; +MUPI22OI2 TOP; +PRED20TA PO
[2019-05-17 18:02] VITALS: BP 100/53; PULSE 99; RESP 18; Ht 152.4 cm; Wt 70.0 kg
--- NOTE | 2019-05-17 18:13 | ERD ---
ER Documentation Chief Complaint Chief Complaint WANTS TO HAVE CHECK UP COLOSTOMY SITE HPI 59-year-old male with colostomy bag. He is here accompanied by his daughter and they are concerned that there may be an infection around the colostomy bag as he notices some white area when they were changing the bag today. Is been no fever. No pain. Stool is normal color. ROS All systems reviewed and are negative except as per history of present illness. Medications Home Meds Active Scripts Mupirocin* (Bactroban*) 2% -22 Gram Oint...g., 1 APPLIC TOP BID for 14 Days, EA Prov:SIVAKUMAR GUNDERSON MD 04/05/19 Prednisone* (Prednisone*) 20 Mg Tab, 40 MG PO DAILY for 5 Days, TAB Prov:SIVAKUMAR GUNDERSON MD 04/05/19 Clonidine Patch (CLONIDINE PATCH) 0.3 Mg/24 Hr Patch, 1 PATCH TRANSDERM Q7D for 30 Days Prov:ODELL PACHECO 03/19/19 Lactose-Reduced Food (Ensure Original) 237 Ml Liquid, 237 ML PO AC A, #10 Prov:ODELL PACHECO 02/28/19 Reported Medications Apixaban* (Eliquis*) 5 Mg Tablet, 5 MG PO BID, TAB 11/02/18 Atorvastatin Calcium* (Atorvastatin Calcium*) 20 Mg Tablet, 20 MG PO QHS, #30 TAB 01/07/18 Allergies Allergies: Coded Allergies: No Known Allergy (Unverified , 03/09/19) PMhx/Soc History of Surgery: Yes (picc line ; colon surgery) Anesthesia Reaction: No Hx Neurological Disorder: No Hx Respiratory Disorders: No Hx Cardiac Disorders: No Hx Psychiatric Problems: Yes (Anxiety) Hx Miscellaneous Medical Probl: Yes (colon cancer) Hx Alcohol Use: Yes (30 year drinker. Sober for 3 Years) Hx Substance Use: No Hx Tobacco Use: Yes (Former Smoker) FmHx Family History: No diabetes Physical Exam Vitals Vital Signs Date Temp Pulse Resp B/P (MAP) Pulse Ox O2 O2 Flow FiO2 Time Delivery Rate 05/17/19 98.1 99 18 100/53 99 18:02 (69) Physical Exam Const: No acute distress Head: Atraumatic Eyes: Normal Conjunctiva ENT: Normal External Ears, Nose and Mouth. Neck: Full range of motion. No meningismus. Resp: Clear to auscultation bilaterally Cardio: Regular rate and rhythm, no murmurs Abd: Colostomy bag in place with brown-colored stool, no surrounding erythema or edema, no tenderness or warmth Procedures/MDM Colostomy bag appears normal without any evidence of infection. No fever. Patient is just wanted reassurance that there was no skin infection. Patient counseled regarding my diagnostic impression and care plan. Prior to discharge all questions answered. Pt agrees with treatment plan and understands strict return precautions. Pt is instructed to follow up with primary care provider within 24-48 hours. Precautionary instructions provided including instructions to return to the ER if not improving or for any worsening or changing symptoms or concerns. Departure Diagnosis: Primary Impression: Colostomy care Condition: Stable Patient Instructions: Wound Care Additional Instructions: Call your primary care doctor TOMORROW for an appointment during the next 1-2 days.See the doctor sooner or return here if your condition worsens before your appointment time. JERRY HUYNH PA-C May 17, 2019 18:13
== END 2019-05-17 18:26 | disposition home or self-care (01) ==
LOC: E/R 17:55
DX: Z43.3 Encounter for attention to colostomy (principal); Z79.01 Long term (current) use of anticoagulants; Z85.038 Personal history of other malignant neoplasm of large intestine; Z87.891 Personal history of nicotine dependence
CPT/HCPCS: 99282

== ENCOUNTER 2019-06-05 19:46 | Inpatient (IN) | payer OTHER ==
[~2019-06-05] VITALS: Ht 167.6 cm; Wt 70.7 kg
[~2019-06-05 19:46] MED LIST changes: +POTA8TAB2 PO; +SILV20CR12 TOP
[2019-06-05 20:07] VITALS: Ht 167.6 cm; Wt 70.7 kg
[2019-06-05] MEDS ORDERED: SOD CHLORIDE 0.9% 1,000 ML IV ONE (22:30)
[2019-06-06] MEDS ORDERED: ONDANSETRON 4 MG INJ IV PRN (02:00)
[2019-06-06] MEDS ORDERED: ACETAMINOPHEN 325 MG TAB PO PRN (02:00)
[2019-06-06 11:40] VITALS: BP 90/62; PULSE 86; RESP 18
[2019-06-06] MEDS: DEXTROSE 5%-0.9% NACL 1,000 ML IV SCH (13:16)
[2019-06-06 20:00] VITALS: BP 90/59; PULSE 71; RESP 18
[2019-06-07] VITALS: BP 95/56; PULSE 85; RESP 17
[2019-06-07] MEDS: DEXTROSE 5%-0.9% NACL 1,000 ML IV SCH ×4 (00:05→21:00)
[2019-06-07 04:00] VITALS: BP 100/66; PULSE 93; RESP 18
[2019-06-07] MEDS ORDERED: MAGNESIUM SULFATE 2 GM/50 ML 50 ML IVPB ONE (07:30)
[2019-06-07 07:59] VITALS: BP 99/65; PULSE 95; RESP 18
[2019-06-07 11:55] VITALS: BP 98/61; PULSE 87; RESP 18
[2019-06-07] MEDS ORDERED: LACTOSE REDUCED FOOD PO SCH (12:00)
[2019-06-07 15:44] VITALS: BP 96/60; PULSE 75; RESP 18
[2019-06-07 20:00] VITALS: BP 100/62; PULSE 83; RESP 19
[2019-06-07] MEDS: APIXABAN 5 MG TABLET PO SCH (20:18)
[2019-06-07] MEDS: ATORVASTATIN 20 MG TAB PO SCH (20:18)
[2019-06-08] VITALS (7 sets, daily range): BP systolic 93–120; BP diastolic 56–73; PULSE 72–96; RESP 18–20
[2019-06-08] MEDS: DEXTROSE 5%-0.9% NACL 1,000 ML IV SCH ×3 (03:36→20:08)
[2019-06-08] MEDS: FAMOTIDINE 20 MG TAB PO SCH (08:26)
[2019-06-08] MEDS: APIXABAN 5 MG TABLET PO SCH ×2 (08:26→20:03)
[2019-06-08] MEDS ORDERED: POTASSIUM CHLORIDE (SR) 20 MEQ TAB PO STA (09:38)
[2019-06-08] MEDS: ATORVASTATIN 20 MG TAB PO SCH (20:03)
[2019-06-09 04:00] VITALS: BP 105/56; PULSE 85; RESP 19
[2019-06-09] MEDS: DEXTROSE 5%-0.9% NACL 1,000 ML IV SCH ×3 (05:07→20:15)
[2019-06-09 07:30] VITALS: BP 108/65; PULSE 87; RESP 18
[2019-06-09] MEDS: FAMOTIDINE 20 MG TAB PO SCH (08:31)
[2019-06-09] MEDS: APIXABAN 5 MG TABLET PO SCH ×2 (08:31→20:15)
[2019-06-09 11:32] VITALS: BP 115/62; PULSE 83; RESP 18
[2019-06-09 15:40] VITALS: BP 108/67; PULSE 78; RESP 18
[2019-06-09 19:52] VITALS: BP 96/61; PULSE 71; RESP 19
[2019-06-09] MEDS: ATORVASTATIN 20 MG TAB PO SCH (20:15)
[2019-06-09 23:48] VITALS: BP 102/57; PULSE 75; RESP 20
[2019-06-10 03:47] VITALS: BP 130/72; PULSE 89; RESP 18
[2019-06-10] MEDS: DEXTROSE 5%-0.9% NACL 1,000 ML IV SCH ×4 (05:12→19:43)
[2019-06-10] MEDS ORDERED: predniSONE 20 MG TAB ONE ×2 (06:19→06:41)
[2019-06-10] MEDS ORDERED: METHYLPREDNISOLONE 125 MG INJ ONE (06:24)
[2019-06-10 07:20] VITALS: BP 113/70; PULSE 99; RESP 20
[2019-06-10] MEDS ORDERED: POTASSIUM CHLORIDE (SR) 20 MEQ TAB PO STA (07:51)
[2019-06-10] MEDS: APIXABAN 5 MG TABLET PO SCH ×2 (08:37→20:19)
[2019-06-10] MEDS: FAMOTIDINE 20 MG TAB PO SCH (08:38)
[2019-06-10 11:06] VITALS: BP 97/63; PULSE 83; RESP 20
[2019-06-10 15:07] VITALS: BP 102/63; PULSE 82; RESP 20
[2019-06-10 20:00] VITALS: BP 99/57; PULSE 76; RESP 18
[2019-06-10] MEDS: ATORVASTATIN 20 MG TAB PO SCH (20:19)
[2019-06-10] MEDS: METOPROLOL 25 MG TAB PO SCH (20:19)
[2019-06-10 23:57] VITALS: BP 95/62; PULSE 92; RESP 19
[2019-06-11] MEDS: DEXTROSE 5%-0.9% NACL 1,000 ML IV SCH ×2 (03:19→19:50)
[2019-06-11 04:00] VITALS: BP 109/60; PULSE 76; RESP 20
[2019-06-11 07:15] VITALS: BP 105/66; PULSE 79
[2019-06-11] MEDS ORDERED: POTASSIUM CHLORIDE (SR) 20 MEQ TAB PO STA (07:50)
[2019-06-11] MEDS ORDERED: MAGNESIUM SULFATE 2 GM/50 ML 50 ML IVPB ONE (08:00)
[2019-06-11] MEDS: FAMOTIDINE 20 MG TAB PO SCH (08:04)
[2019-06-11] MEDS: APIXABAN 5 MG TABLET PO SCH ×2 (08:05→19:50)
[2019-06-11] MEDS: NEUTRA-PHOS 250 MG PACKET PO SCH ×2 (08:05→19:51)
[2019-06-11] MEDS: METOPROLOL 25 MG TAB PO SCH ×2 (08:06→19:51)
[2019-06-11 11:07] VITALS: BP 103/67; PULSE 80; RESP 18
[2019-06-11 15:11] VITALS: BP 114/66; PULSE 81
[2019-06-11] MEDS: ATORVASTATIN 20 MG TAB PO SCH (19:50)
[2019-06-11 19:59] VITALS: BP 98/58; PULSE 84; RESP 22
[2019-06-12] VITALS (7 sets, daily range): BP systolic 97–121; BP diastolic 58–68; PULSE 78–98; RESP 19–20
[2019-06-12] MEDS: FAMOTIDINE 20 MG TAB PO SCH (08:41)
[2019-06-12] MEDS: APIXABAN 5 MG TABLET PO SCH ×2 (08:41→20:05)
[2019-06-12] MEDS: METOPROLOL 25 MG TAB PO SCH ×2 (08:41→20:04)
[2019-06-12] MEDS: NEUTRA-PHOS 250 MG PACKET PO SCH ×2 (08:41→20:05)
[2019-06-12] MEDS ORDERED: MAGNESIUM SULFATE 2 GM/50 ML 50 ML IVPB ONE (17:00)
[2019-06-12] MEDS ORDERED: POTASSIUM CHLORIDE (SR) 20 MEQ TAB PO ONE (17:00)
[2019-06-12] MEDS ORDERED: METOPROLOL 25 MG TAB ONE (20:00)
[2019-06-12] MEDS: ATORVASTATIN 20 MG TAB PO SCH (20:04)
[2019-06-13 04:00] VITALS: BP 100/60; PULSE 80; RESP 20
[2019-06-13 07:31] VITALS: BP 101/61; PULSE 83; RESP 20
[2019-06-13] MEDS: APIXABAN 5 MG TABLET PO SCH ×2 (09:04→20:08)
[2019-06-13] MEDS: METOPROLOL 25 MG TAB PO SCH ×2 (09:08→20:08)
[2019-06-13] MEDS: NEUTRA-PHOS 250 MG PACKET PO SCH ×2 (09:08→20:08)
[2019-06-13] MEDS: FAMOTIDINE 20 MG TAB PO SCH (09:08)
[2019-06-13 11:44] VITALS: BP 95/61; PULSE 76
[2019-06-13 15:57] VITALS: BP 94/57; PULSE 78; RESP 20
[2019-06-13 20:07] VITALS: BP 111/62; PULSE 88; RESP 18
[2019-06-13] MEDS: ATORVASTATIN 20 MG TAB PO SCH (20:08)
[2019-06-13 23:58] VITALS: BP 107/64; PULSE 78; RESP 18
[2019-06-14 03:59] VITALS: BP 105/58; PULSE 87; RESP 16
[2019-06-14 07:10] VITALS: BP 107/63; PULSE 94; RESP 19
[2019-06-14] MEDS: NEUTRA-PHOS 250 MG PACKET PO SCH ×2 (08:14→20:23)
[2019-06-14] MEDS: FAMOTIDINE 20 MG TAB PO SCH (08:14)
[2019-06-14] MEDS: APIXABAN 5 MG TABLET PO SCH ×2 (08:14→20:23)
[2019-06-14] MEDS: METOPROLOL 25 MG TAB PO SCH ×2 (08:15→20:22)
[2019-06-14] MEDS ORDERED: MAGNESIUM SULFATE 2 GM/50 ML 50 ML IVPB ONE (08:30)
[2019-06-14] MEDS: SOD CHLORIDE 0.9% 1,000 ML IV SCH (08:53)
[2019-06-14 11:00] VITALS: BP 110/66; PULSE 64; RESP 18
[2019-06-14] MEDS ORDERED: MAGNESIUM SULFATE 1 GM/D5W 100 ML IVPB ONE (11:30)
[2019-06-14 15:00] VITALS: BP 102/64; PULSE 67; RESP 19
[2019-06-14 20:00] VITALS: BP 91/57; PULSE 79; RESP 20
[2019-06-14] MEDS: ATORVASTATIN 20 MG TAB PO SCH (20:23)
[2019-06-14 23:40] VITALS: BP 104/64; PULSE 72; RESP 20
[2019-06-15] MEDS: SOD CHLORIDE 0.9% 1,000 ML IV SCH ×3 (00:44→22:06)
[2019-06-15 03:23] VITALS: BP 108/66; PULSE 78; RESP 18
[2019-06-15 07:23] VITALS: BP 114/65; PULSE 74; RESP 18
[2019-06-15] MEDS: APIXABAN 5 MG TABLET PO SCH ×2 (08:58→21:59)
[2019-06-15] MEDS: NEUTRA-PHOS 250 MG PACKET PO SCH ×2 (08:58→21:59)
[2019-06-15] MEDS: FAMOTIDINE 20 MG TAB PO SCH (08:59)
[2019-06-15] MEDS: METOPROLOL 25 MG TAB PO SCH ×2 (08:59→21:00)
[2019-06-15 11:48] VITALS: BP 102/66; PULSE 74; RESP 18
[2019-06-15 15:00] VITALS: BP 100/68; PULSE 75; RESP 18
[2019-06-15 20:08] VITALS: BP 100/63; PULSE 83; RESP 19
[2019-06-15] MEDS: ATORVASTATIN 20 MG TAB PO SCH (21:58)
[2019-06-16] VITALS (8 sets, daily range): BP systolic 86–104; BP diastolic 61–67; PULSE 75–88; RESP 18–20
[2019-06-16] MEDS: METOPROLOL 25 MG TAB PO SCH ×2 (09:00→21:00)
[2019-06-16] MEDS: APIXABAN 5 MG TABLET PO SCH ×2 (09:01→22:21)
[2019-06-16] MEDS: FAMOTIDINE 20 MG TAB PO SCH (09:01)
[2019-06-16] MEDS: NEUTRA-PHOS 250 MG PACKET PO SCH ×2 (09:01→22:21)
[2019-06-16] MEDS: ATORVASTATIN 20 MG TAB PO SCH (22:21)
[2019-06-17 03:46] VITALS: BP 103/63; PULSE 81; RESP 19
[2019-06-17 07:12] VITALS: BP 104/61; PULSE 77; RESP 20
[2019-06-17] MEDS: NEUTRA-PHOS 250 MG PACKET PO SCH ×2 (08:21→20:23)
[2019-06-17] MEDS: APIXABAN 5 MG TABLET PO SCH ×2 (08:21→20:22)
[2019-06-17] MEDS: FAMOTIDINE 20 MG TAB PO SCH (08:21)
[2019-06-17] MEDS: METOPROLOL 25 MG TAB PO SCH ×2 (08:21→20:24)
[2019-06-17 11:41] VITALS: BP 86/54; PULSE 95; RESP 20
[2019-06-17 15:27] VITALS: BP 97/66; PULSE 75; RESP 20
[2019-06-17 20:00] VITALS: BP 95/59; PULSE 88; RESP 19
[2019-06-17] MEDS: ATORVASTATIN 20 MG TAB PO SCH (20:23)
[2019-06-18] VITALS (7 sets, daily range): BP systolic 84–116; BP diastolic 52–72; PULSE 73–105; RESP 18–20
[2019-06-18] MEDS: FAMOTIDINE 20 MG TAB PO SCH (08:36)
[2019-06-18] MEDS: APIXABAN 5 MG TABLET PO SCH (08:36)
[2019-06-18] MEDS: NEUTRA-PHOS 250 MG PACKET PO SCH ×2 (08:37→20:07)
[2019-06-18] MEDS: METOPROLOL 25 MG TAB PO SCH ×2 (08:37→20:09)
[2019-06-18] MEDS: SOD CHLORIDE 0.9% 1,000 ML IV SCH ×2 (10:08→21:50)
[2019-06-18] MEDS: ATORVASTATIN 20 MG TAB PO SCH (20:07)
[2019-06-18] MEDS ORDERED: SOD CHLORIDE 0.9% 500 ML IV ONE (21:00)
[2019-06-19] MEDS: SOD CHLORIDE 0.9% 1,000 ML IV SCH ×2 (00:34→15:42)
[2019-06-19 03:53] VITALS: BP 108/67; PULSE 84; RESP 20
[2019-06-19 07:23] VITALS: BP 107/65; PULSE 85; RESP 20
[2019-06-19] MEDS: FAMOTIDINE 20 MG TAB PO SCH (08:30)
[2019-06-19] MEDS: NEUTRA-PHOS 250 MG PACKET PO SCH ×2 (08:31→20:04)
[2019-06-19 11:16] VITALS: BP 93/55; PULSE 65; RESP 20
[2019-06-19 15:31] VITALS: BP 94/57; PULSE 94; RESP 20
[2019-06-19 19:40] VITALS: BP 97/62; PULSE 92; RESP 19
[2019-06-19] MEDS: ATORVASTATIN 20 MG TAB PO SCH (20:04)
[2019-06-20] VITALS (25 sets, daily range): BP systolic 47–159; BP diastolic 21–93; PULSE 72–91; RESP 16–22
[2019-06-20] MEDS: SOD CHLORIDE 0.9% 1,000 ML IV SCH ×2 (01:28→15:50)
[2019-06-20] MEDS ORDERED: MAGNESIUM SULFATE 3 GM in DEXTROSE 5% 100 ML IVPB ONE (08:30)
[2019-06-20] MEDS: NEUTRA-PHOS 250 MG PACKET PO SCH ×2 (10:06→20:07)
[2019-06-20] MEDS: FAMOTIDINE 20 MG TAB PO SCH (10:06)
[2019-06-20] MEDS ORDERED: BUPIVACAINE 0.5% (SDV) 30 ML INJ ONE ×2 (10:31→12:55)
[2019-06-20] MEDS ORDERED: CIPROFLOXACIN 400MG/D5W 200 ML ONE (10:51)
[2019-06-20] MEDS ORDERED: metroNIDAZOLE 500 MG/NS (PMX) 100 ML IVPB ONE (10:55)
[2019-06-20] MEDS ORDERED: SUCCINYLCHOLINE CHLORIDE 100 MG/5 ML SYG IV ONE (11:26)
[2019-06-20] MEDS ORDERED: LIDOCAINE 2% (SDV) 5 ML INJ ONE (11:26)
[2019-06-20] MEDS ORDERED: GLYCOPYRROLATE 0.4 MG INJ ONE (11:26)
[2019-06-20] MEDS ORDERED: PROPOFOL 20 ML ONE (11:26)
[2019-06-20] MEDS ORDERED: ROCURONIUM 50 MG INJ ONE (11:26)
[2019-06-20] MEDS ORDERED: NEOSTIGMINE 3 MG/3 ML SYRINGE ONE (11:26)
[2019-06-20] MEDS ORDERED: MEPERIDINE 100 MG INJ ONE (12:47)
[2019-06-20] MEDS ORDERED: ONDANSETRON 4 MG INJ ONE ×2 (12:48→14:15)
[2019-06-20] MEDS ORDERED: morphine 2 MG INJ IV PRN (13:00)
[2019-06-20] MEDS: metroNIDAZOLE 500 MG/NS (PMX) 100 ML IVPB SCH ×2 (13:00→20:07)
[2019-06-20] MEDS ORDERED: MIDAZOLAM 1 MG/ML 2 ML INJ IV PRN (13:30)
[2019-06-20] MEDS ORDERED: EPHEDrine 25 MG/5 ML SYG IV PRN (13:30)
[2019-06-20] MEDS ORDERED: HYDROmorphONE 1 MG/5 ML IV SYRINGE IV PRN ×3 (13:30)
[2019-06-20] MEDS ORDERED: MEPERIDINE 25 MG INJ IV PRN (13:30)
[2019-06-20] MEDS ORDERED: DIPHENHYDRAMINE 50 MG INJ IV PRN (13:30)
[2019-06-20] MEDS ORDERED: hydrALAzine 20 MG INJ IV PRN (13:30)
[2019-06-20] MEDS ORDERED: LABETALOL HCL 20MG INJ IV PRN (13:30)
[2019-06-20] MEDS ORDERED: ONDANSETRON 4 MG INJ IV PRN (13:30)
[2019-06-20] MEDS ORDERED: METOCLOPRAMIDE 10 MG INJ IV PRN (13:30)
[2019-06-20] MEDS ORDERED: FENTAnyl 50 MCG/ML VIAL IV PRN ×3 (13:30)
[2019-06-20] MEDS: SOD CHLORIDE 0.45% 1,000 ML IV SCH ×2 (14:03→23:00)
[2019-06-20] MEDS: ONDANSETRON 4 MG INJ IV PRN (19:11)
[2019-06-20] MEDS: ACETAMINOPHEN 325 MG TAB PO PRN (19:12)
[2019-06-20] MEDS: ATORVASTATIN 20 MG TAB PO SCH (20:07)
[2019-06-20] MEDS: CIPROFLOXACIN 400MG/D5W 200 ML IVPB SCH (22:46)
[2019-06-21] MEDS: ONDANSETRON 4 MG INJ IV PRN (01:17)
[2019-06-21] MEDS: ACETAMINOPHEN 325 MG TAB PO PRN ×3 (01:17→20:38)
[2019-06-21 03:34] VITALS: BP 131/77; PULSE 87; RESP 21
[2019-06-21] MEDS: metroNIDAZOLE 500 MG/NS (PMX) 100 ML IVPB SCH (05:38)
[2019-06-21 06:58] VITALS: BP_SYST 133; BP_SYST 141; BP_DIAS 59; BP_DIAS 85; PULSE 64; PULSE 83; RESP 15; RESP 19
[2019-06-21] MEDS: SOD CHLORIDE 0.9% 1,000 ML IV SCH ×2 (08:33→20:38)
[2019-06-21] MEDS: NEUTRA-PHOS 250 MG PACKET PO SCH ×2 (09:04→20:38)
[2019-06-21] MEDS: FAMOTIDINE 20 MG TAB PO SCH (09:04)
[2019-06-21] MEDS: CIPROFLOXACIN 400MG/D5W 200 ML IVPB SCH (09:04)
[2019-06-21 11:22] VITALS: BP 135/85; PULSE 77; RESP 18
[2019-06-21 19:29] VITALS: BP 138/78; PULSE 93; RESP 21
[2019-06-21] MEDS: ATORVASTATIN 20 MG TAB PO SCH (20:38)
[2019-06-21 23:17] VITALS: BP 127/71; PULSE 88; RESP 19
[2019-06-22] VITALS (7 sets, daily range): BP systolic 114–133; BP diastolic 65–77; PULSE 81–96; RESP 18–21
[2019-06-22] MEDS: NEUTRA-PHOS 250 MG PACKET PO SCH ×2 (09:04→20:47)
[2019-06-22] MEDS: FAMOTIDINE 20 MG TAB PO SCH (09:04)
[2019-06-22] MEDS: SOD CHLORIDE 0.9% 1,000 ML IV SCH (09:04)
[2019-06-22] MEDS: SILVER SULFADIAZINE 1% 25 GM CR TOP SCH (13:33)
[2019-06-22] MEDS: NS + KCL 20 MEQ 1,000 ML IV SCH ×2 (13:33→20:56)
[2019-06-22] MEDS: ATORVASTATIN 20 MG TAB PO SCH (20:51)
[2019-06-22] MEDS: METOPROLOL 25 MG TAB PO SCH (20:51)
[2019-06-23] VITALS: BP_SYST 104; BP_SYST 116; BP_DIAS 62; BP_DIAS 72; PULSE 90; RESP 17; RESP 18
[2019-06-23] MEDS: NS + KCL 20 MEQ 1,000 ML IV SCH ×2 (07:12→17:26)
[2019-06-23 07:21] VITALS: BP 113/67; PULSE 74; RESP 18
[2019-06-23] MEDS: FAMOTIDINE 20 MG TAB PO SCH (09:03)
[2019-06-23] MEDS: NEUTRA-PHOS 250 MG PACKET PO SCH ×2 (09:03→20:47)
[2019-06-23] MEDS: SILVER SULFADIAZINE 1% 25 GM CR TOP SCH (09:04)
[2019-06-23] MEDS: METOPROLOL 25 MG TAB PO SCH ×2 (09:04→20:47)
[2019-06-23 11:57] VITALS: BP 110/73; PULSE 63; RESP 18
[2019-06-23] MEDS ORDERED: POTASSIUM CHLORIDE (SR) 20 MEQ TAB PO STA (12:26)
[2019-06-23] MEDS ORDERED: POTASSIUM CHLORIDE 20 MEQ POWDER FOR ORAL SOLN PO ONE (13:00)
[2019-06-23 14:55] VITALS: BP 120/83; PULSE 69; RESP 18
[2019-06-23 20:00] VITALS: BP 135/73; RESP 20
[2019-06-23] MEDS: ATORVASTATIN 20 MG TAB PO SCH (20:47)
[2019-06-23 23:13] VITALS: BP 131/79; PULSE 76; RESP 21
[2019-06-24 03:58] VITALS: BP 117/67; PULSE 71; RESP 20
[2019-06-24] MEDS: NS + KCL 20 MEQ 1,000 ML IV SCH ×3 (04:22→20:30)
[2019-06-24 07:13] VITALS: BP 115/77; PULSE 82; RESP 20
[2019-06-24] MEDS: POTASSIUM CHLORIDE (SR) 20 MEQ TAB PO STA ×2 (08:16→08:19)
[2019-06-24] MEDS: SILVER SULFADIAZINE 1% 25 GM CR TOP SCH (08:16)
[2019-06-24] MEDS: METOPROLOL 25 MG TAB PO SCH ×2 (08:16→21:11)
[2019-06-24] MEDS: FAMOTIDINE 20 MG TAB PO SCH (08:16)
[2019-06-24] MEDS ORDERED: POTASSIUM CHLORIDE (SR) 20 MEQ TAB PO STA (08:24)
[2019-06-24] MEDS ORDERED: POTASSIUM CHLORIDE 20 MEQ POWDER FOR ORAL SOLN PO ONE (08:30)
[2019-06-24] MEDS: NEUTRA-PHOS 250 MG PACKET PO SCH ×2 (09:00→21:12)
[2019-06-24 11:14] VITALS: BP 118/70; RESP 20
[2019-06-24 15:25] VITALS: BP 151/82; PULSE 69; RESP 20
[2019-06-24 20:03] VITALS: BP 153/78; PULSE 75; RESP 18
[2019-06-24] MEDS: ATORVASTATIN 20 MG TAB PO SCH (21:11)
[2019-06-25 00:10] VITALS: BP 136/74; PULSE 73; RESP 18
[2019-06-25 04:30] VITALS: BP 142/86; PULSE 83; RESP 18
[2019-06-25 07:07] VITALS: BP 144/82; PULSE 69; RESP 18
[2019-06-25] MEDS ORDERED: POTASSIUM CHLORIDE (SR) 20 MEQ TAB PO STA (07:42)
[2019-06-25] MEDS ORDERED: POTASSIUM CHLORIDE 20 MEQ POWDER FOR ORAL SOLN PO ONE (08:30)
[2019-06-25] MEDS: METOPROLOL 25 MG TAB PO SCH ×2 (08:55→20:08)
[2019-06-25] MEDS: FAMOTIDINE 20 MG TAB PO SCH (08:55)
[2019-06-25] MEDS: SILVER SULFADIAZINE 1% 25 GM CR TOP SCH (08:56)
[2019-06-25] MEDS: NEUTRA-PHOS 250 MG PACKET PO SCH ×2 (08:56→20:08)
[2019-06-25 11:15] VITALS: BP 125/79; PULSE 68; RESP 18
[2019-06-25 15:06] VITALS: BP 138/86; PULSE 78; RESP 20
[2019-06-25 20:06] VITALS: BP 145/88; PULSE 71; RESP 18
[2019-06-25] MEDS: ATORVASTATIN 20 MG TAB PO SCH (20:09)
[2019-06-26] VITALS (7 sets, daily range): BP systolic 132–151; BP diastolic 76–95; PULSE 60–80; RESP 18–19
[2019-06-26] MEDS ORDERED: POTASSIUM CHLORIDE 100 ML IVPB SCH (07:00)
[2019-06-26] MEDS: NEUTRA-PHOS 250 MG PACKET PO SCH ×2 (08:02→20:21)
[2019-06-26] MEDS: FAMOTIDINE 20 MG TAB PO SCH (08:02)
[2019-06-26] MEDS: METOPROLOL 25 MG TAB PO SCH ×2 (08:03→20:22)
[2019-06-26] MEDS: SILVER SULFADIAZINE 1% 25 GM CR TOP SCH (08:03)
[2019-06-26] MEDS ORDERED: POTASSIUM CHLORIDE (SR) 10 MEQ TAB PO ONE ×2 (08:30→12:30)
[2019-06-26] MEDS ORDERED: MAGNESIUM SULFATE 3 GM in DEXTROSE 5% 100 ML IVPB ONE ×2 (09:00→10:00)
[2019-06-26] MEDS: ATORVASTATIN 20 MG TAB PO SCH (20:22)
[2019-06-27 03:54] VITALS: BP 129/78; PULSE 70; RESP 18
[2019-06-27 07:08] VITALS: BP 129/83; PULSE 79; RESP 19
[2019-06-27] MEDS ORDERED: POTASSIUM CHLORIDE (SR) 20 MEQ TAB PO STA (07:24)
[2019-06-27] MEDS: FAMOTIDINE 20 MG TAB PO SCH (07:52)
[2019-06-27] MEDS: NEUTRA-PHOS 250 MG PACKET PO SCH (07:52)
[2019-06-27] MEDS: METOPROLOL 25 MG TAB PO SCH (07:53)
[2019-06-27] MEDS: SILVER SULFADIAZINE 1% 25 GM CR TOP SCH (07:53)
[2019-06-27 11:18] VITALS: BP 121/75; PULSE 67; RESP 18
[2019-06-27 15:05] VITALS: BP 159/90; PULSE 79; RESP 19
== END 2019-06-27 17:30 | disposition home health service (06) | DRG 673 ==
LOC: FTE 19:46 → 6WM 06-06 01:41
PROVIDERS: ADMIT Internal Medicine; ATTEND Internal Medicine
PROC: 0DN80ZZ Release Small Intestine, Open Approach (ICD-10-PCS; 2019-06-20)
PROC: 0DBB0ZZ Excision of Ileum, Open Approach (ICD-10-PCS; principal; 2019-06-20 11:30)
PROC: 30233N1 Transfusion of Nonautologous Red Blood Cells into Peripheral Vein, Percutaneous Approach (ICD-10-PCS; 2019-06-24)
DX: N17.0 Acute kidney failure with tubular necrosis (principal); I50.33 Acute on chronic diastolic (congestive) heart failure; I13.0 Hypertensive heart and chronic kidney disease with heart failure and stage 1 through stage 4 chronic kidney disease, or unspecified chronic kidney disease; E87.1 Hypo-osmolality and hyponatremia; E87.3 Alkalosis; D68.69 Other thrombophilia; D62 Acute posthemorrhagic anemia; D64.9 Anemia, unspecified; E87.8 Other disorders of electrolyte and fluid balance, not elsewhere classified; E83.39 Other disorders of phosphorus metabolism; E86.9 Volume depletion, unspecified; E87.5 Hyperkalemia; G47.33 Obstructive sleep apnea (adult) (pediatric); I48.0 Paroxysmal atrial fibrillation; N18.9 Chronic kidney disease, unspecified; R33.8 Other retention of urine; R94.31 Abnormal electrocardiogram [ECG] [EKG]; Z93.2 Ileostomy status; Z92.21 Personal history of antineoplastic chemotherapy; Z90.49 Acquired absence of other specified parts of digestive tract; Z85.038 Personal history of other malignant neoplasm of large intestine; Z86.718 Personal history of other venous thrombosis and embolism; Z87.891 Personal history of nicotine dependence
CPT/HCPCS: 36430; 71045; 74280; 76775; 80048; 80053; 81001; 81003; 82043; 83735; 83880; 84100; 84155; 84300; 84484; 85025; 86850; 86900; 86901; 86920; 87086; 88304; 93005; 97162; A4310; J0744; J2175; J2405; J2710; J2930; J3475; J3480; J7030; J7040; J7042; J7512; P9016

== ENCOUNTER 2019-07-09 19:15 | Emergency (ER) | payer OTHER ==
[~2019-07-09] VITALS: Ht 162.6 cm; Wt 81.9 kg
[~2019-07-09 19:15] MED LIST changes: -CLON1PAT3 TRANSDERM; -FLUD0.1T10 PO; -LACT-135 PO; -MUPI22OI2 TOP; -PRED20TA PO
[2019-07-09 19:26] VITALS: Ht 162.6 cm; Wt 81.9 kg
[2019-07-09 20:17] VITALS: BP 144/81; PULSE 81; RESP 20
== END 2019-07-09 20:20 | disposition home or self-care (01) ==
LOC: E/R 19:15
DX: Z48.01 Encounter for change or removal of surgical wound dressing (principal)
CPT/HCPCS: 99281